=== PATIENT | female | born 1955 | race Caucasian/White ===

== ENCOUNTER → 2017-09-06 | Outpatient (CLI) | payer OTHER ==
[~2017-09-06] MED LIST: ACET-24 PO; ALBUAER2 INH; ASPEC325 PO; CLB200 PO; CYCL10TA6 PO; DIAZ-165 PO; ONDA8TAB6 PO; OXGN; RXC5 PO; SENN-61 PO; SERT-234 PO; TEMA30CA4 PO; TRAM-10 PO; UMEC1AER PO; nebulizer
--- NOTE | 2017-09-06 10:39 | DIAGNOSTIC IMAGING REPORT ---
LEG LENGTH STUDY (WHOLE LEG) HISTORY: 61 years-old Female LEG LENGTH STUDY... Acute left leg pain COMPARISON: PET CT 01/23/2012 TECHNIQUE: 5 radiographs from a leg length study were obtained and submitted for review. FINDINGS: There is avascular arthrosis of the left femoral head with partial articular collapse. Mild degenerative changes about the bilateral femoral acetabular joints. No acute fracture or subluxation is identified. Degenerative changes are also noted within the lower lumbar spine. There are phleboliths of the pelvis. The left lower extremity measured from the femoral head to the tibial plafond measures 84.0 cm. The right lower extremity measured from the femoral head to the tibial plafond measures 84.1 cm. IMPRESSION: 1. Avascular necrosis of the left femoral head with partial articular collapse. 2. Minimal leg length discrepancy as above. The above report was generated using voice recognition software. It may contain grammatical, syntax or spelling errors. Electronically signed by: Braden Rivers M.D. 09/06/2017 10:37 AM Dictated Date/Time: 09/06/2017 10:32 AM
== END | disposition home or self-care (01) ==
LOC: C.RAD 09:35
PROVIDERS: ATTEND Orthopaedic Surgery
DX: M87.052 Idiopathic aseptic necrosis of left femur (principal)

== ENCOUNTER 2017-09-11 04:48 | Inpatient (IN) | payer OTHER ==
[2017-08-18 10:30] VITALS: BMI 26.0
--- NOTE | 2017-08-18 11:12 | PAT Medication Instructions ---
Service Date Aug 18, 2017. Current Home Medication List Albuterol (Ventolin), 2 PUFFS INH QID PRN for SOB/Wheezing Cyclobenzaprine Hcl (Flexeril), 1 TAB PO HS Diazepam (Valium), 5 MG PO QPM Home O2 Therapy (Oxygen), 2 LITERS NA PRN PRN for Shortness of Breath Sertraline (Zoloft), 200 MG PO QAM Temazepam (Restoril), 30 MG PO HS Tramadol (Ultram), 50 MG PO Q6 PRN for Pain Umeclidinium-Vilanterol (Anoro Ellipta 62.5-25 Mcg/INH), 1 PUFF PO QAM Medication Instructions For Your Scheduled Surgery -Continue as directed: Home O2 Therapy (Oxygen), 2 LITERS NA PRN PRN for Shortness of Breath - Take the following medications the morning of surgery with a sip of water: Albuterol (Ventolin), 2 PUFFS INH QID PRN for SOB/Wheezing (if needed, and bring it with you to the hospital) Sertraline (Zoloft), 200 MG PO QAM Tramadol (Ultram), 50 MG PO Q6 PRN for Pain (if needed, can be taken up to four hours before surgery) Umeclidinium-Vilanterol (Anoro Ellipta 62.5-25 Mcg/INH), 1 PUFF PO QAM - Take the following medications as scheduled the night before surgery: Albuterol (Ventolin), 2 PUFFS INH QID PRN for SOB/Wheezing (if needed) Cyclobenzaprine Hcl (Flexeril), 1 TAB PO HS Diazepam (Valium), 5 MG PO QPM Temazepam (Restoril), 30 MG PO HS If you have any questions please call us at [phone] or [phone] or [phone]
[2017-08-18 12:15] LABS: PTT PATIENT 26.4 SECONDS (21.0-31.0)
[2017-08-18 12:44] LABS: HEMOGLOBIN A1C 5.5 % (4.5-5.6)
--- NOTE | 2017-08-24 11:47 | HISTORY & PHYSICAL EXAMINATION ---
DATE OF ADMISSION: 09/11/2017 CHIEF COMPLAINT: Left hip pain. HISTORY OF PRESENT ILLNESS: Ms. Ruiz is a 61-year-old female with a 3-month history of a sudden onset of hip pain. The patient had an MRI, which revealed significant avascular necrosis of the left hip. The patient is essentially wheelchair bound. She does use a cane when she is ambulating. She has done physical therapy and takes tramadol with minimal relief. She has failed conservative treatment and is scheduled for a left hip replacement. PAST MEDICAL HISTORY: Emphysema and anxiety. She denies heart disease, diabetes or DVT. PAST SURGICAL HISTORY: Hysterectomy. SOCIAL HISTORY: The patient denies alcohol or tobacco use. She lives in a [place] home. She is and retired. FAMILY HISTORY: Negative for DVT. MEDICATIONS: Ventolin HFA 90 mcg 2 puffs q. 4-6 hours p.r.n., temazepam 30 mg at bedtime, sertraline 100 mg daily, diazepam 5 mg b.i.d., tramadol 50 mg q. 6 hours p.r.n., cyclobenzaprine 5 mg t.i.d. ALLERGIES: None. REVIEW OF SYSTEMS: See HPI. Ten other systems reviewed, all negative. PHYSICAL EXAMINATION: VITAL SIGNS: Height 5 feet 3 inches, weight 150 pounds, BMI 27. GENERAL: This is a well-developed, well-nourished female who is alert and oriented x3. Mood and affect are appropriate. HEENT: Normocephalic, atraumatic. Mucous membranes are moist and intact. NECK: Supple without lymphadenopathy. HEART: Regular rate and rhythm without murmurs, rubs or gallops. LUNGS: Clear to auscultation without wheezes or rhonchi. ABDOMEN: Soft and nontender. Bowel sounds are equal and active. EXTREMITIES: No ecchymosis, redness or warmth. Thigh and calf are soft and nontender. Log roll of the hip reproduces pain in the groin. She is neurovascularly intact with +5/5 strength. She has full plantar and dorsiflexion. X-RAY EXAMINATION: AP and lateral views show mild joint space narrowing and osteophyte formation. AVN is confirmed on MRI with severe cystic changes. IMPRESSION: Mild degenerative joint disease, left hip with avascular necrosis. PLAN: The patient will be admitted for a left total hip arthroplasty, anterior approach. We will plan on aspirin for DVT prophylaxis. The patient will have [facility] for home physical therapy upon discharge. INGRID
[2017-09-11] VITALS (13 sets, daily range): BP systolic 94–128; BP diastolic 58–78; PULSE 80–93; TEMP 36.6–37.1; O2SAT 92–99; Ht 160 cm; Wt 67.6 kg
[~2017-09-11] VITALS: Ht 160 cm; Wt 67.6 kg
[~2017-09-11 04:48] MED LIST changes: -ACET-24 PO; -ASPEC325 PO; -CLB200 PO; -ONDA8TAB6 PO; -RXC5 PO; -SENN-61 PO; -nebulizer
[2017-09-11] MEDS ORDERED: nebulizer (05:44)
[2017-09-11] MEDS ORDERED: ROPIVACAINE 5MG/ML 30 ML 150 MG, BUPIVACAINE 0.5% MPF INJ 30 ML, EpINEphrine HCL INJ 0.... INFIL SCH ×8 (06:00)
[2017-09-11] MEDS ORDERED: CEFAZOLIN 2000MG IV PUSH 15 ML IV SCH (06:00)
[2017-09-11] MEDS ORDERED: LACTATED RINGER'S 1000ML 500 ML IV SCH (06:00)
[2017-09-11] MEDS ORDERED: DEXAMETHASONE 4 MG TAB PO SCH (06:00)
[2017-09-11] MEDS ORDERED: CEFAZOLIN 1000MG IV PUSH 7.5 ML IV SCH (06:00)
[2017-09-11] MEDS ORDERED: CeleBREX 200 MG CAP PO SCH (06:00)
[2017-09-11] MEDS ORDERED: GABAPENTIN 600 MG PO SCH (06:00)
[2017-09-11] MEDS ORDERED: FAMOTIDINE 20 MG TAB PO SCH (06:00)
[2017-09-11] MEDS ORDERED: LACTATED RINGER'S 1000ML 1,000 ML IV SCH (06:00)
[2017-09-11] MEDS ORDERED: ACETAMINOPHEN 500 MG TAB PO SCH (06:00)
[2017-09-11] MEDS ORDERED: METOCLOPRAMIDE HCL 10 MG TAB PO SCH (06:00)
[2017-09-11] MEDS: TRANEXAMIC ACID INJ 1,000 MG x 2 Bags IV SCH ×4 (06:30→06:54)
[2017-09-11] MEDS ORDERED: ORTHO JOINT ANESTHETIC ONE (06:34)
[2017-09-11] MEDS ORDERED: BACITRACIN 50000 UNIT VIAL ONE (06:34)
[2017-09-11] MEDS ORDERED: POVIDONE-IODINE OP SOLN 30 ML BTL ONE (06:34)
[2017-09-11] MEDS ORDERED: BUPIVACAINE 0.5 % 5 MG/1 ML PF 10ML VIAL ONE (06:37)
[2017-09-11] MEDS ORDERED: MIDAZOLAM HCL 1 MG/ML 2ML VIAL ONE (06:41)
[2017-09-11] MEDS ORDERED: ATROPINE SULFATE 0.1 MG/ML 5ML SYR IV PRN (06:45)
[2017-09-11] MEDS ORDERED: FENTANYL CITRATE INJ 50 MCG/1 ML 2 ML VIAL IV PRN (06:45)
[2017-09-11] MEDS ORDERED: EpHEDrine SULFATE INJ 50 MG/ML AMP IV PRN (06:45)
[2017-09-11] MEDS ORDERED: ALBUT/IPRATROP 3MG/0.5MG NEB 3 ML VIAL INH ONE (06:45)
--- NOTE | 2017-09-11 07:02 | History & Physical Bridge Note ---
H&P Re-Evaluation Bridge Note: I have examined the patient, reviewed the History & Physical and in the interval since the performance of the History & Physical I have noted the following changes of clinical significance: No changes noted
[2017-09-11] MEDS ORDERED: PROPOFOL IV EMULSION 10 MG/ML 20 ML VIAL IV ONE ×2 (07:38→09:01)
[2017-09-11] MEDS ORDERED: PHENYLEPHRINE 100MCG/ML 5ML SYR ONE ×2 (07:38→08:42)
[2017-09-11] MEDS ORDERED: LIDOCAINE HCL 2% 2 ML VIAL (20MG/ML) ONE (07:38)
[2017-09-11] MEDS ORDERED: PHENYLEPHRINE HCL INJ 10 MG/ML VIAL ONE (08:42)
--- NOTE | 2017-09-11 09:39 | [facility] Post Operative Brief Note ---
Immediate Operative Summary Operative Date Sep 11, 2017. Pre-Operative Diagnosis Mild Degenerative Joint Disease Left Hip with Avascular Necrosis Post-Operative Diagnosis Mild Degenerative Joint Disease Left Hip with Avascular Necrosis Procedure(s) Performed Left Total Anterior Hip Arthroplasty--Uncemented Surgeon Dr. Varma Entry Writer Surgeon(s) [place] [place] Estimated Blood Loss 125 ml Findings Consistent with Post-Op Diagnosis Fluids (cc crystalloids) 1700 Specimens A. Left Femoral Head Drains None Anesthesia Type MAC Spinal Regional Complication(s) none Disposition Disposition: Recovery Room / PACU
[2017-09-11] MEDS ORDERED: CEFAZOLIN IV 1,000 MG in DEXTROSE 5% 50ML 50 ML IV SCH (10:00)
[2017-09-11] MEDS ORDERED: MoRPHine SULFATE 4 MG/ML 1 ML CARP\\VIAL IV PRN (10:00)
[2017-09-11] MEDS ORDERED: ONDANSETRON INJ 2 MG/ML 2 ML VIAL IV PRN (10:00)
--- NOTE | 2017-09-11 10:07 | [facility] Operative Report ---
Operative Report Operative Date Sep 11, 2017. Pre-Operative Diagnosis Degenerative Joint Disease Left Hip with Avascular Necrosis Post-Operative Diagnosis Degenerative Joint Disease Left Hip with Avascular Necrosis Procedure(s) Performed Left Total Anterior Hip Arthroplasty--Uncemented Surgeon Dr. Varma Caretaker Resort Surgeon(s) [place] Estimated Blood Loss 125 ml Findings see dictated op note Fluids 1700 Specimens A. Left Femoral Head Drains None Anesthesia Type MAC Spinal Regional Complication(s) none Disposition Recovery Room / PACU Indications The patient is a 62-year-old female who presents with debilitating pain secondary to severe left hip AVN. She is mainly isolated to a wheelchair at the time and is unable to bear weight secondary to pain. Radiographically she presents with severe AVN, cortical irregularity of the femoral head and has failed conservative treatment measures including pain control, bisphosphonates, activity modification and protected weightbearing with the use of a cane and wheelchair. The pain is localized to the groin and is increased with activity and weightbearing. It has severely affected and limited her daily activities. She demonstrates painful passive range of motion and limited range of motion, and walks with a severe limp and is fearful of falling. I have indicated her for left anterior total hip arthroplasty. The risks and benefits and complications of total hip replacement include but not limited to blood clots, infection, dislocation, leg length discrepancy, injury to nerve, bone, muscle- tendon, vessels, surrounding soft tissue, failure of the prosthesis, need for additional surgery and . The patient wished to proceed with replacement of the left hip and informed consent was obtained at this time. Description of Procedure COMPONENTS USED: [employer] hip system: Acetabulum size 52, femur size 10 high offset, femoral head is 36, liner 36 x 52, acetabular screw 25 and 20. DESCRIPTION OF PROCEDURE: Following satisfactory spinal, the patient was supine. The right leg was placed in the well leg bolden and the left leg in the traction device. The left leg was prepared with ChloraPrep and draped sterilely. Following a surgical time-out, an anterior approach in the interval between the sartorius and tensor muscles was completed. Circumflex femoral vessels were identified and ligated and anterior capsulotomy was performed revealing the arthritic femoral neck and head. A femoral neck cut was made with reciprocating saw and the bone fragments removed. The acetabular self- retraining retractor was placed. Acetabular reaming was completed under fluoroscopic guidance, a 52 shell was impacted into an anatomic position and secured with a dome screw. Local anesthetic was placed and following irrigation , the polyethylene liner was placed. The femur was placed into position of external rotation, extension and adduction. Femoral canal was prepared up to the size 10 high offset. Trial reduction with a +0 neck length head showed good soft tissue tension, leg lengths restored, and good fit and fill of the proximal canal using fluoroscopic landmarks. The hip was dislocated. The trial component was removed. The final implant was placed. The hip was irrigated and reduced. A Betadine soak was performed. After 3 minutes, the Betadine was irrigated. More local anesthetic was injected in the surround soft tissues. The capsule was then closed with 1-0 Vicryl interrupted. The fascia was closed with a running suture of #1 Vicryl, the subcutaneous tissues with 1 and 2-0 Vicryl and the skin with a running subcuticular stitch of 3-0 V-Loc. Dermabond and a dry dressing were applied. The patient tolerated the procedure well and was transported to PACU in stable condition. Due to the complex nature of the procedure, the entire surgery was performed with the operational assistance of Waleska Llamas PA-C. The assistant golf course superintendent, under direct supervision, was involved in the actual performance of all aspects of the surgical procedure including hemostasis, tissue retraction and incision, instrument management, patient positioning, and wound closure. I attest to the content of the Intraoperative Record and any orders documented therein. Any exceptions are noted below.
--- NOTE | 2017-09-11 10:49 | DIAGNOSTIC IMAGING REPORT ---
SINGLE VIEW PELVIS; SINGLE VIEW LEFT HIP CLINICAL HISTORY: Postoperative examination. FINDINGS: An AP portable view of the hips and pelvis with a crosstable lateral portable view of the left hip are obtained. A bipolar left hip arthroplasty is in near-anatomic alignment. At least 2 cortical lag screws transfix the acetabular cup. No acute fracture is identified. There are expected postoperative changes overlying the left hip including subcutaneous gas and soft tissue swelling. Degenerative sclerosis is noted at the pubic symphysis. IMPRESSION: Expected postoperative findings status post left hip arthroplasty. No acute fracture is seen. Electronically signed by: Logan Munson M.D. 09/11/2017 10:47 AM Dictated Date/Time: 09/11/2017 10:46 AM
--- NOTE | 2017-09-11 12:09 | DIAGNOSTIC IMAGING REPORT ---
L HIP UNILATERAL 1 VIEW CLINICAL HISTORY: LEFT ANTERIOR HIP COMPARISON: None. Discussion: Total left hip prosthetic in good position on this single AP projection. IMPRESSION: Total left hip prosthetic in good position The above report was generated using voice recognition software. It may contain grammatical, syntax or spelling errors. Electronically signed by: Antoine Dolan M.D. 09/11/2017 12:07 PM Dictated Date/Time: 09/11/2017 12:07 PM
--- NOTE | 2017-09-11 12:24 | Anesthesiology Progress Note ---
Anesthesia Post Op Note Date & Time Sep 11, 2017 at 12:24 Vital Signs Pain Intensity: 0.0 Vital Signs Past 12 Hours Date Time Temp Pulse Resp B/P (MAP) Pulse Ox O2 Delivery O2 Flow Rate FiO2 09/11/17 12:13 94 Nasal Cannula 3.0 09/11/17 11:55 Nasal Cannula 09/11/17 11:55 Nasal Cannula 3.0 09/11/17 11:55 37.1 82 20 94/58 (70) 95 Nasal Cannula 3.0 09/11/17 11:40 37.1 84 19 109/65 95 Nasal Cannula 3 09/11/17 11:30 88 17 121/83 94 Nasal Cannula 3 09/11/17 11:20 83 24 92/61 (63) 94 Nasal Cannula 3 09/11/17 11:10 80 20 93/57 (70) 93 Nasal Cannula 3 09/11/17 11:00 79 20 93/57 (62) 95 Nasal Cannula 3 09/11/17 10:50 80 18 93/58 (62) 92 Nasal Cannula 3 09/11/17 10:40 36.1 80 19 99/59 (63) 94 Nasal Cannula 3 09/11/17 10:30 79 18 94/58 (71) 92 Nasal Cannula 2 09/11/17 10:20 89 24 99/54 (77) 97 Oxymask 10 09/11/17 10:10 77 20 107/67 98 Oxymask 10 09/11/17 10:03 37.0 76 18 101/57 96 Oxymask 10 09/11/17 06:55 86 20 96 Nasal Cannula 1.0 09/11/17 05:40 36.7 92 20 128/78 92 Nasal Cannula 1 Notes Mental Status: alert / awake / arousable, participated in evaluation Pt Amnestic to Procedure: Yes Nausea / Vomiting: adequately controlled Pain: adequately controlled Airway Patency, RR, SpO2: stable & adequate BP & HR: stable & adequate Hydration State: stable & adequate Neuraxial Anesthesia: was administered, sensory block is resolving Anesthetic Complications: no major complications apparent
--- NOTE | 2017-09-11 13:42 | Orthopedic Progress Note ---
Orthopedic Progress Note Date of Service Sep 11, 2017. Subjective Additional Notes: Postoperative progress note Patient seen lying in bed comfortably, no acute issues, pain well controlled. Denies shortness of breath chest pain fevers chills nausea vomiting. Objective No apparent distress, alert and oriented 3 Left lower extremity: Neurovascular sensory intact, positive EHL/FHL/GS/TA, sensory intact to light touch grossly, +2 dorsalis pedis pulse, compartments soft nontender, dressing clean dry and intact. Date Time Temp Pulse Resp B/P (MAP) Pulse Ox O2 Delivery O2 Flow Rate FiO2 09/11/17 12:56 89 18 111/63 (79) 97 Nasal Cannula 2.0 09/11/17 12:25 36.6 86 16 101/67 (78) 97 Nasal Cannula 3.0 09/11/17 12:13 94 Nasal Cannula 3.0 09/11/17 11:55 Nasal Cannula 09/11/17 11:55 Nasal Cannula 3.0 09/11/17 11:55 37.1 82 20 94/58 (70) 95 Nasal Cannula 3.0 09/11/17 11:40 37.1 84 19 109/65 95 Nasal Cannula 3 09/11/17 11:30 88 17 121/83 94 Nasal Cannula 3 09/11/17 11:20 83 24 92/61 (63) 94 Nasal Cannula 3 09/11/17 11:10 80 20 93/57 (70) 93 Nasal Cannula 3 09/11/17 11:00 79 20 93/57 (62) 95 Nasal Cannula 3 09/11/17 10:50 80 18 93/58 (62) 92 Nasal Cannula 3 09/11/17 10:40 36.1 80 19 99/59 (63) 94 Nasal Cannula 3 09/11/17 10:30 79 18 94/58 (71) 92 Nasal Cannula 2 09/11/17 10:20 89 24 99/54 (77) 97 Oxymask 10 09/11/17 10:10 77 20 107/67 98 Oxymask 10 09/11/17 10:03 37.0 76 18 101/57 96 Oxymask 10 09/11/17 06:55 86 20 96 Nasal Cannula 1.0 09/11/17 05:40 36.7 92 20 128/78 92 Nasal Cannula 1 Assessment & Plan Assessment: Status post left anterior total hip arthroplasty Plan: -Ancef x 24 -DVT PPX - ASA 325 BID -WBAT LLE -PT/OT -PO XR: Well aligned, well fixed total hip prothesis, without fx or dislocation. -AM labs -DC planning
--- NOTE | 2017-09-11 14:22 | DIAGNOSTIC IMAGING REPORT ---
SINGLE VIEW CHEST CLINICAL HISTORY: Avascular necrosis of the hip. FINDINGS: An AP, portable, upright chest radiograph is compared to study dated 07/28/2015 and correlated with chest CT dated 08/14/2013. The examination is degraded by portable technique and patient rotation. The heart is normal for projection. There are numerous calcified mediastinal and hilar lymph nodes. Hilar adenopathy is not excluded. Numerous calcified granulomas are observed. Advanced emphysema is observed. There is diffuse interstitial thickening and nodularity with areas of massive fibrosis identified in the mid to upper lungs. This has progressed from the 07/28/2015 examination. There is no convincing evidence of superimposed airspace consolidation. No large pleural effusion is identified. No pneumothorax is seen. The skeletal structures are osteopenic. The bony thorax is grossly intact. IMPRESSION: 1. Emphysema. 2. Extensive chronic parenchymal abnormalities as detailed above. This has progressed from 2015, and the appearance suggests progressive massive fibrosis. Clinical correlation will be essential. 3. There is no convincing evidence of superimposed airspace consolidation. Electronically signed by: Logan Munson M.D. 09/11/2017 2:20 PM Dictated Date/Time: 09/11/2017 2:17 PM
[2017-09-11] MEDS: ACETAMINOPHEN 500 MG TAB PO SCH ×2 (14:49→22:24)
[2017-09-11] MEDS: CEFAZOLIN IV 1,000 MG in SYRINGE 0 ML IV SCH ×2 (14:50→22:25)
[2017-09-11] MEDS: KETOROLAC TROMETHAMINE 30 MG/ML VIAL IV. SCH ×2 (15:37→22:24)
--- NOTE | 2017-09-11 15:59 | Medical Consult ---
Consultation Date of Consultation: Sep 11, 2017. Attending Physician: Joe Varma D.O. History of Present Illness 61 years old female with pmhx of emphysema and COPD. remote smoker quit 10 years ago. she had progressive arthritis and failed conservative management. 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 she presented to the hospital for an elective left arthroplasty. she also complained of right sided pleuritic chest pain lasted few seconds, happened multiple times today. on further questioning she reported thick intermittent bloody mucous for the past two weeks. with cough. denies any fever or chills the rest of ROS is negative Social History Smoking Status: Former Smoker Marital Status: Occupation Status: unemployed Allergies Coded Allergies: No Known Allergies (Verified , 09/11/17) Current Inpatient Medications Current Inpatient Medications Medications (Trade) Dose Ordered Sig/Michelle Route Start Time Stop Time Status Last Admin Dose Admin Lactated Ringer's 1,000 ml @ 15 mls/hr Q24H IV 09/11/17 06:00 09/12/17 05:59 Cefazolin Sodium 15 ml @ 3.75 mls/ min PREOP IV 09/11/17 06:00 09/11/17 18:00 09/11/17 07:05 3.75 MLS/MIN Acetaminophen (Tylenol Tab) 1,000 mg PREOP PO 09/11/17 06:00 09/11/17 18:00 09/11/17 05:49 1,000 MG Celecoxib (CeleBREX CAP) 200 mg PREOP PO 09/11/17 06:00 09/11/17 18:00 09/11/17 05:48 200 MG Dexamethasone (Decadron Tab) 8 mg PREOP PO 09/11/17 06:00 09/11/17 18:00 09/11/17 05:48 8 MG Famotidine (Pepcid Tab) 20 mg PREOP PO 09/11/17 06:00 09/11/17 18:00 09/11/17 05:49 20 MG Gabapentin (Neurontin Cap) 600 mg PREOP PO 09/11/17 06:00 09/11/17 18:00 09/11/17 05:49 600 MG Metoclopramide HCl (Reglan Tab) 10 mg PREOP PO 09/11/17 06:00 09/11/17 18:00 09/11/17 05:49 10 MG Albuterol (Ventolin Hfa Inhaler) 2 puffs QID PRN INH 09/11/17 10:00 10/11/17 09:59 Sertraline HCl (Zoloft Tab) 200 mg QAM PO 09/12/17 09:00 10/12/17 08:59 Temazepam (Restoril Cap) 30 mg HS PO 09/11/17 21:00 10/11/17 20:59 Sodium Chloride 1,000 ml @ 100 mls/hr Q10H IV 09/11/17 12:45 09/12/17 12:44 Ketorolac Tromethamine (Toradol Inj) 30 mg Q6H IV. 09/11/17 16:00 09/12/17 15:59 Celecoxib (CeleBREX CAP) 200 mg BID PO 09/12/17 21:00 10/12/17 20:59 Oxycodone HCl (Roxicodone Immediate Rel Tab) 1 TABLET FOR PAIN RATING... Q4H PRN PO 09/11/17 10:00 09/25/17 09:59 Morphine Sulfate (MoRPHine SULFATE INJ) 4 mg Q4 PRN IV 09/11/17 10:00 09/25/17 09:59 Acetaminophen (Tylenol Tab) 1,000 mg Q8H PO 09/11/17 14:00 10/11/17 13:59 09/11/17 14:49 1,000 MG Senna (Senokot Tab) 17.2 mg HS PO 09/11/17 21:00 10/11/17 20:59 Docusate Sodium (coLACE CAP) 100 mg BID PO 09/11/17 21:00 10/11/17 20:59 Diphenhydramine HCl (Benadryl Cap) 25 mg Q8H PRN PO 09/11/17 10:00 10/11/17 09:59 Multivitamins (Multivitamin Tab) 1 tab QAM PO 09/12/17 09:00 10/12/17 08:59 Ondansetron HCl (Zofran Inj) 4 mg Q6H PRN IV 09/11/17 10:00 10/11/17 09:59 Aspirin (Ecotrin Tab) 325 mg BID PO 09/11/17 21:00 10/11/17 20:59 Cefazolin Sodium 1000 mg/Syringe 7.5 ml @ 2.5 mls/min Q8H IV 09/11/17 15:00 09/11/17 23:02 09/11/17 14:50 2.5 MLS/MIN Levofloxacin 500 mg/Prmx 100 ml @ 100 mls/hr Q24H IV 09/11/17 15:45 09/18/17 15:44 UNV Review of Systems Review of system Constitutional: No fever / no chills / no sweats / no weakness / no fatigue Eyes: no blurring of vision / no eye pain / no discharge / no redness ENT: no hearing loss / no epistaxis /no swallowing problems Respiratory: + hemoptysis/ cough / no wheezing / no SOB / no hemoptysis Cardiovascular: pleuritic Chest pain / no lower extremity edema / no palpitation Abdomen: no pain / no nausea / no vomiting / no constipation Musculoskeletal: no joint pain / no muscle pain / no joint swelling Genitourinary: no dysuria / no incontinence / no urinary retention Neurologic: no focal weakness / no numbness/tingling / no ataxia Psychiatric: no depression symptoms / no anxiety / no insomnia Endocrine: no excessive thirst / no excessive urination Hematologic: no abnormal bleeding / no bruising / no LN swelling Skin: No rash / no pallor Physical Exam Date Time Temp Pulse Resp B/P (MAP) Pulse Ox O2 Delivery O2 Flow Rate FiO2 09/11/17 15:01 36.8 93 16 119/61 (80) 97 Nasal Cannula 2.0 09/11/17 13:55 36.6 88 16 110/66 (81) 96 Nasal Cannula 3.0 09/11/17 13:55 92 18 98/68 (78) 96 2.0 09/11/17 12:56 89 18 111/63 (79) 97 Nasal Cannula 2.0 09/11/17 12:25 36.6 86 16 101/67 (78) 97 Nasal Cannula 3.0 09/11/17 12:13 94 Nasal Cannula 3.0 09/11/17 11:55 Nasal Cannula 09/11/17 11:55 Nasal Cannula 3.0 09/11/17 11:55 37.1 82 20 94/58 (70) 95 Nasal Cannula 3.0 09/11/17 11:40 37.1 84 19 109/65 95 Nasal Cannula 3 09/11/17 11:30 88 17 121/83 94 Nasal Cannula 3 09/11/17 11:20 83 24 92/61 (63) 94 Nasal Cannula 3 09/11/17 11:10 80 20 93/57 (70) 93 Nasal Cannula 3 09/11/17 11:00 79 20 93/57 (62) 95 Nasal Cannula 3 09/11/17 10:50 80 18 93/58 (62) 92 Nasal Cannula 3 09/11/17 10:40 36.1 80 19 99/59 (63) 94 Nasal Cannula 3 09/11/17 10:30 79 18 94/58 (71) 92 Nasal Cannula 2 09/11/17 10:20 89 24 99/54 (77) 97 Oxymask 10 09/11/17 10:10 77 20 107/67 98 Oxymask 10 09/11/17 10:03 37.0 76 18 101/57 96 Oxymask 10 09/11/17 06:55 86 20 96 Nasal Cannula 1.0 09/11/17 05:40 36.7 92 20 128/78 92 Nasal Cannula 1 Physical examination General patient appears to be comfortable, not in acute distress HEENT: Atraumatic , normocephalic /no jaundice /no pallor /anicteric /no dry mucous membrane /normal external ear inspection Neck: Supple /no swelling /central trach Heart: S1/S2 normal/regular rate and rhythm/no gallop /no rub /no murmur Lungs: Clear to auscultation bilaterally/normal chest with expansion/no rhonchi/ no rales/no wheezing/no use of accessory muscles of respiration Abdomen: Soft/nontender/no guarding/no rebound/no organomegaly/no pulsatile mass Musculoskeletal: No swelling/no edema/no tenderness/normal range of motion Neuro exam: Awake alert oriented 3/cranial nerves II through XII appear to be intact/sensation intact/moves all extremities/no abnormal movements Psychiatric evaluation: No depressed mood/normal affect Skin: No rash on exposed skin area/no erythema Extremity: Normal pulse/no pitting edema/no clubbing or cyanosis Endocrine/lymphatic: No obvious lymphadenopathy /no lymphedema Laboratory Results Last 24 Hours Test 09/11/17 15:29 09/11/17 15:35 Assessment & Plan 61 years old female with pmhx of emphysema and COPD. remote smoker quit 10 years ago. she had progressive arthritis and failed conservative management. 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 she presented to the hospital for an elective left arthroplasty. complained of right sided pleuritic chest pain lasted few seconds and intermittent thick hemoptysis X 2 weeks Assessment: severe osteoarthritis that failed outpatient conservative measures. Patient presented to the hospital for an elective orthopedic procedure Plan Status post orthopedic procedure, went uneventful full Patient tolerated procedure well with minimal blood loss Appears to be stable chest pain is clearly pleuritic, EKG reviewed, showed non specific st-T wave changes, will trend enz regarding hemoptysis, ordered creatinine level now, if good, will do CTA R/O PE/ Cancer/pneumonia treat with levofloxacin empirically even if no pneumonia on CTA (I will treat as bronchitis, I am being aggressive to protect the new prosthesis ) Continue outpatient medications Follow-up labs Ensure adequate oral/parenteral intake Pain management Physical therapy initiation as per primary orthopedic team DVT prophylaxis as per the choice of primary orthopedic team
[2017-09-11 16:35] LABS: BLOOD UREA NITROGEN 13 mg/dl (7-18); CALCIUM 8.7 mg/dl (8.5-10.1); CARBON DIOXIDE 22 mmol/L (21-32); CREATININE 1.17 mg/dl (0.60-1.20); GLUCOSE 168 mg/dl (70-99); POTASSIUM 3.7 mmol/L (3.5-5.1); SODIUM 138 mmol/L (136-145)
[2017-09-11] MEDS ORDERED: NURSING VERBAL MED ORDER ONE ×2 (16:45→22:15)
[2017-09-11] MEDS: LEVOFLOXACIN / D5W 500 MG in PREMIXED IN D5W 100 ML IV SCH (16:54)
[2017-09-11] MEDS: SODIUM CHLORIDE 0.9% 1000ML 1,000 ML IV SCH (16:56)
[2017-09-11] MEDS ORDERED: DIAZEPAM 5MG TAB PO PRN (17:00)
[2017-09-11] MEDS: IPRATROPIUM BROMIDE NEB SOLN 0.02% 2.5 ML VIAL INH SCH (20:10)
[2017-09-11] MEDS: LEVALBUTEROL 0.63MG/3 ML NEB INH SCH (20:10)
[2017-09-11] MEDS: ASPIRIN 325 MG ECTAB PO SCH (20:58)
[2017-09-11] MEDS: DOCUSATE SODIUM 100 MG CAP PO SCH (20:58)
[2017-09-11] MEDS: SENNA 8.6 MG TAB PO SCH (20:58)
[2017-09-11] MEDS ORDERED: LEVALBUTEROL/IPRATROPIUM NEB INH SCH (21:00)
[2017-09-11] MEDS: TEMAZEPAM 15 MG CAP PO SCH (21:00)
[2017-09-11] MEDS ORDERED: OPTIRAY 320 IV PRN (22:45)
[2017-09-12] VITALS (9 sets, daily range): BP systolic 94–120; BP diastolic 61–81; PULSE 79–98; TEMP 36.5–36.9; O2SAT 94–99
[2017-09-12] MEDS: IPRATROPIUM BROMIDE NEB SOLN 0.02% 2.5 ML VIAL INH SCH ×4 (03:00→19:04)
[2017-09-12] MEDS: LEVALBUTEROL 0.63MG/3 ML NEB INH SCH ×4 (03:00→19:04)
[2017-09-12] MEDS: SODIUM CHLORIDE 0.9% 1000ML 1,000 ML IV SCH (03:53)
[2017-09-12] MEDS: KETOROLAC TROMETHAMINE 30 MG/ML VIAL IV. SCH ×2 (04:23→10:32)
[2017-09-12] MEDS: ACETAMINOPHEN 500 MG TAB PO SCH ×3 (05:40→20:32)
[2017-09-12 06:20] LABS: BASO % 0.2 %; BASO ABS # 0.01 K/uL (0-0.2); EOS % 1.2 %; EOS ABS # 0.08 K/uL (0-0.5); HEMATOCRIT 27.4 % (37-47); HEMOGLOBIN 9.1 g/dL (12.0-16.0); IG# 0.02 K/uL (0.00-0.02); LYMPH % 10.6 %; MEAN CELL VOLUME 83.8 fL (80-100); MEAN CORPUSCULAR HEMOGLOBIN 27.8 pg (25-34); MEAN CORPUSCULAR HGB CONC 33.2 g/dl (32-36); MEAN PLATELET VOLUME 8.5 fL (7.4-10.4); MONO % 7.3 %; MONO ABS # 0.48 K/uL (0.11-0.59); NEUT % 80.4 %; NEUT ABS # 5.29 K/uL (1.4-6.5); PLATELET COUNT 159 K/uL (130-400); RED CELL DISTRIBUTION WIDTH CV 15.3 % (11.5-14.5); RED CELL DISTRIBUTION WIDTH SD 47.1 fL (36.4-46.3); WHITE BLOOD COUNT 6.58 K/uL (4.8-10.8)
[2017-09-12 06:28] LABS: INR 1.1 (0.9-1.1)
[2017-09-12 07:07] LABS: ALBUMIN 2.2 gm/dl (3.4-5.0); CALCIUM 8.3 mg/dl (8.5-10.1); CREATININE 0.79 mg/dl (0.60-1.20); POTASSIUM 3.9 mmol/L (3.5-5.1); TOTAL PROTEIN 5.7 gm/dl (6.4-8.2)
--- NOTE | 2017-09-12 07:59 | Anesthesiology Progress Note ---
Anesthesia Post Op Note Date & Time Sep 12, 2017 at 07:58 Vital Signs Pain Intensity: 2.0 Vital Signs Past 12 Hours Date Time Temp Pulse Resp B/P (MAP) Pulse Ox O2 Delivery O2 Flow Rate FiO2 09/12/17 07:32 81 20 99 Nasal Cannula 2.0 09/12/17 07:08 36.5 83 18 118/81 (93) 96 Nasal Cannula 09/12/17 03:47 36.8 79 17 94/61 (72) 98 Nasal Cannula 2.0 09/11/17 23:32 Nasal Cannula 2.5 09/11/17 23:31 36.7 83 17 94/59 (71) 96 Nasal Cannula 2.0 09/11/17 21:06 98/62 (74) 09/11/17 20:49 36.6 80 16 96/60 (72) 99 2.0 09/11/17 20:14 87 20 98 Nasal Cannula 2.0 Notes Mental Status: alert / awake / arousable Pt Amnestic to Procedure: Yes Nausea / Vomiting: adequately controlled Pain: adequately controlled Airway Patency, RR, SpO2: stable & adequate BP & HR: stable & adequate Hydration State: stable & adequate Neuraxial Anesthesia: was administered, sensory block resolved Anesthetic Complications: pt was receiving her zopinex and atrovent treatments with respiratory therapy. These were scheduled treatments (no acute symptoms)
[2017-09-12] MEDS ORDERED: ASPEC325 PO (08:03)
[2017-09-12] MEDS ORDERED: SENN-61 PO (08:03)
[2017-09-12] MEDS ORDERED: CLB200 PO (08:03)
[2017-09-12] MEDS ORDERED: ONDA-170 PO (08:03)
[2017-09-12] MEDS ORDERED: ACET-24 PO (08:03)
[2017-09-12] MEDS ORDERED: RXC5 PO (08:03)
--- NOTE | 2017-09-12 08:04 | Discharge Instructions ---
Discharge Instructions Date of Service Sep 12, 2017. Admission Reason for Admission: Left Hip Avascular Necrosis Discharge Discharge Diagnosis / Problem: s/p Left PREETI Discharge Goals Goal(s): Decrease discomfort, Improve function, Increase independence Activity Recommendations Activity Limitations: per Instructions/Follow-up section . Instructions / Follow-Up Instructions / Follow-Up ACTIVITY RECOMMENDATIONS: SELF CARE INSTRUCTIONS AFTER TOTAL HIP REPLACEMENT : Direct Anterior Approach Until the incision and soft tissues around your hip have healed, there is a possibility that the hip prosthesis could dislocate. A. Hip flexion ( Up & Down out of chair or steps ) may be difficult. This is normal. B. Numbness in front of the thigh is also normal for a few weeks. C. Use hand rails when walking on stairs. D. Wear low heeled shoes with non-slip soles. E. Be sure that your floors are free of things that could trip you - throw rugs , electrical cords, small objects. Avoid wet and waxed floors, especially with crutches and canes. F. Try to walk several times a day with rest periods between. G. Continue with all the exercises taught to you in the hospital. Again, make walking a part of your daily routine. SPECIAL CARE INSTRUCTIONS: VERY IMPORTANT TO READ AND REVIEW A. You may still be at risk for phlebitis and blood clots. 1. Wear surgical stockings (IOANA hose) for 2 weeks after surgery to improve circulation and reduce swelling. 2. Take Aspirin 325 mg twice daily for 6 weeks or as directed by your doctor. This is your blood thinner. 3. High risk patients may be prescribed a stronger blood thinner if necessary. 4. If you are on Coumadin normally, your family doctor/vp mobile products should monitor your blood work. Expect a phone call the day of or the day after bloodwork is drawn to adjust your dosage. B. You must take antibiotics before having dental work, bladder, bowel and other surgery. Your doctor will provide you with a permanent card to carry describing precautions. C. Call [facility] if you have a fever, redness or swelling around the incision, cloudy drainage from incision, or sudden increase in pain in your hip, not relieved by your regular pain medication. D. Please call the office at if you have any concerns or questions about your operation or recovery. * YOU MAY SHOWER, NO TUB BATHS UNTIL CLEARED BY YOUR DOCTOR. - Keep an extra close eye on the top portion of your incision. Be sure to keep clean & dry. * WEAR IOANA HOSE 20 HOURS PER DAY FOR 2 WEEKS. * YOU MAY PROGRESS FROM A WALKER, TO A CANE, TO INDEPENDENT AT YOUR OWN PACE. * MOST PATIENTS WILL HAVE HOME NURSING FOR THERAPY. IF YOU DECIDE TO DO OUTPATIENT PHYSICAL THERAPY, PLEASE SCHEDULE THIS 3 TIMES PER WEEK. * DERMABOND Prineo- This is a mesh tape dressing that is covered with glue. It should remain in place until the incision is properly healed, usually 10-14 days. This dressing is designed to naturally slough off. You may trim the excess mesh tape as it peels off. Incision may be briefly wet in a shower. Dry immediately by blotting with a clean, dry towel. Do not bath or swim until instructed by your doctor. Do not scratch, rub, or pick at the dressing. Do not apply any topical ointments or lotions until dressing is completely removed and/or instructed by your doctor. There may be a small piece of suture material at one end of your incision. Do not pull or trim this. If it is bothersome or catching on clothing, you may cover it with a band-aid. FOLLOW UP VISIT: If appointment is not already scheduled: Please call [facility] to make a follow-up appointment for 2 weeks after your surgery at . Please make an appointment with your Coin Teller Dr. Almaguer [phone] within 5 days of being discharged. Current Hospital Diet Patient's current hospital diet: AHA Diet (Heart Healthy) Discharge Diet Recommended Diet: Regular Diet Procedures Procedures Performed: Left Total Anterior Hip Arthroplasty--Uncemented Pending Studies Studies pending at discharge: no Laboratory Results Hemoglobin A1c Test 08/18/17 11:21 Range/Units Estimated Average Glucose 111 mg/dl Hemoglobin A1c 5.5 4.5-5.6 % Medical Emergencies . Who to Call and When: Medical Emergencies: If at any time you feel your situation is an emergency, please call 911 immediately. . Non-Emergent Contact Non-Emergency issues call your: Surgeon Call Non-Emergent contact if: you have a fever, temperature is above 101.5, your pain is not controlled, your pain is worsening, your pain is unusual for you, your pain is concerning you, wound has increased drainage, wound has increased redness, wound has increased pain, you have any medication questions . "Provider Documentation" section prepared by Ananya Llamas. . Adventure Guide Recommendations Adventure Guide Recommendations: From Dr. Gutierrez - [facility] Hospitalist - 1. anemia - this means that your red cells are mildly low. There are various causes of anemia. It appears you have folate deficiency and iron deficiency. Please take the following - * folic acid 1mg daily for 2 months; prescription sent to your pharmacy for you * ferrous sulfate 325mg twice a day for 2-3 months; this can be purchased OVER THE COUNTER * iron can cause your stools to look dark - this is normal * it can also cause constipation * please have your iron levels, folate (folic acid) level, and your "CBC" rechecked by your family doctor in the future to ensure these levels are normalizing 2. oxygen - please use the oxygen 2 liters with activity, especially when you leave your home. Do not let anyone smoke in your home or around your oxygen. 3. nosebleed on left nostril - use saline nasal spray frequently to keep the nose moist. If the nose does bleed you can use OVER THE COUNTER afrin nasal spray on a periodic basis. You can place 1 squirt up the left nostril to try and get the nosebleed to stop. Do not use afrin for longer than 3 days. 4. abnormal CAT scan of the lungs, sarcoid & COPD - see Dr. Cote within 1 week to discuss your test results, cultures from the bronchoscopy, etc 5. As orthopedics has already stated NO DRIVING or use of alcohol while taking pain medication as the pain pills can make you tired. Follow all instructions from the orthopedic team regarding what you can and can't do. Keep your appointment with orthopedics as scheduled. Vaibhav Gutierrez MD PA Drug Monitoring Program Search Results: patient reviewed within database, no issues identified
[2017-09-12] MEDS: ASPIRIN 325 MG ECTAB PO SCH ×2 (08:51→20:32)
[2017-09-12] MEDS: MULTIVITAMIN TAB PO SCH (08:51)
[2017-09-12] MEDS: SERTRALINE HCL 100 MG TAB PO SCH (08:51)
[2017-09-12] MEDS: OXYCODONE HCL IR 5 MG TAB (IMMEDIATE RELEASE) PO PRN ×2 (08:52→19:21)
--- NOTE | 2017-09-12 09:14 | Orthopedic Progress Note ---
Orthopedic Progress Note Date of Service Sep 12, 2017. Subjective Post OP Day: 1 Additional Notes: Patient seen laying in bed, undergoing neb treatment. Reported a productive cough, which is currently being evaluated by the medical team. Denies SOB, CP, N/V or feeling lightheaded. Pain is well controlled. No acute issues overnight Objective No apparent distress, alert and oriented 3 Left lower extremity: Neurovascular sensory intact, positive EHL/FHL/GS/TA, sensory intact to light touch grossly, +2 dorsalis pedis pulse, compartments soft nontender, dressing clean dry and intact. Date Time Temp Pulse Resp B/P (MAP) Pulse Ox O2 Delivery O2 Flow Rate FiO2 09/12/17 07:32 81 20 99 Nasal Cannula 2.0 09/12/17 07:08 36.5 83 18 118/81 (93) 96 Nasal Cannula 09/12/17 03:47 36.8 79 17 94/61 (72) 98 Nasal Cannula 2.0 09/11/17 23:32 Nasal Cannula 2.5 09/11/17 23:31 36.7 83 17 94/59 (71) 96 Nasal Cannula 2.0 09/11/17 21:06 98/62 (74) 09/11/17 20:49 36.6 80 16 96/60 (72) 99 2.0 09/11/17 20:14 87 20 98 Nasal Cannula 2.0 09/11/17 15:30 Nasal Cannula 3.0 09/11/17 15:01 36.8 93 16 119/61 (80) 97 Nasal Cannula 2.0 09/11/17 13:55 36.6 88 16 110/66 (81) 96 Nasal Cannula 3.0 09/11/17 13:55 92 18 98/68 (78) 96 2.0 09/11/17 12:56 89 18 111/63 (79) 97 Nasal Cannula 2.0 09/11/17 12:25 36.6 86 16 101/67 (78) 97 Nasal Cannula 3.0 09/11/17 12:13 94 Nasal Cannula 3.0 09/11/17 11:55 Nasal Cannula 09/11/17 11:55 Nasal Cannula 3.0 09/11/17 11:55 37.1 82 20 94/58 (70) 95 Nasal Cannula 3.0 09/11/17 11:40 37.1 84 19 109/65 95 Nasal Cannula 3 3/12/18 11:30 88 17 121/83 94 Nasal Cannula 3 09/11/17 11:20 83 24 92/61 (63) 94 Nasal Cannula 3 09/11/17 11:10 80 20 93/57 (70) 93 Nasal Cannula 3 09/11/17 11:00 79 20 93/57 (62) 95 Nasal Cannula 3 09/11/17 10:50 80 18 93/58 (62) 92 Nasal Cannula 3 09/11/17 10:40 36.1 80 19 99/59 (63) 94 Nasal Cannula 3 09/11/17 10:30 79 18 94/58 (71) 92 Nasal Cannula 2 09/11/17 10:20 89 24 99/54 (77) 97 Oxymask 10 09/11/17 10:10 77 20 107/67 98 Oxymask 10 09/11/17 10:03 37.0 76 18 101/57 96 Oxymask 10 Laboratory Results 24 Hours: Test 09/12/17 05:59 White Blood Count 6.58 K/uL Red Blood Count 3.27 M/uL Hemoglobin 9.1 g/dL Hematocrit 27.4 % Mean Corpuscular Volume 83.8 fL Mean Corpuscular Hemoglobin 27.8 pg Mean Corpuscular Hemoglobin Concent 33.2 g/dl Platelet Count 159 K/uL Mean Platelet Volume 8.5 fL Neutrophils (%) (Auto) 80.4 % Lymphocytes (%) (Auto) 10.6 % Monocytes (%) (Auto) 7.3 % Eosinophils (%) (Auto) 1.2 % Basophils (%) (Auto) 0.2 % Neutrophils # (Auto) 5.29 K/uL Lymphocytes # (Auto) 0.70 K/uL Monocytes # (Auto) 0.48 K/uL Eosinophils # (Auto) 0.08 K/uL Basophils # (Auto) 0.01 K/uL Prothromb Time International Ratio 1.1 Prothrombin Time 11.4 SECONDS Assessment & Plan Assessment: Status post left anterior total hip arthroplasty, POD#1 Plan: -Ancef x 24 -DVT PPX - ASA 325 BID -WBAT LLE -PT/OT -PO XR: Well aligned, well fixed total hip prothesis, without fx or dislocation. -AM labs - hgb: 9.1 -Productive cough - hx of emphysema, follows up with dope pourer, last seen prior to surgery for pre operative clearances. Will follow up medical recs, work up. current o2 sats ranging from 96-99. -DC planning - home with HC once cleared by the medical team.
[2017-09-12] MEDS: DOCUSATE SODIUM 100 MG CAP PO SCH ×2 (11:43→20:30)
[2017-09-12] MEDS: LEVOFLOXACIN / D5W 500 MG in PREMIXED IN D5W 100 ML IV SCH (16:23)
--- NOTE | 2017-09-12 16:52 | DIAGNOSTIC IMAGING REPORT ---
CT ANGIOGRAM OF THE CHEST CLINICAL HISTORY: Hemoptysis. Chronic lung disease. COMPARISON STUDY: Chest CT dated 08/14/2013. TECHNIQUE: Following the IV administration of 102 cc of Optiray 320, CT angiogram of the chest was performed from the upper abdomen to the thoracic inlet utilizing the pulmonary embolus protocol. Images are reviewed in the axial, sagittal, and coronal planes. 3-D MIPS images are created and assessed. IV contrast was administered without complication. A dose lowering technique was utilized adhering to the principles of ALARA. CT DOSE: 263.83 mGy.cm FINDINGS: Thyroid: Imaged portions of the thyroid gland are normal in size and attenuation. Thoracic aorta: The thoracic aorta is normal in caliber and demonstrates standard 3-vessel arch anatomy. No dissection is seen. Pulmonary vasculature: The pulmonary trunk is normal in caliber. There are no filling defects identified in main, lobar, or segmental pulmonary branches to suggest pulmonary embolus. Heart: The heart is normal in size and configuration, and there is trace pericardial effusion. There are coronary artery calcifications. Lungs and pleural spaces: Advanced emphysema is again noted. Small pleural effusions are identified. There are foci of increasing fibrotic change in the mid to upper lungs bilaterally. This has significantly progressed from 08/14/2013. There is relative sparing of the lung bases, where there are changes of miliary micronodularity. Numerous calcified granulomas are observed. Postsurgical changes suggested in the right lung. The trachea is clear. Mediastinum: There are numerous calcified mediastinal lymph nodes. Sobeida: Numerous calcified hilar nodes are identified. Axillae: There is no axillary lymphadenopathy. Upper abdomen: There is a small hiatal hernia. Partially visualized upper abdominal viscera is otherwise within normal limits. Skeletal structures: The Skeletal structures are osteopenic. Advanced arthritic change is seen in the shoulders, right greater than left. Degenerative change and mild hyperkyphosis are seen in the thoracic spine. No lytic or blastic bony lesions are seen. IMPRESSION: 1. There is no evidence of pulmonary embolus in the main, lobar, or segmental pulmonary arteries. 2. Advanced emphysema. 3. Small pleural effusions. 4. Extensive fibrotic change is seen in the mid to upper lungs bilaterally, significantly progressed from 08/14/2013. Additionally, there is miliary nodularity in the lower lobes, calcified pulmonary granulomas, as well as calcified mediastinal and hilar nodes. The appearance suggests progressive massive fibrosis in the setting of a possible pneumoconiosis or less likely changes of chronic cervical lordosis. There is no clear evidence of superimposed pneumonia. Underlying neoplasm would be impossible to exclude but is considered less likely. Correlate with any previous biopsy results. 5. Additional findings as above. Electronically signed by: Logan Munson M.D. 09/12/2017 7:41 AM Dictated Date/Time: 09/12/2017 7:05 AM
--- NOTE | 2017-09-12 17:09 | Hospitalist Progress Note ---
Hospitalist Progress Note Date of Service Sep 12, 2017. (Agnieszka Mahajan PA-C) Subjective Pt evaluation today including: conversation w/ patient, physical exam, chart review, lab review, review of studies, review of inpatient medication list Patient seen and evaluated. No acute events overnight. Awaiting CT to be read. Apparently it was not transcribed into [employer]. Patient has progressive infiltrative changes that have been present for a few years which may be fibrotic in nature. She reports her hemoptysis actually resolved today and she is getting less sputum production. States she has had hemoptysis x 1 week and appeared like bloody air bubbles. She feels that her breathing is a lot better but feels a little SOB. Oxygenating well on RA. Good aeration without wheezing on examination. Hip pain is well controlled. Ambulating well. Plans to return home tomorrow with home services. Constitutional: No fever, No chills Respiratory: + cough, + sputum, + shortness of breath, + hemoptysis ( resolving) Cardiovascular: No chest pain Abdomen: No pain, No nausea, No vomiting, No diarrhea, No constipation Musculoskeletal: No joint pain, No swelling, No calf pain Female : No dysuria Heme: No abnormal bleeding/bruising Skin: No rash (Agnieszka Mahajan PA-C) Medications Current Inpatient Medications Medications (Trade) Dose Ordered Sig/Michelle Route Start Time Stop Time Status Last Admin Dose Admin Albuterol (Ventolin Hfa Inhaler) 2 puffs QID PRN INH 09/11/17 10:00 10/11/17 09:59 Sertraline HCl (Zoloft Tab) 200 mg QAM PO 09/12/17 09:00 10/12/17 08:59 09/12/17 08:51 200 MG Temazepam (Restoril Cap) 30 mg HS PO 09/11/17 21:00 10/11/17 20:59 09/11/17 21:00 30 MG Celecoxib (CeleBREX CAP) 200 mg BID PO 09/12/17 21:00 10/12/17 20:59 Oxycodone HCl (Roxicodone Immediate Rel Tab) 1 TABLET FOR PAIN RATING... Q4H PRN PO 09/11/17 10:00 09/25/17 09:59 09/12/17 08:52 5 MG Morphine Sulfate (MoRPHine SULFATE INJ) 4 mg Q4 PRN IV 09/11/17 10:00 09/25/17 09:59 Acetaminophen (Tylenol Tab) 1,000 mg Q8H PO 09/11/17 14:00 10/11/17 13:59 09/12/17 13:52 1,000 MG Senna (Senokot Tab) 17.2 mg HS PO 09/11/17 21:00 10/11/17 20:59 09/11/17 20:58 17.2 MG Docusate Sodium (coLACE CAP) 100 mg BID PO 09/11/17 21:00 10/11/17 20:59 09/12/17 11:43 100 MG Diphenhydramine HCl (Benadryl Cap) 25 mg Q8H PRN PO 09/11/17 10:00 10/11/17 09:59 Multivitamins (Multivitamin Tab) 1 tab QAM PO 09/12/17 09:00 10/12/17 08:59 09/12/17 08:51 1 TAB Ondansetron HCl (Zofran Inj) 4 mg Q6H PRN IV 09/11/17 10:00 10/11/17 09:59 Aspirin (Ecotrin Tab) 325 mg BID PO 09/11/17 21:00 10/11/17 20:59 09/12/17 08:51 325 MG Levofloxacin 500 mg/Prmx 100 ml @ 100 mls/hr Q24H IV 09/11/17 16:00 09/18/17 15:59 09/12/17 16:23 100 MLS/HR Diazepam (Valium Tab) 5 mg Q12H PRN PO 09/11/17 17:00 10/11/17 16:59 09/11/17 16:52 5 MG Ipratropium Newman (Atrovent 0.02% 0.5MG/2.5ML Neb) 0.5 mg Q6R INH 09/11/17 21:00 10/11/17 20:59 09/12/17 14:32 0.5 MG Levalbuterol (Xopenex 0.63 Mg/ 3 Ml Neb) 0.63 mg Q6R INH 09/11/17 21:00 10/11/17 20:59 09/12/17 14:32 0.63 MG Ioversol (Optiray 320) 100 ml UD PRN IV 09/11/17 22:45 09/15/17 22:44 (Agnieszka Mahajan PA-C) Objective Vital Signs Date Time Temp Pulse Resp B/P (MAP) Pulse Ox O2 Delivery O2 Flow Rate FiO2 09/12/17 14:32 93 20 95 Room Air 09/12/17 11:58 36.9 90 18 100/67 (78) 95 09/12/17 07:45 Room Air 09/12/17 07:32 81 20 99 Nasal Cannula 2.0 09/12/17 07:08 36.5 83 18 118/81 (93) 96 Nasal Cannula 09/12/17 03:47 36.8 79 17 94/61 (72) 98 Nasal Cannula 2.0 09/11/17 23:32 Nasal Cannula 2.5 09/11/17 23:31 36.7 83 17 94/59 (71) 96 Nasal Cannula 2.0 09/11/17 21:06 98/62 (74) 09/11/17 20:49 36.6 80 16 96/60 (72) 99 2.0 09/11/17 20:14 87 20 98 Nasal Cannula 2.0 (Agnieszka Mahajan PA-C) Physical Exam General Appearance: WD/WN, no apparent distress Eyes: sclerae normal ENT: hearing grossly normal Neck: supple, no JVD, trachea midline Respiratory/Chest: lungs clear, normal breath sounds, no respiratory distress, no accessory muscle use Cardiovascular: regular rate, rhythm, no gallop, no murmur Abdomen: normal bowel sounds, non tender, soft Extremities: + pertinent finding (dressing to L hip C/D/I with minimal ecchymosis) Neurologic/Psychiatric: alert, oriented x 3 Skin: normal color, warm/dry (Agnieszka Mahajan PA-C) Laboratory Results Last 24 Hours Test 09/12/17 05:59 White Blood Count 6.58 K/uL Red Blood Count 3.27 M/uL Hemoglobin 9.1 g/dL Hematocrit 27.4 % Mean Corpuscular Volume 83.8 fL Mean Corpuscular Hemoglobin 27.8 pg Mean Corpuscular Hemoglobin Concent 33.2 g/dl Platelet Count 159 K/uL Mean Platelet Volume 8.5 fL Neutrophils (%) (Auto) 80.4 % Lymphocytes (%) (Auto) 10.6 % Monocytes (%) (Auto) 7.3 % Eosinophils (%) (Auto) 1.2 % Basophils (%) (Auto) 0.2 % Neutrophils # (Auto) 5.29 K/uL Lymphocytes # (Auto) 0.70 K/uL Monocytes # (Auto) 0.48 K/uL Eosinophils # (Auto) 0.08 K/uL Basophils # (Auto) 0.01 K/uL RDW Standard Deviation 47.1 fL RDW Coefficient of Variation 15.3 % Immature Granulocyte % (Auto) 0.3 % Immature Granulocyte # (Auto) 0.02 K/uL Prothrombin Time 11.4 SECONDS Prothromb Time International Ratio 1.1 Sodium Level 141 mmol/L Potassium Level 3.9 mmol/L Chloride Level 108 mmol/L Carbon Dioxide Level 26 mmol/L Anion Gap 7.0 mmol/L Blood Urea Nitrogen 13 mg/dl Creatinine 0.79 mg/dl Est Creatinine Clear Calc Drug Dose 67.3 ml/min Estimated GFR () 92.3 Estimated GFR (Non- 79.7 BUN/Creatinine Ratio 16.5 Random Glucose 106 mg/dl Calcium Level 8.3 mg/dl Magnesium Level 2.1 mg/dl Total Bilirubin 0.4 mg/dl Aspartate Amino Transf (AST/SGOT) 15 U/L Alanine Aminotransferase (ALT/SGPT) 10 U/L Alkaline Phosphatase 74 U/L Total Protein 5.7 gm/dl Albumin 2.2 gm/dl Globulin 3.5 gm/dl Albumin/Globulin Ratio 0.6 (Agnieszka Mahajan, PA-C) Assessment and Plan 61 years old female with pmhx of emphysema and COPD. remote smoker quit 10 years ago. she had progressive arthritis and failed conservative management. 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 she presented to the hospital for an elective left arthroplasty. complained of right sided pleuritic chest pain lasted few seconds and intermittent thick hemoptysis X 2 weeks S/P L PREETI: - Pain management, IVF, PT/OT, DVT Prophylaxis per primary - DVT Prophylaxis - 325 mg BID COPD/Emphysema without Exacerbation and Pulmonary Sarcoidosis/Interstitial Lung Disease: - CTA without PE but showing advanced emphysema and progressive fibrotic changes - cannot R/O malignancy and does have smoking history - Reviewed Dr. Cote's outpatient records - previous bx revealed granulomatous pneumonitis and recent PFTs showed significant air trapping - Continue Ventolin and Xopenex nebs - Will continue Levofloxacin 500 mg daily - can cover to 5 days for possible bronchitis - does not appear to be in an exacerbation at this time Pleuritic CP/Hemoptysis: - This is likely in the setting of her interstitial disease - currently resolved - will need to continue to be monitored by pulm as outpatient Disposition: - Recommend continued monitoring as outpatient with pulm - pending no change in medical status she would be cleared from the medical service for D/C. Will re- evaluate her tomorrow AM. Discharge planning: home with home health (Agnieszka Mahajan, PAYaimaC) Attending Attestation: Pt seen/examined, chart reviewed, care plan d/w PA Agnieszka Mahajan. I agree w/ the patel components of her documentation. Pt with scant hemoptysis. No dyspnea at rest. Denies B symptoms at home (no weight loss, sweats, fevers/chills). VSS no fever gen - nad neck - no JVD heart - RRR lungs - exp wheeze, b/l rales in the bases abd - soft, NT, ND, BS+ ext - no edema skin - left thigh incision with dressing intact Hb 9.1 previous Hb of 14 in 2016 A/P: s/p left total hip replacement, POD #1 hemoptysis - etiology uncertain - infectious vs inflammatory vs endobronchial lesion vs other progressive interstitial lung disease on CT chest COPD anemia check sed rate in am due to pulmonary issues check iron studies, b12, folate finish course of levaquin for possible superimposed infectious process of lungs cont pulmonary toilet at minimum we should discuss her CT findings with pulmonary library sales consultant Zina GUTIERREZ MD (Vaibhav Gutierrez MD)
[2017-09-12] MEDS: SENNA 8.6 MG TAB PO SCH (20:30)
[2017-09-12] MEDS: TEMAZEPAM 15 MG CAP PO SCH (20:31)
[2017-09-12] MEDS: CeleBREX 200 MG CAP PO SCH (20:32)
[2017-09-12] MEDS: ALBUTEROL HFA 8 GM INHALER INH PRN (22:10)
[2017-09-13] VITALS (10 sets, daily range): BP systolic 97–110; BP diastolic 60–68; PULSE 85–98; TEMP 36.4–36.9; O2SAT 87–99
[2017-09-13] MEDS: IPRATROPIUM BROMIDE NEB SOLN 0.02% 2.5 ML VIAL INH SCH ×4 (02:02→19:55)
[2017-09-13] MEDS: LEVALBUTEROL 0.63MG/3 ML NEB INH SCH ×4 (02:02→19:55)
[2017-09-13] MEDS: ALBUTEROL HFA 8 GM INHALER INH PRN ×2 (02:53→23:38)
[2017-09-13] MEDS: ACETAMINOPHEN 500 MG TAB PO SCH ×3 (06:17→20:30)
[2017-09-13] MEDS: OXYCODONE HCL IR 5 MG TAB (IMMEDIATE RELEASE) PO PRN ×3 (06:18→20:30)
[2017-09-13 07:47] LABS: HEMATOCRIT 27.5 % (37-47); HEMOGLOBIN 9.2 g/dL (12.0-16.0); MEAN CELL VOLUME 83.8 fL (80-100); MEAN CORPUSCULAR HGB CONC 33.5 g/dl (32-36); MEAN PLATELET VOLUME 8.7 fL (7.4-10.4); PLATELET COUNT 178 K/uL (130-400); RED CELL DISTRIBUTION WIDTH CV 15.7 % (11.5-14.5); RED CELL DISTRIBUTION WIDTH SD 48.2 fL (36.4-46.3); WHITE BLOOD COUNT 6.35 K/uL (4.8-10.8)
[2017-09-13 08:06] LABS: CALCIUM 8.1 mg/dl (8.5-10.1); CREATININE 0.7 mg/dl (0.60-1.20); POTASSIUM 3.7 mmol/L (3.5-5.1)
[2017-09-13] MEDS: ASPIRIN 325 MG ECTAB PO SCH ×2 (08:47→20:29)
[2017-09-13] MEDS: CeleBREX 200 MG CAP PO SCH ×2 (08:47→20:29)
[2017-09-13] MEDS: DOCUSATE SODIUM 100 MG CAP PO SCH ×3 (08:47→20:06)
[2017-09-13] MEDS: SERTRALINE HCL 100 MG TAB PO SCH (08:47)
[2017-09-13] MEDS: MULTIVITAMIN TAB PO SCH (08:47)
--- NOTE | 2017-09-13 09:06 | Orthopedic Progress Note ---
Orthopedic Progress Note Date of Service Sep 13, 2017. Subjective Post OP Day: 2 Reports: feeling well, complaints, pain controlled w PO medications, Denies: chest pain, SOB, nausea / vomiting, calf pain Additional Notes: Patient doing well, no acute issues overnight. Objective No apparent distress, alert and oriented 3 Left lower extremity: Neurovascular sensory intact, positive EHL/FHL/GS/TA, sensory intact to light touch grossly, +2 dorsalis pedis pulse, compartments soft nontender, dressing clean dry and intact. Date Time Temp Pulse Resp B/P (MAP) Pulse Ox O2 Delivery O2 Flow Rate FiO2 09/13/17 08:32 95 Nasal Cannula 2.0 09/13/17 07:56 36.9 90 18 110/60 (77) 95 Nasal Cannula 2.0 09/13/17 07:30 90 18 97 Room Air 09/12/17 23:18 Nasal Cannula 2.0 09/12/17 23:13 36.8 90 16 102/62 (75) 97 Nasal Cannula 2.0 09/12/17 19:06 96 20 95 Room Air 09/12/17 17:14 36.9 98 16 120/78 (92) 94 Room Air 09/12/17 15:45 94 Room Air 09/12/17 14:32 93 20 95 Room Air 09/12/17 11:58 36.9 90 18 100/67 (78) 95 Laboratory Results 24 Hours: Test 09/13/17 07:30 Hematocrit 27.5 % Hemoglobin 9.2 g/dL Assessment & Plan Assessment: Status post left anterior total hip arthroplasty, POD#2 Acute Bronchitis Plan: -Ancef x 24 -DVT PPX - ASA 325 BID -WBAT LLE -PT/OT -PO XR: Well aligned, well fixed total hip prothesis, without fx or dislocation. -AM labs - hgb: 9.2 -Productive cough - hx of emphysema, follows up with neuro intensivist physician, last seen prior to surgery for pre operative clearances. Med recs appreciated, started on levaquin for bronchitis, 5 day course. Recs pulmonology consult to review CTA findings. -DC planning home with home health, today if cleared by medical teams
[2017-09-13] MEDS ORDERED: LVQ500 PO (09:35)
[2017-09-13] MEDS ORDERED: LEVOFLOXACIN 500 MG TAB PO SCH (11:00)
[2017-09-13] MEDS: FERROUS SULFATE 325 MG TAB PO SCH ×2 (11:21→20:29)
--- NOTE | 2017-09-13 12:09 | Pulmonary Consultation ---
History General Date of Service: Sep 13, 2017. Stated Complaint: Left Hip Avascular Necrosis HPI The patient is a 62 year old female who presents to [facility] with complaints of Left Hip Avascular Necrosis. The patient's primary care provider is Jennifer. Dickinson E. PA-C. 62-year-old female with a known history of sarcoidosis who was admitted for an elective left total hip arthroplasty. The procedure went well but on workup the patient had been describing episodes of hemoptysis for the last 2 weeks. She noted this was mostly in the evening she had had episodes where she went through 2-3 napkins clearing out her coughing/hemoptysis. She denied any shortness of breath, fever, chills, pleurisy, unintentional weight loss, classic cardiac chest pain, night sweats or B type symptoms. Patient has been followed by the pulmonary office for multiple years after being diagnosed with sarcoidosis via surgical lung biopsy in the notably has been clinically stable. Current workup EKG 09/11/2017: Normal sinus rhythm, right axis deviation, T-wave changes in the anterior inferior leads ESR: 46 ALB: 2.2 CTA of the chest 09/11/2017 compared to 08/14/2013 o No pulmonary emboli o Signs advanced emphysema Small pleural effusions bilaterally o Extensive fibrotic changes in the mid and upper lung zones bilaterally which is showing significant progression from 06/13/2014 o Bilateral miliary nodularity in the lower lobes o Calcified pulmonary granulomas o Calcified mediastinal hilar adenopathy o Question pneumoconiosis, chronic cervical lordosis Previous pulmonary function studies performed 08/16/2017 as well as 12/21/2011 Overall stable spirometry but there was a drop in her DLCO of approximately 33% over that window. By ATS standards a 10% drop are less than per year is within normal standard peer Past medical history 1. Anxiety 2. Asthma 3. Candidiasis 4. COPD 5. Chronic sinusitis 6. Depression 7. Discussion tube dysfunction 8. Fecal incontinence 9. Insomnia 10. Sarcoidosis/stage IV 11. History of tubular adenoma of the colon 12. Tobacco: Long history of smoking 1-2 PPD for 30 years quit 2009 Past surgical history 1 elbow surgery 2. Hysterectomy 3. Lumbar vertebral fusion 4. Open lung biopsy 5. Right surgical shoulder repair Family history Coronary artery disease/myocardial infarction Anxiety Alcohol abuse Colon cancer Breast cancer Prostate cancer Ovarian cancer COPD Social history Alcohol: Denies history of use or abuse Exercise: Limited secondary to pulmonary diagnosis Tobacco: Former smoker Marital status: Currently Thickened and smoke exposure: None Outpatient medications 1. Anoro-Ellipta 62.5-25 one puff daily 2. Albuterol nebulizer 3. Ventolin HFA #4 sertraline 100 mg daily 5. Temazepam 30 mg nightly 6. Cyclobenzaprine 5 mg 3 times daily as needed 7. Diclofenac 50 mg twice daily 8. Tramadol 50 mg every 6 hours as needed 9. Oxybutynin 5 mg daily 10. Oxygen supplementation 2 L 11. Valium 10 mg Allergies no known allergy Historian: patient, EMS Review of Systems Constitutional: reports: no symptoms Eyes: reports: no symptoms ENT: reports: no symptoms Cardiovascular: reports: no symptoms Respiratory: reports: as stated in HPI Gastrointestinal: reports: no symptoms Genitourinary - Female: reports: no symptoms Musculoskeletal: reports: no symptoms Neurologic: reports: no symptoms Psychiatric: reports: no symptoms Endocrine: no symptoms Hematologic / Lymphatic: no symptoms Allergic / Immunologic: no symptoms Past Medical History Past Medical History: Please refer to HPI Past Surgical History: Please refer to HPI Family History Please refer to HPI Social History Hx Tobacco Use In Past Year?: No (QUIUT 10 YRS AGO) Smoking Status: Former Smoker Marital status: Occupational Status: unemployed Immunizations History of Tetanus Vaccine?: Unknown History of Pneumococcal: No History of Hepatitis B Vaccine: No History of MDRO History of MDRO: No Allergies Coded Allergies: No Known Allergies (Verified , 09/11/17) Current Medications Reported Home Medications Medications Dose Route/Sig Max Daily Dose Days Date Category Levofloxacin 500 Mg Tab 500 Mg PO DAILY@11 5 09/13/17 Rx Zofran (Ondansetron HCl) 8 Mg Tab 8 Mg PO Q8 PRN 09/12/17 Rx Senokot (Senna) 8.6 Mg Tab 17.2 Mg PO HS 14 09/12/17 Rx Oxycodone HCl 5 Mg Tab 5-10 Mg PO Q4H PRN 09/12/17 Rx Celebrex (Celecoxib) 200 Mg Cap 200 Mg PO BID 09/12/17 Rx Aspirin 325 Mg Ectab 325 Mg PO BID 30 09/12/17 Rx Sb Non-Aspirin Extra Stre (Acetaminophen) 500 Mg Tab 1,000 Mg PO Q8H 30 09/12/17 Rx [nebulizer] UD 09/11/17 Reported Ultram (Tramadol HCl) 50 Mg Tab 50 Mg PO Q6 PRN 08/18/17 Reported Flexeril (Cyclobenzaprine Hcl) 10 Mg Tab 1 Tab PO HS 30 08/18/17 Reported Valium (Diazepam) 5 Mg Tab 5 Mg PO QPM 08/18/17 Reported Zoloft (Sertraline HCl) 100 Mg Tab 200 Mg PO QAM 08/25/15 Reported Ventolin (Albuterol) Inh 2 Puffs INH QID PRN 08/25/15 Reported Oxygen Gas 2 Liters NA PRN PRN 08/25/15 Reported Restoril (Temazepam) 30 Mg Cap 30 Mg PO HS 08/25/15 Reported Physical Physical Exam Vital Signs: Date Time Temp Pulse Resp B/P (MAP) Pulse Ox O2 Delivery O2 Flow Rate FiO2 09/13/17 08:32 95 Nasal Cannula 2.0 09/13/17 07:56 36.9 90 18 110/60 (77) 95 Nasal Cannula 2.0 09/13/17 07:36 Room Air 09/13/17 07:30 90 18 97 Room Air 09/12/17 23:18 Nasal Cannula 2.0 09/12/17 23:13 36.8 90 16 102/62 (75) 97 Nasal Cannula 2.0 09/12/17 19:06 96 20 95 Room Air 09/12/17 17:14 36.9 98 16 120/78 (92) 94 Room Air 09/12/17 15:45 94 Room Air 09/12/17 14:32 93 20 95 Room Air General Appearance: WELL-APPEARING, NO APPARENT DISTRESS Head: NORMOCEPHALIC, ATRAUMATIC Eyes: PERRLA, NO DISCHARGE, EOMI, SCLERAE NORMAL ENT: NORMAL EAR EXAM, NORMAL NASAL EXAM, NORMAL MOUTH EXAM, NORMAL THROAT EXAM , NORMAL DENTAL EXAM Neck: NORMAL RANGE OF MOTION, NO TENDERNESS, TRACHEA MIDLINE, NO STRIDOR Respiratory: other (Minimal rhonchi bilaterally) Cardiovasular: REGULAR RATE/RHYTHM, NORMAL S1S2, NO M/G/R, NO MURMUR, NO GALLOP Abdomen: NON TENDER, NORMAL BOWEL SOUNDS, NO REBOUND, NO MASSES, NO GUARDING, NO ORGANOMEGALY Genitourinary - Female: EXTERNAL GENITALIA NORMAL Back: NORMAL INSPECTION, NO MIDLINE TENDERNESS, NO CVA TENDERNESS, NO PARAVERTEBRAL TTP Upper Extremities: NO EDEMA, NO DEFORMITY, NORMAL ROM Lower Extremities: other (Well-healing surgical site in the left lower extremity) Pulses: carotid (R) (2+), carotid (L) (2+), posterior tibial (R), posterior tibial (L) (2+) Neuro: ALERT, ORIENTED x 3, NORMAL MOTOR EXAM, NORMAL SENSATION, NORMAL CEREBELLAR EXAM, NORMAL SPEECH Reflexes: biceps (R) (2+), bicpes (L) (2+), achilles (R) (2+), achilles (L) (2+ ) Babinski Testing: right (downgoing), left (downgoing) Psychiatric: NORMAL AFFECT Diagnostics Labs Results Past 24 Hours Test 09/13/17 07:30 Range/Units White Blood Count 6.35 4.8-10.8 K/uL Red Blood Count 3.28 4.2-5.4 M/uL Hemoglobin 9.2 12.0-16.0 g/dL Hematocrit 27.5 37-47 % Mean Corpuscular Volume 83.8 80-100 fL Mean Corpuscular Hemoglobin 28.0 25-34 pg Mean Corpuscular Hemoglobin Concent 33.5 32-36 g/dl RDW Standard Deviation 48.2 36.4-46.3 fL RDW Coefficient of Variation 15.7 11.5-14.5 % Platelet Count 178 130-400 K/uL Mean Platelet Volume 8.7 7.4-10.4 fL Erythrocyte Sedimentation Rate 46 0-21 mm/hr Sodium Level 138 136-145 mmol/L Potassium Level 3.7 3.5-5.1 mmol/L Chloride Level 106 98-107 mmol/L Carbon Dioxide Level 28 21-32 mmol/L Anion Gap 4.0 3-11 mmol/L Blood Urea Nitrogen 9 7-18 mg/dl Creatinine 0.70 0.60-1.20 mg/dl Est Creatinine Clear Calc Drug Dose 75.9 ml/min Estimated GFR () 106.9 Estimated GFR (Non- 92.2 BUN/Creatinine Ratio 13.5 10-20 Random Glucose 103 70-99 mg/dl Calcium Level 8.1 8.5-10.1 mg/dl Iron Level 14 35-150 mcg/dl Total Iron Binding Capacity 197 250-450 mcg/dl Transferrin 152 200-360 mg/dl Transferrin % Saturation 6 15-50 % Ferritin 121.2 8.0-388.0 ng/ml Vitamin B12 Level 548 211-911 pg/mL Folate 3.57 >5.38 ng/mL Diagnostic Radiology Please refer to HPI EKG Please refer to HPI Impression Assessment and Plan 62-year-old female with history of sarcoidosis admitted for elective hip arthroplasty but a 2 week history of hemoptysis and dyspnea on exertion: 1. Hemoptysis/dyspnea on exertion: Overall the patient has been clinically stable but her pulmonary function studies are worrisome has had a 33% drop in her DLCO over the last 5 years. I am also aware that the patient has had 2 clinical changes with the last 2 weeks with hemoptysis and associated dyspnea. With this in mind I have asked the patient to undergo flexible bronchoscopy with BAL for evaluation of possible infection. #2 sarcoidosis: At this time I had like to obtain an EVON level as well as a 24- hour urine calcium level. During the bronchoscopy I will send off for a CD4/ CD8 ratio level for further evaluation. I also spoke to patient about requiring a more in-depth evaluation with EBUS for her mediastinum and possible transbronchial biopsies in the future. I do not want to move forward with these procedures at this time as the patient just underwent general anesthesia.
--- NOTE | 2017-09-13 16:07 | Hospitalist Progress Note ---
Hospitalist Progress Note Date of Service Sep 13, 2017. (Agnieszka Mahajan PA-C) Subjective Pt evaluation today including: conversation w/ patient, conversation w/ family , physical exam, chart review, lab review, review of studies, review of inpatient medication list Patient seen and evaluated. Reporting feeling about the same breathing majano. Was on supplemental O2 during my visit. Updated at bedside. Plan for bronchoscopy tomorrow to further assess CT findings. Pending the washings may need steroid regimen on D/C Reporting hemoptysis is still resolved. Patient states she has only had this x 1 week but stating she has had hemoptysis x 1 month. Constitutional: No fever, No chills Respiratory: + cough, + dyspnea on exertion, No dyspnea at rest, No hemoptysis Cardiovascular: No chest pain Abdomen: No pain, No nausea, No vomiting, No diarrhea, No constipation, No GI bleeding Musculoskeletal: No swelling, No calf pain Female : No dysuria Heme: No abnormal bleeding/bruising Skin: No rash (Agnieszka Mahajan, SANDRAC) Medications Current Inpatient Medications Medications (Trade) Dose Ordered Sig/Michelle Route Start Time Stop Time Status Last Admin Dose Admin Albuterol (Ventolin Hfa Inhaler) 2 puffs QID PRN INH 09/11/17 10:00 10/11/17 09:59 09/13/17 02:53 2 PUFFS Sertraline HCl (Zoloft Tab) 200 mg QAM PO 09/12/17 09:00 10/12/17 08:59 09/13/17 08:47 200 MG Temazepam (Restoril Cap) 30 mg HS PO 09/11/17 21:00 10/11/17 20:59 09/12/17 20:31 30 MG Celecoxib (CeleBREX CAP) 200 mg BID PO 09/12/17 21:00 10/12/17 20:59 09/13/17 08:47 200 MG Oxycodone HCl (Roxicodone Immediate Rel Tab) 1 TABLET FOR PAIN RATING... Q4H PRN PO 09/11/17 10:00 09/25/17 09:59 09/13/17 13:40 10 MG Morphine Sulfate (MoRPHine SULFATE INJ) 4 mg Q4 PRN IV 09/11/17 10:00 09/25/17 09:59 Acetaminophen (Tylenol Tab) 1,000 mg Q8H PO 09/11/17 14:00 10/11/17 13:59 09/13/17 13:37 1,000 MG Senna (Senokot Tab) 17.2 mg HS PO 09/11/17 21:00 10/11/17 20:59 09/11/17 20:58 17.2 MG Docusate Sodium (coLACE CAP) 100 mg BID PO 09/11/17 21:00 10/11/17 20:59 09/12/17 11:43 100 MG Diphenhydramine HCl (Benadryl Cap) 25 mg Q8H PRN PO 09/11/17 10:00 10/11/17 09:59 Multivitamins (Multivitamin Tab) 1 tab QAM PO 09/12/17 09:00 10/12/17 08:59 09/13/17 08:47 1 TAB Ondansetron HCl (Zofran Inj) 4 mg Q6H PRN IV 09/11/17 10:00 10/11/17 09:59 Aspirin (Ecotrin Tab) 325 mg BID PO 09/11/17 21:00 10/11/17 20:59 09/13/17 08:47 325 MG Diazepam (Valium Tab) 5 mg Q12H PRN PO 09/11/17 17:00 10/11/17 16:59 09/11/17 16:52 5 MG Ipratropium Leola (Atrovent 0.02% 0.5MG/2.5ML Neb) 0.5 mg Q6R INH 09/11/17 21:00 10/11/17 20:59 09/13/17 14:45 0.5 MG Levalbuterol (Xopenex 0.63 Mg/ 3 Ml Neb) 0.63 mg Q6R INH 09/11/17 21:00 10/11/17 20:59 09/13/17 14:45 0.63 MG Ioversol (Optiray 320) 100 ml UD PRN IV 09/11/17 22:45 09/15/17 22:44 Levofloxacin (Levaquin Tab) 500 mg DAILY@11 PO 09/13/17 11:00 09/18/17 10:59 Future Hold Ferrous Sulfate (Feosol Tab) 325 mg BID PO 09/13/17 09:45 10/13/17 09:44 09/13/17 11:21 325 MG Folic Acid (Folvite Tab) 1 mg QAM PO 09/13/17 09:45 10/13/17 09:44 09/13/17 11:47 1 MG (Agnieszka Mahajan PA-C) Objective Vital Signs Date Time Temp Pulse Resp B/P (MAP) Pulse Ox O2 Delivery O2 Flow Rate FiO2 09/13/17 15:32 36.9 91 16 100/64 (76) 90 Room Air 09/13/17 14:45 87 16 97 Nasal Cannula 2.0 09/13/17 12:08 36.4 90 18 110/68 (82) 99 Nasal Cannula 3.0 09/13/17 08:32 95 Nasal Cannula 2.0 09/13/17 07:56 36.9 90 18 110/60 (77) 95 Nasal Cannula 2.0 09/13/17 07:36 Room Air 09/13/17 07:30 90 18 97 Room Air 09/12/17 23:18 Nasal Cannula 2.0 09/12/17 23:13 36.8 90 16 102/62 (75) 97 Nasal Cannula 2.0 09/12/17 19:06 96 20 95 Room Air 09/12/17 17:14 36.9 98 16 120/78 (92) 94 Room Air (Agnieszka Mahajan PA-C) Physical Exam General Appearance: no apparent distress ENT: hearing grossly normal Neck: supple, no JVD, trachea midline Respiratory/Chest: no respiratory distress, no accessory muscle use, + rales ( bases b/l) Cardiovascular: regular rate, rhythm Abdomen: normal bowel sounds, non tender, soft Extremities: no pedal edema Neurologic/Psychiatric: alert Skin: normal color (Agnieszka Mahajan PA-C) Laboratory Results Last 24 Hours Test 09/13/17 07:30 White Blood Count 6.35 K/uL Red Blood Count 3.28 M/uL Hemoglobin 9.2 g/dL Hematocrit 27.5 % Mean Corpuscular Volume 83.8 fL Mean Corpuscular Hemoglobin 28.0 pg Mean Corpuscular Hemoglobin Concent 33.5 g/dl RDW Standard Deviation 48.2 fL RDW Coefficient of Variation 15.7 % Platelet Count 178 K/uL Mean Platelet Volume 8.7 fL Erythrocyte Sedimentation Rate 46 mm/hr Sodium Level 138 mmol/L Potassium Level 3.7 mmol/L Chloride Level 106 mmol/L Carbon Dioxide Level 28 mmol/L Anion Gap 4.0 mmol/L Blood Urea Nitrogen 9 mg/dl Creatinine 0.70 mg/dl Est Creatinine Clear Calc Drug Dose 75.9 ml/min Estimated GFR () 106.9 Estimated GFR (Non- 92.2 BUN/Creatinine Ratio 13.5 Random Glucose 103 mg/dl Calcium Level 8.1 mg/dl Iron Level 14 mcg/dl Total Iron Binding Capacity 197 mcg/dl Transferrin 152 mg/dl Transferrin % Saturation 6 % Ferritin 121.2 ng/ml Vitamin B12 Level 548 pg/mL Folate 3.57 ng/mL (Agnieszka Mahajan PA-C) Assessment and Plan 61 years old female with pmhx of emphysema and COPD. remote smoker quit 10 years ago. she had progressive arthritis and failed conservative management. 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 she presented to the hospital for an elective left arthroplasty. complained of right sided pleuritic chest pain lasted few seconds and intermittent thick hemoptysis X 2 weeks S/P L PREETI: - Pain management, IVF, PT/OT, DVT Prophylaxis per primary - DVT Prophylaxis - 325 mg BID COPD/Emphysema without Exacerbation and Pulmonary Sarcoidosis/Interstitial Lung Disease: - Planning for bronchoscopy on 09/[address] Almaguer - Continue Ventolin and Xopenex nebs - Will continue Levofloxacin 500 mg daily - can cover to 5 days for possible bronchitis -- May consider course of steroids pending bronch Pleuritic CP/Hemoptysis: - Will await bronchoscopy for further evaluation Disposition: - Bronchoscopy in AM - will assess patient after bronchoscopy to decide on discharge tomorrow Continued [facility] stay due to: other (bronchoscopy) Discharge planning: home with home health (Agnieszka Mahajan PA-C) Attending Attestation: Pt seen/examined, chart reviewed, care plan d/w GRUPO Mahajan. I agree w/ the patel components of her documentation. Pt w/o pulmonary complaints today. Hemoptysis is resolved. Minimal cough. Mild left hip pain. VSS no fever gen - nad neck - no JVD heart - RRR lungs - exp wheeze b/l abd - soft, NT, ND, BS+ ext - left thigh edema - mild skin - left thigh incision with dressing intact Hb 9.2 folic acid 3 Fe sat 6% ESR 46 A/P: s/p left total hip replacement, POD #2 - doing well from surgical standpoint hemoptysis - etiology uncertain - infectious vs inflammatory vs endobronchial lesion vs other progressive interstitial lung disease on CT chest COPD anemia - likely due to folate def and iron def sarcoid with prior h/o prednisone use for same pulmonary to perform bronch tomorrow to r/o superimposed atypical infectious process vs sarcoid vs other replace Fe and folate hold levaquin at Dr. Almaguer's request doing well from left hip standpoint Zina GUTIERREZ MD (Vaibhav Gutierrez MD)
[2017-09-13] MEDS ORDERED: SODIUM CHLORIDE 0.45% 1000ML 1,000 ML IV SCH (19:30)
[2017-09-13] MEDS: SENNA 8.6 MG TAB PO SCH (20:06)
[2017-09-13] MEDS: TEMAZEPAM 15 MG CAP PO SCH (20:29)
[2017-09-14] VITALS (15 sets, daily range): BP systolic 89–125; BP diastolic 49–69; PULSE 83–107; TEMP 36.7–37.5; O2SAT 89–97
[2017-09-14] MEDS: IPRATROPIUM BROMIDE NEB SOLN 0.02% 2.5 ML VIAL INH SCH ×4 (03:10→19:59)
[2017-09-14] MEDS: LEVALBUTEROL 0.63MG/3 ML NEB INH SCH ×4 (03:10→19:59)
[2017-09-14] MEDS: ACETAMINOPHEN 500 MG TAB PO SCH ×3 (05:12→21:28)
[2017-09-14 05:52] LABS: HEMOGLOBIN 8.7 g/dL (12.0-16.0); MEAN CELL VOLUME 85.4 fL (80-100); MEAN CORPUSCULAR HEMOGLOBIN 27.5 pg (25-34); MEAN CORPUSCULAR HGB CONC 32.2 g/dl (32-36); MEAN PLATELET VOLUME 8.5 fL (7.4-10.4); PLATELET COUNT 189 K/uL (130-400); RED CELL DISTRIBUTION WIDTH CV 15.4 % (11.5-14.5); RED CELL DISTRIBUTION WIDTH SD 48.9 fL (36.4-46.3); WHITE BLOOD COUNT 4.75 K/uL (4.8-10.8)
[2017-09-14 06:29] LABS: CALCIUM 8.2 mg/dl (8.5-10.1); CREATININE 0.65 mg/dl (0.60-1.20); POTASSIUM 3.8 mmol/L (3.5-5.1)
--- NOTE | 2017-09-14 08:40 | Orthopedic Progress Note ---
Orthopedic Progress Note Date of Service Sep 14, 2017. Subjective Post OP Day: 3 Denies: chest pain, nausea / vomiting, light headedness, calf pain Additional Notes: PATIENT STATES HER PAIN IS MUCH IMPROVED COMPARED TO PREOP. SHE IS STILL HAVING SOME STIFFNESS AND DIFFICULTY MANEUVERING, WHICH IS EXPECTED. STILL ON 2L O2, SCHEDULED FOR DIAGNOSTIC BRONCH THIS AFTEROON. Objective calves soft nontender, N/V intact, hip located, capillary refill less than 2 sec., dressing C/D/I, A&O x3, toes mobile NAD, AOx3 LLE: NVSI +EHL/FHL/TA/GS SILT grossly, CR< 2 seconds, dressing CDI, compartment soft NT Date Time Temp Pulse Resp B/P (MAP) Pulse Ox O2 Delivery O2 Flow Rate FiO2 09/14/17 07:28 90 16 91 Nasal Cannula 2.0 09/14/17 07:25 83 100/63 (75) 93 Nasal Cannula 2.0 09/14/17 07:25 Nasal Cannula 2.0 09/14/17 06:54 36.7 84 18 89/55 (66) 92 Nasal Cannula 2.0 09/14/17 03:10 83 16 94 Nasal Cannula 2.0 09/13/17 23:42 36.8 98 18 97/62 (74) 94 Nasal Cannula 2.0 09/13/17 23:27 Nasal Cannula 2.0 09/13/17 19:56 85 16 87 Room Air 09/13/17 15:32 36.9 91 16 100/64 (76) 90 Room Air 09/13/17 15:15 90 Room Air 09/13/17 14:45 87 16 97 Nasal Cannula 2.0 09/13/17 12:08 36.4 90 18 110/68 (82) 99 Nasal Cannula 3.0 Laboratory Results 24 Hours: Test 09/14/17 05:35 Hematocrit 27.0 % Hemoglobin 8.7 g/dL Prothromb Time International Ratio 1.0 Prothrombin Time 10.6 SECONDS Assessment & Plan Assessment: Status post left anterior total hip arthroplasty, POD#3 Acute Bronchitis Plan: -Ancef x 24, LEVAQUIN ADDED FOR PULM ISSUES, SEE BELOW. -DVT PPX - ASA 325 BID -WBAT LLE -PT/OT -PO XR: Well aligned, well fixed total hip prothesis, without fx or dislocation. -AM labs - Hgb: 8.7 -Productive cough - hx of emphysema, follows up with registered clinical dietitian, last seen prior to surgery for pre operative clearances. Med recs appreciated, started on levaquin for bronchitis, 5 day course. Pulmonary recs appreciated -SCHEDULED FOR BRONCH TODAY. POSSIBLE DC HOME LATER PENDING FINDINGS. -DC planning home with home health, today if cleared by medical teams. ORTHOPEDICALLY STABLE. MAY CONSIDER TRANSFER TO MEDICAL SERVICE IF SHE NEEDS A CONTINUED HOSPITAL STAY.
[2017-09-14] MEDS: DOCUSATE SODIUM 100 MG CAP PO SCH ×2 (08:48→21:27)
[2017-09-14] MEDS: CeleBREX 200 MG CAP PO SCH ×2 (08:48→21:27)
[2017-09-14] MEDS: SERTRALINE HCL 100 MG TAB PO SCH (08:49)
[2017-09-14] MEDS: FERROUS SULFATE 325 MG TAB PO SCH ×2 (08:49→21:28)
[2017-09-14] MEDS: ASPIRIN 325 MG ECTAB PO SCH ×2 (08:49→21:26)
[2017-09-14] MEDS: MULTIVITAMIN TAB PO SCH (08:49)
[2017-09-14] MEDS: ALBUTEROL HFA 8 GM INHALER INH PRN ×2 (09:58→19:20)
--- NOTE | 2017-09-14 11:21 | Hospitalist Progress Note ---
Hospitalist Progress Note Date of Service Sep 14, 2017. (Agnieszka Mahajan PA-C) Subjective Pt evaluation today including: conversation w/ patient, conversation w/ family , physical exam, chart review, lab review, review of inpatient medication list Patient seen and evaluated. No acute events overnight. Patient reporting feeling that her chest is tight and more SOB today. She is on supplemental O2 at 2L. Reporting nasal dryness and some blood with blowing her nose but no hemoptysis. Helped her from chair to bed. Maneuvering quite well on her hip. However with this limited activity she is tachypneic and needed a moment to catch her breath. More wheezing today compared to yesterday. Constitutional: No fever, No chills Respiratory: + cough, + wheezing, + shortness of breath, No sputum, No hemoptysis Cardiovascular: No chest pain Abdomen: No pain, No nausea, No vomiting Heme: No abnormal bleeding/bruising (Agnieszka Mahajan, SANDRAC) Medications Current Inpatient Medications Medications (Trade) Dose Ordered Sig/Michelle Route Start Time Stop Time Status Last Admin Dose Admin Albuterol (Ventolin Hfa Inhaler) 2 puffs QID PRN INH 09/11/17 10:00 10/11/17 09:59 09/14/17 09:58 2 PUFFS Sertraline HCl (Zoloft Tab) 200 mg QAM PO 09/12/17 09:00 10/12/17 08:59 09/13/17 08:47 200 MG Temazepam (Restoril Cap) 30 mg HS PO 09/11/17 21:00 10/11/17 20:59 09/13/17 20:29 30 MG Celecoxib (CeleBREX CAP) 200 mg BID PO 09/12/17 21:00 10/12/17 20:59 09/13/17 20:29 200 MG Oxycodone HCl (Roxicodone Immediate Rel Tab) 1 TABLET FOR PAIN RATING... Q4H PRN PO 09/11/17 10:00 09/25/17 09:59 09/13/17 20:30 10 MG Morphine Sulfate (MoRPHine SULFATE INJ) 4 mg Q4 PRN IV 09/11/17 10:00 09/25/17 09:59 09/13/17 21:56 4 MG Acetaminophen (Tylenol Tab) 1,000 mg Q8H PO 09/11/17 14:00 10/11/17 13:59 09/13/17 20:30 1,000 MG Senna (Senokot Tab) 17.2 mg HS PO 09/11/17 21:00 10/11/17 20:59 09/11/17 20:58 17.2 MG Docusate Sodium (coLACE CAP) 100 mg BID PO 09/11/17 21:00 10/11/17 20:59 09/12/17 11:43 100 MG Diphenhydramine HCl (Benadryl Cap) 25 mg Q8H PRN PO 09/11/17 10:00 10/11/17 09:59 Multivitamins (Multivitamin Tab) 1 tab QAM PO 09/12/17 09:00 10/12/17 08:59 09/13/17 08:47 1 TAB Ondansetron HCl (Zofran Inj) 4 mg Q6H PRN IV 09/11/17 10:00 10/11/17 09:59 Aspirin (Ecotrin Tab) 325 mg BID PO 09/11/17 21:00 10/11/17 20:59 09/13/17 20:29 325 MG Diazepam (Valium Tab) 5 mg Q12H PRN PO 09/11/17 17:00 10/11/17 16:59 09/11/17 16:52 5 MG Ipratropium [place] (Atrovent 0.02% 0.5MG/2.5ML Neb) 0.5 mg Q6R INH 09/11/17 21:00 10/11/17 20:59 09/14/17 07:28 0.5 MG Levalbuterol (Xopenex 0.63 Mg/ 3 Ml Neb) 0.63 mg Q6R INH 09/11/17 21:00 10/11/17 20:59 09/14/17 07:28 0.63 MG Ioversol (Optiray 320) 100 ml UD PRN IV 09/11/17 22:45 09/15/17 22:44 Levofloxacin (Levaquin Tab) 500 mg DAILY@11 PO 09/13/17 11:00 09/18/17 10:59 Future Hold Ferrous Sulfate (Feosol Tab) 325 mg BID PO 09/13/17 09:45 10/13/17 09:44 09/13/17 20:29 325 MG Folic Acid (Folvite Tab) 1 mg QAM PO 09/13/17 09:45 10/13/17 09:44 09/13/17 11:47 1 MG (Agnieszka Mahajan PA-C) Objective Vital Signs Date Time Temp Pulse Resp B/P (MAP) Pulse Ox O2 Delivery O2 Flow Rate FiO2 09/14/17 07:28 90 16 91 Nasal Cannula 2.0 09/14/17 07:25 83 100/63 (75) 93 Nasal Cannula 2.0 09/14/17 07:25 Nasal Cannula 2.0 09/14/17 06:54 36.7 84 18 89/55 (66) 92 Nasal Cannula 2.0 09/14/17 03:10 83 16 94 Nasal Cannula 2.0 09/13/17 23:42 36.8 98 18 97/62 (74) 94 Nasal Cannula 2.0 09/13/17 23:27 Nasal Cannula 2.0 09/13/17 19:56 85 16 87 Room Air 09/13/17 15:32 36.9 91 16 100/64 (76) 90 Room Air 09/13/17 15:15 90 Room Air 09/13/17 14:45 87 16 97 Nasal Cannula 2.0 09/13/17 12:08 36.4 90 18 110/68 (82) 99 Nasal Cannula 3.0 (Agnieszka Mahajan PA-C) Physical Exam General Appearance: + mild distress (with minimal activity - respiratory) ENT: hearing grossly normal Neck: supple, no JVD, trachea midline Respiratory/Chest: no accessory muscle use, + respiratory distress (with minimal activity - none at rest), + decreased breath sounds (diffusely), + wheezing (occ. inspiratory wheeze; scattered exp. wheeze) Cardiovascular: regular rate, rhythm, no gallop, no murmur Abdomen: normal bowel sounds, non tender, soft Extremities: no pedal edema Neurologic/Psychiatric: alert Skin: normal color, warm/dry (Agnieszka Mahajan, GRUPO-C) Laboratory Results Last 24 Hours Test 09/14/17 05:35 White Blood Count 4.75 K/uL Red Blood Count 3.16 M/uL Hemoglobin 8.7 g/dL Hematocrit 27.0 % Mean Corpuscular Volume 85.4 fL Mean Corpuscular Hemoglobin 27.5 pg Mean Corpuscular Hemoglobin Concent 32.2 g/dl RDW Standard Deviation 48.9 fL RDW Coefficient of Variation 15.4 % Platelet Count 189 K/uL Mean Platelet Volume 8.5 fL Prothrombin Time 10.6 SECONDS Prothromb Time International Ratio 1.0 Sodium Level 138 mmol/L Potassium Level 3.8 mmol/L Chloride Level 105 mmol/L Carbon Dioxide Level 28 mmol/L Anion Gap 5.0 mmol/L Blood Urea Nitrogen 11 mg/dl Creatinine 0.65 mg/dl Est Creatinine Clear Calc Drug Dose 81.8 ml/min Estimated GFR () 109.5 Estimated GFR (Non- 94.5 BUN/Creatinine Ratio 17.5 Random Glucose 98 mg/dl Calcium Level 8.2 mg/dl (Agnieszka Mahajan, PA-C) Assessment and Plan 61 years old female with pmhx of emphysema and COPD. remote smoker quit 10 years ago. she had progressive arthritis and failed conservative management. 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 she presented to the hospital for an elective left arthroplasty. complained of right sided pleuritic chest pain lasted few seconds and intermittent thick hemoptysis X 2 weeks S/P L PREETI: STABLE - Pain management, IVF, PT/OT, DVT Prophylaxis per primary - DVT Prophylaxis - 325 mg BID COPD/Emphysema without Exacerbation and Pulmonary Sarcoidosis/Interstitial Lung Disease: - Planning for bronchoscopy today by Dr. Almaguer - await findings of bronch - possible need for steroids - Continue Ventolin and Xopenex nebs Pleuritic CP/Hemoptysis: - Will await bronchoscopy for further evaluation Disposition: - Await bronchoscopy for further recommendations Continued [facility] stay due to: other (scheduled bronchoscopy) Discharge planning: home with home health (Agnieszka Mahajan, PA-C) Attending Attestation: Pt seen/examined, chart reviewed, care plan d/w GRUPO Mahajan. I agree w/ the patel components of her documentation. Pt w/ no new complaints. Feels well. Hemoptysis resolved. Still requiring NC O2. VSS no fever gen - nad neck - no JVD heart - RRR lungs - exp wheeze b/l = no change abd - soft, NT, ND, BS+ ext - trace edema b/l skin - left thigh incision with dressing intact A/P: s/p left total hip replacement, POD #3 - doing well from surgical standpoint hemoptysis - no endobronchial lesions on bronchoscopy today; Dr. Almaguer noted bright red blood in left nare - posterior nose bleeding leading to hemoptysis?? progressive interstitial lung disease on CT chest COPD anemia - likely due to folate def and iron def; cannot rule out anemia of chronic disease sarcoid with prior h/o prednisone use for same hopefully home tomorrow if still requiring o2 in am will need formal 2-step spoke with pulmonary - no abx or steroids at this time Zina GUTIERREZ MD (Vaibhav Gutierrez MD)
[2017-09-14] MEDS ORDERED: MoRPHine SULFATE 2 MG/ML CARP ONE (12:45)
[2017-09-14] MEDS ORDERED: NURSING VERBAL MED ORDER ONE ×2 (12:45→15:15)
[2017-09-14] MEDS ORDERED: OXYMETAZOLINE HCL 0.05% NA SPR 15 ML BTL ONE (14:04)
[2017-09-14] MEDS ORDERED: LIDOCAINE 4% INH SOLN 4 ML BTL TOP ONE (14:04)
--- NOTE | 2017-09-14 14:13 | Pre Sedation Assessment ---
Pre Sedation Assessment General Date of Sedation: Sep 14, 2017. Vital Signs Past 12 Hours Date Time Temp Pulse Resp B/P (MAP) Pulse Ox O2 Delivery O2 Flow Rate FiO2 09/14/17 14:05 97 20 101/67 100 Oxymask 8 09/14/17 14:00 96 20 114/65 98 Nasal Cannula 4 09/14/17 12:36 98/66 (77) 09/14/17 09:36 100 97 09/14/17 07:28 90 16 91 Nasal Cannula 2.0 09/14/17 07:25 83 100/63 (75) 93 Nasal Cannula 2.0 09/14/17 07:25 Nasal Cannula 2.0 09/14/17 06:54 36.7 84 18 89/55 (66) 92 Nasal Cannula 2.0 09/14/17 03:10 83 16 94 Nasal Cannula 2.0 Review Cardiovascular: regular rate, rhythm, no edema, no gallop, no JVD, no murmur, normal peripheral pulses Lungs: chest non-tender, lungs clear, normal breath sounds, no respiratory distress, no accessory muscle use Pre-Sedation Airway Assessment Smoking Status: Former Smoker Hx of difficult intubation: No Short Thick Neck: No Thyro-mental Distance: < or =3 Finger Breadths Oral Cavity: Dentures Mallampati Classification: Class II ASA Classification: Class II NPO Status Date of Last Intake of Fluids: Sep 13, 2017 Time of Last Intake of Fluids: 1899 Date of Last Intake of Solids: Sep 14, 2017 Time of Last Intake of Solids: 1899 Procedure Planning Contraindications for Sedation: None Current Medications Reviewed: Yes Notes The planned sedation has been discussed with the patient. Informed Consent was obtained. I have identified the patient, determined the appropriateness of sedation and have assessed the patient immediately prior to the procedure. All medicine(s) and interventions are by my order.
[2017-09-14] MEDS ORDERED: LIDOCAINE VISCOUS 2% 100ML TOP ONE (14:21)
[2017-09-14] MEDS ORDERED: FENTANYL CITRATE INJ 50 MCG/1 ML 2 ML VIAL IV ONE (14:29)
[2017-09-14] MEDS ORDERED: MIDAZOLAM HCL 5 MG/ML 1 ML VIAL IV ONE (14:29)
[2017-09-14] MEDS ORDERED: LIDOCAINE HCL 2% LOCAL 50ML VIAL INSTIL ONE (14:30)
--- NOTE | 2017-09-14 14:40 | Bronchoscopy Procedure Note ---
Bronchoscopy Procedure Note Procedure: Bronchoscopy, conscious sedation, BAL Consent: Obtained through the patient placed into the chart Pre-procedural diagnosis: hemoptysis Post-procedural diagnosis: Left naris bleeding Start time: 1418 End time: 1434 Total time: 16minutes Analgesia: 2% liquid lidocaine: Via nebulizer 4% gel lidocaine: Via right naris 2% liquid lidocaine: Via bronchoscopy Sedation: Versed IV: 5mg Fentanyl IV: 125g Procedure: The Way[employer]cted video bronchoscope was used for this procedure and passed down through the oral pharynx then retrophlexed: No bleeding posterior naris Left Naris: Bloody plug along the medial wall of the anterior naris Bronchoscope the passed through the right naris: Right naris/posterior naris/posterior oropharynx: Anatomically within normal limits Glottis: Anatomically within normal limits Vocal cords: Proper abduction and abduction, anatomically within normal limits Subglottis/trachea/Michelle: Anatomically within normal limits Right bronchial tree: Right mainstem bronchus: Anatomically within normal limits Right upper lobe: Anatomically within normal limits Bronchus intermedius: Anatomically within normal limits Right middle lobe: Anatomically within normal limits Right lower lobe: distortion of the bronchial rings Findings: No significant findings noted Left bronchial tree: Left mainstem bronchus: distortion of the bronchial rings Left upper lobe: Anatomically within normal limits Lingula: Anatomically within normal limits Left lower lobe: distortion of the bronchial rings Findings: No significant findings noted Bronchial alveolar lavage: LLL EBL: none Complications: None Follow-up: ASU
[2017-09-14] MEDS ORDERED: ALBUT/IPRATROP 3MG/0.5MG NEB 3 ML VIAL INH ONE (15:30)
[2017-09-14] MEDS: OXYCODONE HCL IR 5 MG TAB (IMMEDIATE RELEASE) PO PRN ×2 (16:54→21:32)
--- NOTE | 2017-09-14 17:28 | Pulmonology Progress Note ---
Pulmonary Progress Note Date of Service Sep 14, 2017. Attending Dr. Almaguer Subjective Patient is doing well status post bronchoscopy Objective Patient status post arthroplasty with hemoptysis. She is currently status post bronchoscopy doing well. Vital signs: Stable on 2 L nasal cannula Respiratory: Mild rhonchi appreciated in the left upper lobe Cardiac: S1-S2 regular rate and rhythm distant heart sounds Abdomen: Positive bowel sounds soft nontender Assessment & Plan 62-year-old female status post arthroplasty with discovered hemoptysis over 1 month window: 1. Hemoptysis: Bronchoscopy performed there was no signs of active bleeding within the bronchial trees bilaterally, the trachea or the upper airway such as the naris. There was some old bloody clots appreciated in the proximal portion of the left naris but once again no signs of active bleeding. The patient did note she has had a bloody nose for multiple weeks. This could be the source of the patient's recent hemoptysis but due to her underlying sarcoidosis and notable scarring of her lung via CT of the thorax I suggest the patient is followed closely in the outpatient pulmonary clinic. Signoff: At this time pulmonary will sign off from the case thank you very much. Data Medications: Current Inpatient Medications Medications (Trade) Dose Ordered Sig/Michelle Route Start Time Stop Time Status Last Admin Dose Admin Albuterol (Ventolin Hfa Inhaler) 2 puffs QID PRN INH 09/11/17 10:00 10/11/17 09:59 09/14/17 09:58 2 PUFFS Sertraline HCl (Zoloft Tab) 200 mg QAM PO 09/12/17 09:00 10/12/17 08:59 09/13/17 08:47 200 MG Temazepam (Restoril Cap) 30 mg HS PO 09/11/17 21:00 10/11/17 20:59 09/13/17 20:29 30 MG Celecoxib (CeleBREX CAP) 200 mg BID PO 09/12/17 21:00 10/12/17 20:59 09/13/17 20:29 200 MG Oxycodone HCl (Roxicodone Immediate Rel Tab) 1 TABLET FOR PAIN RATING... Q4H PRN PO 09/11/17 10:00 09/25/17 09:59 09/14/17 16:54 10 MG Morphine Sulfate (MoRPHine SULFATE INJ) 4 mg Q4 PRN IV 09/11/17 10:00 09/25/17 09:59 09/13/17 21:56 4 MG Acetaminophen (Tylenol Tab) 1,000 mg Q8H PO 09/11/17 14:00 10/11/17 13:59 09/13/17 20:30 1,000 MG Senna (Senokot Tab) 17.2 mg HS PO 09/11/17 21:00 10/11/17 20:59 09/11/17 20:58 17.2 MG Docusate Sodium (coLACE CAP) 100 mg BID PO 09/11/17 21:00 10/11/17 20:59 09/12/17 11:43 100 MG Diphenhydramine HCl (Benadryl Cap) 25 mg Q8H PRN PO 09/11/17 10:00 10/11/17 09:59 Multivitamins (Multivitamin Tab) 1 tab QAM PO 09/12/17 09:00 10/12/17 08:59 09/13/17 08:47 1 TAB Ondansetron HCl (Zofran Inj) 4 mg Q6H PRN IV 09/11/17 10:00 10/11/17 09:59 Aspirin (Ecotrin Tab) 325 mg BID PO 09/11/17 21:00 10/11/17 20:59 09/13/17 20:29 325 MG Diazepam (Valium Tab) 5 mg Q12H PRN PO 09/11/17 17:00 10/11/17 16:59 09/11/17 16:52 5 MG Ipratropium [place] (Atrovent 0.02% 0.5MG/2.5ML Neb) 0.5 mg Q6R INH 09/11/17 21:00 10/11/17 20:59 09/14/17 07:28 0.5 MG Levalbuterol (Xopenex 0.63 Mg/ 3 Ml Neb) 0.63 mg Q6R INH 09/11/17 21:00 10/11/17 20:59 09/14/17 07:28 0.63 MG Ioversol (Optiray 320) 100 ml UD PRN IV 09/11/17 22:45 09/15/17 22:44 Levofloxacin (Levaquin Tab) 500 mg DAILY@11 PO 09/13/17 11:00 09/18/17 10:59 Future Hold Ferrous Sulfate (Feosol Tab) 325 mg BID PO 09/13/17 09:45 10/13/17 09:44 09/13/17 20:29 325 MG Folic Acid (Folvite Tab) 1 mg QAM PO 09/13/17 09:45 10/13/17 09:44 09/13/17 11:47 1 MG I & O: 24-Hour Column 09/15/17 07:59 Output Total 600 ml Balance -600 ml Vital Signs: Date Time Temp Pulse Resp B/P (MAP) Pulse Ox O2 Delivery O2 Flow Rate FiO2 09/14/17 17:07 37.1 104 18 105/69 (81) 93 Nasal Cannula 2.0 09/14/17 16:30 36.9 97 16 92/61 (71) 96 Nasal Cannula 3.0 09/14/17 16:05 36.8 97 16 97/63 (74) 94 Nasal Cannula 4.0 09/14/17 15:29 107 16 92 Nasal Cannula 4.0 09/14/17 15:04 36.7 104 18 125/62 (83) 95 Nasal Cannula 09/14/17 14:50 98 20 100/69 96 Nasal Cannula 5 09/14/17 14:45 101 20 119/54 95 Nasal Cannula 5 09/14/17 14:40 101 20 111/73 92 Nasal Cannula 5 09/14/17 14:35 99 20 112/71 94 Oxymask 8 09/14/17 14:30 94 20 92/69 95 Oxymask 8 09/14/17 14:25 96 20 109/70 97 Oxymask 8 09/14/17 14:20 97 20 95/62 100 Oxymask 8 09/14/17 14:15 96 20 110/73 100 Oxymask 8 09/14/17 14:10 95 20 102/70 100 Oxymask 8 09/14/17 14:05 97 20 101/67 100 Oxymask 8 09/14/17 14:00 96 20 114/65 98 Nasal Cannula 4 09/14/17 12:36 98/66 (77) 09/14/17 09:36 100 97 09/14/17 07:28 90 16 91 Nasal Cannula 2.0 09/14/17 07:25 83 100/63 (75) 93 Nasal Cannula 2.0 09/14/17 07:25 Nasal Cannula 2.0 09/14/17 06:54 36.7 84 18 89/55 (66) 92 Nasal Cannula 2.0 09/14/17 03:10 83 16 94 Nasal Cannula 2.0 09/13/17 23:42 36.8 98 18 97/62 (74) 94 Nasal Cannula 2.0 09/13/17 23:27 Nasal Cannula 2.0 09/13/17 19:56 85 16 87 Room Air Laboratory Results: Last 24 Hours Test 09/14/17 05:35 09/14/17 13:40 White Blood Count 4.75 K/uL Red Blood Count 3.16 M/uL Hemoglobin 8.7 g/dL Hematocrit 27.0 % Mean Corpuscular Volume 85.4 fL Mean Corpuscular Hemoglobin 27.5 pg Mean Corpuscular Hemoglobin Concent 32.2 g/dl RDW Standard Deviation 48.9 fL RDW Coefficient of Variation 15.4 % Platelet Count 189 K/uL Mean Platelet Volume 8.5 fL Prothrombin Time 10.6 SECONDS Prothromb Time International Ratio 1.0 Sodium Level 138 mmol/L Potassium Level 3.8 mmol/L Chloride Level 105 mmol/L Carbon Dioxide Level 28 mmol/L Anion Gap 5.0 mmol/L Blood Urea Nitrogen 11 mg/dl Creatinine 0.65 mg/dl Est Creatinine Clear Calc Drug Dose 81.8 ml/min Estimated GFR () 109.5 Estimated GFR (Non- 94.5 BUN/Creatinine Ratio 17.5 Random Glucose 98 mg/dl Calcium Level 8.2 mg/dl Urine Calcium mg% < 5.0 mg/dl
[2017-09-14 18:18] LABS: BASO % 0.5 %; BASO ABS # 0.03 K/uL (0-0.2); EOS % 4.7 %; EOS ABS # 0.28 K/uL (0-0.5); HEMATOCRIT 30.5 % (37-47); HEMOGLOBIN 9.9 g/dL (12.0-16.0); IG# 0.01 K/uL (0.00-0.02); LYMPH % 12.9 %; LYMPH ABS # 0.77 K/uL (1.2-3.4); MEAN CELL VOLUME 84.3 fL (80-100); MEAN CORPUSCULAR HEMOGLOBIN 27.3 pg (25-34); MEAN CORPUSCULAR HGB CONC 32.5 g/dl (32-36); MEAN PLATELET VOLUME 9.2 fL (7.4-10.4); MONO % 6.1 %; MONO ABS # 0.36 K/uL (0.11-0.59); NEUT % 75.6 %; PLATELET COUNT 249 K/uL (130-400); RED CELL DISTRIBUTION WIDTH CV 15.4 % (11.5-14.5); RED CELL DISTRIBUTION WIDTH SD 47.7 fL (36.4-46.3); WHITE BLOOD COUNT 5.95 K/uL (4.8-10.8)
[2017-09-14 18:36] LABS: CALCIUM 8.7 mg/dl (8.5-10.1); CREATININE 0.67 mg/dl (0.60-1.20); POTASSIUM 3.6 mmol/L (3.5-5.1)
[2017-09-14] MEDS: SENNA 8.6 MG TAB PO SCH (21:27)
[2017-09-14] MEDS: TEMAZEPAM 15 MG CAP PO SCH (21:32)
[2017-09-15 02:05] VITALS: PULSE 80; O2SAT 95
[2017-09-15] MEDS: LEVALBUTEROL 0.63MG/3 ML NEB INH SCH ×2 (02:05→07:54)
[2017-09-15] MEDS: IPRATROPIUM BROMIDE NEB SOLN 0.02% 2.5 ML VIAL INH SCH ×2 (02:05→07:54)
[2017-09-15 04:08] VITALS: BP 94/62; PULSE 87; TEMP 36.9; O2SAT 92
[2017-09-15] MEDS: ACETAMINOPHEN 500 MG TAB PO SCH (05:30)
[2017-09-15 07:45] VITALS: BP_SYST 102; BP_SYST 92; BP_DIAS 52; BP_DIAS 66; PULSE 84; TEMP 36.7; O2SAT 94
[2017-09-15 07:56] VITALS: PULSE 80; O2SAT 95
[2017-09-15] MEDS: DOCUSATE SODIUM 100 MG CAP PO SCH (08:26)
[2017-09-15] MEDS: CeleBREX 200 MG CAP PO SCH (08:26)
[2017-09-15] MEDS: ASPIRIN 325 MG ECTAB PO SCH (08:26)
[2017-09-15] MEDS: FERROUS SULFATE 325 MG TAB PO SCH (08:27)
[2017-09-15] MEDS: MULTIVITAMIN TAB PO SCH (08:27)
[2017-09-15] MEDS: SERTRALINE HCL 100 MG TAB PO SCH (08:27)
[2017-09-15 08:53] VITALS: O2SAT 94
--- NOTE | 2017-09-15 09:00 | Orthopedic Progress Note ---
Orthopedic Progress Note Date of Service Sep 15, 2017. Subjective Post OP Day: 4 Reports: feeling well Additional Notes: Has some mild thigh pain off and on with ambulation but otherwise, she feels well. No new complaints. Objective calves soft nontender, N/V intact, hip located, incision C/D/I, A&O x3, toes mobile Date Time Temp Pulse Resp B/P (MAP) Pulse Ox O2 Delivery O2 Flow Rate FiO2 09/15/17 07:56 80 16 95 Nasal Cannula 2.0 09/15/17 07:45 36.7 84 18 102/66 (78) 94 Nasal Cannula 2.0 92/52 (65) 09/15/17 07:21 Nasal Cannula 2.0 09/15/17 04:08 36.9 87 18 94/62 (73) 92 Nasal Cannula 2.0 09/15/17 02:05 80 16 95 Nasal Cannula 2.0 09/15/17 00:45 Room Air 09/14/17 22:52 36.9 96 18 115/49 (71) 90 Nasal Cannula 2.0 09/14/17 19:49 96 16 95 Nasal Cannula 2.0 09/14/17 19:13 95 Nasal Cannula 2.0 09/14/17 19:11 37.5 95 18 99/64 (76) 89 Room Air 09/14/17 17:07 37.1 104 18 105/69 (81) 93 Nasal Cannula 2.0 09/14/17 16:30 36.9 97 16 92/61 (71) 96 Nasal Cannula 3.0 09/14/17 16:05 36.8 97 16 97/63 (74) 94 Nasal Cannula 4.0 09/14/17 15:29 107 16 92 Nasal Cannula 4.0 09/14/17 15:20 Nasal Cannula 4.0 09/14/17 15:04 36.7 104 18 125/62 (83) 95 Nasal Cannula 09/14/17 14:50 98 20 100/69 96 Nasal Cannula 5 09/14/17 14:45 101 20 119/54 95 Nasal Cannula 5 09/14/17 14:40 101 20 111/73 92 Nasal Cannula 5 09/14/17 14:35 99 20 112/71 94 Oxymask 8 09/14/17 14:30 94 20 92/69 95 Oxymask 8 09/14/17 14:25 96 20 109/70 97 Oxymask 8 09/14/17 14:20 97 20 95/62 100 Oxymask 8 09/14/17 14:15 96 20 110/73 100 Oxymask 8 09/14/17 14:10 95 20 102/70 100 Oxymask 8 09/14/17 14:05 97 20 101/67 100 Oxymask 8 09/14/17 14:00 96 20 114/65 98 Nasal Cannula 4 09/14/17 12:36 98/66 (77) 09/14/17 09:36 100 97 Laboratory Results 24 Hours: Test 09/14/17 18:06 White Blood Count 5.95 K/uL Red Blood Count 3.62 M/uL Hemoglobin 9.9 g/dL Hematocrit 30.5 % Mean Corpuscular Volume 84.3 fL Mean Corpuscular Hemoglobin 27.3 pg Mean Corpuscular Hemoglobin Concent 32.5 g/dl Platelet Count 249 K/uL Mean Platelet Volume 9.2 fL Neutrophils (%) (Auto) 75.6 % Lymphocytes (%) (Auto) 12.9 % Monocytes (%) (Auto) 6.1 % Eosinophils (%) (Auto) 4.7 % Basophils (%) (Auto) 0.5 % Neutrophils # (Auto) 4.50 K/uL Lymphocytes # (Auto) 0.77 K/uL Monocytes # (Auto) 0.36 K/uL Eosinophils # (Auto) 0.28 K/uL Basophils # (Auto) 0.03 K/uL Assessment & Plan Assessment: Status post left anterior total hip arthroplasty, POD#4 Acute Bronchitis Plan: -DVT PPX - ASA 325 BID -WBAT LLE -PT/OT -PO XR: Well aligned, well fixed total hip prothesis, without fx or dislocation. -AM labs - Hgb: 9.9 today -Pulmonary has signed off. Pt to follow up in 1 week. -DC planning home with home health; plan for dc today Inhouse Planning Pain Management: Celebrex, Morphine, PO Tylenol, Oxy IR DVT Prophylaxis: TEDs, SCDs, ASA Discharge Planning Discharge Planning: home with home health Pain Management: Celebrex, PO Tylenol, Oxy IR DVT Prophylaxis: TEDs, ASA Therapy: Physical Therapy
[2017-09-15] MEDS: ALBUTEROL HFA 8 GM INHALER INH PRN (09:34)
[2017-09-15 12:02] VITALS: BP 112/82; PULSE 90; TEMP 36.6; O2SAT 94
[2017-09-15] MEDS ORDERED: FRRS300 PO (12:20)
[2017-09-15] MEDS ORDERED: FLV1 PO (12:20)
--- NOTE | 2017-09-15 20:29 | Progress Note ---
Subjective Date of Service: Sep 15, 2017. Subjective Pt evaluation today including: conversation w/ patient, conversation w/ family ( at bedside), physical exam, chart review, lab review, review of studies (2-step O2 test), conversation w/ leadership development consultant (ortho), review of inpatient medication list Pain: left hip but very mild PO Intake: normal Voiding: no voiding problems anxious to go home two step O2 test completed - needs 2 L NC w/ activity, none with rest she already has portable O2 at home denies any further hemoptysis has had minimal bloody drainage from left nostril no other complaints Review of Systems Constitutional: No fever Respiratory: No cough, No sputum Cardiac: No chest pain, No orthopnea Abdomen: No pain Objective Vital Signs Date Time Temp Pulse Resp B/P (MAP) Pulse Ox O2 Delivery O2 Flow Rate FiO2 09/15/17 12:02 36.6 90 14 112/82 (92) 94 Nasal Cannula 2.0 09/15/17 12:00 36.7 80 16 94 Room Air Nasal Cannula 09/15/17 08:53 94 Nasal Cannula 2.0 09/15/17 07:56 80 16 95 Nasal Cannula 2.0 09/15/17 07:45 36.7 84 18 102/66 (78) 94 Nasal Cannula 2.0 92/52 (65) 09/15/17 07:21 Nasal Cannula 2.0 09/15/17 04:08 36.9 87 18 94/62 (73) 92 Nasal Cannula 2.0 09/15/17 02:05 80 16 95 Nasal Cannula 2.0 09/15/17 00:45 Room Air 09/14/17 22:52 36.9 96 18 115/49 (71) 90 Nasal Cannula 2.0 Physical Exam General Appearance: no apparent distress ENT: pharynx normal, + pertinent finding (nose - severe deviated septum with shift to the right; left nare - inferior turbinate with blood but no active oozing ) Neck: no JVD Respiratory/Chest: no respiratory distress, no accessory muscle use, + wheezing Cardiovascular: regular rate, rhythm, no gallop, no murmur Abdomen: normal bowel sounds, non tender, soft, no organomegaly Extremities: no pedal edema Neurologic/Psychiatric: alert, oriented x 3 Skin: + pallor Assessment and Plan 62yo female with: 1. s/p left total hip replacement, POD #4 - doing well from surgical standpoint. To have f/u with ortho as scheduled. 2. hemoptysis - resolved - no endobronchial lesions on bronchoscopy by Dr. Almaguer. Possibly the left nostril was the source (posterior nose bleeding leading to hemoptysis??). Cultures from bronch thus far negative. 3. progressive interstitial lung disease on CT chest / COPD - to have f/u with Dr. Cote next week. Finish levaquin course. 4. anemia - likely due to folate def and iron def; cannot rule out anemia of chronic disease; d/c home with folic acid x 2 months and Fe supplementation x 2- 3 months. 5. sarcoid with prior h/o prednisone use for same - EVON level wnl; 24-hour calcium collection wnl. F/u with Dr. Cote next week. 6. hypoxia - 2nd to #3 - needs ambulatory O2, 2 L w/ activity. can d/c home today from medical standpoint has all O2 supplies already at her house Discharge planning: home with home health
== END 2017-09-15 13:32 | disposition home health service (06) | DRG 470 ==
LOC: C.ACU 04:48 → C.3E 09:54 → ENRESERV 10:29
PROVIDERS: ADMIT Orthopaedic Surgery; ATTEND Orthopaedic Surgery
PROC: 0SRB0JA Replacement of Left Hip Joint with Synthetic Substitute, Uncemented, Open Approach (ICD-10-PCS; principal; 2017-09-11 07:00)
PROC: 0B9J8ZX Drainage of Left Lower Lung Lobe, Via Natural or Artificial Opening Endoscopic, Diagnostic (ICD-10-PCS; 2017-09-14)
DX: M16.12 Unilateral primary osteoarthritis, left hip (principal); M87.052 Idiopathic aseptic necrosis of left femur; R04.2 Hemoptysis; D86.0 Sarcoidosis of lung; J20.9 Acute bronchitis, unspecified; J43.9 Emphysema, unspecified; R07.81 Pleurodynia; D50.9 Iron deficiency anemia, unspecified; R09.02 Hypoxemia; F41.9 Anxiety disorder, unspecified; Z79.899 Other long term (current) drug therapy; Z87.891 Personal history of nicotine dependence

== ENCOUNTER 2018-10-14 10:24 | Inpatient (IN) ==
[2018-10-14] MEDS ORDERED: methylPREDNISolone 125 MG/2 ML VIAL IV STA (10:54)
[2018-10-14] MEDS ORDERED: ALBUT/IPRATROP 3MG/0.5MG NEB 3 ML VIAL NEB ONE (10:54)
--- NOTE | 2018-10-14 11:20 | XRay Report ---
XR chest 1V portable CLINICAL HISTORY: SHOB dyspnea COMPARISON STUDY: 09/11/2017 FINDINGS: Emphysematous change. Bilateral hilar fullness considered chronic. No acute infiltrate. Diaphragms are smooth. IMPRESSION: Emphysematous change. Chronic change. No acute process. The above report was generated using voice recognition software. It may contain grammatical, syntax or spelling errors. Electronically signed by: Antoine Dolan M.D. 10/14/2018 11:19 AM
[2018-10-14 11:28] LABS: Basophils # (auto) 0.03 K/uL (0-0.2); Basophils % (auto) 0.3 %; Eosinophils # (auto) 0.07 K/uL (0-0.5); Eosinophils % (auto) 0.8 %; Hematocrit (blood only) 44.4 % (37-47); Immature Granulocytes # (auto) 0.03 K/uL (0.00-0.02); Immature Granulocytes % (auto) 0.3 %; Lymphocytes # (auto) 0.63 K/uL (1.2-3.4); Lymphocytes % (auto) 7.3 %; Mean Corpuscular Hgb Conc 33.8 g/dL (32-36); Mean Corpuscular Volume 92.9 fL (80-100); Mean Platelet Volume 9.9 fL (7.4-10.4); Monocytes # (auto) 0.46 K/uL (0.11-0.59); Monocytes % (auto) 5.3 %; Neutrophils # (auto) 7.38 K/uL (1.4-6.5); Platelet Count 148 K/uL (130-400); RDW Coefficient of Variation 13.9 % (11.5-14.5); RDW Standard Deviation 47.4 fL (36.4-46.3); Red Blood Count 4.78 M/uL (4.2-5.4)
[2018-10-14 11:32] LABS: Base Excess VBG 2.1 mEq/L; Oxygen Saturation VBG 78.2 %; pH VBG 7.45 (7.36-7.41)
[2018-10-14 11:45] LABS: BUN Creatinine Ratio 29.4 (10-20); Blood Urea Nitrogen 23 mg/dl (7-18); Calcium 9.5 mg/dl (8.5-10.1); Carbon Dioxide 26 mmol/L (21-32); Chloride 106 mmol/L (98-107); Est GFR (African American) 94.6; Est GFR (Non-African American) 81.6; Glucose 104 mg/dl (70-99); Magnesium 2.2 mg/dl (1.8-2.4); Potassium 3.9 mmol/L (3.5-5.1); Sodium 139 mmol/L (136-145)
[2018-10-14 11:50] LABS: Troponin I < 0.015 ng/ml (0-0.045)
[2018-10-14] MEDS ORDERED: DOXYCYCLINE HYCLATE 100 MG in DEXTROSE 5% 100 ML IV STA (12:01)
[2018-10-14 13:21] LABS: Influenza A virus by PCR Neg for Influ A (Neg); Influenza B virus by PCR Neg for Influ B (Neg)
[2018-10-14] MEDS ORDERED: ACETAMINOPHEN 325 MG TAB PO PRN (13:43)
[2018-10-14] MEDS ORDERED: CYCLOBENZAPRINE HCL 10 MG TAB PO PRN (13:43)
[2018-10-14] MEDS ORDERED: ONDANSETRON INJ 2 MG/ML 2 ML VIAL IV PRN (13:43)
[2018-10-14] MEDS ORDERED: POLYETHYLENE (MIRALAX) 17 GM PACK PO PRN (13:43)
--- NOTE | 2018-10-14 13:43 | History & Physical Report ---
Date of Service October 14, 2018 Assessment & Plan (1) COPD exacerbation: This is a 63-year-old female with a PMH of COPD, anxiety, depression and tobacco use disorder who presents with COPD exacerbation after failed outpatient treatment. -Recently completed medrol dosepack and Z pack without improvement of symptoms -Respiratory status improved after hour-long neb treatment in ED, oxygen saturation 94% on room air -Diffuse wheezing on lung exam, CXR with emphysematous changes -No leukocytosis or evidence of PNA on CXR. Flu PCR pending -Will continue IV Solu-Medrol at 40 mg every 8 hours, IV Levaquin, scheduled Duonebs -Continue Anoro Ellipta and Ventolin inhaler as needed (2) Tobacco use disorder: Had quit for 13 years, but resumed smoking 2 months ago -Interested in cessation -Nicotine patch as needed (3) Depression: Stable, continue sertraline (4) Anxiety: Continue sertraline, BuSpar, Ativan as needed DVT Ppx: SQ Lovenox Code status: FULL PCP: Josué in [place] Dispo: Obs med tele. Plan to return home once medically stable. Patient seen in collaboration with Dr. Colón. Please see addendum. History of Present Illness Chief Complaint: Shortness of breath Primary Care Provider: Johnnie Moses MD This is a 63-year-old female with a PMH of COPD, anxiety, depression and tobacco use disorder who presents with COPD exacerbation after failed outpatient treatment. Patient began to experience symptoms of cough, phlegm production, shortness of breath and pleuritic chest pain at the beginning of October and was prescribed with a Medrol Dosepak and course of azithromycin by outpatient provider. Symptoms did not improve and have worsened over the past week. Endorses chills, continued shortness of breath, wheezing and cough with white sputum production. Also of note, patient began to smoke 2 months ago after having quit for 13 years. Has been using albuterol nebulizer twice a day at home as well as Ventolin inhaler as needed and an oral Ellipta daily. Follows with Dr. Cote in pulm clinic. Found to be hemodynamically stable upon arrival. Oxygen saturation stable on ro om air at 94%. Patient visibly working to breathe, but efforts improved after hour-long breathing treatment in ED. Was also given 125 mg IV Solu-Medrol. Will be admitted for further treatment of COPD exacerbation with IV Solu-Medrol, antibiotics and scheduled DuoNeb treatments. Allergies Allergy/AdvReac Type Severity Reaction Status Date / Time No Known Allergies Allergy Unknown Verified 10/14/18 11:48 Home Medications Home Medications Medication Instructions Recorded Confirmed Type albuterol sulfate 2.5 mg INHALATION QID PRN 10/14/18 10/14/18 History albuterol sulfate [Ventolin HFA] 2 puff INHALATION QID PRN 10/14/18 10/14/18 History buspirone 5 mg PO BID 10/14/18 10/14/18 History cyclobenzaprine 10 mg PO TID PRN 10/14/18 10/14/18 History lggnhictk-SB-drjkfxdxqvvcj 2 tab PO UD 10/14/18 10/14/18 History [Theraflu ExpressMax Cold Night] ibuprofen 200 mg PO Q6H PRN 10/14/18 10/14/18 History lorazepam 1 mg PO DAILY PRN 10/14/18 10/14/18 History sertraline 200 mg PO QAM 10/14/18 10/14/18 History trazodone 50 mg PO HS 10/14/18 10/14/18 History umeclidinium-vilanterol [Anoro 1 puff INHALATION QAM 10/14/18 10/14/18 History Ellipta] Past Med/Surg History Medical History Tobacco use disorder (Chronic) Depression (Chronic) Anxiety (Chronic) COPD (chronic obstructive pulmonary disease) (Chronic) COPD exacerbation (Acute) Surgical History History of shoulder replacement (Chronic) History of hip replacement (Resolved) Family History Other Diabetes Kidney disease Social History Preferred Language: Syriac Communication Ability: Effective Morning Nanny Required: No Beliefs That Will Affect Care: None Current Living Situation: Alone Other Information That Helps Us Care for You: No Feels Safe at Home: Yes Smoking Status: Current every day smoker Hx Alcohol Use: No Hx Substance Use: No Review of Systems All systems reviewed & are unremarkable except as noted in HPI & below Physical Exam Vital Signs (Past 24 Hours): Last Vital Signs Temp 36.6 C 10/14/18 10:33 Pulse 101 H 10/14/18 12:10 Resp 20 10/14/18 12:10 BP 114/70 10/14/18 12:10 Pulse Ox 93 10/14/18 12:10 Physical Exam: General Appearance: WD/WN, no apparent distress, anxious Head: normocephalic, atraumatic Eyes: normal inspection, PERRL, EOMI ENT: hearing grossly normal, pharynx normal (moist mucous membranes) Neck: supple, no JVD, no adenopathy Respiratory/Chest: Diffuse wheezing in bilateral lung khan, no rales or rhonci. No respiratory distress or accessory muscle use Cardiovascular: regular rate, rhythm, no murmur, normal peripheral pulses Abdomen/GI: normal bowel sounds, soft, non-tender to palpation Extremities/Musculoskelatal: normal inspection, no calf tenderness, normal capillary refill, no pedal edema Neurologic/Psych: alert, normal mood/affect, oriented x 3 Skin: normal color, warm/dry Results & Data Laboratory Results Short CBC 10/14/18 Range/Units 11:04 WBC 8.60 (4.8-10.8) K/uL Hgb 15.0 (12.0-16.0) g/dL Hct 44.4 (37-47) % Plt Count 148 (130-400) K/uL BMP 10/14/18 11:04 Sodium 139 Potassium 3.9 Chloride 106 Carbon Dioxide 26 BUN 23 H Creatinine 0.77 Glucose 104 H Calcium 9.5 Cardiac Enzymes 10/14/18 Range/Units 11:04 Troponin I < 0.015 (0-0.045) ng/ml Diagnostic Findings CXR: IMPRESSION: Emphysematous change. Chronic change. No acute process. ECG Rhythm: sinus rhythm Findings: + PVC Change: no significant change Supervising Physician Co-Signing Physician Notes I have seen and examined the patient and have discussed the case with the provider above. I agree with the assessment and plan as stated. 63 yo F who recently picked up her old smoking habit because of stress presented to the ER without hypoxia but with persistent wheezing and dyspnea despite outpatient rescue pack. Significant wheezing on exam. Cont with steroids, abx, nebs as above. DO Eldon
[2018-10-14] MEDS: ALBUT/IPRATROP 3MG/0.5MG NEB 3 ML VIAL INH SCH ×2 (14:36→19:39)
[2018-10-14 15:28] LABS: Prothrombin Time 10.3 Seconds (9.0-12.0)
[2018-10-14] MEDS: SERTRALINE HCL 100 MG TABLET PO SCH (15:39)
[2018-10-14] MEDS: LEVOFLOXACIN/D5W 750 MG/150 ML BAG IV SCH (15:40)
[2018-10-14] MEDS: NICOTINE 14 MG/24 HR PATCH TD SCH (18:37)
[2018-10-14] MEDS: methylPREDNISolone 40 MG in SYRINGE 0 ML IV SCH (20:11)
[2018-10-14] MEDS: ALBUTEROL HFA 8 GM INHALER INH PRN (20:37)
[2018-10-14] MEDS: LORazepam 1 MG TAB PO PRN (20:49)
[2018-10-14] MEDS: ENOXAPARIN INJ 40 MG/0.4 ML SYR SQ SCH (21:28)
[2018-10-14] MEDS: TRAZODONE HCL 50 MG TAB PO SCH (23:14)
[2018-10-15] MEDS: ALBUT/IPRATROP 3MG/0.5MG NEB 3 ML VIAL INH SCH ×4 (01:26→19:28)
[2018-10-15] MEDS: methylPREDNISolone 40 MG in SYRINGE 0 ML IV SCH ×3 (04:31→20:00)
[2018-10-15 06:12] LABS: Hematocrit (blood only) 41.4 % (37-47); Hemoglobin 14.4 g/dL (12.0-16.0); Mean Corpuscular Hgb Conc 34.8 g/dL (32-36); Mean Corpuscular Volume 90.4 fL (80-100); Mean Platelet Volume 10.3 fL (7.4-10.4); Platelet Count 153 K/uL (130-400); RDW Coefficient of Variation 13.9 % (11.5-14.5); RDW Standard Deviation 46.3 fL (36.4-46.3); Red Blood Count 4.58 M/uL (4.2-5.4); White Blood Count 6.79 K/uL (4.8-10.8)
--- NOTE | 2018-10-15 06:22 | Emergency Department Note ---
Entered by Jaycee Saunders acting as a scribe for ED Provider Note Name: Karine Ruiz Age: 63 F Arrives Via: Ambulatory Informant: Patient CC: Shortness of breath HPI: 63 year old female arrives for evaluation of worsening shortness of breath that began 6 days prior to arrival. The patient states that she has had chest tightness, coughing, and shaking during this time. She states that she vomited once yesterday because of her coughing. The patient states that this is similar to prior episodes. The patient denies leg swelling, calf pain, and abdominal pain. She denies recent falls and recent travel. The patient denies being on steroids currently. The patient states that she has been using her nebulizer at home, but states that it has not relieved her symptoms. She states that she has a history of COPD, and states that she has been hospitalized previously for exacerbations. ROS: See above HPI for pertinent positives & negatives. A total of 10 systems reviewed and were otherwise negative. Past Medical History: COPD Past Surgical History: Hip replacement Family History: No significant past family history Social History: . Smoker. Home Medications: See below. Allergies No known allergies Physical: Vitals: BP: 121/85; Pulse: 93; Resp: 26; Temp: 97.9 F; O2 Sat 94 via room air. Exam: GENERAL: Patient is well appearing and in no severe distress. EYES: No scleral icterus, unremarkable pupils. ENT: Mucous membranes moist, no nasal congestion. NECK: No masses appreciated, no meningismus, trachea is midline. RESPIRATORY: Tachypneic and dyspneic. Equal bilaterally. No rhonchi. Diffusely tight with diffuse wheezing. CARDIOVASCULAR: Regular rate and rhythm. No murmurs, rubs, gallops appreciated. GASTROINTESTINAL: Abdomen soft, non-tender, no peritonitis. Bowel sounds positive. No masses appreciated. BACK: No midline tenderness, no CVA tenderness EXTREMITIES: Normal motion all extremities, no cyanosis, no edema. NEUROLOGIC: Alert and oriented, no acute motor or sensory deficits, no focal weakness, cranial nerves grossly intact. SKIN: No rash, no jaundice, no diaphoresis. ED Course: Prior Medical Record, Triage/Nursing Notes, Medications, Allergies reviewed by Me Vital Signs: reviewed and remarkable for hypoxia Labs: Reviewed and remarkable for normal Trop along with cbc, bmp, vbg, lactate Interventions: Solumedrol 125mg IV, Doxy 100mg PO, Duoneb continuous 12 ml neb Imaging: X ray results are stated below per my interpretation: Chest: 1 view: No infiltrate, no effusion, normal cardiac border. Severe emphesema noted Consults: 1201: I discussed the case with Mary Ann Foote PA-C who will accept the patient under Dr. Young Hospitalist service. Reassessments/Times: 1143: The patient's lungs are not as tight. She still has diffuse wheezing in all lung khan and is still dyspneic. Blood pressure: Normal. No Referral necessary Disposition: Hospitalization Differentials: Etiologies such as infections, reactive airway disease, pneumonia, pneumothorax, COPD, CHF, cardiac ischemia, pulmonary embolism, musculoskeletal, gastrointestinal, amongst other pathologies. Medical Decision Makin yr old female with acutely worsening shob despite just finishing round stero ids and abx. Using nebs without improvement. Given hour neb and still significant wheezing and shob. No evidence of infection nor evidence PE. Given smoking history and lung issues will add on some doxy for coverage. She will need to come in and hospitalist agrees. Impression: COPD Exacerbation Failure of outpatient treatment Toni Burnett MD The scribe's documentation has been prepared under my direction and personally reviewed by me in its entirety. I confirm that the note above accurately reflects all work, treatment, procedures, and medical decision making performed by me. Impression & Plan COPD exacerbation, Failure of outpatient treatment Past Med/Surg History Medical History Tobacco use disorder (Chronic) Depression (Chronic) Anxiety (Chronic) COPD (chronic obstructive pulmonary disease) (Chronic) COPD exacerbation (Acute) Surgical History History of shoulder replacement (Chronic) History of hip replacement (Resolved) Family History Other Diabetes Kidney disease Social History Preferred Language: Canadian Communication Ability: Effective Legal Practice Manager Required: No Beliefs That Will Affect Care: None Current Living Situation: Alone Other Information That Helps Us Care for You: No Feels Safe at Home: Yes Smoking Status: Current every day smoker Hx Alcohol Use: No Hx Substance Use: No Results & Data Vital Signs Vital Signs - 24 hr 10/14/18 10:33 10/14/18 11:02 10/14/18 11:12 Temperature 36.6 C Temperature Source Oral Sepsis Recent Fever Within 48 Hours No Sepsis Action Taken by Nursing No Action Required Pulse Rate 93 H Pulse Rate [Left Finger] 90 Pulse Rhythm [Left Finger] Pulse Strength [Left Finger] Respiratory Rate 26 H 18 Respiratory Effort / Characteristics Spontaneous Non-Labored Spontaneous Respiratory Depth Normal Respiratory Pattern Blood Pressure 121/85 Blood Pressure [Right Arm] Blood Pressure Mean 97 Blood Pressure Mean [Right Arm] Blood Pressure Position Sitting Blood Pressure Position [Right Arm] Pulse Oximetry 94 97 98 Oxygen Delivery Method Room Air Nasal Cannula Nebulizer Oxygen Flow Rate 2 10/14/18 11:14 10/14/18 12:10 10/14/18 12:30 Temperature Temperature Source Sepsis Recent Fever Within 48 Hours Sepsis Action Taken by Nursing Pulse Rate Pulse Rate [Left Finger] 91 H 101 H Pulse Rhythm [Left Finger] Pulse Strength [Left Finger] Respiratory Rate 20 20 Respiratory Effort / Characteristics Non-Labored Spontaneous SOB on Exertion Respiratory Depth Normal Normal Respiratory Pattern Regular Blood Pressure Blood Pressure [Right Arm] 112/73 114/70 Blood Pressure Mean Blood Pressure Mean [Right Arm] 86 84 Blood Pressure Position Blood Pressure Position [Right Arm] Pulse Oximetry 98 93 Oxygen Delivery Method Nebulizer Room Air Room Air Oxygen Flow Rate 10/14/18 13:20 10/14/18 13:43 10/14/18 14:22 Temperature 36.7 C Temperature Source Oral Sepsis Recent Fever Within 48 Hours Sepsis Action Taken by Nursing Pulse Rate 100 H 106 H Pulse Rate [Left Finger] 110 H Pulse Rhythm [Left Finger] Regular Pulse Strength [Left Finger] Normal Respiratory Rate 20 22 Respiratory Effort / Characteristics Non-Labored Spontaneous SOB on Exertion Respiratory Depth Normal Respiratory Pattern Regular Blood Pressure 104/69 Blood Pressure [Right Arm] 120/53 L Blood Pressure Mean Blood Pressure Mean [Right Arm] 75 Blood Pressure Position Blood Pressure Position [Right Arm] Lying Pulse Oximetry 94 91 Oxygen Delivery Method Room Air Room Air Oxygen Flow Rate 10/14/18 14:37 10/14/18 15:53 10/14/18 19:11 Temperature 37.1 C Temperature Source Oral Sepsis Recent Fever Within 48 Hours Sepsis Action Taken by Nursing Pulse Rate 102 H Pulse Rate [Left Finger] 101 H 96 H Pulse Rhythm [Left Finger] Regular Pulse Strength [Left Finger] Normal Respiratory Rate 18 20 Respiratory Effort / Characteristics Non-Labored Spontaneous Non-Labored Respiratory Depth Normal Respiratory Pattern Regular Blood Pressure Blood Pressure [Right Arm] 117/76 Blood Pressure Mean Blood Pressure Mean [Right Arm] 89 Blood Pressure Position Blood Pressure Position [Right Arm] Sitting Pulse Oximetry 93 92 Oxygen Delivery Method Room Air Nasal Cannula Oxygen Flow Rate 2 10/14/18 19:40 10/14/18 21:30 10/14/18 22:20 Temperature Temperature Source Sepsis Recent Fever Within 48 Hours Sepsis Action Taken by Nursing Pulse Rate 104 H Pulse Rate [Left Finger] 95 H Pulse Rhythm [Left Finger] Pulse Strength [Left Finger] Respiratory Rate 19 Respiratory Effort / Characteristics Non-Labored Spontaneous Spontaneous Short of Breath SOB on Exertion Respiratory Depth Normal Respiratory Pattern Blood Pressure Blood Pressure [Right Arm] Blood Pressure Mean Blood Pressure Mean [Right Arm] Blood Pressure Position Blood Pressure Position [Right Arm] Pulse Oximetry 96 Oxygen Delivery Method Nasal Cannula Room Air Oxygen Flow Rate 2 10/14/18 23:13 10/15/18 01:27 10/15/18 04:06 Temperature 36.8 C 36.7 C Temperature Source Oral Oral Sepsis Recent Fever Within 48 Hours Sepsis Action Taken by Nursing Pulse Rate Pulse Rate [Left Finger] 100 H 102 H 90 Pulse Rhythm [Left Finger] Pulse Strength [Left Finger] Respiratory Rate 20 20 20 Respiratory Effort / Characteristics Non-Labored Spontaneous Non-Labored Spontaneous Respiratory Depth Normal Respiratory Pattern Regular Blood Pressure Blood Pressure [Right Arm] 109/66 103/66 Blood Pressure Mean Blood Pressure Mean [Right Arm] 80 78 Blood Pressure Position Blood Pressure Position [Right Arm] Sitting Pulse Oximetry 93 91 90 Oxygen Delivery Method Room Air Room Air Room Air Oxygen Flow Rate Home Medications Current Medication List: was personally reviewed by me Laboratory Data Attestation: I reviewed the patient's lab results. Result diagrams: 10/15/18 05:40 10/14/18 11:04 Lab Results 10/14/18 10/14/18 10/14/18 Range/Units 11:04 11:04 11:13 WBC 8.60 (4.8-10.8) K/uL RBC 4.78 (4.2-5.4) M/uL Hgb 15.0 (12.0-16.0) g/dL Hct 44.4 (37-47) % MCV 92.9 (80-100) fL MCH 31.4 (25-34) pg MCHC 33.8 (32-36) g/dL RDW Std Deviation 47.4 H (36.4-46.3) fL RDW Coeff of Perry 13.9 (11.5-14.5) % Plt Count 148 (130-400) K/uL MPV 9.9 (7.4-10.4) fL Immature Gran % (Auto) 0.3 % Neut % (Auto) 86.0 % Lymph % (Auto) 7.3 % Polk % (Auto) 5.3 % Eos % (Auto) 0.8 % Baso % (Auto) 0.3 % Immature Gran # (Auto) 0.03 H (0.00-0.02) K/uL Neut # (Auto) 7.38 H (1.4-6.5) K/uL Lymph # (Auto) 0.63 L (1.2-3.4) K/uL Polk # (Auto) 0.46 (0.11-0.59) K/uL Eos # (Auto) 0.07 (0-0.5) K/uL Baso # (Auto) 0.03 (0-0.2) K/uL PT (9.0-12.0) Seconds INR (0.9-1.1) VBG pH (7.36-7.41) VBG pCO2 (38-50) mmHg VBG pO2 mmHg VBG HCO3 mmol/L VBG O2 Saturation % VBG Base Excess mEq/L Barometric Pressure mm/Hg Sodium 139 (136-145) mmol/L Potassium 3.9 (3.5-5.1) mmol/L Chloride 106 (98-107) mmol/L Carbon Dioxide 26 (21-32) mmol/L Anion Gap 7.0 (3-11) BUN 23 H (7-18) mg/dl Creatinine 0.77 (0.6-1.2) mg/dl Est Cr Clr Drug Dosing 66.0 ml/min Est GFR ( Amer) 94.6 Est GFR (Non-Af Amer) 81.6 BUN/Creatinine Ratio 29.4 H (10-20) Glucose 104 H (70-99) mg/dl Lactate 1.5 (0.4-2.0) mmol/L Calcium 9.5 (8.5-10.1) mg/dl Magnesium 2.2 (1.8-2.4) mg/dl Troponin I < 0.015 (0-0.045) ng/ml Influenza Type A (PCR) (Neg) Influenza Type B (PCR) (Neg) 10/14/18 10/14/18 10/14/18 Range/Units 11:13 12:40 15:08 WBC (4.8-10.8) K/uL RBC (4.2-5.4) M/uL Hgb (12.0-16.0) g/dL Hct (37-47) % MCV (80-100) fL MCH (25-34) pg MCHC (32-36) g/dL RDW Std Deviation (36.4-46.3) fL RDW Coeff of Perry (11.5-14.5) % Plt Count (130-400) K/uL MPV (7.4-10.4) fL Immature Gran % (Auto) % Neut % (Auto) % Lymph % (Auto) % Polk % (Auto) % Eos % (Auto) % Baso % (Auto) % Immature Gran # (Auto) (0.00-0.02) K/uL Neut # (Auto) (1.4-6.5) K/uL Lymph # (Auto) (1.2-3.4) K/uL Polk # (Auto) (0.11-0.59) K/uL Eos # (Auto) (0-0.5) K/uL Baso # (Auto) (0-0.2) K/uL PT 10.3 (9.0-12.0) Seconds INR 1.0 (0.9-1.1) VBG pH 7.45 H (7.36-7.41) VBG pCO2 38 (38-50) mmHg VBG pO2 41 mmHg VBG HCO3 26 mmol/L VBG O2 Saturation 78.2 % VBG Base Excess 2.1 mEq/L Barometric Pressure 725.9 mm/Hg Sodium (136-145) mmol/L Potassium (3.5-5.1) mmol/L Chloride (98-107) mmol/L Carbon Dioxide (21-32) mmol/L Anion Gap (3-11) BUN (7-18) mg/dl Creatinine (0.6-1.2) mg/dl Est Cr Clr Drug Dosing ml/min Est GFR ( Amer) Est GFR (Non-Af Amer) BUN/Creatinine Ratio (10-20) Glucose (70-99) mg/dl Lactate (0.4-2.0) mmol/L Calcium (8.5-10.1) mg/dl Magnesium (1.8-2.4) mg/dl Troponin I (0-0.045) ng/ml Influenza Type A (PCR) Neg for Influ A (Neg) Influenza Type B (PCR) Neg for Influ B (Neg) 10/15/18 Range/Units 05:40 WBC 6.79 (4.8-10.8) K/uL RBC 4.58 (4.2-5.4) M/uL Hgb 14.4 (12.0-16.0) g/dL Hct 41.4 (37-47) % MCV 90.4 (80-100) fL MCH 31.4 (25-34) pg MCHC 34.8 (32-36) g/dL RDW Std Deviation 46.3 (36.4-46.3) fL RDW Coeff of Perry 13.9 (11.5-14.5) % Plt Count 153 (130-400) K/uL MPV 10.3 (7.4-10.4) fL Immature Gran % (Auto) % Neut % (Auto) % Lymph % (Auto) % Polk % (Auto) % Eos % (Auto) % Baso % (Auto) % Immature Gran # (Auto) (0.00-0.02) K/uL Neut # (Auto) (1.4-6.5) K/uL Lymph # (Auto) (1.2-3.4) K/uL Polk # (Auto) (0.11-0.59) K/uL Eos # (Auto) (0-0.5) K/uL Baso # (Auto) (0-0.2) K/uL PT (9.0-12.0) Seconds INR (0.9-1.1) VBG pH (7.36-7.41) VBG pCO2 (38-50) mmHg VBG pO2 mmHg VBG HCO3 mmol/L VBG O2 Saturation % VBG Base Excess mEq/L Barometric Pressure mm/Hg Sodium (136-145) mmol/L Potassium (3.5-5.1) mmol/L Chloride (98-107) mmol/L Carbon Dioxide (21-32) mmol/L Anion Gap (3-11) BUN (7-18) mg/dl Creatinine (0.6-1.2) mg/dl Est Cr Clr Drug Dosing ml/min Est GFR ( Amer) Est GFR (Non-Af Amer) BUN/Creatinine Ratio (10-20) Glucose (70-99) mg/dl Lactate (0.4-2.0) mmol/L Calcium (8.5-10.1) mg/dl Magnesium (1.8-2.4) mg/dl Troponin I (0-0.045) ng/ml Influenza Type A (PCR) (Neg) Influenza Type B (PCR) (Neg) Administered Medications Albuterol (Ventolin Hfa) 2 puffs INH QID PRN PRN Reason: Shortness Of Breath Or Wheezin Stop: 11/13/18 13:42 Last Admin: 10/14/18 20:37 Dose: 2 puffs Documented by: [id number] Albuterol (Duoneb) 3 ml INH Q6R [facility] Stop: 11/13/18 13:59 Last Admin: 10/15/18 01:26 Dose: 3 ml Documented by: [id number] Admin: 10/14/18 19:39 Dose: 3 ml Documented by: [id number] Admin: 10/14/18 14:36 Dose: 3 ml Documented by: [id number] Buspirone HCl (Buspar) 5 mg PO BID [facility] Stop: 11/13/18 20:59 Last Admin: 10/14/18 21:27 Dose: 5 mg Documented by: [id number] Enoxaparin Sodium (Lovenox) 40 mg SQ Q24H [facility] Stop: 11/13/18 21:59 Last Admin: 10/14/18 21:28 Dose: 40 mg Documented by: [id number] Levofloxacin/Dextrose (Levaquin/D5w) 750 mg in 150 mls @ 100 mls/hr IV Q24H [facility]; Protocol Stop: 10/21/18 15:59 Last Infusion: 10/14/18 17:11 Dose: 0 mls/hr Documented by: [id number] Admin: 10/14/18 15:40 Dose: 100 mls/hr Documented by: [id number] Methylprednisolone 40 mg/ (Syringe) 0.64 mls @ 1.5 mls/min IV Q8H [facility] Stop: 11/13/18 19:59 Last Admin: 10/15/18 04:31 Dose: 1.5 mls/min Documented by: [id number] Admin: 10/14/18 20:11 Dose: 1.5 mls/min Documented by: [id number] Lorazepam (Ativan) 1 mg PO DAILY PRN PRN Reason: Anxiety Stop: 11/13/18 13:42 Last Admin: 10/14/18 20:49 Dose: 1 mg Documented by: [id number] Miscellaneous (Order Awaiting Action) 1 ea N/A QS [facility] Stop: 11/13/18 15:59 Last Admin: 10/14/18 23:28 Dose: Not Given Documented by: [id number] Admin: 10/14/18 15:40 Dose: Not Given Documented by: [id number] Nicotine (Nicoderm Cq) 14 mg TD [facility] Stop: 11/13/18 16:59 Last Admin: 10/14/18 18:37 Dose: Not Given Documented by: [id number] Sertraline HCl (Zoloft) 200 mg PO QAM [facility] Stop: 11/13/18 14:29 Last Admin: 10/14/18 15:39 Dose: 200 mg Documented by: [id number] Trazodone HCl (Desyrel) 50 mg PO HS [facility] Stop: 11/13/18 22:29 Last Admin: 10/14/18 23:14 Dose: 50 mg Documented by: [id number] Discontinued Medications Albuterol (Duoneb) 12 ml NEB ONE ONE Stop: 10/14/18 10:55 Last Admin: 10/14/18 11:02 Dose: 12 ml Documented by: [id number] Doxycycline Hyclate 100 mg/ (Dextrose) 110 mls @ 50 mls/hr IV NOW STA Stop: 10/14/18 14:12 Last Infusion: 10/14/18 17:08 Dose: 0 mls/hr Documented by: [id number] Admin: 10/14/18 14:38 Dose: 50 mls/hr Documented by: [id number] Methylprednisolone (Solumedrol) 125 mg IV NOW STA Stop: 10/14/18 10:55 Last Admin: 10/14/18 11:18 Dose: 125 mg Documented by: [id number] Imaging Data Radiologist's Impression: Radiology results as stated below per my review and the radiologist's interpretation: XR chest 1V portable CLINICAL HISTORY: SHOB dyspnea COMPARISON STUDY: 09/11/2017 FINDINGS: Emphysematous change. Bilateral hilar fullness considered chronic. No acute infiltrate. Diaphragms are smooth. IMPRESSION: Emphysematous change. Chronic change. No acute process. The above report was generated using voice recognition software. It may contain grammatical, syntax or spelling errors. Electronically signed by: Antoine Dolan M.D. 10/14/2018 11:19 AM Blood Pressure Blood Pressure Findings: Normal blood pressure Discharge Plan Visit Data *Final* Discharge Date/Time: 10/14/18 13:20 Chief Complaint: Shortness of Breath/Dyspnea Stated Complaint: CAN'T BREATHE. COPD, CHEST PAIN ED Provider: Toni Burnett Discharge Problem: COPD exacerbation, Failure of outpatient treatment Patient Disposition: Admitted As Inpatient Discharge Instructions Interventions: ED Discharge Assessment Last Done: 10/14/18 13:20 The scribe's documentation has been prepared under my direction and personally reviewed by me in its entirety. I confirm that the note above accurately refle cts all work, treatment, procedures, and medical decision making performed by me.
[2018-10-15 06:34] LABS: BUN Creatinine Ratio 24.8 (10-20); Calcium 9.1 mg/dl (8.5-10.1); Est GFR (Non-African American) 76.8; Potassium 4.2 mmol/L (3.5-5.1)
[2018-10-15] MEDS: SERTRALINE HCL 100 MG TABLET PO SCH (07:54)
[2018-10-15] MEDS: NICOTINE 14 MG/24 HR PATCH TD SCH (07:54)
[2018-10-15] MEDS: ALBUTEROL HFA 8 GM INHALER INH PRN ×3 (07:56→20:00)
--- NOTE | 2018-10-15 14:35 | Hospitalist Progress Note ---
Date of Service October 15, 2018 Assessment & Plan (1) COPD exacerbation: This is a 63-year-old female with a PMH of COPD, anxiety, depression and tobacco use disorder who presents with COPD exacerbation after failed outpatient treatment. -Recently completed medrol dosepack and Z pack without improvement of symptoms -Respiratory status improved after hour-long neb treatment in ED, oxygen saturation 94% on room air -Diffuse wheezing on lung exam, CXR with emphysematous changes -No leukocytosis or evidence of PNA on CXR. -Flu PCR -negative -Will continue IV Solu-Medrol at 40 mg every 8 hours, IV Levaquin, scheduled Duonebs -Continue Anoro Ellipta and Ventolin inhaler as needed -Clinically minimally improved -We will continue current medications (2) Tobacco use disorder: Had quit for 13 years, but resumed smoking 2 months ago -Interested in cessation -Nicotine patch as needed -Advised to quit smoking (3) Depression: Stable, continue sertraline (4) Anxiety: Continue sertraline, BuSpar, Ativan as needed DVT Ppx: SQ Lovenox Code status: FULL PCP: Josué peck [place] Dispo: Obs med tele. Plan to return home once medically stable. Likely be discharged in a day or 2 Subjective 10/15 Patient was seen and examined the medical telemetry unit This is a 63-year-old female with a PMH of COPD, anxiety, depression and tobacco use disorder who presents with COPD exacerbation after failed outpatient treatment. She does not feel any better Continues to have shortness of breath and cough with wheezing Denies any chest pain in the palpitation, no abdominal pain, nausea no vomiting Physical Exam Vital Signs (Past 24 Hours): Last Vital Signs Temp 36.9 C 10/15/18 11:41 Pulse 99 H 10/15/18 13:15 Resp 20 10/15/18 13:15 BP 123/77 10/15/18 11:41 Pulse Ox 95 10/15/18 13:15 Physical Exam: Moderate shortness of breath at rest with wheezing Constitutional: + acute distress and + ill appearing Eyes: PERRL, conjunctivae normal, anicteric sclerae ENMT: external ear and nose normal, oropharynx normal Respiratory: + respiratory distress, + labored breathing and + uses accessory muscles Auscultation: + diminished lung sounds and + wheezes (Minimal wheezing on the) Cardiovascular: Rate/Rhythm: regular rate and regular rhythm Heart Sounds: normal S1 and normal S2 Gastrointestinal (Abdomen): Inspection/Auscultation: abdomen normal to inspection and normal bowel sounds Percussion/Palpation: abdomen soft; abdomen nontender Neurologic: Alert, awake and oriented x3 Results & Data Laboratory Results Short CBC 10/15/18 Range/Units 05:40 WBC 6.79 (4.8-10.8) K/uL Hgb 14.4 (12.0-16.0) g/dL Hct 41.4 (37-47) % Plt Count 153 (130-400) K/uL BMP 10/15/18 05:40 Sodium 138 Potassium 4.2 Chloride 106 Carbon Dioxide 28 BUN 20 H Creatinine 0.81 Glucose 124 H Calcium 9.1 Medications Administered Current Inpatient Medications Acetaminophen (Tylenol) 650 mg PO Q4H PRN PRN Reason: pain/fever Stop: 11/13/18 13:42 Albuterol (Ventolin Hfa) 2 puffs INH QID PRN PRN Reason: Shortness Of Breath Or Wheezin Stop: 11/13/18 13:42 Last Admin: 10/15/18 07:56 Dose: 2 puffs Documented by: Albuterol (Duoneb) 3 ml INH Q6R [facility] Stop: 11/13/18 13:59 Last Admin: 10/15/18 13:15 Dose: 3 ml Documented by: Buspirone HCl (Buspar) 5 mg PO BID [facility] Stop: 11/13/18 20:59 Last Admin: 10/15/18 07:54 Dose: 5 mg Documented by: Cyclobenzaprine HCl (Flexeril) 10 mg PO TID PRN PRN Reason: Muscle Spasm Stop: 11/13/18 13:42 Enoxaparin Sodium (Lovenox) 40 mg SQ Q24H [facility] Stop: 11/13/18 21:59 Last Admin: 10/14/18 21:28 Dose: 40 mg Documented by: Levofloxacin/Dextrose (Levaquin/D5w) 750 mg in 150 mls @ 100 mls/hr IV Q24H [facility]; Protocol Stop: 10/21/18 15:59 Last Infusion: 10/14/18 17:11 Dose: Infused Documented by: Methylprednisolone 40 mg/ (Syringe) 0.64 mls @ 1.5 mls/min IV Q8H [facility] Stop: 11/13/18 19:59 Last Admin: 10/15/18 12:08 Dose: 1.5 mls/min Documented by: Lorazepam (Ativan) 1 mg PO DAILY PRN PRN Reason: Anxiety Stop: 11/13/18 13:42 Last Admin: 10/14/18 20:49 Dose: 1 mg Documented by: Miscellaneous (Order Awaiting Action) 1 ea N/A QS [facility] Stop: 11/13/18 15:59 Last Admin: 10/15/18 07:43 Dose: Not Given Documented by: Miscellaneous (Remove Nicoderm Patch) 1 ea N/A HS PRN PRN Reason: Insomnia Stop: 11/13/18 20:59 Nicotine (Nicoderm Cq) 14 mg TD QAM [facility] Stop: 11/13/18 16:59 Last Admin: 10/15/18 07:54 Dose: Not Given Documented by: Ondansetron HCl (Zofran) 4 mg IV Q6H PRN PRN Reason: Nausea Stop: 11/13/18 13:42 Polyethylene Glycol (Miralax Powder Packet) 17 gm PO DAILY PRN PRN Reason: Constipation Stop: 11/13/18 13:42 Sertraline HCl (Zoloft) 200 mg PO QAM [facility] Stop: 11/13/18 14:29 Last Admin: 10/15/18 07:54 Dose: 200 mg Documented by: Trazodone HCl (Desyrel) 50 mg PO HS [facility] Stop: 11/13/18 22:29 Last Admin: 10/14/18 23:14 Dose: 50 mg Documented by:
[2018-10-15] MEDS: LEVOFLOXACIN/D5W 750 MG/150 ML BAG IV SCH (16:12)
[2018-10-15] MEDS: TRAZODONE HCL 50 MG TAB PO SCH (20:00)
[2018-10-15] MEDS: ENOXAPARIN INJ 40 MG/0.4 ML SYR SQ SCH (20:01)
[2018-10-15] MEDS: BUDESONIDE/FORMOTEROL FUMARATE 160/4.5 60 PUFFS/INHALER INH SCH (21:16)
[2018-10-15] MEDS ORDERED: TRAZODONE HCL 50 MG TAB PO SCH (22:00)
[2018-10-16] MEDS: ALBUT/IPRATROP 3MG/0.5MG NEB 3 ML VIAL INH SCH ×6 (01:55→23:23)
[2018-10-16] MEDS: methylPREDNISolone 40 MG in SYRINGE 0 ML IV SCH ×3 (03:21→20:18)
[2018-10-16] MEDS: ALBUTEROL HFA 8 GM INHALER INH PRN (07:49)
[2018-10-16] MEDS: NICOTINE 14 MG/24 HR PATCH TD SCH (07:50)
[2018-10-16] MEDS: BUDESONIDE/FORMOTEROL FUMARATE 160/4.5 60 PUFFS/INHALER INH SCH ×2 (07:51→20:19)
[2018-10-16] MEDS: SERTRALINE HCL 100 MG TABLET PO SCH (07:51)
[2018-10-16 08:18] LABS: Hematocrit (blood only) 42.8 % (37-47); Hemoglobin 14.5 g/dL (12.0-16.0); Mean Corpuscular Hgb Conc 33.9 g/dL (32-36); Mean Corpuscular Volume 93.4 fL (80-100); Platelet Count 151 K/uL (130-400); RDW Coefficient of Variation 14.1 % (11.5-14.5); RDW Standard Deviation 47.8 fL (36.4-46.3); Red Blood Count 4.58 M/uL (4.2-5.4); White Blood Count 9.99 K/uL (4.8-10.8)
[2018-10-16] MEDS: ACETYLCYSTEINE 10% INHAL SOLN **DISPENSED FROM RESP. INH SCH ×5 (13:58→23:23)
--- NOTE | 2018-10-16 14:46 | Hospitalist Progress Note ---
Date of Service October 16, 2018 Assessment & Plan (1) COPD exacerbation: This is a 63-year-old female with a PMH of COPD, anxiety, depression and tobacco use disorder who presents with COPD exacerbation after failed outpatient treatment. -Recently completed medrol dosepack and Z pack without improvement of symptoms -Respiratory status improved after hour-long neb treatment in ED, oxygen saturation 94% on room air -Diffuse wheezing on lung exam, CXR with emphysematous changes -No leukocytosis or evidence of PNA on CXR. -Flu PCR -negative -Will continue IV Solu-Medrol at 40 mg every 8 hours, IV Levaquin, scheduled Duonebs -Continue Anoro Ellipta and Ventolin inhaler as needed -Clinically minimally improve -No improvement of her condition after adding Symbicort -Mucomyst was added this morning -Appreciate pulmonary input and recommendation -We will add a small dose of Hycodan for cough (2) Tobacco use disorder: Had quit for 13 years, but resumed smoking 2 months ago -Interested in cessation -Nicotine patch as needed -Advised to quit smoking (3) Depression: Stable, continue sertraline (4) Anxiety: Continue sertraline, BuSpar, Ativan as needed DVT Ppx: SQ Lovenox Code status: FULL PCP: Josué in [place] Dispo: Obs med tele. Plan to return home once medically stable. Likely be discharged in a day or 2 Subjective 10/15 Patient was seen and examined the medical telemetry unit This is a 63-year-old female with a PMH of COPD, anxiety, depression and tobacco use disorder who presents with COPD exacerbation after failed outpatient treatment. She does not feel any better Continues to have shortness of breath and cough with wheezing Denies any chest pain in the palpitation, no abdominal pain, nausea no vomiting 10/16 He has been complaining of more shortness of breath and more cough Prior to admission she has had about 2-3 weeks of worsening COPD And she also started to smoke Pulmonary service Consulted for further action Physical Exam Vital Signs (Past 24 Hours): Last Vital Signs Temp 36.6 C 10/16/18 08:00 Pulse 89 10/16/18 08:00 Resp 22 10/16/18 08:00 BP 115/76 10/16/18 08:00 Pulse Ox 96 10/16/18 08:00 Physical Exam: Moderate to severe shortness of breath at rest with wheezing Constitutional: + acute distress and + ill appearing Eyes: PERRL, conjunctivae normal, anicteric sclerae ENMT: external ear and nose normal, oropharynx normal Respiratory: + respiratory distress, + labored breathing and + uses accessory muscles Auscultation: + diminished lung sounds and + wheezes (Minimal wheezing on the) Cardiovascular: Rate/Rhythm: regular rate and regular rhythm Heart Sounds: normal S1 and normal S2 Gastrointestinal (Abdomen): Inspection/Auscultation: abdomen normal to inspection and normal bowel sounds Percussion/Palpation: abdomen soft; abdomen nontender Musculoskeletal: No acute arthritis in any joints Neurologic: Alert, awake and oriented x3. Generally weak Results & Data Laboratory Results Short CBC 10/16/18 Range/Units 07:31 WBC 9.99 (4.8-10.8) K/uL Hgb 14.5 (12.0-16.0) g/dL Hct 42.8 (37-47) % Plt Count 151 (130-400) K/uL Medications Administered Current Inpatient Medications Acetaminophen (Tylenol) 650 mg PO Q4H PRN PRN Reason: pain/fever Stop: 11/13/18 13:42 Acetylcysteine (Mucomyst 10%) 3 ml INH Q4R [facility] Stop: 11/15/18 15:59 Albuterol (Ventolin Hfa) 2 puffs INH QID PRN PRN Reason: Shortness Of Breath Or Wheezin Stop: 11/13/18 13:42 Last Admin: 10/16/18 07:49 Dose: 2 puffs Documented by: Albuterol (Duoneb) 3 ml INH Q4R [facility] Stop: 11/15/18 13:29 Last Admin: 10/16/18 13:59 Dose: Not Given Documented by: Budesonide/Formoterol Fumarate (Symbicort 160mcg/4.5mcg) 2 puffs INH BID [facility] Stop: 11/14/18 20:59 Last Admin: 10/16/18 07:51 Dose: 2 puffs Documented by: Buspirone HCl (Buspar) 5 mg PO BID [facility] Stop: 11/13/18 20:59 Last Admin: 10/16/18 07:50 Dose: 5 mg Documented by: Cyclobenzaprine HCl (Flexeril) 10 mg PO TID PRN PRN Reason: Muscle Spasm Stop: 11/13/18 13:42 Last Admin: 10/15/18 21:16 Dose: 10 mg Documented by: Enoxaparin Sodium (Lovenox) 40 mg SQ Q24H [facility] Stop: 11/13/18 21:59 Last Admin: 10/15/18 20:01 Dose: 40 mg Documented by: Hydrocodone Bit/Homatropine Methylb (Hycodan) 5 ml PO Q6H PRN PRN Reason: Cough Stop: 10/30/18 13:23 Levofloxacin/Dextrose (Levaquin/D5w) 750 mg in 150 mls @ 100 mls/hr IV Q24H [facility]; Protocol Stop: 10/21/18 15:59 Last Infusion: 10/15/18 17:49 Dose: Infused Documented by: Methylprednisolone 40 mg/ (Syringe) 0.64 mls @ 1.5 mls/min IV Q8H [facility] Stop: 11/13/18 19:59 Last Admin: 10/16/18 12:16 Dose: 1.5 mls/min Documented by: Lorazepam (Ativan) 1 mg PO DAILY PRN PRN Reason: Anxiety Stop: 11/13/18 13:42 Last Admin: 10/14/18 20:49 Dose: 1 mg Documented by: Miscellaneous (Order Awaiting Action) 1 ea N/A QS [facility] Stop: 11/13/18 15:59 Last Admin: 10/16/18 07:32 Dose: Not Given Documented by: Miscellaneous (Remove Nicoderm Patch) 1 ea N/A HS PRN PRN Reason: Insomnia Stop: 11/13/18 20:59 Nicotine (Nicoderm Cq) 14 mg TD [facility] Stop: 11/13/18 16:59 Last Admin: 10/16/18 07:50 Dose: Not Given Documented by: Ondansetron HCl (Zofran) 4 mg IV Q6H PRN PRN Reason: Nausea Stop: 11/13/18 13:42 Polyethylene Glycol (Miralax Powder Packet) 17 gm PO DAILY PRN PRN Reason: Constipation Stop: 11/13/18 13:42 Sertraline HCl (Zoloft) 200 mg PO QAM [facility] Stop: 11/13/18 14:29 Last Admin: 10/16/18 07:51 Dose: 200 mg Documented by: Trazodone HCl (Desyrel) 50 mg PO [facility] Stop: 11/13/18 22:29 Last Admin: 10/15/18 20:00 Dose: 50 mg Documented by:
[2018-10-16] MEDS: HYDROCODONE/HOMATROPINE SYRUP 5MG/1.5MG 5ML UDP PO PRN (16:04)
[2018-10-16] MEDS: LEVOFLOXACIN/D5W 750 MG/150 ML BAG IV SCH (16:59)
[2018-10-16] MEDS: ENOXAPARIN INJ 40 MG/0.4 ML SYR SQ SCH (20:19)
[2018-10-16] MEDS: TRAZODONE HCL 50 MG TAB PO SCH (20:34)
--- NOTE | 2018-10-16 23:05 | Consultation Report ---
DATE OF CONSULTATION: 10/16/2018 PULMONARY CONSULTATION TIME: 1:00 p.m. REPORT OF CONSULTATION: The patient was seen in room 250, bed 1. She is a 63-year-old female who has a history of both severe COPD and sarcoidosis. She has had both problems for many years. The sarcoid reportedly was diagnosed by some sort of open lung biopsy. She has had chronic shortness of breath. PFTs done 08/16/2017 showed severe airflow obstruction. The FEV1/FVC ratio was severely decreased to 46% and the actual FEV1 was 48% predicted. Diffusion was severely reduced to 40%. The patient had been in her usual health until recently. Circumstantially, she had stopped smoking 13 years ago and she started smoking 2 months ago. The chart indicates that about 6 days before admission, she developed shortness of breath, but it was actually much longer than that. She had called the pulmonary office on 10/01/2018 complaining of shortness of breath for about 3 days. It was advised that she be seen in the office, but she indicated she could not get to the office due to transportation problems. Subsequently, she was ordered prednisone starting at 40 mg daily for 3 days, then 30 mg daily for 3 days, etc. She was also ordered azithromycin. She did not improve from this. She subsequently presented to the Emergency Room on October 14 with persistent symptoms. She has been in the hospital for about 2 days. She is not feeling any significant improvement thus far. She is having severe coughing spells. She states before admission, she had at least 2 episodes of vomiting associated with coughing. Her mucus has been yellow. There has been no hemoptysis, but she did have a small amount of left epistaxis. She has not had any chills or fevers, but she did have some sweats. Neb treatments usually help her, but they have not been giving her substantial relief. PAST SURGICAL HISTORY: 1. 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 2. Right shoulder replacement. 3. Elbow surgery. 4. Open lung biopsy. 5. Hysterectomy. 6. Lumbar spine surgery. 7. Bronchoscopy, multiple occasions, the most recent being August 2017. PAST MEDICAL HISTORY: 1. Anxiety. 2. Depression. 3. Compression fracture of T7. 4. Sinusitis. SOCIAL HISTORY: Tobacco 1-2 packs per day for 30 years. She then quit for 13 years. She then restarted about 2 months ago at 1 pack per day. ALLERGIES: No known allergies. FAMILY HISTORY: Reportedly positive for kidney disease, PA, diabetes and breast cancer. MEDICATIONS AT HOME: 1. Nebs with albuterol p.r.n. 2. Ventolin HFA p.r.n. 3. Buspirone 5 mg b.i.d. 4. Cyclobenzaprine 10 mg t.i.d. p.r.n. 5. Ibuprofen p.r.n. 6. Lorazepam 1 mg daily p.r.n. 7. Sertraline 200 mg daily. 8. Anoro Ellipta 1 puff daily. REVIEW OF SYSTEMS: The patient denies nausea. She states the vomiting she has had occurred with coughing. Denies bowel complaints. Small amount of epistaxis from the left nostril. Energy level low. Denies urinary complaints. Remainder of the review of systems is negative except as noted in the history of present illness. Ten systems reviewed. PHYSICAL EXAMINATION: GENERAL: The patient is a 63-year-old female who was cooperative, alert, and oriented. She was mildly anxious. VITAL SIGNS: Temperature is 36.6. There has been no fevers. HEENT: Pupils were reactive. Nares were clear. No blood noted. Mouth exam unremarkable. NECK: Palpation of the neck reveals no lymph nodes. CARDIAC: Rate 89 per minute. Rhythm regular. Blood pressure 115/76. LUNGS: Lung khan revealed that the patient is tight. Diffuse wheezes were heard bilaterally, mainly on expiration. Respiratory rate 22. Mild accessory muscle use. Saturation 96% on 2 liter nasal cannula. ABDOMEN: Soft. Scar was noted in the lower abdominal region midline from prior surgery. Bowel sounds were normal. There was mild tenderness to palpation in the epigastrium. There was no pain elsewhere. She denies having heartburn, but this is an area where sometimes there is tenderness with reflux. EXTREMITIES: Showed no cyanosis, clubbing, or edema. IMAGING DATA: Chest x-ray on admission showed emphysematous changes with bilateral hilar fullness and some parenchymal changes bilaterally. This would be consistent with both emphysema and the sarcoidosis she is known to have. Her prior most recent x-ray was a CAT scan done 09/12/2017. LABORATORY DATA: White count is 9.99. Hemoglobin 14.5. Platelets 151,000. Venous blood gas done yesterday showed pH 7.45, pCO2 of 38, pO2 of 41. Electrolytes show sodium 138, potassium 4.2, chloride 106, bicarbonate 28. BUN 20, creatinine 0.81. Troponin was negative. Calcium was 9.1. Lactate 1.5. Flu test was negative. Blood cultures have shown no growth thus far. EKG showed sinus rhythm. PVCs were noted. No acute changes suggested. IMPRESSION: 1. Chronic obstructive pulmonary disease with exacerbation. 2. Emphysema. 3. Sarcoidosis. COMMENTS AND RECOMMENDATIONS: The patient is still very tight. I would suggest increasing her neb treatments to q. 4 hours. I believe she would benefit from a cough medicine with codeine such as promethazine with codeine. I believe the coughing has stimulated some bronchospasm and if we just suppress the cough slightly, not so that she cannot expectorate, but such that she is a little more comfortable, I believe we will improve her. If she is not better by tomorrow, would increase her IV steroids above the current dose of 40 mg IV q. 8 hours. She is on levofloxacin, which I agree with. Acetylcysteine has been added in an attempt to help with secretion clearance. Obviously, the patient needs to once again quit smoking. I am not certain if she is committed to that or not, but hopefully so. It may be more than a coincidence that her symptoms have recurred relatively soon after starting smoking again. Thank you for asking me to assist in her care.
[2018-10-17] MEDS: methylPREDNISolone 40 MG in SYRINGE 0 ML IV SCH ×3 (03:07→20:23)
[2018-10-17] MEDS: ACETYLCYSTEINE 10% INHAL SOLN **DISPENSED FROM RESP. INH SCH ×6 (03:19→23:03)
[2018-10-17] MEDS: ALBUT/IPRATROP 3MG/0.5MG NEB 3 ML VIAL INH SCH ×6 (03:19→23:03)
[2018-10-17] MEDS: NICOTINE 14 MG/24 HR PATCH TD SCH (08:02)
[2018-10-17] MEDS: SERTRALINE HCL 100 MG TABLET PO SCH (08:03)
[2018-10-17] MEDS: BUDESONIDE/FORMOTEROL FUMARATE 160/4.5 60 PUFFS/INHALER INH SCH ×2 (08:03→20:23)
[2018-10-17] MEDS: LORazepam 1 MG TAB PO PRN (08:06)
--- NOTE | 2018-10-17 12:44 | Progress Note ---
DATE: 10/17/2018 PULMONARY PROGRESS NOTE TIME: 12:00 noon. SUBJECTIVE: The patient is feeling better. She is less short of breath. She was finding it easier to get to the bathroom and back with a shorter recovery than what she was yesterday. She is still coughing up clear mucus. Previously, it had been yellow. OBJECTIVE: GENERAL: The patient is comfortable at rest. VITAL SIGNS: Temperature 36.7. She has been afebrile. Heart rate 100 per minute. Rhythm regular. Blood pressure 120/70. LUNGS: Lung khan revealed wheeze bilaterally, but she is not nearly as tight as yesterday. There is still prolongation to the expiratory phase of respiration. Respiratory rate 18 breaths per minute. No accessory muscle use. Saturation 94% on 2 liters. LABORATORY DATA: It appears no labs were done today. Blood cultures are negative. IMPRESSION: 1. Chronic obstructive pulmonary disease with exacerbation. 2. Emphysema. 3. Sarcoidosis. COMMENTS AND RECOMMENDATIONS: The patient is doing much better. For now, I would continue the methylprednisolone 40 mg IV q. 8 with hopes that tomorrow it can be cut back some. Would continue the levofloxacin. Would continue with the DuoNeb treatment q. 4 hours. Further suggestions will be made as her course unfolds.
[2018-10-17] MEDS: HYDROCODONE/HOMATROPINE SYRUP 5MG/1.5MG 5ML UDP PO PRN (13:47)
[2018-10-17] MEDS: levoFLOXacin 750 MG TAB PO SCH (16:33)
--- NOTE | 2018-10-17 17:41 | Hospitalist Progress Note ---
Date of Service October 17, 2018 Assessment & Plan (1) COPD exacerbation: This is a 63-year-old female with a PMH of COPD, anxiety, depression and tobacco use disorder who presents with COPD exacerbation after failed outpatient treatment. -Recently completed medrol dosepack and Z pack without improvement of symptoms -Respiratory status improved after hour-long neb treatment in ED, oxygen saturation 94% on room air -Diffuse wheezing on lung exam, CXR with emphysematous changes -No leukocytosis or evidence of PNA on CXR. -Flu PCR -negative -Will continue IV Solu-Medrol at 40 mg every 8 hours, IV Levaquin, scheduled Duonebs -Continue Anoro Ellipta and Ventolin inhaler as needed -Appreciate pulmonary input and recommendation -Hycodan added for cough and Mucomyst as well -Condition has been improving but slowly - (2) Tobacco use disorder: Had quit for 13 years, but resumed smoking 2 months ago -Interested in cessation -Nicotine patch as needed -Advised to quit smoking -We will try to quit smoking (3) Depression: Stable, continue sertraline (4) Anxiety: Continue sertraline, BuSpar, Ativan as needed DVT Ppx: SQ Lovenox Code status: FULL PCP: Josué in [place] Dispo: Obs med tele. Plan to return home once medically stable. Likely be discharged in a day or 2 Subjective 10/17 The patient was seen and examined in medical floor She has not been feeling any better Clinically looks better Trying to ambulate inside the room 10/15 Patient was seen and examined the medical telemetry unit This is a 63-year-old female with a PMH of COPD, anxiety, depression and tobacco use disorder who presents with COPD exacerbation after failed outpatient treatment. She does not feel any better Continues to have shortness of breath and cough with wheezing Denies any chest pain in the palpitation, no abdominal pain, nausea no vomiting 10/16 He has been complaining of more shortness of breath and more cough Prior to admission she has had about 2-3 weeks of worsening COPD And she also started to smoke Pulmonary service Consulted for further action Review of Systems Review of Systems: Other (All systems reviewed and are unremarkable except as noted below) Respiratory: + cough, + dyspnea, + dyspnea on exertion, + sputum production and + wheezing Physical Exam Physical Exam: Moderate shortness of breath at rest Constitutional: + acute distress and + ill appearing Eyes: PERRL, conjunctivae normal, anicteric sclerae ENMT: external ear and nose normal, oropharynx normal Respiratory: + respiratory distress, + labored breathing and + uses accessory muscles Auscultation: + diminished lung sounds and + wheezes (Minimal wheezing on the) Cardiovascular: Rate/Rhythm: regular rate and regular rhythm Heart Sounds: normal S1 and normal S2 Gastrointestinal (Abdomen): Inspection/Auscultation: abdomen normal to inspection and normal bowel sounds Percussion/Palpation: abdomen soft; abdomen nontender Neurologic: PERRL, EOMI, accommodation nl, no face palsy, no dysarthria Results & Data Vital Signs (Past 12 Hours) Vital Signs Temp Pulse Resp BP Pulse Ox 10/17/18 15:13 88 18 96 10/17/18 14:59 37.0 C 91 H 18 117/71 93 10/17/18 11:17 36.7 C 100 H 18 120/70 94 10/17/18 10:48 91 H 18 95 10/17/18 07:18 36.7 C 90 18 95/64 L 90 10/17/18 07:03 88 16 92 Medications Administered Current Inpatient Medications Acetaminophen (Tylenol) 650 mg PO Q4H PRN PRN Reason: pain/fever Stop: 11/13/18 13:42 Acetylcysteine (Mucomyst 10%) 3 ml INH Q4R [facility] Stop: 11/15/18 15:59 Last Admin: 10/17/18 15:10 Dose: 3 ml Documented by: Albuterol (Ventolin Hfa) 2 puffs INH QID PRN PRN Reason: Shortness Of Breath Or Wheezin Stop: 11/13/18 13:42 Last Admin: 10/16/18 07:49 Dose: 2 puffs Documented by: Albuterol (Duoneb) 3 ml INH Q4R [facility] Stop: 11/15/18 13:29 Last Admin: 10/17/18 15:10 Dose: 3 ml Documented by: Budesonide/Formoterol Fumarate (Symbicort 160mcg/4.5mcg) 2 puffs INH BID [facility] Stop: 11/14/18 20:59 Last Admin: 10/17/18 08:03 Dose: 2 puffs Documented by: Buspirone HCl (Buspar) 5 mg PO BID [facility] Stop: 11/13/18 20:59 Last Admin: 10/17/18 08:04 Dose: 5 mg Documented by: Cyclobenzaprine HCl (Flexeril) 10 mg PO TID PRN PRN Reason: Muscle Spasm Stop: 11/13/18 13:42 Last Admin: 10/15/18 21:16 Dose: 10 mg Documented by: Enoxaparin Sodium (Lovenox) 40 mg SQ Q24H [facility] Stop: 11/13/18 21:59 Last Admin: 10/16/18 20:19 Dose: 40 mg Documented by: Hydrocodone Bit/Homatropine Methylb (Hycodan) 5 ml PO Q6H PRN PRN Reason: Cough Stop: 10/30/18 13:23 Last Admin: 10/17/18 13:47 Dose: 5 ml Documented by: Methylprednisolone 40 mg/ (Syringe) 0.64 mls @ 1.5 mls/min IV Q8H [facility] Stop: 11/13/18 19:59 Last Admin: 10/17/18 12:32 Dose: 1.5 mls/min Documented by: Levofloxacin (Levaquin) 750 mg PO Q24H [facility] Stop: 10/21/18 15:59 Last Admin: 10/17/18 16:33 Dose: 750 mg Documented by: Lorazepam (Ativan) 1 mg PO DAILY PRN PRN Reason: Anxiety Stop: 11/13/18 13:42 Last Admin: 10/17/18 08:06 Dose: 1 mg Documented by: Miscellaneous (Order Awaiting Action) 1 ea N/A QS [facility] Stop: 11/13/18 15:59 Last Admin: 10/17/18 15:52 Dose: Not Given Documented by: Miscellaneous (Remove Nicoderm Patch) 1 ea N/A HS PRN PRN Reason: Insomnia Stop: 11/13/18 20:59 Nicotine (Nicoderm Cq) 14 mg TD QAM [facility] Stop: 11/13/18 16:59 Last Admin: 10/17/18 08:02 Dose: Not Given Documented by: Ondansetron HCl (Zofran) 4 mg IV Q6H PRN PRN Reason: Nausea Stop: 11/13/18 13:42 Polyethylene Glycol (Miralax Powder Packet) 17 gm PO DAILY PRN PRN Reason: Constipation Stop: 11/13/18 13:42 Sertraline HCl (Zoloft) 200 mg PO QAM [facility] Stop: 11/13/18 14:29 Last Admin: 10/17/18 08:03 Dose: 200 mg Documented by: Trazodone HCl (Desyrel) 50 mg PO HS [facility] Stop: 11/13/18 22:29 Last Admin: 10/16/18 20:34 Dose: 50 mg Documented by:
[2018-10-17] MEDS: TRAZODONE HCL 50 MG TAB PO SCH (20:24)
[2018-10-17] MEDS: ENOXAPARIN INJ 40 MG/0.4 ML SYR SQ SCH (20:24)
[2018-10-18] MEDS: ALBUT/IPRATROP 3MG/0.5MG NEB 3 ML VIAL INH SCH ×6 (03:38→23:09)
[2018-10-18] MEDS: ACETYLCYSTEINE 10% INHAL SOLN **DISPENSED FROM RESP. INH SCH ×4 (03:40→20:22)
[2018-10-18] MEDS: methylPREDNISolone 40 MG in SYRINGE 0 ML IV SCH ×2 (04:51→12:21)
[2018-10-18] MEDS: NICOTINE 14 MG/24 HR PATCH TD SCH (09:32)
[2018-10-18] MEDS: SERTRALINE HCL 100 MG TABLET PO SCH (09:33)
[2018-10-18] MEDS: BUDESONIDE/FORMOTEROL FUMARATE 160/4.5 60 PUFFS/INHALER INH SCH ×2 (09:33→20:04)
[2018-10-18] MEDS: methylPREDNISolone 20 MG in SYRINGE 0 ML IV SCH ×2 (13:01→20:03)
--- NOTE | 2018-10-18 13:18 | Progress Note ---
DATE: 10/18/2018 PULMONARY PROGRESS NOTE TIME: 11:50 a.m. SUBJECTIVE: The patient continues to feel a little better. She is still short of breath just going to the bathroom and back, however. Her cough is decreased. She brings up just a little phlegm. She has had no chest pains, chills, fevers or sweats. OBJECTIVE: GENERAL: The patient is comfortable at rest. VITAL SIGNS: Temperature 36.8. She has had no fevers. HEART: Heart rate 91 per minute. Rhythm regular. Blood pressure 118/71. LUNGS: Lung khan reveals wheeze bilaterally on expiration. Breath sounds were decreased. There was no accessory muscle use. Respiratory rate 18. Saturation 94% on 2 liters. EXTREMITIES: Showed no cyanosis, clubbing or edema. LABORATORY DATA: There are no labs from today. IMPRESSION: 1. Chronic obstructive pulmonary disease with exacerbation. 2. Emphysema. 3. Sarcoidosis. COMMENTS AND RECOMMENDATIONS: Would decrease the methylprednisolone to 20 mg IV q. 8 hours. The patient is somewhat bothered by the taste of the acetylcysteine. Would cut that back to just twice per day, would perhaps order physical therapy to ambulate the patient. She likely is not quite ready for discharge yet.
[2018-10-18] MEDS: levoFLOXacin 750 MG TAB PO SCH (16:29)
--- NOTE | 2018-10-18 17:17 | Hospitalist Progress Note ---
Date of Service October 18, 2018 Assessment & Plan (1) COPD exacerbation: This is a 63-year-old female with a PMH of COPD, anxiety, depression and tobacco use disorder who presents with COPD exacerbation after failed outpatient treatment. -Recently completed medrol dosepack and Z pack without improvement of symptoms -Respiratory status improved after hour-long neb treatment in ED, oxygen saturation 94% on room air -Diffuse wheezing on lung exam, CXR with emphysematous changes -No leukocytosis or evidence of PNA on CXR. -Flu PCR -negative -Will continue IV Solu-Medrol at 40 mg every 8 hours, IV Levaquin, scheduled Duonebs -Continue Anoro Ellipta and Ventolin inhaler as needed -Appreciate pulmonary input and recommendation -Hycodan added for cough and Mucomyst as well -Condition has been improving but slowly -Not any better today -Discussed with pulmonary-we will continue current medications (2) Tobacco use disorder: Had quit for 13 years, but resumed smoking 2 months ago -Interested in cessation -Nicotine patch as needed -Advised to quit smoking -We will try to quit smoking (3) Depression: Stable, continue sertraline No acute anxiety under delirium (4) Anxiety: Continue sertraline, BuSpar, Ativan as needed DVT Ppx: SQ Lovenox Code status: FULL PCP: Josué in [place] Dispo: Obs med tele. Plan to return home once medically stable. Likely be discharged in a day or 2 Subjective 10/17 The patient was seen and examined by me in medical floor She has been improving but with bradycardia gradually She gets short of breath on minimal exertion She complains of wheezing cough has improved 10/15 Patient was seen and examined the medical telemetry unit This is a 63-year-old female with a PMH of COPD, anxiety, depression and tobacco use disorder who presents with COPD exacerbation after failed outpatient treatment. She does not feel any better Continues to have shortness of breath and cough with wheezing Denies any chest pain in the palpitation, no abdominal pain, nausea no vomiting 10/16 He has been complaining of more shortness of breath and more cough Prior to admission she has had about 2-3 weeks of worsening COPD And she also started to smoke Pulmonary service Consulted for further action Review of Systems Review of Systems: All systems reviewed and are unremarkable except as noted below Respiratory: + cough, + chest congestion, + dyspnea, + dyspnea on exertion and + wheezing Physical Exam Physical Exam: Minimal distress at rest Constitutional: + acute distress and + ill appearing Eyes: PERRL, conjunctivae normal, anicteric sclerae ENMT: external ear and nose normal, oropharynx normal Respiratory: + respiratory distress, + labored breathing and + uses accessory muscles Auscultation: + diminished lung sounds and + wheezes (Minimal wheezing on the) Cardiovascular: Rate/Rhythm: regular rate and regular rhythm Heart Sounds: normal S1 and normal S2 Gastrointestinal (Abdomen): Inspection/Auscultation: abdomen normal to inspection and normal bowel sounds Percussion/Palpation: abdomen soft; abdomen nontender Neurologic: PERRL, EOMI, accommodation nl, no face palsy, no dysarthria Results & Data Vital Signs (Past 12 Hours) Vital Signs Temp Pulse Pulse Resp BP Pulse Ox 10/18/18 15:58 37.1 C 91 H 20 118/72 93 10/18/18 11:14 36.8 C 91 H 18 118/71 94 10/18/18 11:12 87 18 96 10/18/18 07:24 36.7 C 81 18 116/77 97 10/18/18 07:08 90 18 97 Medications Administered Current Inpatient Medications Acetaminophen (Tylenol) 650 mg PO Q4H PRN PRN Reason: pain/fever Stop: 11/13/18 13:42 Acetylcysteine (Mucomyst 10%) 3 ml INH BIDR [facility] Stop: 11/17/18 19:59 Albuterol (Ventolin Hfa) 2 puffs INH QID PRN PRN Reason: Shortness Of Breath Or Wheezin Stop: 11/13/18 13:42 Last Admin: 10/16/18 07:49 Dose: 2 puffs Documented by: Albuterol (Duoneb) 3 ml INH Q4R [facility] Stop: 11/15/18 13:29 Last Admin: 10/18/18 15:13 Dose: 3 ml Documented by: Budesonide/Formoterol Fumarate (Symbicort 160mcg/4.5mcg) 2 puffs INH BID [facility] Stop: 11/14/18 20:59 Last Admin: 10/18/18 09:33 Dose: 2 puffs Documented by: Buspirone HCl (Buspar) 5 mg PO BID [facility] Stop: 11/13/18 20:59 Last Admin: 10/18/18 09:33 Dose: 5 mg Documented by: Cyclobenzaprine HCl (Flexeril) 10 mg PO TID PRN PRN Reason: Muscle Spasm Stop: 11/13/18 13:42 Last Admin: 10/15/18 21:16 Dose: 10 mg Documented by: Enoxaparin Sodium (Lovenox) 40 mg SQ Q24H [facility] Stop: 11/13/18 21:59 Last Admin: 10/17/18 20:24 Dose: 40 mg Documented by: Hydrocodone Bit/Homatropine Methylb (Hycodan) 5 ml PO Q6H PRN PRN Reason: Cough Stop: 10/30/18 13:23 Last Admin: 10/17/18 13:47 Dose: 5 ml Documented by: Methylprednisolone 20 mg/ (Syringe) 0.32 mls @ 1.5 mls/min IV Q8H [facility] Stop: 11/13/18 19:59 Last Admin: 10/18/18 13:01 Dose: 1.5 mls/min Documented by: Levofloxacin (Levaquin) 750 mg PO Q24H [facility] Stop: 10/21/18 15:59 Last Admin: 10/18/18 16:29 Dose: 750 mg Documented by: Lorazepam (Ativan) 1 mg PO DAILY PRN PRN Reason: Anxiety Stop: 11/13/18 13:42 Last Admin: 10/17/18 08:06 Dose: 1 mg Documented by: Miscellaneous (Order Awaiting Action) 1 ea N/A QS [facility] Stop: 11/13/18 15:59 Last Admin: 10/18/18 15:55 Dose: Not Given Documented by: Miscellaneous (Remove Nicoderm Patch) 1 ea N/A HS PRN PRN Reason: Insomnia Stop: 11/13/18 20:59 Nicotine (Nicoderm Cq) 14 mg TD QAM [facility] Stop: 11/13/18 16:59 Last Admin: 10/18/18 09:32 Dose: Not Given Documented by: Ondansetron HCl (Zofran) 4 mg IV Q6H PRN PRN Reason: Nausea Stop: 11/13/18 13:42 Polyethylene Glycol (Miralax Powder Packet) 17 gm PO DAILY PRN PRN Reason: Constipation Stop: 11/13/18 13:42 Sertraline HCl (Zoloft) 200 mg PO QAM [facility] Stop: 11/13/18 14:29 Last Admin: 10/18/18 09:33 Dose: 200 mg Documented by: Trazodone HCl (Desyrel) 50 mg PO [facility] Stop: 11/13/18 22:29 Last Admin: 10/17/18 20:24 Dose: 50 mg Documented by:
[2018-10-18] MEDS: ENOXAPARIN INJ 40 MG/0.4 ML SYR SQ SCH (20:03)
[2018-10-18] MEDS: TRAZODONE HCL 50 MG TAB PO SCH (20:05)
[2018-10-19] MEDS ORDERED: LORazepam 0.5 MG TAB PO STA ×2 (00:31→23:15)
[2018-10-19] MEDS: ALBUT/IPRATROP 3MG/0.5MG NEB 3 ML VIAL INH SCH ×6 (03:17→23:07)
[2018-10-19] MEDS: methylPREDNISolone 20 MG in SYRINGE 0 ML IV SCH ×3 (04:24→20:55)
[2018-10-19] MEDS: ACETYLCYSTEINE 10% INHAL SOLN **DISPENSED FROM RESP. INH SCH ×2 (07:23→19:39)
[2018-10-19 07:54] LABS: Hematocrit (blood only) 44.6 % (37-47); Hemoglobin 15.3 g/dL (12.0-16.0); Mean Corpuscular Hgb Conc 34.3 g/dL (32-36); Mean Corpuscular Volume 91.4 fL (80-100); Mean Platelet Volume 10.1 fL (7.4-10.4); Platelet Count 174 K/uL (130-400); RDW Coefficient of Variation 13.9 % (11.5-14.5); RDW Standard Deviation 46.5 fL (36.4-46.3); Red Blood Count 4.88 M/uL (4.2-5.4); White Blood Count 8.86 K/uL (4.8-10.8)
[2018-10-19] MEDS: NICOTINE 14 MG/24 HR PATCH TD SCH (07:56)
[2018-10-19] MEDS: BUDESONIDE/FORMOTEROL FUMARATE 160/4.5 60 PUFFS/INHALER INH SCH ×2 (07:58→20:56)
[2018-10-19] MEDS: LORazepam 1 MG TAB PO PRN (07:58)
[2018-10-19] MEDS: SERTRALINE HCL 100 MG TABLET PO SCH (07:59)
--- NOTE | 2018-10-19 15:16 | Hospitalist Progress Note ---
Date of Service October 19, 2018 Assessment & Plan (1) COPD exacerbation: This is a 63-year-old female with a PMH of COPD, anxiety, depression and tobacco use disorder who presents with COPD exacerbation after failed outpatient treatment. -Recently completed medrol dosepack and Z pack without improvement of symptoms -Respiratory status improved after hour-long neb treatment in ED, oxygen saturation 94% on room air -Diffuse wheezing on lung exam, CXR with emphysematous changes -No leukocytosis or evidence of PNA on CXR. -Flu PCR -negative -Will continue IV Solu-Medrol at 40 mg every 8 hours, IV Levaquin, scheduled Duonebs -Continue Anoro Ellipta and Ventolin inhaler as needed -Appreciate pulmonary input and recommendation -Hycodan added for cough and Mucomyst as well -Condition has been improving but slowly -Will DC Mucomyst-cough is much improved -Advised more ambulation and physical therapy has been requested -Improving slowly and likely to be discharged in a day or (2) Tobacco use disorder: Had quit for 13 years, but resumed smoking 2 months ago -Interested in cessation -Nicotine patch as needed -Advised to quit smoking -We will try to quit smoking (3) Depression: Stable, continue sertraline No acute anxiety under delirium (4) Anxiety: Continue sertraline, BuSpar, Ativan as needed DVT Ppx: SQ Lovenox Code status: FULL PCP: Josué in [place] Dispo: Obs med tele. Plan to return home once medically stable. Subjective 10/19 Patient was seen and examined the medical floor She remains stable in bed but gets short of breath with minimal exertion Denies any other symptoms PT evaluation ordered 10/15 Patient was seen and examined the medical telemetry unit This is a 63-year-old female with a PMH of COPD, anxiety, depression and tobacco use disorder who presents with COPD exacerbation after failed outpatient treatment. She does not feel any better Continues to have shortness of breath and cough with wheezing Denies any chest pain in the palpitation, no abdominal pain, nausea no vomiting 10/16 He has been complaining of more shortness of breath and more cough Prior to admission she has had about 2-3 weeks of worsening COPD And she also started to smoke Pulmonary service Consulted for further action Review of Systems Respiratory: + cough, + chest congestion, + dyspnea, + dyspnea on exertion and + wheezing Physical Exam Physical Exam: Minimal distress at rest Constitutional: + acute distress and + ill appearing Eyes: PERRL, conjunctivae normal, anicteric sclerae ENMT: external ear and nose normal, oropharynx normal Neck: trachea midline, no thyromegaly Respiratory: + respiratory distress, + labored breathing and + uses accessory muscles Auscultation: + diminished lung sounds and + wheezes (Minimal wheezing on the) Cardiovascular: Rate/Rhythm: regular rate and regular rhythm Heart Sounds: normal S1 and normal S2 Gastrointestinal (Abdomen): Inspection/Auscultation: abdomen normal to inspection and normal bowel sounds Percussion/Palpation: abdomen soft; abdomen nontender Neurologic: PERRL, EOMI, accommodation nl, no face palsy, no dysarthria Psychiatric: A+Ox3, euthymic affect Results & Data Vital Signs (Past 12 Hours) Vital Signs Temp Pulse Pulse Resp BP Pulse Ox 10/19/18 11:31 100 H 16 98 10/19/18 11:28 36.9 C 90 18 110/76 93 10/19/18 08:41 78 10/19/18 07:23 80 16 98 10/19/18 07:09 36.9 C 81 20 107/71 92 10/19/18 04:08 99 H 10/19/18 03:44 36.9 C 77 16 104/70 93 Laboratory Results Short CBC 10/19/18 Range/Units 06:55 WBC 8.86 (4.8-10.8) K/uL Hgb 15.3 (12.0-16.0) g/dL Hct 44.6 (37-47) % Plt Count 174 (130-400) K/uL Medications Administered Current Inpatient Medications Acetaminophen (Tylenol) 650 mg PO Q4H PRN PRN Reason: pain/fever Stop: 11/13/18 13:42 Acetylcysteine (Mucomyst 10%) 3 ml INH BIDR [facility] Stop: 11/17/18 19:59 Last Admin: 10/19/18 07:23 Dose: Not Given Documented by: Albuterol (Ventolin Hfa) 2 puffs INH QID PRN PRN Reason: Shortness Of Breath Or Wheezin Stop: 11/13/18 13:42 Last Admin: 10/16/18 07:49 Dose: 2 puffs Documented by: Albuterol (Duoneb) 3 ml INH Q4R [facility] Stop: 11/15/18 13:29 Last Admin: 10/19/18 11:31 Dose: 3 ml Documented by: Budesonide/Formoterol Fumarate (Symbicort 160mcg/4.5mcg) 2 puffs INH BID [facility] Stop: 11/14/18 20:59 Last Admin: 10/19/18 07:58 Dose: 2 puffs Documented by: Buspirone HCl (Buspar) 5 mg PO BID [facility] Stop: 11/13/18 20:59 Last Admin: 10/19/18 07:59 Dose: 5 mg Documented by: Cyclobenzaprine HCl (Flexeril) 10 mg PO TID PRN PRN Reason: Muscle Spasm Stop: 11/13/18 13:42 Last Admin: 10/15/18 21:16 Dose: 10 mg Documented by: Enoxaparin Sodium (Lovenox) 40 mg SQ Q24H [facility] Stop: 11/13/18 21:59 Last Admin: 10/18/18 20:03 Dose: 40 mg Documented by: Hydrocodone Bit/Homatropine Methylb (Hycodan) 5 ml PO Q6H PRN PRN Reason: Cough Stop: 10/30/18 13:23 Last Admin: 10/17/18 13:47 Dose: 5 ml Documented by: Methylprednisolone 20 mg/ (Syringe) 0.32 mls @ 1.5 mls/min IV Q8H [facility] Stop: 11/13/18 19:59 Last Admin: 10/19/18 13:22 Dose: 1.5 mls/min Documented by: Levofloxacin (Levaquin) 750 mg PO Q24H [facility] Stop: 10/21/18 15:59 Last Admin: 10/18/18 16:29 Dose: 750 mg Documented by: Lorazepam (Ativan) 1 mg PO DAILY PRN PRN Reason: Anxiety Stop: 11/13/18 13:42 Last Admin: 10/19/18 07:58 Dose: 1 mg Documented by: Miscellaneous (Order Awaiting Action) 1 ea N/A QS [facility] Stop: 11/13/18 15:59 Last Admin: 10/19/18 07:56 Dose: Not Given Documented by: Miscellaneous (Remove Nicoderm Patch) 1 ea N/A HS PRN PRN Reason: Insomnia Stop: 11/13/18 20:59 [facility] Stop: 11/13/18 16:59 Last Admin: 10/19/18 07:56 Dose: Not Given Documented by: Ondansetron HCl (Zofran) 4 mg IV Q6H PRN PRN Reason: Nausea Stop: 11/13/18 13:42 Polyethylene Glycol (Miralax Powder Packet) 17 gm PO DAILY PRN PRN Reason: Constipation Stop: 11/13/18 13:42 Sertraline [facility] ([facility]oloft) [facility] Stop: 11/13/18 14:29 Last Admin: 10/19/18 07:59 Dose: 200 mg Documented by: Trazodone HCl (Desyrel) 50 mg PO [facility] Stop: 11/13/18 22:29 Last Admin: 10/18/18 20:05 Dose: 50 mg Documented by:
[2018-10-19] MEDS: levoFLOXacin 750 MG TAB PO SCH (16:07)
[2018-10-19] MEDS: TRAZODONE HCL 50 MG TAB PO SCH (20:56)
[2018-10-19] MEDS: ENOXAPARIN INJ 40 MG/0.4 ML SYR SQ SCH (20:56)
[2018-10-20] MEDS: ALBUT/IPRATROP 3MG/0.5MG NEB 3 ML VIAL INH SCH ×6 (03:07→23:10)
[2018-10-20] MEDS: methylPREDNISolone 20 MG in SYRINGE 0 ML IV SCH ×3 (04:09→20:03)
[2018-10-20] MEDS: ACETYLCYSTEINE 10% INHAL SOLN **DISPENSED FROM RESP. INH SCH (07:03)
[2018-10-20] MEDS: BUDESONIDE/FORMOTEROL FUMARATE 160/4.5 60 PUFFS/INHALER INH SCH ×2 (08:05→20:03)
[2018-10-20] MEDS: NICOTINE 14 MG/24 HR PATCH TD SCH (08:07)
[2018-10-20] MEDS: SERTRALINE HCL 100 MG TABLET PO SCH (08:07)
[2018-10-20] MEDS: LORazepam 1 MG TAB PO PRN (08:10)
--- NOTE | 2018-10-20 12:48 | Progress Note ---
DATE: 10/20/2018 PULMONARY PROGRESS NOTE TIME: 11:40 a.m. SUBJECTIVE: The patient is still short of breath. She is pretty comfortable at rest, but winded with exertion. She still feels tighter than normal. She is not anxious to go home today because she feels she is not ready. She is bringing up small quantities of sputum. OBJECTIVE: GENERAL: The patient is comfortable at rest. VITAL SIGNS: Temperature 36.6. No fevers noted. HEART: Heart rate 92 per minute. Rhythm regular. Blood pressure 138/75. LUNGS: Lung khan revealed decreased breath sounds with mild wheeze on expiration. The wheezes are better heard when she does forced expiration. Respiratory rate 18. Saturation at present on 2 liters is 96%. EXTREMITIES: Showed no cyanosis, clubbing, or edema. No laboratories are done today. IMPRESSION: 1. Chronic obstructive pulmonary disease with exacerbation. 2. Emphysema. 3. Sarcoidosis. COMMENTS AND RECOMMENDATIONS: The patient is slowly improving. She is still on methylprednisolone. I believe we can change to prednisone 40 mg daily. Would continue with her other medicines. It will be day to day to determine if she is ready for discharge. Let it be noted that yesterday, I came to see the patient and we could not locate her. Her nurse and I both searched [facility] as well as [place] and we did not find her. She relates that she was apparently in the lounge over on [address]. INGRID
[2018-10-20] MEDS: levoFLOXacin 750 MG TAB PO SCH (15:35)
[2018-10-20] MEDS: TRAZODONE HCL 50 MG TAB PO SCH (20:03)
[2018-10-20] MEDS: ENOXAPARIN INJ 40 MG/0.4 ML SYR SQ SCH (20:04)
--- NOTE | 2018-10-20 23:40 | Hospitalist Progress Note ---
Date of Service delayed entry date of service noted below October 20, 2018 Assessment & Plan (1) COPD exacerbation: This is a 63-year-old female with a PMH of COPD, anxiety, depression and tobacco use disorder who presents with COPD exacerbation after failed outpatient treatment. Improving gradually Taper Solu-Medrol, continue IV Levaquin, scheduled Duonebs -Continue Anoro Ellipta and Ventolin inhaler as needed Appreciate pulmonary service recommendations Continue to monitor (2) Tobacco use disorder: Had quit for 13 years, but resumed smoking 2 months ago -Interested in cessation -Nicotine patch Counseled on cessation (3) Depression: Stable, continue sertraline No acute anxiety under delirium (4) Anxiety: Continue sertraline, BuSpar, Ativan as needed DVT Ppx: SQ Lovenox Code status: FULL PCP: Josué in [place] Dispo: Obs med tele. Plan to return home once medically stable. Subjective Follow-up COPD exacerbation Seen resting in bed, comfortable, nondistressed Still on 2 L oxygen by nasal cannula States she continues to feel improved but still not at baseline Still has some mild dyspnea with exertion and occasional coughing, nonproductive No chest pain Denies other symptoms Review of Systems Review of Systems: All systems reviewed & are unremarkable except as noted in HPI & below Physical Exam Physical Exam: General- oriented x 3, not in distress, speaks in sentences with no effort or accessory muscle use Head- atraumatic Eyes- PERRL, EOMI, anicteric ENT- oropharynx clear Neck- supple, no JVD, no adenopathy, no thyromegaly; carotids +2/2, no bruits appreciated Lungs-faint wheeze bilaterally, no crackles Heart- normal rate, regular rhythm; no murmurs Abdomen- normal bowel sounds, nondistended, soft, nontender, no masses or hepatosplenomegaly Extremities- no pretibial edema, no calf tenderness; peripheral pulses intact Neuro- alert, oriented x 3; CN 2-12 grossly intact; motor 5/5 bilaterally;sensation 100% on all extremities; no other gross focal neurologic deficits Skin- warm & dry Results & Data Vital Signs (Past 12 Hours) Vital Signs Temp Pulse Pulse Pulse Resp BP BP 10/20/18 23:20 36.7 C 89 16 85/51 L 10/20/18 19:31 86 18 10/20/18 19:23 36.6 C 90 18 111/74 10/20/18 15:25 97 H 18 10/20/18 15:04 36.6 C 95 H 20 101/66 10/20/18 14:49 90 10/20/18 11:56 36.7 C 95 H 18 108/71 Pulse Ox 10/20/18 23:20 95 10/20/18 19:31 96 10/20/18 19:23 94 10/20/18 15:25 92 10/20/18 15:04 95 10/20/18 14:49 10/20/18 11:56 94
[2018-10-21] MEDS: ALBUT/IPRATROP 3MG/0.5MG NEB 3 ML VIAL INH SCH ×6 (03:09→23:17)
[2018-10-21] MEDS: methylPREDNISolone 20 MG in SYRINGE 0 ML IV SCH ×2 (03:51→11:58)
[2018-10-21] MEDS: NICOTINE 14 MG/24 HR PATCH TD SCH (08:17)
[2018-10-21] MEDS: LORazepam 1 MG TAB PO PRN (08:18)
[2018-10-21] MEDS: BUDESONIDE/FORMOTEROL FUMARATE 160/4.5 60 PUFFS/INHALER INH SCH ×2 (08:18→20:08)
[2018-10-21] MEDS: SERTRALINE HCL 100 MG TABLET PO SCH (08:19)
--- NOTE | 2018-10-21 17:51 | Hospitalist Progress Note ---
Date of Service October 21, 2018 Assessment & Plan (1) COPD exacerbation: This is a 63-year-old female with a PMH of COPD, anxiety, depression and tobacco use disorder who presents with COPD exacerbation after failed outpatient treatment. Continues to improve, wean off oxygen Transition from Solu-Medrol to prednisone, continue Levaquin, scheduled Duonebs -Continue Anoro Ellipta and Ventolin inhaler as needed Appreciate pulmonary service recommendations Continue to monitor (2) Tobacco use disorder: Had quit for 13 years, but resumed smoking 2 months ago -Interested in cessation -Nicotine patch Counseled on cessation (3) Depression: Stable, continue sertraline No acute anxiety under delirium (4) Anxiety: Continue sertraline, BuSpar, Ativan as needed DVT Ppx: SQ Lovenox Code status: FULL PCP: Josué in [place] Dispo: Obs med tele. Plan to return home once medically stable. Subjective Follow-up COPD exacerbation Since you have been made, comfortable, not in distress Off oxygen supplementation today Less dyspnea with ambulation Less cough No other symptoms Review of Systems Review of Systems: All systems reviewed & are unremarkable except as noted in HPI & below Physical Exam Physical Exam: General- oriented x 3, not in distress, speaks in sentences with no effort or accessory muscle use Eyes- anicteric Neck- no JVD Lungs- clear breath sounds bilaterally, no rhonchi, no wheezing Heart- normal rate, regular rhythm; no murmurs Abdomen- normal bowel sounds, nondistended, soft, nontender Extremities- no pretibial edema, no calf tenderness Neuro- alert, oriented x 3; no gross focal neurologic deficits Skin- warm & dry Results & Data Vital Signs (Past 12 Hours) Vital Signs Temp Pulse Pulse Pulse Resp BP BP 10/21/18 15:23 92 H 18 10/21/18 15:15 89 10/21/18 14:55 36.6 C 90 18 107/71 10/21/18 12:13 36.3 C L 91 H 18 117/72 10/21/18 10:51 91 H 18 10/21/18 07:14 89 10/21/18 07:00 36.9 C 78 18 101/69 10/21/18 06:56 79 16 Pulse Ox 10/21/18 15:23 92 10/21/18 15:15 10/21/18 14:55 92 10/21/18 12:13 92 10/21/18 10:51 95 10/21/18 07:14 10/21/18 07:00 94 10/21/18 06:56 94
[2018-10-21] MEDS ORDERED: predniSONE 20 MG TAB PO ONE (20:00)
[2018-10-21] MEDS: ENOXAPARIN INJ 40 MG/0.4 ML SYR SQ SCH (20:09)
[2018-10-21] MEDS: TRAZODONE HCL 50 MG TAB PO SCH (20:09)
[2018-10-22] MEDS: ALBUT/IPRATROP 3MG/0.5MG NEB 3 ML VIAL INH SCH ×6 (04:01→23:22)
[2018-10-22 06:54] LABS: Hematocrit (blood only) 40.4 % (37-47); Hemoglobin 13.9 g/dL (12.0-16.0); Mean Corpuscular Hgb Conc 34.4 g/dL (32-36); Mean Corpuscular Volume 91.2 fL (80-100); Mean Platelet Volume 9.4 fL (7.4-10.4); Platelet Count 163 K/uL (130-400); RDW Standard Deviation 46.6 fL (36.4-46.3); Red Blood Count 4.43 M/uL (4.2-5.4); White Blood Count 10.23 K/uL (4.8-10.8)
[2018-10-22] MEDS: LORazepam 1 MG TAB PO PRN (08:06)
[2018-10-22] MEDS: predniSONE 20 MG TAB PO SCH (08:06)
[2018-10-22] MEDS: SERTRALINE HCL 100 MG TABLET PO SCH (08:06)
[2018-10-22] MEDS: BUDESONIDE/FORMOTEROL FUMARATE 160/4.5 60 PUFFS/INHALER INH SCH ×2 (08:06→20:31)
[2018-10-22] MEDS: NICOTINE 14 MG/24 HR PATCH TD SCH (08:07)
[2018-10-22] MEDS: ENOXAPARIN INJ 40 MG/0.4 ML SYR SQ SCH (20:31)
[2018-10-22] MEDS: TRAZODONE HCL 50 MG TAB PO SCH (20:32)
[2018-10-23] MEDS: ALBUT/IPRATROP 3MG/0.5MG NEB 3 ML VIAL INH SCH ×6 (04:07→23:33)
--- NOTE | 2018-10-23 07:39 | Hospitalist Progress Note ---
Date of Service delayed entry date of service 10/22October 23, 2018 Assessment & Plan (1) COPD exacerbation: This is a 63-year-old female with a PMH of COPD, anxiety, depression and tobacco use disorder who presents with COPD exacerbation after failed outpatient treatment. patient continues to improve continue to taper steroids, continue Levaquin, scheduled Duonebs -Continue Anoro Ellipta and Ventolin inhaler as needed Appreciate pulmonary service recommendations Continue to monitor (2) Tobacco use disorder: Had quit for 13 years, but resumed smoking 2 months ago -Interested in cessation -Nicotine patch Counseled on cessation (3) Depression: Stable, continue sertraline No acute anxiety under delirium (4) Anxiety: Continue sertraline, BuSpar, Ativan as needed DVT Ppx: SQ Lovenox Code status: FULL PCP: Josué in [place] Dispo: Obs [place] tele. Plan to return home once medically stable. Subjective ff up fo COPD exacerbation seen sitting up in bed comfortable still has cough, mild dyspnea on exertion no chest pain improving no other symptoms Review of Systems Review of Systems: All systems reviewed & are unremarkable except as noted in HPI & below Physical Exam Physical Exam: General- oriented x 3, not in distress, speaks in sentences with no effort or accessory muscle use Eyes- anicteric Neck- no JVD Lungs- diminished but clear , no wheezing Heart- normal rate, regular rhythm; no murmurs Abdomen- normal bowel sounds, nondistended, soft, nontender Extremities- no pretibial edema Neuro- alert, oriented x 3; no gross focal neurologic deficits Skin- warm & dry Results & Data Vital Signs (Past 12 Hours) Vital Signs Temp Pulse Pulse Resp BP BP Pulse Ox 10/23/18 07:17 81 16 97 10/23/18 07:00 36.4 C L 80 18 95/61 L 95 10/23/18 04:12 36.5 C 74 18 91/54 L 95 10/23/18 00:04 36.8 C 84 16 96/58 L 95 10/23/18 00:00 83 10/22/18 19:43 36.9 C 91 H 18 113/73 92
[2018-10-23] MEDS: NICOTINE 14 MG/24 HR PATCH TD SCH (07:57)
[2018-10-23] MEDS: BUDESONIDE/FORMOTEROL FUMARATE 160/4.5 60 PUFFS/INHALER INH SCH ×2 (07:58→20:05)
[2018-10-23] MEDS: SERTRALINE HCL 100 MG TABLET PO SCH (07:58)
[2018-10-23] MEDS: predniSONE 20 MG TAB PO SCH (07:58)
[2018-10-23] MEDS: LORazepam 1 MG TAB PO PRN (12:26)
[2018-10-23] MEDS: TRAZODONE HCL 50 MG TAB PO SCH (20:05)
[2018-10-23] MEDS: ENOXAPARIN INJ 40 MG/0.4 ML SYR SQ SCH (20:06)
[2018-10-24] MEDS: ALBUT/IPRATROP 3MG/0.5MG NEB 3 ML VIAL INH SCH ×3 (03:48→11:13)
--- NOTE | 2018-10-24 06:03 | Hospitalist Progress Note ---
Date of Service delayed entry date of service 10/23/18 October 24, 2018 Assessment & Plan (1) COPD exacerbation: This is a 63-year-old female with a PMH of COPD, anxiety, depression and tobacco use disorder who presents with COPD exacerbation after failed outpatient treatment. -- patient improved, off oxygen Transitioned from Solu-Medrol to prednisone, continue Levaquin, scheduled Duonebs -Continue Anoro Ellipta and Ventolin inhaler as needed Appreciate pulmonary service recommendations Continue to monitor (2) Tobacco use disorder: Had quit for 13 years, but resumed smoking 2 months ago -Interested in cessation -Nicotine patch Counseled on cessation (3) Depression: Stable, continue sertraline No acute anxiety under delirium (4) Anxiety: Continue sertraline, BuSpar, Ativan as needed DVT Ppx: SQ Lovenox Code status: FULL PCP: Josué in [place] Dispo: Obs med tele. Plan to return home once medically stable. Subjective ff up for COPD exacerbation resting in bed, comfortable states cough continues to improve dyspnea resolving no chest pain no other symptoms Review of Systems Review of Systems: All systems reviewed & are unremarkable except as noted in HPI & below Physical Exam Physical Exam: General- oriented x 3, not in distress, speaks in sentences with no effort or accessory muscle use Eyes- anicteric Neck- no JVD Lungs- clear BS BL Heart- normal rate, regular rhythm; no murmurs Abdomen- normal bowel sounds, nondistended, soft, nontender Extremities- no pretibial edema, no calf tenderness Neuro- alert, oriented x 3; no gross focal neurologic deficits Skin- warm & dry Results & Data Vital Signs (Past 12 Hours) Vital Signs Temp Pulse Pulse Resp BP BP Pulse Ox 10/24/18 04:15 36.7 C 72 20 96/55 L 92 10/24/18 00:00 81 10/23/18 23:17 36.8 C 88 20 91/53 L 94 10/23/18 19:31 82 16 95 10/23/18 19:30 36.9 C 20 119/79 94
[2018-10-24] MEDS: SERTRALINE HCL 100 MG TABLET PO SCH (07:47)
[2018-10-24] MEDS: NICOTINE 14 MG/24 HR PATCH TD SCH (07:47)
[2018-10-24] MEDS: predniSONE 20 MG TAB PO SCH (07:47)
[2018-10-24] MEDS: BUDESONIDE/FORMOTEROL FUMARATE 160/4.5 60 PUFFS/INHALER INH SCH (07:47)
--- NOTE | 2018-10-24 11:37 | Hospitalist Progress Note ---
Date of Service October 24, 2018 Assessment & Plan (1) COPD exacerbation: This is a 63-year-old female with a PMH of COPD, anxiety, depression and tobacco use disorder who presents with COPD exacerbation after failed outpatient treatment. -- patient improved, off oxygen Transitioned from Solu-Medrol to prednisone, continue Levaquin, scheduled Duonebs -Continue Anoro Ellipta and Ventolin inhaler as needed Appreciate pulmonary service recommendations -- d/c plan: Prednisone slow taper add Fluticasone inh BID continue Enoro and Ventolin PRN -- ff up with PCP in 3-5 days (2) Tobacco use disorder: Had quit for 13 years, but resumed smoking 2 months ago -Interested in cessation -Nicotine patch Counseled on cessation (3) Depression: Stable, continue sertraline No acute anxiety under delirium (4) Anxiety: Continue sertraline, BuSpar, Ativan as needed DVT Ppx: SQ Lovenox Code status: FULL PCP: Josué in [place] Dispo: d/c home ff up with PCP in 3-5 days ff up with Pulm in 2 weeks Subjective ff up for COPD exacerbation seen sitting up in bed feels much better ambulated with no dyspnea no cough no other symptoms Review of Systems Review of Systems: All systems reviewed & are unremarkable except as noted in HPI & below Physical Exam Physical Exam: General- oriented x 3, not in distress, speaks in sentences with no effort or accessory muscle use Eyes- anicteric Neck- no JVD Lungs- clear breath sounds, no wheezing, no rhonchi bilaterally Heart- normal rate, regular rhythm; no murmurs Abdomen- normal bowel sounds, nondistended, soft, nontender Extremities- no pretibial edema, no calf tenderness Neuro- alert, oriented x 3; no gross focal neurologic deficits Skin- warm & dry Results & Data Vital Signs (Past 12 Hours) Vital Signs Temp Pulse Pulse Pulse Resp BP Pulse Ox 10/24/18 11:14 84 16 96 10/24/18 08:00 69 10/24/18 07:21 36.7 C 71 18 104/65 97 10/24/18 07:14 86 16 93 10/24/18 04:15 36.7 C 72 20 96/55 L 92 10/24/18 00:00 81
--- NOTE | 2018-10-24 11:59 | Discharge Summary ---
Date of Service October 24, 2018 Admission HPI Per Admitting Provider This is a 63-year-old female with a PMH of COPD, anxiety, depression and tobacco use disorder who presents with COPD exacerbation after failed outpatient treatment. Patient began to experience symptoms of cough, phlegm production, shortness of breath and pleuritic chest pain at the beginning of October and was prescribed with a Medrol Dosepak and course of azithromycin by outpatient provider. Symptoms did not improve and have worsened over the past week. Endorses chills, continued shortness of breath, wheezing and cough with white sputum production. Also of note, patient began to smoke 2 months ago after having quit for 13 years. Has been using albuterol nebulizer twice a day at home as well as Ventolin inhaler as needed and an oral Ellipta daily. Follows with Dr. Cote in pulm clinic. Found to be hemodynamically stable upon arrival. Oxygen saturation stable on room air at 94%. Patient visibly working to breathe, but efforts improved after hour-long breathing treatment in ED. Was also given 125 mg IV Solu-Medrol. Will be admitted for further treatment of COPD exacerbation with IV Solu-Medrol, antibiotics and scheduled DuoNeb treatments. Admission Exam Per Admitting Provider Vital Signs (Past 24 Hours): Last Vital Signs Temp 36.6 C 10/14/18 10:33 Pulse 101 H 10/14/18 12:10 Resp 20 10/14/18 12:10 BP 114/70 10/14/18 12:10 Pulse Ox 93 10/14/18 12:10 Physical Exam: General Appearance: WD/WN, no apparent distress, anxious Head: normocephalic, atraumatic Eyes: normal inspection, PERRL, EOMI ENT: hearing grossly normal, pharynx normal (moist mucous membranes) Neck: supple, no JVD, no adenopathy Respiratory/Chest: Diffuse wheezing in bilateral lung khan, no rales or rhonci. No respiratory distress or accessory muscle use Cardiovascular: regular rate, rhythm, no murmur, normal peripheral pulses Abdomen/GI: normal bowel sounds, soft, non-tender to palpation Extremities/Musculoskelatal: normal inspection, no calf tenderness, normal capillary refill, no pedal edema Neurologic/Psych: alert, normal mood/affect, oriented x 3 Skin: normal color, warm/dry Principal Diagnosis COPD EXACERBATION Discharge Exam Vital Signs (Past 24 Hours): Last Vital Signs Temp 36.6 C 10/14/18 10:33 Pulse 101 H 10/14/18 12:10 Resp 20 10/14/18 12:10 BP 114/70 10/14/18 12:10 Pulse Ox 93 10/14/18 12:10 Physical Exam: General Appearance: WD/WN, no apparent distress, anxious Head: normocephalic, atraumatic Eyes: normal inspection, PERRL, EOMI ENT: hearing grossly normal, pharynx normal (moist mucous membranes) Neck: supple, no JVD, no adenopathy Respiratory/Chest: Diffuse wheezing in bilateral lung khan, no rales or rhonci. No respiratory distress or accessory muscle use Cardiovascular: regular rate, rhythm, no murmur, normal peripheral pulses Abdomen/GI: normal bowel sounds, soft, non-tender to palpation Extremities/Musculoskelatal: normal inspection, no calf tenderness, normal capillary refill, no pedal edema Neurologic/Psych: alert, normal mood/affect, oriented x 3 Skin: normal color, warm/dry Discharge Data Allergies Allergy/AdvReac Type Severity Reaction Status Date / Time No Known Allergies Allergy Unknown Verified 10/14/18 11:48 Consultations 10/14/18 12:01 ED Decision to Admit Stat 10/16/18 10:32 Consult Pulmonology Routine CXR FINDINGS: Emphysematous change. Bilateral hilar fullness considered chronic. No acute infiltrate. Diaphragms are smooth. IMPRESSION: Emphysematous change. Chronic change. No acute process. Hospital Course (1) COPD exacerbation: This is a 63-year-old female with a PMH of COPD, anxiety, depression and tobacco use disorder who presents with COPD exacerbation after failed outpatient treatment. -- patient improved, off oxygen Transitioned from Solu-Medrol to prednisone, finished 7 day course of Levaquin, scheduled Duonebs -- [employer] Dr. Fowler consulted patient improved gradually weaned off oxgen -- d/c plan: Prednisone slow taper add Fluticasone inh BID continue Enoro and Ventolin PRN -- ff up with PCP in 3-5 days ff up with [facility] Dr. Iam Fowler (2) Tobacco use disorder: Had quit for 13 years, but resumed smoking 2 months ago -Interested in cessation -Nicotine patch Counseled on cessation (3) Depression: Stable, continue sertraline No acute anxiety under delirium (4) Anxiety: Continue sertraline, BuSpar, Ativan as needed DVT Ppx: SQ Lovenox Code status: FULL PCP: Josué in [place] Dispo: d/c home ff up with PCP in 3-5 days ff up with Pulm in 2 weeks case discussed with patient in detail she is agreeable, comfortable with plan of care Total Time Total Time Spent Total Time Spent (In Minutes): 40 minutes Discharge Plan Discharge Items Discharge Diagnosis: COPD Exacerbation Discharge Goals: Diagnostic testing and Therapeutic intervention Activity: As commented below Activity Comment: No heavy exertion until re-evaluated by Primary Care Physician Lifting: Wait until after follow-up appointment Exercise/Sports: Wait until after follow-up appointment Driving/Machine Use Comment: No driving until re-evaluated by Primary Care Physician Non-emergency contact: Primary Care Provider Call non-emergency contact if: you have any medication questions, your symptoms worsen and you have a fever Diet: Regular Prescriptions: New nicotine [Nicoderm CQ] 14 mg/24 hr Patch 24 Hour 14 mg transdermal QAM 14 Days Qty: 14 RF: 1 prednisone 10 mg tablet 10 mg PO UD Qty: 32 RF: 0 Flovent HFA 110 mcg/actuation HFA aerosol inhaler 1 inha INH BID Qty: 12 RF: 1 Continued cyclobenzaprine 10 mg tablet 10 mg PO TID PRN (Reason: Muscle Spasm) RF: 0 buspirone 5 mg tablet 5 mg PO BID RF: 0 albuterol sulfate 2.5 mg /3 mL (0.083 %) Solution For Nebulization 2.5 mg INHALATION QID PRN (Reason: Shortness Of Breath Or Wheezing) RF: 0 sertraline 100 mg tablet 200 mg PO QAM RF: 0 ibuprofen 200 mg Tablet 200 mg PO Q6H PRN (Reason: Pain) RF: 0 lorazepam 1 mg tablet 1 mg PO DAILY PRN (Reason: Anxiety) RF: 0 albuterol sulfate [Ventolin HFA] 90 mcg/actuation HFA aerosol inhaler 2 puff inhalation QID PRN (Reason: Shortness Of Breath Or Wheezing) RF: 0 Anoro Ellipta 62.5-25 mcg/actuation blister with device 1 puff inhalation QAM RF: 0 trazodone 50 mg tablet 50 mg PO HS RF: 0 Discontinued Theraflu ExpressMax Cold Night 12.5-5-325 mg Tablet 2 tab PO UD RF: 0 Admission Data Admit Date/Time: 10/16/18 13:54 Attending Provider: Se Quintero Admit Provider: Manisha Colón Primary Care Provider: Johnnie Moses Other Providers: Se Quintero ; Alan Cote ; Manisha Colón ; Macrina Fong Service: Telemetry Medical
== END 2018-10-24 12:23 | disposition home or self-care (01) | DRG 192 ==
LOC: 2W 10:24 → ED 10:24 → SUATTDRO 12:32 → 2W 13:20 → SUATTDRO 10-16 13:54

== ENCOUNTER 2019-05-23 08:48 | Inpatient (IN) ==
--- NOTE | 2019-05-06 08:30 | PAT Medication Instructions ---
Medication Instructions Date of Service May 06, 2019 Home Medications Medication Instructions Recorded buspirone 10 mg tablet 10 mg PO BID #60 tab 02/12/19 cyclobenzaprine 10 mg tablet 10 mg PO TID PRN #60 tab 02/12/19 lorazepam 1 mg tablet 1 mg PO DAILY PRN #30 tab 02/12/19 trazodone 50 mg tablet 50 mg PO HS #90 tab 02/12/19 albuterol sulfate 2.5 mg/3 mL 2.5 mg INHALATION QID PRN #90 ml 02/18/19 (0.083 %) solution for nebulization albuterol sulfate HFA 90 2 puff INHALATION QID PRN #18 gm 02/18/19 mcg/actuation aerosol inhaler sertraline 100 mg tablet 200 mg PO QAM #60 tab 02/18/19 umeclidinium 62.5 mcg-vilanterol 1 puffs INHALATION QAM #60 ea 03/19/19 25 mcg/actuation powdr for inhalation meloxicam 7.5 mg tablet 7.5 mg PO DAILY PRN #30 tab 04/30/19 buspirone 10 mg tablet 10 mg PO BID cyclobenzaprine 10 mg tablet 10 mg PO TID PRN lorazepam 1 mg tablet 1 mg PO DAILY PRN trazodone 50 mg tablet 50 mg PO HS albuterol sulfate 2.5 mg/3 mL (0.083 %) solution for nebulization 2.5 mg INHALATION QID PRN albuterol sulfate HFA 90 mcg/actuation aerosol inhaler 2 puff INHALATION QID PRN sertraline 100 mg tablet 200 mg PO QAM umeclidinium 62.5 mcg-vilanterol 25 mcg/actuation powdr for inhalation 1 puffs INHALATION QAM meloxicam 7.5 mg tablet 7.5 mg PO DAILY PRN ASK your surgeon for instructions meloxicam 7.5 mg tablet 7.5 mg PO DAILY PRN DO NOT take the morning of surgery cyclobenzaprine 10 mg tablet 10 mg PO TID PRN Take morning of surgery With a small sip of water, OTHERWISE NOTHING TO EAT OR DRINK AFTER MIDNIGHT: buspirone 10 mg tablet 10 mg PO BID lorazepam 1 mg tablet 1 mg PO DAILY PRN (if needed) albuterol sulfate 2.5 mg/3 mL (0.083 %) solution for nebulization 2.5 mg INHALATION QID PRN (if needed) albuterol sulfate HFA 90 mcg/actuation aerosol inhaler 2 puff INHALATION QID PRN (if needed) sertraline 100 mg tablet 200 mg PO QAM umeclidinium 62.5 mcg-vilanterol 25 mcg/actuation powdr for inhalation 1 puffs INHALATION QAM Take evening before surgery buspirone 10 mg tablet 10 mg PO BID cyclobenzaprine 10 mg tablet 10 mg PO TID PRN (if needed) lorazepam 1 mg tablet 1 mg PO DAILY PRN (if needed) trazodone 50 mg tablet 50 mg PO HS albuterol sulfate 2.5 mg/3 mL (0.083 %) solution for nebulization 2.5 mg INHALATION QID PRN (if needed) albuterol sulfate HFA 90 mcg/actuation aerosol inhaler 2 puff INHALATION QID PRN (if needed) Other Notes If you have any questions please call us at [phone] or [phone] or [phone] or [phone]
--- NOTE | 2019-05-06 14:36 | Anesthesiology Consultation ---
Date of Service May 06, 2019 Assessment & Plan (1) Encounter for pre-operative examination: - Awaiting review preop testing (labs, CXR). - Awaiting surgeon-ordered PCP preop evaluation scheduled 05/09 (VALDEZ). Chart Review Chart Review: Patient seen in Pre Admission Testing Teaching & Discussion Pre-Anesthesia Teaching/Discussion Notes: Instructed NPO after midnight before surgery,except medications with 15 cc of water. Medication instructions provided according to the PAT guidelines. History Surgery Operation Date: 05/23/19 11:55 Proposed Procedures p Right Total Shoulder Arthroplasty - Aden Correia MD Height/Weight Height: 5 ft 3 in Weight: 65.7 kg Allergies Allergy/AdvReac Type Severity Reaction Status Date / Time No Known Allergies Allergy Unknown Verified 05/02/19 10:40 Medications Home Medications Medication Instructions Recorded Confirmed Last Taken buspirone 10 mg tablet 10 mg PO BID #60 tab 02/12/19 05/02/19 Unknown cyclobenzaprine 10 mg tablet 10 mg PO TID PRN #60 tab 02/12/19 05/02/19 Unknown lorazepam 1 mg tablet 1 mg PO DAILY PRN #30 tab 02/12/19 05/02/19 Unknown trazodone 50 mg tablet 50 mg PO HS #90 tab 02/12/19 05/02/19 Unknown albuterol sulfate 2.5 mg/3 mL 2.5 mg INHALATION QID PRN #90 ml 02/18/19 05/02/19 Unknown (0.083 %) solution for nebulization albuterol sulfate HFA 90 2 puff INHALATION QID PRN #18 gm 02/18/19 05/02/19 Unknown mcg/actuation aerosol inhaler sertraline 100 mg tablet 200 mg PO QAM #60 tab 02/18/19 05/02/19 Unknown umeclidinium 62.5 mcg-vilanterol 1 puffs INHALATION QAM #60 ea 03/19/19 05/02/19 Unknown 25 mcg/actuation powdr for inhalation meloxicam 7.5 mg tablet 7.5 mg PO DAILY PRN #30 tab 04/30/19 05/02/19 Unknown Past Medical History Medical History COPD (chronic obstructive pulmonary disease) + rare O2 PRN (no use x 1 year) Sarcoidosis stable Anxiety Depression Exercise / Class Metabolic Activity III < 4 Walking/Shop/Light housework Past Family History Family History Other Diabetes Kidney disease Past Surgical History Surgical History H/O hysterectomy for benign disease (10/02/12) History of hip replacement Left PREETI: 09/11/17: SAB x 1 at L3-L4 at [facility] Hx of colonoscopy Hx of elbow surgery RIGHT Past Anesthesia History No Hx of Anesthesia Complications and No Family Hx of Anesthesia Complications History of PONV No Hx of PONV and No Hx of Motion Sickness Social History Smoking Status: Current every day smoker tobacco type: cigarettes Smoking cigarettes per day: 1 PPD; intermittent x 10+ years Do You Dip or Chew Tobacco: No Hx Alcohol Use: No Hx Substance Use: No substance use type: does not use Review of Systems Patient denies chest pain, shortness of breath, reflux, cough, wheezing, palpitations. Physical Exam Vital Signs VITALS BP 104/76 P 77 TEMP 98.1 SP02 93%RA RESP 20 PHYSICAL Full neck and c-spine range of motion. Full TMJ range of motion. TMD 3 finger breaths Mallampati Score 3 Dentition: full dentures upper/lower Lungs: clear throughout to auscultation Cardiac: regular rate and rhythm, no murmurs noted Spine: normal Carotid arteries: negative bruit Extremities: no edema Testing Electrocardiogram Date: 10/14/18 SR with occasional PVC's at 89bpm. Otherwise "normal" ECG. *Poor data quality*
[2019-05-06 15:42] LABS: Appearance Urine Clear (Clear); Bilirubin Urine Negative (Negative); Blood Urine Negative (Negative); Color Urine Yellow; Glucose Urine UA Negative (Negative); Ketones Urine Negative (Negative); Leukocyte Esterase Urine Negative (Negative); Nitrite Urine Negative (Negative); Protein Urine Negative (Negative); Specific Gravity Urine 1.027 (1.000-1.030); Urobilinogen Urine Negative (Negative)
[2019-05-06 15:53] LABS: Partial Thromboplastin Ratio 0.9; Partial Thromboplastin Time 25.6 Seconds (21.0-31.0); Prothrombin Time 10.3 Seconds (9.0-12.0)
--- NOTE | 2019-05-06 16:01 | XRay Report ---
XR chest Pre-admission PA/Lat CLINICAL HISTORY: pat preoperative COMPARISON STUDY: 10/14/2017 FINDINGS: Chronic bilateral perihilar fibrocalcific change. Stable baseline emphysematous change. No acute infiltrate. IMPRESSION: Chronic and emphysematous change. No acute process. The above report was generated using voice recognition software. It may contain grammatical, syntax or spelling errors. Electronically signed by: Antoine Dolan M.D. 05/06/2019 4:00 PM
[2019-05-06 16:20] LABS: Albumin Level 3.9 gm/dl (3.4-5.0); BUN Creatinine Ratio 21.9 (10-20); Calcium 9.4 mg/dl (8.5-10.1); Creatinine Clr Calc Pharmacy 48.4 ml/min; Est GFR (African American) 63.5; Est GFR (Non-African American) 54.8; Potassium 4.3 mmol/L (3.5-5.1)
[2019-05-06 16:45] LABS: Hemoglobin 14.6 g/dL (12.0-16.0); Mean Corpuscular Hemoglobin 31.7 pg (25-34); Mean Corpuscular Volume 93.5 fL (80-100); Platelet Count 187 K/uL (130-400); White Blood Count 6.08 K/uL (4.8-10.8)
[2019-05-06 17:15] LABS: Basophils # (auto) 0.07 K/uL (0-0.2); Basophils % (auto) 1.2 %; Eosinophils # (auto) 0.23 K/uL (0-0.5); Eosinophils % (auto) 3.8 %; Immature Granulocytes # (auto) 0.02 K/uL (0.00-0.02); Immature Granulocytes % (auto) 0.3 %; Lymphocytes # (auto) 1.64 K/uL (1.2-3.4); Monocytes # (auto) 0.49 K/uL (0.11-0.59); Monocytes % (auto) 8.1 %; Neutrophils # (auto) 3.63 K/uL (1.4-6.5); Neutrophils % (auto) 59.6 %
[2019-05-07 05:33] LABS: Estimated Average Glucose 111 mg/dl; Hemoglobin A1C 5.5 % (4.5-5.6)
--- NOTE | 2019-05-22 19:45 | History & Physical Report ---
Date of Service May 22, 2019 Assessment & Plan (1) Primary osteoarthritis, right shoulder: Treatment options were discussed. She has failed conservative measures as above. Risks, benefits and alternatives to surgery including but not limited to infection, DVT, pain, stiffness, need for revision surgery, damage to blood vessels, damage to nerves, PE, , were discussed with the patient and they wish to proceed. Plan will be for right total shoulder arthroplasty on 05/23/19 at [facility]. All questions were answered. Due to patients smoking history will like discharge with 1 week of Duricef 500mg BID for antibiotic prophylaxis. Will plan on PT upon discharge from the hospital. She will follow up post operatively. History of Present Illness Primary Care Provider: CLAY Davila Patient is a 63 year old female with PMHx significant for depression, COPD, sarcoidosis, current every day smoker who presents with ongoing and significant right shoulder pain. Her pain is affecting her ability to carry out daily activities. She previously has underwent cortisone injections and NSAIDs with minimal relief of her pain. Should would like to proceed with surgical management. Patient denies headaches, sweats, fevers, chills, double vision, blurred vision, cough, sore throat, dysphagia, chest pain, sob, wheezing, n/v/d/c, numbness, tingling, fatigue, urinary symptoms, mood disorders. ROS positive for right shoulder pain and stiffness. Allergies Allergy/AdvReac Type Severity Reaction Status Date / Time No Known Allergies Allergy Unknown Verified 05/10/19 11:23 Home Medications Home Medications Medication Instructions Recorded Confirmed Type buspirone 10 mg tablet 10 mg PO BID #60 tab 02/12/19 05/10/19 Rx cyclobenzaprine 10 mg tablet 10 mg PO TID PRN #60 tab 02/12/19 05/10/19 Rx lorazepam 1 mg tablet 1 mg PO DAILY PRN #30 tab 02/12/19 05/10/19 Rx trazodone 50 mg tablet 50 mg PO HS #90 tab 02/12/19 05/10/19 Rx albuterol sulfate 2.5 mg/3 mL 2.5 mg INHALATION QID PRN #90 ml 02/18/19 05/10/19 Rx (0.083 %) solution for nebulization sertraline 100 mg tablet 200 mg PO QAM #60 tab 02/18/19 05/10/19 Rx umeclidinium 62.5 mcg-vilanterol 1 puffs INHALATION QAM #60 ea 03/19/19 05/10/19 Rx 25 mcg/actuation powdr for inhalation meloxicam 7.5 mg tablet 7.5 mg PO DAILY PRN #30 tab 04/30/19 05/10/19 Rx albuterol sulfate 90 mcg/actuation 2 puff INHALATION QID PRN #18 gm 05/10/19 Rx aerosol inhaler Past Med/Surg History Medical History Anxiety COPD (chronic obstructive pulmonary disease) + rare O2 PRN (no use x 1 year) Depression Sarcoidosis stable Surgical History H/O hysterectomy for benign disease (10/02/12) History of hip replacement Left PREETI: 09/11/17: SAB x 1 at L3-L4 at [facility] Hx of colonoscopy Hx of elbow surgery RIGHT Family History Other Diabetes Kidney disease Social History Preferred Language: Setswana Communication Ability: Effective Last Putter Away Required: No Beliefs That Will Affect Care: None Current Living Situation: Spouse Feels Safe at Home: Yes Smoking Status: Current every day smoker Tobacco Type: cigarettes ; Cigarettes Per Day: 1 PPD; intermittent x 10+ years ; Second Hand Exposure: No ; Hx Alcohol Use: No Hx Substance Use: No Review of Systems All systems reviewed & are unremarkable except as noted in HPI & below Physical Exam Constitutional: well developed and well nourished; no acute distress Eyes: PERRL, conjunctivae normal, anicteric sclerae ENMT: external ear and nose normal, oropharynx normal Neck: trachea midline, no thyromegaly Respiratory: normal respiratory effort, lungs clear to auscultation Cardiovascular: RRR, no murmur, no edema Musculoskeletal: Right shoulder-FF 0-90 degrees, abduction 0-80 degrees, ER 0- 30 degrees. Positive impingement signs. Rotator cuff strength well preserved on exam, however painful with testing. Skin: no rashes, warm and dry Neurologic: patellar DTR's 2+ bilat, sensation intact Psychiatric: A+Ox3, euthymic affect Results & Data Laboratory Results Lab Results 05/06/19 05/06/19 05/06/19 Range/Units 15:21 15:21 15:21 WBC 6.08 (4.8-10.8) K/uL RBC 4.60 (4.2-5.4) M/uL Hgb 14.6 (12.0-16.0) g/dL Hct 43.0 (37-47) % MCV 93.5 (80-100) fL MCH 31.7 (25-34) pg MCHC 34.0 (32-36) g/dL Plt Count 187 (130-400) K/uL Immature Gran % (Auto) 0.3 % Neut % (Auto) 59.6 % Lymph % (Auto) 27.0 % [place] % (Auto) 8.1 % Eos % (Auto) 3.8 % Baso % (Auto) 1.2 % Immature Gran # (Auto) 0.02 (0.00-0.02) K/uL Neut # (Auto) 3.63 (1.4-6.5) K/uL Lymph # (Auto) 1.64 (1.2-3.4) K/uL [place] # (Auto) 0.49 (0.11-0.59) K/uL Eos # (Auto) 0.23 (0-0.5) K/uL Baso # (Auto) 0.07 (0-0.2) K/uL PT 10.3 (9.0-12.0) Seconds INR 1.0 (0.9-1.1) APTT 25.6 (21.0-31.0) Seconds PTT Ratio 0.9 Sodium 136 (136-145) mmol/L Potassium 4.3 (3.5-5.1) mmol/L Chloride 103 (98-107) mmol/L Carbon Dioxide 29 (21-32) mmol/L Anion Gap 4.0 (3-11) BUN 23 H (7-18) mg/dl Creatinine 1.07 (0.6-1.2) mg/dl Est Cr Clr Drug Dosing 48.4 ml/min Est GFR ( Amer) 63.5 Est GFR (Non-Af Amer) 54.8 BUN/Creatinine Ratio 21.9 H (10-20) Glucose 105 H (70-99) mg/dl Estimat Average Glucose mg/dl Hemoglobin A1c (4.5-5.6) % Calcium 9.4 (8.5-10.1) mg/dl Albumin 3.9 (3.4-5.0) gm/dl Urine Color Urine Appearance (Clear) Urine pH (4.5-7.5) Ur Specific [place] (1.000-1.030) Urine Protein (Negative) Urine Glucose (UA) (Negative) Urine Ketones (Negative) Urine Blood (Negative) Urine Nitrite (Negative) Urine Bilirubin (Negative) Urine Urobilinogen (Negative) Ur Leukocyte Esterase (Negative) Blood Type Antibody Screen 05/06/19 05/06/19 05/06/19 Range/Units 15:21 15:21 Unknown WBC (4.8-10.8) K/uL RBC (4.2-5.4) M/uL Hgb (12.0-16.0) g/dL Hct (37-47) % MCV (80-100) fL MCH (25-34) pg MCHC (32-36) g/dL Plt Count (130-400) K/uL Immature Gran % (Auto) % Neut % (Auto) % Lymph % (Auto) % [place] % (Auto) % Eos % (Auto) % Baso % (Auto) % Immature Gran # (Auto) (0.00-0.02) K/uL Neut # (Auto) (1.4-6.5) K/uL Lymph # (Auto) (1.2-3.4) K/uL [place] # (Auto) (0.11-0.59) K/uL Eos # (Auto) (0-0.5) K/uL Baso # (Auto) (0-0.2) K/uL PT (9.0-12.0) Seconds INR (0.9-1.1) APTT (21.0-31.0) Seconds PTT Ratio Sodium (136-145) mmol/L Potassium (3.5-5.1) mmol/L Chloride (98-107) mmol/L Carbon Dioxide (21-32) mmol/L Anion Gap (3-11) BUN (7-18) mg/dl Creatinine (0.6-1.2) mg/dl Est Cr Clr Drug Dosing ml/min Est GFR ( Amer) Est GFR (Non-Af Amer) BUN/Creatinine Ratio (10-20) Glucose (70-99) mg/dl Estimat Average Glucose 111 mg/dl Hemoglobin A1c 5.5 (4.5-5.6) % Calcium (8.5-10.1) mg/dl Albumin (3.4-5.0) gm/dl Urine Color Yellow Urine Appearance Clear (Clear) Urine pH 5.0 (4.5-7.5) Ur Specific [place] 1.027 (1.000-1.030) Urine Protein Negative (Negative) Urine Glucose (UA) Negative (Negative) Urine Ketones Negative (Negative) Urine Blood Negative (Negative) Urine Nitrite Negative (Negative) Urine Bilirubin Negative (Negative) Urine Urobilinogen Negative (Negative) Ur Leukocyte Esterase Negative (Negative) Blood Type A Negative Antibody Screen NEGATIVE Diagnostic Findings Right shoulder: [id number] glenohumeral joint with significant osteophyte formation off of the humeral head with subchondral sclerotic change and cystic change.
[~2019-05-23 08:48] MED LIST changes: +ACETAMINOPHEN 500 MG TAB PO SCH; -ALBUAER2 INH; +BUPIVACAINE 0.5 % 5 MG/1 ML PF 10ML VIAL ONE; +CEFAZOLIN 1000MG 1,000 MG/7.5 ML SYR IV SCH; -CYCL10TA6 PO; +CeleBREX 200 MG CAP PO SCH; +DEXAMETHASONE SOD INJ 4 MG/ML VIAL ONE; -DIAZ-165 PO; +EPINEPHrine INJ 1 MG/ML AMP ONE; +FAMOTIDINE 20 MG TAB PO SCH; +GABAPENTIN 600 MG DOSE PO SCH; +GLYCOPYRROLATE 0.2 MG/ML VIAL ONE; +LARYING-O-JET KIT (LTA) ONE; +LIDOCAINE HCL 2% 2 ML VIAL/AMP(20MG/ML) INFIL ONE; +LR 15ML/HR IV SCH; +MIDAZOLAM HCL 1 MG/ML 2ML VIAL ONE; +NEOSTIGMINE METHYLSULFATE 5 MG/5 ML SYR ONE; +ONDANSETRON INJ 2 MG/ML 2 ML VIAL ONE; -OXGN; +PHENYLEPHRINE 100MCG/ML 5ML SYR ONE; +PROPOFOL IV EMULSION 10 MG/ML 20 ML VIAL IV ONE; +ROCURONIUM BROMIDE 10 MG/ML 5 ML VIAL ONE; +ROPIVACAINE 0.5% 5 MG/ML 30 ML VIAL ONE; -SERT-234 PO; -TEMA30CA4 PO; -TRAM-10 PO; -UMEC1AER PO; +dexAMETHasone 4 MG TAB PO SCH; +ePHEDrine sulfate 50 MG/ML SYR ONE
[2019-05-23] MEDS ORDERED: fentaNYL citrate 100 MCG/2 ML VIAL ONE (08:49)
[2019-05-23] MEDS ORDERED: ATROPINE SULFATE 0.1 MG/ML 10ML SYR IV PRN (09:39)
[2019-05-23] MEDS ORDERED: fentaNYL citrate 100 MCG/2 ML VIAL IV PRN (09:39)
[2019-05-23] MEDS ORDERED: ePHEDrine sulfate 50 MG/ML AMP IV PRN (09:39)
[2019-05-23] MEDS ORDERED: HYDROmorphone INJ 1 MG/ML SYRINGE IV PRN (09:39)
[2019-05-23] MEDS ORDERED: ONDANSETRON INJ 2 MG/ML 2 ML VIAL IV PRN ×2 (09:39→16:16)
--- NOTE | 2019-05-23 09:41 | History & Physical Bridge Note ---
Date of Service May 23, 2019 History & Physical Bridge Note I have examined the patient, reviewed the History & Physical and in the interval since the performance of the History & Physical I have noted the following changes of clinical significance: no changes noted
[2019-05-23] MEDS ORDERED: TRANEXAMIC ACID 1,000 MG **IV Pre-op IV SCH (10:00)
[2019-05-23] MEDS ORDERED: TRANEXAMIC ACID 1,000 MG **IV Intra-op IV SCH (10:30)
[2019-05-23] MEDS ORDERED: BACITRACIN INJ 50,000 UNIT VIAL ONE (10:42)
[2019-05-23] MEDS ORDERED: ORTHO JOINT ANESTHETIC ONE (10:42)
[2019-05-23] MEDS ORDERED: SODIUM CHLORIDE 0.9% INJ 10 ML VIAL ONE (11:00)
[2019-05-23] MEDS ORDERED: VANCOMYCIN HCL 1000MG/20ML VIAL ONE (11:23)
[2019-05-23] MEDS ORDERED: THROMBIN FOR SOLN 20000 UNIT KIT ONE (11:23)
[2019-05-23] MEDS ORDERED: DEXAMETHASONE SOD INJ 4 MG/ML VIAL ONE (12:14)
[2019-05-23] MEDS: ROPIVACAINE 0.5% HCL/PF 150 MG, BUPIVACAINE 0.5% MPF 30 ML, EPINEPHrine 30MG/30ML (OR U... INSTIL SCH ×2 (12:34→13:49)
[2019-05-23] MEDS ORDERED: PHENYLEPHRINE 100MCG/ML 5ML SYR ONE (12:50)
--- NOTE | 2019-05-23 13:46 | Operative Report ---
Post Operative Report Pre & Post Diagnosis Operation Date: 05/23/19 11:20 Pre-Op Diagnosis: Other Specified Arthritis, Right Shoulder Post-Op Diagnosis: Other Specified Arthritis, Right Shoulder plus tear long head biceps tendon I identified the patient and participated in the time-out.: Yes Procedure Operation Date: 05/23/19 11:20 Actual Procedures p Right Total Shoulder Arthroplasty(Right), biceps tenodesis- Aden Correia MD Surgeon Aden Correia MD Supervisor Delivery Department [place] PA-C Estimated Blood Loss 50 Findings Consistent with Post-Op Diagnosis Specimens Bone and tissue Drains None Anesthesia Type General Regional Complications none Disposition Accompanied Patient To Recovery: No Disposition: Recovery Room Indications Patient is a 63-year-old female long-standing arthritic change of the right shoulder. She is failed conservative measures including injection, anti- inflammatories and rehab. She is [id number] in the glenohumeral joint and wishes to proceed with a right total shoulder arthroplasty Description of Procedure Risks, benefits and alternatives to surgery including, but not limited to, infection DVT, pain, stiffness, need for revision surgery, failure to relieve all symptoms, damage to blood vessels, damage to nerves, risk of anesthesia were discussed with the patient and they wished to proceed. The patient was identified. Laterality was confirmed and marked. The patient received a preoperative antibiotic as well as an interscalene block. They were transferred to the operating room and placed in the supine position and induced into general endotracheal anesthesia per the anesthesia staff. The patient was then safely transferred to a slight beachchair position. The patient was secured in the [employer] positioner. All pressure points were well padded. The shoulder was prepped and draped in the usual sterile manner with ChloraPrep. I made a longitudinal incision just lateral to the coracoid, sharply incising through the skin and utilizing Bovie electrocautery to achieve hemostasis. I identified the cephalic vein and mobilized it laterally with the deltoid. I mobilize the pectoralis and mobilize this medially releasing a small portion of the upper border of the pec tendon to improve visualization. I then identified and mobilized the conjoined tendon. I identified the long head of the biceps tendon. The long head of the biceps tendon had significant tendinosis and tearing proximally. I performed an in situ biceps tenodesis with interrupted #2 FiberWire suture. I then released the subscapularis. I tagged this with interrupted 0 Ethibond suture for later repair. I pinned into place my humeral head version cutting guide and made my humeral head resection. Inferior osteophytes were removed with a rongeur. I then sequentially reamed and sequentially broached. I then placed the trial humeral stem into the shoulder. I placed retractors around the glenoid and then excised the residual biceps tendon stump and glenoid labrum. I elevated the soft tissues and the inferior aspect of the glenoid to improve exposure and released tissues circumferentially. I then positioned and drilled for the central post. I then drilled for the 3 peripheral pegs. I placed a trial glenoid into position and confirmed the size of the implant. I then placed epinephrine-soaked sponges into the peg holes. The central caged post was bone grafted with bone taken from the humeral head. The peripheral peg holes were cemented with Palacos G cement. The definitive polyethylene was then impacted into place. I then removed the trial humeral stem . I then drilled holes in my subscapularis repair. I placed a total of 3 #2 FiberWire sutures through the drill holes and placed them in a looped fashion around the stem. I then placed the definitive humeral stem. I trialed off of the definitive stem. The definitive components used were [employer] Equinox: Preserved short humeral press-fit stem: 10 Glenoid: Medium alpha Replicator plate: 4.5 Humeral head: 44 x 17 mm I thoroughly irrigated the wound. Deep tissues were anesthetized with an o rthomix solution. I then locked replicator plate into position with a torque limiting screw. I then impacted the definitive humeral head into position. I then reduced the shoulder. There was good range of motion and good stability after the reduction. I used the #2 FiberWire suture for a medial row repair of the subscapularis. I then performed a lateral row repair with a running #5 FiberWire suture. The rotator interval was closed with interrupted #2 FiberWire suture. The wound was again thoroughly irrigated and a Betadine soak was performed. The deltopectoral interval was closed with interrupted #1 Ethibond suture. The subcutaneous tissue was closed with interrupted 2-0 Vicryl suture. The skin was closed with tariq. A sterile dressing was applied. A sling was placed. All needle and sponge counts were correct at the end of the procedure. The patient was transferred to the PACU in stable condition without apparent complication. The PA-C was necessary for assistance with procedure for assistance in positioning, prepping, draping, retraction and closure. I attest to the content of the Intraoperative Record and any orders documented therein. Any exceptions are noted below.
[2019-05-23] MEDS ORDERED: ALBUT/IPRATROP 3MG/0.5MG NEB 3 ML VIAL NEB STA (14:36)
--- NOTE | 2019-05-23 14:40 | XRay Report ---
XR shoulder RT min 2V routine CLINICAL HISTORY: 63 years-old Female presenting with Post shoulder surgery. TECHNIQUE: Frontal and transscapular Y views of the right shoulder were obtained. COMPARISON: Correlation made to chest x-ray from 05/06/2019. FINDINGS: There has been interval right shoulder arthroplasty. Overlying skin tariq. Expected soft tissue emp hysema. No malalignment. No periprosthetic fracture. Acromioclavicular joint congruent. Heterogeneity of the right lung is similar in appearance as on prior chest x-ray. IMPRESSION: 1. Expected postsurgical appearance status post right shoulder arthroplasty. 2. Right chronic lung disease. Electronically signed by: Aden Ortiz M.D. 05/23/2019 2:38 PM
--- NOTE | 2019-05-23 14:55 | Anesthesiology Progress Note ---
Date of Service May 23, 2019 Anesthesia Post Procedure Vital Signs Vital Signs: Temp Pulse Pulse Resp BP Pulse Ox 05/23/19 14:50 83 22 101/68 98 05/23/19 14:46 59 L 16 96 05/23/19 14:40 84 18 91/67 L 98 05/23/19 14:30 86 22 100/71 96 05/23/19 14:20 90 20 113/73 97 05/23/19 14:13 36.8 C 90 22 115/68 97 05/23/19 09:22 36.6 C 80 20 114/75 98 Transfer of Care Handoff Completed per policy Notes Mental Status: alert / awake / arousable and participated in evaluation Patient Amnestic to Procedure: Yes Nausea / Vomiting: adequately controlled Pain: adequately controlled Airway Patency, RR, SpO2: stable & adequate BP & HR: stable & adequate Hydration State: stable & adequate Anesthetic Complications: no major complications apparent and Pt Satisfied with anesthetic care
[2019-05-23] MEDS ORDERED: METOCLOPRAMIDE HCL INJ 5 MG/ML 2 ML VIAL IV PRN (16:16)
[2019-05-23] MEDS ORDERED: BISACODYL 10 MG SUPP PR PRN (16:16)
[2019-05-23] MEDS ORDERED: ALBUTEROL 0.083% NEBU SOLN 3 ML VIAL INH PRN (16:16)
[2019-05-23] MEDS ORDERED: NALOXONE HCL 0.4 MG/1 ML VIAL/CARP IV PRN (16:16)
[2019-05-23] MEDS ORDERED: MAGNESIUM HYDROXIDE SUSP 30 ML UDC PO PRN (16:16)
[2019-05-23] MEDS ORDERED: LORazepam 1 MG TAB PO PRN (16:21)
[2019-05-23] MEDS ORDERED: CYCLOBENZAPRINE HCL 10 MG TAB PO PRN (16:30)
[2019-05-23] MEDS: CEFAZOLIN 1000MG 1,000 MG/7.5 ML SYR IV SCH (20:30)
[2019-05-23] MEDS: SENNA 8.6 MG TAB PO SCH (20:31)
[2019-05-23] MEDS: DOCUSATE SODIUM 100 MG CAP PO SCH (20:31)
[2019-05-23] MEDS: SODIUM CHLORIDE 0.9% 1000ML 1,000 ML IV SCH (20:31)
[2019-05-23] MEDS: TRAZODONE HCL 50 MG TAB PO SCH (20:32)
[2019-05-23] MEDS: ALBUTEROL HFA 8 GM INHALER INH PRN (22:01)
[2019-05-23] MEDS: ACETAMINOPHEN 500 MG TAB PO SCH (22:01)
[2019-05-23] MEDS: [UNRECOGNIZED DRUG - OTHER] SCH (23:58)
[2019-05-24] MEDS: OXYCODONE HCL IR 5 MG TAB (IMMEDIATE RELEASE) PO PRN ×3 (02:08→11:58)
[2019-05-24] MEDS: SODIUM CHLORIDE 0.9% 1000ML 1,000 ML IV SCH (05:03)
[2019-05-24] MEDS: CEFAZOLIN 1000MG 1,000 MG/7.5 ML SYR IV SCH (05:03)
[2019-05-24] MEDS: ACETAMINOPHEN 500 MG TAB PO SCH ×3 (05:04→22:20)
[2019-05-24 05:58] LABS: Basophils # (auto) 0.01 K/uL (0-0.2); Basophils % (auto) 0.1 %; Hematocrit (blood only) 32.4 % (37-47); Hemoglobin 11.1 g/dL (12.0-16.0); Immature Granulocytes # (auto) 0.01 K/uL (0.00-0.02); Immature Granulocytes % (auto) 0.1 %; Lymphocytes # (auto) 0.92 K/uL (1.2-3.4); Lymphocytes % (auto) 9.7 %; Mean Corpuscular Hemoglobin 31.8 pg (25-34); Mean Corpuscular Hgb Conc 34.3 g/dL (32-36); Mean Corpuscular Volume 92.8 fL (80-100); Mean Platelet Volume 9.5 fL (7.4-10.4); Monocytes # (auto) 0.75 K/uL (0.11-0.59); Monocytes % (auto) 7.9 %; Neutrophils # (auto) 7.79 K/uL (1.4-6.5); Neutrophils % (auto) 82.2 %; Platelet Count 125 K/uL (130-400); RDW Coefficient of Variation 13.7 % (11.5-14.5); RDW Standard Deviation 46.3 fL (36.4-46.3); Red Blood Count 3.49 M/uL (4.2-5.4); White Blood Count 9.48 K/uL (4.8-10.8)
[2019-05-24 06:20] LABS: Calcium 8.5 mg/dl (8.5-10.1); Creatinine Clr Calc Pharmacy 57.1 ml/min; Est GFR (African American) 77.3; Est GFR (Non-African American) 66.7; Potassium 4.3 mmol/L (3.5-5.1)
[2019-05-24] MEDS: [UNRECOGNIZED DRUG - OTHER] SCH (07:57)
[2019-05-24] MEDS: MULTIVITAMIN TAB PO SCH (07:57)
[2019-05-24] MEDS: DOCUSATE SODIUM 100 MG CAP PO SCH ×2 (07:57→20:30)
[2019-05-24] MEDS: SERTRALINE HCL 100 MG TABLET PO SCH (07:57)
--- NOTE | 2019-05-24 08:05 | Anesthesiology Progress Note ---
Date of Service May 24, 2019 Anesthesia Post Procedure Vital Signs Vital Signs: Temp Pulse Pulse Resp BP Pulse Ox 05/24/19 07:52 36.6 C 79 20 110/62 98 05/24/19 02:47 36.6 C 80 16 92/58 L 96 05/23/19 23:22 36.7 C 81 16 92/54 L 96 05/23/19 18:48 37 C 91 H 18 95/58 L 94 05/23/19 17:39 37.6 C H 93 H 18 100/66 95 05/23/19 16:40 37 C 93 H 18 105/68 96 05/23/19 16:14 36.9 C 88 18 91/57 L 96 05/23/19 15:51 36.7 C 88 18 94/60 L 96 05/23/19 15:30 36.3 C L 86 20 92/59 L 94 05/23/19 15:20 86 20 95/62 L 95 05/23/19 15:10 86 20 99/61 L 95 05/23/19 15:00 36.2 C L 87 20 103/64 96 05/23/19 14:50 83 22 101/68 98 05/23/19 14:46 59 L 16 96 05/23/19 14:40 84 18 91/67 L 98 05/23/19 14:30 86 22 100/71 96 05/23/19 14:20 90 20 113/73 97 05/23/19 14:13 36.8 C 90 22 115/68 97 05/23/19 09:22 36.6 C 80 20 114/75 98 Pain Intensity Left Shoulder: Pain Intensity: 6 Notes Mental Status: alert / awake / arousable Patient Amnestic to Procedure: Yes Nausea / Vomiting: adequately controlled Pain: adequately controlled Airway Patency, RR, SpO2: stable & adequate BP & HR: stable & adequate Hydration State: stable & adequate Anesthetic Complications: no major complications apparent
--- NOTE | 2019-05-24 09:02 | Orthopedic Progress Note ---
Date of Service May 24, 2019 Assessment & Plan (1) Primary osteoarthritis, right shoulder: Postop day 1 status post right total shoulder arthroplasty PT/OT protocols. DVT prophylaxis-aspirin once daily, SCDs DC planning-to discuss with case management. Present on Admission?: Yes Subjective Patient currently sitting up in bed awake and alert. Having some pain in the right shoulder but states she just took some of her pain medications. No other complaints. Denies any shortness of breath, chest pain, nausea or vomiting. Physical Exam Physical Exam: Dressings are clean, dry, and intact. She states that she still has some decreased sensation in all of her fingers of her hand. She has good range of motion of her hand and fingers. Capillary refill is less than 2 seconds. Good wrist range of motion as well. Abduction sling in place Results & Data Vital Signs (Past 12 Hours) Vital Signs Temp Pulse Pulse Resp BP Pulse Ox 05/24/19 07:52 36.6 C 79 20 110/62 98 05/24/19 02:47 36.6 C 80 16 92/58 L 96 05/23/19 23:22 36.7 C 81 16 92/54 L 96 Laboratory Results Laboratory Results WBC 9.48 K/uL (4.8-10.8) 05/24/19 05:24 RBC 3.49 M/uL (4.2-5.4) L 05/24/19 05:24 Hgb 11.1 g/dL (12.0-16.0) L 05/24/19 05:24 Hct 32.4 % (37-47) L 05/24/19 05:24 MCV 92.8 fL (80-100) 05/24/19 05:24 MCH 31.8 pg (25-34) 05/24/19 05:24 MCHC 34.3 g/dL (32-36) 05/24/19 05:24 RDW Std Deviation 46.3 fL (36.4-46.3) 05/24/19 05:24 RDW Coeff of [place] 13.7 % (11.5-14.5) 05/24/19 05:24 Plt Count 125 K/uL (130-400) L 05/24/19 05:24 MPV 9.5 fL (7.4-10.4) 05/24/19 05:24 Immature Gran % (Auto) 0.1 % 05/24/19 05:24 Neut % (Auto) 82.2 % 05/24/19 05:24 Lymph % (Auto) 9.7 % 05/24/19 05:24 [place] % (Auto) 7.9 % 05/24/19 05:24 Eos % (Auto) 0.0 % 05/24/19 05:24 Baso % (Auto) 0.1 % 05/24/19 05:24 Immature Gran # (Auto) 0.01 K/uL (0.00-0.02) 05/24/19 05:24 Neut # (Auto) 7.79 K/uL (1.4-6.5) H 05/24/19 05:24 Lymph # (Auto) 0.92 K/uL (1.2-3.4) L 05/24/19 05:24 [place] # (Auto) 0.75 K/uL (0.11-0.59) H 05/24/19 05:24 Eos # (Auto) 0.00 K/uL (0-0.5) 05/24/19 05:24 Baso # (Auto) 0.01 K/uL (0-0.2) 05/24/19 05:24 PT 10.3 Seconds (9.0-12.0) 05/06/19 15:21 INR 1.0 (0.9-1.1) 05/06/19 15:21 APTT 25.6 Seconds (21.0-31.0) 05/06/19 15:21 PTT Ratio 0.9 05/06/19 15:21 Sodium 141 mmol/L (136-145) 05/24/19 05:24 Potassium 4.3 mmol/L (3.5-5.1) 05/24/19 05:24 Chloride 109 mmol/L (98-107) H 05/24/19 05:24 Carbon Dioxide 25 mmol/L (21-32) 05/24/19 05:24 Anion Gap 7.0 (3-11) 05/24/19 05:24 BUN 15 mg/dl (7-18) 05/24/19 05:24 Creatinine 0.91 mg/dl (0.6-1.2) 05/24/19 05:24 Est Cr Clr Drug Dosing 57.1 ml/min 05/24/19 05:24 Est GFR ( Amer) 77.3 05/24/19 05:24 Est GFR (Non-Af Amer) 66.7 05/24/19 05:24 BUN/Creatinine Ratio 16.0 (10-20) 05/24/19 05:24 Glucose 133 mg/dl (70-99) H 05/24/19 05:24 Estimat Average Glucose 111 mg/dl 05/06/19 15:21 Hemoglobin A1c 5.5 % (4.5-5.6) 05/06/19 15:21 Calcium 8.5 mg/dl (8.5-10.1) 05/24/19 05:24 Albumin 3.9 gm/dl (3.4-5.0) 05/06/19 15:21 Urine Color Yellow 05/06/19 Unknown Urine Appearance Clear (Clear) 05/06/19 Unknown Urine pH 5.0 (4.5-7.5) 05/06/19 Unknown Ur Specific [place] 1.027 (1.000-1.030) 05/06/19 Unknown Urine Protein Negative (Negative) 05/06/19 Unknown Urine Glucose (UA) Negative (Negative) 05/06/19 Unknown Urine Ketones Negative (Negative) 05/06/19 Unknown Urine Blood Negative (Negative) 05/06/19 Unknown Urine Nitrite Negative (Negative) 05/06/19 Unknown Urine Bilirubin Negative (Negative) 05/06/19 Unknown Urine Urobilinogen Negative (Negative) 05/06/19 Unknown Ur Leukocyte Esterase Negative (Negative) 05/06/19 Unknown Blood Type A Negative 05/06/19 15:21 Antibody Screen NEGATIVE 05/06/19 15:21
[2019-05-24] MEDS: UMECLIDINIUM INH SCH (09:26)
[2019-05-24] MEDS: [UNRECOGNIZED DRUG - OTHER] INH SCH (09:26)
[2019-05-24] MEDS: VILANTEROL INH SCH (09:26)
[2019-05-24] MEDS: HYDROmorphone INJ 0.5 MG/0.5 ML SYR IV PRN ×3 (10:42→20:25)
[2019-05-24] MEDS: ASPIRIN 81 MG ECTAB PO SCH (11:08)
[2019-05-24] MEDS: ALBUTEROL HFA 8 GM INHALER INH PRN (15:36)
[2019-05-24] MEDS: TRAZODONE HCL 50 MG TAB PO SCH (20:30)
[2019-05-24] MEDS: SENNA 8.6 MG TAB PO SCH (20:30)
[2019-05-25] MEDS: OXYCODONE HCL IR 5 MG TAB (IMMEDIATE RELEASE) PO PRN ×2 (00:25→07:44)
[2019-05-25] MEDS: HYDROmorphone INJ 0.5 MG/0.5 ML SYR IV PRN (02:42)
[2019-05-25] MEDS: ACETAMINOPHEN 500 MG TAB PO SCH (05:40)
[2019-05-25] MEDS: VILANTEROL INH SCH (07:38)
[2019-05-25] MEDS: UMECLIDINIUM INH SCH (07:38)
[2019-05-25] MEDS: [UNRECOGNIZED DRUG - OTHER] INH SCH (07:38)
[2019-05-25] MEDS: DOCUSATE SODIUM 100 MG CAP PO SCH (07:40)
[2019-05-25] MEDS: MULTIVITAMIN TAB PO SCH (07:41)
[2019-05-25] MEDS: SERTRALINE HCL 100 MG TABLET PO SCH (07:41)
[2019-05-25] MEDS: ASPIRIN 81 MG ECTAB PO SCH (07:41)
--- NOTE | 2019-05-25 09:36 | Orthopedic Progress Note ---
Date of Service May 25, 2019 Assessment & Plan (1) Primary osteoarthritis, right shoulder: Postop day 2 status post right total shoulder arthroplasty PT/OT protocols. DVT prophylaxis-aspirin once daily, SCDs MIKE planning-she would like to go home today with OPPT. Subjective Patient currently sitting up in chair resting. Having some pain in the right shoulder but states she just took some of her pain medications and the pain is mild. No other complaints. Denies any shortness of breath, chest pain, nausea or vomiting. Physical Exam Physical Exam: Digits mobile, NVI. Calves soft, non tender. Dressing in place to right shoulder. using sling Results & Data Vital Signs (Past 12 Hours) Vital Signs Temp Pulse Resp BP Pulse Ox Pulse Ox 05/25/19 07:48 94 05/25/19 07:01 36.8 C 78 16 96/61 L 97 05/24/19 23:45 97 05/24/19 23:30 36.7 C 78 16 97/60 L 97
--- NOTE | 2019-05-25 19:40 | Discharge Summary ---
Date of Service May 25, 2019 Admission HPI Per Admitting Provider Patient is a 63 year old female with PMHx significant for depression, COPD, sarcoidosis, current every day smoker who presents with ongoing and significant right shoulder pain. Her pain is affecting her ability to carry out daily activities. She previously has underwent cortisone injections and NSAIDs with minimal relief of her pain. Should would like to proceed with surgical management. Patient denies headaches, sweats, fevers, chills, double vision, blurred vision, cough, sore throat, dysphagia, chest pain, sob, wheezing, n/v/d/c, numbness, tingling, fatigue, urinary symptoms, mood disorders. ROS positive for right shoulder pain and stiffness. Admission Exam Per Admitting Provider Constitutional: well developed and well nourished; no acute distress Eyes: PERRL, conjunctivae normal, anicteric sclerae ENMT: external ear and nose normal, oropharynx normal Neck: trachea midline, no thyromegaly Respiratory: normal respiratory effort, lungs clear to auscultation Cardiovascular: RRR, no murmur, no edema Musculoskeletal: Right shoulder-FF 0-90 degrees, abduction 0-80 degrees, ER 0-30 degrees. Positive impingement signs. Rotator cuff strength well preserved on exam, however painful with testing. Skin: no rashes, warm and dry Neurologic: patellar DTR's 2+ bilat, sensation intact Psychiatric: A+Ox3, euthymic affect Principal Diagnosis Right shoulder osteoarthritis, COPD Discharge Exam Constitutional well developed and well nourished; no acute distress Eyes PERRL, conjunctivae normal, anicteric sclerae ENMT external ear and nose normal, oropharynx normal Neck trachea midline, no thyromegaly Respiratory normal respiratory effort, lungs clear to auscultation Cardiovascular RRR, no murmur, no edema Skin no rashes, warm and dry Neurologic patellar DTR's 2+ bilat, sensation intact Psychiatric A+Ox3, euthymic affect Discharge Data Allergies Allergy/AdvReac Type Severity Reaction Status Date / Time No Known Allergies Allergy Unknown Verified 05/23/19 09:29 Consultations 05/23/19 16:16 Consult Case Management - Discharge Planning Routine Procedures Performed Operation Date: 05/23/19 11:20 Actual Procedures p Right Total Shoulder Arthroplasty(Right) - Aden Correia MD Ordered Studies 05/23/19 05:00 US - OR guided needle placemen Routine 05/23/19 09:39 US - OR guided needle placemen Routine Hospital Course (1) Primary osteoarthritis, right shoulder: Patient presented for same day admission following right total shoulder arthroplasty on 05/23/19. She tolerated procedure well. The Patient had an uneventful hospital course. Post-operatively, her activity was progressed and well tolerated. They were placed on continuous pulse ox post operatively due to history of COPD/sarcoidosis and an everyday smoker. Labs remained stable- lowest hemoglobin recorded: 11.1. Pain controlled on oral medications. Please refer to daily progress notes and PT notes for complete details. After exam on 05/25/19, patient was felt to be stable for discharge home with home health PT. She was discharged with 1 week of Cefradroxil due to impaired healing potential and increased risk of infection due to smoking history. Patient will f/u in the office in about 2 weeks for further evaluation including x-rays and incision check, sooner if having any issues or concerns. Lab Results 05/06/19 05/06/19 05/06/19 Range/Units 15:21 15:21 15:21 WBC 6.08 (4.8-10.8) K/uL RBC 4.60 (4.2-5.4) M/uL Hgb 14.6 (12.0-16.0) g/dL Hct 43.0 (37-47) % MCV 93.5 (80-100) fL MCH 31.7 (25-34) pg MCHC 34.0 (32-36) g/dL RDW Std Deviation (36.4-46.3) fL RDW Coeff of Perry (11.5-14.5) % Plt Count 187 (130-400) K/uL MPV (7.4-10.4) fL Immature Gran % (Auto) 0.3 % Neut % (Auto) 59.6 % Lymph % (Auto) 27.0 % Emery % (Auto) 8.1 % Eos % (Auto) 3.8 % Baso % (Auto) 1.2 % Immature Gran # (Auto) 0.02 (0.00-0.02) K/uL Neut # (Auto) 3.63 (1.4-6.5) K/uL Lymph # (Auto) 1.64 (1.2-3.4) K/uL Emery # (Auto) 0.49 (0.11-0.59) K/uL Eos # (Auto) 0.23 (0-0.5) K/uL Baso # (Auto) 0.07 (0-0.2) K/uL PT 10.3 (9.0-12.0) Seconds INR 1.0 (0.9-1.1) APTT 25.6 (21.0-31.0) Seconds PTT Ratio 0.9 Sodium 136 (136-145) mmol/L Potassium 4.3 (3.5-5.1) mmol/L Chloride 103 (98-107) mmol/L Carbon Dioxide 29 (21-32) mmol/L Anion Gap 4.0 (3-11) BUN 23 H (7-18) mg/dl Creatinine 1.07 (0.6-1.2) mg/dl Est Cr Clr Drug Dosing 48.4 ml/min Est GFR ( Amer) 63.5 Est GFR (Non-Af Amer) 54.8 BUN/Creatinine Ratio 21.9 H (10-20) Glucose 105 H (70-99) mg/dl Estimat Average Glucose mg/dl Hemoglobin A1c (4.5-5.6) % Calcium 9.4 (8.5-10.1) mg/dl Albumin 3.9 (3.4-5.0) gm/dl Urine Color Urine Appearance (Clear) Urine pH (4.5-7.5) Ur Specific [place] (1.000-1.030) Urine Protein (Negative) Urine Glucose (UA) (Negative) Urine Ketones (Negative) Urine Blood (Negative) Urine Nitrite (Negative) Urine Bilirubin (Negative) Urine Urobilinogen (Negative) Ur Leukocyte Esterase (Negative) Hepatitis C Ab Screen (Neg) Blood Type Antibody Screen 05/06/19 05/06/19 05/06/19 Range/Units 15:21 15:21 Unknown WBC (4.8-10.8) K/uL RBC (4.2-5.4) M/uL Hgb (12.0-16.0) g/dL Hct (37-47) % MCV (80-100) fL MCH (25-34) pg MCHC (32-36) g/dL RDW Std Deviation (36.4-46.3) fL RDW Coeff of Perry (11.5-14.5) % Plt Count (130-400) K/uL MPV (7.4-10.4) fL Immature Gran % (Auto) % Neut % (Auto) % Lymph % (Auto) % Emery % (Auto) % Eos % (Auto) % Baso % (Auto) % Immature Gran # (Auto) (0.00-0.02) K/uL Neut # (Auto) (1.4-6.5) K/uL Lymph # (Auto) (1.2-3.4) K/uL Emery # (Auto) (0.11-0.59) K/uL Eos # (Auto) (0-0.5) K/uL Baso # (Auto) (0-0.2) K/uL PT (9.0-12.0) Seconds INR (0.9-1.1) APTT (21.0-31.0) Seconds PTT Ratio Sodium (136-145) mmol/L Potassium (3.5-5.1) mmol/L Chloride (98-107) mmol/L Carbon Dioxide (21-32) mmol/L Anion Gap (3-11) BUN (7-18) mg/dl Creatinine (0.6-1.2) mg/dl Est Cr Clr Drug Dosing ml/min Est GFR ( Amer) Est GFR (Non-Af Amer) BUN/Creatinine Ratio (10-20) Glucose (70-99) mg/dl Estimat Average Glucose 111 mg/dl Hemoglobin A1c 5.5 (4.5-5.6) % Calcium (8.5-10.1) mg/dl Albumin (3.4-5.0) gm/dl Urine Color Yellow Urine Appearance Clear (Clear) Urine pH 5.0 (4.5-7.5) Ur Specific [place] 1.027 (1.000-1.030) Urine Protein Negative (Negative) Urine Glucose (UA) Negative (Negative) Urine Ketones Negative (Negative) Urine Blood Negative (Negative) Urine Nitrite Negative (Negative) Urine Bilirubin Negative (Negative) Urine Urobilinogen Negative (Negative) Ur Leukocyte Esterase Negative (Negative) Hepatitis C Ab Screen (Neg) Blood Type A Negative Antibody Screen NEGATIVE 05/24/19 05/24/19 05/24/19 Range/Units 05:24 05:24 05:24 WBC 9.48 (4.8-10.8) K/uL RBC 3.49 L (4.2-5.4) M/uL Hgb 11.1 L (12.0-16.0) g/dL Hct 32.4 L (37-47) % MCV 92.8 (80-100) fL MCH 31.8 (25-34) pg MCHC 34.3 (32-36) g/dL RDW Std Deviation 46.3 (36.4-46.3) fL RDW Coeff of Perry 13.7 (11.5-14.5) % Plt Count 125 L (130-400) K/uL MPV 9.5 (7.4-10.4) fL Immature Gran % (Auto) 0.1 % Neut % (Auto) 82.2 % Lymph % (Auto) 9.7 % Emery % (Auto) 7.9 % Eos % (Auto) 0.0 % Baso % (Auto) 0.1 % Immature Gran # (Auto) 0.01 (0.00-0.02) K/uL Neut # (Auto) 7.79 H (1.4-6.5) K/uL Lymph # (Auto) 0.92 L (1.2-3.4) K/uL Emery # (Auto) 0.75 H (0.11-0.59) K/uL Eos # (Auto) 0.00 (0-0.5) K/uL Baso # (Auto) 0.01 (0-0.2) K/uL PT (9.0-12.0) Seconds INR (0.9-1.1) APTT (21.0-31.0) Seconds PTT Ratio Sodium 141 (136-145) mmol/L Potassium 4.3 (3.5-5.1) mmol/L Chloride 109 H (98-107) mmol/L Carbon Dioxide 25 (21-32) mmol/L Anion Gap 7.0 (3-11) BUN 15 (7-18) mg/dl Creatinine 0.91 (0.6-1.2) mg/dl Est Cr Clr Drug Dosing 57.1 ml/min Est GFR ( Amer) 77.3 Est GFR (Non-Af Amer) 66.7 BUN/Creatinine Ratio 16.0 (10-20) Glucose 133 H (70-99) mg/dl Estimat Average Glucose mg/dl Hemoglobin A1c (4.5-5.6) % Calcium 8.5 (8.5-10.1) mg/dl Albumin (3.4-5.0) gm/dl Urine Color Urine Appearance (Clear) Urine pH (4.5-7.5) Ur Specific [place] (1.000-1.030) Urine Protein (Negative) Urine Glucose (UA) (Negative) Urine Ketones (Negative) Urine Blood (Negative) Urine Nitrite (Negative) Urine Bilirubin (Negative) Urine Urobilinogen (Negative) Ur Leukocyte Esterase (Negative) Hepatitis C Ab Screen Neg (Neg) Blood Type Antibody Screen Total Time Total Time Spent Total Time Spent (In Minutes): 20 Discharge Plan Discharge Items Patient Disposition: Home - Home Health Services Reason For Visit: Other Specified Arthritis, Right Shoulder Discharge Diagnosis: Osteoarthritis Right Shoulder Activity: Per Instructions section Weightbearing: Right non-weightbearing Non-emergency contact: Surgeon Call non-emergency contact if: your pain is not controlled, your temperature is above 101.5, your wound has increased redness and your wound has increased drainage Follow-up/Referrals: Nichole Antunez CRNP [Primary Care Provider] - Diet: Regular Addtl Attending Provider Instructions: ACTIVITY RECOMMENDATIONS: SELF CARE INSTRUCTIONS AFTER TOTAL SHOULDER ARTHROPLASTY A. You may do daily exercises as taught in physical therapy while in hospital. No lifting with the operative arm. Please schedule your outpatient physical therapy appointment to begin within 2-3 days after leaving the hospital. Specific restrictions will be written on your physical therapy prescription that is provided to you. B. You are to wear your sling/immobilizer at all times EXCEPT when performing your daily exercises, participating in physical therapy and for hygiene purposes. C. You may perform dry, daily dressing changes. Please keep your incision covered. You may shower 48 hours after surgery. Do not apply soap or any ointment/lotions directly over incision. Do not soak incision in bath tub/swimming pool. D. You may use ice as needed to operative shoulder. SPECIAL CARE INSTRUCTIONS: MEDICATION INSTRUCTIONS: *It is recommended you take Aspirin 325mg daily for four weeks post-op. VERY IMPORTANT TO READ AND REVIEW A. There are a few signs you need to watch for after you are home. Call [facility] at [phone] if you experience any of the followin. Increased severe shoulder pain. Some pain is expected especially when you exercise. 2. Increased swelling in you shoulder or arm; pain or swelling in either upper extremity. 3. Any fluid drainage from the incision. 4. Shortness of breath or chest pain. B. Please call [facility] at [phone] if you have any questions or concerns about your operation or recovery. C. Call your physician if: 1. Temperature is greater than 101 degrees (F). 2. Pain is not relieved by prescribed pain medications. 3. Increase drainage or redness from incision. 4. Unanswered questions or concerns. FOLLOW UP VISIT: Please call [facility] at [phone] to schedule a follow up appointment with Dr. Correia or his PA in 12-14 days from your surgery date. Pending Studies at Discharge: No Stand-Alone Forms: My [employer], Opioid Pain Management, Smoking Cessation Medications and DC Order Prescriptions: New oxycodone 5 mg tablet 5 mg PO Q4H MDD 6 PRN (Reason: pain) Qty: 30 RF: 0 sennosides [Senokot] 8.6 mg Tablet 17.2 mg PO HS PRN (Reason: constipation) Qty: 30 RF: 0 acetaminophen [Tylenol Extra Strength] 500 mg Tablet 1,000 mg PO Q8 14 Days Qty: 84 RF: 0 aspirin [Aspirin Low Dose] 81 mg tablet,delayed release (DR/EC) 81 mg PO DAILY Qty: 30 RF: 0 cefadroxil 500 mg capsule 500 mg PO BID Qty: 14 RF: 0 Continued trazodone 50 mg tablet 50 mg PO HS Qty: 90 RF: 1 albuterol sulfate 2.5 mg /3 mL (0.083 %) solution for nebulization 2.5 mg INHALATION QID PRN (Reason: Shortness Of Breath Or Wheezing) Qty: 90 RF: 5 sertraline 100 mg tablet 200 mg PO QAM Qty: 60 RF: 5 Anoro Ellipta 62.5-25 mcg/actuation blister with device 1 puffs inhalation QAM Qty: 60 RF: 5 albuterol sulfate [Ventolin HFA] 90 mcg/actuation HFA aerosol inhaler 2 puff inhalation QID PRN (Reason: Shortness Of Breath Or Wheezing) Qty: 18 RF: 5 buspirone 10 mg tablet 10 mg PO BID Qty: 60 RF: 5 cyclobenzaprine 10 mg tablet 10 mg PO TID PRN (Reason: Muscle Spasm) Qty: 60 RF: 5 lorazepam 1 mg tablet 1 mg PO DAILY PRN (Reason: Anxiety) Qty: 30 RF: 3 Discontinued meloxicam 7.5 mg tablet 7.5 mg PO DAILY PRN (Reason: shoulder pain) Qty: 30 RF: 2 Discharge Orders: Discharge Order (Routine); Ordered 05/25/19 Ordered By: Theresa Rolle/Other Patient Handouts: Surgery Prevent DVT After Admission Data Admit Date/Time: 05/23/19 14:22 Attending Provider: Aden Correia Admit Provider: Aden Correia Primary Care Provider: Nichole Antunez Other Providers: [place] Other Interventions: Discharge Summary Assessment (RN) Last Done: 05/25/19 09:46 DC Date/Time DO NOT enter until pt leaves facility: 05/25/19 10:48
== END 2019-05-25 10:48 | disposition home health service (06) | DRG 483 ==
LOC: ASU 08:48 → 3E 14:22

== ENCOUNTER 2019-05-28 16:47 | Inpatient (IN) ==
[2019-05-28] MEDS ORDERED: methylPREDNISolone 125 MG/2 ML VIAL IV STA (17:10)
[2019-05-28] MEDS ORDERED: ALBUT/IPRATROP 3MG/0.5MG NEB 3 ML VIAL INH STA (17:10)
[2019-05-28] MEDS ORDERED: SODIUM CHLORIDE 0.9% 1000ML 1,000 ML IV SCH (17:15)
--- NOTE | 2019-05-28 17:39 | XRay Report ---
SINGLE VIEW CHEST CLINICAL HISTORY: Dyspnea. FINDINGS: An AP, portable, upright chest radiograph is compared to study dated 05/06/2019 and correlat ed with chest CT dated 09/12/2017. The examination is degraded by portable technique and patient rotat ion. The heart is mildly enlarged noting atherosclerotic calcification of the thoracic aorta. The pul monary vasculature is noncongested. There are calcified mediastinal and hilar lymph nodes. Advanced e mphysematous change is again noted. There are masslike upper lobe opacities with numerous calcified a nd noncalcified pulmonary nodules. No airspace consolidation, large pleural effusion, or pneumothorax is seen. The skeletal structures are osteopenic. There are healed right-sided rib fractures. A right shoulder arthroplasty is new from previous. Skin clips project over the right shoulder. IMPRESSION: 1. No acute cardiopulmonary abnormality. 2. Advanced emphysema and chronic parenchymal changes as above. 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 Electronically signed by: Logan Munson M.D. 05/28/2019 5:37 PM
[2019-05-28 18:01] LABS: Base Excess VBG 3.5 mEq/L; Oxygen Saturation VBG 84.8 %; pH VBG 7.47 (7.36-7.41)
[2019-05-28 18:07] LABS: Basophils # (auto) 0.05 K/uL (0-0.2); Basophils % (auto) 0.8 %; Eosinophils # (auto) 0.29 K/uL (0-0.5); Eosinophils % (auto) 4.6 %; Hematocrit (blood only) 35.3 % (37-47); Immature Granulocytes # (auto) 0.01 K/uL (0.00-0.02); Immature Granulocytes % (auto) 0.2 %; Lymphocytes # (auto) 1.02 K/uL (1.2-3.4); Lymphocytes % (auto) 16.2 %; Mean Corpuscular Hemoglobin 31.9 pg (25-34); Mean Corpuscular Volume 93.9 fL (80-100); Mean Platelet Volume 9.5 fL (7.4-10.4); Monocytes # (auto) 0.58 K/uL (0.11-0.59); Monocytes % (auto) 9.2 %; Neutrophils # (auto) 4.36 K/uL (1.4-6.5); Platelet Count 183 K/uL (130-400); RDW Coefficient of Variation 13.4 % (11.5-14.5); RDW Standard Deviation 46.2 fL (36.4-46.3); Red Blood Count 3.76 M/uL (4.2-5.4); White Blood Count 6.31 K/uL (4.8-10.8)
[2019-05-28 18:13] LABS: Albumin Level 3.2 gm/dl (3.4-5.0); BUN Creatinine Ratio 12.6 (10-20); Calcium 9.2 mg/dl (8.5-10.1); Creatinine Clr Calc Pharmacy 64.9 ml/min; Est GFR (Non-African American) 76.8; Potassium 3.8 mmol/L (3.5-5.1)
[2019-05-28 18:15] LABS: Partial Thromboplastin Ratio 1.1; Partial Thromboplastin Time 28.6 Seconds (21.0-31.0); Prothrombin Time 10.2 Seconds (9.0-12.0)
[2019-05-28 18:20] LABS: Albumin Globulin Ratio 0.9 (0.9-2); Bilirubin,Total 0.6 mg/dl (0.2-1); Globulin 3.7 gm/dl (2.5-4.0); Total Protein 6.9 gm/dl (6.4-8.2); Troponin I 0.087 ng/ml (0-0.045)
[2019-05-28] MEDS ORDERED: MoRPHine SULFATE 4 MG/ML 1 ML CARP\\VIAL IV STA (18:35)
[2019-05-28] MEDS ORDERED: OPTIRAY 320 125ml IV PRN (18:46)
--- NOTE | 2019-05-28 19:06 | CT Scan Report ---
CT ANGIOGRAPHY OF THE CHEST, PULMONARY EMBOLUS PROTOCOL CLINICAL HISTORY: Dyspnea, hypoxia, h/o COPD and recent shoulder arthroplasty. COMPARISON STUDY: Chest CT September 12, 2017 and January 25, 2018. Chest radiograph performed earlier toda y. TECHNIQUE: Following IV administration of 85 mL of Optiray-320, helical axial images of the chest wer e obtained utilizing the pulmonary embolus protocol. Maximal intensity projections and sagittal and coronal reformats were viewed on an independent 3D workstation. IV contrast was administered without complication. Automated exposure control was utilized for the study. A dose lowering technique was utilized adhering to the principles of ALARA. CT DOSE: 581.42 mGy.cm FINDINGS: Note is made of a small segmental pulmonary embolus within the apical segment of the right upper lobe shown on axial image 167 of 263. The size of the heart is normal. There is no pericardial effusion. Emphysema is noted. Architectural distortion with parenchymal calcifications is noted as w ell as perihilar/upper lobe opacities which have decreased since CT of January 25, 2018. Scattered groun dglass opacities are noted. There is no pulmonary infarct. No pneumothorax is noted. There is a trace left pleural effusion. There are calcified thoracic lymph nodes. No enlarged thoracic lymph nodes ar e present. A recent right shoulder arthroplasty is partially imaged. IMPRESSION: 1. Small segmental pulmonary embolus within the apical segment of the right upper lobe. 2. Architectural distortion with perihilar/upper lobe conglomerate opacities which have decreased sin ce CT of January 25, 2018. These favor a granulomatous process such as sarcoidosis or pneumoconiosis. 3. Emphysema. Electronically signed by: Carlos Cunha M.D. 05/28/2019 7:05 PM
[2019-05-28] MEDS ORDERED: HEPARIN SOD 5,000 UNIT/0.5 ML VIAL ONE (20:17)
[2019-05-28] MEDS: HEPARIN SODIUM/DEXTROSE 25,000 UNITS/500 ML BAG IV SCH (20:25)
--- NOTE | 2019-05-28 21:31 | History & Physical Report ---
Date of Service May 28, 2019 Assessment & Plan (1) Pulmonary embolism: 83-year-old female with history of COPD, sarcoidosis, current every day smoker, depression, anxiety, chronic low back pain secondary to lumbar herniation and degenerative disc disease, recent right shoulder surgery on 05/23/2019 presents with shortness of breath on exertion and worsening cough x3 days. Pulmonary embolism Likely provoked by recent surgery right shoulder arthroplasty on 05/23/2019 despite being on aspirin 81 and lower extremity compression stockings Patient mildly hypoxic, requiring 2 L nasal cannula CTA chest: Small segmental PE apical segment of right upper lobe, emphysema, Architectural distortion with perihilar/upper lobe conglomerate opacities which have decreased since CT of January 25, 2018. 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 sarcoidosis Started on heparin drip with half bolus Lower extremity venous Doppler ordered to rule out DVT Supplemental O2 as needed Patient admitted to telemetry for monitoring Elevated troponin and new EKG changes Concern for possible right heart strain versus demand ischemia versus WI Patient does not have any chest pain Troponin elevated to 0.087, previously negative EK normal sinus rhythm concern for V2 to V6 inverted T waves and ST depression, V1 poor R wave progression otherwise no changes QTC 536 Echo ordered Trend troponin EKG as needed for chest pain Admitted to telemetry for monitoring Cardiology consulted History of sarcoidosis and emphysema Started on duo nebs every 4 hours scheduled Continue home albuterol inhaler as needed and Ellipta Patient is not on any steroids -only received in the past for flares Imaging as above Supplemental O2 as needed History of recent right shoulder arthroscopy Continue cefadroxil (prescribed for 14 days patient started on 05/26/19) - continue until June 08 Hold aspirin as on heparin drip now Continue pain regimen Tylenol thousand milligrams every 8 hours as needed, oxycodone 5 mg every 4 hours as needed Bowel regimen: Senokot as needed History of chronic back pain secondary to lumbar herniation and degenerative disc disease Continue home cyclobenzaprine as needed History of depression and anxiety Continue home buspirone, Ativan as needed, sertraline, and trazodone FEN/GI: N.p.o. after midnight for possible cardiac procedure, LR 100 cc/h x 2 L DVT prophylaxis: Heparin drip Code: Full Disposition: PCU telemetry (2) COPD exacerbation: (3) H/O arthroplasty: (4) Anxiety: (5) Depression: (6) Tobacco use disorder: (7) Sarcoidosis: (8) Postinflammatory pulmonary fibrosis: History of Present Illness Chief Complaint: Shortness of breath Primary Care Provider: CLAY Davila 83-year-old female with history of COPD, sarcoidosis, current every day smoker, depression, anxiety, chronic low back pain secondary to lumbar herniation and degenerative disc disease, recent right shoulder surgery on 05/23/2019 presents with shortness of breath on exertion and worsening cough x3 days. Patient reports having chronic productive cough at baseline however she has been hacking more and having thicker mucus production. She also gets very short of breath just going from bed to bathroom. She is also having some right shoulder pain. She denies any chest pain, dizziness, headache, fever, chills, abdominal pain, nausea, vomiting, constipation, diarrhea, hematochezia, melena, hematuria, dysuria. Social history: Patient smoked anywhere from 4 to 2 packs/day from age [age], quit for about 13 years and restarted last year, denies alcohol use, or recreational drug use Surgical history: Left hip replacement, right shoulder surgery-total arthroplasty, hysterectomy, right elbow surgery ED course: Found to be tachypneic, mildly tachycardic to 101 and hypoxic - required 2 L nasal cannula. Allergies Allergy/AdvReac Type Severity Reaction Status Date / Time No Known Allergies Allergy Verified 05/28/19 17:57 Home Medications Home Medications Medication Instructions Recorded Confirmed Type buspirone 10 mg tablet 10 mg PO BID #60 tab 02/12/19 05/28/19 Rx cyclobenzaprine 10 mg tablet 10 mg PO TID PRN #60 tab 02/12/19 05/28/19 Rx lorazepam 1 mg tablet 1 mg PO DAILY PRN #30 tab 02/12/19 05/28/19 Rx trazodone 50 mg tablet 50 mg PO HS #90 tab 02/12/19 05/28/19 Rx albuterol sulfate 2.5 mg/3 mL 2.5 mg INHALATION QID PRN #90 ml 02/18/19 05/28/19 Rx (0.083 %) solution for nebulization sertraline 100 mg tablet 200 mg PO QAM #60 tab 02/18/19 05/28/19 Rx umeclidinium 62.5 mcg-vilanterol 1 puffs INHALATION QAM #60 ea 03/19/19 05/28/19 Rx 25 mcg/actuation powdr for inhalation albuterol sulfate 90 mcg/actuation 2 puff INHALATION QID PRN #18 gm 05/10/19 05/28/19 Rx aerosol inhaler cefadroxil 500 mg PO BID #14 cap 05/24/19 05/28/19 Rx acetaminophen [Tylenol Extra 1,000 mg PO Q8H PRN 05/28/19 05/28/19 History Strength] aspirin [Aspirin Low Dose] 81 mg PO QAM 05/28/19 05/28/19 History meloxicam 7.5 mg PO DAILY PRN 05/28/19 05/28/19 History oxycodone 5 mg PO Q4H PRN MDD 6 TABLETS 05/28/19 05/28/19 History sennosides [Senokot] 17.2 mg PO HS PRN 05/28/19 05/28/19 History Past Med/Surg History Medical History Anxiety COPD (chronic obstructive pulmonary disease) + rare O2 PRN (no use x 1 year) Depression Sarcoidosis stable Surgical History H/O hysterectomy for benign disease (10/02/12) History of hip replacement Left PREETI: 09/11/17: SAB x 1 at L3-L4 at [facility] Hx of colonoscopy Hx of elbow surgery RIGHT Family History Other Diabetes Kidney disease Social History Preferred Language: Japanese Communication Ability: Effective 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 Required: No Beliefs That Will Affect Care: None marital status: Current Living Situation: Spouse Other Information That Helps Us Care for You: No Feels Safe at Home: Yes Safety Concerns: Feels Safe At This Time Smoking Status: Current every day smoker Tobacco Type: cigarettes ; Cigarettes Per Day: 1ppd ; Do You Dip or Chew Tobacco: No ; Second Hand Exposure: No ; Tobacco Cessation Education Requested by Patient: No Hx Alcohol Use: Yes Hx Substance Use: No Review of Systems Review of Systems: As per HPI Physical Exam Physical Exam: General: In NAD, pleasant HEENT: dry oral mucosa Neuro: A&O x 4 Pulm: Mild diffuse expiratory wheezing, diminished but equal breath sounds bilaterally CV: RRR, no m/r/g Abdomen:+BS, no TTP in all quadrants, non-distended LE: no LE edema, no calf TTP MSK: R arm in sling s/p R shoulder arthroplasty Results & Data Vital Signs (Past 12 Hours) Vital Signs Temp Pulse Pulse Resp BP BP Pulse Ox 05/28/19 21:00 90 22 126/93 92 05/28/19 19:00 88 28 H 126/93 98 05/28/19 17:55 84 18 96 05/28/19 17:34 99 05/28/19 16:53 87 L 05/28/19 16:49 36.9 C 101 H 24 146/87 H 87 L Laboratory Results Abnormal lab results 05/28/19 05/28/19 05/28/19 Range/Units 17:40 17:40 17:40 RBC 3.76 L (4.2-5.4) M/uL Hct 35.3 L (37-47) % Lymph # (Auto) 1.02 L (1.2-3.4) K/uL VBG pH 7.47 H (7.36-7.41) Glucose 113 H (70-99) mg/dl Troponin I 0.087 H* (0-0.045) ng/ml Albumin 3.2 L (3.4-5.0) gm/dl Diagnostic Findings CT ANGIOGRAPHY OF THE CHEST, PULMONARY EMBOLUS PROTOCOL CLINICAL HISTORY: Dyspnea, hypoxia, h/o COPD and recent shoulder arthroplasty. COMPARISON STUDY: Chest CT September 12, 2017 and January 25, 2018. Chest radiograph performed earlier today. TECHNIQUE: Following IV administration of 85 mL of Optiray-320, helical axial images of the chest were obtained utilizing the pulmonary embolus protocol. Maximal intensity projections and sagittal and coronal reformats were viewed on an independent 3D workstation. IV contrast was administered without complication. Automated exposure control was utilized for the study. A dose lowering technique was utilized adhering to the principles of ALARA. CT DOSE: 581.42 mGy.cm FINDINGS: Note is made of a small segmental pulmonary embolus within the apical segment of the right upper lobe shown on axial image 167 of 263. The size of the heart is normal. There is no pericardial effusion. Emphysema is noted. Architectural distortion with parenchymal calcifications is noted as well as perihilar/upper lobe opacities which have decreased since CT of January 25, 2018. Scattered groundglass opacities are noted. There is no pulmonary infarct. No pneumothorax is noted. There is a trace left pleural effusion. There are calcified thoracic lymph nodes. No enlarged thoracic lymph nodes are present. A recent right shoulder arthroplasty is partially imaged. IMPRESSION: 1. Small segmental pulmonary embolus within the apical segment of the right upper lobe. 2. Architectural distortion with perihilar/upper lobe conglomerate opacities which have decreased since CT of January 25, 2018. These favor a granulomatous process such as sarcoidosis or pneumoconiosis. 3. Emphysema. SINGLE VIEW CHEST CLINICAL HISTORY: Dyspnea. FINDINGS: An AP, portable, upright chest radiograph is compared to study dated 05/06/2019 and correlated with chest CT dated 09/12/2017. The examination is degraded by portable technique and patient rotation. The heart is mildly enlar ged noting atherosclerotic calcification of the thoracic aorta. The pulmonary vasculature is noncongested. There are calcified mediastinal and hilar lymph nodes. Advanced emphysematous change is again noted. There are masslike upper lobe opacities with numerous calcified and noncalcified pulmonary nodules. No airspace consolidation, large pleural effusion, or pneumothorax is seen. The skeletal structures are osteopenic. There are healed right-sided rib fractures. A right shoulder arthroplasty is new from previous. Skin clips project over the right shoulder. IMPRESSION: 1. No acute cardiopulmonary abnormality. 2. Advanced emphysema and chronic parenchymal changes as above. 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 Medications Administered Current Inpatient Medications Heparin Sodium/Dextrose (Heparin Sodium/Dextrose) 25,000 units in 500 mls @ 0.02 mls/hr IV .Q24H [facility]; Protocol Stop: 06/27/19 19:29 Last Admin: 05/28/19 20:25 Dose: 1,050 units/hr, 21 mls/hr Documented by: Ioversol (Optiray 320 125ml) 85 ml IV ONCE PRN PRN Reason: Interaction Checking Stop: 06/01/19 18:45 Last Admin: 05/28/19 18:46 Dose: 85 ml Documented by: Code Status & VTE Plan Code Status Full code VTE Prophylaxis Plan VTE Prophylaxis will be ordered: Yes Supervising Physician Co-Signing Physician Notes Attending addendum: I have physically seen this patient, have supervised the medical residents activities, and agree with the H&P unless as otherwise noted. Assessment and Plan: Small segmental PE and apical segment right upper lobe- Heparin drip with standard bolus written for an ED, however, will reduce bolus to half dose. Order lower extremity venous Dopplers to assess for DVT. Elevated troponin, however, no suggestion of EKG changes related to V1 and right sided EKG. Elevated troponin- New T wave inversions in leads V2 through V6. The patient will be admitted to telemetry for serial cardiac enzymes, serial EKG's, cardiac rhythm monitoring and a 2-D echocardiogram with Dopplers. Will be on heparin for PE as noted above. Continue aspirin 81 mg daily. Consult cardiology. Emphysema/sarcoidosis- Duonebs every 4 hours while awake and every 2 hours when necessary. Continue Ellipta Remainder of orders and notations as noted. Resident Activity Tracking Resident Involvement: Resident Care Provided Care Provided: Adult Hospital Medicine (1) Pulmonary embolism Acute cor pulmonale presence: unspecified Chronicity: unspecified Pulmonary embolism type: unspecified Qualified Code(s): I26.99 - Other pulmonary embolism without acute cor pulmonale
--- NOTE | 2019-05-28 22:33 | Ultrasound Report ---
BILATERAL LOWER EXTREMITY VENOUS DOPPLER CLINICAL HISTORY: rule out DVT COMPARISON STUDY: No previous studies for comparison. TECHNIQUE: Sonography of the deep venous system of the bilateral lower extremities was performed. Co mpression and augmentation were evaluated. FINDINGS: The bilateral common femoral, superficial femoral and popliteal veins were compressible. A ugmentation was normal. Flow was shown within the deep calf vessels. IMPRESSION: No evidence of deep venous thrombus within the bilateral lower extremities. Electronically signed by: Carlos Cunha M.D. 05/28/2019 10:32 PM
--- NOTE | 2019-05-28 22:43 | Emergency Department Note ---
Entered by Larua Guerrero acting as a scribe for Luis Galvin MD History of Present Illness General Chief complaint: Shortness of Breath/Dyspnea Stated complaint: SOB Time Seen by Provider: 05/28/19 17:01 Source: patient History of Present Illness Onset (ago): day(s) 2 Location: chest Radiation: non-radiation Pain Consistency: + constant Maximum Pain Intensity: 5 Quality: + other (tightness) Exacerbated By: + movement and + other (coughing) Associated symptoms: + denies other symptoms (leg swelling, surgical incision drainage), + cough (productive ), + shortness of breath and + other (wheezing) The patient is a 63 year old white elderly female with a PMHx pertinent for recent shoulder surgery on 05/23/19, COPD, inhaler use, daily baby ASP, postinflammatory pulmonary fibrosis, chronic respiratory failure, anxiety, and other relevant medical problems indicated on Listiki who presents to the Emergency Room with complaints of shortness of breath and dyspnea. The patient began experiencing SOB and OLGUIN 2 days ago associated with chest tightness, wheezing, and cough with thick sputum which she states is different than her COPD symptoms. She states that her chest tightness is exacerbated with coughing. Of note, she follows up with a medical secretary teacher regularly. She denies leg swelling and surgical incision drainage/leaking from shoulder. The patient offers no additional concerns at this time. Home Medications Home Medications Medication Instructions Recorded Confirmed Type buspirone 10 mg tablet 10 mg PO BID #60 tab 02/12/19 05/28/19 Rx cyclobenzaprine 10 mg tablet 10 mg PO TID PRN #60 tab 02/12/19 05/28/19 Rx lorazepam 1 mg tablet 1 mg PO DAILY PRN #30 tab 02/12/19 05/28/19 Rx trazodone 50 mg tablet 50 mg PO HS #90 tab 02/12/19 05/28/19 Rx albuterol sulfate 2.5 mg/3 mL 2.5 mg INHALATION QID PRN #90 ml 02/18/19 05/28/19 Rx (0.083 %) solution for nebulization sertraline 100 mg tablet 200 mg PO QAM #60 tab 02/18/19 05/28/19 Rx umeclidinium 62.5 mcg-vilanterol 1 puffs INHALATION QAM #60 ea 03/19/19 05/28/19 Rx 25 mcg/actuation powdr for inhalation albuterol sulfate 90 mcg/actuation 2 puff INHALATION QID PRN #18 gm 05/10/19 05/28/19 Rx aerosol inhaler cefadroxil 500 mg PO BID #14 cap 05/24/19 05/28/19 Rx acetaminophen [Tylenol Extra 1,000 mg PO Q8H PRN 05/28/19 05/28/19 History Strength] aspirin [Aspirin Low Dose] 81 mg PO QAM 05/28/19 05/28/19 History meloxicam 7.5 mg PO DAILY PRN 05/28/19 05/28/19 History oxycodone 5 mg PO Q4H PRN MDD 6 TABLETS 05/28/19 05/28/19 History sennosides [Senokot] 17.2 mg PO HS PRN 05/28/19 05/28/19 History Allergies Allergy/AdvReac Type Severity Reaction Status Date / Time No Known Allergies Allergy Verified 05/28/19 17:57 Past Med/Surg History Medical History Anxiety COPD (chronic obstructive pulmonary disease) + rare O2 PRN (no use x 1 year) Depression Sarcoidosis stable Surgical History H/O hysterectomy for benign disease (10/02/12) History of hip replacement Left PREETI: 09/11/17: SAB x 1 at L3-L4 at [facility] Hx of colonoscopy Hx of elbow surgery RIGHT Family History Other Diabetes Kidney disease Social History Preferred Language: Telugu Communication Ability: Effective Bag Maker Required: No Beliefs That Will Affect Care: None marital status: Current Living Situation: Alone Feels Safe at Home: Yes Smoking Status: Current every day smoker Tobacco Type: cigarettes ; Cigarettes Per Day: 1 PPD; intermittent x 10+ years ; Second Hand Exposure: No ; Hx Alcohol Use: No Hx Substance Use: No Review of Systems See HPI for pertinent positives & negatives. and A total of 10 systems reviewed and were otherwise negative Physical Exam Vital Signs Vital Signs - 24 hr 05/28/19 16:49 05/28/19 16:53 05/28/19 17:34 Temperature 36.9 C Temperature Source Oral Pulse Rate 101 H Pulse Rate [Left Finger] Pulse Rhythm [Left Finger] Pulse Strength [Left Finger] Respiratory Rate 24 Respiratory Effort / Characteristics Non-Labored Spontaneous Non-Labored Spontaneous Respiratory Depth Normal Normal Respiratory Pattern Regular Regular Blood Pressure 146/87 H Blood Pressure [Left Arm] Blood Pressure Mean 106 Blood Pressure Mean [Left Arm] Blood Pressure Position Sitting Blood Pressure Position [Left Arm] Pulse Oximetry 87 L 87 L 99 Oxygen Delivery Method Room Air Nasal Cannula Nasal Cannula Oxygen Flow Rate 2 Sepsis Recent Fever Within 48 Hours No Sepsis New/Unexplained Change in Mental Status No Sepsis Action Taken by Nursing No Action Required Oxygen Flow Rate - Titration 2 Pulse Oximetry Post Tiitration 92 05/28/19 17:55 05/28/19 19:00 05/28/19 21:00 Temperature Temperature Source Pulse Rate Pulse Rate [Left Finger] 84 88 90 Pulse Rhythm [Left Finger] Regular Pulse Strength [Left Finger] Normal Respiratory Rate 18 28 H 22 Respiratory Effort / Characteristics Non-Labored Spontaneous Non-Labored Spontaneous Respiratory Depth Normal Respiratory Pattern Regular Blood Pressure Blood Pressure [Left Arm] 126/93 126/93 Blood Pressure Mean Blood Pressure Mean [Left Arm] 104 104 Blood Pressure Position Blood Pressure Position [Left Arm] Sitting Pulse Oximetry 96 98 92 Oxygen Delivery Method Nasal Cannula Nasal Cannula Nasal Cannula Oxygen Flow Rate 2 2 3 Sepsis Recent Fever Within 48 Hours Sepsis New/Unexplained Change in Mental Status Sepsis Action Taken by Nursing Oxygen Flow Rate - Titration Pulse Oximetry Post Tiitration GENERAL: Nasal canula in place, wearing glasses, well nourished, non-toxic. EYE EXAM: Normal conjunctiva. PERRL, no anisocoria and EOM's grossly intact w/o pain. OROPHARYNX: Moist mucus membranes. Grossly normal dentition. NECK: Supple, no nuchal rigidity, no adenopathy, non-tender. no signs of meningismus. LUNGS: Decreased breath sounds in right base with wheezing throughout. Normal chest wall mechanics. HEART: NSR, no MRG. ABDOMEN: Abdomen soft, non-tender, normo-active bowel sounds, no masses, no rebound or guarding. BACK: No CVA TTP. SKIN: No rashes and no bruising. UPPER EXTREMITIES: Upper extremities are grossly normal. RUE in sling. Bandage over right shoulder, clean, dry, and intact. NVI distally. LOWER EXTREMITIES: No pitting edema. No calf pain. NEURO EXAM: A&O x3, cranial nerves II-XII grossly intact, normal speech, moves all 4 extremities on command w/o issue with exception of right upper extremity secondary to recent procedure. Course Course 170: Past medical records reviewed. The patient was evaluated in room B12A. A complete history and physical exam was performed. The patient was placed on a cloth colors examiner. 1943: I spoke to Dr. Cary, [facility] Hospitalist who accepts the patient for admission. Dr. Cary wants a right sided EKG done on the patient. at this time. 2034: The patient verbally expressed understanding and agreement of the tr eatment plan. The patient will be evaluated by the hospitalist for further treatment. Administered Medications Heparin Sodium/Dextrose (Heparin Sodium/Dextrose) 25,000 units in 500 mls @ 21 mls/hr IV .[id number] [facility]; Protocol Stop: 06/27/19 19:29 Last Admin: 05/28/19 20:25 Dose: 1,050 units/hr, 21 mls/hr Documented by: [id number] Cosigned by: [id number] Ioversol (Optiray 320 125ml) 85 ml IV ONCE PRN PRN Reason: Interaction Checking Stop: 06/01/19 18:45 Last Admin: 05/28/19 18:46 Dose: 85 ml Documented by: [id number] Discontinued Medications Albuterol (Duoneb) 12 ml INH ONE STA Stop: 05/28/19 17:11 Last Admin: 05/28/19 17:49 Dose: 12 ml Documented by: [id number] Heparin Sodium (Porcine) (Heparin Sodium (Porcine)) Confirm Administered Dose 5,000 units .ROUTE .STK-MED ONE Stop: 05/28/19 20:18 Last Admin: 05/28/19 20:25 Dose: 2,500 units Documented by: [id number] Cosigned by: [id number] Heparin Sodium/Dextrose () 1 ea IV NOW STA; Protocol Stop: 05/28/19 19:27 Last Admin: 05/28/19 20:34 Dose: Not Given Documented by: [id number] Sodium Chloride (Nss 1000ml) 1,000 mls @ 999 mls/hr IV .Q1H1M HEATHER Stop: 05/28/19 18:15 Last Infusion: 05/28/19 19:30 Dose: 0 mls/hr Documented by: [id number] Admin: 05/28/19 18:25 Dose: 999 mls/hr Documented by: [id number] Methylprednisolone (Solumedrol) 125 mg IV NOW STA Stop: 05/28/19 17:11 Last Admin: 05/28/19 18:26 Dose: 125 mg Documented by: [id number] Morphine Sulfate (Morphine Sulfate) 4 mg IV NOW STA Stop: 05/28/19 18:36 Last Admin: 05/28/19 19:06 Dose: 4 mg Documented by: [id number] Critical Care Time Critical Care Time: Yes Total Critical Care Time: 57 I have personally spent 57 minutes of critical care time in the direct management of this patient. This includes bedside care, interpretation of diagnostic studies, and testing, discussion with consultants, patient, and family members, and other required patient management activities. This 57 minutes is in excess of all separately billable procedures. Medical Decision Making Differential Diagnosis Differential diagnosis includes but is not limited to etiologies such as infections, reactive airway disease, pneumonia, pneumothorax, COPD, CHF, cardiac ischemia, pulmonary embolism, musculoskeletal, gastrointestinal, as well as others were entertained. Medical Records Attestation: I reviewed the patient's medical records. Home Medications Current Medication List: was personally reviewed by me Laboratory Data Attestation: I reviewed the patient's lab results. Result diagrams: 05/28/19 17:40 05/28/19 17:40 Lab Results 05/28/19 05/28/19 05/28/19 Range/Units 17:40 17:40 17:40 WBC 6.31 (4.8-10.8) K/uL RBC 3.76 L (4.2-5.4) M/uL Hgb 12.0 (12.0-16.0) g/dL Hct 35.3 L (37-47) % MCV 93.9 (80-100) fL MCH 31.9 (25-34) pg MCHC 34.0 (32-36) g/dL RDW Std Deviation 46.2 (36.4-46.3) fL RDW Coeff of Perry 13.4 (11.5-14.5) % Plt Count 183 (130-400) K/uL MPV 9.5 (7.4-10.4) fL Immature Gran % (Auto) 0.2 % Neut % (Auto) 69.0 % Lymph % (Auto) 16.2 % [place] % (Auto) 9.2 % Eos % (Auto) 4.6 % Baso % (Auto) 0.8 % Immature Gran # (Auto) 0.01 (0.00-0.02) K/uL Neut # (Auto) 4.36 (1.4-6.5) K/uL Lymph # (Auto) 1.02 L (1.2-3.4) K/uL [place] # (Auto) 0.58 (0.11-0.59) K/uL Eos # (Auto) 0.29 (0-0.5) K/uL Baso # (Auto) 0.05 (0-0.2) K/uL PT 10.2 (9.0-12.0) Seconds INR 1.0 (0.9-1.1) APTT 28.6 (21.0-31.0) Seconds PTT Ratio 1.1 VBG pH (7.36-7.41) VBG pCO2 (38-50) mmHg VBG pO2 mmHg VBG HCO3 mmol/L VBG O2 Saturation % VBG Base Excess mEq/L Barometric Pressure mm/Hg Sodium 137 (136-145) mmol/L Potassium 3.8 (3.5-5.1) mmol/L Chloride 105 (98-107) mmol/L Carbon Dioxide 27 (21-32) mmol/L Anion Gap 5.0 (3-11) BUN 10 (7-18) mg/dl Creatinine 0.81 (0.6-1.2) mg/dl Est Cr Clr Drug Dosing 64.9 ml/min Est GFR ( Amer) 89.0 Est GFR (Non-Af Amer) 76.8 BUN/Creatinine Ratio 12.6 (10-20) Glucose 113 H (70-99) mg/dl Lactate (0.4-2.0) mmol/L Calcium 9.2 (8.5-10.1) mg/dl Magnesium 2.0 (1.8-2.4) mg/dl Total Bilirubin 0.6 (0.2-1) mg/dl AST 15 (15-37) U/L ALT 13 (12-78) U/L Alkaline Phosphatase 92 (45-117) U/L Troponin I 0.087 H* (0-0.045) ng/ml Total Protein 6.9 (6.4-8.2) gm/dl Albumin 3.2 L (3.4-5.0) gm/dl Globulin 3.7 (2.5-4.0) gm/dl Albumin/Globulin Ratio 0.9 (0.9-2) 05/28/19 05/28/19 Range/Units 17:40 17:40 WBC (4.8-10.8) K/uL RBC (4.2-5.4) M/uL Hgb (12.0-16.0) g/dL Hct (37-47) % MCV (80-100) fL MCH (25-34) pg MCHC (32-36) g/dL RDW Std Deviation (36.4-46.3) fL RDW Coeff of Perry (11.5-14.5) % Plt Count (130-400) K/uL MPV (7.4-10.4) fL Immature Gran % (Auto) % Neut % (Auto) % Lymph % (Auto) % [place] % (Auto) % Eos % (Auto) % Baso % (Auto) % Immature Gran # (Auto) (0.00-0.02) K/uL Neut # (Auto) (1.4-6.5) K/uL Lymph # (Auto) (1.2-3.4) K/uL [place] # (Auto) (0.11-0.59) K/uL Eos # (Auto) (0-0.5) K/uL Baso # (Auto) (0-0.2) K/uL PT (9.0-12.0) Seconds INR (0.9-1.1) APTT (21.0-31.0) Seconds PTT Ratio VBG pH 7.47 H (7.36-7.41) VBG pCO2 38 (38-50) mmHg VBG pO2 48 mmHg VBG HCO3 27 mmol/L VBG O2 Saturation 84.8 % VBG Base Excess 3.5 mEq/L Barometric Pressure 731.6 mm/Hg Sodium (136-145) mmol/L Potassium (3.5-5.1) mmol/L Chloride (98-107) mmol/L Carbon Dioxide (21-32) mmol/L Anion Gap (3-11) BUN (7-18) mg/dl Creatinine (0.6-1.2) mg/dl Est Cr Clr Drug Dosing ml/min Est GFR ( Amer) Est GFR (Non-Af Amer) BUN/Creatinine Ratio (10-20) Glucose (70-99) mg/dl Lactate 1.0 (0.4-2.0) mmol/L Calcium (8.5-10.1) mg/dl Magnesium (1.8-2.4) mg/dl Total Bilirubin (0.2-1) mg/dl AST (15-37) U/L ALT (12-78) U/L Alkaline Phosphatase (45-117) U/L Troponin I (0-0.045) ng/ml Total Protein (6.4-8.2) gm/dl Albumin (3.4-5.0) gm/dl Globulin (2.5-4.0) gm/dl Albumin/Globulin Ratio (0.9-2) Imaging Data Radiologist's Impression: Radiology results as stated below per my review and the radiologist's interpretation: CT ANGIOGRAPHY OF THE CHEST, PULMONARY EMBOLUS PROTOCOL CLINICAL HISTORY: Dyspnea, hypoxia, h/o COPD and recent shoulder arthroplasty. COMPARISON STUDY: Chest CT September 12, 2017 and January 25, 2018. Chest radiograph performed earlier today. TECHNIQUE: Following IV administration of 85 mL of Optiray-320, helical axial images of the chest were obtained utilizing the pulmonary embolus protocol. Maximal intensity projections and sagittal and coronal reformats were viewed on an independent 3D workstation. IV contrast was administered without complic ation. Automated exposure control was utilized for the study. A dose lowering technique was utilized adhering to the principles of ALARA. CT DOSE: 581.42 mGy.cm FINDINGS: Note is made of a small segmental pulmonary embolus within the apical segment of the right upper lobe shown on axial image 167 of 263. The size of the heart is normal. There is no pericardial effusion. Emphysema is noted. Architectural distortion with parenchymal calcifications is noted as well as perihilar/upper lobe opacities which have decreased since CT of January 25, 2018. Scattered groundglass opacities are noted. There is no pulmonary infarct. No pneumothorax is noted. There is a trace left pleural effusion. There are calcified thoracic lymph nodes. No enlarged thoracic lymph nodes are present. A recent right shoulder arthroplasty is partially imaged. IMPRESSION: 1. Small segmental pulmonary embolus within the apical segment of the right upper lobe. 2. Architectural distortion with perihilar/upper lobe conglomerate opacities which have decreased since CT of January 25, 2018. 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 3. Emphysema. Electronically signed by: Carlos Cunha M.D. 05/28/2019 7:05 PM SINGLE VIEW CHEST CLINICAL HISTORY: Dyspnea. FINDINGS: An AP, portable, upright chest radiograph is compared to study dated 05/06/2019 and correlated with chest CT dated 09/12/2017. The examination is degraded by portable technique and patient rotation. The heart is mildly enlarged noting atherosclerotic calcification of the thoracic aorta. The pulmonary vasculature is noncongested. There are calcified mediastinal and hilar lymph nodes. Advanced emphysematous change is again noted. There are masslike upper lobe opacities with numerous calcified and noncalcified pulmonary nodules. No airspace consolidation, large pleural effusion, or pneumothorax is seen. The skeletal structures are osteopenic. There are healed right-sided rib fractures. A right shoulder arthroplasty is new from previous. Skin clips project over the right shoulder. IMPRESSION: 1. No acute cardiopulmonary abnormality. 2. Advanced emphysema and chronic parenchymal changes as above. 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 Electronically signed by: Logan Munson M.D. 05/28/2019 5:37 PM ECG Data Attestation: I personally reviewed and interpreted this ECG as follows: Indication: + SOB/dyspnea Rate (beats per minute): 86 Rhythm: + normal sinus ECG Intervals/blocks: + Prolonged QT ECG Wayne: + Normal ECG ST segments: + T-wave inversions (anteriorally and laterally ) ECG Findings: + Other (no ST segment changes ) Comparison ECG Date: from (10/14/18) Change: the following changes noted (TWI new) Additional Comments: RIGHT SIDED EKG done at 2009: Sinus rhythm 91 bpm Prolonged QT Normal axis TWI in leads V1 through V3 Some motion artifact but no obvious ST changes Blood Pressure Blood Pressure Findings: Elevated blood pressure Blood Pressure Disposition: further management by hospitalist PEDRO Narrative The patient is a 63 year old white elderly female with a PMHx pertinent for recent shoulder surgery on 05/23/19, COPD, inhaler use, daily baby ASP, postinflammatory pulmonary fibrosis, chronic respiratory failure, anxiety, and other relevant medical problems indicated on Listiki who presents to the Emergency Room with complaints of shortness of breath and dyspnea. Patient was seen and evaluated the bedside. The patient was complaining of some increasing shortness of breath. Known history of COPD and does use oxygen as n eeded. Patient did have a recent right total shoulder completed. The patient did have a chest x-ray. This does show some chronic change. Blood work was obtained. Patient did have a positive troponin. Patient does have some EKG changes with T wave inversions anteriorly and laterally. Patient denies any chest pain whatsoever. CT angios does show a small segmental PE in the right apex. There is no comments of any right-sided heart strain based on this. Given the location I doubt this would cause extreme right-sided cardiac changes. I discussed with the patient that she needs to make sure that she makes anybody aware if she does develop chest pains. Did perform a bedside [id number] ultrasound. Patient's EF appears to be adequate with may be a low normal EF. No obvious pericardial effusion. Patient was started on heparin. Right-sided EKG does not show any ST changes other than the T wave inversions that were previously apparent on her left-sided EKG. I did speak with the on-call hospitalist who agreed to further evaluate treat the patient. Patient was subsequently admitted to the medicine service. I counseled patient on smoking cessation for 5 minutes. Treatment options discussed and resources provided. Patient was not receptive. Impression & Plan Pulmonary embolism, COPD exacerbation, SOB (shortness of breath), Encounter for smoking cessation counseling Discharge Plan Visit Data *Final* Discharge Date/Time: 05/28/19 21:52 Chief Complaint: Shortness of Breath/Dyspnea Stated Complaint: SOB ED Provider: Luis Galvin Discharge Problem: Pulmonary embolism, COPD exacerbation, SOB (shortness of breath), Encounter for smoking cessation counseling Patient Disposition: Admitted As Inpatient Discharge Instructions Interventions: ED Discharge Assessment Last Done: 05/28/19 21:52 Discharge Problem: Pulmonary embolism Qualifiers: Pulmonary embolism type: unspecified Chronicity: unspecified Acute cor pulmonale presence: unspecified Qualified Code(s): I26.99 - Other pulmonary embolism without acute cor pulmonale The scribe's documentation has been prepared under my direction and personally reviewed by me in its entirety. I confirm that the note above accurately reflects all work, treatment, procedures, and medical decision making performed by me.
[2019-05-28] MEDS ORDERED: ALBUTEROL HFA 8 GM INHALER INH PRN (23:03)
[2019-05-28] MEDS ORDERED: SENNA 8.6 MG TAB PO PRN (23:03)
[2019-05-28] MEDS ORDERED: POLYETHYLENE (MIRALAX) 17 GM PACK PO PRN (23:03)
[2019-05-28] MEDS ORDERED: ACETAMINOPHEN 500 MG TAB PO PRN (23:03)
[2019-05-28] MEDS ORDERED: CYCLOBENZAPRINE HCL 10 MG TAB PO PRN (23:21)
[2019-05-28] MEDS ORDERED: LORazepam 1 MG TAB PO PRN (23:22)
[2019-05-28] MEDS: ALBUT/IPRATROP 3MG/0.5MG NEB 3 ML VIAL NEB SCH (23:36)
[2019-05-28] MEDS: OXYCODONE HCL IR 5 MG TAB (IMMEDIATE RELEASE) PO PRN (23:46)
[2019-05-28] MEDS: ANORO ELLIPTA~ORDER AWAITING ACTION SCH (23:48)
[2019-05-29] MEDS: LACTATED RINGER'S 1,000 ML IV SCH ×2 (00:16→11:18)
[2019-05-29] MEDS: TRAZODONE HCL 50 MG TAB PO SCH ×2 (00:17→21:08)
[2019-05-29 02:56] LABS: Partial Thromboplastin Ratio 1.7
[2019-05-29 02:57] LABS: Partial Thromboplastin Time 46.1 Seconds (21.0-31.0)
[2019-05-29] MEDS: ALBUT/IPRATROP 3MG/0.5MG NEB 3 ML VIAL NEB SCH ×5 (03:12→23:28)
[2019-05-29 07:04] LABS: Hematocrit (blood only) 33.2 % (37-47); Hemoglobin 11.4 g/dL (12.0-16.0); Immature Granulocytes # (auto) 0.01 K/uL (0.00-0.02); Immature Granulocytes % (auto) 0.3 %; Lymphocytes # (auto) 0.53 K/uL (1.2-3.4); Mean Corpuscular Hemoglobin 31.6 pg (25-34); Mean Corpuscular Hgb Conc 34.3 g/dL (32-36); Mean Platelet Volume 9.7 fL (7.4-10.4); Monocytes # (auto) 0.15 K/uL (0.11-0.59); Monocytes % (auto) 4.8 %; Neutrophils # (auto) 2.43 K/uL (1.4-6.5); Neutrophils % (auto) 77.9 %; Platelet Count 189 K/uL (130-400); RDW Coefficient of Variation 13.6 % (11.5-14.5); RDW Standard Deviation 45.7 fL (36.4-46.3); Red Blood Count 3.61 M/uL (4.2-5.4); White Blood Count 3.12 K/uL (4.8-10.8)
[2019-05-29 07:38] LABS: BUN Creatinine Ratio 14.4 (10-20); Calcium 9.3 mg/dl (8.5-10.1); Creatinine Clr Calc Pharmacy 72.7 ml/min; Est GFR (African American) 102.6; Est GFR (Non-African American) 88.5; Potassium 4.2 mmol/L (3.5-5.1)
[2019-05-29 07:44] LABS: Troponin I 0.025 ng/ml (0-0.045)
[2019-05-29 07:57] LABS: Estimated Average Glucose 111 mg/dl; Hemoglobin A1C 5.5 % (4.5-5.6)
[2019-05-29] MEDS: OXYCODONE HCL IR 5 MG TAB (IMMEDIATE RELEASE) PO PRN ×3 (08:03→19:58)
[2019-05-29] MEDS: SERTRALINE HCL 100 MG TABLET PO SCH (08:04)
[2019-05-29] MEDS: ANORO ELLIPTA~ORDER AWAITING ACTION SCH ×3 (08:05→23:31)
[2019-05-29] MEDS ORDERED: ALBUT/IPRATROP 3MG/0.5MG NEB 3 ML VIAL NEB PRN (08:17)
[2019-05-29] MEDS ORDERED: ALBUT/IPRATROP 3MG/0.5MG NEB 3 ML VIAL NEB STA (12:37)
[2019-05-29] MEDS ORDERED: predniSONE 20 MG TAB PO ONE (13:15)
[2019-05-29] MEDS: UMECLIDINIUM BRM/VILANTEROL INH SCH (14:15)
--- NOTE | 2019-05-29 16:42 | Orthopedic Consultation ---
Date of Consultation May 29, 2019 Assessment & Plan (1) H/O arthroplasty: Continue abduction sling. EZ WRAP ice pack to right shoulder as needed. Change dressing daily. Restart PT and OT protocols for right total shoulder arthroplasty. If patient continues to remain stable, plan for discharge to home tomorrow and resume previous total shoulder arthroplasty instructions and medications. History of Present Illness Reason for Consultation: Status post right total shoulder arthroplasty 05/23/2019 Attending Physician: Vaibhav Aaron MD History of Present Illness Patient is a 63-year-old white female known to our practice who is status post right total shoulder arthroplasty by Dr. Correia on 05/23/2019 Sens. Patient had a uneventful postoperative outcome during her stay. She was discharged home and was started on physical therapy protocol. Patient states that yesterday, her physical therapist noticed that she was short of breath much more so than he had seen her. This concerned him and they called Dr. Correia's office who had them send her to the ER. She was seen by the staff and was found to have a small pulmonary embolus and elevated troponins and was admitted. Currently she is sitting up in bed awake and alert and has no complaints. Shoulder pain is controlled. She states that she is currently being sent up to the [facility] floor. Allergies Allergy/AdvReac Type Severity Reaction Status Date / Time No Known Allergies Allergy Verified 05/28/19 17:57 Home Medications Home Medications Medication Instructions Recorded Confirmed Type buspirone 10 mg tablet 10 mg PO BID #60 tab 02/12/19 05/28/19 Rx cyclobenzaprine 10 mg tablet 10 mg PO TID PRN #60 tab 02/12/19 05/28/19 Rx lorazepam 1 mg tablet 1 mg PO DAILY PRN #30 tab 02/12/19 05/28/19 Rx trazodone 50 mg tablet 50 mg PO HS #90 tab 02/12/19 05/28/19 Rx albuterol sulfate 2.5 mg/3 mL 2.5 mg INHALATION QID PRN #90 ml 02/18/19 05/28/19 Rx (0.083 %) solution for nebulization sertraline 100 mg tablet 200 mg PO QAM #60 tab 02/18/19 05/28/19 Rx umeclidinium 62.5 mcg-vilanterol 1 puffs INHALATION QAM #60 ea 03/19/19 05/28/19 Rx 25 mcg/actuation powdr for inhalation albuterol sulfate 90 mcg/actuation 2 puff INHALATION QID PRN #18 gm 05/10/19 05/28/19 Rx aerosol inhaler cefadroxil 500 mg PO BID #14 cap 05/24/19 05/28/19 Rx acetaminophen [Tylenol Extra 1,000 mg PO Q8H PRN 05/28/19 05/28/19 History Strength] aspirin [Aspirin Low Dose] 81 mg PO QAM 05/28/19 05/28/19 History meloxicam 7.5 mg PO DAILY PRN 05/28/19 05/28/19 History oxycodone 5 mg PO Q4H PRN MDD 6 TABLETS 05/28/19 05/28/19 History sennosides [Senokot] 17.2 mg PO HS PRN 05/28/19 05/28/19 History Patient History Medical History Anxiety COPD (chronic obstructive pulmonary disease) + rare O2 PRN (no use x 1 year) Depression Sarcoidosis stable Surgical History H/O hysterectomy for benign disease (10/02/12) History of hip replacement Left PREETI: 09/11/17: SAB x 1 at L3-L4 at [facility] Hx of colonoscopy Hx of elbow surgery RIGHT Family History Other Diabetes Kidney disease Social History Preferred Language: Danish Communication Ability: Effective Bridge Maintainer Required: No Beliefs That Will Affect Care: None marital status: Current Living Situation: Spouse Other Information That Helps Us Care for You: No Feels Safe at Home: Yes Safety Concerns: Feels Safe At This Time Smoking Status: Current every day smoker Tobacco Type: cigarettes ; Cigarettes Per Day: 1ppd ; Do You Dip or Chew Tobacco: No ; Second Hand Exposure: No ; Tobacco Cessation Education Requested by Patient: No Hx Alcohol Use: Yes Hx Substance Use: No Physical Exam Physical Exam: Patient currently is wearing her abduction sling. Dressing is removed from the right shoulder and her incision appears benign. No overt erythema or drainage noted. Neurovascular is intact. And she has good range of motion of her right wrist and fingers. Capillary refill is less than 2 seconds. Results & Data Vital Signs (Past 12 Hours) Vital Signs Temp Pulse Pulse Resp BP Pulse Ox 05/29/19 15:40 81 18 92 05/29/19 14:59 36.7 C 93 H 16 123/77 92 05/29/19 11:16 36.5 C 84 18 121/69 96 05/29/19 07:44 36.8 C 86 18 118/69 95 05/29/19 07:[address] ANGIOGRAPHY OF THE CHEST, PULMONARY EMBOLUS PROTOCOL CLINICAL HISTORY: Dyspnea, hypoxia, h/o COPD and recent shoulder arthroplasty. COMPARISON STUDY: Chest CT September 12, 2017 and January 25, 2018. Chest radiograph performed earlier today. TECHNIQUE: Following IV administration of 85 mL of Optiray-320, helical axial images of the chest were obtained utilizing the pulmonary embolus protocol. Maximal intensity projections and sagittal and coronal reformats were viewed on an independent 3D workstation. IV contrast was administered without complication. Automated exposure control was utilized for the study. A dose lowering technique was utilized adhering to the principles of ALARA. CT DOSE: 581.42 mGy.cm FINDINGS: Note is made of a small segmental pulmonary embolus within the apical segment of the right upper lobe shown on axial image 167 of 263. The size of the heart is normal. There is no pericardial effusion. Emphysema is noted. Architectural distortion with parenchymal calcifications is noted as well as perihilar/upper lobe opacities which have decreased since CT of January 25, 2018. Scattered groundglass opacities are noted. There is no pulmonary infarct. No pneumothorax is noted. There is a trace left pleural effusion. There are calcified thoracic lymph nodes. No enlarged thoracic lymph nodes are present. A recent right shoulder arthroplasty is partially imaged. IMPRESSION: 1. Small segmental pulmonary embolus within the apical segment of the right upper lobe. 2. Architectural distortion with perihilar/upper lobe conglomerate opacities which have decreased since CT of January 25, 2018. These favor a granulomatous process such as sarcoidosis or pneumoconiosis. 3. Emphysema.
[2019-05-29] MEDS: cephALEXin 500 MG CAP PO SCH (21:08)
[2019-05-29] MEDS: APIXABAN 5 MG TABLET PO SCH (21:08)
[2019-05-29] MEDS: HEPARIN SODIUM/DEXTROSE 25,000 UNITS/500 ML BAG IV SCH (21:25)
--- NOTE | 2019-05-29 21:57 | Billing Data ---
Coding Level of Care Code 49224 Initial Inpt Care Lvl 3
[2019-05-30] MEDS ORDERED: APIXABAN 5 MG TABLET PO SCH
[2019-05-30] MEDS: ALBUT/IPRATROP 3MG/0.5MG NEB 3 ML VIAL NEB SCH ×3 (03:34→11:16)
[2019-05-30] MEDS: OXYCODONE HCL IR 5 MG TAB (IMMEDIATE RELEASE) PO PRN ×2 (05:43→10:19)
--- NOTE | 2019-05-30 06:20 | Hospitalist Progress Note ---
Date of Service May 29, 2019 Assessment & Plan (1) Pulmonary embolism: Placed on heparin drip on admission. Will switch to Eliquis PE dosing tonight. Benefits and side effects discussed with patient. Given size and provoked would recommend 3 month course. (2) COPD exacerbation: Solu-medrol 125mg given in ER. Will continue with 60mg today and tomorrow. Patient reports usually getting/needing 14 day tapering course. Duonebs Q4H + PRN. (3) H/O arthroplasty: Appreciate orthopedic review. Will switch post surgical antibiotic prophylaxis to Keflex to complete full 7 day course as her could not find her cefadroxil prescription at home and not on formulary here. (4) Anxiety: (5) Depression: Continue home meds, sertraline and trazodone. (6) Tobacco use disorder: Declined nicotine patch/replacement. Encouraged to stop smoking. (7) Sarcoidosis: Steroid tapering course as above. Patient reports no skin or other manifestations other than her lungs. Diagnosis since 2004. Follows with Dr Cote. (8) Discharge planning issues: Patient at baseline 2L O2 when reviewed in PM. Baseline physical ability (with exception of disability from recent shoulder arthroplasty) therefore no PT ordered. Likely can be discharged tomorrow if respiratory status improves. Subjective Patient seen in morning with significant labored breathing and wheezing. She improved with duonebs and steroids given when added and reexamined in the afternoon. Reports a long history of COPD and sarcoidosis although she does not know much about her sarcoidosis. Long time smoker although managed to give up for 15 years she recently went back to smoking 0.5 packs approximately a year ago due to stressful events in her life. Follows with Dr Cote (pulmonology). is brining in Anoro Ellipta later today but had not had it yet when seen. No previous PEs. Recent right shoulder arthroscopy. Review of Systems Review of Systems: All systems reviewed & are unremarkable except as noted in HPI & below Physical Exam Constitutional: well developed, + acute distress (respiratory) and + malnourished Eyes: + anicteric sclerae; pupils not irregular ENMT: external ear and nose normal, oropharynx normal Neck: trachea midline Respiratory: + respiratory distress (mild), + labored breathing, + retractions and + uses accessory muscles Auscultation: + wheezes (b/l expiratory throughout, improved but still present in PM, good air entry); no crackles, no rales and no rhonchi Cardiovascular: Rate/Rhythm: regular rhythm and + tachycardic Heart Sounds: no murmur Vessels: no JVD Extremities: normal capillary refill; no calf tenderness and no pedal edema Gastrointestinal (Abdomen): normal bowel sounds, soft, nontender, no hepatosplenomegaly Musculoskeletal: no cyanosis or clubbing, extremities motor strength 5/5 (right arm in sling not examined) Skin: no rashes, warm and dry Neurologic: moves all extremities (exception R arm in sling not fully examined but moving fingers normally) and awake Motor/Sensory: no sensory deficit Psychiatric: A+Ox3, euthymic affect Results & Data Vital Signs (Past 12 Hours) Vital Signs Temp Pulse Pulse Resp BP Pulse Ox 05/29/19 23:28 86 16 96 05/29/19 23:01 99.0 F 86 14 106/68 93 05/29/19 20:16 75 16 96 PG Care Time/CCT Total # of Minutes Spent Total Time Spent with Patient: Total time spent is greater than 50% in coordination of care (as documented) at patient's floor/unit and/or counseling patient: (1) Pulmonary embolism Acute cor pulmonale presence: unspecified Chronicity: unspecified Pulmonary embolism type: unspecified Qualified Code(s): I26.99 - Other pulmonary embolism without acute cor pulmonale
[2019-05-30 06:29] LABS: Basophils # (auto) 0.02 K/uL (0-0.2); Basophils % (auto) 0.4 %; Eosinophils # (auto) 0.02 K/uL (0-0.5); Eosinophils % (auto) 0.4 %; Hematocrit (blood only) 33.3 % (37-47); Hemoglobin 11.1 g/dL (12.0-16.0); Immature Granulocytes # (auto) 0.01 K/uL (0.00-0.02); Immature Granulocytes % (auto) 0.2 %; Lymphocytes % (auto) 20.1 %; Mean Corpuscular Hemoglobin 31.2 pg (25-34); Mean Corpuscular Hgb Conc 33.3 g/dL (32-36); Mean Corpuscular Volume 93.5 fL (80-100); Mean Platelet Volume 9.4 fL (7.4-10.4); Monocytes # (auto) 0.48 K/uL (0.11-0.59); Monocytes % (auto) 8.8 %; Neutrophils # (auto) 3.85 K/uL (1.4-6.5); Neutrophils % (auto) 70.1 %; Platelet Count 187 K/uL (130-400); RDW Standard Deviation 47.8 fL (36.4-46.3); Red Blood Count 3.56 M/uL (4.2-5.4); White Blood Count 5.48 K/uL (4.8-10.8)
[2019-05-30 07:01] LABS: Calcium 9.3 mg/dl (8.5-10.1); Creatinine Clr Calc Pharmacy 70.7 ml/min; Est GFR (African American) 99.2; Est GFR (Non-African American) 85.6; Potassium 3.8 mmol/L (3.5-5.1)
[2019-05-30 07:18] VITALS: BP 116/75; TEMP 98.8
[2019-05-30] MEDS ORDERED: predniSONE 20 MG TAB PO SCH (09:00)
[2019-05-30] MEDS: APIXABAN 5 MG TABLET PO SCH (09:02)
[2019-05-30] MEDS: SERTRALINE HCL 100 MG TABLET PO SCH (09:02)
[2019-05-30] MEDS: UMECLIDINIUM BRM/VILANTEROL INH SCH (09:02)
[2019-05-30] MEDS: cephALEXin 500 MG CAP PO SCH (09:02)
[2019-05-30] MEDS: ANORO ELLIPTA~ORDER AWAITING ACTION SCH (09:03)
--- NOTE | 2019-05-30 09:33 | Orthopedic Progress Note ---
Date of Service May 30, 2019 Assessment & Plan (1) Pulmonary embolism: 63 yo female stable 1 week s/p right TSA, new PE 1. Med management 2. DVT prophylaxis- started on Eliquis, SCDs 3. PT/OT 4. D/C planning- home w/ HH Subjective Pt resting in bed,denies complaints Physical Exam Physical Exam: Shoulder incision benign, pt denies SOB Results & Data Vital Signs (Past 12 Hours) Vital Signs Temp Pulse Pulse Resp BP Pulse Ox 05/30/19 07:22 78 16 96 05/30/19 07:00 37.1 C 73 16 116/75 94 05/29/19 23:28 86 16 96 05/29/19 23:01 37.2 C 86 14 106/68 93 Laboratory Results 05/30/19 05/30/19 Range/Units 06:02 06:02 WBC 5.48 (4.8-10.8) K/uL RBC 3.56 L (4.2-5.4) M/uL Hgb 11.1 L (12.0-16.0) g/dL Hct 33.3 L (37-47) % MCV 93.5 (80-100) fL MCH 31.2 (25-34) pg MCHC 33.3 (32-36) g/dL RDW Std Deviation 47.8 H (36.4-46.3) fL RDW Coeff of Perry 14.0 (11.5-14.5) % Plt Count 187 (130-400) K/uL MPV 9.4 (7.4-10.4) fL Immature Gran % (Auto) 0.2 % Neut % (Auto) 70.1 % Lymph % (Auto) 20.1 % Sumner % (Auto) 8.8 % Eos % (Auto) 0.4 % Baso % (Auto) 0.4 % Immature Gran # (Auto) 0.01 (0.00-0.02) K/uL Neut # (Auto) 3.85 (1.4-6.5) K/uL Lymph # (Auto) 1.10 L (1.2-3.4) K/uL Sumner # (Auto) 0.48 (0.11-0.59) K/uL Eos # (Auto) 0.02 (0-0.5) K/uL Baso # (Auto) 0.02 (0-0.2) K/uL Sodium 141 (136-145) mmol/L Potassium 3.8 (3.5-5.1) mmol/L Chloride 108 H (98-107) mmol/L Carbon Dioxide 27 (21-32) mmol/L Anion Gap 6.0 (3-11) BUN 19 H D (7-18) mg/dl Creatinine 0.74 (0.6-1.2) mg/dl Est Cr Clr Drug Dosing 70.7 ml/min Est GFR ( Amer) 99.2 Est GFR (Non-Af Amer) 85.6 BUN/Creatinine Ratio 25.0 H (10-20) Glucose 114 H (70-99) mg/dl Calcium 9.3 (8.5-10.1) mg/dl (1) Pulmonary embolism Acute cor pulmonale presence: unspecified Chronicity: unspecified Pulmonary embolism type: unspecified Qualified Code(s): I26.99 - Other pulmonary embolism without acute cor pulmonale
[2019-05-30 11:19] VITALS: PULSE 84; O2SAT 94
--- NOTE | 2019-05-30 12:44 | Discharge Summary ---
Date of Service May 30, 2019 Admission HPI Per Admitting Provider 83-year-old female with history of COPD, sarcoidosis, current every day smoker, depression, anxiety, chronic low back pain secondary to lumbar herniation and degenerative disc disease, recent right shoulder surgery on 05/23/2019 presents with shortness of breath on exertion and worsening cough x3 days. Patient reports having chronic productive cough at baseline however she has been hacking more and having thicker mucus production. She also gets very short of breath just going from bed to bathroom. She is also having some right shoulder pain. She denies any chest pain, dizziness, headache, fever, chills, abdominal pain, nausea, vomiting, constipation, diarrhea, hematochezia, melena, hematuria, dysuria. Social history: Patient smoked anywhere from 4 to 2 packs/day from age [age], quit for about 13 years and restarted last year, denies alcohol use, or recreational drug use Surgical history: Left hip replacement, right shoulder surgery-total arthroplasty, hysterectomy, right elbow surgery ED course: Found to be tachypneic, mildly tachycardic to 101 and hypoxic - required 2 L nasal cannula. Principal Diagnosis Pulmonary embolism, COPD exacerbation Discharge Exam Constitutional WD/WN, vitals as above Eyes + anicteric sclerae Neck trachea midline, no thyromegaly Respiratory normal respiratory effort Auscultation: + diminished lung sounds (Diminished throughout) and + wheezes (A few scattered faint expiratory wheezes bilaterally); no crackles and no rhonchi Cardiovascular RRR, no murmur, no edema Chest (Breasts) Chest: normal inspection of chest Gastrointestinal (Abdomen) normal bowel sounds, soft, nontender, no hepatosplenomegaly Musculoskeletal Extremities: + extremities abnormal to inspection (Right upper extremity and shoulder sling, dressing intact of right shoulder clean dry), no cyanosis and no clubbing Skin no rashes, warm and dry Neurologic moves all extremities and awake; no focal motor deficits Psychiatric A+Ox3, euthymic affect Lymphatic no lymphedema Discharge Data Allergies Allergy/AdvReac Type Severity Reaction Status Date / Time No Known Allergies Allergy Verified 05/28/19 17:57 Consultations 05/28/19 19:27 ED Decision to Admit Stat 05/28/19 23:03 Consult Orthopedic Surgery Routine Ordered Studies 05/28/19 17:10 CT angio chest PE protocol Stat 05/28/19 19:51 US point of care ultrasound Urgent 05/28/19 21:19 US venous doppler LE BI Stat Chest x-ray Echocardiogram Hospital Course (1) Pulmonary embolism: Provoked likely by recent shoulder surgery Is fairly small and subsegmental in the right upper lobe -She was placed on heparin drip upon admission and then switched to Eliquis PE dosing 10 mg p.o. twice daily x7 days and then down to 5 mill grams p.o. twice daily -Benefits and side effects discussed with patient. - Given size and provoked would recommend 3 month course. -Continue follow-up with PCP after discharge (2) COPD exacerbation: Developed acute COPD exacerbation while hospitalized with wheezing and increased work of breathing, persistent hypoxia Is on chronic O2 at home as needed but was requiring it continuously here -Was given Solu-medrol 125mg given in ER and then given prednisone 60mg daily x2 more days while here as well as nebulizer treatments Patient reports usually getting/needing 14 day tapering course. She was much improved and was stable for discharge -She will go out on a prednisone taper that goes down by 10 mg every 2 days over the next 10 days -Follow-up with PCP (3) Acute and chronic respiratory failure with hypoxia: Now requiring oxygen with exertion, however did have oxygen at home already which she would wear as needed. Two-step walking oxygen test here shows that she needs 2 L with exertion but no oxygen at rest (4) H/O arthroplasty: Appreciate orthopedic review. Will switch post surgical antibiotic prophylaxis to Keflex to complete full 7 day course as her could not find her cefadroxil prescription at home and not on formulary here. (5) Anxiety: Stable -Continue home lorazepam as needed, buspirone 10 mill grams p.o. twice daily (6) Depression: Continue home meds, sertraline and trazodone. (7) Tobacco use disorder: Declined nicotine patch/replacement. Encouraged to stop smoking. (8) Sarcoidosis: Steroid tapering course as above. Patient reports no skin or other manifestations other than her lungs. Diagnosis since 2004. Follows with Dr Cote. (9) Discharge planning issues: Stable for discharge to home Total Time Total Time Spent Total Time Spent (In Minutes): 35 minutes Total Time Includes: Examination of the Patient, Discharge Planning and Medication Reconciliation Discharge Plan Discharge Items Patient Disposition: Home - Home Health Services Reason For Visit: PE, ELEVATED TROP Discharge Diagnosis: Pulmonary embolism, COPD Exacerbation Condition on Discharge: Fair Activity: Resume your previous activity Non-emergency contact: Primary Care Provider and Surgeon Call non-emergency contact if: you have any medication questions, your symptoms worsen, your pain is not controlled, your pain is worsening, your pain is unusual for you, your pain is concerning for you and your temperature is above 101 Follow-up/Referrals: Nichole Antunez, CLAY [Primary Care Provider] - 06/06/19 2:00 pm (Please, follow up at CLAY Antunez's office with her associate, Saniya Shay PA-C, on June 06 at 2:00 pm. *If you need to change this appointment, call the office at [phone].) Diet: Regular Addtl Attending Provider Instructions: You were admitted with a blood clot in your lung called a Pulmonary embolism. This will need to be treated with a blood thinner called Eliquis twice a day for at least 3 months. If you develop bleeding in your stool, vomit, urine, or sustain trauma resulting in bleeding, please come to the hospital right away. If you fall and hit your head, or have a bad headache, you will need to get checked out in the hospital to make sure there is no bleeding in your brain. Do not take any other blood thinners while you are on Eliquis such as aspirin or NSAIDs (meloxicam, motrin, ibuprofen Advil, Aleve, etc.). You were also treated for a COPD exacerbation with prednisone and nebulizers. You were tested and continue to require Oxygen 2L by nasal cannula with any exertion/walking, but can remove it at rest. Please finish out the prednisone taper as prescribed. Follow up with your Orthopedic Surgeon and finish out the cephalexin for the shoulder as prescribed. Please follow up with your PCP within 1-2 weeks after discharge. Pending Studies at Discharge: No Stand-Alone Forms: My [employer], Smoking Cessation Medications and DC Order Prescriptions: New cephalexin 500 mg Capsule 500 mg PO BID Qty: 6 RF: 0 Eliquis 5 mg Tablet 10 mg PO BID 30 Days Qty: 72 RF: 0 prednisone 10 mg tablet 60 mg PO DAILY Qty: 36 RF: 0 Continued trazodone 50 mg tablet 50 mg PO HS Qty: 90 RF: 1 albuterol sulfate 2.5 mg /3 mL (0.083 %) solution for nebulization 2.5 mg INHALATION QID PRN (Reason: Shortness Of Breath Or Wheezing) Qty: 90 RF: 5 sertraline 100 mg tablet 200 mg PO QAM Qty: 60 RF: 5 Anoro Ellipta 62.5-25 mcg/actuation blister with device 1 puffs inhalation QAM Qty: 60 RF: 5 albuterol sulfate [Ventolin HFA] 90 mcg/actuation HFA aerosol inhaler 2 puff inhalation QID PRN (Reason: Shortness Of Breath Or Wheezing) Qty: 18 RF: 5 buspirone 10 mg tablet 10 mg PO BID Qty: 60 RF: 5 cyclobenzaprine 10 mg tablet 10 mg PO TID PRN (Reason: Muscle Spasm) Qty: 60 RF: 5 lorazepam 1 mg tablet 1 mg PO DAILY PRN (Reason: Anxiety) Qty: 30 RF: 3 sennosides [Senokot] 8.6 mg tablet 17.2 mg PO HS PRN (Reason: Constipation) RF: 0 acetaminophen [Tylenol Extra Strength] 500 mg tablet 1,000 mg PO Q8H PRN (Reason: Pain) RF: 0 oxycodone 5 mg tablet 5 mg PO Q4H MDD 6 TABLETS PRN (Reason: Pain) RF: 0 Discontinued cefadroxil 500 mg capsule 500 mg PO BID Qty: 14 RF: 0 meloxicam 7.5 mg tablet 7.5 mg PO DAILY PRN (Reason: Shoulder Pain) RF: 0 aspirin [Aspirin Low Dose] 81 mg tablet,delayed release (DR/EC) 81 mg PO QAM RF: 0 Discharge Orders: Discharge Order (Routine); Ordered 05/30/19 Ordered By: Trudy Rolle/Other Patient Handouts: Embolism Pulmonary, Apixaban Oral tablet Admission Data Admit Date/Time: 05/29/19 11:17 Attending Provider: Trudy Booth Admit Provider: Basilio Cary Primary Care Provider: Nichole Antunez Other Providers: [facility] ; Basilio Cary ; Aden Correia Other Interventions: Discharge Summary Assessment (RN) Last Done: 05/30/19 13:00 DC Date/Time DO NOT enter until pt leaves facility: 05/30/19 14:02
[2019-05-30] MEDS ORDERED: cephALEXin 500MG HOME PACK PO ONE (13:02)
[2019-05-30] MEDS ORDERED: APIXABAN 5 MG TABLET PO ONE (13:04)
[2019-05-30] MEDS ORDERED: cephALEXin 500 MG CAP PO SCH ×2 (21:00)
== END 2019-05-30 14:02 | disposition home health service (06) | DRG 176 ==
LOC: 2S 16:47 → ED 16:47 → SUATTDRO 21:09 → 2S 21:52 → SUATTDRO 05-29 11:17 → 3N 05-29 17:14

== ENCOUNTER 2020-08-04 18:22 | Inpatient (IN) ==
[2020-08-04] MEDS ORDERED: MoRPHine SULFATE 4 MG/ML 1 ML CARP\\VIAL IV STA (18:35)
[2020-08-04] MEDS ORDERED: ONDANSETRON INJ 2 MG/ML 2 ML VIAL IV STA (18:35)
--- NOTE | 2020-08-04 18:56 | XRay Report ---
SINGLE VIEW CHEST CLINICAL HISTORY: Atypical chest pain. FINDINGS: An AP, portable, upright chest radiograph is compared to study dated 05/28/2019 and correla viet with chest CT dated 04/14/2020. The examination is degraded by portable technique and patient rot ation. The heart is mildly enlarged noting atherosclerotic calcification of the thoracic aorta. The p ulmonary vasculature is noncongested. There are calcified mediastinal and hilar lymph nodes. Advanced emphysematous change is again noted. There are masslike upper lobe opacities with numerous calcified and noncalcified pulmonary nodules. No superimposed airspace consolidation, large pleural effusion, or pneumothorax is seen. The skeletal structures are osteopenic. There are healed right-sided rib fra ctures. A right shoulder arthroplasty is in place. IMPRESSION: 1. No acute cardiopulmonary abnormality. 2. Advanced emphysema and chronic parenchymal changes as above. 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 Electronically signed by: Logan Munson M.D. 08/04/2020 6:55 PM
[2020-08-04 19:02] LABS: Basophils # (auto) 0.03 K/uL (0-0.2); Basophils % (auto) 0.4 %; Eosinophils # (auto) 0.01 K/uL (0-0.5); Eosinophils % (auto) 0.1 %; Hematocrit (blood only) 46.1 % (37-47); Hemoglobin 15.7 g/dL (12.0-16.0); Immature Granulocytes # (auto) 0.05 K/uL (0.00-0.02); Immature Granulocytes % (auto) 0.7 %; Lymphocytes % (auto) 17.5 %; Mean Corpuscular Hemoglobin 31.5 pg (25-34); Mean Corpuscular Hgb Conc 34.1 g/dL (32-36); Mean Corpuscular Volume 92.6 fL (80-100); Mean Platelet Volume 9.7 fL (7.4-10.4); Monocytes # (auto) 0.41 K/uL (0.11-0.59); Monocytes % (auto) 5.5 %; Neutrophils # (auto) 5.63 K/uL (1.4-6.5); Neutrophils % (auto) 75.8 %; Platelet Count 186 K/uL (130-400); RDW Coefficient of Variation 14.9 % (11.5-14.5); RDW Standard Deviation 50.9 fL (36.4-46.3); Red Blood Count 4.98 M/uL (4.2-5.4); White Blood Count 7.43 K/uL (4.8-10.8)
[2020-08-04 19:08] LABS: D Dimer 330 ug/L FEU (0-500)
[2020-08-04 19:18] LABS: Alanine Aminotransferase 24 U/L (12-78); Albumin Level 3.8 gm/dl (3.4-5.0); Aspartate Aminotransferase 12 U/L (15-37); BUN Creatinine Ratio 21.5 (10-20); Blood Urea Nitrogen 25 mg/dl (7-18); Calcium 9.4 mg/dl (8.5-10.1); Carbon Dioxide 27 mmol/L (21-32); Chloride 106 mmol/L (98-107); Creatinine Clr Calc Pharmacy 47.6 ml/min; Est GFR (African American) 57.8; Est GFR (Non-African American) 49.9; Glucose 109 mg/dl (70-99); Lipase 117 U/L (73-393); Potassium 4.3 mmol/L (3.5-5.1); Sodium 140 mmol/L (136-145)
[2020-08-04 19:23] LABS: Albumin Globulin Ratio 1.1 (0.9-2); Alkaline Phosphatase 100 U/L (45-117); Bilirubin,Total 0.7 mg/dl (0.2-1); Globulin 3.4 gm/dl (2.5-4.0); Total Protein 7.2 gm/dl (6.4-8.2); Troponin I < 0.015 ng/ml (0-0.045)
[2020-08-04] MEDS ORDERED: methylPREDNISolone 125 MG/2 ML VIAL IV STA (19:40)
[2020-08-04] MEDS ORDERED: ALBUT/IPRATROP 3MG/0.5MG NEB 3 ML VIAL NEB STA (19:40)
--- NOTE | 2020-08-04 19:45 | Emergency Department Note ---
Impression & Plan Chest pain ED Provider Note INFORMANT: Patient ED PROVIDER(S): Milton Torres MD CHIEF COMPLAINT: Chest pain PLAN: Disposition: Admitted Condition: Good Outpatient prescription management: none Referral: None MEDICAL DECISION MAKING: Patient presented with chest pain. She was given aspirin by EMS. ECG revealed a sinus rhythm without ischemia. Her blood work and x-ray was obtained. She had a unremarkable CBC, chemistry panel, LFTs, D-dimer and troponin. Chest x- ray revealed significant chronic changes of COPD. Given her wheezing she was given Solu-Medrol and a DuoNeb. I discussed further management in the hospital in light of her chest pain for a formal rule out. The patient was in agreement. [facility] Dr[facility] Basilio Cary. Patient was evaluated in the ER and admitted for further management. Triage Nursing notes reviewed and agree them. vital Signs: reviewed and remarkable for no significant abnormalities Differential diagnosis: Cardiac ischemia, aortic dissection, pulmonary embolism, pneumothorax, pneumonia, pericarditis, myocarditis, esophageal rupture, GERD, cholecystitis, pancreatitis, musculoskeletal, as well as other pathologies. Diagnostics interpreted by me: ECG: Rate: 89 Rhythm:Normal sinus Harmon:Normal QRS:Normal ST segements:No elevation or depression Other:No PACs or PVCs Cardiac Monitoring: Cardiac monitoring ordered by me: The patient was placed on continuous cardiac monitoring and observed. It revealed a normal sinus rhythm at 90 beats per minute without ectopy or evidence of dysrhythmia. Imaging studies: Chest x-ray performed revealed severe emphysematous COPD changes. No acute process noted. I refer you to the EMR for further details. HPI: The patient is a 64 year old female who presents to the Emergency Room with complaints of substernal chest pain. This started earlier today and is feels like a heavy pressure. The patient also notes the following associated symptoms, shortness of breath. The patient has been given 4 aspirin by EMS for relieving factors. Current pain is rated as 8/10. Patient has no known cardiac history. She does have a history of severe COPD. She uses oxygen as needed. The patient states she did use her nebulizer today and did not help. Pt denies LOC, headache, fevers, chills, diaphoresis, visual changes, neck pain nausea, vomiting, abdominal pain, back pain, melena, hematochezia, urinary symptoms, numbness, weakness, lymphadenopathy, rash, or other complaints. ROS: See above HPI for pertinent positives & negatives. A total of 10 systems reviewed and were otherwise negative. PAST MEDICAL HISTORY:See Below , COPD PAST SURGICAL HISTORY:See Below, hysterectomy FAMILY HISTORY:See Below SOCIAL HISTORY:See Below, still smoking HOME MEDICATIONS:See Below ALLERGIES:See Below VITALS:See Below PHYSICAL EXAMINATION: GENERAL: Awake, alert, uncomfortable-appearing, in no distress HENT: Normocephalic, atraumatic. Oropharynx unremarkable. EYES: Normal conjunctiva. Sclera non-icteric. NECK: Inspection normal. Non-tender. Supple. No nuchal rigidity. FROM. No masses. RESPIRATORY: Scattered wheezes. No rales. Normal respiratory effort. CARDIAC: Normal rate. Normal rhythm. No murmurs. No rubs. Extremities warm and well perfused. Pulses equal. No JVD. GI: Soft, non-distended. No tenderness to palpation. No rebound or guarding. No masses. RECTAL: Deferred. MUSCULOSKELETAL: Atraumatic. Chest examination reveals no tenderness. The back is symmetrical on inspection without obvious abnormality. There is no CVA tenderness to palpation. No joint edema. LOWER EXTREMITIES: Calves are equal size bilaterally and non-tender. No edema. No discoloration. NEURO: Normal sensorium. No sensory or motor deficits noted. SKIN: No rash or jaundice noted. Milton Torres MD Past Med/Surg History Medical History (Updated 08/04/20 @ 19:44 by Milton Torres MD) Acute and chronic respiratory failure with hypoxia Anxiety COPD (chronic obstructive pulmonary disease) + rare O2 PRN (no use x 1 year) COPD exacerbation Depression Pulmonary embolism Sarcoidosis stable Surgical History H/O arthroplasty H/O hysterectomy for benign disease (10/02/12) History of hip replacement Left PREETI: 09/11/17: SAB x 1 at L3[facility]L4 at [facility] History of right shoulder replacement Hx of colonoscopy Hx of elbow surgery RIGHT Family History (Updated 10/23/19 @ 09:07 by Beena Mendoza MA) Father Myocardial infarction Brother Anxiety COPD (chronic obstructive pulmonary disease) Daughter Anxiety Sister Breast cancer Other Diabetes Kidney disease Denies family history of Ovarian cancer Prostate cancer Colorectal cancer Social History Smoking Status: Current every day smoker Tobacco Type: Cigarettes Cigarettes Per Day: 1ppd; Second Hand Exposure: No; Hx Alcohol Use: Yes Hx Substance Use: No Preferred Language: Zambian Communication Ability: Effective Senior Telecommunications Specialist Required: No Beliefs That Will Affect Care: None marital status: Current Living Situation: Spouse Feels Safe at Home: Yes Assistive Devices: None Allergies Allergies Allergy/AdvReac Type Severity Reaction Status Date / Time No Known Allergies Allergy Verified 08/04/20 19:25 Home Meds Home Medications Medication Instructions Recorded Confirmed acetaminophen [Tylenol Extra 1,000 mg PO Q8H PRN 05/28/19 08/04/20 Strength] Previous Rx's Medication Instructions Recorded albuterol sulfate 90 mcg/actuation 2 puff INHALATION QID PRN #18 gm 02/17/20 aerosol inhaler albuterol sulfate 2.5 mg INHALATION QID PRN #90 ml 02/19/20 sertraline 100 mg tablet 200 mg PO QAM #60 tab 02/19/20 umeclidinium 62.5 mcg-vilanterol 1 inh INHALATION QAM #60 ea 02/21/20 25 mcg/actuation powdr for inhalation buspirone 10 mg tablet 10 mg PO BID #60 tab 03/20/20 lorazepam 1 mg tablet 1 mg PO DAILY PRN #30 tab 06/15/20 meloxicam 7.5 mg tablet 15 mg PO DAILY #30 tab 06/15/20 prednisone 10 mg tablet See Rx Instructions PO DAILY #36 07/13/20 tab cyclobenzaprine 10 mg tablet 10 mg PO TID PRN #60 tab 07/14/20 trazodone 50 mg tablet 50 mg PO HS #30 tab 07/14/20 Results & Data (ED) Vital Signs Vital Signs - 24 hr 08/04/20 18:30 08/04/20 18:32 08/04/20 18:37 Temperature Temperature Source Pulse Rate 90 91 H Pulse Rate from SpO2 Sensor 89 92 H Pulse Rhythm Pulse Strength Respiratory Rate 20 22 Respiratory Effort / Characteristics Respiratory Depth Blood Pressure 113/78 Blood Pressure Mean 89 Blood Pressure Position Pulse Oximetry 97 97 97 Oxygen Delivery Method Nasal Cannula Oxygen Flow Rate 4 Sepsis Recent Fever Within 48 Hours Sepsis New/Unexplained Change in Mental Status Sepsis Action Taken by Nursing 08/04/20 18:40 08/04/20 18:44 08/04/20 18:50 Temperature 36.9 C Temperature Source Oral Pulse Rate 90 95 H 88 Pulse Rate from SpO2 Sensor 90 89 Pulse Rhythm Regular Pulse Strength Normal Respiratory Rate 18 16 Respiratory Effort / Characteristics SOB on Exertion Respiratory Depth Normal Blood Pressure 113/78 Blood Pressure Mean 89 Blood Pressure Position Lying Pulse Oximetry 97 97 97 Oxygen Delivery Method Nasal Cannula Oxygen Flow Rate 4 Sepsis Recent Fever Within 48 Hours No Sepsis New/Unexplained Change in Mental Status N/A Sepsis Action Taken by Nursing No Action Required 08/04/20 19:00 08/04/20 19:10 08/04/20 19:20 Temperature Temperature Source Pulse Rate 87 90 90 Pulse Rate from SpO2 Sensor 87 90 90 Pulse Rhythm Pulse Strength Respiratory Rate 22 Respiratory Effort / Characteristics Respiratory Depth Blood Pressure Blood Pressure Mean Blood Pressure Position Pulse Oximetry 97 97 97 Oxygen Delivery Method Oxygen Flow Rate Sepsis Recent Fever Within 48 Hours Sepsis New/Unexplained Change in Mental Status Sepsis Action Taken by Nursing 08/04/20 19:30 08/04/20 19:40 08/04/20 19:44 Temperature Temperature Source Pulse Rate 89 88 87 Pulse Rate from SpO2 Sensor 90 89 87 Pulse Rhythm Pulse Strength Respiratory Rate 21 Respiratory Effort / Characteristics Respiratory Depth Blood Pressure 110/69 Blood Pressure Mean 82 Blood Pressure Position Pulse Oximetry 97 97 97 Oxygen Delivery Method Oxygen Flow Rate Sepsis Recent Fever Within 48 Hours Sepsis New/Unexplained Change in Mental Status Sepsis Action Taken by Nursing 08/04/20 19:50 08/04/20 20:00 08/04/20 20:05 Temperature Temperature Source Pulse Rate 88 88 Pulse Rate from SpO2 Sensor 88 88 Pulse Rhythm Pulse Strength Respiratory Rate 20 15 18 Respiratory Effort / Characteristics Non-Labored Spontaneous Respiratory Depth Blood Pressure 110/71 Blood Pressure Mean 84 Blood Pressure Position Pulse Oximetry 97 97 95 Oxygen Delivery Method Nasal Cannula Oxygen Flow Rate 3 Sepsis Recent Fever Within 48 Hours Sepsis New/Unexplained Change in Mental Status Sepsis Action Taken by Nursing 08/04/20 20:10 08/04/20 20:20 08/04/20 20:30 Temperature Temperature Source Pulse Rate 87 90 91 H Pulse Rate from SpO2 Sensor 87 90 91 H Pulse Rhythm Pulse Strength Respiratory Rate 21 23 19 Respiratory Effort / Characteristics Respiratory Depth Blood Pressure Blood Pressure Mean Blood Pressure Position Pulse Oximetry 97 95 97 Oxygen Delivery Method Oxygen Flow Rate Sepsis Recent Fever Within 48 Hours Sepsis New/Unexplained Change in Mental Status Sepsis Action Taken by Nursing 08/04/20 20:31 08/04/20 20:40 08/04/20 20:50 Temperature Temperature Source Pulse Rate 92 H 90 89 Pulse Rate from SpO2 Sensor 92 H 90 89 Pulse Rhythm Pulse Strength Respiratory Rate 19 20 Respiratory Effort / Characteristics Respiratory Depth Blood Pressure Blood Pressure Mean 81 Blood Pressure Position Pulse Oximetry 97 97 97 Oxygen Delivery Method Oxygen Flow Rate Sepsis Recent Fever Within 48 Hours Sepsis New/Unexplained Change in Mental Status Sepsis Action Taken by Nursing 08/04/20 21:00 08/04/20 21:10 08/04/20 21:20 Temperature Temperature Source Pulse Rate 88 90 88 Pulse Rate from SpO2 Sensor 88 90 89 Pulse Rhythm Pulse Strength Respiratory Rate 18 21 19 Respiratory Effort / Characteristics Respiratory Depth Blood Pressure 106/71 Blood Pressure Mean 82 Blood Pressure Position Pulse Oximetry 97 97 97 Oxygen Delivery Method Oxygen Flow Rate Sepsis Recent Fever Within 48 Hours Sepsis New/Unexplained Change in Mental Status Sepsis Action Taken by Nursing 08/04/20 21:30 08/04/20 21:40 Temperature Temperature Source Pulse Rate 87 90 Pulse Rate from SpO2 Sensor 87 90 Pulse Rhythm Pulse Strength Respiratory Rate 14 Respiratory Effort / Characteristics Respiratory Depth Blood Pressure 102/77 Blood Pressure Mean 85 Blood Pressure Position Pulse Oximetry 96 94 Oxygen Delivery Method Oxygen Flow Rate Sepsis Recent Fever Within 48 Hours Sepsis New/Unexplained Change in Mental Status Sepsis Action Taken by Nursing Laboratory Data Result diagrams: 08/04/20 18:48 08/04/20 18:48 Lab Results 08/04/20 08/04/20 08/04/20 Range/Units 18:48 18:48 18:48 WBC 7.43 (4.8-10.8) K/uL RBC 4.98 (4.2-5.4) M/uL Hgb 15.7 (12.0-16.0) g/dL Hct 46.1 (37-47) % MCV 92.6 (80-100) fL MCH 31.5 (25-34) pg MCHC 34.1 (32-36) g/dL RDW Std Deviation 50.9 H (36.4-46.3) fL RDW Coeff of Perry 14.9 H (11.5-14.5) % Plt Count 186 (130-400) K/uL MPV 9.7 (7.4-10.4) fL Immature Gran % (Auto) 0.7 % Neut % (Auto) 75.8 % Lymph % (Auto) 17.5 % Chambers % (Auto) 5.5 % Eos % (Auto) 0.1 % Baso % (Auto) 0.4 % Neut # (Auto) 5.63 (1.4-6.5) K/uL Lymph # (Auto) 1.30 (1.2-3.4) K/uL Chambers # (Auto) 0.41 (0.11-0.59) K/uL Eos # (Auto) 0.01 (0-0.5) K/uL Baso # (Auto) 0.03 (0-0.2) K/uL Immature Gran # (Auto) 0.05 H (0.00-0.02) K/uL D-Dimer 330 (0-500) ug/L FEU Sodium 140 (136-145) mmol/L Potassium 4.3 (3.5-5.1) mmol/L Chloride 106 (98-107) mmol/L Carbon Dioxide 27 (21-32) mmol/L Anion Gap 7.0 (3-11) BUN 25 H (7-18) mg/dl Creatinine 1.15 (0.6-1.2) mg/dl Est Cr Clr Drug Dosing 47.6 ml/min Est GFR ( Amer) 57.8 Est GFR (Non-Af Amer) 49.9 BUN/Creatinine Ratio 21.5 H (10-20) Glucose 109 H (70-99) mg/dl Calcium 9.4 (8.5-10.1) mg/dl Total Bilirubin 0.7 (0.2-1) mg/dl AST 12 L (15-37) U/L ALT 24 (12-78) U/L Alkaline Phosphatase 100 (45-117) U/L Troponin I < 0.015 (0-0.045) ng/ml Total Protein 7.2 (6.4-8.2) gm/dl Albumin 3.8 (3.4-5.0) gm/dl Globulin 3.4 (2.5-4.0) gm/dl Albumin/Globulin Ratio 1.1 (0.9-2) Lipase 117 (73-393) U/L COVID-19 Eval Order SARS-CoV-2, RNA, NAAT (NEGATIVE) 08/04/20 08/04/20 Range/Units 20:00 20:00 WBC (4.8-10.8) K/uL RBC (4.2-5.4) M/uL Hgb (12.0-16.0) g/dL Hct (37-47) % MCV (80-100) fL MCH (25-34) pg MCHC (32-36) g/dL RDW Std Deviation (36.4-46.3) fL RDW Coeff of Perry (11.5-14.5) % Plt Count (130-400) K/uL MPV (7.4-10.4) fL Immature Gran % (Auto) % Neut % (Auto) % Lymph % (Auto) % Chambers % (Auto) % Eos % (Auto) % Baso % (Auto) % Neut # (Auto) (1.4-6.5) K/uL Lymph # (Auto) (1.2-3.4) K/uL Chambers # (Auto) (0.11-0.59) K/uL Eos # (Auto) (0-0.5) K/uL Baso # (Auto) (0-0.2) K/uL Immature Gran # (Auto) (0.00-0.02) K/uL D-Dimer (0-500) ug/L FEU Sodium (136-145) mmol/L Potassium (3.5-5.1) mmol/L Chloride (98-107) mmol/L Carbon Dioxide (21-32) mmol/L Anion Gap (3-11) BUN (7-18) mg/dl Creatinine (0.6-1.2) mg/dl Est Cr Clr Drug Dosing ml/min Est GFR ( Amer) Est GFR (Non-Af Amer) BUN/Creatinine Ratio (10-20) Glucose (70-99) mg/dl Calcium (8.5-10.1) mg/dl Total Bilirubin (0.2-1) mg/dl AST (15-37) U/L ALT (12-78) U/L Alkaline Phosphatase (45-117) U/L Troponin I (0-0.045) ng/ml Total Protein (6.4-8.2) gm/dl Albumin (3.4-5.0) gm/dl Globulin (2.5-4.0) gm/dl Albumin/Globulin Ratio (0.9-2) Lipase (73-393) U/L COVID-19 Eval Order Covid19 [facility]Now [facility] SARS-CoV-2, RNA, NAAT NEGATIVE (NEGATIVE) Administered Medications Discontinued Medications Albuterol (Albut/Ipratrop 3mg/0.5mg Neb 3 Ml Vial) 3 ml NEB NOW STA Stop: 08/04/20 19:41 Last Admin: 08/04/20 20:04 Dose: 3 ml Documented by: [id number] Methylprednisolone (Methylprednisolone 125 Mg/2 Ml Vial) 125 mg IV NOW STA Stop: 08/04/20 19:41 Last Admin: 08/04/20 19:44 Dose: 125 mg Documented by: [id number] Morphine Sulfate (Morphine Sulfate 4 Mg/Ml 1 Ml Carp\Vial) 4 mg IV NOW STA Stop: 08/04/20 18:36 Last Admin: 08/04/20 18:44 Dose: 4 mg Documented by: [id number] Ondansetron HCl (Ondansetron Inj 2 Mg/Ml 2 Ml Vial) 4 mg IV NOW STA Stop: 08/04/20 18:36 Last Admin: 08/04/20 18:44 Dose: 4 mg Documented by: [id number] Discharge Plan Visit Data Chief Complaint: Chest Pain Stated Complaint: CHEST PAIN, COUGH ED Provider: Milton Torres Discharge Problem: Chest pain Forms Stand Alone Forms: [facility] Prescriptions Prescriptions: No Action albuterol sulfate [Ventolin HFA] 90 mcg/actuation HFA aerosol inhaler 2 puff inhalation QID PRN (Reason: Shortness Of Breath Or Wheezing) Qty: 18 RF: 11 albuterol sulfate 2.5 mg /3 mL (0.083 %) solution for nebulization 2.5 mg INHALATION QID PRN (Reason: Shortness Of Breath Or Wheezing) Qty: 90 RF: 5 sertraline 100 mg tablet 200 mg PO QAM Qty: 60 RF: 5 Anoro Ellipta 62.5-25 mcg/actuation blister with device 1 inh inhalation QAM Qty: 60 RF: 5 buspirone 10 mg tablet 10 mg PO BID Qty: 60 RF: 11 lorazepam 1 mg tablet 1 mg PO DAILY PRN (Reason: Anxiety) Qty: 30 RF: 3 meloxicam 7.5 mg tablet 15 mg PO DAILY Qty: 30 RF: 5 prednisone 10 mg tablet See Rx Instructions PO DAILY Qty: 36 RF: 0 cyclobenzaprine 10 mg tablet 10 mg PO TID PRN (Reason: Muscle Spasm) Qty: 60 RF: 0 trazodone 50 mg tablet 50 mg PO HS Qty: 30 RF: 0 acetaminophen [Tylenol Extra Strength] 500 mg tablet 1,000 mg PO Q8H PRN (Reason: Pain) RF: 0
--- NOTE | 2020-08-04 21:12 | History & Physical Report ---
Date of Service August 04, 2020 Assessment & Plan (1) Chest pain: Main differential is COPD exacerbation versus cardiac. The patient will be admitted to telemetry for serial cardiac enzymes, serial EKG's, cardiac rhythm monitoring and a 2-D echocardiogram with Dopplers. Present on Admission?: Yes (2) COPD (chronic obstructive pulmonary disease): COPD exacerbation/sarcoidosis/postinflammatory pulmonary fibrosis/chronic respiratory failure/tobacco use disorder- Patient was advised to stop smoking Duonebs every 4 hours while awake and every 2 hours when necessary. Ceftriaxone 1 g IV daily Azithromycin 500 mg IV every 24 hours Pulmicort Respules 0.5 mg inhaled twice daily Hold prednisone Methylprednisolone 40 mg IV every 8 hours Continue Umeclidinium Vilanterol Present on Admission?: Yes (3) Tobacco use disorder: (4) Sarcoidosis: (5) Postinflammatory pulmonary fibrosis: (6) Chronic respiratory failure: (7) Anxiety and depression: Continue buspirone, lorazepam, sertraline and trazodone Present on Admission?: Yes History of Present Illness Chief Complaint: The patient presents to the emergency department with the development of chest pain, and received aspirin in route by EMS. Primary Care Provider: CLAY Davila The patient is a 64-year-old female with a past medical history including osteoporosis, left shoulder osteoarthritis, right shoulder replacement, COPD, anxiety depression, tobacco use disorder, sarcoidosis, postinflammatory pulmonary fibrosis, fecal incontinence, chronic respiratory failure, and COPD. She developed acute onset of substernal chest discomfort and wheezing earlier in the day today. She denies any fever or chills or productive cough. Allergies Allergy/AdvReac Type Severity Reaction Status Date / Time No Known Allergies Allergy Verified 08/04/20 19:25 Home Medications Medication Instructions Recorded Confirmed Type acetaminophen [Tylenol Extra 1,000 mg PO Q8H PRN 05/28/19 08/04/20 History Strength] albuterol sulfate 90 mcg/actuation 2 puff INHALATION QID PRN #18 gm 02/17/20 08/04/20 Rx aerosol inhaler albuterol sulfate 2.5 mg INHALATION QID PRN #90 ml 02/19/20 08/04/20 Rx sertraline 100 mg tablet 200 mg PO QAM #60 tab 02/19/20 08/04/20 Rx umeclidinium 62.5 mcg-vilanterol 1 inh INHALATION QAM #60 ea 02/21/20 08/04/20 Rx 25 mcg/actuation powdr for inhalation buspirone 10 mg tablet 10 mg PO BID #60 tab 03/20/20 08/04/20 Rx lorazepam 1 mg tablet 1 mg PO DAILY PRN #30 tab 06/15/20 08/04/20 Rx meloxicam 7.5 mg tablet 15 mg PO DAILY #30 tab 06/15/20 08/04/20 Rx prednisone 10 mg tablet See Rx Instructions PO DAILY #36 07/13/20 08/04/20 Rx tab cyclobenzaprine 10 mg tablet 10 mg PO TID PRN #60 tab 07/14/20 08/04/20 Rx trazodone 50 mg tablet 50 mg PO HS #30 tab 07/14/20 08/04/20 Rx Past Med/Surg History Medical History (Updated 08/05/20 @ 04:51 by Basilio Cary MD) Acute and chronic respiratory failure with hypoxia Anxiety Anxiety and depression COPD (chronic obstructive pulmonary disease) + rare O2 PRN (no use x 1 year) COPD exacerbation Depression Pulmonary embolism Sarcoidosis stable Surgical History H/O arthroplasty H/O hysterectomy for benign disease (10/02/12) History of hip replacement Left PREETI: 09/11/17: SAB x 1 at L3[facility]L4 at [facility] History of right shoulder replacement Hx of colonoscopy Hx of elbow surgery RIGHT Family History (Updated 10/23/19 @ 09:07 by Beena Mendoza MA) Father Myocardial infarction Brother Anxiety COPD (chronic obstructive pulmonary disease) Daughter Anxiety Sister Breast cancer Other Diabetes Kidney disease Denies family history of Ovarian cancer Prostate cancer Colorectal cancer Social History Smoking Status: Current every day smoker Tobacco Type: Cigarettes Cigarettes Per Day: 20; Second Hand Exposure: No; Hx Alcohol Use: No Hx Substance Use: No Preferred Language: Kiswahili Communication Ability: Effective Mechanical Design Technician Required: No Beliefs That Will Affect Care: None marital status: Current Living Situation: Spouse Other Information That Helps Us Care for You: No Feels Safe at Home: Yes Safety Concerns: Feels Safe At This Time Assistive Devices: Denture - Upper, Denture - Lower and Glasses Assistive Devices Comment: 2L O2 PRN Review of Systems Review of Systems: The patient denies palpitations, cough, lower extremity swelling, sore throat, fevers, chills, sweats, nausea, vomiting, diarrhea , constipation, abdominal pain, pelvic pain, blood in urine or stool, dysuria, urinary frequency or urgency, lightheadedness, dizziness, headache, memory loss, loss of consciousness, rash, abnormal bruising or bleeding, imbalance, focal or generalized weakness, numbness or tingling in arms or legs, generalized arthralgias or myalgias, back or neck pain, or night sweats. The review of systems is otherwise negative other than for that already noted above, and at least 10 systems have been reviewed. Physical Exam Physical Exam: The patient is awake, alert and oriented 3, well developed and well nourished, normocephalic and atraumatic, lying in bed and in no acute distress. HEENT--PERRL, EOMI, mucous membranes and oropharynx normal. Neck--supple. No JVD. No bruits. Thyroid normal, trachea midline, no adenopathy. Heart--normal S1 and S2. No murmurs, rubs or gallops. Lungs--few wheezes bilaterally. No respiratory distress, no accessory muscle use. Abdomen--normal bowel sounds and soft. Nontender. Nondistended, no hernias or masses, no organomegaly. Extremities--no cyanosis or clubbing. No edema. Dermatologic--normal skin turgor, normal color, no abnormal lymph nodes, no r agustina. Neurologic--cranial nerves II through XII grossly intact. Rheumatologic--normal range of motion. Psychiatric--normal affect. Results & Data Results & Data ([facility]) Vital Signs (Past 12 Hours) Vital Signs Temp Pulse Resp BP Pulse Ox 08/04/20 20:05 18 95 08/04/20 20:00 88 15 110/71 97 08/04/20 19:50 88 20 08/04/20 19:44 87 110/69 97 08/04/20 19:40 88 97 08/04/20 19:30 89 21 97 08/04/20 19:20 90 08/04/20 19:10 90 22 08/04/20 19:00 87 97 08/04/20 18:50 88 16 97 08/04/20 18:44 98.4 F 95 H 18 113/78 97 08/04/20 18:40 90 97 08/04/20 18:37 97 08/04/20 18:32 91 H 22 97 08/04/20 18:30 90 20 113/78 97 Laboratory Results Laboratory Results WBC 7.43 K/uL (4.8-10.8) 08/04/20 18:48 RBC 4.98 M/uL (4.2-5.4) 08/04/20 18:48 Hgb 15.7 g/dL (12.0-16.0) 08/04/20 18:48 Hct 46.1 % (37-47) 08/04/20 18:48 MCV 92.6 fL (80-100) 08/04/20 18:48 MCH 31.5 pg (25-34) 08/04/20 18:48 MCHC 34.1 g/dL (32-36) 08/04/20 18:48 RDW Std Deviation 50.9 fL (36.4-46.3) H 08/04/20 18:48 RDW Coeff of [place] 14.9 % (11.5-14.5) H 08/04/20 18:48 Plt Count 186 K/uL (130-400) 08/04/20 18:48 MPV 9.7 fL (7.4-10.4) 08/04/20 18:48 Immature Gran % (Auto) 0.7 % 08/04/20 18:48 Neut % (Auto) 75.8 % 08/04/20 18:48 Lymph % (Auto) 17.5 % 08/04/20 18:48 [place] % (Auto) 5.5 % 08/04/20 18:48 Eos % (Auto) 0.1 % 08/04/20 18:48 Baso % (Auto) 0.4 % 08/04/20 18:48 Neut # (Auto) 5.63 K/uL (1.4-6.5) 08/04/20 18:48 Lymph # (Auto) 1.30 K/uL (1.2-3.4) 08/04/20 18:48 [place] # (Auto) 0.41 K/uL (0.11-0.59) 08/04/20 18:48 Eos # (Auto) 0.01 K/uL (0-0.5) 08/04/20 18:48 Baso # (Auto) 0.03 K/uL (0-0.2) 08/04/20 18:48 Immature Gran # (Auto) 0.05 K/uL (0.00-0.02) H 08/04/20 18:48 D-Dimer 330 ug/L FEU (0-500) 08/04/20 18:48 Sodium 140 mmol/L (136-145) 08/04/20 18:48 Potassium 4.3 mmol/L (3.5-5.1) 08/04/20 18:48 Chloride 106 mmol/L (98-107) 08/04/20 18:48 Carbon Dioxide 27 mmol/L (21-32) 08/04/20 18:48 Anion Gap 7.0 (3-11) 08/04/20 18:48 BUN 25 mg/dl (7-18) H 08/04/20 18:48 Creatinine 1.15 mg/dl (0.6-1.2) 08/04/20 18:48 Est Cr Clr Drug Dosing 47.6 ml/min 08/04/20 18:48 Est GFR ( Amer) 57.8 08/04/20 18:48 Est GFR (Non-Af Amer) 49.9 08/04/20 18:48 BUN/Creatinine Ratio 21.5 (10-20) H 08/04/20 18:48 Glucose 109 mg/dl (70-99) H 08/04/20 18:48 Calcium 9.4 mg/dl (8.5-10.1) 08/04/20 18:48 Total Bilirubin 0.7 mg/dl (0.2-1) 08/04/20 18:48 AST 12 U/L (15-37) L 08/04/20 18:48 ALT 24 U/L (12-78) 08/04/20 18:48 Alkaline Phosphatase 100 U/L (45-117) 08/04/20 18:48 Troponin I < 0.015 ng/ml (0-0.045) 08/04/20 18:48 Total Protein 7.2 gm/dl (6.4-8.2) 08/04/20 18:48 Albumin 3.8 gm/dl (3.4-5.0) 08/04/20 18:48 Globulin 3.4 gm/dl (2.5-4.0) 08/04/20 18:48 Albumin/Globulin Ratio 1.1 (0.9-2) 08/04/20 18:48 Lipase 117 U/L (73-393) 08/04/20 18:48 COVID-19 Eval Order Covid19 IDNow [facility] 08/04/20 20:00 Hepatitis C Ab Screen Neg (Neg) 08/04/20 18:48 SARS-CoV-2, RNA, NAAT NEGATIVE (NEGATIVE) 08/04/20 20:00 Diagnostic Findings [facility], [id number] XRay Report Patient: SHMUEL GAMA EAdmit Date: 08/04/20MR#: [id number]: [address] ID:[id number]: [address]: [facility] Zip: [place], [place] [address]Nzh: 64Location: EDSex: FRoom/Bed:Att Phy:Diagnosis: SOBPri Phy: Nichole Antunez CRNPService Date: 08/04/20Fa Phy:Interpreting Phy: Logan Munson MDAdmit Phy: Ordering Phy: Milton Torres MD cc: ~ SINGLE VIEW CHEST CLINICAL HISTORY: Atypical chest pain. FINDINGS: An AP, portable, upright chest radiograph is compared to study dated 05/28/2019 and correlated with chest CT dated 04/14/2020. The examination is degraded by portable technique and patient rotation. The heart is mildly enlarged noting atherosclerotic calcification of the thoracic aorta. The pulmonary vasculature is noncongested. There are calcified mediastinal and hilar lymph nodes. Advanced emphysematous change is again noted. There are masslike upper lobe opacities with numerous calcified and noncalcified pulmonary nodules. No superimposed airspace consolidation, large pleural effusion, or pneumothorax is seen. The skeletal structures are osteopenic. There are healed right-sided rib fractures. A right shoulder arthroplasty is in place. IMPRESSION: 1. No acute cardiopulmonary abnormality. 2. Advanced emphysema and chronic parenchymal changes as above. 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 Electronically signed by: Logan Munson M.D. 08/04/2020 6:55 PM Dictated: 08/04/201852Transcribed: 08/04/201852 Code Status & VTE Plan Code Status Full code VTE Prophylaxis Plan VTE Prophylaxis will be ordered: Yes PG Care Time/CCT Total # of Minutes Spent Total Time Spent with Patient: Total time spent is greater than 50% in coordination of care (as documented) at patient's floor/unit and/or counseling patient: Coding Level of Care Code 39411 Initial Inpt Care Lvl 3 Diagnoses Chest pain R07.9 COPD (chronic obstructive pulmonary disease) J44.9 Tobacco use disorder F17.200 Sarcoidosis D86.9 Postinflammatory pulmonary fibrosis J84.10 Chronic respiratory failure J96.10 Anxiety and depression F41.9; F32.9
[2020-08-04] MEDS ORDERED: ONDANSETRON INJ 2 MG/ML 2 ML VIAL IV PRN (22:49)
[2020-08-04] MEDS ORDERED: ACETAMINOPHEN 325 MG TAB PO PRN (22:49)
[2020-08-04] MEDS ORDERED: cefTRIAXone SODIUM 1,000 MG in DEXTROSE 5% 50 ML IV SCH (23:00)
[2020-08-04] MEDS: LORazepam 1 MG TAB PO PRN (23:29)
[2020-08-04] MEDS: traZODone HCL 50 MG TAB PO SCH (23:29)
[2020-08-04] MEDS: AZITHROMYCIN 500 MG in DEXTROSE 5% 250 ML IV SCH (23:30)
[2020-08-04] MEDS: busPIRone 5 MG TAB PO SCH (23:30)
[2020-08-05] MEDS: methylPREDNISolone 40 MG in SYRINGE 0 ML IV SCH ×3 (05:00→20:28)
--- NOTE | 2020-08-05 07:08 | Hospitalist Progress Note ---
Date of Service August 05, 2020 Assessment & Plan (1) Chest pain: Karine Ruiz is a 64 yo female with h/o COPD (on 2L NC on exertion, Prednisone 10mg PO daily at home), Sarcoidosis (confirmed with biopsy), post- inflammatory pulmonary fibrosis, and current tobacco abuse (30 pack year hx) who was admitted to [facility] on 08/04/2020 for COPD exacerbation. COPD Exacerbation - worsening symptoms x5-6 days w/o clear trigger, stable chronic CXR findings w/o PNA - started on Duonebs scheduled and PRN - continue - started on Azithro/Doxy - will d/c Doxy today as does not appear to be PNA - continue Solu-Medrol 40mg IV Q8H - plan to wean as tolerated - continue home inhalers: Umeclidinium-Vilanterol and Pulmicort Pleuritic Chest Pain - associated with COPD exac. sxs, EKG/Troponin negative per ACS r/o, suspect 08/04 COPD - OMT for somatic rib/thoracic dysfunction performed by Dr. Cerda - trend clinically for improvement Anxiety and Depression - continue buspirone, lorazepam, sertraline and trazodone FEN/GI: Regular DVT Prophylaxis: Heparin 5000u SQ Q12H Code Status: Full code Disposition: med/surg with tele (2) COPD (chronic obstructive pulmonary disease): (3) Tobacco use disorder: (4) Sarcoidosis: (5) Postinflammatory pulmonary fibrosis: (6) Chronic respiratory failure: (7) Anxiety and depression: Admission and Anticipated Discharge Date Admission Date: August 04, 2020 Supervising Physician Co-Signing Physician Notes I personally examined the patient and verified all patel points of history and exam, discussed case, and agree with decision making with Dr Gasca. feeling a little better than before - still easily sob, cough. chest pain is worse w deep breath or movement, and radiates to back. vitals noted nad heent nc at mmm breathing unlabored no accessory muscles good effort diminished breath sounds throughout faint scattered wheeze and rhonchi L>R Tspine parapinals high tone/decreased ROM and ribs stuck in inhalation - direct myofascial//balanced ligamentous tension - improved tissue texture some, pt tolerated well. COPD exacerbation - continue steroids, nebs, O2, zithromax. no need for rocephin since no consolidation. chest pain - appears clinically to have all been COPD related/pleuritic/rib re lated. troponins still trending, but even if mildly positive, would be reflective of demand of COPD exacerbation not of MA somatic dysfunction rib/thoracic - OMT as above DVT proph - heparin SQ Subjective No acute events overnight. Reports 5-6 days of worsening shortness of breath, cough, increased sputum production and pleuritic chest pain requiring Albuterol nebs several times per day. Reports improvement in all symptoms since being started on steroids, duo nebs and abx in the hospital. Denies fever/chills, palpitations, wheezing, N/V, abdominal pain. Review of Systems Review of Systems: Pertinent positives and negatives mentioned in HPI Physical Exam Physical Exam: General: A&Ox3. NAD. Cooperative. HEENT: Atraumatic, normocephalic. Pulm: Mildly decreased air entry bilaterally. -wheezes, -rales, -rhonchi. Symmetrical chest rise. No increase work of breathing. No respiratory distress. Cardiac: RRR, -mrg. Radial pulses intact and symmetrical. Abdominal: soft, non-tender, non-distended, BS x 4 Results & Data Results & Data ([facility]) Vital Signs (Past 12 Hours) Vital Signs Temp Pulse Pulse Pulse Resp BP BP 08/05/20 03:17 36.8 C 81 18 08/04/20 22:00 36.7 C 90 24 166/76 H 08/04/20 21:40 90 08/04/20 21:30 87 14 102/77 08/04/20 21:20 88 19 08/04/20 21:10 90 21 08/04/20 21:00 88 18 106/71 08/04/20 20:50 89 08/04/20 20:40 90 20 08/04/20 20:31 92 H 19 08/04/20 20:30 91 H 19 08/04/20 20:20 90 23 08/04/20 20:10 87 21 08/04/20 20:05 18 08/04/20 20:00 88 15 110/71 08/04/20 19:50 88 20 08/04/20 19:44 87 110/69 08/04/20 19:40 88 08/04/20 19:30 89 21 08/04/20 19:20 90 08/04/20 19:10 90 22 BP Pulse Ox 08/05/20 03:17 95/61 L 98 08/04/20 22:00 93 08/04/20 21:40 94 08/04/20 21:30 96 08/04/20 21:20 97 08/04/20 21:10 97 08/04/20 21:00 97 08/04/20 20:50 97 08/04/20 20:40 97 08/04/20 20:31 97 08/04/20 20:30 97 08/04/20 20:20 95 08/04/20 20:10 97 08/04/20 20:05 95 08/04/20 20:00 97 08/04/20 19:50 97 08/04/20 19:44 97 08/04/20 19:40 97 08/04/20 19:30 97 08/04/20 19:20 97 08/04/20 19:10 97 Resident Activity Tracking Resident Involvement: Resident Care Provided Care Provided: Adult Hospital Medicine
[2020-08-05] MEDS: ALBUT/IPRATROP 3MG/0.5MG NEB 3 ML VIAL NEB SCH ×4 (07:29→19:13)
[2020-08-05] MEDS: BUDESONIDE 0.5 MG/2 ML VIAL (PULMICORT) NEB SCH ×2 (07:29→19:13)
[2020-08-05] MEDS: HEPARIN SOD 5,000 UNIT/0.5 ML VIAL SQ SCH ×2 (08:26→20:29)
[2020-08-05] MEDS: SERTRALINE HCL 100 MG TABLET PO SCH (08:26)
[2020-08-05] MEDS: UMECLIDINIUM/VILANTEROL 62.5/25MCG 7 PUFFS/INHALER INH SCH (08:27)
[2020-08-05] MEDS ORDERED: FLUTICASONE FUROATE 100MCG 14 PUFFS/INHALER INH SCH (11:00)
[2020-08-05] MEDS: busPIRone 5 MG TAB PO SCH ×2 (11:43→20:27)
[2020-08-05] MEDS: CYCLOBENZAPRINE HCL 10 MG TAB PO PRN (15:18)
--- NOTE | 2020-08-05 15:55 | Electrocardiogram Report ---
Test Reason : Blood Pressure : / mmHG Vent. Rate : 089 BPM Atrial Rate : 089 BPM P-R Int : 126 ms QRS Dur : 082 ms QT Int : 372 ms P-R-T Axes : 070 088 071 degrees QTc Int : 452 ms Poor data quality, interpretation may be adversely affected Normal sinus rhythm Normal ECG When compared with ECG of 30-MAY-2019 09:16, Nonspecific T wave abnormality no longer evident in Inferior leads T wave inversion no longer evident in Anterior leads Confirmed by Alan Stoddard ([id number]) on 08/05/2020 3:55:14 PM Referred By: REFERRED SELF Confirmed By:Alan Stoddard
[2020-08-05] MEDS: DICLOFENAC SOD 1% GEL 100 GM TUBE EXT SCH ×2 (16:26→20:30)
--- NOTE | 2020-08-05 16:35 | Billing Data ---
Date of Service August 05, 2020 Coding Level of Care Code 28567 Subseq Hosp Care Lvl 3
--- NOTE | 2020-08-05 16:35 | Hospitalist Progress Note ---
Date of Service August 05, 2020 Assessment & Plan Admission and Anticipated Discharge Date Admission Date: August 04, 2020 Results & Data Results & Data ([facility]) Vital Signs (Past 12 Hours) Vital Signs Temp Pulse Pulse Resp BP Pulse Ox 08/05/20 15:25 81 18 98 08/05/20 15:07 98.2 F 102 H 20 109/62 92 08/05/20 14:21 91 H 08/05/20 11:42 98.4 F 89 18 103/67 98 08/05/20 11:16 89 16 96 08/05/20 07:45 97.9 F 16 104/70 97 08/05/20 07:33 99 H 16 98 08/05/20 07:23 78 PG Care Time/CCT Total # of Minutes Spent Total Time Spent with Patient: Total time spent is greater than 50% in coordination of care (as documented) at patient's floor/unit and/or counseling patient: Coding Level of Care Code None CPT Codes Musculoskeletal - Musculoskeletal: [address] 1-2 Body regions ([id number])
[2020-08-05] MEDS: MoRPHine SULFATE 4 MG/ML 1 ML CARP\\VIAL IV PRN (17:16)
[2020-08-05] MEDS: traZODone HCL 50 MG TAB PO SCH (20:29)
[2020-08-05] MEDS: LORazepam 1 MG TAB PO PRN (20:31)
[2020-08-05] MEDS: AZITHROMYCIN 500 MG in DEXTROSE 5% 250 ML IV SCH (23:49)
[2020-08-06] MEDS: methylPREDNISolone 40 MG in SYRINGE 0 ML IV SCH ×2 (03:25→12:46)
[2020-08-06 07:09] LABS: Hemoglobin 14.5 g/dL (12.0-16.0); Immature Granulocytes # (auto) 0.04 K/uL (0.00-0.02); Immature Granulocytes % (auto) 0.4 %; Lymphocytes # (auto) 0.72 K/uL (1.2-3.4); Lymphocytes % (auto) 6.6 %; Mean Corpuscular Hemoglobin 31.3 pg (25-34); Monocytes # (auto) 0.21 K/uL (0.11-0.59); Monocytes % (auto) 1.9 %; Neutrophils # (auto) 9.91 K/uL (1.4-6.5); Neutrophils % (auto) 91.1 %; Platelet Count 160 K/uL (130-400); RDW Coefficient of Variation 14.8 % (11.5-14.5); RDW Standard Deviation 51.5 fL (36.4-46.3); Red Blood Count 4.63 M/uL (4.2-5.4); White Blood Count 10.88 K/uL (4.8-10.8)
[2020-08-06] MEDS: BUDESONIDE 0.5 MG/2 ML VIAL (PULMICORT) NEB SCH (07:18)
[2020-08-06] MEDS: ALBUT/IPRATROP 3MG/0.5MG NEB 3 ML VIAL NEB SCH ×2 (07:18→11:22)
[2020-08-06 07:37] LABS: BUN Creatinine Ratio 24.9 (10-20); Calcium 9.3 mg/dl (8.5-10.1); Creatinine Clr Calc Pharmacy 50.3 ml/min; Est GFR (African American) 61.7; Est GFR (Non-African American) 53.2; Potassium 4.4 mmol/L (3.5-5.1)
[2020-08-06] MEDS: UMECLIDINIUM/VILANTEROL 62.5/25MCG 7 PUFFS/INHALER INH SCH (08:02)
[2020-08-06] MEDS: busPIRone 5 MG TAB PO SCH (08:03)
[2020-08-06] MEDS: SERTRALINE HCL 100 MG TABLET PO SCH (08:03)
[2020-08-06] MEDS: DICLOFENAC SOD 1% GEL 100 GM TUBE EXT SCH ×2 (08:04→12:47)
[2020-08-06] MEDS: HEPARIN SOD 5,000 UNIT/0.5 ML VIAL SQ SCH (08:04)
[2020-08-06] MEDS: CYCLOBENZAPRINE HCL 10 MG TAB PO PRN (08:08)
--- NOTE | 2020-08-06 10:42 | Discharge Summary ---
Date of Service August 06, 2020 Admission HPI Per Admitting Provider The patient is a 64-year-old female with a past medical history including osteoporosis, left shoulder osteoarthritis, right shoulder replacement, COPD, anxiety depression, tobacco use disorder, sarcoidosis, postinflammatory pulmonary fibrosis, fecal incontinence, chronic respiratory failure, and COPD. She developed acute onset of substernal chest discomfort and wheezing earlier in the day today. She denies any fever or chills or productive cough. Admission Exam Per Admitting Provider The patient is awake, alert and oriented 3, well developed and well nourished, normocephalic and atraumatic, lying in bed and in no acute distress. HEENT--PERRL, EOMI, mucous membranes and oropharynx normal. Neck--supple. No JVD. No bruits. Thyroid normal, trachea midline, no adenopathy. Heart--normal S1 and S2. No murmurs, rubs or gallops. Lungs--few wheezes bilaterally. No respiratory distress, no accessory muscle use. Abdomen--normal bowel sounds and soft. Nontender. Nondistended, no hernias or masses, no organomegaly. Extremities--no cyanosis or clubbing. No edema. Dermatologic--normal skin turgor, normal color, no abnormal lymph nodes, no rash. Neurologic--cranial nerves II through XII grossly intact. Rheumatologic--normal range of motion. Psychiatric--normal affect. Principal Diagnosis COPD Exacerbation Discharge Exam General: A&Ox3. NAD. Cooperative. HEENT: Atraumatic, normocephalic. Pulm: Adequate air entry bilaterally. +faint end-expiratory wheezes, -rales, - rhonchi. Symmetrical chest rise. No increase work of breathing. No respiratory distress. Cardiac: RRR, -mrg. Radial pulses intact and symmetrical. Abdominal: soft, non-tender, non-distended, BS x 4 Discharge Data Allergies Allergy/AdvReac Type Severity Reaction Status Date / Time No Known Allergies Allergy Verified 08/04/20 19:25 Consultations 08/04/20 19:57 ED Decision to Admit Stat 08/04/20 22:49 Consult Case Management - Discharge Planning Routine Hospital Course (1) Chest pain: Karine Ruiz is a 64 yo female with h/o COPD (on 2L NC on exertion, Prednisone 10mg PO daily at home), Sarcoidosis (confirmed with biopsy), post- inflammatory pulmonary fibrosis, and current tobacco abuse (30 pack year hx) who was admitted to [facility] on 08/04/2020 for COPD exacerbation. COPD Exacerbation - worsening symptoms x5-6 days w/o clear trigger, stable chronic CXR findings w/o PNA - improved on Duonebs while hospitalized - continue Umeclidinium-Vilanterol and Pulmicort on discharge - started on Azithro/Doxy --> Azithro IV - continue Azithromycin 250 mg PO x3 days after discharge - improved on Solu-Medrol 40mg IV Q8H - Prednisone taper after discharge x6 days (60mg x2 days, 40mg x2 days, 20mg x2 days) - continue PRN Albuterol Pleuritic Rib Pain - associated with COPD exacerbation sxs, EKG/Troponin negative per ACS r/o, suspect intercostal muscle spasm/strain / COPD - OMT for somatic rib/thoracic dysfunction performed by Dr. Cerda - scheduled for f/u with Dr. Dickinson for further OMT - scheduled daily Tylenol and Voltaren TID-QID x1-2 weeks after discharge Anxiety and Depression - continue buspirone, lorazepam, sertraline and trazodone (2) COPD (chronic obstructive pulmonary disease): (3) Tobacco use disorder: (4) Sarcoidosis: (5) Postinflammatory pulmonary fibrosis: (6) Chronic respiratory failure: (7) Anxiety and depression: Total Time Total Time Spent Total Time Spent (In Minutes): <30 minutes Total Time Includes: Examination of the Patient, Discharge Planning and Medication Reconciliation Discharge Plan Discharge Items Patient Disposition: Home - Self-Care Reason For Visit: COPD EXACERBATION Discharge Diagnosis: COPD Exacerbation Activity: Per Instructions section Non-emergency contact: Primary Care Provider and Car Sales Representative Call non-emergency contact if: you have any medication questions, your symptoms worsen, your pain is not controlled and you have a fever Follow-up/Referrals: Nichole Antunez CRNP [Primary Care Provider] - 08/11/20 9:30 am (You have an appt with Nichole on 08/11 @ [id number]. Please arrive 15 minutes prior to your appt. It is important that you keep this appt, if for any reason you can't make this appt please call [phone] to reschedule. ) aMynor Dickinson, DO [Physician] - 08/10/20 10:00 am (We scheduled an appt with Dr. Jeffrey Dickinson for OMT (Osteopathic Manipulative Treatment), on Thursday 08/10 at 10am. Please arrive 15 minutes prior to your appt time. It is important that you keep this appt, if for any reason this appt time does not fit your schedule, please call [phone] to reshedule. This appt is at the [address] office. [address] [place] [address] [place] [address]) Diet: Regular Addtl Attending Provider Instructions: You were admitted to [facility] on 08/04/2020 for a COPD exace rbation. You were started on IV steroids, nebulizers and an antibiotic called Azithromycin which all help to improve the wheezing and shortness of breath associated with a COPD exacerbation. You were also continued an supplemental oxygen at 2-3 L/min. You did well on these medications and treatments and you were able to keep your oxygen saturation normal without supplemental oxygen. You also came in with chest pain, which was determined to be due to a muscle spasm in your ribs. This can often happen along with a COPD exacerbation. You can take Tylenol as needed for this rib pain, and you can apply Voltaren gel to your ribs 3-4 times per day as well (this will be sent to your pharmacy). I expect your rib pain to improve within the next week, but you should follow-up closely with your PCP to monitor for improvement in this pain. Additionally, you should establish with Dr. Jeffrey Dickinson at [facility], who specializes in OMT and can help you with you rib pain. You will be discharged on 08/06/2020 in good, stable condition. You should continue to take Azithromycin (antibiotic) once per day, starting today, for the next 3 days. You should also start to use a new nebulizer called Pulmicort twice per day. You should also continue to take an oral steroid called Prednisone, starting tomorrow: 3 pills for 2 days, 2 pills for 2 days, 1 pill for 2 days. Thereafter, you should continue taking your regular dose of Prednisone 10 mg daily. You should continue to take all of your other medications and inhalers as scheduled. I hope you feel better, and it was a pleasure to help provide your care while you were hospitalized. Pending Studies at Discharge: No Stand-Alone Forms: [facility], Smoking Cessation Medications and DC Order Prescriptions: New budesonide [Pulmicort] 1 mg/2 mL suspension for nebulization 0.5 mg inhalation BID Qty: 60 RF: 4 diclofenac sodium [Voltaren] 1 % gel 4 g topical QID Qty: 150 RF: 3 prednisone 20 mg tablet 20 mg PO DAILY Qty: 14 RF: 0 azithromycin 250 mg tablet 250 mg PO DAILY 3 Days Qty: 3 RF: 0 Continued albuterol sulfate [Ventolin HFA] 90 mcg/actuation HFA aerosol inhaler 2 puff inhalation QID PRN (Reason: Shortness Of Breath Or Wheezing) Qty: 18 RF: 11 albuterol sulfate 2.5 mg /3 mL (0.083 %) solution for nebulization 2.5 mg INHALATION QID PRN (Reason: Shortness Of Breath Or Wheezing) Qty: 90 RF: 5 sertraline 100 mg tablet 200 mg PO QAM Qty: 60 RF: 5 Anoro Ellipta 62.5-25 mcg/actuation blister with device 1 inh inhalation QAM Qty: 60 RF: 5 buspirone 10 mg tablet 10 mg PO BID Qty: 60 RF: 11 lorazepam 1 mg tablet 1 mg PO DAILY PRN (Reason: Anxiety) Qty: 30 RF: 3 meloxicam 7.5 mg tablet 15 mg PO DAILY Qty: 30 RF: 5 prednisone 10 mg tablet See Rx Instructions PO DAILY Qty: 36 RF: 0 cyclobenzaprine 10 mg tablet 10 mg PO TID PRN (Reason: Muscle Spasm) Qty: 60 RF: 0 acetaminophen [Tylenol Extra Strength] 500 mg tablet 1,000 mg PO Q8H PRN (Reason: Pain) RF: 0 No Action trazodone 50 mg tablet 50 mg PO HS Qty: 30 RF: 2 Discharge Orders: Discharge Order (Routine); Ordered 08/06/20 Ordered By: Toni Gasca Admission Data Admit Date/Time: 08/04/20 21:12 Attending Provider: Lucas Cerda Admit Provider: Basilio Cary Primary Care Provider: Nichole Antunez Other Providers: Basilio Cary Other Interventions: Discharge Summary Assessment (RN) Last Done: 08/06/20 13:50 Supervising Physician Co-Signing Physician Notes I personally examined the patient and verified all patel points of history and ex am, discussed case, and agree with decision making with Dr Gasca. Breathing feels better. Ongoing chest pain. Notes actually this been going on for months, it is just that its been recent that it radiated to the back. Mostly it is lower sternal and upper abdominal, now radiating through to the back. Worse with different positions. Vitals noted, in general she is awake and alert very anxious but otherwise no distress. HEENT normocephalic atraumatic mucous membranes moist. Breathing unlabored no accessory muscle use good effort lungs show no rales rhonchi or wheezes, reasonable air entryslightly improved compared to yesterday. Ongoing rib somatic dysfunction. COPD exacerbation -stable for discharge homefinish out course of steroids, finished Zithromax. Fortunately she has progressed to where she actually does not need home oxygen other than her prior requirement with exertion. chest pain -acutely related to her COPD exacerbation and air trapping, nothing appears cardiac. However chronically it also appears to be rib dysfunction that likely heavily relates to her COPD. We discussed this extensivelyI suspect she would benefit from routine treatment with Voltaren gel, as well as a referral to Dr. Dickinson for OMT. somatic dysfunction rib/thoracic -referral for outpatient OMT DVT proph - heparin SQ Resident Activity Tracking Resident Involvement: Resident Care Provided Care Provided: Adult [facility]
[2020-08-06] MEDS: MoRPHine SULFATE 4 MG/ML 1 ML CARP\\VIAL IV PRN (13:35)
--- NOTE | 2020-08-06 17:46 | Billing Data ---
Date of Service August 06, 2020 Coding Level of Care Code D/C Day Management <30 mins
== END 2020-08-06 14:35 | disposition home or self-care (01) | DRG 191 ==
LOC: ED 18:22 → SUATTDRO 21:12 → 2N 21:12

== ENCOUNTER 2020-10-09 09:15 | Inpatient (IN) ==
[2020-10-09] MEDS ORDERED: ALBUT/IPRATROP 3MG/0.5MG NEB 3 ML VIAL NEB STA ×3 (09:48→11:52)
[2020-10-09 09:59] LABS: Basophils # (auto) 0.08 K/uL (0-0.2); Eosinophils # (auto) 0.42 K/uL (0-0.5); Hemoglobin 17.2 g/dL (12.0-16.0); Immature Granulocytes # (auto) 0.04 K/uL (0.00-0.02); Immature Granulocytes % (auto) 0.5 %; Lymphocytes # (auto) 1.76 K/uL (1.2-3.4); Mean Corpuscular Hemoglobin 32.1 pg (25-34); Mean Corpuscular Hgb Conc 34.4 g/dL (32-36); Mean Corpuscular Volume 93.5 fL (80-100); Mean Platelet Volume 10.5 fL (7.4-10.4); Monocytes # (auto) 0.71 K/uL (0.11-0.59); Monocytes % (auto) 8.5 %; Neutrophils # (auto) 5.37 K/uL (1.4-6.5); Platelet Count 226 K/uL (130-400); RDW Coefficient of Variation 14.3 % (11.5-14.5); RDW Standard Deviation 48.4 fL (36.4-46.3); Red Blood Count 5.35 M/uL (4.2-5.4); White Blood Count 8.38 K/uL (4.8-10.8)
--- NOTE | 2020-10-09 10:11 | XRay Report ---
XR chest 1V portable HISTORY: Shortness of breath. COMPARISON: Chest 08/21/2020. FINDINGS: No pneumothorax. No pleural effusions. The heart is normal in size. Emphysema and scattered scarring/fibrotic change persists. No new focal lung consolidations to suggest pneumonia. No evidenc e for pulmonary edema. Bilateral hilar calcifications remain unchanged. Old, healed right-sided rib f ractures. There are postoperative changes within the right shoulder. IMPRESSION: No significant change compared to the prior study. No acute process. ACT 112: Negative or not required by law. Electronically signed by: Zack Dixon M.D. 10/09/2020 10:10 AM
[2020-10-09 10:12] LABS: BUN Creatinine Ratio 11.3 (10-20); Blood Urea Nitrogen 11 mg/dl (7-18); Calcium 9.5 mg/dl (8.5-10.1); Carbon Dioxide 34 mmol/L (21-32); Chloride 101 mmol/L (98-107); Creatinine Clr Calc Pharmacy 55.1 ml/min; Est GFR (African American) 69.7; Est GFR (Non-African American) 60.1; Glucose 113 mg/dl (70-99); Potassium 4.1 mmol/L (3.5-5.1); Sodium 138 mmol/L (136-145)
[2020-10-09 10:13] LABS: Partial Thromboplastin Time 25.9 Seconds (21.0-31.0); Prothrombin Time 10.2 Seconds (9.0-12.0)
[2020-10-09 10:17] LABS: NT Pro B Type Natriuretic Pept 297 pg/ml (0-900); Troponin I < 0.015 ng/ml (0-0.045)
[2020-10-09 10:22] LABS: Base Excess VBG 5.7 mEq/L; Oxygen Saturation VBG 66.8 %; pH VBG 7.37 (7.36-7.41)
[2020-10-09 10:50] LABS: Influenza A virus by PCR Negative (Neg); Influenza B virus by PCR Negative (Neg); RSV by PCR Negative (Neg); SARS CoV2 RNA(COVID-19) InHosp NEGATIVE (Negative)
[2020-10-09] MEDS ORDERED: AZITHROMYCIN 250 MG TAB PO ONE (12:08)
--- NOTE | 2020-10-09 12:28 | History & Physical Report ---
Date of Service October 09, 2020 Assessment & Plan (1) COPD (chronic obstructive pulmonary disease): Acute on chronic COPD exacerbation without respiratory failure. GOLD 2A - ABG - 7.45, 45, 66, 31. on 2lNC- Ventilation improved- Mild metabolic alkalosis- likely contractile as also evident by her hemoconcentrated HGB/HCT levels. - Patient with increased use of inhalers, increase cough and sputum, increased oxygen use - Will increase oral prednisone to 40mg po daily - Schedule albuterol inhalers q6 - DuoNeb q3 prn - Continue umeclidinium/Vilanterol daily - Continue Flovent - Azithromycin 500mg x1 and then 250mg x 5 days - Oxygen 2-4 L NC SPO2 goal 88-92%; Patient on her regular 2LNC with SPO2 92-94% on my evaluation. - HFNC for breathlessness may be an option, patient has never had CPAP/BiPAP and does not think she would tolerate it. - PFT's from 09/30/20- FEV1/FVC 53%, DLCO 41%, FEV1 37. Noted reduction in FEV1 and FVC Patient was on Augmentin that finished yesterday. Patient does not remember taking this or why she was on it. - Patient recently seen pulmonary on , and no reference in the not for medication addition or change. 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 (5) Low back pain: As above (6) Pulmonary embolism: Chronic- Patient unable to recall if she took her Xeralto yesterday. Dose given now SCD's and Xeralto for VTE prophy (7) Osteoporosis: Patient was to start alendronate as outpatient, has not done so secondary to making her nauseated (8) Cor pulmonale: ECHO -09/30/20- Normal LV function, Mild LVH, Moderate RV systolic dysfunction, Moderate RA dilation, Trace MR - EF 60-65% diastolic dysfunction type I History of Present Illness Chief Complaint: shortness of breath Primary Care Provider: Nichole Antunez, CLAY 65 YOF with past medical history of COPD, Active smoker (15/day), Pulmonary embolism (08/23), Sarcoidosis with VATS (granulomatous pneumonitis), chest wall pain, osteopetrosis, chronic sinusitis, DJD. Patient comes to the hospital for increase dyspnea for the past 2-3 days with no relief on her home therapy of nebulizers and inhalers and home oxygen. Patient reports not being able to sleep last night secondary to her dyspnea and she sat in the chair all night. Called EMS this morning to bring her to the hospital. Reportedly wheezing and hypoxic and was given steroids in route. Hospitalist service was consulted for admission following a VBG, CXR, ECG, and 2 back to back Duonebs in the [facility]. Patient is on albuterol inhalers, umeclidinium/vilanterol, Flovent inhaler for her COPD; and 10mg prednisone daily for her sarcoid and PRN nebulizers at home. She normally uses her nebulizers 1-2 x per week and has used them 2-3 times per day for past 2 days. She has also increased breathlessness walking around her house and unable to go up her stairs currently. Patient also can not recall that she took her Xeralto yesterday and reports decrease oral intake of food and water from being tired. She appears fatigued. I will get an ABG to evaluate her hypoxia; her VBG is consistent with chronic compensation. She is improved since she came in, will give her a DUO neb, admit her to med/tele and follow her breathlessness and hypoxia for a COPD exacerbation. Allergies Allergy/AdvReac Type Severity Reaction Status Date / Time No Known Allergies Allergy Verified 10/09/20 10:44 Home Medications Medication Instructions Recorded Confirmed Type albuterol sulfate 90 mcg/actuation 2 puff INHALATION QID PRN #18 gm 02/17/20 10/13/20 Rx aerosol inhaler albuterol sulfate 2.5 mg INHALATION QID PRN #90 ml 02/19/20 10/13/20 Rx sertraline 100 mg tablet 200 mg PO QAM #60 tab 02/19/20 10/13/20 Rx buspirone 10 mg tablet 10 mg PO BID #60 tab 03/20/20 10/13/20 Rx meloxicam 7.5 mg tablet 15 mg PO DAILY #30 tab 06/15/20 10/13/20 Rx diclofenac sodium [Voltaren] 4 g TOPICAL QID #150 g 08/06/20 10/13/20 Rx trazodone 50 mg tablet 50 mg PO HS #30 tab 08/06/20 10/13/20 Rx pantoprazole 40 mg tablet,delayed 40 mg PO DAILY #30 tab 08/17/20 10/13/20 Rx release cyclobenzaprine 10 mg tablet 10 mg PO TID PRN #60 tab 08/19/20 10/13/20 Rx rivaroxaban 20 mg tablet 20 mg PO DAILY #90 tab 09/07/20 10/13/20 Rx umeclidinium 62.5 mcg-vilanterol 1 inh INHALATION QAM #60 ea 09/09/20 10/13/20 Rx 25 mcg/actuation powdr for inhalation fluticasone propionate 110 2 puff INHALATION BID #12 g 09/30/20 10/13/20 Rx mcg/actuation HFA aerosol inhaler tramadol 100 mg tablet 100 mg PO TID PRN #30 tab 10/02/20 10/13/20 Rx nicotine (polacrilex) 0 mg BUCCAL Q4H PRN 10/09/20 10/13/20 History lorazepam 1 mg tablet 1 mg PO DAILY PRN #30 tab 10/12/20 10/13/20 Rx prednisone 40 mg PO UD #19 tab 10/12/20 10/13/20 Rx Past Med/Surg History Medical History Acute and chronic respiratory failure with hypoxia Anxiety Anxiety and depression COPD (chronic obstructive pulmonary disease) + rare O2 PRN (no use x 1 year) COPD exacerbation Depression Pulmonary embolism Sarcoidosis stable Surgical History H/O arthroplasty H/O hysterectomy for benign disease (10/02/12) History of hip replacement Left PREETI: 09/11/17: SAB x 1 at L3-L4 at [facility] History of right shoulder replacement Hx of colonoscopy Hx of elbow surgery RIGHT Family History Father Myocardial infarction Brother Anxiety COPD (chronic obstructive pulmonary disease) Daughter Anxiety Sister Breast cancer Other Diabetes Kidney disease Denies family history of Ovarian cancer Prostate cancer Colorectal cancer Social History Smoking Status: Current every day smoker Tobacco Type: Cigarettes Cigarettes Per Day: 20; Second Hand Exposure: No; Hx Alcohol Use: No Hx Substance Use: No Preferred Language: Amharic Communication Ability: Effective Visual Impairment: No Limitations Rehabilitation Aide/Scheduler Required: No Beliefs That Will Affect Care: None marital status: Current Living Situation: Spouse Feels Safe at Home: Yes Assistive Devices: Oxygen - Continuous Review of Systems Review of Systems: REVIEW OF SYSTEMS: Constitutional: No fever, sweats or chills Eyes: No diplopia, no worsening or blurred vision ENT: normal hearing, no trouble swallowing Respiratory: (+) cough, increased sputum, dyspnea at rest or on exertion, increase home oxygen Cardiovascular: No cardiac chest pain, tightness or palpitations Abdomen: No pain, nausea, vomiting, diarrhea or constipation Musculoskeletal: (+) pain to lower rib cage, shoulders and back, (-) calf pain, swelling Neurologic: No weakness, numbness/tingling, or balance problems Psychiatric: (+) anxiety, difficulty sleeping, (-) depression Skin: No rash or itch Physical Exam Physical Exam: PHYSICAL EXAM: General: awake, alert, ftigued appearing Head: Normocephalic, atraumatic ENT: PERRL, EOMI, no pharyngeal exudate, mucous membranes moist Neuro: AAO x 3, speech clear and appropriate, strength intact bilaterally 5/5, sensation intact and equal all extremities and dermatomes, no pronator drift Chest: equal rise and fall of the chest, prolonged expiratory phase with inspiratory and expiratory wheezing, no heaves or thrills, on 2LNC, orthopnea, t achypnic Cardiac: Regular rate and rhythm, mild tachycardia, telemetry reviewed, skin warm dry, cap refill <3 seconds, peripheral pulses +2 no JVD, no murmur, trace lower extremity edema, no perhiperal or central cyanosis GI: NABS x 4 quadrants, soft, nontender to palpation, no rebound, guarding or tenderness : Spontaneously voiding, no pain, no CVA tenderness, Extremities: Normal inspection, no peripheral edema or erythema, calfs nontender to palpation Psych: Normal mood and affect Skin: no rash or erythema Results & Data Results & Data ([facility]) Vital Signs (Past 12 Hours) Vital Signs Temp Pulse Pulse Resp BP Pulse Ox 10/09/20 11:00 103 H 19 105/75 92 10/09/20 10:41 101 H 20 92 10/09/20 10:40 100 H 17 113/74 92 10/09/20 10:16 96 H 20 92 10/09/20 10:00 96 H 23 92 10/09/20 09:53 93 10/09/20 09:30 96 H 20 91 10/09/20 09:29 90 10/09/20 09:26 98 H 27 H 91 10/09/20 09:22 36.8 C 98 H 17 96/74 L 92 Laboratory Results Abnormal lab results 10/09/20 10/09/20 10/09/20 Range/Units 08:20 08:20 09:58 Hgb 17.2 H (12.0-16.0) g/dL Hct 50.0 H (37-47) % RDW Std Deviation 48.4 H (36.4-46.3) fL MPV 10.5 H (7.4-10.4) fL Mathews # (Auto) 0.71 H (0.11-0.59) K/uL Immature Gran # (Auto) 0.04 H (0.00-0.02) K/uL VBG pCO2 59 H (38-50) mmHg Carbon Dioxide 34 H (21-32) mmol/L Glucose 113 H (70-99) mg/dl Diagnostic Findings XR chest 1V portable HISTORY: Shortness of breath. COMPARISON: Chest 08/21/2020. FINDINGS: No pneumothorax. No pleural effusions. The heart is normal in size. Emphysema and scattered scarring/fibrotic change persists. No new focal lung consolidations to suggest pneumonia. No evidence for pulmonary edema. Bilateral hilar calcifications remain unchanged. Old, healed right-sided rib fractures. There are postoperative changes within the right shoulder. IMPRESSION: No significant change compared to the prior study. No acute process. Medications Administered Home Medications albuterol sulfate 90 mcg/actuation aerosol inhaler 2 puff INHALATION QID PRN #18 gm 02/17/20 [Rx Confirmed 10/09/20] albuterol sulfate 2.5 mg INHALATION QID PRN #90 ml 02/19/20 [Rx Confirmed 10/09/20] sertraline 100 mg tablet 200 mg PO QAM #60 tab 02/19/20 [Rx Confirmed 10/09/20] buspirone 10 mg tablet 10 mg PO BID #60 tab 03/20/20 [Rx Confirmed 10/09/20] lorazepam 1 mg tablet 1 mg PO DAILY PRN #30 tab 06/15/20 [Rx Confirmed 10/09/20] meloxicam 7.5 mg tablet 15 mg PO DAILY #30 tab 06/15/20 [Rx Confirmed 10/09/20] diclofenac sodium [Voltaren] 4 g TOPICAL QID #150 g 08/06/20 [Rx Confirmed 10/09] trazodone 50 mg tablet 50 mg PO HS #30 tab 08/06/20 [Rx Confirmed 10/09/20] pantoprazole 40 mg tablet,delayed release 40 mg PO DAILY #30 tab 08/17/20 [Rx Confirmed 10/09/20] cyclobenzaprine 10 mg tablet 10 mg PO TID PRN #60 tab 08/19/20 [Rx Confirmed 10/09/20] rivaroxaban 20 mg tablet 20 mg PO DAILY #90 tab 09/07/20 [Rx Confirmed 10/09/20] umeclidinium 62.5 mcg-vilanterol 25 mcg/actuation powdr for inhalation 1 inh INHALATION QAM #60 ea 09/09/20 [Rx Confirmed 10/09/20] fluticasone propionate 110 mcg/actuation HFA aerosol inhaler 2 puff INHALATION BID #12 g 09/30/20 [Rx Confirmed 10/09/20] tramadol 100 mg tablet 100 mg PO TID PRN #30 tab 10/02/20 [Rx Confirmed 10/09/20] amoxicillin 875 mg-potassium clavulanate 125 mg tablet 1 tab PO Q12H #20 tab 10/05/20 [Rx Confirmed 10/09/20] prednisone 10 mg tablet See Rx Instructions PO DAILY #36 tab 10/05/20 [Rx Confirmed 10/09/20] nicotine (polacrilex) 0 mg BUCCAL Q4H PRN 10/09/20 [History Confirmed 10/09/20] Active Medications Prednisone (Prednisone 20 Mg Tab) 40 mg PO DAILY HEATHER Stop: 11/08/20 12:14 Last Admin: 10/09/20 12:30 Dose: 40 mg Documented by: Rivaroxaban (Rivaroxaban 20 Mg Tab) 20 mg PO DAILY HEATHER Stop: 11/08/20 12:06 Prednisone (Prednisone 20 Mg Tab) 40 mg PO DAILY HEATHER Stop: 11/08/20 12:14 Last Admin: 10/09/20 12:30 Dose: 40 mg Documented by: [id number] Discontinued Medications Albuterol (Albut/Ipratrop 3mg/0.5mg Neb 3 Ml Vial) 3 ml NEB NOW STA Stop: 10/09/20 09:49 Last Admin: 10/09/20 10:15 Dose: 3 ml Documented by: [id number] Albuterol (Albut/Ipratrop 3mg/0.5mg Neb 3 Ml Vial) 3 ml NEB NOW STA Stop: 10/09/20 09:51 Last Admin: 10/09/20 10:15 Dose: 3 ml Documented by: [id number] Albuterol (Albut/Ipratrop 3mg/0.5mg Neb 3 Ml Vial) 3 ml NEB NOW STA Stop: 10/09/20 11:53 Last Admin: 10/09/20 12:15 Dose: 3 ml Documented by: [id number] Azithromycin (Azithromycin 250 Mg Tab) 500 mg PO NOW ONE Stop: 10/09/20 12:09 Last Admin: 10/09/20 12:30 Dose: 500 mg Documented by: [id number] ECG Additional Comments: Normal sinus rhythm Possible Left atrial enlargement Left posterior fascicular block Nonspecific T wave abnormality Abnormal ECG Supervising Physician Co-Signing Physician Notes Attending Attestation - Pt seen/examined, chart reviewed, care plan d/w CLAY Pérez. I agree w/ the patel components of his documentation except - patient with acute/chronic hypoxic resp failure. 65yo female with chronic hypoxic resp failure on home o2, COPD, sarcoid, chronic cor pulmonale - presenting with COPD (and/or sarcoid) exacerbation. CT chest with findings c/w sarcoid and unchanged overall since 08/2020. She is on chronic prednisone 10mg/day at home. PMH, PSH, allergies, meds, sochx, famhx - reviewed VSS, afebrile gen - NAD neck - mild JVD heart - RRR, s1, s2, 1/6 GUEVARA LSB lungs - fine rales bases, occasional wheeze abd - soft NT ext - no edema A/P: 1. acute/chronic hypoxic resp failure 2. COPD with exacerbation 3. sarcoidosis - active (suspected) 4. chronic cor pulmonale (chronic right sided CHF) 5. h/o PE agree with increase in prednisone supportive care, inhalers, nebs, etc NC O2 xarelto for prior PE consider pulmonary consultation while here zithromax x 5 days Vaibhav Gutierrez MD PG Care Time/CCT Total # of Minutes Spent Total Time Spent with Patient: Total time spent is greater than 50% in coor dination of care (as documented) at patient's floor/unit and/or counseling patient: Coding Level of Care Code 57026 Initial Inpt Care Lvl 3 Diagnoses COPD (chronic obstructive pulmonary disease) J43.9 COPD type: emphysema Emphysema type: unspecified Sarcoidosis D86.9 Tobacco use disorder F17.200 Osteoarthritis of left shoulder M19.012 Osteoarthritis type: unspecified Low back pain M54.5; G89.29 Back pain laterality: bilateral Chronicity: chronic Sciatica presence: without sciatica Pulmonary embolism I27.82; I26.09 Acute cor pulmonale presence: with acute cor pulmonale Chronicity: chronic Pulmonary embolism type: other Osteoporosis M81.0 Osteoporosis type: unspecified Presence of current pathological fracture: without current pathological fracture Cor pulmonale I27.81 (1) Low back pain Back pain laterality: bilateral Chronicity: chronic Sciatica presence: without sciatica Qualified Code(s): M54.5 - Low back pain; G89.29 - Other chronic pain (2) Osteoporosis Osteoporosis type: unspecified Presence of current pathological fracture: without current pathological fracture Qualified Code(s): M81.0 - Age-related osteoporosis without current pathological fracture (3) COPD (chronic obstructive pulmonary disease) COPD type: emphysema Emphysema type: unspecified Qualified Code(s): J43.9 - Emphysema, unspecified (4) Pulmonary embolism Acute cor pulmonale presence: with acute cor pulmonale Chronicity: chronic Pulmonary embolism type: other Qualified Code(s): I27.82 - Chronic pulmonary embolism; I26.09 - Other pulmonary embolism with acute cor pulmonale (5) Osteoarthritis of left shoulder Osteoarthritis type: unspecified Qualified Code(s): M19.012 - Primary osteoarthritis, left shoulder
[2020-10-09] MEDS: predniSONE 20 MG TAB PO SCH (12:30)
[2020-10-09 12:53] LABS: Base Excess ABG 6.2 mEq/L (-9-1.8); HCO3 ABG 31 mmol/L (19-24); PCO2 ABG 45 mmHg (35-46); PO2 ABG 66 mmHg (80-95); pH ABG 7.45 (7.35-7.45)
[2020-10-09 12:54] LABS: Allen Test Pos (Pos)
[2020-10-09] MEDS: RIVAROXABAN 20 MG TAB PO SCH (13:11)
--- NOTE | 2020-10-09 15:01 | CT Scan Report ---
CT OF THE CHEST WITHOUT IV CONTRAST CLINICAL HISTORY: sarcoid, COPD exacerbation COMPARISON STUDY: Chest CT August 10, 2020. Chest radiograph performed earlier today. CT DOSE: 389.71 mGycm TECHNIQUE: Axial images of the chest were obtained without IV contrast. Images were reviewed in the axial, sagittal, and coronal planes. IV contrast was not administered for this examination. Automat ed exposure control was utilized for the study. A dose lowering technique was utilized adhering to t he principles of ALARA. FINDINGS: Size of the heart is normal. There is no pericardial effusion. Note is again made of multi ple calcified mediastinal and bilateral hilar lymph nodes. Conglomerate left perihilar opacity is unc hanged. This is chronic. There is distortion within the lungs which is unchanged. Tiny centrilobular nodules within the lungs are unchanged. Multiple calcifications within the lungs are again noted. The re is no consolidation to suggest superimposed pneumonia. The appearance of the chest is unchanged si nce CT of August 21, 2020. Emphysema is present. No pneumothorax or pleural effusion. There is been interval development of sclerosis along the superior endplate of T8. This is indeterminate but favor s a healing fracture. There is no vertebral body height loss. A small hiatal hernia is present. Upper abdomen is unremarkable on this unenhanced exam. IMPRESSION: 1. No change in appearance of the chest since CT of August 10, 2020. Findings consistent with a gran ulomatous process and favor sarcoidosis. 2. Emphysema. 3. No superimposed consolidation. ACT 112: Negative or not required by law. Electronically signed by: Carlos Cunha M.D. 10/09/2020 2:59 PM
[2020-10-09] MEDS ORDERED: ACETAMINOPHEN 325 MG TAB PO PRN (16:04)
[2020-10-09] MEDS ORDERED: LACTATED RINGER'S 1,000 ML IV ONE (16:04)
[2020-10-09] MEDS ORDERED: ALBUTEROL 0.083% NEBU SOLN 3 ML VIAL INH PRN (16:04)
[2020-10-09] MEDS ORDERED: ONDANSETRON INJ 2 MG/ML 2 ML VIAL IV PRN (16:04)
[2020-10-09] MEDS: traMADol HCL 50 MG TABLET PO PRN (16:46)
--- NOTE | 2020-10-09 16:54 | Emergency Department Note ---
History of Present Illness General Chief Complaint: Shortness of Breath/Dyspnea Time Seen by Provider: 10/09/20 09:33 History of Present Illness Provider Complaint: shortness of breath Onset (ago): week(s) (1) Severity: moderate Consistency/Duration: + intermittent and + progressively worsening Maximum Pain Intensity: 9 Current Pain Intensity: 7 Relieved By: + oxygen Exacerbated By: + coughing and + deep breaths Context: no recent illness, no choking/aspiration, no medication noncompliance, no allergen exposure, no recent travel, no smoke/fume exposure, no anxiety, no trauma/injury, no elevated blood glucose and no CO exposure Known history of: COPD Associated symptoms: + chest pain and + pain with inspiration; no cough, no wheezing, no sputum production, no orthopnea, no polyuria, no polydipsia, no paresthesias, no palpitations, no diaphoresis, no nausea/vomiting, no syncope, no abdominal pain, no sense of impending doom, no chest congestion and no lightheadedness Treatment prior to arrival: oxygen, bronchodilator (DuoNeb) and other (Solu- Medrol 125 mg) HPI Narrative: Patient on Xarelto and reports not missing any oxygen recently Related Data Home oxygen amount: 2 liters Home Medications Medication Instructions Recorded Confirmed Type albuterol sulfate 90 mcg/actuation 2 puff INHALATION QID PRN #18 gm 02/17/20 10/09/20 Rx aerosol inhaler albuterol sulfate 2.5 mg INHALATION QID PRN #90 ml 02/19/20 10/09/20 Rx sertraline 100 mg tablet 200 mg PO QAM #60 tab 02/19/20 10/09/20 Rx buspirone 10 mg tablet 10 mg PO BID #60 tab 03/20/20 10/09/20 Rx lorazepam 1 mg tablet 1 mg PO DAILY PRN #30 tab 06/15/20 10/09/20 Rx meloxicam 7.5 mg tablet 15 mg PO DAILY #30 tab 06/15/20 10/09/20 Rx diclofenac sodium [Voltaren] 4 g TOPICAL QID #150 g 08/06/20 10/09/20 Rx trazodone 50 mg tablet 50 mg PO HS #30 tab 08/06/20 10/09/20 Rx pantoprazole 40 mg tablet,delayed 40 mg PO DAILY #30 tab 08/17/20 10/09/20 Rx release cyclobenzaprine 10 mg tablet 10 mg PO TID PRN #60 tab 08/19/20 10/09/20 Rx rivaroxaban 20 mg tablet 20 mg PO DAILY #90 tab 09/07/20 10/09/20 Rx umeclidinium 62.5 mcg-vilanterol 1 inh INHALATION QAM #60 ea 09/09/20 10/09/20 Rx 25 mcg/actuation powdr for inhalation fluticasone propionate 110 2 puff INHALATION BID #12 g 09/30/20 10/09/20 Rx mcg/actuation HFA aerosol inhaler tramadol 100 mg tablet 100 mg PO TID PRN #30 tab 10/02/20 10/09/20 Rx amoxicillin 875 mg-potassium 1 tab PO Q12H #20 tab 10/05/20 10/09/20 Rx clavulanate 125 mg tablet prednisone 10 mg tablet See Rx Instructions PO DAILY #36 10/05/20 10/09/20 Rx tab nicotine (polacrilex) 0 mg BUCCAL Q4H PRN 10/09/20 10/09/20 History Allergies Allergy/AdvReac Type Severity Reaction Status Date / Time No Known Allergies Allergy Verified 10/09/20 10:44 Past Med/Surg History Medical History Acute and chronic respiratory failure with hypoxia Anxiety Anxiety and depression COPD (chronic obstructive pulmonary disease) + rare O2 PRN (no use x 1 year) COPD exacerbation Depression Pulmonary embolism Sarcoidosis stable Surgical History H/O arthroplasty H/O hysterectomy for benign disease (10/02/12) History of hip replacement Left PREETI: 09/11/17: SAB x 1 at L3-L4 at [facility] History of right shoulder replacement Hx of colonoscopy Hx of elbow surgery RIGHT Family History Father Myocardial infarction Brother Anxiety COPD (chronic obstructive pulmonary disease) Daughter Anxiety Sister Breast cancer Other Diabetes Kidney disease Denies family history of Ovarian cancer Prostate cancer Colorectal cancer Social History Smoking Status: Heavy tobacco smoker Tobacco Type: Cigarettes Cigarettes Per Day: 20; Second Hand Exposure: No; Hx Alcohol Use: No Hx Substance Use: No Preferred Language: B[place] Communication Ability: Effective Visual Impairment: No Limitations Returned Goods Repairer Required: No Beliefs That Will Affect Care: None marital status: Current Living Situation: Spouse Feels Safe at Home: Yes Assistive Devices: Oxygen - Continuous Review of Systems A total of 10 systems reviewed and were otherwise negative Physical Exam Vital Signs: Vital Signs - 24 hr 10/09/20 09:22 10/09/20 09:26 10/09/20 09:29 Temperature 36.8 C Temperature Source Oral Pulse Rate 98 H 98 H Pulse Rate [Apical ] Pulse Rate from Sp O2 Sensor 99 H 99 H Respiratory Rate 17 27 H Respiratory Effort / Characteristics Labored Respiratory Depth Normal Respiratory Patter n Rapid/Shallow Blood Pressure 96/74 L Blood Pressure Belen n 81 Pulse Oximetry 92 91 90 Oxygen Delivery Me thod Nasal Cannula Nasal Cannula Nasal Cannula Oxygen Flow Rate 2 2 2 Sepsis Recent Feve r Within 48 Hours No Sepsis New/Unexpla ined Change in Men mukund Status No Sepsis Action Take n by Nursing No Action Required Oxygen Flow Rate - Titration 3 Pulse Oximetry Pos t Tiitration 92 10/09/20 09:30 10/09/20 09:53 10/09/20 10:00 Temperature Temperature Source Pulse Rate 96 H 96 H Pulse Rate [Apical ] Pulse Rate from Sp O2 Sensor 96 H 96 H Respiratory Rate 20 23 Respiratory Effort / Characteristics Respiratory Depth Respiratory Patter n Blood Pressure Blood Pressure Belen n Pulse Oximetry 91 93 92 Oxygen Delivery Me thod Nasal Cannula Oxygen Flow Rate 3 3 Sepsis Recent Feve r Within 48 Hours Sepsis New/Unexpla ined Change in Men mukund Status Sepsis Action Take n by Nursing Oxygen Flow Rate - Titration Pulse Oximetry Pos t Tiitration 10/09/20 10:16 10/09/20 10:40 10/09/20 10:41 Temperature Temperature Source Pulse Rate 100 H 101 H Pulse Rate [Apical ] 96 H Pulse Rate from Sp O2 Sensor 98 H 101 H Respiratory Rate 20 17 20 Respiratory Effort / Characteristics Spontaneous Respiratory Depth Respiratory Patter n Blood Pressure 113/74 Blood Pressure Belen n 87 Pulse Oximetry 92 92 92 Oxygen Delivery Me thod Nasal Cannula Nasal Cannula Oxygen Flow Rate 3 3 Sepsis Recent Feve r Within 48 Hours Sepsis New/Unexpla ined Change in Men mukund Status Sepsis Action Take n by Nursing Oxygen Flow Rate - Titration Pulse Oximetry Pos t Tiitration 10/09/20 11:00 10/09/20 11:30 10/09/20 12:00 Temperature Temperature Source Pulse Rate 103 H 106 H 104 H Pulse Rate [Apical ] Pulse Rate from Sp O2 Sensor 103 H 108 H 106 H Respiratory Rate 19 23 20 Respiratory Effort / Characteristics Respiratory Depth Respiratory Patter n Blood Pressure 105/75 131/80 118/73 Blood Pressure Belen n 85 97 88 Pulse Oximetry 92 92 91 Oxygen Delivery Me thod Nasal Cannula Nasal Cannula Nasal Cannula Oxygen Flow Rate 3 3 3 Sepsis Recent Feve r Within 48 Hours Sepsis New/Unexpla ined Change in Men mukund Status Sepsis Action Take n by Nursing Oxygen Flow Rate - Titration Pulse Oximetry Pos t Tiitration 10/09/20 12:15 10/09/20 12:30 Temperature Temperature Source Pulse Rate 105 H Pulse Rate [Apical ] 104 H Pulse Rate from Sp O2 Sensor 105 H Respiratory Rate 20 19 Respiratory Effort / Characteristics Spontaneous Respiratory Depth Respiratory Patter n Blood Pressure 110/76 Blood Pressure Belen n 87 Pulse Oximetry 93 91 Oxygen Delivery Me thod Nasal Cannula Nasal Cannula Oxygen Flow Rate 2 3 Sepsis Recent Feve r Within 48 Hours Sepsis New/Unexpla ined Change in Men mukund Status Sepsis Action Take n by Nursing Oxygen Flow Rate - Titration Pulse Oximetry Pos t Tiitration Physical Exam: Physical Exam GENERAL: She is oriented to person, place, and time. She appears well-developed and well-nourished. She does not appear distressed. HENT: Exam performed. -Head: Normocephalic and atraumatic. -Right Ear: External ear normal. No mastoid tenderness. -Left Ear: External ear normal. No mastoid tenderness. -Mouth/Throat: The oropharynx is clear and moist. No trismus in the jaw. No dental abscesses or uvula swelling. No oropharyngeal exudate or tonsillar abscesses. EYES: Conjunctivae and EOM are normal. Pupils are equal, round, and reactive to light. Right eye exhibits no discharge. Left eye exhibits no discharge. No scleral icterus. NECK: Normal range of motion. Neck supple. No JVD present. No spinous process tenderness present. No carotid bruit present. No rigidity. No tracheal deviation and normal range of motion present. No Brudzinski's sign and no Kernig's sign noted. CV: Normal rate, regular rhythm, normal heart sounds and intact distal pulses. There is no peripheral edema. Palpable radial pulses bue. PULM/CHEST: Diffuse wheezes bilaterally wheezes. She has no rales. -Chest Wall: She exhibits no tenderness. ABD: The abdomen is soft. Bowel sounds are normal. She has no distension. No mass is present. There is no tenderness. There is no rebound, no guarding, no Croft's sign and no tenderness at McBurney's point. Rovsig negative MUSC/SKEL: Normal range of motion. There is no peripheral edema, tenderness or deformity. LYMPH: No cervical adenopathy. NEURO: She is alert and oriented to person, place, and time. She has normal strength. No cranial nerve deficit or sensory deficit. Coordination and gait normal. GCS eye subscore is 4. GCS verbal subscore is 5. GCS motor subscore is 6. Cerebellar tests wnl. SKIN: Skin is warm and dry. She is not diaphoretic. PSYCH: She has a normal mood and affect. Behavior is normal. Judgment and thought content normal. Course Course 932: The patient was evaluated in room C10. A complete history and physical exam was performed Cardiac monitoring: An order was placed for continuous cardiac monitoring. The monitor shows a rate of 100 with sinus rhythm Patient was seen in full airborne precautions. Patient was seen in N95's, gloves, gowns, face shield by myself and staff. 1230: Vital signs stable on supplemental oxygen. Patient still having wheezing status post 2 DuoNeb's. Labs and imaging within normal limits. Patient states she does not feel comfortable going home if she is still having difficulty breathing. We will discussed the case with the [facility] hospitalist team Dr. Gutierrez who will evaluate the patient. Administered Medications Prednisone (Prednisone 20 Mg Tab) 40 mg PO DAILY [facility] Stop: 11/08/20 12:14 Last Admin: 10/09/20 12:30 Dose: 40 mg Documented by: [id number] Rivaroxaban (Rivaroxaban 20 Mg Tab) 20 mg PO DAILY [facility] Stop: 11/08/20 12:06 Last Admin: 10/09/20 13:11 Dose: 20 mg Documented by: [id number] Discontinued Medications Albuterol (Albut/Ipratrop 3mg/0.5mg Neb 3 Ml Vial) 3 ml NEB NOW STA Stop: 10/09/20 09:49 Last Admin: 10/09/20 10:15 Dose: 3 ml Documented by: [id number] Albuterol (Albut/Ipratrop 3mg/0.5mg Neb 3 Ml Vial) 3 ml NEB NOW STA Stop: 10/09/20 09:51 Last Admin: 10/09/20 10:15 Dose: 3 ml Documented by: [id number] Albuterol (Albut/Ipratrop 3mg/0.5mg Neb 3 Ml Vial) 3 ml NEB NOW STA Stop: 10/09/20 11:53 Last Admin: 10/09/20 12:15 Dose: 3 ml Documented by: [id number] Azithromycin (Azithromycin 250 Mg Tab) 500 mg PO NOW ONE Stop: 10/09/20 12:09 Last Admin: 10/09/20 12:30 Dose: 500 mg Documented by: [id number] Medical Decision Making Laboratory Data Result diagrams: 10/09/20 08:20 10/09/20 08:20 Lab Results 10/09/20 10/09/20 10/09/20 Range/Units 08:20 08:20 08:20 WBC 8.38 (4.8-10.8) K/uL RBC 5.35 (4.2-5.4) M/uL Hgb 17.2 H (12.0-16.0) g/dL Hct 50.0 H (37-47) % MCV 93.5 (80-100) fL MCH 32.1 (25-34) pg MCHC 34.4 (32-36) g/dL RDW Std Deviation 48.4 H (36.4-46.3) fL RDW Coeff of Perry 14.3 (11.5-14.5) % Plt Count 226 (130-400) K/uL MPV 10.5 H (7.4-10.4) fL Immature Gran % (Auto) 0.5 % Neut % (Auto) 64.0 % Lymph % (Auto) 21.0 % [place] % (Auto) 8.5 % Eos % (Auto) 5.0 % Baso % (Auto) 1.0 % Neut # (Auto) 5.37 (1.4-6.5) K/uL Lymph # (Auto) 1.76 (1.2-3.4) K/uL [place] # (Auto) 0.71 H (0.11-0.59) K/uL Eos # (Auto) 0.42 (0-0.5) K/uL Baso # (Auto) 0.08 (0-0.2) K/uL Immature Gran # (Auto) 0.04 H (0.00-0.02) K/uL PT 10.2 (9.0-12.0) Seconds INR 1.0 (0.9-1.1) APTT 25.9 (21.0-31.0) Seconds PTT Ratio 1.0 VBG pH (7.36-7.41) VBG pCO2 (38-50) mmHg VBG pO2 mmHg VBG HCO3 mmol/L VBG O2 Saturation % VBG Base Excess mEq/L Barometric Pressure mm/Hg Sodium 138 (136-145) mmol/L Potassium 4.1 (3.5-5.1) mmol/L Chloride 101 (98-107) mmol/L Carbon Dioxide 34 H (21-32) mmol/L Anion Gap 3.0 (3-11) BUN 11 (7-18) mg/dl Creatinine 0.98 (0.6-1.2) mg/dl Est Cr Clr Drug Dosing 55.1 ml/min Est GFR ( Amer) 69.7 Est GFR (Non-Af Amer) 60.1 BUN/Creatinine Ratio 11.3 (10-20) Glucose 113 H (70-99) mg/dl Calcium 9.5 (8.5-10.1) mg/dl Troponin I < 0.015 (0-0.045) ng/ml NT-Pro-B Natriuret Pep 297 (0-900) pg/ml COVID-19 Eval Order SARS-CoV-2 (PCR) (Negative) Influenza Type A (PCR) (Neg) Influenza Type B (PCR) (Neg) RSV (RT-PCR) (Neg) 10/09/20 10/09/20 10/09/20 Range/Units 09:57 09:57 09:58 WBC (4.8-10.8) K/uL RBC (4.2-5.4) M/uL Hgb (12.0-16.0) g/dL Hct (37-47) % MCV (80-100) fL MCH (25-34) pg MCHC (32-36) g/dL RDW Std Deviation (36.4-46.3) fL RDW Coeff of Perry (11.5-14.5) % Plt Count (130-400) K/uL MPV (7.4-10.4) fL Immature Gran % (Auto) % Neut % (Auto) % Lymph % (Auto) % [place] % (Auto) % Eos % (Auto) % Baso % (Auto) % Neut # (Auto) (1.4-6.5) K/uL Lymph # (Auto) (1.2-3.4) K/uL [place] # (Auto) (0.11-0.59) K/uL Eos # (Auto) (0-0.5) K/uL Baso # (Auto) (0-0.2) K/uL Immature Gran # (Auto) (0.00-0.02) K/uL PT (9.0-12.0) Seconds INR (0.9-1.1) APTT (21.0-31.0) Seconds PTT Ratio VBG pH 7.37 (7.36-7.41) VBG pCO2 59 H (38-50) mmHg VBG pO2 33 mmHg VBG HCO3 33 mmol/L VBG O2 Saturation 66.8 % VBG Base Excess 5.7 mEq/L Barometric Pressure 733.6 mm/Hg Sodium (136-145) mmol/L Potassium (3.5-5.1) mmol/L Chloride (98-107) mmol/L Carbon Dioxide (21-32) mmol/L Anion Gap (3-11) BUN (7-18) mg/dl Creatinine (0.6-1.2) mg/dl Est Cr Clr Drug Dosing ml/min Est GFR ( Amer) Est GFR (Non-Af Amer) BUN/Creatinine Ratio (10-20) Glucose (70-99) mg/dl Calcium (8.5-10.1) mg/dl Troponin I (0-0.045) ng/ml NT-Pro-B Natriuret Pep (0-900) pg/ml COVID-19 Eval Order CovFluRsv at [facility] SARS-CoV-2 (PCR) NEGATIVE (Negative) Influenza Type A (PCR) Negative (Neg) Influenza Type B (PCR) Negative (Neg) RSV (RT-PCR) Negative (Neg) Imaging Data Radiologist's Impression: Chest X-Ray 10/09/20 09:49 XR chest 1V portable HISTORY: Shortness of breath. COMPARISON: Chest 08/21/2020. FINDINGS: No pneumothorax. No pleural effusions. The heart is normal in size. Emphysema and scattered scarring/fibrotic change persists. No new focal lung consolidations to suggest pneumonia. No evidence for pulmonary edema. Bilateral hilar calcifications remain unchanged. Old, healed right-sided rib fractures. There are postoperative changes within the right shoulder. IMPRESSION: No significant change compared to the prior study. No acute process. ACT 112: Negative or not required by law. Electronically signed by: Zack Dixon M.D. 10/09/2020 10:10 AM ECG Data Interpretation: Sinus rhythm with rate 99. ID QRS and QTc intervals within normal limits. No ST elevation or ST depression. MDM Narrative 0933: The patient was evaluated in room C10. A complete history and physical exam was performed Cardiac monitoring: An order was placed for continuous cardiac monitoring. The monitor shows a rate of 100 with sinus rhythm Patient was seen in full airborne precautions. Patient was seen in N95's, gloves, gowns, face shield by myself and staff. 1230: Vital signs stable on supplemental oxygen. Patient still having wheezing status post 2 DuoNeb's. Labs and imaging within normal limits. Patient states she does not feel comfortable going home if she is still having difficulty breathing. We will discussed the case with the [facility] hospitalist team Dr. Gutierrez who will evaluate the patient. Impression & Plan COPD (chronic obstructive pulmonary disease) Discharge Plan Visit Data Chief Complaint: Shortness of Breath/Dyspnea ED Provider: Chino Gandara Discharge Problem: COPD (chronic obstructive pulmonary disease) Patient Disposition: Admitted As Inpatient Discharge Instructions Interventions: ED Discharge Assessment Last Done: 10/09/20 15:44 Discharge Problem: COPD (chronic obstructive pulmonary disease) Qualifiers: COPD type: unspecified COPD Qualified Code(s): J44.9 - Chronic obstructive pulmonary disease, unspecified
[2020-10-09] MEDS: NICOTINE 14 MG/24 HR PATCH TD SCH (16:56)
[2020-10-09] MEDS: AZITHROMYCIN 250 MG TAB PO SCH (16:57)
[2020-10-09] MEDS: DICLOFENAC SOD 1% GEL 100 GM TUBE EXT SCH ×2 (16:58→21:05)
[2020-10-09] MEDS: ALBUTEROL HFA 8 GM INHALER INH SCH ×3 (17:14→19:36)
[2020-10-09] MEDS: UMECLIDINIUM/VILANTEROL 62.5/25MCG 7 PUFFS/INHALER INH SCH (17:35)
[2020-10-09] MEDS: busPIRone 5 MG TAB PO SCH (21:04)
[2020-10-09] MEDS: FLUTICASONE FUROATE 200MCG 14 PUFFS/INHALER INH SCH (21:04)
[2020-10-09] MEDS: LORazepam 1 MG TAB PO PRN (21:15)
[2020-10-10 07:09] LABS: Basophils # (auto) 0.01 K/uL (0-0.2); Basophils % (auto) 0.1 %; Hematocrit (blood only) 43.9 % (37-47); Hemoglobin 15.4 g/dL (12.0-16.0); Immature Granulocytes # (auto) 0.03 K/uL (0.00-0.02); Immature Granulocytes % (auto) 0.3 %; Lymphocytes % (auto) 11.2 %; Mean Corpuscular Hemoglobin 32.4 pg (25-34); Mean Corpuscular Hgb Conc 35.1 g/dL (32-36); Mean Corpuscular Volume 92.2 fL (80-100); Mean Platelet Volume 9.9 fL (7.4-10.4); Monocytes # (auto) 0.92 K/uL (0.11-0.59); Neutrophils % (auto) 80.4 %; Platelet Count 194 K/uL (130-400); RDW Coefficient of Variation 13.9 % (11.5-14.5); RDW Standard Deviation 46.8 fL (36.4-46.3); Red Blood Count 4.76 M/uL (4.2-5.4); White Blood Count 11.56 K/uL (4.8-10.8)
--- NOTE | 2020-10-10 07:22 | Electrocardiogram Report ---
Test Reason : Blood Pressure : / mmHG Vent. Rate : 099 BPM Atrial Rate : 099 BPM P-R Int : 124 ms QRS Dur : 086 ms QT Int : 328 ms P-R-T Axes : 073 169 078 degrees QTc Int : 420 ms Normal sinus rhythm Possible Left atrial enlargement Left posterior fascicular block Nonspecific T wave abnormality Abnormal ECG When compared with ECG of 21-AUG-2020 11:41, Inverted T waves have replaced nonspecific T wave abnormality in Anterior leads Confirmed by Roberto Cooper ([id number]) on 10/10/2020 7:22:26 AM Referred By: REFERRED SELF Confirmed By:Roberto Cooper
[2020-10-10] MEDS: AZITHROMYCIN 250 MG TAB PO SCH (07:25)
[2020-10-10] MEDS: SERTRALINE HCL 100 MG TABLET PO SCH (07:25)
[2020-10-10] MEDS: PANTOprazole 40 MG TAB PO SCH (07:26)
[2020-10-10] MEDS: DICLOFENAC SOD 1% GEL 100 GM TUBE EXT SCH ×4 (07:26→20:44)
[2020-10-10] MEDS: NICOTINE 14 MG/24 HR PATCH TD SCH (07:26)
[2020-10-10] MEDS: busPIRone 5 MG TAB PO SCH ×2 (07:26→20:42)
[2020-10-10] MEDS: MELOXICAM 7.5 MG TAB PO SCH (07:26)
[2020-10-10 07:40] LABS: BUN Creatinine Ratio 18.9 (10-20); Calcium 9.5 mg/dl (8.5-10.1); Creatinine Clr Calc Pharmacy 65.9 ml/min; Est GFR (African American) 86.4; Est GFR (Non-African American) 74.6; Magnesium 2.7 mg/dl (1.8-2.4); Potassium 4.8 mmol/L (3.5-5.1)
[2020-10-10] MEDS: ALBUTEROL HFA 8 GM INHALER INH SCH ×4 (07:40→20:14)
[2020-10-10] MEDS: predniSONE 20 MG TAB PO SCH (08:03)
[2020-10-10] MEDS: RIVAROXABAN 20 MG TAB PO SCH (08:04)
[2020-10-10] MEDS: traMADol HCL 50 MG TABLET PO PRN (08:06)
[2020-10-10] MEDS: LORazepam 1 MG TAB PO PRN (20:42)
[2020-10-10] MEDS: FLUTICASONE FUROATE 200MCG 14 PUFFS/INHALER INH SCH (20:44)
[2020-10-10] MEDS: UMECLIDINIUM/VILANTEROL 62.5/25MCG 7 PUFFS/INHALER INH SCH (20:44)
--- NOTE | 2020-10-10 22:33 | Hospitalist Progress Note ---
Date of Service October 10, 2020 Assessment & Plan (1) COPD (chronic obstructive pulmonary disease): Acute on chronic COPD exacerbation without respiratory failure. GOLD 2A - ABG - 7.45, 45, 66, 31. on 2lNC- Ventilation improved- Mild metabolic alkalosis- likely contractile as also evident by her hemoconcentrated HGB/HCT levels. - Patient with increased use of inhalers, increase cough and sputum, increased oxygen use - Will increase oral prednisone to 40mg po daily - Schedule albuterol inhalers q6 - DuoNeb q3 prn - Continue umeclidinium/Vilanterol daily - Continue Flovent - Azithromycin 500mg x1 and then 250mg x 5 days - Oxygen 2-4 L NC SPO2 goal 88-92%; Patient on her regular 2LNC with SPO2 92-94% on my evaluation. - HFNC for breathlessness may be an option, patient has never had CPAP/BiPAP and does not think she would tolerate it. - PFT's from 09/30/20- FEV1/FVC 53%, DLCO 41%, FEV1 37. Noted reduction in FEV1 and FVC Patient was on Augmentin that finished yesterday. Patient does not remember taking this or why she was on it. - Patient recently seen pulmonary on , and no reference in the not for medication addition or change. On 10/10: I discussed with patient the importance of no longer smoking. She says she is interested in using chantix. She is working on getting it approved from her insurance. She is hoping to quit. Patient continues to require oxygen while she is here. She states she is not quite back to baseline. Will monitor for another day. 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 (5) Low back pain: As above (6) Pulmonary embolism: Chronic- Patient unable to recall if she took her Xeralto yesterday. Dose given now SCD's and Xeralto for VTE prophy (7) Osteoporosis: Patient was to start alendronate as outpatient, has not done so secondary to making her nauseated (8) Cor pulmonale: ECHO -09/30/20- Normal LV function, Mild LVH, Moderate RV systolic dysfunction, Moderate RA dilation, Trace MR - EF 60-65% diastolic dysfunction type I Admission and Anticipated Discharge Date Admission Date: October 09, 2020 Subjective 65 YO female reports not feeling at baseline. She continues to feel short of breath. Review of Systems Review of Systems: All systems reviewed & are unremarkable except as noted in HPI & below Physical Exam Physical Exam: General: awake, alert, does not appear to be in distress Head: Normocephalic, atraumatic ENT: PERRL, EOMI, no pharyngeal exudate, mucous membranes moist Neuro: AAO x 3, speech clear and appropriate, strength intact bilaterally 5/5 Chest: equal rise and fall of the chest, prolonged expiratory phase with inspiratory and expiratory wheezing, no heaves or thrills, on 2LNC, orthopnea, tachypnic Cardiac: Regular rate and rhythm, mild tachycardia, telemetry reviewed, skin warm dry, cap refill <3 seconds, peripheral pulses +2 no JVD, no murmur, trace lower extremity edema, no perhiperal or central cyanosis GI: NABS x 4 quadrants, soft, nontender to palpation, no rebound, guarding or tenderness : Spontaneously voiding, no pain, no CVA tenderness, Extremities: Normal inspection, no peripheral edema or erythema, calfs nontender to palpation Psych: Normal mood and affect Skin: no rash or erythema Results & Data Results & Data ([facility]) Vital Signs (Past 12 Hours) Vital Signs Temp Pulse Resp BP Pulse Ox 10/10/20 20:15 89 16 95 10/10/20 18:56 37.1 C 98 H 20 116/81 94 10/10/20 15:21 99 H 20 93 10/10/20 15:02 36.8 C 93 H 20 110/75 93 10/10/20 11:55 37.1 C 94 H 22 100/67 92 10/10/20 10:36 96 H 18 94 PG Care Time/CCT Total # of Minutes Spent Total Time Spent with Patient: Total time spent is greater than 50% in coordination of care (as documented) at patient's floor/unit and/or counseling patient: Coding Level of Care Code 97136 Subseq Hosp Care Lvl 3 Diagnoses COPD (chronic obstructive pulmonary disease) J43.9 COPD type: emphysema Emphysema type: unspecified Sarcoidosis D86.9 Tobacco use disorder F17.200 Osteoarthritis of left shoulder M19.012 Osteoarthritis type: unspecified Low back pain M54.5; G89.29 Back pain laterality: bilateral Chronicity: chronic Sciatica presence: without sciatica Pulmonary embolism I27.82; I26.09 Acute cor pulmonale presence: with acute cor pulmonale Chronicity: chronic Pulmonary embolism type: other Osteoporosis M81.0 Osteoporosis type: unspecified Presence of current pathological fracture: without current pathological fracture Cor pulmonale I27.81 (1) Low back pain Back pain laterality: bilateral Chronicity: chronic Sciatica presence: without sciatica Qualified Code(s): M54.5 - Low back pain; G89.29 - Other chronic pain (2) Osteoporosis Osteoporosis type: unspecified Presence of current pathological fracture: without current pathological fracture Qualified Code(s): M81.0 - Age-related osteoporosis without current pathological fracture (3) COPD (chronic obstructive pulmonary disease) COPD type: emphysema Emphysema type: unspecified Qualified Code(s): J43.9 - Emphysema, unspecified (4) Pulmonary embolism Acute cor pulmonale presence: with acute cor pulmonale Chronicity: chronic Pulmonary embolism type: other Qualified Code(s): I27.82 - Chronic pulmonary embolism; I26.09 - Other pulmonary embolism with acute cor pulmonale (5) Osteoarthritis of left shoulder Osteoarthritis type: unspecified Qualified Code(s): M19.012 - Primary osteoarthritis, left shoulder
[2020-10-11] MEDS: ALBUTEROL HFA 8 GM INHALER INH SCH ×4 (07:08→19:56)
[2020-10-11 07:49] LABS: Basophils # (auto) 0.02 K/uL (0-0.2); Basophils % (auto) 0.3 %; Eosinophils # (auto) 0.16 K/uL (0-0.5); Eosinophils % (auto) 2.1 %; Hematocrit (blood only) 43.4 % (37-47); Hemoglobin 14.8 g/dL (12.0-16.0); Immature Granulocytes # (auto) 0.01 K/uL (0.00-0.02); Immature Granulocytes % (auto) 0.1 %; Lymphocytes # (auto) 1.75 K/uL (1.2-3.4); Lymphocytes % (auto) 23.4 %; Mean Corpuscular Hemoglobin 31.8 pg (25-34); Mean Corpuscular Hgb Conc 34.1 g/dL (32-36); Mean Corpuscular Volume 93.1 fL (80-100); Mean Platelet Volume 9.9 fL (7.4-10.4); Monocytes % (auto) 6.7 %; Neutrophils # (auto) 5.05 K/uL (1.4-6.5); Neutrophils % (auto) 67.4 %; Platelet Count 179 K/uL (130-400); RDW Coefficient of Variation 14.2 % (11.5-14.5); RDW Standard Deviation 47.9 fL (36.4-46.3); Red Blood Count 4.66 M/uL (4.2-5.4); White Blood Count 7.49 K/uL (4.8-10.8)
[2020-10-11 08:22] LABS: BUN Creatinine Ratio 24.9 (10-20); Calcium 9.3 mg/dl (8.5-10.1); Creatinine Clr Calc Pharmacy 58.8 ml/min; Est GFR (African American) 77.2; Est GFR (Non-African American) 66.6; Magnesium 2.4 mg/dl (1.8-2.4); Potassium 4.2 mmol/L (3.5-5.1)
[2020-10-11] MEDS: busPIRone 5 MG TAB PO SCH ×2 (08:22→20:40)
[2020-10-11] MEDS: NICOTINE 14 MG/24 HR PATCH TD SCH (08:22)
[2020-10-11] MEDS: PANTOprazole 40 MG TAB PO SCH (08:22)
[2020-10-11] MEDS: MELOXICAM 7.5 MG TAB PO SCH (08:23)
[2020-10-11] MEDS: SERTRALINE HCL 100 MG TABLET PO SCH (08:23)
[2020-10-11] MEDS: RIVAROXABAN 20 MG TAB PO SCH (08:23)
[2020-10-11] MEDS: predniSONE 20 MG TAB PO SCH (08:23)
[2020-10-11] MEDS: AZITHROMYCIN 250 MG TAB PO SCH (08:24)
[2020-10-11] MEDS: DICLOFENAC SOD 1% GEL 100 GM TUBE EXT SCH ×4 (08:24→20:41)
--- NOTE | 2020-10-11 09:21 | Hospitalist Progress Note ---
Date of Service October 11, 2020 Assessment & Plan (1) COPD (chronic obstructive pulmonary disease): Acute on chronic COPD exacerbation without respiratory failure. GOLD 2A - ABG - 7.45, 45, 66, 31. on 2lNC- Ventilation improved- Mild metabolic alkalosis- likely contractile as also evident by her hemoconcentrated HGB/HCT levels. - Patient with increased use of inhalers, increase cough and sputum, increased oxygen use -Patient will remain on oral prednisone to 40mg po daily - Schedule albuterol inhalers PRN - Continue umeclidinium/Vilanterol daily - Continue Flovent - Azithromycin 500mg x1 and then 250mg x 5 days - Oxygen 2-4 L NC SPO2 goal 88-92%; -Patient on 2 liters nasal cannula. She states she does not use oxygen continuously at home. - will order 2 nebs of albuterol today. Patient had finished a dose of Augmentin PRIOR TO ADMISSION. Patient does not remember taking this or why she was on it. - Patient recently seen pulmonary on , and no reference in the not for medication addition or change. I discussed with patient the importance of no longer smoking. She says she is interested in using chantix. She is working on getting it approved from her insurance. She is hoping to quit. Patient continues to require oxygen while she is here. Will continue above treatment, expect she will slowly improve. (2) Sarcoidosis: Appears to have been stable with her kaiawhina kura kaupapa maori and her PCP care - This may also be a flare- as above increased prednisone to 40 daily- can increase to 60 daily if no relief, then taper - Continue supportive care - PFT's as above (3) Tobacco use disorder: Continues to smoke- was interested in quitting - Wanted to try the gummies, but not covered with her insurance- Smoking cessation education consult placed (4) Osteoarthritis of left shoulder: Continue diclofenac and Meloxicam, and her Tramadol - Hold her trazodone and her cyclobenzaprine to avoid hypoventilation and somnolence until her respiratory status is stabilized. (5) Low back pain: As above (6) Pulmonary embolism: Chronic- Patient unable to recall if she took her Xeralto yesterday. Dose given now SCD's and Xeralto for VTE prophy (7) Osteoporosis: Patient was to start alendronate as outpatient, has not done so secondary to making her nauseated (8) Cor pulmonale: ECHO -09/30/20- Normal LV function, Mild LVH, Moderate RV systolic dysfunction, Moderate RA dilation, Trace MR - EF 60-65% diastolic dysfunction type I Admission and Anticipated Discharge Date Admission Date: October 09, 2020 Subjective Patient reports feeling short of breath at rest. She states she is not at her baseline as of yet. She does not use oxygen on a continuous bases at home. She has contiued to have productive cough while using the flutter valve. Review of Systems Review of Systems: All systems reviewed & are unremarkable except as noted in HPI & below Physical Exam Physical Exam: General: awake, alert, does not appear to be in distress Head: Normocephalic, atraumatic ENT: PERRL, EOMI, no pharyngeal exudate, mucous membranes moist Neuro: AAO x 3, speech clear and appropriate, strength intact bilaterally 5/5 Chest: equal rise and fall of the chest, prolonged expiratory phase with inspiratory and expiratory wheezing, no heaves or thrills, on 2LNC, orthopnea, tachypnic Cardiac: Regular rate and rhythm, mild tachycardia, telemetry reviewed, skin warm dry, cap refill <3 seconds, peripheral pulses +2 no JVD, no murmur, trace lower extremity edema, no perhiperal or central cyanosis GI: NABS x 4 quadrants, soft, nontender to palpation, no rebound, guarding or tenderness : Spontaneously voiding, no pain, no CVA tenderness, Extremities: Normal inspection, no peripheral edema or erythema, calfs nontender to palpation Psych: Normal mood and affect Skin: no rash or erythema Results & Data Results & Data ([facility]) Vital Signs (Past 12 Hours) Vital Signs Temp Pulse Pulse Resp BP Pulse Ox 10/11/20 07:08 79 18 96 10/11/20 07:00 84 10/11/20 06:47 37.0 C 77 20 110/74 96 10/11/20 03:42 36.6 C 78 20 95/59 L 93 10/10/20 23:28 36.6 C 99 H 20 109/73 96 10/10/20 23:25 84 PG Care Time/CCT Total # of Minutes Spent Total Time Spent with Patient: Total time spent is greater than 50% in coordination of care (as documented) at patient's floor/unit and/or counseling patient: Coding Level of Care Code 90556 Subseq Hosp Care Lvl 2 Diagnoses COPD (chronic obstructive pulmonary disease) J43.9 COPD type: emphysema Emphysema type: unspecified Sarcoidosis D86.9 Tobacco use disorder F17.200 Osteoarthritis of left shoulder M19.012 Osteoarthritis type: unspecified Low back pain M54.5; G89.29 Chronicity: chronic Back pain laterality: bilateral Sciatica presence: without sciatica Pulmonary embolism I27.82; I26.09 Pulmonary embolism type: other Chronicity: chronic Acute cor pulmonale presence: with acute cor pulmonale Osteoporosis M81.0 Osteoporosis type: unspecified Presence of current pathological fracture: without current pathological fracture Cor pulmonale I27.81 Time Spent (min) 25 (1) COPD (chronic obstructive pulmonary disease) COPD type: emphysema Emphysema type: unspecified Qualified Code(s): J43.9 - Emphysema, unspecified (2) Osteoarthritis of left shoulder Osteoarthritis type: unspecified Qualified Code(s): M19.012 - Primary osteoarthritis, left shoulder (3) Low back pain Chronicity: chronic Back pain laterality: bilateral Sciatica presence: without sciatica Qualified Code(s): M54.5 - Low back pain; G89.29 - Other chronic pain (4) Pulmonary embolism Pulmonary embolism type: other Chronicity: chronic Acute cor pulmonale presence: with acute cor pulmonale Qualified Code(s): I27.82 - Chronic pulmonary embolism; I26.09 - Other pulmonary embolism with acute cor pulmonale (5) Osteoporosis Osteoporosis type: unspecified Presence of current pathological fracture: without current pathological fracture Qualified Code(s): M81.0 - Age-related osteoporosis without current pathological fracture
[2020-10-11] MEDS: FLUTICASONE FUROATE 200MCG 14 PUFFS/INHALER INH SCH (20:41)
[2020-10-11] MEDS: UMECLIDINIUM/VILANTEROL 62.5/25MCG 7 PUFFS/INHALER INH SCH (20:41)
[2020-10-11] MEDS: LORazepam 1 MG TAB PO PRN (20:44)
--- NOTE | 2020-10-11 22:48 | Hospitalist Progress Note ---
Date of Service October 11, 2020 Assessment & Plan (1) COPD (chronic obstructive pulmonary disease): Acute on chronic COPD exacerbation without respiratory failure. GOLD 2A - ABG - 7.45, 45, 66, 31. on 2lNC- Ventilation improved- Mild metabolic alkalosis- likely contractile as also evident by her hemoconcentrated HGB/HCT levels. - Patient with increased use of inhalers, increase cough and sputum, increased oxygen use -Patient will remain on oral prednisone to 40mg po daily - Schedule albuterol inhalers PRN - Continue umeclidinium/Vilanterol daily - Continue Flovent - Azithromycin 500mg x1 and then 250mg x 5 days - Oxygen 2-4 L NC SPO2 goal 88-92%; -Patient on 2 liters nasal cannula. She states she does not use oxygen continuously at home. - will order 2 nebs of albuterol today. Patient had finished a dose of Augmentin PRIOR TO ADMISSION. Patient does not remember taking this or why she was on it. - Patient recently seen pulmonary on , and no reference in the not for medication addition or change. I discussed with patient the importance of no longer smoking. She says she is interested in using chantix. She is working on getting it approved from her insurance. She is hoping to quit. Patient continues to require oxygen while she is here. Will continue above treatment, expect she will slowly improve. (2) Sarcoidosis: Appears to have been stable with her neon tube bender and her PCP care - This may also be a flare- as above increased prednisone to 40 daily- can increase to 60 daily if no relief, then taper - Continue supportive care - PFT's as above (3) Tobacco use disorder: Continues to smoke- was interested in quitting - Wanted to try the gummies, but not covered with her insurance- Smoking cessation education consult placed (4) Osteoarthritis of left shoulder: Continue diclofenac and Meloxicam, and her Tramadol - Hold her trazodone and her cyclobenzaprine to avoid hypoventilation and somnolence until her respiratory status is stabilized. (5) Low back pain: As above (6) Pulmonary embolism: Chronic- Patient unable to recall if she took her Xeralto yesterday. Dose given now SCD's and Xeralto for VTE prophy (7) Osteoporosis: Patient was to start alendronate as outpatient, has not done so secondary to making her nauseated (8) Cor pulmonale: ECHO -09/30/20- Normal LV function, Mild LVH, Moderate RV systolic dysfunction, Moderate RA dilation, Trace MR - EF 60-65% diastolic dysfunction type I Admission and Anticipated Discharge Date Admission Date: October 09, 2020 Results & Data Results & Data ([facility]) Vital Signs (Past 12 Hours) Vital Signs Temp Pulse Pulse Resp BP Pulse Ox 10/11/20 19:56 91 H 16 95 10/11/20 18:54 36.7 C 96 H 20 103/67 93 10/11/20 15:14 97 H 16 94 10/11/20 15:00 36.8 C 93 H 89 16 93/58 L 96 10/11/20 11:15 87 18 97 10/11/20 10:58 36.7 C 90 18 98/63 L 96 PG Care Time/CCT Total # of Minutes Spent Total Time Spent with Patient: Total time spent is greater than 50% in coordination of care (as documented) at patient's floor/unit and/or counseling patient: Coding Diagnoses COPD (chronic obstructive pulmonary disease) J43.9 COPD type: emphysema Emphysema type: unspecified Sarcoidosis D86.9 Tobacco use disorder F17.200 Osteoarthritis of left shoulder M19.012 Osteoarthritis type: unspecified Low back pain M54.5; G89.29 Chronicity: chronic Back pain laterality: bilateral Sciatica presence: without sciatica Pulmonary embolism I27.82; I26.09 Pulmonary embolism type: other Chronicity: chronic Acute cor pulmonale presence: with acute cor pulmonale Osteoporosis M81.0 Osteoporosis type: unspecified Presence of current pathological fracture: without current pathological fracture Cor pulmonale I27.81 (1) COPD (chronic obstructive pulmonary disease) COPD type: emphysema Emphysema type: unspecified Qualified Code(s): J43.9 - Emphysema, unspecified (2) Osteoarthritis of left shoulder Osteoarthritis type: unspecified Qualified Code(s): M19.012 - Primary osteoarthritis, left shoulder (3) Low back pain Chronicity: chronic Back pain laterality: bilateral Sciatica presence: without sciatica Qualified Code(s): M54.5 - Low back pain; G89.29 - Other chronic pain (4) Pulmonary embolism Pulmonary embolism type: other Chronicity: chronic Acute cor pulmonale presence: with acute cor pulmonale Qualified Code(s): I27.82 - Chronic pulmonary embolism; I26.09 - Other pulmonary embolism with acute cor pulmonale (5) Osteoporosis Osteoporosis type: unspecified Presence of current pathological fracture: without current pathological fracture Qualified Code(s): M81.0 - Age-related osteoporosis without current pathological fracture
[2020-10-12] MEDS: ALBUTEROL HFA 8 GM INHALER INH SCH ×2 (07:15→11:15)
[2020-10-12 07:45] LABS: Basophils # (auto) 0.03 K/uL (0-0.2); Basophils % (auto) 0.4 %; Eosinophils # (auto) 0.17 K/uL (0-0.5); Eosinophils % (auto) 2.2 %; Hemoglobin 15.3 g/dL (12.0-16.0); Immature Granulocytes # (auto) 0.01 K/uL (0.00-0.02); Immature Granulocytes % (auto) 0.1 %; Lymphocytes # (auto) 2.16 K/uL (1.2-3.4); Lymphocytes % (auto) 27.9 %; Mean Corpuscular Hemoglobin 32.3 pg (25-34); Mean Corpuscular Hgb Conc 34.8 g/dL (32-36); Mean Corpuscular Volume 92.8 fL (80-100); Mean Platelet Volume 9.6 fL (7.4-10.4); Monocytes # (auto) 0.57 K/uL (0.11-0.59); Monocytes % (auto) 7.4 %; Neutrophils # (auto) 4.79 K/uL (1.4-6.5); Platelet Count 208 K/uL (130-400); RDW Standard Deviation 47.8 fL (36.4-46.3); Red Blood Count 4.74 M/uL (4.2-5.4); White Blood Count 7.73 K/uL (4.8-10.8)
[2020-10-12] MEDS: busPIRone 5 MG TAB PO SCH (07:56)
[2020-10-12] MEDS: RIVAROXABAN 20 MG TAB PO SCH (07:57)
[2020-10-12] MEDS: MELOXICAM 7.5 MG TAB PO SCH (07:57)
[2020-10-12] MEDS: NICOTINE 14 MG/24 HR PATCH TD SCH (07:57)
[2020-10-12] MEDS: AZITHROMYCIN 250 MG TAB PO SCH (07:57)
[2020-10-12] MEDS: PANTOprazole 40 MG TAB PO SCH (07:57)
[2020-10-12] MEDS: predniSONE 20 MG TAB PO SCH (07:57)
[2020-10-12] MEDS: SERTRALINE HCL 100 MG TABLET PO SCH (07:57)
[2020-10-12] MEDS: DICLOFENAC SOD 1% GEL 100 GM TUBE EXT SCH ×2 (07:58→11:57)
[2020-10-12 08:26] LABS: BUN Creatinine Ratio 25.9 (10-20); Calcium 9.2 mg/dl (8.5-10.1); Creatinine Clr Calc Pharmacy 57.2 ml/min; Est GFR (African American) 75.2; Est GFR (Non-African American) 64.9; Magnesium 2.4 mg/dl (1.8-2.4); Potassium 3.9 mmol/L (3.5-5.1)
--- NOTE | 2020-10-12 12:40 | Hospitalist Progress Note ---
Date of Service October 12, 2020 Assessment & Plan (1) COPD (chronic obstructive pulmonary disease): Acute on chronic COPD exacerbation without respiratory failure. GOLD 2A - ABG - 7.45, 45, 66, 31. on 2lNC- Ventilation improved- Mild metabolic alkalosis- likely contractile as also evident by her hemoconcentrated HGB/HCT levels. - Patient with increased use of inhalers, increase cough and sputum, increased oxygen use -Patient will remain on oral prednisone to 40mg po daily - Schedule albuterol inhalers PRN - Continue umeclidinium/Vilanterol daily - Continue Flovent - Azithromycin 500mg x1 and then 250mg x 5 days - Oxygen 2-4 L NC SPO2 goal 88-92%; -Patient on 2 liters nasal cannula. She states she does not use oxygen continuously at home. - will order 2 nebs of albuterol today. Patient had finished a dose of Augmentin PRIOR TO ADMISSION. Patient does not remember taking this or why she was on it. - Patient recently seen pulmonary on , and no reference in the not for medication addition or change. I discussed with patient the importance of no longer smoking. She says she is interested in using chantix. She is working on getting it approved from her insurance. She is hoping to quit. Patient continues to require oxygen while she is here. Will continue above treatment, expect she will slowly improve. 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 (5) Low back pain: As above (6) Pulmonary embolism: Chronic- Patient unable to recall if she took her Xeralto yesterday. Dose given now SCD's and Xeralto for VTE prophy (7) Osteoporosis: Patient was to start alendronate as outpatient, has not done so secondary to making her nauseated (8) Cor pulmonale: ECHO -09/30/20- Normal LV function, Mild LVH, Moderate RV systolic dysfunction, Moderate RA dilation, Trace MR - EF 60-65% diastolic dysfunction type I Admission and Anticipated Discharge Date Admission Date: October 09, 2020 Results & Data Results & Data ([facility]) Vital Signs (Past 12 Hours) Vital Signs Temp Pulse Pulse Resp BP BP Pulse Ox 10/12/20 11:48 37.0 C 89 20 109/73 93 10/12/20 11:15 94 H 18 97 10/12/20 07:22 75 10/12/20 07:18 85 18 96 10/12/20 07:00 36.8 C 78 20 125/82 96 10/12/20 04:15 36.9 C 78 20 106/65 95 Laboratory Results Laboratory Results - last 24 hr 10/12/20 10/12/20 07:23 07:23 WBC 7.73 RBC 4.74 Hgb 15.3 Hct 44.0 MCV 92.8 MCH 32.3 MCHC 34.8 RDW Std Deviation 47.8 H RDW Coeff of [place] 14.0 Plt Count 208 MPV 9.6 Immature Gran % (Auto) 0.1 Neut % (Auto) 62.0 Lymph % (Auto) 27.9 [place] % (Auto) 7.4 Eos % (Auto) 2.2 Baso % (Auto) 0.4 Neut # (Auto) 4.79 Lymph # (Auto) 2.16 [place] # (Auto) 0.57 Eos # (Auto) 0.17 Baso # (Auto) 0.03 Immature Gran # (Auto) 0.01 Sodium 138 Potassium 3.9 Chloride 103 Carbon Dioxide 31 Anion Gap 4.0 BUN 24 H Creatinine 0.92 Est Cr Clr Drug Dosing 57.2 Est GFR ( Amer) 75.2 Est GFR (Non-Af Amer) 64.9 BUN/Creatinine Ratio 25.9 H Glucose 86 Calcium 9.2 Magnesium 2.4 Medications Administered Current Inpatient Medications Acetaminophen (Acetaminophen 325 Mg Tab) 650 mg PO Q4H PRN PRN Reason: Pain or Fever Stop: 11/08/20 16:03 Last Admin: 10/09/20 19:41 Dose: 650 mg Documented by: Albuterol (Albuterol 0.083% Nebu Soln 3 Ml Vial) 2.5 mg INH Q3H PRN PRN Reason: Shortness Of Breath Or Wheezing Stop: 11/08/20 16:03 Albuterol (Albuterol Hfa 8 Gm Inhaler) [address] [facility] Stop: 11/09/20 06:59 Last Admin: 10/12/20 11:15 Dose: 2 puffs Documented by: Buspirone HCl (Buspirone 5 Mg Tab) [address] [facility] Stop: 11/08/20 20:59 Last Admin: 10/12/20 07:56 Dose: 10 mg Documented by: Diclofenac Sodium (Diclofenac Sod 1% Gel 100 Gm Tube) [address] [facility] Stop: 11/08/20 16:59 Last Admin: 10/12/20 11:57 Dose: Not Given Documented by: Fluticasone Furoate (Fluticasone Furoate 200mcg 14 Puffs/Inhaler) [address] [facility] Stop: 11/08/20 20:59 Last Admin: 10/11/20 20:41 Dose: 1 puffs Documented by: Lorazepam (Lorazepam 1 Mg Tab) 1 mg PO DAILY PRN PRN Reason: Anxiety Stop: 11/08/20 16:12 Last Admin: 10/11/20 20:44 Dose: 1 mg Documented by: Meloxicam (Meloxicam 7.5 Mg Tab) [address] [facility] Stop: 11/09/20 08:59 Last Admin: 10/12/20 07:57 Dose: 15 mg Documented by: Miscellaneous (Remove Nicoderm Patch) 1 ea N/A DAILY@0859 [facility] Stop: 11/08/20 16:02 Last Admin: 10/12/20 07:56 Dose: 1 ea Documented by: Nicotine (Nicotine 14 Mg/24 Hr Patch) [address] [facility] Stop: 11/08/20 16:03 Last Admin: 10/12/20 07:57 Dose: 14 mg Documented by: Ondansetron HCl (Ondansetron Inj 2 Mg/Ml 2 Ml Vial) 4 mg IV Q6H PRN PRN Reason: Nausea Stop: 11/08/20 16:03 Pantoprazole Sodium (Pantoprazole 40 Mg Tab) [address] [facility] Stop: 11/09/20 08:59 Last Admin: 10/12/20 07:57 Dose: 40 mg Documented by: Prednisone (Prednisone 20 Mg Tab) [address] [facility] Stop: 11/08/20 12:14 Last Admin: 10/12/20 07:57 Dose: 40 mg Documented by: Rivaroxaban (Rivaroxaban 20 Mg Tab) 20 mg PO DAILY [facility] Stop: 11/08/20 12:06 Last Admin: 10/12/20 07:57 Dose: 20 mg Documented by: Sertraline HCl (Sertraline Hcl 100 Mg Tablet) 200 mg PO QAM [facility] Stop: 11/09/20 08:59 Last Admin: 10/12/20 07:57 Dose: 200 mg Documented by: Tramadol HCl (Tramadol Hcl 50 Mg Tablet) 100 mg PO TID PRN PRN Reason: Pain Stop: 11/08/20 16:07 Last Admin: 10/10/20 08:06 Dose: 100 mg Documented by: Umeclidinium/Vilanterol (Umeclidinium/Vilanterol 62.5/25mcg 7 Puffs/Inhaler) 1 puffs INH PM [facility] Stop: 11/08/20 16:03 Last Admin: 10/11/20 20:41 Dose: 1 puffs Documented by: PG Care Time/CCT Total # of Minutes Spent Total Time Spent with Patient: Total time spent is greater than 50% in coordination of care (as documented) at patient's floor/unit and/or counseling patient: Coding Diagnoses COPD (chronic obstructive pulmonary disease) J43.9 COPD type: emphysema Emphysema type: unspecified Sarcoidosis D86.9 Tobacco use disorder F17.200 Osteoarthritis of left shoulder M19.012 Osteoarthritis type: unspecified Low back pain M54.5; G89.29 Chronicity: chronic Back pain laterality: bilateral Sciatica presence: without sciatica Pulmonary embolism I27.82; I26.09 Pulmonary embolism type: other Chronicity: chronic Acute cor pulmonale presence: with acute cor pulmonale Osteoporosis M81.0 Osteoporosis type: unspecified Presence of current pathological fracture: without current pathological fracture Cor pulmonale I27.81 (1) COPD (chronic obstructive pulmonary disease) COPD type: emphysema Emphysema type: unspecified Qualified Code(s): J43.9 - Emphysema, unspecified (2) Osteoarthritis of left shoulder Osteoarthritis type: unspecified Qualified Code(s): M19.012 - Primary osteoarthritis, left shoulder (3) Low back pain Chronicity: chronic Back pain laterality: bilateral Sciatica presence: without sciatica Qualified Code(s): M54.5 - Low back pain; G89.29 - Other chronic pain (4) Pulmonary embolism Pulmonary embolism type: other Chronicity: chronic Acute cor pulmonale presence: with acute cor pulmonale Qualified Code(s): I27.82 - Chronic pulmonary embolism; I26.09 - Other pulmonary embolism with acute cor pulmonale (5) Osteoporosis Osteoporosis type: unspecified Presence of current pathological fracture: without current pathological fracture Qualified Code(s): M81.0 - Age-related osteoporosis without current pathological fracture
--- NOTE | 2020-10-12 12:54 | Discharge Summary ---
Date of Service October 12, 2020 Admission HPI Per Admitting Provider 65 YOF with past medical history of COPD, Active smoker (15/day), Pulmonary embolism (08/23), Sarcoidosis with VATS (granulomatous pneumonitis), chest wall pain, osteopetrosis, chronic sinusitis, DJD. Patient comes to the hospital for increase dyspnea for the past 2-3 days with no relief on her home therapy of nebulizers and inhalers and home oxygen. Patient reports not being able to sleep last night secondary to her dyspnea and she sat in the chair all night. Called EMS this morning to bring her to the hospital. Reportedly wheezing and hypoxic and was given steroids in route. Hospitalist service was consulted for admission following a VBG, CXR, ECG, and 2 back to back [place] alejandrabs in the [facility]. Patient is on albuterol inhalers, umeclidinium/vilanterol, Flovent inhaler for her COPD; and 10mg prednisone daily for her sarcoid and PRN nebulizers at home. She normally uses her nebulizers 1-2 x per week and has used them 2-3 times per day for past 2 days. She has also increased breathlessness walking around her house and unable to go up her stairs currently. Patient also can not recall that she took her Xeralto yesterday and reports decrease oral intake of food and water from being tired. She appears fatigued. I will get an ABG to evaluate her hypoxia; her VBG is consistent with chronic compensation. She is improved since she came in, will give her a DUO neb, admit her to med/tele and follow her breathlessness and hypoxia for a COPD exacerbation. Principal Diagnosis COPD exacerbation Discharge Exam Constitutional WD/WN, vitals as above Neck trachea midline, no thyromegaly Respiratory normal respiratory effort and + cough; no respiratory distress and no labored breathing Auscultation: + wheezes (faint, end exhalation) Cardiovascular RRR, no murmur, no edema Gastrointestinal (Abdomen) normal bowel sounds, soft, nontender, no hepatosplenomegaly Musculoskeletal no cyanosis or clubbing, extremities motor strength 5/5 Skin no rashes, warm and dry Neurologic patellar DTR's 2+ bilat, sensation intact and PERRL, EOMI, accommodation nl, no face palsy, no dysarthria Psychiatric A+Ox3, euthymic affect Lymphatic no cervical or axillary lymphadenopathy Discharge Data Allergies Allergy/AdvReac Type Severity Reaction Status Date / Time No Known Allergies Allergy Verified 10/09/20 10:44 Consultations 10/09/20 12:29 ED Decision to Admit Stat Ordered Studies 10/09/20 14:05 CT chest diagnostic wo con Routine Hospital Course (1) COPD (chronic obstructive pulmonary disease): Acute on chronic COPD exacerbation without respiratory failure. 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 PCP and rail car mechanic she has a nebulizer at home and I confirmed that she has enough albuterol continue maintenance inhalers (2) Sarcoidosis: Appears to have been stable with her rail car mechanic and her PCP care - This may also be a flare- as above increased prednisone to 40 daily - Continue supportive care - PFT's as above (3) Tobacco use disorder: Continues to smoke (prior to admission) - was interested in quitting will follow up with PCP about quitting techniques, looking into Chantix (4) Osteoarthritis of left shoulder: Continue diclofenac and Meloxicam, and her Tramadol (5) Low back pain: As above (6) Pulmonary embolism: Chronic- SCD's and Xeralto for VTE prophy (7) Osteoporosis: Patient was to start alendronate as outpatient, has not done so secondary to making her nauseated (8) Cor pulmonale: ECHO -09/30/20- Normal LV function, Mild LVH, Moderate RV systolic dysfunction, Moderate RA dilation, Trace MR - EF 60-65% diastolic dysfunction type I Total Time Total Time Spent Total Time Spent (In Minutes): 32 Discharge Plan Discharge Items Patient Disposition: Home - Self-Care Reason For Visit: DYSPNEA Discharge Diagnosis: COPD exacerbation Condition on Discharge: Good Goals: Prednisone taper follow up with pulmonology Activity: Resume your previous activity Driving/Machine Use: No limitations Weightbearing: Full weightbearing Non-emergency contact: Primary Care Provider and Media Analytics Manager Call non-emergency contact if: you have any medication questions Follow-up/Referrals: Wes Albright PA-C [Physician Retinal Angiographer] - 10/15/20 10:15 am (You have an appt with Flo Jose Ramon on October 15 at 1015am. Please arrive 15 minutes prior to your appt. It is important that you keep this appt. If for any reason this appt does not fit your schedule, please call [phone] to reschedule. ) Nichole Antunez CRNP [Primary Care Provider] - 10/15/20 12:15 pm (You have an appt with Nichole Antunez on October 15 at 1230. Please arrive 15 minutes prior to your appt time. It is important that your keep this appt. If for any reason this appt time does not fit your schedule, please call [phone] to reschedule. ) Diet: Regular Addtl Attending Provider Instructions: Medications: PREDNISONE: take 40mg daily x 5 days, then 30mg daily x 3 days, 20mg daily x 3 days, 10mg daily x 3 days COPD exacerbation: responded well to steroids and nebulizers minimal wheezing today, oxygen stable on 2L NC, recommend you wear oxygen for the next few days all the time as you recover complete Prednisone taper as above use your nebulizer 4 times a day follow up with Flo LOMBARDO Pending Studies at Discharge: No Stand-Alone Forms: My [employer], Smoking Cessation Medications and DC Order Prescriptions: New prednisone 20 mg Tablet 40 mg PO UD Qty: 19 RF: 0 Continued albuterol sulfate [Ventolin HFA] 90 mcg/actuation HFA aerosol inhaler 2 puff inhalation QID PRN (Reason: Shortness Of Breath Or Wheezing) Qty: 18 RF: 11 albuterol sulfate 2.5 mg /3 mL (0.083 %) solution for nebulization 2.5 mg INHALATION QID PRN (Reason: Shortness Of Breath Or Wheezing) Qty: 90 RF: 5 sertraline 100 mg tablet 200 mg PO QAM Qty: 60 RF: 5 buspirone 10 mg tablet 10 mg PO BID Qty: 60 RF: 11 meloxicam 7.5 mg tablet 15 mg PO DAILY Qty: 30 RF: 5 trazodone 50 mg tablet 50 mg PO HS Qty: 30 RF: 2 cyclobenzaprine 10 mg tablet 10 mg PO TID PRN (Reason: Muscle Spasm) Qty: 60 RF: 0 Xarelto 20 mg tablet 20 mg PO DAILY Qty: 90 RF: 1 Anoro Ellipta 62.5-25 mcg/actuation blister with device 1 inh inhalation QAM Qty: 60 RF: 5 tramadol 100 mg tablet 100 mg PO TID PRN (Reason: pain) Qty: 30 RF: 0 pantoprazole 40 mg tablet,delayed release (DR/EC) 40 mg PO DAILY Qty: 30 RF: 2 Flovent HFA 110 mcg/actuation HFA aerosol inhaler 2 puff inhalation BID Qty: 12 RF: 2 diclofenac sodium [Voltaren] 1 % gel 4 g topical QID Qty: 150 RF: 3 nicotine (polacrilex) 2 mg Gum 0 mg BUCCAL Q4H PRN (Reason: Nicotine Cravings) RF: 0 Discontinued amoxicillin-pot clavulanate [Augmentin] 875-125 mg tablet 1 tab PO Q12H Qty: 20 RF: 0 prednisone 10 mg tablet See Rx Instructions PO DAILY Qty: 36 RF: 0 No Action lorazepam 1 mg tablet 1 mg PO DAILY PRN (Reason: Anxiety) Qty: 30 RF: 3 Discharge Orders: Discharge Order (Routine); Ordered 10/12/20 Ordered By: Prince Blue Admission Data Admit Date/Time: 10/09/20 12:32 Attending Provider: Prince Blue Admit Provider: Jorge Pérez Primary Care Provider: Nichole Antunez Other Providers: Vaibhav Gutierrez Other Interventions: Discharge Summary Assessment (RN) Last Done: 10/12/20 13:29 Coding Level of Care Code D/C Day Management >30 mins Diagnoses COPD (chronic obstructive pulmonary disease) J43.9 COPD type: emphysema Emphysema type: unspecified Sarcoidosis D86.9 Tobacco use disorder F17.200 Osteoarthritis of left shoulder M19.012 Osteoarthritis type: unspecified Low back pain M54.5; G89.29 Back pain laterality: bilateral Chronicity: chronic Sciatica presence: without sciatica Pulmonary embolism I27.82; I26.09 Acute cor pulmonale presence: with acute cor pulmonale Chronicity: chronic Pulmonary embolism type: other Osteoporosis M81.0 Osteoporosis type: unspecified Presence of current pathological fracture: without current pathological fracture Cor pulmonale I27.81
== END 2020-10-12 14:30 | disposition home or self-care (01) | DRG 191 ==
LOC: ED 09:15 → SUATTDRO 12:32 → 2W 12:32

== ENCOUNTER 2021-01-12 07:27 | Inpatient (IN) ==
[2021-01-12] MEDS ORDERED: methylPREDNISolone 125 MG/2 ML VIAL ONE ×2 (07:33→14:45)
[2021-01-12] MEDS ORDERED: ALBUTEROL 0.083% NEBU SOLN 3 ML VIAL ONE (07:34)
[2021-01-12] MEDS ORDERED: ALBUT/IPRATROP 3MG/0.5MG NEB 3 ML VIAL ONE (07:34)
[2021-01-12] MEDS ORDERED: ALBUT/IPRATROP 3MG/0.5MG NEB 3 ML VIAL NEB ONE ×2 (07:44→09:33)
[2021-01-12] MEDS ORDERED: CEFEPIME 2,000 MG/20 ML VIAL IV STA (07:50)
[2021-01-12] MEDS ORDERED: ACETAMINOPHEN 1000 MG/100 ML IV IV STA (07:50)
[2021-01-12] MEDS ORDERED: MAGNESIUM SULFATE / D5W 1 GM/100 ML BAG IV STA (07:54)
[2021-01-12 08:04] LABS: Basophils # (auto) 0.02 K/uL (0-0.2); Basophils % (auto) 0.3 %; Eosinophils % (auto) 1.3 %; Hematocrit (blood only) 44.3 % (37-47); Hemoglobin 15.5 g/dL (12.0-16.0); Immature Granulocytes # (auto) 0.01 K/uL (0.00-0.02); Immature Granulocytes % (auto) 0.1 %; Lymphocytes # (auto) 1.37 K/uL (1.2-3.4); Lymphocytes % (auto) 17.6 %; Mean Corpuscular Hemoglobin 32.2 pg (25-34); Mean Corpuscular Volume 92.1 fL (80-100); Mean Platelet Volume 10.5 fL (7.4-10.4); Monocytes # (auto) 0.66 K/uL (0.11-0.59); Monocytes % (auto) 8.5 %; Neutrophils # (auto) 5.61 K/uL (1.4-6.5); Neutrophils % (auto) 72.2 %; Platelet Count 150 K/uL (130-400); RDW Standard Deviation 47.5 fL (36.4-46.3); Red Blood Count 4.81 M/uL (4.2-5.4); White Blood Count 7.77 K/uL (4.8-10.8)
[2021-01-12 08:05] LABS: Base Excess VBG 0.3 mEq/L; Oxygen Saturation VBG 75.5 %; pH VBG 7.37 (7.36-7.41)
--- NOTE | 2021-01-12 08:12 | XRay Report ---
XR chest 1V portable HISTORY: 65 years-old Female Dyspnea acute shortness of breath COMPARISON: Chest and rib radiographs 10/29/2020, chest CT 10/09/2020 TECHNIQUE: Portable AP view of the chest FINDINGS: Cardiac silhouette is normal. Bilateral hilar prominence with adjacent fibrosis redemonstrated. Chron ic reticular opacities of the lungs with areas of architectural distortion. Emphysema. No pneumothora x, pleural effusion, airspace consolidation or overt pulmonary edema. Progressive opacities of the le ft upper lung. Changes of the spine and left shoulder. Right shoulder total joint arthroplasty. IMPRESSION: 1. Chronic hilar enlargement with fibrotic changes compatible with patient's history of sarcoidosis. 2. There are new left upper lung opacities which may reflect progressive fibrosis versus developing p neumonia. Follow-up recommended. 3. Emphysema. ACT 112: Negative or not required by law. The above report was generated using voice recognition software. It may contain grammatical, syntax o r spelling errors. Electronically signed by: Vargas Rivers M.D. 01/12/2021 8:11 AM
[2021-01-12] MEDS ORDERED: VANCOMYCIN HCL 1,500 MG in SODIUM CHLORIDE 0.9% 500 ML IV ONE (08:27)
[2021-01-12] MEDS ORDERED: VANCOMYCIN CONSULT ACTIVE PRN (08:27)
[2021-01-12 08:30] LABS: Alanine Aminotransferase 23 U/L (12-78); Albumin Level 3.4 gm/dl (3.4-5.0); Aspartate Aminotransferase 21 U/L (15-37); BUN Creatinine Ratio 16.3 (10-20); Blood Urea Nitrogen 14 mg/dl (7-18); Calcium 8.8 mg/dl (8.5-10.1); Carbon Dioxide 27 mmol/L (21-32); Chloride 105 mmol/L (98-107); Creatinine Clr Calc Pharmacy 63.6 ml/min; Est GFR (African American) 82.8 ml/min; Est GFR (Non-African American) 71.4 ml/min; Glucose 125 mg/dl (70-99); Magnesium 2.2 mg/dl (1.8-2.4); Potassium 3.5 mmol/L (3.5-5.1); Sodium 137 mmol/L (136-145)
[2021-01-12 08:35] LABS: Albumin Globulin Ratio 0.8 (0.9-2); Alkaline Phosphatase 94 U/L (45-117); Bilirubin,Total 0.8 mg/dl (0.2-1); Globulin 4.2 gm/dl (2.5-4.0); NT Pro B Type Natriuretic Pept 137 pg/ml (0-900); Total Protein 7.6 gm/dl (6.4-8.2); Troponin I < 0.015 ng/ml (0-0.045)
[2021-01-12] MEDS ORDERED: LACTATED RINGER'S 1,000 ML IV ONE (09:29)
--- NOTE | 2021-01-12 09:36 | History & Physical Report ---
Date of Service January 12, 2021 Assessment & Plan (1) Pneumonia: 65 YOF with past medical history of COPD, Active smoker (15/day), Pulmonary embolism (08/23), Sarcoidosis with VATS (granulomatous pneumonitis), chest wall pain, osteopetrosis, chronic sinusitis, DJD. #Acute hypoxemic respiratory failure and sepsis secondary to pneumonia Patient with a past medical history of COPD with frequent exacerbations clinical history of worsening shortness of breath, fevers, chills, aches and pains, marcial hirsch presents for evaluation of worsening shortness of breath. Patient uses as needed O2 at home, requiring 4 L on presentation to the ED to maintain saturations of 90%, patient has a fever on presentation, elevated respiratory rate, tachycardic, and initially hypotensive. She received 1 L of LR as a bolus and pressures improved. Patient reports her was sick recently, question etiology of infection either bacterial versus viral, given myalgias will obtain labs for influenza. In the interim given her septic presentation will treat with broad-spectrum antibiotics and supportive care as indicated. -Blood cultures obtained and pending -Broad-spectrum coverage with cefepime and vancomycin -Added a azithromycin for atypical coverage given history of COPD -Solu-Medrol 60 mg now and then every morning -Guaifenesin/dextromethorphan every 6 hours for coughing -DuoNebs every 6 hours scheduled -Continue home inhalers -Monitor blood pressures, may repeat fluid bolus if needed #COPD Contributing to current presentation continue home meds. -Added Spiriva every morning -Continue Anoro #Sarcoidosis No history of, follows with pulmonology, likely contributing to current presentation -Management as above -If respiratory status does not improve rapidly to consider pulmonology consult #Pulmonary embolism History of (08/23) on Xarelto 20 mg nightly -Continue Xarelto #Anxiety and depression -Continue lorazepam 1 mg daily as needed -Continue trazodone 50 mg at bedtime -Continue buspirone 10 mg bid #Tobacco use Encourage patient stop smoking -Provide a nicotine patch #Chronic low back and rib pain -Continue cyclobenzaprine 10 mg 3 times daily as needed FENa: Heart healthy diet Code Status: Full code DVT PPX: On Xarelto PT/OT: Not indicated at present Case Management: Consulted Dispo: Telemetry Kyle Kelley MD PGY 3, FCM This chart was completed utilizing [employer] voice recognition software. Grammatical errors, random word insertions, pronoun errors, and in complete sentences are an occasional consequence of the system. Any questions or concerns about the content, text, or information contained within the body of this dictation should be addressed directly to the physician for clarification. (2) Acute hypoxemic respiratory failure: (3) SOB (shortness of breath): (4) COPD exacerbation: (5) Pulmonary embolism: (6) Anxiety and depression: (7) Osteoporosis: (8) Tobacco use disorder: (9) Postinflammatory pulmonary fibrosis: (10) Sepsis: History of Present Illness 65 YOF with past medical history of COPD, Active smoker (15/day), Pulmonary embolism (08/23), Sarcoidosis with VATS (granulomatous pneumonitis), chest wall pain, osteopetrosis, chronic sinusitis, DJD. Was in her usual state of health prior to 3 days ago when she experienced symptoms of worsening shortness of breath. Patient has baseline COPD on home oxygen prn she was recently on 10/12 for COPD exacerbation as well. She states she has a history of frequent COPD exacerbations, requiring frequent hospitalizations. She reports her has been sick recently, his illness did not require antibiotics, he took Mucinex and treated himself with supportive care. She believes she has the same illness endorsing shortness of breath, coughing, aches and pains, fever, headache, rhinorrhea, chills, denying nausea and vomiting. She attempted to treat herself at home with supportive therapy however this morning her symptoms became unbearable stating her presentation to the emergency department. On presentation she was borderline hypotensive 104/64, tachycardic 106, tachypneic at 30, temperature elevated to 37.7, requiring 4 L per nasal cannula to maintain saturations at 95%. Routine labs were obtained demonstrating a white count of 7.7 otherwise unremarkable Chem-7 unremarkable, lactate 1.1 liver function studies within normal limits. X-ray demonstrating chronic hilar enlar gement. There are chronic sarcoidosis, and new left upper lung opacities which may reflect progressive fibrosis versus developing pneumonia. She was started on cefepime and vancomycin, and given a liter of LR. Hospitalist service was consulted for admission On examination of the patient she was sitting up in bed receiving her nebulizer treatment. Patient related history as described above. She specifically denied any chest pressure, chest pain, calf pain. She states she has had some improvement status post nebulizer. Primary Care Provider: CLAY Davila Allergies Allergy/AdvReac Type Severity Reaction Status Date / Time No Known Allergies Allergy Verified 01/12/21 09:27 Home Medications Medication Instructions Recorded Confirmed Type albuterol sulfate 90 mcg/actuation 2 puff INHALATION QID PRN #18 gm 02/17/20 01/12/21 Rx aerosol inhaler albuterol sulfate 2.5 mg INHALATION QID PRN #90 ml 02/19/20 01/12/21 Rx buspirone 10 mg tablet 10 mg PO BID #60 tab 03/20/20 01/12/21 Rx cyclobenzaprine 10 mg tablet 10 mg PO TID PRN #60 tab 08/19/20 01/12/21 Rx umeclidinium 62.5 mcg-vilanterol 1 inh INHALATION QAM #60 ea 09/09/20 01/12/21 Rx 25 mcg/actuation powdr for inhalation fluticasone propionate 110 2 puff INHALATION BID #12 g 09/30/20 01/12/21 Rx mcg/actuation HFA aerosol inhaler trazodone 50 mg tablet 50 mg PO HS #90 tab 10/29/20 01/12/21 Rx Oxygen Home #1 ea 01/07/21 01/07/21 Rx nebulizer accessories #1 ea 01/07/21 01/07/21 Rx Xarelto 20 mg PO HS 01/12/21 01/12/21 History diclofenac sodium [Voltaren 4 g TOPICAL DAILY PRN 01/12/21 01/12/21 History Arthritis Pain] lorazepam [Ativan] 1 mg PO DAILY PRN 01/12/21 01/12/21 History pantoprazole 40 mg PO DAILYBB 01/12/21 01/12/21 History Past Med/Surg History Medical History Acute and chronic respiratory failure with hypoxia Anxiety Anxiety and depression COPD (chronic obstructive pulmonary disease) + rare O2 PRN (no use x 1 year) COPD exacerbation Depression Pulmonary embolism Sarcoidosis stable Surgical History H/O arthroplasty H/O hysterectomy for benign disease (10/02/12) History of hip replacement Left PREETI: 09/11/17: SAB x 1 at L3-L4 at [facility] History of right shoulder replacement Hx of colonoscopy Hx of elbow surgery RIGHT Family History Father Myocardial infarction Brother Anxiety COPD (chronic obstructive pulmonary disease) Daughter Anxiety Sister Breast cancer Other Diabetes Kidney disease Denies family history of Ovarian cancer Prostate cancer Colorectal cancer Social History Smoking Status: Current every day smoker Tobacco Type: Cigarettes Cigarettes Per Day: 15; Second Hand Exposure: No; Do You Dip or Chew Tobacco: No; Tobacco Cessation Education Requested by Patient: No Hx Alcohol Use: No Hx Substance Use: No Preferred Language: Kinyarwanda Communication Ability: Effective Visual Impairment: No Limitations 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: No Beliefs That Will Affect Care: None marital status: Current Living Situation: Spouse Other Information That Helps Us Care for You: No Feels Safe at Home: Yes Safety Concerns: Feels Safe At This Time Assistive Devices: Denture - Upper, Denture - Lower and Oxygen - Continuous Physical Exam Physical Exam: General: Sitting on her bed receiving a nebulizer treatment HEENT: Normocephalic atraumatic Neck: Normal visual inspection Cardiac: Tachycardic with regular rhythm I did not appreciate any significant murmurs rubs or gallops, normal S1, normal S2, negative pedal edema, negative calf tenderness Respiratory: Diffuse wheezing throughout all lung khan, did not appreciate any crackles, rales, intermittent rhonchi. Increased work of breathing, respiratory distress present Neuro: Alert and oriented x4 Psych: Calm and cooperative with the interview Results & Data Results & Data ([facility]) Vital Signs (Past 12 Hours) Vital Signs Temp Pulse Pulse Resp BP Pulse Ox 01/12/21 09:17 106 H 30 H 95 01/12/21 09:15 117 H 30 H 95 01/12/21 09:00 108 H 28 H 104/64 97 01/12/21 08:30 112 H 31 H 116/64 97 01/12/21 08:06 96 01/12/21 07:50 112 H 34 H 95 01/12/21 07:36 37.7 C H 114 H 36 H 132/72 98 Laboratory Results 01/12/21 01/12/21 01/12/21 Range/Units 08:15 08:15 07:55 WBC (4.8-10.8) K/uL RBC (4.2-5.4) M/uL Hgb (12.0-16.0) g/dL Hct (37-47) % MCV (80-100) fL MCH (25-34) pg MCHC (32-36) g/dL RDW Std Deviation (36.4-46.3) fL RDW Coeff of Perry (11.5-14.5) % Plt Count (130-400) K/uL MPV (7.4-10.4) fL Immature Gran % (Auto) % Neut % (Auto) % Lymph % (Auto) % [place] % (Auto) % Eos % (Auto) % Baso % (Auto) % Neut # (Auto) (1.4-6.5) K/uL Lymph # (Auto) (1.2-3.4) K/uL [place] # (Auto) (0.11-0.59) K/uL Eos # (Auto) (0-0.5) K/uL Baso # (Auto) (0-0.2) K/uL Immature Gran # (Auto) (0.00-0.02) K/uL VBG pH (7.36-7.41) VBG pCO2 (38-50) mmHg VBG pO2 mmHg VBG HCO3 mmol/L VBG O2 Saturation % VBG Base Excess mEq/L Barometric Pressure mm/Hg Sodium (136-145) mmol/L Potassium (3.5-5.1) mmol/L Chloride (98-107) mmol/L Carbon Dioxide (21-32) mmol/L Anion Gap (3-11) BUN (7-18) mg/dl Creatinine (0.6-1.2) mg/dl Est Cr Clr Drug Dosing ml/min Est GFR ( Amer) ml/min Est GFR (Non-Af Amer) ml/min BUN/Creatinine Ratio (10-20) Glucose (70-99) mg/dl Lactate 1.1 (0.4-2.0) mmol/L Calcium (8.5-10.1) mg/dl Magnesium (1.8-2.4) mg/dl Total Bilirubin (0.2-1) mg/dl AST (15-37) U/L ALT (12-78) U/L Alkaline Phosphatase (45-117) U/L Troponin I (0-0.045) ng/ml NT-Pro-B Natriuret Pep (0-900) pg/ml Total Protein (6.4-8.2) gm/dl Albumin (3.4-5.0) gm/dl Globulin (2.5-4.0) gm/dl Albumin/Globulin Ratio (0.9-2) COVID-19 Eval Order Covid19 at [facility] SARS-CoV-2 (PCR) NEGATIVE (Negative) 01/12/21 01/12/21 01/12/21 Range/Units 07:55 07:52 07:52 WBC 7.77 (4.8-10.8) K/uL RBC 4.81 (4.2-5.4) M/uL Hgb 15.5 (12.0-16.0) g/dL Hct 44.3 (37-47) % MCV 92.1 (80-100) fL MCH 32.2 (25-34) pg MCHC 35.0 (32-36) g/dL RDW Std Deviation 47.5 H (36.4-46.3) fL RDW Coeff of Perry 14.0 (11.5-14.5) % Plt Count 150 (130-400) K/uL MPV 10.5 H (7.4-10.4) fL Immature Gran % (Auto) 0.1 % Neut % (Auto) 72.2 % Lymph % (Auto) 17.6 % [place] % (Auto) 8.5 % Eos % (Auto) 1.3 % Baso % (Auto) 0.3 % Neut # (Auto) 5.61 (1.4-6.5) K/uL Lymph # (Auto) 1.37 (1.2-3.4) K/uL [place] # (Auto) 0.66 H (0.11-0.59) K/uL Eos # (Auto) 0.10 (0-0.5) K/uL Baso # (Auto) 0.02 (0-0.2) K/uL Immature Gran # (Auto) 0.01 (0.00-0.02) K/uL VBG pH 7.37 (7.36-7.41) VBG pCO2 47 (38-50) mmHg VBG pO2 37 mmHg VBG HCO3 26 mmol/L VBG O2 Saturation 75.5 % VBG Base Excess 0.3 mEq/L Barometric Pressure 736.8 mm/Hg Sodium 137 (136-145) mmol/L Potassium 3.5 (3.5-5.1) mmol/L Chloride 105 (98-107) mmol/L Carbon Dioxide 27 (21-32) mmol/L Anion Gap 5.0 (3-11) BUN 14 (7-18) mg/dl Creatinine 0.85 (0.6-1.2) mg/dl Est Cr Clr Drug Dosing 63.6 ml/min Est GFR ( Amer) 82.8 ml/min Est GFR (Non-Af Amer) 71.4 ml/min BUN/Creatinine Ratio 16.3 (10-20) Glucose 125 H (70-99) mg/dl Lactate (0.4-2.0) mmol/L Calcium 8.8 (8.5-10.1) mg/dl Magnesium 2.2 (1.8-2.4) mg/dl Total Bilirubin 0.8 (0.2-1) mg/dl AST 21 (15-37) U/L ALT 23 (12-78) U/L Alkaline Phosphatase 94 (45-117) U/L Troponin I < 0.015 (0-0.045) ng/ml NT-Pro-B Natriuret Pep 137 (0-900) pg/ml Total Protein 7.6 (6.4-8.2) gm/dl Albumin 3.4 (3.4-5.0) gm/dl Globulin 4.2 H (2.5-4.0) gm/dl Albumin/Globulin Ratio 0.8 L (0.9-2) COVID-19 Eval Order SARS-CoV-2 (PCR) (Negative) Medications Administered Current Inpatient Medications Acetaminophen (Acetaminophen 500 Mg Tab) 1,000 mg PO Q8 PRN PRN Reason: Pain or Fever Stop: 02/11/21 10:33 Albuterol (Albut/Ipratrop 3mg/0.5mg Neb 3 Ml Vial) 3 ml NEB Q4R HEATHER Stop: 02/11/21 10:59 Azithromycin (Azithromycin 250 Mg Tab) 250 mg PO QAM HEATHER Stop: 01/20/21 08:59 Enoxaparin Sodium (Enoxaparin Inj 40 Mg/0.4 Ml Syr) 40 mg SQ Q24H HEATHER Stop: 02/11/21 10:44 Guaifenesin/Dextromethorphan (Guaifenesin/Dextrom Syrup 200mg/20mg 10ml Udc) 10 ml PO Q6H PRN PRN Reason: cough Stop: 02/11/21 10:44 Vancomycin HCl 1,500 mg/ (Sodium Chloride) 530 mls @ 200 mls/hr IV NOW ONE Stop: 01/12/21 11:05 Last Admin: 01/12/21 09:05 Dose: 200 mls/hr Documented by: Azithromycin 500 mg/ Dextrose 255 mls @ 125 mls/hr IV ONE ONE Stop: 01/12/21 12:42 Methylprednisolone (Methylprednisolone 125 Mg/2 Ml Vial) 60 mg IV QAM [facility] Stop: 02/11/21 10:44 Miscellaneous Information (Vancomycin Consult Active) 1 ea N/A UD PRN PRN Reason: Consult Stop: 02/11/21 08:26 Ondansetron HCl (Ondansetron Inj 2 Mg/Ml 2 Ml Vial) 4 mg IV Q6H PRN PRN Reason: Nausea Stop: 02/11/21 10:33 Polyethylene Glycol (Polyethylene (Miralax) 17 Gm Pack) 17 gm PO BID HEATHER Stop: 02/11/21 10:44 Tiotropium [place] (Tiotropium [place] 5 Puff/90 Mcg Inh) 1 puffs INH QAM HEATHER Stop: 02/11/21 10:44 Code Status & VTE Plan Code Status Full code VTE Prophylaxis Plan VTE Prophylaxis will be ordered: Yes Supervising Physician Co-Signing Physician Notes Attending attestation Pt seen and examined in concert with Dr. Kelley. In agreement with the documente d findings as noted in the resident documentation with any exceptions or additions as noted here. Improving shortness of breath still significantly worse than baseline but tolerating therapy well. Previous h/o smoking cessation x 13 years with relatively recent restart, motivated to quit. Barriers: multiple social contacts smoking. Previously did well on chantix and would like to restart if insurance can cover. On examination, S1/S2 nl RRR no MCG. Visibly increased work of breathing with diffuse wheezing without localizable rales. Abd NT/ND BS+ve Acute on chronic hypoxic respiratory failure - baseline O2 need 2LNC with ambulation. Continue O2 and wean as tolerated. Addressing underlying disease as above Sepsis secondary to PNA with COPD exacerbation, h/o sarcoidosis - f/u BCx - continue steroid therapy, IV abx and nebs scheduled. Strongly encourage flutter valve/IS and supportive care. Low threshold for pulm C/S 2/2 h/o sarcoidosis Pulmonary embolism - continue xarelto Smoking cessation - counseling provided and continue nicotine patch, will work insurance and see if can do chantix on/following discharge. Else see resident documentation as noted. Resident Activity Tracking Resident Involvement: Resident Care Provided Care Provided: Adult Hospital Medicine (1) Osteoporosis Osteoporosis type: unspecified Presence of current pathological fracture: without current pathological fracture Qualified Code(s): M81.0 - Age-related osteoporosis without current pathological fracture (2) Pulmonary embolism Acute cor pulmonale presence: with acute cor pulmonale Chronicity: chronic Pulmonary embolism type: other Qualified Code(s): I27.82 - Chronic pulmonary embolism; I26.09 - Other pulmonary embolism with acute cor pulmonale
--- NOTE | 2021-01-12 10:26 | Emergency Department Note ---
Impression & Plan Pneumonia, Acute respiratory distress ED Provider Note INFORMANT: Patient ED PROVIDER(S): Milton Torres MD CHIEF COMPLAINT: Shortness of breath PLAN: Disposition: Admitted Condition: Guarded Outpatient prescription management: none Referral: None MEDICAL DECISION MAKING: Patient presented acutely short of breath. She has a history of COPD and sarcoid. She is still smoking. She was significantly wheezy and had increased work of breathing. She was in distress. She received an hour-long breathing treatment. The patient noted she would not tolerate BiPAP. This was considered multiple times. She seemed to improve somewhat with the hour-long treatment although about 40 minutes into it she did take this off. We had to finish the treatment with the standard nebulizer piping. The patient had findings on chest x-ray concerning for pneumonia. She was covered with broad-spectrum antibiotics. She was still wheezing and short of breath. A second hour-long treatment using the nebulizer piping was ordered. I did attempt to have respiratory apply high flow oxygen however the patient refused. Triage Nursing notes reviewed and agree them. Vital Signs: reviewed and remarkable for tachypnea Differential diagnosis: Reactive airway disease, pneumonia, pneumothorax, COPD, CHF, infections, cardiac ischemia, pulmonary embolism, musculoskeletal, gastrointestinal, as well as other pathologies. Diagnostics interpreted by me: ECG: Twelve-lead ECG reveals sinus tachycardia at 113 bpm. Right axis deviation. Nonspecific ST abnormality present. No ST elevation. No PVCs. Cardiac Monitoring: Cardiac monitoring ordered by me: The patient was placed on continuous cardiac monitoring and observed. It revealed a normal sinus rhythm at 98 beats per minute without ectopy or evidence of dysrhythmia. Imaging studies: Chest x-ray concerning for left-sided infiltrate. I refer you to the EMR for further details. HPI: The patient is a 65 year old female who presents to the Emergency Room with complaints of shortness of breath. This started 2 days ago and is worsening. The patient has a history of pulmonary fibrosis and COPD. She is a smoker. She was using her nebulizers at home without much relief. EMS was summoned. She was very tight and had significant wheezing. She was given a DuoNeb as well as Solu-Medrol. She felt minimally better with this. Patient denies any pain. Pt denies LOC, headache, fevers, chills, diaphoresis, visual changes, neck pain, chest pain, nausea, vomiting, abdominal pain, back pain, melena, hematochezia, urinary symptoms, numbness, weakness, lymphadenopathy, rash, or other complaints. ROS: See above HPI for pertinent positives & negatives. A total of 10 systems reviewed and were otherwise negative. PAST MEDICAL HISTORY:See Below , COPD, pulmonary fibrosis, sarcoidosis PAST SURGICAL HISTORY:See Below, FAMILY HISTORY:See Below SOCIAL HISTORY:See Below, . Smoker. HOME MEDICATIONS:See Below ALLERGIES:See Below VITALS:See Below PHYSICAL EXAMINATION: GENERAL: Awake, alert, very dyspneic appearing, in no distress HENT: Normocephalic, atraumatic. Oropharynx unremarkable. EYES: Normal conjunctiva. Sclera non-icteric. NECK: Inspection normal. Non-tender. Supple. No nuchal rigidity. FROM. No masses. RESPIRATORY: Significant wheezes. No rales. Significantly increased respiratory effort. CARDIAC: Normal rate. Normal rhythm. No murmurs. No rubs. Extremities warm and well perfused. Pulses equal. No JVD. GI: Soft, non-distended. No tenderness to palpation. No rebound or guarding. No masses. RECTAL: Deferred. MUSCULOSKELETAL: Atraumatic. Chest examination reveals no tenderness. The back is symmetrical on inspection without obvious abnormality. There is no CVA tenderness to palpation. No joint edema. LOWER EXTREMITIES: Calves are equal size bilaterally and non-tender. No edema. No discoloration. NEURO: Normal sensorium. No sensory or motor deficits noted. SKIN: No rash or jaundice noted. CRITICAL CARE: I have personally spent greater than 40 minutes of critical care time in the direct management of this patient. This includes bedside care, interpretation of diagnostic studies, and testing, discussion with consultants, patient, and other required patient management activities. These minutes are in excess of all separately billable procedures. Milton Torres MD Past Med/Surg History Medical History Acute and chronic respiratory failure with hypoxia Anxiety Anxiety and depression COPD (chronic obstructive pulmonary disease) + rare O2 PRN (no use x 1 year) COPD exacerbation Depression Pulmonary embolism Sarcoidosis stable Surgical History H/O arthroplasty H/O hysterectomy for benign disease (10/02/12) History of hip replacement Left PREETI: 09/11/17: SAB x 1 at L3-L4 at [facility] History of right shoulder replacement Hx of colonoscopy Hx of elbow surgery RIGHT Family History Father Myocardial infarction Brother Anxiety COPD (chronic obstructive pulmonary disease) Daughter Anxiety Sister Breast cancer Other Diabetes Kidney disease Denies family history of Ovarian cancer Prostate cancer Colorectal cancer Social History Smoking Status: Former smoker Tobacco Type: Cigarettes Cigarettes Per Day: 20; Second Hand Exposure: No; Hx Alcohol Use: No Hx Substance Use: No Preferred Language: Hebrew Communication Ability: Effective Visual Impairment: No Limitations Seismograph Recorder Required: No Beliefs That Will Affect Care: None marital status: Current Living Situation: Spouse Feels Safe at Home: Yes Assistive Devices: Oxygen - Continuous Allergies Allergies Allergy/AdvReac Type Severity Reaction Status Date / Time No Known Allergies Allergy Verified 01/12/21 09:27 Home Meds Home Medications Medication Instructions Recorded Confirmed Xarelto 20 mg PO HS 01/12/21 01/12/21 diclofenac sodium [Voltaren 4 g TOPICAL DAILY PRN 01/12/21 01/12/21 Arthritis Pain] lorazepam [Ativan] 1 mg PO DAILY PRN 01/12/21 01/12/21 pantoprazole 40 mg PO DAILYBB 01/12/21 01/12/21 Previous Rx's Medication Instructions Recorded albuterol sulfate 90 mcg/actuation 2 puff INHALATION QID PRN #18 gm 02/17/20 aerosol inhaler albuterol sulfate 2.5 mg INHALATION QID PRN #90 ml 02/19/20 buspirone 10 mg tablet 10 mg PO BID #60 tab 03/20/20 cyclobenzaprine 10 mg tablet 10 mg PO TID PRN #60 tab 08/19/20 umeclidinium 62.5 mcg-vilanterol 1 inh INHALATION QAM #60 ea 09/09/20 25 mcg/actuation powdr for inhalation fluticasone propionate 110 2 puff INHALATION BID #12 g 09/30/20 mcg/actuation HFA aerosol inhaler trazodone 50 mg tablet 50 mg PO HS #90 tab 10/29/20 Oxygen Home #1 ea 01/07/21 nebulizer accessories #1 ea 01/07/21 Results & Data (ED) Vital Signs Vital Signs - 24 hr 01/12/21 07:36 01/12/21 07:50 01/12/21 08:06 Temperature 37.7 C H Temperature Source Oral Pulse Rate 114 H Pulse Rate [Right Finger] 112 H Pulse Rate from SpO2 Sensor Pulse Rhythm Regular Pulse Strength Normal Respiratory Rate 36 H 34 H Respiratory Effort / Characteristics Grunting Labored Short of Breath Spontaneous Labored Short of Breath Respiratory Depth Retractive Respiratory Pattern See-Saw Blood Pressure 132/72 Blood Pressure Mean 92 Blood Pressure Position Sitting Pulse Oximetry 98 95 96 Oxygen Delivery Method Nasal Cannula Nasal Cannula Nasal Cannula Oxygen Flow Rate 4 4 4 Fraction of Inspired Oxygen Sepsis Recent Fever Within 48 Hours Yes Sepsis New/Unexplained Change in Mental Status N/A Sepsis Action Taken by Nursing No Action Required 01/12/21 08:30 01/12/21 09:00 01/12/21 09:15 Temperature Temperature Source Pulse Rate 112 H 108 H Pulse Rate [Right Finger] 117 H Pulse Rate from SpO2 Sensor 114 H 108 H Pulse Rhythm Pulse Strength Respiratory Rate 31 H 28 H 30 H Respiratory Effort / Characteristics Spontaneous Labored Respiratory Depth Respiratory Pattern Blood Pressure 116/64 104/64 Blood Pressure Mean 81 77 Blood Pressure Position Pulse Oximetry 97 97 95 Oxygen Delivery Method Nasal Cannula Nasal Cannula High Flow Nasal Cannula Oxygen Flow Rate 4 4 25 Fraction of Inspired Oxygen 40 Sepsis Recent Fever Within 48 Hours Sepsis New/Unexplained Change in Mental Status Sepsis Action Taken by Nursing 01/12/21 09:17 01/12/21 09:39 01/12/21 10:30 Temperature Temperature Source Pulse Rate Pulse Rate [Right Finger] 106 H 105 H Pulse Rate from SpO2 Sensor 116 H Pulse Rhythm Pulse Strength Respiratory Rate 30 H 28 H Respiratory Effort / Characteristics Spontaneous Short of Breath Respiratory Depth Respiratory Pattern Blood Pressure 146/106 H Blood Pressure Mean 119 Blood Pressure Position Pulse Oximetry 95 96 98 Oxygen Delivery Method Nasal Cannula Nasal Cannula Nasal Cannula Oxygen Flow Rate 4 4 4 Fraction of Inspired Oxygen Sepsis Recent Fever Within 48 Hours Sepsis New/Unexplained Change in Mental Status Sepsis Action Taken by Nursing Laboratory Data Result diagrams: 01/12/21 07:52 01/12/21 07:52 Lab Results 01/12/21 01/12/21 01/12/21 Range/Units 07:52 07:52 07:55 WBC 7.77 (4.8-10.8) K/uL RBC 4.81 (4.2-5.4) M/uL Hgb 15.5 (12.0-16.0) g/dL Hct 44.3 (37-47) % MCV 92.1 (80-100) fL MCH 32.2 (25-34) pg MCHC 35.0 (32-36) g/dL RDW Std Deviation 47.5 H (36.4-46.3) fL RDW Coeff of [place] 14.0 (11.5-14.5) % Plt Count 150 (130-400) K/uL MPV 10.5 H (7.4-10.4) fL Immature Gran % (Auto) 0.1 % Neut % (Auto) 72.2 % Lymph % (Auto) 17.6 % [place] % (Auto) 8.5 % Eos % (Auto) 1.3 % Baso % (Auto) 0.3 % Neut # (Auto) 5.61 (1.4-6.5) K/uL Lymph # (Auto) 1.37 (1.2-3.4) K/uL [place] # (Auto) 0.66 H (0.11-0.59) K/uL Eos # (Auto) 0.10 (0-0.5) K/uL Baso # (Auto) 0.02 (0-0.2) K/uL Immature Gran # (Auto) 0.01 (0.00-0.02) K/uL VBG pH 7.37 (7.36-7.41) VBG pCO2 47 (38-50) mmHg VBG pO2 37 mmHg VBG HCO3 26 mmol/L VBG O2 Saturation 75.5 % VBG Base Excess 0.3 mEq/L Barometric Pressure 736.8 mm/Hg Sodium 137 (136-145) mmol/L Potassium 3.5 (3.5-5.1) mmol/L Chloride 105 (98-107) mmol/L Carbon Dioxide 27 (21-32) mmol/L Anion Gap 5.0 (3-11) BUN 14 (7-18) mg/dl Creatinine 0.85 (0.6-1.2) mg/dl Est Cr Clr Drug Dosing 63.6 ml/min Est GFR ( Amer) 82.8 ml/min Est GFR (Non-Af Amer) 71.4 ml/min BUN/Creatinine Ratio 16.3 (10-20) Glucose 125 H (70-99) mg/dl Lactate (0.4-2.0) mmol/L Calcium 8.8 (8.5-10.1) mg/dl Magnesium 2.2 (1.8-2.4) mg/dl Total Bilirubin 0.8 (0.2-1) mg/dl AST 21 (15-37) U/L ALT 23 (12-78) U/L Alkaline Phosphatase 94 (45-117) U/L Troponin I < 0.015 (0-0.045) ng/ml NT-Pro-B Natriuret Pep 137 (0-900) pg/ml Total Protein 7.6 (6.4-8.2) gm/dl Albumin 3.4 (3.4-5.0) gm/dl Globulin 4.2 H (2.5-4.0) gm/dl Albumin/Globulin Ratio 0.8 L (0.9-2) COVID-19 Eval Order SARS-CoV-2 (PCR) (Negative) 01/12/21 01/12/21 01/12/21 Range/Units 07:55 08:15 08:15 WBC (4.8-10.8) K/uL RBC (4.2-5.4) M/uL Hgb (12.0-16.0) g/dL Hct (37-47) % MCV (80-100) fL MCH (25-34) pg MCHC (32-36) g/dL RDW Std Deviation (36.4-46.3) fL RDW Coeff of [place] (11.5-14.5) % Plt Count (130-400) K/uL MPV (7.4-10.4) fL Immature Gran % (Auto) % Neut % (Auto) % Lymph % (Auto) % [place] % (Auto) % Eos % (Auto) % Baso % (Auto) % Neut # (Auto) (1.4-6.5) K/uL Lymph # (Auto) (1.2-3.4) K/uL [place] # (Auto) (0.11-0.59) K/uL Eos # (Auto) (0-0.5) K/uL Baso # (Auto) (0-0.2) K/uL Immature Gran # (Auto) (0.00-0.02) K/uL VBG pH (7.36-7.41) VBG pCO2 (38-50) mmHg VBG pO2 mmHg VBG HCO3 mmol/L VBG O2 Saturation % VBG Base Excess mEq/L Barometric Pressure mm/Hg Sodium (136-145) mmol/L Potassium (3.5-5.1) mmol/L Chloride (98-107) mmol/L Carbon Dioxide (21-32) mmol/L Anion Gap (3-11) BUN (7-18) mg/dl Creatinine (0.6-1.2) mg/dl Est Cr Clr Drug Dosing ml/min Est GFR ( Amer) ml/min Est GFR (Non-Af Amer) ml/min BUN/Creatinine Ratio (10-20) Glucose (70-99) mg/dl Lactate 1.1 (0.4-2.0) mmol/L Calcium (8.5-10.1) mg/dl Magnesium (1.8-2.4) mg/dl Total Bilirubin (0.2-1) mg/dl AST (15-37) U/L ALT (12-78) U/L Alkaline Phosphatase (45-117) U/L Troponin I (0-0.045) ng/ml NT-Pro-B Natriuret Pep (0-900) pg/ml Total Protein (6.4-8.2) gm/dl Albumin (3.4-5.0) gm/dl Globulin (2.5-4.0) gm/dl Albumin/Globulin Ratio (0.9-2) COVID-19 Eval Order Covid19 at [facility] SARS-CoV-2 (PCR) NEGATIVE (Negative) Administered Medications Albuterol (Albut/Ipratrop 3mg/0.5mg Neb 3 Ml Vial) 3 ml NEB Q4R HAETHER Stop: 02/11/21 14:59 Last Admin: 01/12/21 15:34 Dose: 3 ml Documented by: [id number] Discontinued Medications Acetaminophen (Acetaminophen 1000 Mg/100 Ml Iv) 1,000 mg IV NOW STA Stop: 01/12/21 07:51 Last Admin: 01/12/21 08:00 Dose: 1,000 mg Documented by: [id number] Albuterol (Albut/Ipratrop 3mg/0.5mg Neb 3 Ml Vial) 12 ml NEB ONE ONE Stop: 01/12/21 07:45 Last Admin: 01/12/21 07:49 Dose: 12 ml Documented by: [id number] Albuterol (Albut/Ipratrop 3mg/0.5mg Neb 3 Ml Vial) 12 ml NEB ONE ONE Stop: 01/12/21 09:34 Last Admin: 01/12/21 09:39 Dose: 12 ml Documented by: [id number] Enoxaparin Sodium (Enoxaparin Inj 40 Mg/0.4 Ml Syr) 40 mg SQ Q24H HEATHER Stop: 02/11/21 10:44 Last Admin: 01/12/21 14:49 Dose: Not Given Documented by: [id number] Cefepime HCl (Maxipime) 2,000 mg in 20 mls @ 5 mls/min IV NOW STA; Protocol Stop: 01/12/21 07:53 Last Admin: 01/12/21 08:13 Dose: 5 mls/min Documented by: [id number] Magnesium Sulfate/Dextrose (Magnesium Sulfate / D5w) 1 gm in 100 mls @ 100 mls/hr IV NOW STA Stop: 01/12/21 08:53 Last Infusion: 01/12/21 08:30 Dose: 0 mls/hr Documented by: [id number] Admin: 01/12/21 08:00 Dose: 100 mls/hr Documented by: [id number] Vancomycin HCl 1,500 mg/ (Sodium Chloride) 530 mls @ 200 mls/hr IV NOW ONE Stop: 01/12/21 11:05 Last Infusion: 01/12/21 11:14 Dose: 0 mls/hr Documented by: [id number] Admin: 01/12/21 09:05 Dose: 200 mls/hr Documented by: [id number] Lactated Ringer's (Lr) 1,000 mls @ 999 mls/hr IV .Q1H1M ONE Stop: 01/12/21 10:29 Last Infusion: 01/12/21 11:05 Dose: 0 mls/hr Documented by: [id number] Admin: 01/12/21 10:00 Dose: 999 mls/hr Documented by: [id number] Methylprednisolone (Methylprednisolone 125 Mg/2 Ml Vial) 60 mg IV ONE STA Stop: 01/12/21 12:36 Last Admin: 01/12/21 14:48 Dose: 60 mg Documented by: [id number] Nicotine (Nicotine 14 Mg/24 Hr Patch) 14 mg TD ONE STA Stop: 01/12/21 12:37 Last Admin: 01/12/21 14:48 Dose: 14 mg Documented by: [id number] Polyethylene Glycol (Polyethylene (Miralax) 17 Gm Pack) 17 gm PO ONE STA Stop: 01/12/21 12:40 Last Admin: 01/12/21 14:48 Dose: 17 gm Documented by: [id number] Imaging Data Radiologist's Impression: Chest X-Ray 01/12/21 07:49 XR chest 1V portable HISTORY: 65 years-old Female Dyspnea acute shortness of breath COMPARISON: Chest and rib radiographs 10/29/2020, chest CT 10/09/2020 TECHNIQUE: Portable AP view of the chest FINDINGS: Cardiac silhouette is normal. Bilateral hilar prominence with adjacent fibrosis redemonstrated. Chronic reticular opacities of the lungs with areas of architectural distortion. Emphysema. No pneumothorax, pleural effusion, airspace consolidation or overt pulmonary edema. Progressive opacities of the left upper lung. Changes of the spine and left shoulder. Right shoulder total joint arthroplasty. IMPRESSION: 1. Chronic hilar enlargement with fibrotic changes compatible with patient's history of sarcoidosis. 2. There are new left upper lung opacities which may reflect progressive fibrosis versus developing pneumonia. Follow-up recommended. 3. Emphysema. ACT 112: Negative or not required by law. The above report was generated using voice recognition software. It may contain grammatical, syntax or spelling errors. Electronically signed by: Vargas Rivers M.D. 01/12/2021 8:11 AM Discharge Plan Visit Data Chief Complaint: Shortness of Breath/Dyspnea Stated Complaint: SOB ED Provider: Milton Torres Discharge Problem: Pneumonia, Acute respiratory distress Patient Disposition: Admitted As Inpatient Discharge Instructions Interventions: ED Discharge Assessment Last Done: 01/12/21 15:50
[2021-01-12] MEDS ORDERED: ONDANSETRON INJ 2 MG/ML 2 ML VIAL IV PRN (10:34)
[2021-01-12] MEDS ORDERED: ACETAMINOPHEN 500 MG TAB PO PRN (10:34)
[2021-01-12] MEDS ORDERED: guaiFENesin/DEXTROM SYRUP 200MG/20MG 10ML UDC PO PRN (10:40)
[2021-01-12] MEDS ORDERED: ENOXAPARIN INJ 40 MG/0.4 ML SYR SQ SCH (10:45)
[2021-01-12] MEDS ORDERED: CEFEPIME CONSULT ACTIVE PRN (10:59)
[2021-01-12] MEDS ORDERED: CEFEPIME 500 MG in SYRINGE 0 ML IV SCH (11:00)
[2021-01-12] MEDS ORDERED: methylPREDNISolone 125 MG/2 ML VIAL IV STA (12:35)
[2021-01-12] MEDS ORDERED: NICOTINE 14 MG/24 HR PATCH TD STA (12:36)
[2021-01-12] MEDS ORDERED: AZITHROMYCIN 500 MG in DEXTROSE 5% 250 ML IV STA (12:36)
[2021-01-12] MEDS ORDERED: ceFAZolin 2000MG 2,000 MG/15 ML SYR IV STA (12:38)
[2021-01-12] MEDS ORDERED: POLYETHYLENE (MIRALAX) 17 GM PACK PO STA (12:39)
[2021-01-12] MEDS ORDERED: UMECLIDINIUM BROMIDE 62.5MCG/BLISTER 7 PUFFS/INHALER INH STA (12:41)
[2021-01-12 12:57] LABS: Influenza A virus by PCR Negative (Negative); Influenza B virus by PCR Negative (Negative)
[2021-01-12] MEDS ORDERED: NICOTINE 14 MG/24 HR PATCH TD ONE (14:45)
[2021-01-12] MEDS ORDERED: POLYETHYLENE (MIRALAX) 17 GM PACK ONE (14:45)
[2021-01-12] MEDS ORDERED: DICLOFENAC SOD 1% GEL 100 GM TUBE EXT PRN (15:22)
[2021-01-12] MEDS: ALBUT/IPRATROP 3MG/0.5MG NEB 3 ML VIAL NEB SCH ×2 (15:34→18:12)
[2021-01-12] MEDS ORDERED: CYCLOBENZAPRINE HCL 10 MG TAB PO PRN (15:41)
[2021-01-12] MEDS: UMECLIDINIUM/VILANTEROL 62.5/25MCG 7 PUFFS/INHALER INH SCH (16:33)
[2021-01-12] MEDS: FLUTICASONE FUROATE 200MCG 14 PUFFS/INHALER INH SCH (16:34)
[2021-01-12 17:57] LABS: Appearance Urine Clear (Clear); Bacteria Urine Automated Negative (Negative); Bilirubin Urine Negative (Negative); Blood Urine Trace (Negative); Color Urine Yellow; Glucose Urine UA 3+ (Negative); Ketones Urine Trace (Negative); Leukocyte Esterase Urine Negative (Negative); Nitrite Urine Negative (Negative); Protein Urine 2+ (Negative); RBC Urine Automated 0-4 /hpf (0-4); Specific Gravity Urine 1.025 (1.000-1.030); Urobilinogen Urine Negative (Negative); pH Urine 5.5 (4.5-7.5)
[2021-01-12] MEDS: CEFEPIME 2,000 MG in SYRINGE 0 ML IV SCH (18:01)
--- NOTE | 2021-01-12 18:28 | Electrocardiogram Report ---
Test Reason : Blood Pressure : / mmHG Vent. Rate : 113 BPM Atrial Rate : 113 BPM P-R Int : 132 ms QRS Dur : 070 ms QT Int : 304 ms P-R-T Axes : 075 112 075 degrees QTc Int : 416 ms Poor data quality, interpretation may be adversely affected Sinus tachycardia Right axis deviation Nonspecific ST and T wave abnormality Abnormal ECG When compared with ECG of 12-JAN-2021 07:35, (unconfirmed) Premature ventricular complexes are no longer Present Confirmed by Colin Ceron ([id number] on 01/12/2021 6:28:19 PM Referred By: Confirmed By:Mario Ceron
[2021-01-12] MEDS: busPIRone 5 MG TAB PO SCH (21:19)
[2021-01-12] MEDS: RIVAROXABAN 20 MG TAB PO SCH (21:20)
[2021-01-12] MEDS: POLYETHYLENE (MIRALAX) 17 GM PACK PO SCH (21:20)
[2021-01-12] MEDS: traZODone HCL 50 MG TAB PO SCH (21:20)
[2021-01-12] MEDS: LORazepam 1 MG TAB PO PRN (21:25)
[2021-01-12] MEDS: guaiFENesin 600 MG TABCR PO SCH (22:47)
[2021-01-12] MEDS ORDERED: VANCOMYCIN HCL 1,000 MG in SODIUM CHLORIDE 0.9% 250 ML IV SCH (23:00)
[2021-01-13] MEDS: ALBUT/IPRATROP 3MG/0.5MG NEB 3 ML VIAL NEB SCH ×7 (00:46→19:56)
[2021-01-13] MEDS: CEFEPIME 2,000 MG in SYRINGE 0 ML IV SCH ×3 (01:27→17:16)
[2021-01-13] MEDS: ALBUTEROL HFA 8 GM INHALER INH PRN ×2 (04:52→17:49)
[2021-01-13] MEDS: PANTOprazole 40 MG TAB PO SCH (05:45)
[2021-01-13] MEDS ORDERED: methylPREDNISolone 40 MG in SYRINGE 0 ML IV SCH ×2 (06:00)
[2021-01-13 07:41] LABS: Hematocrit (blood only) 40.5 % (37-47); Hemoglobin 13.7 g/dL (12.0-16.0); Immature Granulocytes # (auto) 0.01 K/uL (0.00-0.02); Immature Granulocytes % (auto) 0.1 %; Lymphocytes # (auto) 0.54 K/uL (1.2-3.4); Lymphocytes % (auto) 6.5 %; Mean Corpuscular Hemoglobin 32.1 pg (25-34); Mean Corpuscular Hgb Conc 33.8 g/dL (32-36); Mean Corpuscular Volume 94.8 fL (80-100); Mean Platelet Volume 10.4 fL (7.4-10.4); Monocytes # (auto) 0.46 K/uL (0.11-0.59); Monocytes % (auto) 5.6 %; Neutrophils # (auto) 7.26 K/uL (1.4-6.5); Neutrophils % (auto) 87.8 %; Platelet Count 148 K/uL (130-400); RDW Coefficient of Variation 14.1 % (11.5-14.5); RDW Standard Deviation 49.1 fL (36.4-46.3); Red Blood Count 4.27 M/uL (4.2-5.4); White Blood Count 8.27 K/uL (4.8-10.8)
[2021-01-13 08:07] LABS: Calcium 9.2 mg/dl (8.5-10.1); Creatinine Clr Calc Pharmacy 77.8 ml/min; Est GFR (African American) 105.1 ml/min; Est GFR (Non-African American) 90.7 ml/min; Potassium 4.3 mmol/L (3.5-5.1)
--- NOTE | 2021-01-13 08:19 | Hospitalist Progress Note ---
Date of Service January 13, 2021 Assessment & Plan (1) Pneumonia: 65 YOF with past medical history of COPD, Active smoker (15/day), Pulmonary embolism (08/23), Sarcoidosis with VATS (granulomatous pneumonitis), chest wall pain, osteopetrosis, chronic sinusitis, DJD. #Acute hypoxemic respiratory failure and sepsis secondary to pneumonia Patient with a past medical history of COPD with frequent exacerbations clinical history of worsening shortness of breath, fevers, chills, aches and pains, c torrey presents for evaluation of worsening shortness of breath. Patient uses as needed O2 at home, requiring 4 L on presentation to the ED to maintain saturations of 90%, patient has a fever on presentation, elevated respiratory rate, tachycardic, and initially hypotensive. She received 1 L of LR as a bolus and pressures improved. Patient reports her was sick recently, question etiology of infection either bacterial versus viral, given myalgias will obtain labs for influenza. In the interim given her septic presentation will treat with broad-spectrum antibiotics and supportive care as indicated. -Blood cultures obtained and pending -NGTD -Broad-spectrum coverage with cefepime and vancomycin and Azithro -plan to d/c zosyn/vanc after 48 hours if cultures continue to show no growth -continue azithro -Solu-Medrol 60 mg now and then every morning -added bid pulmicort -Guaifenesin/dextromethorphan every 6 hours for coughing -DuoNebs every qid -Continue home inhalers #COPD Contributing to current presentation continue home meds. -Added Spiriva every morning -Continue Anoro -added bid pulmicort nebulized #Sarcoidosis No history of, follows with pulmonology, likely contributing to current presentation -Management as above -If respiratory status does not improve rapidly to consider pulmonology consult #Pulmonary embolism History of (08/23) on Xarelto 20 mg nightly -Continue Xarelto #Anxiety and depression -Continue lorazepam 1 mg daily as needed -Continue trazodone 50 mg at bedtime -Continue buspirone 10 mg bid #Tobacco use Encourage patient stop smoking -Provide a nicotine patch -Requesting case management's assistance in obtaining Chantix for this patient #Chronic low back and rib pain -Continue cyclobenzaprine 10 mg 3 times daily as needed FENa: Heart healthy diet Code Status: Full code DVT PPX: On Xarelto PT/OT: Not indicated at present Case Management: Consulted Dispo: Telemetry Kyle Kelley MD PGY 3, FCM This chart was completed utilizing [employer] voice recognition software. Grammatical errors, random word insertions, pronoun errors, and in complete sentences are an occasional consequence of the system. Any questions or concerns about the content, text, or information contained within the body of this dictation should be addressed directly to the physician for clarification. (2) Acute hypoxemic respiratory failure: (3) SOB (shortness of breath): (4) COPD exacerbation: (5) Pulmonary embolism: (6) Anxiety and depression: (7) Osteoporosis: (8) Tobacco use disorder: (9) Postinflammatory pulmonary fibrosis: (10) Sepsis: Admission and Anticipated Discharge Date Admission Date: January 12, 2021 Supervising Physician Co-Signing Physician Notes Attending attestation Pt seen and examined in concert with Dr. Kelley. In agreement with the documented findings as noted in the resident documentation with any exceptions or additions as noted here. Continued improvement in SOB not yet returned to baseline. Nonproductive cough worse while reclined. New onset epistaxis noted bilateral nares with mild discomfort w/ NC. Still motivated for smoking cessation. On examination, S1/S2 nl RRR no MCG. Improved work of breathing with diffuse wheezing without localizable rales. Abd NT/ND BS+ve Acute on chronic hypoxic respiratory failure - baseline O2 need 2LNC with ambulation. Continue O2 and wean as tolerated. Addressing underlying disease Sepsis secondary to PNA with COPD exacerbation, h/o sarcoidosis - f/u BCx - continue steroid therapy. Consider increased dose to BID with persistently elevated WOB. IV abx and nebs scheduled. Strongly encourage flutter valve/IS and supportive care. Low threshold for pulm C/S 2/2 h/o sarcoidosis. Epistaxis - likely dry and friction from NC - would be more comfortable in mask if possible. Humidify O2 either way. Monitor closely. Hgb 13.7. Pulmonary embolism - continue xarelto Smoking cessation - counseling provided and continue nicotine patch, will work insurance and see if can do chantix on/following discharge. Else see resident documentation as noted. Subjective Patient sitting upright in bed this morning with her daughter at the bedside in no acute distress. Patient reports difficulty breathing overnight, she received additional steroids and her breathing improved. Patient notes that her heart rate has been a little fast after receiving her nebulized medications. Patient reports tolerating her diet, voiding, stooling. Acute concerns relate to her breathing ability, patient reports she is a mouth breather. All questions were answered. Review of Systems Constitutional: + fatigue Ear, Nose, Mouth, Throat: + nasal congestion Respiratory: + cough, + chest congestion and + dyspnea Cardiovascular: no chest pain Gastrointestinal: no abdominal pain Genitourinary: no urinary incontinence Musculoskeletal: no back pain and no neck pain Neurologic: no confusion Psychiatric: no behavioral changes Physical Exam Physical Exam: General: Sitting on her bed receiving a nebulizer treatment HEENT: Normocephalic atraumatic Neck: Normal visual inspection Cardiac: Tachycardic with regular rhythm I did not appreciate any significant murmurs rubs or gallops, normal S1, normal S2, negative pedal edema, negative calf tenderness Respiratory: Diffuse wheezing throughout all lung khan, did not appreciate any crackles, rales, intermittent rhonchi. Increased work of breathing, respiratory distress present Neuro: Alert and oriented x4 Psych: Calm and cooperative with the interview Results & Data Results & Data ([facility]) Vital Signs (Past 12 Hours) Vital Signs Temp Pulse Pulse Resp BP Pulse Ox 01/13/21 07:58 36.3 C L 100 H 22 107/64 96 01/13/21 07:08 97 H 28 H 96 01/13/21 04:28 36.3 C L 101 H 22 106/69 97 01/13/21 01:32 94 H 22 98 01/13/21 00:18 98 H 01/12/21 23:57 36.6 C 98 H 20 108/69 97 Laboratory Results 01/13/21 01/13/21 01/12/21 Range/Units 07:06 07:06 16:20 WBC 8.27 (4.8-10.8) K/uL RBC 4.27 (4.2-5.4) M/uL Hgb 13.7 (12.0-16.0) g/dL Hct 40.5 (37-47) % MCV 94.8 (80-100) fL MCH 32.1 (25-34) pg MCHC 33.8 (32-36) g/dL RDW Std Deviation 49.1 H (36.4-46.3) fL RDW Coeff of Perry 14.1 (11.5-14.5) % Plt Count 148 (130-400) K/uL MPV 10.4 (7.4-10.4) fL Immature Gran % (Auto) 0.1 % Neut % (Auto) 87.8 % Lymph % (Auto) 6.5 % Carbon % (Auto) 5.6 % Eos % (Auto) 0.0 % Baso % (Auto) 0.0 % Neut # (Auto) 7.26 H (1.4-6.5) K/uL Lymph # (Auto) 0.54 L (1.2-3.4) K/uL Carbon # (Auto) 0.46 (0.11-0.59) K/uL Eos # (Auto) 0.00 (0-0.5) K/uL Baso # (Auto) 0.00 (0-0.2) K/uL Immature Gran # (Auto) 0.01 (0.00-0.02) K/uL Sodium 140 (136-145) mmol/L Potassium 4.3 D (3.5-5.1) mmol/L Chloride 109 H (98-107) mmol/L Carbon Dioxide 28 (21-32) mmol/L Anion Gap 3.0 (3-11) BUN 17 (7-18) mg/dl Creatinine 0.69 (0.6-1.2) mg/dl Est Cr Clr Drug Dosing 77.8 ml/min Est GFR ( Amer) 105.1 ml/min Est GFR (Non-Af Amer) 90.7 ml/min BUN/Creatinine Ratio 25.0 H (10-20) Glucose 132 H (70-99) mg/dl Lactate (0.4-2.0) mmol/L Calcium 9.2 (8.5-10.1) mg/dl Magnesium (1.8-2.4) mg/dl Total Bilirubin (0.2-1) mg/dl AST (15-37) U/L ALT (12-78) U/L Alkaline Phosphatase (45-117) U/L Troponin I (0-0.045) ng/ml NT-Pro-B Natriuret Pep (0-900) pg/ml Total Protein (6.4-8.2) gm/dl Albumin (3.4-5.0) gm/dl Globulin (2.5-4.0) gm/dl Albumin/Globulin Ratio (0.9-2) Urine Color Yellow Urine Appearance Clear (Clear) Urine pH 5.5 (4.5-7.5) Ur Specific [place] 1.025 (1.000-1.030) Urine Protein 2+ H (Negative) Urine Glucose (UA) 3+ H (Negative) Urine Ketones Trace H (Negative) Urine Blood Trace H (Negative) Urine Nitrite Negative (Negative) Urine Bilirubin Negative (Negative) Urine Urobilinogen Negative (Negative) Ur Leukocyte Esterase Negative (Negative) Urine WBC (Auto) 1-5 (0-5) /hpf Urine RBC (Auto) 0-4 (0-4) /hpf U Hyaline Cast (Auto) 5-10 H (0-5) /lpf U Epithel Cells (Auto) 10-20 H (0-5) /lpf Urine Bacteria (Auto) Negative (Negative) Nasal Screen MRSA (PCR) (Negative) COVID-19 Eval Order SARS-CoV-2 (PCR) (Negative) Influ A Molecular Assay (Negative) Influ B Molecular Assay (Negative) 01/12/21 01/12/21 01/12/21 Range/Units 16:20 12:20 08:15 WBC (4.8-10.8) K/uL RBC (4.2-5.4) M/uL Hgb (12.0-16.0) g/dL Hct (37-47) % MCV (80-100) fL MCH (25-34) pg MCHC (32-36) g/dL RDW Std Deviation (36.4-46.3) fL RDW Coeff of Perry (11.5-14.5) % Plt Count (130-400) K/uL MPV (7.4-10.4) fL Immature Gran % (Auto) % Neut % (Auto) % Lymph % (Auto) % Carbon % (Auto) % Eos % (Auto) % Baso % (Auto) % Neut # (Auto) (1.4-6.5) K/uL Lymph # (Auto) (1.2-3.4) K/uL Carbon # (Auto) (0.11-0.59) K/uL Eos # (Auto) (0-0.5) K/uL Baso # (Auto) (0-0.2) K/uL Immature Gran # (Auto) (0.00-0.02) K/uL Sodium (136-145) mmol/L Potassium (3.5-5.1) mmol/L Chloride (98-107) mmol/L Carbon Dioxide (21-32) mmol/L Anion Gap (3-11) BUN (7-18) mg/dl Creatinine (0.6-1.2) mg/dl Est Cr Clr Drug Dosing ml/min Est GFR ( Amer) ml/min Est GFR (Non-Af Amer) ml/min BUN/Creatinine Ratio (10-20) Glucose (70-99) mg/dl Lactate (0.4-2.0) mmol/L Calcium (8.5-10.1) mg/dl Magnesium (1.8-2.4) mg/dl Total Bilirubin (0.2-1) mg/dl AST (15-37) U/L ALT (12-78) U/L Alkaline Phosphatase (45-117) U/L Troponin I (0-0.045) ng/ml NT-Pro-B Natriuret Pep (0-900) pg/ml Total Protein (6.4-8.2) gm/dl Albumin (3.4-5.0) gm/dl Globulin (2.5-4.0) gm/dl Albumin/Globulin Ratio (0.9-2) Urine Color Urine Appearance (Clear) Urine pH (4.5-7.5) Ur Specific [place] (1.000-1.030) Urine Protein (Negative) Urine Glucose (UA) (Negative) Urine Ketones (Negative) Urine Blood (Negative) Urine Nitrite (Negative) Urine Bilirubin (Negative) Urine Urobilinogen (Negative) Ur Leukocyte Esterase (Negative) Urine WBC (Auto) (0-5) /hpf Urine RBC (Auto) (0-4) /hpf U Hyaline Cast (Auto) (0-5) /lpf U Epithel Cells (Auto) (0-5) /lpf Urine Bacteria (Auto) (Negative) Nasal Screen MRSA (PCR) Negative (Negative) COVID-19 Eval Order SARS-CoV-2 (PCR) NEGATIVE (Negative) Influ A Molecular Assay Negative (Negative) Influ B Molecular Assay Negative (Negative) 01/12/21 01/12/21 01/12/21 Range/Units 08:15 07:55 07:52 WBC (4.8-10.8) K/uL RBC (4.2-5.4) M/uL Hgb (12.0-16.0) g/dL Hct (37-47) % MCV (80-100) fL MCH (25-34) pg MCHC (32-36) g/dL RDW Std Deviation (36.4-46.3) fL RDW Coeff of Perry (11.5-14.5) % Plt Count (130-400) K/uL MPV (7.4-10.4) fL Immature Gran % (Auto) % Neut % (Auto) % Lymph % (Auto) % Carbon % (Auto) % Eos % (Auto) % Baso % (Auto) % Neut # (Auto) (1.4-6.5) K/uL Lymph # (Auto) (1.2-3.4) K/uL Carbon # (Auto) (0.11-0.59) K/uL Eos # (Auto) (0-0.5) K/uL Baso # (Auto) (0-0.2) K/uL Immature Gran # (Auto) (0.00-0.02) K/uL Sodium 137 (136-145) mmol/L Potassium 3.5 (3.5-5.1) mmol/L Chloride 105 (98-107) mmol/L Carbon Dioxide 27 (21-32) mmol/L Anion Gap 5.0 (3-11) BUN 14 (7-18) mg/dl Creatinine 0.85 (0.6-1.2) mg/dl Est Cr Clr Drug Dosing 63.6 ml/min Est GFR ( Amer) 82.8 ml/min Est GFR (Non-Af Amer) 71.4 ml/min BUN/Creatinine Ratio 16.3 (10-20) Glucose 125 H (70-99) mg/dl Lactate 1.1 (0.4-2.0) mmol/L Calcium 8.8 (8.5-10.1) mg/dl Magnesium 2.2 (1.8-2.4) mg/dl Total Bilirubin 0.8 (0.2-1) mg/dl AST 21 (15-37) U/L ALT 23 (12-78) U/L Alkaline Phosphatase 94 (45-117) U/L Troponin I < 0.015 (0-0.045) ng/ml NT-Pro-B Natriuret Pep 137 (0-900) pg/ml Total Protein 7.6 (6.4-8.2) gm/dl Albumin 3.4 (3.4-5.0) gm/dl Globulin 4.2 H (2.5-4.0) gm/dl Albumin/Globulin Ratio 0.8 L (0.9-2) Urine Color Urine Appearance (Clear) Urine pH (4.5-7.5) Ur Specific [place] (1.000-1.030) Urine Protein (Negative) Urine Glucose (UA) (Negative) Urine Ketones (Negative) Urine Blood (Negative) Urine Nitrite (Negative) Urine Bilirubin (Negative) Urine Urobilinogen (Negative) Ur Leukocyte Esterase (Negative) Urine WBC (Auto) (0-5) /hpf Urine RBC (Auto) (0-4) /hpf U Hyaline Cast (Auto) (0-5) /lpf U Epithel Cells (Auto) (0-5) /lpf Urine Bacteria (Auto) (Negative) Nasal Screen MRSA (PCR) (Negative) COVID-19 Eval Order Covid19 at [facility] SARS-CoV-2 (PCR) (Negative) Influ A Molecular Assay (Negative) Influ B Molecular Assay (Negative) Medications Administered Current Inpatient Medications Acetaminophen (Acetaminophen 500 Mg Tab) 1,000 mg PO Q8 PRN PRN Reason: Pain or Fever Stop: 02/11/21 10:33 Last Admin: 01/13/21 05:47 Dose: 1,000 mg Documented by: Albuterol (Albut/Ipratrop 3mg/0.5mg Neb 3 Ml Vial) 3 ml NEB Q4R HEATHER Stop: 02/11/21 14:59 Last Admin: 01/13/21 07:06 Dose: 3 ml Documented by: Albuterol (Albuterol Hfa 8 Gm Inhaler) 2 puffs INH QID PRN PRN Reason: Shortness Of Breath Or Wheezing Stop: 02/11/21 15:21 Last Admin: 01/13/21 04:52 Dose: 2 puffs Documented by: Azithromycin (Azithromycin 250 Mg Tab) 250 mg PO QAM [facility]ATH[facility] Stop: 01/20/21 08:59 Budesonide (Budesonide 0.5 Mg/2 Ml Vial (Pulmicort)) 0.5 mg NEB BIDR [facility] Stop: 02/12/21 18:59 Buspirone HCl (Buspirone 5 Mg Tab) 10 mg PO BID [facility] Stop: 02/11/21 20:59 Last Admin: 01/12/21 21:19 Dose: 10 mg Documented by: Cyclobenzaprine HCl (Cyclobenzaprine Hcl 10 Mg Tab) 10 mg PO TID PRN PRN Reason: Muscle Spasm Stop: 02/11/21 15:40 Diclofenac Sodium (Diclofenac Sod 1% Gel 100 Gm Tube) 4 gm EXT DAILY PRN PRN Reason: Pain Stop: 02/11/21 15:21 Fluticasone Furoate (Fluticasone Furoate 200mcg 14 Puffs/Inhaler) 1 puffs INH DAILY [facility] Stop: 02/11/21 15:59 Last Admin: 01/12/21 16:34 Dose: 1 puffs Documented by: Guaifenesin (Guaifenesin 600 Mg Tabcr) 600 mg PO Q12 [facility] Stop: 02/11/21 20:59 Last Admin: 01/12/21 22:47 Dose: 600 mg Documented by: Guaifenesin/Dextromethorphan (Guaifenesin/Dextrom Syrup 200mg/20mg 10ml Udc) 10 ml PO Q6H PRN PRN Reason: cough Stop: 02/11/21 10:44 Cefepime HCl 2,000 mg/ Syringe 20 mls @ 5 mls/min IV Q8H [facility]; Protocol Stop: 01/19/21 17:59 Last Admin: 01/13/21 01:27 Dose: 5 mls/min Documented by: Methylprednisolone 60 mg/ (Syringe) 0.96 mls @ 1.5 mls/min IV Q8H [facility] Stop: 02/12/21 08:12 Lorazepam (Lorazepam 1 Mg Tab) 1 mg PO DAILY PRN PRN Reason: Anxiety Stop: 02/11/21 15:40 Last Admin: 01/12/21 21:25 Dose: 1 mg Documented by: Miscellaneous (Remove Nicoderm Patch) 1 ea N/A DAILY@858 [facility] Stop: 02/12/21 08:58 Miscellaneous Information (Cefepime Consult Active) 1 ea N/A UD PRN PRN Reason: Consult Stop: 02/11/21 10:58 Nicotine (Nicotine 14 Mg/24 Hr Patch) [facility] [place]: 02/12/21 08:59 Ondansetron HCl (Ondansetron Inj 2 Mg/Ml 2 Ml Vial) 4 mg IV Q6H PRN PRN Reason: Nausea Stop: 02/11/21 10:33 Pantoprazole Sodium (Pantoprazole 40 Mg Tab) 40 mg PO DAILYBB [facility] Stop: 02/12/21 06:29 Last Admin: 01/13/21 05:45 Dose: 40 mg Documented by: Polyethylene Glycol (Polyethylene (Miralax) 17 Gm Pack) 17 gm PO BID [facility] Stop: 02/11/21 20:59 Last Admin: 01/12/21 21:20 Dose: Not Given Documented by: Rivaroxaban (Rivaroxaban 20 Mg Tab) 20 mg PO [facility] Stop: 02/11/21 20:59 Last Admin: 01/12/21 21:20 Dose: 20 mg Documented by: Trazodone HCl (Trazodone Hcl 50 Mg Tab) 50 mg PO HS [facility] Stop: 02/11/21 20:59 Last Admin: 01/12/21 21:20 Dose: 50 mg Documented by: Umeclidinium [place] (Umeclidinium [place] 62.5mcg/Blister 7 Puffs/Inhaler) 1 puffs INH QAM [facility] Stop: 02/12/21 08:59 Umeclidinium/Vilanterol (Umeclidinium/Vilanterol 62.5/25mcg 7 Puffs/Inhaler) 1 [facility]uffs [facility] [place] Stop: 02/11/21 15:21 Last Admin: 01/12/21 16:33 Dose: 1 puffs Documented by: Resident Activity Tracking Resident Involvement: Resident Care Provided Care Provided: Adult Hospital Medicine (1) Osteoporosis Osteoporosis type: unspecified Presence of current pathological fracture: without current pathological fracture Qualified Code(s): M81.0 - Age-related osteoporosis without current pathological fracture (2) Pulmonary embolism Acute cor pulmonale presence: with acute cor pulmonale Chronicity: chronic Pulmonary embolism type: other Qualified Code(s): I27.82 - Chronic pulmonary embolism; I26.09 - Other pulmonary embolism with acute cor pulmonale
[2021-01-13] MEDS: UMECLIDINIUM/VILANTEROL 62.5/25MCG 7 PUFFS/INHALER INH SCH (08:33)
[2021-01-13] MEDS: UMECLIDINIUM BROMIDE 62.5MCG/BLISTER 7 PUFFS/INHALER INH SCH (08:33)
[2021-01-13] MEDS: guaiFENesin 600 MG TABCR PO SCH ×2 (08:34→21:47)
[2021-01-13] MEDS: FLUTICASONE FUROATE 200MCG 14 PUFFS/INHALER INH SCH (08:34)
[2021-01-13] MEDS: busPIRone 5 MG TAB PO SCH ×2 (08:35→21:49)
[2021-01-13] MEDS: NICOTINE 14 MG/24 HR PATCH TD SCH (08:36)
[2021-01-13] MEDS ORDERED: methylPREDNISolone 60 MG in SYRINGE 0 ML IV SCH (09:00)
[2021-01-13] MEDS: POLYETHYLENE (MIRALAX) 17 GM PACK PO SCH ×2 (09:15→21:51)
[2021-01-13] MEDS: AZITHROMYCIN 250 MG TAB PO SCH (11:19)
[2021-01-13] MEDS ORDERED: LACTATED RINGER'S 500 ML IV ONE (14:33)
[2021-01-13] MEDS: methylPREDNISolone 60 MG in SYRINGE 0 ML IV SCH ×2 (14:33→21:05)
--- NOTE | 2021-01-13 19:21 | XRay Report ---
XR chest 1V portable HISTORY: 65 years-old Female sob acute shortness of breath COMPARISON: Chest radiograph 01/12/2021, chest CT 10/09/2020. TECHNIQUE: Portable AP view of the chest FINDINGS: Cardiac silhouette is normal. Bilateral hilar prominence with adjacent fibrosis redemonstrated. Chron ic reticular opacities of the lungs with areas of architectural distortion. Emphysema. No pneumothora x, pleural effusion, or overt pulmonary edema. There are persistent opacities noted within the left u pper lung. Changes of the spine and left shoulder. Right shoulder total joint arthroplasty. IMPRESSION: 1. Chronic hilar enlargement with fibrotic changes compatible with the patient's history of sarcoidos is. 2. Persistent left upper lung opacities which are new from 10/09/2020 suggestive of fibrosis versus pne umonia. 3. Emphysema. ACT 112: Negative or not required by law. The above report was generated using voice recognition software. It may contain grammatical, syntax o r spelling errors. Electronically signed by: Vargas Rivers M.D. 01/13/2021 7:19 PM
[2021-01-13] MEDS: BUDESONIDE 0.5 MG/2 ML VIAL (PULMICORT) NEB SCH (21:09)
[2021-01-13] MEDS ORDERED: OPTIRAY 320 125ml IV ONE (21:40)
[2021-01-13] MEDS: LORazepam 1 MG TAB PO PRN (21:47)
[2021-01-13] MEDS: RIVAROXABAN 20 MG TAB PO SCH (21:48)
[2021-01-13] MEDS: traZODone HCL 50 MG TAB PO SCH (21:48)
--- NOTE | 2021-01-13 21:58 | CT Scan Report ---
CT ANGIOGRAM OF THE CHEST CLINICAL HISTORY: Dyspnea. COMPARISON STUDY: Chest x-ray dated 01/13/2021. Chest CT dated 10/09/2020. TECHNIQUE: Following the IV administration of 120 cc of Optiray 320, CT angiogram of the chest was pe rformed from the upper abdomen to the thoracic inlet utilizing the pulmonary embolus protocol. Images are reviewed in the axial, sagittal, and coronal planes. 3-D MIPS images are created and assessed. I V contrast was administered without complication. A dose lowering technique was utilized adhering to the principles of ALARA. The Examination is significantly compromised by motion artifact. There is a lso streak artifact from the arms which could not be elevated above the chest. CT DOSE: 682.81 mGy.cm FINDINGS: Thyroid: Imaged portions of the thyroid gland are normal in size and attenuation. Thoracic aorta: The thoracic aorta is normal in caliber and demonstrates standard 3-vessel arch anato my. No dissection is seen. Pulmonary vasculature: The pulmonary trunk is normal in caliber. There are no filling defects identif ied in main, lobar, or segmental pulmonary branches to suggest pulmonary embolus. Heart: The heart is normal in size and without pericardial effusion. There are scattered coronary art nereida calcifications. Lungs and pleural spaces: Evaluation of the lung parenchyma is compromised by motion artifact. Advanc ed emphysematous change is noted. There are bilateral fat-containing Bochdalek hernias. No airspace c onsolidation is seen typical for pneumonia and there is no pleural effusion. Foci of fibrosis and sca rring are again seen throughout both lungs. There are numerous calcified granulomas. There are scatte red centrilobular nodules as well as foci of mild bronchiectasis. These findings are similar to prior studies. The trachea and central airways are clear. Mediastinum: There are numerous calcified mediastinal nodes. No adenopathy is identified. Sobeida: There are calcified bilateral hilar nodes. No hilar adenopathy is identified. Axillae: There is no axillary lymphadenopathy. Upper abdomen: A small hiatal hernia is noted. Partially visualized upper abdominal viscera is otherw ise grossly unremarkable. Skeletal structures: The skeletal structures are osteopenic. Degenerative change and hyperkyphosis is noted in the thoracic spine. There are numerous mild thoracic compression deformities. No lytic or b lastic bony lesions are seen. A right shoulder arthroplasty is in place. IMPRESSION: 1. Significantly streak and motion compromised examination. 2. There is no evidence of pulmonary embolus in the main, lobar, or segmental pulmonary arteries. 3. Advanced emphysema and fibrotic change is again seen throughout both lungs. This is similar to kishore or studies. 4. There is no airspace consolidation typical for pneumonia or pleural effusion. 5. Additional findings as above. ACT 112: Negative or not required by law. Electronically signed by: Logan Munson M.D. 01/13/2021 9:57 PM
[2021-01-14] MEDS: CEFEPIME 2,000 MG in SYRINGE 0 ML IV SCH (01:17)
[2021-01-14] MEDS: ALBUTEROL HFA 8 GM INHALER INH PRN (01:21)
[2021-01-14] MEDS: PANTOprazole 40 MG TAB PO SCH (05:57)
[2021-01-14] MEDS: methylPREDNISolone 60 MG in SYRINGE 0 ML IV SCH (05:57)
[2021-01-14] MEDS: ALBUT/IPRATROP 3MG/0.5MG NEB 3 ML VIAL NEB SCH ×4 (06:24→20:00)
[2021-01-14] MEDS: BUDESONIDE 0.5 MG/2 ML VIAL (PULMICORT) NEB SCH ×2 (06:24→20:00)
--- NOTE | 2021-01-14 07:43 | Hospitalist Progress Note ---
Date of Service January 14, 2021 Assessment & Plan (1) Pneumonia: Plan: 65 YOF with past medical history of COPD, Active smoker (15/day), Pulmonary embolism (08/23), Sarcoidosis with VATS (granulomatous pneumonitis), chest wall pain, osteopetrosis, chronic sinusitis, DJD. #Acute hypoxemic respiratory failure and sepsis secondary to pneumonia Patient with a past medical history of COPD with frequent exacerbations clinical history of worsening shortness of breath, fevers, chills, aches and pains, coughing presents for evaluation of worsening shortness of breath. Patient uses as needed O2 at home, requiring 4 L on presentation to the ED to maintain saturations of 90%, patient has a fever on presentation, elevated respiratory rate, tachycardic, and initially hypotensive. She received 1 L of LR as a bolus and pressures improved. Patient reports her was sick recently, question etiology of infection either bacterial versus viral, given myalgias will obtain labs for influenza. In the interim given her septic presentation will treat with broad-spectrum antibiotics and supportive care as indicated. -Blood cultures obtained and pending -NGTD -Broad-spectrum coverage with cefepime and vancomycin and Azithro -plan to d/c zosyn/vanc after 48 hours if cultures continue to show no growth -continue azithro -Guaifenesin/dextromethorphan every 6 hours for coughing -Continue home inhalers -Pulmonology consulted -Solu-Medrol 125 mg every 8 hours, and perforomist. -Optimize inhaler regimen #COPD Contributing to current presentation continue home meds. -See above #Sarcoidosis No history of, follows with pulmonology, likely contributing to current presentation -Pulmonology feels her history of sarcoidosis is not actively contributing to her current presentation #Pulmonary embolism History of (08/23) on Xarelto 20 mg nightly -Continue Xarelto #Anxiety and depression -Continue lorazepam 1 mg daily as needed -Continue trazodone 50 mg at bedtime -Continue buspirone 10 mg bid #Tobacco use Encourage patient stop smoking -Provide a nicotine patch -Requesting case management's assistance in obtaining Chantix for this patient #Chronic low back and rib pain -Continue cyclobenzaprine 10 mg 3 times daily as needed FENa: Heart healthy diet Code Status: Full code DVT PPX: On Xarelto PT/OT: Not indicated at present Case Management: Consulted Dispo: Telemetry Kyle Kelley MD PGY 3, FCM This chart was completed utilizing [employer] voice recognition software. Grammatical errors, random word insertions, pronoun errors, and in complete sentences are an occasional consequence of the system. Any questions or concerns about the content, text, or information contained within the body of this dictation should be addressed directly to the physician for clarification. (2) Acute hypoxemic respiratory failure: (3) SOB (shortness of breath): (4) COPD exacerbation: (5) Pulmonary embolism: (6) Anxiety and depression: (7) Osteoporosis: (8) Tobacco use disorder: (9) Postinflammatory pulmonary fibrosis: (10) Sepsis: Admission and Anticipated Discharge Date Admission Date: January 12, 2021 Supervising Physician Co-Signing Physician Notes Attending attestation Pt seen and examined in concert with Dr. Kelley. In agreement with the documented findings as noted in the resident documentation with any exceptions or additions as noted here. Decreased sensation of fatigue with breathing, increased subjective wheezing. On examination, S1/S2 nl RRR no MCG. Improved work of breathing with diffuse wheezing overall improved. Abd NT/ND BS+ve Acute on chronic hypoxic respiratory failure - baseline O2 need 2LNC with ambulation. Continue O2 and wean as tolerated. Addressing underlying disease. Extensive conversation re: noninvasive ventilation and intubation and the need for advance care directive, encourage patient to consider same and follow up tomorrow. Sepsis secondary to PNA with COPD exacerbation, h/o sarcoidosis - f/u BCx - escalated steroid therapy with improvement. Continue inhaler regimen, abx. Strongly encourage flutter valve/IS and supportive care. Epistaxis - resolved Pulmonary embolism - continue xarelto Smoking cessation - nicotine patch. counseling provided 01.13.21, work insurance and see if can do chantix on/following discharge. Else see resident documentation as noted. Subjective Patient sitting up in bed today reporting improvement in her breathing stating that she like to use the oxygen mask intermittently. She stated that her mucus has become more mobile. She reports tolerating her diet, voiding, stooling. Acute concerns relate to her chronic respiratory problems all questions answered Review of Systems Constitutional: + fatigue Ear, Nose, Mouth, Throat: + nasal congestion Respiratory: + cough, + chest congestion and + dyspnea Cardiovascular: no chest pain Gastrointestinal: no abdominal pain Genitourinary: no urinary incontinence Musculoskeletal: no back pain and no neck pain Neurologic: no confusion Psychiatric: no behavioral changes Physical Exam Physical Exam: General: Sitting on her bed receiving a nebulizer treatment HEENT: Normocephalic atraumatic Neck: Normal visual inspection Cardiac: Tachycardic with regular rhythm I did not appreciate any significant murmurs rubs or gallops, normal S1, normal S2, negative pedal edema, negative calf tenderness Respiratory: Significant improvement in wheezing, however rhonchi present, no rales. Improved work of breathing Neuro: Alert and oriented x4 Psych: Calm and cooperative with the interview Results & Data Results & Data ([facility]) Vital Signs (Past 12 Hours) Vital Signs Temp Pulse Pulse Resp BP Pulse Ox 01/14/21 07:22 99 H 01/14/21 06:33 94 H 20 97 01/14/21 03:34 36.7 C 103 H 22 130/65 94 01/13/21 23:45 36.4 C L 99 H 18 102/64 97 01/13/21 23:04 101 H 01/13/21 20:00 105 H 22 95 Laboratory Results 01/14/21 01/14/21 Range/Units 07:55 07:55 WBC 11.27 H (4.8-10.8) K/uL RBC 4.45 (4.2-5.4) M/uL Hgb 14.0 (12.0-16.0) g/dL Hct 41.7 (37-47) % MCV 93.7 (80-100) fL MCH 31.5 (25-34) pg MCHC 33.6 (32-36) g/dL RDW Std Deviation 49.2 H (36.4-46.3) fL RDW Coeff of [place] 14.4 (11.5-14.5) % Plt Count 168 (130-400) K/uL MPV 9.9 (7.4-10.4) fL Immature Gran % (Auto) 0.2 % Neut % (Auto) 91.4 % Lymph % (Auto) 5.6 % [place] % (Auto) 2.8 % Eos % (Auto) 0.0 % Baso % (Auto) 0.0 % Neut # (Auto) 10.30 H (1.4-6.5) K/uL Lymph # (Auto) 0.63 L (1.2-3.4) K/uL [place] # (Auto) 0.32 (0.11-0.59) K/uL Eos # (Auto) 0.00 (0-0.5) K/uL Baso # (Auto) 0.00 (0-0.2) K/uL Immature Gran # (Auto) 0.02 (0.00-0.02) K/uL Sodium 142 (136-145) mmol/L Potassium 4.3 (3.5-5.1) mmol/L Chloride 109 H (98-107) mmol/L Carbon Dioxide 29 (21-32) mmol/L Anion Gap 4.0 (3-11) BUN 28 H D (7-18) mg/dl Creatinine 0.77 (0.6-1.2) mg/dl Est Cr Clr Drug Dosing 69.7 ml/min Est GFR ( Amer) 93.3 ml/min Est GFR (Non-Af Amer) 80.5 ml/min BUN/Creatinine Ratio 36.8 H (10-20) Glucose 132 H (70-99) mg/dl Calcium 9.5 (8.5-10.1) mg/dl Medications Administered Current Inpatient Medications Acetaminophen (Acetaminophen 500 Mg Tab) 1,000 mg PO Q8 PRN PRN Reason: Pain or Fever Stop: 02/11/21 10:33 Last Admin: 01/13/21 05:47 Dose: 1,000 mg Documented by: Albuterol (Albuterol Hfa 8 Gm Inhaler) 2 puffs INH QID PRN PRN Reason: Shortness Of Breath Or Wheezing Stop: 02/11/21 15:21 Last Admin: 01/14/21 01:21 Dose: 2 puffs Documented by: Albuterol (Albut/Ipratrop 3mg/0.5mg Neb 3 Ml Vial) 3 ml NEB QIDR HEATHER Stop: 02/12/21 08:59 Last Admin: 01/14/21 14:55 Dose: 3 ml Documented by: Azithromycin (Azithromycin 250 Mg Tab) 250 mg PO QAM [facility] Stop: 01/20/21 08:59 Last Admin: 01/14/21 08:10 Dose: 250 mg Documented by: Budesonide (Budesonide 0.5 Mg/2 Ml Vial (Pulmicort)) 0.5 mg NEB BIDR [facility] Stop: 02/12/21 18:59 Last Admin: 01/14/21 06:24 Dose: 0.5 mg Documented by: Buspirone HCl (Buspirone 5 Mg Tab) 10 mg PO BID [facility] Stop: 02/11/21 20:59 Last Admin: 01/14/21 08:09 Dose: 10 mg Documented by: Cyclobenzaprine HCl (Cyclobenzaprine Hcl 10 Mg Tab) 10 mg PO TID PRN PRN Reason: Muscle Spasm Stop: 02/11/21 15:40 Diclofenac Sodium (Diclofenac Sod 1% Gel 100 Gm Tube) 4 gm EXT DAILY PRN PRN Reason: Pain Stop: 02/11/21 15:21 Formoterol Fumarate (Formoterol 20 Mcg/2 Ml Vial) 20 mcg NEB BIDR [facility] Stop: 02/13/21 08:59 Guaifenesin (Guaifenesin 600 Mg Tabcr) 1,200 mg PO Q12 [facility] Stop: 02/13/21 08:59 Last Admin: 01/14/21 09:50 Dose: 1,200 mg Documented by: Guaifenesin/Dextromethorphan (Guaifenesin/Dextrom Syrup 200mg/20mg 10ml Udc) 10 ml PO Q6H PRN PRN Reason: cough Stop: 02/11/21 10:44 Methylprednisolone 125 mg/ (Syringe) 2 mls @ 1.5 mls/min IV Q8H [facility] Stop: 02/13/21 11:59 Last Admin: 01/14/21 12:40 Dose: 1.5 mls/min Documented by: Lorazepam (Lorazepam 1 Mg Tab) 1 mg PO DAILY PRN PRN Reason: Anxiety Stop: 02/11/21 15:40 Last Admin: 01/13/21 21:47 Dose: 1 mg Documented by: Miscellaneous (Remove Nicoderm Patch) 1 ea N/A DAILY@59 [facility] Stop: 02/12/21 08:58 Last Admin: 01/14/21 08:12 Dose: 1 ea Documented by: Nicotine (Nicotine 14 Mg/24 Hr Patch) 14 mg TD QAM [facility] Stop: 02/12/21 08:59 Last Admin: 01/14/21 08:10 Dose: 14 mg Documented by: Ondansetron HCl (Ondansetron Inj 2 Mg/Ml 2 Ml Vial) 4 mg IV Q6H PRN PRN Reason: Nausea Stop: 02/11/21 10:33 Pantoprazole Sodium (Pantoprazole 40 Mg Tab) 40 mg PO DAILYBB [facility] Stop: 02/12/21 06:29 Last Admin: 01/14/21 05:57 Dose: 40 mg Documented by: Polyethylene Glycol (Polyethylene (Miralax) 17 Gm Pack) 17 gm PO BID [facility] Stop: 02/11/21 20:59 Last Admin: 01/14/21 08:18 Dose: 17 gm Documented by: Rivaroxaban (Rivaroxaban 20 Mg Tab) 20 mg PO HS [facility] Stop: 02/11/21 20:59 Last Admin: 01/13/21 21:48 Dose: 20 mg Documented by: Trazodone HCl (Trazodone Hcl 50 Mg Tab) 50 mg PO HS [facility] Stop: 02/11/21 20:59 Last Admin: 01/13/21 21:48 Dose: 50 mg Documented by: Umeclidinium [place] (Umeclidinium [place] 62.5mcg/Blister 7 Puffs/Inhaler) 1 puffs INH QAM [facility] Stop: 02/12/21 08:59 Last Admin: 01/14/21 08:11 Dose: 1 puffs Documented by: (1) Osteoporosis Osteoporosis type: unspecified Presence of current pathological fracture: without current pathological fracture Qualified Code(s): M81.0 - Age-related osteoporosis without current pathological fracture (2) Pulmonary embolism Acute cor pulmonale presence: with acute cor pulmonale Chronicity: chronic Pulmonary embolism type: other Qualified Code(s): I27.82 - Chronic pulmonary embolism; I26.09 - Other pulmonary embolism with acute cor pulmonale
[2021-01-14] MEDS: busPIRone 5 MG TAB PO SCH ×2 (08:09→20:52)
[2021-01-14] MEDS: guaiFENesin 600 MG TABCR PO SCH ×3 (08:10→20:53)
[2021-01-14] MEDS: AZITHROMYCIN 250 MG TAB PO SCH (08:10)
[2021-01-14] MEDS: FLUTICASONE FUROATE 200MCG 14 PUFFS/INHALER INH SCH (08:10)
[2021-01-14] MEDS: NICOTINE 14 MG/24 HR PATCH TD SCH (08:10)
[2021-01-14] MEDS: UMECLIDINIUM/VILANTEROL 62.5/25MCG 7 PUFFS/INHALER INH SCH (08:11)
[2021-01-14] MEDS: UMECLIDINIUM BROMIDE 62.5MCG/BLISTER 7 PUFFS/INHALER INH SCH (08:11)
[2021-01-14 08:14] LABS: Hematocrit (blood only) 41.7 % (37-47); Immature Granulocytes # (auto) 0.02 K/uL (0.00-0.02); Immature Granulocytes % (auto) 0.2 %; Lymphocytes # (auto) 0.63 K/uL (1.2-3.4); Lymphocytes % (auto) 5.6 %; Mean Corpuscular Hemoglobin 31.5 pg (25-34); Mean Corpuscular Hgb Conc 33.6 g/dL (32-36); Mean Corpuscular Volume 93.7 fL (80-100); Mean Platelet Volume 9.9 fL (7.4-10.4); Monocytes # (auto) 0.32 K/uL (0.11-0.59); Monocytes % (auto) 2.8 %; Neutrophils % (auto) 91.4 %; Platelet Count 168 K/uL (130-400); RDW Coefficient of Variation 14.4 % (11.5-14.5); RDW Standard Deviation 49.2 fL (36.4-46.3); Red Blood Count 4.45 M/uL (4.2-5.4); White Blood Count 11.27 K/uL (4.8-10.8)
[2021-01-14] MEDS: POLYETHYLENE (MIRALAX) 17 GM PACK PO SCH ×2 (08:18→20:54)
--- NOTE | 2021-01-14 08:40 | Pulmonary Consultation ---
Date of Consultation January 14, 2021 Assessment & Plan (1) Acute hypoxemic respiratory failure: Impression: 65-year-old female with advanced obstructive lung disease and ongoing tobacco abuse admitted with COPD exacerbation. She appears to have increased work of breathing this morning with respiratory distress. Recommendations: 1. Advanced COPD: We will increase Solu-Medrol 125 mg every 8. Add Perforomist. Review of her inhaler regimen indicates that she is on double therapy with inhaled corticosteroids as well as long-acting anticholinergics. I optimized her inhaler regimen. At this point time we will proceed with Perforomist, budesonide nebs as well as as needed duo nebs and continue azithromycin 250 mg daily. Should her respiratory condition worsen, she may require transfer to the intensive care unit for judicious application of noninvasive positive pressure ventilation. Given her hypercarbic respiratory failure, I would be reluctant to use sedatives or narcotics without her being and observed environment. Could consider heliox although it is unclear if it is available here and will discuss with respiratory therapy 2. Hypoxemic hypercarbic respiratory failure: Discussed with patient at bedside the utility and potential need for noninvasive positive pressure ventilation. She states she cannot tolerate the mask. She would rather be intubated. Hopefully we can stabilize her without having to pursue advanced diagnostics. 3. Smoking cessation: Once the patient's respiratory status is improved we will need to readdress tobacco abuse. If she continues to smoke, she will likely continue to experience declining respiratory status and ultimately her . 4. Prior history of sarcoid: This does not appear to be clinically active and is not likely compromising her current respiratory issues. They appear to be more related to her underlying COPD and emphysema. Patient's overall prognosis is guarded. She certainly is at risk for declining respiratory status and potential need for aggressive intervention. She will need to be followed closely at this point in time. (2) Acute respiratory distress: (3) COPD exacerbation: History of Present Illness Attending Physician: Maikel Gibbs MD History of Present Illness Asked by hospitalist to evaluate this patient with a COPD exacerbation. History is obtained from review of the electronic medical record and discussion with patient at bedside. Patient is a 65-year-old female who is followed by [facility] in the outpatient pulmonary clinic. She has a history of COPD and a remote history of sarcoid. She unfortunately continues her tobacco habit and is smoking 1 pack/day. She was admitted to the facility 01/12 with complaints of shortness of breath for 3 days prior to admission. She was diagnosed with COPD exacerbation as well as potential pneumonia and placed on Solu-Medrol and bronchodilators. When I arrived to see her this morning she is sitting up tripoding with increased work of breathing and prolonged expiratory phase with significant wheezing. She is coughing. She is expectorating phlegm. She has declined CPAP or BiPAP in the past but is open to the prospect of intubation mechanical ventilation although she would obviously like to avoid that. She is coughing up clear to whitish phlegm. She does not report chest pain or palpitations. She apparently had ill contacts at home as her apparently was recently diagnosed with an upper respiratory infection. Patient is intermittently on prednisone quite frequently due to her advanced COPD. Allergies Allergy/AdvReac Type Severity Reaction Status Date / Time No Known Allergies Allergy Verified 01/12/21 09:27 Home Medications Medication Instructions Recorded Confirmed Type albuterol sulfate 90 mcg/actuation 2 puff INHALATION QID PRN #18 gm 02/17/20 01/12/21 Rx aerosol inhaler (Ventolin HFA) albuterol sulfate 2.5 mg INHALATION QID PRN #90 ml 02/19/20 01/12/21 Rx buspirone 10 mg tablet 10 mg PO BID #60 tab 03/20/20 01/12/21 Rx cyclobenzaprine 10 mg tablet 10 mg PO TID PRN #60 tab 08/19/20 01/12/21 Rx umeclidinium 62.5 mcg-vilanterol 1 inh INHALATION QAM #60 ea 09/09/20 01/12/21 Rx 25 mcg/actuation powdr for inhalation (Anoro Ellipta) fluticasone propionate 110 2 puff INHALATION BID #12 g 09/30/20 01/12/21 Rx mcg/actuation HFA aerosol inhaler (Flovent HFA) trazodone 50 mg tablet 50 mg PO HS #90 tab 10/29/20 01/12/21 Rx Oxygen Home #1 ea 01/07/21 01/07/21 Rx nebulizer accessories #1 ea 01/07/21 01/07/21 Rx diclofenac sodium 1 % topical gel 4 g TOPICAL DAILY PRN 01/12/21 01/12/21 History (Voltaren Arthritis Pain) lorazepam 1 mg tablet (Ativan) 1 mg PO DAILY PRN 01/12/21 01/12/21 History meloxicam 7.5 mg tablet 7.5 mg DAILY 01/12/21 01/12/21 History pantoprazole 40 mg tablet,delayed 40 mg PO DAILYBB 01/12/21 01/12/21 History release rivaroxaban 20 mg tablet (Xarelto) 20 mg PO HS 01/12/21 01/12/21 History Patient History Medical History Acute and chronic respiratory failure with hypoxia Anxiety Anxiety and depression COPD (chronic obstructive pulmonary disease) + rare O2 PRN (no use x 1 year) COPD exacerbation Depression Pulmonary embolism Sarcoidosis stable Surgical History H/O arthroplasty H/O hysterectomy for benign disease (10/02/12) History of hip replacement Left PREETI: 09/11/17: SAB x 1 at L3-L4 at [facility] History of right shoulder replacement Hx of colonoscopy Hx of elbow surgery RIGHT Family History Father Myocardial infarction Brother Anxiety COPD (chronic obstructive pulmonary disease) Daughter Anxiety Sister Breast cancer Other Diabetes Kidney disease Denies family history of Ovarian cancer Prostate cancer Colorectal cancer Social History Smoking Status: Current every day smoker Tobacco Type: Cigarettes Cigarettes Per Day: 15; Second Hand Exposure: No; Do You Dip or Chew Tobacco: No; Tobacco Cessation Education Requested by Patient: No Hx Alcohol Use: No Hx Substance Use: No Preferred Language: Greek Communication Ability: Effective Visual Impairment: No Limitations Solutions Sales Executive Required: No Beliefs That Will Affect Care: None marital status: Current Living Situation: Spouse How many Children do You have: 2 Other Information That Helps Us Care for You: No Feels Safe at Home: Yes Safety Concerns: Feels Safe At This Time Assistive Devices: Oxygen - Continuous Review of Systems Review of Systems: Please refer to admission H&P. I have no changes Physical Exam Constitutional: + acute distress and + obese Neck: trachea midline, no thyromegaly Respiratory: + respiratory distress, + labored breathing and + uses accessory muscles; + not able to speak in complete sentence Auscultation: + wheezes Cardiovascular: RRR, no murmur, no edema Gastrointestinal (Abdomen): normal bowel sounds, soft, nontender, no hepatosplenomegaly Musculoskeletal: Extremities: extremities normal to inspection Skin: no rashes, warm and dry Neurologic: Nonfocal exam Lymphatic: no cervical lymphadenopathy Results & Data Results & Data ([facility]) Vital Signs (Past 12 Hours) Vital Signs Temp Pulse Pulse Resp BP Pulse Ox 01/14/21 07:46 36.5 C 99 H 22 120/76 96 01/14/21 07:22 99 H 01/14/21 06:33 94 H 20 97 01/14/21 03:34 36.7 C 103 H 22 130/65 94 01/13/21 23:45 36.4 C L 99 H 18 102/64 97 01/13/21 23:04 101 H Laboratory Results 01/14/21 07:55 Venous blood gas 01/12/2021 showed pH is 7.37 with a CO2 of 47 Diagnostic Findings Imaging studies were independently reviewed. CT angiogram 01/13/2021 independently reviewed. Advanced emphysematous changes. No airspace consolidation concerning for pneumonia identified. No acute changes. No pleural effusion. Multiple compression fractures are noted in the spine PFTs 09/30/2020: FVC of 70% predicted with an FEV1 of 37% predicted and a ratio 53. Total lung capacity 110% predicted with an RV of 159% predicted and diffusion capacity of 41% predicted. PG Care Time/CCT Total # of Minutes Spent Total Time Spent with Patient: Total time spent is greater than 50% in coordination of care (as documented) at patient's floor/unit and/or counseling patient: Coding Level of Care Code 28009 Initial Inpt Care Lvl 3 Diagnoses Acute hypoxemic respiratory failure J96.01 Acute respiratory distress R06.03 COPD exacerbation J44.1
[2021-01-14 08:43] LABS: BUN Creatinine Ratio 36.8 (10-20); Calcium 9.5 mg/dl (8.5-10.1); Creatinine Clr Calc Pharmacy 69.7 ml/min; Est GFR (African American) 93.3 ml/min; Est GFR (Non-African American) 80.5 ml/min; Potassium 4.3 mmol/L (3.5-5.1)
[2021-01-14] MEDS ORDERED: FORMOTEROL 20 MCG/2 ML VIAL NEB SCH (09:00)
[2021-01-14] MEDS ORDERED: VANCOMYCIN TROUGH ONE (10:30)
[2021-01-14] MEDS: methylPREDNISolone 125 MG in SYRINGE 0 ML IV SCH ×2 (12:40→20:51)
[2021-01-14] MEDS: FORMOTEROL 20 MCG/2 ML VIAL NEB SCH (20:00)
[2021-01-14] MEDS: RIVAROXABAN 20 MG TAB PO SCH (20:54)
[2021-01-14] MEDS: traZODone HCL 50 MG TAB PO SCH (20:54)
[2021-01-14] MEDS: LORazepam 1 MG TAB PO PRN (21:01)
[2021-01-15] MEDS: methylPREDNISolone 125 MG in SYRINGE 0 ML IV SCH ×3 (04:59→20:46)
[2021-01-15] MEDS: PANTOprazole 40 MG TAB PO SCH (05:00)
[2021-01-15] MEDS: BUDESONIDE 0.5 MG/2 ML VIAL (PULMICORT) NEB SCH ×2 (07:12→19:10)
[2021-01-15] MEDS: FORMOTEROL 20 MCG/2 ML VIAL NEB SCH ×2 (07:12→19:11)
[2021-01-15] MEDS: ALBUT/IPRATROP 3MG/0.5MG NEB 3 ML VIAL NEB SCH ×4 (07:13→19:11)
--- NOTE | 2021-01-15 07:16 | Hospitalist Progress Note ---
Date of Service January 15, 2021 Assessment & Plan (1) Pneumonia: Plan: 65 Yo F with past medical history of COPD, Active smoker (15/day), Pulmonary embolism (08/23), Sarcoidosis with VATS (granulomatous pneumonitis), chest wall pain, osteopetrosis, chronic sinusitis, DJD. 1) Acute hypoxemic respiratory failure and sepsis secondary to pneumonia Patient with a past medical history of COPD with frequent exacerbations clinical history of worsening shortness of breath, fevers, chills, aches and pains, coughing presents for evaluation of worsening shortness of breath. Patient uses 2L O2 at home, requiring 4 L on presentation to the ED to maintain saturations of 90%, patient has a fever on presentation, elevated respiratory rate, tachycardic, and initially hypotensive. She received 1 L of LR as a bolus and pressures improved. Patient reports her was sick recently, question etiology of infection either bacterial versus viral, given myalgias will obtain labs for influenza. Initially treated her septic presentation with broad- spectrum antibiotics and supportive care as indicated. -Blood cultures obtained and pending -Broad-spectrum coverage with cefepime and vancomycin and Azithro initially, cefepime and vancomycin discontinued -Guaifenesin/dextromethorphan every 6 hours for coughing -Continue home inhalers -Pulmonology consulted: Solu-Medrol 125 mg every 8 hours, and perforomist. Optimize inhaler regimen 2) COPD Contributing to current presentation continue home meds. -See above 3) Sarcoidosis No history of, follows with pulmonology, likely contributing to current presentation -Pulmonology feels her history of sarcoidosis is not actively contributing to her current presentation 4) Pulmonary embolism History of (08/23) on Xarelto 20 mg nightly -Continue Xarelto 5) Anxiety and depression -Continue lorazepam 1 mg daily as needed -Continue trazodone 50 mg at bedtime -Continue buspirone 10 mg bid 6) Tobacco use Pulm discussed smoking cessation with patient, patient has expressed motivation to quit. -Provide a nicotine patch -Requesting case management's assistance in obtaining Chantix for this patient 7) Chronic low back and rib pain -Continue cyclobenzaprine 10 mg 3 times daily as needed FENa: Heart healthy diet Code Status: Full code DVT PPX: On Xarelto PT/OT: Not indicated at present Case Management: Consulted Dispo: Telemetry (2) Acute hypoxemic respiratory failure: (3) SOB (shortness of breath): (4) COPD exacerbation: (5) Pulmonary embolism: (6) Anxiety and depression: (7) Osteoporosis: (8) Tobacco use disorder: (9) Postinflammatory pulmonary fibrosis: (10) Sepsis: Admission and Anticipated Discharge Date Admission Date: January 12, 2021 Supervising Physician Co-Signing Physician Notes I also saw the patient with the resident physician and confirmed patel portions of the history and physical examination. Agree with the impression and plan as noted in the resident documentation. Upon exam, the patient was seated in the bedside chair. She notes that she is feeling somewhat better when compared to yesterday, but estimates 25% of her baseline. Exam 121/79, 100, 18, 36.5, 95% on 3 L via nasal cannula Pleasant. Alert and oriented. Can speak in full sentences without pause Lungs with diffuse wheezing, but improved air exchange when compared to yesterday Heart mildly tachycardic, 90, regular Abdomen soft and nontender Extremities without edema Data WBC equal 8.34, hemoglobin 14.6 Sodium 141, potassium 4.2, BUN 30, creatinine 0.83 Impression and plan Acute on chronic hypoxic respiratory failure Chronic obstructive COPD Some improvement but still with significant wheezing Continue Solu-Medrol 120 mg every 8 hours, along with her inhaler regimen Azithromycin to 50 mg daily History of pulmonary embolism Continue Xarelto Smoking cessation Nicotine patch Counseling She apparently is used Chantix before but is no longer insurance Subjective 65yo Female admitted to hospital for worsening SOB and PNA, PMH COPD tobacco abuse PE sarcoidosis. At home she states she is usually on 2L oxygen, PCP is Nichole Antunez. Patient was seen at bedtime comfortable, slept ate well, voided normally. States she gets out of breath walking 2 steps from bed to portable toilet. She states her breathing is greatly improved compared to yesterday but she is not yet at 100%. Per nurse patient requested use of rescue inhaler this morning. Review of Systems Constitutional: no fever and no chills Ear, Nose, Mouth, Throat: no dizziness Respiratory: + cough, + dyspnea on exertion and + wheezing; no dyspnea Cardiovascular: no chest pain and no palpitations Gastrointestinal: no nausea, no vomiting, no constipation and no diarrhea/loose stools Integumentary: no rash Neurologic: no tingling, no numbness and no headache(s) Physical Exam Constitutional: + obese; no acute distress Neck: trachea midline, no thyromegaly Respiratory: + uses accessory muscles and able to speak in complete sentences; no respiratory distress and no labored breathing Auscultation: + wheezes; no rales and no rhonchi Cardiovascular: RRR, no murmur, no edema Heart Sounds: normal S1 and normal S2; no gallop, no murmur and no cardiac rub Gastrointestinal (Abdomen): normal bowel sounds, soft, nontender, no hepatosplenomegaly Inspection/Auscultation: abdomen not distended Musculoskeletal: Extremities: extremities normal to inspection Skin: no rashes, warm and dry Neurologic: Nonfocal exam Lymphatic: no cervical lymphadenopathy Results & Data Results & Data ([facility]) Vital Signs (Past 12 Hours) Vital Signs Temp Pulse Pulse Resp BP BP Pulse Ox 01/15/21 07:13 94 H 20 96 01/15/21 04:28 36.6 C 84 23 103/67 97 01/15/21 00:19 96 H 01/14/21 23:39 36.5 C 99 H 23 115/71 97 01/14/21 20:31 36.9 C 98 H 24 123/78 99 01/14/21 20:01 81 20 95 Laboratory Results 01/15/21 01/15/21 Range/Units 07:14 07:14 WBC 8.34 (4.8-10.8) K/uL RBC 4.60 (4.2-5.4) M/uL Hgb 14.6 (12.0-16.0) g/dL Hct 43.9 (37-47) % MCV 95.4 (80-100) fL MCH 31.7 (25-34) pg MCHC 33.3 (32-36) g/dL RDW Std Deviation 49.7 H (36.4-46.3) fL RDW Coeff of [place] 14.1 (11.5-14.5) % Plt Count 197 (130-400) K/uL MPV 10.4 (7.4-10.4) fL Immature Gran % (Auto) 0.1 % Neut % (Auto) 90.9 % Lymph % (Auto) 6.6 % [place] % (Auto) 2.4 % Eos % (Auto) 0.0 % Baso % (Auto) 0.0 % Neut # (Auto) 7.58 H (1.4-6.5) K/uL Lymph # (Auto) 0.55 L (1.2-3.4) K/uL [place] # (Auto) 0.20 (0.11-0.59) K/uL Eos # (Auto) 0.00 (0-0.5) K/uL Baso # (Auto) 0.00 (0-0.2) K/uL Immature Gran # (Auto) 0.01 (0.00-0.02) K/uL Sodium 141 (136-145) mmol/L Potassium 4.2 (3.5-5.1) mmol/L Chloride 106 (98-107) mmol/L Carbon Dioxide 31 (21-32) mmol/L Anion Gap 4.0 (3-11) BUN 30 H (7-18) mg/dl Creatinine 0.83 (0.6-1.2) mg/dl Est Cr Clr Drug Dosing 64.9 ml/min Est GFR ( Amer) 85.2 ml/min Est GFR (Non-Af Amer) 73.5 ml/min BUN/Creatinine Ratio 35.8 H (10-20) Glucose 122 H (70-99) mg/dl Calcium 9.3 (8.5-10.1) mg/dl Medications Administered Current Inpatient Medications Acetaminophen (Acetaminophen 500 Mg Tab) 1,000 mg PO Q8 PRN PRN Reason: Pain or Fever Stop: 02/11/21 10:33 Last Admin: 01/13/21 05:47 Dose: 1,000 mg Documented by: Albuterol (Albuterol Hfa 8 Gm Inhaler) 2 puffs INH QID PRN PRN Reason: Shortness Of Breath Or Wheezing Stop: 02/11/21 15:21 Last Admin: 01/15/21 09:25 Dose: 2 puffs Documented by: Albuterol (Albut/Ipratrop 3mg/0.5mg Neb 3 Ml Vial) 3 ml NEB QIDR HEATHER Stop: 02/12/21 08:59 Last Admin: 01/15/21 14:37 Dose: 3 ml Documented by: Azithromycin (Azithromycin 250 Mg Tab) 250 mg PO QAM [facility] Stop: 01/20/21 08:59 Last Admin: 01/15/21 08:03 Dose: 250 mg Documented by: Budesonide (Budesonide 0.5 Mg/2 Ml Vial (Pulmicort)) 0.5 mg NEB BIDR [facility] Stop: 02/12/21 18:59 Last Admin: 01/15/21 07:12 Dose: 0.5 mg Documented by: Buspirone HCl (Buspirone 5 Mg Tab) 10 mg PO BID [facility] Stop: 02/11/21 20:59 Last Admin: 01/15/21 08:03 Dose: 10 mg Documented by: Cyclobenzaprine HCl (Cyclobenzaprine Hcl 10 Mg Tab) 10 mg PO TID PRN PRN Reason: Muscle Spasm Stop: 02/11/21 15:40 Diclofenac Sodium (Diclofenac Sod 1% Gel 100 Gm Tube) 4 gm EXT DAILY PRN PRN Reason: Pain Stop: 02/11/21 15:21 Formoterol Fumarate (Formoterol 20 Mcg/2 Ml Vial) 20 mcg NEB BIDR [facility] Stop: 02/13/21 08:59 Last Admin: 01/15/21 07:12 Dose: 20 mcg Documented by: Guaifenesin (Guaifenesin 600 Mg Tabcr) 1,200 mg PO Q12 [facility] Stop: 02/13/21 08:59 Last Admin: 01/15/21 08:03 Dose: 1,200 mg Documented by: Guaifenesin/Dextromethorphan (Guaifenesin/Dextrom Syrup 200mg/20mg 10ml Udc) 10 ml PO Q6H PRN PRN Reason: cough Stop: 02/11/21 10:44 Methylprednisolone 125 mg/ (Syringe) 2 mls @ 1.5 mls/min IV Q8H [facility] Stop: 02/13/21 11:59 Last Admin: 01/15/21 11:33 Dose: 1.5 mls/min Documented by: Lorazepam (Lorazepam 1 Mg Tab) 1 mg PO DAILY PRN PRN Reason: Anxiety Stop: 02/11/21 15:40 Last Admin: 01/14/21 21:01 Dose: 1 mg Documented by: Miscellaneous (Remove Nicoderm Patch) 1 ea N/A DAILY@0859 [facility] Stop: 02/12/21 08:58 Last Admin: 01/15/21 08:01 Dose: 1 ea Documented by: Nicotine (Nicotine 14 Mg/24 Hr Patch) 14 mg TD QAM [facility] Stop: 02/12/21 08:59 Last Admin: 01/15/21 08:02 Dose: 14 mg Documented by: Ondansetron HCl (Ondansetron Inj 2 Mg/Ml 2 Ml Vial) 4 mg IV Q6H PRN PRN Reason: Nausea Stop: 02/11/21 10:33 Pantoprazole Sodium (Pantoprazole 40 Mg Tab) 40 mg PO DAILYBB [facility] Stop: 02/12/21 06:29 Last Admin: 01/15/21 05:00 Dose: 40 mg Documented by: Polyethylene Glycol (Polyethylene (Miralax) 17 Gm Pack) 17 gm PO BID [facility] Stop: 02/11/21 20:59 Last Admin: 01/15/21 08:02 Dose: Not Given Documented by: Rivaroxaban (Rivaroxaban 20 Mg Tab) 20 mg PO HS [facility] Stop: 02/11/21 20:59 Last Admin: 01/14/21 20:54 Dose: 20 mg Documented by: Trazodone HCl (Trazodone Hcl 50 Mg Tab) 50 mg PO [facility] Stop: 02/11/21 20:59 Last Admin: 01/14/21 20:54 Dose: 50 mg Documented by: Umeclidinium [place] (Umeclidinium [place] 62.5mcg/Blister 7 Puffs/Inhaler) 1 puffs INH QAM [facility] Stop: 02/12/21 08:59 Last Admin: 01/15/21 08:03 Dose: 1 puffs Documented by: Resident Activity Tracking Resident Involvement: Resident Care Provided Care Provided: Adult Hospital Medicine (1) Osteoporosis Osteoporosis type: unspecified Presence of current pathological fracture: without current pathological fracture Qualified Code(s): M81.0 - Age-related osteoporosis without current pathological fracture (2) Pulmonary embolism Acute cor pulmonale presence: with acute cor pulmonale Chronicity: chronic Pulmonary embolism type: other Qualified Code(s): I27.82 - Chronic pulmonary embolism; I26.09 - Other pulmonary embolism with acute cor pulmonale
[2021-01-15 07:40] LABS: Hematocrit (blood only) 43.9 % (37-47); Hemoglobin 14.6 g/dL (12.0-16.0); Immature Granulocytes # (auto) 0.01 K/uL (0.00-0.02); Immature Granulocytes % (auto) 0.1 %; Lymphocytes # (auto) 0.55 K/uL (1.2-3.4); Lymphocytes % (auto) 6.6 %; Mean Corpuscular Hemoglobin 31.7 pg (25-34); Mean Corpuscular Hgb Conc 33.3 g/dL (32-36); Mean Corpuscular Volume 95.4 fL (80-100); Mean Platelet Volume 10.4 fL (7.4-10.4); Monocytes % (auto) 2.4 %; Neutrophils # (auto) 7.58 K/uL (1.4-6.5); Neutrophils % (auto) 90.9 %; Platelet Count 197 K/uL (130-400); RDW Coefficient of Variation 14.1 % (11.5-14.5); RDW Standard Deviation 49.7 fL (36.4-46.3); White Blood Count 8.34 K/uL (4.8-10.8)
[2021-01-15] MEDS: POLYETHYLENE (MIRALAX) 17 GM PACK PO SCH ×2 (08:02→20:49)
[2021-01-15] MEDS: NICOTINE 14 MG/24 HR PATCH TD SCH (08:02)
[2021-01-15] MEDS: UMECLIDINIUM BROMIDE 62.5MCG/BLISTER 7 PUFFS/INHALER INH SCH (08:03)
[2021-01-15] MEDS: busPIRone 5 MG TAB PO SCH ×2 (08:03→20:47)
[2021-01-15] MEDS: guaiFENesin 600 MG TABCR PO SCH ×2 (08:03→20:48)
[2021-01-15] MEDS: AZITHROMYCIN 250 MG TAB PO SCH (08:03)
[2021-01-15 08:13] LABS: BUN Creatinine Ratio 35.8 (10-20); Calcium 9.3 mg/dl (8.5-10.1); Creatinine Clr Calc Pharmacy 64.9 ml/min; Est GFR (African American) 85.2 ml/min; Est GFR (Non-African American) 73.5 ml/min; Potassium 4.2 mmol/L (3.5-5.1)
--- NOTE | 2021-01-15 08:45 | Pulmonology Progress Note ---
Date of Service January 15, 2021 Assessment & Plan (1) Acute hypoxemic respiratory failure: Plan: Impression: 65-year-old female with advanced obstructive lung disease and ongoing tobacco abuse admitted with COPD exacerbation. She is improved this morning with adjustment in her medical regiment Recommendations: 1. Advanced COPD: Continue Solu-Medrol 125 mg every 8. Continue Perforomist, budesonide, and Incruse. Continue azithromycin 250 mg daily. Given her h ypercarbic respiratory failure, I would be reluctant to use sedatives or narcotics without her being and observed environment. Would not change her regimen until she demonstrates a little bit more clinical stability. 2. Hypoxemic hypercarbic respiratory failure: Discussed with patient at bedside the utility and potential need for noninvasive positive pressure ventilation. She states she cannot tolerate the mask. She would rather be intubated. We appear to have stave off intubation currently but will need to continue to follow closely. Continue supplemental oxygen titrated to keep saturations at or above 88% 3. Smoking cessation: Smoking cessation again addressed with the patient. She states she is now motivated to consider smoking cessation and plans on quitting leaving the hospital. Will need to assess for nicotine replacement as well as adjuvants. Consider referral to smoking cessation course at discharge. 4. Prior history of sarcoid: This does not appear to be clinically active and is not likely compromising her current respiratory issues. They appear to be more related to her underlying COPD and emphysema. We will continue to follow with you. Feel free to contact us with questions or concerns (2) Acute respiratory distress: (3) COPD exacerbation: Admission and Anticipated Discharge Date Admission Date: January 12, 2021 Subjective Patient seen and examined. She states she is feeling better this morning. She continues to experience shortness of breath with any significant physical activity but is okay at rest. She was able to sleep last night. She is not coughing or expectorating phlegm. Review of Systems Review of Systems: Unchanged from prior Physical Exam Constitutional: + obese; no acute distress Neck: trachea midline, no thyromegaly Respiratory: + uses accessory muscles and able to speak in complete sentences; no respiratory distress and no labored breathing Auscultation: + wheezes Cardiovascular: RRR, no murmur, no edema Gastrointestinal (Abdomen): normal bowel sounds, soft, nontender, no hep atosplenomegaly Musculoskeletal: Extremities: extremities normal to inspection Skin: no rashes, warm and dry Neurologic: Nonfocal exam Lymphatic: no cervical lymphadenopathy Results & Data Results & Data ([facility]) Vital Signs (Past 12 Hours) Vital Signs Temp Pulse Pulse Resp BP BP Pulse Ox 01/15/21 07:48 36.8 C 92 H 16 120/78 96 01/15/21 07:13 94 H 20 96 01/15/21 04:28 36.6 C 84 23 103/67 97 01/15/21 00:19 96 H 01/14/21 23:39 36.5 C 99 H 23 115/71 97 Laboratory Results 01/15/21 07:14 01/15/21 07:14 Diagnostic Findings No new imaging PG Care Time/CCT Total # of Minutes Spent Total Time Spent with Patient: Total time spent is greater than 50% in coordination of care (as documented) at patient's floor/unit and/or counseling patient: Coding Level of Care Code 03555 Subseq Hosp Care Lvl 3 Diagnoses Acute hypoxemic respiratory failure J96.01 Acute respiratory distress R06.03 COPD exacerbation J44.1
[2021-01-15] MEDS: ALBUTEROL HFA 8 GM INHALER INH PRN (09:25)
[2021-01-15] MEDS: RIVAROXABAN 20 MG TAB PO SCH (20:49)
[2021-01-15] MEDS: LORazepam 1 MG TAB PO PRN (20:50)
[2021-01-15] MEDS: traZODone HCL 50 MG TAB PO SCH (20:50)
[2021-01-16] MEDS: PANTOprazole 40 MG TAB PO SCH (04:41)
[2021-01-16] MEDS: methylPREDNISolone 125 MG in SYRINGE 0 ML IV SCH ×3 (04:41→20:05)
[2021-01-16 06:34] LABS: Basophils # (auto) 0.01 K/uL (0-0.2); Basophils % (auto) 0.1 %; Hematocrit (blood only) 41.9 % (37-47); Hemoglobin 14.2 g/dL (12.0-16.0); Immature Granulocytes # (auto) 0.04 K/uL (0.00-0.02); Immature Granulocytes % (auto) 0.6 %; Lymphocytes # (auto) 0.68 K/uL (1.2-3.4); Lymphocytes % (auto) 9.9 %; Mean Corpuscular Hemoglobin 31.9 pg (25-34); Mean Corpuscular Hgb Conc 33.9 g/dL (32-36); Mean Corpuscular Volume 94.2 fL (80-100); Mean Platelet Volume 10.2 fL (7.4-10.4); Monocytes # (auto) 0.29 K/uL (0.11-0.59); Monocytes % (auto) 4.2 %; Neutrophils # (auto) 5.87 K/uL (1.4-6.5); Neutrophils % (auto) 85.2 %; Platelet Count 199 K/uL (130-400); RDW Coefficient of Variation 13.9 % (11.5-14.5); Red Blood Count 4.45 M/uL (4.2-5.4); White Blood Count 6.89 K/uL (4.8-10.8)
[2021-01-16 07:05] LABS: BUN Creatinine Ratio 36.5 (10-20); Calcium 9.2 mg/dl (8.5-10.1); Creatinine Clr Calc Pharmacy 63.5 ml/min; Est GFR (African American) 82.8 ml/min; Est GFR (Non-African American) 71.4 ml/min; Potassium 4.4 mmol/L (3.5-5.1)
[2021-01-16] MEDS: guaiFENesin 600 MG TABCR PO SCH ×2 (07:26→20:08)
[2021-01-16] MEDS: NICOTINE 14 MG/24 HR PATCH TD SCH (07:27)
[2021-01-16] MEDS: busPIRone 5 MG TAB PO SCH ×2 (07:27→20:07)
[2021-01-16] MEDS: UMECLIDINIUM BROMIDE 62.5MCG/BLISTER 7 PUFFS/INHALER INH SCH (07:29)
--- NOTE | 2021-01-16 07:34 | Hospitalist Progress Note ---
Date of Service January 16, 2021 Assessment & Plan (1) Pneumonia: Plan: 65 Yo F with past medical history of COPD, Active smoker (15/day), Pulmonary embolism (08/23), Sarcoidosis with VATS (granulomatous pneumonitis), chest wall pain, osteopetrosis, chronic sinusitis, DJD. 1) Acute hypoxemic respiratory failure and sepsis secondary to pneumonia Patient with a past medical history of COPD with frequent exacerbations clinical history of worsening shortness of breath, fevers, chills, aches and pains, coughing presents for evaluation of worsening shortness of breath. Patient uses 2L O2 at home, requiring 4 L on presentation to the ED to maintain saturations of 90%, patient has a fever on presentation, elevated respiratory rate, tachycardic, and initially hypotensive. She received 1 L of LR as a bolus and pressures improved. Patient reports her was sick recently, question etiology of infection either bacterial versus viral, given myalgias will obtain labs for influenza. Initially treated her septic presentation with broad- spectrum antibiotics and supportive care as indicated. -Blood cultures 01/12/21 pending -Broad-spectrum coverage with cefepime and vancomycin and Azithro initially, cefepime and vancomycin discontinued -Guaifenesin/dextromethorphan every 6 hours for coughing -Continue home inhalers -Pulmonology consulted: Solu-Medrol 125 mg every 8 hours, Perforomist, budesonide, and Incruse. Will not change regime until patient more stable 2) COPD Contributing to current presentation continue home meds. -See above 3) Sarcoidosis No history of, follows with pulmonology, likely contributing to current presentation -Pulmonology feels her history of sarcoidosis is not actively contributing to her current presentation 4) Pulmonary embolism History of (08/23) on Xarelto 20 mg nightly -Continue Xarelto 5) Anxiety and depression -Continue lorazepam 1 mg daily as needed -Continue trazodone 50 mg at bedtime -Continue buspirone 10 mg bid 6) Tobacco use Pulm discussed smoking cessation with patient, patient has expressed motivation to quit. -Provide a nicotine patch -Requesting case management's assistance in obtaining Chantix for this patient 7) Chronic low back and rib pain -Continue cyclobenzaprine 10 mg 3 times daily as needed FENa: Heart healthy diet Code Status: Full code DVT PPX: On Xarelto PT/OT: Not indicated at present Case Management: Consulted Dispo: Telemetry (2) Acute hypoxemic respiratory failure: (3) SOB (shortness of breath): (4) COPD exacerbation: (5) Pulmonary embolism: (6) Anxiety and depression: (7) Osteoporosis: (8) Tobacco use disorder: (9) Postinflammatory pulmonary fibrosis: (10) Sepsis: Admission and Anticipated Discharge Date Admission Date: January 12, 2021 Supervising Physician Co-Signing Physician Notes I also saw the patient with the resident physician and confirmed patel portions of the history and physical examination. Agree with the impression and plan as noted in the resident documentation. Upon exam, the patient is sleeping although awakens to voice. She is able speak in complete sentences. She feels she is a little better than yesterday. She tells me she was able to sleep through the night (despite steroids) and did not wake up short of breath or coughing. Exam 119/81, 85, 19, 36.5, 98% on 3 L/min Ple[place]. Alert and oriented. Can speak in full sentences without pause Lungs with diffuse wheezing; wheezing is more audible and lungs generally coarse which I think represents improved airflow Heart mildly tachycardic, mid 80s, regular Abdomen soft and nontender Extremities without edema Data White blood cell count 6.9, hemoglobin 14.2 Sodium 142, potassium 4.4, BUN 31, creatinine 0.5 Impression and plan Acute on chronic hypoxic respiratory failure Chronic obstructive COPD Some improvement but still with significant wheezing Continue Solu-Medrol 120 mg every 8 hours, along with her inhaler regimen If she continues to improve, could consider decreasing Solu-Medrol tomorrow. Supplemental oxygen Azithromycin to 500 mg daily History of pulmonary embolism Continue Xarelto Smoking cessation Nicotine patch Counseling She apparently is used Chantix before but is no longer insurance Subjective 65yo Female admitted to hospital for worsening SOB and PNA, PMH COPD tobacco abuse PE sarcoidosis. At home she states she is usually on 2L oxygen, gets SOB walking unassisted across room to bathroom, PCP is Nichole Antunez. Patient was seen at bedtime comfortable, slept ate well, voided normally. States currently she gets out of breath walking 2 steps from bed to portable toilet. Per nurse this morning tried weaning her to 2L O2, patient could not tolerated, placed back on 3L. Review of Systems Constitutional: no fever and no chills Ear, Nose, Mouth, Throat: no dizziness Respiratory: + cough, + dyspnea on exertion and + wheezing; no dyspnea Cardiovascular: no chest pain and no palpitations Gastrointestinal: no nausea, no vomiting, no constipation and no diarrhea/loose stools Integumentary: no rash Neurologic: no tingling, no numbness and no headache(s) Physical Exam Constitutional: + obese; no acute distress Neck: trachea midline, no thyromegaly Respiratory: able to speak in complete sentences; no respiratory distress and no labored breathing Auscultation: + wheezes (Louder today, more air flow); no rales and no rhonchi Cardiovascular: RRR, no murmur, no edema Heart Sounds: normal S1 and normal S2; no gallop, no murmur and no cardiac rub Gastrointestinal (Abdomen): normal bowel sounds, soft, nontender, no hepatosplenomegaly Inspection/Auscultation: abdomen not distended Musculoskeletal: Extremities: extremities normal to inspection Skin: no rashes, warm and dry Lymphatic: no cervical lymphadenopathy Results & Data Results & Data ([facility]) Vital Signs (Past 12 Hours) Vital Signs Temp Pulse Pulse Resp BP BP Pulse Ox 01/16/21 07:30 36.5 C 92 H 18 115/71 94 01/16/21 04:35 36.4 C L 94 H 22 116/79 94 01/16/21 00:44 96 H 01/15/21 23:36 36.8 C 94 H 20 127/80 94 Laboratory Results 01/16/21 01/16/21 Range/Units 05:53 05:53 WBC 6.89 (4.8-10.8) K/uL RBC 4.45 (4.2-5.4) M/uL Hgb 14.2 (12.0-16.0) g/dL Hct 41.9 (37-47) % MCV 94.2 (80-100) fL MCH 31.9 (25-34) pg MCHC 33.9 (32-36) g/dL RDW Std Deviation 48.0 H (36.4-46.3) fL RDW Coeff of [place] 13.9 (11.5-14.5) % Plt Count 199 (130-400) K/uL MPV 10.2 (7.4-10.4) fL Immature Gran % (Auto) 0.6 % Neut % (Auto) 85.2 % Lymph % (Auto) 9.9 % [place] % (Auto) 4.2 % Eos % (Auto) 0.0 % Baso % (Auto) 0.1 % Neut # (Auto) 5.87 (1.4-6.5) K/uL Lymph # (Auto) 0.68 L (1.2-3.4) K/uL [place] # (Auto) 0.29 (0.11-0.59) K/uL Eos # (Auto) 0.00 (0-0.5) K/uL Baso # (Auto) 0.01 (0-0.2) K/uL Immature Gran # (Auto) 0.04 H (0.00-0.02) K/uL Sodium 142 (136-145) mmol/L Potassium 4.4 (3.5-5.1) mmol/L Chloride 105 (98-107) mmol/L Carbon Dioxide 35 H (21-32) mmol/L Anion Gap 2.0 L (3-11) BUN 31 H (7-18) mg/dl Creatinine 0.85 (0.6-1.2) mg/dl Est Cr Clr Drug Dosing 63.5 ml/min Est GFR ( Amer) 82.8 ml/min Est GFR (Non-Af Amer) 71.4 ml/min BUN/Creatinine Ratio 36.5 H (10-20) Glucose 135 H (70-99) mg/dl Calcium 9.2 (8.5-10.1) mg/dl Medications Administered Current Inpatient Medications Acetaminophen (Acetaminophen 500 Mg Tab) 1,000 mg PO Q8 PRN PRN Reason: Pain or Fever Stop: 02/11/21 10:33 Last Admin: 01/13/21 05:47 Dose: 1,000 mg Documented by: Albuterol (Albuterol Hfa 8 Gm Inhaler) 2 puffs INH QID PRN PRN Reason: Shortness Of Breath Or Wheezing Stop: 02/11/21 15:21 Last Admin: 01/15/21 09:25 Dose: 2 puffs Documented by: Albuterol (Albut/Ipratrop 3mg/0.5mg Neb 3 Ml Vial) 3 ml NEB QIDR [facility] Stop: 02/12/21 08:59 Last Admin: 01/16/21 11:01 Dose: 3 ml Documented by: Azithromycin (Azithromycin 250 Mg Tab) 250 mg PO QAM [facility] Stop: 01/20/21 08:59 Last Admin: 01/15/21 08:03 Dose: 250 mg Documented by: Budesonide (Budesonide 0.5 Mg/2 Ml Vial (Pulmicort)) 0.5 mg NEB BIDR [facility] Stop: 02/12/21 18:59 Last Admin: 01/16/21 07:35 Dose: 0.5 mg Documented by: Buspirone HCl (Buspirone 5 Mg Tab) 10 mg PO BID [facility] Stop: 02/11/21 20:59 Last Admin: 01/16/21 07:27 Dose: 10 mg Documented by: Cyclobenzaprine HCl (Cyclobenzaprine Hcl 10 Mg Tab) 10 mg PO TID PRN PRN Reason: Muscle Spasm Stop: 02/11/21 15:40 Diclofenac Sodium (Diclofenac Sod 1% Gel 100 Gm Tube) 4 gm EXT DAILY PRN PRN Reason: Pain Stop: 02/11/21 15:21 Formoterol Fumarate (Formoterol 20 Mcg/2 Ml Vial) 20 mcg NEB BIDR [facility] Stop: 02/13/21 08:59 Last Admin: 01/16/21 07:35 Dose: 20 mcg Documented by: Guaifenesin (Guaifenesin 600 Mg Tabcr) 1,200 mg PO Q12 [facility] Stop: 02/13/21 08:59 Last Admin: 01/16/21 07:26 Dose: 1,200 mg Documented by: Guaifenesin/Dextromethorphan (Guaifenesin/Dextrom Syrup 200mg/20mg 10ml Udc) 10 ml PO Q6H PRN PRN Reason: cough Stop: 02/11/21 10:44 Methylprednisolone 125 mg/ (Syringe) 2 mls @ 1.5 mls/min IV Q8H [facility] Stop: 02/13/21 11:59 Last Admin: 01/16/21 04:41 Dose: 1.5 mls/min Documented by: Lorazepam (Lorazepam 1 Mg Tab) 1 mg PO DAILY PRN PRN Reason: Anxiety Stop: 02/11/21 15:40 Last Admin: 01/15/21 20:50 Dose: 1 mg Documented by: Miscellaneous (Remove Nicoderm Patch) 1 ea N/A DAILY@0859 [facility] Stop: 02/12/21 08:58 Last Admin: 01/16/21 07:33 Dose: 1 ea Documented by: Nicotine (Nicotine 14 Mg/24 Hr Patch) 14 mg TD QAM [facility] Stop: 02/12/21 08:59 Last Admin: 01/16/21 07:27 Dose: 14 mg Documented by: Ondansetron HCl (Ondansetron Inj 2 Mg/Ml 2 Ml Vial) 4 mg IV Q6H PRN PRN Reason: Nausea Stop: 02/11/21 10:33 Pantoprazole Sodium (Pantoprazole 40 Mg Tab) 40 mg PO DAILYBB [facility] Stop: 02/12/21 06:29 Last Admin: 01/16/21 04:41 Dose: 40 mg Documented by: Polyethylene Glycol (Polyethylene (Miralax) 17 Gm Pack) 17 gm PO BID [facility] Stop: 02/11/21 20:59 Last Admin: 01/15/21 20:49 Dose: Not Given Documented by: Rivaroxaban (Rivaroxaban 20 Mg Tab) 20 mg PO HS [facility] Stop: 02/11/21 20:59 Last Admin: 01/15/21 20:49 Dose: 20 mg Documented by: Trazodone HCl (Trazodone Hcl 50 Mg Tab) 50 mg PO [facility] Stop: 02/11/21 20:59 Last Admin: 01/15/21 20:50 Dose: 50 mg Documented by: Umeclidinium [place] (Umeclidinium [place] 62.5mcg/Blister 7 Puffs/Inhaler) 1 puffs INH [facility] Stop: 02/12/21 08:59 Last Admin: 01/16/21 07:29 Dose: 1 puffs Documented by: Resident Activity Tracking Resident Involvement: Resident Care Provided Care Provided: Adult Hospital Medicine (1) Osteoporosis Osteoporosis type: unspecified Presence of current pathological fracture: without current pathological fracture Qualified Code(s): M81.0 - Age-related osteoporosis without current pathological fracture (2) Pulmonary embolism Acute cor pulmonale presence: with acute cor pulmonale Chronicity: chronic Pulmonary embolism type: other Qualified Code(s): I27.82 - Chronic pulmonary embolism; I26.09 - Other pulmonary embolism with acute cor pulmonale
[2021-01-16] MEDS: BUDESONIDE 0.5 MG/2 ML VIAL (PULMICORT) NEB SCH ×2 (07:35→19:45)
[2021-01-16] MEDS: FORMOTEROL 20 MCG/2 ML VIAL NEB SCH ×2 (07:35→19:45)
[2021-01-16] MEDS: AZITHROMYCIN 250 MG TAB PO SCH (09:00)
--- NOTE | 2021-01-16 10:38 | Pulmonology Progress Note ---
Date of Service January 16, 2021 Assessment & Plan (1) Acute hypoxemic respiratory failure: Plan: Impression: 65-year-old female with advanced obstructive lung disease and ongoing tobacco abuse admitted with COPD exacerbation. She is showing slow and steady improvement. Not ready to transition from parenteral steroids just yet. Recommendations: 1. Advanced COPD: Continue Solu-Medrol 125 mg every 8. Continue Perforomist, budesonide, and Incruse. Continue azithromycin 250 mg daily. Would not change her regimen until she demonstrates a little bit more clinical stability. She is making some progress albeit slowly. 2. Hypoxemic hypercarbic respiratory failure: Continue to follow closely. Continue supplemental oxygen titrated to keep saturations at or above 88% 3. Smoking cessation: Smoking cessation again addressed with the patient. She states she is now motivated to consider smoking cessation and plans on quitting leaving the hospital. Will need to assess for nicotine replacement as well as adjuvants. Consider referral to smoking cessation course at discharge. 4. Prior history of sarcoid: This does not appear to be clinically active and is not likely compromising her current respiratory issues. They appear to be more related to her underlying COPD and emphysema. We will continue to follow with you. (2) Acute respiratory distress: (3) COPD exacerbation: Admission and Anticipated Discharge Date Admission Date: January 12, 2021 Subjective Patient seen and examined. She is sleeping comfortably supine. She feels her respiratory status is improving. She is been able to get up to the chair at bedside on a few occasions. She does feel winded but is recovering faster. She is not expectorating any phlegm. No chest pain or palpitations. Review of Systems Review of Systems: Unchanged from prior Physical Exam Constitutional: + obese; no acute distress Neck: trachea midline, no thyromegaly Respiratory: able to speak in complete sentences; no respiratory distress and no labored breathing Auscultation: + wheezes Cardiovascular: RRR, no murmur, no edema Gastrointestinal (Abdomen): normal bowel sounds, soft, nontender, no hepatosplenomegaly Musculoskeletal: Extremities: extremities normal to inspection Skin: no rashes, warm and dry Lymphatic: no cervical lymphadenopathy Results & Data Results & Data ([facility]) Vital Signs (Past 12 Hours) Vital Signs Temp Pulse Pulse Resp BP BP Pulse Ox 01/16/21 08:52 01/16/21 08:49 85 01/16/21 08:45 01/16/21 07:36 94 H 18 97 01/16/21 07:30 36.5 C 92 H 18 115/71 94 01/16/21 04:35 36.4 C L 94 H 22 116/79 94 01/16/21 00:44 96 H 01/15/21 23:36 36.8 C 94 H 20 127/80 94 Pulse Ox 01/16/21 08:52 97 01/16/21 08:49 01/16/21 08:45 97 01/16/21 07:36 01/16/21 07:30 01/16/21 04:35 01/16/21 00:44 01/15/21 23:36 Laboratory Results 01/16/21 05:53 01/16/21 05:53 Diagnostic Findings No new imaging PG Care Time/CCT Total # of Minutes Spent Total Time Spent with Patient: Total time spent is greater than 50% in coordination of care (as documented) at patient's floor/unit and/or counseling patient: Coding Level of Care Code 05321 Subseq Hosp Care Lvl 2 Diagnoses Acute hypoxemic respiratory failure J96.01 Acute respiratory distress R06.03 COPD exacerbation J44.1
[2021-01-16] MEDS: ALBUT/IPRATROP 3MG/0.5MG NEB 3 ML VIAL NEB SCH ×5 (11:01→19:48)
[2021-01-16] MEDS: POLYETHYLENE (MIRALAX) 17 GM PACK PO SCH ×2 (14:47→20:08)
[2021-01-16] MEDS: RIVAROXABAN 20 MG TAB PO SCH (20:08)
[2021-01-16] MEDS: traZODone HCL 50 MG TAB PO SCH (20:09)
[2021-01-16] MEDS: LORazepam 1 MG TAB PO PRN (20:09)
[2021-01-17] MEDS: methylPREDNISolone 125 MG in SYRINGE 0 ML IV SCH ×3 (04:11→20:12)
[2021-01-17] MEDS: PANTOprazole 40 MG TAB PO SCH (04:11)
[2021-01-17] MEDS: AZITHROMYCIN 250 MG TAB PO SCH (07:17)
[2021-01-17] MEDS: FORMOTEROL 20 MCG/2 ML VIAL NEB SCH ×2 (07:17→19:50)
[2021-01-17] MEDS: guaiFENesin 600 MG TABCR PO SCH ×2 (07:17→20:13)
[2021-01-17] MEDS: ALBUT/IPRATROP 3MG/0.5MG NEB 3 ML VIAL NEB SCH ×4 (07:18→19:51)
[2021-01-17] MEDS: BUDESONIDE 0.5 MG/2 ML VIAL (PULMICORT) NEB SCH ×2 (07:18→19:50)
[2021-01-17] MEDS: busPIRone 5 MG TAB PO SCH ×2 (07:18→20:12)
[2021-01-17] MEDS: NICOTINE 14 MG/24 HR PATCH TD SCH (07:20)
[2021-01-17] MEDS: UMECLIDINIUM BROMIDE 62.5MCG/BLISTER 7 PUFFS/INHALER INH SCH (07:21)
[2021-01-17] MEDS: POLYETHYLENE (MIRALAX) 17 GM PACK PO SCH ×2 (09:18→20:15)
[2021-01-17 09:24] LABS: BUN Creatinine Ratio 34.9 (10-20); Creatinine Clr Calc Pharmacy 57.5 ml/min; Est GFR (African American) 73.3 ml/min; Est GFR (Non-African American) 63.2 ml/min; Potassium 4.3 mmol/L (3.5-5.1)
[2021-01-17 09:25] LABS: Calcium 8.8 mg/dl (8.5-10.1)
--- NOTE | 2021-01-17 09:45 | Hospitalist Progress Note ---
Date of Service January 17, 2021 Assessment & Plan (1) Pneumonia: Plan: 65 Yo F with past medical history of COPD, Active smoker (15/day), Pulmonary embolism (08/23), Sarcoidosis with VATS (granulomatous pneumonitis), chest wall pain, osteopetrosis, chronic sinusitis, DJD. 1) Acute hypoxemic respiratory failure and sepsis secondary to pneumonia Patient with a past medical history of COPD with frequent exacerbations clinical history of worsening shortness of breath, fevers, chills, aches and pains, coughing presents for evaluation of worsening shortness of breath. Patient uses 2L O2 at home, requiring 4 L on presentation to the ED to maintain saturations of 90%, patient has a fever on presentation, elevated respiratory rate, tachycardic, and initially hypotensive. She received 1 L of LR as a bolus and pressures improved. Patient reports her was sick recently, question etiology of infection either bacterial versus viral, given myalgias will obtain labs for influenza. Initially treated her septic presentation with broad- spectrum antibiotics and supportive care as indicated. Blood cultures 01/12/21 negative -continue treatment with azithromycin -Guaifenesin/dextromethorphan every 6 hours for coughing -Continue home inhalers -Pulmonology consulted: Solu-Medrol 125 mg every 8 hours, Perforomist, budesonide, and Incruse. Will not change regime until patient more stable -trend bmp, cbc -will follow up with outpt pulm 2) COPD Contributing to current presentation continue home meds. -See above 3) Sarcoidosis No history of, follows with pulmonology, likely contributing to current presentation -Pulmonology feels her history of sarcoidosis is not actively contributing to her current presentation 4) Pulmonary embolism History of (08/23) on Xarelto 20 mg nightly -Continue Xarelto 5) Anxiety and depression -Continue lorazepam 1 mg daily as needed -Continue trazodone 50 mg at bedtime -Continue buspirone 10 mg bid 6) Tobacco use Pulm discussed smoking cessation with patient, patient has expressed motivation to quit. -Provide a nicotine patch -Requesting case management's assistance in obtaining Chantix for this patient 7) Chronic low back and rib pain -Continue cyclobenzaprine 10 mg 3 times daily as needed FENa: Heart healthy diet Code Status: Full code DVT PPX: On Xarelto PT/OT: Not indicated at present Case Management: Consulted Dispo: Telemetry Admission and Anticipated Discharge Date Admission Date: January 12, 2021 Supervising Physician Co-Signing Physician Notes I also saw the patient with the resident physician and confirmed patel portions of the history and physical examination. Agree with the impression and plan as noted in the resident documentation. Upon our visit late this morning, she actually seems a little bit more short of breath than yesterday although we caught her just after she finished physical therapy and while she was starting to eat lunch. Overall, she feels about the same although she does admit she is little bit more short of breath at this present time. She notes that with physical therapy her SPO2 dropped to the low to mid 80s. Exam 158/84, 87, 18, 36.8, 97% on 2 L via nasal cannula Pleasant. Alert and oriented. Can speak in full sentences without pause Lungs with diffuse wheezing Heart mildly tachycardic Abdomen soft and nontender Extremities without edema Data Sodium 139, potassium 4.3, BUN 33, creatinine 0.94. Impression and plan Acute on chronic hypoxic respiratory failure Chronic obstructive COPD Some improvement but still with significant wheezing, and really minimal exertional capacity Continue Solu-Medrol 120 mg every 8 hours, along with her inhaler regimen If she continues to improve, could consider decreasing Solu-Medrol tomorrow. Supplemental oxygen Azithromycin to 500 mg daily History of pulmonary embolism Continue Xarelto Smoking cessation Nicotine patch Counseling She apparently utilized Chantix before but this is no longer covered by her insurance Subjective 65yo Female admitted to hospital for worsening SOB and PNA, PMH COPD tobacco abuse PE sarcoidosis. At home she states she is usually on 2L oxygen, gets SOB walking unassisted across room to bathroom, PCP is Nichole Antunez. Patient was seen at bedtime comfortable, slept ate well, voided normally. She says her breathing feels similar to yesterday. States currently she gets out of breath walking 2 steps from bed to portable toilet. Saw PT today, they tried to wean her to 2L. She is currently on 2L O2. Review of Systems Constitutional: no fever and no chills Ear, Nose, Mouth, Throat: no dizziness Respiratory: + dyspnea on exertion and + wheezing; no cough and no dyspnea Cardiovascular: no chest pain and no palpitations Gastrointestinal: no nausea, no vomiting, no constipation and no diarrhea/loose stools Musculoskeletal: no back pain and no neck pain Integumentary: no rash Neurologic: no tingling, no numbness and no headache(s) Psychiatric: no behavioral changes Physical Exam Constitutional: + obese; no acute distress Neck: trachea midline, no thyromegaly Respiratory: able to speak in complete sentences; no respiratory distress and no labored breathing Auscultation: + wheezes; no rales and no rhonchi Cardiovascular: RRR, no murmur, no edema Heart Sounds: normal S1 and normal S2; no gallop, no murmur and no cardiac rub Gastrointestinal (Abdomen): normal bowel sounds, soft, nontender, no hepatosplenomegaly Inspection/Auscultation: abdomen not distended Musculoskeletal: Extremities: extremities normal to inspection Skin: no rashes, warm and dry Lymphatic: no cervical lymphadenopathy Results & Data Results & Data ([facility]) Vital Signs (Past 12 Hours) Vital Signs Temp Pulse Pulse Resp BP BP Pulse Ox 01/17/21 08:00 81 01/17/21 07:44 36.9 C 90 22 135/89 93 01/17/21 07:18 89 18 97 01/17/21 04:27 36.4 C L 83 14 118/78 94 01/17/21 01:43 86 Laboratory Results 01/17/21 Range/Units 08:46 Sodium 139 (136-145) mmol/L Potassium 4.3 (3.5-5.1) mmol/L Chloride 103 (98-107) mmol/L Carbon Dioxide 35 H (21-32) mmol/L Anion Gap 2.0 L (3-11) BUN 33 H (7-18) mg/dl Creatinine 0.94 (0.6-1.2) mg/dl Est Cr Clr Drug Dosing 57.5 ml/min Est GFR ( Amer) 73.3 ml/min Est GFR (Non-Af Amer) 63.2 ml/min BUN/Creatinine Ratio 34.9 H (10-20) Glucose 188 H (70-99) mg/dl Calcium 8.8 (8.5-10.1) mg/dl Medications Administered Current Inpatient Medications Acetaminophen (Acetaminophen 500 Mg Tab) 1,000 mg PO Q8 PRN PRN Reason: Pain or Fever Stop: 02/11/21 10:33 Last Admin: 01/13/21 05:47 Dose: 1,000 mg Documented by: Albuterol (Albuterol Hfa 8 Gm Inhaler) 2 puffs INH QID PRN PRN Reason: Shortness Of Breath Or Wheezing Stop: 02/11/21 15:21 Last Admin: 01/15/21 09:25 Dose: 2 puffs Documented by: Albuterol (Albut/Ipratrop 3mg/0.5mg Neb 3 Ml Vial) 3 ml NEB QIDR [facility] Stop: 02/12/21 08:59 Last Admin: 01/17/21 15:22 Dose: 3 ml Documented by: Azithromycin (Azithromycin 250 Mg Tab) 250 mg PO QAM [facility] Stop: 01/20/21 08:59 Last Admin: 01/17/21 07:17 Dose: 250 mg Documented by: Budesonide (Budesonide 0.5 Mg/2 Ml Vial (Pulmicort)) 0.5 mg NEB BIDR [facility] Stop: 02/12/21 18:59 Last Admin: 01/17/21 07:18 Dose: 0.5 mg Documented by: Buspirone HCl (Buspirone 5 Mg Tab) 10 mg PO BID [facility] Stop: 02/11/21 20:59 Last Admin: 01/17/21 07:18 Dose: 10 mg Documented by: Cyclobenzaprine HCl (Cyclobenzaprine Hcl 10 Mg Tab) 10 mg PO TID PRN PRN Reason: Muscle Spasm Stop: 02/11/21 15:40 Diclofenac Sodium (Diclofenac Sod 1% Gel 100 Gm Tube) 4 gm EXT DAILY PRN PRN Reason: Pain Stop: 02/11/21 15:21 Formoterol Fumarate (Formoterol 20 Mcg/2 Ml Vial) 20 mcg NEB BIDR [facility] Stop: 02/13/21 08:59 Last Admin: 01/17/21 07:17 Dose: 20 mcg Documented by: Guaifenesin (Guaifenesin 600 Mg Tabcr) 1,200 mg PO Q12 [facility] Stop: 02/13/21 08:59 Last Admin: 01/17/21 07:17 Dose: 1,200 mg Documented by: Methylprednisolone 125 mg/ (Syringe) 2 mls @ 1.5 mls/min IV Q8H [facility] Stop: 02/13/21 11:59 Last Admin: 01/17/21 11:59 Dose: 1.5 mls/min Documented by: Lorazepam (Lorazepam 1 Mg Tab) 1 mg PO DAILY PRN PRN Reason: Anxiety Stop: 02/11/21 15:40 Last Admin: 01/16/21 20:09 Dose: 1 mg Documented by: Miscellaneous (Remove Nicoderm Patch) 1 ea N/A DAILY@0859 [facility] Stop: 02/12/21 08:58 Last Admin: 01/17/21 07:19 Dose: 1 ea Documented by: Montelukast Sodium (Montelukast Sodium 10 Mg Tablet) 10 mg PO [facility] Stop: 02/16/21 20:59 Nicotine (Nicotine 14 Mg/24 Hr Patch) [facility] 02/12/21 08:59 Last Admin: 01/17/21 07:20 Dose: 14 mg Documented by: Ondansetron HCl (Ondansetron Inj 2 Mg/Ml 2 Ml Vial) 4 mg IV Q6H PRN PRN Reason: Nausea Stop: 02/11/21 10:33 Pantoprazole Sodium (Pantoprazole 40 Mg Tab) 40 mg PO DAILYBB [facility] Stop: 02/12/21 06:29 Last Admin: 01/17/21 04:11 Dose: 40 mg Documented by: Polyethylene Glycol (Polyethylene (Miralax) 17 Gm Pack) 17 gm PO BID [facility] Stop: 02/11/21 20:59 Last Admin: 01/17/21 09:18 Dose: Not Given Documented by: Rivaroxaban (Rivaroxaban 20 Mg Tab) 20 mg PO [facility] Stop: 02/11/21 20:59 Last Admin: 01/16/21 20:08 Dose: 20 mg Documented by: Trazodone HCl (Trazodone Hcl 50 Mg Tab) 50 mg PO [facility] Stop: 02/11/21 20:59 Last Admin: 01/16/21 20:09 Dose: 50 mg Documented by: Umeclidinium [place] (Umeclidinium [place] 62.5mcg/Blister 7 Puffs/Inhaler) 1 puffs INH QAM [facility] Stop: 02/12/21 08:59 Last Admin: 01/17/21 07:21 Dose: 1 puffs Documented by: Resident Activity Tracking Resident Involvement: Resident Care Provided Care Provided: Adult [facility] Medicine
--- NOTE | 2021-01-17 14:14 | Pulmonology Progress Note ---
Date of Service January 17, 2021 Assessment & Plan (1) Acute hypoxemic respiratory failure: Plan: Impression: 65-year-old female with advanced obstructive lung disease and ongoing tobacco abuse admitted with COPD exacerbation. She is showing slow and steady improvement. Not ready to transition from parenteral steroids just yet. Recommendations: 1. Advanced COPD: Continue Solu-Medrol 125 mg every 8. Continue Perforomist, budesonide, and Incruse. Continue azithromycin 250 mg daily. Would not change her regimen until she demonstrates a little bit more clinical stability. She is making some progress albeit slowly. Could consider theophylline however she is already slightly tachycardic so this may not be an ideal choice. We will add Singulair to see if it offers her any clinical benefit. 2. Hypoxemic hypercarbic respiratory failure: Continue to follow closely. Continue supplemental oxygen titrated to keep saturations at or above 88% 3. Smoking cessation: Smoking cessation again addressed with the patient. She states she is now motivated to consider smoking cessation and plans on quitting leaving the hospital. Will need to assess for nicotine replacement as well as adjuvants. Consider referral to smoking cessation course at discharge. 4. Prior history of sarcoid: This does not appear to be clinically active and is not likely compromising her current respiratory issues. They appear to be more related to her underlying COPD and emphysema. We will continue to follow with you. She will follow-up with GRU[facility] Albright in the pulmonary clinic at discharge (2) Acute respiratory distress: (3) COPD exacerbation: Admission and Anticipated Discharge Date Admission Date: January 12, 2021 Subjective Patient sitting up in chair. Her respiratory status is continuing to slowly improve. Her oxygen is being weaned. She continues to experience wheezing with any significant physical exertion. She is doing fine without her cigarettes and demonstrating no signs of nicotine withdrawal. She is not coughing large amounts of phlegm. The phlegm she is producing is thick and whitish. No fevers chills or night sweats. She is tolerating a diet. She is ambulating small distances although she continues to experience wheezing with physical exertion. Review of Systems Review of Systems: Unchanged from prior Physical Exam Constitutional: + obese; no acute distress Neck: trachea midline, no thyromegaly Respiratory: + uses accessory muscles and able to speak in complete sentences; no respiratory distress and no labored breathing Auscultation: + wheezes Cardiovascular: RRR, no murmur, no edema Gastrointestinal (Abdomen): normal bowel sounds, soft, nontender, no hepatosplenomegaly Musculoskeletal: Extremities: extremities normal to inspection Skin: no rashes, warm and dry Lymphatic: no cervical lymphadenopathy Results & Data Results & Data ([facility]) Vital Signs (Past 12 Hours) Vital Signs Temp Pulse Pulse Resp BP BP Pulse Ox 01/17/21 12:51 92 01/17/21 11:51 37.0 C 95 H 18 144/84 H 93 01/17/21 11:03 76 18 96 01/17/21 08:00 81 01/17/21 07:44 36.9 C 90 22 135/89 93 01/17/21 07:18 89 18 97 01/17/21 04:27 36.4 C L 83 14 118/78 94 Laboratory Results 01/16/21 05:53 01/17/21 08:46 Diagnostic Findings No new imaging PG Care Time/CCT Total # of Minutes Spent Total Time Spent with Patient: Total time spent is greater than 50% in coordination of care (as documented) at patient's floor/unit and/or counseling patient: Coding Level of Care Code 28380 Subseq Hosp Care Lvl 2 Diagnoses Acute hypoxemic respiratory failure J96.01 Acute respiratory distress R06.03 COPD exacerbation J44.1
[2021-01-17] MEDS: RIVAROXABAN 20 MG TAB PO SCH (20:15)
[2021-01-17] MEDS: traZODone HCL 50 MG TAB PO SCH (20:15)
[2021-01-17] MEDS: LORazepam 1 MG TAB PO PRN (20:16)
[2021-01-17] MEDS: MONTELUKAST SODIUM 10 MG TABLET PO SCH (21:06)
[2021-01-18] MEDS: PANTOprazole 40 MG TAB PO SCH (04:46)
[2021-01-18] MEDS: methylPREDNISolone 125 MG in SYRINGE 0 ML IV SCH ×2 (04:47→11:22)
[2021-01-18 07:02] LABS: Hematocrit (blood only) 43.3 % (37-47); Hemoglobin 14.6 g/dL (12.0-16.0); Immature Granulocytes # (auto) 0.15 K/uL (0.00-0.02); Immature Granulocytes % (auto) 2.2 %; Lymphocytes # (auto) 0.73 K/uL (1.2-3.4); Lymphocytes % (auto) 10.7 %; Mean Corpuscular Hemoglobin 31.1 pg (25-34); Mean Corpuscular Hgb Conc 33.7 g/dL (32-36); Mean Corpuscular Volume 92.3 fL (80-100); Mean Platelet Volume 10.1 fL (7.4-10.4); Monocytes # (auto) 0.31 K/uL (0.11-0.59); Monocytes % (auto) 4.5 %; Neutrophils # (auto) 5.63 K/uL (1.4-6.5); Neutrophils % (auto) 82.6 %; Platelet Count 204 K/uL (130-400); RDW Coefficient of Variation 13.5 % (11.5-14.5); RDW Standard Deviation 45.9 fL (36.4-46.3); Red Blood Count 4.69 M/uL (4.2-5.4); White Blood Count 6.82 K/uL (4.8-10.8)
[2021-01-18] MEDS: ALBUT/IPRATROP 3MG/0.5MG NEB 3 ML VIAL NEB SCH ×4 (07:24→19:32)
[2021-01-18] MEDS: BUDESONIDE 0.5 MG/2 ML VIAL (PULMICORT) NEB SCH ×2 (07:24→19:32)
[2021-01-18] MEDS: FORMOTEROL 20 MCG/2 ML VIAL NEB SCH ×2 (07:24→19:31)
[2021-01-18 07:34] LABS: BUN Creatinine Ratio 40.2 (10-20); Creatinine Clr Calc Pharmacy 68.2 ml/min; Est GFR (African American) 90.4 ml/min; Potassium 4.4 mmol/L (3.5-5.1)
[2021-01-18] MEDS: NICOTINE 14 MG/24 HR PATCH TD SCH (08:36)
[2021-01-18] MEDS: busPIRone 5 MG TAB PO SCH ×2 (08:37→20:38)
[2021-01-18] MEDS: POLYETHYLENE (MIRALAX) 17 GM PACK PO SCH ×2 (08:37→20:40)
[2021-01-18] MEDS: guaiFENesin 600 MG TABCR PO SCH ×2 (08:37→20:39)
[2021-01-18] MEDS: AZITHROMYCIN 250 MG TAB PO SCH (08:37)
[2021-01-18] MEDS: UMECLIDINIUM BROMIDE 62.5MCG/BLISTER 7 PUFFS/INHALER INH SCH (08:38)
--- NOTE | 2021-01-18 09:12 | Hospitalist Progress Note ---
Date of Service January 18, 2021 Assessment & Plan (1) Pneumonia: Plan: 65 Yo F with past medical history of COPD, Active smoker (15/day), Pulmonary embolism (08/23), Sarcoidosis with VATS (granulomatous pneumonitis), chest wall pain, osteopetrosis, chronic sinusitis, DJD. 1) Acute hypoxemic respiratory failure and sepsis secondary to pneumonia Patient with a past medical history of COPD with frequent exacerbations clinical history of worsening shortness of breath, fevers, chills, aches and pains, coughing presents for evaluation of worsening shortness of breath. Patient uses 2L O2 at home, requiring 4 L on presentation to the ED to maintain saturations of 90%, patient has a fever on presentation, elevated respiratory rate, tachycardic, and initially hypotensive. She received 1 L of LR as a bolus and pressures improved. Patient reports her was sick recently, question etiology of infection either bacterial versus viral, given myalgias will obtain labs for influenza. Initially treated her septic presentation with broad- spectrum antibiotics and supportive care as indicated. Blood cultures 01/12/21 negative -continue treatment with azithromycin, 2L O2 NC -Guaifenesin every 6 hours for coughing -Continue home inhalers -Pulmonology consulted: Solu-Medrol 125 mg discontinued transitioned to Prednisone 40mg PO, continue Perforomist, budesonide, and Incruse. Recommended pulm rehab -follow up with outpt pulm 2) COPD Contributing to current presentation continue home meds. -See above 3) Sarcoidosis No history of, follows with pulmonology, likely contributing to current presentation -Pulmonology feels her history of sarcoidosis is not actively contributing to her current presentation 4) Pulmonary embolism History of (08/23) on Xarelto 20 mg nightly -Continue Xarelto 5) Anxiety and depression -Continue lorazepam 1 mg daily as needed -Continue trazodone 50 mg at bedtime -Continue buspirone 10 mg bid 6) Tobacco use Pulm discussed smoking cessation with patient, patient has expressed motivation to quit. -Provided nicotine patch 7) Chronic low back and rib pain -Continue cyclobenzaprine 10 mg 3 times daily as needed FENa: Heart healthy diet Code Status: Full code DVT PPX: On Xarelto PT/OT: ordered Case Management: Consulted Dispo: Telemetry Admission and Anticipated Discharge Date Admission Date: January 12, 2021 Supervising Physician Co-Signing Physician Notes I personally examined the patient and verified all patel points of history and exam, discussed case, and agree with decision making with Dr Jiang Starting to feel better. Starting to breathe easier. Moving around some. Notes that she has oxygen as needed at home. Vitals noted, in general she is awake and alert pleasant no distress. HEENT normocephalic atraumatic mucous membranes moist. Lungs show reasonable air entry with bilateral expiratory harsh sounding wheezing. No accessory muscle use no tachypnea good effort. Acute on chronic hypoxic respiratory failure related to COPD exacerbationstarting to improve. Continue inhalers, slowly wean steroids, stable for medical, possibly home tomorrow depending on further improvement. Discussed with patient she might need oxygen 24/ for now, will check to step closer to discharge. Otherwise as above Subjective 65yo Female admitted to hospital for worsening SOB and PNA, PMH COPD tobacco abuse PE sarcoidosis. At home she states she is usually on 2L oxygen, gets SOB walking unassisted across room to bathroom, PCP is Nichole Antunez. Patient was seen at bedtime comfortable, slept ate well, voided normally. She is currently on 2L O2, says her breathing feels similar to yesterday. She is currently being followed by PT. Review of Systems Constitutional: no fever and no chills Ear, Nose, Mouth, Throat: no dizziness Respiratory: + dyspnea on exertion and + wheezing; no cough and no dyspnea Cardiovascular: no chest pain and no palpitations Gastrointestinal: no nausea, no vomiting, no constipation and no diarrhea/loose stools Genitourinary: no urinary incontinence Musculoskeletal: no back pain and no neck pain Integumentary: no rash Neurologic: no tingling, no numbness and no headache(s) Psychiatric: no behavioral changes Physical Exam Constitutional: + obese; no acute distress Neck: trachea midline, no thyromegaly Respiratory: able to speak in complete sentences; no respiratory distress and no labored breathing Auscultation: + wheezes; no rales and no rhonchi Cardiovascular: RRR, no murmur, no edema Heart Sounds: normal S1 and normal S2; no gallop, no murmur and no cardiac rub Gastrointestinal (Abdomen): normal bowel sounds, soft, nontender, no hepatosplenomegaly Inspection/Auscultation: abdomen not distended Musculoskeletal: Extremities: extremities normal to inspection Skin: no rashes, warm and dry Lymphatic: no cervical lymphadenopathy Results & Data Results & Data ([facility]) Vital Signs (Past 12 Hours) Vital Signs Temp Pulse Pulse Resp BP Pulse Ox 01/18/21 08:13 37.3 C 87 20 128/81 94 01/18/21 07:24 82 16 95 01/18/21 03:20 36.6 C 86 20 112/72 93 01/18/21 00:15 85 01/17/21 22:25 36.5 C 85 20 106/63 95 Laboratory Results 01/18/21 01/18/21 Range/Units 06:18 06:18 WBC 6.82 (4.8-10.8) K/uL RBC 4.69 (4.2-5.4) M/uL Hgb 14.6 (12.0-16.0) g/dL Hct 43.3 (37-47) % MCV 92.3 (80-100) fL MCH 31.1 (25-34) pg MCHC 33.7 (32-36) g/dL RDW Std Deviation 45.9 (36.4-46.3) fL RDW Coeff of Perry 13.5 (11.5-14.5) % Plt Count 204 (130-400) K/uL MPV 10.1 (7.4-10.4) fL Immature Gran % (Auto) 2.2 % Neut % (Auto) 82.6 % Lymph % (Auto) 10.7 % Cannon % (Auto) 4.5 % Eos % (Auto) 0.0 % Baso % (Auto) 0.0 % Neut # (Auto) 5.63 (1.4-6.5) K/uL Lymph # (Auto) 0.73 L (1.2-3.4) K/uL Cannon # (Auto) 0.31 (0.11-0.59) K/uL Eos # (Auto) 0.00 (0-0.5) K/uL Baso # (Auto) 0.00 (0-0.2) K/uL Immature Gran # (Auto) 0.15 H (0.00-0.02) K/uL Sodium 140 (136-145) mmol/L Potassium 4.4 (3.5-5.1) mmol/L Chloride 104 (98-107) mmol/L Carbon Dioxide 37 H (21-32) mmol/L Anion Gap -1.0 L (3-11) BUN 32 H (7-18) mg/dl Creatinine 0.79 (0.6-1.2) mg/dl Est Cr Clr Drug Dosing 68.2 ml/min Est GFR ( Amer) 90.4 ml/min Est GFR (Non-Af Amer) 78.0 ml/min BUN/Creatinine Ratio 40.2 H (10-20) Glucose 140 H (70-99) mg/dl Calcium 9.0 (8.5-10.1) mg/dl Medications Administered Current Inpatient Medications Acetaminophen (Acetaminophen 500 Mg Tab) 1,000 mg PO Q8 PRN PRN Reason: Pain or Fever Stop: 02/11/21 10:33 Last Admin: 01/13/21 05:47 Dose: 1,000 mg Documented by: Albuterol (Albuterol Hfa 8 Gm Inhaler) 2 puffs INH QID PRN PRN Reason: Shortness Of Breath Or Wheezing Stop: 02/11/21 15:21 Last Admin: 01/15/21 09:25 Dose: 2 puffs Documented by: Albuterol (Albut/Ipratrop 3mg/0.5mg Neb 3 Ml Vial) 3 ml NEB QIDR [facility] Stop: 02/12/21 08:59 Last Admin: 01/18/21 14:53 Dose: 3 ml Documented by: Azithromycin (Azithromycin 250 Mg Tab) 250 mg PO QAM [facility] Stop: 01/20/21 08:59 Last Admin: 01/18/21 08:37 Dose: 250 mg Documented by: Budesonide (Budesonide 0.5 Mg/2 Ml Vial (Pulmicort)) 0.5 mg NEB BIDR [facility] Stop: 02/12/21 18:59 Last Admin: 01/18/21 07:24 Dose: 0.5 mg Documented by: Buspirone HCl (Buspirone 5 Mg Tab) 10 mg PO BID [facility] Stop: 02/11/21 20:59 Last Admin: 01/18/21 08:37 Dose: 10 mg Documented by: Cyclobenzaprine HCl (Cyclobenzaprine Hcl 10 Mg Tab) 10 mg PO TID PRN PRN Reason: Muscle Spasm Stop: 02/11/21 15:40 Diclofenac Sodium (Diclofenac Sod 1% Gel 100 Gm Tube) 4 gm EXT DAILY PRN PRN Reason: Pain Stop: 02/11/21 15:21 Formoterol Fumarate (Formoterol 20 Mcg/2 Ml Vial) 20 mcg NEB BIDR [facility] Stop: 02/13/21 08:59 Last Admin: 01/18/21 07:24 Dose: 20 mcg Documented by: Guaifenesin (Guaifenesin 600 Mg Tabcr) 1,200 mg PO Q12 [facility] Stop: 02/13/21 08:59 Last Admin: 01/18/21 08:37 Dose: 1,200 mg Documented by: Lorazepam (Lorazepam 1 Mg Tab) 1 mg PO DAILY PRN PRN Reason: Anxiety Stop: 02/11/21 15:40 Last Admin: 01/17/21 20:16 Dose: 1 mg Documented by: Miscellaneous (Remove Nicoderm Patch) 1 ea N/A DAILY@0859 [facility] Stop: 02/12/21 08:58 Last Admin: 01/18/21 08:36 Dose: 1 ea Documented by: Montelukast Sodium (Montelukast Sodium 10 Mg Tablet) 10 mg PO HS [facility] Stop: 02/16/21 20:59 Last Admin: 01/17/21 21:06 Dose: 10 mg Documented by: Nicotine (Nicotine 14 Mg/24 Hr Patch) 14 mg TD QAM [facility] Stop: 02/12/21 08:59 Last Admin: 01/18/21 08:36 Dose: 14 mg Documented by: Ondansetron HCl (Ondansetron Inj 2 Mg/Ml 2 Ml Vial) 4 mg IV Q6H PRN PRN Reason: Nausea Stop: 02/11/21 10:33 Pantoprazole Sodium (Pantoprazole 40 Mg Tab) 40 mg PO DAILYBB [facility] Stop: 02/12/21 06:29 Last Admin: 01/18/21 04:46 Dose: 40 mg Documented by: Polyethylene Glycol (Polyethylene (Miralax) 17 Gm Pack) 17 gm PO BID [facility] Stop: 02/11/21 20:59 Last Admin: 01/18/21 08:37 Dose: Not Given Documented by: Prednisone (Prednisone 20 Mg Tab) 40 mg PO DAILY [facility] Stop: 02/18/21 08:59 Rivaroxaban (Rivaroxaban 20 Mg Tab) 20 mg PO HS [facility] Stop: 02/11/21 20:59 Last Admin: 01/17/21 20:15 Dose: 20 mg Documented by: Trazodone HCl (Trazodone Hcl 50 Mg Tab) 50 mg PO [facility] Stop: 02/11/21 20:59 Last Admin: 01/17/21 20:15 Dose: 50 mg Documented by: Umeclidinium Hobbs (Umeclidinium Hobbs 62.5mcg/Blister 7 Puffs/Inhaler) [facility] Stop: 02/12/21 08:59 Last Admin: 01/18/21 08:38 Dose: 1 puffs Documented by: Resident Activity Tracking Resident Involvement: Resident Care Provided Care Provided: Adult Hospital Medicine
--- NOTE | 2021-01-18 13:54 | Pulmonology Progress Note ---
Date of Service January 18, 2021 Assessment & Plan (1) Acute hypoxemic respiratory failure: Plan: Impression: 65-year-old female with advanced obstructive lung disease and ongoing tobacco abuse admitted with COPD exacerbation. Recommendations: 1. Advanced COPD: Transition to prednisone 40 mg daily starting tomorrow. Continue Perforomist, budesonide, and Incruse. Continue azithromycin 250 mg daily for 5 days. Hair added this admission. May benefit from pulmonary rehab as an outpatient. 2. Hypoxemic hypercarbic respiratory failure: Continue to follow closely. Continue supplemental oxygen titrated to keep saturations at or above 88% 3. Smoking cessation: Smoking cessation again addressed with the patient. She states she is now motivated to consider smoking cessation and plans on quitting leaving the hospital. Will need to assess for nicotine replacement as well as adjuvants. Consider referral to smoking cessation course at discharge. 4. Prior history of sarcoid: This does not appear to be clinically active and is not likely compromising her current respiratory issues. They appear to be more related to her underlying COPD and emphysema. We will continue to follow with you. She will follow-up with [facility] Albright in the pulmonary clinic at discharge. (2) Acute respiratory distress: (3) COPD exacerbation: Admission and Anticipated Discharge Date Admission Date: January 12, 2021 Subjective Patient seen and examined this morning. She is feeling less short of breath than she did yesterday. She does not feel completely back to her baseline. She notes that she normally wears oxygen at home when she feels that she needs it. She has a pulse oximeter at home that she uses and occasionally her oxygen saturations are in the high 90s. She denies any chest pain currently. She notes that over the last several weeks she has been more increasingly short of breath. She does smoke cigarettes approximately 1 pack/day. She has smoked for the last 30 to 40 years. She denies any fevers, chills or night sweats. No nausea or vomiting. Otherwise, negative review of systems. Physical Exam Constitutional: + obese; no acute distress Neck: trachea midline, no thyromegaly Respiratory: able to speak in complete sentences and + prolonged expiratory phase; no respiratory distress and no labored breathing Auscultation: + wheezes Cardiovascular: RRR, no murmur, no edema Gastrointestinal (Abdomen): normal bowel sounds, soft, nontender, no hepatosplenomegaly Musculoskeletal: Extremities: extremities normal to inspection Skin: no rashes, warm and dry Lymphatic: no cervical lymphadenopathy Results & Data Results & Data ([facility]) Vital Signs (Past 12 Hours) Vital Signs Temp Pulse Resp BP BP Pulse Ox 01/18/21 11:16 83 18 96 01/18/21 11:02 97.7 F 96 H 20 130/78 92 01/18/21 08:13 99.1 F 87 20 128/81 94 01/18/21 07:24 82 16 95 01/18/21 03:20 97.9 F 86 20 112/72 93 Vital signs, labs and imaging personally reviewed. PG Care Time/CCT Total # of Minutes Spent Total Time Spent with Patient: Total time spent is greater than 50% in coordination of care (as documented) at patient's floor/unit and/or counseling patient: Coding Level of Care Code 37487 Subseq Hosp Care Lvl 2 Diagnoses Acute hypoxemic respiratory failure J96.01 Acute respiratory distress R06.03 COPD exacerbation J44.1
--- NOTE | 2021-01-18 17:44 | Billing Data ---
Date of Service January 18, 2021 Coding Level of Care Code 56982 Subseq Hosp Care Lvl 2
[2021-01-18] MEDS: MONTELUKAST SODIUM 10 MG TABLET PO SCH (20:39)
[2021-01-18] MEDS: RIVAROXABAN 20 MG TAB PO SCH (20:40)
[2021-01-18] MEDS: traZODone HCL 50 MG TAB PO SCH (20:40)
[2021-01-18] MEDS: LORazepam 1 MG TAB PO PRN (20:42)
[2021-01-19] MEDS: PANTOprazole 40 MG TAB PO SCH (06:04)
[2021-01-19] MEDS: ALBUT/IPRATROP 3MG/0.5MG NEB 3 ML VIAL NEB SCH ×3 (07:19→14:35)
[2021-01-19] MEDS: BUDESONIDE 0.5 MG/2 ML VIAL (PULMICORT) NEB SCH (07:22)
[2021-01-19] MEDS: FORMOTEROL 20 MCG/2 ML VIAL NEB SCH (07:22)
[2021-01-19] MEDS: POLYETHYLENE (MIRALAX) 17 GM PACK PO SCH (07:37)
[2021-01-19] MEDS: ALBUTEROL HFA 8 GM INHALER INH PRN (07:39)
[2021-01-19] MEDS: NICOTINE 14 MG/24 HR PATCH TD SCH (07:43)
[2021-01-19] MEDS: busPIRone 5 MG TAB PO SCH (07:45)
[2021-01-19] MEDS: guaiFENesin 600 MG TABCR PO SCH (07:46)
[2021-01-19] MEDS: AZITHROMYCIN 250 MG TAB PO SCH (07:46)
[2021-01-19] MEDS ORDERED: predniSONE 20 MG TAB PO SCH (09:00)
[2021-01-19] MEDS: UMECLIDINIUM BROMIDE 62.5MCG/BLISTER 7 PUFFS/INHALER INH SCH (09:00)
--- NOTE | 2021-01-19 11:22 | Hospitalist Progress Note ---
Date of Service January 19, 2021 Assessment & Plan Admission and Anticipated Discharge Date Admission Date: January 12, 2021 Results & Data Results & Data ([facility]) Vital Signs (Past 12 Hours) Vital Signs Temp Pulse Pulse Pulse Pulse Pulse Pulse 01/19/21 11:05 91 H 01/19/21 09:16 77 105 H 78 93 H 01/19/21 07:57 36.4 C L 65 01/19/21 07:22 83 01/18/21 23:53 36.6 C 80 Resp Resp Resp Resp Resp BP Pulse Ox 01/19/21 11:05 18 91 01/19/21 09:16 24 24 20 20 01/19/21 07:57 16 127/85 97 01/19/21 07:22 18 95 01/18/21 23:53 16 117/72 96 Pulse Ox Pulse Ox Pulse Ox Pulse Ox 01/19/21 11:05 01/19/21 09:16 92 87 L 93 93 01/19/21 07:57 01/19/21 07:22 01/18/21 23:53
--- NOTE | 2021-01-19 14:27 | Pulmonology Progress Note ---
Date of Service January 19, 2021 Assessment & Plan (1) Acute hypoxemic respiratory failure: Plan: Impression: 65-year-old female with advanced obstructive lung disease and ongoing tobacco abuse admitted with COPD exacerbation. Recommendations: 1. Advanced COPD: Continue with prednisone taper over 10 days. Transition to home inhalers upon discharge. Encouraged to use nebulizer treatment 4 times a day initial period after discharge. Will need follow-up with pulmonary clinic. Continue azithromycin 250 mg daily for 5 days. Hair added this admission. May benefit from pulmonary rehab as an outpatient. 2. Hypoxemic and hypercarbic respiratory failure: Continue supplemental oxygen titrated to keep saturations at or above 88% 3. Smoking cessation: Smoking cessation again addressed with the patient. She states she is now motivated to consider smoking cessation and plans on quitting leaving the hospital. Will need to assess for nicotine replacement as well as adjuvants. Consider referral to smoking cessation course at discharge. 4. Prior history of sarcoid: This does not appear to be clinically active and is not likely compromising her current respiratory issues. (2) Acute respiratory distress: (3) COPD exacerbation: Admission and Anticipated Discharge Date Admission Date: January 12, 2021 Subjective Patient seen and examined this afternoon. She is accompanied by her . He is eager to be discharged home. She still has shortness of breath and a mild wheeze. She notes that she ambulated around the hallways and only required oxygen in the end of the ambulation. She denies any chest pain, fevers or chills. Physical Exam Constitutional: + obese; no acute distress Neck: trachea midline, no thyromegaly Respiratory: able to speak in complete sentences and + prolonged expiratory phase; no respiratory distress and no labored breathing Auscultation: + wheezes Cardiovascular: RRR, no murmur, no edema Gastrointestinal (Abdomen): normal bowel sounds, soft, nontender, no hepatosplenomegaly Musculoskeletal: Extremities: extremities normal to inspection Skin: no rashes, warm and dry Lymphatic: no cervical lymphadenopathy Results & Data Results & Data ([facility]) Vital Signs (Past 12 Hours) Vital Signs Temp Pulse Pulse Pulse Pulse Pulse Pulse 01/19/21 13:42 97.5 F L 91 H 65 01/19/21 11:05 91 H 01/19/21 09:16 77 105 H 78 93 H 01/19/21 07:57 97.5 F L 65 01/19/21 07:22 83 Resp Resp Resp Resp Resp BP BP 01/19/21 13:42 18 130/81 127/85 01/19/21 11:05 18 01/19/21 09:16 24 24 20 20 01/19/21 07:57 16 127/85 01/19/21 07:22 18 Pulse Ox Pulse Ox Pulse Ox Pulse Ox Pulse Ox 01/19/21 13:42 91 01/19/21 11:05 91 01/19/21 09:16 92 87 L 93 93 01/19/21 07:57 97 01/19/21 07:22 95 vital signs, laboratory data and imaging personally reviewed. PG Care Time/CCT Total # of Minutes Spent Total Time Spent with Patient: Total time spent is greater than 50% in coordination of care (as documented) at patient's floor/unit and/or counseling patient: Coding Level of Care Code 94232 Subseq Hosp Care Lvl 2 Diagnoses Acute hypoxemic respiratory failure J96.01 Acute respiratory distress R06.03 COPD exacerbation J44.1
--- NOTE | 2021-01-19 18:03 | Discharge Summary ---
Date of Service January 19, 2021 Admission HPI Per Admitting Provider 65 YOF with past medical history of COPD, Active smoker (15/day), Pulmonary embolism (08/23), Sarcoidosis with VATS (granulomatous pneumonitis), chest wall pain, osteopetrosis, chronic sinusitis, DJD. Was in her usual state of health prior to 3 days ago when she experienced symptoms of worsening shortness of breath. Patient has baseline COPD on home oxygen prn she was recently on 10/12 for COPD exacerbation as well. She states she has a history of frequent COPD exacerbations, requiring frequent hospitalizations. She reports her has been sick recently, his illness did not require antibiotics, he took Mucinex and treated himself with supportive care. She believes she has the same illness endorsing shortness of breath, coughing, aches and pains, fever, headache, rhinorrhea, chills, denying nausea and vomiting. She attempted to treat herself at home with supportive therapy however this morning her symptoms became unbearable stating her presentation to the emergency department. On presentation she was borderline hypotensive 104/64, tachycardic 106, tachypneic at 30, temperature elevated to 37.7, requiring 4 L per nasal cannula to maintain saturations at 95%. Routine labs were obtained demonstrating a white count of 7.7 otherwise unremarkable Chem-7 unremarkable, lactate 1.1 liver function studies within normal limits. X-ray demonstrating chronic hilar enlargement. There are chronic sarcoidosis, and new left upper lung opacities which may reflect progressive fibrosis versus developing pneumonia. She was started on cefepime and vancomycin, and given a liter of LR. Hospitalist matias yousif was consulted for admission On examination of the patient she was sitting up in bed receiving her nebulizer treatment. Patient related history as described above. She specifically denied any chest pressure, chest pain, calf pain. She states she has had some improvement status post nebulizer. Primary Care Provider: CLAY Davila Admission Exam Per Admitting Provider General: Sitting on her bed receiving a nebulizer treatment HEENT: Normocephalic atraumatic Neck: Normal visual inspection Cardiac: Tachycardic with regular rhythm I did not appreciate any significant murmurs rubs or gallops, normal S1, normal S2, negative pedal edema, negative calf tenderness Respiratory: Diffuse wheezing throughout all lung khan, did not appreciate any crackles, rales, intermittent rhonchi. Increased work of breathing, respiratory distress present Neuro: Alert and oriented x4 Psych: Calm and cooperative with the interview Principal Diagnosis COPD Exacerbation Discharge Exam Constitutional + obese; no acute distress Neck trachea midline, no thyromegaly Respiratory able to speak in complete sentences; no respiratory distress and no labored breathing Auscultation: + wheezes; no rales and no rhonchi Cardiovascular RRR, no murmur, no edema Heart Sounds: normal S1 and normal S2; no gallop, no murmur and no cardiac rub Gastrointestinal (Abdomen) normal bowel sounds, soft, nontender, no hepatosplenomegaly Inspection/Auscultation: abdomen not distended Musculoskeletal Extremities: extremities normal to inspection Skin no rashes, warm and dry Lymphatic no cervical lymphadenopathy Discharge Data Allergies Allergy/AdvReac Type Severity Reaction Status Date / Time No Known Allergies Allergy Verified 01/12/21 09:27 Consultations 01/13/21 18:28 Consult Pulmonology Routine Ordered Studies 01/13/21 20:27 CT angio chest PE protocol Stat Hospital Course (1) COPD exacerbation: 65 Yo F with past medical history of COPD, Active smoker (15/day), Pulmonary embolism (08/23), Sarcoidosis with VATS (granulomatous pneumonitis), chest wall pain, osteopetrosis, chronic sinusitis, DJD. 1) Acute hypoxemic respiratory failure and sepsis secondary to pneumonia Patient with a past medical history of COPD with frequent exacerbations clinical history of worsening shortness of breath, fevers, chills, aches and pains, coughing presented for evaluation of worsening shortness of breath. Patient used 2L O2 at home, required 4 L on presentation to the ED to maintain saturations of 90%. On presentation patient had fever, elevated respiratory rate, tachycardic, hypotensive. She received 1L LR bolus and pressures improved. Patient reported her was sick recently, question etiology of infection either bacterial versus viral. Initially treated her septic presentation with broad-spectrum antibiotics and supportive care as indicated. Blood cultures 01/12/21 negative, antibiotics switched to azythromycin. Pulmonology was consulted, placed the patient on 125 Solu-medrol and other medications. Patient was weened down to 2L O2 and Prednisone 40mg PO. Upon discharge patient is instructed to continue to ween down her steroids, [id number]. Please continue home medications and follow up with PCP and pulmonology. 2) COPD Contributed to admitting presentation. Please continue home medications and follow with PCP and pulmonology. 3) Sarcoidosis Pulmonology feels her history of sarcoidosis is not actively contributing to her current presentation. 4) Pulmonary embolism History of (08/23) on Xarelto 20 mg nightly, patient continued home medications. 5) Anxiety and depression Continued home medications. 6) Tobacco use Pulmonology discussed smoking cessation with patient, patient has expressed motivation to quit. They were provided nicotine patches in hospital. 7) Chronic low back and rib pain Continued home medications. (2) Pneumonia: (3) Pulmonary embolism: (4) Anxiety and depression: (5) Sarcoidosis: Total Time Total Time Spent Total Time Spent (In Minutes): <30 Discharge Plan Discharge Items Patient Disposition: Home - Home Health Services Reason For Visit: PNA Discharge Diagnosis: COPD Exacerbation Activity: Resume your previous activity Non-emergency contact: Primary Care Provider Call non-emergency contact if: you have any medication questions, your symptoms worsen and your temperature is above 101 Follow-up/Referrals: Nichole Antunez CRNP [Primary Care Provider] - 01/26/21 4:30 pm Diet: Regular Addtl Attending Provider Instructions: COPD exacerbation -COPD stands for chronic obstructive pulmonary disease - essentially smokers lung. when someone with COPD gets sick with just about anything as far as a respiratory illness, it can quickly turn into a situation like a "bad bronchitis" - which is what we label as a COPD exacerbation -fortunately you're starting to turn the corner nicely and it is safe to get you home; we'll finish out treatment as below: ---->steroids - you finally started to get better with fairly high doses of steroids, so we'll complete a fairly long taper of steroids with prednisone take 40mg daily x 3 days, then 30mg daily x 3 days, then 20mg daily x 3 days, then 10mg daily x 3 days then stop ---> the prescription will be a lot of 10mg tablets -- it's OK to take them all at once. I would recommend taking them fairly early in the day - typically steroids will carry side effects for being hungry and hyper - so we wouldn't want you taking them late in the day making it hard to sleep! ----> while we do a course of antibiotics to help clear the inflammation in situtaions like yours, you have actually already finished a full course so no further antibiotics will be needed. uniquely, the antibiotic that you were on stays in your system for about 5 days after the last dose, so you'll really still be on antibiotic coverage through about 01/24 -for the time being, it looks like you'll need oxygen at a setting of 2L when you're walking/doing housework, etc. as you improve, they can continue to recheck you in the office to see if you still need the oxygen or if you've improved to where you don't anymore -as we discussed, it wouldn't be surprising for it to take a solid month (or more) to really get back to normal after something like this. follow how you're doing, but really gauge your progress more [id number] than day-to-day. if you find that you're worsening or a week has gone by with no improvement, then it would be time to get seen, otherwise, just give it time because these kinds of illnesses take a long time to improve from COPD -as we discussed, it's really important to continue to take your inhalers on a regular basis, like you have been -for the next few weeks, it's not surprising if you find that you'll need your albuterol rescue inhaler a lot more often - it's OK to take it up to every four hours if you need. over time, you should hopefully start to see that you need it less often, and eventually get back to your normal use -it's absolutely critical htat you stop smoking -- with as sick as you were, and as tenuous as things appear with your lungs, they can't afford the additional damage of any further smoking. Pending Studies at Discharge: No Stand-Alone Forms: My [facility], Smoking Cessation Medications and DC Order Prescriptions: New prednisone 10 mg tablet 10 mg PO UD Qty: 30 RF: 0 Continued albuterol sulfate [Ventolin HFA] 90 mcg/actuation HFA aerosol inhaler 2 puff inhalation QID PRN (Reason: Shortness Of Breath Or Wheezing) Qty: 18 RF: 11 albuterol sulfate 2.5 mg /3 mL (0.083 %) solution for nebulization 2.5 mg INHALATION QID PRN (Reason: Shortness Of Breath Or Wheezing) Qty: 90 RF: 5 buspirone 10 mg tablet 10 mg PO BID Qty: 60 RF: 11 cyclobenzaprine 10 mg tablet 10 mg PO TID PRN (Reason: Muscle Spasm) Qty: 60 RF: 0 Anoro Ellipta 62.5-25 mcg/actuation blister with device 1 inh inhalation QAM Qty: 60 RF: 5 trazodone 50 mg tablet 50 mg PO HS Qty: 90 RF: 3 (DME) nebulizer accessories Kit See Rx Instructions .MEDSUPPLY Qty: 1 RF: 5 (DME) Oxygen Home Liters Per Minute See Rx Instructions .MEDSUPPLY Qty: 1 RF: 5 Flovent HFA 110 mcg/actuation HFA aerosol inhaler 2 puff inhalation BID Qty: 12 RF: 2 diclofenac sodium [Voltaren Arthritis Pain] 1 % gel 4 g TOPICAL DAILY PRN (Reason: Pain) RF: 0 pantoprazole 40 mg tablet,delayed release (DR/EC) 40 mg PO DAILYBB RF: 0 lorazepam [Ativan] 1 mg tablet 1 mg PO DAILY PRN (Reason: Anxiety) RF: 0 Xarelto 20 mg tablet 20 mg PO HS RF: 0 meloxicam 7.5 mg tablet 7.5 mg DAILY RF: 0 Discharge Orders: Discharge Order (Routine); Ordered 01/19/21 Ordered By: Lucas Rolle/Other Patient Handouts: Asthma and COPD Admission Data Admit Date/Time: 01/12/21 10:35 Attending Provider: Lucas Cerda Admit Provider: Kyle Kelley I. Primary Care Provider: Nichole Antunez Other Providers: Maikel Gibbs ; [place] ; [facility] ; Alan Cote ; Wes Albright ; Logan Regalado ; Luke Mooney ; Stanford Baxter ; Cyndi Guillaume Other Interventions: Discharge Summary Assessment (RN) Last Done: 01/19/21 13:42 Supervising Physician Co-Signing Physician Notes I personally examined the patient and verified all patel points of history and exam, discussed case, and agree with decision making with Dr Jiang. Feeling betterstill dyspnea on exertion, but feeling up to going home. Respiratory therapy walked patient2 L with exertion, none with rest. Discussed steroid taper, discussed that she has already been on a course of azithromycin, discussed inhaler use. Discussed expectations on improvement. Vitals noted, in general she is awake and alert pleasant no distress. HEENT normocephalic atraumatic mucous membranes moist. Lungs show better air entryshe is wheezing a little bit louder, but I suspect that is because she is moving more airno accessory muscle use good effort. Skin shows no rashes no pallor or icterus. Severe COPD/COPD exacerbationstable for home. Steroid taper, inhalers, smoke cessation, completed a course of Zithromax. Otherwise as above
--- NOTE | 2021-01-19 20:03 | Billing Data ---
Date of Service January 19, 2021 Coding Level of Care Code D/C DAY MANAGEMENT <30 MINS
--- NOTE | 2021-01-31 07:47 | Coding Query ---
SEPSIS To promote full compliance with coding requirements relating to patient care, physician participation is requested in all cases of environmental research scientist uncertainty. Please assist us with the question(s) below: In responding to this query, please exercise your independent professional judgement. The fact that a question is asked does not imply that any particular answer is desired or expected. We appreciate your clarification on this issue. Throughout the medical record, you have clearly documented a localized infection and your patient has clinical evidence of a generalized sepsis or severe sepsis. The term urosepsis is a nonspecific entity and is coded as an UTI. If the patient has sepsis, severe sepsis, from an urinary source or some other source, please clarify in your response below. The medical record reflects the following clinical findings: Progress notes document sepsis / Discharge Summary re: acute/chronic resp failure " admission treated septic picture with antibiotics" ... Seeking to clarify if Sepsis was treated during this admission. Thanks for your help! Satish Boucher [facility] ____ ( )Bacteremia (Nonspecific laboratory finding of bacteria in the blood) Specify Organism ( ) Present on Admission ( ) Not present on admission ( ) Unable to clinically determine ( ) Septicemia (Systemic disease associated with the presence of pathogenic microorganisms in the blood): Specify Organism ( ) Present on Admission ( ) Not present on admission ( ) Unable to clinically determine ( ) Sepsis Specify Organism Specify Associated Condition/Diagnosis ( ) Present on Admission ( ) Not present on admission ( ) Unable to clinically determine ( ) Severe Sepsis (Sepsis associated with acute organ dysfunction) Specify Organism Specify Associated Condition/Diagnosis ( ) Present on Admission ( ) Not present on admission ( ) Unable to clinically determine ( ) Septic Shock (Severe sepsis with acute circulatory failure, unexplained by other causes) ( ) Present on Admission ( ) Not present on admission ( ) Unable to clinically determine ( ) Other, patient has: MTDD
== END 2021-01-19 16:25 | disposition home health service (06) | DRG 871 ==
LOC: ED 07:27 → 2S 10:35 → SUATTDRO 10:35 → 2S 15:50 → 3N 01-18 17:41

== ENCOUNTER 2021-04-23 22:20 | Inpatient (IN) ==
[2021-04-23] MEDS ORDERED: ALBUTEROL 0.083% NEBU SOLN 3 ML VIAL ONE (22:31)
[2021-04-23] MEDS ORDERED: methylPREDNISolone 125 MG/2 ML VIAL ONE (22:31)
[2021-04-23] MEDS ORDERED: ALBUT/IPRATROP 3MG/0.5MG NEB 3 ML VIAL ONE (22:31)
[2021-04-23] MEDS ORDERED: ALBUT/IPRATROP 3MG/0.5MG NEB 3 ML VIAL INH STA (22:34)
[2021-04-23] MEDS ORDERED: LORazepam 2 MG/4 ML VIAL ONE (22:36)
[2021-04-23] MEDS ORDERED: methylPREDNISolone 125 MG/2 ML VIAL IV STA (22:36)
[2021-04-23] MEDS ORDERED: SODIUM CHLORIDE 0.9% 1000ML 1,000 ML IV SCH (22:37)
--- NOTE | 2021-04-23 22:39 | Emergency Department Note ---
Impression & Plan Acute exacerbation of chronic obstructive pulmonary disease Admission ED Provider Note HPI: The patient is a 64-year-old female with history of COPD with intermittent o xygen requirement at home at 2 L nasal cannula as needed, history of PE, on Xarelto, presents the emergency department with respiratory distress. Patient is noted to be tachycardic and with significant increased work of breathing on 4 L nasal cannula with oxygen saturations at 99%. Patient states her symptoms have been worsening over the past several days, denies any chest pain on arrival, she is a limited historian secondary to increased work of breathing and tachypnea. She is noted to be hypertensive on arrival and tachycardic, oxygen saturations are stable on supplemental oxygen but she does display increased work of breathing. ROS: -Pulmonary: Increased work of breathing/shortness of breath *10 point review systems was conducted and is otherwise negative unless stated above *Outpatient medications and allergy history reviewed PE: General: Alert, moderate distress secondary to increased work of breathing HEENT: Normocephalic, atraumatic, trachea midline Eyes: Extraocular eye movement is intact, no scleral erythema Pulmonary: Diminished bilaterally with expiratory wheezing, tachypnea Cardio: Tachycardic rate with regular rhythm GI: Abdomen is soft, nontender : No suprapubic tenderness MSK: No evidence of trauma or malformation of the extremities, no edema Skin: No evidence of rash Neuro: Alert, no focal deficits Psychiatric: Cooperative conveyor monitor: conveyor monitor ordered, patient is noted to be in sinus rhythm with an elevated rate EKG: Time: 0156 Rate: 105 Rhythm: Sinus tachycardia Intervals: Within normal limits ST changes: No ST elevation Medical Decision Making: Patient presented to the emergency department with a chief complaint of jaky rtness of breath, she does exhibit some respiratory distress on arrival, she is stable on increased oxygen requirement at 4 L nasal cannula. On my initial assessment she has diminished bilateral breath sounds, she is tachypneic, abdomen is soft and nontender, she is in moderate distress secondary to increased work of breathing. Shortly after arrival, patient was given DuoNeb breathing treatment and placed on BiPAP, this did improve her work of breathing, oxygen saturations remained at 100% while on BiPAP, CT angiography of the chest does not show any evidence of pulmonary embolism, there is stable appearance of left hilar mass and left upper lobe lobectomy, stable appearance of centrilobular bullous changes suggesting emphysema. No evidence of pneumonia. Troponin is negative x1, EKG does not show any acute ischemic changes. Patient's VBG does not show any evidence of significant hypercarbia, pH is slightly acidotic. Given the patient's vital signs on presentation blood cultures were drawn in the ED x2, lactic acid was also drawn and is slightly elevated at 2.4, unfortunately on reflex this did uptrend to greater than 3. She is symptomatically improved and her vital signs are improved, she was given additional IV fluid given that her lactic is trending upward, possible type B lactic acidosis given nebulizer treatments, there is no clear source of infection at this time. Although the patient seem to be improving on BiPAP she could not tolerate the mask despite anxiolytic medications, she request to be placed back on nasal cannula, on my reassessment she does display some mild increased work of breathing although it is improved from previous, she states she prefers to remain on nasal cannula at this time. She is maintaining oxygen saturations at 97%, remains mildly tachycardic. Case was discussed with the on-call hospitalist for [facility], patient will be admitted to a telemetry bed for further monitoring and breathing treatments as needed. S uspect this is secondary to COPD exacerbation given negative CT imaging. COVID- 19 testing is negative as well. Patient was in agreement to the above plan and she was admitted in improved condition. * Diagnosis: COPD exacerbation with hypoxia/increased oxygen requirement, lactic acidosis * Disposition: Admission * CRITICAL CARE TIME: 38min -Stabilization of COPD exacerbation with hypoxia requiring nebulizer treatments, increased oxygen/supplemental oxygen to maintain oxygen saturations greater than 90%, interpretation of diagnostic studies, time spent at the bedside, discussion with other healthcare providers Antoine Arguello DO Emergency Medicine Past Med/Surg History Medical History Anxiety and depression COPD (chronic obstructive pulmonary disease) History of pulmonary embolism On home O2 Osteoarthritis Osteoporosis Sarcoidosis Scoliosis Surgical History H/O hysterectomy for benign disease (10/02/12) History of hip replacement History of right shoulder replacement Hx of colonoscopy Hx of elbow surgery Family History Father Myocardial infarction Brother Anxiety COPD (chronic obstructive pulmonary disease) Daughter Anxiety Sister Breast cancer Other Diabetes Kidney disease No family history of adverse response to anesthesia Denies family history of Ovarian cancer Prostate cancer Colorectal cancer Social History Smoking Status: Current every day smoker Tobacco Type: Cigarettes Age Started Using Tobacco: 22; packs per day: 0.75; Cigarettes Per Day: 20; Second Hand Exposure: Yes; Hx Alcohol Use: No Hx Substance Use: No Preferred Language: Bangladeshi Communication Ability: Effective Visual Impairment: No Limitations Hearing Ability: Normal Patent Attorney Required: No Beliefs That Will Affect Care: None marital status: Current Living Situation: Spouse current occupational status: retired and disabled 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 How many Children do You have: 2 Other Information That Helps Us Care for You: No Feels Safe at Home: Yes Safety Concerns: Feels Safe At This Time Childhood Exposure to Second-Hand Smoke: No Dental Care, Regularly: No Physical Activity Frequency: Does not Exercise Seatbelt Use: always Sunscreen Use: No (is not out in the sun much ) Assistive Devices: Oxygen - Continuous Allergies Allergies Allergy/AdvReac Type Severity Reaction Status Date / Time No Known Allergies Allergy Verified 04/24/21 02:00 Home Meds Home Medications Medication Instructions Recorded Confirmed diclofenac sodium 1 % topical gel 4 g TOPICAL DAILY PRN 01/12/21 04/24/21 (Voltaren Arthritis Pain) meloxicam 7.5 mg tablet 7.5 mg PO QPM 01/12/21 04/24/21 buspirone 10 mg tablet 10 mg PO BID 04/24/21 04/24/21 Previous Rx's Medication Instructions Recorded trazodone 50 mg tablet 50 mg PO HS #90 tab 10/29/20 Oxygen Home #1 ea 01/07/21 nebulizer accessories #1 ea 01/07/21 lorazepam 1 mg tablet (Ativan) 1 mg PO DAILY PRN #30 tab 02/04/21 albuterol sulfate 90 mcg/actuation 2 puff INHALATION QID PRN #18 gm 03/02/21 aerosol inhaler (Ventolin HFA) fluticasone propionate 110 2 puff INHALATION BID #12 g 03/02/21 mcg/actuation HFA aerosol inhaler (Flovent HFA) rivaroxaban 20 mg tablet (Xarelto) 20 mg PO HS #30 tab 03/02/21 umeclidinium 62.5 mcg-vilanterol 1 inh INHALATION QAM #60 ea 03/03/21 25 mcg/actuation powdr for inhalation (Anoro Ellipta) albuterol sulfate 2.5 mg INHALATION QID PRN #90 ml 03/11/21 cyclobenzaprine 10 mg tablet 10 mg PO TID PRN #60 tab 04/01/21 Results & Data (ED) Vital Signs Vital Signs - 24 hr 04/24/21 01:09 04/24/21 02:01 04/24/21 02:11 Pulse Rate 114 H 102 H Pulse Rate [Apical] 103 H Respiratory Rate 36 H 32 H 31 H Respiratory Effort / Characteristics Spontaneous Labored Short of Breath Blood Pressure 103/70 104/60 Blood Pressure Mean 81 74 Pulse Oximetry 97 99 96 Oxygen Delivery Method Nasal Cannula Nasal Cannula Nasal Cannula Oxygen Flow Rate 5 5 5 04/24/21 02:30 04/24/21 03:00 Pulse Rate 107 H 115 H Pulse Rate [Apical] Respiratory Rate 28 H 32 H Respiratory Effort / Characteristics Blood Pressure 101/71 124/77 Blood Pressure Mean 81 92 Pulse Oximetry 98 95 Oxygen Delivery Method Oxygen Flow Rate Laboratory Data Result diagrams: 04/24/21 05:47 04/24/21 05:47 Lab Results 04/23/21 04/23/21 04/23/21 Range/Units 23:03 23:03 23:22 WBC 10.96 H (4.8-10.8) K/uL RBC 5.24 (4.2-5.4) M/uL Hgb 16.8 H (12.0-16.0) g/dL Hct 48.0 H (37-47) % MCV 91.6 (80-100) fL MCH 32.1 (25-34) pg MCHC 35.0 (32-36) g/dL RDW Std Deviation 45.2 (36.4-46.3) fL RDW Coeff of Perry 13.5 (11.5-14.5) % Plt Count 145 (130-400) K/uL MPV 10.4 (7.4-10.4) fL Immature Gran % (Auto) 0.3 % Neut % (Auto) 91.0 % Lymph % (Auto) 4.7 % Hartley % (Auto) 3.5 % Eos % (Auto) 0.3 % Baso % (Auto) 0.2 % Neut # (Auto) 9.98 H (1.4-6.5) K/uL Lymph # (Auto) 0.52 L (1.2-3.4) K/uL Hartley # (Auto) 0.38 (0.11-0.59) K/uL Eos # (Auto) 0.03 (0-0.5) K/uL Baso # (Auto) 0.02 (0-0.2) K/uL Immature Gran # (Auto) 0.03 H (0.00-0.02) K/uL VBG pH (7.36-7.41) VBG pCO2 (38-50) mmHg VBG pO2 mmHg VBG HCO3 mmol/L VBG O2 Saturation % VBG Base Excess mEq/L Barometric Pressure mm/Hg Sodium (136-145) mmol/L Potassium (3.5-5.1) mmol/L Chloride (98-107) mmol/L Carbon Dioxide (21-32) mmol/L Anion Gap (3-11) BUN (7-18) mg/dl Creatinine (0.6-1.2) mg/dl Est Cr Clr Drug Dosing ml/min Est GFR ( Amer) ml/min Est GFR (Non-Af Amer) ml/min BUN/Creatinine Ratio (10-20) Glucose (70-99) mg/dl Lactate (0.4-2.0) mmol/L Calcium (8.5-10.1) mg/dl Troponin I (0-0.045) ng/ml COVID-19 Eval Order Covid19 at [facility] SARS-CoV-2 (PCR) NEGATIVE (Negative) 04/23/21 04/23/21 04/23/21 Range/Units 23:22 23:22 23:23 WBC (4.8-10.8) K/uL RBC (4.2-5.4) M/uL Hgb (12.0-16.0) g/dL Hct (37-47) % MCV (80-100) fL MCH (25-34) pg MCHC (32-36) g/dL RDW Std Deviation (36.4-46.3) fL RDW Coeff of Perry (11.5-14.5) % Plt Count (130-400) K/uL MPV (7.4-10.4) fL Immature Gran % (Auto) % Neut % (Auto) % Lymph % (Auto) % Hartley % (Auto) % Eos % (Auto) % Baso % (Auto) % Neut # (Auto) (1.4-6.5) K/uL Lymph # (Auto) (1.2-3.4) K/uL Hartley # (Auto) (0.11-0.59) K/uL Eos # (Auto) (0-0.5) K/uL Baso # (Auto) (0-0.2) K/uL Immature Gran # (Auto) (0.00-0.02) K/uL VBG pH 7.34 L (7.36-7.41) VBG pCO2 43 (38-50) mmHg VBG pO2 85 mmHg VBG HCO3 22 mmol/L VBG O2 Saturation 89.0 % VBG Base Excess -3.4 mEq/L Barometric Pressure 731.5 mm/Hg Sodium 135 L (136-145) mmol/L Potassium 3.8 (3.5-5.1) mmol/L Chloride 102 (98-107) mmol/L Carbon Dioxide 25 (21-32) mmol/L Anion Gap 8.0 (3-11) BUN 15 (7-18) mg/dl Creatinine 0.90 (0.6-1.2) mg/dl Est Cr Clr Drug Dosing 58.5 ml/min Est GFR ( Amer) 77.2 ml/min Est GFR (Non-Af Amer) 66.6 ml/min BUN/Creatinine Ratio 16.1 (10-20) Glucose 154 H (70-99) mg/dl Lactate 2.4 H* (0.4-2.0) mmol/L Calcium 9.3 (8.5-10.1) mg/dl Troponin I < 0.015 (0-0.045) ng/ml COVID-19 Eval Order SARS-CoV-2 (PCR) (Negative) 04/24/21 Range/Units 01:21 WBC (4.8-10.8) K/uL RBC (4.2-5.4) M/uL Hgb (12.0-16.0) g/dL Hct (37-47) % MCV (80-100) fL MCH (25-34) pg MCHC (32-36) g/dL RDW Std Deviation (36.4-46.3) fL RDW Coeff of Perry (11.5-14.5) % Plt Count (130-400) K/uL MPV (7.4-10.4) fL Immature Gran % (Auto) % Neut % (Auto) % Lymph % (Auto) % Hartley % (Auto) % Eos % (Auto) % Baso % (Auto) % Neut # (Auto) (1.4-6.5) K/uL Lymph # (Auto) (1.2-3.4) K/uL Hartley # (Auto) (0.11-0.59) K/uL Eos # (Auto) (0-0.5) K/uL Baso # (Auto) (0-0.2) K/uL Immature Gran # (Auto) (0.00-0.02) K/uL VBG pH (7.36-7.41) VBG pCO2 (38-50) mmHg VBG pO2 mmHg VBG HCO3 mmol/L VBG O2 Saturation % VBG Base Excess mEq/L Barometric Pressure mm/Hg Sodium (136-145) mmol/L Potassium (3.5-5.1) mmol/L Chloride (98-107) mmol/L Carbon Dioxide (21-32) mmol/L Anion Gap (3-11) BUN (7-18) mg/dl Creatinine (0.6-1.2) mg/dl Est Cr Clr Drug Dosing ml/min Est GFR ( Amer) ml/min Est GFR (Non-Af Amer) ml/min BUN/Creatinine Ratio (10-20) Glucose (70-99) mg/dl Lactate 3.9 H* (0.4-2.0) mmol/L Calcium (8.5-10.1) mg/dl Troponin I (0-0.045) ng/ml COVID-19 Eval Order SARS-CoV-2 (PCR) (Negative) Administered Medications Albuterol (Albut/Ipratrop 3mg/0.5mg Neb 3 Ml Vial) 3 ml NEB QIDR HEATHER Stop: 05/24/21 06:59 Last Admin: 04/24/21 20:02 Dose: 3 ml Documented by: [id number] Admin: 04/24/21 15:18 Dose: 3 ml Documented by: [id number] Admin: 04/24/21 12:11 Dose: 3 ml Documented by: [id number] Admin: 04/24/21 07:12 Dose: 3 ml Documented by: [id number] Buspirone HCl (Buspirone 5 Mg Tab) 10 mg PO BID HEATHER Stop: 05/24/21 08:59 Last Admin: 04/24/21 22:12 Dose: 10 mg Documented by: [id number] Admin: 04/24/21 08:31 Dose: 10 mg Documented by: [id number] Cyclobenzaprine HCl (Cyclobenzaprine Hcl 10 Mg Tab) 10 mg PO TID PRN PRN Reason: Muscle Spasm Stop: 05/24/21 04:09 Last Admin: 04/24/21 22:18 Dose: 10 mg Documented by: [id number] Fluticasone Furoate (Fluticasone Furoate 200mcg 14 Puffs/Inhaler) 1 puffs INH DAILY HEATHER Stop: 05/24/21 08:59 Last Admin: 04/24/21 08:30 Dose: 1 puffs Documented by: [id number] Guaifenesin (Guaifenesin 600 Mg Tabcr) 600 mg PO Q12 HEATHER Stop: 05/24/21 08:59 Last Admin: 04/24/21 22:12 Dose: 600 mg Documented by: [id number] Admin: 04/24/21 08:31 Dose: 600 mg Documented by: [id number] Azithromycin 500 mg/ Dextrose 255 mls @ 125 mls/hr IV Q24H HEATHER Stop: 05/01/21 05:59 Last Infusion: 04/24/21 08:03 Dose: 0 mls/hr Documented by: [id number] Admin: 04/24/21 05:45 Dose: 125 mls/hr Documented by: [id number] Methylprednisolone 40 mg/ (Syringe) 0.64 mls @ 1.5 mls/min IV Q8H HEATHER Stop: 05/24/21 05:59 Last Admin: 04/24/21 22:12 Dose: 1.5 mls/min Documented by: [id number] Admin: 04/24/21 13:38 Dose: 1.5 mls/min Documented by: [id number] Admin: 04/24/21 05:45 Dose: 1.5 mls/min Documented by: [id number] Lorazepam (Lorazepam 1 Mg Tab) 1 mg PO DAILY PRN PRN Reason: Anxiety Stop: 05/24/21 04:33 Last Admin: 04/24/21 22:18 Dose: 1 mg Documented by: [id number] Nicotine (Nicotine 21 Mg/24 Hr Tdsy) 21 mg TD QAM HEATHER Stop: 05/24/21 08:59 Last Admin: 04/24/21 08:31 Dose: 21 mg Documented by: [id number] Rivaroxaban (Rivaroxaban 20 Mg Tab) 20 mg PO HS HEATHER Stop: 05/24/21 20:59 Last Admin: 04/24/21 22:12 Dose: 20 mg Documented by: [id number] Trazodone HCl (Trazodone Hcl 50 Mg Tab) 50 mg PO HEATHER Stop: 05/24/21 20:59 Last Admin: 04/24/21 22:12 Dose: 50 mg Documented by: [id number] Umeclidinium/Vilanterol (Umeclidinium/Vilanterol 62.5/25mcg 7 Puffs/Inhaler) 1 puffs INH QAM HEATHER Stop: 05/24/21 08:59 Last Admin: 04/24/21 08:30 Dose: 1 puffs Documented by: [id number] Discontinued Medications Albuterol (Albut/Ipratrop 3mg/0.5mg Neb 3 Ml Vial) 3 ml INH NOW STA Stop: 04/23/21 22:35 Last Admin: 04/23/21 23:14 Dose: Not Given Documented by: [id number] Albuterol (Albut/Ipratrop 3mg/0.5mg Neb 3 Ml Vial) 12 ml NEB ONE ONE Stop: 04/23/21 23:11 Last Admin: 04/23/21 23:14 Dose: 12 ml Documented by: [id number] Albuterol (Albut/Ipratrop 3mg/0.5mg Neb 3 Ml Vial) 3 ml NEB NOW STA Stop: 04/23/21 23:43 Last Admin: 04/23/21 23:50 Dose: Not Given Documented by: [id number] Albuterol (Albut/Ipratrop 3mg/0.5mg Neb 3 Ml Vial) 3 ml NEB NOW STA Stop: 04/24/21 02:01 Last Admin: 04/24/21 02:11 Dose: 3 ml Documented by: [id number] Diphenhydramine HCl (Diphenhydramine Capsule 25 Mg Cap) 25 mg PO NOW STA Stop: 04/24/21 15:32 Last Admin: 04/24/21 15:51 Dose: 25 mg Documented by: [id number] Sodium Chloride (Nss 1000ml) 1,000 mls @ 999 mls/hr IV .Q1H1M HEATHER Stop: 04/23/21 23:37 Last Infusion: 04/24/21 01:00 Dose: 0 mls/hr Documented by: [id number] Admin: 04/23/21 23:33 Dose: 999 mls/hr Documented by: [id number] Lorazepam (Ativan) 1 mg in 2 mls @ 2 mls/min IV NOW STA Stop: 04/23/21 22:41 Last Admin: 04/23/21 23:40 Dose: 2 mls/min Documented by: [id number] Sodium Chloride (Nss 1000ml) 1,000 mls @ 999 mls/hr IV .Q1H1M HEATHER Stop: 04/24/21 02:58 Last Infusion: 04/24/21 03:20 Dose: 0 mls/hr Documented by: [id number] Admin: 04/24/21 02:19 Dose: 999 mls/hr Documented by: [id number] Ioversol (Optiray 320 125ml) 120 ml IV ONCE ONE Stop: 04/24/21 01:07 Last Admin: 04/24/21 01:06 Dose: 120 ml Documented by: [id number] Loratadine (Loratadine 10 Mg Tab) 10 mg PO NOW ONE Stop: 04/24/21 03:35 Last Admin: 04/24/21 03:47 Dose: 10 mg Documented by: [id number] Lorazepam (Lorazepam 2 Mg/4 Ml Vial) Confirm Administered Dose 2 mg .ROUTE .STK- MED ONE Stop: 04/23/21 22:37 Last Admin: 04/23/21 23:40 Dose: Not Given Documented by: [id number] Methylprednisolone (Methylprednisolone 125 Mg/2 Ml Vial) 125 mg IV NOW STA Stop: 04/23/21 22:37 Last Admin: 04/23/21 23:18 Dose: Not Given Documented by: [id number] Morphine Sulfate (Morphine Sulfate 2 Mg/Ml Carp) 1 mg IV NOW STA Stop: 04/24/21 03:34 Last Admin: 04/24/21 03:47 Dose: 1 mg Documented by: [id number] Discharge Plan Visit Data Chief Complaint: Respiratory Distress Stated Complaint: RESP DISTRESS ED Provider: Antoine Arguello Discharge Problem: Acute exacerbation of chronic obstructive pulmonary disease Patient Disposition: Admitted As Inpatient Discharge Instructions Interventions: ED Discharge Assessment Last Done: 04/24/21 04:04
[2021-04-23] MEDS ORDERED: LORazepam 1 MG/2 ML VIAL IV STA (22:40)
[2021-04-23] MEDS ORDERED: ALBUT/IPRATROP 3MG/0.5MG NEB 3 ML VIAL NEB ONE (23:10)
[2021-04-23 23:34] LABS: Basophils # (auto) 0.02 K/uL (0-0.2); Basophils % (auto) 0.2 %; Eosinophils # (auto) 0.03 K/uL (0-0.5); Eosinophils % (auto) 0.3 %; Hemoglobin 16.8 g/dL (12.0-16.0); Immature Granulocytes # (auto) 0.03 K/uL (0.00-0.02); Immature Granulocytes % (auto) 0.3 %; Lymphocytes # (auto) 0.52 K/uL (1.2-3.4); Lymphocytes % (auto) 4.7 %; Mean Corpuscular Hemoglobin 32.1 pg (25-34); Mean Corpuscular Volume 91.6 fL (80-100); Mean Platelet Volume 10.4 fL (7.4-10.4); Monocytes # (auto) 0.38 K/uL (0.11-0.59); Monocytes % (auto) 3.5 %; Neutrophils # (auto) 9.98 K/uL (1.4-6.5); Platelet Count 145 K/uL (130-400); RDW Coefficient of Variation 13.5 % (11.5-14.5); RDW Standard Deviation 45.2 fL (36.4-46.3); Red Blood Count 5.24 M/uL (4.2-5.4); White Blood Count 10.96 K/uL (4.8-10.8)
[2021-04-23 23:41] LABS: Base Excess VBG -3.4 mEq/L; pH VBG 7.34 (7.36-7.41)
[2021-04-23] MEDS ORDERED: ALBUT/IPRATROP 3MG/0.5MG NEB 3 ML VIAL NEB STA (23:42)
[2021-04-23 23:51] LABS: BUN Creatinine Ratio 16.1 (10-20); Blood Urea Nitrogen 15 mg/dl (7-18); Calcium 9.3 mg/dl (8.5-10.1); Carbon Dioxide 25 mmol/L (21-32); Chloride 102 mmol/L (98-107); Creatinine Clr Calc Pharmacy 58.5 ml/min; Est GFR (African American) 77.2 ml/min; Est GFR (Non-African American) 66.6 ml/min; Glucose 154 mg/dl (70-99); Potassium 3.8 mmol/L (3.5-5.1); Sodium 135 mmol/L (136-145)
[2021-04-23 23:56] LABS: Troponin I < 0.015 ng/ml (0-0.045)
[2021-04-24] MEDS ORDERED: OPTIRAY 320 125ml IV ONE (01:06)
[2021-04-24] MEDS ORDERED: SODIUM CHLORIDE 0.9% 1000ML 1,000 ML IV SCH (01:58)
[2021-04-24] MEDS ORDERED: ALBUT/IPRATROP 3MG/0.5MG NEB 3 ML VIAL NEB STA (02:00)
--- NOTE | 2021-04-24 03:07 | History & Physical Report ---
Date of Service April 24, 2021 Assessment & Plan (1) COPD exacerbation: Plan: 65 yo F w/ pMHx. of COPD, Active smoker (1 pack/day), Pulmonary embolism (08/23 on Xarelto), Sarcoidosis with VATS (granulomatous pneumonitis), chest wall pain, chronic sinusitis, DJD presenting with shortness of breath. Acute hypoxemic respiratory failure Patient with a past medical history of COPD with frequent exacerbations clinical history of worsening shortness of breath, URI vs. allergy symptoms. Patient uses as needed O2 at home, requiring 4 L on presentation to the ED to maintain saturations of 90%, -Blood cultures obtained and pending -Added Azithromycin given COPD exacerbation -Solu-Medrol 40 mg Q8H -Guaifenesin/dextromethorphan & Tessalon p. for coughing -DuoNebs -Continue home inhalers -Loratadine for allergies -given a dose of Morphine -RT attempting BiPAP, CPAP, and Hi Sunny although patient was was not tolerating this well Sarcoidosis Follows with pulmonology, likely contributing to current presentation -Management as above -If respiratory status does not improve rapidly to consider pulmonology consult Pulmonary embolism History of (08/23) on Xarelto 20 mg nightly -Continue Xarelto Anxiety and depression -Continue lorazepam 1 mg daily as needed -Continue trazodone 50 mg at bedtime -Continue buspirone 10 mg bid Tobacco use Encourage patient stop smoking -Provide a nicotine patch Chronic low back and rib pain -Continue cyclobenzaprine 10 mg 3 times daily as needed Diet: regular Code Status: Full code DVT PPX: On Xarelto Dispo: Telemetry (2) Acute respiratory distress: (3) Anxiety and depression: (4) Sarcoidosis: (5) Tobacco use disorder: History of Present Illness Chief Complaint: shortness of breath Primary Care Provider: NO PCP Karine Ruiz has a past medical history of COPD, Active smoker (1 pack/day), Pulmonary embolism (08/23 on Xarelto), Sarcoidosis with VATS (granulomatous pneumonitis), chest wall pain, chronic sinusitis, DJD. She was in her usual state of health prior to 2 days ago when she experienced symptoms of worsening shortness of breath, runny nose and cough. Currently she is able to speak in 1-2 word sentences. She did not have any sick contacts. She feels that this is similar to prior COPD exacerbations. Patient has baseline COPD on home oxygen prn which she started to use last evening. She states she has a history of frequent COPD exacerbations, requiring frequent hospitalizations. She has been taking her home inhalers with the exception of her Albuterol inhaler which she said was not working for her. ER course: On presentation she was tachycardic, tachypneic, afebrile, requiring 5 L per nasal cannula and not tolerating CPAP or BiPAP. Routine labs were obtained demonstrating a white count of 10.9, lactate 3.9 -> 2.4. X-ray demonstrating chronic hilar enlargement, similar to prior. She was given: Duonebs, Ativan, and steroids. On examination of the patient she was sitting up in bed. Patient related history as described above. She states she has had some improvement status post nebulizer. Allergies Allergy/AdvReac Type Severity Reaction Status Date / Time No Known Allergies Allergy Verified 04/24/21 02:00 Home Medications Medication Instructions Recorded Confirmed Type trazodone 50 mg tablet 50 mg PO HS #90 tab 10/29/20 04/24/21 Rx Oxygen Home #1 ea 01/07/21 04/24/21 Rx nebulizer accessories #1 ea 01/07/21 04/24/21 Rx diclofenac sodium 1 % topical gel 4 g TOPICAL DAILY PRN 01/12/21 04/24/21 History (Voltaren Arthritis Pain) meloxicam 7.5 mg tablet 7.5 mg PO QPM 01/12/21 04/24/21 History lorazepam 1 mg tablet (Ativan) 1 mg PO DAILY PRN #30 tab 02/04/21 04/24/21 Rx albuterol sulfate 90 mcg/actuation 2 puff INHALATION QID PRN #18 gm 03/02/21 04/24/21 Rx aerosol inhaler (Ventolin HFA) fluticasone propionate 110 2 puff INHALATION BID #12 g 03/02/21 04/24/21 Rx mcg/actuation HFA aerosol inhaler (Flovent HFA) rivaroxaban 20 mg tablet (Xarelto) 20 mg PO HS #30 tab 03/02/21 04/24/21 Rx umeclidinium 62.5 mcg-vilanterol 1 inh INHALATION QAM #60 ea 03/03/21 04/24/21 Rx 25 mcg/actuation powdr for inhalation (Anoro Ellipta) albuterol sulfate 2.5 mg INHALATION QID PRN #90 ml 03/11/21 04/24/21 Rx cyclobenzaprine 10 mg tablet 10 mg PO TID PRN #60 tab 04/01/21 04/24/21 Rx buspirone 10 mg tablet 10 mg PO BID 04/24/21 04/24/21 History Past Med/Surg History Medical History Anxiety and depression COPD (chronic obstructive pulmonary disease) History of pulmonary embolism On home O2 Osteoarthritis Osteoporosis Sarcoidosis Scoliosis Surgical History H/O hysterectomy for benign disease (10/02/12) History of hip replacement History of right shoulder replacement Hx of colonoscopy Hx of elbow surgery Family History Father Myocardial infarction Brother Anxiety COPD (chronic obstructive pulmonary disease) Daughter Anxiety Sister Breast cancer Other Diabetes Kidney disease No family history of adverse response to anesthesia Denies family history of Ovarian cancer Prostate cancer Colorectal cancer Social History Smoking Status: Current every day smoker Tobacco Type: Cigarettes Age Started Using Tobacco: 22; packs per day: 0.75; Cigarettes Per Day: 20; Second Hand Exposure: Yes; Hx Alcohol Use: No Hx Substance Use: No Preferred Language: German Communication Ability: Effective Visual Impairment: No Limitations Hearing Ability: Normal Shower Enclosure Installer Required: No Beliefs That Will Affect Care: None marital status: Current Living Situation: Spouse current occupational status: retired and disabled 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 How many Children do You have: 2 Other Information That Helps Us Care for You: No Feels Safe at Home: Yes Safety Concerns: Feels Safe At This Time Childhood Exposure to Second-Hand Smoke: No Dental Care, Regularly: No Physical Activity Frequency: Does not Exercise Seatbelt Use: always Sunscreen Use: No (is not out in the sun much ) Assistive Devices: Oxygen - Continuous Review of Systems Review of Systems: Constitutional: denies fevers, chills, nausea, vomiting admits fatigue Head: denies trauma ENT: admits rhinorrhea, stuffiness, sore throat Cardiac: denies palpitations, leg swelling admits muscle soreness in her chest that she relates to her increased work of breathing Pulm.: denies hemoptysis admits cough, shortness of breath GI: denies diarrhea, constipation, blood in stool : denies frequency, urgency, pain with urination Physical Exam Constitutional: cooperative and + in distress Eyes: PERRL, conjunctivae normal, anicteric sclerae ENMT: external ear and nose normal, oropharynx normal Neck: normal visual inspection Respiratory: + labored breathing, + uses accessory muscles, + tachypneic and + tripod positioning Auscultation: + wheezes (inspiratory and expiratory wheeze appreciated) Cardiovascular: Rate/Rhythm: + tachycardic Extremities: no edema Gastrointestinal (Abdomen): normal bowel sounds, soft, nontender, no he patosplenomegaly Skin: no rashes, warm and dry Neurologic: no focal motor deficits Psychiatric: Orientation: alert and oriented x 3 Results & Data Results & Data ([facility]) Vital Signs (Past 12 Hours) Vital Signs Temp Pulse Pulse Resp BP Pulse Ox 04/24/21 02:11 103 H 31 H 96 04/24/21 02:01 102 H 32 H 104/60 99 04/24/21 01:09 114 H 36 H 103/70 97 04/24/21 00:30 117 H 32 H 125/72 98 04/24/21 00:00 122 H 32 H 124/70 99 04/23/21 23:30 123 H 30 H 104/78 100 04/23/21 23:19 123 H 32 H 104/77 100 04/23/21 23:16 120 H 120 H 37 H 100 04/23/21 22:53 122 H 38 H 98 04/23/21 22:52 97 04/23/21 22:29 37 C 132 H 38 H 178/88 H 97 CBC Results Results Complete Blood Count Results: RBC 4.35 M/uL (4.2-5.4) 04/25/21 WBC 13.72 K/uL (4.8-10.8) H 04/25/21 Hgb 13.8 g/dL (12.0-16.0) 04/25/21 Hct 40.5 % (37-47) 04/25/21 Plt Count 150 K/uL (130-400) 04/25/21 Chemistry (BMP) Results BMP Results: Sodium 138 mmol/L (136-145) 04/25/21 Potassium 4.5 mmol/L (3.5-5.1) 04/25/21 Chloride 108 mmol/L (98-107) H 04/25/21 BUN 22 mg/dl (7-18) H 04/25/21 Creatinine 0.85 mg/dl (0.6-1.2) 04/25/21 Glucose 154 mg/dl (70-99) H 04/25/21 Code Status & VTE Plan VTE Prophylaxis Plan VTE Prophylaxis will be ordered: Yes Supervising Physician Co-Signing Physician Notes Attending addendum: I have physically seen this patient, have supervised the medical residents activities, and agree with the H&P unless as otherwise noted. Assessment and Plan: COPD exacerbation/acute respiratory failure with hypoxia/sarcoidosis- Methylprednisolone 40 mg IV every 8 hours Duonebs every 4 hours while awake and every 2 hours when necessary. Guaifenesin extended release 12 1 mg p.o. twice daily Tessalon Perles 1 mg p.o. 3 times daily as needed Patient intolerant in the ED of BiPAP, CPAP and high flow, but will try again later on after response to IV morphine assessed Pulmonary embolism history- Continue Xarelto Anxiety and depression- Continue lorazepam as needed, trazodone at bedtime and buspirone twice daily Remaining orders and notations as noted Resident Activity Tracking Resident Involvement: Resident Care Provided Care Provided: Adult Hospital Medicine
[2021-04-24 03:20] LABS: Base Excess VBG -7.6 mEq/L; Oxygen Saturation VBG 82.7 %; pH VBG 7.22 (7.36-7.41)
[2021-04-24] MEDS ORDERED: MoRPHine SULFATE 2 MG/ML CARP IV STA (03:33)
[2021-04-24] MEDS ORDERED: LORATADINE 10 MG TAB PO ONE (03:34)
[2021-04-24] MEDS ORDERED: DICLOFENAC SOD 1% GEL 100 GM TUBE EXT PRN (04:10)
[2021-04-24] MEDS ORDERED: CYCLOBENZAPRINE HCL 10 MG TAB PO PRN (04:10)
[2021-04-24] MEDS ORDERED: ALBUTEROL 0.083% NEBU SOLN 3 ML VIAL INH PRN (04:10)
[2021-04-24] MEDS ORDERED: POLYETHYLENE (MIRALAX) 17 GM PACK PO PRN (04:10)
[2021-04-24] MEDS ORDERED: ACETAMINOPHEN 325 MG TAB PO PRN (04:10)
[2021-04-24] MEDS ORDERED: BENZONATATE 100 MG CAPSULE PO PRN (04:10)
[2021-04-24] MEDS: methylPREDNISolone 40 MG in SYRINGE 0 ML IV SCH ×3 (05:45→22:12)
[2021-04-24] MEDS: AZITHROMYCIN 500 MG in DEXTROSE 5% 250 ML IV SCH (05:45)
[2021-04-24 05:54] LABS: Eosinophils # (auto) 0.01 K/uL (0-0.5); Eosinophils % (auto) 0.1 %; Hematocrit (blood only) 42.2 % (37-47); Hemoglobin 14.4 g/dL (12.0-16.0); Immature Granulocytes # (auto) 0.01 K/uL (0.00-0.02); Immature Granulocytes % (auto) 0.1 %; Lymphocytes # (auto) 0.37 K/uL (1.2-3.4); Lymphocytes % (auto) 4.3 %; Mean Corpuscular Hemoglobin 31.4 pg (25-34); Mean Corpuscular Hgb Conc 34.1 g/dL (32-36); Mean Corpuscular Volume 91.9 fL (80-100); Mean Platelet Volume 9.8 fL (7.4-10.4); Monocytes # (auto) 0.07 K/uL (0.11-0.59); Monocytes % (auto) 0.8 %; Neutrophils % (auto) 94.7 %; Platelet Count 131 K/uL (130-400); RDW Coefficient of Variation 13.6 % (11.5-14.5); RDW Standard Deviation 45.7 fL (36.4-46.3); Red Blood Count 4.59 M/uL (4.2-5.4); White Blood Count 8.66 K/uL (4.8-10.8)
[2021-04-24 06:19] LABS: Calcium 8.9 mg/dl (8.5-10.1); Creatinine Clr Calc Pharmacy 47.6 ml/min; Est GFR (African American) 59.9 ml/min; Est GFR (Non-African American) 51.7 ml/min; Potassium 4.2 mmol/L (3.5-5.1)
--- NOTE | 2021-04-24 06:38 | CT Scan Report ---
CT ANGIOGRAPHY OF THE CHEST, PULMONARY EMBOLUS PROTOCOL CLINICAL HISTORY: Shortness of breath. Respiratory distress. COPD. Evaluate for pulmonary embolus. COMPARISON STUDY: Chest CT January 13, 2021. Chest radiograph April 23, 2021. TECHNIQUE: Following IV administration of 120 mL of Optiray, helical axial images of the chest were o btained utilizing the pulmonary embolus protocol. Maximal intensity projections and sagittal and cor onal reformats were viewed on an independent 3D workstation. IV contrast was administered without co mplication. Automated exposure control was utilized for the study. A dose lowering technique was ut ilized adhering to the principles of ALARA. CT DOSE: 582.98 mGy.cm FINDINGS: No pulmonary emboli are identified although the segmental and subsegmental pulmonary arter ies are suboptimally assessed due to respiratory motion. The size of the heart is normal. There is no thoracic aortic dissection. Numerous calcified mediastinal bilateral hilar lymph nodes are present. There is a small hernia. Lungs are suboptimally assessed due to respiratory motion. There are severe emphysema. Left suprahilar masslike density is unchanged. Irregular densities throughout the lungs ar e unchanged with architectural distortion. These are similar to chest CT of May 28, 2019 [address] or chest CT of January 13, 2021. Old bilateral rib fractures are present. Visualized portions of the upp er abdomen are unremarkable. IMPRESSION: 1. No pulmonary emboli identified although segmental and subsegmental pulmonary arteries suboptimally assessed due to respiratory motion. 2. No change in appearance of the chest. Severe emphysema and fibrotic change suggestive of underlyin g granulomatous process such as sarcoidosis. 3. No consolidation to suggest superimposed pneumonia. ACT 112: Negative or not required by law. Electronically signed by: Carlos Cunha M.D. 04/24/2021 6:37 AM
[2021-04-24] MEDS: ALBUT/IPRATROP 3MG/0.5MG NEB 3 ML VIAL NEB SCH ×4 (07:12→20:02)
--- NOTE | 2021-04-24 07:52 | Hospitalist Progress Note ---
Date of Service April 24, 2021 Assessment & Plan (1) COPD exacerbation: Plan: 65 yo F w/ pMHx. of COPD, Active smoker (1 pack/day), Pulmonary embolism (08/23 on Xarelto), Sarcoidosis with VATS (granulomatous pneumonitis), chest wall pain, chronic sinusitis, DJD presenting with shortness of breath 2/2 to COPD exacerbation. Still has increased WOB and is saturating 99 on 4L, w/ slight improvement clinically. Acute hypoxemic respiratory failure H/o COPD with frequent exacerbations with clinical history of worsening shortness of breath, URI vs. allergy symptoms. Uses as needed O2 at home. requiring 4 L on presentation to the ED to maintain saturations of 90%. W/ associated tachycardia 100s. CTA neg for PE. Lower suspicion for hypervolemia. -Blood cultures obtained and pending - Azithromycin given COPD exacerbation -Solu-Medrol 40 mg Q8H -Guaifenesin/dextromethorphan & Tessalon p. for coughing -DuoNebs -Continue home inhalers -ordered Benadryl x1 -pastoral counselor on smoking -given a dose of Morphine last night w/ some improvement in increased WOB, but will avoid if possible. Will trial bipap first; patient did not tolerate bipap, cpap, hi flow at admission because of discomfort. Uvula swelling - supports allergic type etiology to COPD exac - provided benadryl x1; no epi because would worsen in setting of COPD exac - follow clinically Sarcoidosis Follows with pulmonology, likely contributing to current presentation -Management as above -If respiratory status does not improve rapidly to consider pulmonology consult Pulmonary embolism History of (08/23) on Xarelto 20 mg nightly -Continue Xarelto Anxiety and depression -Continue lorazepam 1 mg daily as needed -Continue trazodone 50 mg at bedtime -Continue buspirone 10 mg bid Tobacco use Encourage patient stop smoking -Provide a nicotine patch Chronic low back and rib pain -Continue cyclobenzaprine 10 mg 3 times daily as needed Diet: regular Code Status: Full code DVT PPX: On Xarelto Dispo: Telemetry (2) Acute respiratory distress: (3) Anxiety and depression: (4) Sarcoidosis: (5) Tobacco use disorder: (6) Tachycardia: (7) Uvular swelling: Admission and Anticipated Discharge Date Admission Date: April 24, 2021 Supervising Physician Co-Signing Physician Notes Resident Physician Supervision Note: I independently interviewed and examined the patient and verified the patel history and physical, reviewed labs and image studies and agree with resident Dr. Almonte findings and care plan. Subjective During my exam this morning, patient feeling a little better than admission. Breathing at rest is better. 99% on 4L nc. Cough w/ slightly clear/yellowish sputum. Dyspnea started 2 days ago, worsened yesterday. Initial symptoms were runny nose and cough. Home O2 prn, doesnt need often. yesterday, used 3-4L. Denies fever at home. Had both doses Pfizer by August 2020. Has 3 inhalers at home that won't puff fully. Current smoker 1 ppd. hx sarcoidosis. She ate some scrambled eggs this am. Took new lozenge yest am. Throat felt swollen an hour later. This preceded the resp exacerbation. Today, still feels a little swollen. severity slightly better. She has had prior copd exac hospitalizations in past. Had pna last admission. States current admission symptoms are milder than last time PM update: slight improvement in sob. Still has some inc wob. Wheezing less loud. Review of Systems Review of Systems: All systems reviewed & are unremarkable except as noted in HPI & below Constitutional: Denies fever, chills, weight change Eyes: Denies blurry vision, vision changes ENT: Denies sore throat, sinus pain Cardiovascular: Denies chest pain, palpitations Respiratory: See HPI Gastrointestinal: Denies abdominal pain, nausea, vomiting, constipation, diarrhea Genitourinary: Denies urinary symptoms including dysuria Musculoskeletal: Denies weakness, muscle aches/pain, joint aches/pain Neurological: Denies headache, numbness, tingling, focal weakness Physical Exam Physical Exam: General: Grossly A&O. NAD. Cooperative. HEENT: Atraumatic, normocephalic. EOMI. Has dentures. Uvula swollen. No pain on external palpation of neck/throat. No LAD. Pulm: + accessory muscle use. + loud exp wheezes. Cardiac: RRR, -mrg. No LE edema. Abdominal: Nontender, nondistended, soft. Results & Data Results & Data ([facility]) Vital Signs (Past 12 Hours) Vital Signs 120s at admission, 100s-110s since. rr upper 20s low 30s. 95+ on 4-5L. currently 1010am. 95 hr. 98/48. 98% 4L Temp Pulse Pulse Resp BP BP Pulse Ox 04/24/21 07:12 99 H 24 98 04/24/21 04:12 36.7 C 111 H 28 H 129/80 95 04/24/21 03:30 114 H 36 H 109/79 95 04/24/21 03:00 115 H 32 H 124/77 95 04/24/21 02:30 107 H 28 H 101/71 98 04/24/21 02:11 103 H 31 H 96 04/24/21 02:01 102 H 32 H 104/60 99 04/24/21 01:09 114 H 36 H 103/70 97 04/24/21 00:30 117 H 32 H 125/72 98 04/24/21 00:00 122 H 32 H 124/70 99 04/23/21 23:30 123 H 30 H 104/78 100 04/23/21 23:19 123 H 32 H 104/77 100 04/23/21 23:16 120 H 120 H 37 H 100 04/23/21 22:53 122 H 38 H 98 04/23/21 22:52 97 04/23/21 22:29 37 C 132 H 38 H 178/88 H 97 Laboratory Results leukocytosis resolved 10.96->8.66. Hb 16.8H->14.4. Plts 131, has had similar intermittenly at similar lvls in past. 204 on 01/18/21. vbg ph 7.34->7.22. HypoNa resolved 135L->139.Cr 1.11, baseline .~.8s. bsg 174H. lactate 2.4H->3.9H. covid neg. s/p pfizer#2 10/14/20. neg trop x1 04/23/21 BC pending 04/24/21 05:47 04/24/21 05:47 Diagnostic Findings 04/23/21 cxr per my read unchanged from 01/13/21 cxr. Chest X-Ray 04/23/21 22:34 XR chest 1V portable CLINICAL HISTORY: Respiratory Distress COMPARISON STUDY: Chest radiograph and chest CT January 13, 2021. FINDINGS: Right shoulder arthroplasty is incidentally noted. Cardiac size is normal. Calcified mediastinal and bilateral hilar lymph nodes are noted as well as calcified nodules within the lungs. Left suprahilar density is unchanged from earlier exams. This is chronic. Architectural distortion is again noted. Hilar enlargement is unchanged. IMPRESSION: No acute cardiopulmonary findings. No change in appearance of the chest, as described above. ACT 112: Negative or not required by law. Electronically signed by: Carlos Cunha M.D. 04/24/2021 8:36 AM Chest CTA 04/24/21 00:25 CT ANGIOGRAPHY OF THE CHEST, PULMONARY EMBOLUS PROTOCOL CLINICAL HISTORY: Shortness of breath. Respiratory distress. COPD. Evaluate for pulmonary embolus. COMPARISON STUDY: Chest CT January 13, 2021. Chest radiograph April 23, 2021. TECHNIQUE: Following IV administration of 120 mL of Optiray, helical axial images of the chest were obtained utilizing the pulmonary embolus protocol. Maximal intensity projections and sagittal and coronal reformats were viewed on an independent 3D workstation. IV contrast was administered without complication. Automated exposure control was utilized for the study. A dose lowering technique was utilized adhering to the principles of ALARA. CT DOSE: 582.98 mGy.cm FINDINGS: No pulmonary emboli are identified although the segmental and subsegmental pulmonary arteries are suboptimally assessed due to respiratory motion. The size of the heart is normal. There is no thoracic aortic dissection. Numerous calcified mediastinal bilateral hilar lymph nodes are present. There is a small hernia. Lungs are suboptimally assessed due to respiratory motion. There are severe emphysema. Left suprahilar masslike density is unchanged. Irregular densities throughout the lungs are unchanged with architectural distortion. These are similar to chest CT of May 28, [address] of January 13, 2021. Old bilateral rib fractures are present. Visualized portions of the upper abdomen are unremarkable. IMPRESSION: 1. No pulmonary emboli identified although segmental and subsegmental pulmonary arteries suboptimally assessed due to respiratory motion. 2. No change in appearance of the chest. Severe emphysema and fibrotic change suggestive of underlying granulomatous process such as sarcoidosis. 3. No consolidation to suggest superimposed pneumonia. ACT 112: Negative or not required by law. Electronically signed by: Carlos Cunha M.D. 04/24/2021 6:37 AM ECG Additional Comments: repeat ecg: sinus tach 105 initial ecg: Resident Activity Tracking Resident Involvement: Resident Care Provided Care Provided: [facility]
[2021-04-24] MEDS: UMECLIDINIUM/VILANTEROL 62.5/25MCG 7 PUFFS/INHALER INH SCH (08:30)
[2021-04-24] MEDS: FLUTICASONE FUROATE 200MCG 14 PUFFS/INHALER INH SCH (08:30)
[2021-04-24] MEDS: NICOTINE 21 MG/24 HR TDSY TD SCH (08:31)
[2021-04-24] MEDS: guaiFENesin 600 MG TABCR PO SCH ×2 (08:31→22:12)
[2021-04-24] MEDS: busPIRone 5 MG TAB PO SCH ×2 (08:31→22:12)
--- NOTE | 2021-04-24 08:38 | XRay Report ---
XR chest 1V portable CLINICAL HISTORY: Respiratory Distress COMPARISON STUDY: Chest radiograph and chest CT January 13, 2021. FINDINGS: Right shoulder arthroplasty is incidentally noted. Cardiac size is normal. Calcified medias tinal and bilateral hilar lymph nodes are noted as well as calcified nodules within the lungs. Left s uprahilar density is unchanged from earlier exams. This is chronic. Architectural distortion is again noted. Hilar enlargement is unchanged. IMPRESSION: No acute cardiopulmonary findings. No change in appearance of the chest, as described ab ove. ACT 112: Negative or not required by law. Electronically signed by: Carlos Cunha M.D. 04/24/2021 8:36 AM
--- NOTE | 2021-04-24 14:08 | Electrocardiogram Report ---
Test Reason : Blood Pressure : / mmHG Vent. Rate : 126 BPM Atrial Rate : 126 BPM P-R Int : 126 ms QRS Dur : 070 ms QT Int : 292 ms P-R-T Axes : 065 143 070 degrees QTc Int : 422 ms Poor data quality, interpretation may be adversely affected Sinus tachycardia Right axis deviation Cannot rule out Septal infarct , age undetermined Abnormal ECG When compared with ECG of 12-JAN-2021 07:35, No significant change Confirmed by Alan Stoddard ([id number]) on 04/24/2021 2:08:16 PM Referred By: REFERRED SELF Confirmed By:Alan Stoddard
--- NOTE | 2021-04-24 14:10 | Electrocardiogram Report ---
Test Reason : Blood Pressure : / mmHG Vent. Rate : 105 BPM Atrial Rate : 105 BPM P-R Int : 140 ms QRS Dur : 072 ms QT Int : 330 ms P-R-T Axes : 070 137 076 degrees QTc Int : 436 ms Sinus tachycardia Right axis deviation Nonspecific ST abnormality Abnormal ECG When compared with ECG of 23-APR-2021 22:40, (unconfirmed) Criteria for Septal infarct are no longer Present Confirmed by Alan Stoddard ([id number]) on 04/24/2021 2:10:05 PM Referred By: REFERRED SELF Confirmed By:Alan Stoddard
[2021-04-24] MEDS ORDERED: diphenhydrAMINE Capsule 25 MG CAP PO STA (15:31)
[2021-04-24] MEDS: traZODone HCL 50 MG TAB PO SCH (22:12)
[2021-04-24] MEDS: RIVAROXABAN 20 MG TAB PO SCH (22:12)
[2021-04-24] MEDS: LORazepam 1 MG TAB PO PRN (22:18)
[2021-04-25] MEDS: AZITHROMYCIN 500 MG in DEXTROSE 5% 250 ML IV SCH (05:46)
[2021-04-25] MEDS: methylPREDNISolone 40 MG in SYRINGE 0 ML IV SCH ×3 (05:46→21:49)
[2021-04-25 06:11] LABS: Hematocrit (blood only) 40.5 % (37-47); Hemoglobin 13.8 g/dL (12.0-16.0); Immature Granulocytes # (auto) 0.02 K/uL (0.00-0.02); Immature Granulocytes % (auto) 0.1 %; Lymphocytes # (auto) 0.73 K/uL (1.2-3.4); Lymphocytes % (auto) 5.3 %; Mean Corpuscular Hemoglobin 31.7 pg (25-34); Mean Corpuscular Hgb Conc 34.1 g/dL (32-36); Mean Corpuscular Volume 93.1 fL (80-100); Mean Platelet Volume 10.2 fL (7.4-10.4); Monocytes # (auto) 0.49 K/uL (0.11-0.59); Monocytes % (auto) 3.6 %; Neutrophils # (auto) 12.48 K/uL (1.4-6.5); Platelet Count 150 K/uL (130-400); RDW Coefficient of Variation 13.5 % (11.5-14.5); RDW Standard Deviation 46.1 fL (36.4-46.3); Red Blood Count 4.35 M/uL (4.2-5.4); White Blood Count 13.72 K/uL (4.8-10.8)
[2021-04-25 06:30] LABS: BUN Creatinine Ratio 25.9 (10-20); Calcium 9.3 mg/dl (8.5-10.1); Creatinine Clr Calc Pharmacy 62.1 ml/min; Est GFR (African American) 82.8 ml/min; Est GFR (Non-African American) 71.4 ml/min; Potassium 4.5 mmol/L (3.5-5.1)
[2021-04-25 06:32] LABS: Albumin Globulin Ratio 0.9 (0.9-2); Bilirubin,Total 0.7 mg/dl (0.2-1); Globulin 3.4 gm/dl (2.5-4.0); Total Protein 6.4 gm/dl (6.4-8.2)
[2021-04-25] MEDS: ALBUT/IPRATROP 3MG/0.5MG NEB 3 ML VIAL NEB SCH ×4 (07:04→20:19)
--- NOTE | 2021-04-25 09:15 | Hospitalist Progress Note ---
Date of Service April 25, 2021 Assessment & Plan (1) COPD exacerbation: Plan: 65 yo F w/ pMHx. of COPD, Active smoker (1 pack/day), Pulmonary embolism (08/23 on Xarelto), Sarcoidosis with VATS (granulomatous pneumonitis), chest wall pain, chronic sinusitis, DJD presenting with shortness of breath 2/2 to COPD exacerbation. WOB has resolved and patient is near baseline, saturating 96 on 3L. Acute hypoxemic respiratory failure H/o COPD with frequent exacerbations with clinical history of worsening shortness of breath, URI vs. allergy symptoms. Uses as needed O2 at home. requiring 4 L on presentation to the ED to maintain saturations of 90%. W/ associated tachycardia 100s. CTA neg for PE. Lower suspicion for hypervolemia. -Blood cultures obtained and pending - Azithromycin given COPD exacerbation -Solu-Medrol 40 mg Q8H -Guaifenesin/dextromethorphan & Tessalon p. 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 Uvula swelling, subjectively improved - supports allergic type etiology to COPD exac - provided benadryl ; no epi because would worsen in setting of COPD exac - follow clinically Sarcoidosis Follows with pulmonology, likely contributing to current presentation -Management as above Pulmonary embolism History of (08/23) on Xarelto 20 mg nightly -Continue Xarelto Anxiety and depression -Continue lorazepam 1 mg daily as needed -Continue trazodone 50 mg at bedtime -Continue buspirone 10 mg bid Tobacco use Encourage patient stop smoking -Provide a nicotine patch Chronic low back and rib pain -Continue cyclobenzaprine 10 mg 3 times daily as needed Diet: regular Code Status: Full code DVT PPX: On Xarelto Dispo: PCU-> med/surg (2) Acute respiratory distress: (3) Anxiety and depression: (4) Sarcoidosis: (5) Tobacco use disorder: (6) Tachycardia: (7) Uvular swelling: Admission and Anticipated Discharge Date Admission Date: April 24, 2021 Supervising Physician Co-Signing Physician Notes Resident Physician Supervision Note: I independently interviewed and examined the patient and verified the patel history and physical, reviewed labs and image studies and agree with resident Dr. Almonte findings and care plan. Subjective Breathing is much improved, but not back at baseline. She hears wheezing when she breathes. She feels the benadryl yesterday helped as her throat doesn't feel sore any more. Denies other complaints. Ate breakfast w/o throat discomfort. Review of Systems Review of Systems: Constitutional: Denies fever, chills Eyes: Denies blurry vision, vision changes ENT: Denies sore throat, sinus pain Cardiovascular: Denies chest pain, palpitations Respiratory: See HPI. No SOB at rest. Mild productive yellow sputum. Gastrointestinal: Denies abdominal pain, nausea, vomiting, constipation, d iarrhea Genitourinary: Denies urinary symptoms including dysuria Musculoskeletal: Denies weakness, muscle aches/pain, joint aches/pain Neurological: Denies headache, numbness, tingling, focal weakness Physical Exam Physical Exam: General: Grossly A&O. NAD. Cooperative. HEENT: Atraumatic, normocephalic. EOMI. Uvula enlarged. Pulm: No accessory muscle use. + moderate expiratoy wheezes, much improved from yesterday's exam. Cardiac: RRR, -mrg. No LE edema. Abdominal: Nontender, nondistended, soft. Results & Data Results & Data ([facility]) Vital Signs (Past 12 Hours) Vital Signs Satting mid 90s on 3L (improving) NC. tachy 90s-100s. RR mostly ~10. Soft bps 98/48, 98/60 intermittently Temp Pulse Resp BP Pulse Ox 04/25/21 07:04 91 H 18 98 04/25/21 04:16 36.8 C 89 22 105/60 93 04/25/21 00:08 36.8 C 93 H 22 102/57 L 96 04/24/21 22:22 36.7 C 96 H 20 98/60 L 96 Laboratory Results wbc 10.96->8.66->13.72 (is on steroids). Hb 16.80>14.4->13.8. Plts stable 150. electrolytes stable. BUN 12->22. Cr 1.11->.85. BUN/Cr 11.0->25.9. lactate 3.9- >1.7. BC 04/23 24 hrs ng Cardiac Enzymes 04/25/21 Range/Units 05:55 AST 15 (15-37) U/L CBC 04/25/21 Range/Units 05:55 WBC 13.72 H (4.8-10.8) K/uL RBC 4.35 (4.2-5.4) M/uL Hgb 13.8 (12.0-16.0) g/dL Hct 40.5 (37-47) % Plt Count 150 (130-400) K/uL Neut # (Auto) 12.48 H (1.4-6.5) K/uL Lymph # (Auto) 0.73 L (1.2-3.4) K/uL Motley # (Auto) 0.49 (0.11-0.59) K/uL Eos # (Auto) 0.00 (0-0.5) K/uL Baso # (Auto) 0.00 (0-0.2) K/uL Comprehensive Metabolic Panel 04/25/21 Range/Units 05:55 Sodium 138 (136-145) mmol/L Potassium 4.5 (3.5-5.1) mmol/L Chloride 108 H (98-107) mmol/L Carbon Dioxide 27 (21-32) mmol/L BUN 22 H D (7-18) mg/dl Creatinine 0.85 (0.6-1.2) mg/dl Glucose 154 H (70-99) mg/dl Calcium 9.3 (8.5-10.1) mg/dl AST 15 (15-37) U/L ALT 18 (12-78) U/L Alkaline Phosphatase 86 (45-117) U/L Total Protein 6.4 (6.4-8.2) gm/dl Albumin 3.0 L (3.4-5.0) gm/dl Intake and Output 04/24/21 04/25/21 04/25/21 22:59 06:59 14:59 Intake Total 600 / 855 Balance 600 / 855 Intake: Oral 600 / 600 Other: # Unmeasured Voids 3 Resident Activity Tracking Resident Involvement: Resident Care Provided Care Provided: Adult [facility]
[2021-04-25] MEDS: FLUTICASONE FUROATE 200MCG 14 PUFFS/INHALER INH SCH (09:16)
[2021-04-25] MEDS: UMECLIDINIUM/VILANTEROL 62.5/25MCG 7 PUFFS/INHALER INH SCH (09:17)
[2021-04-25] MEDS: NICOTINE 21 MG/24 HR TDSY TD SCH (09:18)
[2021-04-25] MEDS: busPIRone 5 MG TAB PO SCH ×2 (09:18→21:03)
[2021-04-25] MEDS: guaiFENesin 600 MG TABCR PO SCH ×2 (09:18→21:02)
[2021-04-25] MEDS ORDERED: diphenhydrAMINE Capsule 25 MG CAP PO STA (11:35)
[2021-04-25] MEDS: traZODone HCL 50 MG TAB PO SCH (21:02)
[2021-04-25] MEDS: RIVAROXABAN 20 MG TAB PO SCH (21:03)
[2021-04-25] MEDS: LORazepam 1 MG TAB PO PRN (21:05)
--- NOTE | 2021-04-25 21:54 | Billing Data ---
Date of Service April 25, 2021 Coding Level of Care Code 79726 Initial Inpt Care Lvl 3
[2021-04-26] MEDS: AZITHROMYCIN 500 MG in DEXTROSE 5% 250 ML IV SCH (06:37)
[2021-04-26] MEDS: methylPREDNISolone 40 MG in SYRINGE 0 ML IV SCH ×2 (06:37→14:39)
[2021-04-26 06:39] LABS: Hematocrit (blood only) 43.5 % (37-47); Hemoglobin 14.3 g/dL (12.0-16.0); Immature Granulocytes # (auto) 0.04 K/uL (0.00-0.02); Immature Granulocytes % (auto) 0.4 %; Lymphocytes # (auto) 0.81 K/uL (1.2-3.4); Lymphocytes % (auto) 7.3 %; Mean Corpuscular Hemoglobin 31.2 pg (25-34); Mean Corpuscular Hgb Conc 32.9 g/dL (32-36); Mean Corpuscular Volume 94.8 fL (80-100); Mean Platelet Volume 10.4 fL (7.4-10.4); Monocytes # (auto) 0.36 K/uL (0.11-0.59); Monocytes % (auto) 3.2 %; Neutrophils # (auto) 9.89 K/uL (1.4-6.5); Neutrophils % (auto) 89.1 %; Platelet Count 152 K/uL (130-400); RDW Coefficient of Variation 13.8 % (11.5-14.5); RDW Standard Deviation 47.5 fL (36.4-46.3); Red Blood Count 4.59 M/uL (4.2-5.4)
[2021-04-26 07:17] LABS: Calcium 9.6 mg/dl (8.5-10.1); Creatinine Clr Calc Pharmacy 55.6 ml/min; Est GFR (African American) 72.3 ml/min; Est GFR (Non-African American) 62.4 ml/min; Potassium 4.6 mmol/L (3.5-5.1)
[2021-04-26] MEDS: ALBUT/IPRATROP 3MG/0.5MG NEB 3 ML VIAL NEB SCH ×3 (07:20→15:08)
--- NOTE | 2021-04-26 08:11 | Hospitalist Progress Note ---
Date of Service April 26, 2021 Assessment & Plan Admission and Anticipated Discharge Date Admission Date: April 24, 2021 Results & Data Results & Data ([facility]) Vital Signs (Past 12 Hours) Vital Signs Temp Pulse Pulse Resp BP Pulse Ox 04/26/21 07:20 85 16 95 04/26/21 07:17 36.7 C 85 16 94/61 L 95 04/25/21 22:24 36.8 C 94 H 18 118/78 94 04/25/21 20:19 96 H 16 93
[2021-04-26] MEDS: busPIRone 5 MG TAB PO SCH (08:45)
[2021-04-26] MEDS: FLUTICASONE FUROATE 200MCG 14 PUFFS/INHALER INH SCH (08:45)
[2021-04-26] MEDS: UMECLIDINIUM/VILANTEROL 62.5/25MCG 7 PUFFS/INHALER INH SCH (08:45)
[2021-04-26] MEDS: guaiFENesin 600 MG TABCR PO SCH (08:45)
[2021-04-26] MEDS: NICOTINE 21 MG/24 HR TDSY TD SCH (08:45)
--- NOTE | 2021-04-26 14:35 | Discharge Summary ---
Date of Service April 26, 2021 Admission HPI Per Admitting Provider Karine Ruiz has a past medical history of COPD, Active smoker (1 pack/day), Pulmonary embolism (08/23 on Xarelto), Sarcoidosis with VATS (granulomatous pneumonitis), chest wall pain, chronic sinusitis, DJD. She was in her usual state of health prior to 2 days ago when she experienced symptoms of worsening shortness of breath, runny nose and cough. Currently she is able to speak in 1-2 word sentences. She did not have any sick contacts. She feels that this is similar to prior COPD exacerbations. Patient has baseline COPD on home oxygen prn which she started to use last evening. She states she has a history of frequent COPD exacerbations, requiring frequent hospitalizations. She has been taking her home inhalers with the exception of her Albuterol inhaler which she said was not working for her. ER course: On presentation she was tachycardic, tachypneic, afebrile, requiring 5 L per nasal cannula and not tolerating CPAP or BiPAP. Routine labs were obtained demonstrating a white count of 10.9, lactate 3.9 -> 2.4. X-ray demonstrating chronic hilar enlargement, similar to prior. She was given: Duonebs, Ativan, and steroids. On examination of the patient she was sitting up in bed. Patient related history as described above. She states she has had some improvement status post nebulizer. Principal Diagnosis COPD exacerbation Discharge Exam GENERAL: A&Ox3. NAD. HEENT: PERRL, EOMI. Moist mucous membranes. NECK: No JVD. No lymphadenopathy. CHEST/LUNGS: Mild wheezes throughout HEART: RRR. No m/g/r. No carotid bruits. ABDOMEN: NT/ND, soft. BS+ x4 EXTREMITIES: No cyanosis, no clubbing, no edema SKIN: Warm and dry. No rashes or lesions. PSYCHIATRIC: Euthymic affect, no SI, no pressured speech, no hallucinations Discharge Data Allergies Allergy/AdvReac Type Severity Reaction Status Date / Time No Known Allergies Allergy Verified 04/24/21 02:00 Consultations 04/24/21 03:35 ED Decision to Admit Stat Ordered Studies 04/24/21 00:25 CT angio chest PE protocol Urgent Hospital Course (1) COPD exacerbation: 65 yo F w/ pMHx. of COPD, Active smoker (1 pack/day), Pulmonary embolism (08/23 on Xarelto), Sarcoidosis with VATS (granulomatous pneumonitis), chest wall pain, chronic sinusitis, DJD presenting with shortness of breath 2/2 to COPD exacerbation. WOB has resolved and patient is near baseline, saturating 96 on 3L. Acute hypoxemic respiratory failure H/o COPD with frequent exacerbations with clinical history of worsening shortness of breath, URI vs. allergy symptoms. Uses as needed O2 at home. requiring 4 L on presentation to the ED to maintain saturations of 90%. W/ associated tachycardia 100s. CTA neg for PE. Lower suspicion for hypervolemia. -Blood cultures obtained and pending - Azithromycin given COPD exacerbation -- additional 500mg dose day after DC -Solu-Medrol 40 mg Q8H while admitted -- transition to prednisone taper at DC -Continue home inhalers Uvula swelling, subjectively improved - supports allergic type etiology to COPD exac - provided Benadryl x1 with resolution Sarcoidosis - Follows with pulmonology, likely contributing to current presentation -Management as above Pulmonary embolism - History of (08/23) on Xarelto 20 mg nightly - Continue Xarelto Anxiety and depression -Continue lorazepam 1 mg daily as needed -Continue trazodone 50 mg at bedtime -Continue buspirone 10 mg bid Tobacco use - Encourage patient stop smoking Chronic low back and rib pain -Continue cyclobenzaprine 10 mg 3 times daily as needed Code Status: Full code Dispo: Home, self care (2) Acute respiratory distress: (3) Anxiety and depression: (4) Sarcoidosis: (5) Tobacco use disorder: (6) Tachycardia: (7) Uvular swelling: Total Time Total Time Spent Total Time Spent (In Minutes): <30 Discharge Plan Discharge Items Patient Disposition: Home - Self-Care Reason For Visit: COPD EXACERBATION Discharge Diagnosis: COPD exacerbation Activity: Per Instructions section Non-emergency contact: Primary Care Provider Call non-emergency contact if: you have any medication questions, your symptoms worsen and you have a fever Follow-up/Referrals: PCP,NO [Primary Care Provider] - Diet: Heart Healthy Addtl Attending Provider Instructions: You were admitted to [facility] due to a COPD exacerbation. You were started on azithromycin and IV steroids, which helped you improve over the course of 2 days. As you have improved significantly, you will be discharged to finish your treatment at home. We will prescribe an additional dose of azithromycin 500mg for one day. Additionally we will prescribe a prednisone taper over 8 days for you. Please continue to take your inhalers regularly as scheduled. Please follow with your PCP for discussion of your hospitalization and care going forward. Pending Studies at Discharge: No Stand-Alone Forms: My [facility], Smoking Cessation Medications and DC Order Prescriptions: New azithromycin 500 mg tablet 500 mg PO DAILY 1 Days Qty: 1 RF: 0 prednisone 10 mg tablet See Rx Instructions .ROUTE .COMPLEX Qty: 20 RF: 0 Continued trazodone 50 mg tablet 50 mg PO HS Qty: 90 RF: 3 lorazepam [Ativan] 1 mg tablet 1 mg PO DAILY PRN (Reason: Anxiety) Qty: 30 RF: 3 Anoro Ellipta 62.5-25 mcg/actuation blister with device 1 inh inhalation QAM Qty: 60 RF: 5 albuterol sulfate 2.5 mg /3 mL (0.083 %) solution for nebulization 2.5 mg INHALATION QID PRN (Reason: Shortness Of Breath Or Wheezing) Qty: 90 RF: 5 cyclobenzaprine 10 mg tablet 10 mg PO TID PRN (Reason: Muscle Spasm) Qty: 60 RF: 2 albuterol sulfate [Ventolin HFA] 90 mcg/actuation HFA aerosol inhaler 2 puff inhalation QID PRN (Reason: Shortness Of Breath Or Wheezing) Qty: 18 RF: 11 Flovent HFA 110 mcg/actuation HFA aerosol inhaler 2 puff inhalation BID Qty: 12 RF: 5 Xarelto 20 mg tablet 20 mg PO HS Qty: 30 RF: 5 (DME) nebulizer accessories Kit See Rx Instructions .MEDSUPPLY Qty: 1 RF: 5 (DME) Oxygen Home Liters Per Minute See Rx Instructions .MEDSUPPLY Qty: 1 RF: 5 buspirone 10 mg tablet 10 mg PO BID RF: 0 diclofenac sodium [Voltaren Arthritis Pain] 1 % gel 4 g TOPICAL DAILY PRN (Reason: Pain) RF: 0 meloxicam 7.5 mg tablet 7.5 mg PO QPM RF: 0 Discharge Orders: Discharge Order (Routine); Ordered 04/26/21 Ordered By: Mariusz Rosario Admission Data Admit Date/Time: 04/24/21 03:01 Attending Provider: Lucas Cerda Admit Provider: Abner Morgan Primary Care Provider: PCP,NO Other Providers: Basilio Cary Other Interventions: Discharge Summary Assessment (RN) Last Done: 04/26/21 14:56 Supervising Physician Co-Signing Physician Notes I personally examined the patient and verified all patel points of history and exam, discussed case, and agree with decision making with Dr Gore. Feeling better. Wants to go home. Discussed smoke cessationshe is more motivated to quit. Her does smoke, but he notes it would be easy for him to quit according to her. She is now taking her inhalers regularly scheduled rather than just as needed. Vitals noted, in general she is awake and alert pleasant no distress. HEENT normocephalic atraumatic mucous membranes moist. Breathing unlabored, lungs show diffuse wheezes but good air entry good effort. No accessory muscle use. COPD exacerbationimproved, stable for home. Finish out a course of azithromycin, steroid taper, continue inhalers, heavily encouraged smoke cessation. Otherwise as above. Resident Activity Tracking Resident Involvement: Resident Care Provided Care Provided: Adult Hospital Medicine
--- NOTE | 2021-04-26 15:48 | Billing Data ---
Date of Service April 26, 2021 Coding Level of Care Code D/C DAY MANAGEMENT <30 MINS
== END 2021-04-26 15:19 | disposition home or self-care (01) | DRG 190 ==
LOC: ED 22:20 → EDINP 04-24 03:01 → SUATTDRO 04-24 03:01 → 3E 04-25 04:04

== ENCOUNTER 2021-12-18 16:54 | Inpatient (IN) ==
[2021-12-18] MEDS ORDERED: ALBUT/IPRATROP 3MG/0.5MG NEB 3 ML VIAL ONE (17:05)
[2021-12-18] MEDS ORDERED: SODIUM CHLORIDE 0.9% 500 ML IV STA (17:10)
[2021-12-18] MEDS ORDERED: dexAMETHasone**PF** 10 MG/ML VIAL IV ONE (17:10)
[2021-12-18] MEDS ORDERED: ALBUT/IPRATROP 3MG/0.5MG NEB 3 ML VIAL INH STA (17:10)
[2021-12-18] MEDS ORDERED: LORazepam 2 MG/1 ML VIAL IV STA (17:10)
[2021-12-18] MEDS ORDERED: MAGNESIUM SULFATE / D5W 1 GM/100 ML BAG IV STA (17:12)
[2021-12-18] MEDS ORDERED: AZITHROMYCIN 500 MG in DEXTROSE 5% 250 ML IV STA (17:21)
[2021-12-18] MEDS ORDERED: cefTRIAXone SODIUM 2,000 MG/70 ML BAG IV STA (17:21)
--- NOTE | 2021-12-18 17:21 | Emergency Department Note ---
History of Present Illness General Chief complaint: Shortness of Breath/Dyspnea Stated complaint: Shortness of breath Time Seen by Provider: 12/18/21 16:55 History of Present Illness 66-year-old female presents to the ED with a chief complaint of shortness of breath for the past couple of days. She also reports a new productive cough for the past 2 days that is productive of a white/yellow sputum. She has a history of COPD. She continues to smoke. The patient uses 3 L of home oxygen at all times. She is requiring 6 L now. The patient is chronically on Xarelto for history of PE. She did a nebulizer treatment herself at home as well as was provided 1 with EMS. She continues feeling short of breath. Nothing is helping. Simply talking seems to make it worse. No associated nausea vomiting. No specific chest pains. No fevers. No additional complaints. Home Medications Medication Instructions Recorded Confirmed Type Oxygen Home #1 ea 01/07/21 12/18/21 Rx albuterol sulfate 90 mcg/actuation 2 puff INHALATION QID PRN #18 gm 03/02/21 12/18/21 Rx aerosol inhaler (Ventolin HFA) buspirone 10 mg tablet 10 mg PO BID 04/24/21 12/18/21 History meloxicam 7.5 mg tablet 7.5 mg PO QPM #90 tab 05/07/21 12/18/21 Rx fluticasone propionate 110 2 puff INHALATION BID #12 g 06/28/21 12/18/21 Rx mcg/actuation HFA aerosol inhaler (Flovent HFA) albuterol sulfate 2.5 mg INHALATION QID PRN #270 ml 07/28/21 12/18/21 Rx trazodone 50 mg tablet 50 mg PO HS #90 tab 08/09/21 12/18/21 Rx umeclidinium 62.5 mcg-vilanterol 1 inh INHALATION QAM #60 ea 08/19/21 12/18/21 Rx 25 mcg/actuation powdr for inhalation (Anoro Ellipta) rosuvastatin 5 mg tablet 5 mg PO DAILY #90 tab 09/23/21 12/18/21 Rx lorazepam 1 mg tablet (Ativan) 1 mg PO DAILY PRN #30 tab 10/13/21 12/18/21 Rx gabapentin 300 mg capsule 300 mg PO TID #90 cap 12/02/21 12/18/21 Rx rivaroxaban 20 mg tablet (Xarelto) 20 mg PO HS #30 tab 12/13/21 12/18/21 Rx Allergies Allergy/AdvReac Type Severity Reaction Status Date / Time No Known Allergies Allergy Verified 12/18/21 17:39 Past Med/Surg History Medical History Acute exacerbation of chronic obstructive pulmonary disease Acute respiratory distress Anxiety and depression COPD (chronic obstructive pulmonary disease) History of pulmonary embolism x 2. 1st following shoulder replacement 2018, 2nd 3-4 mo ago -- unk etiology -- on xarelto On home O2 2 LPM PRN Osteoarthritis Osteoporosis Rib pain Sarcoidosis follows with Flo Albright PA-C Scoliosis Thoracic back pain Surgical History H/O hysterectomy for benign disease (10/02/12) History of hip replacement Left PREETI: 09/11/17: SAB x 1 at L3-L4 at [facility] History of right shoulder replacement Hx of colonoscopy Hx of elbow surgery RIGHT Family History Father Myocardial infarction Brother Anxiety COPD (chronic obstructive pulmonary disease) Daughter Anxiety Sister Breast cancer Other Diabetes Kidney disease No family history of adverse response to anesthesia Denies family history of Ovarian cancer Prostate cancer Colorectal cancer Social History Smoking Status: Current every day smoker Tobacco Type: Cigarettes Age Started Using Tobacco: 22; packs per day: 0.75; Cigarettes Per Day: 20; Second Hand Exposure: Yes; Hx Alcohol Use: No Hx Substance Use: No Preferred Language: Thai Communication Ability: Effective Visual Impairment: No Limitations Hearing Ability: Normal Chief Analytics Officer Required: No Beliefs That Will Affect Care: None marital status: Current Living Situation: Spouse current occupational status: retired and disabled 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 How many Children do You have: 2 Feels Safe at Home: Yes Childhood Exposure to Second-Hand Smoke: No Dental Care, Regularly: No Physical Activity Frequency: Does not Exercise Seatbelt Use: always Sunscreen Use: No (is not out in the sun much ) Assistive Devices: Oxygen - Continuous Review of Systems A total of 10 systems reviewed and were otherwise negative Physical Exam Vital Signs Vital Signs - 24 hr 12/18/21 17:00 12/18/21 17:09 12/18/21 17:12 Temperature 37.9 C H Temperature Source Oral Pulse Rate 122 H 115 H Pulse Rate from SpO2 Sensor 123 H Pulse Rhythm Regular Pulse Strength Normal Respiratory Rate 41 H 24 40 H Respiratory Effort / Characteristics Spontaneous Labored Short of Breath Accessory Muscle Use Labored Retracting Short of Breath Tripoding Respiratory Depth Shallow Respiratory Pattern Agonal Blood Pressure 145/81 H Blood Pressure Mean 102 Pulse Oximetry 98 97 97 Oxygen Delivery Method Nasal Cannula Nasal Cannula Oxygen Flow Rate 6 6 Sepsis Recent Fever Within 48 Hours No Sepsis New/Unexplained Change in Mental Status N/A Sepsis Action Taken by Nursing Physician Notified 12/18/21 17:30 12/18/21 18:00 12/18/21 18:03 Temperature Temperature Source Pulse Rate 110 H 115 H 115 H Pulse Rate from SpO2 Sensor 111 H 117 H 120 H Pulse Rhythm Pulse Strength Respiratory Rate 37 H 36 H 37 H Respiratory Effort / Characteristics Respiratory Depth Respiratory Pattern Blood Pressure 128/91 Blood Pressure Mean 103 Pulse Oximetry 97 98 97 Oxygen Delivery Method Oxygen Flow Rate Sepsis Recent Fever Within 48 Hours Sepsis New/Unexplained Change in Mental Status Sepsis Action Taken by Nursing CONSTITUTIONAL/VITAL SIGNS: Reviewed / noted above. GENERAL: Non-toxic in appearance. INTEGUMENTARY: Warm, dry, and [place]. HEAD: Normocephalic. EYES: without scleral icterus or trauma. ENT/OROPHARYNX: clear and moist. LYMPHADENOPATHY/NECK: Is supple without lymphadenopathy or meningismus. RESPIRATORY: Inspiratory and expiratory wheezing as well as diminished breath sounds to auscultation bilaterally. Mild to moderate increased work of breathing. CARDIOVASCULAR: Regular rate and rhythm. GI/ABDOMEN: Soft and nontender. No organomegaly or pulsatile mass. EXTREMITIES: Warm and well perfused. BACK: No CVA tenderness. NEUROLOGICAL: Intact without focal deficits. PSYCHIATRIC: normal affect. MUSCULOSKELETAL: Normally developed with good muscle tone. TRIAGE NURSING DOCUMENTATION REVIEWED. Course Administered Medications Azithromycin 500 mg/ Dextrose 255 mls @ 127.5 mls/hr IV NOW STA Stop: 12/18/21 19:20 Last Admin: 12/18/21 18:40 Dose: 127.5 mls/hr Documented by: [id number] Discontinued Medications Albuterol (Albut/Ipratrop 3mg/0.5mg Neb 3 Ml Vial) Confirm Administered Dose 12 ml .ROUTE .STK-MED ONE Stop: 12/18/21 17:06 Last Admin: 12/18/21 17:24 Dose: 12 ml Documented by: [id number] Albuterol (Albut/Ipratrop 3mg/0.5mg Neb 3 Ml Vial) 12 ml INH ONE STA Stop: 12/18/21 17:11 Last Admin: 12/18/21 17:24 Dose: 12 ml Documented by: [id number] Dexamethasone Sodium Phosphate (DexamethasonePf 10 Mg/Ml Vial) 10 mg IV NOW ONE Stop: 12/18/21 17:11 Last Admin: 12/18/21 17:18 Dose: 10 mg Documented by: [id number] Sodium Chloride (Nss) 500 mls @ 999 mls/hr IV .Q31M STA Stop: 12/18/21 17:40 Last Admin: 12/18/21 17:24 Dose: 999 mls/hr Documented by: [id number] Magnesium Sulfate/Dextrose (Magnesium Sulfate / D5w) 1 gm in 100 mls @ 100 m ls/hr IV NOW STA Stop: 12/18/21 18:11 Last Admin: 12/18/21 17:19 Dose: 100 mls/hr Documented by: [id number] Ceftriaxone Sodium (Rocephin) 2,000 mg in 70 mls @ 140 mls/hr IV NOW STA Stop: 12/18/21 17:50 Last Admin: 12/18/21 17:59 Dose: 140 mls/hr Documented by: [id number] Lorazepam (Lorazepam 2 Mg/1 Ml Vial) 1 mg IV NOW STA Stop: 12/18/21 17:11 Last Admin: 12/18/21 17:18 Dose: 1 mg Documented by: [id number] Medical Decision Making Differential Diagnosis The differential was considered includes acute myocardial infarction, acute coronary syndrome, myocarditis, pericarditis, pericardial effusions /tamponad, esophageal perforation, pulmonary embolism, pneumonia, pneumothorax, cardiomyopathy, congestive heart, anemia , COPD/asthma exacerbation. Medical Records Attestation: I reviewed the patient's medical records. Home Medications Current Medication List: was personally reviewed by me Laboratory Data Attestation: I reviewed the patient's lab results. Result diagrams: 12/18/21 17:10 12/18/21 17:10 Lab Results 12/18/21 12/18/21 12/18/21 Range/Units 17:00 17:04 17:10 WBC 12.14 H (4.8-10.8) K/uL RBC 4.93 (4.2-5.4) M/uL Hgb 16.7 H (12.0-16.0) g/dL Hct 48.4 H (37-47) % MCV 98.2 (80-100) fL MCH 33.9 (25-34) pg MCHC 34.5 (32-36) g/dL RDW Std Deviation 52.4 H (36.4-46.3) fL RDW Coeff of [place] 14.5 (11.5-14.5) % Plt Count 165 (130-400) K/uL MPV 10.3 (7.4-10.4) fL Immature Gran % (Auto) 0.2 % Neut % (Auto) 77.4 % Lymph % (Auto) 13.2 % [place] % (Auto) 6.8 % Eos % (Auto) 2.1 % Baso % (Auto) 0.3 % Neut # (Auto) 9.39 H (1.4-6.5) K/uL Lymph # (Auto) 1.60 (1.2-3.4) K/uL [place] # (Auto) 0.83 H (0.11-0.59) K/uL Eos # (Auto) 0.26 (0-0.5) K/uL Baso # (Auto) 0.04 (0-0.2) K/uL Immature Gran # (Auto) 0.02 (0.00-0.02) K/uL PT (9.0-12.0) Seconds INR (0.9-1.1) APTT (21.0-31.0) Seconds PTT Ratio VBG pH (7.36-7.41) VBG pCO2 (38-50) mmHg VBG pO2 mmHg VBG HCO3 mmol/L VBG O2 Saturation % VBG Base Excess mEq/L Barometric Pressure mm/Hg Sodium (136-145) mmol/L Potassium (3.5-5.1) mmol/L Chloride (98-107) mmol/L Carbon Dioxide (21-32) mmol/L Anion Gap (3-11) BUN (6-23) mg/dl Creatinine (0.6-1.2) mg/dl Est Cr Clr Drug Dosing ml/min Est GFR ( Amer) ml/min Est GFR (Non-Af Amer) ml/min BUN/Creatinine Ratio (10-20) Glucose (70-99(Fasting)) mg/dl Lactate (0.4-2.0) mmol/L Calcium (8.5-10.1) mg/dl Magnesium (1.7-2.4) mg/dl Total Bilirubin (0.2-1.0) mg/dl AST (13-39) U/L ALT (7-52) U/L Alkaline Phosphatase (34-104) U/L Troponin I High Sens (0-14) pg/ml Total Protein (6.0-8.3) gm/dl Albumin (3.4-5.0) gm/dl Globulin (2.5-4.0) gm/dl Albumin/Globulin Ratio (0.9-2) Procalcitonin 0.06 (0-0.5) ng/ml SARS-CoV-2 (PCR) NEGATIVE (Negative) Influenza Type A (PCR) Negative (Neg) Influenza Type B (PCR) Negative (Neg) RSV (RT-PCR) Negative (Neg) 12/18/21 12/18/21 12/18/21 Range/Units 17:10 17:11 17:11 WBC (4.8-10.8) K/uL RBC (4.2-5.4) M/uL Hgb (12.0-16.0) g/dL Hct (37-47) % MCV (80-100) fL MCH (25-34) pg MCHC (32-36) g/dL RDW Std Deviation (36.4-46.3) fL RDW Coeff of [place] (11.5-14.5) % Plt Count (130-400) K/uL MPV (7.4-10.4) fL Immature Gran % (Auto) % Neut % (Auto) % Lymph % (Auto) % [place] % (Auto) % Eos % (Auto) % Baso % (Auto) % Neut # (Auto) (1.4-6.5) K/uL Lymph # (Auto) (1.2-3.4) K/uL [place] # (Auto) (0.11-0.59) K/uL Eos # (Auto) (0-0.5) K/uL Baso # (Auto) (0-0.2) K/uL Immature Gran # (Auto) (0.00-0.02) K/uL PT 10.2 (9.0-12.0) Seconds INR 1.0 (0.9-1.1) APTT 30.0 (21.0-31.0) Seconds PTT Ratio 1.1 VBG pH 7.40 (7.36-7.41) VBG pCO2 41 (38-50) mmHg VBG pO2 34 mmHg VBG HCO3 25 mmol/L VBG O2 Saturation 71.2 % VBG Base Excess -0.2 mEq/L Barometric Pressure 730.0 mm/Hg Sodium 138 (136-145) mmol/L Potassium 4.1 (3.5-5.1) mmol/L Chloride 102 (98-107) mmol/L Carbon Dioxide 29 (21-32) mmol/L Anion Gap 7 (3-11) BUN 10 (6-23) mg/dl Creatinine 0.95 (0.6-1.2) mg/dl Est Cr Clr Drug Dosing 55.1 ml/min Est GFR ( Amer) 71.8 ml/min Est GFR (Non-Af Amer) 62.0 ml/min BUN/Creatinine Ratio 10.5 (10-20) Glucose 103 H (70-99(Fasting)) mg/dl Lactate (0.4-2.0) mmol/L Calcium 9.7 (8.5-10.1) mg/dl Magnesium 2.1 (1.7-2.4) mg/dl Total Bilirubin 1.1 H (0.2-1.0) mg/dl AST 19 (13-39) U/L ALT 18 (7-52) U/L Alkaline Phosphatase 98 (34-104) U/L Troponin I High Sens 6.6 (0-14) pg/ml Total Protein 7.8 (6.0-8.3) gm/dl Albumin 4.6 (3.4-5.0) gm/dl Globulin 3.2 (2.5-4.0) gm/dl Albumin/Globulin Ratio 1.4 (0.9-2) Procalcitonin (0-0.5) ng/ml SARS-CoV-2 (PCR) (Negative) Influenza Type A (PCR) (Neg) Influenza Type B (PCR) (Neg) RSV (RT-PCR) (Neg) 12/18/21 Range/Units 17:47 WBC (4.8-10.8) K/uL RBC (4.2-5.4) M/uL Hgb (12.0-16.0) g/dL Hct (37-47) % MCV (80-100) fL MCH (25-34) pg MCHC (32-36) g/dL RDW Std Deviation (36.4-46.3) fL RDW Coeff of [place] (11.5-14.5) % Plt Count (130-400) K/uL MPV (7.4-10.4) fL Immature Gran % (Auto) % Neut % (Auto) % Lymph % (Auto) % [place] % (Auto) % Eos % (Auto) % Baso % (Auto) % Neut # (Auto) (1.4-6.5) K/uL Lymph # (Auto) (1.2-3.4) K/uL [place] # (Auto) (0.11-0.59) K/uL Eos # (Auto) (0-0.5) K/uL Baso # (Auto) (0-0.2) K/uL Immature Gran # (Auto) (0.00-0.02) K/uL PT (9.0-12.0) Seconds INR (0.9-1.1) APTT (21.0-31.0) Seconds PTT Ratio VBG pH (7.36-7.41) VBG pCO2 (38-50) mmHg VBG pO2 mmHg VBG HCO3 mmol/L VBG O2 Saturation % VBG Base Excess mEq/L Barometric Pressure mm/Hg Sodium (136-145) mmol/L Potassium (3.5-5.1) mmol/L Chloride (98-107) mmol/L Carbon Dioxide (21-32) mmol/L Anion Gap (3-11) BUN (6-23) mg/dl Creatinine (0.6-1.2) mg/dl Est Cr Clr Drug Dosing ml/min Est GFR ( Amer) ml/min Est GFR (Non-Af Amer) ml/min BUN/Creatinine Ratio (10-20) Glucose (70-99(Fasting)) mg/dl Lactate 2.2 H* (0.4-2.0) mmol/L Calcium (8.5-10.1) mg/dl Magnesium (1.7-2.4) mg/dl Total Bilirubin (0.2-1.0) mg/dl AST (13-39) U/L ALT (7-52) U/L Alkaline Phosphatase (34-104) U/L Troponin I High Sens (0-14) pg/ml Total Protein (6.0-8.3) gm/dl Albumin (3.4-5.0) gm/dl Globulin (2.5-4.0) gm/dl Albumin/Globulin Ratio (0.9-2) Procalcitonin (0-0.5) ng/ml SARS-CoV-2 (PCR) (Negative) Influenza Type A (PCR) (Neg) Influenza Type B (PCR) (Neg) RSV (RT-PCR) (Neg) Imaging Data Radiologist's Impression: Chest X-Ray 12/18/21 17:10 XR chest 1V portable CLINICAL HISTORY: Dyspnea COMPARISON STUDY: Chest radiograph April 23, 2021. Chest CT April 24, 2021. FINDINGS: Right shoulder arthroplasty is partially imaged. Old right-sided rib fractures incidentally noted. There is no pneumothorax or pleural effusion. Emphysema and upper lobe predominant fibrotic changes noted, as shown on prior CT. The appearance is unchanged. There are calcified mediastinal and bilateral hilar lymph nodes. Cardiomediastinal silhouette is stable. IMPRESSION: 1. No acute cardiopulmonary findings. 2. No change in appearance of the chest. Emphysema and upper lobe predominant fibrotic change. ACT 112: Negative or not required by law. Electronically signed by: Carlos Cunha M.D. 12/18/2021 5:41 PM ECG Data Attestation: I personally reviewed and interpreted this ECG as follows: Additional Comments: Twelve-lead EKG: Per my interpretation shows a sinus tach at a rate of 122. No ST elevation. No PVCs. Normal QTC. MDM Narrative 66-year-old female with a history of COPD and PE chronically on Xarelto presents with symptoms consistent with a COPD exacerbation with wheezing and shortness of breath. She uses 3 L of oxygen at home. She is requiring 6 L now. She does have some mild to moderate increased work of breathing. Vital signs are stable. Temperature is 37.9. Respiratory rate is elevated at 37. Heart rate is 115. Chest x-ray did not show an obvious pneumonia. COVID test and flu swabs are negative. The CBC shows mildly elevated white blood cell count. Chemistry panel was unremarkable. Lactic acid is slightly elevated. VBG shows a normal acid-base status and normal PCO2. The patient was treated with a 1 hour nebulizer treatment here. She was also given IV Decadron IV magnesium, IV fluids and some IV lorazepam for anxiety. She was empirically given IV a ntibiotics for her recent new productive cough for yellow sputum. She will be seen by the hospitalist for further evaluation and care. Impression & Plan Acute exacerbation of COPD with asthma, Acute bronchitis Discharge Plan Visit Data Chief Complaint: Shortness of Breath/Dyspnea Stated Complaint: Shortness of breath ED Provider: Kristian Stratton Discharge Problem: Acute exacerbation of COPD with asthma, Acute bronchitis Patient Disposition: Being Evaluated by Hospitalist Forms Stand Alone Forms: [facility] [employer] Prescriptions Prescriptions: No Action meloxicam 7.5 mg tablet 7.5 mg PO QPM Qty: 90 RF: 3 Flovent HFA 110 mcg/actuation HFA aerosol inhaler 2 puff inhalation BID Qty: 12 RF: 5 trazodone 50 mg tablet 50 mg PO HS Qty: 90 RF: 3 Anoro Ellipta 62.5-25 mcg/actuation blister with device 1 inh inhalation QAM Qty: 60 RF: 5 rosuvastatin 5 mg tablet 5 mg PO DAILY Qty: 90 RF: 3 lorazepam [Ativan] 1 mg tablet 1 mg PO DAILY PRN (Reason: Anxiety) Qty: 30 RF: 3 gabapentin 300 mg capsule 300 mg PO TID Qty: 90 RF: 5 Xarelto 20 mg tablet 20 mg PO HS Qty: 30 RF: 5 albuterol sulfate [Ventolin HFA] 90 mcg/actuation HFA aerosol inhaler 2 puff inhalation QID PRN (Reason: Shortness Of Breath Or Wheezing) Qty: 18 RF: 11 (DME) Oxygen Home Liters Per Minute See Rx Instructions .MEDSUPPLY Qty: 1 RF: 5 albuterol sulfate 2.5 mg /3 mL (0.083 %) solution for nebulization 2.5 mg INHALATION QID PRN (Reason: Shortness Of Breath Or Wheezing) Qty: 270 RF: 5 buspirone 10 mg tablet 10 mg PO BID RF: 0 Referrals Referrals: Nichole Farfan CRNP [Primary Care Provider] -
[2021-12-18 17:27] LABS: Base Excess VBG -0.2 mEq/L; Oxygen Saturation VBG 71.2 %; pH VBG 7.4 (7.36-7.41)
[2021-12-18 17:27] LABS: Hematocrit (blood only) 48.4 % (37-47); Hemoglobin 16.7 g/dL (12.0-16.0); Mean Corpuscular Hemoglobin 33.9 pg (25-34); Mean Corpuscular Hgb Conc 34.5 g/dL (32-36); Mean Corpuscular Volume 98.2 fL (80-100); Mean Platelet Volume 10.3 fL (7.4-10.4); Platelet Count 165 K/uL (130-400); RDW Coefficient of Variation 14.5 % (11.5-14.5); RDW Standard Deviation 52.4 fL (36.4-46.3); Red Blood Count 4.93 M/uL (4.2-5.4); White Blood Count 12.14 K/uL (4.8-10.8)
[2021-12-18 17:37] LABS: Partial Thromboplastin Ratio 1.1; Prothrombin Time 10.2 Seconds (9.0-12.0)
--- NOTE | 2021-12-18 17:43 | XRay Report ---
XR chest 1V portable CLINICAL HISTORY: Dyspnea COMPARISON STUDY: Chest radiograph April 23, 2021. Chest CT April 24, 2021. FINDINGS: Right shoulder arthroplasty is partially imaged. Old right-sided rib fractures incidentally noted. There is no pneumothorax or pleural effusion. Emphysema and upper lobe predominant fibrotic c hanges noted, as shown on prior CT. The appearance is unchanged. There are calcified mediastinal and bilateral hilar lymph nodes. Cardiomediastinal silhouette is stable. IMPRESSION: 1. No acute cardiopulmonary findings. 2. No change in appearance of the chest. Emphysema and upper lobe predominant fibrotic change. ACT 112: Negative or not required by law. Electronically signed by: Carlos Cunha M.D. 12/18/2021 5:41 PM
[2021-12-18 17:51] LABS: Albumin Globulin Ratio 1.4 (0.9-2); Albumin Level 4.6 gm/dl (3.4-5.0); BUN Creatinine Ratio 10.5 (10-20); Bilirubin,Total 1.1 mg/dl (0.2-1.0); Calcium 9.7 mg/dl (8.5-10.1); Creatinine Clr Calc Pharmacy 55.1 ml/min; Est GFR (African American) 71.8 ml/min; Globulin 3.2 gm/dl (2.5-4.0); Magnesium 2.1 mg/dl (1.7-2.4); Potassium 4.1 mmol/L (3.5-5.1); Total Protein 7.8 gm/dl (6.0-8.3)
[2021-12-18 17:54] LABS: Troponin I High Sensitivity 6.6 pg/ml (0-14)
[2021-12-18 18:29] LABS: Basophils # (auto) 0.04 K/uL (0-0.2); Basophils % (auto) 0.3 %; Eosinophils # (auto) 0.26 K/uL (0-0.5); Eosinophils % (auto) 2.1 %; Immature Granulocytes # (auto) 0.02 K/uL (0.00-0.02); Immature Granulocytes % (auto) 0.2 %; Lymphocytes % (auto) 13.2 %; Monocytes # (auto) 0.83 K/uL (0.11-0.59); Monocytes % (auto) 6.8 %; Neutrophils # (auto) 9.39 K/uL (1.4-6.5); Neutrophils % (auto) 77.4 %
[2021-12-18 18:41] LABS: Influenza A virus by PCR Negative (Neg); Influenza B virus by PCR Negative (Neg); RSV by PCR Negative (Neg); SARS CoV2 RNA(COVID-19) InHosp NEGATIVE (Negative)
[2021-12-18] MEDS ORDERED: methylPREDNISolone 125 MG/2 ML VIAL IV STA (18:42)
[2021-12-18] MEDS ORDERED: BUDESONIDE 0.5 MG/2 ML VIAL (PULMICORT) NEB ONE (19:07)
--- NOTE | 2021-12-18 19:22 | History & Physical Report ---
Date of Service December 18, 2021 Assessment & Plan (1) Acute exacerbation of COPD with asthma: Plan: Patient with tachypnea, severe wheezing, tachycardia and use of accessory muslces - she reports increase dyspnea and yellow to white secretion production- she is on home oxygen - VBG in the EMD without hypercarbia- however poor air movment and inspiratory expiratory wheezing - BiPAP 10/5 now titrate for comfort and adequate VT - hope to ease her work of breathing and support - 10mg Decadron given by EMD- 60mg of Methylprednisolone given now - 1GM Magnesium IV - Cotninue with Methylprednisolone 40mg IV q6 - Azithromycin 500mg IV now- then 250mg IV daily - Pulmicort nebulizer 0.5mg now- then BID - Scheduled Albuterol q4 hours nebulizer- can wean down if improves on BiPAP - Continue Umeclidinium/Vilanterol- or equivalent daily - If continues to not improve +/- performist - Avoid further sedating medications that effect her repiratory effort- if sedation needed while on BiPAP can consider Precedex as she will be in ICU- but currently improved on BiPAP - She is on Fluticasone and Anoro at home- evaluate for Trelegy ? 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 Patient comes to the hospital for increase dyspnea for the past 2-3 days with no relief on her home therapy of nebulizers and inhalers and home oxygen and increased sputum production. She is also complaining of rib pain bilaterally. She continues to smoke. In the EMD she had routine labs performed, VBG done and CXR. She was given 10mg of Decadron IV, Azithromycin, 1 GM of Magnesium, and 1 hour long nebulizer. Her VBG is not hypercarbic, however the patient remains with poor air movement throughout and inspiratory expiratory wheezing as well as using her abdominal muscles to breathe. She was given Ativan and this has made her somewhat somnolent, have encouraged her with deep inspiration and she is more awake at this time, but remains with poor pulmonary exam. Will give her an additional 60mg of Methylprednisolone now, Pulmicort nebulizer, and attempt BiPAP. She remains tachypneic in the 30s with tachycardia to 120s. She has not attempted BiPAP before. She reports that she has not missed any doses of her Xarelto which she is on for PE from 2020. COVID/FLU/RSV test on admission is: NEGATIVE Allergies Allergy/AdvReac Type Severity Reaction Status Date / Time No Known Allergies Allergy Verified 12/18/21 17:39 Home Medications Medication Instructions Recorded Confirmed Type Oxygen Home #1 ea 01/07/21 12/18/21 Rx albuterol sulfate 90 mcg/actuation 2 puff INHALATION QID PRN #18 gm 03/02/21 12/18/21 Rx aerosol inhaler (Ventolin HFA) buspirone 10 mg tablet 10 mg PO BID 04/24/21 12/18/21 History meloxicam 7.5 mg tablet 7.5 mg PO QPM #90 tab 05/07/21 12/18/21 Rx fluticasone propionate 110 2 puff INHALATION BID #12 g 06/28/21 12/18/21 Rx mcg/actuation HFA aerosol inhaler (Flovent HFA) albuterol sulfate 2.5 mg INHALATION QID PRN #270 ml 07/28/21 12/18/21 Rx trazodone 50 mg tablet 50 mg PO HS #90 tab 08/09/21 12/18/21 Rx umeclidinium 62.5 mcg-vilanterol 1 inh INHALATION QAM #60 ea 08/19/21 12/18/21 Rx 25 mcg/actuation powdr for inhalation (Anoro Ellipta) lorazepam 1 mg tablet (Ativan) 1 mg PO DAILY PRN #30 tab 10/13/21 12/18/21 Rx gabapentin 300 mg capsule 300 mg PO TID #90 cap 12/02/21 12/18/21 Rx rivaroxaban 20 mg tablet (Xarelto) 20 mg PO HS #30 tab 12/13/21 12/18/21 Rx Past Med/Surg History Medical History (Updated 12/18/21 @ 19:33 by CLAY Kapoor) Acute exacerbation of chronic obstructive pulmonary disease Acute respiratory distress Anxiety and depression COPD (chronic obstructive pulmonary disease) History of pulmonary embolism x 2. 1st following shoulder replacement 2018, 2nd 3-4 mo ago -- unk etiology -- on xarelto On home O2 2 LPM PRN Osteoarthritis Osteoporosis Rib pain Sarcoidosis follows with Flo Albright PA-C Scoliosis Thoracic back pain Surgical History H/O hysterectomy for benign disease (10/02/12) History of hip replacement Left PREETI: 09/11/17: SAB x 1 at L3-L4 at [facility] History of right shoulder replacement Hx of colonoscopy Hx of elbow surgery RIGHT Family History Father Myocardial infarction Brother Anxiety COPD (chronic obstructive pulmonary disease) Daughter Anxiety Sister Breast cancer Other Diabetes Kidney disease No family history of adverse response to anesthesia Denies family history of Ovarian cancer Prostate cancer Colorectal cancer Social History Smoking Status: Heavy tobacco smoker Tobacco Type: Cigarettes Age Started Using Tobacco: 22; packs per day: 0.75; Cigarettes Per Day: 30-40; Second Hand Exposure: Yes; Do You Dip or Chew Tobacco: No; Tobacco Cessation Education Requested by Patient: No Hx Alcohol Use: No Hx Substance Use: No Preferred Language: Malay Communication Ability: Effective Visual Impairment: No Limitations Hearing Ability: Normal Multiple Resaw Operator Required: No Beliefs That Will Affect Care: None marital status: Current Living Situation: Spouse current occupational status: retired and disabled 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 How many Children do You have: 2 Other Information That Helps Us Care for You: No Feels Safe at Home: Yes Safety Concerns: Feels Safe At This Time Childhood Exposure to Second-Hand Smoke: No Dental Care, Regularly: No Physical Activity Frequency: Does not Exercise Seatbelt Use: always Sunscreen Use: No (is not out in the sun much ) Assistive Devices: BiPap and Oxygen - Continuous Review of Systems Review of Systems: REVIEW OF SYSTEMS: Constitutional: No fever, sweats or chills Eyes: No diplopia, no worsening or blurred vision ENT: normal hearing, no trouble swallowing Respiratory: (+) cough, sputum, dyspnea at rest or on exertion Cardiovascular: (+) pain along her lower ribs, No chest pain, tightness or palpitations Abdomen: No pain, nausea, vomiting, diarrhea or constipation Musculoskeletal: No joint pain, calf pain, swelling Neurologic: No weakness, numbness/tingling, or balance problems Psychiatric: (+) anxiety or depression Skin: No rash or itch Physical Exam Constitutional: PHYSICAL EXAM: General: somnolent, alert, abdominal breathing Head: Normocephalic, atraumatic ENT: PERRL, EOMI, no pharyngeal exudate, mucous membranes moist Neuro: AAO x 3, speech clear and appropriate, strength intact bilaterally 5/5, sensation intact and equal all extremities and dermatomes, no pronator drift Chest: equal rise and fall of the chest, using accessory muscles to breath with prolonged forceable expiration, inspiratory and expiratory wheeze throughout poor air movement Cardiac: Regular rate and rhythm, telemetry reviewed- ST 120s, skin warm dry, cap refill <3 seconds, peripheral pulses +2 no JVD, no murmur, no edema GI: NABS x 4 quadrants, soft, nontender to palpation, no rebound, guarding or tenderness : Spontaneously voiding, no pain, no CVA tenderness, Extremities: Normal inspection, no peripheral edema or erythema, calfs nontender to palpation Psych: Normal mood and affect Skin: no rash or erythema Results & Data Results & Data ([facility]) Vital Signs (Past 12 Hours) Vital Signs Temp Pulse Resp BP Pulse Ox 12/18/21 19:00 121 H 31 H 110/74 95 12/18/21 18:03 115 H 37 H 128/91 97 12/18/21 18:00 115 H 36 H 98 12/18/21 17:30 110 H 37 H 97 12/18/21 17:12 37.9 C H 115 H 40 H 145/81 H 97 12/18/21 17:09 24 97 12/18/21 17:00 122 H 41 H 98 Laboratory Results Laboratory Results - last 24 hr 12/18/21 12/18/21 12/18/21 17:00 17:04 17:10 WBC 12.14 H RBC 4.93 Hgb 16.7 H Hct 48.4 H MCV 98.2 MCH 33.9 MCHC 34.5 RDW Std Deviation 52.4 H RDW Coeff of Perry 14.5 Plt Count 165 MPV 10.3 Immature Gran % (Auto) 0.2 Neut % (Auto) 77.4 Lymph % (Auto) 13.2 Baker % (Auto) 6.8 Eos % (Auto) 2.1 Baso % (Auto) 0.3 Neut # (Auto) 9.39 H Lymph # (Auto) 1.60 Baker # (Auto) 0.83 H Eos # (Auto) 0.26 Baso # (Auto) 0.04 Immature Gran # (Auto) 0.02 PT INR APTT PTT Ratio VBG pH VBG pCO2 VBG pO2 VBG HCO3 VBG O2 Saturation VBG Base Excess Barometric Pressure Sodium Potassium Chloride Carbon Dioxide Anion Gap BUN Creatinine Est Cr Clr Drug Dosing Est GFR ( Amer) Est GFR (Non-Af Amer) BUN/Creatinine Ratio Glucose Lactate Calcium Magnesium Total Bilirubin AST ALT Alkaline Phosphatase Troponin I High Sens Total Protein Albumin Globulin Albumin/Globulin Ratio Procalcitonin 0.06 SARS-CoV-2 (PCR) NEGATIVE Influenza Type A (PCR) Negative Influenza Type B (PCR) Negative RSV (RT-PCR) Negative 12/18/21 12/18/21 12/18/21 17:10 17:11 17:11 WBC RBC Hgb Hct MCV MCH MCHC RDW Std Deviation RDW Coeff of Perry Plt Count MPV Immature Gran % (Auto) Neut % (Auto) Lymph % (Auto) Baker % (Auto) Eos % (Auto) Baso % (Auto) Neut # (Auto) Lymph # (Auto) Baker # (Auto) Eos # (Auto) Baso # (Auto) Immature Gran # (Auto) PT 10.2 INR 1.0 APTT 30.0 PTT Ratio 1.1 VBG pH 7.40 VBG pCO2 41 VBG pO2 34 VBG HCO3 25 VBG O2 Saturation 71.2 VBG Base Excess -0.2 Barometric Pressure 730.0 Sodium 138 Potassium 4.1 Chloride 102 Carbon Dioxide 29 Anion Gap 7 BUN 10 Creatinine 0.95 Est Cr Clr Drug Dosing 55.1 Est GFR ( Amer) 71.8 Est GFR (Non-Af Amer) 62.0 BUN/Creatinine Ratio 10.5 Glucose 103 H Lactate Calcium 9.7 Magnesium 2.1 Total Bilirubin 1.1 H AST 19 ALT 18 Alkaline Phosphatase 98 Troponin I High Sens 6.6 Total Protein 7.8 Albumin 4.6 Globulin 3.2 Albumin/Globulin Ratio 1.4 Procalcitonin SARS-CoV-2 (PCR) Influenza Type A (PCR) Influenza Type B (PCR) RSV (RT-PCR) 12/18/21 17:47 WBC RBC Hgb Hct MCV MCH MCHC RDW Std Deviation RDW Coeff of Perry Plt Count MPV Immature Gran % (Auto) Neut % (Auto) Lymph % (Auto) Baker % (Auto) Eos % (Auto) Baso % (Auto) Neut # (Auto) Lymph # (Auto) Baker # (Auto) Eos # (Auto) Baso # (Auto) Immature Gran # (Auto) PT INR APTT PTT Ratio VBG pH VBG pCO2 VBG pO2 VBG HCO3 VBG O2 Saturation VBG Base Excess Barometric Pressure Sodium Potassium Chloride Carbon Dioxide Anion Gap BUN Creatinine Est Cr Clr Drug Dosing Est GFR ( Amer) Est GFR (Non-Af Amer) BUN/Creatinine Ratio Glucose Lactate 2.2 H* Calcium Magnesium Total Bilirubin AST ALT Alkaline Phosphatase Troponin I High Sens Total Protein Albumin Globulin Albumin/Globulin Ratio Procalcitonin SARS-CoV-2 (PCR) Influenza Type A (PCR) Influenza Type B (PCR) RSV (RT-PCR) Diagnostic Findings Chest X-Ray 12/18/21 17:10 XR chest 1V portable CLINICAL HISTORY: Dyspnea COMPARISON STUDY: Chest radiograph April 23, 2021. Chest CT April 24, 2021. FINDINGS: Right shoulder arthroplasty is partially imaged. Old right-sided rib fractures incidentally noted. There is no pneumothorax or pleural effusion. Emphysema and upper lobe predominant fibrotic changes noted, as shown on prior CT. The appearance is unchanged. There are calcified mediastinal and bilateral hilar lymph nodes. Cardiomediastinal silhouette is stable. IMPRESSION: 1. No acute cardiopulmonary findings. 2. No change in appearance of the chest. Emphysema and upper lobe predominant fibrotic change. ACT 112: Negative or not required by law. Electronically signed by: Carlos Cunha M.D. 12/18/2021 5:41 PM Medications Administered Discontinued Medications Albuterol (Albut/Ipratrop 3mg/0.5mg Neb 3 Ml Vial) Confirm Administered Dose 12 ml .ROUTE .STK-MED ONE Stop: 12/18/21 17:06 Last Admin: 12/18/21 17:24 Dose: 12 ml Documented by: [id number] Albuterol (Albut/Ipratrop 3mg/0.5mg Neb 3 Ml Vial) 12 ml INH ONE STA Stop: 12/18/21 17:11 Last Admin: 12/18/21 17:24 Dose: 12 ml Documented by: [id number] Dexamethasone Sodium Phosphate (DexamethasonePf 10 Mg/Ml Vial) 10 mg IV NOW ONE Stop: 12/18/21 17:11 Last Admin: 12/18/21 17:18 Dose: 10 mg Documented by: [id number] Sodium Chloride (Nss) 500 mls @ 999 mls/hr IV .Q31M STA Stop: 12/18/21 17:40 Last Infusion: 12/18/21 19:15 Dose: 0 mls/hr Documented by: [id number] Admin: 12/18/21 17:24 Dose: 999 mls/hr Documented by: [id number] Magnesium Sulfate/Dextrose (Magnesium Sulfate / D5w) 1 gm in 100 mls @ 100 mls/hr IV NOW STA Stop: 12/18/21 18:11 Last Infusion: 12/18/21 19:15 Dose: 0 mls/hr Documented by: [id number] Admin: 12/18/21 17:19 Dose: 100 mls/hr Documented by: [id number] Ceftriaxone Sodium (Rocephin) 2,000 mg in 70 mls @ 140 mls/hr IV NOW STA Stop: 12/18/21 17:50 Last Infusion: 12/18/21 19:15 Dose: 0 mls/hr Documented by: [id number] Admin: 12/18/21 17:59 Dose: 140 mls/hr Documented by: [id number] Azithromycin 500 mg/ Dextrose 255 mls @ 127.5 mls/hr IV NOW STA Stop: 12/18/21 19:20 Last Admin: 12/18/21 18:40 Dose: 127.5 mls/hr Documented by: [id number] Lorazepam (Lorazepam 2 Mg/1 Ml Vial) 1 mg IV NOW STA Stop: 12/18/21 17:11 Last Admin: 12/18/21 17:18 Dose: 1 mg Documented by: [id number] Methylprednisolone (Methylprednisolone 125 Mg/2 Ml Vial) 60 mg IV NOW STA Stop: 12/18/21 18:43 Last Admin: 12/18/21 19:25 Dose: 60 mg Documented by: [id number] Home Medications Oxygen Home #1 ea 01/07/21 [Rx Confirmed 12/18/21] albuterol sulfate 90 mcg/actuation aerosol inhaler (Ventolin HFA) 2 puff INHALATION QID PRN #18 gm 03/02/21 [Rx Confirmed 12/18/21] buspirone 10 mg tablet 10 mg PO BID 04/24/21 [History Confirmed 12/18/21] meloxicam 7.5 mg tablet 7.5 mg PO QPM #90 tab 05/07/21 [Rx Confirmed 12/18/21] fluticasone propionate 110 mcg/actuation HFA aerosol inhaler (Flovent HFA) 2 puff INHALATION BID #12 g 06/28/21 [Rx Confirmed 12/18/21] albuterol sulfate 2.5 mg INHALATION QID PRN #270 ml 07/28/21 [Rx Confirmed 12/18/21] trazodone 50 mg tablet 50 mg PO HS #90 tab 08/09/21 [Rx Confirmed 12/18/21] umeclidinium 62.5 mcg-vilanterol 25 mcg/actuation powdr for inhalation (Anoro Ellipta) 1 inh INHALATION QAM #60 ea 08/19/21 [Rx Confirmed 12/18/21] rosuvastatin 5 mg tablet 5 mg PO DAILY #90 tab 09/23/21 [Rx Confirmed 12/18/21] lorazepam 1 mg tablet (Ativan) 1 mg PO DAILY PRN #30 tab 10/13/21 [Rx Confirmed 12/18/21] gabapentin 300 mg capsule 300 mg PO TID #90 cap 12/02/21 [Rx Confirmed 12/18/21] rivaroxaban 20 mg tablet (Xarelto) 20 mg PO HS #30 tab 12/13/21 [Rx Confirmed 12/18/21] Active Medications Budesonide (Budesonide 0.5 Mg/2 Ml Vial (Pulmicort)) 0.5 mg NEB ONE ONE Stop: 12/18/21 19:08 ECG Additional Comments: Sinus tachycardia Right axis deviation Septal infarct , age undetermined Abnormal ECG When compared with ECG of 24-APR-2021 01:56, Septal infarct is now Present Code Status & VTE Plan Code Status CODE: FULL VTE: SCDS, Xarelto 20mg PO daily VTE Prophylaxis Plan VTE Prophylaxis will be ordered: Yes Critical Care Time 45 min critical care time - BiPAP application - multiple re-check for respiratory status - steroid re-dosing - CXR independently reviewed Supervising Physician Co-Signing Physician Notes Patient was seen and examined independently I discussed the case with Frederick WILLIAMSON I reviewed pertinent past medical social family history and also the plan of care and agree with the plan of care. Pt here and extremely tight, respiratory distress accessory muscle use, improved on Bipap Lungs are wheezing and prolongued resp phase Bipap support, iv steroids, azithromycin and inhaled bronchodialators icu overnight Any exceptions will be noted below PG Care Time/CCT Total # of Minutes Spent Total Time Spent with Patient: Total time spent is greater than 50% in coordination of care (as documented) at patient's floor/unit and/or counseling patient: Coding Level of Care Code 76304 Initial Inpt Care Lvl 3 Diagnoses Acute exacerbation of COPD with asthma J44.1; J45.901 Rib pain R07.81 Anxiety F41.9 Tobacco use disorder F17.200 Sarcoidosis D86.9 History of pulmonary embolism Z86.711 CHF (congestive heart failure) I50.9
--- NOTE | 2021-12-18 20:42 | Critical Care Consultation ---
Date of Consultation December 18, 2021 Assessment & Plan (1) Acute exacerbation of COPD with asthma: Impression: 66-year-old female with severe COPD presents to the ICU with COPD exacerbation requiring BiPAP. Neuro - [facility] ICU: Negative Anxiety and depressioncontinue home med regimen Cardiac - CHFhistory of diastolic dysfunction. Currently euvolemic -No indication for diuresis at this time. Monitor -Continuous monitor on telemetry. Currently sinus tach Respiratory - Acute COPD exacerbationpatient exhibiting respiratory failure with hypercapnia. Currently tachypneic and displaying tripoding. Lungs with significant wheezing in all khan. -History of sarcoidosis and tobacco abuse. Patient continues to smoke daily despite severe pulmonary disease and encouragement for abstaining. -Chest x-ray without evidence of infiltrate or pulmonary congestion. Cannot rule out possible pneumonia at this time and currently being treated with ceftriaxone/azithromycin -Underwent hour-long neb in the ED and was given dexamethasone. Continue with scheduled albuterol and Solu-Medrol. Continue Pulmicort twice daily. Continue on meclodium/vilanterol -Did recommend BiPAP overnight however patient has been noncompliant. In further discussion she refuses intubation even if needed. Highly encourage patient to wear BiPAP, currently set to 10/5 -She does report lower left-sided rib pain which is being an ongoing for the past 2 years. Continue with lidocaine patch -Consider pulmonary consult. Will monitor in ICU overnight, although if patient is unwilling to be intubated she can likely be downgraded to PCU GI - Heart healthy diet RENAL/LYTES - Creatinine stable, monitor electrolytes and replete as indicated with routine BMPs Lactic acidosisimproving. Monitor - Strict I's and O's ENDO - ICU hyperglycemia protocol HEME - H&H stable, monitor routine CBCs ID - Continue empiric ceftriaxone and azithromycin for now We will attempt to obtain sputum culture Procalcitonin negative, no leukocytosis, currently afebrile. Trend fever curve LINES/IV ACCESS - Peripheral IVs DVT PROPHYLAXIS - History of PEcontinue Xarelto CODE STATUSpatient expressed wishes with further conversation that she would not want CPR or resuscitative measures in the event of cardiac arrest. She refuses mechanical ventilation under any circumstance. Thank you for allowing us to participate in the care of this patient. Please refer to my attending physician's documentation for any further recommendations. (2) CHF (congestive heart failure): (3) History of pulmonary embolism: (4) Rib pain: (5) Hyperlipidemia: (6) Thoracic radiculopathy: (7) Anxiety: (8) Depression: (9) Tobacco use disorder: (10) Insomnia: History of Present Illness Attending Physician: Mirza Pereira MD History of Present Illness Patient is a 66-year-old female with history of COPD (continues to actively smoke), sarcoidosis with VATS, pulmonary embolism, osteoporosis, DJD, spinal radiculopathy and rib pain. She presented to the emergency department earlier this evening with increased shortness of breath ongoing for the past 2 to 3 days without relief from her nebulizers and inhalers at home. She is on home oxygen at baseline. She reports increased sputum production with yellow phlegm. She was noted to be in significant respiratory distress in the ED and displayed audible wheezing. She was given IV Decadron, 1 g magnesium, and an hour-long neb. Her VBG was not hypercarbic although patient was severely tachypneic. Initially patient had said that she would want to be intubated if needed and plan was to admit to ICU. However, under further discussion patient reports that she would not want to be intubated under any circumstance and would not want resuscitative measures in the event of cardiac arrest. She was initially on BiPAP in the emergency department but has since refused. Patient does state that she will attempt to wear BiPAP overnight after she eats. Her chest x-ray showed severe emphysema and fibrosis although no evidence of infiltrate or pulmonary congestion. On arrival to the ICU the patient is alert and oriented and continues to display tripoding, tachypnea, and labored breathing. She does have audible wheezing. She currently reports shortness of breath and rib pain on her left lower ribs. She reports a productive cough with yellow phlegm. She denies any headache, syncope, sore throat, fevers, recent illness, chest pain or palpitations, nausea vomiting or diarrhea, abdominal pain, swelling in hands or feet, numbness or tingling or weakness. Patient now admitted to ICU for further management at this time. Allergies Allergy/AdvReac Type Severity Reaction Status Date / Time No Known Allergies Allergy Verified 12/18/21 17:39 Home Medications Medication Instructions Recorded Confirmed Type Oxygen Home #1 ea 01/07/21 12/18/21 Rx albuterol sulfate 90 mcg/actuation 2 puff INHALATION QID PRN #18 gm 03/02/21 12/18/21 Rx aerosol inhaler (Ventolin HFA) buspirone 10 mg tablet 10 mg PO BID 04/24/21 12/18/21 History meloxicam 7.5 mg tablet 7.5 mg PO QPM #90 tab 05/07/21 12/18/21 Rx fluticasone propionate 110 2 puff INHALATION BID #12 g 06/28/21 12/18/21 Rx mcg/actuation HFA aerosol inhaler (Flovent HFA) albuterol sulfate 2.5 mg INHALATION QID PRN #270 ml 07/28/21 12/18/21 Rx trazodone 50 mg tablet 50 mg PO HS #90 tab 08/09/21 12/18/21 Rx umeclidinium 62.5 mcg-vilanterol 1 inh INHALATION QAM #60 ea 08/19/21 12/18/21 Rx 25 mcg/actuation powdr for inhalation (Anoro Ellipta) lorazepam 1 mg tablet (Ativan) 1 mg PO DAILY PRN #30 tab 10/13/21 12/18/21 Rx gabapentin 300 mg capsule 300 mg PO TID #90 cap 12/02/21 12/18/21 Rx rivaroxaban 20 mg tablet (Xarelto) 20 mg PO HS #30 tab 12/13/21 12/18/21 Rx Patient History Medical History (Updated 12/18/21 @ 19:33 by CLAY Kapoor) Acute exacerbation of chronic obstructive pulmonary disease Acute respiratory distress Anxiety and depression COPD (chronic obstructive pulmonary disease) History of pulmonary embolism x 2. 1st following shoulder replacement 2018, 2nd 3-4 mo ago -- unk etiology -- on xarelto On home O2 2 LPM PRN Osteoarthritis Osteoporosis Rib pain Sarcoidosis follows with Flo Albright PA-C Scoliosis Thoracic back pain Surgical History H/O hysterectomy for benign disease (10/02/12) History of hip replacement Left PREETI: 09/11/17: SAB x 1 at L3-L4 at [facility] History of right shoulder replacement Hx of colonoscopy Hx of elbow surgery RIGHT Family History Father Myocardial infarction Brother Anxiety COPD (chronic obstructive pulmonary disease) Daughter Anxiety Sister Breast cancer Other Diabetes Kidney disease No family history of adverse response to anesthesia Denies family history of Ovarian cancer Prostate cancer Colorectal cancer Social History Smoking Status: Heavy tobacco smoker Tobacco Type: Cigarettes Age Started Using Tobacco: 22; packs per day: 0.75; Cigarettes Per Day: 30-40; Second Hand Exposure: Yes; Do You Dip or Chew Tobacco: No; Tobacco Cessation Education Requested by Patient: No Hx Alcohol Use: No Hx Substance Use: No Preferred Language: Fijian Communication Ability: Effective Visual Impairment: No Limitations Hearing Ability: Normal Urology Teacher Required: No Beliefs That Will Affect Care: None marital status: Current Living Situation: Spouse current occupational status: retired and disabled 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 How many Children do You have: 2 Other Information That Helps Us Care for You: No Feels Safe at Home: Yes Safety Concerns: Feels Safe At This Time Childhood Exposure to Second-Hand Smoke: No Dental Care, Regularly: No Physical Activity Frequency: Does not Exercise Seatbelt Use: always Sunscreen Use: No (is not out in the sun much ) Assistive Devices: BiPap and Oxygen - Continuous Review of Systems Review of Systems: All systems reviewed & are unremarkable except as noted in HPI & below Physical Exam Constitutional: WD/WN, vitals as above Eyes: PERRL, conjunctivae normal, anicteric sclerae ENMT: external ear and nose normal, oropharynx normal Neck: trachea midline, no thyromegaly Respiratory: + labored breathing, + uses accessory muscles, + cough, + tachypneic, + audible wheezes, + tripod positioning and symmetric chest movement; + not able to speak in complete sentence and no stridor Auscultation: + wheezes (In all lung khan) Cardiovascular: Rate/Rhythm: regular rate and + tachycardic Heart Sounds: normal S1 and normal S2; no murmur Vessels: no JVD Extremities: normal capillary refill; no edema Gastrointestinal (Abdomen): normal bowel sounds, soft, nontender, no hepatosplenomegaly Skin: no rashes, warm and dry Neurologic: PERRL, EOMI, accommodation nl, no face palsy, no dysarthria Psychiatric: A+Ox3, euthymic affect Results & Data Results & Data ([facility]) Vital Signs (Past 12 Hours) Vital Signs Temp Pulse Pulse Resp BP Pulse Ox 12/18/21 20:00 115 H 29 H 105/63 97 12/18/21 19:31 119 H 32 H 102/59 L 95 12/18/21 19:20 122 H 122 H 35 H 97 12/18/21 19:00 121 H 31 H 110/74 95 12/18/21 18:03 115 H 37 H 128/91 97 12/18/21 18:00 115 H 36 H 98 12/18/21 17:30 110 H 37 H 97 12/18/21 17:12 37.9 C H 115 H 40 H 145/81 H 97 12/18/21 17:09 24 97 12/18/21 17:00 122 H 41 H 98 Coding Level of Care Code 25983 Inpt Consult Level 4 Diagnoses CHF (congestive heart failure) I50.9 History of pulmonary embolism Z86.711 Acute exacerbation of COPD with asthma J44.1; J45.901 Rib pain R07.81 Hyperlipidemia E78.5 Thoracic radiculopathy M54.14 Anxiety F41.9 Depression F32.9 Tobacco use disorder F17.200 Insomnia G47.00
[2021-12-18] MEDS: RIVAROXABAN 20 MG TAB PO SCH (21:47)
[2021-12-18] MEDS: busPIRone 5 MG TAB PO SCH (21:47)
[2021-12-18] MEDS: GABAPENTIN 300 MG CAP PO SCH (21:47)
[2021-12-18] MEDS: LIDOCAINE 5% 1 PATCH TD SCH (21:48)
[2021-12-18] MEDS ORDERED: LORazepam 1 MG TAB PO STA (21:55)
[2021-12-18] MEDS ORDERED: traZODone HCL 50 MG TAB PO ONE (21:56)
[2021-12-18] MEDS: BUDESONIDE 0.5 MG/2 ML VIAL (PULMICORT) NEB SCH (22:13)
[2021-12-18] MEDS: ALBUTEROL 0.5% NEB SOLN 2.5 MG/0.5 ML VIAL NEB SCH (23:04)
[2021-12-19] MEDS: methylPREDNISolone 40 MG in SYRINGE 0 ML IV SCH ×4 (02:03→20:38)
[2021-12-19] MEDS: ALBUTEROL 0.5% NEB SOLN 2.5 MG/0.5 ML VIAL NEB SCH ×6 (03:23→23:22)
[2021-12-19 06:15] LABS: Hematocrit (blood only) 44.3 % (37-47); Hemoglobin 14.7 g/dL (12.0-16.0); Immature Granulocytes # (auto) 0.01 K/uL (0.00-0.02); Immature Granulocytes % (auto) 0.2 %; Lymphocytes # (auto) 0.43 K/uL (1.2-3.4); Lymphocytes % (auto) 7.5 %; Mean Corpuscular Hemoglobin 32.4 pg (25-34); Mean Corpuscular Hgb Conc 33.2 g/dL (32-36); Mean Corpuscular Volume 97.6 fL (80-100); Mean Platelet Volume 10.1 fL (7.4-10.4); Monocytes # (auto) 0.06 K/uL (0.11-0.59); Neutrophils # (auto) 5.22 K/uL (1.4-6.5); Neutrophils % (auto) 91.3 %; Platelet Count 150 K/uL (130-400); RDW Coefficient of Variation 14.8 % (11.5-14.5); RDW Standard Deviation 52.9 fL (36.4-46.3); Red Blood Count 4.54 M/uL (4.2-5.4); White Blood Count 5.72 K/uL (4.8-10.8)
[2021-12-19 06:30] LABS: BUN Creatinine Ratio 15.1 (10-20); Calcium 8.8 mg/dl (8.5-10.1); Creatinine Clr Calc Pharmacy 49.3 ml/min; Est GFR (African American) 62.9 ml/min; Est GFR (Non-African American) 54.3 ml/min; Magnesium 2.3 mg/dl (1.7-2.4); Potassium 4.5 mmol/L (3.5-5.1)
[2021-12-19] MEDS: ACETAMINOPHEN 325 MG TAB PO PRN ×2 (06:41→12:42)
[2021-12-19] MEDS: GABAPENTIN 300 MG CAP PO SCH ×3 (07:31→20:38)
[2021-12-19] MEDS: busPIRone 5 MG TAB PO SCH ×2 (07:31→20:38)
[2021-12-19] MEDS: ROSUVASTATIN CALCIUM 5 MG TAB PO SCH (07:31)
[2021-12-19] MEDS: UMECLIDINIUM/VILANTEROL 62.5/25MCG 7 PUFFS/INHALER INH SCH (07:31)
[2021-12-19] MEDS: BUDESONIDE 0.5 MG/2 ML VIAL (PULMICORT) NEB SCH ×2 (07:50→19:42)
[2021-12-19] MEDS ORDERED: ROSUVASTATIN CALCIUM 5 MG TAB PO SCH (09:00)
[2021-12-19] MEDS ORDERED: AZITHROMYCIN 250 MG in PEDIATRIC DILUENT 0 ML IV SCH (09:00)
--- NOTE | 2021-12-19 10:17 | Electrocardiogram Report ---
Test Reason : Blood Pressure : / mmHG Vent. Rate : 122 BPM Atrial Rate : 122 BPM P-R Int : 128 ms QRS Dur : 066 ms QT Int : 272 ms P-R-T Axes : 060 154 078 degrees QTc Int : 387 ms Poor data quality, interpretation may be adversely affected Sinus tachycardia Right axis deviation Abnormal ECG When compared with ECG of 24-APR-2021 01:56, No significant change was found Confirmed by Zana Strauss ([id number]) on 12/19/2021 10:17:29 AM Referred By: REFERRED SELF Confirmed By:Zana Strauss
--- NOTE | 2021-12-19 13:36 | Critical Care Progress Note ---
Date of Service December 19, 2021 Assessment & Plan (1) Acute exacerbation of COPD with asthma: Plan: Impression: 66-year-old female with severe COPD presents to the ICU with COPD exacerbation requiring BiPAP. Neuro - [facility] ICU: Negative Anxiety and depressioncontinue home med regimen Cardiac - CHFhistory of diastolic dysfunction. Currently euvolemic -No indication for diuresis at this time. Monitor -Continuous monitor on telemetry. Currently sinus tach Respiratory - Acute COPD exacerbationpatient exhibiting respiratory failure with hypercapnia. -Continue current treatment: Steroids IV antibiotics, nebulizers -She does report lower left-sided rib pain which is being an ongoing for the past 2 years. Continue with lidocaine patch GI - Heart healthy diet RENAL/LYTES - Creatinine stable, monitor electrolytes and replete as indicated with routine BMPs Lactic acidosisimproving. Monitor - Strict I's and O's ENDO - ICU hyperglycemia protocol HEME - H&H stable, monitor routine CBCs ID - Continue empiric ceftriaxone and azithromycin for now We will attempt to obtain sputum culture LINES/IV ACCESS - Peripheral IVs DVT PROPHYLAXIS - History of PEcontinue Xarelto CODE STATUSlevel 1 (2) CHF (congestive heart failure): (3) History of pulmonary embolism: (4) Rib pain: (5) Hyperlipidemia: (6) Thoracic radiculopathy: (7) Anxiety: (8) Depression: (9) Tobacco use disorder: (10) Insomnia: Admission and Anticipated Discharge Date Admission Date: December 18, 2021 Subjective Had extensive discussion with patient at bedside. Further clarified goals of care, she would want aggressive measures in event of cardiac arrest as well as intubation in event of respiratory insufficiency. Her daughter has invited her to go to a beach vacation, she is extremely scared because she is afraid of having a COPD exacerbation while on vacation. She has persistent dyspnea and gets tired with standing at a stove and preparing meals, that she sounds congested clinically consistent with COPD Gold class D. 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 She has decided to quit smoking when she leaves the hospital. Physical Exam Physical Exam: General: Alert. nontoxic. Skin: Warm, dry, Head: Atraumatic Ears, nose, mouth and throat: airway patent Cardiovascular: Normal peripheral perfusion Respiratory: no respiratory distress, audible wheezes, speaks in full sentences. Gastrointestinal: Non distended Musculoskeletal: No deformity Results & Data Results & Data ([facility]) Vital Signs (Past 12 Hours) Vital Signs Temp Pulse Pulse Resp BP Pulse Ox 12/19/21 13:00 92 H 24 103/74 96 12/19/21 12:45 96 H 16 112/61 94 12/19/21 12:00 101 H 31 H 116/69 92 12/19/21 11:39 98 H 12/19/21 11:01 104 H 25 H 111/89 92 12/19/21 11:00 104 H 74 29 H 91 12/19/21 10:00 98 H 22 108/73 95 12/19/21 09:00 103 H 22 111/75 91 12/19/21 08:15 101 H 22 117/70 90 12/19/21 08:00 94 H 24 89 L 12/19/21 07:51 99 H 12/19/21 07:50 96 H 20 95 12/19/21 07:45 36.8 C 94 H 26 H 129/76 84 L 12/19/21 07:00 94 H 23 103/65 93 12/19/21 06:45 93 H 23 94 12/19/21 06:01 99 H 27 H 117/92 95 12/19/21 05:01 102 H 30 H 110/72 95 12/19/21 04:49 105 H 38 H 93 12/19/21 04:08 98 H 25 H 95 12/19/21 04:00 37 C 98 H 26 H 131/75 93 12/19/21 03:00 109 H 22 112/73 92 12/19/21 02:00 97 H 24 126/72 92 Critical Care Results & Data Vital Signs (Past 12 Hours) Vital Signs Temp Pulse Pulse Resp BP Pulse Ox 12/19/21 13:00 92 H 24 103/74 96 12/19/21 12:45 96 H 16 112/61 94 12/19/21 12:00 101 H 31 H 116/69 92 12/19/21 11:39 98 H 12/19/21 11:01 104 H 25 H 111/89 92 12/19/21 11:00 104 H 74 29 H 91 12/19/21 10:00 98 H 22 108/73 95 12/19/21 09:00 103 H 22 111/75 91 12/19/21 08:15 101 H 22 117/70 90 12/19/21 08:00 94 H 24 89 L 12/19/21 07:51 99 H 12/19/21 07:50 96 H 20 95 12/19/21 07:45 36.8 C 94 H 26 H 129/76 84 L 12/19/21 07:00 94 H 23 103/65 93 12/19/21 06:45 93 H 23 94 12/19/21 06:01 99 H 27 H 117/92 95 12/19/21 05:01 102 H 30 H 110/72 95 12/19/21 04:49 105 H 38 H 93 12/19/21 04:08 98 H 25 H 95 12/19/21 04:00 37 C 98 H 26 H 131/75 93 12/19/21 03:00 109 H 22 112/73 92 Lab & Micro Results (Past 24 Hours) RBC 4.54 M/uL (4.2-5.4) 12/19/21 WBC 5.72 K/uL (4.8-10.8) 12/19/21 Hgb 14.7 g/dL (12.0-16.0) 12/19/21 Hct 44.3 % (37-47) 12/19/21 MCV 97.6 fL (80-100) 12/19/21 MCH 32.4 pg (25-34) 12/19/21 MCHC 33.2 g/dL (32-36) 12/19/21 RDW Standard Deviation 52.9 fL (36.4-46.3) H 12/19/21 RDW Coefficient of Variation 14.8 % (11.5-14.5) H 12/19/21 Plt Count 150 K/uL (130-400) 12/19/21 MPV 10.1 fL (7.4-10.4) 12/19/21 Neutrophils (%) (Auto) 91.3 % 12/19/21 Lymphocytes (%) (Auto) 7.5 % 12/19/21 Monocytes # (Auto) 0.06 K/uL (0.11-0.59) L 12/19/21 Eosinophils # (Auto) 0.00 K/uL (0-0.5) 12/19/21 Immature Granulocyte % (Auto) 0.2 % 12/19/21 Neutrophils # (Auto) 5.22 K/uL (1.4-6.5) 12/19/21 Lymphocytes # (Auto) 0.43 K/uL (1.2-3.4) L 12/19/21 Monocytes # (Auto) 0.06 K/uL (0.11-0.59) L 12/19/21 Eosinophils # (Auto) 0.00 K/uL (0-0.5) 12/19/21 Basophils # (Auto) 0.00 K/uL (0-0.2) 12/19/21 Immature Granulocyte # (Auto) 0.01 K/uL (0.00-0.02) 12/19/21 Na 135 mmol/L (136-145) L 12/19/21 K 4.5 mmol/L (3.5-5.1) 12/19/21 Cl 102 mmol/L (98-107) 12/19/21 CO2 23 mmol/L (21-32) 12/19/21 Anion Gap 10 (3-11) 12/19/21 BUN 16 mg/dl (6-23) 12/19/21 Creatinine 1.06 mg/dl (0.6-1.2) 12/19/21 Estimated GFR ( Amer) 62.9 ml/min 12/19/21 Estimated GFR (Non-Af Amer) 54.3 ml/min 12/19/21 BUN/Creatinine Ratio 15.1 (10-20) 12/19/21 Glu 175 mg/dl (70-99(Fasting)) H 12/19/21 Ca 8.8 mg/dl (8.5-10.1) 12/19/21 Total Bilirubin 1.1 mg/dl (0.2-1.0) H 12/18/21 AST 19 U/L (13-39) 12/18/21 ALT 18 U/L (7-52) 12/18/21 Alkaline Phosphatase 98 U/L (34-104) 12/18/21 TP 7.8 gm/dl (6.0-8.3) 12/18/21 Albumin 4.6 gm/dl (3.4-5.0) 12/18/21 Globulin 3.2 gm/dl (2.5-4.0) 12/18/21 Albumin/Globulin Ratio 1.4 (0.9-2) 12/18/21 Mg 2.3 mg/dl (1.7-2.4) 12/19/21 05:45 12/19/21 Calcium Level 8.8 mg/dl (8.5-10.1) 12/19/21 05:45 12/19/21 Prothromb Time International Ratio 1.0 (0.9-1.1) 12/18/21 17:11 12/18/21 Venous Blood pH 7.40 (7.36-7.41) 12/18/21 17:11 12/18/21 Venous Blood Partial Pressure CO2 41 mmHg (38-50) 12/18/21 17:11 12/18/21 Venous Blood Partial Pressure O2 34 mmHg 12/18/21 17:11 12/18/21 Venous Blood HCO3 25 mmol/L 12/18/21 17:11 12/18/21 Venous Blood Base Excess -0.2 mEq/L 12/18/21 17:11 12/18/21 Venous Blood Oxygen Saturation 71.2 % 12/18/21 17:11 12/18/21 Blood Gas Barometric Pressure 730.0 mm/Hg 12/18/21 17:11 12/18/21 Blood Gas Barometric Pressure 730.0 mm/Hg 12/18/21 17:11 12/18/21 Diagnostic Findings (Past 24 Hours) Chest X-Ray 12/18/21 17:10 XR chest 1V portable CLINICAL HISTORY: Dyspnea COMPARISON STUDY: Chest radiograph April 23, 2021. Chest CT April 24, 2021. FINDINGS: Right shoulder arthroplasty is partially imaged. Old right-sided rib fractures incidentally noted. There is no pneumothorax or pleural effusion. Emphysema and upper lobe predominant fibrotic changes noted, as shown on prior CT. The appearance is unchanged. There are calcified mediastinal and bilateral hilar lymph nodes. Cardiomediastinal silhouette is stable. IMPRESSION: 1. No acute cardiopulmonary findings. 2. No change in appearance of the chest. Emphysema and upper lobe predominant fibrotic change. ACT 112: Negative or not required by law. Electronically signed by: Carlos Cunha M.D. 12/18/2021 5:41 PM I & O Totals 24 Hours 06/18/22 06/19/22 06/20/22 06:59 06:59 06:59 Intake Total 1425 / 1425 Output Total 650 / 650 Balance 775 / 775 Cumulative 12/18/21 16:34 thru 12/19/21 06:27 Intake Total 1425 Output Total 650 Balance 775 RT Ventilator Mngmt (Last Documented) Ventilator Ordered Settings Respiratory Rate 24 12/19/21 13:00 Fraction of Inspired Oxygen 40 12/19/21 04:49 Ventilator - PT Measurements Respiratory Rate 24 Coding Level of Care Code Critical Care ea addt'l 30 min Diagnoses Acute exacerbation of COPD with asthma J44.1; J45.901 CHF (congestive heart failure) I50.9 History of pulmonary embolism Z86.711 Rib pain R07.81 Hyperlipidemia E78.5 Thoracic radiculopathy M54.14 Anxiety F41.9 Depression F32.9 Tobacco use disorder F17.200 Insomnia G47.00 Time Spent (min) 85
[2021-12-19] MEDS ORDERED: ALPRAZolam 0.5 MG TABLET PO STA (15:00)
[2021-12-19] MEDS: RIVAROXABAN 20 MG TAB PO SCH (15:40)
[2021-12-19] MEDS: NICOTINE 21 MG/24 HR TDSY TD SCH (15:47)
[2021-12-19] MEDS: AZITHROMYCIN 250 MG in DEXTROSE 5% 250 ML IV SCH (20:35)
[2021-12-19] MEDS: cefTRIAXone SODIUM 2,000 MG in DEXTROSE 5% 50 ML IV SCH (20:36)
[2021-12-19] MEDS: LIDOCAINE 5% 1 PATCH TD SCH (20:39)
[2021-12-19] MEDS ORDERED: LORazepam 1 MG TAB PO PRN (21:12)
--- NOTE | 2021-12-19 21:31 | Hospitalist Progress Note ---
Date of Service December 19, 2021 Assessment & Plan (1) Acute exacerbation of COPD with asthma: Plan: Patient with tachypnea, severe wheezing, tachycardia and use of accessory muslces - she reports increase dyspnea and yellow to white secretion production- she is on home oxygen - VBG in the EMD without hypercarbia- however poor air movment and inspiratory expiratory wheezing - BiPAP 10/5 now titrate for comfort and adequate VT - hope to ease her work of breathing and support - 10mg Decadron given by EMD- 60mg of Methylprednisolone given now - 1GM Magnesium IV - Cotninue with Methylprednisolone 40mg IV q6 - Azithromycin 500mg IV now- then 250mg IV daily - Pulmicort nebulizer 0.5mg now- then BID - Scheduled Albuterol q4 hours nebulizer- can wean down if improves on BiPAP - Continue Umeclidinium/Vilanterol- or equivalent daily - If continues to not improve +/- performist - Avoid further sedating medications that effect her repiratory effort- if sedation needed while on BiPAP can consider Precedex as she will be in ICU- but currently improved on BiPAP - She is on Fluticasone and Anoro at home- evaluate for Trelegy ? PFTs completed 09/30/2020 with severe airflow obstruction with significant bronchodilation response On 12/19 Patient no longer on BIPAP. Now on nasal cannula. will transfer out of ICU. 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 Review of Systems Review of Systems: All systems reviewed & are unremarkable except as noted in HPI & below Physical Exam Physical Exam: General: somnolent, alert, abdominal breathing Head: Normocephalic, atraumatic ENT: PERRL, EOMI, no pharyngeal exudate, mucous membranes moist Neuro: AAO x 3, speech clear and appropriate, strength intact bilaterally 5/5, sensation intact and equal all extremities and dermatomes, no pronator drift Chest: equal rise and fall of the chest, using accessory muscles to breath with prolonged forceable expiration, inspiratory and expiratory wheeze throughout poor air movement Cardiac: Regular rate and rhythm, telemetry reviewed- ST 120s, skin warm dry, cap refill <3 seconds, peripheral pulses +2 no JVD, no murmur, no edema GI: NABS x 4 quadrants, soft, nontender to palpation, no rebound, guarding or tenderness : Spontaneously voiding, no pain, no CVA tenderness, Extremities: Normal inspection, no peripheral edema or erythema, calfs nontender to palpation Psych: Normal mood and affect Skin: no rash or erythema Results & Data Results & Data ([facility]) Vital Signs (Past 12 Hours) Vital Signs Pulse Pulse Resp BP Pulse Ox 12/19/21 19:42 888 H 24 97 12/19/21 17:00 94 H 20 106/65 94 12/19/21 16:30 99 H 20 92 12/19/21 16:00 95 H 29 H 125/68 91 12/19/21 15:42 92 H 12/19/21 15:40 99 H 23 125/82 95 12/19/21 15:24 96 H 20 95 12/19/21 15:01 102 H 27 H 119/86 90 12/19/21 15:00 101 H 23 87 L 12/19/21 14:01 104 H 26 H 155/111 H 96 12/19/21 14:00 103 H 21 89 L 12/19/21 13:33 102 H 30 H 124/65 91 12/19/21 13:00 92 H 24 103/74 96 12/19/21 12:45 96 H 16 112/61 94 12/19/21 12:00 101 H 31 H 116/69 92 12/19/21 11:39 98 H 12/19/21 11:01 104 H 25 H 111/89 92 12/19/21 11:00 104 H 74 29 H 91 12/19/21 10:00 98 H 22 108/73 95 PG Care Time/CCT Total # of Minutes Spent Total Time Spent with Patient: Total time spent is greater than 50% in coordination of care (as documented) at patient's floor/unit and/or counseling patient: Coding Level of Care Code 27344 Subseq Hosp Care Lvl 3 Diagnoses Acute exacerbation of COPD with asthma J44.1; J45.901 Rib pain R07.81 Anxiety F41.9 Tobacco use disorder F17.200 Sarcoidosis D86.9 History of pulmonary embolism Z86.711 CHF (congestive heart failure) I50.9 Time Spent (min) 35
[2021-12-19] MEDS: traZODone HCL 50 MG TAB PO SCH (22:32)
[2021-12-20] MEDS: methylPREDNISolone 40 MG in SYRINGE 0 ML IV SCH ×4 (02:17→20:43)
[2021-12-20] MEDS: ACETAMINOPHEN 325 MG TAB PO PRN ×4 (03:10→20:47)
[2021-12-20] MEDS: ALBUTEROL 0.5% NEB SOLN 2.5 MG/0.5 ML VIAL NEB SCH ×6 (03:55→22:19)
[2021-12-20 04:01] LABS: BUN Creatinine Ratio 24.8 (10-20); Calcium 9.1 mg/dl (8.5-10.1); Creatinine Clr Calc Pharmacy 49.8 ml/min; Est GFR (African American) 63.6 ml/min; Est GFR (Non-African American) 54.9 ml/min; Magnesium 2.6 mg/dl (1.7-2.4); Potassium 4.7 mmol/L (3.5-5.1)
[2021-12-20 04:21] LABS: Basophils # (auto) 0.01 K/uL (0-0.2); Basophils % (auto) 0.1 %; Immature Granulocytes # (auto) 0.05 K/uL (0.00-0.02); Immature Granulocytes % (auto) 0.3 %; Lymphocytes % (auto) 4.2 %; Mean Corpuscular Hemoglobin 32.3 pg (25-34); Mean Corpuscular Hgb Conc 33.3 g/dL (32-36); Mean Platelet Volume 10.3 fL (7.4-10.4); Neutrophils # (auto) 15.29 K/uL (1.4-6.5); Neutrophils % (auto) 92.4 %; Platelet Count 155 K/uL (130-400); RDW Coefficient of Variation 14.6 % (11.5-14.5); Red Blood Count 4.64 M/uL (4.2-5.4); White Blood Count 16.55 K/uL (4.8-10.8)
[2021-12-20] MEDS: BUDESONIDE 0.5 MG/2 ML VIAL (PULMICORT) NEB SCH ×2 (06:55→19:29)
[2021-12-20] MEDS: NICOTINE 21 MG/24 HR TDSY TD SCH (07:56)
[2021-12-20] MEDS: GABAPENTIN 300 MG CAP PO SCH ×3 (07:56→20:47)
[2021-12-20] MEDS: busPIRone 5 MG TAB PO SCH ×2 (07:56→20:47)
[2021-12-20] MEDS: ROSUVASTATIN CALCIUM 5 MG TAB PO SCH (07:56)
[2021-12-20] MEDS: UMECLIDINIUM/VILANTEROL 62.5/25MCG 7 PUFFS/INHALER INH SCH (07:56)
[2021-12-20] MEDS: RIVAROXABAN 20 MG TAB PO SCH (16:35)
[2021-12-20] MEDS: AZITHROMYCIN 250 MG in DEXTROSE 5% 250 ML IV SCH (18:22)
[2021-12-20] MEDS: cefTRIAXone SODIUM 2,000 MG in DEXTROSE 5% 50 ML IV SCH (20:42)
[2021-12-20] MEDS: LIDOCAINE 5% 1 PATCH TD SCH (20:48)
[2021-12-20] MEDS: traZODone HCL 50 MG TAB PO SCH (20:49)
--- NOTE | 2021-12-20 21:41 | Hospitalist Progress Note ---
Date of Service December 20, 2021 Assessment & Plan (1) Acute exacerbation of COPD with asthma: Plan: Patient with tachypnea, severe wheezing, tachycardia and use of accessory muslces - she reports increase dyspnea and yellow to white secretion production- she is on home oxygen - VBG in the EMD without hypercarbia- however poor air movment and inspiratory expiratory wheezing - BiPAP 10/5 now titrate for comfort and adequate VT - hope to ease her work of breathing and support - 10mg Decadron given by EMD- 60mg of Methylprednisolone given now - 1GM Magnesium IV - Cotninue with Methylprednisolone 40mg IV q6 - Azithromycin 500mg IV now- then 250mg IV daily - Pulmicort nebulizer 0.5mg now- then BID - Scheduled Albuterol q4 hours nebulizer- can wean down if improves on BiPAP - Continue Umeclidinium/Vilanterol- or equivalent daily - If continues to not improve +/- performist - Avoid further sedating medications that effect her repiratory effort- if sedation needed while on BiPAP can consider Precedex as she will be in ICU- but currently improved on BiPAP - She is on Fluticasone and Anoro at home- evaluate for Trelegy ? PFTs completed 09/30/2020 with severe airflow obstruction with significant bronchodilation response On 12/19 Patient no longer on BIPAP. Now on nasal cannula. will transfer out of ICU. On 12/20 she continues to be on 4 liters nasal cannula will continue ceftriaxone/azithromycin cont inhalers contnue steroids. will taper to daily in am. (2) Rib pain: Plan: Chronic- just had steroid injections with Chronic pain- over the past year worsening - Hx of VATS - Lidocaine patches added - gabapentin restarted 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 (6) History of pulmonary embolism: Plan: 2020 following surgery- continues on Xarelto 20mg PO daily - endorses not missing any doses (7) CHF (congestive heart failure): Plan: HFpEF- diastolic dysfunciton - no evidence of fluid overload on CXR - follow hemodynamics as above Admission and Anticipated Discharge Date Admission Date: December 18, 2021 Subjective Patient continues to feel sob. Patient is not at her baseline. She normally is at 2-3 liters at home. Review of Systems Review of Systems: All systems reviewed & are unremarkable except as noted in HPI & below Physical Exam Physical Exam: General: awake, alert Head: Normocephalic, atraumatic ENT: PERRL, EOMI, no pharyngeal exudate, mucous membranes moist Neuro: AAO x 3, speech clear and appropriate, strength intact bilaterally 5/5, sensation intact and equal all extremities and dermatomes, no pronator drift Chest: equal rise and fall of the chest, using accessory muscles to breath with prolonged forceable expiration, inspiratory and expiratory wheeze throughout poor air movement Cardiac: Regular rate and rhythm, telemetry reviewed- ST 120s, skin warm dry, cap refill <3 seconds, peripheral pulses +2 no JVD, no murmur, no edema GI: NABS x 4 quadrants, soft, nontender to palpation, no rebound, guarding or tenderness : Spontaneously voiding, no pain, no CVA tenderness, Extremities: Normal inspection, no peripheral edema or erythema, calfs nontender to palpation Psych: Normal mood and affect Skin: no rash or erythema Results & Data Results & Data ([facility]) Vital Signs (Past 12 Hours) Vital Signs Temp Pulse Pulse Pulse Resp BP Pulse Ox 12/20/21 19:30 87 20 94 12/20/21 18:13 85 12/20/21 18:11 36.5 C 83 18 120/78 96 12/20/21 17:30 36.5 C 98 H 26 H 132/81 93 12/20/21 15:35 100 H 12/20/21 14:38 78 18 95 12/20/21 13:25 126/86 12/20/21 12:00 100 H 12/20/21 11:42 12/20/21 11:09 72 18 98 12/20/21 10:00 100 H 27 H Pulse Ox Pulse Ox Pulse Ox 12/20/21 19:30 12/20/21 18:13 12/20/21 18:11 12/20/21 17:30 12/20/21 15:35 12/20/21 14:38 12/20/21 13:25 12/20/21 12:00 12/20/21 11:42 93 94 90 12/20/21 11:09 12/20/21 10:00 PG Care Time/CCT Total # of Minutes Spent Total Time Spent with Patient: Total time spent is greater than 50% in coordination of care (as documented) at patient's floor/unit and/or counseling patient: Coding Level of Care Code 85301 Subseq Hosp Care Lvl 3 Diagnoses Acute exacerbation of COPD with asthma J44.1; J45.901 Rib pain R07.81 Anxiety F41.9 Tobacco use disorder F17.200 Sarcoidosis D86.9 History of pulmonary embolism Z86.711 CHF (congestive heart failure) I50.9
[2021-12-21] MEDS: ALBUTEROL 0.5% NEB SOLN 2.5 MG/0.5 ML VIAL NEB SCH ×6 (02:39→22:45)
[2021-12-21 06:39] LABS: Base Excess VBG 5.8 mEq/L; HCO3 VBG 31 mmol/L; Oxygen Saturation VBG 98.5 %; PCO2 VBG 47 mmHg (38-50); PO2 VBG 86 mmHg; pH VBG 7.43 (7.36-7.41)
[2021-12-21 06:45] LABS: Basophils # (auto) 0.01 K/uL (0-0.2); Basophils % (auto) 0.1 %; Hematocrit (blood only) 43.4 % (37-47); Hemoglobin 14.2 g/dL (12.0-16.0); Immature Granulocytes # (auto) 0.05 K/uL (0.00-0.02); Immature Granulocytes % (auto) 0.3 %; Lymphocytes # (auto) 1.24 K/uL (1.2-3.4); Lymphocytes % (auto) 7.3 %; Mean Corpuscular Hemoglobin 31.7 pg (25-34); Mean Corpuscular Hgb Conc 32.7 g/dL (32-36); Mean Corpuscular Volume 96.9 fL (80-100); Mean Platelet Volume 10.3 fL (7.4-10.4); Monocytes # (auto) 0.74 K/uL (0.11-0.59); Monocytes % (auto) 4.3 %; Neutrophils # (auto) 14.98 K/uL (1.4-6.5); Platelet Count 193 K/uL (130-400); RDW Coefficient of Variation 14.8 % (11.5-14.5); RDW Standard Deviation 52.7 fL (36.4-46.3); Red Blood Count 4.48 M/uL (4.2-5.4); White Blood Count 17.02 K/uL (4.8-10.8)
[2021-12-21] MEDS: BUDESONIDE 0.5 MG/2 ML VIAL (PULMICORT) NEB SCH ×2 (07:05→18:58)
[2021-12-21 07:09] LABS: BUN Creatinine Ratio 33.8 (10-20); Calcium 9.2 mg/dl (8.5-10.1); Creatinine Clr Calc Pharmacy 65.4 ml/min; Est GFR (African American) 88.4 ml/min; Est GFR (Non-African American) 76.3 ml/min; Magnesium 2.5 mg/dl (1.7-2.4); Potassium 4.7 mmol/L (3.5-5.1)
[2021-12-21] MEDS: busPIRone 5 MG TAB PO SCH ×2 (08:49→21:06)
[2021-12-21] MEDS: methylPREDNISolone 40 MG in SYRINGE 0 ML IV SCH (08:49)
[2021-12-21] MEDS: GABAPENTIN 300 MG CAP PO SCH ×3 (08:50→21:06)
[2021-12-21] MEDS: NICOTINE 21 MG/24 HR TDSY TD SCH (08:50)
[2021-12-21] MEDS: UMECLIDINIUM/VILANTEROL 62.5/25MCG 7 PUFFS/INHALER INH SCH (08:50)
[2021-12-21] MEDS: ROSUVASTATIN CALCIUM 5 MG TAB PO SCH (08:51)
[2021-12-21] MEDS: ACETAMINOPHEN 325 MG TAB PO PRN ×2 (08:53→19:26)
[2021-12-21] MEDS ORDERED: DICLOFENAC SOD 1% GEL 100 GM TUBE EXT PRN (10:21)
[2021-12-21] MEDS: RIVAROXABAN 20 MG TAB PO SCH (16:37)
[2021-12-21] MEDS: AZITHROMYCIN 250 MG in DEXTROSE 5% 250 ML IV SCH (18:23)
[2021-12-21] MEDS: cefTRIAXone SODIUM 2,000 MG in DEXTROSE 5% 50 ML IV SCH (20:28)
--- NOTE | 2021-12-21 20:40 | Hospitalist Progress Note ---
Date of Service December 21, 2021 Assessment & Plan (1) Acute exacerbation of COPD with asthma: Plan: Patient with tachypnea, severe wheezing, tachycardia and use of accessory muslces - she reports increase dyspnea and yellow to white secretion production- she is on home oxygen - VBG in the EMD without hypercarbia- however poor air movment and inspiratory expiratory wheezing - BiPAP 10/5 now titrate for comfort and adequate VT - hope to ease her work of breathing and support - 10mg Decadron given by EMD- 60mg of Methylprednisolone given now - 1GM Magnesium IV - Cotninue with Methylprednisolone 40mg IV q6 - Azithromycin 500mg IV now- then 250mg IV daily - Pulmicort nebulizer 0.5mg now- then BID - Scheduled Albuterol q4 hours nebulizer- can wean down if improves on BiPAP - Continue Umeclidinium/Vilanterol- or equivalent daily - If continues to not improve +/- performist - Avoid further sedating medications that effect her repiratory effort- if sedation needed while on BiPAP can consider Precedex as she will be in ICU- but currently improved on BiPAP - She is on Fluticasone and Anoro at home- evaluate for Trelegy ? PFTs completed 09/30/2020 with severe airflow obstruction with significant bronchodilation response On 12/19 Patient no longer on BIPAP. Now on nasal cannula. will transfer out of ICU. On 12/20 she continues to be on 4 liters nasal cannula will continue ceftriaxone/azithromycin cont inhalers contnue steroids. will taper to daily in am. On 12/21 Tapered steroids to daily. continue ceftriaxone/azithromycin cont inhalers. continue steroids taper in AM (2) Rib pain: Plan: Chronic- just had steroid injections with Chronic pain- over the past year worsening - Hx of VATS - Lidocaine patches added - gabapentin restarted 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 (6) History of pulmonary embolism: Plan: 2020 following surgery- continues on Xarelto 20mg PO daily - endorses not missing any doses (7) CHF (congestive heart failure): Plan: HFpEF- diastolic dysfunciton - no evidence of fluid overload on CXR - follow hemodynamics as above Admission and Anticipated Discharge Date Admission Date: December 18, 2021 Subjective Patient reports still having shortness of breath, however her breathing is mildly better than the previous day. Review of Systems Review of Systems: All systems reviewed & are unremarkable except as noted in HPI & below Physical Exam Physical Exam: General: awake, alert Head: Normocephalic, atraumatic ENT: PERRL, EOMI, no pharyngeal exudate, mucous membranes moist Neuro: AAO x 3, speech clear and appropriate, strength intact bilaterally 5/5, sensation intact and equal all extremities and dermatomes, no pronator drift Chest: equal rise and fall of the chest, using accessory muscles to breath with prolonged forceable expiration, inspiratory and expiratory wheeze throughout poor air movement Cardiac: Regular rate and rhythm, telemetry reviewed- ST 120s, skin warm dry, cap refill <3 seconds, peripheral pulses +2 no JVD, no murmur, no edema GI: NABS x 4 quadrants, soft, nontender to palpation, no rebound, guarding or tenderness : Spontaneously voiding, no pain, no CVA tenderness, Extremities: Normal inspection, no peripheral edema or erythema, calfs nontender to palpation Psych: Normal mood and affect Skin: no rash or erythema Results & Data Results & Data ([facility]) Vital Signs (Past 12 Hours) Vital Signs Temp Pulse Pulse Pulse Resp BP Pulse Ox 12/21/21 19:28 36.4 C L 82 20 115/74 97 12/21/21 19:00 79 22 97 12/21/21 16:06 85 12/21/21 15:14 36.6 C 80 20 111/71 98 12/21/21 15:06 71 18 96 12/21/21 11:57 36.9 C 80 20 115/75 95 12/21/21 10:42 78 18 97 PG Care Time/CCT Total # of Minutes Spent Total Time Spent with Patient: Total time spent is greater than 50% in coordination of care (as documented) at patient's floor/unit and/or counseling patient: Coding Level of Care Code 76534 Subseq Hosp Care Lvl 2 Diagnoses Acute exacerbation of COPD with asthma J44.1; J45.901 Rib pain R07.81 Anxiety F41.9 Tobacco use disorder F17.200 Sarcoidosis D86.9 History of pulmonary embolism Z86.711 CHF (congestive heart failure) I50.9 Time Spent (min) 25
[2021-12-21] MEDS: traZODone HCL 50 MG TAB PO SCH (21:06)
[2021-12-21] MEDS: LIDOCAINE 5% 1 PATCH TD SCH (21:07)
[2021-12-22] MEDS: ALBUTEROL 0.5% NEB SOLN 2.5 MG/0.5 ML VIAL NEB SCH ×6 (02:46→22:30)
[2021-12-22 06:55] LABS: Hematocrit (blood only) 44.3 % (37-47); Mean Corpuscular Hemoglobin 33.2 pg (25-34); Mean Corpuscular Hgb Conc 33.9 g/dL (32-36); Mean Platelet Volume 10.1 fL (7.4-10.4); Platelet Count 158 K/uL (130-400); RDW Coefficient of Variation 14.7 % (11.5-14.5); RDW Standard Deviation 52.4 fL (36.4-46.3); Red Blood Count 4.52 M/uL (4.2-5.4); White Blood Count 8.14 K/uL (4.8-10.8)
[2021-12-22] MEDS: BUDESONIDE 0.5 MG/2 ML VIAL (PULMICORT) NEB SCH ×2 (06:56→18:57)
[2021-12-22 07:18] LABS: BUN Creatinine Ratio 31.2 (10-20); Creatinine Clr Calc Pharmacy 56.2 ml/min; Est GFR (African American) 73.7 ml/min; Est GFR (Non-African American) 63.6 ml/min; Potassium 4.2 mmol/L (3.5-5.1)
[2021-12-22 07:19] LABS: Calcium 8.8 mg/dl (8.5-10.1)
[2021-12-22] MEDS: GABAPENTIN 300 MG CAP PO SCH ×3 (08:11→20:45)
[2021-12-22] MEDS: NICOTINE 21 MG/24 HR TDSY TD SCH (08:11)
[2021-12-22] MEDS: methylPREDNISolone 40 MG in SYRINGE 0 ML IV SCH (08:11)
[2021-12-22] MEDS: busPIRone 5 MG TAB PO SCH ×2 (08:11→20:45)
[2021-12-22] MEDS: ROSUVASTATIN CALCIUM 5 MG TAB PO SCH (08:12)
[2021-12-22] MEDS: UMECLIDINIUM/VILANTEROL 62.5/25MCG 7 PUFFS/INHALER INH SCH (08:12)
[2021-12-22] MEDS: ACETAMINOPHEN 325 MG TAB PO PRN (13:47)
[2021-12-22] MEDS: RIVAROXABAN 20 MG TAB PO SCH (16:45)
--- NOTE | 2021-12-22 17:54 | Hospitalist Progress Note ---
Date of Service December 22, 2021 Assessment & Plan (1) Acute exacerbation of COPD with asthma: Plan: Patient with tachypnea, severe wheezing, tachycardia and use of accessory muslces - she reports increase dyspnea and yellow to white secretion production- she is on home oxygen - VBG in the EMD without hypercarbia- however poor air movment and inspiratory expiratory wheezing - BiPAP 10/5 now titrate for comfort and adequate VT - hope to ease her work of breathing and support - 10mg Decadron given by EMD- 60mg of Methylprednisolone given now - 1GM Magnesium IV - Cotninue with Methylprednisolone 40mg IV q6 - Azithromycin 500mg IV now- then 250mg IV daily - Pulmicort nebulizer 0.5mg now- then BID - Scheduled Albuterol q4 hours nebulizer- can wean down if improves on BiPAP - Continue Umeclidinium/Vilanterol- or equivalent daily - If continues to not improve +/- performist - Avoid further sedating medications that effect her repiratory effort- if sedation needed while on BiPAP can consider Precedex as she will be in ICU- but currently improved on BiPAP - She is on Fluticasone and Anoro at home- evaluate for Trelegy ? PFTs completed 09/30/2020 with severe airflow obstruction with significant bronchodilation response On 12/19 Patient no longer on BIPAP. Now on nasal cannula. will transfer out of ICU. On 12/20 she continues to be on 4 liters nasal cannula will continue ceftriaxone/azithromycin cont inhalers contnue steroids. will taper to daily in am. On 12/21 Tapered steroids to daily. continue ceftriaxone/azithromycin cont inhalers. continue steroids 12/22 Patient reports mild improvement. Still wheezing. Still above her baseline of 2 liters at home of oxygen. Ordered flutter valve. will obtain 2 view chest x ray in AM. check BNP, BMP in AM. (2) Rib pain: Plan: Chronic- just had steroid injections with Chronic pain- over the past year worsening - Hx of VATS - Lidocaine patches added - gabapentin restarted -PRN voltaren gell placed. 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 (6) History of pulmonary embolism: Plan: 2020 following surgery- continues on Xarelto 20mg PO daily - endorses not missing any doses (7) CHF (congestive heart failure): Plan: HFpEF- diastolic dysfunciton - no evidence of fluid overload on CXR - follow hemodynamics as above Admission and Anticipated Discharge Date Admission Date: December 18, 2021 Subjective Patient was very anxious this AM. Patient asked for her lorazepam which had been held earlier in her hospital stay due to her respiratory condition Patient seen in the afternoon, her symptoms had improved. Review of Systems Review of Systems: All systems reviewed & are unremarkable except as noted in HPI & below Physical Exam Physical Exam: General: awake, alert Head: Normocephalic, atraumatic ENT: PERRL, EOMI, no pharyngeal exudate, mucous membranes moist Neuro: AAO x 3, speech clear and appropriate, strength intact bilaterally 5/5, sensation intact and equal all extremities and dermatomes, no pronator drift Chest: equal rise and fall of the chest, using accessory muscles to breath with prolonged forceable expiration, inspiratory and expiratory wheeze throughout poor air movement Cardiac: Regular rate and rhythm, telemetry reviewed- ST 120s, skin warm dry, cap refill <3 seconds, peripheral pulses +2 no JVD, no murmur, no edema GI: NABS x 4 quadrants, soft, nontender to palpation, no rebound, guarding or tenderness : Spontaneously voiding, no pain, no CVA tenderness, Extremities: Normal inspection, no peripheral edema or erythema, calfs nontender to palpation Psych: Normal mood and affect Skin: no rash or erythema Results & Data Results & Data ([facility]) Vital Signs (Past 12 Hours) Vital Signs Temp Pulse Pulse Resp BP Pulse Ox 12/22/21 15:13 92 H 12/22/21 14:02 80 18 95 12/22/21 10:35 82 20 96 12/22/21 07:33 73 12/22/21 07:20 36.6 C 78 18 112/71 98 12/22/21 06:56 76 18 96 PG Care Time/CCT Total # of Minutes Spent Total Time Spent with Patient: Total time spent is greater than 50% in coordination of care (as documented) at patient's floor/unit and/or counseling patient: Coding Level of Care Code 41189 Subseq Hosp Care Lvl 2 Diagnoses Acute exacerbation of COPD with asthma J44.1; J45.901 Rib pain R07.81 Anxiety F41.9 Tobacco use disorder F17.200 Sarcoidosis D86.9 History of pulmonary embolism Z86.711 CHF (congestive heart failure) I50.9
[2021-12-22] MEDS: AZITHROMYCIN 250 MG in DEXTROSE 5% 250 ML IV SCH (18:26)
[2021-12-22] MEDS: traZODone HCL 50 MG TAB PO SCH (20:44)
[2021-12-22] MEDS: LIDOCAINE 5% 1 PATCH TD SCH (20:46)
[2021-12-22] MEDS: cefTRIAXone SODIUM 2,000 MG in DEXTROSE 5% 50 ML IV SCH (20:50)
[2021-12-23] MEDS: ALBUTEROL 0.5% NEB SOLN 2.5 MG/0.5 ML VIAL NEB SCH ×6 (02:25→22:49)
[2021-12-23] MEDS: BUDESONIDE 0.5 MG/2 ML VIAL (PULMICORT) NEB SCH ×2 (07:08→19:36)
[2021-12-23] MEDS: busPIRone 5 MG TAB PO SCH ×2 (08:01→19:59)
[2021-12-23] MEDS: GABAPENTIN 300 MG CAP PO SCH ×3 (08:02→19:59)
[2021-12-23] MEDS: methylPREDNISolone 40 MG in SYRINGE 0 ML IV SCH ×2 (08:02→09:24)
[2021-12-23] MEDS: ROSUVASTATIN CALCIUM 5 MG TAB PO SCH (08:02)
[2021-12-23] MEDS: NICOTINE 21 MG/24 HR TDSY TD SCH (08:03)
[2021-12-23] MEDS: UMECLIDINIUM/VILANTEROL 62.5/25MCG 7 PUFFS/INHALER INH SCH (08:03)
--- NOTE | 2021-12-23 08:30 | XRay Report ---
XR chest 2V PA/lateral CLINICAL HISTORY: COPD exacerbation TECHNIQUE: 2 views of the chest were obtained. Comparison: Comparison is made to chest radiograph 12/18/2021 FINDINGS: Right shoulder arthroplasty is seen. Degenerative changes are seen in the left shoulder joint. The ca rdiomediastinal silhouette is normal. Emphysematous and fibrotic changes are seen. No airspace opacit y is noted. No evidence of pleural effusion or pneumothorax. IMPRESSION: No acute abnormalities and in particular no evidence of pneumonia. Redemonstration of findings of emp hysema. ACT 112: Negative or not required by law. Electronically signed by: Prince Eaton M.D. 12/23/2021 8:29 AM
--- NOTE | 2021-12-23 11:38 | Hospitalist Progress Note ---
Date of Service December 23, 2021 Assessment & Plan (1) Acute exacerbation of COPD with asthma: Plan: Still with some SOB and wheeze on exam, currently on oxygen through nasal canula - 10mg Decadron given by EMD- 60mg of Methylprednisolone given now - 1GM Magnesium IV - Cotninue with Methylprednisolone 40mg IV q6 - Azithromycin 500mg IV now- then 250mg IV daily - Pulmicort nebulizer 0.5mg now- then BID - Scheduled Albuterol q4 hours nebulizer- can wean down if improves on BiPAP - Continue Umeclidinium/Vilanterol- or equivalent daily - If continues to not improve +/- performist - Avoid further sedating medications that effect her repiratory effort- if sedation needed while on BiPAP can consider Precedex as she will be in ICU- but currently improved on BiPAP - She is on Fluticasone and Anoro at home- evaluate for Trelegy ? PFTs completed 09/30/2020 with severe airflow obstruction with significant bronchodilation response (2) Rib pain: Plan: Chronic- just had steroid injections with Chronic pain- over the past year worsening - Hx of VATS - Lidocaine patches added - gabapentin restarted -PRN voltaren gell placed. 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 (6) History of pulmonary embolism: Plan: 2020 following surgery- continues on Xarelto 20mg PO daily - endorses not missing any doses (7) CHF (congestive heart failure): Plan: HFpEF- diastolic dysfunciton - no evidence of fluid overload on CXR - follow hemodynamics as above Plan: hopefully d/c in the next 48 hrs Admission and Anticipated Discharge Date Admission Date: December 18, 2021 Subjective patient seen and examined, still SOB and wheezing Review of Systems Review of Systems: All systems reviewed are negative, apart from the ones contained in the history. Physical Exam Physical Exam: The patient is awake, alert and oriented 3, well developed and well nourished, normocephalic and atraumatic, lying in bed and in no acute distress. HEENT--PERRL, EOMI, mucous membranes and oropharynx mildly dry Neck--supple. No JVD. No bruits. Thyroid normal, trachea midline, no adenopathy. Heart--normal S1 and S2. No murmurs, rubs or gallops. Lungs--Reduced air entry, bibasilar wheeze Abdomen--normal bowel sounds and soft. Mild epigastric and left sided abdominal pain Extremities--no cyanosis or clubbing. No edema. Dermatologic--normal skin turgor, normal color, no abnormal lymph nodes, no rash. Neurologic--cranial nerves II through XII grossly intact. Rheumatologic--normal range of motion. Psychiatric--normal affect. Results & Data Results & Data ([facility]) Vital Signs (Past 12 Hours) Vital Signs Temp Pulse Pulse Resp BP Pulse Ox 12/23/21 10:51 58 L 20 97 12/23/21 08:00 86 12/23/21 07:27 98.0 F 87 16 100/69 94 12/23/21 07:09 87 18 95 12/23/21 02:21 97.9 F 77 18 120/67 94 12/23/21 00:00 77 PG Care Time/CCT Total # of Minutes Spent Total Time Spent with Patient: Total time spent is greater than 50% in coordination of care (as documented) at patient's floor/unit and/or counseling patient: Coding Level of Care Code 85585 Subseq Hosp Care Lvl 2 Diagnoses Acute exacerbation of COPD with asthma J44.1; J45.901 Rib pain R07.81 Anxiety F41.9 Tobacco use disorder F17.200 Sarcoidosis D86.9 History of pulmonary embolism Z86.711 CHF (congestive heart failure) I50.9 Time Spent (min) 35
[2021-12-23] MEDS: ACETAMINOPHEN 325 MG TAB PO PRN ×2 (13:46→20:03)
[2021-12-23] MEDS: RIVAROXABAN 20 MG TAB PO SCH (17:21)
[2021-12-23] MEDS: AZITHROMYCIN 250 MG in DEXTROSE 5% 250 ML IV SCH (18:22)
[2021-12-23] MEDS: LIDOCAINE 5% 1 PATCH TD SCH (19:59)
[2021-12-23] MEDS: traZODone HCL 50 MG TAB PO SCH (20:03)
[2021-12-23] MEDS: cefTRIAXone SODIUM 2,000 MG in DEXTROSE 5% 50 ML IV SCH (20:03)
[2021-12-24] MEDS: ALBUTEROL 0.5% NEB SOLN 2.5 MG/0.5 ML VIAL NEB SCH ×6 (02:16→23:10)
[2021-12-24 06:25] LABS: Hematocrit (blood only) 46.5 % (37-47); Hemoglobin 15.5 g/dL (12.0-16.0); Mean Corpuscular Hemoglobin 31.9 pg (25-34); Mean Corpuscular Hgb Conc 33.3 g/dL (32-36); Mean Corpuscular Volume 95.7 fL (80-100); Mean Platelet Volume 9.8 fL (7.4-10.4); Platelet Count 174 K/uL (130-400); RDW Coefficient of Variation 14.1 % (11.5-14.5); RDW Standard Deviation 49.9 fL (36.4-46.3); Red Blood Count 4.86 M/uL (4.2-5.4); White Blood Count 6.75 K/uL (4.8-10.8)
[2021-12-24 06:57] LABS: BUN Creatinine Ratio 29.1 (10-20); Calcium 8.8 mg/dl (8.5-10.1); Creatinine Clr Calc Pharmacy 60.6 ml/min; Est GFR (Non-African American) 69.9 ml/min
[2021-12-24] MEDS: BUDESONIDE 0.5 MG/2 ML VIAL (PULMICORT) NEB SCH ×2 (07:25→19:48)
[2021-12-24] MEDS: methylPREDNISolone 40 MG in SYRINGE 0 ML IV SCH (07:53)
[2021-12-24] MEDS: ACETAMINOPHEN 325 MG TAB PO PRN ×3 (07:53→20:27)
[2021-12-24] MEDS: NICOTINE 21 MG/24 HR TDSY TD SCH (07:54)
[2021-12-24] MEDS: UMECLIDINIUM/VILANTEROL 62.5/25MCG 7 PUFFS/INHALER INH SCH (07:54)
[2021-12-24] MEDS: ROSUVASTATIN CALCIUM 5 MG TAB PO SCH (07:55)
[2021-12-24] MEDS: GABAPENTIN 300 MG CAP PO SCH ×3 (07:55→20:27)
[2021-12-24] MEDS: busPIRone 5 MG TAB PO SCH ×2 (07:55→20:28)
--- NOTE | 2021-12-24 11:55 | Hospitalist Progress Note ---
Date of Service December 24, 2021 Assessment & Plan (1) Acute exacerbation of COPD with asthma: Plan: Still with some SOB and wheeze on exam, currently on oxygen through nasal canula. Complains of persistent chest tightness. - X ray did not show any acute pathology, only evidence of emphysema. Will obtain CT chest - Continue with Methylprednisolone 40mg IV q6 - Azithromycin 500mg IV now- then 250mg IV daily - Pulmicort nebulizer 0.5mg now- then BID - Scheduled Albuterol q4 hours nebulizer- can wean down if improves on BiPAP - Continue Umeclidinium/Vilanterol- or equivalent daily - If continues to not improve +/- performist - Avoid further sedating medications that effect her repiratory effort- if sedation needed while on BiPAP can consider Precedex as she will be in ICU- but currently improved on BiPAP - She is on Fluticasone and Anoro at home- evaluate for Trelegy ? PFTs completed 09/30/2020 with severe airflow obstruction with significant bronchodilation response (2) Rib pain: Plan: Chronic- just had steroid injections with Chronic pain- over the past year worsening - Hx of VATS - Lidocaine patches added - gabapentin restarted -PRN voltaren gell placed. 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 (6) History of pulmonary embolism: Plan: 2020 following surgery- continues on Xarelto 20mg PO daily - endorses not missing any doses (7) CHF (congestive heart failure): Plan: HFpEF- diastolic dysfunciton - no evidence of fluid overload on CXR - follow hemodynamics as above Plan: hopefully d/c in the next 48 hrs Admission and Anticipated Discharge Date Admission Date: December 18, 2021 Subjective patient seen and examined, still SOB and wheezing, complains of persistent chest tightness Review of Systems Review of Systems: All systems reviewed are negative, apart from the ones contained in the history. Physical Exam Physical Exam: The patient is awake, alert and oriented 3, well developed and well nourished, normocephalic and atraumatic, lying in bed and in no acute distress. HEENT--PERRL, EOMI, mucous membranes and oropharynx mildly dry Neck--supple. No JVD. No bruits. Thyroid normal, trachea midline, no adenopathy. Heart--normal S1 and S2. No murmurs, rubs or gallops. Lungs--Reduced air entry, bibasilar wheeze Abdomen--normal bowel sounds and soft. Mild epigastric and left sided abdominal pain Extremities--no cyanosis or clubbing. No edema. Dermatologic--normal skin turgor, normal color, no abnormal lymph nodes, no rash. Neurologic--cranial nerves II through XII grossly intact. Rheumatologic--normal range of motion. Psychiatric--normal affect. Results & Data Results & Data ([facility]) Vital Signs (Past 12 Hours) Vital Signs Temp Pulse Pulse Pulse Resp BP Pulse Ox 12/24/21 07:55 98.2 F 79 18 92/59 L 96 12/24/21 07:27 71 18 98 12/24/21 06:08 79 12/24/21 03:33 97.5 F L 16 L 81 16 100/65 95 12/24/21 00:00 85 PG Care Time/CCT Total # of Minutes Spent Total Time Spent with Patient: Total time spent is greater than 50% in coordination of care (as documented) at patient's floor/unit and/or counseling patient: Coding Level of Care Code 67732 Subseq Hosp Care Lvl 2 Diagnoses Acute exacerbation of COPD with asthma J44.1; J45.901 Rib pain R07.81 Anxiety F41.9 Tobacco use disorder F17.200 Sarcoidosis D86.9 History of pulmonary embolism Z86.711 CHF (congestive heart failure) I50.9 Time Spent (min) 35
--- NOTE | 2021-12-24 13:51 | CT Scan Report ---
CT chest diagnostic wo con CLINICAL HISTORY: persistent chest tightness TECHNIQUE: Multidetector row helical CT of the chest was performed. Coronal and sagittal reformations were obtained. Automated dose lowering techniques and/or adjustment according to patient size were u tilized for this exam. CT DOSE: 476.49 mGy.cm Comparison: Comparison is made to CT chest 04/24/2021 FINDINGS: Lungs and pleura: Extensive emphysematous changes are seen along with foci of scarring. No evidence o f consolidation is seen. Heart and pericardium: Heart size is normal. No pericardial effusion. Vessels: The pulmonary trunk is enlarged measuring 32 mm. Mediastinum and arden: Numerous calcified lymph nodes are seen in the mediastinum and hilum. A partial ly calcified left suprahilar mass is unchanged from prior exam. Chest wall and lower neck: Unremarkable. Abdomen: Unremarkable. Bones: Degenerative changes in the thoracic spine. Right shoulder arthroplasty is noted. IMPRESSION: Extensive emphysematous changes are seen. No evidence of pneumonia. Interval stability of left suprah ilar mass which is partially calcified. Extensive calcified lymphadenopathy is seen compatible with h istory of granulomatous disease which is cervical kyphosis. ACT 112: Negative or not required by law. Electronically signed by: Prince Eaton M.D. 12/24/2021 1:50 PM
[2021-12-24] MEDS: RIVAROXABAN 20 MG TAB PO SCH (15:44)
[2021-12-24] MEDS: AZITHROMYCIN 250 MG in DEXTROSE 5% 250 ML IV SCH (19:41)
[2021-12-24] MEDS: LIDOCAINE 5% 1 PATCH TD SCH (20:27)
[2021-12-24] MEDS: traZODone HCL 50 MG TAB PO SCH (20:33)
[2021-12-24] MEDS: cefTRIAXone SODIUM 2,000 MG in DEXTROSE 5% 50 ML IV SCH (20:34)
[2021-12-25] MEDS: ALBUTEROL 0.5% NEB SOLN 2.5 MG/0.5 ML VIAL NEB SCH ×3 (03:45→10:49)
[2021-12-25] MEDS: BUDESONIDE 0.5 MG/2 ML VIAL (PULMICORT) NEB SCH (06:52)
[2021-12-25] MEDS: methylPREDNISolone 40 MG in SYRINGE 0 ML IV SCH (07:45)
[2021-12-25] MEDS: NICOTINE 21 MG/24 HR TDSY TD SCH (07:45)
[2021-12-25] MEDS: GABAPENTIN 300 MG CAP PO SCH (07:46)
[2021-12-25] MEDS: UMECLIDINIUM/VILANTEROL 62.5/25MCG 7 PUFFS/INHALER INH SCH (07:46)
[2021-12-25] MEDS: busPIRone 5 MG TAB PO SCH (07:46)
[2021-12-25] MEDS: ROSUVASTATIN CALCIUM 5 MG TAB PO SCH (07:46)
[2021-12-25] MEDS: ACETAMINOPHEN 325 MG TAB PO PRN (07:50)
--- NOTE | 2021-12-25 10:49 | Hospitalist Progress Note ---
Date of Service December 25, 2021 Assessment & Plan (1) Acute exacerbation of COPD with asthma: Plan: Still with some SOB and wheeze on exam, currently on oxygen through nasal canula. Complains of persistent chest tightness. - X ray did not show any acute pathology, only evidence of emphysema. Will obtain CT chest - Continue with Methylprednisolone 40mg IV q6 - Azithromycin 500mg IV now- then 250mg IV daily - Pulmicort nebulizer 0.5mg now- then BID - Scheduled Albuterol q4 hours nebulizer- can wean down if improves on BiPAP - Continue Umeclidinium/Vilanterol- or equivalent daily - If continues to not improve +/- performist - Avoid further sedating medications that effect her repiratory effort- if sedation needed while on BiPAP can consider Precedex as she will be in ICU- but currently improved on BiPAP - She is on Fluticasone and Anoro at home- evaluate for Trelegy ? PFTs completed 09/30/2020 with severe airflow obstruction with significant bronchodilation response (2) Rib pain: Plan: Chronic- just had steroid injections with Chronic pain- over the past year worsening - Hx of VATS - Lidocaine patches added - gabapentin restarted -PRN voltaren gell placed. 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 (6) History of pulmonary embolism: Plan: 2020 following surgery- continues on Xarelto 20mg PO daily - endorses not missing any doses (7) CHF (congestive heart failure): Plan: HFpEF- diastolic dysfunciton - no evidence of fluid overload on CXR - follow hemodynamics as above Plan: hopefully d/c in the next 48 hrs Admission and Anticipated Discharge Date Admission Date: December 18, 2021 Subjective Anoro Ellipta Duoneb Results & Data Results & Data ([facility]) Vital Signs (Past 12 Hours) Vital Signs Temp Pulse Pulse Resp BP Pulse Ox 12/25/21 07:31 36.8 C 79 22 109/72 100 12/25/21 07:19 73 12/25/21 06:54 77 18 12/25/21 04:53 36.5 C 72 18 96/64 L 97 12/25/21 00:16 85 12/24/21 23:14 36.6 C 83 18 96/63 L 97 12/24/21 23:11 85 20 96 PG Care Time/CCT Total # of Minutes Spent Total Time Spent with Patient: Total time spent is greater than 50% in coordination of care (as documented) at patient's floor/unit and/or counseling patient: Coding Diagnoses Acute exacerbation of COPD with asthma J44.1; J45.901 Rib pain R07.81 Anxiety F41.9 Tobacco use disorder F17.200 Sarcoidosis D86.9 History of pulmonary embolism Z86.711 CHF (congestive heart failure) I50.9
[2021-12-25] MEDS ORDERED: methylPREDNISolone 20 MG in SYRINGE 0 ML IV STA (11:01)
--- NOTE | 2021-12-25 11:24 | Discharge Summary ---
Date of Service December 25, 2021 Admission HPI Per Admitting Provider 66 YOF with medical history of 65 YOF with past medical history of COPD, Active smoker (15/day), Pulmonary embolism (08/23), Sarcoidosis with VATS (granulomatous pneumonitis), chest wall pain, osteopetrosis, chronic sinusitis, DJD. Patient comes to the hospital for increase dyspnea for the past 2-3 days with no relief on her home therapy of nebulizers and inhalers and home oxygen and increased sputum production. She is also complaining of rib pain bilaterally. She continues to smoke. In the EMD she had routine labs performed, VBG done and CXR. She was given 10mg of Decadron IV, Azithromycin, 1 GM of Magnesium, and 1 hour long nebulizer. Her VBG is not hypercarbic, however the patient remains with poor air movement throughout and inspiratory expiratory wheezing as well as using her abdominal muscles to breathe. She was given Ativan and this has made her somewhat somnolent, have encouraged her with deep inspiration and she is more awake at this time, but remains with poor pulmonary exam. Will give her an additional 60mg of Methylprednisolone now, Pulmicort nebulizer, and attempt BiPAP. She remains tachypneic in the 30s with tachycardia to 120s. She has not attempted BiPAP before. She reports that she has not missed any doses of her Xarelto which she is on for PE from 2020. COVID/FLU/RSV test on admission is: NEGATIVE Principal Diagnosis COPD exacerbation Discharge Exam Constitutional WD/WN, vitals as above Eyes + anicteric sclerae; normal pupil size ENMT external ear and nose normal, oropharynx normal Respiratory normal respiratory effort; no respiratory distress Auscultation: + wheezes (expiratory); no diminished lung sounds and no crackles Cardiovascular RRR, no murmur, no edema Gastrointestinal (Abdomen) normal bowel sounds, soft, nontender, no hepatosplenomegaly Discharge Data Allergies Allergy/AdvReac Type Severity Reaction Status Date / Time No Known Allergies Allergy Verified 12/18/21 17:39 Consultations 12/18/21 18:46 ED Decision to Admit Stat 12/18/21 19:03 Consult Soil Science Technical Officer Routine Ordered Studies 12/24/21 11:58 CT chest diagnostic wo con Routine Hospital Course (1) Acute exacerbation of COPD with asthma: Karine Ruiz is a 66 year old female admitted to [facility] from December 18 - 2021 due to shortness of breath. She was diagnosed with COPD exacerbation. This was treated with duonebs and intravenous Solu- Medrol along with her usual maintenance inhalers. She was treated for possible bacterial pneumonia with ceftriaxone and azithromycin (completed course during inpatient admission) due to the severity of illness, low grade fever and mildly elevated white blood count however no definitive pneumonia was identified (no focal consolidation on imaging and procalcitonin negative). Influenza, COVID and RSV PCR were negative. She will continue prednisone taper on discharge as prescribed below. Continue duonebs four times a day for the next 2 days then as needed for shortness of breath, chest tightness or wheezing. She should continue on her routine inhalers with Flovent and Anoro Ellipta. Continue to use oxygen as needed to aim oxygen saturations around 92% at rest and on exertion. She already takes 2LPM O2 on exertion and maintaining saturations > 88% on discharge on room air. She was advised on the importance of stopping smoking to help reducing the risk of further exacerbations. She was prescribed a nicotine patch to help with this on discharge. She expressed a wish to try this first prior to re-prescription of Chantix but has also had good success without side effects of Chantix previously and was advised to follow up with her PCP regarding a possible prescription of this if the nicotine patch is not effective. She was also advised to follow up with pulmonology (number below) on discharge for consideration of maintenance azithromycin and ongoing COPD management. (2) Rib pain: (3) Anxiety: (4) Tobacco use disorder: (5) Sarcoidosis: (6) History of pulmonary embolism: (7) CHF (congestive heart failure): Total Time Total Time Spent Total Time Spent (In Minutes): 35 Discharge Plan Discharge Items Patient Disposition: Home - Self-Care Reason For Visit: COPD, DYSPNEA Discharge Diagnosis: COPD exacerbation Activity: Per Instructions section Exercise/Sports: Gradually increase as tolerated Non-emergency contact: Primary Care Provider and Practice Billing Associate Call non-emergency contact if: you have any medication questions and your symptoms worsen Follow-up/Referrals: Nichole Farfan CRNP [Primary Care Provider] - 01/06/22 2:00 pm Luke Mooney MD [Physician] - 01/24/22 2:00 pm () Diet: Regular Addtl Attending Provider Instructions: You were admitted to [facility] from December 18 - 2021 due to shortness of breath. You were diagnosed with COPD exacerbation. This was treated with duonebs and intravenous steroids along with your usual inhalers. Antibiotics were used due to the severity of illness, low grade fever and mildly elevated white blood count however no definitive pneumonia was identified. Influenza, COVID and respiratory syncytial virus testing was negative. Please continue prednisone (steroid) taper as prescribed on discharge. Continue duonebs four times a day for the next 2 days then as needed for shortness of breath, chest tightness or wheezing. Please continue your routine inhalers with Flovent and Anoro Ellipta. Continue to use oxygen as needed to aim oxygen saturations around 92% at rest and on exertion. Stopping smoking will be critical to help reducing the risk of further exacerbations. Please use nicotine patch as prescribed and get refill through your primary care provider. Please follow up with your primary care physician on discharge for consideration of Chantix if you require further help to stop smoking. Please follow up with pulmonology (number above) on discharge for consideration of maintenance azithromycin and ongoing COPD management. Pending Studies at Discharge: No Stand-Alone Forms: My [facility], Smoking Cessation Medications and DC Order Prescriptions: New nicotine [Nicoderm CQ] 21 mg/24 hr Patch 24 Hour 21 mg transdermal QAM Qty: 28 RF: 0 prednisone 10 mg tablet See Rx Instructions .ROUTE .COMPLEX Qty: 40 RF: 0 Continued meloxicam 7.5 mg tablet 7.5 mg PO QPM Qty: 90 RF: 3 Flovent HFA 110 mcg/actuation HFA aerosol inhaler 2 puff inhalation BID Qty: 12 RF: 5 trazodone 50 mg tablet 50 mg PO HS Qty: 90 RF: 3 Anoro Ellipta 62.5-25 mcg/actuation blister with device 1 inh inhalation QAM Qty: 60 RF: 5 lorazepam [Ativan] 1 mg tablet 1 mg PO DAILY PRN (Reason: Anxiety) Qty: 30 RF: 3 gabapentin 300 mg capsule 300 mg PO TID Qty: 90 RF: 5 Xarelto 20 mg tablet 20 mg PO HS Qty: 30 RF: 5 albuterol sulfate [Ventolin HFA] 90 mcg/actuation HFA aerosol inhaler 2 puff inhalation QID PRN (Reason: Shortness Of Breath Or Wheezing) Qty: 18 RF: 11 (DME) Oxygen Home Liters Per Minute See Rx Instructions .MEDSUPPLY Qty: 1 RF: 5 albuterol sulfate 2.5 mg /3 mL (0.083 %) solution for nebulization 2.5 mg INHALATION QID PRN (Reason: Shortness Of Breath Or Wheezing) Qty: 270 RF: 5 buspirone 10 mg tablet 10 mg PO BID RF: 0 Discharge Orders: Discharge Order (Routine); Ordered 12/25/21 Ordered By: Vaibhav Rolle/Other Patient Handouts: COPD: Chronic Coughing Admission Data Admit Date/Time: 12/18/21 18:56 Attending Provider: Vaibhav Aaron Admit Provider: Mirza Pereira Primary Care Provider: Nichole Farfan Other Providers: Tosin Kelley ; Joseph Britton Other Interventions: Discharge Summary Assessment (RN) Last Done: 12/25/21 12:23 Coding Level of Care Code D/C DAY MANAGEMENT >30 MINS Diagnoses Acute exacerbation of COPD with asthma J44.1; J45.901 Rib pain R07.81 Anxiety F41.9 Tobacco use disorder F17.200 Sarcoidosis D86.9 History of pulmonary embolism Z86.711 CHF (congestive heart failure) I50.9
== END 2021-12-25 13:15 | disposition home or self-care (01) | DRG 191 ==
LOC: ED 16:54 → SUATTDRO 18:56 → 1E 18:56 → 2N 12-20 17:15

== ENCOUNTER 2022-03-03 15:12 | Observation (INO) ==
[2022-03-03] MEDS ORDERED: ALBUT/IPRATROP 3MG/0.5MG NEB 3 ML VIAL NEB ONE (15:30)
[2022-03-03] MEDS ORDERED: AZITHROMYCIN 500 MG in DEXTROSE 5% 250 ML IV ONE (15:33)
--- NOTE | 2022-03-03 15:33 | Emergency Department Note ---
Impression & Plan COPD exacerbation, Breath shortness ED Provider Note NAME: SHMUEL GAMA AGE: 66 SEX: F : 1955 ARRIVES VIA: Ambulance INFORMANT: Patient ED PROVIDER(S): Lucas Leigh DO CHIEF COMPLAINT: shortness of breath HPI: Patient is a 66-year-old female with a past medical history of COPD chronically on 2 L nasal cannula who presents the ER for shortness of breath which has been going on for the past 3 to 4 days. Started with a productive cough with brown sputum. She has been slightly titrating up her O2. She admits to chronic chest pain under bilateral ribs which has been present for the past 2 years. No belly pain, nausea, or vomiting. Does admit to some diarrhea. No dysuria, urgency, or frequency. She has been taking her NOAC. No other exacer bating or remitting factors. Just recently admitted and discharged from the ICU last month ROS: See above HPI for pertinent positives & negatives. A total of 10 systems reviewed and were otherwise negative. PAST MEDICAL HISTORY:See Below PAST SURGICAL HISTORY:See Below FAMILY HISTORY:See Below SOCIAL HISTORY:See Below HOME MEDICATIONS:See Below ALLERGIES:See Below VITALS:See Below PHYSICAL EXAMINATION: GENERAL: Sitting up in bed, alert, well appearing, well nourished, no distress, non-toxic EYE EXAM: normal conjunctiva. PERRL and EOM's grossly intact. OROPHARYNX: no exudate, no erythema, lips, buccal mucosa, and tongue normal and mucous membranes are moist NECK: supple, no nuchal rigidity, no adenopathy, non-tender LUNGS: Wheezing bilaterally. Normal chest wall mechanics HEART: no murmurs, S1 normal and S2 normal ABDOMEN: abdomen soft, non-tender, normo-active bowel sounds, no masses, no rebound or guarding. UPPER EXTREMITIES: upper extremities are grossly normal. LOWER EXTREMITIES: No pitting edema. Cervical bilateral NEURO EXAM: Normal sensorium, cranial nerves II-XII grossly intact, normal speech, no gross weakness of arms, no gross weakness of legs. MEDICAL DECISION MAKING: Patient is a six 6-year-old female who presents ER for shortness of breath. IV was established blood was obtained. Labs show no significant leukocytosis or anemia. BMP along with LFTs bilirubin and lipase was unremarkable. Troponin was negative with symptoms have been present for greater than 6 hours not indicative of ACS. Currently on a NOAC no signs of PE. COVID was negative. Chest x-ray was clean. To 1 hour neb treatments with minimal improvement. Sti ll significantly dyspneic with exertion. Remained on 2 L nasal cannula which she wears intermittently/as needed at home. With the persistent dyspnea following steroids and neb treatments discussed with hospitalist for further evaluation Dr. Basilio Cary. Triage Nursing notes reviewed. Limited review of prior medical records performed Vital Signs: reviewed and remarkable for no significant abnormalities Differential diagnosis: Differential diagnoses includes but is not limited to pneumonia, bronchitis, COPD/Asthma exacerbation, pneumothorax, pulmonary embolism, congestive heart failure, acute coronary syndrome ER treatment provided: See below Diagnostics interpreted by me: ECG: Sinus tachycardia rate of 104 Normal axis No PVCs QTC 460 Cardiac Monitoring: An order was placed for continuous cardiac monitoring. The monitor shows a rate of 101 with sinus rhythm. Laboratory studies: As stated above and show below. Imaging studies: Portable AP upright 1 view of the chest shows no focal infiltrate or pneumothorax Consultation(s): Described above Procedures: none Critical Care: None Past Med/Surg History Medical History (Updated 03/03/22 @ 21:37 by Basilio Cary MD) Acute exacerbation of chronic obstructive pulmonary disease Acute respiratory distress Anxiety and depression Anxiety with depression COPD (chronic obstructive pulmonary disease) History of pulmonary embolism x 2. 1st following shoulder replacement 2018, 2nd 3-4 mo ago -- unk etiology -- on xarelto On home O2 2 LPM PRN Osteoarthritis Osteoporosis Rib pain Sarcoidosis follows with Flo Albright PA-C Scoliosis Thoracic back pain Surgical History H/O hysterectomy for benign disease (10/02/12) History of hip replacement Left PREETI: 09/11/17: SAB x 1 at L3-L4 at [facility] History of right shoulder replacement Hx of colonoscopy Hx of elbow surgery RIGHT Family History Father Myocardial infarction Brother Anxiety COPD (chronic obstructive pulmonary disease) Daughter Anxiety Sister Breast cancer Other Diabetes Kidney disease No family history of adverse response to anesthesia Denies family history of Ovarian cancer Prostate cancer Colorectal cancer Social History (Updated 02/14/22 @ 10:04 by Marline Pressler, GRADE TEACHER) Smoking Status: Current every day smoker Tobacco Type: Cigarettes Age Started Using Tobacco: 22; packs per day: 0.75; Cigarettes Per Day: 30-40; Second Hand Exposure: Yes; Hx Alcohol Use: No Hx Substance Use: No Preferred Language: Cameroonian Communication Ability: Effective Visual Impairment: No Limitations Hearing Ability: Normal Electrical Systems Designer Required: No Beliefs That Will Affect Care: None marital status: Current Living Situation: Spouse current occupational status: retired and disabled 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 How many Children do You have: 2 Feels Safe at Home: Yes Childhood Exposure to Second-Hand Smoke: No Dental Care, Regularly: No Physical Activity Frequency: Does not Exercise Seatbelt Use: always Sunscreen Use: No (is not out in the sun much ) Assistive Devices: Cane, Oxygen - Continuous, Walker and Wheelchair Allergies Allergies Allergy/AdvReac Type Severity Reaction Status Date / Time No Known Allergies Allergy Verified 03/03/22 15:54 Home Meds Previous Rx's Medication Instructions Recorded fluticasone propionate 110 2 puff inhalation BID #12 grams 06/28/21 mcg/actuation HFA aerosol inhaler (Flovent HFA) albuterol sulfate 2.5 mg/3 mL 2.5 mg (3 mL) inhalation QID PRN 07/28/21 (0.083 %) solution for nebulization Shortness Of Breath Or Wheezing #270 mL trazodone 50 mg tablet 50 mg PO HS #90 tabs 08/09/21 rivaroxaban 20 mg tablet (Xarelto) 20 mg PO HS #30 tabs 12/13/21 escitalopram oxalate 10 mg tablet 10 mg PO DAILY #90 tabs 01/06/22 gabapentin 600 mg tablet 600 mg PO TID #90 tabs 01/06/22 albuterol sulfate 90 mcg/actuation 2 puff inhalation QID PRN 02/24/22 aerosol inhaler (Ventolin HFA) Shortness Of Breath Or Wheezing #18 grams lorazepam 1 mg tablet (Ativan) 1 mg PO DAILY PRN Anxiety #30 tabs 02/24/22 meloxicam 7.5 mg tablet 7.5 mg PO QPM #90 tabs 03/02/22 umeclidinium 62.5 mcg-vilanterol 1 inh inhalation QAM #60 ea 03/02/22 25 mcg/actuation powdr for inhalation (Anoro Ellipta) Results & Data (ED) Vital Signs Vital Signs - 24 hr 03/03/22 15:17 03/03/22 15:21 03/03/22 15:23 Temperature Temperature Source Pulse Rate 88 Pulse Rate [Right] Pulse Rhythm Regular Pulse Rhythm [Right] Pulse Strength Normal Respiratory Rate 22 Respiratory Effort / Characteristics Non-Labored Spontaneous Non-Labored Spontaneous Respiratory Depth Normal Normal Respiratory Pattern Regular Blood Pressure 132/78 Blood Pressure [Right Arm] Blood Pressure Mean 96 Blood Pressure Mean [Right Arm] Blood Pressure Position [Right Arm] Pulse Oximetry 95 96 Oxygen Delivery Method Nasal Cannula Nasal Cannula Nasal Cannula Oxygen Flow Rate 2 2 2 Fraction of Inspired Oxygen SaO2/FiO2 Ratio Sepsis Recent Fever Within 48 Hours No Sepsis New/Unexplained Change in Mental Status No Sepsis Action Taken by Nursing No Action Required 03/03/22 15:32 03/03/22 16:32 03/03/22 16:44 Temperature Temperature Source Pulse Rate 79 Pulse Rate [Right] 81 83 Pulse Rhythm Regular Pulse Rhythm [Right] Regular Pulse Strength Respiratory Rate 24 14 20 Respiratory Effort / Characteristics Spontaneous Non-Labored Respiratory Depth Normal Respiratory Pattern Blood Pressure Blood Pressure [Right Arm] 115/78 Blood Pressure Mean Blood Pressure Mean [Right Arm] 90 Blood Pressure Position [Right Arm] Pulse Oximetry 97 95 Oxygen Delivery Method Nasal Cannula Nasal Cannula Nasal Cannula Oxygen Flow Rate 3 3 Fraction of Inspired Oxygen 2 SaO2/FiO2 Ratio 4750 Sepsis Recent Fever Within 48 Hours Sepsis New/Unexplained Change in Mental Status Sepsis Action Taken by Nursing 03/03/22 15:30 03/03/22 17:00 03/03/22 18:42 Temperature 37.1 C Temperature Source Oral Pulse Rate Pulse Rate [Right] 80 91 H Pulse Rhythm Pulse Rhythm [Right] Regular Regular Pulse Strength Respiratory Rate 23 20 Respiratory Effort / Characteristics Non-Labored Non-Labored Respiratory Depth Normal Normal Respiratory Pattern Blood Pressure Blood Pressure [Right Arm] 115/70 106/74 Blood Pressure Mean Blood Pressure Mean [Right Arm] 85 84 Blood Pressure Position [Right Arm] Pulse Oximetry 94 98 Oxygen Delivery Method Nasal Cannula Nebulizer Oxygen Flow Rate 3 8 Fraction of Inspired Oxygen SaO2/FiO2 Ratio Sepsis Recent Fever Within 48 Hours Sepsis New/Unexplained Change in Mental Status Sepsis Action Taken by Nursing 03/03/22 19:54 03/03/22 19:00 03/03/22 20:18 Temperature Temperature Source Pulse Rate Pulse Rate [Right] 99 H 88 98 H Pulse Rhythm Pulse Rhythm [Right] Regular Regular Regular Pulse Strength Respiratory Rate 22 24 23 Respiratory Effort / Characteristics Non-Labored Respiratory Depth Normal Normal Respiratory Pattern Blood Pressure Blood Pressure [Right Arm] 97/64 L 101/63 Blood Pressure Mean Blood Pressure Mean [Right Arm] 75 75 Blood Pressure Position [Right Arm] Semi-fowlers Pulse Oximetry 96 94 94 Oxygen Delivery Method Nebulizer Nasal Cannula Nasal Cannula Oxygen Flow Rate 2 2 Fraction of Inspired Oxygen SaO2/FiO2 Ratio Sepsis Recent Fever Within 48 Hours Sepsis New/Unexplained Change in Mental Status Sepsis Action Taken by Nursing 03/03/22 21:29 Temperature Temperature Source Pulse Rate Pulse Rate [Right] 100 H Pulse Rhythm Pulse Rhythm [Right] Regular Pulse Strength Respiratory Rate 23 Respiratory Effort / Characteristics Respiratory Depth Normal Respiratory Pattern Blood Pressure Blood Pressure [Right Arm] 101/55 L Blood Pressure Mean Blood Pressure Mean [Right Arm] 70 Blood Pressure Position [Right Arm] Pulse Oximetry 93 Oxygen Delivery Method Nasal Cannula Oxygen Flow Rate Fraction of Inspired Oxygen SaO2/FiO2 Ratio Sepsis Recent Fever Within 48 Hours Sepsis New/Unexplained Change in Mental Status Sepsis Action Taken by Nursing Laboratory Data Result diagrams: 03/03/22 15:25 03/03/22 15:25 Lab Results 03/03/22 03/03/22 03/03/22 Range/Units 15:25 15:25 16:25 WBC 6.28 (4.8-10.8) K/ul RBC 5.07 (3.93-5.22) M/uL Hgb 16.3 H (12.0-16.0) g/dl Hct 48.0 H (34.1-44.9) % MCV 94.7 (80.0-100.0) fL MCH 32.1 (25.0-34.0) pg MCHC 34.0 (32.0-36.0) g/dL RDW Std Deviation 47.2 H (36.4-46.3) fL RDW Coeff of Perry 13.6 (11.5-14.5) % Plt Count 199 (130-400) K/uL MPV 9.9 (9.4-12.3) fL Immature Gran % (Auto) 0.3 % Neut % (Auto) 84.0 % Lymph % (Auto) 13.5 % Benton % (Auto) 1.9 % Eos % (Auto) 0.0 % Baso % (Auto) 0.3 % Neut # (Auto) 5.27 (1.4-6.5) K/uL Lymph # (Auto) 0.85 L (1.2-3.4) K/uL Benton # (Auto) 0.12 L (0.24-0.82) K/uL Eos # (Auto) 0.00 (0-0.50) K/uL Baso # (Auto) 0.02 (0-0.2) K/uL Immature Gran # (Auto) 0.02 (0.00-0.02) K/uL Sodium 137 (136-145) mmol/L Potassium 4.4 (3.5-5.1) mmol/L Chloride 101 (98-107) mmol/L Carbon Dioxide 28 (21-32) mmol/L Anion Gap 8 (3-11) BUN 18 (6-23) mg/dl Creatinine 0.95 (0.6-1.2) mg/dl Est Cr Clr Drug Dosing 59.1 ml/min Est GFR ( Amer) 71.8 ml/min Est GFR (Non-Af Amer) 62.0 ml/min BUN/Creatinine Ratio 18.9 (10-20) Glucose 126 H (70-99(Fasting)) mg/dl Calcium 10.0 (8.5-10.1) mg/dl Total Bilirubin 1.0 (0.2-1.0) mg/dl AST 12 L (13-39) U/L ALT 10 (7-52) U/L Alkaline Phosphatase 102 (34-104) U/L Troponin I High Sens 5.0 (0-14) pg/ml Total Protein 7.2 (6.0-8.3) gm/dl Albumin 4.4 (3.4-5.0) gm/dl Globulin 2.8 (2.5-4.0) gm/dl Albumin/Globulin Ratio 1.6 (0.9-2) Lipase 20 (11-82) U/L SARS-CoV-2, RNA, NAAT NEGATIVE (NEGATIVE) Administered Medications Discontinued Medications Albuterol (Albut/Ipratrop 3mg/0.5mg Neb 3 Ml Vial) 12 ml NEB ONE ONE; Protocol Stop: 03/03/22 15:31 Last Admin: 03/03/22 16:30 Dose: 12 ml Documented By: [id number] Albuterol (Albuterol 0.083% Nebu Soln 3 Ml Vial) 5 mg NEB NOW STA; Protocol Stop: 03/03/22 19:21 Last Admin: 03/03/22 19:50 Dose: 5 mg Documented By: VAP Azithromycin 500 mg/ Dextrose 255 mls @ 125 mls/hr IV ONE ONE Stop: 03/03/22 17:35 Last Admin: 03/03/22 16:18 Dose: 125 mls/hr Documented By: VAP Methylprednisolone (Methylprednisolone 40 Mg/Ml Vial) 40 mg IV NOW STA Stop: 03/03/22 15:34 Last Admin: 03/03/22 16:11 Dose: 40 mg Documented By: VAP Methylprednisolone (Methylprednisolone 125 Mg/2 Ml Vial) 80 mg IV NOW STA Stop: 03/03/22 21:12 Last Admin: 03/03/22 21:23 Dose: 80 mg Documented By: VAP Imaging Data Radiologist's Impression: Chest X-Ray 03/03/22 15:30 XR chest 1V portable CLINICAL HISTORY: Atypical chest pain. COMPARISON STUDY: Chest radiograph December 23, 2021. Chest CT December 25, 2019. FINDINGS: Right shoulder arthroplasty is incidentally noted. No pneumothorax or pleural effusion is present. Cardiac size is normal. There is no evidence for pulmonary edema. There is no consolidation to suggest pneumonia. Emphysema is better depicted on prior chest CT. Calcified mediastinal and bilateral hilar lymph nodes are noted. Suprahilar densities are unchanged with superior retraction of the arden. The appearance of the chest is unchanged. IMPRESSION: No change in appearance of the chest. Emphysema with evidence for a granulomatous process, as described above. ACT 112: Negative or not required by law. Electronically signed by: Carlos Cunha M.D. 03/03/2022 3:47 PM Discharge Plan Visit Data Chief Complaint: Shortness of Breath/Dyspnea Stated Complaint: SOB ED Provider: Lucas Leigh Discharge Problem: COPD exacerbation, Breath shortness Forms Stand Alone Forms: My [facility] Prescriptions Prescriptions: No Action Flovent HFA 110 mcg/actuation HFA aerosol inhaler 2 puff inhalation BID Qty: 12 5RF trazodone 50 mg tablet 50 mg PO HS Qty: 90 3RF Xarelto 20 mg tablet 20 mg PO HS Qty: 30 5RF lorazepam [Ativan] 1 mg tablet 1 mg PO DAILY PRN (Reason: Anxiety) Qty: 30 3RF albuterol sulfate [Ventolin HFA] 90 mcg/actuation HFA aerosol inhaler 2 puff inhalation QID PRN (Reason: Shortness Of Breath Or Wheezing) Qty: 18 11RF Rx Instructions: PER 1ST Anoro Ellipta 62.5-25 mcg/actuation blister with device 1 inh inhalation QAM Qty: 60 5RF meloxicam 7.5 mg tablet 7.5 mg PO QPM Qty: 90 3RF Rx Instructions: PER 1STY escitalopram oxalate 10 mg tablet 10 mg PO DAILY Qty: 90 3RF gabapentin 600 mg tablet 600 mg PO TID Qty: 90 5RF Label Comments: Patients next dose is 03/03 @ 1700 Rx Instructions: Patients next dose is 03/03 @ 1700 albuterol sulfate 2.5 mg /3 mL (0.083 %) solution for nebulization 2.5 mg INHALATION QID PRN (Reason: Shortness Of Breath Or Wheezing) Qty: 270 5RF Referrals Referrals: Nichole Farfan CRNP [Primary Care Provider] -
[2022-03-03 15:46] LABS: Basophils # (auto) 0.02 K/uL (0-0.2); Basophils % (auto) 0.3 %; Hemoglobin 16.3 g/dl (12.0-16.0); Immature Granulocytes # (auto) 0.02 K/uL (0.00-0.02); Immature Granulocytes % (auto) 0.3 %; Lymphocytes # (auto) 0.85 K/uL (1.2-3.4); Lymphocytes % (auto) 13.5 %; Mean Corpuscular Hemoglobin 32.1 pg (25.0-34.0); Mean Corpuscular Volume 94.7 fL (80.0-100.0); Mean Platelet Volume 9.9 fL (9.4-12.3); Monocytes # (auto) 0.12 K/uL (0.24-0.82); Monocytes % (auto) 1.9 %; Neutrophils # (auto) 5.27 K/uL (1.4-6.5); Platelet Count 199 K/uL (130-400); RDW Coefficient of Variation 13.6 % (11.5-14.5); RDW Standard Deviation 47.2 fL (36.4-46.3); Red Blood Count 5.07 M/uL (3.93-5.22); White Blood Count 6.28 K/ul (4.8-10.8)
--- NOTE | 2022-03-03 15:48 | XRay Report ---
XR chest 1V portable CLINICAL HISTORY: Atypical chest pain. COMPARISON STUDY: Chest radiograph December 23, 2021. Chest CT December 25, 2019. FINDINGS: Right shoulder arthroplasty is incidentally noted. No pneumothorax or pleural effusion is p resent. Cardiac size is normal. There is no evidence for pulmonary edema. There is no consolidation t o suggest pneumonia. Emphysema is better depicted on prior chest CT. Calcified mediastinal and bilate ral hilar lymph nodes are noted. Suprahilar densities are unchanged with superior retraction of the h lamberto. The appearance of the chest is unchanged. IMPRESSION: No change in appearance of the chest. Emphysema with evidence for a granulomatous process , as described above. ACT 112: Negative or not required by law. Electronically signed by: Carlos Cunha M.D. 03/03/2022 3:47 PM
[2022-03-03 16:14] LABS: Albumin Globulin Ratio 1.6 (0.9-2); Albumin Level 4.4 gm/dl (3.4-5.0); BUN Creatinine Ratio 18.9 (10-20); Creatinine Clr Calc Pharmacy 59.1 ml/min; Est GFR (African American) 71.8 ml/min; Globulin 2.8 gm/dl (2.5-4.0); Potassium 4.4 mmol/L (3.5-5.1); Total Protein 7.2 gm/dl (6.0-8.3)
[2022-03-03] MEDS ORDERED: ALBUTEROL 0.083% NEBU SOLN 3 ML VIAL NEB STA (19:20)
--- NOTE | 2022-03-03 20:58 | History & Physical Report ---
Date of Service March 03, 2022 Assessment & Plan (1) Acute on chronic respiratory failure with hypoxia: Plan: Acute on chronic respiratory failure with hypoxia/acute exacerbation of COPD with asthma/sarcoidosis- Given by the ED Solu-Medrol 40 mg IV, will add additional 80 mg IV now for total of 120 Methylprednisolone 40 mg IV every 6 hours Azithromycin 500 mg IV daily Cefepime 2 g IV every 12 hours Duonebs every 4 hours while awake and every 2 hours when necessary. Follow sputum gram stain and culture Guaifenesin extended release 12 mg p.o. twice daily Nasal cannula oxygen, titrate to keep pulse ox 94-95% Patient is COVID-19 negative this evening (2) Acute exacerbation of COPD with asthma: Plan: Continue routine inhalers (3) Sarcoidosis: Plan: Patient will need a longer tapering course of treatment upon discharge, as I suspect that part of her previous issue with of not returning to baseline may be related to underlying sarcoidosis and severe COPD (4) History of pulmonary embolism: Plan: Continue Xarelto (5) Hyperlipidemia: Plan: On no routine medications Check a fasting lipid panel (6) Anxiety with depression: Plan: Continue escitalopram, lorazepam and trazodone (7) Tobacco use disorder: Plan: Cessation counseling (8) Compression fracture of body of thoracic vertebra: Plan: Patient does have a back brace she wears periodically, that she reports does seem to help her breathing as well History of Present Illness Chief Complaint: The patient presents to the emergency department with a few days of worsening shortness of breath, productive cough of brown sputum, dyspnea on exertion and generalized malaise. Primary Care Provider: CLAY Michele The patient is a 66-year-old female with a past medical history including CHF, PE, COPD with asthma, compression fracture of thoracic vertebrae, thoracic back pain, hyperlipidemia, anxiety with depression, tobacco use disorder, chronic respiratory failure with hypoxia, cor pulmonale, status post right TSA and sarcoidosis. She was most recently mated to [facility] from 12/18-12/25/2021 for similar but worse symptoms. With the onset of the symptoms, she decided to present to the emergency department earlier, to receive earlier treatment. She reports that following her previous hospitalization, she did improve, but never returned all the way back to her baseline. She does continue to smoke tobacco. She does wear her oxygen as needed, and has worn it again over the past few days with her breathing exacerbation Allergies Allergy/AdvReac Type Severity Reaction Status Date / Time No Known Allergies Allergy Verified 03/03/22 15:54 Home Medications Medication Instructions Recorded Confirmed Type fluticasone propionate 110 2 puff inhalation BID #12 grams 06/28/21 03/03/22 Rx mcg/actuation HFA aerosol inhaler (Flovent HFA) albuterol sulfate 2.5 mg/3 mL 2.5 mg (3 mL) inhalation QID PRN 07/28/21 03/03/22 Rx (0.083 %) solution for nebulization Shortness Of Breath Or Wheezing #270 mL trazodone 50 mg tablet 50 mg PO HS #90 tabs 08/09/21 03/03/22 Rx rivaroxaban 20 mg tablet (Xarelto) 20 mg PO HS #30 tabs 12/13/21 03/03/22 Rx escitalopram oxalate 10 mg tablet 10 mg PO DAILY #90 tabs 01/06/22 03/03/22 Rx gabapentin 600 mg tablet 600 mg PO TID #90 tabs 01/06/22 03/03/22 Rx albuterol sulfate 90 mcg/actuation 2 puff inhalation QID PRN 02/24/22 03/03/22 Rx aerosol inhaler (Ventolin HFA) Shortness Of Breath Or Wheezing #18 grams lorazepam 1 mg tablet (Ativan) 1 mg PO DAILY PRN Anxiety #30 tabs 02/24/22 03/03/22 Rx meloxicam 7.5 mg tablet 7.5 mg PO QPM #90 tabs 03/02/22 03/03/22 Rx umeclidinium 62.5 mcg-vilanterol 1 inh inhalation QAM #60 ea 03/02/22 03/03/22 Rx 25 mcg/actuation powdr for inhalation (Anoro Ellipta) Past Med/Surg History Medical History (Updated 03/03/22 @ 21:37 by Basilio Cary MD) Acute exacerbation of chronic obstructive pulmonary disease Acute respiratory distress Anxiety and depression Anxiety with depression COPD (chronic obstructive pulmonary disease) History of pulmonary embolism x 2. 1st following shoulder replacement 2018, 2nd 3-4 mo ago -- unk etiology -- on xarelto On home O2 2 LPM PRN Osteoarthritis Osteoporosis Rib pain Sarcoidosis follows with Flo Albright PA-C Scoliosis Thoracic back pain Surgical History H/O hysterectomy for benign disease (10/02/12) History of hip replacement Left PREETI: 09/11/17: SAB x 1 at L3-L4 at [facility] History of right shoulder replacement Hx of colonoscopy Hx of elbow surgery RIGHT Family History Father Myocardial infarction Brother Anxiety COPD (chronic obstructive pulmonary disease) Daughter Anxiety Sister Breast cancer Other Diabetes Kidney disease No family history of adverse response to anesthesia Denies family history of Ovarian cancer Prostate cancer Colorectal cancer Social History (Updated 02/14/22 @ 10:04 by Marline Billings LPN) Smoking Status: Current every day smoker Tobacco Type: Cigarettes Age Started Using Tobacco: 22; packs per day: 0.75; Cigarettes Per Day: 30-40; Second Hand Exposure: Yes; Hx Alcohol Use: No Hx Substance Use: No Preferred Language: Yoruba Communication Ability: Effective Visual Impairment: No Limitations Hearing Ability: Normal Preparation Plant Repairer Required: No Beliefs That Will Affect Care: None marital status: Current Living Situation: Spouse current occupational status: retired and disabled 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 How many Children do You have: 2 Feels Safe at Home: Yes Childhood Exposure to Second-Hand Smoke: No Dental Care, Regularly: No Physical Activity Frequency: Does not Exercise Seatbelt Use: always Sunscreen Use: No (is not out in the sun much ) Assistive Devices: Cane, Oxygen - Continuous, Walker and Wheelchair Review of Systems Review of Systems: The patient denies chest pain, palpitations, lower extremity swelling, sore throat, fevers, chills, sweats, nausea, vomiting, diarrhea , constipation, abdominal pain, pelvic pain, blood in urine or stool, dysuria, urinary frequency or urgency, memory loss, loss of consciousness, rash, abnormal bruising or bleeding, imbalance, focal or generalized weakness, numbness or tingling in arms or legs, generalized arthralgias or myalgias, back or neck pain, or night sweats. The review of systems is otherwise negative other than for that already noted above, and at least 10 systems have been reviewed. Physical Exam Physical Exam: The patient is awake, alert and oriented 3, well developed and well nourished, normocephalic and atraumatic, lying in bed and in no acute distress. HEENT--PERRL, EOMI, mucous membranes and oropharynx normal. Neck--supple. No JVD. No bruits. Thyroid normal, trachea midline, no adenopathy. Heart--normal S1 and S2. No murmurs, rubs or gallops. Lungs--coarse breath sounds with scattered wheezes, right greater than left. No respiratory distress, no accessory muscle use. Abdomen--normal bowel sounds and soft. Nontender. Nondistended, no hernias or m asses, no organomegaly. Extremities--no cyanosis or clubbing. No edema. Dermatologic--normal skin turgor, normal color, no abnormal lymph nodes, no rash. Neurologic--cranial nerves II through XII grossly intact. Rheumatologic--normal range of motion. Psychiatric--normal affect. Results & Data Results & Data ([facility]) Vital Signs (Past 12 Hours) Vital Signs Temp Pulse Pulse Resp BP BP Pulse Ox 03/03/22 20:18 98 H 23 94 03/03/22 19:00 88 24 101/63 94 03/03/22 19:54 99 H 22 97/64 L 96 03/03/22 18:42 37.1 C 03/03/22 17:00 91 H 20 106/74 98 03/03/22 15:30 80 23 115/70 94 03/03/22 16:44 83 20 115/78 95 03/03/22 16:32 81 14 97 03/03/22 15:32 79 24 03/03/22 15:23 96 03/03/22 15:21 03/03/22 15:17 88 22 132/78 95 O2 Del Method O2 Flow Rate FiO2 03/03/22 20:18 Nasal Cannula 2 03/03/22 19:00 Nasal Cannula 2 03/03/22 19:54 Nebulizer 03/03/22 18:42 03/03/22 17:00 Nebulizer 8 03/03/22 15:30 Nasal Cannula 3 03/03/22 16:44 Nasal Cannula 2 03/03/22 16:32 Nasal Cannula 3 03/03/22 15:32 Nasal Cannula 3 03/03/22 15:23 Nasal Cannula 2 03/03/22 15:21 Nasal Cannula 2 03/03/22 15:17 Nasal Cannula 2 Laboratory Results Laboratory Results WBC 6.28 K/ul (4.8-10.8) 03/03/22 15:25 RBC 5.07 M/uL (3.93-5.22) 03/03/22 15:25 Hgb 16.3 g/dl (12.0-16.0) H 03/03/22 15:25 Hct 48.0 % (34.1-44.9) H 03/03/22 15:25 MCV 94.7 fL (80.0-100.0) 03/03/22 15:25 MCH 32.1 pg (25.0-34.0) 03/03/22 15:25 MCHC 34.0 g/dL (32.0-36.0) 03/03/22 15:25 RDW Std Deviation 47.2 fL (36.4-46.3) H 03/03/22 15:25 RDW Coeff of Perry 13.6 % (11.5-14.5) 03/03/22 15:25 Plt Count 199 K/uL (130-400) 03/03/22 15:25 MPV 9.9 fL (9.4-12.3) 03/03/22 15:25 Immature Gran % (Auto) 0.3 % 03/03/22 15:25 Neut % (Auto) 84.0 % 03/03/22 15:25 Lymph % (Auto) 13.5 % 03/03/22 15:25 Kane % (Auto) 1.9 % 03/03/22 15:25 Eos % (Auto) 0.0 % 03/03/22 15:25 Baso % (Auto) 0.3 % 03/03/22 15:25 Neut # (Auto) 5.27 K/uL (1.4-6.5) 03/03/22 15:25 Lymph # (Auto) 0.85 K/uL (1.2-3.4) L 03/03/22 15:25 Kane # (Auto) 0.12 K/uL (0.24-0.82) L 03/03/22 15:25 Eos # (Auto) 0.00 K/uL (0-0.50) 03/03/22 15:25 Baso # (Auto) 0.02 K/uL (0-0.2) 03/03/22 15:25 Immature Gran # (Auto) 0.02 K/uL (0.00-0.02) 03/03/22 15:25 Sodium 137 mmol/L (136-145) 03/03/22 15:25 Potassium 4.4 mmol/L (3.5-5.1) 03/03/22 15:25 Chloride 101 mmol/L (98-107) 03/03/22 15:25 Carbon Dioxide 28 mmol/L (21-32) 03/03/22 15:25 Anion Gap 8 (3-11) 03/03/22 15:25 BUN 18 mg/dl (6-23) 03/03/22 15:25 Creatinine 0.95 mg/dl (0.6-1.2) 03/03/22 15:25 Est Cr Clr Drug Dosing 59.1 ml/min 03/03/22 15:25 Est GFR ( Amer) 71.8 ml/min 03/03/22 15:25 Est GFR (Non-Af Amer) 62.0 ml/min 03/03/22 15:25 BUN/Creatinine Ratio 18.9 (10-20) 03/03/22 15:25 Glucose 126 mg/dl (70-99(Fasting)) H 03/03/22 15:25 Calcium 10.0 mg/dl (8.5-10.1) 03/03/22 15:25 Total Bilirubin 1.0 mg/dl (0.2-1.0) 03/03/22 15:25 AST 12 U/L (13-39) L 03/03/22 15:25 ALT 10 U/L (7-52) 03/03/22 15:25 Alkaline Phosphatase 102 U/L (34-104) 03/03/22 15:25 Troponin I High Sens 5.0 pg/ml (0-14) 03/03/22 15:25 Total Protein 7.2 gm/dl (6.0-8.3) 03/03/22 15:25 Albumin 4.4 gm/dl (3.4-5.0) 03/03/22 15:25 Globulin 2.8 gm/dl (2.5-4.0) 03/03/22 15:25 Albumin/Globulin Ratio 1.6 (0.9-2) 03/03/22 15:25 Lipase 20 U/L (11-82) 03/03/22 15:25 SARS-CoV-2, RNA, NAAT NEGATIVE (NEGATIVE) 03/03/22 16:25 Impressions Chest X-Ray 03/03/22 15:30 XR chest 1V portable CLINICAL HISTORY: Atypical chest pain. COMPARISON STUDY: Chest radiograph December 23, 2021. Chest CT December 25, 2019. FINDINGS: Right shoulder arthroplasty is incidentally noted. No pneumothorax or pleural effusion is present. Cardiac size is normal. There is no evidence for pulmonary edema. There is no consolidation to suggest pneumonia. Emphysema is better depicted on prior chest CT. Calcified mediastinal and bilateral hilar lymph nodes are noted. Suprahilar densities are unchanged with superior retraction of the arden. The appearance of the chest is unchanged. IMPRESSION: No change in appearance of the chest. Emphysema with evidence for a granulomatous process, as described above. ACT 112: Negative or not required by law. Electronically signed by: Carlos Cunha M.D. 03/03/2022 3:47 PM Code Status & VTE Plan Code Status Full code VTE Prophylaxis Plan VTE Prophylaxis will be ordered: Yes PG Care Time/CCT Total # of Minutes Spent Total Time Spent with Patient: Total time spent is greater than 50% in coordination of care (as documented) at patient's floor/unit and/or counseling patient: Coding Level of Care Code 01373 Initial Inpt Care Lvl 3 Diagnoses Acute on chronic respiratory failure with hypoxia J96.21 Acute exacerbation of COPD with asthma J44.1; J45.901 Sarcoidosis D86.9 History of pulmonary embolism Z86.711 Hyperlipidemia E78.5 Anxiety with depression F41.8 Tobacco use disorder F17.200 Compression fracture of body of thoracic vertebra S22.000A
[2022-03-03] MEDS ORDERED: methylPREDNISolone 125 MG/2 ML VIAL IV STA (21:11)
[2022-03-03] MEDS ORDERED: ALBUTEROL HFA 8 GM INHALER INH PRN (22:31)
[2022-03-03] MEDS ORDERED: ONDANSETRON INJ 2 MG/ML 2 ML VIAL IV PRN (22:31)
[2022-03-03] MEDS ORDERED: ACETAMINOPHEN 325 MG TAB PO PRN (22:31)
[2022-03-03] MEDS: GABAPENTIN 600 MG TAB PO SCH (23:32)
[2022-03-03] MEDS: guaiFENesin 600 MG TABCR PO SCH (23:33)
[2022-03-03] MEDS: traZODone HCL 50 MG TAB PO SCH (23:34)
[2022-03-03] MEDS: RIVAROXABAN 20 MG TAB PO SCH (23:34)
[2022-03-03] MEDS: MELOXICAM 7.5 MG TAB PO SCH (23:34)
[2022-03-03] MEDS: CEFEPIME 2,000 MG in SYRINGE 0 ML IV SCH (23:34)
[2022-03-03] MEDS: LORazepam 1 MG TAB PO PRN (23:37)
[2022-03-04] MEDS: methylPREDNISolone 40 MG in SYRINGE 0 ML IV SCH ×3 (05:39→21:15)
[2022-03-04 06:47] LABS: Basophils # (auto) 0.01 K/uL (0-0.2); Basophils % (auto) 0.1 %; Hematocrit (blood only) 44.9 % (34.1-44.9); Immature Granulocytes # (auto) 0.03 K/uL (0.00-0.02); Immature Granulocytes % (auto) 0.4 %; Lymphocytes # (auto) 0.89 K/uL (1.2-3.4); Lymphocytes % (auto) 12.5 %; Mean Corpuscular Hemoglobin 31.8 pg (25.0-34.0); Mean Corpuscular Hgb Conc 33.4 g/dL (32.0-36.0); Mean Corpuscular Volume 95.1 fL (80.0-100.0); Mean Platelet Volume 10.1 fL (9.4-12.3); Monocytes # (auto) 0.18 K/uL (0.24-0.82); Monocytes % (auto) 2.5 %; Neutrophils # (auto) 6.03 K/uL (1.4-6.5); Neutrophils % (auto) 84.5 %; Platelet Count 180 K/uL (130-400); RDW Coefficient of Variation 13.4 % (11.5-14.5); RDW Standard Deviation 47.7 fL (36.4-46.3); Red Blood Count 4.72 M/uL (3.93-5.22); White Blood Count 7.14 K/ul (4.8-10.8)
[2022-03-04 07:10] LABS: INR 1.2 (0.9-1.1); Partial Thromboplastin Ratio 1.2; Partial Thromboplastin Time 31.8 Seconds (21.0-31.0); Prothrombin Time 12.4 Seconds (9.0-12.0)
[2022-03-04] MEDS: ALBUT/IPRATROP 3MG/0.5MG NEB 3 ML VIAL NEB SCH ×4 (07:21→19:28)
[2022-03-04 07:26] LABS: Albumin Globulin Ratio 1.6 (0.9-2); Albumin Level 3.9 gm/dl (3.4-5.0); BUN Creatinine Ratio 27.6 (10-20); Bilirubin,Total 0.7 mg/dl (0.2-1.0); Calcium 9.4 mg/dl (8.5-10.1); Chol HDL Ratio 3.4 (0-5); Creatinine Clr Calc Pharmacy 52.1 ml/min; Est GFR (African American) 69.2 ml/min; Est GFR (Non-African American) 59.7 ml/min; Globulin 2.4 gm/dl (2.5-4.0); Magnesium 2.3 mg/dl (1.7-2.4); Potassium 4.7 mmol/L (3.5-5.1); Total Protein 6.3 gm/dl (6.0-8.3)
[2022-03-04] MEDS: guaiFENesin 600 MG TABCR PO SCH ×2 (08:02→21:16)
[2022-03-04] MEDS: ESCITALOPRAM OXALATE 10 MG TAB PO SCH (08:02)
[2022-03-04] MEDS: GABAPENTIN 600 MG TAB PO SCH ×3 (08:02→21:16)
[2022-03-04] MEDS: UMECLIDINIUM/VILANTEROL 62.5/25MCG 7 PUFFS/INHALER INH SCH (08:03)
[2022-03-04] MEDS: FLUTICASONE FUROATE 100MCG 14 PUFFS/INHALER INH SCH (08:03)
[2022-03-04] MEDS: AZITHROMYCIN 500 MG in DEXTROSE 5% 250 ML IV SCH (08:07)
--- NOTE | 2022-03-04 09:21 | Hospitalist Progress Note ---
Date of Service March 04, 2022 Assessment & Plan (1) Acute on chronic respiratory failure with hypoxia: Plan: Acute on chronic respiratory failure with hypoxia/acute exacerbation of COPD with asthma/sarcoidosis- Given by the ED Solu-Medrol 40 mg IV, Methylprednisolone 40 mg IV every 12 hours Azithromycin 500 mg IV daily plus Cefepime 2 g IV every 12 hours Duonebs every 4 hours while awake and every 2 hours when necessary. Follow sputum gram stain and culture Guaifenesin extended release 12 mg p.o. twice daily Nasal cannula oxygen, titrate to keep pulse ox 94-95% Patient is COVID-19 negative this evening CXR without acute changes has previous granuloma (2) Acute exacerbation of COPD with asthma: (3) Sarcoidosis: Plan: Patient will need a longer tapering course of treatment upon discharge, as I suspect that part of her previous issue with of not returning to baseline may be related to underlying sarcoidosis and severe COPD (4) History of pulmonary embolism: Plan: Continue Xarelto (5) Hyperlipidemia: Plan: fasting lipid panel (6) Anxiety with depression: Plan: Continue escitalopram, lorazepam and trazodone (7) Tobacco use disorder: Plan: Cessation counseling (8) Compression fracture of body of thoracic vertebra: Plan: Patient does have a back brace she wears periodically, that she reports does seem to help her breathing as well Admission and Anticipated Discharge Date Admission Date: March 03, 2022 Subjective Pt with symptoms of fatigue, blood pressures are significantly low, has not new complaints Review of Systems Review of Systems: Mild distress and fatigue no headache, no visual changes no speech or swallowing issues no chest pain, pressure or palpitations Systems shortness of breath at rest no particular cough no abdominal pain, nausea or vomiting, diarrhea or constipation no dysuria, hematuria or frequency no focal joint pain or swelling no back pain, CVA tenderness or radicular pain no bruising, bleeding or rashes no focal signs of weakness or numbness or altered sensation no complaints of anxiety or depression.. Physical Exam Physical Exam: The patient appeared well nourished and normally developed. Vital signs as documented. Head exam is normocephalic atraumatic Neck is without JVD, thyromegaly, or carotid bruits. Lungs are clear to auscultation, no focal loss of breath sounds Cardiac exam, Rhythm is regular.. No murmurs, rubs or gallops. Abdominal exam reveals normal bowel sounds, soft non tender, no masses Extremities are nonedematous and both pedal pulses are present Neurologic exam is alert and oriented, no focal loss of strength or sensation Skin is without bruises or rashes Psychologically is without concerns for anxiety or depression.. Results & Data Results & Data ([facility]) Vital Signs (Past 12 Hours) Vital Signs Temp Pulse Pulse Resp BP BP Pulse Ox 03/04/22 08:28 83 03/04/22 08:28 03/04/22 07:37 97.9 F 84 18 110/56 L 95 03/04/22 07:22 85 22 94 03/04/22 05:10 104 H 03/04/22 04:22 97.9 F 84 20 95/61 L 91 03/03/22 22:37 03/03/22 22:35 97.7 F 104 H 24 128/72 93 03/03/22 22:09 98 H 22 95/50 L 94 03/03/22 22:13 03/03/22 21:29 100 H 23 101/55 L 93 O2 Del Method O2 Flow Rate 03/04/22 08:28 03/04/22 08:28 Nasal Cannula 2 03/04/22 07:37 Nasal Cannula 2 03/04/22 07:22 Nasal Cannula 2 03/04/22 05:10 03/04/22 04:22 Nasal Cannula 2 03/03/22 22:37 Nasal Cannula 2 03/03/22 22:35 Nasal Cannula 2 03/03/22 22:09 Nasal Cannula 2 03/03/22 22:13 Nasal Cannula 2 03/03/22 21:29 Nasal Cannula PG Care Time/CCT Total # of Minutes Spent Total Time Spent with Patient: Total time spent is greater than 50% in coordination of care (as documented) at patient's floor/unit and/or counseling patient: Coding Level of Care Code 43572 Subseq Hosp Care Lvl 2 Diagnoses Acute on chronic respiratory failure with hypoxia J96.21 Acute exacerbation of COPD with asthma J44.1; J45.901 Sarcoidosis D86.9 History of pulmonary embolism Z86.711 Hyperlipidemia E78.5 Anxiety with depression F41.8 Tobacco use disorder F17.200 Compression fracture of body of thoracic vertebra S22.000A
[2022-03-04] MEDS: CEFEPIME 2,000 MG in SYRINGE 0 ML IV SCH ×2 (10:30→23:40)
--- NOTE | 2022-03-04 14:55 | Electrocardiogram Report ---
Test Reason : Blood Pressure : / mmHG Vent. Rate : 104 BPM Atrial Rate : 104 BPM P-R Int : 126 ms QRS Dur : 086 ms QT Int : 356 ms P-R-T Axes : 075 127 072 degrees QTc Int : 468 ms Poor data quality, interpretation may be adversely affected Sinus tachycardia Right axis deviation Abnormal ECG When compared with ECG of 18-DEC-2021 17:04, Nonspecific T wave abnormality has replaced inverted T waves in Anterior leads Confirmed by Colin Ceron ([id number]) on 03/04/2022 2:55:15 PM Referred By: REFERRED SELF Confirmed By:Mario Ceron
[2022-03-04] MEDS: RIVAROXABAN 20 MG TAB PO SCH (16:07)
[2022-03-04] MEDS ORDERED: SODIUM CHLORIDE 0.9% 1000ML 1,000 ML IV SCH (17:30)
[2022-03-04] MEDS: LORazepam 1 MG TAB PO PRN (21:15)
[2022-03-04] MEDS: MELOXICAM 7.5 MG TAB PO SCH (21:15)
[2022-03-04] MEDS: traZODone HCL 50 MG TAB PO SCH (21:16)
[2022-03-05 07:11] LABS: Basophils # (auto) 0.01 K/uL (0-0.2); Basophils % (auto) 0.1 %; Hematocrit (blood only) 42.4 % (34.1-44.9); Hemoglobin 14.4 g/dl (12.0-16.0); Immature Granulocytes # (auto) 0.07 K/uL (0.00-0.02); Immature Granulocytes % (auto) 0.6 %; Lymphocytes % (auto) 9.4 %; Mean Corpuscular Hemoglobin 32.1 pg (25.0-34.0); Mean Corpuscular Volume 94.4 fL (80.0-100.0); Mean Platelet Volume 10.2 fL (9.4-12.3); Monocytes # (auto) 0.38 K/uL (0.24-0.82); Monocytes % (auto) 3.2 %; Neutrophils # (auto) 10.14 K/uL (1.4-6.5); Neutrophils % (auto) 86.7 %; Platelet Count 178 K/uL (130-400); RDW Coefficient of Variation 13.4 % (11.5-14.5); Red Blood Count 4.49 M/uL (3.93-5.22)
[2022-03-05] MEDS: ALBUT/IPRATROP 3MG/0.5MG NEB 3 ML VIAL NEB SCH ×3 (07:15→15:34)
[2022-03-05 07:35] LABS: Albumin Globulin Ratio 1.7 (0.9-2); Albumin Level 3.6 gm/dl (3.4-5.0); BUN Creatinine Ratio 37.9 (10-20); Bilirubin,Total 0.6 mg/dl (0.2-1.0); Creatinine Clr Calc Pharmacy 58.7 ml/min; Est GFR (African American) 79.9 ml/min; Est GFR (Non-African American) 68.9 ml/min; Globulin 2.1 gm/dl (2.5-4.0); Magnesium 2.2 mg/dl (1.7-2.4); Potassium 4.6 mmol/L (3.5-5.1); Total Protein 5.7 gm/dl (6.0-8.3)
[2022-03-05 07:55] LABS: Partial Thromboplastin Ratio 0.9; Partial Thromboplastin Time 25.9 Seconds (21.0-31.0)
[2022-03-05] MEDS: methylPREDNISolone 40 MG in SYRINGE 0 ML IV SCH (08:50)
[2022-03-05] MEDS: GABAPENTIN 600 MG TAB PO SCH ×2 (08:51→13:50)
[2022-03-05] MEDS: UMECLIDINIUM/VILANTEROL 62.5/25MCG 7 PUFFS/INHALER INH SCH (08:51)
[2022-03-05] MEDS: guaiFENesin 600 MG TABCR PO SCH (08:51)
[2022-03-05] MEDS: ESCITALOPRAM OXALATE 10 MG TAB PO SCH (08:51)
[2022-03-05] MEDS: FLUTICASONE FUROATE 100MCG 14 PUFFS/INHALER INH SCH (08:51)
[2022-03-05] MEDS: AZITHROMYCIN 500 MG in DEXTROSE 5% 250 ML IV SCH (08:53)
[2022-03-05] MEDS: CEFEPIME 2,000 MG in SYRINGE 0 ML IV SCH (12:09)
[2022-03-05] MEDS ORDERED: FAMOTIDINE 20 MG in SYRINGE 3 ML IV STA (13:12)
[2022-03-05] MEDS ORDERED: ALUMINUM/MAGNESIUM SUSP 18 ML, LIDOCAINE VISCOUS 2% SOLN 6 ML, BARCODE IDENTIFIER 1 EACH PO ONE (13:30)
[2022-03-05] MEDS: RIVAROXABAN 20 MG TAB PO SCH (16:55)
--- NOTE | 2022-03-05 16:56 | Discharge Summary ---
Date of Service March 05, 2022 Admission HPI Per Admitting Provider The patient is a 66-year-old female with a past medical history including CHF, PE, COPD with asthma, compression fracture of thoracic vertebrae, thoracic back pain, hyperlipidemia, anxiety with depression, tobacco use disorder, chronic respiratory failure with hypoxia, cor pulmonale, status post right TSA and sarcoidosis. She was most recently mated to [facility] from 12/18-12/25/2021 for similar but worse symptoms. With the onset of the symptoms, she decided to present to the emergency department earlier, to receive earlier treatment. She reports that following her previous hospitalization, she did improve, but never returned all the way back to her baseline. She does continue to smoke tobacco. She does wear her oxygen as needed, and has worn it again over the past few days with her breathing exacerbation Principal Diagnosis COPD exacerbation Sarcoidosis Discharge Exam Constitutional WD/WN, vitals as above + frail appearing Respiratory normal respiratory effort Auscultation: + diminished lung sounds (posteriorly); no crackles and no wheezes Cardiovascular RRR, no murmur, no edema Gastrointestinal (Abdomen) normal bowel sounds, soft, nontender, no hepatosplenomegaly Psychiatric A+Ox3, euthymic affect Discharge Data Allergies Allergy/AdvReac Type Severity Reaction Status Date / Time No Known Allergies Allergy Verified 03/03/22 15:54 Consultations 03/03/22 19:48 ED Decision to Admit Stat Hospital Course (1) Acute on chronic respiratory failure with hypoxia: Karine Ruiz is a 66 year old female with COPD and sarcaoidosis admitted to [facility] from March 03 to 2021 due to acute on chronic respiratory failure with hypoxia. She was diagnosed with a COPD exacerbation and possible exacerbation of her sarcoidosis. This was treated with duo nebs and intravenous steroids and she is prescribed a long tapering course of steroids - you will continue on a long 20 day tapering prednisone course on discharge. She was advised to call her PCP or heel nail rasper for a longer course given her sarcoidosis if she starts to feel more short of breath as she tapers. She was also covered for a possible bacterial infection with cefepime and azithromycin (3 day course fo 500mg) - no further antibiotics required on discharge as no significant evidence of a typical pneumonia. She should continue on her routine maintenance inhalers Anoro Ellipta and Flovent as previously prescribed and follow up with pulmonology on discharge. Smoking cessation was discussed in detail. She was advised to call [phone] ([phone]) to help with payment of medications as she reports after last admission the nicotine patches were too expensive and her insurance would not pay for Chantix. Her chronic pain/tightness over the last 2 years appears to be stable. She was started on famotidine 20 mg p.o. daily to see if her symptoms were GI related. Consider referral to orthopedic spine as the pain may be coming from her back. Alternatively this may be related to her sarcoidosis and she was recommend to follow up with pulmonology regarding this. (2) Acute exacerbation of COPD with asthma: (3) Sarcoidosis: (4) History of pulmonary embolism: (5) Hyperlipidemia: (6) Anxiety with depression: (7) Tobacco use disorder: (8) Compression fracture of body of thoracic vertebra: Total Time Total Time Spent Total Time Spent (In Minutes): 40 Discharge Plan Discharge Items Patient Disposition: Home - Self-Care Reason For Visit: ACUTE ON CHRONIC RESP FAILURE WITH HYPOXIA, SARCOI Discharge Diagnosis: COPD exacerbation Sarcoidosis Activity: Resume your previous activity Non-emergency contact: Primary Care Provider and [employer] Call non-emergency contact if: you have any medication questions and your symptoms worsen Follow-up/Referrals: Nichole Farfan CRNP [Primary Care Provider] - Stanford Baxter MD [Physician] - (4-week hospital follow-up appointment /establish care) Diet: Heart Healthy Addtl Attending Provider Instructions: You were admitted to [facility] from March 03 to 2021 due to acute on chronic respiratory failure with hypoxia (low oxygen levels). You were diagnosed with a COPD exacerbation and possible exacerbation of your underlying sarcoidosis. This was treated with duo nebs and intravenous steroids - you will continue on a prednisone taper on discharge. You were also covered for a possible bacterial infection with antibiotics - no further antibiotics required on discharge. Please continue on your usual maintenance inhalers with Anoro Ellipta and Flovent as previously prescribed. Use your albuterol nebulizer regularly 4 times a day for the next 1 to 2 days and then as needed. Smoking cessation is essential. Please call [phone] ([phone]) to help with payment of medications and ongoing although's for this. This is essential to help reduce your risk of readmission. Please follow-up with pulmonology as above -please call the office to try to bring forward your appointment in May. With regards to your chronic pain/tightness. Recommend starting famotidine 20 mg p.o. daily to see if this helps your symptoms. Consider referral to orthopedic spine as this pain may be coming from your back. Alternatively this may be related to your sarcoidosis and recommend follow up with pulmonology regarding this. Pending Studies at Discharge: No Stand-Alone Forms: My [facility], Smoking Cessation Medications and DC Order Prescriptions: New prednisone 10 mg tablet See Rx Instructions .ROUTE .COMPLEX Qty: 50 0RF Rx Instructions: prednisone 10 mg: take 4 tablets (40 mg) daily for 5 days; 3 tablets (30 mg) daily for 5 days; then decrease by 1 tablet every 5 days until finished famotidine 20 mg tablet 20 mg PO DAILY Qty: 30 0RF Continued Flovent HFA 110 mcg/actuation HFA aerosol inhaler 2 puff inhalation BID Qty: 12 5RF trazodone 50 mg tablet 50 mg PO HS Qty: 90 3RF Xarelto 20 mg tablet 20 mg PO HS Qty: 30 5RF lorazepam [Ativan] 1 mg tablet 1 mg PO DAILY PRN (Reason: Anxiety) Qty: 30 3RF albuterol sulfate [Ventolin HFA] 90 mcg/actuation HFA aerosol inhaler 2 puff inhalation QID PRN (Reason: Shortness Of Breath Or Wheezing) Qty: 18 11RF Rx Instructions: PER DR GOINS Anoro Ellipta 62.5-25 mcg/actuation blister with device 1 inh inhalation QAM Qty: 60 5RF meloxicam 7.5 mg tablet 7.5 mg PO QPM Qty: 90 3RF Rx Instructions: PER DR GOINSY escitalopram oxalate 10 mg tablet 10 mg PO DAILY Qty: 90 3RF gabapentin 600 mg tablet 600 mg PO TID Qty: 90 5RF Label Comments: Patients next dose is 03/03 @ 1700 Rx Instructions: Patients next dose is 03/03 @ 1700 albuterol sulfate 2.5 mg /3 mL (0.083 %) solution for nebulization 2.5 mg INHALATION QID PRN (Reason: Shortness Of Breath Or Wheezing) Qty: 270 5RF Discharge Orders: Discharge Order (Routine); Ordered 03/05/22 Ordered By: Vaibhav Aaron Admission Data Admit Date/Time: 03/03/22 20:54 Attending Provider: Vaibhav Aaron Admit Provider: Basilio Cary Primary Care Provider: Nichole Farfan Other Providers: Basilio Cary Other Interventions: Discharge Summary Assessment (RN) Last Done: 03/05/22 16:59 Coding Level of Care Code D/C DAY MANAGEMENT >30 MINS Diagnoses Acute on chronic respiratory failure with hypoxia J96.21 Acute exacerbation of COPD with asthma J44.1; J45.901 Sarcoidosis D86.9 History of pulmonary embolism Z86.711 Hyperlipidemia E78.5 Anxiety with depression F41.8 Tobacco use disorder F17.200 Compression fracture of body of thoracic vertebra S22.000A
== END 2022-03-05 18:10 | disposition home or self-care (01) ==
LOC: ED 15:12 → SUATTDRO 20:54 → INTOOBSV 20:54 → 2S 20:54

== ENCOUNTER 2022-03-16 05:52 | Inpatient (IN) ==
[2022-03-16] MEDS ORDERED: ALBUT/IPRATROP 3MG/0.5MG NEB 3 ML VIAL NEB STA ×2 (06:18→07:29)
[2022-03-16] MEDS ORDERED: NICOTINE 14 MG/24 HR PATCH TD ONE (06:19)
--- NOTE | 2022-03-16 06:23 | Emergency Department Note ---
Impression & Plan Acute exacerbation of chronic obstructive pulmonary disease, OLGUIN (dyspnea on exertion) ED Provider Note NAME: SHMUEL GAAM AGE: 66 SEX: F : 1955 ARRIVES VIA: Ambulance INFORMANT: Patient, EMS ED PROVIDER(S): Alan Aguilar DO CHIEF COMPLAINT: Shortness of breath HPI: 66-year-old who presented to the emergency department via ALS for an evaluation of shortness of breath. The patient does have a long history of COPD. She does continue to use tobacco products. She has had similar episodes multiple times in the past. She states that approximately 3 to 4 days ago she started having difficulty breathing and shortness of breath. She also noticed some chest tightness. She states that she is been having trouble walking to the bathroom and is requiring the help of her significant other because of the severity of her shortness of breath. She has had a cough which is mostly been nonproductive. She denies having any hemoptysis. She denies having any lower extremity swelling. She has not seen her family doctor for the symptoms. She has been using her home nebulizer machine. She used it twice over night. She was treated with 2 treatments which were bronchodilator treatments prior to arrival. She was also treated with IV steroids and aspirin. The patient states her symptoms are mildly improved at this time. She still has very severe shortness of breath with any exertion or even talking. ROS: See above HPI for pertinent positives & negatives. A total of 10 systems reviewed and were otherwise negative. PAST MEDICAL HISTORY: See Below PAST SURGICAL HISTORY: See Below FAMILY HISTORY: See Below SOCIAL HISTORY: See Below HOME MEDICATIONS: See Below ALLERGIES: See Below VITALS: See Below PHYSICAL EXAMINATION: GENERAL: The patient is awake and alert. She is somewhat anxious appearing. EYES: The conjunctivae are clear. The pupils are round and reactive. EARS, NOSE, MOUTH AND THROAT: The nose is without any evidence of any deformity. NECK: The neck is nontender and supple. RESPIRATORY: Diminished breath sounds are noted throughout. Expiratory wheezing was noted in all lung khan. There is conversational dyspnea. Tachypnea was also noted. CARDIOVASCULAR: Tachycardic rate with regular rhythm was noted. There was no definite murmur. GASTROINTESTINAL: The abdomen is soft. Abdomen is nontender. MUSCULOSKELETAL/EXTREMITIES: There is no evidence of gross deformity full range of motion is noted in the hips and shoulders. SKIN: There is no obvious evidence of any rash. There are no petechiae, pallor or cyanosis noted. NEUROLOGIC: Patient is awake alert and oriented x3 MEDICAL DECISION MAKING: A 6-year-old female who presented to the emergency department by ambulance for an evaluation of shortness of breath. The patient has a history of tobacco use as well as COPD. She was treated with breathing treatments prior to arrival by EMS. She used 2 nebulizer treatments at home before calling EMS and the patient was treated with 2 nebulizer treatments here. She received IV steroids prior to arrival. She did receive IV fluids and ordered IV magnesium in the emergency department. She was reevaluated multiple times. The patient continues to have significant shortness of breath and wheezing. I discussed the patient's laboratory and radiographic studies with her. At this time I do not feel that she would be a good candidate for outpatient management. For this reason I will discuss her case with the on-call [facility] hospitalist. Triage Nursing notes reviewed. Prior medical records reviewed Vital Signs: reviewed and remarkable for relative hypoxia and tachycardia. Differential diagnosis: Reactive airway disease, pneumonia, pneumothorax, COPD, CHF, infections, cardiac ischemia, pulmonary embolism, musculoskeletal, gastrointestinal, as well as other pathologies. ER treatment provided: See below Diagnostics interpreted by me: ECG: Obtained in the emergency department. Sinus tachycardia 108 bpm. Nonspecific T wave abnormalities were noted. This was compared to a tracing from March 03, 2022. No changes were noted. Cardiac Monitoring: An order was placed for continuous cardiac monitoring. The monitor shows a rate of 102 bpm with sinus tachycardia Laboratory studies: As stated above and show below. Imaging studies: See below Consultation(s): I discussed this case with Dr. Gutierrez the [facility] hospitalist group. He will evaluate the patient in the emergency department. ED COURSE: Procedures: none Critical Care: I have personally spent greater than 40 minutes of critical care time in the direct management of this patient. This includes bedside care, interpretation of diagnostic studies, and testing, discussion with consultants, patient, and family members, and other required patient management activities. This 40 minutes is in excess of all separately billable procedures. Past Med/Surg History Medical History Acute exacerbation of chronic obstructive pulmonary disease Acute respiratory distress Anxiety and depression Anxiety with depression COPD (chronic obstructive pulmonary disease) History of pulmonary embolism x 2. 1st following shoulder replacement 2018, 2nd 3-4 mo ago -- unk etiology -- on xarelto On home O2 2 LPM PRN Osteoarthritis Osteoporosis Rib pain Sarcoidosis follows with Flo Albright PA-C Scoliosis Thoracic back pain Surgical History H/O hysterectomy for benign disease (10/02/12) History of hip replacement Left PREETI: 09/11/17: SAB x 1 at L3-L4 at [facility] History of right shoulder replacement Hx of colonoscopy Hx of elbow surgery RIGHT Family History Father Myocardial infarction Brother Anxiety COPD (chronic obstructive pulmonary disease) Daughter Anxiety Sister Breast cancer Other Diabetes Kidney disease No family history of adverse response to anesthesia Denies family history of Ovarian cancer Prostate cancer Colorectal cancer Social History Smoking Status: Current every day smoker Tobacco Type: Cigarettes Age Started Using Tobacco: 22; packs per day: 0.75; Cigarettes Per Day: 30-40; Second Hand Exposure: Yes; Hx Alcohol Use: No Hx Substance Use: No Preferred Language: Bengali Communication Ability: Effective Visual Impairment: No Limitations Hearing Ability: Normal Hand Molder Required: No Beliefs That Will Affect Care: None marital status: Current Living Situation: Spouse current occupational status: retired and disabled 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 How many Children do You have: 2 Feels Safe at Home: Yes Childhood Exposure to Second-Hand Smoke: No Dental Care, Regularly: No Physical Activity Frequency: Does not Exercise Seatbelt Use: always Sunscreen Use: No (is not out in the sun much ) Assistive Devices: Cane, Nebulizer, Oxygen - Continuous and Walker Allergies Allergies Allergy/AdvReac Type Severity Reaction Status Date / Time No Known Allergies Allergy Verified 03/03/22 15:54 Home Meds Previous Rx's Medication Instructions Recorded fluticasone propionate 110 2 puff inhalation BID #12 grams 06/28/21 mcg/actuation HFA aerosol inhaler (Flovent HFA) albuterol sulfate 2.5 mg/3 mL 2.5 mg (3 mL) inhalation QID PRN 07/28/21 (0.083 %) solution for nebulization Shortness Of Breath Or Wheezing #270 mL trazodone 50 mg tablet 50 mg PO HS #90 tabs 08/09/21 rivaroxaban 20 mg tablet (Xarelto) 20 mg PO HS #30 tabs 12/13/21 escitalopram oxalate 10 mg tablet 10 mg PO DAILY #90 tabs 01/06/22 gabapentin 600 mg tablet 600 mg PO TID #90 tabs 01/06/22 albuterol sulfate 90 mcg/actuation 2 puff inhalation QID PRN 02/24/22 aerosol inhaler (Ventolin HFA) Shortness Of Breath Or Wheezing #18 grams lorazepam 1 mg tablet (Ativan) 1 mg PO DAILY PRN Anxiety #30 tabs 02/24/22 meloxicam 7.5 mg tablet 7.5 mg PO QPM #90 tabs 03/02/22 umeclidinium 62.5 mcg-vilanterol 1 inh inhalation QAM #60 ea 03/02/22 25 mcg/actuation powdr for inhalation (Anoro Ellipta) famotidine 20 mg tablet 20 mg PO DAILY #30 tabs 03/05/22 prednisone 10 mg tablet See Rx Instructions PO .COMPLEX 03/05/22 #50 tabs Results & Data (ED) Vital Signs Vital Signs - 24 hr 03/16/22 06:02 03/16/22 06:04 03/16/22 06:15 Temperature 37.2 C Temperature Source Oral Pulse Rate 115 H Pulse Rate from SpO2 Sensor Respiratory Rate 32 H Respiratory Effort / Characteristics Short of Breath Tripoding Blood Pressure 134/87 Blood Pressure Mean 102 Pulse Oximetry 96 98 99 Oxygen Delivery Method Nasal Cannula Nasal Cannula Nasal Cannula Oxygen Flow Rate 6 6 Sepsis Recent Fever Within 48 Hours No Sepsis New/Unexplained Change in Mental Status No Sepsis Action Taken by Nursing No Action Required 03/16/22 06:30 03/16/22 07:00 03/16/22 07:00 Temperature Temperature Source Pulse Rate 98 H 101 H Pulse Rate from SpO2 Sensor 101 H Respiratory Rate 23 21 Respiratory Effort / Characteristics Blood Pressure 102/71 108/80 Blood Pressure Mean 81 89 Pulse Oximetry 100 97 Oxygen Delivery Method Nebulizer Oxygen Flow Rate 13 Sepsis Recent Fever Within 48 Hours Sepsis New/Unexplained Change in Mental Status Sepsis Action Taken by Nursing 03/16/22 07:30 03/16/22 08:00 03/16/22 08:01 Temperature Temperature Source Pulse Rate 103 H 101 H Pulse Rate from SpO2 Sensor 103 H 101 H Respiratory Rate 28 H 27 H Respiratory Effort / Characteristics Blood Pressure 105/69 Blood Pressure Mean 81 Pulse Oximetry 96 96 Oxygen Delivery Method Oxygen Flow Rate Sepsis Recent Fever Within 48 Hours Sepsis New/Unexplained Change in Mental Status Sepsis Action Taken by Nursing 03/16/22 08:01 Temperature Temperature Source Pulse Rate 102 H Pulse Rate from SpO2 Sensor 101 H Respiratory Rate 24 Respiratory Effort / Characteristics Blood Pressure Blood Pressure Mean Pulse Oximetry 96 Oxygen Delivery Method Oxygen Flow Rate Sepsis Recent Fever Within 48 Hours Sepsis New/Unexplained Change in Mental Status Sepsis Action Taken by Correction Medications Current Medication List: was personally reviewed by me Laboratory Data Attestation: I reviewed the patient's lab results. Result diagrams: 03/16/22 06:09 03/16/22 06:09 Lab Results 03/16/22 03/16/22 03/16/22 Range/Units 06:08 06:09 06:09 WBC 13.88 H (4.8-10.8) K/ul RBC 5.06 (3.93-5.22) M/uL Hgb 16.1 H (12.0-16.0) g/dl Hct 48.9 H (34.1-44.9) % MCV 96.6 (80.0-100.0) fL MCH 31.8 (25.0-34.0) pg MCHC 32.9 (32.0-36.0) g/dL RDW Std Deviation 50.6 H (36.4-46.3) fL RDW Coeff of Perry 14.3 (11.5-14.5) % Plt Count 153 (130-400) K/uL MPV 9.8 (9.4-12.3) fL Immature Gran % (Auto) 0.4 % Neut % (Auto) 81.2 % Lymph % (Auto) 12.0 % [place] % (Auto) 4.7 % Eos % (Auto) 1.3 % Baso % (Auto) 0.4 % Neut # (Auto) 11.27 H (1.4-6.5) K/uL Lymph # (Auto) 1.67 (1.2-3.4) K/uL [place] # (Auto) 0.65 (0.24-0.82) K/uL Eos # (Auto) 0.18 (0-0.50) K/uL Baso # (Auto) 0.05 (0-0.2) K/uL Immature Gran # (Auto) 0.06 H (0.00-0.02) K/uL PT 11.3 (9.0-12.0) Seconds INR 1.1 (0.9-1.1) APTT 27.6 (21.0-31.0) Seconds PTT Ratio 1.0 VBG pH (7.36-7.41) VBG pCO2 (38-50) mmHg VBG pO2 mmHg VBG HCO3 mmol/L VBG O2 Saturation % VBG Base Excess mEq/L Sodium (136-145) mmol/L Potassium (3.5-5.1) mmol/L Chloride (98-107) mmol/L Carbon Dioxide (21-32) mmol/L Anion Gap (3-11) BUN (6-23) mg/dl Creatinine (0.6-1.2) mg/dl Est Cr Clr Drug Dosing ml/min Est GFR ( Amer) ml/min Est GFR (Non-Af Amer) ml/min BUN/Creatinine Ratio (10-20) Glucose (70-99(Fasting)) mg/dl Calcium (8.5-10.1) mg/dl Total Bilirubin (0.2-1.0) mg/dl AST (13-39) U/L ALT (7-52) U/L Alkaline Phosphatase (34-104) U/L Troponin I High Sens (0-14) pg/ml B-Natriuretic Peptide (0-100) pg/ml Total Protein (6.0-8.3) gm/dl Albumin (3.4-5.0) gm/dl Globulin (2.5-4.0) gm/dl Albumin/Globulin Ratio (0.9-2) SARS-CoV-2 (PCR) NEGATIVE (Negative) Influenza Type A (PCR) Negative (Neg) Influenza Type B (PCR) Negative (Neg) RSV (RT-PCR) Negative (Neg) 03/16/22 03/16/22 03/16/22 Range/Units 06:09 06:09 06:40 WBC (4.8-10.8) K/ul RBC (3.93-5.22) M/uL Hgb (12.0-16.0) g/dl Hct (34.1-44.9) % MCV (80.0-100.0) fL MCH (25.0-34.0) pg MCHC (32.0-36.0) g/dL RDW Std Deviation (36.4-46.3) fL RDW Coeff of Perry (11.5-14.5) % Plt Count (130-400) K/uL MPV (9.4-12.3) fL Immature Gran % (Auto) % Neut % (Auto) % Lymph % (Auto) % [place] % (Auto) % Eos % (Auto) % Baso % (Auto) % Neut # (Auto) (1.4-6.5) K/uL Lymph # (Auto) (1.2-3.4) K/uL [place] # (Auto) (0.24-0.82) K/uL Eos # (Auto) (0-0.50) K/uL Baso # (Auto) (0-0.2) K/uL Immature Gran # (Auto) (0.00-0.02) K/uL PT (9.0-12.0) Seconds INR (0.9-1.1) APTT (21.0-31.0) Seconds PTT Ratio VBG pH 7.35 L (7.36-7.41) VBG pCO2 58 H (38-50) mmHg VBG pO2 55 mmHg VBG HCO3 32 mmol/L VBG O2 Saturation 88.9 % VBG Base Excess 4.7 mEq/L Sodium 139 (136-145) mmol/L Potassium 3.9 (3.5-5.1) mmol/L Chloride 102 (98-107) mmol/L Carbon Dioxide 29 (21-32) mmol/L Anion Gap 8 (3-11) BUN 18 (6-23) mg/dl Creatinine 0.84 (0.6-1.2) mg/dl Est Cr Clr Drug Dosing 62.3 ml/min Est GFR ( Amer) 83.4 ml/min Est GFR (Non-Af Amer) 71.9 ml/min BUN/Creatinine Ratio 21.4 H (10-20) Glucose 98 (70-99(Fasting)) mg/dl Calcium 9.2 (8.5-10.1) mg/dl Total Bilirubin 0.8 (0.2-1.0) mg/dl AST 13 (13-39) U/L ALT 12 (7-52) U/L Alkaline Phosphatase 79 (34-104) U/L Troponin I High Sens 8.0 (0-14) pg/ml B-Natriuretic Peptide 29 (0-100) pg/ml Total Protein 6.6 (6.0-8.3) gm/dl Albumin 4.1 (3.4-5.0) gm/dl Globulin 2.5 (2.5-4.0) gm/dl Albumin/Globulin Ratio 1.6 (0.9-2) SARS-CoV-2 (PCR) (Negative) Influenza Type A (PCR) (Neg) Influenza Type B (PCR) (Neg) RSV (RT-PCR) (Neg) Administered Medications Miscellaneous (Remove Nicoderm Patch) 1 each N/A DAILY@0859 HEATHER Stop: 04/15/22 08:58 Last Admin: 03/16/22 08:27 Dose: Not Given Documented By: ROSALVA Discontinued Medications Albuterol (Albut/Ipratrop 3mg/0.5mg Neb 3 Ml Vial) 3 ml NEB NOW STA; Protocol Stop: 03/16/22 06:19 Last Admin: 03/16/22 06:23 Dose: 3 ml Documented By: LARISSA Albuterol (Albut/Ipratrop 3mg/0.5mg Neb 3 Ml Vial) 3 ml NEB NOW STA; Protocol Stop: 03/16/22 07:30 Last Admin: 03/16/22 07:48 Dose: 3 ml Documented By: ROSALVA Sodium Chloride (Nss 1000ml) 1,000 mls @ 999 mls/hr IV .Q1H1M ONE Stop: 03/16/22 08:32 Last Admin: 03/16/22 07:48 Dose: 999 mls/hr Documented By: ROSALVA Nicotine (Nicotine 14 Mg/24 Hr Patch) 14 mg TD ONE ONE Stop: 03/16/22 06:20 Last Admin: 03/16/22 06:23 Dose: 14 mg Documented By: LARISSA Imaging Data Radiologist's Impression: Chest X-Ray 03/16/22 05:53 XR chest 1V portable HISTORY: 66 years-old Female Dyspnea acute shortness of breath COMPARISON: Chest radiograph 03/03/2022, chest CT 12/24/2021 TECHNIQUE: AP view of the chest FINDINGS: Cardiac silhouette is normal in size. Unchanged bilateral hilar prominence with calcified lymphadenopathy. No pneumothorax, pleural effusion or overt pulmonary edema. Emphysema with chronic reticular nodular densities. Degenerative changes of the spine and left shoulder. Chronic right-sided rib fractures. Right shoulder arthroplasty. IMPRESSION: 1. No acute process. 2. Emphysema with evidence of prior granulomatous disease. ACT 112: Negative or not required by law. The above report was generated using voice recognition software. It may contain grammatical, syntax or spelling errors. Electronically signed by: Vargas Rivers M.D. 03/16/2022 7:10 AM Discharge Plan Visit Data Chief Complaint: Shortness of Breath/Dyspnea ED Provider: Alan Aguilar Discharge Problem: Acute exacerbation of chronic obstructive pulmonary disease, OLGUIN (dyspnea on exertion) Patient Disposition: Being Evaluated by Hospitalist Forms Stand Alone Forms: [facility] [place] Prescriptions Prescriptions: No Action Flovent HFA 110 mcg/actuation HFA aerosol inhaler 2 puff inhalation BID Qty: 12 5RF trazodone 50 mg tablet 50 mg PO HS Qty: 90 3RF Xarelto 20 mg tablet 20 mg PO HS Qty: 30 5RF lorazepam [Ativan] 1 mg tablet 1 mg PO DAILY PRN (Reason: Anxiety) Qty: 30 3RF albuterol sulfate [Ventolin HFA] 90 mcg/actuation HFA aerosol inhaler 2 puff inhalation QID PRN (Reason: Shortness Of Breath Or Wheezing) Qty: 18 11RF Rx Instructions: PER DR GOINS Anoro Ellipta 62.5-25 mcg/actuation blister with device 1 inh inhalation QAM Qty: 60 5RF meloxicam 7.5 mg tablet 7.5 mg PO QPM Qty: 90 3RF Rx Instructions: PER DR MARI escitalopram oxalate 10 mg tablet 10 mg PO DAILY Qty: 90 3RF gabapentin 600 mg tablet 600 mg PO TID Qty: 90 5RF Label Comments: Patients next dose is 03/03 @ 1700 Rx Instructions: Patients next dose is 03/03 @ 1700 albuterol sulfate 2.5 mg /3 mL (0.083 %) solution for nebulization 2.5 mg INHALATION QID PRN (Reason: Shortness Of Breath Or Wheezing) Qty: 270 5RF prednisone 10 mg tablet See Rx Instructions .ROUTE .COMPLEX Qty: 50 0RF Rx Instructions: prednisone 10 mg: take 4 tablets (40 mg) daily for 5 days; 3 tablets (30 mg) daily for 5 days; then decrease by 1 tablet every 5 days until finished famotidine 20 mg tablet 20 mg PO DAILY Qty: 30 0RF Referrals Referrals: Nichole Farfan CRNP [Primary Care Provider] -
[2022-03-16 06:28] LABS: Basophils # (auto) 0.05 K/uL (0-0.2); Basophils % (auto) 0.4 %; Eosinophils # (auto) 0.18 K/uL (0-0.50); Eosinophils % (auto) 1.3 %; Hematocrit (blood only) 48.9 % (34.1-44.9); Hemoglobin 16.1 g/dl (12.0-16.0); Immature Granulocytes # (auto) 0.06 K/uL (0.00-0.02); Immature Granulocytes % (auto) 0.4 %; Lymphocytes # (auto) 1.67 K/uL (1.2-3.4); Mean Corpuscular Hemoglobin 31.8 pg (25.0-34.0); Mean Corpuscular Hgb Conc 32.9 g/dL (32.0-36.0); Mean Corpuscular Volume 96.6 fL (80.0-100.0); Mean Platelet Volume 9.8 fL (9.4-12.3); Monocytes # (auto) 0.65 K/uL (0.24-0.82); Monocytes % (auto) 4.7 %; Neutrophils # (auto) 11.27 K/uL (1.4-6.5); Neutrophils % (auto) 81.2 %; Platelet Count 153 K/uL (130-400); RDW Coefficient of Variation 14.3 % (11.5-14.5); RDW Standard Deviation 50.6 fL (36.4-46.3); Red Blood Count 5.06 M/uL (3.93-5.22); White Blood Count 13.88 K/ul (4.8-10.8)
[2022-03-16 06:48] LABS: INR 1.1 (0.9-1.1); Partial Thromboplastin Time 27.6 Seconds (21.0-31.0); Prothrombin Time 11.3 Seconds (9.0-12.0)
[2022-03-16 06:49] LABS: Base Excess VBG 4.7 mEq/L; HCO3 VBG 32 mmol/L; Oxygen Saturation VBG 88.9 %; PCO2 VBG 58 mmHg (38-50); PO2 VBG 55 mmHg; pH VBG 7.35 (7.36-7.41)
[2022-03-16 06:53] LABS: Albumin Globulin Ratio 1.6 (0.9-2); Albumin Level 4.1 gm/dl (3.4-5.0); BUN Creatinine Ratio 21.4 (10-20); Bilirubin,Total 0.8 mg/dl (0.2-1.0); Calcium 9.2 mg/dl (8.5-10.1); Creatinine Clr Calc Pharmacy 62.3 ml/min; Est GFR (African American) 83.4 ml/min; Est GFR (Non-African American) 71.9 ml/min; Globulin 2.5 gm/dl (2.5-4.0); Potassium 3.9 mmol/L (3.5-5.1); Total Protein 6.6 gm/dl (6.0-8.3)
--- NOTE | 2022-03-16 07:11 | XRay Report ---
XR chest 1V portable HISTORY: 66 years-old Female Dyspnea acute shortness of breath COMPARISON: Chest radiograph 03/03/2022, chest CT 12/24/2021 TECHNIQUE: AP view of the chest FINDINGS: Cardiac silhouette is normal in size. Unchanged bilateral hilar prominence with calcified lymphadenop athy. No pneumothorax, pleural effusion or overt pulmonary edema. Emphysema with chronic reticular no dular densities. Degenerative changes of the spine and left shoulder. Chronic right-sided rib fractur es. Right shoulder arthroplasty. IMPRESSION: 1. No acute process. 2. Emphysema with evidence of prior granulomatous disease. ACT 112: Negative or not required by law. The above report was generated using voice recognition software. It may contain grammatical, syntax o r spelling errors. Electronically signed by: Vargas Rivers M.D. 03/16/2022 7:10 AM
[2022-03-16 07:21] LABS: Influenza A virus by PCR Negative (Neg); Influenza B virus by PCR Negative (Neg); RSV by PCR Negative (Neg); SARS CoV2 RNA(COVID-19) InHosp NEGATIVE (Negative)
[2022-03-16] MEDS ORDERED: SODIUM CHLORIDE 0.9% 1000ML 1,000 ML IV ONE (07:32)
[2022-03-16] MEDS ORDERED: SODIUM CHLORIDE 0.9% 1000ML 500 ML IV ONE (08:31)
[2022-03-16] MEDS: MAGNESIUM SULFATE / D5W 1 GM/100 ML BAG IV SCH ×2 (08:46→10:04)
--- NOTE | 2022-03-16 09:05 | History & Physical Report ---
Date of Service March 16, 2022 Assessment & Plan (1) Acute exacerbation of chronic obstructive pulmonary disease: Plan: 66 y/o female w/ PMHx of copd, chf, 2L home O2, hx of PE on Xarelto, and sarcoidosis who presents for a few days of worsening chest tightness and dyspnea most likely secondary to COPD exacerbation. Lower suspicion for respiratory infection, PE, CHF exacerbation. Also considered sarcoidosis. - IV Rocephin 1g daily - check sputum culture - s/p 125 mg IV Methypred en-route - Methylpred 40mg q8h - scheduled duonebs and PulmCort Respules - flutter valve and incentive spirometry. - Mucinex - follow clinically - continue tobacco cessation (2) Tobacco use disorder: Plan: - current smoker. counseled - starting Wellbutrin - insurance issues w/ nicotine replacement therapy and Chantix as outpatient (3) CHF (congestive heart failure): Plan: last echo w/ EF 60-65 and grade 1 diastolic dysfunction - use IV fluids cautiously (4) Hyperlipidemia: Plan: - continue home regimen (5) Chronic respiratory failure: Plan: - reportedly on 2L home O2 prn (6) Sarcoidosis: Plan: - chronic (7) History of pulmonary embolism: Plan: - continue home Eliquis (8) Anxiety: Plan: - continue home escitalopram - continue home prn lorazepam 1mg daily Plan low Na diet. no iv fluids Xarelto PCU full code History of Present Illness Chief Complaint: dyspnea Primary Care Provider: CLAY Michele 66 y/o female w/ PMHx of copd, chf, 2L home O2, on Xarelto who presents for a few days of worsening dyspnea and chest tightness while breathing x 3 days. She denies fever/chills, otalgia, abdominal pain, N/V, headache, or urinary symptoms. She reports increased cough productive of yellow sputum. She was recently admitted to [facility] for COPD exacerbation from 03/03/22-03/05/22. She was discharged home on oral prednisone taper. During the first few days, she was feeling well and using 2-3L O2 only on a PRN basis. In the past few days, she has needing it continuously. Her has not been ill and she denies covid exposures. She took her home medications yesterday, but not today. She has received multiple duonebs en-route and in the ED. At admission exam, she reported 9/10 severity dyspnea, feeling only slightly better after ED treatments. RR in the upper 20s. On 4L O2. Afternoon rounds: Patient still reports dyspnea, but continued improvement. RR 18-19. On 2.5L O2. ED course: duonebs and 1.5L NSS. IV magnesium. Allergies Allergy/AdvReac Type Severity Reaction Status Date / Time No Known Allergies Allergy Verified 03/03/22 15:54 Home Medications Medication Instructions Recorded Confirmed Type fluticasone propionate 110 2 puff inhalation BID #12 grams 06/28/21 03/03/22 Rx mcg/actuation HFA aerosol inhaler (Flovent HFA) albuterol sulfate 2.5 mg/3 mL 2.5 mg (3 mL) inhalation QID PRN 07/28/21 03/03/22 Rx (0.083 %) solution for nebulization Shortness Of Breath Or Wheezing #270 mL trazodone 50 mg tablet 50 mg PO HS #90 tabs 08/09/21 03/03/22 Rx rivaroxaban 20 mg tablet (Xarelto) 20 mg PO HS #30 tabs 12/13/21 03/03/22 Rx escitalopram oxalate 10 mg tablet 10 mg PO DAILY #90 tabs 01/06/22 03/03/22 Rx gabapentin 600 mg tablet 600 mg PO TID #90 tabs 01/06/22 03/03/22 Rx albuterol sulfate 90 mcg/actuation 2 puff inhalation QID PRN 02/24/22 03/03/22 Rx aerosol inhaler (Ventolin HFA) Shortness Of Breath Or Wheezing #18 grams lorazepam 1 mg tablet (Ativan) 1 mg PO DAILY PRN Anxiety #30 tabs 02/24/22 03/03/22 Rx meloxicam 7.5 mg tablet 7.5 mg PO QPM #90 tabs 03/02/22 03/03/22 Rx umeclidinium 62.5 mcg-vilanterol 1 inh inhalation QAM #60 ea 03/02/22 03/03/22 Rx 25 mcg/actuation powdr for inhalation (Anoro Ellipta) famotidine 20 mg tablet 20 mg PO DAILY #30 tabs 03/05/22 Rx prednisone 10 mg tablet See Rx Instructions PO .COMPLEX 03/05/22 Rx #50 tabs Past Med/Surg History Medical History Acute exacerbation of chronic obstructive pulmonary disease Acute respiratory distress Anxiety and depression Anxiety with depression COPD (chronic obstructive pulmonary disease) History of pulmonary embolism x 2. 1st following shoulder replacement 2018, 2nd 3-4 mo ago -- unk etiology -- on xarelto On home O2 2 LPM PRN Osteoarthritis Osteoporosis Rib pain Sarcoidosis follows with Flo Albright PA-C Scoliosis Thoracic back pain Surgical History H/O hysterectomy for benign disease (10/02/12) History of hip replacement Left PREETI: 09/11/17: SAB x 1 at L3-L4 at [facility] History of right shoulder replacement Hx of colonoscopy Hx of elbow surgery RIGHT Family History Father Myocardial infarction Brother Anxiety COPD (chronic obstructive pulmonary disease) Daughter Anxiety Sister Breast cancer Other Diabetes Kidney disease No family history of adverse response to anesthesia Denies family history of Ovarian cancer Prostate cancer Colorectal cancer Social History Smoking Status: Current every day smoker Tobacco Type: Cigarettes Age Started Using Tobacco: 22; packs per day: 0.75; Cigarettes Per Day: ppd; Second Hand Exposure: Yes; Do You Dip or Chew Tobacco: No; Tobacco Cessation Education Requested by Patient: No Hx Alcohol Use: No Hx Substance Use: Yes Preferred Language: Lithuanian Communication Ability: Effective Visual Impairment: No Limitations Hearing Ability: Normal Dairy Consultant Required: No Beliefs That Will Affect Care: None marital status: Current Living Situation: Alone current occupational status: retired and disabled 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 NAD. Cooperative. HEENT: Atraumatic, normocephalic. EOMI. Oropharynx w/o erythema or exudate. Pulm: Mild accessory muscle use. Mild tachypnea. Able to converse. Mild crackles at mid and lower lobes. Diffuse fine wheezes. Slightly diminished air entry, but decent. Afternoon exam: Improved air entry; louder, lower pitched wheezes. Cardiac: RRR, -mrg. No LE edema. Abdominal: Nontender, nondistended, soft. Integ: Warm, dry intact. Neuro: No focal deficits. Results & Data Results & Data ([facility]) Vital Signs (Past 12 Hours) Vital Signs Temp Pulse Resp BP Pulse Ox O2 Del Method O2 Flow Rate 03/16/22 08:01 102 H 24 96 03/16/22 08:01 105/69 03/16/22 08:00 101 H 27 H 96 03/16/22 07:30 103 H 28 H 96 03/16/22 07:00 101 H 21 97 03/16/22 07:00 108/80 03/16/22 06:30 98 H 23 102/71 100 Nebulizer 13 03/16/22 06:15 99 Nasal Cannula 6 03/16/22 06:04 98 Nasal Cannula 03/16/22 06:02 37.2 C 115 H 32 H 134/87 96 Nasal Cannula 6 Laboratory Results Cardiac Enzymes 03/16/22 03/16/22 Range/Units 06:09 06:09 AST 13 (13-39) U/L Troponin I High Sens 8.0 (0-14) pg/ml B-Natriuretic Peptide 29 (0-100) pg/ml Coagulation 03/16/22 03/16/22 Range/Units 06:09 06:09 PT 11.3 (9.0-12.0) Seconds APTT 27.6 (21.0-31.0) Seconds B-Natriuretic Peptide 29 (0-100) pg/ml CBC 03/16/22 Range/Units 06:09 WBC 13.88 H (4.8-10.8) K/ul RBC 5.06 (3.93-5.22) M/uL Hgb 16.1 H (12.0-16.0) g/dl Hct 48.9 H (34.1-44.9) % Plt Count 153 (130-400) K/uL Neut # (Auto) 11.27 H (1.4-6.5) K/uL Lymph # (Auto) 1.67 (1.2-3.4) K/uL [place] # (Auto) 0.65 (0.24-0.82) K/uL Eos # (Auto) 0.18 (0-0.50) K/uL Baso # (Auto) 0.05 (0-0.2) K/uL Comprehensive Metabolic Panel 03/16/22 Range/Units 06:09 Sodium 139 (136-145) mmol/L Potassium 3.9 (3.5-5.1) mmol/L Chloride 102 (98-107) mmol/L Carbon Dioxide 29 (21-32) mmol/L BUN 18 (6-23) mg/dl Creatinine 0.84 (0.6-1.2) mg/dl Glucose 98 (70-99(Fasting)) mg/dl Calcium 9.2 (8.5-10.1) mg/dl AST 13 (13-39) U/L ALT 12 (7-52) U/L Alkaline Phosphatase 79 (34-104) U/L Total Protein 6.6 (6.0-8.3) gm/dl Albumin 4.1 (3.4-5.0) gm/dl Intake and Output 03/15/22 03/16/22 03/16/22 22:59 06:59 14:59 Intake Total 1000 / 1000 Balance 1000 / 1000 Intake: IV 1000 / 1000 Sodium Chloride 0.9% 1000ML 1, 1000 / 1000 000 ml @ 999 mls/hr IV .Q1H1M ONE Rx#:[id number] Other: Weight 73.3 kg Weight Measurement Method Built in [facility] Diagnostic Findings Chest X-Ray 03/16/22 05:53 XR chest 1V portable HISTORY: 66 years-old Female Dyspnea acute shortness of breath COMPARISON: Chest radiograph 03/03/2022, chest CT 12/24/2021 TECHNIQUE: AP view of the chest FINDINGS: Cardiac silhouette is normal in size. Unchanged bilateral hilar prominence with calcified lymphadenopathy. No pneumothorax, pleural effusion or overt pulmonary edema. Emphysema with chronic reticular nodular densities. Degenerative changes of the spine and left shoulder. Chronic right-sided rib fractures. Right shoulder arthroplasty. IMPRESSION: 1. No acute process. 2. Emphysema with evidence of prior granulomatous disease. ACT 112: Negative or not required by law. The above report was generated using voice recognition software. It may contain grammatical, syntax or spelling errors. Electronically signed by: Vargas Rivers M.D. 03/16/2022 7:10 AM Code Status & VTE Plan Code Status full VTE Prophylaxis Plan VTE Prophylaxis will be ordered: Yes Supervising Physician Co-Signing Physician Notes I personally examined the patient and verified all patel points of history and exam, discussed case, and agree with decision making with Dr Almonte. Very short of breath. Marginally better than this morning whenever she first came in. Vitals noted, in general she is awake and alert appears in mild respiratory distress. HEENT normocephalic atraumatic mucous membranes moist. Lungs diminished breath sounds with diffuse wheezing. Mild conversational dyspnea. COPD exacerbationdesperately in need of smoke cessation. Steroids, antibiotics, supportive care. Educated heavily on smoke cessation, she would like medication to assistnote she succeeded with Chantix before but only a month or so ago it was attempted and not covered. We will give trial of Wellbutrin. Otherwise as above. Resident Activity Tracking Resident Involvement: Resident Care Provided Care Provided: Adult Hospital Medicine
[2022-03-16 10:00] LABS: Appearance Urine Clear (Clear); Bacteria Urine Automated Negative (Negative); Bilirubin Urine Negative (Negative); Blood Urine Negative (Negative); Color Urine Yellow; Glucose Urine UA Negative (Negative); Ketones Urine Negative (Negative); Leukocyte Esterase Urine Negative (Negative); Nitrite Urine Negative (Negative); Protein Urine Trace (Negative); RBC Urine Automated 0-4 /hpf (0-4); Specific Gravity Urine 1.009 (1.000-1.030); Urobilinogen Urine Negative (Negative); WBC Urine Automated 0 /hpf (0-5); pH Urine 5.5 (4.5-7.5)
[2022-03-16] MEDS ORDERED: cefTRIAXone SODIUM 1,000 MG/50 ML BAG IV STA (10:26)
[2022-03-16] MEDS ORDERED: BUDESONIDE 0.25 MG/2 ML VIAL (PULMICORT) NEB STA (11:07)
--- NOTE | 2022-03-16 12:32 | Electrocardiogram Report ---
Test Reason : Blood Pressure : / mmHG Vent. Rate : 108 BPM Atrial Rate : 108 BPM P-R Int : 116 ms QRS Dur : 078 ms QT Int : 312 ms P-R-T Axes : 083 129 076 degrees QTc Int : 418 ms Poor data quality, interpretation may be adversely affected Sinus tachycardia Possible Left atrial enlargement Right axis deviation Abnormal ECG When compared with ECG of 03-MAR-2022 21:11, No significant change was found Confirmed by Alan Stoddard ([id number]) on 03/16/2022 12:31:53 PM Referred By: Confirmed By:Alan Stoddard
[2022-03-16] MEDS ORDERED: ONDANSETRON INJ 2 MG/ML 2 ML VIAL IV PRN (13:29)
[2022-03-16] MEDS ORDERED: ACETAMINOPHEN 325 MG TAB PO PRN (13:29)
[2022-03-16] MEDS: ALBUT/IPRATROP 3MG/0.5MG NEB 3 ML VIAL NEB SCH ×2 (14:26→19:36)
[2022-03-16] MEDS ORDERED: GABAPENTIN 600 MG TAB PO STA (17:50)
[2022-03-16] MEDS: RIVAROXABAN 20 MG TAB PO SCH (18:01)
[2022-03-16] MEDS: methylPREDNISolone 40 MG in SYRINGE 0 ML IV SCH (18:01)
[2022-03-16] MEDS: buPROPion XL 150 MG TABCR PO SCH (20:32)
[2022-03-16] MEDS: guaiFENesin 600 MG TABCR PO SCH (20:32)
[2022-03-16] MEDS: traZODone HCL 50 MG TAB PO SCH (20:33)
[2022-03-16] MEDS: LORazepam 1 MG TAB PO PRN (20:35)
[2022-03-16] MEDS ORDERED: ALBUT/IPRATROP 3MG/0.5MG NEB 3 ML VIAL NEB PRN (20:57)
[2022-03-17] MEDS: methylPREDNISolone 40 MG in SYRINGE 0 ML IV SCH ×3 (01:43→18:01)
[2022-03-17 06:53] LABS: Hematocrit (blood only) 48.8 % (34.1-44.9); Hemoglobin 16.1 g/dl (12.0-16.0); Mean Corpuscular Hemoglobin 31.7 pg (25.0-34.0); Mean Corpuscular Volume 96.1 fL (80.0-100.0); Mean Platelet Volume 9.9 fL (9.4-12.3); Platelet Count 157 K/uL (130-400); RDW Coefficient of Variation 13.7 % (11.5-14.5); RDW Standard Deviation 48.9 fL (36.4-46.3); Red Blood Count 5.08 M/uL (3.93-5.22); White Blood Count 9.29 K/ul (4.8-10.8)
--- NOTE | 2022-03-17 06:58 | Hospitalist Progress Note ---
Date of Service March 17, 2022 Assessment & Plan (1) Acute exacerbation of chronic obstructive pulmonary disease: Plan: 66 y/o female w/ PMHx of copd, chf, 2L home O2, hx of PE on Xarelto, and sarcoidosis who presents for a few days of worsening chest tightness and dyspnea most likely secondary to COPD exacerbation. Lower suspicion for respiratory infection, PE, CHF exacerbation. Also considered sarcoidosis. - IV Rocephin 1g daily - check sputum culture - s/p 125 mg IV Methypred en-route - Methylpred 40mg q8h - scheduled duonebs and PulmCort Respules - flutter valve and incentive spirometry. - Mucinex - follow clinically - continue tobacco cessation (2) Tobacco use disorder: Plan: - current smoker. counseled - starting Wellbutrin - holding off on nicotine patch for now, but will add back on if severe nicotine withdrawal symptoms - insurance issues w/ nicotine replacement therapy and Chantix as outpatient (3) Left ear pain: Plan: - acute. exam deferred at this time (no otoscope in room), will assess at later time - per description, considered eustachian tube dysfunction (4) CHF (congestive heart failure): Plan: last echo w/ EF 60-65 and grade 1 diastolic dysfunction - use IV fluids cautiously (5) Hyperlipidemia: Plan: - continue home regimen (6) Chronic respiratory failure: Plan: - reportedly on 2L home O2 prn (7) Sarcoidosis: Plan: - chronic (8) History of pulmonary embolism: Plan: - continue home Eliquis (9) Anxiety: Plan: - continue home escitalopram - continue home prn lorazepam 1mg daily Plan low Na diet. no iv fluids Xarelto PCU full code Admission and Anticipated Discharge Date Admission Date: March 16, 2022 Supervising Physician Co-Signing Physician Notes I personally examined the patient and verified all patel points of history and exam, discussed case, and agree with decision making with Dr Almonte. Short of breath very slightly better than yesterday. Vitals noted, in general she is awake and alert appears fatigued, but far less respiratory distress. HEENT normocephalic atraumatic mucous membranes moist. Lungs diminished breath sounds with diffuse wheezingwheezing louder than yesterday. Less conversational dyspnea. COPD exacerbationdesperately in need of smoke cessation. Continue steroids, antibiotics, supportive care. Continue to encourage smoke cessation, and started Wellbutrin. She notes that at home all of her cigarettes/etc. have been thrown away. Otherwise as above Subjective Patient was seen at bedside this morning; she states that there has been some improvement in her breathing. She is winded when she gets up to use the restroom, but she prefers current activity level and does not want strict bedrest. She denies other symptoms such as chest pain or abdominal pain, but she does have some left ear pain that started yesterday. She was requesting renewal of nicotine patch qam, but is ok holding off until rediscussion during rounds as currently Wellbutrin is being trialed. Denies cravings/withdrawal symptoms of nicotine at this time. Review of Systems Review of Systems: All systems reviewed & are unremarkable except as noted in HPI & below Physical Exam Physical Exam: General: Grossly A&O. NAD. Cooperative. HEENT: Atraumatic, normocephalic. EOMI. Oropharynx w/o erythema or exudate. Pulm: + wheezes diffusely. Slightly less air movement than 03/16/22 afternoon exam. Bases diminished. Patient appears winded s/p returning from restroom. Cardiac: RRR, -mrg. No LE edema. Abdominal: Nontender, nondistended, soft. Integ: Warm, dry intact. Neuro: No focal deficits. Results & Data Results & Data ([facility]) Vital Signs (Past 12 Hours) Vital Signs Temp Pulse Pulse Resp BP Pulse Ox O2 Del Method 03/16/22 23:00 96 H 03/17/22 01:54 87 18 98 03/16/22 22:49 36.6 C 96 H 20 109/68 95 Room Air 03/16/22 20:39 Nasal Cannula 03/16/22 19:36 85 18 95 Nasal Cannula 03/16/22 19:16 36.5 C 88 20 138/96 95 Nasal Cannula O2 Flow Rate 03/16/22 23:00 03/17/22 01:54 03/16/22 22:49 2 03/16/22 20:39 2 03/16/22 19:36 2 03/16/22 19:16 2 Resident Activity Tracking Resident Involvement: Resident Care Provided Care Provided: Adult Hospital Medicine
[2022-03-17] MEDS: ALBUT/IPRATROP 3MG/0.5MG NEB 3 ML VIAL NEB SCH ×4 (07:02→19:15)
[2022-03-17] MEDS: BUDESONIDE 0.25 MG/2 ML VIAL (PULMICORT) NEB SCH ×2 (07:03→19:15)
[2022-03-17 07:17] LABS: Basophils # (auto) 0.01 K/uL (0-0.2); Basophils % (auto) 0.1 %; Immature Granulocytes # (auto) 0.04 K/uL (0.00-0.02); Immature Granulocytes % (auto) 0.4 %; Lymphocytes # (auto) 0.56 K/uL (1.2-3.4); Monocytes # (auto) 0.26 K/uL (0.24-0.82); Monocytes % (auto) 2.8 %; Neutrophils # (auto) 8.42 K/uL (1.4-6.5); Neutrophils % (auto) 90.7 %
[2022-03-17 07:19] LABS: BUN Creatinine Ratio 24.7 (10-20); Calcium 9.8 mg/dl (8.5-10.1); Creatinine Clr Calc Pharmacy 65.9 ml/min; Est GFR (African American) 92.6 ml/min; Est GFR (Non-African American) 79.9 ml/min; Magnesium 2.6 mg/dl (1.7-2.4); Potassium 4.8 mmol/L (3.5-5.1)
[2022-03-17] MEDS: GABAPENTIN 600 MG TAB PO SCH ×3 (08:38→21:04)
[2022-03-17] MEDS: guaiFENesin 600 MG TABCR PO SCH ×2 (08:38→21:04)
[2022-03-17] MEDS: ESCITALOPRAM OXALATE 10 MG TAB PO SCH (08:38)
[2022-03-17] MEDS: FAMOTIDINE 20 MG TAB PO SCH (08:38)
[2022-03-17] MEDS: cefTRIAXone SODIUM 1,000 MG in DEXTROSE 5% 50 ML IV SCH (12:10)
[2022-03-17] MEDS: RIVAROXABAN 20 MG TAB PO SCH (18:02)
--- NOTE | 2022-03-17 18:07 | Billing Data ---
Date of Service March 17, 2022 Coding Level of Care Code 81020 Subseq Hosp Care Lvl 3
[2022-03-17] MEDS: LORazepam 1 MG TAB PO PRN (19:59)
[2022-03-17] MEDS: traZODone HCL 50 MG TAB PO SCH (21:03)
[2022-03-17] MEDS: buPROPion XL 150 MG TABCR PO SCH (21:04)
[2022-03-18] MEDS: methylPREDNISolone 40 MG in SYRINGE 0 ML IV SCH ×3 (01:43→18:41)
[2022-03-18] MEDS: BUDESONIDE 0.25 MG/2 ML VIAL (PULMICORT) NEB SCH ×2 (07:16→19:30)
[2022-03-18] MEDS: ALBUT/IPRATROP 3MG/0.5MG NEB 3 ML VIAL NEB SCH ×4 (07:17→19:30)
--- NOTE | 2022-03-18 07:28 | Hospitalist Progress Note ---
Date of Service March 18, 2022 Assessment & Plan (1) Acute exacerbation of chronic obstructive pulmonary disease: Plan: 66 y/o female w/ PMHx of copd, chf, 2L home O2, hx of PE on Xarelto, and sarcoidosis who presents for a few days of worsening chest tightness and dyspnea most likely secondary to COPD exacerbation. Lower suspicion for respiratory infection, PE, CHF exacerbation. Also considered sarcoidosis. Acute Exacerbation of COPD - IV Rocephin 1g daily (day 2) - check sputum culture - s/p 125 mg IV Methypred en-route - Methylpred 40mg q8h - scheduled duonebs and PulmCort Respules - flutter valve and incentive spirometry. - Mucinex - follow clinically Tobacco Use Disorder - current smoker. counseled - starting Wellbutrin - holding off on nicotine patch for now, but will add back on if severe nicotine withdrawal symptoms - insurance issues w/ nicotine replacement therapy and Chantix as outpatient Left Ear Pain - acute. exam deferred at this time (no otoscope in room), will assess at later time - per description, considered eustachian tube dysfunction- showed Gallbreath OMT technique to patient CHF last echo w/ EF 60-65 and grade 1 diastolic dysfunction - use IV fluids cautiously HLD - continue home regimen Chronic Respiratory Failure - on 2L O2 at home History of PE - on Eliquis Anxiety - continue home escitalopram - continue home prn lorazepam 1mg daily (2) Tobacco use disorder: (3) Left ear pain: (4) CHF (congestive heart failure): (5) Hyperlipidemia: (6) Chronic respiratory failure: (7) Sarcoidosis: Plan: - chronic (8) History of pulmonary embolism: Plan: - continue home Eliquis (9) Anxiety: Plan low Na diet. no iv fluids Xarelto PCU full code Admission and Anticipated Discharge Date Admission Date: March 16, 2022 Supervising Physician Co-Signing Physician Notes I personally examined the patient and verified all patel points of history and exam, discussed case, and agree with decision making with Dr Pawan zeng of breath about the same, ribs feel tight - notes this has been the case since Tspine fracture, brace helps Vitals noted, in general she is awake and alert appears fatigued, but far less respiratory distress. HEENT normocephalic atraumatic mucous membranes moist. Lungs diminished breath sounds less wheeeze. ost/msk shows b/l Tspine paraspin als high tone/tender/decreased range of motionbalanced ligamentous tension and direct myofascialimproved. COPD exacerbationdesperately in need of smoke cessation. Appears to be showing very slow improvement, certainly no worseningcontinue steroids, antibiotics, supportive care. Continue to encourage smoke cessation, and started Wellbutrin. Somatic dysfunction ribs and thoracic regionOMT as above. Hopefully this will help improve her respiratory mechanics some. Encouraged her to wear her brace at home. Otherwise as above Subjective 66 year old female with a past medical history of CHF, PE, COPD, asthma, tobacco use disorder being managed for COPD exacerbation. No events overnight. States that her dyspnea has been improving. Still has a cough productive of yellow sputum. Appetite is good. Denies chest pain. Discussed smoking cessation, she says that were periods in the past she was able to quit. Starting smoking again 3 years ago secondary to stressors. Review of Systems Review of Systems: As per HPI Results & Data Results & Data ([facility]) Vital Signs (Past 12 Hours) Vital Signs Temp Pulse Pulse Resp BP Pulse Ox O2 Del Method 03/18/22 07:18 87 15 97 Nasal Cannula 03/18/22 07:13 36.7 C 88 24 95/59 L 94 Nasal Cannula 03/18/22 07:00 84 03/18/22 04:38 94 H 03/18/22 03:38 36.7 C 76 20 109/65 95 Room Air 03/17/22 23:37 37 C 88 18 100/62 92 Nasal Cannula 03/17/22 21:09 Nasal Cannula 03/17/22 19:25 36.7 C 83 18 107/72 98 Nasal Cannula O2 Flow Rate 03/18/22 07:18 2 03/18/22 07:13 03/18/22 07:00 03/18/22 04:38 03/18/22 03:38 03/17/22 23:37 03/17/22 21:09 2 03/17/22 19:25 Resident Activity Tracking Resident Involvement: Resident Care Provided Care Provided: Adult Hospital Medicine
[2022-03-18 08:30] LABS: Hematocrit (blood only) 46.4 % (34.1-44.9); Hemoglobin 15.7 g/dl (12.0-16.0); Mean Corpuscular Hemoglobin 32.2 pg (25.0-34.0); Mean Corpuscular Hgb Conc 33.8 g/dL (32.0-36.0); Mean Corpuscular Volume 95.3 fL (80.0-100.0); Mean Platelet Volume 9.8 fL (9.4-12.3); Platelet Count 174 K/uL (130-400); RDW Coefficient of Variation 13.8 % (11.5-14.5); RDW Standard Deviation 48.7 fL (36.4-46.3); Red Blood Count 4.87 M/uL (3.93-5.22); White Blood Count 11.13 K/ul (4.8-10.8)
[2022-03-18 08:54] LABS: BUN Creatinine Ratio 31.4 (10-20); Calcium 9.3 mg/dl (8.5-10.1); Creatinine Clr Calc Pharmacy 59.7 ml/min; Est GFR (Non-African American) 69.9 ml/min; Magnesium 2.2 mg/dl (1.7-2.4); Potassium 4.4 mmol/L (3.5-5.1)
[2022-03-18] MEDS: FAMOTIDINE 20 MG TAB PO SCH (09:10)
[2022-03-18] MEDS: ESCITALOPRAM OXALATE 10 MG TAB PO SCH (09:10)
[2022-03-18] MEDS: guaiFENesin 600 MG TABCR PO SCH ×2 (09:11→20:07)
[2022-03-18] MEDS: GABAPENTIN 600 MG TAB PO SCH ×3 (09:11→20:08)
[2022-03-18] MEDS: cefTRIAXone SODIUM 1,000 MG in DEXTROSE 5% 50 ML IV SCH (11:40)
--- NOTE | 2022-03-18 16:54 | Billing Data ---
Date of Service March 18, 2022 Coding Level of Care Code 08593 Subseq Hosp Care Lvl 3
--- NOTE | 2022-03-18 16:54 | Hospitalist Progress Note ---
Date of Service March 18, 2022 Assessment & Plan Admission and Anticipated Discharge Date Admission Date: March 16, 2022 Results & Data Results & Data ([facility]) Vital Signs (Past 12 Hours) Vital Signs Temp Pulse Pulse Resp BP Pulse Ox Pulse Ox 03/18/22 15:28 91 H 20 96 03/18/22 15:21 98.3 F 76 22 112/76 89 L 03/18/22 13:00 95 03/18/22 11:12 85 14 100 03/18/22 11:04 98.1 F 83 22 104/71 95 03/18/22 10:00 03/18/22 07:18 87 15 97 03/18/22 07:13 98.1 F 88 24 95/59 L 94 03/18/22 07:00 84 O2 Del Method O2 Del Method O2 Flow Rate O2 Flow Rate 03/18/22 15:28 Nasal Cannula 2 03/18/22 15:21 Nasal Cannula 2 03/18/22 13:00 Nasal Cannula 2 03/18/22 11:12 Nasal Cannula 2 03/18/22 11:04 Nasal Cannula 03/18/22 10:00 Nasal Cannula 2 03/18/22 07:18 Nasal Cannula 2 03/18/22 07:13 Nasal Cannula 03/18/22 07:00 PG Care Time/CCT Total # of Minutes Spent Total Time Spent with Patient: Total time spent is greater than 50% in coordination of care (as documented) at patient's floor/unit and/or counseling patient: Coding Level of Care Code None CPT Codes Musculoskeletal - Musculoskeletal: 50285 Osteo Teryr Tr 1-2 Body regions ([id number])
[2022-03-18] MEDS: RIVAROXABAN 20 MG TAB PO SCH (17:45)
[2022-03-18] MEDS: buPROPion XL 150 MG TABCR PO SCH (20:07)
[2022-03-18] MEDS: traZODone HCL 50 MG TAB PO SCH (20:07)
[2022-03-18] MEDS: LORazepam 1 MG TAB PO PRN (20:10)
[2022-03-19] MEDS: methylPREDNISolone 40 MG in SYRINGE 0 ML IV SCH ×4 (02:42→17:43)
--- NOTE | 2022-03-19 07:14 | Hospitalist Progress Note ---
Date of Service March 19, 2022 Assessment & Plan (1) Acute exacerbation of chronic obstructive pulmonary disease: Plan: 66 y/o female w/ PMHx of copd, chf, 2L home O2, hx of PE on Xarelto, and sarcoidosis who presents for a few days of worsening chest tightness and dyspnea most likely secondary to COPD exacerbation. Lower suspicion for respiratory infection, PE, CHF exacerbation. Also considered sarcoidosis. Patient is slowly improving clinically. Encouraged IS. Will clarify home med list with patient and optimize prior to discharge to avoid rehospitalization. Encourage smoking cessation and close f/u following discharge. Acute Exacerbation of COPD - IV Rocephin 1g daily (day 3) - check sputum culture - s/p 125 mg IV Methypred en-route - Methylpred 40mg q8h - scheduled duonebs and PulmCort Respules - flutter valve and incentive spirometry. - Mucinex - follow clinically Tobacco Use Disorder - current smoker. counseled - starting Wellbutrin - holding off on nicotine patch for now, but will add back on if severe nicotine withdrawal symptoms - insurance issues w/ nicotine replacement therapy and Chantix as outpatient Left Ear Pain - acute. exam deferred at this time (no otoscope in room), will assess at later time - per description, considered eustachian tube dysfunction- showed Gallbreath OMT technique to patient CHF last echo w/ EF 60-65 and grade 1 diastolic dysfunction - use IV fluids cautiously HLD - continue home regimen Chronic Respiratory Failure - on 2L O2 at home History of PE - on Eliquis Anxiety - continue home escitalopram - continue home prn lorazepam 1mg daily (2) Tobacco use disorder: (3) Left ear pain: (4) CHF (congestive heart failure): (5) Hyperlipidemia: (6) Chronic respiratory failure: (7) Sarcoidosis: Plan: - chronic (8) History of pulmonary embolism: Plan: - continue home Eliquis (9) Anxiety: Plan low Na diet. no iv fluids Xarelto PCU full code Admission and Anticipated Discharge Date Admission Date: March 16, 2022 Supervising Physician Co-Signing Physician Notes I personally examined the patient and verified all patel points of history and exam, discussed case, and agree with decision making with Dr Avendano SOB slowly improving. OLGUIN sstill worse than at rest Vitals noted, in general she is awake and alert appears fatigued, but far less respiratory distress. HEENT normocephalic atraumatic mucous membranes moist. breathing unlabored no accessory muscles good effort COPD exacerbationdesperately in need of smoke cessation. Appears to be showing very slow improvement, continue current plan, allow time Otherwise as above Subjective 66 year old female with a past medical history of CHF, PE, COPD, asthma, tobacco use disorder being managed for COPD exacerbation. No events overnight. States that her dyspnea has been slowly improving, but she feels she still has a way to go. This is her third hospitalization in a short period of time. She notes that usually after about 3 days of being home she will start to feel worse again. Has not been able to see a clinical courier - is sc heduled for May. Still has a cough productive of yellow sputum. Patient is interested in smoking cessation. Review of Systems Review of Systems: See above. Physical Exam Physical Exam: General: Grossly A&O. NAD. Cooperative. HEENT: Atraumatic, normocephalic. EOMI. Pulm: + wheezes diffusely - minimal improvement with coughing. Bases diminished. Cardiac: RRR, -mrg. No LE edema. Integ: Warm, dry intact. Neuro: No focal deficits. Results & Data Results & Data ([facility]) Vital Signs (Past 12 Hours) Vital Signs Temp Pulse Resp BP Pulse Ox O2 Del Method O2 Flow Rate 03/19/22 00:43 Nasal Cannula 2 03/18/22 23:21 36.7 C 86 94 H 91/53 L 16 L 03/18/22 19:30 84 18 95 Nasal Cannula 2 Laboratory Results 03/19/22 03/19/22 Range/Units 08:16 08:16 WBC 9.07 (4.8-10.8) K/ul RBC 4.99 (3.93-5.22) M/uL Hgb 15.6 (12.0-16.0) g/dl Hct 47.7 H (34.1-44.9) % MCV 95.6 (80.0-100.0) fL MCH 31.3 (25.0-34.0) pg MCHC 32.7 (32.0-36.0) g/dL RDW Std Deviation 49.2 H (36.4-46.3) fL RDW Coeff of Perry 13.9 (11.5-14.5) % Plt Count 176 (130-400) K/uL MPV 10.1 (9.4-12.3) fL Immature Gran % (Auto) 0.2 % Neut % (Auto) 83.3 % Lymph % (Auto) 11.8 % [place] % (Auto) 4.6 % Eos % (Auto) 0.0 % Baso % (Auto) 0.1 % Neut # (Auto) 7.55 H (1.4-6.5) K/uL Lymph # (Auto) 1.07 L (1.2-3.4) K/uL [place] # (Auto) 0.42 (0.24-0.82) K/uL Eos # (Auto) 0.00 (0-0.50) K/uL Baso # (Auto) 0.01 (0-0.2) K/uL Immature Gran # (Auto) 0.02 (0.00-0.02) K/uL Sodium 138 (136-145) mmol/L Potassium 4.2 (3.5-5.1) mmol/L Chloride 99 (98-107) mmol/L Carbon Dioxide 35 H (21-32) mmol/L Anion Gap 4 (3-11) BUN 29 H (6-23) mg/dl Creatinine 0.88 (0.6-1.2) mg/dl Est Cr Clr Drug Dosing 58.1 ml/min Est GFR ( Amer) 78.8 ml/min Est GFR (Non-Af Amer) 68.0 ml/min BUN/Creatinine Ratio 33.0 H (10-20) Glucose 103 H (70-99(Fasting)) mg/dl Calcium 9.6 (8.5-10.1) mg/dl Total Bilirubin 0.8 (0.2-1.0) mg/dl AST 13 (13-39) U/L ALT 16 (7-52) U/L Alkaline Phosphatase 68 (34-104) U/L Total Protein 6.2 (6.0-8.3) gm/dl Albumin 3.8 (3.4-5.0) gm/dl Globulin 2.4 L (2.5-4.0) gm/dl Albumin/Globulin Ratio 1.6 (0.9-2) Resident Activity Tracking Resident Involvement: Resident Care Provided Care Provided: [facility] Medicine
[2022-03-19] MEDS: ALBUT/IPRATROP 3MG/0.5MG NEB 3 ML VIAL NEB SCH ×4 (07:35→19:23)
[2022-03-19] MEDS: BUDESONIDE 0.25 MG/2 ML VIAL (PULMICORT) NEB SCH ×2 (07:35→19:23)
[2022-03-19] MEDS: guaiFENesin 600 MG TABCR PO SCH ×2 (08:01→20:06)
[2022-03-19] MEDS: GABAPENTIN 600 MG TAB PO SCH ×3 (08:01→20:06)
[2022-03-19] MEDS: FAMOTIDINE 20 MG TAB PO SCH (08:01)
[2022-03-19] MEDS: ESCITALOPRAM OXALATE 10 MG TAB PO SCH (08:02)
[2022-03-19 09:15] LABS: Basophils # (auto) 0.01 K/uL (0-0.2); Basophils % (auto) 0.1 %; Hematocrit (blood only) 47.7 % (34.1-44.9); Hemoglobin 15.6 g/dl (12.0-16.0); Immature Granulocytes # (auto) 0.02 K/uL (0.00-0.02); Immature Granulocytes % (auto) 0.2 %; Lymphocytes # (auto) 1.07 K/uL (1.2-3.4); Lymphocytes % (auto) 11.8 %; Mean Corpuscular Hemoglobin 31.3 pg (25.0-34.0); Mean Corpuscular Hgb Conc 32.7 g/dL (32.0-36.0); Mean Corpuscular Volume 95.6 fL (80.0-100.0); Mean Platelet Volume 10.1 fL (9.4-12.3); Monocytes # (auto) 0.42 K/uL (0.24-0.82); Monocytes % (auto) 4.6 %; Neutrophils # (auto) 7.55 K/uL (1.4-6.5); Neutrophils % (auto) 83.3 %; Platelet Count 176 K/uL (130-400); RDW Coefficient of Variation 13.9 % (11.5-14.5); RDW Standard Deviation 49.2 fL (36.4-46.3); Red Blood Count 4.99 M/uL (3.93-5.22); White Blood Count 9.07 K/ul (4.8-10.8)
[2022-03-19 09:19] LABS: Albumin Globulin Ratio 1.6 (0.9-2); Albumin Level 3.8 gm/dl (3.4-5.0); Bilirubin,Total 0.8 mg/dl (0.2-1.0); Calcium 9.6 mg/dl (8.5-10.1); Creatinine Clr Calc Pharmacy 58.1 ml/min; Est GFR (African American) 78.8 ml/min; Globulin 2.4 gm/dl (2.5-4.0); Potassium 4.2 mmol/L (3.5-5.1); Total Protein 6.2 gm/dl (6.0-8.3)
[2022-03-19] MEDS: cefTRIAXone SODIUM 1,000 MG in DEXTROSE 5% 50 ML IV SCH (11:43)
--- NOTE | 2022-03-19 15:15 | Billing Data ---
Date of Service March 19, 2022 Coding Level of Care Code 05213 Subseq Hosp Care Lvl 3
[2022-03-19] MEDS: RIVAROXABAN 20 MG TAB PO SCH (17:17)
[2022-03-19] MEDS: LORazepam 1 MG TAB PO PRN (20:06)
[2022-03-19] MEDS: traZODone HCL 50 MG TAB PO SCH (20:06)
[2022-03-19] MEDS: buPROPion XL 150 MG TABCR PO SCH (20:06)
[2022-03-20] MEDS: methylPREDNISolone 40 MG in SYRINGE 0 ML IV SCH ×3 (02:32→18:06)
--- NOTE | 2022-03-20 06:53 | Hospitalist Progress Note ---
Date of Service March 20, 2022 Assessment & Plan (1) Acute exacerbation of chronic obstructive pulmonary disease: Plan: 66 y/o female w/ PMHx of COPD on 2 L home O2, HFpEF, PE on Xarelto, and sarcoidosis who presents for a few days of worsening chest tightness and dyspnea most likely secondary to COPD exacerbation who is slowly clinically improving. Acute Exacerbation of COPD Patient has a history of COPD on 2L NC at home. Patient is a current smoker and has had 3 exacerbations requiring hospitalization the past few months. She is on Flovent (ICS), Anoro Ellipta (LABA/LAMA), and albuterol PRN at home. Her currently symptoms are likely due to a COPD exacerbation. Her progress has been slow, but she does have severe COPD. Continue with current regimen. Goal is clinical improvement prior to discharge. [] IV ceft 1g QD (day 4) [] f/u sputum cx [] methylpred 40 mg Q8 [] scheduled duonebs and PulmCort Respules [] encourage ambulation, flutter valve, and IS [] Mucinex Hyperkalemia/Hypercapnia Patient had normal potassium (4.2) and CO2 (32) levels upon admission. Her CO2 has continued to climb and is 38 today. Her potassium also jumped from 4.2 to 5.3 today. Will repeat VBG to make sure her hypercapnia has not worsened, but rising bicarb levels are likely due to compensation of the kidneys. If VBG shows significant hypercapnia can consider intermittent BiPAP. Will also repeat BMP at 15:00. [] BMP and VBG at 15:00 Tobacco Use Disorder Patient current smoker. counseled on cessation. Started wellbutrin. Can consider nicotine patch if needed for withdrawal symptoms. Previously had insurance issues w/ nicotine replacement therapy and Chantix as outpatient [] smoking cessation on d/c HFpEF Last echo w/ EF 60-65 and grade 1 diastolic dysfunction. Can use IV fluids cautiously HLD continue home regimen Chronic Respiratory Failure on 2L O2 at home History of PE on Eliquis Anxiety continue home escitalopram QD and prn lorazepam 1mg daily (2) Tobacco use disorder: (3) Left ear pain: Plan: Left Ear Pain - acute. exam deferred at this time (no otoscope in room), will assess at later time - per description, considered eustachian tube dysfunction- showed Regla OMT technique to patient (4) CHF (congestive heart failure): (5) Hyperlipidemia: (6) Chronic respiratory failure: (7) Sarcoidosis: Plan: - chronic (8) History of pulmonary embolism: Plan: - continue home Eliquis (9) Anxiety: Plan low Na diet. no iv fluids Xarelto PCU full code Admission and Anticipated Discharge Date Admission Date: March 16, 2022 Supervising Physician Co-Signing Physician Notes I personally examined the patient and verified all patel points of history and exam, discussed case, and agree with decision making with Dr Avendano Feeling betterwhen asking how she feels now compared to a normal day or even a good day at home, she does have a hard time trying to decide how she feels compared to her baselineas she definitely seems to be improving. That said, she notes she is definitely not ready to go home yet. Still significant dyspnea on exertion. She notes even short of breath walking around the room. Asking her specifically what she does at homeshe answers "not much" and notes that probably it is only about 10 feet from her couch to the bathroom at home as well, and really tries to minimize trips so as to minimize exertion. Vitals noted, in general she is awake and alert appears fatigued, but far less respiratory distress. HEENT normocephalic atraumatic mucous membranes moist. breathing unlabored no accessory muscles good effort a little bit improved air entry scattered harsh wheezesbut slowly improving. Osteopathic/musculoskeletal shows right greater than left intercostal and thoracic muscles to be high tone, decreased range of motionbalanced ligamentous tension and direct myofascia lsome improvement. Patient tolerated well. COPD exacerbationdesperately in need of smoke cessation. Appears to be showing very slow improvement, continue steroids and antibiotics, consider change back to atypical coverage, allow time Somatic dysfunction ribs/thoracic regionOMT as above. Otherwise as above Subjective 66 year old female with a past medical history of CHF, PE, COPD, asthma, tobacco use disorder being managed for COPD exacerbation. No events overnight. She notes that she feels about the same as yesterday with continued cough and dyspnea on exertion. Review of Systems Review of Systems: See above. Physical Exam Physical Exam: General: Grossly A&O. NAD. Cooperative. HEENT: Atraumatic, normocephalic. EOMI. Pulm: + wheezes diffusely. Cardiac: RRR, -mrg. No LE edema. Integ: Warm, dry intact. Neuro: No focal deficits. Results & Data Results & Data ([facility]) Vital Signs (Past 12 Hours) Vital Signs Temp Pulse Resp BP Pulse Ox O2 Del Method O2 Flow Rate 03/19/22 20:00 Nasal Cannula 2 03/19/22 22:35 36.5 C 79 16 94/57 L 92 Nasal Cannula 03/19/22 19:23 18 95 Nasal Cannula 2 Laboratory Results 03/20/22 03/20/22 03/19/22 Range/Units 07:01 07:01 08:16 WBC 7.15 9.07 (4.8-10.8) K/ul RBC 4.91 4.99 (3.93-5.22) M/uL Hgb 15.5 15.6 (12.0-16.0) g/dl Hct 47.3 H 47.7 H (34.1-44.9) % MCV 96.3 95.6 (80.0-100.0) fL MCH 31.6 31.3 (25.0-34.0) pg MCHC 32.8 32.7 (32.0-36.0) g/dL RDW Std Deviation 49.0 H 49.2 H (36.4-46.3) fL RDW Coeff of [place] 13.7 13.9 (11.5-14.5) % Plt Count 148 176 (130-400) K/uL MPV 9.7 10.1 (9.4-12.3) fL Immature Gran % (Auto) 0.2 % Neut % (Auto) 83.3 % Lymph % (Auto) 11.8 % [place] % (Auto) 4.6 % Eos % (Auto) 0.0 % Baso % (Auto) 0.1 % Neut # (Auto) 7.55 H (1.4-6.5) K/uL Lymph # (Auto) 1.07 L (1.2-3.4) K/uL [place] # (Auto) 0.42 (0.24-0.82) K/uL Eos # (Auto) 0.00 (0-0.50) K/uL Baso # (Auto) 0.01 (0-0.2) K/uL Immature Gran # (Auto) 0.02 (0.00-0.02) K/uL Sodium 138 (136-145) mmol/L Potassium 5.3 H D (3.5-5.1) mmol/L Chloride 98 (98-107) mmol/L Carbon Dioxide 38 H (21-32) mmol/L Anion Gap 2 L (3-11) BUN 29 H (6-23) mg/dl Creatinine 0.91 (0.6-1.2) mg/dl Est Cr Clr Drug Dosing 56.2 ml/min Est GFR ( Amer) 75.7 ml/min Est GFR (Non-Af Amer) 65.3 ml/min BUN/Creatinine Ratio 31.9 H (10-20) Glucose 121 H (70-99(Fasting)) mg/dl Calcium 9.7 (8.5-10.1) mg/dl Magnesium 2.4 (1.7-2.4) mg/dl Total Bilirubin 0.8 (0.2-1.0) mg/dl AST 11 L (13-39) U/L ALT 18 (7-52) U/L Alkaline Phosphatase 67 (34-104) U/L Total Protein 6.1 (6.0-8.3) gm/dl Albumin 3.8 (3.4-5.0) gm/dl Globulin 2.3 L (2.5-4.0) gm/dl Albumin/Globulin Ratio 1.7 (0.9-2) 03/19/22 Range/Units 08:16 WBC (4.8-10.8) K/ul RBC (3.93-5.22) M/uL Hgb (12.0-16.0) g/dl Hct (34.1-44.9) % MCV (80.0-100.0) fL MCH (25.0-34.0) pg MCHC (32.0-36.0) g/dL RDW Std Deviation (36.4-46.3) fL RDW Coeff of [place] (11.5-14.5) % Plt Count (130-400) K/uL MPV (9.4-12.3) fL Immature Gran % (Auto) % Neut % (Auto) % Lymph % (Auto) % [place] % (Auto) % Eos % (Auto) % Baso % (Auto) % Neut # (Auto) (1.4-6.5) K/uL Lymph # (Auto) (1.2-3.4) K/uL [place] # (Auto) (0.24-0.82) K/uL Eos # (Auto) (0-0.50) K/uL Baso # (Auto) (0-0.2) K/uL Immature Gran # (Auto) (0.00-0.02) K/uL Sodium 138 (136-145) mmol/L Potassium 4.2 (3.5-5.1) mmol/L Chloride 99 (98-107) mmol/L Carbon Dioxide 35 H (21-32) mmol/L Anion Gap 4 (3-11) BUN 29 H (6-23) mg/dl Creatinine 0.88 (0.6-1.2) mg/dl Est Cr Clr Drug Dosing 58.1 ml/min Est GFR ( Amer) 78.8 ml/min Est GFR (Non-Af Amer) 68.0 ml/min BUN/Creatinine Ratio 33.0 H (10-20) Glucose 103 H (70-99(Fasting)) mg/dl Calcium 9.6 (8.5-10.1) mg/dl Magnesium (1.7-2.4) mg/dl Total Bilirubin 0.8 (0.2-1.0) mg/dl AST 13 (13-39) U/L ALT 16 (7-52) U/L Alkaline Phosphatase 68 (34-104) U/L Total Protein 6.2 (6.0-8.3) gm/dl Albumin 3.8 (3.4-5.0) gm/dl Globulin 2.4 L (2.5-4.0) gm/dl Albumin/Globulin Ratio 1.6 (0.9-2) Resident Activity Tracking Resident Involvement: Resident Care Provided Care Provided: Adult Hospital Medicine
[2022-03-20] MEDS: BUDESONIDE 0.25 MG/2 ML VIAL (PULMICORT) NEB SCH ×2 (07:16→19:30)
[2022-03-20 07:17] LABS: Hematocrit (blood only) 47.3 % (34.1-44.9); Hemoglobin 15.5 g/dl (12.0-16.0); Mean Corpuscular Hemoglobin 31.6 pg (25.0-34.0); Mean Corpuscular Hgb Conc 32.8 g/dL (32.0-36.0); Mean Corpuscular Volume 96.3 fL (80.0-100.0); Mean Platelet Volume 9.7 fL (9.4-12.3); Platelet Count 148 K/uL (130-400); RDW Coefficient of Variation 13.7 % (11.5-14.5); Red Blood Count 4.91 M/uL (3.93-5.22); White Blood Count 7.15 K/ul (4.8-10.8)
[2022-03-20] MEDS: ALBUT/IPRATROP 3MG/0.5MG NEB 3 ML VIAL NEB SCH ×4 (07:17→19:30)
[2022-03-20 08:15] LABS: Albumin Globulin Ratio 1.7 (0.9-2); Albumin Level 3.8 gm/dl (3.4-5.0); BUN Creatinine Ratio 31.9 (10-20); Bilirubin,Total 0.8 mg/dl (0.2-1.0); Calcium 9.7 mg/dl (8.5-10.1); Creatinine Clr Calc Pharmacy 56.2 ml/min; Est GFR (African American) 75.7 ml/min; Est GFR (Non-African American) 65.3 ml/min; Globulin 2.3 gm/dl (2.5-4.0); Magnesium 2.4 mg/dl (1.7-2.4); Potassium 5.3 mmol/L (3.5-5.1); Total Protein 6.1 gm/dl (6.0-8.3)
[2022-03-20] MEDS: guaiFENesin 600 MG TABCR PO SCH ×2 (08:54→20:49)
[2022-03-20] MEDS: ESCITALOPRAM OXALATE 10 MG TAB PO SCH (08:54)
[2022-03-20] MEDS: GABAPENTIN 600 MG TAB PO SCH ×3 (08:54→20:49)
[2022-03-20] MEDS: FAMOTIDINE 20 MG TAB PO SCH (08:56)
[2022-03-20] MEDS: cefTRIAXone SODIUM 1,000 MG in DEXTROSE 5% 50 ML IV SCH (11:39)
[2022-03-20 15:33] LABS: Base Excess VBG 9.9 mEq/L; HCO3 VBG 36 mmol/L; Oxygen Saturation VBG 84.4 %; PCO2 VBG 53 mmHg (38-50); PO2 VBG 51 mmHg; pH VBG 7.44 (7.36-7.41)
[2022-03-20 15:50] LABS: BUN Creatinine Ratio 25.4 (10-20); Calcium 9.5 mg/dl (8.5-10.1); Creatinine Clr Calc Pharmacy 44.9 ml/min; Est GFR (African American) 57.6 ml/min; Est GFR (Non-African American) 49.7 ml/min; Potassium 4.5 mmol/L (3.5-5.1)
[2022-03-20] MEDS: RIVAROXABAN 20 MG TAB PO SCH (18:06)
--- NOTE | 2022-03-20 18:45 | Billing Data ---
Date of Service March 20, 2022 Coding Level of Care Code 60511 Subseq Hosp Care Lvl 3
--- NOTE | 2022-03-20 18:45 | Hospitalist Progress Note ---
Date of Service March 20, 2022 Assessment & Plan Admission and Anticipated Discharge Date Admission Date: March 16, 2022 Results & Data Results & Data ([facility]) Vital Signs (Past 12 Hours) Vital Signs Temp Pulse Resp BP Pulse Ox O2 Del Method O2 Flow Rate 03/20/22 15:51 98.6 F 88 16 98/65 L 91 03/20/22 15:01 83 18 94 Nasal Cannula 2 03/20/22 11:02 88 18 93 Nasal Cannula 2 03/20/22 07:28 98.1 F 76 16 96/61 L 92 03/20/22 07:17 80 18 93 Nasal Cannula 2 PG Care Time/CCT Total # of Minutes Spent Total Time Spent with Patient: Total time spent is greater than 50% in coordination of care (as documented) at patient's floor/unit and/or counseling patient: Coding Level of Care Code None CPT Codes Musculoskeletal - Musculoskeletal: [address] 1-2 Body regions ([id number])
[2022-03-20] MEDS: buPROPion XL 150 MG TABCR PO SCH (20:49)
[2022-03-20] MEDS: LORazepam 1 MG TAB PO PRN (20:54)
[2022-03-20] MEDS: traZODone HCL 50 MG TAB PO SCH (20:54)
[2022-03-21] MEDS: methylPREDNISolone 40 MG in SYRINGE 0 ML IV SCH ×3 (02:29→17:19)
[2022-03-21] MEDS: BUDESONIDE 0.25 MG/2 ML VIAL (PULMICORT) NEB SCH ×2 (06:16→19:30)
[2022-03-21] MEDS: ALBUT/IPRATROP 3MG/0.5MG NEB 3 ML VIAL NEB SCH ×4 (06:16→19:31)
[2022-03-21 06:55] LABS: Hematocrit (blood only) 46.1 % (34.1-44.9); Hemoglobin 15.5 g/dl (12.0-16.0); Mean Corpuscular Hemoglobin 31.7 pg (25.0-34.0); Mean Corpuscular Hgb Conc 33.6 g/dL (32.0-36.0); Mean Corpuscular Volume 94.3 fL (80.0-100.0); Mean Platelet Volume 10.2 fL (9.4-12.3); Platelet Count 166 K/uL (130-400); RDW Coefficient of Variation 13.3 % (11.5-14.5); RDW Standard Deviation 46.8 fL (36.4-46.3); Red Blood Count 4.89 M/uL (3.93-5.22); White Blood Count 7.01 K/ul (4.8-10.8)
[2022-03-21 07:23] LABS: BUN Creatinine Ratio 31.6 (10-20); Calcium 9.2 mg/dl (8.5-10.1); Creatinine Clr Calc Pharmacy 52.2 ml/min; Est GFR (African American) 69.2 ml/min; Est GFR (Non-African American) 59.7 ml/min; Potassium 4.4 mmol/L (3.5-5.1)
--- NOTE | 2022-03-21 07:49 | Hospitalist Progress Note ---
Date of Service March 21, 2022 Assessment & Plan (1) Acute exacerbation of chronic obstructive pulmonary disease: Plan: 66 y/o female w/ PMHx of COPD on 2 L home O2, HFpEF, PE on Xarelto, and sarcoidosis who presents for a few days of worsening chest tightness and dyspnea most likely secondary to COPD exacerbation who is slowly clinically improving. Acute Exacerbation of COPD Patient has a history of COPD on 2L NC at home. Patient is a current smoker and has had 3 exacerbations requiring hospitalization the past few months. She is on Flovent (ICS), Anoro Ellipta (LABA/LAMA), and albuterol PRN at home. Her currently symptoms are likely due to a COPD exacerbation. Her progress has been slow, but she does have severe COPD. Continue with current regimen. Goal is clinical improvement prior to discharge. - IV ceftriaxone 1g QD (day 5) - sputum cx from 03/19 resulted as moderate normal alla - methylpred 40 mg Q8 - scheduled duonebs and PulmCort Respules - encourage ambulation, flutter valve, and IS - Mucinex Tobacco Use Disorder Patient current smoker. counseled on cessation. Started wellbutrin. Can consider nicotine patch if needed for withdrawal symptoms. Previously had insurance issues w/ nicotine replacement therapy and Chantix as outpatient -patient notes she smoked up to 4 packs per day in the last year -notes her cravings worsen with anxiety -encouraged further discussion of anxiety/potential benefit from therapy with PCP after discharge -continue Wellbutrin HFpEF Last echo w/ EF 60-65 and grade 1 diastolic dysfunction. Can use IV fluids cautiously HLD continue home regimen Chronic Respiratory Failure on 2L O2 at home History of PE on Xarelto Anxiety continue home escitalopram QD and prn lorazepam 1mg daily (2) Tobacco use disorder: (3) Left ear pain: Plan: Left Ear Pain - acute. exam deferred at this time (no otoscope in room), will assess at later time - per description, considered eustachian tube dysfunction- showed Regla OMT technique to patient (4) CHF (congestive heart failure): (5) Hyperlipidemia: (6) Chronic respiratory failure: (7) Sarcoidosis: Plan: - chronic (8) History of pulmonary embolism: Plan: - continue home Eliquis (9) Anxiety: Plan low Na diet. no iv fluids Xarelto PCU full code Admission and Anticipated Discharge Date Admission Date: March 16, 2022 Supervising Physician Co-Signing Physician Notes Resident Physician Supervision Note: I independently interviewed and examined the patient and verified the patel history and physical, reviewed labs and image studies and agree with resident findings and care plan. Mirela Milton is a 66 year old female with a past medical history of CHF, PE, COPD, asthma, tobacco use disorder being managed for COPD exacerbation. Patient was seen and examined at bedside. No events overnight. Today she states she is feeling a bit better than yesterday, still notes a cough (occasionally produces yellow sputum), some chest tightness and dyspnea on exertion. She notes that she is trying to increase her ambulation and has been able to walk around her bed. She is hoping to walk further today and reach the restroom, but so far has been restricted by her SOB. Denies any chest pain/pressure, N/V, dizziness, fever, chills. Review of Systems Review of Systems: As per HPi Physical Exam Constitutional: well developed and well nourished; no acute distress Neck: normal visual inspection Respiratory: + cough and + tripod positioning Auscultation: + wheezes Cardiovascular: RRR, no murmur, no edema Skin: no lower extremity edema Results & Data Results & Data ([facility]) Vital Signs (Past 12 Hours) Vital Signs Temp Pulse Resp BP Pulse Ox O2 Del Method O2 Flow Rate 03/21/22 06:17 77 18 95 Nasal Cannula 2 03/20/22 20:00 Nasal Cannula 2 03/20/22 22:14 36.7 C 88 16 85/51 L 92 Nasal Cannula 2
[2022-03-21] MEDS: guaiFENesin 600 MG TABCR PO SCH ×2 (08:30→20:26)
[2022-03-21] MEDS: ESCITALOPRAM OXALATE 10 MG TAB PO SCH (08:30)
[2022-03-21] MEDS: GABAPENTIN 600 MG TAB PO SCH ×3 (08:31→20:25)
[2022-03-21] MEDS: FAMOTIDINE 20 MG TAB PO SCH (08:35)
--- NOTE | 2022-03-21 08:47 | Medical Student Progress Note ---
Date of Service March 21, 2022 Assessment & Plan (1) Acute exacerbation of chronic obstructive pulmonary disease: Elis Milton is a 66yo female with past medical hx of HFpEF, PE (on Xarelto), asthma, tobacco use disorder, and COPD (2L NC at home prn) who was admitted 5 days ago for COPD exacerbation. 1. Acute Exacerbation of COPD Patient has a history of COPD on 2-3L NC at home as needed for sx. Patient is a current smoker and has had 3 exacerbations requiring hospitalization the past few months. She is on Flovent (ICS), Anoro Ellipta (LABA/LAMA), and albuterol PRN at home. Her current increased dyspnea is likely due to COPD exacerbation. Plan to cont abx & steroids and monitor for clinical improvement prior to discharge considering this pts potential for readmission. Current regimen: IV ceftriaxone 1g qd (day 5) Methyprednisone 40mg q8 Albuterol neb q2 prn Scheduled Duonebs Tylenol 650mg q4 prn Slowly increasing ambulation as tolerated. 2. Hyperkalemia/Hypercapnia Patient had normal potassium (4.2) and CO2 (32) levels upon admission. Her CO2 continued to climb and increased to 38 yesterday. VBG was repeated yesterday at 15:00 to make sure her hypercapnia/hyperkalemia not worsened. Potassium was 4.5 and CO2 was 33 in the repeat BMP. rising bicarb levels are likely due to compensation of the kidneys. -potassium of 4.4 today, has normalized after elevation of 5.3 yesterday (03/20 at 7:01am) -CO2 was 33 today -will follow with repeat BMP tomorrow AM 3. Tobacco Use Disorder Pt is a current smoker with 120 pack year hx. Continue counseling on cessation, wellbutrin, add nicotine patch prn if necessary. Discussed talking to PCP regarding outpatient therapy for anxiety component of addiction, pt seemed interested. 4. Hx of PE Continue Xarelto. F/u with pulmonology scheduled for May. Plan FEN: Low Na+ diet. DVT PPx: Xarelto Dispo: PCU Full code Admission and Anticipated Discharge Date Admission Date: March 16, 2022 Mirela Milton is a 66yo female with past medical hx of HFpEF, PE (on Xarelto), asthma, tobacco use disorder, and COPD (2L NC at home prn) who was admitted 5 days ago for COPD exacerbation. No acute overnight events. Pt feels she is slowly improving. Still experiencing exertional SOB but this is slightly better than yesterday. Pt is working on increasing ambulation around the room, but is unsure of her ability to make it more than a few steps away from bedside. Pt expressed significant SOB sitting in wheelchair while being moved to different room. Pt relates her desire to smoke to general life stressors and admits to likely correlation with anxiety. Pt is interested in smoking cessation and is hopeful that Wellbutrin will help her. Pt denies any new fevers/chills. She is still coughing occasionally with moderate chest tightness/discomfort - no changes with this. Physical Exam Constitutional: A&O, notable fatigue Eyes: PERRL, conjunctivae normal, anicteric sclerae Respiratory: normal respiratory effort, + cough and + tripod positioning Auscultation: + wheezes Cardiovascular: RRR, no murmur, no edema Extremities: normal capillary refill Gastrointestinal (Abdomen): normal bowel sounds, soft, nontender, no hepatosplenomegaly Skin: no rashes, warm and dry Results & Data ([facility] [place]) Vital Signs (Past 12 Hours) Vital Signs Temp Pulse Resp BP Pulse Ox O2 Del Method O2 Flow Rate 03/21/22 08:17 36.7 C 83 16 107/63 91 2 03/21/22 06:17 77 18 95 Nasal Cannula 2 03/20/22 22:14 36.7 C 88 16 85/51 L 92 Nasal Cannula 2
[2022-03-21] MEDS: cefTRIAXone SODIUM 1,000 MG in DEXTROSE 5% 50 ML IV SCH (11:44)
[2022-03-21] MEDS: RIVAROXABAN 20 MG TAB PO SCH (17:19)
[2022-03-21] MEDS: LORazepam 1 MG TAB PO PRN (20:25)
[2022-03-21] MEDS: traZODone HCL 50 MG TAB PO SCH (20:25)
[2022-03-21] MEDS: buPROPion XL 150 MG TABCR PO SCH (20:26)
[2022-03-22] MEDS: methylPREDNISolone 40 MG in SYRINGE 0 ML IV SCH ×3 (02:32→15:55)
--- NOTE | 2022-03-22 07:02 | Hospitalist Progress Note ---
Date of Service March 22, 2022 Assessment & Plan (1) Acute exacerbation of chronic obstructive pulmonary disease: Plan: 66 y/o female w/ PMHx of COPD on 2 L home O2, HFpEF, PE on Xarelto, and sarcoidosis who presents for a few days of worsening chest tightness and dyspnea most likely secondary to COPD exacerbation who is slowly clinically improving. Acute Exacerbation of COPD Patient has a history of COPD on 2L NC at home. Patient is a current smoker and has had 3 exacerbations requiring hospitalization the past few months. She is on Flovent (ICS), Anoro Ellipta (LABA/LAMA), and albuterol PRN at home. Her currently symptoms are likely due to a COPD exacerbation. Her progress has been slow, but she does have severe COPD. On exam she still has diffuse wheezing, but slight improvement from yesterday. Continue with current regimen. Goal is clinical improvement prior to discharge. - IV ceftriaxone 1g QD (day 6) - sputum cx from 03/19 resulted as moderate normal alla - methylpred 40 mg Q8 - scheduled duonebs and PulmCort Respules - encourage ambulation, flutter valve, and IS - Mucinex Tobacco Use Disorder Patient current smoker. counseled on cessation. Started wellbutrin. Can consider nicotine patch if needed for withdrawal symptoms. Previously had insurance issues w/ nicotine replacement therapy and Chantix as outpatient -patient notes she smoked up to 4 packs per day in the last year -notes her cravings worsen with anxiety -encouraged further discussion of anxiety/potential benefit from therapy with PCP after discharge -continue Wellbutrin, increased dosage from 150mg HS to 150mg BID. HFpEF Last echo w/ EF 60-65 and grade 1 diastolic dysfunction. Euvolemic HLD continue home regimen Chronic Respiratory Failure on 2L O2 at home History of PE on Xarelto Anxiety continue home escitalopram QD and prn lorazepam 1mg daily (2) Tobacco use disorder: (3) Left ear pain: (4) CHF (congestive heart failure): (5) Hyperlipidemia: (6) Chronic respiratory failure: (7) Sarcoidosis: Plan: - chronic (8) History of pulmonary embolism: Plan: - continue home Eliquis (9) Anxiety: Plan low Na diet. no iv fluids Xarelto PCU full code Admission and Anticipated Discharge Date Admission Date: March 16, 2022 Supervising Physician Co-Signing Physician Notes Resident Physician Supervision Note: I independently interviewed and examined the patient and verified the patel history and physical, reviewed labs and image studies and agree with resident findings and care plan. Mirela Milton is a 66 year old female with a past medical history of CHF, PE, COPD, asthma, tobacco use disorder being managed for COPD exacerbation. Patient was seen and examined at bedside. No events overnight. Today she states she is feeling a bit better than yesterday, has noticed a slight decrease in her cough. She notes that she is trying to increase her ambulation and has been able to walk to the bathroom several times today. Denies any chest pain, N/V, dizziness, fever, chills. Review of Systems Review of Systems: As per HPi Physical Exam Physical Exam: General: Grossly A&O. NAD. Cooperative. HEENT: Atraumatic, normocephalic. EOMI. Pulm: + wheezes diffusely Cardiac: RRR, -mrg. No LE edema. Integ: Warm, dry intact. Neuro: No focal deficits. Results & Data Results & Data ([facility]) Vital Signs (Past 12 Hours) Vital Signs Temp Pulse Resp BP Pulse Ox O2 Del Method O2 Flow Rate 03/21/22 20:00 Nasal Cannula 2 03/21/22 22:39 36.8 C 84 16 100/62 93 Nasal Cannula 2 03/21/22 19:34 91 H 18 92 Nasal Cannula 2 Resident Activity Tracking Resident Involvement: Resident Care Provided Care Provided: Adult Hospital Medicine
[2022-03-22] MEDS: guaiFENesin 600 MG TABCR PO SCH ×2 (07:29→20:39)
[2022-03-22] MEDS: ESCITALOPRAM OXALATE 10 MG TAB PO SCH (07:29)
[2022-03-22] MEDS: GABAPENTIN 600 MG TAB PO SCH ×3 (07:29→20:38)
[2022-03-22] MEDS: ALBUT/IPRATROP 3MG/0.5MG NEB 3 ML VIAL NEB SCH ×4 (07:40→20:48)
[2022-03-22] MEDS: BUDESONIDE 0.25 MG/2 ML VIAL (PULMICORT) NEB SCH ×2 (07:40→20:48)
[2022-03-22] MEDS: FAMOTIDINE 20 MG TAB PO SCH (08:08)
[2022-03-22 09:03] LABS: Hematocrit (blood only) 47.8 % (34.1-44.9); Hemoglobin 15.9 g/dl (12.0-16.0); Mean Corpuscular Hemoglobin 31.6 pg (25.0-34.0); Mean Corpuscular Hgb Conc 33.3 g/dL (32.0-36.0); Mean Platelet Volume 9.9 fL (9.4-12.3); Platelet Count 177 K/uL (130-400); RDW Coefficient of Variation 13.4 % (11.5-14.5); RDW Standard Deviation 47.2 fL (36.4-46.3); Red Blood Count 5.03 M/uL (3.93-5.22); White Blood Count 8.43 K/ul (4.8-10.8)
[2022-03-22 09:37] LABS: Calcium 9.4 mg/dl (8.5-10.1); Creatinine Clr Calc Pharmacy 59.5 ml/min; Est GFR (Non-African American) 69.9 ml/min; Potassium 4.5 mmol/L (3.5-5.1)
[2022-03-22] MEDS: cefTRIAXone SODIUM 1,000 MG in DEXTROSE 5% 50 ML IV SCH (12:19)
[2022-03-22] MEDS: RIVAROXABAN 20 MG TAB PO SCH (15:35)
--- NOTE | 2022-03-22 15:51 | Medical Student Progress Note ---
Date of Service March 22, 2022 Assessment & Plan (1) Acute exacerbation of chronic obstructive pulmonary disease: Plan: Karine is a 66yo female with past medical hx of HFpEF (60-65% on last echo), PE (on Xarelto), asthma, tobacco use disorder, and COPD who is on Day 6 of admission for acute COPD exacerbation. #1 Acute Exacerbation of COPD Patient has a history of COPD on 2-3L NC at home as needed for sx. Patient is a current smoker and has had 3 exacerbations requiring hospitalization the past few months. She is on Flovent (ICS), Anoro Ellipta (LABA/LAMA), and albuterol PRN at home. Her current increased dyspnea is likely due to COPD exacerbation. Plan to cont abx & steroids and monitor for clinical improvement prior to discharge considering this pts potential for readmission. Anticipate discharge within 1-2 days provided she continues to improve and tolerate increased ambulation without any severe dyspnea. Current regimen: IV ceftriaxone 1g qd (day 6) Methyprednisone 40mg q8 Albuterol neb q2 prn Scheduled Duonebs Tylenol 650mg q4 prn #2 Tobacco Use Disorder Pt is a current smoker with 120 pack year hx. Continue counseling on cessation, wellbutrin, add nicotine patch prn. Discussed talking to PCP regarding outpatient therapy for anxiety component of addiction, pt seemed interested. Plan FEN/GI: No IV fluids/ low Na diet. DVT PPx: Xarelto Dispo: PCU Full Code Admission and Anticipated Discharge Date Admission Date: March 16, 2022 Mirela Milton is a 66yo female with past medical hx of HFpEF (60-65% on last echo), PE (on Xarelto), asthma, tobacco use disorder, and COPD who is on Day 6 of admission for acute COPD exacerbation. Pt has been hospitalized 3x over past few months for exacerbations. At home, she controls her COPD with daily ICS (Flovent), LABA/LAMA combo (Ellipta) and albuterol prn. She also has at home O2 and uses 2-3L NC prn. At time of admission, she relates being a current daily smoker (4ppd), but has been working on smoking cessation since admission and started on Wellbutrin. No acute events overnight. She has increased her ambulation and has made several trips to/from restroom today with some increased SOB. Pt feels the cough is getting better and she is producing less sputum than before. She feels the main thing holding her back from feeling better is the persistent tightness in her chest. Pt doing well with smoking cessation but notes somewhat increase in anxiety/jitters which she relates to drug withdrawal. Pt denies fevers/chills. Physical Exam Eyes: PERRL, conjunctivae normal, anicteric sclerae Respiratory: normal respiratory effort, + cough and + tripod positioning Auscultation: + wheezes Cardiovascular: RRR, no murmur, no edema Extremities: normal capillary refill Gastrointestinal (Abdomen): normal bowel sounds, soft, nontender, no hepatosplenomegaly Skin: no rashes, warm and dry Results & Data ([facility]) Vital Signs (Past 12 Hours) Vital Signs Temp Pulse Resp BP Pulse Ox O2 Del Method O2 Flow Rate 03/22/22 15:28 36.8 C 80 16 109/63 95 Room Air 03/22/22 15:08 87 18 94 Nasal Cannula 2 03/22/22 11:29 84 18 95 Nasal Cannula 2 03/22/22 08:33 Nasal Cannula 2 03/22/22 07:53 37.2 C 79 16 103/68 94 2 03/22/22 07:42 80 16 91 Nasal Cannula 2
[2022-03-22] MEDS: buPROPion XL 150 MG TABCR PO SCH (20:39)
[2022-03-22] MEDS: traZODone HCL 50 MG TAB PO SCH (20:43)
[2022-03-22] MEDS: LORazepam 1 MG TAB PO PRN (20:43)
[2022-03-23] MEDS: methylPREDNISolone 40 MG in SYRINGE 0 ML IV SCH ×3 (01:47→17:31)
[2022-03-23] MEDS ORDERED: FAMOTIDINE 20 MG TAB PO STA (06:29)
[2022-03-23 06:44] LABS: Hematocrit (blood only) 46.7 % (34.1-44.9); Mean Corpuscular Hgb Conc 34.3 g/dL (32.0-36.0); Mean Corpuscular Volume 93.4 fL (80.0-100.0); Mean Platelet Volume 9.7 fL (9.4-12.3); Platelet Count 171 K/uL (130-400); RDW Coefficient of Variation 13.2 % (11.5-14.5); RDW Standard Deviation 45.1 fL (36.4-46.3); White Blood Count 8.19 K/ul (4.8-10.8)
--- NOTE | 2022-03-23 07:00 | Hospitalist Progress Note ---
Date of Service March 23, 2022 Assessment & Plan (1) Acute exacerbation of chronic obstructive pulmonary disease: Plan: 66 y/o female w/ PMHx of COPD on 2 L home O2, HFpEF, PE on Xarelto, and sarcoidosis who presents for a few days of worsening chest tightness and dyspnea most likely secondary to COPD exacerbation who is slowly clinically improving. Acute Exacerbation of COPD Patient has a history of COPD on 2L NC at home. Patient is a current smoker and has had 3 exacerbations requiring hospitalization the past few months. She is on Flovent (ICS), Anoro Ellipta (LABA/LAMA), and albuterol PRN at home. Her currently symptoms are likely due to a COPD exacerbation. Her progress has been slow, but she does have severe COPD. On exam she still has diffuse wheezing, but slight improvement from yesterday. Continue with current regimen. Goal is clinical improvement prior to discharge. - IV ceftriaxone 1g QD (day 7) - sputum cx from 03/19 resulted as moderate normal alla - methylpred 40 mg Q8 - scheduled duonebs and PulmCort Respules - encourage ambulation, flutter valve, and IS - Mucinex - as patient has had gradual clinical improvement and increased ability to ambulate, may be appropriate to consider discharge in the next day -will reach out to respiratory therapy to inquire about availability of pulmonary rehab on d/c which could be beneficial Epigastric pain - has had chronic epigastric pain - normal bowel movements. no sign of bleed. - concern of gastroparesis. - continue PPI - GI consulted, will have patient NPO at midnight for upper GI studies tomorrow AM Tobacco Use Disorder Patient current smoker. counseled on cessation. Started wellbutrin. Can consider nicotine patch if needed for withdrawal symptoms. Previously had insurance issues w/ nicotine replacement therapy and Chantix as outpatient -patient notes she smoked up to 4 packs per day in the last year -notes her cravings worsen with anxiety -encouraged further discussion of anxiety/potential benefit from therapy with PCP after discharge -continue Wellbutrin, now taking 150mg BID. HFpEF Last echo w/ EF 60-65 and grade 1 diastolic dysfunction. Euvolemic HLD continue home regimen Chronic Respiratory Failure on 2L O2 at home History of PE on Xarelto Anxiety continue home escitalopram QD and prn lorazepam 1mg daily (2) Tobacco use disorder: (3) Left ear pain: (4) CHF (congestive heart failure): (5) Hyperlipidemia: (6) Chronic respiratory failure: (7) Sarcoidosis: Plan: - chronic (8) History of pulmonary embolism: Plan: - continue home Eliquis (9) Anxiety: Plan low Na diet. no iv fluids Xarelto PCU full code Admission and Anticipated Discharge Date Admission Date: March 16, 2022 Supervising Physician Co-Signing Physician Notes Resident Physician Supervision Note: I independently interviewed and examined the patient and verified the patel history and physical, reviewed labs and image studies and agree with resident findings and care plan. Mirela Milton is a 66 year old female with a past medical history of CHF, PE, COPD, asthma, tobacco use disorder being managed for COPD exacerbation. Patient was seen and examined at bedside. Patient was seated in bed eating breakfast at time of encounter. Today she states she continues to feel a bit better each day, feels her cough is becoming more dry and less frequent. She notes she has been able to ambulate more around the room and to the bathroom which is an improvement. Notes some tightness in her ribs although states it is not new. Denies any chest pain, N/V, dizziness, fever, chills. Review of Systems Review of Systems: As per HPi Physical Exam Physical Exam: General: Grossly A&O. NAD. Cooperative. HEENT: Atraumatic, normocephalic. EOMI. Pulm: + wheezes diffusely Cardiac: RRR, -mrg. No LE edema. Integ: Warm, dry intact. No rashes Neuro: No focal deficits. Results & Data Results & Data ([facility]) Vital Signs (Past 12 Hours) Vital Signs Temp Pulse Resp BP Pulse Ox O2 Del Method O2 Flow Rate 03/22/22 23:59 36.9 C 81 18 105/65 93 Nasal Cannula 2 03/22/22 20:53 Nasal Cannula 2 03/22/22 20:49 18 94 Nasal Cannula 2 Resident Activity Tracking Resident Involvement: Resident Care Provided Care Provided: Adult Hospital Medicine
[2022-03-23 07:03] LABS: BUN Creatinine Ratio 35.2 (10-20); Calcium 9.5 mg/dl (8.5-10.1); Creatinine Clr Calc Pharmacy 58.1 ml/min; Est GFR (African American) 78.8 ml/min; Potassium 4.7 mmol/L (3.5-5.1)
[2022-03-23] MEDS: BUDESONIDE 0.25 MG/2 ML VIAL (PULMICORT) NEB SCH ×2 (07:26→19:32)
[2022-03-23] MEDS: ALBUT/IPRATROP 3MG/0.5MG NEB 3 ML VIAL NEB SCH ×4 (07:26→19:32)
[2022-03-23] MEDS: guaiFENesin 600 MG TABCR PO SCH ×2 (09:21→20:19)
[2022-03-23] MEDS: GABAPENTIN 600 MG TAB PO SCH ×3 (09:22→20:18)
[2022-03-23] MEDS: buPROPion XL 150 MG TABCR PO SCH ×2 (09:22→20:19)
[2022-03-23] MEDS: ESCITALOPRAM OXALATE 10 MG TAB PO SCH (10:13)
[2022-03-23] MEDS: FAMOTIDINE 20 MG TAB PO SCH (10:14)
[2022-03-23] MEDS: cefTRIAXone SODIUM 1,000 MG in DEXTROSE 5% 50 ML IV SCH (11:43)
--- NOTE | 2022-03-23 12:00 | Gastrointestinal Consultation ---
Date of Consultation March 23, 2022 Assessment & Plan (1) Epigastric abdominal pain: (2) Dysphagia: Plan Discussed case with Dr. Schroeder who advised on plan. - start protonix 40mg once daily. - we discussed EGD but patient is hesitant about proceeding with this. She is agreeable to setting up an UGI series. symptoms do seem like they have been ongoing for a long time and her pain may be more muscular in nature given that its positional and worse with twisting. pending results of UGI, can readdress EGD as an outpatient. History of Present Illness Reason for Consultation: Epigastric pain Requesting Physician: Dr. David Almonte Attending Physician: Nicolasa Koehler MD History of Present Illness Patient is a 66 year old female with past medical history of COPD, CHF, 2L home O2, history of PE on Xarelto, and sarcoidosis who was admitted after a few days of worsening chest tightness and dyspnea most likely secondary to COPD exacerbation. GI consulted to see for epigastric pain. She tells me that she has had this epigastric pain that she describes as a pressure for over 2 years. It has gradually gotten worse over time. when asked to list on scale of 1 to 10 she tells me she cannot really do this as it is more a pressure than a pain. she tells me that it does seem positional and is better when she lays down. can be worse with twisting. she does use meloxicam as outpatient. never had an EGD. she does admit to dysphagia that has also been going on for "a long time". happens with foods. foods seem to stick in sternal area. Patient denies any current issues with nausea, vomiting, heartburn, unintentional weight loss, change in bowels. colonoscopy 03/03/21 diverticulosis and internal hemorrhoids. Allergies Allergy/AdvReac Type Severity Reaction Status Date / Time No Known Allergies Allergy Verified 03/03/22 15:54 Home Medications Medication Instructions Recorded Confirmed Type fluticasone propionate 110 2 puff inhalation BID #12 grams 06/28/21 03/03/22 Rx mcg/actuation HFA aerosol inhaler (Flovent HFA) albuterol sulfate 2.5 mg/3 mL 2.5 mg (3 mL) inhalation QID PRN 07/28/21 03/03/22 Rx (0.083 %) solution for nebulization Shortness Of Breath Or Wheezing #270 mL trazodone 50 mg tablet 50 mg PO HS #90 tabs 08/09/21 03/03/22 Rx rivaroxaban 20 mg tablet (Xarelto) 20 mg PO HS #30 tabs 12/13/21 03/03/22 Rx escitalopram oxalate 10 mg tablet 10 mg PO DAILY #90 tabs 01/06/22 03/03/22 Rx gabapentin 600 mg tablet 600 mg PO TID #90 tabs 01/06/22 03/03/22 Rx albuterol sulfate 90 mcg/actuation 2 puff inhalation QID PRN 02/24/22 03/03/22 Rx aerosol inhaler (Ventolin HFA) Shortness Of Breath Or Wheezing #18 grams lorazepam 1 mg tablet (Ativan) 1 mg PO DAILY PRN Anxiety #30 tabs 02/24/22 03/03/22 Rx meloxicam 7.5 mg tablet 7.5 mg PO QPM #90 tabs 03/02/22 03/03/22 Rx umeclidinium 62.5 mcg-vilanterol 1 inh inhalation QAM #60 ea 03/02/22 03/03/22 Rx 25 mcg/actuation powdr for inhalation (Anoro Ellipta) famotidine 20 mg tablet 20 mg PO DAILY #30 tabs 03/05/22 Rx prednisone 10 mg tablet See Rx Instructions PO .COMPLEX 03/05/22 Rx #50 tabs Patient History Medical History Acute exacerbation of chronic obstructive pulmonary disease Acute respiratory distress Anxiety and depression Anxiety with depression COPD (chronic obstructive pulmonary disease) History of pulmonary embolism x 2. 1st following shoulder replacement 2018, 2nd 3-4 mo ago -- unk etiology -- on xarelto On home O2 2 LPM PRN Osteoarthritis Osteoporosis Rib pain Sarcoidosis follows with Flo Albright PA-C Scoliosis Thoracic back pain Surgical History H/O hysterectomy for benign disease (10/02/12) History of hip replacement Left PREETI: 09/11/17: SAB x 1 at L3-L4 at [facility] History of right shoulder replacement Hx of colonoscopy Hx of elbow surgery RIGHT Family History Father Myocardial infarction Brother Anxiety COPD (chronic obstructive pulmonary disease) Daughter Anxiety Sister Breast cancer Other Diabetes Kidney disease No family history of adverse response to anesthesia Denies family history of Ovarian cancer Prostate cancer Colorectal cancer Social History Smoking Status: Current every day smoker Tobacco Type: Cigarettes Age Started Using Tobacco: 22; packs per day: 0.75; Cigarettes Per Day: ppd; Second Hand Exposure: Yes; Do You Dip or Chew Tobacco: No; Tobacco Cessation Education Requested by Patient: No Hx Alcohol Use: No Hx Substance Use: Yes Preferred Language: Kenyan Communication Ability: Effective Visual Impairment: No Limitations Hearing Ability: Normal Timber Inspector Required: No Beliefs That Will Affect Care: None marital status: Current Living Situation: Alone current occupational status: retired and disabled 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 How many Children do You have: 2 Other Information That Helps Us Care for You: No Feels Safe at Home: Yes Safety Concerns: Feels Safe At This Time Childhood Exposure to Second-Hand Smoke: No Dental Care, Regularly: No Physical Activity Frequency: Does not Exercise Seatbelt Use: always Sunscreen Use: No (is not out in the sun much ) Assistive Devices: Cane, Nebulizer, Oxygen - Continuous and Walker Assistive Devices Comment: oxygen as needed home Review of Systems Review of Systems: All systems reviewed & are unremarkable except as noted in HPI & below Physical Exam Constitutional: WD/WN, vitals as above Respiratory: normal respiratory effort, lungs clear to auscultation Cardiovascular: RRR, no murmur, no edema Gastrointestinal (Abdomen): mild epigastric tenderness to palpation, soft, no guarding, normal bowel sounds. Skin: no rashes, warm and dry Psychiatric: Orientation: alert and oriented x 3 Affect: euthymic affect Results & Data ([facility]) Vital Signs (Past 12 Hours) Vital Signs Temp Pulse Resp BP Pulse Ox O2 Del Method O2 Flow Rate 03/23/22 10:31 102 H 15 94 Nasal Cannula 2 03/23/22 08:02 Nasal Cannula 2 03/23/22 07:28 87 15 92 Nasal Cannula 2 03/23/22 07:18 36.7 C 78 17 105/68 93 Nasal Cannula 2 03/22/22 23:59 36.9 C 81 18 105/65 93 Nasal Cannula 2 PG Care Time/CCT Total # of Minutes Spent Total Time Spent with Patient: Total time spent is greater than 50% in coordination of care (as documented) at patient's floor/unit and/or counseling patient: Coding Level of Care Code 44398 Initial Inpt Care Lvl 3 Diagnoses Epigastric abdominal pain R10.13 Dysphagia R13.10
[2022-03-23] MEDS: PANTOprazole 40 MG TAB PO SCH (12:35)
--- NOTE | 2022-03-23 14:09 | Medical Student Progress Note ---
Date of Service March 23, 2022 Assessment & Plan (1) Acute exacerbation of chronic obstructive pulmonary disease: Plan: Karine is a 66yo female with past medical hx of HFpEF (60-65% on last echo), PE (on Xarelto), asthma, tobacco use disorder, and COPD who is on Day 7 of admission for acute COPD exacerbation. 1. Acute Exacerbation of COPD Patient has a history of COPD on 2-3L NC at home as needed for sx. Patient is a current smoker and has had 3 exacerbations requiring hospitalization the past few months. She is on Flovent (ICS), Anoro Ellipta (LABA/LAMA), and albuterol PRN at home. Her current increased dyspnea is likely due to COPD exacerbation. Plan to cont steroids and monitor for clinical improvement prior to discharge considering this pts potential for readmission. Today will be last dose of abx. Anticipate discharge within 1-2 days provided she continues to improve and tolerate increased ambulation without any severe dyspnea. Current regimen: IV ceftriaxone 1g qd (day 7) Methyprednisone 40mg q8 Albuterol neb q4 prn Scheduled Duonebs Tylenol 650mg q4 prn 2. Tobacco Use Disorder Pt is a current smoker with 120 pack year hx. Continue counseling on cessation, wellbutrin, add nicotine patch prn. Discussed talking to PCP regarding outpatient therapy for anxiety component of addiction, pt seemed interested. 3. Epigastric pain The chronic time course/mild severity of the pain makes acute etiology such as PE/ACS/ischemic bowel less likely. Recommending GI consult to evaluate for gastroparesis and suggested outpt f/u on this issue after COPD exacerbation resolves. - GI consult placed - NPO after midnight, upper GI studies scheduled for AM Plan FEN/GI: No IV fluids/ low Na diet, switch to NPO at midnight DVT PPx: Xarelto Dispo: PCU Full Code Admission and Anticipated Discharge Date Admission Date: March 16, 2022 Mirela Milton is a 66yo female with past medical hx of HFpEF (60-65% on last echo), PE (on Xarelto), asthma, tobacco use disorder, and COPD who is on Day 7 of admission for acute COPD exacerbation. Pt has been hospitalized 3x over past few months for exacerbations. At home, she controls her COPD with daily ICS (Flovent), LABA/LAMA combo (Ellipta) and albuterol prn. She also has at home O2 and uses 2-3L NC prn. At time of admission, she relates being a current daily smoker (4ppd), but has been working on smoking cessation since admission and started on Wellbutrin. No acute events overnight. She has increased her ambulation and has made several trips to/from restroom today with some increased SOB. Pt feels the cough is getting better and she is producing less sputum than before. Pt denies feve rs/chills. Pts daughter present for history today. Pt has been experiencing chronic epigastric pain, worsened during her COPD exacerbations, but still present "even when lungs are feeling good". Daughter has gastroparesis and is concerned pt has gastroparesis as well. Pt describes pain as crampy, constant, only relieved by laying supine. She denies any n/v, constipation/diarrhea. Review of Systems Review of Systems: All systems reviewed & are unremarkable except as noted in Subjective Physical Exam Constitutional: A&O, no acute distress Eyes: PERRL, conjunctivae normal, anicteric sclerae Respiratory: normal respiratory effort, + cough and + tripod positioning Auscultation: + wheezes Cardiovascular: RRR, no murmur, no edema Extremities: normal capillary refill Gastrointestinal (Abdomen): normal bowel sounds, soft, nontender, no hepatosplenomegaly Skin: no rashes, warm and dry Results & Data ([facility]) Vital Signs (Past 12 Hours) Vital Signs Temp Pulse Resp BP Pulse Ox Pulse Ox O2 Del Method 03/23/22 13:49 90 16 95 Nasal Cannula 03/23/22 13:00 93 03/23/22 10:31 102 H 15 94 Nasal Cannula 03/23/22 08:02 Nasal Cannula 03/23/22 07:28 87 15 92 Nasal Cannula 03/23/22 07:18 36.7 C 78 17 105/68 93 Nasal Cannula O2 Del Method O2 Flow Rate O2 Flow Rate 03/23/22 13:49 2 03/23/22 13:00 Nasal Cannula 2 03/23/22 10:31 2 03/23/22 08:02 2 03/23/22 07:28 2 03/23/22 07:18 2
[2022-03-23] MEDS: RIVAROXABAN 20 MG TAB PO SCH (17:30)
[2022-03-23] MEDS: LORazepam 1 MG TAB PO PRN (20:18)
[2022-03-23] MEDS: traZODone HCL 50 MG TAB PO SCH (20:20)
[2022-03-24] MEDS: methylPREDNISolone 40 MG in SYRINGE 0 ML IV SCH ×3 (01:29→18:18)
[2022-03-24] MEDS: ALBUT/IPRATROP 3MG/0.5MG NEB 3 ML VIAL NEB SCH ×4 (06:49→19:27)
[2022-03-24] MEDS: BUDESONIDE 0.25 MG/2 ML VIAL (PULMICORT) NEB SCH ×2 (06:49→19:27)
[2022-03-24 07:45] LABS: Basophils # (auto) 0.01 K/uL (0-0.2); Basophils % (auto) 0.1 %; Hematocrit (blood only) 45.1 % (34.1-44.9); Hemoglobin 15.5 g/dl (12.0-16.0); Immature Granulocytes # (auto) 0.12 K/uL (0.00-0.02); Immature Granulocytes % (auto) 1.6 %; Lymphocytes # (auto) 0.67 K/uL (1.2-3.4); Lymphocytes % (auto) 8.8 %; Mean Corpuscular Hemoglobin 32.4 pg (25.0-34.0); Mean Corpuscular Hgb Conc 34.4 g/dL (32.0-36.0); Mean Corpuscular Volume 94.4 fL (80.0-100.0); Monocytes # (auto) 0.17 K/uL (0.24-0.82); Monocytes % (auto) 2.2 %; Neutrophils # (auto) 6.65 K/uL (1.4-6.5); Neutrophils % (auto) 87.3 %; Platelet Count 153 K/uL (130-400); RDW Coefficient of Variation 13.2 % (11.5-14.5); RDW Standard Deviation 46.4 fL (36.4-46.3); Red Blood Count 4.78 M/uL (3.93-5.22); White Blood Count 7.62 K/ul (4.8-10.8)
--- NOTE | 2022-03-24 07:53 | Hospitalist Progress Note ---
Date of Service March 24, 2022 Assessment & Plan (1) Acute exacerbation of chronic obstructive pulmonary disease: Plan: G66 y/o female w/ PMHx of COPD on 2 L home O2, HFpEF, PE on Xarelto, and sarcoidosis who presents for a few days of worsening chest tightness and dyspnea most likely secondary to COPD exacerbation who is slowly clinically improving. Acute Exacerbation of COPD Patient has a history of COPD on 2L NC at home. Patient is a current smoker and has had 3 exacerbations requiring hospitalization the past few months. She is on Flovent (ICS), Anoro Ellipta (LABA/LAMA), and albuterol PRN at home. Her currently symptoms are likely due to a COPD exacerbation. Her progress has been slow, but she does have severe COPD. On exam she still has diffuse wheezing, but slight improvement from yesterday. Continue with current regimen. Goal is clinical improvement prior to discharge. - IV ceftriaxone- finished 7 day course yesterday - sputum cx from 03/19 resulted as moderate normal alla - methylpred 40 mg Q8 - scheduled duonebs and PulmCort Respules - encourage ambulation, flutter valve, and IS - Mucinex - as patient has had gradual clinical improvement and increased ability to ambulate, planning for discharge tomorrow - approved for pulmonary rehab, will call patient to schedule after discharge Epigastric pain - has had chronic epigastric pain - normal bowel movements. no sign of bleed. - concern of gastroparesis. - continue PPI - GI consulted: UGI studies this AM showed small hiatal hernia, mild esophageal dysmotility, no GERD during exam. Recommending follow up outpatient for any further studies. Tobacco Use Disorder Patient current smoker. counseled on cessation. Started wellbutrin. Can consider nicotine patch if needed for withdrawal symptoms. Previously had insurance issues w/ nicotine replacement therapy and Chantix as outpatient -patient notes she smoked up to 4 packs per day in the last year -notes her cravings worsen with anxiety -encouraged further discussion of anxiety/potential benefit from therapy with PCP after discharge -continue Wellbutrin, taking 150mg BID. HFpEF Last echo w/ EF 60-65 and grade 1 diastolic dysfunction. Euvolemic HLD continue home regimen Chronic Respiratory Failure on 2L O2 at home History of PE on Xarelto Anxiety Continue home escitalopram and Lorazepam as needed Plan FEN/GI: No IV fluids/ low Na diet, switch to NPO at midnight DVT PPx: Clementina Dispo: PCU Full Code Admission and Anticipated Discharge Date Admission Date: March 16, 2022 Supervising Physician Co-Signing Physician Notes Resident Physician Supervision Note: I independently interviewed and examined the patient and verified the patel history and physical, reviewed labs and image studies and agree with resident findings and care plan. Mirela Milton is a 66 year old female with a past medical history of CHF, PE, COPD, asthma, tobacco use disorder being managed for COPD exacerbation. Patient was seen and examined at bedside. Today she again endorses slight improvement in her symptoms. She still struggles with SOB while walking, but has noticed some improvement since her admission. Denies any N/V/dizziness today. Patient had her barium swallow completed this morning. She notes she is nervous about returning home and is worried about going home "too soon." Review of Systems Review of Systems: As per HPi Physical Exam Constitutional: well developed and well nourished; no acute distress Neck: normal visual inspection Respiratory: + cough and + tripod positioning Auscultation: + wheezes Cardiovascular: RRR, no murmur, no edema Skin: no rashes, warm and dry Psychiatric: no focal deficits Results & Data Results & Data ([facility]) Vital Signs (Past 12 Hours) Vital Signs Temp Pulse Resp BP Pulse Ox Pulse Ox O2 Del Method 03/23/22 20:20 Nasal Cannula 03/23/22 20:20 93 03/23/22 21:26 36.5 C 81 16 96/63 L 93 03/23/22 19:32 72 18 93 Nasal Cannula O2 Del Method O2 Flow Rate O2 Flow Rate 03/23/22 20:20 2 03/23/22 20:20 Nasal Cannula 2 03/23/22 21:26 03/23/22 19:32 2 Resident Activity Tracking Resident Involvement: Resident Care Provided Care Provided: Adult Hospital Medicine
[2022-03-24 08:03] LABS: BUN Creatinine Ratio 40.2 (10-20); Calcium 9.1 mg/dl (8.5-10.1); Creatinine Clr Calc Pharmacy 55.6 ml/min; Est GFR (African American) 74.7 ml/min; Est GFR (Non-African American) 64.4 ml/min; Magnesium 2.4 mg/dl (1.7-2.4); Potassium 4.8 mmol/L (3.5-5.1)
[2022-03-24] MEDS: ESCITALOPRAM OXALATE 10 MG TAB PO SCH (08:27)
[2022-03-24] MEDS: GABAPENTIN 600 MG TAB PO SCH ×3 (08:28→20:17)
[2022-03-24] MEDS: guaiFENesin 600 MG TABCR PO SCH ×2 (08:28→20:17)
[2022-03-24] MEDS: buPROPion XL 150 MG TABCR PO SCH ×2 (08:28→20:17)
[2022-03-24] MEDS: FAMOTIDINE 20 MG TAB PO SCH (08:28)
[2022-03-24] MEDS: PANTOprazole 40 MG TAB PO SCH (08:29)
[2022-03-24 09:43] LABS: Base Excess VBG 11.2 mEq/L; HCO3 VBG 38 mmol/L; Oxygen Saturation VBG 73.4 %; PCO2 VBG 57 mmHg (38-50); PO2 VBG 43 mmHg; pH VBG 7.43 (7.36-7.41)
--- NOTE | 2022-03-24 11:34 | Communication Note ---
Date of Service: March 24, 2022 Patient still with epigastric discomfort. feels like a pressure. same as before. been ongoing for years. rest of gi ros unremarkable. she underwent UGI this morning but results are pending. If UGI without significant findings, would recommend follow up with GI as outpatient to discuss further work up of her symptoms which have been ongoing such as GES. She tells me daughter has history of gastroparesis.
--- NOTE | 2022-03-24 12:57 | Fluoroscopy Report ---
[place] GI series CLINICAL HISTORY: epigastric abdominal pain/dysphagia COMPARISON STUDY: Chest CT 12/24/2021. FLUOROSCOPY TIME: 1.7 minutes. 21 fluoroscopic spot images submitted.. FINDINGS: The patient swallowed barium without difficulty. The esophagus is normal and course and adrian iber. There is mild esophageal dysmotility. No gastric ulcerations identified. The duodenal bulb and duodenal C-sweep are normally distensible. There is a small hiatus hernia. No gastroesophageal reflux demonstrated during the examination. IMPRESSION: 1. Small hiatus hernia. 2. No gastroesophageal reflux demonstrated during the examination. 3. Mild esophageal dysmotility. ACT 112: Negative or not required by law. Electronically signed by: Zack Dixon M.D. 03/24/2022 12:56 PM
[2022-03-24] MEDS: RIVAROXABAN 20 MG TAB PO SCH (17:36)
[2022-03-24] MEDS: LORazepam 1 MG TAB PO PRN (20:17)
[2022-03-24] MEDS: traZODone HCL 50 MG TAB PO SCH (20:17)
[2022-03-25] MEDS: methylPREDNISolone 40 MG in SYRINGE 0 ML IV SCH ×3 (02:54→17:00)
[2022-03-25] MEDS: ALBUT/IPRATROP 3MG/0.5MG NEB 3 ML VIAL NEB SCH ×4 (07:08→19:34)
[2022-03-25] MEDS: BUDESONIDE 0.25 MG/2 ML VIAL (PULMICORT) NEB SCH ×2 (07:08→19:33)
[2022-03-25 07:23] LABS: Hematocrit (blood only) 43.7 % (34.1-44.9); Hemoglobin 14.7 g/dl (12.0-16.0); Mean Corpuscular Hemoglobin 31.8 pg (25.0-34.0); Mean Corpuscular Hgb Conc 33.6 g/dL (32.0-36.0); Mean Corpuscular Volume 94.6 fL (80.0-100.0); Mean Platelet Volume 9.6 fL (9.4-12.3); Platelet Count 143 K/uL (130-400); RDW Coefficient of Variation 13.2 % (11.5-14.5); RDW Standard Deviation 45.5 fL (36.4-46.3); Red Blood Count 4.62 M/uL (3.93-5.22); White Blood Count 6.76 K/ul (4.8-10.8)
[2022-03-25 07:47] LABS: BUN Creatinine Ratio 44.4 (10-20); Calcium 8.9 mg/dl (8.5-10.1); Creatinine Clr Calc Pharmacy 56.8 ml/min; Est GFR (African American) 76.7 ml/min; Est GFR (Non-African American) 66.2 ml/min; Potassium 4.7 mmol/L (3.5-5.1)
[2022-03-25] MEDS: guaiFENesin 600 MG TABCR PO SCH ×2 (08:47→20:10)
[2022-03-25] MEDS: GABAPENTIN 600 MG TAB PO SCH ×3 (08:48→20:10)
[2022-03-25] MEDS: buPROPion XL 150 MG TABCR PO SCH ×2 (08:48→20:10)
[2022-03-25] MEDS: FAMOTIDINE 20 MG TAB PO SCH (08:48)
[2022-03-25] MEDS: ESCITALOPRAM OXALATE 10 MG TAB PO SCH (08:49)
[2022-03-25] MEDS: PANTOprazole 40 MG TAB PO SCH (08:49)
--- NOTE | 2022-03-25 10:36 | Hospitalist Progress Note ---
Date of Service March 25, 2022 Assessment & Plan (1) Acute exacerbation of chronic obstructive pulmonary disease: Plan: G66 y/o female w/ PMHx of COPD on 2 L home O2, HFpEF, PE on Xarelto, and sarcoidosis who presents for a few days of worsening chest tightness and dyspnea most likely secondary to COPD exacerbation who is slowly clinically improving. Acute Exacerbation of COPD Patient has a history of COPD on 2L NC at home. Patient is a current smoker and has had 3 exacerbations requiring hospitalization the past few months. She is on Flovent (ICS), Anoro Ellipta (LABA/LAMA), and albuterol PRN at home. Her currently symptoms are likely due to a COPD exacerbation. Her progress has been slow, but she does have severe COPD. On exam she still has diffuse wheezing, but slight improvement from yesterday. Continue with current regimen. Goal is clinical improvement prior to discharge. - IV ceftriaxone- finished 7 day course on 03/23 - sputum cx from 03/19 resulted as moderate normal alla - methylpred 40 mg Q8 - scheduled duonebs and PulmCort Respules - encourage ambulation, flutter valve, and IS - Mucinex - as patient has had gradual clinical improvement and increased ability to ambulate, planning for discharge in next few days - approved for pulmonary rehab, will call patient to schedule after discharge Epigastric pain - has had chronic epigastric pain - normal bowel movements. no sign of bleed. - concern of gastroparesis. - continue PPI - GI consulted: Recommending follow up outpatient for any further studies. Tobacco Use Disorder Patient current smoker. counseled on cessation. Started wellbutrin. Can consider nicotine patch if needed for withdrawal symptoms. Previously had insurance issues w/ nicotine replacement therapy and Chantix as outpatient -patient notes she smoked up to 4 packs per day in the last year -notes her cravings worsen with anxiety -encouraged further discussion of anxiety/potential benefit from therapy with PCP after discharge -continue Wellbutrin, taking 150mg BID. HFpEF Last echo w/ EF 60-65 and grade 1 diastolic dysfunction. Euvolemic HLD continue home regimen Chronic Respiratory Failure on 2L O2 at home History of PE (May 2019) on Xarelto Anxiety Continue home escitalopram and Lorazepam as needed Plan FEN/GI: No IV fluids/ low Na diet, switch to NPO at midnight DVT PPx: Xarelto Dispo: PCU Full Code Admission and Anticipated Discharge Date Admission Date: March 16, 2022 Supervising Physician Co-Signing Physician Notes Resident Physician Supervision Note: I independently interviewed and examined the patient and verified the patel history and physical, reviewed labs and image studies and agree with resident findings and care plan. Mirela Milton is a 66 year old female with a past medical history of CHF, PE, COPD, asthma, tobacco use disorder being managed for COPD exacerbation. Patient was seen and examined at bedside. Today she notes slight improvement in her symptoms. She still notes increased SOB while walking, but has noticed some improvement since her admission. Denies any N/V/dizziness today. Has been eating and drinking without issue. She is resting in her recliner at time of encounter. Review of Systems Review of Systems: As per HPi Physical Exam Constitutional: well developed and well nourished; no acute distress Neck: normal visual inspection Respiratory: + cough and + tripod positioning Auscultation: + wheezes Cardiovascular: RRR, no murmur, no edema Skin: no rashes, warm and dry Results & Data Results & Data ([facility]) Vital Signs (Past 12 Hours) Vital Signs Temp Pulse Resp BP Pulse Ox O2 Del Method O2 Flow Rate 03/25/22 07:58 Nasal Cannula 2 03/25/22 07:57 36.8 C 84 20 109/65 93 Nasal Cannula 03/25/22 07:08 77 18 91 Nasal Cannula 2 03/24/22 23:50 36.8 C 79 18 100/63 95 Nasal Cannula 2 Resident Activity Tracking Resident Involvement: Resident Care Provided Care Provided: Adult Hospital Medicine
[2022-03-25] MEDS: RIVAROXABAN 20 MG TAB PO SCH (16:58)
[2022-03-25] MEDS: traZODone HCL 50 MG TAB PO SCH (20:10)
[2022-03-25] MEDS: LORazepam 1 MG TAB PO PRN (20:10)
[2022-03-26] MEDS: methylPREDNISolone 40 MG in SYRINGE 0 ML IV SCH ×3 (01:17→17:30)
[2022-03-26 07:26] LABS: Hematocrit (blood only) 44.2 % (34.1-44.9); Hemoglobin 15.1 g/dl (12.0-16.0); Mean Corpuscular Hemoglobin 32.3 pg (25.0-34.0); Mean Corpuscular Hgb Conc 34.2 g/dL (32.0-36.0); Mean Corpuscular Volume 94.6 fL (80.0-100.0); Mean Platelet Volume 9.8 fL (9.4-12.3); Platelet Count 152 K/uL (130-400); RDW Coefficient of Variation 13.2 % (11.5-14.5); RDW Standard Deviation 45.8 fL (36.4-46.3); Red Blood Count 4.67 M/uL (3.93-5.22)
[2022-03-26] MEDS: BUDESONIDE 0.25 MG/2 ML VIAL (PULMICORT) NEB SCH ×2 (07:28→20:31)
[2022-03-26] MEDS: ALBUT/IPRATROP 3MG/0.5MG NEB 3 ML VIAL NEB SCH ×4 (07:28→20:31)
--- NOTE | 2022-03-26 07:39 | Hospitalist Progress Note ---
Date of Service March 26, 2022 Assessment & Plan (1) Acute exacerbation of chronic obstructive pulmonary disease: Plan: G66 y/o female w/ PMHx of COPD on 2 L home O2, HFpEF, PE on Xarelto, and sarcoidosis who presents for a few days of worsening chest tightness and dyspnea most likely secondary to COPD exacerbation who is slowly clinically improving. Acute Exacerbation of COPD Patient has a history of COPD on 2L NC at home. Patient is a current smoker and has had 3 exacerbations requiring hospitalization the past few months. She is on Flovent (ICS), Anoro Ellipta (LABA/LAMA), and albuterol PRN at home. Her currently symptoms are likely due to a COPD exacerbation. Her progress has been slow, but she does have severe COPD. On exam she still has diffuse wheezing, but slight improvement from yesterday. Continue with current regimen. Goal is clinical improvement prior to discharge. - IV ceftriaxone- finished 7 day course on 03/23 - sputum cx from 03/19 resulted as moderate normal alla - methylpred 40 mg Q8 - scheduled duonebs and PulmCort Respules - encourage ambulation, flutter valve, and IS - Mucinex - planning to discharge tomorrow - approved for pulmonary rehab, will call patient to schedule after discharge Epigastric pain - has had chronic epigastric pain - normal bowel movements. no sign of bleed. - concern of gastroparesis. - continue PPI - GI consulted: Recommending follow up outpatient for any further studies. Tobacco Use Disorder Patient current smoker. counseled on cessation. Started wellbutrin. Can consider nicotine patch if needed for withdrawal symptoms. Previously had insurance issues w/ nicotine replacement therapy and Chantix as outpatient -patient notes she smoked up to 4 packs per day in the last year -notes her cravings worsen with anxiety -encouraged further discussion of anxiety/potential benefit from therapy with PCP after discharge -continue Wellbutrin, taking 150mg BID. HFpEF Last echo w/ EF 60-65 and grade 1 diastolic dysfunction. Euvolemic HLD continue home regimen Chronic Respiratory Failure on 2L O2 at home History of PE (May 2019) on Xarelto Anxiety Continue home escitalopram and Lorazepam as needed Plan FEN/GI: No IV fluids/ low Na diet, switch to NPO at midnight DVT PPx: Xarelto Dispo: PCU Full Code Admission and Anticipated Discharge Date Admission Date: March 16, 2022 Supervising Physician Co-Signing Physician Notes Resident Physician Supervision Note: I independently interviewed and examined the patient and verified the patel history and physical, reviewed labs and image studies and agree with resident findings and care plan. Mirela Milton is a 66 year old female with a past medical history of CHF, PE, COPD, asthma, tobacco use disorder being managed for COPD exacerbation. Patient was seen and examined at bedside. She was seated upright in her bed during time of encounter. Patient states she continues to feel slightly better, she did note some phlegm "caught in her throat" earlier this morning but has since improved. Patient had her nasal cannula oxygen off this morning, states they are doing a trial to see how her O2 saturation tolerates being off oxygen for periods of time. During encounter she had been off the oxygen for about 20 minutes and was still comfortable. Denies any nausea, vomiting, chest pain, or difficulty with urination/bowel movements. Review of Systems Review of Systems: As per HPi Physical Exam Constitutional: well developed and well nourished; no acute distress Neck: normal visual inspection Respiratory: + cough Auscultation: + wheezes Cardiovascular: RRR, no murmur, no edema Gastrointestinal (Abdomen): Percussion/Palpation: abdomen soft; abdomen nontender Skin: no rashes, warm and dry Results & Data Results & Data ([facility]) Vital Signs (Past 12 Hours) Vital Signs Temp Pulse Resp BP Pulse Ox O2 Del Method O2 Flow Rate 03/26/22 07:30 84 18 96 Nasal Cannula 2 03/25/22 22:40 36.7 C 71 18 91/53 L 94 Nasal Cannula 2 03/25/22 20:10 Nasal Cannula 2 Resident Activity Tracking Resident Involvement: Resident Care Provided Care Provided: Adult Hospital Medicine
[2022-03-26 08:07] LABS: BUN Creatinine Ratio 38.8 (10-20); Calcium 8.9 mg/dl (8.5-10.1); Creatinine Clr Calc Pharmacy 60.2 ml/min; Est GFR (African American) 82.2 ml/min; Est GFR (Non-African American) 70.9 ml/min; Potassium 5.1 mmol/L (3.5-5.1)
[2022-03-26] MEDS: buPROPion XL 150 MG TABCR PO SCH ×2 (09:10→20:35)
[2022-03-26] MEDS: guaiFENesin 600 MG TABCR PO SCH ×2 (09:10→20:36)
[2022-03-26] MEDS: PANTOprazole 40 MG TAB PO SCH (09:11)
[2022-03-26] MEDS: GABAPENTIN 600 MG TAB PO SCH ×3 (09:11→20:34)
[2022-03-26] MEDS: ESCITALOPRAM OXALATE 10 MG TAB PO SCH (09:11)
[2022-03-26] MEDS: FAMOTIDINE 20 MG TAB PO SCH (09:11)
[2022-03-26] MEDS: RIVAROXABAN 20 MG TAB PO SCH (17:30)
[2022-03-26] MEDS: traZODone HCL 50 MG TAB PO SCH (20:34)
[2022-03-26] MEDS: LORazepam 1 MG TAB PO PRN (20:35)
[2022-03-27] MEDS: methylPREDNISolone 40 MG in SYRINGE 0 ML IV SCH ×2 (01:16→09:34)
[2022-03-27] MEDS: ALBUT/IPRATROP 3MG/0.5MG NEB 3 ML VIAL NEB SCH ×2 (07:13→11:26)
[2022-03-27] MEDS: BUDESONIDE 0.25 MG/2 ML VIAL (PULMICORT) NEB SCH (07:14)
[2022-03-27 07:27] LABS: Hemoglobin 15.3 g/dl (12.0-16.0); Mean Corpuscular Hemoglobin 32.9 pg (25.0-34.0); Mean Corpuscular Hgb Conc 34.8 g/dL (32.0-36.0); Mean Corpuscular Volume 94.6 fL (80.0-100.0); Mean Platelet Volume 9.5 fL (9.4-12.3); Platelet Count 154 K/uL (130-400); RDW Coefficient of Variation 13.2 % (11.5-14.5); RDW Standard Deviation 45.4 fL (36.4-46.3); Red Blood Count 4.65 M/uL (3.93-5.22); White Blood Count 9.15 K/ul (4.8-10.8)
[2022-03-27 08:01] LABS: Potassium 4.9 mmol/L (3.5-5.1)
[2022-03-27 08:06] LABS: Creatinine Clr Calc Pharmacy 56.8 ml/min; Est GFR (African American) 76.7 ml/min; Est GFR (Non-African American) 66.2 ml/min
[2022-03-27] MEDS: guaiFENesin 600 MG TABCR PO SCH (08:07)
[2022-03-27] MEDS: buPROPion XL 150 MG TABCR PO SCH (08:07)
[2022-03-27] MEDS: GABAPENTIN 600 MG TAB PO SCH ×2 (08:08→14:06)
[2022-03-27] MEDS: PANTOprazole 40 MG TAB PO SCH (08:08)
[2022-03-27] MEDS: FAMOTIDINE 20 MG TAB PO SCH (08:08)
[2022-03-27] MEDS: ESCITALOPRAM OXALATE 10 MG TAB PO SCH (08:08)
--- NOTE | 2022-03-27 12:36 | Discharge Summary ---
Date of Service March 27, 2022 Admission HPI Per Admitting Provider 66 y/o female w/ PMHx of copd, chf, 2L home O2, on Xarelto who presents for a few days of worsening dyspnea and chest tightness while breathing x 3 days. She denies fever/chills, otalgia, abdominal pain, N/V, headache, or urinary symptoms. She reports increased cough productive of yellow sputum. She was recently admitted to [facility] for COPD exacerbation from 03/03/22-03/05/22. She was discharged home on oral prednisone taper. During the first few days, she was feeling well and using 2-3L O2 only on a PRN basis. In the past few days, she has needing it continuously. Her has not been ill and she denies covid exposures. She took her home medications yesterday, but not today. She has received multiple duonebs en-route and in the ED. At admission exam, she reported 9/10 severity dyspnea, feeling only slightly better after ED treatments. RR in the upper 20s. On 4L O2. Afternoon rounds: Patient still reports dyspnea, but continued improvement. RR 18-19. On 2.5L O2. ED course: duonebs and 1.5L NSS. IV magnesium. Admission Exam Per Admitting Provider General: Grossly A&O. NAD. Cooperative. HEENT: Atraumatic, normocephalic. EOMI. Oropharynx w/o erythema or exudate. Pulm: Mild accessory muscle use. Mild tachypnea. Able to converse. Mild crackles at mid and lower lobes. Diffuse fine wheezes. Slightly diminished air entry, but decent. Afternoon exam: Improved air entry; louder, lower pitched wheezes. Cardiac: RRR, -mrg. No LE edema. Abdominal: Nontender, nondistended, soft. Integ: Warm, dry intact. Neuro: No focal deficits. Principal Diagnosis COPD Exacerbation Discharge Exam General: Grossly A&O. NAD. Cooperative. HEENT: Atraumatic, normocephalic. EOMI. Pulm: + wheezes diffusely Cardiac: RRR, -mrg. No LE edema. Integ: Warm, dry intact. No rashes Neuro: No focal deficits. Discharge Data Allergies Allergy/AdvReac Type Severity Reaction Status Date / Time No Known Allergies Allergy Verified 03/03/22 15:54 Consultations 03/16/22 08:43 ED Decision to Admit Stat 03/23/22 11:02 Consult Gastroenterology Routine Ordered Studies 03/24/22 08:00 [place] GI series Routine Hospital Course (1) Acute exacerbation of chronic obstructive pulmonary disease: Karine is a 66 y/o female admitted on 03/16/22 w/ PMHx of COPD on 2 L home O2, HFpEF, PE on Xarelto, and sarcoidosis who presents for a few days of worsening chest tightness and dyspnea most likely secondary to COPD exacerbation. She was previously hospitalized in December 22 and early Mar 24 for COPD exacerbations. Upon admission she was started on IV rocephin 1g, methylpred 40mg q8h, scheduled duonebs/PulmCort Respules, and instructed on use of flutter valve and incentive spirometer. She was also started on Wellbutrin 150mg for smoking cessation. She was also started on 2L NC. After several days, Karine's symptoms slowly started to show some improvement. She was able to walk further distances before becoming short of breath, and noted improvement of her cough. She completed 7 days of ro cephin and her Wellbutrin was increased to 150mg BID. She noted that the rib/chest tightness stayed about the same during this time. Her symptoms continued to slowly improve, and after 9 days, respiratory therapy trialed periods of time without supplemental oxygen. She tolerated this well and maintained good oxygen saturation during the remainder of her stay. We discussed the importance of not returning to smoking after discharge, she seems hopeful that Wellbutrin will continue to work. We sent a referral to pulmonary rehab at [facility], discussed this several times with Karine and she was hesitant about proceeding with it. Pulm rehab should still call patient after discharge to possibly begin sessions. At time of discharge, Karine was given a prednisone taper of 60mg x 5 days, 40mg x 5 days, 20mg x 5 days, 10mg x 5 days. Prescriptions for pantoprazole and Wellbutrin were also sent to pharmacy. Patient was instructed that she could continue to use her home oxygen as needed for SOB with exertion, also discussed that she should continue her home Flovent, Anoro Ellipta, and albuterol inhaler. She was instructed to follow up with her PCP in 1 week and should contact her plasterer tender for follow up in next few weeks. Patient notes that she has an appointment with Dr. Baxter in May (her previous plasterer tender left the practice), encouraged patient to reach out to pulm practice to see if sooner appointment is available with any provider as it is very important that she has a close follow up. She was discharged on 03/27. During the stay, Karine stated she has had chronic epigastric pain and expressed concern for gastroparesis. A GI consult was completed with upper GI barium swallow study that showed small hiatal hernia and mild esophageal dysmotility. She was started on pantoprazole 40mg. It was discussed that an EGD could be considered, but patient was not interested in that at current time. We also spent time discussing the roll of anxiety in her tobacco use disorder. Karine seemed open to the idea of discussing this further with PCP after discharge. Total Time Total Time Spent Total Time Spent (In Minutes): . . Discharge Plan Discharge Items Patient Disposition: Home - Self-Care Reason For Visit: DYSPNEA Discharge Diagnosis: COPD Exacerbation Activity: Per Instructions section Non-emergency contact: Primary Care Provider and Human Resources Director Call non-emergency contact if: you have any medication questions and your symptoms worsen Follow-up/Referrals: Nichole Farfan CRNP [Primary Care Provider] - Diet: Low Sodium (2gm) Addtl Attending Provider Instructions: Medications: -You will be discharged on a taper of prednisone: the instructions are take 6 tablets each day for 5 days, then take 4 tablets each day for 5 days, then take 2 tablets each day for 5 days, then take 1 tablet each day for 5 days -Continue your home inhalers including Flovent (ICS), Anoro Ellipta (LABA/LAMA), and albuterol. -We started you on Wellbutrin 150 mg taken at morning and night time, sent the prescription to your pharmacy. -The GI doctor started you on Pantoprazole, I sent the prescription to your pharmacy. -Take your other medications as you did before We have discussed the importance of continuing to not smoke. The Wellbutrin s eems to be working well but we also talked about how anxiety seems to make your cravings to smoke worse. I recommend you speak with your primary care doctor about setting up therapy/counseling to address your anxiety. It is very important that you make follow up appointments with both your primary care doctor and your plasterer tender for the next 1-2 weeks. A referral was placed for pulmonary rehab, I strongly encourage that you complete the pulmonary rehab. They will call you to set up sessions. Pending Studies at Discharge: No Stand-Alone Forms: [facility], Smoking Cessation Medications and DC Order Prescriptions: New bupropion HCl 150 mg Tablet Extended Release 24 Hr 150 mg PO BID 30 Days Qty: 60 2RF pantoprazole 40 mg Tablet,Delayed Release (Dr/Ec) 40 mg PO QAM 30 Days Qty: 30 2RF prednisone 10 mg tablet See Rx Instructions .ROUTE .COMPLEX Qty: 65 0RF Rx Instructions: Take 6 tablets for 5 days, then take 4 tablets for 5 days, then take 2 tablets for 5 days, and then take 1 tablet for 5 days. Continued Flovent HFA 110 mcg/actuation HFA aerosol inhaler 2 puff inhalation BID Qty: 12 5RF trazodone 50 mg tablet 50 mg PO HS Qty: 90 3RF Xarelto 20 mg tablet 20 mg PO HS Qty: 30 5RF lorazepam [Ativan] 1 mg tablet 1 mg PO DAILY PRN (Reason: Anxiety) Qty: 30 3RF albuterol sulfate [Ventolin HFA] 90 mcg/actuation HFA aerosol inhaler 2 puff inhalation QID PRN (Reason: Shortness Of Breath Or Wheezing) Qty: 18 11RF Rx Instructions: PER 1ST Anoro Ellipta 62.5-25 mcg/actuation blister with device 1 inh inhalation QAM Qty: 60 5RF meloxicam 7.5 mg tablet 7.5 mg PO QPM Qty: 90 3RF escitalopram oxalate 10 mg tablet 10 mg PO DAILY Qty: 90 3RF gabapentin 600 mg tablet 600 mg PO TID Qty: 90 5RF Label Comments: Patients next dose is 03/03 @ 1700 albuterol sulfate 2.5 mg /3 mL (0.083 %) solution for nebulization 2.5 mg INHALATION QID PRN (Reason: Shortness Of Breath Or Wheezing) Qty: 270 5RF buspirone 10 mg tablet 10 mg PO BID rosuvastatin 5 mg tablet PO DAILY Discontinued famotidine 20 mg tablet 20 mg PO DAILY Qty: 30 0RF Discharge Orders: Discharge Order (Routine); Ordered 03/27/22 Ordered By: Alana Figueroa Admission Data Admit Date/Time: 03/16/22 10:01 Attending Provider: Nicolasa Koehler Admit Provider: David Almonte Primary Care Provider: Nichole Farfan Other Providers: Vaibhav Gutierrez ; Lucas Cerda ; Moo Schroeder Other Interventions: Discharge Summary Assessment (RN) Last Done: 03/27/22 15:37 Supervising Physician Co-Signing Physician Notes Resident Physician Supervision Note: I independently interviewed and examined the patient and verified the patel history and physical, reviewed labs and image studies and agree with resident findings and care plan.
== END 2022-03-27 16:37 | disposition home or self-care (01) | DRG 191 ==
LOC: ED 05:52 → EDINP 10:01 → SUATTDRO 10:01 → EDINP 13:53 → 2S 14:16 → 3W 03-18 15:06

== ENCOUNTER 2023-07-18 10:26 | Inpatient (IN) ==
--- NOTE | 2023-07-04 14:59 | PAT Medication Instructions ---
Medication Instructions Date of Service July 04, 2023 Home Medications Medication Instructions Recorded albuterol sulfate 2.5 mg/3 mL 2.5 mg (3 mL) inhalation QID PRN 07/28/21 (0.083 %) solution for nebulization Shortness Of Breath Or Wheezing #270 mL trazodone 50 mg tablet 50 mg PO HS #90 tabs 07/18/22 albuterol sulfate 90 mcg/actuation 2 puff inhalation QID PRN 01/09/23 aerosol inhaler (Ventolin HFA) Shortness Of Breath Or Wheezing #18 grams Wheelchair (Powered) (Power #1 ea 01/12/23 Wheelchair) rivaroxaban 20 mg tablet (Xarelto) 20 mg PO HS #30 tabs 01/19/23 Therapist Evaluation for Power #1 ea 01/30/23 Mobility fluticasone propionate 110 2 puff inhalation BID #3 Inhalers 02/02/23 mcg/actuation HFA aerosol inhaler (Flovent HFA) umeclidinium 62.5 mcg-vilanterol 1 inh inhalation QAM #60 ea 03/15/23 25 mcg/actuation powdr for inhalation (Anoro Ellipta) lorazepam 1 mg tablet (Ativan) 1 mg PO DAILY PRN Anxiety #30 tabs 05/31/23 varenicline 1 mg tablet 1 mg PO BID #60 tabs 06/05/23 gabapentin 800 mg tablet 800 mg PO HS #30 tabs 06/12/23 rosuvastatin 5 mg tablet 5 mg PO QAM #90 tabs 06/12/23 Flutter Valve #1 ea 06/23/23 sodium chloride 7 % for 4 ml inhalation BID 30 days #240 mL 06/23/23 nebulization oxycodone 5 mg tablet 5 mg PO Q4H PRN pain #60 tabs 06/29/23 albuterol sulfate 2.5 mg/3 mL (0.083 %) solution for nebulization 2.5 mg (3 mL) inhalation QID PRN Shortness Of Breath Or Wheezing trazodone 50 mg tablet 50 mg PO HS albuterol sulfate 90 mcg/actuation aerosol inhaler (Ventolin HFA) 2 puff inhalation QID PRN Shortness Of Breath Or Wheezing rivaroxaban 20 mg tablet (Xarelto) 20 mg PO HS fluticasone propionate 110 mcg/actuation HFA aerosol inhaler (Flovent HFA) 2 puff inhalation BID umeclidinium 62.5 mcg-vilanterol 25 mcg/actuation powdr for inhalation (Anoro Ellipta) 1 inh inhalation QAM gabapentin 600 mg tablet 600 mg PO .QAM & AFTERNOON lorazepam 1 mg tablet (Ativan) 1 mg PO DAILY PRN Anxiety varenicline 1 mg tablet 1 mg PO BID gabapentin 800 mg tablet 800 mg PO HS rosuvastatin 5 mg tablet 5 mg PO QAM sodium chloride 7 % for nebulization 4 ml inhalation BID 30 days oxycodone 5 mg tablet 5 mg PO Q4H PRN pain cholecalciferol (vitamin D3) 25 mcg (1,000 unit) tablet (Vitamin D3) 25 mcg PO QAM escitalopram oxalate 10 mg tablet 10 mg PO QAM pantoprazole 40 mg tablet,delayed release 40 mg PO QAM tizanidine 4 mg tablet 4 mg PO BID muscle spasticity Continue as directed gabapentin 600 mg tablet 600 mg PO .QAM & AFTERNOON lorazepam 1 mg tablet (Ativan) 1 mg PO DAILY PRN Anxiety (if needed) ASK your prescriber and surgeon rivaroxaban 20 mg tablet (Xarelto) 20 mg PO HS (in order to get spinal anesthesia DOS- must be off Xarelto/rivaroxaban for at least 72 hours) DO NOT take the morning of surgery varenicline 1 mg tablet 1 mg PO BID cholecalciferol (vitamin D3) 25 mcg (1,000 unit) tablet (Vitamin D3) 25 mcg PO QAM Take morning of surgery With a small sip of water, OTHERWISE NOTHING TO EAT OR DRINK AFTER MIDNIGHT: albuterol sulfate 2.5 mg/3 mL (0.083 %) solution for nebulization 2.5 mg (3 mL) inhalation QID PRN Shortness Of Breath Or Wheezing (if needed) albuterol sulfate 90 mcg/actuation aerosol inhaler (Ventolin HFA) 2 puff inhalation QID PRN Shortness Of Breath Or Wheezing (use if needed; please bring with you to hospital day of surgery if possible) fluticasone propionate 110 mcg/actuation HFA aerosol inhaler (Flovent HFA) 2 puff inhalation BID umeclidinium 62.5 mcg-vilanterol 25 mcg/actuation powdr for inhalation (Anoro Ellipta) 1 inh inhalation QAM gabapentin 600 mg tablet 600 mg PO .QAM & AFTERNOON rosuvastatin 5 mg tablet 5 mg PO QAM sodium chloride 7 % for nebulization 4 ml inhalation BID 30 days oxycodone 5 mg tablet 5 mg PO Q4H PRN pain (if needed) escitalopram oxalate 10 mg tablet 10 mg PO QAM pantoprazole 40 mg tablet,delayed release 40 mg PO QAM tizanidine 4 mg tablet 4 mg PO BID muscle spasticity (if needed) Take evening before surgery albuterol sulfate 2.5 mg/3 mL (0.083 %) solution for nebulization 2.5 mg (3 mL) inhalation QID PRN Shortness Of Breath Or Wheezing (if needed) trazodone 50 mg tablet 50 mg PO HS albuterol sulfate 90 mcg/actuation aerosol inhaler (Ventolin HFA) 2 puff inhalation QID PRN Shortness Of Breath Or Wheezing (if needed) fluticasone propionate 110 mcg/actuation HFA aerosol inhaler (Flovent HFA) 2 puff inhalation BID varenicline 1 mg tablet 1 mg PO BID gabapentin 800 mg tablet 800 mg PO HS sodium chloride 7 % for nebulization 4 ml inhalation BID 30 days oxycodone 5 mg tablet 5 mg PO Q4H PRN pain (if needed) tizanidine 4 mg tablet 4 mg PO BID muscle spasticity (if needed) Other Notes If you have any questions please call us at [phone] or [phone] or [phone] or [phone]
--- NOTE | 2023-07-10 09:52 | Anesthesiology Consultation ---
Date of Service July 10, 2023 Assessment & Plan (1) Encounter for pre-operative examination: Chart Review Chart Review: Pending: Refer to Additional Notes / Consult section (pending PCP office visit 07/17/22 and response from pulmonary regarding pulmonary status for surgery ) and Patient seen in Pre Admission Testing - Sent to ER due to hypotension in PAT- patient seen in triage in ER- BP was 115/65- patient asymptomatic. ER discharged patient- patient did have PAT testing completed. Workload note sent to PCP- requesting PCP clearance prior to surgery. Per PCP workload 07/10/23= seen for routine visit 06/12/23- as long as pulmonary clears patient- preop testing looks stable and she can proceed. She has very severe COPD. She is not on BP lowering medications but recently started on oxycodone. (Per patient has not started taking yet). If preop visit required- can be scheduled with anyone in the office. Discussed with Dr. Schaefer recommend PCP evaluation- being seen 07/17/23. - Workload note sent to pulmonary inquiring if patient stable form pulmonary standpoint for upcoming surgery- awaiting response - Patient is NOT an OPJ candidate Per PAT appt on 07/10/23, no recent illness/disease exposures, illness related symptoms, or recent illness/disease positive tests. Will leave to surgeon's discretion if preop Covid testing needed Last seen by pulmonology 06/23/23= patient for routine follow up. COPD-severe COPD. Continue inhalers. DOEpersistent likely multifactorial in the patient with severe COPD, bronchiectasis and chronic pain. Was able to walk for 2 minutes before she desaturated to 87%. Remained greater than 90% on 1 L nasal cannula. Should be using her oxygen on daily basis with at least 1 L on exertion. Tobacco abuseencourage smoking cessation. CT with right-sided pleural effusionfollow-up CT in March showed resolution of pleural effusion. Bedside ultrasound today in office without findings of effusion. Review of CT shows stable findings in the left perihilar area which dates back several years and appears stable at this time. Bronchiectasisnoted on CT. Patient with persistent ongoing cough. Occasionally productive. Did not perform sputum cultures until today. Pending at this time. Generally concerned given patient's continued unintentional weight loss and productive coughmay be experiencing a chronic pulmonary infection process which could be contributing to her symptoms. Will await her AFB and sputum cultures and discuss treatment moving forward. Unintentional weight lossconcerning 67-year-old with severe COPD and findings of bronchiectasis on CT. Could be experiencing pulmonary cachexiagiven her advanced COPD but certainly could be experiencing a chronic NTM like infection given her ongoing unintentional weight loss, ongoing cough, shortness of breath. Follow-up in 1 month. Teaching & Discussion Pre-Anesthesia Teaching/Discussion Notes: Instructed NPO after midnight before surgery,except medications with 15 cc of water. Medication instructions provided according to the PAT guidelines. History Surgery Operation Date: 07/18/23 11:05 Proposed Procedures p Right Total Hip Arthroplasty - Luis Kelley MD Height/Weight Height: 5 ft 3 in Weight: 64.41 kg Allergies Allergy/AdvReac Type Severity Reaction Status Date / Time No Known Allergies Allergy Verified 07/04/23 10:48 Medications Home Medications Medication Instructions Recorded Confirmed Last Taken albuterol sulfate 2.5 mg/3 mL 2.5 mg (3 mL) inhalation QID PRN 07/28/21 07/04/23 03/03/22 (0.083 %) solution for nebulization Shortness Of Breath Or Wheezing #270 mL trazodone 50 mg tablet 50 mg PO HS #90 tabs 07/18/22 07/04/23 Unknown albuterol sulfate 90 mcg/actuation 2 puff inhalation QID PRN 01/09/23 07/04/23 Unknown aerosol inhaler (Ventolin HFA) Shortness Of Breath Or Wheezing #18 grams Wheelchair (Powered) (Power #1 ea 01/12/23 06/09/23 Unknown Wheelchair) rivaroxaban 20 mg tablet (Xarelto) 20 mg PO HS #30 tabs 01/19/23 07/04/23 Unknown Therapist Evaluation for Power #1 ea 01/30/23 06/09/23 Unknown Mobility fluticasone propionate 110 2 puff inhalation BID #3 Inhalers 02/02/23 07/04/23 Unknown mcg/actuation HFA aerosol inhaler (Flovent HFA) umeclidinium 62.5 mcg-vilanterol 1 inh inhalation QAM #60 ea 03/15/23 07/04/23 Unknown 25 mcg/actuation powdr for inhalation (Anoro Ellipta) gabapentin 600 mg tablet 600 mg PO .QAM & AFTERNOON 10/11/23 01/02/24 Unknown lorazepam 1 mg tablet (Ativan) 1 mg PO DAILY PRN Anxiety #30 tabs 05/31/23 07/04/23 Unknown varenicline 1 mg tablet 1 mg PO BID #60 tabs 06/05/23 07/04/23 Unknown gabapentin 800 mg tablet 800 mg PO HS #30 tabs 06/12/23 07/04/23 Unknown rosuvastatin 5 mg tablet 5 mg PO QAM #90 tabs 06/12/23 07/04/23 Unknown Flutter Valve #1 ea 06/23/23 06/23/23 Unknown sodium chloride 7 % for 4 ml inhalation BID 30 days #240 mL 06/23/23 07/04/23 Unknown nebulization oxycodone 5 mg tablet 5 mg PO Q4H PRN pain #60 tabs 06/29/23 07/04/23 Unknown cholecalciferol (vitamin D3) 25 25 mcg PO QAM 07/04/23 07/04/23 Unknown mcg (1,000 unit) tablet (Vitamin D3) escitalopram oxalate 10 mg tablet 10 mg PO QAM 07/04/23 07/04/23 Unknown pantoprazole 40 mg tablet,delayed 40 mg PO QAM 07/04/23 07/04/23 Unknown release tizanidine 4 mg tablet 4 mg PO BID muscle spasticity 07/04/23 07/04/23 Unknown Past Medical History Medical History Avascular necrosis of bone of right hip Anxiety with depression Osteoporosis Scoliosis History of pulmonary embolism 2019: post-op shoulder replacement ~2020: unknown etiology Patient taking Xarelto Chronic respiratory failure 2 LPM oxygen PRN Follows with [facility] pulmonary Sarcoidosis Follows with [facility] pulmonary (pulmonary ) COPD (chronic obstructive pulmonary disease) COPD/emphysema Breathing stable per patient Exercise / Class Metabolic Activity III < 4 Walking/Shop/Light housework (no chest pain, mild SOB with flat surface ambulation (due to hip pain)- uses cane to ambulate (no issues with ambulating at home (no SOB or chest pain)) Past Family History Family History Father Myocardial infarction Brother Anxiety COPD (chronic obstructive pulmonary disease) Daughter Anxiety Sister Breast cancer Other Diabetes Kidney disease No family history of adverse response to anesthesia Denies family history of Ovarian cancer Prostate cancer Colorectal cancer Past Surgical History Surgical History History of esophagogastroduodenoscopy (EGD) History of lung biopsy History of bronchoscopy History of right shoulder replacement Hx of colonoscopy Hx of elbow surgery Right H/O hysterectomy for benign disease History of hip replacement Left PREETI (09/11/17): SAB x1 at L3-L4 at [facility] Past Anesthesia History No Hx of Anesthesia Complications and No Family Hx of Anesthesia Complications History of PONV No Hx of PONV and No Hx of Motion Sickness Social History Smoking Status: Current every day smoker tobacco type: cigarettes Smoking cigarettes per day: 1 ppd (advised on policy) Do You Dip or Chew Tobacco: No Hx Alcohol Use: No Hx Substance Use: No substance use type: does not use Review of Systems - Hx of snoring- no hx of sleep study - Mild upper abdominal pressure (ongoing x 1-2 years)- did have upper GI series in 03/2022 that showed small hiatal hernia and mild esophageal dysmotility Patient denies chest pain, shortness of breath at rest, reflux, cough, wheezing, palpitations. No hx of seizures, stroke, TN, apnea/snoring. No hx of blood transfusions Physical Exam Vital Signs VITALS BP 84/60 (left arm manually); 84/58 (right arm)- manually) (denies dizziness or lightheadedness, SOB; limited activity due to hip pain) P 80 TEMP 98.3 SP02 88-89% on RA (increased to 90% with deep inspiration) RESP 16 Constitutional no acute distress ENMT Mouth: no TMJ clicking Thyromental Distance: > or= 3.5 Finger Breadths (3.5) Mallampati Class: III Full dentures on the top Missing all bottom teeth Neck + limited neck extension Respiratory normal respiratory effort; no respiratory distress Auscultation: lungs clear to auscultation bilaterally and + diminished lung sounds (significant decreased throughout); no wheezes Cardiovascular Rate/Rhythm: regular rate and regular rhythm Heart Sounds: no murmur Vessels: no carotid bruit Musculoskeletal Spine: no pain with cervical ROM Extremities: extremities normal to inspection Psychiatric Orientation: alert Lab Results Anesthesia Preop Results Results Anesthesia Widget: WBC 5.20 K/ul (4.8-10.8) 07/10/23 Hgb 13.7 g/dl (12.0-16.0) 07/10/23 Hct 40.2 % (37.0-47.0) 07/10/23 Plt 192 K/uL (130-400) 07/10/23 Na 138 mmol/L (136-145) 07/10/23 K 3.9 mmol/L (3.5-5.1) 07/10/23 Cl 101 mmol/L (98-107) 07/10/23 CO2 31 mmol/L (21-32) 07/10/23 BUN 14 mg/dl (6-23) 07/10/23 Creat 0.76 mg/dl (0.6-1.2) 07/10/23 Glucose Level 89 mg/dl (70-99(Fasting)) 07/10/23 PT 11.9 Seconds (9.0-12.0) 07/10/23 PTT 33 Seconds (21-31) H 07/10/23 INR 1.1 (0.9-1.1) 07/10/23 Blood Type A Negative 07/10/23 Antibody Screen NEGATIVE 07/10/23 Testing Electrocardiogram Date: 07/10/23 Findings: + NSR @ (80bpm) Rightward axis Pulmonary disease pattern When compared to EKG from Apr 12, 2023- no significant change was found per cardio Chest X-Ray Date: 07/10/23 FINDINGS: PA and lateral chest radiographs are compared to study dated 04/12/2023 and correlated with chest CT dated 03/09/2023. The cardiomediastinal silhouette is top normal for projection. There are calcified mediastinal and hilar lymph nodes. Advanced emphysema and chronic interstitial thickening similar to previous. There are numerous calcified granulomas. A calcified masslike opacity in the left perihilar region is unchanged. Additional foci of parenchymal scarring are seen throughout both lungs question trace pleural effusions. There is no pneumothorax. The skeletal structures are osteopenic. The bony thorax appears intact. Degenerative change and hyperkyphosis is noted in the thoracic spine. A right shoulder arthroplasty is in place. IMPRESSION: 1. Advanced emphysema with chronic parenchymal changes/granulomatous disease as above. 2. No superimposed airspace consolidation is seen typical for pneumonia. 3. Question trace pleural effusions Echocardiogram Date: 09/30/20 EF: 60-65% LV Function: normal RWMA: + none Other Findings: + LVH (mild/concentric ) and + diastolic dysfunction (Grade I ) Valvular Disease: + no significant valvular disease RV moderately dilated Other Testing Chest CT 03/09/23= Interval stability of pulmonary fibrotic changes, emphysema, and left perihilar mass. Previously noted right pleural effusion has decreased in size.
[~2023-07-18 10:26] MED LIST changes: -ACETAMINOPHEN 500 MG TAB PO SCH; -CEFAZOLIN 1000MG 1,000 MG/7.5 ML SYR IV SCH; -CeleBREX 200 MG CAP PO SCH; -DEXAMETHASONE SOD INJ 4 MG/ML VIAL ONE; -EPINEPHrine INJ 1 MG/ML AMP ONE; -FAMOTIDINE 20 MG TAB PO SCH; -GABAPENTIN 600 MG DOSE PO SCH; -GLYCOPYRROLATE 0.2 MG/ML VIAL ONE; -LARYING-O-JET KIT (LTA) ONE; -LIDOCAINE HCL 2% 2 ML VIAL/AMP(20MG/ML) INFIL ONE; -LR 15ML/HR IV SCH; -NEOSTIGMINE METHYLSULFATE 5 MG/5 ML SYR ONE; -ONDANSETRON INJ 2 MG/ML 2 ML VIAL ONE; -PHENYLEPHRINE 100MCG/ML 5ML SYR ONE; -PROPOFOL IV EMULSION 10 MG/ML 20 ML VIAL IV ONE; -ROCURONIUM BROMIDE 10 MG/ML 5 ML VIAL ONE; -ROPIVACAINE 0.5% 5 MG/ML 30 ML VIAL ONE; -dexAMETHasone 4 MG TAB PO SCH; -ePHEDrine sulfate 50 MG/ML SYR ONE; +fentaNYL citrate PF 100 MCG/2 ML VIAL ONE
--- NOTE | 2023-07-18 11:11 | History & Physical Bridge Note ---
Date of Service July 18, 2023 History & Physical Bridge Note I have examined the patient, reviewed the History & Physical and in the interval since the performance of the History & Physical I have noted the following changes of clinical significance: no changes noted
[2023-07-18] MEDS: LR 500ML BOLUS, THEN 15ML/HR IV SCH (12:00)
[2023-07-18] MEDS: FAMOTIDINE 20 MG TAB PO SCH (12:10)
[2023-07-18] MEDS: CeleBREX 200 MG CAP PO SCH (12:10)
[2023-07-18] MEDS: ACETAMINOPHEN 500 MG TAB PO SCH ×2 (12:10→20:10)
[2023-07-18] MEDS: METOCLOPRAMIDE HCL 10 MG TABLET PO SCH (12:10)
[2023-07-18] MEDS: Scopolamine 1 MG TDSY TD SCH (12:11)
[2023-07-18] MEDS: dexAMETHasone**PF** 10 MG/ML VIAL IV SCH (12:11)
[2023-07-18] MEDS: LR 60ML/HR IV SCH (12:16)
[2023-07-18] MEDS ORDERED: PROPOFOL IV EMULSION 10 MG/ML 20 ML VIAL IV ONE (12:16)
[2023-07-18] MEDS ORDERED: ONDANSETRON INJ 2 MG/ML 2 ML VIAL IV PRN ×3 (12:22→18:59)
[2023-07-18] MEDS ORDERED: ePHEDrine sulfate 50 MG/ML AMP IV PRN ×2 (12:22→12:33)
[2023-07-18] MEDS ORDERED: ATROPINE SULFATE 0.1 MG/ML 10ML SYR IV PRN ×2 (12:22→12:33)
[2023-07-18] MEDS: ALBUT/IPRATROP 3MG/0.5MG NEB 3 ML VIAL NEB STA (12:35)
[2023-07-18] MEDS: TRANEXAMIC ACID 1,000 MG **IV Pre-op IV SCH (13:11)
[2023-07-18] MEDS ORDERED: KETAMINE HCL 10MG/ML SYR ONE (13:15)
[2023-07-18] MEDS: ceFAZolin 2000MG 2,000 MG/15 ML SYR IV SCH (13:40)
[2023-07-18] MEDS ORDERED: ePHEDrine sulfate 50 MG/5 ML SYR ONE (13:55)
[2023-07-18] MEDS ORDERED: ONDANSETRON INJ 2 MG/ML 2 ML VIAL ONE (13:55)
[2023-07-18] MEDS ORDERED: PHENYLEPHRINE HCL 10 MG/ML VIAL ONE (13:55)
[2023-07-18] MEDS ORDERED: PHENYLEPHRINE 100MCG/ML 10ML SYR IV ONE (13:55)
[2023-07-18] MEDS: BUPIVACAINE/EPINEPHRINE 0.5% MPF 1:200,000 30 ML VIAL ONE (14:35)
--- NOTE | 2023-07-18 15:28 | Operative Report ---
[facility] Post Operative Report Pre & Post Diagnosis Operation Date: 07/18/23 12:30 Pre-Op Diagnosis: Right Hip Subchondral Fracture/Likely avascular necrosis Post-Op Diagnosis: Right Hip Avascular Necrosis with subchondral fracture I identified the patient and participated in the time-out.: Yes Procedure Operation Date: 07/18/23 12:30 Actual Procedures p Right Total Hip Arthroplasty(Right) - Luis Kelley MD Surgeon Luis Kelley MD Last Model Department Supervisor Frederick Rivera PA-C Estimated Blood Loss 200 Findings Consistent with Post-Op Diagnosis Operative findings revealed large subchondral delaminated fracture of the bone likely related to avascular necrosis. She had a large hip joint effusion. Specimens Right femoral head sent for pathology. Anesthesia Type Spinal MAC Complications none Disposition Accompanied Patient To Recovery: No Indications Patient is 67-year-old female with multiple medical comorbidities who acute onset of right hip pain several months ago. She does have a history of a vast necrosis of the left hip and had it replaced several years ago. X-rays suggested a subchondral fracture. MRI showed a fairly significant subchondral fracture with some bone marrow edema and hip joint effusion. She failed conservative measures. She elected proceed with surgical treatment. Description of Procedure Operative implants consist of: 1 Biomet G7 size 52 mm acetabular shell. 2. [place] freight coordinator. 3. 6.5 cancellous acetabular screws 1 at 35 mm in length and 1 to 20 mm length. 4. Highly cross-linked polyethylene liner with a 52 mm outer diameter and 36 mm inner diameter. 5. DePuy [place] size 3 high offset cemented femoral stem. 6. +5/36 mm ceramic articular ball. The patient was taken the operating, identified, placed on the operating table in the supine position. All contact areas were properly padded. IV antibiotics tried by anesthesia team. A spinal anesthetic and been implemented holding area. Ravi catheter was placed in sterile fashion. The patient was then placed in the left lateral decubitus position. An axillary roll was placed. Distal Birkett position was used for positioning. The right hip and leg were then prepped and draped in usual sterile fashion. A posterolateral approach of the right hip was then performed to a curvilinear incision centered over the greater trochanter. Sharp dissection carried through subcutaneous tissue down to level the IT band gluteal fascia. The IT band gluteal fascia incised longitudinally in line with skin incision. The underlying greater bursa was excised. The piriformis and external rotators along with the posterior hip joint capsule were then released from the posterior aspect of the hip as a single layer. She had a large hip joint effusion. The hip was internally rotated and dislocated. Femoral neck osteotomy cut was made. She really did not have much lesser trochanter to a visual communications instructor of the cut length of problem. Estimated about a centimeter above what looks to be the remnant of the lesser trochanter. Femoral head was removed and sent for pathology. The femur was retracted anteriorly. Attention drawn the acetabulum. The acetabular labrum was excised. The pulmonary fat was excised. Sequential reaming the acetabular was then performed again with a size 45 and progressing up to 51. I reamed a little bit with a 52 reamer and placed a 52 mm G7 a cetabular shell in about 40 degrees lateral opening and 20 to 25 degrees of anteversion. It was fixed with two 6.5 cancellous acetabular screws. Trial liner was placed. Attention drawn the femur. Proximal femur was entered with a cookie cutter followed by canal finder and lateralizing reamer. I then broached beginning with size 1 and progressing up to a 3. Got good metaphyseal fit at 3. We trialed the hip and the standard stem just had too much soft tissue laxity. With a high offset stem seem to recreate soft tissue tension and leg length appropriate. Was fully stable full extension and external rotation and flexion to 90 degrees internal Tatian over [address] I elected to place these implants. All trial implants were removed. An apex hole supply controller was placed. Highly cross-linked polyethylene liner was placed. A small cement restrictor was placed distally. A double batch [place] G cement was mixed. This was injected into the canal and then a size 3 high offset cemented stem was then placed. All extraneous cement was removed. Once the cement hardened a +5/36 mm ceramic articular ball was placed in the hip was located and once again found to be stable. Leg lengths appeared equal. We elected to proceed with closing. The wound was irrigated coconuts pulsatile lavage solution. I did inject locally with 60 cc of half percent Marcaine with epinephrine. The posterior capsule and external rotators were then repaired through drill holes in the posterior trochanter as a single layer with #2 Tycron suture. The IT band gluteal fascia then closed in 1 PDS suture in running fashion for the subcutaneous tissues then closed with 2 Dexon suture in a buried interrupted fashion. Skin was closed with skin tariq. A sterile dressing was Xeroform, 4 fours, ABD pad and foam tape was applied. The patient then transferred to the recovery in stable condition. Patient tolerated the procedure well and there were no complications. Frederick Rivera, my physician educational program assistant, was present for the entire procedure. His assistance was essential and required for appropriate patient positioning, prepping and draping, surgical exposure, performing the technical details of the operation, placement the implants, closure of the wound, and placement of the sterile bandage. I attest to the content of the Intraoperative Record and any orders documented therein. Any exceptions are noted below.
--- NOTE | 2023-07-18 15:54 | XRay Report ---
AP PELVIS, CROSSTABLE LATERAL RIGHT HIP History: Right total hip arthroplasty. Right hip avascular necrosis. Postop. FINDINGS: The patient is status post a right total hip arthroplasty. The hardware is intact. No fract ure or dislocation. Skin tariq are in place. Evidence for prior left total hip arthroplasty. IMPRESSION: Right total hip arthroplasty. No evidence for hardware complication ACT 112: Negative or not required by law. Electronically signed by: Zack Dixon M.D. 07/18/2023 3:52 PM
--- NOTE | 2023-07-18 15:57 | Anesthesiology Progress Note ---
Date of Service July 18, 2023 Anesthesia Post Procedure Vital Signs Vital Signs: Temp Pulse Pulse Resp BP Pulse Ox O2 Del Method 07/18/23 15:45 80 16 103/64 97 Nasal Cannula 07/18/23 15:35 36.7 C 82 20 103/82 98 Nasal Cannula 07/18/23 15:25 36.7 C 81 20 110/70 98 Nasal Cannula 07/18/23 15:15 36.7 C 84 16 112/67 97 Nasal Cannula 07/18/23 12:35 80 18 92 Room Air 07/18/23 12:17 Room Air 07/18/23 11:30 37.1 C 94 H 24 132/81 92 Room Air O2 Flow Rate 07/18/23 15:45 2 07/18/23 15:35 2 07/18/23 15:25 2 07/18/23 15:15 2 07/18/23 12:35 07/18/23 12:17 07/18/23 11:30 Pain Intensity Right Hip: Pain Intensity: 5 Transfer of Care Handoff Completed per policy Notes Mental Status: alert / awake / arousable and participated in evaluation Patient Amnestic to Procedure: Yes Nausea / Vomiting: adequately controlled Pain: adequately controlled Airway Patency, RR, SpO2: stable & adequate BP & HR: stable & adequate Hydration State: stable & adequate Neuraxial Anesthesia: was administered and sensory block is resolving Anesthetic Complications: no major complications apparent and Pt Satisfied with anesthetic care
[2023-07-18] MEDS: fentaNYL citrate PF 100 MCG/2 ML VIAL IV PRN ×2 (16:03→17:20)
[2023-07-18] MEDS ORDERED: oxyCODONE HCL IR 5 MG TAB (IMMEDIATE RELEASE) PO PRN (18:59)
[2023-07-18] MEDS ORDERED: MAGNESIUM HYDROXIDE SUSP 30 ML UDC PO PRN (18:59)
[2023-07-18] MEDS ORDERED: ALBUTEROL 0.083% NEBU SOLN 3 ML VIAL INH PRN (18:59)
[2023-07-18] MEDS ORDERED: METOCLOPRAMIDE HCL INJ 5 MG/ML 2 ML VIAL IV PRN (18:59)
[2023-07-18] MEDS ORDERED: ALUMINUM/MAGNESIUM SUSP 30 ML UDC PO PRN (18:59)
[2023-07-18] MEDS ORDERED: bisacodyL 10 MG SUPP PR PRN (18:59)
[2023-07-18] MEDS ORDERED: NALOXONE HCL 0.4 MG/1 ML VIAL/CARP IV PRN (18:59)
[2023-07-18] MEDS: SODIUM CHLORIDE 0.9% 1,000 ML IV SCH (20:09)
[2023-07-18] MEDS: ceFAZolin 1000MG 1,000 MG/7.5 ML SYR IV SCH (20:10)
[2023-07-18] MEDS: ASCORBIC ACID 500 MG TAB PO SCH (20:10)
[2023-07-18] MEDS: tiZANidine HCL 4 MG TABLET PO SCH (20:11)
[2023-07-18] MEDS: GABAPENTIN 800 MG TAB PO SCH (20:11)
[2023-07-18] MEDS: KETOROLAC TROMETHAMINE 15 MG/ML VIAL IV SCH (20:11)
[2023-07-18] MEDS: TRANEXAMIC ACID / 0.7% NACL 1,000 MG/100 ML BAG IV SCH (20:12)
[2023-07-18] MEDS: SENNA 8.6 MG TAB PO SCH (20:12)
[2023-07-18] MEDS: DOCUSATE SODIUM 100 MG CAP PO SCH (20:12)
[2023-07-18] MEDS: traZODone HCL 50 MG TAB PO SCH (20:15)
[2023-07-18] MEDS: Scopolamine CHECK PATCH PLACEMENT SCH (20:19)
--- NOTE | 2023-07-18 20:55 | Hospitalist Consultation ---
Date of Consultation July 18, 2023 Assessment & Plan (1) Chronic obstructive pulmonary disease: 67F with PMH chronic respiratory failure on 2L O2 with exertion, COPD, sarcoidosis, hx. PE on xarelto, depression, anxiety, insomnia, HLD, here for right hip replacement, Medicine consulted for management of respiratory conditions. COPD with chronic respiratory failure chronically on 2L O2 -patient tolerated 2L O2 NC -continue home inhalers anoro flovent, prn albuterol -patient encouraged to use incentive spirometer -continue saline neb Depression/Anxiety -continue lexapro S/P right hip replacement -surgery 07/18 -continue following ortho -resume xarelto tomorrow for DVT prophylaxis -PT/OT ordered -continue bowel regime -continue pain control with toradol, tylenol, dilaudid, oxycodone GERD -continue protonix Neuropathic pain -continue gabapentin HLD -continue rosuvastatin Chronic pain -continue tizanidine Insomnia -continue trazodone, prn ativan Thank you for allowing me to participate in this patient's care. Please tigertext for any questions. (2) Chronic respiratory failure: (3) Sarcoidosis: (4) History of pulmonary embolism: (5) Osteoporosis: (6) Anxiety with depression: (7) Avascular necrosis of bone of right hip: Supervising Physician Co-Signing Physician Notes Patient seen, case discussed with Dr. Jiang and I agree with the assessment and plan as above History of Present Illness Reason for Consultation: COPD sarcoidosis chronic respiratory failure Attending Physician: Luis Kelley MD History of Present Illness 67F with PMH chronic respiratory failure on 2L O2 with exertion, COPD, sarcoidosis, hx. PE on xarelto, depression, anxiety, insomnia, HLD, here for right hip replacement, Medicine consulted for management of respiratory conditions. At this time, patient seated comfortably in bed, denies any respira tory complaints, feels she tolerated her procedure well. Patient currently on 2L O2 which is her home usage level. Patient denies any headache dizziness nausea vomitting chest pain abd pain numbness tingling of extremities. She understands her xarelto was held for her procedure but will be restarted tomorrow. Patient states she manages her own medication. Allergies Allergy/AdvReac Type Severity Reaction Status Date / Time No Known Allergies Allergy Verified 07/18/23 11:31 Home Medications Medication Instructions Recorded Confirmed Type albuterol sulfate 2.5 mg/3 mL 2.5 mg (3 mL) inhalation QID PRN 07/28/21 07/18/23 Rx (0.083 %) solution for nebulization Shortness Of Breath Or Wheezing #270 mL albuterol sulfate 90 mcg/actuation 2 puff inhalation QID PRN 01/09/23 07/18/23 Rx aerosol inhaler (Ventolin HFA) Shortness Of Breath Or Wheezing #18 grams Wheelchair (Powered) (Power #1 ea 01/12/23 07/17/23 Rx Wheelchair) Therapist Evaluation for Power #1 ea 01/30/23 07/17/23 Rx Mobility fluticasone propionate 110 2 puff inhalation BID #3 Inhalers 02/02/23 07/18/23 Rx mcg/actuation HFA aerosol inhaler (Flovent HFA) umeclidinium 62.5 mcg-vilanterol 1 inh inhalation QAM #60 ea 03/15/23 07/18/23 Rx 25 mcg/actuation powdr for inhalation (Anoro Ellipta) gabapentin 600 mg tablet 600 mg PO .QAM & AFTERNOON 04/12/23 07/18/23 History lorazepam 1 mg tablet (Ativan) 1 mg PO DAILY PRN Anxiety #30 tabs 05/31/23 07/18/23 Rx varenicline 1 mg tablet 1 mg PO BID #60 tabs 06/05/23 07/18/23 Rx gabapentin 800 mg tablet 800 mg PO HS #30 tabs 06/12/23 07/18/23 Rx rosuvastatin 5 mg tablet 5 mg PO QAM #90 tabs 06/12/23 07/18/23 Rx Flutter Valve #1 ea 06/23/23 07/17/23 Rx sodium chloride 7 % for 4 ml inhalation BID 30 days #240 mL 06/23/23 07/18/23 Rx nebulization oxycodone 5 mg tablet 5 mg PO Q4H PRN pain #60 tabs 06/29/23 07/18/23 Rx cholecalciferol (vitamin D3) 25 25 mcg PO QAM 07/04/23 07/18/23 History mcg (1,000 unit) tablet (Vitamin D3) escitalopram oxalate 10 mg tablet 10 mg PO QAM 07/04/23 07/18/23 History pantoprazole 40 mg tablet,delayed 40 mg PO QAM 07/04/23 07/18/23 History release tizanidine 4 mg tablet 4 mg PO BID muscle spasticity 07/04/23 07/18/23 History blood pressure monitor #1 ea 07/11/23 07/17/23 Rx rivaroxaban 20 mg tablet (Xarelto) 20 mg PO HS #30 tabs 07/14/23 07/18/23 Rx trazodone 50 mg tablet 50 mg PO HS #90 tabs 07/14/23 07/18/23 Rx acetaminophen 500 mg tablet 1,000 mg (2 x 500 mg) PO TID pain 07/15/23 07/18/23 Rx (Tylenol Extra Strength) 30 days #180 tabs cefadroxil 500 mg capsule 500 mg PO BID 7 days #14 caps 07/15/23 07/18/23 Rx ondansetron 4 mg disintegrating 4 mg PO Q8 PRN nausea #20 tabs 07/15/23 07/18/23 Rx tablet oxycodone 5 mg tablet 5 mg PO Q6 PRN pain #30 tabs 07/15/23 07/18/23 Rx sennosides 8.6 mg tablet (Senokot) 8.6 mg PO BID prevent constipation 07/15/23 07/18/23 Rx 14 days #28 tabs Patient History Medical History (Updated 07/19/23 @ 10:17 by La Nena Cota PA-C) Avascular necrosis of bone of right hip Anxiety with depression Osteoporosis Scoliosis History of pulmonary embolism 2019: post-op shoulder replacement ~2020: unknown etiology Patient taking Xarelto Chronic respiratory failure 2 LPM oxygen PRN Follows with [facility] pulmonary Sarcoidosis Follows with [facility] pulmonary (pulmonary ) COPD (chronic obstructive pulmonary disease) COPD/emphysema Breathing stable per patient Surgical History (Updated 07/19/23 @ 09:26 by Leela Galvez) 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 History of esophagogastroduodenoscopy (EGD) History of lung biopsy History of bronchoscopy History of right shoulder replacement Hx of colonoscopy Hx of elbow surgery Right H/O hysterectomy for benign disease History of hip replacement Left PREETI (09/11/17): SAB x1 at L3-L4 at [facility] Family History Father Myocardial infarction Brother Anxiety COPD (chronic obstructive pulmonary disease) Daughter Anxiety Sister Breast cancer Other Diabetes Kidney disease No family history of adverse response to anesthesia Denies family history of Ovarian cancer Prostate cancer Colorectal cancer Social History Smoking Status: Current every day smoker Tobacco Type: Cigarettes Age Started Using Tobacco: 22; packs per day: 0.75; Cigarettes Per Day: 1 ppd (advised on policy); Second Hand Exposure: Yes (in the past); Do You Dip or Chew Tobacco: No; Tobacco Cessation Education Requested by Patient: No Hx Alcohol Use: No Hx Substance Use: No Preferred Language: Armenian Communication Ability: Effective Visual Impairment: No Limitations Hearing Ability: Normal Can Slider Required: No Beliefs That Will Affect Care: None marital status: Current Living Situation: Spouse current occupational status: retired and disabled 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 How many Children do You have: 2 Other Information That Helps Us Care for You: No Feels Safe at Home: Yes Safety Concerns: Feels Safe At This Time Childhood Exposure to Second-Hand Smoke: No Diet: regular Dental Care, Regularly: No Physical Activity Frequency: Does not Exercise Seatbelt Use: always Sunscreen Use: No (is not out in the sun much ) Assistive Devices: Oxygen - Continuous, Walker, Wheelchair and Other Assistive Devices Comment: oxygen prn Physical Exam Constitutional: well developed and well nourished Eyes: PERRL, conjunctivae normal, anicteric sclerae ENMT: external ear and nose normal, oropharynx normal Neck: trachea midline, no thyromegaly Respiratory: normal respiratory effort Auscultation: + wheezes (throughout, expiratory) Cardiovascular: Rate/Rhythm: regular rate and regular rhythm Skin: no rashes, warm and dry Results & Data Results & Data Vital Signs (Past 12 Hours) Vital Signs Temp Pulse Pulse Resp BP Pulse Ox O2 Del Method 07/18/23 20:00 Nasal Cannula 07/18/23 19:35 36.8 C 78 16 104/66 93 Nasal Cannula 07/18/23 19:00 79 15 103/66 94 Nasal Cannula 07/18/23 18:00 78 18 94/65 L 94 Nasal Cannula 07/18/23 17:30 82 20 103/66 95 Nasal Cannula 07/18/23 17:00 86 22 97/63 L 95 Nasal Cannula 07/18/23 16:30 37.0 C 82 19 95/59 L 94 Nasal Cannula 07/18/23 16:15 37.0 C 82 18 98/54 L 94 Nasal Cannula 07/18/23 16:05 80 18 94/58 L 95 Nasal Cannula 07/18/23 15:55 82 17 98/67 L 97 Nasal Cannula 07/18/23 15:45 80 16 103/64 97 Nasal Cannula 07/18/23 15:35 36.7 C 82 20 103/82 98 Nasal Cannula 07/18/23 15:25 36.7 C 81 20 110/70 98 Nasal Cannula 07/18/23 15:15 36.7 C 84 16 112/67 97 Nasal Cannula 07/18/23 12:35 80 18 92 Room Air 07/18/23 12:17 Room Air 07/18/23 11:30 37.1 C 94 H 24 132/81 92 Room Air O2 Flow Rate 07/18/23 20:00 2 07/18/23 19:35 2 07/18/23 19:00 2 07/18/23 18:00 2 07/18/23 17:30 2 07/18/23 17:00 2 07/18/23 16:30 2 07/18/23 16:15 2 07/18/23 16:05 2 07/18/23 15:55 2 07/18/23 15:45 2 07/18/23 15:35 2 07/18/23 15:25 2 07/18/23 15:15 2 07/18/23 12:35 07/18/23 12:17 07/18/23 11:30 Resident Activity Tracking Resident Involvement: Resident Care Provided Care Provided: Adult Hospital Medicine (1) Chronic obstructive pulmonary disease COPD type: unspecified COPD Qualified Code(s): J44.9 - Chronic obstructive pulmonary disease, unspecified
[2023-07-18] MEDS ORDERED: ACETAMINOPHEN 500 MG TAB PO SCH (21:00)
[2023-07-18] MEDS ORDERED: SENNA 8.6 MG TAB PO SCH (21:00)
[2023-07-18] MEDS: SODIUM CHLOR 7% 4 ML NEB INH SCH (21:18)
[2023-07-18] MEDS: LORazepam 1 MG TAB PO PRN (21:32)
[2023-07-18] MEDS: HYDROmorphone INJ 0.5 MG/0.5 ML SYR IV PRN (21:32)
[2023-07-18] MEDS: ALBUTEROL HFA 8 GM INHALER INH PRN (22:03)
[2023-07-19] MEDS: oxyCODONE HCL IR 5 MG TAB (IMMEDIATE RELEASE) PO PRN (03:12)
[2023-07-19] MEDS: UMECLIDINIUM/VILANTEROL 62.5/25MCG 7 PUFFS/INHALER INH SCH (08:16)
[2023-07-19] MEDS: FLUTICASONE FUROATE 200MCG 14 PUFFS/INHALER INH SCH (08:16)
[2023-07-19] MEDS: ESCITALOPRAM OXALATE 10 MG TAB PO SCH (08:17)
[2023-07-19] MEDS: CHOLECALCIFEROL 25 MCG (1000 UNITS) TAB PO SCH (08:17)
[2023-07-19] MEDS: ROSUVASTATIN CALCIUM 5 MG TAB PO SCH (08:18)
[2023-07-19] MEDS: GABAPENTIN 600 MG TAB PO SCH (08:18)
[2023-07-19] MEDS: PANTOprazole 40 MG TAB PO SCH (08:19)
[2023-07-19] MEDS: MULTIVITAMIN TAB PO SCH (08:19)
[2023-07-19] MEDS: dexAMETHasone 10 MG in SYRINGE 0 ML IV SCH (08:23)
[2023-07-19 08:45] LABS: Basophils # (auto) 0.04 K/uL (0.00-0.20); Basophils % (auto) 0.5 %; Eosinophils # (auto) 0.02 K/uL (0.00-0.50); Eosinophils % (auto) 0.2 %; Hematocrit (blood only) 32.4 % (37.0-47.0); Hemoglobin 10.8 g/dl (12.0-16.0); Immature Granulocytes # (auto) 0.03 K/uL (0.01-0.20); Immature Granulocytes % (auto) 0.4 %; Lymphocytes # (auto) 1.18 K/uL (1.20-3.40); Lymphocytes % (auto) 14.5 %; Mean Corpuscular Hemoglobin 30.6 pg (25.0-34.0); Mean Corpuscular Hgb Conc 33.3 g/dL (32.0-36.0); Mean Corpuscular Volume 91.8 fL (80.0-100.0); Mean Platelet Volume 9.7 fL (9.4-12.4); Monocytes # (auto) 0.47 K/uL (0.11-0.59); Monocytes % (auto) 5.8 %; Neutrophils # (auto) 6.42 K/uL (1.40-6.50); Neutrophils % (auto) 78.6 %; Platelet Count 166 K/uL (130-400); RDW Coefficient of Variation 14.9 % (11.5-14.5); RDW Standard Deviation 50.1 fL (36.4-46.3); Red Blood Count 3.53 M/uL (4.20-5.40); White Blood Count 8.16 K/ul (4.8-10.8)
[2023-07-19 09:12] LABS: BUN Creatinine Ratio 18.6 (10-20); Calcium 8.4 mg/dl (8.6-10.3); Creatinine Clr Calc Pharmacy 63.6 ml/min; Est GFR (African American) 103.2 ml/min; Potassium 4.2 mmol/L (3.5-5.1)
--- NOTE | 2023-07-19 09:35 | Orthopedic Progress Note ---
Date of Service July 19, 2023 Assessment & Plan (1) Status post total replacement of right hip: Overall she is doing quite well today with good pain control to the right hip. Hospitalist service is currently consulted due to her ongoing hypotension. This may be an issue for her working with physical therapy today. If we can get her hypotension under control as well as her participate with physical therapy well today, she may be discharged today. Discharge might be held today with anticipation for tomorrow pending how the day goes. She was restarted on her Xarelto for DVT prophylaxis. We will continue to monitor today. Subjective . Karine was seen and evaluated at bedside today resting comfortably in no apparent distress. She states that her pain is well-controlled to the right hip. She has yet to be out of bed due to her having continued hypotension throughout the night last night into this morning. Hospitalist service was consulted. She has yet to be seen by physical therapy this morning. She denies any other concerns. Review of Systems All systems reviewed & are unremarkable except as noted in HPI & below. Physical Exam . On physical examination of the right hip, dressings clean, dry, intact. Her leg is out in full extension. She has active plantarflexion dorsiflexion to the right ankle. +2 DP and PT pulses. Less than 2-second capillary refill. Normal sensation. Neurovascular intact. Results & Data Results & Data Laboratory Results . Diagnostic Findings . Postoperative x-rays of the right hip reveal the prosthesis to be in anatomical alignment with no signs of fracture complication or loosening. PG Care Time/CCT Total # of Minutes Spent Total Time Spent with Patient: Total time spent is greater than 50% in coordination of care (as documented) at patient's floor/unit and/or counseling patient: Coding Level of Care Code 72196 Post Operative Follow-Up Diagnoses Status post total replacement of right hip Z96.641
--- NOTE | 2023-07-19 10:18 | Hospitalist Progress Note ---
Date of Service July 19, 2023 Assessment & Plan (1) Status post total replacement of right hip: Plan: -surgery 07/[address] Kelley -abx, bowel regiment and pain control per primary team -Continue Xalrelto -PT/OT -Hgb 10.8 today, 13.7 prior to surgery --> likely acute blood loss anemia, EBL 200 (2) Hypotension: Plan: BP have been mainly 90/50s - Reviewed current stay and last PCP note, chronic issue and usually asymptomatic - Symptomatic now, likely exacerbated by increased narcotics - EBL 200 from OR. - Recommend PO hydration and up to the chair, if still symptomatic consider 500 cc bolus. Patient given 500cc bolus this morning and I reevaluated this afternoon. On her third attempt, she was able to walk with therapy without getting lightheaded and dizzy. Patient reported to me her oxygen stats dropped but that was because the O2 was not connected to the wall. Will plan for maintenance fluids overnight for adequate hydration and increase BP for hopeful discharge tomorrow. (3) Chronic obstructive pulmonary disease: Plan: -patient on baseline 2L NC -continue home inhalers anoro flovent, prn albuterol -patient encouraged to use incentive spirometer -continue saline neb (4) Vitamin D deficiency: Plan: Continue 1000 units daily (5) Anxiety and depression: Plan: -Continue lexapro (6) History of pulmonary embolism: Plan: Resume Xalerlto (7) Insomnia: Plan: Continue trazadone Prn Ativan (8) Chronic pain: Plan: Continue Tixanidine Continue Gabaptentin (9) Hyperlipidemia: Plan: Continue Rosuvastatin (10) GERD (gastroesophageal reflux disease): Plan: Continue Protnoix Plan Dispo: continued inpatient stay, hopeful for discharge tomorrow Thank you for allowing us to participate in the care of this patient, please reach out with any questions or concerns Admission and Anticipated Discharge Date Admission Date: July 18, 2023 Supervising Physician Co-Signing Physician Notes Attending Attestation - Chart reviewed in detail, care plan d/w GRUPO Cota. I agree w/ the patel components of her documentation. Hypotension - agree with fluid bolus then maintenance. At least some of the low BPs likely due to acute blood loss anemia (about 3 gram drop). If hypotension persists consider w/u for adrenal insufficiency. No evidence of submassive PE, etc that could lead to low BP. Vaibhav Gutierrez MD Subjective Patient sitting up on the side of the bed, just finished working with OT. Was unable to walk due to symptomatic hypotension. Per chart review patient normally is hypotensive, but asymptomatic at home. Reports wearing O2 intermittently at home - usually when she wakes up in the middle of the night and then until noon and then prn. Reports pain is well controlled, has not had a bowel movement yet. Shortness of breath and wheezing at baseline, has been receiving nebs while here. Review of Systems Review of Systems: All systems reviewed & are unremarkable except as noted in Subjective Physical Exam Physical Exam: General: NAD, sitting in the chair, VS as above Resp: 2L NC, breathing unlabored, expiratory wheeze throughout. Has received neb treatment this morning CV: RRR, no murmur, Abd: non tender, no hepatosplenomegaly Extremities: Moves all extremities, bilateral viet hose in place. Ice over right hip. Neuro: A&O x3, Results & Data Results & Data Vital Signs (Past 12 Hours) Vital Signs Temp Pulse Pulse Resp BP BP Pulse Ox 07/19/23 07:25 07/19/23 07:23 77 14 96 07/19/23 07:00 36.9 C 76 18 91/51 L 96 07/19/23 03:12 36.8 C 69 16 92/54 L 96 07/18/23 23:15 36.5 C 67 16 93/53 L 94 O2 Del Method O2 Flow Rate 07/19/23 07:25 Nasal Cannula 2 07/19/23 07:23 Nasal Cannula 3 07/19/23 07:00 Nasal Cannula 3 07/19/23 03:12 Nasal Cannula 2 07/18/23 23:15 Nasal Cannula 2 Laboratory Results CBC and chemistry reviewed PG Care Time/CCT Total # of Minutes Spent Total Time Spent with Patient: Total time spent is greater than 50% in coordination of care (as documented) at patient's floor/unit and/or counseling patient: Coding Level of Care Code 96651 SUB INP/OBS CARE 3/50MIN Diagnoses Status post total replacement of right hip Z96.641 Hypotension I95.9 Chronic obstructive pulmonary disease J44.9 COPD type: unspecified COPD Vitamin D deficiency E55.9 Anxiety and depression F41.9; F32.9 History of pulmonary embolism Z86.711 Insomnia G47.00 Chronic pain G89.29 Hyperlipidemia E78.5 GERD (gastroesophageal reflux disease) K21.9 (3) Chronic obstructive pulmonary disease COPD type: unspecified COPD Qualified Code(s): J44.9 - Chronic obstructive pulmonary disease, unspecified
[2023-07-19] MEDS: LACTATED RINGER'S 500 ML IV ONE (12:26)
[2023-07-19] MEDS: RIVAROXABAN 10 MG TABLET PO SCH (15:20)
[2023-07-19] MEDS: LACTATED RINGER'S 1,000 ML IV SCH (16:20)
[2023-07-20 06:48] LABS: Hematocrit (blood only) 31.6 % (37.0-47.0); Hemoglobin 10.4 g/dl (12.0-16.0); Mean Corpuscular Hemoglobin 30.4 pg (25.0-34.0); Mean Corpuscular Hgb Conc 32.9 g/dL (32.0-36.0); Mean Corpuscular Volume 92.4 fL (80.0-100.0); Mean Platelet Volume 9.6 fL (9.4-12.4); Platelet Count 162 K/uL (130-400); RDW Coefficient of Variation 15.3 % (11.5-14.5); RDW Standard Deviation 52.2 fL (36.4-46.3); Red Blood Count 3.42 M/uL (4.20-5.40); White Blood Count 7.55 K/ul (4.8-10.8)
[2023-07-20 07:12] LABS: BUN Creatinine Ratio 18.7 (10-20); Calcium 8.8 mg/dl (8.6-10.3); Creatinine Clr Calc Pharmacy 59.4 ml/min; Est GFR (African American) 94.9 ml/min; Est GFR (Non-African American) 81.9 ml/min
--- NOTE | 2023-07-20 07:12 | Surgery Progress Note ---
Date of Service July 20, 2023 Assessment & Plan (1) Status post total replacement of right hip: Plan: 67-year-old female with multiple medical problem lungs most specifically significant COPD postop day 2 from a right hybrid total hip replacement. Hips doing well. She has been hypotensive and has difficulty completing therapy as result. Minimally symptomatic. Plan: 1. DVT prophylaxis including thigh-high teds SCDs and back on Xarelto. She is on a prophylactic dose currently. Will keep her on that while she is in the hospital. Likely discharge on the therapeutic dose. 2. PT OT. Weight-bear as tolerated right total hip protocol. 3. Pain control doing okay with current pain regimen. 4. Disposition the plan is to discharge home with some home health we will see how she does today in therapy. If not better she may need to go to rehab. Admission and Anticipated Discharge Date Admission Date: July 18, 2023 Subjective 67-year-old female with multiple medical comorbidities postop day 2 from a right hybrid total hip replacement. She is doing pretty well. Did not do well in therapy yesterday just due to hypotension primarily. Fairly minimally symptomatic. She is resting comfortably with this morning. Pain is controlled. Denies any significant chest pain or shortness of breath. Physical Exam Physical Exam: Physical examination was a pleasant middle-aged female. I did wake her this morning. Examination of the right hip reveals dressing clean dry and intact. Her hip is appropriately positioned. Leg lengths are equal. She is neurologically intact. Results & Data Vital Signs (Past 12 Hours) Vital Signs Temp Pulse Resp BP Pulse Ox O2 Del Method O2 Flow Rate 07/19/23 22:26 Nasal Cannula 2 07/19/23 20:42 75 18 95 Nasal Cannula 3 07/19/23 19:44 36.8 C 82 22 93/55 L 97 Nasal Cannula 3 Laboratory Results Hemoglobin is 10.4. Hematocrit 31.6. Electrolytes are pending PG Care Time/CCT Total # of Minutes Spent Total Time Spent with Patient: Total time spent is greater than 50% in coordination of care (as documented) at patient's floor/unit and/or counseling patient: Coding Level of Care Code None Diagnoses Status post total replacement of right hip Z96.641
[2023-07-20] MEDS: LACTATED RINGER'S 250 ML IV ONE (11:49)
--- NOTE | 2023-07-20 11:49 | Hospitalist Progress Note ---
Date of Service July 20, 2023 Assessment & Plan (1) Status post total replacement of right hip: Plan: -surgery 07/[address] Kelley -abx, bowel regiment and pain control per primary team -Continue Xalrelto -PT/OT - recommending rehab -Hgb 10.8 07/19, 13.7 prior to surgery --> likely acute blood loss anemia, EBL 200 -Hgb stable today (2) Hypotension: Plan: BP have been mainly 90/50s - Reviewed current stay and last PCP note, chronic issue and usually asymptomatic - Symptomatic now, likely exacerbated by increased narcotics - EBL 200 from OR. - Recieved 500 cc bolus 07/19 and maintenance fluids overnight --> improved BP -Hypotensive this morning after sitting in the chair for a few hours -Fluid bolus and fluids resumed -random cortisol level - LOW - Cosyntropin stim test tomorrow morning (3) Chronic obstructive pulmonary disease: Plan: -patient on baseline 2L NC -continue home inhalers anoro flovent, prn albuterol -patient encouraged to use incentive spirometer -continue saline neb Increasing SOB 07/20 after neb treatment CXR: advanced emphysema - stable from 07/10, no acute process (4) Vitamin D deficiency: Plan: Continue 1000 units daily (5) Anxiety and depression: Plan: -Continue lexapro (6) History of pulmonary embolism: Plan: Resume Xalerlto -If patient continues to be SOB, low threshold for CTA (7) Insomnia: Plan: Continue trazadone Prn Ativan (8) Chronic pain: Plan: Continue Tixanidine Continue Gabaptentin (9) Hyperlipidemia: Plan: Continue Rosuvastatin (10) GERD (gastroesophageal reflux disease): Plan: Continue Protnoix Plan Dispo: would recommend continued inpatient stay for further workup for adrenal insufficiency and better symptom control. Message sent to Dr. Kelley, ortho Thank you for allowing us to participate in the care of this patient, please reach out with any questions or concerns Admission and Anticipated Discharge Date Admission Date: July 18, 2023 Supervising Physician Co-Signing Physician Notes Attending Attestation - Chart reviewed in detail, care plan d/w GRUPO Cota. I agree w/ the patel components of her documentation. Despite fluids BPs remain low or low-normal. Random cortisol level very low. However, she did receive noel-operative dexamethasone which will skew the random cortisol results. Will have to perform cosyntropin stim test to r/o adrenal insufficiency. Fortunately dexamethasone does NOT interfere with the cosyntropin assay. NPO after 10pm tonight for stim test tomorrow. Vaibhav Gutierrez MD Subjective Patient seen this morning sitting in the chair. She reports feeling more short of breath after her neb treatment. Coughing alittle bit. Has not felt dizzy with transfers this morning. Was using the commode since aguero removed. Reevaluated ~1145 after notified by RN that BP is 75/43. Patient was sitting in the chair for most of the morning. Now back in bed. was symptomatic with transfer. Does feel like respiratory symptoms are improved. Feels like her work of breathing is at baseline. Will give fluid bolus and resume maintence fluids. Patient reports she sits on the couch most of the time at home and feet dangle to floor. Review of Systems Review of Systems: All systems reviewed & are unremarkable except as noted in Subjective Physical Exam Physical Exam: General: NAD, sitting in the chair, VS as above Resp: 2L NC, breathing unlabored, lung sounds diminished but no wheezing. Patient demonstrated Incentive spriometer use with poor performance CV: RRR, no murmur, Abd: non tender, no hepatosplenomegaly Extremities: Moves all extremities, bilateral viet hose in place. No edema Neuro: A&O x3, Results & Data Results & Data Vital Signs (Past 12 Hours) Vital Signs Temp Pulse Resp BP Pulse Ox O2 Del Method O2 Flow Rate 07/20/23 11:13 75/43 L 07/20/23 08:14 36.9 C 79 18 118/66 97 Nasal Cannula 2.5 07/20/23 07:52 74 18 97 Nasal Cannula 2 07/20/23 07:30 Nasal Cannula 3 Laboratory Results CBC and chemistry reviewed Diagnostic Findings CXR reviewed PG Care Time/CCT Total # of Minutes Spent Total Time Spent with Patient: Total time spent is greater than 50% in coordination of care (as documented) at patient's floor/unit and/or counseling patient: Coding Level of Care Code 20717 SUB INP/OBS CARE 3/50MIN Diagnoses Status post total replacement of right hip Z96.641 Hypotension I95.9 Chronic obstructive pulmonary disease J44.9 COPD type: unspecified COPD Vitamin D deficiency E55.9 Anxiety and depression F41.9; F32.9 History of pulmonary embolism Z86.711 Insomnia G47.00 Chronic pain G89.29 Hyperlipidemia E78.5 GERD (gastroesophageal reflux disease) K21.9 (3) Chronic obstructive pulmonary disease COPD type: unspecified COPD Qualified Code(s): J44.9 - Chronic obstructive pulmonary disease, unspecified
[2023-07-20] MEDS: LACTATED RINGER'S 1,000 ML IV SCH (12:14)
--- NOTE | 2023-07-20 12:37 | XRay Report ---
SINGLE VIEW CHEST CLINICAL HISTORY: Dyspnea. FINDINGS: An AP, portable, upright chest radiograph is compared to study dated 07/10/2023 and correlate d with chest CT dated 03/09/2023. The cardiomediastinal silhouette is top normal for projection. There are calcified mediastinal and hilar lymph nodes. Advanced emphysema and chronic interstitial thickeni ng similar to previous. There are numerous calcified granulomas. A calcified masslike opacity in the left perihilar region is unchanged. Additional foci of parenchymal scarring are seen throughout both lungs. There is no large pleural effusion or pneumothorax. The skeletal structures are osteopenic. Th ere are chronic/healed right-sided rib fractures. Degenerative change is noted in the left shoulder a nd thoracic spine. A right shoulder arthroplasty is in place. IMPRESSION: 1. Advanced emphysema with chronic parenchymal changes/granulomatous disease as above. This is simila r to 07/10/2023. 2. No superimposed airspace consolidation is identified. ACT 112: Negative or not required by law. Electronically signed by: Logan Munson M.D. 07/20/2023 12:35 PM
[2023-07-20] MEDS: dexAMETHasone 6 MG in SYRINGE 0 ML IV ONE (14:23)
[2023-07-21] MEDS: COSYNTROPIN 250 MCG in SYRINGE 4 ML IV ONE (08:32)
[2023-07-21] MEDS ORDERED: SODIUM CHLOR 7% 4 ML NEB INH PRN (10:08)
[2023-07-21] MEDS: HYDROCORTISONE SOD 25 MG in SYRINGE 0 ML IV SCH (12:46)
--- NOTE | 2023-07-21 12:52 | Orthopedic Progress Note ---
Date of Service July 21, 2023 Assessment & Plan (1) Status post total replacement of right hip: Plan: 1. DVT prophylaxis including thigh-high teds SCDs and back on Xarelto. She is on a prophylactic dose currently. Will keep her on that while she is in the hospital. Likely discharge on the therapeutic dose. 2. PT OT. Weight-bear as tolerated right total hip protocol. 3. Pain control doing okay with current pain regimen. 4. Hospitalist service on consult. Currently working up adrenal insufficiency. 5. Disposition the plan is to discharge to [facility]. Bed will be available hopefully early next week.We will continue to monitor. Subjective .Karine was seen and evaluated at bedside today resting comfortably in no apparent distress. She states that her pain is well-controlled to the right hip. She has been OOB this morning and worked with PT/OT . Hospitalist service was consulted. Currently trying to work up if she has adrenal insufficiency. Waiting for [facility] d/c. She denies any other concerns. Review of Systems All systems reviewed & are unremarkable except as noted in HPI & below. Physical Exam . On physical examination of the right hip, dressings clean, dry, intact. Her leg is out in full extension. She has active plantarflexion dorsiflexion to the right ankle. +2 DP and PT pulses. Less than 2-second capillary refill. Normal sensation. Neurovascular intact. Results & Data Results & Data Laboratory Results . Diagnostic Findings . PG Care Time/CCT Total # of Minutes Spent Total Time Spent with Patient: Total time spent is greater than 50% in coordination of care (as documented) at patient's floor/unit and/or counseling patient: Coding Level of Care Code 64854 Post Operative Follow-Up Diagnoses Status post total replacement of right hip Z96.641
--- NOTE | 2023-07-21 13:07 | Hospitalist Progress Note ---
Date of Service July 21, 2023 Assessment & Plan (1) Status post total replacement of right hip: Plan: -surgery 07/[address] Kelley -abx, bowel regiment and pain control per primary team -Continue Xalrelto -PT/OT - recommending rehab -Hgb 10.8 07/19, 13.7 prior to surgery --> likely acute blood loss anemia, EBL 200 (2) Hypotension: Plan: BP have been mainly 90/50s - Reviewed current stay and last PCP note, chronic issue and usually asymptomatic - Symptomatic now, likely exacerbated by increased narcotics - EBL 200 from OR. - Received >3L of fluid between bolus and maintenance fluids since OR. Continues to have hypotension (3) Adrenal insufficiency: Plan: -random cortisol low -cosyntropin stim test - peak at 15.5 -initiate steroid Taper (ordered) - 07/21 Hydrocortisone 25 mg TID - 07/22 25 mg BID - 07/23 20mg AM 10 mg PM (1500 hours) - 07/24 and continue at discharge 15 mg AM, 5mg PM -Will need outpatient endocrinology follow up (4) Chronic obstructive pulmonary disease: Plan: -patient on baseline 2L NC -continue home inhalers anoro flovent, prn albuterol -patient encouraged to use incentive spirometer -saline neb changed to prn 07/20 CXR: advanced emphysema - stable from 07/10, no acute process (5) Vitamin D deficiency: Plan: Continue 1000 units daily (6) Anxiety and depression: Plan: -Continue lexapro (7) History of pulmonary embolism: Plan: Resume Xalerlto -If patient continues to be SOB, low threshold for CTA (8) Insomnia: Plan: Continue trazadone Prn Ativan (9) Chronic pain: Plan: Continue Tixanidine Continue Gabaptentin (10) Hyperlipidemia: Plan: Continue Rosuvastatin (11) GERD (gastroesophageal reflux disease): Plan: Continue Protnoix Plan Dispo: continued inpatient stay, PT/OT recommending rehab Thank you for allowing us to participate in the care of this patient, please reach out with any questions or concerns Admission and Anticipated Discharge Date Admission Date: July 21, 2023 Supervising Physician Co-Signing Physician Notes Attending Attestation - Chart reviewed in detail, care plan d/w GRUPO Cota. I agree w/ the patel components of her documentation. Cosyntropin stim test suggestive of adrenal insufficiency. Peak cortisol level was only 15.5. Secondary adrenal insufficiency is likely. Will continue steroids in the form of hydrocortisone and taper over a few days. Endocrinology f/u will be needed. Vaibhav Gutierrez MD Subjective Patient seen sitting up in the chair. Feels better today. Had some dizziness with transfers last night, but improved this morning. Shortness of breath improved, feels very close to baseline. uses neb treatments as needed at home. Discussed results of her cosyntropin stim test. Review of Systems Review of Systems: All systems reviewed & are unremarkable except as noted in Subjective Physical Exam Physical Exam: General: NAD, sitting in the chair, VS as above Resp: 2L NC, breathing unlabored, lung sounds diminished but no wheezing. CV: RRR, no murmur, Abd: non tender, no hepatosplenomegaly Extremities: Moves all extremities, bilateral viet hose in place. No edema Neuro: A&O x3, Results & Data Results & Data Vital Signs (Past 12 Hours) Vital Signs Temp Pulse Pulse Resp BP Pulse Ox O2 Del Method 07/21/23 08:12 36.9 C 75 18 100/56 L 95 Room Air 07/21/23 07:14 64 16 95 Nasal Cannula O2 Flow Rate 07/21/23 08:12 07/21/23 07:14 2 Laboratory Results cosyntropin stim test reviewed PG Care Time/CCT Total # of Minutes Spent Total Time Spent with Patient: Total time spent is greater than 50% in coordination of care (as documented) at patient's floor/unit and/or counseling patient: Coding Level of Care Code 07725 SUB INP/OBS CARE 2/35MIN Diagnoses Status post total replacement of right hip Z96.641 Hypotension I95.9 Adrenal insufficiency E27.40 Chronic obstructive pulmonary disease J44.9 COPD type: unspecified COPD Vitamin D deficiency E55.9 Anxiety and depression F41.9; F32.9 History of pulmonary embolism Z86.711 Insomnia G47.00 Chronic pain G89.29 Hyperlipidemia E78.5 GERD (gastroesophageal reflux disease) K21.9 (4) Chronic obstructive pulmonary disease COPD type: unspecified COPD Qualified Code(s): J44.9 - Chronic obstructive pulmonary disease, unspecified
[2023-07-22 07:13] LABS: Hematocrit (blood only) 32.1 % (37.0-47.0); Hemoglobin 10.8 g/dl (12.0-16.0); Mean Corpuscular Hemoglobin 30.6 pg (25.0-34.0); Mean Corpuscular Hgb Conc 33.6 g/dL (32.0-36.0); Mean Corpuscular Volume 90.9 fL (80.0-100.0); Mean Platelet Volume 10.1 fL (9.4-12.4); Platelet Count 206 K/uL (130-400); RDW Coefficient of Variation 15.3 % (11.5-14.5); RDW Standard Deviation 51.3 fL (36.4-46.3); Red Blood Count 3.53 M/uL (4.20-5.40); White Blood Count 6.23 K/ul (4.8-10.8)
[2023-07-22 07:24] LABS: Calcium 8.9 mg/dl (8.6-10.3); Est GFR (Non-African American) 93.1 ml/min; Magnesium 1.9 mg/dl (1.7-2.4); Potassium 3.7 mmol/L (3.5-5.1)
--- NOTE | 2023-07-22 08:27 | Surgery Progress Note ---
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 She was hoping to go home but now thinking about rehab. [facility] They do not have a bed tell him next week. Plan: 1. DVT prophylaxis including thigh-high teds, SCDs, back on her Xarelto. 2. PT OT. Weight-bear as tolerated right total hip protocol. 3. Pain control doing well with current pain regimen. 4. Medical management as per the medicine service #5 disposition at this point we will plan [facility]. I think she may be a candidate to go home but did have PT and OT recommended rehab. Will see how therapy goes over the weekend. Admission and Anticipated Discharge Date Admission Date: July 21, 2023 Subjective 67-year-old female with multiple medical comorbidities now postop day 4 from a right hybrid total hip replacement. Clinically she is doing well. Pain is controlled. Get a little bit better daily. Easily gets short of breath. He i s, waiting for placement at this point. Physical Exam Physical Exam: Physical examination was a pleasant fairly female. She is lying in bed looks pretty comfortable this morning. Examination of the right hip reveals a dressing clean dry and intact. Thigh is soft and supple. Leg lengths are equal. She is neurologically intact. Results & Data Vital Signs (Past 12 Hours) Vital Signs Temp Pulse Resp BP Pulse Ox O2 Del Method O2 Flow Rate 07/22/23 07:14 36.7 C 64 16 94/60 L 91 Room Air 07/21/23 20:35 Nasal Cannula 2 Laboratory Results Hemoglobin is 10.8. Hematocrit 32.2. PG Care Time/CCT Total # of Minutes Spent Total Time Spent with Patient: Total time spent is greater than 50% in coordination of care (as documented) at patient's floor/unit and/or counseling patient: Coding Level of Care Code None Diagnoses Status post total replacement of right hip Z96.641
[2023-07-22] MEDS: HYDROCORTISONE SOD 25 MG in SYRINGE 0 ML IV SCH (08:33)
--- NOTE | 2023-07-22 12:14 | Hospitalist Progress Note ---
Date of Service July 22, 2023 Assessment & Plan (1) Status post total replacement of right hip: Plan: -surgery 07/[address] Kelley -abx, bowel regiment and pain control per primary team -Continue Xalrelto -PT/OT - recommending rehab - patient is already progressing, and hopes to continue progress by Monday to potentially discharge home instead of needing rehab -Hgb 10.8 07/19, 13.7 prior to surgery --> likely acute blood loss anemia, EBL 200 - hemoglobin now stable (2) Hypotension: Plan: BP have been mainly 90/50s - Reviewed current stay and last PCP note, chronic issue and usually asymptomatic - Symptomatic now, likely exacerbated by increased narcotics - EBL 200 from OR. - Received >3L of fluid between bolus and maintenance fluids since OR. Continues to have hypotension (3) Adrenal insufficiency: Plan: -random cortisol low -cosyntropin stim test - peak at 15.5 -initiate steroid Taper (ordered) - 07/21 Hydrocortisone 25 mg TID - 07/22 25 mg BID - 07/23 20mg AM 10 mg PM (1500 hours) - 07/24 and continue at discharge 15 mg AM, 5mg PM -Will need outpatient endocrinology follow up. patient hesitant about long-term steroid use due to side effects (weight gain), states it was recommended previously by pulmonology. discussed with patient would continue her on steroids while she is inpatient until she is able to have endocrinology follow- up. She is agreeable to this. (4) Chronic obstructive pulmonary disease: Plan: -patient on baseline 2L NC -continue home inhalers anoro flovent, prn albuterol -patient encouraged to use incentive spirometer -saline neb changed to prn 07/20 CXR: advanced emphysema - stable from 07/10, no acute process (5) Vitamin D deficiency: Plan: Continue 1000 units daily (6) Anxiety and depression: Plan: -Continue lexapro (7) History of pulmonary embolism: Plan: Resume Xalerlto -If patient continues to be SOB, low threshold for CTA (8) Insomnia: Plan: Continue trazadone Prn Ativan (9) Chronic pain: Plan: Continue Tixanidine Continue Gabaptentin (10) Hyperlipidemia: Plan: Continue Rosuvastatin (11) GERD (gastroesophageal reflux disease): Plan: Continue Protnoix Plan Dispo: continued inpatient stay, Medically stable, PT/OT recommending rehab Thank you for allowing us to participate in the care of this patient, please reach out with any questions or concerns Admission and Anticipated Discharge Date Admission Date: July 21, 2023 Supervising Physician Co-Signing Physician Notes Attending Attestation - Chart reviewed in detail, care plan d/w GRU[employer] Cota. I agree w/ the patel components of her documentation. BPs improved with IV fluids and hydrocortisone in the face of suspected adrenal insufficiency. Creatinine remains stable. Dispo planning. Cont PT/OT. Vaibhav Gutierrez MD Subjective patient sitting up in the chair, appears better compared to previous days. States she was able to walk in the storey with physical therapy. Feels like her breathing is at baseline, did feel short of breath when walking with physical therapy but states that would have happened prior to her surgery. No further episodes of lightheadedness or dizziness. Good appetite. Ambulating to bathroom without issue. Review of Systems Review of Systems: All systems reviewed & are unremarkable except as noted in Subjective Physical Exam Physical Exam: General: NAD, sitting in the chair, More wellappearing than previous days, VS as above Resp: 2L NC, breathing unlabored, lung sounds diminished in the bases but no wheezing. CV: RRR, no murmur, Extremities: Moves all extremities, bilateral viet hose in place. No edema. dressing removed from right hip, incision without signs of infection, tariq in place. Neuro: A&O x3, Results & Data Results & Data Vital Signs (Past 12 Hours) Vital Signs Temp Pulse Resp BP Pulse Ox O2 Del Method O2 Flow Rate 07/22/23 09:15 Nasal Cannula 2 07/22/23 07:14 36.7 C 64 16 94/60 L 91 Room Air Laboratory Results CBC and chemistry, magnesium are PG Care Time/CCT Total # of Minutes Spent Total Time Spent with Patient: Total time spent is greater than 50% in coordination of care (as documented) at patient's floor/unit and/or counseling patient: Coding Level of Care Code 46935 SUB INP/OBS CARE 2/35MIN Diagnoses Status post total replacement of right hip Z96.641 Hypotension I95.9 Adrenal insufficiency E27.40 Chronic obstructive pulmonary disease J44.9 COPD type: unspecified COPD Vitamin D deficiency E55.9 Anxiety and depression F41.9; F32.9 History of pulmonary embolism Z86.711 Insomnia G47.00 Chronic pain G89.29 Hyperlipidemia E78.5 GERD (gastroesophageal reflux disease) K21.9 (4) Chronic obstructive pulmonary disease COPD type: unspecified COPD Qualified Code(s): J44.9 - Chronic obstructive pulmonary disease, unspecified
[2023-07-23] MEDS: HYDROCORTISONE 10 MG TAB PO SCH ×2 (05:36→15:25)
--- NOTE | 2023-07-23 07:01 | Orthopedic Progress Note ---
Date of Service July 23, 2023 Assessment & Plan (1) Status post total replacement of right hip: She seems to be doing fairly well with regards to her hip. She still on 2 L of oxygen but her other vital signs seem stable. The hospitalist is treating her for adrenal insufficiency. She can be weightbearing as tolerated on her hip and she is on Xarelto for DVT prophylaxis. We are currently awaiting rehab placement at [facility]. Subjective Karine was seen and examined at bedside this morning. Overall she is doing fairly well. She is not having too much pain in the hip today. She has been able to ambulate with physical therapy. She still on 2 L of oxygen. The hospital is working with her adrenal insufficiency. She is awaiting placement at [facility] rehab facility.. Review of Systems All systems reviewed & are unremarkable except as noted in HPI & below. Physical Exam On physical examination of the hip, the dressing is clean and dry. There is no significant drainage. Her leg lengths are equal.. Results & Data Results & Data Laboratory Results . Diagnostic Findings . PG Care Time/CCT Total # of Minutes Spent Total Time Spent with Patient: Total time spent is greater than 50% in coordination of care (as documented) at patient's floor/unit and/or counseling patient: Coding Level of Care Code 28343 Post Operative Follow-Up Diagnoses Status post total replacement of right hip Z96.641
--- NOTE | 2023-07-23 11:04 | Hospitalist Progress Note ---
Date of Service July 23, 2023 Assessment & Plan (1) Status post total replacement of right hip: Plan: -surgery 07/[address] Kelley -abx, bowel regiment and pain control per primary team -Continue Xalrelto -PT/OT - recommending rehab - patient is already progressing, and hopes to continue progress by Monday to potentially discharge home instead of needing rehab -Hgb 10.8 07/19, 13.7 prior to surgery --> likely acute blood loss anemia, EBL 200 - hemoglobin now stable (2) Hypotension: Plan: BP have been improving, last charted 118/62 - Reviewed current stay and last PCP note, chronic issue and usually asymptomatic - Symptomatic now, likely exacerbated by increased narcotics - EBL 200 from OR. - Received >3L of fluid between bolus and maintenance fluids since OR (3) Adrenal insufficiency: Plan: New diagnosis for pt -random cortisol low -cosyntropin stim test - peak at 15.5 -initiate steroid Taper (ordered) - 07/21 Hydrocortisone 25 mg TID - 07/22 25 mg BID - 07/23 20mg AM 10 mg PM (1500 hours) - 07/24 and continue at discharge 15 mg AM, 5mg PM -Will need outpatient endocrinology follow up. patient hesitant about long-term steroid use due to side effects (weight gain), states it was recommended previously by pulmonology. discussed with patient would continue her on steroids while she is inpatient until she is able to have endocrinology follow- up. She is agreeable to this. Hypotension improving (4) Chronic obstructive pulmonary disease: Plan: -patient on baseline 2L NC prn -continue home inhalers anoro flovent, prn albuterol -patient encouraged to use incentive spirometer -saline neb changed to prn 07/20 CXR: advanced emphysema - stable from 07/10, no acute process (5) Vitamin D deficiency: Plan: Continue 1000 units daily (6) Anxiety and depression: Plan: -Continue lexapro (7) History of pulmonary embolism: Plan: Resume Xalerlto -If patient continues to be SOB, low threshold for CTA (8) Insomnia: Plan: Continue trazadone Prn Ativan (9) Chronic pain: Plan: Continue Tixanidine Continue Gabaptentin (10) Hyperlipidemia: Plan: Continue Rosuvastatin (11) GERD (gastroesophageal reflux disease): Plan: Continue Protnoix Plan Dispo: continued inpatient stay, Medically stable, PT/OT recommending rehab Thank you for allowing us to participate in the care of this patient, please reach out with any questions or concerns Admission and Anticipated Discharge Date Admission Date: July 21, 2023 Supervising Physician Co-Signing Physician Notes Attending Attestation - Chart reviewed in detail, care plan d/w GRUPO Cota. I agree w/ the patel components of her documentation. BPs have improved with steroids following cosyntropin stim test suggesting adrenal insuff. Will d/c on hydrocortisone 15mg qam and 5mg qafternoon with close [facility] f/u. Chronic hypoxic respiratory failure - stable on home O2 amount. Other medical problems stable. Doing well from orthopedic standpoint (s/p right total hip replacement on 07/[address] Kelley). Awaiting rehab. Vaibhav Gutierrez MD Subjective Patient sitting up in the chair, feels well today. Pain is well controlled. Moving bowels. Worked with therapy and reports went well, was able to do stairs today. Currently on 1.5L of oxygen has been using this consistently (baseline O2 was as needed). Does not feel short of breath. No further lightheadedness or dizziness. Review of Systems Review of Systems: All systems reviewed & are unremarkable except as noted in Subjective Physical Exam Physical Exam: General: NAD, sitting in the chair, VS as above Resp: 1.5L NC, breathing unlabored, lung sounds diminished in the bases but no wheezing - stable from yesterday CV: RRR, no murmur, Extremities: Moves all extremities, bilateral viet hose in place. No edema. dressing removed from right hip, incision without signs of infection, tariq in place. Neuro: A&O x3, Results & Data Results & Data Vital Signs (Past 12 Hours) Vital Signs Temp Pulse Resp BP Pulse Ox O2 Del Method O2 Flow Rate 07/23/23 09:07 Nasal Cannula 2 07/23/23 06:58 36.7 C 64 16 102/62 95 Nasal Cannula 2 PG Care Time/CCT Total # of Minutes Spent Total Time Spent with Patient: Total time spent is greater than 50% in coordination of care (as documented) at patient's floor/unit and/or counseling patient: Coding Level of Care Code 79101 SUB INP/OBS CARE 2/35MIN Diagnoses Status post total replacement of right hip Z96.641 Hypotension I95.9 Adrenal insufficiency E27.40 Chronic obstructive pulmonary disease J44.9 COPD type: unspecified COPD Vitamin D deficiency E55.9 Anxiety and depression F41.9; F32.9 History of pulmonary embolism Z86.711 Insomnia G47.00 Chronic pain G89.29 Hyperlipidemia E78.5 GERD (gastroesophageal reflux disease) K21.9 (4) Chronic obstructive pulmonary disease COPD type: unspecified COPD Qualified Code(s): J44.9 - Chronic obstructive pulmonary disease, unspecified
--- NOTE | 2023-07-24 11:29 | Hospitalist Progress Note ---
Date of Service July 24, 2023 Assessment & Plan (1) Status post total replacement of right hip: Plan: -surgery 07/[address] Kelley -abx, bowel regiment and pain control per primary team -Continue Xalrelto -PT/OT - now recommending discharge to home. -Hgb 10.8 07/19, 13.7 prior to surgery --> likely acute blood loss anemia, EBL 200 (2) Hypotension: Plan: BP have been improving, last charted 118/62 - Reviewed current stay and last PCP note, chronic issue and usually asymptomatic - Symptomatic now, likely exacerbated by increased narcotics - EBL 200 from OR. - Received >3L of fluid between bolus and maintenance fluids since OR (3) Adrenal insufficiency: Plan: New diagnosis for pt -random cortisol low -cosyntropin stim test - peak at 15.5 -initiate steroid Taper (ordered) - 07/21 Hydrocortisone 25 mg TID - 07/22 25 mg BID - 07/23 20mg AM 10 mg PM (1500 hours) - 07/24 and continue at discharge 15 mg AM, 5mg PM -Will need outpatient endocrinology follow up. patient hesitant about long-term steroid use due to side effects (weight gain), states it was recommended previously by pulmonology. discussed with patient would continue her on steroids while she is inpatient until she is able to have endocrinology follow- up. She is agreeable to this. Discussed with patient continuing steroid regiment at discharge. Against hesitant to continue half-way, but patient aware the importance and willing to continue regiment until she is seen by endocrinology. (4) Chronic obstructive pulmonary disease: Plan: -patient on baseline 2L NC prn -continue home inhalers anoro flovent, prn albuterol -patient encouraged to use incentive spirometer -saline neb changed to prn 07/20 CXR: advanced emphysema - stable from 07/10, no acute process (5) Vitamin D deficiency: Plan: Continue 1000 units daily (6) Anxiety and depression: Plan: -Continue lexapro (7) History of pulmonary embolism: Plan: Resume Xalerlto (8) Insomnia: Plan: Continue trazadone Prn Ativan (9) Chronic pain: Plan: Continue Tixanidine Continue Gabaptentin (10) Hyperlipidemia: Plan: Continue Rosuvastatin (11) GERD (gastroesophageal reflux disease): Plan: Continue Protnoix Plan Dispo: discharge to home with and home health today Thank you for allowing us to participate in the care of this patient, please reach out with any questions or concerns Admission and Anticipated Discharge Date Admission Date: July 21, 2023 Supervising Physician Co-Signing Physician Notes Attending Attestation - Chart reviewed in detail, care plan d/w GRUPO Cota. I agree w/ the patel components of her documentation. BPs improved with IV fluids and hydrocortisone in the face of suspected adrenal insufficiency. Creatinine and other labs are stable. Will d/c on hydrocortisone 15mg qam and 5mg qafternoon with close [facility] f/u. Chronic hypoxic respiratory failure - stable on home O2 amount. Other medical problems stable. Doing well from orthopedic standpoint (s/p right total hip replacement on 07/[address] Kelley). From medical standpoint she remains stable. Vaibhav Gutierrez MD Subjective Patient sitting up in the chair, dressed in street clothes. Planning to go home with home health today. Improved with physical therapy. no acute concerns Review of Systems Review of Systems: All systems reviewed & are unremarkable except as noted in Subjective Physical Exam Physical Exam: General: NAD, sitting in the chair, VS as above Resp: 1.5L NC, breathing unlabored, lung sounds diminished in the bases but no wheezing - stable from yesterday CV: RRR, no murmur, Neuro: A&O x3, Results & Data Results & Data Vital Signs (Past 12 Hours) Vital Signs Temp Pulse Resp BP Pulse Ox O2 Del Method O2 Flow Rate 07/24/23 09:01 2 07/24/23 08:00 Nasal Cannula 2 07/24/23 07:33 36.8 C 63 16 106/66 91 Nasal Cannula 2 PG Care Time/CCT Total # of Minutes Spent Total Time Spent with Patient: Total time spent is greater than 50% in coordination of care (as documented) at patient's floor/unit and/or counseling patient: Coding Level of Care Code 12105 SUB INP/OBS CARE 2/35MIN Diagnoses Status post total replacement of right hip Z96.641 Hypotension I95.9 Adrenal insufficiency E27.40 Chronic obstructive pulmonary disease J44.9 COPD type: unspecified COPD Vitamin D deficiency E55.9 Anxiety and depression F41.9; F32.9 History of pulmonary embolism Z86.711 Insomnia G47.00 Chronic pain G89.29 Hyperlipidemia E78.5 GERD (gastroesophageal reflux disease) K21.9 (4) Chronic obstructive pulmonary disease COPD type: unspecified COPD Qualified Code(s): J44.9 - Chronic obstructive pulmonary disease, unspecified
--- NOTE | 2023-07-24 13:58 | Orthopedic Progress Note ---
Date of Service July 24, 2023 Assessment & Plan (1) Status post total replacement of right hip: She seems to be doing fairly well with regards to her hip. She still on 2 L of oxygen but her other vital signs seem stable. The hospitalist is treating her for adrenal insufficiency. She can be weightbearing as tolerated on her hip and she is on Xarelto for DVT prophylaxis. At this point, she would like to proceed with discharge to home with home health. Hospitalist service states that she is medically cleared for discharge. She has been working with physical therapy and has improved with ambulation and range of motion exercises. She will work with physical therapy and Occupational Therapy today and if cleared with them, she may be discharged home with home health. She will follow-up in 10 [address] Kelley for postoperative care. Mirela Milton was seen and examined at bedside this morning. Overall she is doing fairly well. She is not having too much pain in the hip today. She has been able to ambulate with physical therapy. She still on 2 L of oxygen. The hospital is working with her adrenal insufficiency. She is awaiting placement at [facility] rehab facility. At this point, she feels that she would rather go home with home health and feels comfortable with this route. She has improved greatly with physical therapy and her orthostatic hypotension has been under control. Review of Systems All systems reviewed & are unremarkable except as noted in HPI & below. Physical Exam .On physical examination of the hip, the dressing is clean and dry. There is no significant drainage. Her leg lengths are equal. Results & Data Results & Data Laboratory Results . Diagnostic Findings . PG Care Time/CCT Total # of Minutes Spent Total Time Spent with Patient: Total time spent is greater than 50% in coordination of care (as documented) at patient's floor/unit and/or counseling patient: Coding Level of Care Code 46018 Post Operative Follow-Up Diagnoses Status post total replacement of right hip Z96.641
--- NOTE | 2023-07-24 14:08 | Discharge Summary ---
Date of Service July 24, 2023 Principal Diagnosis Same as "Discharge Diagnosis" noted below under Discharge Instructions. Discharge Exam .On physical examination of the hip, the dressing is clean and dry. There is no significant drainage. Her leg lengths are equal. Discharge Data Consultations 07/18/23 18:59 Consult Internal Medicine Routine Procedures Performed Operation Date: 07/18/23 12:30 Actual Procedures p Right Total Hip Arthroplasty(Right) - Luis Kelley MD Hospital Course (1) Status post total replacement of right hip: On July 18, 2023 Karine arrived at [facility] and underwent a rig ht total hip arthroplasty with Dr. Kelley with no complications. She had a spinal anesthetic. Postoperatively, she was transferred to the PACU for immediate postoperative care and then transferred to the general orthopedic floor in stable condition. Her hospital course was slightly complicated with orthostatic hypotension and newfound adrenal insufficiency. Postoperative day #1, she was found to have hypotensive episodes each time she tried to stand with physical therapy as well as the nurses. She was basically put on bedrest with encouragement of fluids. No other significant events occurred. She was restarted on her Xarelto for DVT prophylaxis. On postoperative day #2, she was also again having hypotensive episodes. At this point it was discussed possibly having her admitted to a rehabilitation center due to a the nature of her hypotensive episodes. She was started on fluid boluses and maintenance fluids. On postoperative day #3, her blood pressure is beginning to be around baseline for her. They did attempt physical therapy at this time in which she was able to ambulate and participate with range of motion exercises. The hospitalist service then proceeded with adrenal insufficiency testing. She was found to have adrenal insufficiency and was initiated on a steroid taper. At this point, no new changes were found on postoperative day #4 and postoperative day #5. She continued to make improvements with physical therapy. She was able to participate quite well with physical therapy on these days. At this time, she was waiting for placement into a rehabilitation center. On postoperative day #6, her vital signs were stable and her pain was well-controlled. She participated well with physical therapy doing ambulation and range of motion exercises. It was at this time, she decided that she would rather be discharged home with home health. She is orthopedically and medically stable for discharged home. Home health was set up for the patient. She was discharged home in stable condition. She will follow-up with orthopedics in 10 to 14 days for postoperative care. PG Care Time/CCT Total # of Minutes Spent Total Time Spent with Patient: Total time spent is greater than 50% in coordination of care (as documented) at patient's floor/unit and/or counseling patient: Discharge Plan Discharge Items Patient Disposition: Home - Home Health Services Reason For Visit: POST SURGICAL CARE Discharge Diagnosis: Right Hip Replacement Activity: Per Instructions section Activity Comment: Follow/Obey hip precautions at all times. Weightbearing: Full weightbearing Weightbearing Comment: Weightbear as tolerated obeying hip precautions at all times. Non-emergency contact: Surgeon Call non-emergency contact if: you have any medication questions Follow-up/Referrals: Nichole Farfan CRNP [Primary Care Provider] - 07/31/23 1:00 pm Luke Mooney MD [Physician] - (follow up in 2-4 weeks ) Diet: Regular Addtl Attending Provider Instructions: ACTIVITY RECOMMENDATIONS: Physical Therapy: * Aggressive physical therapy is not usually needed. You will learn to take care of yourself safely and walk. * Follow the "Hip Precautions Instructions." * In some cases, the certified social workers in health care at the hospital will arrange to have a therapist come to your house for the first couple of weeks to help you learn these s kills. * You need to practice on your own or with the help of a family member as needed. * When you learn these skills, most of the therapy can be done on your own. Home Exercise: * You were shown a series of exercises in the hospital. Do these exercises three to four times each day including the exercises you were shown in physical therapy. Walking: * Get up and walk several times each day. For the first four weeks, try not to stand or walk for more than one hour at a time. If you do stand or walk for more than one hour, you will not hurt anything, but your leg will likely swell. * As you feel comfortable, you may change from the walker or crutches to a cane and then to independent walking. MEDICATIONS: New Medicine: * You will likely be taking one or more of these medicines: 1. Oxycodone - Take, as directed, when you need it, every six hours to control your pain. 2. Xarelto - Thins your blood to lessen the chance of forming a blood clot. * The most common side effects of pain medicine and iron are nausea and constipation. If nausea or constipation is too much of a problem or if you have any questions about your new medicines or doses, call [facility] at . We will try to help you manage these issues. "VERY IMPORTANT TO READ AND REVIEW" Pain: * The immediate post-operative period after hip replacement surgery is often quite painful. * You are given a prescription for pain medicine. You should take it, as directed, when you need it, especially before physical therapy and before going to bed. Pain that interferes with sleep is very common and can last several months. * You will likely need pain medicine for the first two to four weeks. It will not stop all of the pain. The pain will lessen and as you feel better, you may change to milder pain medicine such as Tylenol. * The most common side effects of pain medicine are nausea and constipation, so don't take more than you need. SPECIAL CARE INSTRUCTIONS: TEDs/Elastic Stockings: * The white elastic stockings help limit swelling and prevent blood clots from forming in your legs. The more you wear them, the more they work. * Wear them for six weeks. Incision Site Care: * Remove dressing postoperative day 2 and then shower. Keep direct shower pressure off the incision site. * After showering, cover tariq with dry gauze and change daily or more frequently if the dressing is getting saturated with drainage. * May completely stop using bandage if wound is dry and no drainage * Bally are removed between 2 and 3 weeks post-op. If your follow-up appointment is made before 2 weeks, please have your appointment re- scheduled. It is too early to remove the tariq. Prevention of Infection: * Take antibiotics one hour before any dental cleaning, dental work, urological procedure, gastrointestinal procedure or any invasive surgery in order to prevent your new joint from getting infected. * You may get the antibiotics from the doctor performing the procedure or you may call our office at before and we will call in a prescription to the pharmacy of your choice. Things to Watch For: * Drainage from the incision site that occurs more than one week after your surgery. * Severely increased leg pain or swelling. * Increased redness at the incision site. * Fever above 102 degrees Fahrenheit. * Unusual chest pain or shortness of breath. * Unusual pain or burning with urination. Call [facility] at with any of the above problems or if you have any questions about your medicines or recovery. FOLLOW UP VISIT: Make an appointment to see your doctor for approximately two weeks after surgery for a progress check and staple removal by calling the office at . Addtl Rn Mental Health Provider Instructions: Hospital Medicine: -During your stay you were diagnosed with adrenal insufficiency after having low blood pressure that did not improve with fluids. The treatment for that is steroids that mimic that steroid production your body is supposed to make. You were on a steroid taper, and now will take the same dose daily. 15mg every morning - around 6:00am or right when you wake up. 5mg in the afternoon around 3:00pm. Take this dose daily until you are able to follow up with endocrinology. I would also recommend you follow up with pulmonology given the more consistent need for oxygen. Continue your inhalers and nebulizers at home. It was our pleasure taking care of you! Pending Studies at Discharge: No Stand-Alone Forms: My [facility] Groupspeak, Pain - Opioid Pain Management, Smoking Cessation Medications and DC Order Prescriptions: New hydrocortisone [Cortef] 10 mg Tablet 15 mg PO 0600 30 Days Qty: 45 1RF hydrocortisone [Cortef] 10 mg Tablet 5 mg PO 1500 30 Days Qty: 15 1RF Continued albuterol sulfate [Ventolin HFA] 90 mcg/actuation HFA aerosol inhaler 2 puff inhalation QID PRN (Reason: Shortness Of Breath Or Wheezing) Qty: 18 11RF (DME) Therapist Evaluation for Power Mobility See Rx Instructions .Route .MEDSUPPLY Qty: 1 0RF Rx Instructions: Evaluate patient for necessity of power chair fluticasone propionate [Flovent HFA] 110 mcg/actuation HFA aerosol inhaler 2 puff inhalation BID Qty: 3 3RF Anoro Ellipta 62.5-25 mcg/actuation blister with device 1 inh inhalation QAM Qty: 60 5RF lorazepam [Ativan] 1 mg tablet 1 mg PO DAILY PRN (Reason: Anxiety) Qty: 30 2RF varenicline 1 mg tablet 1 mg PO BID Qty: 60 4RF Patient Comments: per pt on 07/04/23 has not started med yet rosuvastatin 5 mg tablet 5 mg PO QAM Qty: 90 3RF gabapentin 800 mg tablet 800 mg PO HS Qty: 30 5RF (DME) blood pressure monitor Kit See Rx Instructions .Route Qty: 1 0RF Rx Instructions: DIGITAL BLOOD PRESSURE MONITOR FOR UPPER ARM; CHECK DAILY AND PRN Xarelto 20 mg tablet 20 mg PO HS Qty: 30 5RF trazodone 50 mg tablet 50 mg PO HS Qty: 90 3RF oxycodone 5 mg tablet 5 mg PO Q6 PRN (Reason: pain) Qty: 30 0RF Rx Instructions: Take as needed for pain ondansetron 4 mg tablet,disintegrating 4 mg PO Q8 PRN (Reason: nausea) Qty: 20 1RF Rx Instructions: Take as needed for nausea sennosides [Senokot] 8.6 mg tablet 8.6 mg PO BID 14 Days Qty: 28 0RF Rx Instructions: Take two times a day to prevent/treat constipation acetaminophen [Tylenol Extra Strength] 500 mg tablet 1,000 mg PO TID 30 Days Qty: 180 0RF Rx Instructions: Take 3 times per day to lessen pain. cefadroxil 500 mg capsule 500 mg PO BID 7 Days Qty: 14 0RF Rx Instructions: Take 1 cap twice a day to prevent infection (DME) Power Wheelchair Device See Rx Instructions .Route Qty: 1 0RF Rx Instructions: As directed (DME) Flutter Valve Device See Rx Instructions .ROUTE .MEDSUPPLY Qty: 1 0RF Rx Instructions: QID sodium chloride 7 % solution for nebulization 4 ml inhalation BID 30 Days Qty: 240 3RF oxycodone 5 mg tablet 5 mg PO Q4H PRN (Reason: pain) Qty: 60 0RF albuterol sulfate 2.5 mg /3 mL (0.083 %) solution for nebulization 2.5 mg INHALATION QID PRN (Reason: Shortness Of Breath Or Wheezing) Qty: 270 5RF cholecalciferol (vitamin D3) [Vitamin D3] 25 mcg (1,000 unit) Tablet 25 mcg PO QAM tizanidine 4 mg tablet 4 mg PO BID pantoprazole 40 mg tablet,delayed release (DR/EC) 40 mg PO QAM escitalopram oxalate 10 mg tablet 10 mg PO QAM gabapentin 600 mg tablet 600 mg PO .QAM & AFTERNOON Discharge Orders: Discharge Order (Routine); Ordered 07/24/23 Ordered By: Vargas Rolle/Other Patient Handouts: DVT Post Op Prevention, Secondary Adrenal Insufficiency, After Hip Replacement: Home Safety Admission Data Admit Date/Time: 07/21/23 08:49 Attending Provider: Luis Kelley Admit Provider: Luis Kelley Primary Care Provider: Nichole Farfan Other Providers: Vaibhav Gutierrez; [facility]; [facility]Re[facility]; [facility]; [facility],Home [facility] Other Interventions: Discharge Summary Assessment (RN) Last Done: 07/24/23 11:55
--- NOTE | 2023-08-08 09:36 | Coding Query ---
To promote full compliance with coding requirements relating to patient care, physician participation is requested in all cases of dress fitter uncertainty. Please assist us with the question(s) below: Coding Question(s): It was noted throughout the record that the patient has/is suspected to have osteoporosis. According to coding guidelines "a code for osteoporotic fracture, and not a traumatic fracture, should be used for any patient with known osteoporosis who suffers a fracture, even if the patient had a minor fall or trauma, if that fall or trauma would not usually break a normal, healthy bone." Please indicate below the type of fracture: Physician's Response(s): ( ) Osteoporotic fracture of (RIGHT HIP) ( ) Traumatic fracture of (RIGHT HIP) ( ) Other, please specify MTDD
== END 2023-07-24 12:05 | disposition home health service (06) | DRG 470 ==
LOC: ASU 10:26 → PACUINP 10:26 → 3N 19:27

== ENCOUNTER 2024-02-09 16:42 | Inpatient (IN) ==
--- NOTE | 2024-02-09 16:45 | Emergency Department Note ---
Impression & Plan Acute exacerbation of chronic obstructive pulmonary disease, Acute dyspnea, Acute dehydration ED Provider Note NAME: SHMUEL GAMA AGE: 68 SEX: F : 1955 ARRIVES VIA: Ambulance INFORMANT: Patient, ED PROVIDER(S): Luis Galvin MD CHIEF COMPLAINT: Shortness of breath, chest tightness MEDICAL DECISION MAKING: Patient presents due to concern for shortness of breath and chest tightness. The patient is virtually tripoding and is very uncomfortable in appearance. The patient initially was concerned that she would not be able to tolerate BiPAP but did suggest that we trial this. Patient had already received a DuoNeb and IV methylprednisolone and route. 2 additional grams of magnesium and hour-long DuoNeb treatments and BiPAP were initiated. Blood shows a normal white count hemoglobin and platelet count. The patient's kidney function is unremarkable. VBG with chronic hypercarbia but compensated with a VBG pH is 7.42. BSG 127 but nonfasting and not DKA. Troponin negative. The patient's urinalysis does show ketones. The patient did receive IV fluids. Leukocytes and whites noted but no evidence of bacteria or nitrites. Chest x- ray does not show evidence of obvious pneumonia. Patient's urinalysis shows the questionable infection but the patient does state that she feels as though she does have a UTI. Patient does have a prior urine culture results pansensitive E. coli and the patient was ordered IV Rocephin. We patient did trial off of the BiPAP for a brief period of time but seem to have increased work of breathing was placed back on along with a hour-long breathing treatment. Patient was reevaluated subsequently thereafter and did appear comfortable. I did speak with Dr. Nunez and the patient was admitted to the medicine service. Critical Care: I have personally spent 65 minutes of critical care time in direct management of this patient. This includes bedside care, interpretation of diagnostic studies, and testing, discussion with consultants, patient, and family members, and other require inpatient management activities. This 65 minutes is in excess of all separately billable procedures. Discussion w/ other healthcare providers: None Prior /Outside records reviewed: None Differential diagnosis: Reactive airway disease, pneumonia, pneumothorax, COPD, CHF, ACS, pulmonary embolism, musculoskeletal, GERD as well as other pathologies were considered. Diagnostics, as interpreted by me: ECG: Normal sinus rhythm, rate of 97, normal intervals, right axis deviation T wave version in V2 motion artifact noted in V4. No obvious ST elevations. Cardiac monitoring: An order was placed for continuous cardiac monitoring. The monitor shows a rate of 92 with sinus rhythm. Patient was placed on pulse oximetry Medical decision rules: None Imaging studies: I informally interpreted the patient's chest x-ray does not show obvious pneumonia with formal report to follow. HPI: Patient presents due to concern for worsening shortness of breath as well as lower chest tightness. Patient denies any falls or trauma. Known history of COPD has been using inhalers/nebulizers at home but without significant improvement in symptoms. Patient denies any falls. Patient does have a known history of COPD. Patient states that she has had thick productive sputum. Patient did receive methylprednisolone and DuoNeb treatments throughout. PAST MEDICAL HISTORY: See Below PAST SURGICAL HISTORY: See Below SOCIAL HISTORY: See Below HOME MEDICATIONS: See Below ALLERGIES: See Below VITALS: See Below PHYSICAL EXAMINATION: GENERAL: Ill in appearance, accessory muscle use noted. Tachypnea conversational dyspnea. Virtual tripoding. Wearing glasses. EYE EXAM: Normal conjunctiva. PERRL, no anisocoria and EOM's grossly intact w/o pain. OROPHARYNX: Moist mucus membranes, grossly normal dentition. NECK: Trachea midline, no stridor. LUNGS: Wheezing throughout normal chest wall mechanics. HEART: NSR, no MRG. ABDOMEN: Abdomen soft, non-tender, no masses, no rebound or guarding. BACK: No CVA TTP. SKIN: No rashes and no bruising. UPPER EXTREMITIES: Upper extremities are grossly normal. LOWER EXTREMITIES: Grossly normal, no edema. NEURO EXAM: A&O x3, cranial nerves II-XII grossly intact, normal speech, moves all 4 extremities. 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 Avascular necrosis of bone of right hip Unintentional weight loss Vitamin D deficiency Right hip pain Pleural effusion Cough Bronchiectasis Other cervical disc degeneration, mid-cervical region, unspecified level Other kyphosis, thoracic region Balance problem Ambulatory dysfunction Dysphagia OLGUIN (dyspnea on exertion) (Acute) Decompensated COPD with exacerbation (chronic obstructive pulmonary disease) Lesion of skin of nose Compression fracture Rib pain Thoracic back pain Hyperlipidemia Thoracic radiculopathy Colon cancer screening Pneumonia (Acute) Hypoxia Back pain Compression fracture of body of thoracic vertebra T6, T7, T8 Cor pulmonale SOB (shortness of breath) Rib pain Back pain Anxiety and depression Osteoporosis Osteoarthritis of left shoulder Chronic obstructive pulmonary disease (Acute) Insomnia Low back pain Postinflammatory pulmonary fibrosis Depression Anxiety Tobacco use disorder Chronic respiratory failure 2 LPM oxygen PRN Follows with [facility] pulmonary COPD (chronic obstructive pulmonary disease) COPD/emphysema Breathing stable per patient Sarcoidosis Follows with [facility] pulmonary (pulmonary ) History of pulmonary embolism 2019: post-op shoulder replacement ~2020: unknown etiology Patient taking Xarelto Osteoporosis Anxiety with depression Medical History Scoliosis Surgical History History of esophagogastroduodenoscopy (EGD) History of lung biopsy History of bronchoscopy Hx of colonoscopy Hx of elbow surgery Right History of hip replacement Left PREETI (09/11/17): SAB x1 at L3-L4 at [facility] Family History Father Myocardial infarction Brother Anxiety COPD (chronic obstructive pulmonary disease) Daughter Anxiety Sister Breast cancer Other Diabetes Kidney disease No family history of adverse response to anesthesia Denies family history of Ovarian cancer Prostate cancer Colorectal cancer Social History Smoking Status: Current every day smoker Tobacco Type: Cigarettes Age Started Using Tobacco: 22; packs per day: 0.75; Cigarettes Per Day: 1 ppd (advised on policy); Second Hand Exposure: Yes (in the past); Do You Dip or Chew Tobacco: No; Hx Alcohol Use: No Hx Substance Use: No Preferred Language: Mongolian Communication Ability: Effective Visual Impairment: No Limitations Hearing Ability: Normal Chocolate Coater Required: No Beliefs That Will Affect Care: None marital status: Current Living Situation: Spouse Current Living Situation Comment: house current occupational status: retired and disabled 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 How many Children do You have: 2 Feels Safe at Home: Yes Safety Concerns: Feels Safe At This Time Childhood Exposure to Second-Hand Smoke: No Diet: regular Dental Care, Regularly: No Physical Activity Frequency: Does not Exercise Seatbelt Use: always Sunscreen Use: No (is not out in the sun much ) Assistive Devices: None Allergies Allergies Allergy/AdvReac Type Severity Reaction Status Date / Time No Known Allergies Allergy Verified 01/09/24 08:51 Home Meds Home Medications Medication Instructions Recorded Confirmed cholecalciferol (vitamin D3) 25 25 mcg PO QAM 07/04/23 02/09/24 mcg (1,000 unit) tablet (Vitamin D3) pantoprazole 40 mg tablet,delayed 40 mg PO QAM 07/04/23 02/09/24 release tizanidine 4 mg tablet 4 mg PO BID muscle spasticity 07/04/23 02/09/24 Previous Rx's Medication Instructions Recorded albuterol sulfate 2.5 mg/3 mL 2.5 mg (3 mL) inhalation QID PRN 07/28/21 (0.083 %) solution for nebulization Shortness Of Breath Or Wheezing #270 mL Wheelchair (Powered) (Power #1 ea 01/12/23 Wheelchair) Therapist Evaluation for Power #1 ea 01/30/23 Mobility rosuvastatin 5 mg tablet 5 mg PO QAM #90 tabs 06/12/23 Flutter Valve #1 ea 06/23/23 sodium chloride 7 % for 4 ml inhalation BID 30 days #240 mL 06/23/23 nebulization blood pressure monitor #1 ea 07/11/23 acetaminophen 500 mg tablet 1,000 mg (2 x 500 mg) PO TID pain 07/15/23 (Tylenol Extra Strength) 30 days #180 tabs ondansetron 4 mg disintegrating 4 mg PO Q8 PRN nausea #20 tabs 07/15/23 tablet sennosides 8.6 mg tablet (Senokot) 8.6 mg PO BID prevent constipation 07/15/23 14 days #28 tabs umeclidinium 62.5 mcg-vilanterol 1 inh inhalation QAM #60 ea 08/30/23 25 mcg/actuation powdr for inhalation (Anoro Ellipta) gabapentin 600 mg tablet 600 mg PO .QAM & AFTERNOON #60 tabs 09/29/23 trazodone 100 mg tablet 100 mg PO HS #90 tabs 10/11/23 escitalopram oxalate 10 mg tablet 10 mg PO QAM #90 tabs 10/27/23 albuterol sulfate 90 mcg/actuation 2 puff inhalation QID PRN 11/15/23 aerosol inhaler (Ventolin HFA) Shortness Of Breath Or Wheezing #18 grams lorazepam 1 mg tablet (Ativan) 1 mg PO DAILY PRN Anxiety #30 tabs 12/04/23 gabapentin 800 mg tablet 800 mg PO HS #30 tabs 12/13/23 budesonide 90 mcg/actuation breath 2 inh inhalation BID #1 ea 12/18/23 activated powder inhaler (Pulmicort Flexhaler) rivaroxaban 20 mg tablet (Xarelto) 20 mg PO HS #30 tabs 02/01/24 hydrocortisone 5 mg tablet See Rx Instructions PO TID #150 02/02/24 tabs Results & Data (ED) Vital Signs Vital Signs - 24 hr 02/09/24 17:10 02/09/24 17:10 02/09/24 17:14 Temperature 37.0 C Temperature Source Oral Pulse Rate 94 H Pulse Rate [Apical] 93 H Pulse Rate from SpO2 Sensor Respiratory Rate 28 H 22 Respiratory Effort / Characteristics Labored Pursed Lip Short of Breath SOB on Exertion Labored Spontaneous Respiratory Depth Shallow Shallow Respiratory Pattern Blood Pressure 114/59 L Blood Pressure Mean 77 Pulse Oximetry 93 96 Oxygen Delivery Method Nasal Cannula BiPAP Oxygen Flow Rate 4 Fraction of Inspired Oxygen 40 Sepsis Recent Fever Within 48 Hours No Sepsis New/Unexplained Change in Mental Status No Sepsis Action Taken by Nursing No Action Required Oxygen Flow Rate - Titration Pulse Oximetry Post Tiitration 02/09/24 17:14 02/09/24 17:50 02/09/24 18:00 Temperature Temperature Source Pulse Rate 94 H 93 H Pulse Rate [Apical] Pulse Rate from SpO2 Sensor 93 H Respiratory Rate 22 21 Respiratory Effort / Characteristics Spontaneous Respiratory Depth Normal Respiratory Pattern Blood Pressure 94/66 L 106/78 Blood Pressure Mean 75 91 Pulse Oximetry 97 94 Oxygen Delivery Method CPAP Oxygen Flow Rate Fraction of Inspired Oxygen 40 Sepsis Recent Fever Within 48 Hours Sepsis New/Unexplained Change in Mental Status Sepsis Action Taken by Nursing Oxygen Flow Rate - Titration Pulse Oximetry Post Tiitration 02/09/24 18:11 02/09/24 18:30 02/09/24 18:31 Temperature Temperature Source Pulse Rate 88 Pulse Rate [Apical] Pulse Rate from SpO2 Sensor 88 Respiratory Rate 23 Respiratory Effort / Characteristics Respiratory Depth Respiratory Pattern Blood Pressure 108/63 Blood Pressure Mean 73 Pulse Oximetry 98 98 Oxygen Delivery Method CPAP Oxygen Flow Rate Fraction of Inspired Oxygen 40 Sepsis Recent Fever Within 48 Hours Sepsis New/Unexplained Change in Mental Status Sepsis Action Taken by Nursing Oxygen Flow Rate - Titration 2 Pulse Oximetry Post Tiitration 92 02/09/24 18:35 02/09/24 18:54 02/09/24 18:55 Temperature Temperature Source Pulse Rate 90 84 Pulse Rate [Apical] 87 Pulse Rate from SpO2 Sensor 90 Respiratory Rate 25 H 24 24 Respiratory Effort / Characteristics Spontaneous Spontaneous Respiratory Depth Normal Respiratory Pattern Regular Blood Pressure Blood Pressure Mean Pulse Oximetry 89 L 96 96 Oxygen Delivery Method Nasal Cannula BiPAP Oxygen Flow Rate 2 Fraction of Inspired Oxygen 40 40 Sepsis Recent Fever Within 48 Hours Sepsis New/Unexplained Change in Mental Status Sepsis Action Taken by Nursing Oxygen Flow Rate - Titration Pulse Oximetry Post Tiitration 02/09/24 19:00 02/09/24 19:15 02/09/24 19:45 Temperature Temperature Source Pulse Rate 88 90 94 H Pulse Rate [Apical] Pulse Rate from SpO2 Sensor 88 90 94 H Respiratory Rate 18 28 H 28 H Respiratory Effort / Characteristics Respiratory Depth Respiratory Pattern Blood Pressure 108/78 117/71 99/73 L Blood Pressure Mean 88 86 81 Pulse Oximetry 99 98 97 Oxygen Delivery Method Oxygen Flow Rate Fraction of Inspired Oxygen Sepsis Recent Fever Within 48 Hours Sepsis New/Unexplained Change in Mental Status Sepsis Action Taken by Nursing Oxygen Flow Rate - Titration Pulse Oximetry Post Tiitration 02/09/24 20:00 02/09/24 20:00 02/09/24 20:00 Temperature Temperature Source Pulse Rate Pulse Rate [Apical] Pulse Rate from SpO2 Sensor Respiratory Rate Respiratory Effort / Characteristics Respiratory Depth Respiratory Pattern Blood Pressure 110/68 110/68 110/68 Blood Pressure Mean 81 81 81 Pulse Oximetry Oxygen Delivery Method Oxygen Flow Rate Fraction of Inspired Oxygen Sepsis Recent Fever Within 48 Hours Sepsis New/Unexplained Change in Mental Status Sepsis Action Taken by Nursing Oxygen Flow Rate - Titration Pulse Oximetry Post Tiitration 02/09/24 20:00 Temperature Temperature Source Pulse Rate 98 H Pulse Rate [Apical] Pulse Rate from SpO2 Sensor 98 H Respiratory Rate 26 H Respiratory Effort / Characteristics Respiratory Depth Respiratory Pattern Blood Pressure 110/68 Blood Pressure Mean 82 Pulse Oximetry 94 Oxygen Delivery Method Oxygen Flow Rate Fraction of Inspired Oxygen Sepsis Recent Fever Within 48 Hours Sepsis New/Unexplained Change in Mental Status Sepsis Action Taken by Nursing Oxygen Flow Rate - Titration Pulse Oximetry Post Tiitration Home Medications Current Medication List: was personally reviewed by me Laboratory Data Attestation: I reviewed the patient's lab results. 02/10/24 05:49 02/09/24 17:00 Lab Results 02/09/24 Range/Units 17:00 WBC 7.03 (4.8-10.8) K/ul RBC 4.63 (4.20-5.40) M/uL Hgb 13.7 (12.0-16.0) g/dl Hct 42.0 (37.0-47.0) % MCV 90.7 (80.0-100.0) fL MCH 29.6 (25.0-34.0) pg MCHC 32.6 (32.0-36.0) g/dL RDW Std Deviation 51.5 H (36.4-46.3) fL RDW Coeff of Perry 15.3 H (11.5-14.5) % Plt Count 169 (130-400) K/uL MPV 10.3 (9.4-12.4) fL Immature Gran % (Auto) 0.3 % Neut % (Auto) 72.9 % Lymph % (Auto) 17.4 % Gulf % (Auto) 6.7 % Eos % (Auto) 1.4 % Baso % (Auto) 1.3 % Neut # (Auto) 5.13 (1.40-6.50) K/uL Lymph # (Auto) 1.22 (1.20-3.40) K/uL Gulf # (Auto) 0.47 (0.11-0.59) K/uL Eos # (Auto) 0.10 (0.00-0.50) K/uL Baso # (Auto) 0.09 (0.00-0.20) K/uL Immature Gran # (Auto) 0.02 (0.01-0.20) K/uL PT 11.2 (9.0-12.0) Seconds INR 1.0 (0.9-1.1) APTT 30 (21-31) Seconds PTT Ratio 1.1 VBG pH 7.42 H (7.36-7.41) VBG pCO2 62 H (38-50) mmHg VBG pO2 40 mmHg VBG HCO3 40 mmol/L VBG O2 Saturation 68.8 % VBG Base Excess 12.9 mEq/L Sodium 138 (136-145) mmol/L Potassium 3.7 (3.5-5.1) mmol/L Chloride 96 L (98-107) mmol/L Carbon Dioxide 36 H (21-32) mmol/L Anion Gap 6 (3-11) BUN 12 (6-23) mg/dl Creatinine 0.80 (0.6-1.2) mg/dl Est Cr Clr Drug Dosing 54.9 ml/min Est GFR ( Amer) 87.2 ml/min Est GFR (Non-Af Amer) 75.2 ml/min BUN/Creatinine Ratio 15.0 (10-20) Glucose 127 H (70-99(Fasting)) mg/dl Calcium 10.0 (8.6-10.3) mg/dl Magnesium 1.9 (1.7-2.4) mg/dl Total Bilirubin 0.7 (0.2-1.0) mg/dl AST 13 (13-39) U/L ALT 8 (7-52) U/L Alkaline Phosphatase 87 (34-104) U/L Troponin I High Sens 3.7 (0-14) pg/ml Total Protein 7.7 (6.0-8.3) gm/dl Albumin 4.1 (3.4-5.0) gm/dl Globulin 3.6 (2.5-4.0) gm/dl Albumin/Globulin Ratio 1.1 (0.9-2) Administered Medications Acetaminophen (Acetaminophen 325 Mg Tab) 650 mg PO Q4H PRN PRN Reason: Pain or Fever Stop: 03/10/24 22:59 Last Admin: 02/10/24 09:27 Dose: 650 mg Documented By: AM Albuterol (Albut/Ipratrop 3mg/0.5mg Neb 3 Ml Vial) 3 ml NEB QIDR [facility]; Protocol Stop: 03/11/24 06:59 Last Admin: 02/10/24 11:00 Dose: 3 ml Documented By: [id number] Admin: 02/10/24 07:25 Dose: 3 ml Documented By: [id number] Benzonatate (Benzonatate 100 Mg Capsule) 100 mg PO TID PRN PRN Reason: Cough Stop: 03/11/24 08:59 Last Admin: 02/09/24 23:53 Dose: 100 mg Documented By: NAOMI Escitalopram Oxalate (Escitalopram Oxalate 10 Mg Tab) 10 mg PO QAM [facility] Stop: 03/11/24 08:59 Last Admin: 02/10/24 09:10 Dose: 10 mg Documented By: TROY Gabapentin (Gabapentin 600 Mg Tab) 600 mg PO BID@0900,1400 [facility] Stop: 03/11/24 08:59 Last Admin: 02/10/24 09:09 Dose: 600 mg Documented By: TROY Gabapentin (Gabapentin 800 Mg Tab) 800 mg PO HS [facility] Stop: 03/10/24 22:59 Last Admin: 02/09/24 23:53 Dose: 800 mg Documented By: NAOMI Guaifenesin (Guaifenesin 600 Mg Tabcr) 1,200 mg PO Q12 [facility] Stop: 03/11/24 08:59 Last Admin: 02/10/24 09:08 Dose: 1,200 mg Documented By: TROY Methylprednisolone 40 mg/ (Syringe) 0.64 mls @ 1.5 mls/min IV Q8H [facility] Stop: 03/11/24 05:59 Last Admin: 02/10/24 06:11 Dose: 1.5 mls/min Documented By: NAOMI Pantoprazole Sodium 40 mg/ (Syringe) 10 mls @ 5 mls/min IV DAILY@1100 [facility] Stop: 03/11/24 10:59 Last Admin: 02/10/24 10:46 Dose: 5 mls/min Documented By: TROY Lorazepam (Lorazepam 1 Mg Tab) 1 mg PO DAILY PRN PRN Reason: Anxiety Stop: 03/10/24 22:59 Last Admin: 02/09/24 23:25 Dose: 1 mg Documented By: NAOMI Rivaroxaban (Rivaroxaban 20 Mg Tab) 20 mg PO QDD [facility] Stop: 03/10/24 22:59 Last Admin: 02/09/24 23:53 Dose: 20 mg Documented By: NAOMI Rosuvastatin Calcium (Rosuvastatin Calcium 5 Mg Tab) 5 mg PO QAM [facility] Stop: 03/11/24 08:59 Last Admin: 02/10/24 09:09 Dose: 5 mg Documented By: TROY Sennosides (Senna 8.6 Mg Tab) 8.6 mg PO BID [facility] Stop: 03/10/24 22:59 Last Admin: 02/10/24 09:19 Dose: Not Given Documented By: Admin: 02/09/24 23:57 Dose: Not Given Documented By: NAOMI Sodium Chloride (Sodium Chlor 7% 4 Ml Neb) 4 ml INH BIDR [facility] Stop: 03/10/24 22:59 Last Admin: 02/10/24 07:25 Dose: 4 ml Documented By: [id number] Admin: 02/09/24 23:18 Dose: 4 ml Documented By: [id number] Trazodone HCl (Trazodone Hcl 100 Mg Tab) 100 mg PO HS [facility] Stop: 03/10/24 22:59 Last Admin: 02/09/24 23:53 Dose: 100 mg Documented By: NAOMI Umeclidinium/Vilanterol (Umeclidinium/Vilanterol 62.5/25mcg 7 Puffs/Inhaler) 1 puffs INH QAM [facility] Stop: 03/11/24 08:59 Last Admin: 02/10/24 09:11 Dose: 1 puffs Documented By: TROY Vitamin D (Cholecalciferol 25 Mcg (1000 Units) Tab) 25 mcg PO QAM [facility] Stop: 03/11/24 08:59 Last Admin: 02/10/24 09:10 Dose: 25 mcg Documented By: TROY Discontinued Medications Albuterol (Albut/Ipratrop 3mg/0.5mg Neb 3 Ml Vial) 12 ml INH ONE STA Stop: 02/09/24 16:55 Last Admin: 02/09/24 17:11 Dose: 12 ml Documented By: AUDI Albuterol (Albut/Ipratrop 3mg/0.5mg Neb 3 Ml Vial) 12 ml NEB ONE ONE; Protocol Stop: 02/09/24 18:28 Last Admin: 02/09/24 18:51 Dose: 12 ml Documented By: ANN-MARIE Albuterol (Albut/Ipratrop 3mg/0.5mg Neb 3 Ml Vial) Confirm Administered Dose 3 ml .ROUTE .STK-MED ONE Stop: 02/09/24 23:04 Last Admin: 02/09/24 23:05 Dose: 3 ml Documented By: [id number] Sodium Chloride (Nss) 1,000 mls @ 999 mls/hr IV .Q1H1M [facility] Stop: 02/09/24 18:00 Last Infusion: 02/09/24 18:43 Dose: Infused Documented By: Admin: 02/09/24 17:24 Dose: 999 mls/hr Documented By: DEE Magnesium Sulfate/Dextrose (Magnesium Sulfate / D5w) 1 gm in 100 mls @ 300 mls/hr IV Q1H [facility] Stop: 02/09/24 18:19 Last Infusion: 02/09/24 19:13 Dose: Infused Documented By: Admin: 02/09/24 18:16 Dose: 100 mls/hr Documented By: Infusion: 02/09/24 18:16 Dose: Infused Documented By: Admin: 02/09/24 17:24 Dose: 100 mls/hr Documented By: DEE Sodium Chloride (Nss) 500 mls @ 999 mls/hr IV .Q31M ONE Stop: 02/09/24 18:57 Last Infusion: 02/09/24 19:13 Dose: Infused Documented By: Admin: 02/09/24 18:42 Dose: 999 mls/hr Documented By: SLIME Ceftriaxone Sodium (Rocephin) 2,000 mg in 50 mls @ 100 mls/hr IV NOW STA Stop: 02/09/24 19:37 Last Infusion: 02/09/24 19:54 Dose: Infused Documented By: Admin: 02/09/24 19:24 Dose: 100 mls/hr Documented By: VENUS Azithromycin 500 mg/ Dextrose 255 mls @ 125 mls/hr IV 2000 ONE Stop: 02/09/24 22:02 Last Infusion: 02/10/24 00:50 Dose: Infused Documented By: Admin: 02/09/24 21:17 Dose: 125 mls/hr Documented By: VENUS Potassium Chloride/Sodium Chloride (Normal Saline W/20 Meq Kcl) 20 meq in 1,000 mls @ 80 mls/hr IV .[id number] [facility]; Protocol Stop: 02/10/24 08:29 Last Infusion: 02/10/24 10:11 Dose: Infused Documented By: Admin: 02/09/24 21:18 Dose: 80 mls/hr Documented By: VENUS Lorazepam (Lorazepam 1 Mg/1 Ml Syr Ed Inj Use) 0.25 mg IV ONE STA Stop: 02/09/24 19:03 Last Admin: 02/09/24 19:10 Dose: 0.25 mg Documented By: VENUS Methylprednisolone (Methylprednisolone 125 Mg/2 Ml Vial) 125 mg IV NOW STA Stop: 02/09/24 19:52 Last Admin: 02/09/24 21:17 Dose: 125 mg Documented By: VENUS Sodium Chloride (Sodium Chlor 7% 4 Ml Neb) Confirm Administered Dose 4 ml .ROUTE .STK-MED ONE Stop: 02/09/24 23:17 Last Admin: 02/10/24 05:06 Dose: Not Given Documented By: ANN-MARIE Tizanidine HCl (Tizanidine Hcl 4 Mg Tablet) 4 mg PO BID [facility] Stop: 03/10/24 22:59 Last Admin: 02/09/24 23:57 Dose: Not Given Documented By: NAOMI Imaging Data Radiologist's Impression: Chest X-Ray 02/09/24 16:54 XR chest 1V portable CLINICAL HISTORY: Dyspnea TECHNIQUE: Single frontal radiograph of the chest was obtained. Comparison: Comparison is made to chest radiograph 07/20/2023 FINDINGS: Right shoulder arthroplasty is seen. The cardiomediastinal silhouette is normal. Emphysema and interstitial thickening is seen. Small bilateral pleural effusions are seen. IMPRESSION: Small bilateral pleural effusions. No pneumonia is seen. ACT 112: Negative or not required by law. Electronically signed by: Prince Eaton M.D. 02/09/2024 6:03 PM Discharge Plan Visit Data Chief Complaint: Shortness of Breath/Dyspnea Stated Complaint: SOB ED Provider: Luis Galvin Discharge Problem: Acute exacerbation of chronic obstructive pulmonary disease, Acute dyspnea, Acute dehydration Patient Disposition: Admitted As Inpatient Discharge Instructions Interventions: ED Discharge Assessment Last Done: 02/09/24 22:23
[2024-02-09] MEDS: ALBUT/IPRATROP 3MG/0.5MG NEB 3 ML VIAL INH STA (17:11)
[2024-02-09 17:20] LABS: Base Excess VBG 12.9 mEq/L; HCO3 VBG 40 mmol/L; Oxygen Saturation VBG 68.8 %; PCO2 VBG 62 mmHg (38-50); PO2 VBG 40 mmHg; pH VBG 7.42 (7.36-7.41)
[2024-02-09] MEDS: MAGNESIUM SULFATE / D5W 1 GM/100 ML BAG IV SCH (17:24)
[2024-02-09] MEDS: SODIUM CHLORIDE 0.9% 1,000 ML IV SCH (17:24)
[2024-02-09 17:32] LABS: Basophils # (auto) 0.09 K/uL (0.00-0.20); Basophils % (auto) 1.3 %; Eosinophils % (auto) 1.4 %; Hemoglobin 13.7 g/dl (12.0-16.0); Immature Granulocytes # (auto) 0.02 K/uL (0.01-0.20); Immature Granulocytes % (auto) 0.3 %; Lymphocytes # (auto) 1.22 K/uL (1.20-3.40); Lymphocytes % (auto) 17.4 %; Mean Corpuscular Hemoglobin 29.6 pg (25.0-34.0); Mean Corpuscular Hgb Conc 32.6 g/dL (32.0-36.0); Mean Corpuscular Volume 90.7 fL (80.0-100.0); Mean Platelet Volume 10.3 fL (9.4-12.4); Monocytes # (auto) 0.47 K/uL (0.11-0.59); Monocytes % (auto) 6.7 %; Neutrophils # (auto) 5.13 K/uL (1.40-6.50); Neutrophils % (auto) 72.9 %; Platelet Count 169 K/uL (130-400); RDW Coefficient of Variation 15.3 % (11.5-14.5); RDW Standard Deviation 51.5 fL (36.4-46.3); Red Blood Count 4.63 M/uL (4.20-5.40); White Blood Count 7.03 K/ul (4.8-10.8)
[2024-02-09 17:55] LABS: Albumin Globulin Ratio 1.1 (0.9-2); Albumin Level 4.1 gm/dl (3.4-5.0); Bilirubin,Total 0.7 mg/dl (0.2-1.0); Creatinine Clr Calc Pharmacy 54.9 ml/min; Est GFR (African American) 87.2 ml/min; Est GFR (Non-African American) 75.2 ml/min; Globulin 3.6 gm/dl (2.5-4.0); Potassium 3.7 mmol/L (3.5-5.1); Total Protein 7.7 gm/dl (6.0-8.3)
[2024-02-09 18:00] LABS: Appearance Urine Clear (Clear); Bacteria Urine Automated None Seen (None Seen); Bilirubin Urine Negative (Negative); Blood Urine Negative (Negative); Cast Urine Automated 0-2 /lpf (0-2); Color Urine Yellow; Epithelial Cell Urine Auto 0-2 /hpf (0-2); Glucose Urine UA Negative (Negative); Ketones Urine Trace (Negative); Leukocyte Esterase Urine 2+ (Negative); Nitrite Urine Negative (Negative); Protein Urine Trace (Negative); RBC Urine Automated 0-2 /hpf (0-2); Specific Gravity Urine 1.012 (1.000-1.030); Urobilinogen Urine Negative (Negative); WBC Urine Automated 21-50 /hpf (0-5)
[2024-02-09 18:01] LABS: Troponin I High Sensitivity 3.7 pg/ml (0-14)
--- NOTE | 2024-02-09 18:04 | XRay Report ---
XR chest 1V portable CLINICAL HISTORY: Dyspnea TECHNIQUE: Single frontal radiograph of the chest was obtained. Comparison: Comparison is made to chest radiograph 07/20/2023 FINDINGS: Right shoulder arthroplasty is seen. The cardiomediastinal silhouette is normal. Emphysema and inters titial thickening is seen. Small bilateral pleural effusions are seen. IMPRESSION: Small bilateral pleural effusions. No pneumonia is seen. ACT 112: Negative or not required by law. Electronically signed by: Prince Eaton M.D. 02/09/2024 6:03 PM
[2024-02-09 18:05] LABS: Partial Thromboplastin Ratio 1.1; Partial Thromboplastin Time 30 Seconds (21-31); Prothrombin Time 11.2 Seconds (9.0-12.0)
[2024-02-09 18:31] LABS: Adenovirus PCR Not Detected (NotDetected); Bordetella parapertussis PCR Not Detected (NotDetected); Bordetella pertussis PCR Not Detected (NotDetected); Chlamydia pneumoniae PCR Not Detected (NotDetected); Coronavirus 229E PCR Not Detected (NotDetected); Coronavirus CoV-2 (COVID19)PCR Not Detected (NotDetected); Coronavirus HKU1 PCR Not Detected (NotDetected); Coronavirus NL63 PCR Not Detected (NotDetected); Coronavirus OC43PCR Not Detected (NotDetected); Human Metapneumovirus PCR Not Detected (NotDetected); Influenza A PCR Not Detected (NotDetected); Influenza B PCR Not Detected (NotDetected); Mycoplasma pneumoniae PCR Not Detected (NotDetected); Parainfluenza Virus 1 PCR Not Detected (NotDetected); Parainfluenza Virus 2 PCR Not Detected (NotDetected); Parainfluenza Virus 3 PCR Not Detected (NotDetected); Parainfluenza Virus 4 PCR Not Detected (NotDetected); Respiratory Syncytial VirusPCR Not Detected (NotDetected); Rhinovirus/Enterovirus PCR Not Detected (NotDetected)
[2024-02-09] MEDS: SODIUM CHLORIDE 0.9% 500 ML IV ONE (18:42)
[2024-02-09] MEDS: ALBUT/IPRATROP 3MG/0.5MG NEB 3 ML VIAL NEB ONE (18:51)
[2024-02-09] MEDS: LORazepam 1 MG/1 ML SYR ED Inj Use IV STA (19:10)
[2024-02-09] MEDS: cefTRIAXone SODIUM 2,000 MG/50 ML BAG IV STA (19:24)
--- NOTE | 2024-02-09 20:10 | History & Physical Report ---
Date of Service February 09, 2024 Assessment & Plan (1) Acute on chronic respiratory failure with hypoxia: (2) Tobacco use disorder: (3) Adrenal insufficiency: (4) Anxiety and depression: (5) Myofascial pain: (6) Sarcoidosis: (7) History of pulmonary embolism: (8) GERD (gastroesophageal reflux disease): (9) Acute exacerbation of chronic obstructive pulmonary disease: Plan Acute on chronic respiratory failure with hypoxia/COPD exacerbation/sarcoidosis- Give Solu-Medrol 125 mg IV now, then 40 mg IV every 8 hours Duonebs every 4 hours while awake and every 2 hours when necessary. Ceftriaxone 2 g IV daily Azithromycin 500 mg IV daily Guaifenesin extended release 1200 mg p.o. every 12 hours NSS + KCl 20 mill equivalents at 80 mL/h x 1 L BioFire test negative As symptoms improve, patient will be changed from To mask/cannula as tolerated Myofascial pain/anxiety and depression- Continue escitalopram, gabapentin, lorazepam, trazodone, and tizanidine History of pulmonary embolism- Continue Xarelto GERD- Continue pantoprazole but changed to IV Hyperlipidemia- Continue rosuvastatin History of Present Illness Chief Complaint: The patient presents to the emergency department with complaints of shortness of breath and chest tightness over the past several days, with intermittent thick productive sputum Primary Care Provider: CLAY Michele The patient is a 68-year-old female with a past medical history including COPD, adrenal insufficiency, GERD, bronchiectasis, ambulatory dysfunction, hyperlipidemia, thoracic vertebral compression fracture, anxiety and depression, chronic respiratory failure, sarcoidosis, history of pulmonary embolism, and tobacco use disorder. She presents to the emergency department with complaint of worsening shortness of breath, chest tightness and cough productive of thick sputum over the past several days. Upon presentation to the emergency department, she was placed on mask, and then BiPAP, received 2 hour-long DuoNeb treatments, magnesium sulfate, and a dose of lorazepam from the ED. Allergies Allergy/AdvReac Type Severity Reaction Status Date / Time No Known Allergies Allergy Verified 01/09/24 08:51 Home Medications Medication Instructions Recorded Confirmed Type albuterol sulfate 2.5 mg/3 mL 2.5 mg (3 mL) inhalation QID PRN 07/28/21 02/09/24 Rx (0.083 %) solution for nebulization Shortness Of Breath Or Wheezing #270 mL Wheelchair (Powered) (Power #1 ea 01/12/23 02/09/24 Rx Wheelchair) Therapist Evaluation for Power #1 ea 01/30/23 02/09/24 Rx Mobility rosuvastatin 5 mg tablet 5 mg PO QAM #90 tabs 06/12/23 02/09/24 Rx Flutter Valve #1 ea 06/23/23 02/09/24 Rx sodium chloride 7 % for 4 ml inhalation BID 30 days #240 mL 06/23/23 02/09/24 Rx nebulization cholecalciferol (vitamin D3) 25 25 mcg PO QAM 07/04/23 02/09/24 History mcg (1,000 unit) tablet (Vitamin D3) pantoprazole 40 mg tablet,delayed 40 mg PO QAM 07/04/23 02/09/24 History release tizanidine 4 mg tablet 4 mg PO BID muscle spasticity 07/04/23 02/09/24 History blood pressure monitor #1 ea 07/11/23 02/09/24 Rx acetaminophen 500 mg tablet 1,000 mg (2 x 500 mg) PO TID pain 07/15/23 02/09/24 Rx (Tylenol Extra Strength) 30 days #180 tabs ondansetron 4 mg disintegrating 4 mg PO Q8 PRN nausea #20 tabs 07/15/23 02/09/24 Rx tablet sennosides 8.6 mg tablet (Senokot) 8.6 mg PO BID prevent constipation 07/15/23 02/09/24 Rx 14 days #28 tabs umeclidinium 62.5 mcg-vilanterol 1 inh inhalation QAM #60 ea 08/30/23 02/09/24 Rx 25 mcg/actuation powdr for inhalation (Anoro Ellipta) gabapentin 600 mg tablet 600 mg PO .QAM & AFTERNOON #60 tabs 09/29/23 02/09/24 Rx trazodone 100 mg tablet 100 mg PO HS #90 tabs 10/11/23 02/09/24 Rx escitalopram oxalate 10 mg tablet 10 mg PO QAM #90 tabs 10/27/23 02/09/24 Rx albuterol sulfate 90 mcg/actuation 2 puff inhalation QID PRN 11/15/23 02/09/24 Rx aerosol inhaler (Ventolin HFA) Shortness Of Breath Or Wheezing #18 grams lorazepam 1 mg tablet (Ativan) 1 mg PO DAILY PRN Anxiety #30 tabs 12/04/23 02/09/24 Rx gabapentin 800 mg tablet 800 mg PO HS #30 tabs 12/13/23 02/09/24 Rx budesonide 90 mcg/actuation breath 2 inh inhalation BID #1 ea 12/18/23 02/09/24 Rx activated powder inhaler (Pulmicort Flexhaler) rivaroxaban 20 mg tablet (Xarelto) 20 mg PO HS #30 tabs 02/01/24 02/09/24 Rx hydrocortisone 5 mg tablet See Rx Instructions PO TID #150 02/02/24 02/09/24 Rx tabs 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 Avascular necrosis of bone of right hip Unintentional weight loss Vitamin D deficiency Right hip pain Pleural effusion Cough Bronchiectasis Other cervical disc degeneration, mid-cervical region, unspecified level Other kyphosis, thoracic region Balance problem Ambulatory dysfunction Dysphagia OLGUIN (dyspnea on exertion) (Acute) Decompensated COPD with exacerbation (chronic obstructive pulmonary disease) Lesion of skin of nose Compression fracture Rib pain Thoracic back pain Hyperlipidemia Thoracic radiculopathy Colon cancer screening Pneumonia (Acute) Hypoxia Back pain Compression fracture of body of thoracic vertebra T6, T7, T8 Cor pulmonale SOB (shortness of breath) Rib pain Back pain Anxiety and depression Osteoporosis Osteoarthritis of left shoulder Chronic obstructive pulmonary disease (Acute) Insomnia Low back pain Postinflammatory pulmonary fibrosis Depression Anxiety Tobacco use disorder Chronic respiratory failure 2 LPM oxygen PRN Follows with [facility] pulmonary COPD (chronic obstructive pulmonary disease) COPD/emphysema Breathing stable per patient Sarcoidosis Follows with [facility] pulmonary (pulmonary ) History of pulmonary embolism 2019: post-op shoulder replacement ~2020: unknown etiology Patient taking Xarelto Osteoporosis Anxiety with depression Medical History Scoliosis Surgical History History of esophagogastroduodenoscopy (EGD) History of lung biopsy History of bronchoscopy Hx of colonoscopy Hx of elbow surgery Right History of hip replacement Left PREETI (09/11/17): SAB x1 at L3-L4 at [facility] Family History Father Myocardial infarction Brother Anxiety COPD (chronic obstructive pulmonary disease) Daughter Anxiety Sister Breast cancer Other Diabetes Kidney disease No family history of adverse response to anesthesia Denies family history of Ovarian cancer Prostate cancer Colorectal cancer Social History Smoking Status: Current every day smoker Tobacco Type: Cigarettes Age Started Using Tobacco: 22; packs per day: 0.75; Cigarettes Per Day: 1 ppd (advised on policy); Second Hand Exposure: Yes (in the past); Do You Dip or Chew Tobacco: No; Hx Alcohol Use: No Hx Substance Use: No Preferred Language: German Communication Ability: Effective Visual Impairment: No Limitations Hearing Ability: Normal Document Reviewer Required: No Beliefs That Will Affect Care: None marital status: Current Living Situation: Spouse Current Living Situation Comment: house current occupational status: retired and disabled 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 How many Children do You have: 2 Feels Safe at Home: Yes Safety Concerns: Feels Safe At This Time Childhood Exposure to Second-Hand Smoke: No Diet: regular Dental Care, Regularly: No Physical Activity Frequency: Does not Exercise Seatbelt Use: always Sunscreen Use: No (is not out in the sun much ) Assistive Devices: None Review of Systems Review of Systems: The patient denies chest pain, palpitations, lower extremity swelling, sore throat, fevers, chills, sweats, nausea, vomiting, diarrhea , constipation, abdominal pain, pelvic pain, blood in urine or stool, dysuria, urinary frequency or urgency, lightheadedness, dizziness, headache, memory loss, loss of consciousness, rash, abnormal bruising or bleeding, imbalance, focal weakness, numbness or tingling in arms or legs, generalized arthralgias or myalgias, back or neck pain, or night sweats. The review of systems is otherwise negative other than for that already noted above, and at least 10 systems have been reviewed. Physical Exam Physical Exam: The patient is awake, alert and oriented 3, well developed and well nourished, normocephalic and atraumatic, lying in bed and in mild acute distress. HEENT--PERRL, EOMI, mucous membranes and oropharynx dry. Neck--supple. No JVD. No bruits. Thyroid normal, trachea midline, no adenopathy. Heart--normal S1 and S2. No murmurs, rubs or gallops. Lungs--wheezes bilaterally with coarse breath sounds. Mild Respiratory distress, no accessory muscle use after receiving the above treatments from the ED Abdomen--normal bowel sounds and soft. Nontender. Nondistended, no hernias or masses, no organomegaly. Extremities-- No edema. Dermatologic--normal skin turgor, normal color, no abnormal lymph nodes, no rash. Neurologic--cranial nerves II through XII grossly intact. Rheumatologic--normal range of motion. Psychiatric--normal affect. Results & Data Results & Data Vital Signs (Past 12 Hours) Vital Signs Temp Pulse Pulse Resp BP Pulse Ox O2 Del Method 02/09/24 18:55 84 24 96 02/09/24 18:54 87 24 96 BiPAP 02/09/24 18:35 90 25 H 89 L Nasal Cannula 02/09/24 18:31 98 02/09/24 18:30 108/63 02/09/24 18:11 88 23 98 CPAP 02/09/24 18:00 106/78 02/09/24 17:50 93 H 21 94/66 L 94 CPAP 02/09/24 17:14 94 H 22 97 02/09/24 17:14 93 H 22 96 BiPAP 02/09/24 17:10 37.0 C 94 H 28 H 114/59 L 93 Nasal Cannula O2 Flow Rate FiO2 02/09/24 18:55 40 02/09/24 18:54 40 02/09/24 18:35 2 02/09/24 18:31 40 02/09/24 18:30 02/09/24 18:11 02/09/24 18:00 02/09/24 17:50 02/09/24 17:14 40 02/09/24 17:14 40 02/09/24 17:10 4 Laboratory Results Laboratory Results WBC 7.03 K/ul (4.8-10.8) 02/09/24 17:00 RBC 4.63 M/uL (4.20-5.40) 02/09/24 17:00 Hgb 13.7 g/dl (12.0-16.0) 02/09/24 17:00 Hct 42.0 % (37.0-47.0) 02/09/24 17:00 MCV 90.7 fL (80.0-100.0) 02/09/24 17:00 MCH 29.6 pg (25.0-34.0) 02/09/24 17:00 MCHC 32.6 g/dL (32.0-36.0) 02/09/24 17:00 RDW Std Deviation 51.5 fL (36.4-46.3) H 02/09/24 17:00 RDW Coeff of [place] 15.3 % (11.5-14.5) H 02/09/24 17:00 Plt Count 169 K/uL (130-400) 02/09/24 17:00 MPV 10.3 fL (9.4-12.4) 02/09/24 17:00 Immature Gran % (Auto) 0.3 % 02/09/24 17:00 Neut % (Auto) 72.9 % 02/09/24 17:00 Lymph % (Auto) 17.4 % 02/09/24 17:00 [place] % (Auto) 6.7 % 02/09/24 17:00 Eos % (Auto) 1.4 % 02/09/24 17:00 Baso % (Auto) 1.3 % 02/09/24 17:00 Neut # (Auto) 5.13 K/uL (1.40-6.50) 02/09/24 17:00 Lymph # (Auto) 1.22 K/uL (1.20-3.40) 02/09/24 17:00 [place] # (Auto) 0.47 K/uL (0.11-0.59) 02/09/24 17:00 Eos # (Auto) 0.10 K/uL (0.00-0.50) 02/09/24 17:00 Baso # (Auto) 0.09 K/uL (0.00-0.20) 02/09/24 17:00 Immature Gran # (Auto) 0.02 K/uL (0.01-0.20) 02/09/24 17:00 PT 11.2 Seconds (9.0-12.0) 02/09/24 17:00 INR 1.0 (0.9-1.1) 02/09/24 17:00 APTT 30 Seconds (21-31) 02/09/24 17:00 PTT Ratio 1.1 02/09/24 17:00 VBG pH 7.42 (7.36-7.41) H 02/09/24 17:00 VBG pCO2 62 mmHg (38-50) H 02/09/24 17:00 VBG pO2 40 mmHg 02/09/24 17:00 VBG HCO3 40 mmol/L 02/09/24 17:00 VBG O2 Saturation 68.8 % 02/09/24 17:00 VBG Base Excess 12.9 mEq/L 02/09/24 17:00 Sodium 138 mmol/L (136-145) 02/09/24 17:00 Potassium 3.7 mmol/L (3.5-5.1) 02/09/24 17:00 Chloride 96 mmol/L (98-107) L 02/09/24 17:00 Carbon Dioxide 36 mmol/L (21-32) H 02/09/24 17:00 Anion Gap 6 (3-11) 02/09/24 17:00 BUN 12 mg/dl (6-23) 02/09/24 17:00 Creatinine 0.80 mg/dl (0.6-1.2) 02/09/24 17:00 Est Cr Clr Drug Dosing 54.9 ml/min 02/09/24 17:00 Est GFR ( Amer) 87.2 ml/min 02/09/24 17:00 Est GFR (Non-Af Amer) 75.2 ml/min 02/09/24 17:00 BUN/Creatinine Ratio 15.0 (10-20) 02/09/24 17:00 Glucose 127 mg/dl (70-99(Fasting)) H 02/09/24 17:00 Calcium 10.0 mg/dl (8.6-10.3) 02/09/24 17:00 Magnesium 1.9 mg/dl (1.7-2.4) 02/09/24 17:00 Total Bilirubin 0.7 mg/dl (0.2-1.0) 02/09/24 17:00 AST 13 U/L (13-39) 02/09/24 17:00 ALT 8 U/L (7-52) 02/09/24 17:00 Alkaline Phosphatase 87 U/L (34-104) 02/09/24 17:00 Troponin I High Sens 3.7 pg/ml (0-14) 02/09/24 17:00 Total Protein 7.7 gm/dl (6.0-8.3) 02/09/24 17:00 Albumin 4.1 gm/dl (3.4-5.0) 02/09/24 17:00 Globulin 3.6 gm/dl (2.5-4.0) 02/09/24 17:00 Albumin/Globulin Ratio 1.1 (0.9-2) 02/09/24 17:00 Urine Color Yellow 02/09/24 Unknown Urine Appearance Clear (Clear) 02/09/24 Unknown Urine pH 6.0 (4.5-7.5) 02/09/24 Unknown Ur Specific [place] 1.012 (1.000-1.030) 02/09/24 Unknown Urine Protein Trace (Negative) H 02/09/24 Unknown Urine Glucose (UA) Negative (Negative) 02/09/24 Unknown Urine Ketones Trace (Negative) H 02/09/24 Unknown Urine Blood Negative (Negative) 02/09/24 Unknown Urine Nitrite Negative (Negative) 02/09/24 Unknown Urine Bilirubin Negative (Negative) 02/09/24 Unknown Urine Urobilinogen Negative (Negative) 02/09/24 Unknown Ur Leukocyte Esterase 2+ (Negative) H 02/09/24 Unknown Urine WBC (Auto) 21-50 /hpf (0-5) H 02/09/24 Unknown Urine RBC (Auto) 0-2 /hpf (0-2) 02/09/24 Unknown U Hyaline Cast (Auto) 0-2 /lpf (0-2) 02/09/24 Unknown U Epithel Cells (Auto) 0-2 /hpf (0-2) 02/09/24 Unknown Urine Bacteria (Auto) None Seen (None Seen) 02/09/24 Unknown Nasal Screen MRSA (PCR) Negative (Negative) 02/10/24 Unknown Adenovirus (PCR) Not Detected (NotDetected) 02/09/24 Unknown B. pertussis DNA (PCR) Not Detected (NotDetected) 02/09/24 Unknown B.parapertussis DNA PCR Not Detected (NotDetected) 02/09/24 Unknown C. pneumoniae DNA (PCR) Not Detected (NotDetected) 02/09/24 Unknown Coronavirus OC43 (PCR) Not Detected (NotDetected) 02/09/24 Unknown Coronavirus HKU1 (PCR) Not Detected (NotDetected) 02/09/24 Unknown Coronavirus 229E (PCR) Not Detected (NotDetected) 02/09/24 Unknown SARS-CoV-2 (PCR) Not Detected (NotDetected) 02/09/24 Unknown Coronavirus NL63 (PCR) Not Detected (NotDetected) 02/09/24 Unknown Human Metapneumovir PCR Not Detected (NotDetected) 02/09/24 Unknown Influenza Type A (PCR) Not Detected (NotDetected) 02/09/24 Unknown Influenza Type B (PCR) Not Detected (NotDetected) 02/09/24 Unknown M. pneumoniae (PCR) Not Detected (NotDetected) 02/09/24 Unknown Parainfluenza 1 (PCR) Not Detected (NotDetected) 02/09/24 Unknown Parainfluenza 2 (PCR) Not Detected (NotDetected) 02/09/24 Unknown Parainfluenza 3 (PCR) Not Detected (NotDetected) 02/09/24 Unknown Parainfluenza 4 (PCR) Not Detected (NotDetected) 02/09/24 Unknown RSV (PCR) Not Detected (NotDetected) 02/09/24 Unknown Entero/Rhino (PCR) Not Detected (NotDetected) 02/09/24 Unknown Impressions Chest X-Ray 02/09/24 16:54 XR chest 1V portable CLINICAL HISTORY: Dyspnea TECHNIQUE: Single frontal radiograph of the chest was obtained. Comparison: Comparison is made to chest radiograph 07/20/2023 FINDINGS: Right shoulder arthroplasty is seen. The cardiomediastinal silhouette is normal. Emphysema and interstitial thickening is seen. Small bilateral pleural effusions are seen. IMPRESSION: Small bilateral pleural effusions. No pneumonia is seen. ACT 112: Negative or not required by law. Electronically signed by: Prince Eaton M.D. 02/09/2024 6:03 PM Code Status & VTE Plan Code Status Full code VTE Prophylaxis Plan VTE Prophylaxis will be ordered: Yes PG Care Time/CCT Total # of Minutes Spent Total Time Spent with Patient: Total time spent is greater than 50% in coordination of care (as documented) at patient's floor/unit and/or counseling patient: Coding Level of Care Code 70935 INT INP/OBS CARE 3/75MIN Diagnoses Acute on chronic respiratory failure with hypoxia J96.21 Tobacco use disorder F17.200 Adrenal insufficiency E27.40 Anxiety and depression F41.9; F32.9 Myofascial pain M79.18 Sarcoidosis D86.9 History of pulmonary embolism Z86.711 GERD (gastroesophageal reflux disease) K21.9 Acute exacerbation of chronic obstructive pulmonary disease J44.1
[2024-02-09 20:38] LABS: Magnesium 1.9 mg/dl (1.7-2.4)
[2024-02-09] MEDS: methylPREDNISolone 125 MG/2 ML VIAL IV STA (21:17)
[2024-02-09] MEDS: AZITHROMYCIN 500 MG in DEXTROSE 5% 250 ML IV ONE (21:17)
[2024-02-09] MEDS: NSS + 20MEQ KCL 20 MEQ/1,000 ML BAG IV SCH (21:18)
[2024-02-09] MEDS: ALBUT/IPRATROP 3MG/0.5MG NEB 3 ML VIAL ONE (23:05)
[2024-02-09] MEDS: SODIUM CHLOR 7% 4 ML NEB INH SCH (23:18)
[2024-02-09] MEDS: LORazepam 1 MG TAB PO PRN (23:25)
[2024-02-09] MEDS: traZODone HCL 100 MG TAB PO SCH (23:53)
[2024-02-09] MEDS: SENNA 8.6 MG TAB PO SCH (23:53)
[2024-02-09] MEDS: BENZONATATE 100 MG CAPSULE PO PRN (23:53)
[2024-02-09] MEDS: GABAPENTIN 800 MG TAB PO SCH (23:53)
[2024-02-09] MEDS: RIVAROXABAN 20 MG TAB PO SCH (23:53)
[2024-02-09] MEDS: tiZANidine HCL 4 MG TABLET PO SCH (23:57)
[2024-02-10] MEDS: SODIUM CHLOR 7% 4 ML NEB ONE (05:06)
[2024-02-10] MEDS ORDERED: ALBUT/IPRATROP 3MG/0.5MG NEB 3 ML VIAL NEB PRN (05:14)
[2024-02-10 05:55] LABS: Base Excess VBG 9.1 mEq/L; HCO3 VBG 38 mmol/L; Oxygen Saturation VBG 71.7 %; PCO2 VBG 72 mmHg (38-50); PO2 VBG 43 mmHg; pH VBG 7.33 (7.36-7.41)
[2024-02-10] MEDS ORDERED: methylPREDNISolone 1000 MG/16 ML IV SCH (06:00)
[2024-02-10] MEDS: methylPREDNISolone 40 MG in SYRINGE 0 ML IV SCH (06:11)
[2024-02-10 06:14] LABS: Eosinophils # (auto) 0.01 K/uL (0.00-0.50); Eosinophils % (auto) 0.4 %; Hematocrit (blood only) 37.6 % (37.0-47.0); Immature Granulocytes # (auto) 0.01 K/uL (0.01-0.20); Immature Granulocytes % (auto) 0.4 %; Lymphocytes # (auto) 0.38 K/uL (1.20-3.40); Lymphocytes % (auto) 13.5 %; Mean Corpuscular Hemoglobin 29.6 pg (25.0-34.0); Mean Corpuscular Hgb Conc 31.9 g/dL (32.0-36.0); Mean Corpuscular Volume 92.6 fL (80.0-100.0); Mean Platelet Volume 10.4 fL (9.4-12.4); Monocytes # (auto) 0.04 K/uL (0.11-0.59); Monocytes % (auto) 1.4 %; Neutrophils # (auto) 2.37 K/uL (1.40-6.50); Neutrophils % (auto) 84.3 %; Platelet Count 146 K/uL (130-400); RDW Coefficient of Variation 15.3 % (11.5-14.5); RDW Standard Deviation 52.6 fL (36.4-46.3); Red Blood Count 4.06 M/uL (4.20-5.40); White Blood Count 2.81 K/ul (4.8-10.8)
[2024-02-10 06:34] LABS: INR 1.2 (0.9-1.1); Partial Thromboplastin Ratio 1.3; Partial Thromboplastin Time 35 Seconds (21-31); Prothrombin Time 12.5 Seconds (9.0-12.0)
[2024-02-10] MEDS: ALBUT/IPRATROP 3MG/0.5MG NEB 3 ML VIAL NEB SCH (07:25)
--- NOTE | 2024-02-10 09:06 | Electrocardiogram Report ---
Test Reason : Blood Pressure : */* mmHG Vent. Rate : 97 BPM Atrial Rate : 97 BPM P-R Int : 124 ms QRS Dur : 82 ms QT Int : 346 ms P-R-T Axes : 85 131 78 degrees QTcB Int : 439 ms Poor data quality, interpretation may be adversely affected Normal sinus rhythm Left posterior fascicular block Abnormal ECG When compared with ECG of 10-Jul-2023 11:12, No significant change was found Confirmed by Joe Melendez [id number]) on 02/10/2024 9:05:57 AM Referred By: REFERRED SELF Confirmed By: Joe Melendez
[2024-02-10] MEDS: guaiFENesin 600 MG TABCR PO SCH (09:08)
[2024-02-10] MEDS: ROSUVASTATIN CALCIUM 5 MG TAB PO SCH (09:09)
[2024-02-10] MEDS: GABAPENTIN 600 MG TAB PO SCH (09:09)
[2024-02-10] MEDS: CHOLECALCIFEROL 25 MCG (1000 UNITS) TAB PO SCH (09:10)
[2024-02-10] MEDS: ESCITALOPRAM OXALATE 10 MG TAB PO SCH (09:10)
[2024-02-10] MEDS: UMECLIDINIUM/VILANTEROL 62.5/25MCG 7 PUFFS/INHALER INH SCH (09:11)
[2024-02-10] MEDS: ACETAMINOPHEN 325 MG TAB PO PRN (09:27)
[2024-02-10] MEDS: PANTOprazole 40 MG in SYRINGE 0 ML IV SCH (10:46)
--- NOTE | 2024-02-10 14:52 | Hospitalist Progress Note ---
Date of Service February 10, 2024 Assessment & Plan (1) Acute on chronic respiratory failure with hypoxia: (2) Tobacco use disorder: (3) Adrenal insufficiency: (4) Anxiety and depression: (5) Myofascial pain: (6) Sarcoidosis: (7) History of pulmonary embolism: (8) GERD (gastroesophageal reflux disease): (9) Acute exacerbation of chronic obstructive pulmonary disease: Plan Acute on chronic respiratory failure with hypoxia/COPD exacerbation/sarcoidosis- On ceftriaxone 2 g IV daily and azithromycin 500 mg IV daily On Solu-Medrol 40 mg IV every 8 Patient uses 2 L of oxygen at baseline. Currently on 3 L. Still wheezing. Continue current management. Acute UTI Urine culture growing gram-negative dior Continue ceftriaxone Follow urine culture results Myofascial pain/anxiety and depression- Continue escitalopram, gabapentin, lorazepam, trazodone, and tizanidine History of pulmonary embolism- Continue Xarelto GERD- Continue pantoprazole but changed to IV Hyperlipidemia- Continue rosuvastatin Full code DVT prophylaxis: Continue Xarelto Admission and Anticipated Discharge Date Admission Date: February 09, 2024 Subjective Patient says she feels better overall compared to when she first came to the emergency room. Shortness of breath has improved. Review of Systems Review of Systems: All systems reviewed & are unremarkable except as noted in Subjective Physical Exam Physical Exam: General: Awake, conversant Heart: S1, S2/regular rate and rhythm, no murmur rubs or gallops Lungs: Bilateral wheezing noted. Normal effort Abdomen: Soft/nontender/nondistended. No hepatosplenomegaly Extremities: No clubbing/cyanosis. No edema Behavior: Appropriate, cooperative Results & Data Results & Data Vital Signs (Past 12 Hours) Vital Signs Temp Pulse Pulse Resp BP Pulse Ox O2 Del Method 02/10/24 14:19 88 02/10/24 11:20 36.8 C 96 H 18 102/68 97 Nasal Cannula 02/10/24 11:00 74 18 93 Nasal Cannula 02/10/24 09:49 84 02/10/24 07:48 Nasal Cannula 02/10/24 07:36 36.7 C 97 H 18 115/63 95 Nasal Cannula 02/10/24 07:28 83 17 93 Nasal Cannula O2 Flow Rate 02/10/24 14:19 02/10/24 11:20 5 02/10/24 11:00 4 02/10/24 09:49 08/10/24 07:48 4 02/10/24 07:36 5 02/10/24 07:28 3 Laboratory Results Abnormal lab results 02/09/24 02/09/24 02/10/24 Range/Units 17:00 Unknown 05:49 WBC 2.81 L (4.8-10.8) K/ul RBC 4.06 L (4.20-5.40) M/uL MCHC 31.9 L (32.0-36.0) g/dL RDW Std Deviation 51.5 H 52.6 H (36.4-46.3) fL RDW Coeff of Perry 15.3 H 15.3 H (11.5-14.5) % Lymph # (Auto) 0.38 L (1.20-3.40) K/uL [place] # (Auto) 0.04 L (0.11-0.59) K/uL PT 12.5 H (9.0-12.0) Seconds INR 1.2 H (0.9-1.1) APTT 35 H (21-31) Seconds VBG pH 7.42 H 7.33 L (7.36-7.41) VBG pCO2 62 H 72 H (38-50) mmHg Chloride 96 L (98-107) mmol/L Carbon Dioxide 36 H (21-32) mmol/L Glucose 127 H (70-99(Fasting)) mg/dl Urine Protein Trace H (Negative) Urine Ketones Trace H (Negative) Ur Leukocyte Esterase 2+ H (Negative) Urine WBC (Auto) 21-50 H (0-5) /hpf PG Care Time/CCT Total # of Minutes Spent Total Time Spent with Patient: Total time spent is greater than 50% in coordination of care (as documented) at patient's floor/unit and/or counseling patient: Coding Level of Care Code 35294 SUB INP/OBS CARE 2/35MIN Diagnoses Acute on chronic respiratory failure with hypoxia J96.21 Tobacco use disorder F17.200 Adrenal insufficiency E27.40 Anxiety and depression F41.9; F32.9 Myofascial pain M79.18 Sarcoidosis D86.9 History of pulmonary embolism Z86.711 GERD (gastroesophageal reflux disease) K21.9 Acute exacerbation of chronic obstructive pulmonary disease J44.1
[2024-02-10] MEDS: cefTRIAXone SODIUM 2,000 MG/50 ML BAG IV SCH (19:49)
[2024-02-10] MEDS: AZITHROMYCIN 500 MG in DEXTROSE 5% 250 ML IV SCH (20:38)
[2024-02-10] MEDS ORDERED: ALBUT/IPRATROP 3MG/0.5MG NEB 3 ML VIAL NEB SCH (23:00)
[2024-02-11 06:15] LABS: Basophils # (auto) 0.01 K/uL (0.00-0.20); Basophils % (auto) 0.1 %; Eosinophils # (auto) 0.01 K/uL (0.00-0.50); Eosinophils % (auto) 0.1 %; Hematocrit (blood only) 36.5 % (37.0-47.0); Hemoglobin 11.7 g/dl (12.0-16.0); Immature Granulocytes # (auto) 0.04 K/uL (0.01-0.20); Immature Granulocytes % (auto) 0.3 %; Lymphocytes # (auto) 0.77 K/uL (1.20-3.40); Lymphocytes % (auto) 5.8 %; Mean Corpuscular Hemoglobin 29.9 pg (25.0-34.0); Mean Corpuscular Hgb Conc 32.1 g/dL (32.0-36.0); Mean Corpuscular Volume 93.4 fL (80.0-100.0); Mean Platelet Volume 10.2 fL (9.4-12.4); Monocytes # (auto) 0.58 K/uL (0.11-0.59); Monocytes % (auto) 4.3 %; Neutrophils # (auto) 11.98 K/uL (1.40-6.50); Neutrophils % (auto) 89.4 %; Platelet Count 164 K/uL (130-400); RDW Coefficient of Variation 15.7 % (11.5-14.5); RDW Standard Deviation 53.7 fL (36.4-46.3); Red Blood Count 3.91 M/uL (4.20-5.40); White Blood Count 13.39 K/ul (4.8-10.8)
[2024-02-11 06:28] LABS: Partial Thromboplastin Time 26 Seconds (21-31); Prothrombin Time 11.1 Seconds (9.0-12.0)
--- NOTE | 2024-02-11 15:30 | Hospitalist Progress Note ---
Date of Service February 11, 2024 Assessment & Plan (1) Acute on chronic respiratory failure with hypoxia: (2) Tobacco use disorder: (3) Adrenal insufficiency: (4) Anxiety and depression: (5) Myofascial pain: (6) Sarcoidosis: (7) History of pulmonary embolism: (8) GERD (gastroesophageal reflux disease): (9) Acute exacerbation of chronic obstructive pulmonary disease: Plan Acute on chronic respiratory failure with hypoxia/COPD exacerbation/sarcoidosis- On ceftriaxone 2 g IV daily and azithromycin 500 mg IV daily On Solu-Medrol 40 mg IV every 8 Patient uses 2 L of oxygen at baseline. Currently on 3 L. Still wheezing but improving. Continue current management. Acute UTI Urine culture growing pansensitive E. coli Continue ceftriaxone Myofascial pain/anxiety and depression- Continue escitalopram, gabapentin, lorazepam, trazodone, and tizanidine History of pulmonary embolism- Continue Xarelto GERD- Continue pantoprazole but changed to IV Hyperlipidemia- Continue rosuvastatin Full code DVT prophylaxis: Continue Xarelto Admission and Anticipated Discharge Date Admission Date: February 09, 2024 Subjective Patient feels better from a breathing standpoint. Still little wheezy. Review of Systems Review of Systems: All systems reviewed & are unremarkable except as noted in Subjective Physical Exam Physical Exam: General: Awake, conversant Heart: S1, S2/regular rate and rhythm, no murmur rubs or gallops Lungs: Bilateral wheezing improved. Normal effort Abdomen: Soft/nontender/nondistended. No hepatosplenomegaly Extremities: No clubbing/cyanosis. No edema Behavior: Appropriate, cooperative Results & Data Results & Data Vital Signs (Past 12 Hours) Vital Signs Temp Pulse Pulse Resp BP Pulse Ox O2 Del Method 02/11/24 13:48 86 02/11/24 11:24 36.8 C 85 16 105/64 96 Nasal Cannula 02/11/24 10:34 78 18 94 Nasal Cannula 02/11/24 09:06 95 Nasal Cannula 02/11/24 07:34 85 02/11/24 07:07 36.8 C 89 18 109/66 96 Nasal Cannula 02/11/24 06:58 81 20 96 Nasal Cannula O2 Flow Rate 02/11/24 13:48 02/11/24 11:24 3 02/11/24 10:34 4 02/11/24 09:06 3 02/11/24 07:34 02/11/24 07:07 4 02/11/24 06:58 4 Laboratory Results Abnormal lab results 02/11/24 Range/Units 05:43 WBC 13.39 H D (4.8-10.8) K/ul RBC 3.91 L (4.20-5.40) M/uL Hgb 11.7 L (12.0-16.0) g/dl Hct 36.5 L (37.0-47.0) % RDW Std Deviation 53.7 H (36.4-46.3) fL RDW Coeff of Perry 15.7 H (11.5-14.5) % Neut # (Auto) 11.98 H (1.40-6.50) K/uL Lymph # (Auto) 0.77 L (1.20-3.40) K/uL PG Care Time/CCT Total # of Minutes Spent Total Time Spent with Patient: Total time spent is greater than 50% in coordination of care (as documented) at patient's floor/unit and/or counseling patient: Coding Level of Care Code 79636 SUB INP/OBS CARE 2/35MIN Diagnoses Acute on chronic respiratory failure with hypoxia J96.21 Tobacco use disorder F17.200 Adrenal insufficiency E27.40 Anxiety and depression F41.9; F32.9 Myofascial pain M79.18 Sarcoidosis D86.9 History of pulmonary embolism Z86.711 GERD (gastroesophageal reflux disease) K21.9 Acute exacerbation of chronic obstructive pulmonary disease J44.1
[2024-02-11] MEDS: IBUPROFEN 200 MG TAB PO STA (18:36)
[2024-02-12 06:37] LABS: Basophils # (auto) 0.01 K/uL (0.00-0.20); Basophils % (auto) 0.1 %; Eosinophils # (auto) 0.05 K/uL (0.00-0.50); Eosinophils % (auto) 0.5 %; Hematocrit (blood only) 38.7 % (37.0-47.0); Hemoglobin 12.4 g/dl (12.0-16.0); Immature Granulocytes # (auto) 0.05 K/uL (0.01-0.20); Immature Granulocytes % (auto) 0.5 %; Lymphocytes # (auto) 0.77 K/uL (1.20-3.40); Lymphocytes % (auto) 8.2 %; Mean Corpuscular Hemoglobin 29.7 pg (25.0-34.0); Mean Corpuscular Volume 92.8 fL (80.0-100.0); Mean Platelet Volume 10.5 fL (9.4-12.4); Monocytes # (auto) 0.32 K/uL (0.11-0.59); Monocytes % (auto) 3.4 %; Neutrophils % (auto) 87.3 %; Platelet Count 155 K/uL (130-400); RDW Coefficient of Variation 15.9 % (11.5-14.5); RDW Standard Deviation 53.8 fL (36.4-46.3); Red Blood Count 4.17 M/uL (4.20-5.40)
[2024-02-12 06:58] LABS: Magnesium 2.3 mg/dl (1.7-2.4); Partial Thromboplastin Ratio 0.9; Partial Thromboplastin Time 25 Seconds (21-31)
[2024-02-12] MEDS: methylPREDNISolone 40 MG in SYRINGE 0 ML IV SCH (08:31)
[2024-02-12 09:19] LABS: BUN Creatinine Ratio 35.3 (10-20); Calcium 9.4 mg/dl (8.6-10.3); Creatinine Clr Calc Pharmacy 64.6 ml/min; Est GFR (African American) 103.4 ml/min; Est GFR (Non-African American) 89.2 ml/min; Potassium 4.3 mmol/L (3.5-5.1)
--- NOTE | 2024-02-12 12:46 | Hospitalist Progress Note ---
Date of Service February 12, 2024 Assessment & Plan (1) Acute on chronic respiratory failure with hypoxia: (2) Tobacco use disorder: (3) Adrenal insufficiency: (4) Anxiety and depression: (5) Myofascial pain: (6) Sarcoidosis: (7) History of pulmonary embolism: (8) GERD (gastroesophageal reflux disease): (9) Acute exacerbation of chronic obstructive pulmonary disease: Plan Acute on chronic respiratory failure with hypoxia/COPD exacerbation/sarcoidosis- On ceftriaxone 2 g IV daily and azithromycin 500 mg IV daily On Solu-Medrol 40 mg IV every 8. Reduced to 40 mg IV twice daily today 02/11 Patient uses 2 L of oxygen at baseline. Currently on 3 L. Still wheezing but improving. Continue current management. Acute UTI Urine culture growing pansensitive E. coli Continue ceftriaxone Myofascial pain/anxiety and depression- Continue escitalopram, gabapentin, lorazepam, trazodone, and tizanidine History of pulmonary embolism- Continue Xarelto GERD- Continue pantoprazole but changed to IV Hyperlipidemia- Continue rosuvastatin Full code DVT prophylaxis: Continue Xarelto Admission and Anticipated Discharge Date Admission Date: February 09, 2024 Subjective Patient feels better. Denies chest pain. Breathing improving but not back to baseline yet. Still gets winded with movement. Review of Systems Review of Systems: All systems reviewed & are unremarkable except as noted in Subjective Physical Exam Physical Exam: General: Awake, conversant Heart: S1, S2/regular rate and rhythm, no murmur rubs or gallops Lungs: Bilateral wheezing still present. Normal effort Abdomen: Soft/nontender/nondistended. No hepatosplenomegaly Extremities: No clubbing/cyanosis. No edema Behavior: Appropriate, cooperative Results & Data Results & Data Vital Signs (Past 12 Hours) Vital Signs Temp Pulse Pulse Resp BP Pulse Ox O2 Del Method 02/12/24 11:33 36.4 C L 84 18 100/60 95 Nasal Cannula 02/12/24 10:46 78 18 94 Nasal Cannula 02/12/24 07:54 36.2 C L 81 20 120/70 92 Nasal Cannula 02/12/24 07:51 Nasal Cannula 02/12/24 07:02 78 18 96 Nasal Cannula O2 Flow Rate 02/12/24 11:33 3 02/12/24 10:46 3 02/12/24 07:54 3 08/12/24 07:51 3 02/12/24 07:02 3 Laboratory Results Abnormal lab results 02/12/24 Range/Units 05:45 RBC 4.17 L (4.20-5.40) M/uL RDW Std Deviation 53.8 H (36.4-46.3) fL RDW Coeff of Perry 15.9 H (11.5-14.5) % Neut # (Auto) 8.20 H (1.40-6.50) K/uL Lymph # (Auto) 0.77 L (1.20-3.40) K/uL Carbon Dioxide 33 H (21-32) mmol/L BUN 24 H (6-23) mg/dl BUN/Creatinine Ratio 35.3 H (10-20) Glucose 109 H (70-99(Fasting)) mg/dl PG Care Time/CCT Total # of Minutes Spent Total Time Spent with Patient: Total time spent is greater than 50% in coordination of care (as documented) at patient's floor/unit and/or counseling patient: Coding Level of Care Code 37774 SUB INP/OBS CARE 2/35MIN Diagnoses Acute on chronic respiratory failure with hypoxia J96.21 Tobacco use disorder F17.200 Adrenal insufficiency E27.40 Anxiety and depression F41.9; F32.9 Myofascial pain M79.18 Sarcoidosis D86.9 History of pulmonary embolism Z86.711 GERD (gastroesophageal reflux disease) K21.9 Acute exacerbation of chronic obstructive pulmonary disease J44.1
--- NOTE | 2024-02-13 13:33 | Hospitalist Progress Note ---
Date of Service February 13, 2024 Assessment & Plan (1) Acute on chronic respiratory failure with hypoxia: (2) Tobacco use disorder: (3) Adrenal insufficiency: (4) Anxiety and depression: (5) Myofascial pain: (6) Sarcoidosis: (7) History of pulmonary embolism: (8) GERD (gastroesophageal reflux disease): (9) Acute exacerbation of chronic obstructive pulmonary disease: Plan Acute on chronic respiratory failure with hypoxia/COPD exacerbation/sarcoidosis- On ceftriaxone 2 g IV daily and azithromycin 500 mg IV daily On Solu-Medrol 40 mg IV twice daily since 02/11 Patient uses 2 L of oxygen at baseline. Currently on 3 L. Wheezing improving. Continue current management. Acute UTI Urine culture growing pansensitive E. coli Continue ceftriaxone Myofascial pain/anxiety and depression- Continue escitalopram, gabapentin, lorazepam, trazodone, and tizanidine History of pulmonary embolism- Continue Xarelto GERD- Continue pantoprazole but changed to IV Hyperlipidemia- Continue rosuvastatin Full code DVT prophylaxis: Continue Xarelto Admission and Anticipated Discharge Date Admission Date: February 09, 2024 Subjective Patient is slowly feeling better but not at baseline yet. Still gets winded with minimal exertion. Review of Systems Review of Systems: All systems reviewed & are unremarkable except as noted in Subjective Physical Exam Physical Exam: General: Awake, conversant Heart: S1, S2/regular rate and rhythm, no murmur rubs or gallops Lungs: Bilateral wheezing still present. Normal effort Abdomen: Soft/nontender/nondistended. No hepatosplenomegaly Extremities: No clubbing/cyanosis. No edema Behavior: Appropriate, cooperative Results & Data Results & Data Vital Signs (Past 12 Hours) Vital Signs Temp Pulse Resp BP Pulse Ox O2 Del Method O2 Flow Rate 02/13/24 07:30 86 22 93 Nasal Cannula 3 02/13/24 07:25 Nasal Cannula 3 02/13/24 07:19 36.7 C 78 18 103/60 95 Nasal Cannula 3 PG Care Time/CCT Total # of Minutes Spent Total Time Spent with Patient: Total time spent is greater than 50% in coordination of care (as documented) at patient's floor/unit and/or counseling patient: Coding Level of Care Code 71052 SUB INP/OBS CARE 2/35MIN Diagnoses Acute on chronic respiratory failure with hypoxia J96.21 Tobacco use disorder F17.200 Adrenal insufficiency E27.40 Anxiety and depression F41.9; F32.9 Myofascial pain M79.18 Sarcoidosis D86.9 History of pulmonary embolism Z86.711 GERD (gastroesophageal reflux disease) K21.9 Acute exacerbation of chronic obstructive pulmonary disease J44.1
[2024-02-14] MEDS: methylPREDNISolone 40 MG in SYRINGE 0 ML IV SCH (08:03)
--- NOTE | 2024-02-14 13:08 | Hospitalist Progress Note ---
Date of Service February 14, 2024 Assessment & Plan (1) Acute on chronic respiratory failure with hypoxia: (2) Tobacco use disorder: (3) Adrenal insufficiency: (4) Anxiety and depression: (5) Myofascial pain: (6) Sarcoidosis: (7) History of pulmonary embolism: (8) GERD (gastroesophageal reflux disease): (9) Acute exacerbation of chronic obstructive pulmonary disease: Plan Acute on chronic respiratory failure with hypoxia/COPD exacerbation/sarcoidosis- On ceftriaxone 2 g IV daily and azithromycin 500 mg IV daily On Solu-Medrol 40 mg IV once daily since 02/13 Patient uses 2 L of oxygen at baseline. Currently on 3 L. Wheezing improving. Continue current management. Acute UTI Urine culture growing pansensitive E. coli Continue ceftriaxone Myofascial pain/anxiety and depression- Continue escitalopram, gabapentin, lorazepam, trazodone, and tizanidine History of pulmonary embolism- Continue Xarelto GERD- Continue pantoprazole but changed to IV Hyperlipidemia- Continue rosuvastatin Adrenal insufficiency Spoke to looseleaf binder coverer, Karin Rodriguez, who recommended home dose of hydrocortisone upon discharge along with prednisone taper She will need to follow-up with endocrinology in 2 weeks. Full code DVT prophylaxis: Continue Xarelto Admission and Anticipated Discharge Date Admission Date: February 09, 2024 Subjective Patient feels better overall. Denies chest pain or shortness of breath. Review of Systems Review of Systems: All systems reviewed & are unremarkable except as noted in Subjective Physical Exam Physical Exam: General: Awake, conversant Heart: S1, S2/regular rate and rhythm, no murmur rubs or gallops Lungs: Bilateral wheezing still present, improved. Normal effort Abdomen: Soft/nontender/nondistended. No hepatosplenomegaly Extremities: No clubbing/cyanosis. No edema Behavior: Appropriate, cooperative Results & Data Results & Data Vital Signs (Past 12 Hours) Vital Signs Temp Pulse Pulse Resp BP Pulse Ox O2 Del Method 02/14/24 12:48 36.7 C 83 16 92/60 L 96 Nasal Cannula 02/14/24 10:33 81 21 97 Nasal Cannula 02/14/24 08:06 Nasal Cannula 02/14/24 07:50 36.9 C 76 16 96/52 L 96 Nasal Cannula 02/14/24 07:02 85 19 97 Room Air O2 Flow Rate 02/14/24 12:48 2 02/14/24 10:33 2 02/14/24 08:06 2 02/14/24 07:50 2 02/14/24 07:02 3 PG Care Time/CCT Total # of Minutes Spent Total Time Spent with Patient: Total time spent is greater than 50% in coordination of care (as documented) at patient's floor/unit and/or counseling patient: Coding Level of Care Code 42327 SUB INP/OBS CARE 2/35MIN Diagnoses Acute on chronic respiratory failure with hypoxia J96.21 Tobacco use disorder F17.200 Adrenal insufficiency E27.40 Anxiety and depression F41.9; F32.9 Myofascial pain M79.18 Sarcoidosis D86.9 History of pulmonary embolism Z86.711 GERD (gastroesophageal reflux disease) K21.9 Acute exacerbation of chronic obstructive pulmonary disease J44.1
[2024-02-14] MEDS: tiZANidine HCL 4 MG TABLET PO PRN (20:17)
--- NOTE | 2024-02-15 13:08 | Hospitalist Progress Note ---
Date of Service February 15, 2024 Assessment & Plan (1) Acute on chronic respiratory failure with hypoxia: (2) Tobacco use disorder: (3) Adrenal insufficiency: (4) Anxiety and depression: (5) Myofascial pain: (6) Sarcoidosis: (7) History of pulmonary embolism: (8) GERD (gastroesophageal reflux disease): (9) Acute exacerbation of chronic obstructive pulmonary disease: Plan Acute on chronic respiratory failure with hypoxia/COPD exacerbation/sarcoidosis- On ceftriaxone 2 g IV daily and azithromycin 500 mg IV daily On Solu-Medrol 40 mg IV once daily since 02/13 Switch to p.o. prednisone starting 02/15 Patient uses 2 L of oxygen at baseline. Currently on 3 L. Wheezing improving. Continue current management. Acute UTI Urine culture growing pansensitive E. coli Continue ceftriaxone Myofascial pain/anxiety and depression- Continue escitalopram, gabapentin, lorazepam, trazodone, and tizanidine History of pulmonary embolism- Continue Xarelto GERD- Continue pantoprazole but changed to IV Hyperlipidemia- Continue rosuvastatin Adrenal insufficiency Spoke to hand packager, Karin Rodriguez, who recommended home dose of hydrocortisone upon discharge along with prednisone taper Will resume home dose of Cortef tomorrow 02/15 along with prednisone She will need to follow-up with endocrinology in 2 weeks. Full code DVT prophylaxis: Continue Xarelto Likely discharge tomorrow 02/15 Admission and Anticipated Discharge Date Admission Date: February 09, 2024 Subjective Patient complains of having a "rough day". Still on 2 L of oxygen which is her baseline. Review of Systems Review of Systems: All systems reviewed & are unremarkable except as noted in Subjective Physical Exam Physical Exam: General: Awake, conversant Heart: S1, S2/regular rate and rhythm, no murmur rubs or gallops Lungs: Bilateral wheezing improved. Normal effort Abdomen: Soft/nontender/nondistended. No hepatosplenomegaly Extremities: No clubbing/cyanosis. No edema Behavior: Appropriate, cooperative Results & Data Results & Data Vital Signs (Past 12 Hours) Vital Signs Temp Pulse Resp BP Pulse Ox O2 Del Method O2 Flow Rate 02/15/24 10:49 72 20 94 Nasal Cannula 2 02/15/24 07:56 Nasal Cannula 2 02/15/24 07:30 36.5 C 75 17 96/62 L 95 Nasal Cannula 2 08/15/24 07:06 70 19 95 Nasal Cannula 2 PG Care Time/CCT Total # of Minutes Spent Total Time Spent with Patient: Total time spent is greater than 50% in coordination of care (as documented) at patient's floor/unit and/or counseling patient: Coding Level of Care Code 45378 SUB INP/OBS CARE 2/35MIN Diagnoses Acute on chronic respiratory failure with hypoxia J96.21 Tobacco use disorder F17.200 Adrenal insufficiency E27.40 Anxiety and depression F41.9; F32.9 Myofascial pain M79.18 Sarcoidosis D86.9 History of pulmonary embolism Z86.711 GERD (gastroesophageal reflux disease) K21.9 Acute exacerbation of chronic obstructive pulmonary disease J44.1
[2024-02-15 20:23] VITALS: TEMP 97.9
[2024-02-16 07:54] VITALS: BP 98/56; PULSE 70; RESP 19; O2SAT 94
[2024-02-16] MEDS: HYDROCORTISONE 10 MG TAB PO SCH (07:59)
[2024-02-16] MEDS: predniSONE 20 MG TAB PO SCH (07:59)
--- NOTE | 2024-02-16 09:46 | Discharge Summary ---
Date of Service February 16, 2024 Admission HPI Per Admitting Provider The patient is a 68-year-old female with a past medical history including COPD, adrenal insufficiency, GERD, bronchiectasis, ambulatory dysfunction, hyperlipidemia, thoracic vertebral compression fracture, anxiety and depression, chronic respiratory failure, sarcoidosis, history of pulmonary embolism, and tobacco use disorder. She presents to the emergency department with complaint of worsening shortness of breath, chest tightness and cough productive of thick sputum over the past several days. Upon presentation to the emergency department, she was placed on mask, and then BiPAP, received 2 hour-long DuoNeb treatments, magnesium sulfate, and a dose of lorazepam from the ED. Admission Exam Per Admitting Provider The patient is awake, alert and oriented 3, well developed and well nourished, normocephalic and atraumatic, lying in bed and in mild acute distress. HEENT--PERRL, EOMI, mucous membranes and oropharynx dry. Neck--supple. No JVD. No bruits. Thyroid normal, trachea midline, no adenopathy. Heart--normal S1 and S2. No murmurs, rubs or gallops. Lungs--wheezes bilaterally with coarse breath sounds. Mild Respiratory dis tress, no accessory muscle use after receiving the above treatments from the ED Abdomen--normal bowel sounds and soft. Nontender. Nondistended, no hernias or masses, no organomegaly. Extremities-- No edema. Dermatologic--normal skin turgor, normal color, no abnormal lymph nodes, no rash. Neurologic--cranial nerves II through XII grossly intact. Rheumatologic--normal range of motion. Psychiatric--normal affect. Principal Diagnosis Acute on chronic respiratory failure with hypoxia due to acute exacerbation of COPD Active tobacco abuse Acute uncomplicated E. coli UTI. Treated. Adrenal insufficiency Discharge Exam General: Awake, conversant Heart: S1, S2/regular rate and rhythm, no murmur rubs or gallops Lungs: Bilateral wheezing improved. Normal effort Abdomen: Soft/nontender/nondistended. No hepatosplenomegaly Extremities: No clubbing/cyanosis. No edema Behavior: Appropriate, cooperative Discharge Data Allergies Allergy/AdvReac Type Severity Reaction Status Date / Time No Known Allergies Allergy Verified 01/09/24 08:51 Consultations 02/09/24 18:30 ED Decision to Admit Stat Hospital Course (1) Acute on chronic respiratory failure with hypoxia: (2) Tobacco use disorder: (3) Adrenal insufficiency: (4) Anxiety and depression: (5) Myofascial pain: (6) Sarcoidosis: (7) History of pulmonary embolism: (8) GERD (gastroesophageal reflux disease): (9) Acute exacerbation of chronic obstructive pulmonary disease: Plan Acute on chronic respiratory failure with hypoxia/COPD exacerbation/sarcoidosis- Treated with ceftriaxone 2 g IV daily and azithromycin 500 mg IV daily Treated with Solu-Medrol Switch to p.o. prednisone starting 02/15 Patient uses 2 L of oxygen at baseline. Back to baseline Wheezing improving. Clinically improved Discharged on prednisone tapering dose Acute UTI Urine culture growing pansensitive E. coli Treated with ceftriaxone Myofascial pain/anxiety and depression- Continue escitalopram, gabapentin, lorazepam, trazodone, and tizanidine History of pulmonary embolism- Continue Xarelto GERD- Continue pantoprazole Hyperlipidemia- Continue rosuvastatin Adrenal insufficiency Spoke to fitter placer, Karin Rodriguez, who recommended home dose of hydrocortisone upon discharge along with prednisone taper Resumed home dose of Cortef 02/15 along with prednisone She will need to follow-up with endocrinology in 2 weeks. Discharge to home today Total Time Total Time Spent Total Time Spent (In Minutes): 35 Discharge Plan Discharge Items Patient Disposition: Home - Self-Care Reason For Visit: ACUTE RESP FAILURE WITH HYPOXIA, COPD EXACERBATION Discharge Diagnosis: Acute on chronic respiratory failure with hypoxia due to acute exacerbation of COPD Active tobacco abuse Acute uncomplicated E. coli UTI. Treated. Adrenal insufficiency Activity: Resume your previous activity Non-emergency contact: Primary Care Provider Call non-emergency contact if: you have any medication questions Follow-up/Referrals: Nichole Farfan CRNP [Primary Care Provider] - 02/21/24 11:00 am Karin Rodriguez PA-C [Physician Wash Helper] - Diet: Heart Healthy Addtl Attending Provider Instructions: Advised to follow-up with endocrinology in 1 to 2 weeks Advised to follow-up with PCP in 1 week Pending Studies at Discharge: No Stand-Alone Forms: [employer], Smoking Cessation Medications and DC Order Prescriptions: New prednisone 10 mg tablet 10 mg PO DAILY Qty: 20 0RF Rx Instructions: 4 tabs for 2 days, then drop by 1 tab every 2 days, then stop Continued (DME) Therapist Evaluation for Power Mobility See Rx Instructions .Route .MEDSUPPLY Qty: 1 0RF Rx Instructions: Evaluate patient for necessity of power chair rosuvastatin 5 mg tablet 5 mg PO QAM Qty: 90 3RF (DME) blood pressure monitor Kit See Rx Instructions .Route Qty: 1 0RF Rx Instructions: DIGITAL BLOOD PRESSURE MONITOR FOR UPPER ARM; CHECK DAILY AND PRN ondansetron 4 mg tablet,disintegrating 4 mg PO Q8 PRN (Reason: nausea) Qty: 20 1RF Rx Instructions: Take as needed for nausea sennosides [Senokot] 8.6 mg tablet 8.6 mg PO BID 14 Days Qty: 28 0RF Rx Instructions: Take two times a day to prevent/treat constipation acetaminophen [Tylenol Extra Strength] 500 mg tablet 1,000 mg PO TID 30 Days Qty: 180 0RF Rx Instructions: Take 3 times per day to lessen pain. Anoro Ellipta 62.5-25 mcg/actuation blister with device 1 inh inhalation QAM Qty: 60 5RF gabapentin 600 mg tablet 600 mg PO .QAM & AFTERNOON Qty: 60 5RF trazodone 100 mg tablet 100 mg PO HS Qty: 90 3RF escitalopram oxalate 10 mg tablet 10 mg PO QAM Qty: 90 3RF albuterol sulfate [Ventolin HFA] 90 mcg/actuation HFA aerosol inhaler 2 puff inhalation QID PRN (Reason: Shortness Of Breath Or Wheezing) Qty: 18 11RF lorazepam [Ativan] 1 mg tablet 1 mg PO DAILY PRN (Reason: Anxiety) Qty: 30 2RF gabapentin 800 mg tablet 800 mg PO HS Qty: 30 5RF Pulmicort Flexhaler 90 mcg/actuation aerosol powdr breath activated 2 inh inhalation BID Qty: 1 2RF Xarelto 20 mg tablet 20 mg PO HS Qty: 30 5RF hydrocortisone 5 mg tablet See Rx Instructions PO TID Qty: 150 0RF Rx Instructions: Take 15mg by mouth in the AM (5-6am), then taken 5mg in the afternoon (1- 2pm). In times of illness or severe emotional stress, double or triple the dose. (DME) Power Wheelchair Device See Rx Instructions .Route Qty: 1 0RF Rx Instructions: As directed (DME) Flutter Valve Device See Rx Instructions .ROUTE .MEDSUPPLY Qty: 1 0RF Rx Instructions: QID sodium chloride 7 % solution for nebulization 4 ml inhalation BID 30 Days Qty: 240 3RF albuterol sulfate 2.5 mg /3 mL (0.083 %) solution for nebulization 2.5 mg INHALATION QID PRN (Reason: Shortness Of Breath Or Wheezing) Qty: 270 5RF cholecalciferol (vitamin D3) [Vitamin D3] 25 mcg (1,000 unit) Tablet 25 mcg PO QAM tizanidine 4 mg tablet 4 mg PO BID pantoprazole 40 mg tablet,delayed release (DR/EC) 40 mg PO QAM Discharge Orders: Discharge Order (Routine); Ordered 02/16/24 Ordered By: Juliocesar Rolle/Other Patient Handouts: Understanding Oxygen Therapy, What Is COPD, Resources for Chronic Lung Disease, COPD Quit Smoking Admission Data Admit Date/Time: 02/09/24 20:09 Attending Provider: Juliocesar Medina Admit Provider: Basilio Cary Primary Care Provider: Nichole Farfan Other Providers: Basilio Cary Other Interventions: Discharge Summary Assessment (RN) Last Done: 02/16/24 10:05
[2024-02-16] MEDS ORDERED: HYDROCORTISONE 10 MG TAB PO SCH (21:00)
== END 2024-02-16 11:50 | disposition home or self-care (01) | DRG 189 ==
LOC: ED 16:42 → SUATTDRO 20:09 → 2S 20:09 → 3E 02-11 17:49
DX: D86.9 Sarcoidosis, unspecified; M79.18 Myalgia, other site; Z99.3 Dependence on wheelchair; J96.21 Acute and chronic respiratory failure with hypoxia; E27.40 Unspecified adrenocortical insufficiency; K21.9 Gastro-esophageal reflux disease without esophagitis; E78.5 Hyperlipidemia, unspecified; Z86.711 Personal history of pulmonary embolism; N39.0 Urinary tract infection, site not specified; F17.219 Nicotine dependence, cigarettes, with unspecified nicotine-induced disorders; B96.20 Unspecified Escherichia coli [E. coli] as the cause of diseases classified elsewhere; E86.0 Dehydration; F41.9 Anxiety disorder, unspecified; Z79.01 Long term (current) use of anticoagulants; J44.1 Chronic obstructive pulmonary disease with (acute) exacerbation; F32.A Depression, unspecified

== ENCOUNTER 2024-03-02 16:13 | Inpatient (IN) ==
--- NOTE | 2024-03-02 16:33 | XRay Report ---
XR chest 1V portable CLINICAL HISTORY: Syncope. COMPARISON STUDY: Chest CT March 09, 2023. Chest radiograph February 09, 2024. FINDINGS: There is no pneumothorax. Small right pleural effusion is unchanged. There is no evidence f or pulmonary edema. Cardiac size is normal. Mediastinal contours are stable. Multiple calcified media stinal and bilateral hilar lymph nodes are again noted with irregular bilateral perihilar and upper l obe densities. These remain unchanged. There is underlying emphysema. No consolidation to suggest sup erimposed pneumonia. Right arthroplasty is partially imaged. There is an old right-sided rib fracture . IMPRESSION: 1. No significant change in appearance of the chest. No pneumothorax. No change in a small right pleu ral effusion. 2. Emphysema with chronic parenchymal changes/granulomatous disease. ACT 112: Negative or not required by law. Electronically signed by: Carlos Cunha M.D. 03/02/2024 4:31 PM
[2024-03-02 16:41] LABS: Basophils # (auto) 0.04 K/uL (0.00-0.20); Basophils % (auto) 0.6 %; Eosinophils # (auto) 0.09 K/uL (0.00-0.50); Eosinophils % (auto) 1.3 %; Hematocrit (blood only) 35.7 % (37.0-47.0); Hemoglobin 11.5 g/dl (12.0-16.0); Immature Granulocytes # (auto) 0.02 K/uL (0.01-0.20); Immature Granulocytes % (auto) 0.3 %; Lymphocytes % (auto) 14.2 %; Mean Corpuscular Hemoglobin 29.7 pg (25.0-34.0); Mean Corpuscular Hgb Conc 32.2 g/dL (32.0-36.0); Mean Corpuscular Volume 92.2 fL (80.0-100.0); Monocytes # (auto) 0.47 K/uL (0.11-0.59); Monocytes % (auto) 6.7 %; Neutrophils % (auto) 76.9 %; Platelet Count 129 K/uL (130-400); RDW Coefficient of Variation 15.9 % (11.5-14.5); RDW Standard Deviation 53.8 fL (36.4-46.3); Red Blood Count 3.87 M/uL (4.20-5.40); White Blood Count 7.02 K/ul (4.8-10.8)
--- NOTE | 2024-03-02 16:51 | CT Scan Report ---
CT OF THE HEAD WITHOUT CONTRAST CLINICAL HISTORY: Syncope. COMPARISON STUDY: PET/CT January 23, 2012. TECHNIQUE: Helical axial images of the head were obtained without IV contrast. Automated exposure con trol was utilized for the study. A dose lowering technique was utilized adhering to the principles o f ALARA. FINDINGS: No acute intracranial hemorrhage, midline shift or mass effect is present. The ventricular system is unremarkable. The basal cisterns are patent. No extra-axial collections are present. There are no findings to suggest acute dural sinus thrombosis or acute territorial infarct. No significant calvarial abnormalities are present. Visualized portions of the sinuses and mastoid air cells are kyler ar. IMPRESSION: 1. No acute intracranial findings. 2. No calvarial fractures. ACT 112: Negative or not required by law. Electronically signed by: Carlos Cunha M.D. 03/02/2024 4:49 PM
[2024-03-02 16:53] LABS: Prothrombin Time 11.3 Seconds (9.0-12.0)
--- NOTE | 2024-03-02 16:57 | CT Scan Report ---
CT OF THE CERVICAL SPINE WITHOUT CONTRAST CLINICAL HISTORY: syncope COMPARISON STUDY: Cervical spine MRI February 07, 2023. TECHNIQUE: Helical axial images of the cervical spine were obtained without IV contrast. Sagittal a nd coronal reconstructions were viewed. Automated exposure control was utilized for the study. A do se lowering technique was utilized adhering to the principles of ALARA. FINDINGS: Slight anterolisthesis of C2 on C3 is unchanged since previous MRI and is chronic. Vertebra l body heights are maintained. No acute cervical spine fracture or subluxation is present. There is n o prevertebral edema. Facet joints are intact. Moderate multilevel degenerative disc disease and fac et arthrosis is again noted. Emphysema within the lung apices. IMPRESSION: No acute cervical spine fracture or subluxation. ACT 112: Negative or not required by law. Electronically signed by: Carlos Cunha M.D. 03/02/2024 4:54 PM
--- NOTE | 2024-03-02 17:12 | Emergency Department Note ---
Impression & Plan Syncope and collapse, Fall from standing ED Provider Note HISTORY OF PRESENT ILLNESS: Patient is a 68-year-old female presenting after syncopal episode. Patient reports she was standing in her kitchen preparing dinner when she felt dizzy and attempted to walk to her kitchen table when "everything went black." She reports that he then passed out. Patient was found on the kitchen floor by her . Patient is on Xarelto for history of PEs. Denies any chest pain or shortness of breath prior to the syncope. She was hypotensive with EMS with a blood pressure 78/50 and was given fluids and route. On arrival to the ER, the patient complaining of a diffuse frontal headache. She denies any bowel or bladder incontinence after the syncopal episodes. Denies any abdominal pain, nausea or vomiting. She is unclear of the events leading up to her syncope. She denies any missed doses of her Xarelto. ROS: as above PHYSICAL EXAM: Vitals: See nursing chart. Constitutional: GCS 15. HENT: Head: No external signs of trauma. Mouth/Throat: Midface stable. No malocclusion. Eyes: EOMI. Pupils are 3 mm, round and reactive bilaterally. Nose: No nasal septal hematoma. No gross deformity. Neck: No midline C-spine tenderness. No step-offs. Cardiovascular: RRR. Pulses present in all 4 extremities. Pulmonary/Chest: BS equal bilaterally. No tenderness or ecchymosis. Abdomen: No tenderness or ecchymosis. Musculoskeletal: Pelvis: No instability. Back: No midline tenderness. No step-offs. Extremities: No gross deformities. No TTP. Skin: No laceration. No abrasion. Neuro: No focal neurological deficits. GCS as above. Psych: Normal mood and affect. MDM: - Vitals signs showed tachypnea. Patient was activated a trauma alert prehospital. ABCs intact on arrival. - History obtained via patient. History as above. - Chronic conditions affecting care: HLD; HTN; COPD; sarcoidosis; GERD - Differential diagnoses include, but are not limited to: CVA; intracranial hemorrhage; pneumonia; PE; ACS; dysrhythmia; - Order placed for continuous cardiac monitoring. At this time, monitor showed rate of 74 bpm with normal sinus rhythm, per my interpretation. - External medical records reviewed. Primary care visit note dated 02/20/2024 was reviewed. Patient was seen for an acute exacerbation of COPD and started on prednisone taper. - EKG interpreted by myself showed normal sinus rhythm. Rate 73 bpm. QT 404. No acute ischemic changes. - Laboratory workup interpreted by myself showed normal WBC; anemia (Hgb 11.5); thrombocytopenia (plt 129); normal PT/INR; slight hyponatremia (Na 134); hypocalcemia (Ca 8.1); normal troponin; normal TSH - UA negative for infection - CXR negative for pneumonia, per my interpretation - CT head wo contrast negative for acute pathology - CT cervical spine wo contrast negative for acute pathology - CTA chest negative for PE. Noted to have moderate emphysema - Patient was transition to wearing 2 L nasal cannula, she reports she does wear this at nighttime. Her story sounds very concerning for potential cardiac syncope, given that she had no presyncopal symptoms. Will admit to hospital service for further evaluation. Patient was given a DuoNeb treatment in the emergency department. - Discussion was had with case finishing machine adjuster about patient's case and need for admission - Hospitalist consulted for admission - Patient admitted to [facility]ist service for further evaluation and management. 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 Avascular necrosis of bone of right hip Unintentional weight loss Vitamin D deficiency Right hip pain Pleural effusion Cough Bronchiectasis Other cervical disc degeneration, mid-cervical region, unspecified level Other kyphosis, thoracic region Balance problem Ambulatory dysfunction Dysphagia OLGUIN (dyspnea on exertion) (Acute) Decompensated COPD with exacerbation (chronic obstructive pulmonary disease) Lesion of skin of nose Compression fracture Rib pain Thoracic back pain Hyperlipidemia Thoracic radiculopathy Colon cancer screening Pneumonia (Acute) Hypoxia Back pain Compression fracture of body of thoracic vertebra T6, T7, T8 Cor pulmonale SOB (shortness of breath) Rib pain Back pain Anxiety and depression Osteoporosis Osteoarthritis of left shoulder Chronic obstructive pulmonary disease (Acute) Insomnia Low back pain Postinflammatory pulmonary fibrosis Depression Anxiety Tobacco use disorder Chronic respiratory failure 2 LPM oxygen PRN Follows with [facility] pulmonary COPD (chronic obstructive pulmonary disease) COPD/emphysema Breathing stable per patient Sarcoidosis Follows with [facility] pulmonary (pulmonary ) History of pulmonary embolism 2019: post-op shoulder replacement ~2020: unknown etiology Patient taking Xarelto Osteoporosis Anxiety with depression Medical History Scoliosis Surgical History History of esophagogastroduodenoscopy (EGD) History of lung biopsy History of bronchoscopy Hx of colonoscopy Hx of elbow surgery Right History of hip replacement Left PREETI (09/11/17): SAB x1 at L3-L4 at [facility] Family History Father Myocardial infarction Brother Anxiety COPD (chronic obstructive pulmonary disease) Daughter Anxiety Sister Breast cancer Other Diabetes Kidney disease No family history of adverse response to anesthesia Denies family history of Ovarian cancer Prostate cancer Colorectal cancer Social History (Updated 02/21/24 @ 11:10 by Marline Billings LPN) Smoking Status: Current every day smoker Tobacco Type: Cigarettes Age Started Using Tobacco: 22; packs per day: 0.75; Cigarettes Per Day: 1 ppd (advised on policy); Second Hand Exposure: Yes (in the past); Do You Dip or Chew Tobacco: No; Hx Alcohol Use: No Hx Substance Use: No Preferred Language: Uzbek Communication Ability: Effective Visual Impairment: No Limitations Hearing Ability: Normal Research Lab Assistant Required: No Beliefs That Will Affect Care: None marital status: Current Living Situation: Spouse Current Living Situation Comment: house current occupational status: retired and disabled 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 How many Children do You have: 2 Feels Safe at Home: Yes Childhood Exposure to Second-Hand Smoke: No Diet: regular Dental Care, Regularly: No Physical Activity Frequency: Does not Exercise Seatbelt Use: always Sunscreen Use: No (is not out in the sun much ) Assistive Devices: Oxygen - Continuous Allergies Allergies Allergy/AdvReac Type Severity Reaction Status Date / Time No Known Allergies Allergy Verified 03/02/24 17:17 Home Meds Home Medications Medication Instructions Recorded Confirmed cholecalciferol (vitamin D3) 25 25 mcg PO QAM 07/04/23 03/02/24 mcg (1,000 unit) tablet (Vitamin D3) pantoprazole 40 mg tablet,delayed 40 mg PO QAM 07/04/23 03/02/24 release tizanidine 4 mg tablet 4 mg PO BID muscle spasticity 07/04/23 03/02/24 acetaminophen 500 mg tablet 1,000 mg PO TID PRN pain 03/02/24 03/02/24 (Tylenol Extra Strength) Previous Rx's Medication Instructions Recorded albuterol sulfate 2.5 mg/3 mL 2.5 mg (3 mL) inhalation QID PRN 07/28/21 (0.083 %) solution for nebulization Shortness Of Breath Or Wheezing #270 mL Wheelchair (Powered) (Power #1 ea 01/12/23 Wheelchair) Therapist Evaluation for Power #1 ea 01/30/23 Mobility rosuvastatin 5 mg tablet 5 mg PO QAM #90 tabs 06/12/23 Flutter Valve #1 ea 06/23/23 sodium chloride 7 % for 4 ml inhalation BID 30 days #240 mL 06/23/23 nebulization blood pressure monitor #1 ea 07/11/23 ondansetron 4 mg disintegrating 4 mg PO Q8 PRN nausea #20 tabs 07/15/23 tablet sennosides 8.6 mg tablet (Senokot) 8.6 mg PO BID prevent constipation 07/15/23 14 days #28 tabs umeclidinium 62.5 mcg-vilanterol 1 inh inhalation QAM #60 ea 08/30/23 25 mcg/actuation powdr for inhalation (Anoro Ellipta) gabapentin 600 mg tablet 600 mg PO .QAM & AFTERNOON #60 tabs 09/29/23 trazodone 100 mg tablet 100 mg PO HS #90 tabs 10/11/23 escitalopram oxalate 10 mg tablet 10 mg PO QAM #90 tabs 10/27/23 albuterol sulfate 90 mcg/actuation 2 puff inhalation QID PRN 11/15/23 aerosol inhaler (Ventolin HFA) Shortness Of Breath Or Wheezing #18 grams lorazepam 1 mg tablet (Ativan) 1 mg PO DAILY PRN Anxiety #30 tabs 12/04/23 gabapentin 800 mg tablet 800 mg PO HS #30 tabs 12/13/23 budesonide 90 mcg/actuation breath 2 inh inhalation BID #1 ea 12/18/23 activated powder inhaler (Pulmicort Flexhaler) rivaroxaban 20 mg tablet (Xarelto) 20 mg PO HS #30 tabs 02/01/24 hydrocortisone 5 mg tablet See Rx Instructions PO TID #150 02/02/24 tabs Results & Data (ED) Vital Signs Vital Signs - 24 hr 03/02/24 16:13 03/02/24 16:13 03/02/24 16:25 Temperature 36.8 C 36.8 C Temperature Source Oral Pulse Rate 73 73 70 Pulse Rate [Apical] Pulse Rate from SpO2 Sensor Pulse Rhythm [Apical] Pulse Strength [Bilateral Carotid] Normal Respiratory Rate 20 20 Respiratory Effort / Characteristics Non-Labored Spontaneous Respiratory Depth Normal Respiratory Pattern Regular Blood Pressure 96/57 L 96/57 L Blood Pressure [Right Arm] Blood Pressure Mean 70 Blood Pressure Mean [Right Arm] Blood Pressure Position Semi-fowlers Blood Pressure Position [Right Arm] Pulse Oximetry 93 93 Oxygen Delivery Method Nasal Cannula Nasal Cannula Oxygen Flow Rate 2 2 Sepsis Recent Fever Within 48 Hours No Sepsis New/Unexplained Change in Mental Status No Sepsis Action Taken by Nursing No Action Required 03/02/24 16:27 03/02/24 16:30 03/02/24 16:30 Temperature Temperature Source Pulse Rate 73 74 Pulse Rate [Apical] Pulse Rate from SpO2 Sensor 73 74 Pulse Rhythm [Apical] Pulse Strength [Bilateral Carotid] Respiratory Rate 18 20 Respiratory Effort / Characteristics Respiratory Depth Respiratory Pattern Blood Pressure 96/59 L Blood Pressure [Right Arm] Blood Pressure Mean 64 Blood Pressure Mean [Right Arm] Blood Pressure Position Blood Pressure Position [Right Arm] Pulse Oximetry 92 95 Oxygen Delivery Method Nasal Cannula Nasal Cannula Oxygen Flow Rate 2 3 Sepsis Recent Fever Within 48 Hours Sepsis New/Unexplained Change in Mental Status Sepsis Action Taken by Nursing 03/02/24 16:34 03/02/24 16:48 03/02/24 16:48 Temperature Temperature Source Pulse Rate 73 Pulse Rate [Apical] Pulse Rate from SpO2 Sensor 73 Pulse Rhythm [Apical] Pulse Strength [Bilateral Carotid] Respiratory Rate 26 H Respiratory Effort / Characteristics Respiratory Depth Respiratory Pattern Blood Pressure 103/63 Blood Pressure [Right Arm] Blood Pressure Mean 71 Blood Pressure Mean [Right Arm] Blood Pressure Position Blood Pressure Position [Right Arm] Pulse Oximetry 94 96 Oxygen Delivery Method Nasal Cannula Nasal Cannula Oxygen Flow Rate 2 3 Sepsis Recent Fever Within 48 Hours Sepsis New/Unexplained Change in Mental Status Sepsis Action Taken by Nursing 03/02/24 16:48 03/02/24 17:09 03/02/24 17:27 Temperature Temperature Source Pulse Rate 71 69 Pulse Rate [Apical] Pulse Rate from SpO2 Sensor 71 69 Pulse Rhythm [Apical] Pulse Strength [Bilateral Carotid] Respiratory Rate 20 21 Respiratory Effort / Characteristics Respiratory Depth Respiratory Pattern Blood Pressure 103/63 Blood Pressure [Right Arm] Blood Pressure Mean 71 Blood Pressure Mean [Right Arm] Blood Pressure Position Blood Pressure Position [Right Arm] Pulse Oximetry 98 99 Oxygen Delivery Method Nasal Cannula Nasal Cannula Oxygen Flow Rate 3 3 Sepsis Recent Fever Within 48 Hours Sepsis New/Unexplained Change in Mental Status Sepsis Action Taken by Nursing 03/02/24 17:30 03/02/24 17:33 03/02/24 17:57 Temperature Temperature Source Pulse Rate 67 75 Pulse Rate [Apical] Pulse Rate from SpO2 Sensor 67 75 Pulse Rhythm [Apical] Pulse Strength [Bilateral Carotid] Respiratory Rate 35 H 24 Respiratory Effort / Characteristics Respiratory Depth Respiratory Pattern Blood Pressure 92/61 L Blood Pressure [Right Arm] Blood Pressure Mean 66 Blood Pressure Mean [Right Arm] Blood Pressure Position Blood Pressure Position [Right Arm] Pulse Oximetry 99 96 Oxygen Delivery Method Nasal Cannula Nasal Cannula Oxygen Flow Rate 3 3 Sepsis Recent Fever Within 48 Hours Sepsis New/Unexplained Change in Mental Status Sepsis Action Taken by Nursing 03/02/24 18:01 03/02/24 18:24 03/02/24 18:30 Temperature Temperature Source Pulse Rate 86 79 Pulse Rate [Apical] Pulse Rate from SpO2 Sensor 86 80 Pulse Rhythm [Apical] Pulse Strength [Bilateral Carotid] Respiratory Rate 23 16 Respiratory Effort / Characteristics Respiratory Depth Respiratory Pattern Blood Pressure 103/59 L Blood Pressure [Right Arm] Blood Pressure Mean 65 Blood Pressure Mean [Right Arm] Blood Pressure Position Blood Pressure Position [Right Arm] Pulse Oximetry 95 98 Oxygen Delivery Method Nasal Cannula Nasal Cannula Oxygen Flow Rate 3 3 Sepsis Recent Fever Within 48 Hours Sepsis New/Unexplained Change in Mental Status Sepsis Action Taken by Nursing 03/02/24 19:00 03/02/24 19:30 03/02/24 19:39 Temperature Temperature Source Pulse Rate 73 70 67 Pulse Rate [Apical] Pulse Rate from SpO2 Sensor 73 70 68 Pulse Rhythm [Apical] Pulse Strength [Bilateral Carotid] Respiratory Rate 22 24 20 Respiratory Effort / Characteristics Respiratory Depth Respiratory Pattern Blood Pressure 90/54 L 94/53 L 94/53 L Blood Pressure [Right Arm] Blood Pressure Mean 66 66 66 Blood Pressure Mean [Right Arm] Blood Pressure Position Blood Pressure Position [Right Arm] Pulse Oximetry 97 96 97 Oxygen Delivery Method Oxygen Flow Rate Sepsis Recent Fever Within 48 Hours Sepsis New/Unexplained Change in Mental Status Sepsis Action Taken by Nursing 03/02/24 20:01 03/02/24 20:09 03/02/24 20:25 Temperature Temperature Source Pulse Rate 66 66 Pulse Rate [Apical] 67 Pulse Rate from SpO2 Sensor 66 Pulse Rhythm [Apical] Regular Pulse Strength [Bilateral Carotid] Respiratory Rate 30 H 21 Respiratory Effort / Characteristics Spontaneous Short of Breath Respiratory Depth Respiratory Pattern Regular Tachypnea Blood Pressure 113/69 Blood Pressure [Right Arm] 113/69 Blood Pressure Mean 83 Blood Pressure Mean [Right Arm] 83 Blood Pressure Position Blood Pressure Position [Right Arm] Semi-fowlers Pulse Oximetry 96 97 Oxygen Delivery Method Nasal Cannula Oxygen Flow Rate 2 Sepsis Recent Fever Within 48 Hours Sepsis New/Unexplained Change in Mental Status Sepsis Action Taken by Nursing 03/02/24 20:36 03/02/24 21:00 Temperature Temperature Source Pulse Rate 67 73 Pulse Rate [Apical] Pulse Rate from SpO2 Sensor 67 74 Pulse Rhythm [Apical] Pulse Strength [Bilateral Carotid] Respiratory Rate 24 24 Respiratory Effort / Characteristics Respiratory Depth Respiratory Pattern Blood Pressure 96/57 L Blood Pressure [Right Arm] Blood Pressure Mean 70 Blood Pressure Mean [Right Arm] Blood Pressure Position Blood Pressure Position [Right Arm] Pulse Oximetry 94 95 Oxygen Delivery Method Oxygen Flow Rate Sepsis Recent Fever Within 48 Hours Sepsis New/Unexplained Change in Mental Status Sepsis Action Taken by Nursing Laboratory Data 03/02/24 16:24 03/02/24 16:24 Lab Results 03/02/24 03/02/24 Range/Units 16:24 19:10 WBC 7.02 (4.8-10.8) K/ul RBC 3.87 L (4.20-5.40) M/uL Hgb 11.5 L (12.0-16.0) g/dl Hct 35.7 L (37.0-47.0) % MCV 92.2 (80.0-100.0) fL MCH 29.7 (25.0-34.0) pg MCHC 32.2 (32.0-36.0) g/dL RDW Std Deviation 53.8 H (36.4-46.3) fL RDW Coeff of [place] 15.9 H (11.5-14.5) % Plt Count 129 L (130-400) K/uL MPV 10.0 (9.4-12.4) fL Immature Gran % (Auto) 0.3 % Neut % (Auto) 76.9 % Lymph % (Auto) 14.2 % [place] % (Auto) 6.7 % Eos % (Auto) 1.3 % Baso % (Auto) 0.6 % Neut # (Auto) 5.40 (1.40-6.50) K/uL Lymph # (Auto) 1.00 L (1.20-3.40) K/uL [place] # (Auto) 0.47 (0.11-0.59) K/uL Eos # (Auto) 0.09 (0.00-0.50) K/uL Baso # (Auto) 0.04 (0.00-0.20) K/uL Immature Gran # (Auto) 0.02 (0.01-0.20) K/uL PT 11.3 (9.0-12.0) Seconds INR 1.0 (0.9-1.1) Sodium 141 (136-145) mmol/L Potassium 3.4 L (3.5-5.1) mmol/L Chloride 105 (98-107) mmol/L Carbon Dioxide 30 (21-32) mmol/L Anion Gap 6 (3-11) BUN 13 (6-23) mg/dl Creatinine 0.76 (0.6-1.2) mg/dl Est Cr Clr Drug Dosing 65.1 ml/min Est GFR ( Amer) 92.8 ml/min Est GFR (Non-Af Amer) 80.0 ml/min BUN/Creatinine Ratio 17.1 (10-20) Glucose 100 H (70-99(Fasting)) mg/dl Calcium 8.1 L (8.6-10.3) mg/dl Magnesium 1.8 (1.7-2.4) mg/dl Total Bilirubin 0.9 (0.2-1.0) mg/dl AST 10 L (13-39) U/L ALT 8 (7-52) U/L Alkaline Phosphatase 57 (34-104) U/L Troponin I High Sens 3.9 (0-14) pg/ml Total Protein 5.6 L (6.0-8.3) gm/dl Albumin 3.3 L (3.4-5.0) gm/dl Globulin 2.3 L (2.5-4.0) gm/dl Albumin/Globulin Ratio 1.4 (0.9-2) TSH 1.431 (0.300-4.500) uIu/ml Urine Color Yellow Urine Appearance Clear (Clear) Urine pH 6.0 (4.5-7.5) Ur Specific [place] 1.017 (1.000-1.030) Urine Protein Negative (Negative) Urine Glucose (UA) Negative (Negative) Urine Ketones Negative (Negative) Urine Blood Negative (Negative) Urine Nitrite Negative (Negative) Urine Bilirubin Negative (Negative) Urine Urobilinogen Negative (Negative) Ur Leukocyte Esterase Negative (Negative) Administered Medications Discontinued Medications Albuterol (Albut/Ipratrop 3mg/0.5mg Neb 3 Ml Vial) 3 ml NEB NOW STA; Protocol Stop: 03/02/24 20:09 Last Admin: 03/02/24 20:27 Dose: 3 ml Documented By: DEE Ioversol (Optiray 320 125ml) 118 ml IV ONCE ONE Stop: 03/02/24 19:50 Last Admin: 03/02/24 19:50 Dose: 118 ml Documented By: EDK Imaging Data Radiologist's Impression: Cervical Spine CT 03/02/24 16:19 CT OF THE CERVICAL SPINE WITHOUT CONTRAST CLINICAL HISTORY: syncope COMPARISON STUDY: Cervical spine MRI February 07, 2023. TECHNIQUE: Helical axial images of the cervical spine were obtained without IV contrast. Sagittal and coronal reconstructions were viewed. Automated exposure control was utilized for the study. A dose lowering technique was utilized adhering to the principles of ALARA. FINDINGS: Slight anterolisthesis of C2 on C3 is unchanged since previous MRI and is chronic. Vertebral body heights are maintained. No acute cervical spine fracture or subluxation is present. There is no prevertebral edema. Facet joints are intact. Moderate multilevel degenerative disc disease and facet arthrosis is again noted. Emphysema within the lung apices. IMPRESSION: No acute cervical spine fracture or subluxation. ACT 112: Negative or not required by law. Electronically signed by: Carlos Cunha M.D. 03/02/2024 4:54 PM Chest X-Ray 03/02/24 16:19 XR chest 1V portable CLINICAL HISTORY: Syncope. COMPARISON STUDY: Chest CT March 09, 2023. Chest radiograph February 09, 2024. FINDINGS: There is no pneumothorax. Small right pleural effusion is unchanged. There is no evidence for pulmonary edema. Cardiac size is normal. Mediastinal contours are stable. Multiple calcified mediastinal and bilateral hilar lymph nodes are again noted with irregular bilateral perihilar and upper lobe densities. These remain unchanged. There is underlying emphysema. No consolidation to suggest superimposed pneumonia. Right arthroplasty is partially imaged. There is an old right-sided rib fracture. IMPRESSION: 1. No significant change in appearance of the chest. No pneumothorax. No change in a small right pleural effusion. 2. Emphysema with chronic parenchymal changes/granulomatous disease. ACT 112: Negative or not required by law. Electronically signed by: Carlos Cunha M.D. 03/02/2024 4:[address] 03/02/24 16:19 CT OF THE HEAD WITHOUT CONTRAST CLINICAL HISTORY: Syncope. COMPARISON STUDY: PET/CT January 23, 2012. TECHNIQUE: Helical axial images of the head were obtained without IV contrast. Automated exposure control was utilized for the study. A dose lowering technique was utilized adhering to the principles of ALARA. FINDINGS: No acute intracranial hemorrhage, midline shift or mass effect is present. The ventricular system is unremarkable. The basal cisterns are patent. No extra-axial collections are present. There are no findings to suggest acute dural sinus thrombosis or acute territorial infarct. No significant calvarial abnormalities are present. Visualized portions of the sinuses and mastoid air cells are clear. IMPRESSION: 1. No acute intracranial findings. 2. No calvarial fractures. ACT 112: Negative or not required by law. Electronically signed by: Carlos Cunha M.D. 03/02/2024 4:49 PM Chest CTA 03/02/24 19:33 Exam(s): CTA CHEST IV Amt: OPTIRAY [id number] EXAM: CT Angiography Chest With Intravenous Contrast CLINICAL HISTORY: Reason for exam: PE; syncope. TECHNIQUE: Axial computed tomographic angiography images of the chest with intravenous contrast. CTDI is 21.42 mGy and DLP is 716.4 mGy-cm. Automated exposure control was utilized for the study. A dose lowering technique was utilized adhering to the principles of ALARA. MIP reconstructed images were created and reviewed. COMPARISON: March 09, 2023 FINDINGS: Pulmonary arteries: The pulmonary arterial tree is well opacified with contrast. No pulmonary embolism is identified. Aorta: The thoracic aorta is slightly ectatic with the aortic root measuring 4 cm. The remainder of the aorta is nondilated. There is no dissection. Lungs: See below. Pleural space: Small right pleural effusion layering posteriorly measuring 1.7 cm. No pneumothorax. Heart: Mild dilation of the right heart. No pericardial effusion is seen. No cardiomegaly. Bones/joints: Previous right shoulder arthroplasty. Moderate multilevel degenerative changes throughout the spine. No acute fracture or subluxation is seen. Soft tissues: Unremarkable. Lymph nodes: Moderate emphysema throughout both lungs, greatest in the upper lobes. There are numerous calcified lymph nodes and granulomas in the mediastinum and hilar region bilaterally including an approximately 3 cm left perihilar consolidation which is stable to slightly decreased in size compared to previous, most consistent with scarring. Vascular and interstitial markings are greater than previous suggesting mild pulmonary edema superimposed upon emphysema. IMPRESSION: 1. The thoracic aorta is slightly ectatic with the aortic root measuring 4 cm. The remainder of the aorta is nondilated. There is no dissection. 2. Moderate emphysema throughout both lungs, greatest in the upper lobes. There are numerous calcified lymph nodes and granulomas in the mediastinum and hilar region bilaterally including an approximately 3 cm left perihilar consolidation which is stable to slightly decreased in size compared to previous, most consistent with scarring. Vascular and interstitial markings are greater than previous suggesting mild pulmonary edema superimposed upon emphysema. 3. The pulmonary arterial tree is well opacified with contrast. No pulmonary embolism is identified. 4. Mild dilation of the right heart. No pericardial effusion is seen. Electronically signed by: Dylan Kelley MD 03/02/24 20:37 PM Discharge Plan Visit Data Chief Complaint: Trauma Stated Complaint: SYNCOPE ED Provider: Carleen Sylvester Discharge Problem: Syncope and collapse, Fall from standing Forms Stand Alone Forms: My [employer] Prescriptions Prescriptions: No Action (DME) Therapist Evaluation for Power Mobility See Rx Instructions .Route .MEDSUPPLY Qty: 1 0RF Rx Instructions: Evaluate patient for necessity of power chair rosuvastatin 5 mg tablet 5 mg PO QAM Qty: 90 3RF (DME) blood pressure monitor Kit See Rx Instructions .Route Qty: 1 0RF Rx Instructions: DIGITAL BLOOD PRESSURE MONITOR FOR UPPER ARM; CHECK DAILY AND PRN ondansetron 4 mg tablet,disintegrating 4 mg PO Q8 PRN (Reason: nausea) Qty: 20 1RF Rx Instructions: Take as needed for nausea sennosides [Senokot] 8.6 mg tablet 8.6 mg PO BID 14 Days Qty: 28 0RF Rx Instructions: Take two times a day to prevent/treat constipation Anoro Ellipta 62.5-25 mcg/actuation blister with device 1 inh inhalation QAM Qty: 60 5RF gabapentin 600 mg tablet 600 mg PO .QAM & AFTERNOON Qty: 60 5RF trazodone 100 mg tablet 100 mg PO HS Qty: 90 3RF escitalopram oxalate 10 mg tablet 10 mg PO QAM Qty: 90 3RF albuterol sulfate [Ventolin HFA] 90 mcg/actuation HFA aerosol inhaler 2 puff inhalation QID PRN (Reason: Shortness Of Breath Or Wheezing) Qty: 18 11RF lorazepam [Ativan] 1 mg tablet 1 mg PO DAILY PRN (Reason: Anxiety) Qty: 30 2RF gabapentin 800 mg tablet 800 mg PO HS Qty: 30 5RF Pulmicort Flexhaler 90 mcg/actuation aerosol powdr breath activated 2 inh inhalation BID Qty: 1 2RF Xarelto 20 mg tablet 20 mg PO HS Qty: 30 5RF hydrocortisone 5 mg tablet See Rx Instructions PO TID Qty: 150 0RF Rx Instructions: Take 15mg by mouth in the AM (5-6am), then taken 5mg in the afternoon (1- 2pm). In times of illness or severe emotional stress, double or triple the dose. (DME) Power Wheelchair Device See Rx Instructions .Route Qty: 1 0RF Rx Instructions: As directed (DME) Flutter Valve Device See Rx Instructions .ROUTE .MEDSUPPLY Qty: 1 0RF Rx Instructions: QID sodium chloride 7 % solution for nebulization 4 ml inhalation BID 30 Days Qty: 240 3RF albuterol sulfate 2.5 mg /3 mL (0.083 %) solution for nebulization 2.5 mg INHALATION QID PRN (Reason: Shortness Of Breath Or Wheezing) Qty: 270 5RF cholecalciferol (vitamin D3) [Vitamin D3] 25 mcg (1,000 unit) Tablet 25 mcg PO QAM tizanidine 4 mg tablet 4 mg PO BID pantoprazole 40 mg tablet,delayed release (DR/EC) 40 mg PO QAM acetaminophen [Tylenol Extra Strength] 500 mg tablet 1,000 mg PO TID PRN (Reason: pain) Referrals Referrals: Nichole Farfan CRNP [Primary Care Provider] -
[2024-03-02 17:14] LABS: Troponin I High Sensitivity 3.9 pg/ml (0-14)
[2024-03-02 17:23] LABS: Thyroid Stimulating Hormone 1.431 uIu/ml (0.300-4.500)
[2024-03-02 17:48] LABS: Albumin Level 3.3 gm/dl (3.4-5.0); Bilirubin,Total 0.9 mg/dl (0.2-1.0); Calcium 8.1 mg/dl (8.6-10.3); Magnesium 1.8 mg/dl (1.7-2.4); Potassium 3.4 mmol/L (3.5-5.1)
[2024-03-02 17:54] LABS: Albumin Globulin Ratio 1.4 (0.9-2); BUN Creatinine Ratio 17.1 (10-20); Creatinine Clr Calc Pharmacy 65.1 ml/min; Est GFR (African American) 92.8 ml/min; Globulin 2.3 gm/dl (2.5-4.0); Total Protein 5.6 gm/dl (6.0-8.3)
[2024-03-02] MEDS: OPTIRAY 320 125ml IV ONE (19:50)
[2024-03-02] MEDS: ALBUT/IPRATROP 3MG/0.5MG NEB 3 ML VIAL NEB STA (20:27)
--- NOTE | 2024-03-02 20:38 | CT Scan Report ---
Exam(s): CTA CHEST IV Amt: OPTIRAY 320 118ML EXAM: CT Angiography Chest With Intravenous Contrast CLINICAL HISTORY: Reason for exam: PE; syncope. TECHNIQUE: Axial computed tomographic angiography images of the chest with intravenous contrast. CTDI is 21.42 mGy and DLP is 716.4 mGy-cm. Automated exposure control was utilized for the study. A dose lowering technique was utilized adhering to the principles of ALARA. MIP reconstructed images were created and reviewed. COMPARISON: March 09, 2023 FINDINGS: Pulmonary arteries: The pulmonary arterial tree is well opacified with contrast. No pulmonary embolism is identified. Aorta: The thoracic aorta is slightly ectatic with the aortic root measuring 4 cm. The remainder of the aorta is nondilated. There is no dissection. Lungs: See below. Pleural space: Small right pleural effusion layering posteriorly measuring 1.7 cm. No pneumothorax. Heart: Mild dilation of the right heart. No pericardial effusion is seen. No cardiomegaly. Bones/joints: Previous right shoulder arthroplasty. Moderate multilevel degenerative changes throughout the spine. No acute fracture or subluxation is seen. Soft tissues: Unremarkable. Lymph nodes: Moderate emphysema throughout both lungs, greatest in the upper lobes. There are numerous calcified lymph nodes and granulomas in the mediastinum and hilar region bilaterally including an approximately 3 cm left perihilar consolidation which is stable to slightly decreased in size compared to previous, most consistent with scarring. Vascular and interstitial markings are greater than previous suggesting mild pulmonary edema superimposed upon emphysema. IMPRESSION: 1. The thoracic aorta is slightly ectatic with the aortic root measuring 4 cm. The remainder of the aorta is nondilated. There is no dissection. 2. Moderate emphysema throughout both lungs, greatest in the upper lobes. There are numerous calcified lymph nodes and granulomas in the mediastinum and hilar region bilaterally including an approximately 3 cm left perihilar consolidation which is stable to slightly decreased in size compared to previous, most consistent with scarring. Vascular and interstitial markings are greater than previous suggesting mild pulmonary edema superimposed upon emphysema. 3. The pulmonary arterial tree is well opacified with contrast. No pulmonary embolism is identified. 4. Mild dilation of the right heart. No pericardial effusion is seen. Electronically signed by: Dylan Kelley MD 03/02/24 20:37 PM
[2024-03-02 20:49] LABS: Appearance Urine Clear (Clear); Bilirubin Urine Negative (Negative); Blood Urine Negative (Negative); Color Urine Yellow; Glucose Urine UA Negative (Negative); Ketones Urine Negative (Negative); Leukocyte Esterase Urine Negative (Negative); Nitrite Urine Negative (Negative); Protein Urine Negative (Negative); Specific Gravity Urine 1.017 (1.000-1.030); Urobilinogen Urine Negative (Negative)
--- NOTE | 2024-03-02 20:59 | History & Physical Report ---
Date of Service March 02, 2024 Assessment & Plan (1) Episode of syncope: Plan: Unwitnessed syncopal episode on 03/02 around 1400 Patient was in the kitchen cooking at the time and reports that she "blacked out"; no dizziness/lightheadedness prior to syncope She is unsure if she lost full consciousness, and reports she was only down for a few seconds No head strike Head/cervical spine imaging without acute abnormalities H/o syncopal episode back in July 2023, but did not seek medical attention at this time Echocardiogram ordered, pending Orthostatic vitals ordered, pending Multifactorial: May be secondary to adrenal insufficiency, dehydration, and mixing of her home medications Suspect there is also a component of orthostasis Hold gabapentin, escitalopram, lorazepam, and trazodone Continuous telemetry monitoring A.m. CBC, BMP, Mag (2) Adrenal insufficiency: Plan: Patient takes hydrocortisone at home She recently completed a prednisone taper Random cortisol level ordered, pending Hydrocortisone 100 mg IV x 1 given in the ED Continue hydrocortisone 50 mg IV q6h for now (3) Hypotension: Plan: Not currently on antihypertensive medications ? Secondary to #2 (4) Chronic respiratory failure: Plan: Supplemental oxygen at baseline (2L NC as needed) Titrate supplemental oxygen Continuous pulse oximetry (5) COPD (chronic obstructive pulmonary disease): Plan: Emphysema noted on chest CTA; no PE or aortic dissection Continue home inhalers (6) Acute dehydration: Plan: Gentle IVF with LR at 80mL/hr x 1 L (7) Anxiety and depression: Plan Disposition: Admit to [facility] telemetry Full code Regular diet VTE PPx: On Xarelto History of Present Illness Chief Complaint: Syncopal episode Primary Care Provider: CLAY Michele Karine is a 68-year-old female with PMH of anxiety, depression, DVT/PE (on Xarelto), osteoporosis, sarcoidosis, decompensated COPD, chronic respiratory failure, tobacco use, cor pulmonale, GERD, and adrenal insufficiency. She presented via EMS on 03/02 for a syncopal episode. She was standing in the kitchen cooking around 1400 when she reports that she suddenly "blacked out". She reports that she felt fine prior to this. Just before blacking out, she reached for the door handle and then ended up on her rear end. She is not sure if she lost full consciousness, and was only down for a few seconds. No head strike, per patient. This was an unwitnessed event, as her was in the other room. Immediately after the event, she said she felt hot, and was feeling sick. On EMS arrival, BP was noted to be 78/50. She does have a prior instance of syncope in July; in the setting of her hip replacement. No history of seizures or stroke; she reports her did not witness any seizure-like activity when he came in the room. No history of NE or CHF to her knowledge. No sick contacts. She does use supplemental oxygen as needed (2L NC). No CPAP at night. No recent injuries to the head or neck. She took her regular morning medicines today. Of note, she believes she might of switched up her gabapentin dosage. Normally she takes gabapentin 600 mg in the morning and afternoon, and 800 mg at night. She thinks she might have taken gabapentin 1200 mg this morning, and then an additional 800 this afternoon around 2 PM when she passed out. History of DVT/PE (on Xarelto). Patient is a current tobacco cigarette smoker; 1 PPD (she declines nicotine patch on admission). No recent alcohol use. Patient wears supplemental oxygen as needed (2L NC). Patient is tachypneic at 30 RPM at time of admission; SpO2 96% on 2 LNC. ED course: DuoNeb 3 mL ROS: Patient endorses urinary incontinence x 2 episodes (with last being last night), headache, blurry vision, SOB both at rest and with exertion, orthopnea, chest tightness, cough, and neuropathy in the hands and feet. Patient denies fever, chills, night sweats, dizziness/lightheadedness prior to passing out, loss of vision, neck pain or stiffness, chest pain, pleuritic CP, N/V/D, burning with urination, blood in the urine or stool, or saddle anesthesia. Allergies Allergy/AdvReac Type Severity Reaction Status Date / Time No Known Allergies Allergy Verified 03/02/24 17:17 Home Medications Medication Instructions Recorded Confirmed Type albuterol sulfate 2.5 mg/3 mL 2.5 mg (3 mL) inhalation QID PRN 07/28/21 03/02/24 Rx (0.083 %) solution for nebulization Shortness Of Breath Or Wheezing #270 mL Wheelchair (Powered) (Power #1 ea 01/12/23 02/21/24 Rx Wheelchair) Therapist Evaluation for Power #1 ea 01/30/23 02/21/24 Rx Mobility rosuvastatin 5 mg tablet 5 mg PO QAM #90 tabs 06/12/23 03/02/24 Rx Flutter Valve #1 ea 06/23/23 02/21/24 Rx sodium chloride 7 % for 4 ml inhalation BID 30 days #240 mL 06/23/23 03/02/24 Rx nebulization cholecalciferol (vitamin D3) 25 25 mcg PO QAM 07/04/23 03/02/24 History mcg (1,000 unit) tablet (Vitamin D3) pantoprazole 40 mg tablet,delayed 40 mg PO QAM 07/04/23 03/02/24 History release tizanidine 4 mg tablet 4 mg PO BID muscle spasticity 07/04/23 03/02/24 History blood pressure monitor #1 ea 07/11/23 02/21/24 Rx ondansetron 4 mg disintegrating 4 mg PO Q8 PRN nausea #20 tabs 07/15/23 03/02/24 Rx tablet sennosides 8.6 mg tablet (Senokot) 8.6 mg PO BID prevent constipation 07/15/23 03/02/24 Rx 14 days #28 tabs umeclidinium 62.5 mcg-vilanterol 1 inh inhalation QAM #60 ea 08/30/23 03/02/24 Rx 25 mcg/actuation powdr for inhalation (Anoro Ellipta) gabapentin 600 mg tablet 600 mg PO .QAM & AFTERNOON #60 tabs 09/29/23 03/02/24 Rx trazodone 100 mg tablet 100 mg PO HS #90 tabs 10/11/23 03/02/24 Rx escitalopram oxalate 10 mg tablet 10 mg PO QAM #90 tabs 10/27/23 03/02/24 Rx albuterol sulfate 90 mcg/actuation 2 puff inhalation QID PRN 11/15/23 03/02/24 Rx aerosol inhaler (Ventolin HFA) Shortness Of Breath Or Wheezing #18 grams lorazepam 1 mg tablet (Ativan) 1 mg PO DAILY PRN Anxiety #30 tabs 12/04/23 03/02/24 Rx gabapentin 800 mg tablet 800 mg PO HS #30 tabs 12/13/23 03/02/24 Rx budesonide 90 mcg/actuation breath 2 inh inhalation BID #1 ea 12/18/23 03/02/24 Rx activated powder inhaler (Pulmicort Flexhaler) rivaroxaban 20 mg tablet (Xarelto) 20 mg PO HS #30 tabs 02/01/24 03/02/24 Rx hydrocortisone 5 mg tablet See Rx Instructions PO TID #150 02/02/24 03/02/24 Rx tabs acetaminophen 500 mg tablet 1,000 mg PO TID PRN pain 03/02/24 03/02/24 History (Tylenol Extra Strength) Past Med/Surg History Problem List (Updated 03/02/24 @ 21:34 by Zack Salinas PA-C) Episode of syncope Acute dehydration (Acute) Acute dyspnea (Acute) Acute exacerbation of chronic obstructive pulmonary disease (Acute) Myofascial pain Adrenal insufficiency GERD (gastroesophageal reflux disease) Hypotension Chronic pain 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 Avascular necrosis of bone of right hip Unintentional weight loss Vitamin D deficiency Right hip pain Pleural effusion Cough Bronchiectasis Other cervical disc degeneration, mid-cervical region, unspecified level Other kyphosis, thoracic region Balance problem Ambulatory dysfunction Dysphagia OLGUIN (dyspnea on exertion) (Acute) Decompensated COPD with exacerbation (chronic obstructive pulmonary disease) Lesion of skin of nose Compression fracture Rib pain Thoracic back pain Hyperlipidemia Thoracic radiculopathy Colon cancer screening Pneumonia (Acute) Hypoxia Back pain Compression fracture of body of thoracic vertebra T6, T7, T8 Cor pulmonale SOB (shortness of breath) Rib pain Back pain Anxiety and depression Osteoporosis Osteoarthritis of left shoulder Chronic obstructive pulmonary disease (Acute) Insomnia Low back pain Postinflammatory pulmonary fibrosis Depression Anxiety Tobacco use disorder Chronic respiratory failure 2 LPM oxygen PRN Follows with [facility] pulmonary COPD (chronic obstructive pulmonary disease) COPD/emphysema Breathing stable per patient Sarcoidosis Follows with [facility] pulmonary (pulmonary ) History of pulmonary embolism 2019: post-op shoulder replacement ~2020: unknown etiology Patient taking Xarelto Osteoporosis Anxiety with depression Medical History Scoliosis Surgical History History of esophagogastroduodenoscopy (EGD) History of lung biopsy History of bronchoscopy Hx of colonoscopy Hx of elbow surgery Right History of hip replacement Left PREETI (09/11/17): SAB x1 at L3-L4 at [facility] Family History Father Myocardial infarction Brother Anxiety COPD (chronic obstructive pulmonary disease) Daughter Anxiety Sister Breast cancer Other Diabetes Kidney disease No family history of adverse response to anesthesia Denies family history of Ovarian cancer Prostate cancer Colorectal cancer Social History (Updated 02/21/24 @ 11:10 by Marline Billings LPN) Smoking Status: Current every day smoker Tobacco Type: Cigarettes Age Started Using Tobacco: 22; packs per day: 0.75; Cigarettes Per Day: 1 ppd (advised on policy); Second Hand Exposure: Yes (in the past); Do You Dip or Chew Tobacco: No; Hx Alcohol Use: No Hx Substance Use: No Preferred Language: French Communication Ability: Effective Visual Impairment: No Limitations Hearing Ability: Normal Quill Collector Required: No Beliefs That Will Affect Care: None marital status: Current Living Situation: Spouse Current Living Situation Comment: house current occupational status: retired and disabled 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 How many Children do You have: 2 Other Information That Helps Us Care for You: No Feels Safe at Home: Yes Safety Concerns: Feels Safe At This Time Childhood Exposure to Second-Hand Smoke: No Diet: regular Dental Care, Regularly: No Physical Activity Frequency: Does not Exercise Seatbelt Use: always Sunscreen Use: No (is not out in the sun much ) Assistive Devices: Oxygen - Continuous Review of Systems Review of Systems: See HPI above Physical Exam Physical Exam: General: no acute distress; dazed; lethargic; pleasant affect; frail appearing; cooperative; SpO2 95% on 2L NC HEENT: normocephalic, atraumatic; no scleral icterus; PERRLA; vision and hearing grossly intact Neck: supple; no lymphadenopathy; trachea midline; patient demonstrates ability to shrug shoulders against resistance and rotate neck left and right without deficits Skin: warm, dry without signs of tenting; no cyanosis; no rashes, bruising, lesions, or erythema noted CV: chest wall NTP; RRR; S1/S2 normal; no murmurs/rubs/gallops; pulses intact and symmetric at radial, DP, and PT Lungs: no acute respiratory distress; symmetrical chest wall expansion; clear breath sounds across all lung khan w/o adventitious sounds; no wheezing ABD: Soft, NTP; BS present; no rebound/guarding; no distention MSK: no tics or fasciculations; no edema noted in the LEs b/l, nonerythematous Neuro: A&Ox3; normal mood and affect; fluent speech; no focal deficits; sensation grossly intact in the LEs b/l Results & Data Results & Data Vital Signs (Past 12 Hours) Vital Signs Temp Pulse Pulse Resp BP BP Pulse Ox 03/02/24 20:25 66 03/02/24 20:01 67 30 H 113/69 96 03/02/24 19:30 70 24 94/53 L 96 03/02/24 19:00 73 22 90/54 L 97 03/02/24 18:30 79 16 98 03/02/24 18:24 86 23 95 03/02/24 18:01 103/59 L 03/02/24 17:57 75 24 96 03/02/24 17:33 67 35 H 99 03/02/24 17:30 92/61 L 03/02/24 17:27 69 21 99 03/02/24 17:09 71 20 98 03/02/24 16:48 103/63 03/02/24 16:48 103/63 03/02/24 16:48 73 26 H 96 03/02/24 16:34 94 03/02/24 16:30 74 20 95 03/02/24 16:30 96/59 L 03/02/24 16:27 73 18 92 03/02/24 16:25 70 03/02/24 16:13 36.8 C 73 20 96/57 L 93 03/02/24 16:13 36.8 C 73 20 96/57 L 93 O2 Del Method O2 Flow Rate 03/02/24 20:25 03/02/24 20:01 Nasal Cannula 2 03/02/24 19:30 03/02/24 19:00 03/02/24 18:30 Nasal Cannula 3 03/02/24 18:24 Nasal Cannula 3 03/02/24 18:01 03/02/24 17:57 Nasal Cannula 3 03/02/24 17:33 Nasal Cannula 3 03/02/24 17:30 03/02/24 17:27 Nasal Cannula 3 03/02/24 17:09 Nasal Cannula 3 03/02/24 16:48 03/02/24 16:48 03/02/24 16:48 Nasal Cannula 3 03/02/24 16:34 Nasal Cannula 2 03/02/24 16:30 Nasal Cannula 3 03/02/24 16:30 03/02/24 16:27 Nasal Cannula 2 03/02/24 16:25 03/02/24 16:13 Nasal Cannula 2 03/02/24 16:13 Nasal Cannula 2 Laboratory Results Abnormal lab results 03/02/24 Range/Units 16:24 RBC 3.87 L (4.20-5.40) M/uL Hgb 11.5 L (12.0-16.0) g/dl Hct 35.7 L (37.0-47.0) % RDW Std Deviation 53.8 H (36.4-46.3) fL RDW Coeff of Perry 15.9 H (11.5-14.5) % Plt Count 129 L (130-400) K/uL Lymph # (Auto) 1.00 L (1.20-3.40) K/uL Potassium 3.4 L (3.5-5.1) mmol/L Glucose 100 H (70-99(Fasting)) mg/dl Calcium 8.1 L (8.6-10.3) mg/dl AST 10 L (13-39) U/L Total Protein 5.6 L (6.0-8.3) gm/dl Albumin 3.3 L (3.4-5.0) gm/dl Globulin 2.3 L (2.5-4.0) gm/dl Diagnostic Findings Cervical Spine CT 03/02/24 16:19 CT OF THE CERVICAL SPINE WITHOUT CONTRAST CLINICAL HISTORY: syncope COMPARISON STUDY: Cervical spine MRI February 07, 2023. TECHNIQUE: Helical axial images of the cervical spine were obtained without IV contrast. Sagittal and coronal reconstructions were viewed. Automated exposure control was utilized for the study. A dose lowering technique was utilized adhering to the principles of ALARA. FINDINGS: Slight anterolisthesis of C2 on C3 is unchanged since previous MRI and is chronic. Vertebral body heights are maintained. No acute cervical spine fr acture or subluxation is present. There is no prevertebral edema. Facet joints are intact. Moderate multilevel degenerative disc disease and facet arthrosis is again noted. Emphysema within the lung apices. IMPRESSION: No acute cervical spine fracture or subluxation. ACT 112: Negative or not required by law. Electronically signed by: Carlos Cunha M.D. 03/02/2024 4:54 PM Chest X-Ray 03/02/24 16:19 XR chest 1V portable CLINICAL HISTORY: Syncope. COMPARISON STUDY: Chest CT March 09, 2023. Chest radiograph February 09, 2024. FINDINGS: There is no pneumothorax. Small right pleural effusion is unchanged. There is no evidence for pulmonary edema. Cardiac size is normal. Mediastinal contours are stable. Multiple calcified mediastinal and bilateral hilar lymph nodes are again noted with irregular bilateral perihilar and upper lobe densities. These remain unchanged. There is underlying emphysema. No consolidation to suggest superimposed pneumonia. Right arthroplasty is partially imaged. There is an old right-sided rib fracture. IMPRESSION: 1. No significant change in appearance of the chest. No pneumothorax. No change in a small right pleural effusion. 2. Emphysema with chronic parenchymal changes/granulomatous disease. ACT 112: Negative or not required by law. Electronically signed by: Carlos Cunha M.D. 03/02/2024 4:[address] 03/02/24 16:19 CT OF THE HEAD WITHOUT CONTRAST CLINICAL HISTORY: Syncope. COMPARISON STUDY: PET/CT January 23, 2012. TECHNIQUE: Helical axial images of the head were obtained without IV contrast. Automated exposure control was utilized for the study. A dose lowering technique was utilized adhering to the principles of ALARA. FINDINGS: No acute intracranial hemorrhage, midline shift or mass effect is present. The ventricular system is unremarkable. The basal cisterns are patent. No extra-axial collections are present. There are no findings to suggest acute dural sinus thrombosis or acute territorial infarct. No significant calvarial abnormalities are present. Visualized portions of the sinuses and mastoid air cells are clear. IMPRESSION: 1. No acute intracranial findings. 2. No calvarial fractures. ACT 112: Negative or not required by law. Electronically signed by: Carlos Cunha M.D. 03/02/2024 4:49 PM Chest CTA 03/02/24 19:33 Exam(s): CTA CHEST IV Amt: OPTIRAY [id number] EXAM: CT Angiography Chest With Intravenous Contrast CLINICAL HISTORY: Reason for exam: PE; syncope. TECHNIQUE: Axial computed tomographic angiography images of the chest with intravenous contrast. CTDI is 21.42 mGy and DLP is 716.4 mGy-cm. Automated exposure control was utilized for the study. A dose lowering technique was utilized adhering to the principles of ALARA. MIP reconstructed images were created and reviewed. COMPARISON: March 09, 2023 FINDINGS: Pulmonary arteries: The pulmonary arterial tree is well opacified with contrast. No pulmonary embolism is identified. Aorta: The thoracic aorta is slightly ectatic with the aortic root measuring 4 cm. The remainder of the aorta is nondilated. There is no dissection. Lungs: See below. Pleural space: Small right pleural effusion layering posteriorly measuring 1.7 cm. No pneumothorax. Heart: Mild dilation of the right heart. No pericardial effusion is seen. No cardiomegaly. Bones/joints: Previous right shoulder arthroplasty. Moderate multilevel degenerative changes throughout the spine. No acute fracture or subluxation is seen. Soft tissues: Unremarkable. Lymph nodes: Moderate emphysema throughout both lungs, greatest in the upper lobes. There are numerous calcified lymph nodes and granulomas in the mediastinum and hilar region bilaterally including an approximately 3 cm left perihilar consolidation which is stable to slightly decreased in size compared to previous, most consistent with scarring. Vascular and interstitial markings are greater than previous suggesting mild pulmonary edema superimposed upon emphysema. IMPRESSION: 1. The thoracic aorta is slightly ectatic with the aortic root measuring 4 cm. The remainder of the aorta is nondilated. There is no dissection. 2. Moderate emphysema throughout both lungs, greatest in the upper lobes. There are numerous calcified lymph nodes and granulomas in the mediastinum and hilar region bilaterally including an approximately 3 cm left perihilar consolidation which is stable to slightly decreased in size compared to previous, most consistent with scarring. Vascular and interstitial markings are greater than previous suggesting mild pulmonary edema superimposed upon emphysema. 3. The pulmonary arterial tree is well opacified with contrast. No pulmonary embolism is identified. 4. Mild dilation of the right heart. No pericardial effusion is seen. Electronically signed by: Dylan Kelley MD 03/02/24 20:37 PM ECG Additional Comments: ECG revealed NSR at 73 bpm; QTc 445 Code Status & VTE Plan Code Status Full code VTE Prophylaxis Plan VTE Prophylaxis will be ordered: Yes Supervising Physician Co-Signing Physician Notes Attending addendum: I have physically seen this patient, have supervised the ALVARADO's activities, and agree with the H&P unless as otherwise noted. Assessment and Plan: Syncopal episode- Patient reports that she was having her usual day, then had an unwitnessed syncopal episode while she was in the kitchen preparing dinner, and she blacked out completely. The episode lasted a few seconds She did not hit her head CT scan head without contrast was negative CT scan cervical spine was negative CTA chest showed aortic root 4 cm with a chronic 3 cm left perihilar consolidation and questionable mild pulmonary edema The patient will be admitted to telemetry for serial cardiac enzymes, serial EKG's, cardiac rhythm monitoring and a 2-D echocardiogram with Dopplers. Symptoms most suggestive of adrenal insufficiency Will hold medications including gabapentin, escitalopram, lorazepam and trazodone, which could contribute to orthostatic hypotension Adrenal insufficiency- Patient had just completed a course of prednisone following admission to the hospital from 02/08-02/16/2024 Placed on hydrocortisone 100 mg IV now, then 50 mg IV every 6 hours Chronic respiratory failure/severe COPD/postinflammatory pulmonary fibrosis/sarcoidosis- Continue usual inhalers, including Arnuity Ellipta and Anoro Ellipta Albuterol nebulizers 4 times daily as needed will be available History of pulmonary embolism- Continue Xarelto PG Care Time/CCT Total # of Minutes Spent Total Time Spent with Patient: Total time spent is greater than 50% in coordination of care (as documented) at patient's floor/unit and/or counseling patient: Coding [place] [address] INT INP/OBS CARE 3/75MIN Patient Type Established Medical Decision Making High Complexity Diagnoses Episode of syncope R55 Adrenal insufficiency E27.40 Hypotension I95.9 Chronic respiratory failure J96.10 Pulmonary emphysema, unspecified emphysema type J43.9 COPD type: emphysema Emphysema type: unspecified Acute dehydration E86.0 Anxiety and depression F41.9; F32.9 (5) COPD (chronic obstructive pulmonary disease) COPD type: emphysema Emphysema type: unspecified Qualified Code(s): J43.9 - Emphysema, unspecified
[2024-03-02] MEDS: HYDROCORTISONE SOD SUCCINATE 100 MG/2 ML VIAL IV STA (22:42)
[2024-03-02] MEDS: LACTATED RINGER'S 1,000 ML IV STA (22:42)
[2024-03-02] MEDS ORDERED: ALBUTEROL HFA 8 GM INHALER INH PRN (23:58)
[2024-03-02] MEDS ORDERED: ACETAMINOPHEN 325 MG TAB PO PRN (23:58)
[2024-03-02] MEDS ORDERED: ALBUTEROL 0.083% NEBU SOLN 3 ML VIAL INH PRN (23:58)
[2024-03-03] MEDS: RIVAROXABAN 20 MG TAB PO ONE (01:10)
[2024-03-03] MEDS: traZODone HCL 100 MG TAB PO STA (01:22)
[2024-03-03] MEDS: MELATONIN 3 MG TAB PO PRN (01:22)
[2024-03-03] MEDS ORDERED: HYDROCORTISONE SOD SUCCINATE 100 MG/2 ML VIAL IV SCH (05:00)
[2024-03-03] MEDS: HYDROCORTISONE SOD 50 MG in SYRINGE 0 ML IV SCH (06:12)
[2024-03-03 06:58] LABS: Basophils # (auto) 0.02 K/uL (0.00-0.20); Basophils % (auto) 0.4 %; Eosinophils # (auto) 0.01 K/uL (0.00-0.50); Eosinophils % (auto) 0.2 %; Hematocrit (blood only) 36.7 % (37.0-47.0); Hemoglobin 11.8 g/dl (12.0-16.0); Immature Granulocytes # (auto) 0.01 K/uL (0.01-0.20); Immature Granulocytes % (auto) 0.2 %; Lymphocytes # (auto) 0.88 K/uL (1.20-3.40); Lymphocytes % (auto) 17.2 %; Mean Corpuscular Hemoglobin 29.5 pg (25.0-34.0); Mean Corpuscular Hgb Conc 32.2 g/dL (32.0-36.0); Mean Corpuscular Volume 91.8 fL (80.0-100.0); Mean Platelet Volume 10.5 fL (9.4-12.4); Monocytes # (auto) 0.13 K/uL (0.11-0.59); Monocytes % (auto) 2.5 %; Neutrophils # (auto) 4.06 K/uL (1.40-6.50); Neutrophils % (auto) 79.5 %; Platelet Count 149 K/uL (130-400); RDW Coefficient of Variation 15.8 % (11.5-14.5); RDW Standard Deviation 52.8 fL (36.4-46.3); White Blood Count 5.11 K/ul (4.8-10.8)
--- NOTE | 2024-03-03 07:22 | Electrocardiogram Report ---
Test Reason : Blood Pressure : */* mmHG Vent. Rate : 73 BPM Atrial Rate : 73 BPM P-R Int : 132 ms QRS Dur : 90 ms QT Int : 404 ms P-R-T Axes : 78 92 68 degrees QTcB Int : 445 ms Normal sinus rhythm Rightward axis Borderline ECG When compared with ECG of 09-Feb-2024 16:58, Left posterior fascicular block is no longer Present Confirmed by Colin Ceron [id number]) on 03/03/2024 7:22:18 AM Referred By: REFERRED SELF Confirmed By: Colin Ceron
[2024-03-03 07:29] LABS: BUN Creatinine Ratio 15.3 (10-20); Calcium 8.5 mg/dl (8.6-10.3); Est GFR (Non-African American) 85.4 ml/min; Magnesium 1.9 mg/dl (1.7-2.4); Potassium 4.3 mmol/L (3.5-5.1)
[2024-03-03] MEDS: SODIUM CHLOR 7% 4 ML NEB INH SCH (07:31)
[2024-03-03] MEDS: SENNA 8.6 MG TAB PO SCH (07:52)
[2024-03-03] MEDS: ROSUVASTATIN CALCIUM 5 MG TAB PO SCH (07:52)
[2024-03-03] MEDS: UMECLIDINIUM/VILANTEROL 62.5/25MCG 7 PUFFS/INHALER INH SCH (07:52)
[2024-03-03] MEDS: PANTOprazole 40 MG TAB PO SCH (07:52)
[2024-03-03] MEDS: FLUTICASONE FUROATE 200MCG 14 PUFFS/INHALER INH SCH (07:53)
--- NOTE | 2024-03-03 11:59 | Hospitalist Progress Note ---
Date of Service March 03, 2024 Assessment & Plan (1) Episode of syncope: (2) Acute dehydration: (3) Adrenal insufficiency: (4) GERD (gastroesophageal reflux disease): (5) Hypotension: (6) Chronic pain: (7) Tobacco use disorder: (8) Chronic obstructive pulmonary disease: Plan Patient is a 68-year-old female with PMH of anxiety, depression, DVT/PE (on Xarelto), osteoporosis, sarcoidosis, decompensated COPD, chronic respiratory failure, tobacco use, cor pulmonale, GERD, and adrenal insufficiency who was admitted due to syncope. Syncope Hypotension // Adrenal Insufficiency - Patient with syncopal episode at home that was preceded by darkening vision but no other symptoms - BP at the time of EMS arrival was 78/50 - CT brain and of c-spine unremarkable; CTA w/o PE, noting emphysematous changes - TTE pending - Uses Gabapentin at home due to chronic pain States she believes she took 1200 mg yesterday morning and 800 mg the night prior - Orthostatics negative - Imaging clear and make CVA unlikely - States that her BP was also low before starting her home hydrocortisone a few months ago; follows [facility] Has been taking hydrocortisone as prescribed s/p Hydrocortisone 100 mg IV x1 - BP and sxs improved after fluids and Hydrocortisone IV administration - Etiology unclear, but given BP at time of EMS arrival make hypotension plus Gabapentin as a possible cause Hypotension may be consequence of adrenal insufficiency versus hypovolemia - Will stop IV Hydrocortisone and resume home regimen, and will stop fluids given improvement. If BP decreases with this, likely initial presentation came from adrenal insufficiency and not hypovolemia COPD w/ current tobacco use - Continue home inhalers - Discussed smoking cessation given COPD diagnosis - States she does not need nicotine patches Hx of DVT/PE - Continue Xarelto Dispo: Discharge back home once stable and cause for syncope identified/managed Diet: Regular VTE ppx: Xarelto Code status: FULL Admission and Anticipated Discharge Date Admission Date: March 02, 2024 Supervising Physician Co-Signing Physician Notes I personally examined the patient and verified all patel points of history and exam, discussed case, and agree with decision making with Dr Mccall feeling okay. Has not gotten around that much yetis little dizzy. Vitals noted, in general she is awake and alert pleasant no distress. HEENT normocephalic atraumatic mucous membranes moist. Breathing unlabored no accessory muscle use good effort. Skin without rashes pallor or icterus. Neuro without focal deficits. Syncopefavor dehydration over adrenal insufficiencyhard to rule out 1 versus the other at this point. Reduce her steroids back to her home dosing and ambulateif she has recurrence of lightheaded or weakness with this, then she may require higher dosing of steroids, if she does not, it is most likely that she was simply dehydratedit does sound like she does not drink a lot of fluids at home, and she may need to log her water intake to reach goal. Otherwise as above. Subjective Patient found to be sitting on bedside chair and eating breakfast. States she feels better today. No fevers or other systemic sxs. Physical Exam Physical Exam: General: AAOx3, afebrile, calm, NAD CV: RRR, NO r/m/g PULM: normal respiratory effort, no respiratory distress, NC in place Extre: no swelling or obvious deformities in b/l LE Results & Data Results & Data Vital Signs (Past 12 Hours) Vital Signs Temp Pulse Pulse Resp BP Pulse Ox O2 Del Method 03/03/24 11:38 36.8 C 69 20 111/73 94 Nasal Cannula 03/03/24 07:50 Nasal Cannula 03/03/24 07:50 36.6 C 72 20 113/70 93 Nasal Cannula 03/03/24 07:34 72 18 94 Nasal Cannula 03/03/24 07:20 68 03/03/24 04:21 36.8 C 71 16 95/56 L 95 Nasal Cannula 03/03/24 00:00 Nasal Cannula O2 Flow Rate 03/03/24 11:38 1.5 03/03/24 07:50 2 03/03/24 07:50 1.5 03/03/24 07:34 1.5 03/03/24 07:20 03/03/24 04:21 2 03/03/24 00:00 2 Resident Activity Tracking Resident Involvement: Resident Care Provided Care Provided: Adult Hospital Medicine (8) Chronic obstructive pulmonary disease COPD type: unspecified COPD Qualified Code(s): J44.9 - Chronic obstructive pulmonary disease, unspecified
--- NOTE | 2024-03-03 14:25 | XCELERA ---
[id number] \\[id number]
[2024-03-03] MEDS: ACETAMINOPHEN 500 MG TAB PO SCH (15:43)
--- NOTE | 2024-03-03 17:16 | Billing Data ---
Date of Service March 03, 2024 Coding Level of Care Code 54669 SUB INP/OBS CARE
[2024-03-03] MEDS: GABAPENTIN 300 MG CAP PO PRN (18:18)
[2024-03-03] MEDS: RIVAROXABAN 20 MG TAB PO SCH (21:24)
[2024-03-03] MEDS: traZODone HCL 100 MG TAB PO SCH (21:25)
[2024-03-03 23:07] VITALS: RESP 18
[2024-03-04] MEDS: HYDROCORTISONE 10 MG TAB PO SCH ×2 (05:03→14:48)
[2024-03-04 06:45] LABS: Basophils # (auto) 0.04 K/uL (0.00-0.20); Basophils % (auto) 0.8 %; Eosinophils # (auto) 0.29 K/uL (0.00-0.50); Eosinophils % (auto) 5.9 %; Hematocrit (blood only) 33.8 % (37.0-47.0); Hemoglobin 11.3 g/dl (12.0-16.0); Immature Granulocytes # (auto) 0.01 K/uL (0.01-0.20); Immature Granulocytes % (auto) 0.2 %; Lymphocytes # (auto) 1.86 K/uL (1.20-3.40); Lymphocytes % (auto) 38.1 %; Mean Corpuscular Hemoglobin 29.9 pg (25.0-34.0); Mean Corpuscular Hgb Conc 33.4 g/dL (32.0-36.0); Mean Corpuscular Volume 89.4 fL (80.0-100.0); Mean Platelet Volume 9.9 fL (9.4-12.4); Monocytes # (auto) 0.44 K/uL (0.11-0.59); Neutrophils # (auto) 2.24 K/uL (1.40-6.50); Platelet Count 138 K/uL (130-400); RDW Coefficient of Variation 15.4 % (11.5-14.5); RDW Standard Deviation 51.2 fL (36.4-46.3); Red Blood Count 3.78 M/uL (4.20-5.40); White Blood Count 4.88 K/ul (4.8-10.8)
[2024-03-04 06:51] LABS: BUN Creatinine Ratio 24.3 (10-20); Calcium 8.5 mg/dl (8.6-10.3); Creatinine Clr Calc Pharmacy 59.4 ml/min; Est GFR (African American) 95.8 ml/min; Est GFR (Non-African American) 82.7 ml/min; Potassium 3.6 mmol/L (3.5-5.1)
--- NOTE | 2024-03-04 06:51 | Hospitalist Progress Note ---
Date of Service March 04, 2024 Assessment & Plan (1) Episode of syncope: (2) Acute dehydration: (3) Adrenal insufficiency: (4) GERD (gastroesophageal reflux disease): (5) Hypotension: (6) Chronic pain: (7) Tobacco use disorder: (8) Chronic obstructive pulmonary disease: Plan Patient is a 68-year-old female with PMH of anxiety, depression, DVT/PE (on Xarelto), osteoporosis, sarcoidosis, decompensated COPD, chronic respiratory failure, tobacco use, cor pulmonale, GERD, and adrenal insufficiency who was admitted due to syncope. Syncope Hypotension // Adrenal Insufficiency - Patient with syncopal episode at home that was preceded by darkening vision but no other symptoms - BP at the time of EMS arrival was 78/50 - CT brain and of c-spine unremarkable; CTA w/o PE, noting emphysematous changes - TTE pending - Uses Gabapentin at home due to chronic pain States she believes she took 1200 mg yesterday morning and 800 mg the night prior - Orthostatics negative - Imaging clear and make CVA unlikely - States that her BP was also low before starting her home hydrocortisone a few months ago; follows [facility] Endocrinology Has been taking hydrocortisone as prescribed s/p Hydrocortisone 100 mg IV x1 - BP and sxs improved after fluids and Hydrocortisone IV administration - Etiology unclear, but given BP at time of EMS arrival make hypotension plus Gabapentin as a possible cause Hypotension may be consequence of adrenal insufficiency versus hypovolemia - Will stop IV Hydrocortisone and resume home regimen, and will stop fluids given improvement. If BP decreases with this, likely initial presentation came from adrenal insufficiency and not hypovolemia COPD w/ current tobacco use - Continue home inhalers - Discussed smoking cessation given COPD diagnosis - States she does not need nicotine patches Hx of DVT/PE - Continue Xarelto Dispo: Discharge back home once stable and cause for syncope identified/managed Diet: Regular VTE ppx: Xarelto Code status: FULL Admission and Anticipated Discharge Date Admission Date: March 02, 2024 Subjective Pt is a [] yo [] with a past medical history of [] who presents to the hospital on [] for []. Review of Systems Review of Systems: Per HPI. Physical Exam Physical Exam: General:Alert and oriented, no acute distress, [] HEENT: Normocephalic, moist oral mucosa, Cardio: Regular rate and rhythm, no murmur, Resp:Lungs clear to auscultation b/l, no wheezes or rhonchi, GI: Soft and nontender, nondistended, bowel sounds active Skin: Warm, pink, dry, Psych: Mood-affect congruence. Results & Data Results & Data Vital Signs (Past 12 Hours) Vital Signs Temp Pulse Pulse Resp BP Pulse Ox O2 Del Method 03/04/24 02:37 36.8 C 65 18 104/70 96 Nasal Cannula 03/03/24 23:06 37 C 69 18 108/61 95 Nasal Cannula 03/03/24 22:09 68 03/03/24 21:20 Nasal Cannula 03/03/24 20:07 36.9 C 73 20 113/71 92 Nasal Cannula O2 Flow Rate 03/04/24 02:37 03/03/24 23:06 03/03/24 22:09 03/03/24 21:20 2 03/03/24 20:07 2 (8) Chronic obstructive pulmonary disease COPD type: unspecified COPD Qualified Code(s): J44.9 - Chronic obstructive pulmonary disease, unspecified
[2024-03-04 11:34] VITALS: TEMP 98.8; O2SAT 97
--- NOTE | 2024-03-04 13:57 | Discharge Summary ---
Date of Service March 04, 2024 Admission HPI Per Admitting Provider Karine is a 68-year-old female with PMH of anxiety, depression, DVT/PE (on Xarelto), osteoporosis, sarcoidosis, decompensated COPD, chronic respiratory failure, tobacco use, cor pulmonale, GERD, and adrenal insufficiency. She presented via EMS on 03/02 for a syncopal episode. She was standing in the kitchen cooking around 1400 when she reports that she suddenly "blacked out". She reports that she felt fine prior to this. Just before blacking out, she reached for the door handle and then ended up on her rear end. She is not sure if she lost full consciousness, and was only down for a few seconds. No head strike, per patient. This was an unwitnessed event, as her was in the other room. Immediately after the event, she said she felt hot, and was feeling sick. On EMS arrival, BP was noted to be 78/50. She does have a prior instance of syncope in July; in the setting of her hip replacement. No history of seizures or stroke; she reports her did not witness any seizure-like activity when he came in the room. No history of IA or CHF to her knowledge. No sick contacts. She does use supplemental oxygen as needed (2L NC). No CPAP at night. No recent injuries to the head or neck. She took her regular morning medicines today. Of note, she believes she might of switched up her gabapentin dosage. Normally she takes gabapentin 600 mg in the morning and afternoon, and 800 mg at night. She thinks she might have taken gabapentin 1200 mg this morning, and then an additional 800 this afternoon around 2 PM when she passed out. History of DVT/PE (on Xarelto). Patient is a current tobacco cigarette smoker; 1 PPD (she declines nicotine patch on admission). No recent alcohol use. Patient wears supplemental oxygen as needed (2L NC). Patient is tachypneic at 30 RPM at time of admission; SpO2 96% on 2 LNC. ED course: DuoNeb 3 mL ROS: Patient endorses urinary incontinence x 2 episodes (with last being last night), headache, blurry vision, SOB both at rest and with exertion, orthopnea, chest tightness, cough, and neuropathy in the hands and feet. Patient denies fever, chills, night sweats, dizziness/lightheadedness prior to passing out, loss of vision, neck pain or stiffness, chest pain, pleuritic CP, N/V/D, burning with urination, blood in the urine or stool, or saddle anesthesia. Admission Exam Per Admitting Provider General: no acute distress; dazed; lethargic; pleasant affect; frail appearing; cooperative; SpO2 95% on 2L NC HEENT: normocephalic, atraumatic; no scleral icterus; PERRLA; vision and hearing grossly intact Neck: supple; no lymphadenopathy; trachea midline; patient demonstrates ability to shrug shoulders against resistance and rotate neck left and right without deficits Skin: warm, dry without signs of tenting; no cyanosis; no rashes, bruising, lesions, or erythema noted CV: chest wall NTP; RRR; S1/S2 normal; no murmurs/rubs/gallops; pulses intact and symmetric at radial, DP, and PT Lungs: no acute respiratory distress; symmetrical chest wall expansion; clear breath sounds across all lung khan w/o adventitious sounds; no wheezing ABD: Soft, NTP; BS present; no rebound/guarding; no distention MSK: no tics or fasciculations; no edema noted in the LEs b/l, nonerythematous Neuro: A&Ox3; normal mood and affect; fluent speech; no focal deficits; sensatio n grossly intact in the LEs b/l Principal Diagnosis Syncope Discharge Exam General:Alert and oriented, no acute distress, HEENT: Normocephalic, Cardio: Regular rate and rhythm, no murmur, Resp:Lungs clear to auscultation b/l, no wheezes or rhonchi, GI: Soft and nontender Skin: Warm, pink, dry, Discharge Data Allergies Allergy/AdvReac Type Severity Reaction Status Date / Time No Known Allergies Allergy Verified 03/02/24 17:17 Consultations 03/02/24 20:33 ED Decision to Admit Stat 03/02/24 20:45 ED Decision to Admit Stat Ordered Studies 03/02/24 16:19 CT cervical spine wo con Stat CT head/brain wo con Stat 03/02/24 19:33 CT for pulmonary embolism PE [CT angio chest PE protocol] Stat Hospital Course (1) Episode of syncope: (2) Acute dehydration: (3) Adrenal insufficiency: (4) GERD (gastroesophageal reflux disease): (5) Hypotension: (6) Chronic pain: (7) Tobacco use disorder: (8) Chronic obstructive pulmonary disease: Plan Patient is a 68-year-old female with PMH of anxiety, depression, DVT/PE (on Xarelto), osteoporosis, sarcoidosis, decompensated COPD, chronic respiratory failure, tobacco use, cor pulmonale, GERD, and adrenal insufficiency who was admitted due to syncope. Syncope Hypotension due to hypovolemia vs Adrenal Insufficiency - Patient with syncopal episode at home that was preceded by darkening vision but no other symptoms - BP at the time of EMS arrival was 78/50 - CT brain and of c-spine unremarkable; CTA w/o PE, noting emphysematous changes - TTE 55-60% with normal ventricular function, orthostatics negative - States that her BP was also low before starting her home hydrocortisone a few months ago; [place] [facility], has been taking her hydrocortisone as prescribed - BP and sxs improved after fluids and Hydrocortisone IV administration - pt does also note she uses Gabapentin at home due to chronic pain States she believes she took 1200 mg yesterday morning and 800 mg the night prior, thinks she took the doses too close to one another as she did feel a bit drowsy prior - Etiology not entirely clear, but given BP at time of EMS arrival make hypotension plus Gabapentin as a possible cause Hypotension likely a consequence of adrenal insufficiency <<< hypovolemia - advised pt to hydrate well to help with her hypotension Chronic pain - decreased home gabapentin regime to 300 mg BID, to continue on discharge Total Time Total Time Spent Total Time Spent (In Minutes): 25 minutes Discharge Plan Discharge Items Patient Disposition: Home - Self-Care Reason For Visit: SYNCOPE Discharge Diagnosis: Syncope Activity: As commented below Activity Comment: As tolerated. Non-emergency contact: Primary Care Provider and Specialist Call non-emergency contact if: you have any medication questions and your symptoms worsen Follow-up/Referrals: Nichole Farfan CRNP [Primary Care Provider] - 03/13/24 2:00 pm Diet: Regular Addtl Attending Provider Instructions: You were admitted to the hospital for an episode of passing out (also called syncope). We did scans of your brain and an ultrasound of your heart, which turned out okay. We believe that your episode of syncope was most likely due to hypotension (low blood pressure) which was most likely due to dehydration. While your adrenal insufficiency can also cause low blood pressure, you have been stable with your medications for awhile and had no real symptoms prior to passing out, and it sounds like you have not been sick lately or had anything else in your life change. Ideally, people should aim to drink about 60-80 ounces of noncaffeinated drinks a day (caffeinated drinks do not count since they make you have to pee, and thus sort of equal out in the end as not adding volume). If you have a history of low blood pressures, you may find that drinks with salt and electrolytes, like Gatorade, may help you more since salt can help our body retain this fluid in our blood circulation a bit better. As we also discussed, your home medication Gabapentin, while does not make people pass out, can make people drowsy and more likely to fall. Because of this, we will continue you on the dosing of gabapentin we have had you on during your stay here, which is 300 mg twice daily. A new script for this has been sent to your pharmacy, please take only this script and not the scripts that you have for higher doses. You will continue to take your steroid hydrocortisone as you did prior to coming into the hospital, and talk to your business case analyst if you feel that regime needs to be changed so that they can help you make any changes. Please plan to follow-up with your primary care provider in the next few days. You will have to call to make this appointment. Pending Studies at Discharge: No Stand-Alone Forms: [facility], Smoking Cessation Medications and DC Order Prescriptions: New gabapentin 300 mg Capsule 300 mg PO BID Qty: 60 1RF Continued (DME) Therapist Evaluation for Power Mobility See Rx Instructions .Route .MEDSUPPLY Qty: 1 0RF Rx Instructions: Evaluate patient for necessity of power chair rosuvastatin 5 mg tablet 5 mg PO QAM Qty: 90 3RF (DME) blood pressure monitor Kit See Rx Instructions .Route Qty: 1 0RF Rx Instructions: DIGITAL BLOOD PRESSURE MONITOR FOR UPPER ARM; CHECK DAILY AND PRN ondansetron 4 mg tablet,disintegrating 4 mg PO Q8 PRN (Reason: nausea) Qty: 20 1RF Rx Instructions: Take as needed for nausea sennosides [Senokot] 8.6 mg tablet 8.6 mg PO BID 14 Days Qty: 28 0RF Rx Instructions: Take two times a day to prevent/treat constipation Anoro Ellipta 62.5-25 mcg/actuation blister with device 1 inh inhalation QAM Qty: 60 5RF trazodone 100 mg tablet 100 mg PO HS Qty: 90 3RF escitalopram oxalate 10 mg tablet 10 mg PO QAM Qty: 90 3RF albuterol sulfate [Ventolin HFA] 90 mcg/actuation HFA aerosol inhaler 2 puff inhalation QID PRN (Reason: Shortness Of Breath Or Wheezing) Qty: 18 11RF lorazepam [Ativan] 1 mg tablet 1 mg PO DAILY PRN (Reason: Anxiety) Qty: 30 2RF Pulmicort Flexhaler 90 mcg/actuation aerosol powdr breath activated 2 inh inhalation BID Qty: 1 2RF Xarelto 20 mg tablet 20 mg PO HS Qty: 30 5RF hydrocortisone 5 mg tablet See Rx Instructions PO TID Qty: 150 0RF Rx Instructions: Take 15mg by mouth in the AM (5-6am), then taken 5mg in the afternoon (1- 2pm). In times of illness or severe emotional stress, double or triple the dose. (DME) Power Wheelchair Device See Rx Instructions .Route Qty: 1 0RF Rx Instructions: As directed (DME) Flutter Valve Device See Rx Instructions .ROUTE .MEDSUPPLY Qty: 1 0RF Rx Instructions: QID sodium chloride 7 % solution for nebulization 4 ml inhalation BID 30 Days Qty: 240 3RF albuterol sulfate 2.5 mg /3 mL (0.083 %) solution for nebulization 2.5 mg INHALATION QID PRN (Reason: Shortness Of Breath Or Wheezing) Qty: 270 5RF cholecalciferol (vitamin D3) [Vitamin D3] 25 mcg (1,000 unit) Tablet 25 mcg PO QAM tizanidine 4 mg tablet 4 mg PO BID pantoprazole 40 mg tablet,delayed release (DR/EC) 40 mg PO QAM acetaminophen [Tylenol Extra Strength] 500 mg tablet 1,000 mg PO TID PRN (Reason: pain) Discontinued gabapentin 600 mg tablet 600 mg PO .QAM & AFTERNOON Qty: 60 5RF gabapentin 800 mg tablet 800 mg PO HS Qty: 30 5RF Discharge Orders: Discharge Order (Routine); Ordered 03/04/24 Ordered By: Laura Rolle/Other Patient Handouts: Causes of Syncope, Dehydration Admission Data Admit Date/Time: 03/02/24 21:42 Attending Provider: Lm Umanzor Admit Provider: Basilio Cary Primary Care Provider: Nichole Farfan Other Providers: Basilio Cary Other Interventions: Discharge Summary Assessment (RN) Last Done: 03/04/24 14:53 Supervising Physician Co-Signing Physician Notes I also saw the patient and confirmed patel portions of the history and exam. I agree with the impression and plan as noted in the resident documentation above. Upon our late morning exam, patient without complaint. She was able to ambulate and reported no weakness or dizziness. She lives with her , so feels she would have help, if needed, upon discharge. Discussed hydration. Sounds as if she has a degree of orthostatic symptoms at [facility], and she is aware of this and takes precaution. No change to her hydrocortisone. We did review home "stress dose" which she recalled being told before, but wasn't quite sure of situations in which she would utilize this; we reviewed. Agree with tapering gabapentin, something she had hope to do previously. Gabapentin could contribute to her symptoms. Discussed the need to slowly taper at the direcetion of her PCP. Resident Activity Tracking Resident Involvement: Resident Care Provided Care Provided: Adult Hospital Medicine
[2024-03-04 14:56] VITALS: BP 113/69; PULSE 67
== END 2024-03-04 15:46 | disposition home or self-care (01) | DRG 644 ==
LOC: ED 16:13 → SUATTDRO 21:42 → 2N 21:42

== ENCOUNTER 2024-06-10 14:22 | Inpatient (IN) ==
--- NOTE | 2024-06-10 14:38 | Emergency Department Note ---
Impression & Plan Acute exacerbation of chronic obstructive pulmonary disease (COPD), Elevated troponin ED Provider Note Provider: Dylan Lancaster MD CHIEF COMPLAINT: Shortness of breath HISTORY OF PRESENT ILLNESS: Patient is a 68-year-old female past medical history significant for VTE on Xarelto, sarcoidosis, COPD, chronic oxygen use is, GERD, adrenal insufficiency, and anxiety presented here via ambulance with worsening breathing. States her breathing is never been well in recent times. Reports over the past 4 days worsening breathing. Has not syncopized or fallen however. Normally uses about 2 and half liters of oxygen at home and was noted by EMS to be 88% on this when they arise. Has been using her breathing treatments at home and given 2 additional DuoNeb's as well as IV Solu-Medrol prior to arrival. Is starting to have some improvement of her coughing is still working to breathe some. No significant GI upset or leg swelling reported. No fevers reported or significant sinus congestion or sore throat. PAST MEDICAL HISTORY: As noted above MEDICATIONS: Reviewed home medications, on oxygen SOCIAL HISTORY: Smoker PHYSICAL EXAM: GENERAL: alert and oriented in no acute distress on stretcher nebulizer on and in place Head: normocephalic and atraumatic EYES: No injection, discharge or icterus. NECK: Trachea midline. ENT: Mucous membranes pink and moist. LUNGS: Airway patent. Mild work of breathing. Faint expiratory wheeze appreciable. HEART: Regular rate and rhythm. No chest wall tenderness ABDOMEN: Soft and non-tender, without guarding or rebound. SKIN: Acyanotic, warm, dry, without rashes EXTREMITIES: Without swelling, tenderness or deformity NEUROLOGICAL: No focal deficits. No aphasia. No facial droop or slurred speech. Normal strength and tone in the extremities. Sensation to gross touch normal. EK bpm normal sinus rhythm. No PVC or PAC. No acute ST segment elevation or depression with right axis and QTc of 474. CONTINUOUS CARDIAC MONITORING: was ordered and showed a heart rate of 80s to 90s bpm in normal sinus rhythm Patient's laboratory studies and imaging reviewed. Differential includes Reactive airway disease, pneumonia, pneumothorax, COPD, CHF, infections, cardiac ischemia, pulmonary embolism, musculoskeletal, gastrointestinal, as well as other pathologies. IMPRESSION/MEDICAL DECISION MAKING: No fevers or congestion or sore throat reported but breathing issues. Long history of COPD and continues to smoke. Anticoagulated lower suspicion for VTE. Optically tachycardic. On 3 L of oxygen she is to be satting low to mid 90s which is reasonable given her 2.5 L baseline. Received IV steroids and route. Given additional DuoNeb. She still has a bit of work of breathing and wheeziness. Chest X obtained as well as basic blood work. Respiratory viral panel sent. EKG without significant abnormality notable. No significant leukocytosis or anemia on blood work. No severe electrolyte abnormalities or evidence of hepatitis based on blood work. Chest x-ray here some focal scarring similar to prior according to radiology in the left perihilar region without findings concerning for pneumonia or fluid overload or pneumothorax. Testing seems consistent with likely COPD exacerbation. Given IV steroids already prior to arrival. Blood without leukocytosis or anemia. No significant electrolyte abnormality signs of renal dysfunction. Troponin does return elevated 113. Believe this is likely demand related to her respiratory issues. Again does confirm compliance with Xarelto and low suspicion for VTE with this. With DuoNeb improving wheezing but still work of breathing. Discussed with her trial of some BiPAP to assist with this. Respiratory viral panel is negative. Respiratory attempted to place BiPAP with the patient became quite anxious. I am a bit leery about giving her much in the way of sedatives with her respiratory status. Discussed with the hospitalist to evaluate and a VBG was ordered. VBG without severe acidosis. DIAGNOSIS: Acute COPD exacerbation, elevated troponin DISPOSITION: Hospitalist will evaluate Patient was agreeable with this plan. Critical Care I have personally spent 32 minutes of critical care time in the direct management of this patient. This includes bedside care, interpretation of diagnostic studies, and testing, discussion with consultants, patient, and other required patient management activities. These 32 minutes is in excess of all separately billable procedures. 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 Avascular necrosis of bone of right hip Unintentional weight loss Vitamin D deficiency Right hip pain Pleural effusion Cough Bronchiectasis Other cervical disc degeneration, mid-cervical region, unspecified level Other kyphosis, thoracic region Balance problem Ambulatory dysfunction Dysphagia OLGUIN (dyspnea on exertion) (Acute) Decompensated COPD with exacerbation (chronic obstructive pulmonary disease) Lesion of skin of nose Compression fracture Rib pain Thoracic back pain Hyperlipidemia Thoracic radiculopathy Colon cancer screening Pneumonia (Acute) Hypoxia Back pain Compression fracture of body of thoracic vertebra T6, T7, T8 Cor pulmonale SOB (shortness of breath) Rib pain Back pain Anxiety and depression Osteoporosis Osteoarthritis of left shoulder Chronic obstructive pulmonary disease (Acute) Insomnia Low back pain Postinflammatory pulmonary fibrosis Depression Anxiety Tobacco use disorder Chronic respiratory failure 2 LPM oxygen PRN Follows with [facility] pulmonary COPD (chronic obstructive pulmonary disease) COPD/emphysema Breathing stable per patient Sarcoidosis Follows with [facility] pulmonary (pulmonary ) History of pulmonary embolism 2019: post-op shoulder replacement ~2020: unknown etiology Patient taking Xarelto Osteoporosis Anxiety with depression Medical History Scoliosis Surgical History History of esophagogastroduodenoscopy (EGD) History of lung biopsy History of bronchoscopy Hx of colonoscopy Hx of elbow surgery Right History of hip replacement Left PREETI (09/11/17): SAB x1 at L3-L4 at [facility] Family History Father Myocardial infarction Brother Anxiety COPD (chronic obstructive pulmonary disease) Daughter Anxiety Sister Breast cancer Other Diabetes Kidney disease No family history of adverse response to anesthesia Denies family history of Ovarian cancer Prostate cancer Colorectal cancer Social History (Updated 04/23/24 @ 13:00 by CAROLE Nathan) Smoking Status: Current every day smoker Tobacco Type: Cigarettes Age Started Using Tobacco: 22; packs per day: 0.75; Cigarettes Per Day: 1 ppd (advised on policy); Second Hand Exposure: Yes (in the past); Do You Dip or Chew Tobacco: No; Hx Alcohol Use: No Hx Substance Use: No Preferred Language: Citizen Of [place] Communication Ability: Effective Visual Impairment: No Limitations Hearing Ability: Normal Lead Teller Required: No Beliefs That Will Affect Care: None marital status: Current Living Situation: Spouse Current Living Situation Comment: house current occupational status: retired and disabled 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 [employer] How many Children do You have: 2 Other Information That Helps Us Care for You: No Feels Safe at Home: Yes Childhood Exposure to Second-Hand Smoke: No Diet: regular Dental Care, Regularly: No Physical Activity Frequency: Does not Exercise Seatbelt Use: always Sunscreen Use: No (is not out in the sun much ) Assistive Devices: Glasses and Oxygen - Continuous Allergies Allergies Allergy/AdvReac Type Severity Reaction Status Date / Time No Known Allergies Allergy Verified 04/23/24 12:55 Home Meds Home Medications Medication Instructions Recorded Confirmed pantoprazole 40 mg tablet,delayed 40 mg PO QAM 07/04/23 06/10/24 release tizanidine 4 mg tablet (Zanaflex) 4 mg PO BID muscle spasticity 07/04/23 06/10/24 acetaminophen 500 mg tablet 1,000 mg PO TID PRN pain 03/02/24 06/10/24 (Tylenol Extra Strength) Previous Rx's Medication Instructions Recorded Wheelchair (Powered) (Power #1 ea 01/12/23 Wheelchair) Therapist Evaluation for Power #1 ea 01/30/23 Mobility Flutter Valve #1 ea 06/23/23 blood pressure monitor #1 ea 07/11/23 ondansetron 4 mg disintegrating 4 mg PO Q8 PRN nausea #20 tabs 07/15/23 tablet trazodone 100 mg tablet 100 mg PO HS #90 tabs 10/11/23 escitalopram oxalate 10 mg tablet 10 mg PO QAM #90 tabs 10/27/23 albuterol sulfate 90 mcg/actuation 2 puff inhalation QID PRN 11/15/23 aerosol inhaler (Ventolin HFA) Shortness Of Breath Or Wheezing #18 grams rivaroxaban 20 mg tablet (Xarelto) 20 mg PO HS #30 tabs 02/01/24 hydrocortisone sod succ (PF) 100 75 mg (1.5 mL) IM ONCE PRN severe 03/12/24 mg/2 mL solution for injection adrenal insufficiency #1 ea (Solu-Cortef Act-O-Vial (PF)) folic acid 1 mg tablet 1 mg PO DAILY #30 tabs 03/27/24 gabapentin 300 mg capsule 300 mg PO BID #180 caps 04/29/24 hydrocortisone 5 mg tablet See Rx Instructions PO TID #180 05/08/24 tabs albuterol sulfate 2.5 mg/3 mL 2.5 mg (3 mL) inhalation QID PRN 05/15/24 (0.083 %) solution for nebulization Shortness Of Breath Or Wheezing #270 mL benzonatate 100 mg capsule 100 mg PO TID PRN cough #30 caps 05/15/24 lorazepam 1 mg tablet (Ativan) 1 mg PO DAILY PRN Anxiety #30 tabs 06/06/24 rosuvastatin 5 mg tablet 5 mg PO QAM #90 tabs 06/06/24 umeclidinium 62.5 mcg-vilanterol 1 inh inhalation QAM #60 ea 06/06/24 25 mcg/actuation powdr for inhalation (Anoro Ellipta) Results & Data (ED) Vital Signs Vital Signs - 24 hr 06/10/24 14:29 06/10/24 14:30 06/10/24 14:30 Temperature 36.6 C Temperature Source Oral Pulse Rate 88 88 Pulse Rate [Apical] Respiratory Rate 22 Blood Pressure 95/68 L Blood Pressure [Right Arm] Blood Pressure Mean 77 Blood Pressure Mean [Right Arm] Pulse Oximetry 97 Oxygen Delivery Method Oxymask Oxymask Oxygen Flow Rate 6 6 Sepsis Recent Fever Within 48 Hours No Sepsis New/Unexplained Change in Mental Status N/A Sepsis Action Taken by Nursing Physician Notified 06/10/24 14:30 06/10/24 14:30 06/10/24 14:30 Temperature 36.6 C Temperature Source Oral Pulse Rate 88 Pulse Rate [Apical] 88 Respiratory Rate 22 22 Blood Pressure Blood Pressure [Right Arm] 95/68 L Blood Pressure Mean Blood Pressure Mean [Right Arm] 77 Pulse Oximetry 97 97 97 Oxygen Delivery Method Oxymask Oxymask Oxymask Oxygen Flow Rate 6 6 6 Sepsis Recent Fever Within 48 Hours Sepsis New/Unexplained Change in Mental Status Sepsis Action Taken by Nursing 06/10/24 16:13 Temperature Temperature Source Pulse Rate Pulse Rate [Apical] 103 H Respiratory Rate 22 Blood Pressure Blood Pressure [Right Arm] 89/63 L Blood Pressure Mean Blood Pressure Mean [Right Arm] 71 Pulse Oximetry 92 Oxygen Delivery Method Nasal Cannula Oxygen Flow Rate 5 Sepsis Recent Fever Within 48 Hours Sepsis New/Unexplained Change in Mental Status Sepsis Action Taken by Nursing Laboratory Data 06/10/24 14:33 06/10/24 14:33 Lab Results 06/10/24 06/10/24 06/10/24 Range/Units 14:33 15:01 16:14 WBC 6.39 (4.8-10.8) K/ul RBC 4.91 (4.20-5.40) M/uL Hgb 14.8 (12.0-16.0) g/dl Hct 45.0 (37.0-47.0) % MCV 91.6 (80.0-100.0) fL MCH 30.1 (25.0-34.0) pg MCHC 32.9 (32.0-36.0) g/dL RDW Std Deviation 51.0 H (36.4-46.3) fL RDW Coeff of Perry 15.2 H (11.5-14.5) % Plt Count 151 (130-400) K/uL MPV 10.0 (9.4-12.4) fL Immature Gran % (Auto) 0.3 % Neut % (Auto) 63.1 % Lymph % (Auto) 25.8 % Colbert % (Auto) 8.0 % Eos % (Auto) 1.9 % Baso % (Auto) 0.9 % Neut # (Auto) 4.03 (1.40-6.50) K/uL Lymph # (Auto) 1.65 (1.20-3.40) K/uL Colbert # (Auto) 0.51 (0.11-0.59) K/uL Eos # (Auto) 0.12 (0.00-0.50) K/uL Baso # (Auto) 0.06 (0.00-0.20) K/uL Immature Gran # (Auto) 0.02 (0.01-0.20) K/uL PT 10.9 (9.0-12.0) Seconds INR 1.0 (0.9-1.1) VBG pH (7.36-7.41) VBG pCO2 (38-50) mmHg VBG pO2 mmHg VBG HCO3 mmol/L VBG O2 Saturation % VBG Base Excess mEq/L Sodium 140 (136-145) mmol/L Potassium 3.6 (3.5-5.1) mmol/L Chloride 100 (98-107) mmol/L Carbon Dioxide 36 H (21-32) mmol/L Anion Gap 4 (3-11) BUN 11 (6-23) mg/dl Creatinine 0.64 (0.6-1.2) mg/dl Est Cr Clr Drug Dosing 68.6 ml/min eGFR 95.60 BUN/Creatinine Ratio 17.2 (10-20) Glucose 119 H (70-99(Fasting)) mg/dl Calcium 9.7 (8.6-10.3) mg/dl Magnesium 1.8 (1.7-2.4) mg/dl Total Bilirubin 0.7 (0.2-1.0) mg/dl AST 14 (13-39) U/L ALT 9 (7-52) U/L Alkaline Phosphatase 64 (34-104) U/L Lactate Dehydrogenase 169 (86-244) U/L Troponin I High Sens 113.1 H* (0-14) pg/ml Total Protein 6.7 (6.0-8.3) gm/dl Albumin 4.0 (3.4-5.0) gm/dl Globulin 2.7 (2.5-4.0) gm/dl Albumin/Globulin Ratio 1.5 (0.9-2) Procalcitonin < 0.02 (0-0.5) ng/ml Urine Color Yellow Urine Appearance Clear (Clear) Urine pH 6.0 (4.5-7.5) Ur Specific [place] 1.010 (1.000-1.030) Urine Protein Negative (Negative) Urine Glucose (UA) Negative (Negative) Urine Ketones Negative (Negative) Urine Blood Trace-intact H (Negative) Urine Nitrite Negative (Negative) Urine Bilirubin Negative (Negative) Urine Urobilinogen Negative (Negative) Ur Leukocyte Esterase Negative (Negative) Urine RBC 0-2 (0-2) /hpf Urine WBC 0-5 (0-5) /hpf Ur Epithelial Cells 0-2 (0-2) /hpf Urine Bacteria None Seen (None Seen) Adenovirus (PCR) Not Detected (NotDetected) B. pertussis DNA (PCR) Not Detected (NotDetected) B.parapertussis DNA PCR Not Detected (NotDetected) C. pneumoniae DNA (PCR) Not Detected (NotDetected) Coronavirus OC43 (PCR) Not Detected (NotDetected) Coronavirus HKU1 (PCR) Not Detected (NotDetected) Coronavirus 229E (PCR) Not Detected (NotDetected) SARS-CoV-2 (PCR) Not Detected (NotDetected) Coronavirus NL63 (PCR) Not Detected (NotDetected) Human Metapneumovir PCR Not Detected (NotDetected) Influenza Type A (PCR) Not Detected (NotDetected) Influenza Type B (PCR) Not Detected (NotDetected) M. pneumoniae (PCR) Not Detected (NotDetected) Parainfluenza 1 (PCR) Not Detected (NotDetected) Parainfluenza 2 (PCR) Not Detected (NotDetected) Parainfluenza 3 (PCR) Not Detected (NotDetected) Parainfluenza 4 (PCR) Not Detected (NotDetected) RSV (PCR) Not Detected (NotDetected) Entero/Rhino (PCR) Not Detected (NotDetected) 06/10/24 Range/Units 16:26 WBC (4.8-10.8) K/ul RBC (4.20-5.40) M/uL Hgb (12.0-16.0) g/dl Hct (37.0-47.0) % MCV (80.0-100.0) fL MCH (25.0-34.0) pg MCHC (32.0-36.0) g/dL RDW Std Deviation (36.4-46.3) fL RDW Coeff of Perry (11.5-14.5) % Plt Count (130-400) K/uL MPV (9.4-12.4) fL Immature Gran % (Auto) % Neut % (Auto) % Lymph % (Auto) % Colbert % (Auto) % Eos % (Auto) % Baso % (Auto) % Neut # (Auto) (1.40-6.50) K/uL Lymph # (Auto) (1.20-3.40) K/uL Colbert # (Auto) (0.11-0.59) K/uL Eos # (Auto) (0.00-0.50) K/uL Baso # (Auto) (0.00-0.20) K/uL Immature Gran # (Auto) (0.01-0.20) K/uL PT (9.0-12.0) Seconds INR (0.9-1.1) VBG pH 7.40 (7.36-7.41) VBG pCO2 55 H (38-50) mmHg VBG pO2 39 mmHg VBG HCO3 34 mmol/L VBG O2 Saturation 72.9 % VBG Base Excess 7.5 mEq/L Sodium (136-145) mmol/L Potassium (3.5-5.1) mmol/L Chloride (98-107) mmol/L Carbon Dioxide (21-32) mmol/L Anion Gap (3-11) BUN (6-23) mg/dl Creatinine (0.6-1.2) mg/dl Est Cr Clr Drug Dosing ml/min eGFR BUN/Creatinine Ratio (10-20) Glucose (70-99(Fasting)) mg/dl Calcium (8.6-10.3) mg/dl Magnesium (1.7-2.4) mg/dl Total Bilirubin (0.2-1.0) mg/dl AST (13-39) U/L ALT (7-52) U/L Alkaline Phosphatase (34-104) U/L Lactate Dehydrogenase (86-244) U/L Troponin I High Sens 94.8 H* D (0-14) pg/ml Total Protein (6.0-8.3) gm/dl Albumin (3.4-5.0) gm/dl Globulin (2.5-4.0) gm/dl Albumin/Globulin Ratio (0.9-2) Procalcitonin (0-0.5) ng/ml Urine Color Urine Appearance (Clear) Urine pH (4.5-7.5) Ur Specific [place] (1.000-1.030) Urine Protein (Negative) Urine Glucose (UA) (Negative) Urine Ketones (Negative) Urine Blood (Negative) Urine Nitrite (Negative) Urine Bilirubin (Negative) Urine Urobilinogen (Negative) Ur Leukocyte Esterase (Negative) Urine RBC (0-2) /hpf Urine WBC (0-5) /hpf Ur Epithelial Cells (0-2) /hpf Urine Bacteria (None Seen) Adenovirus (PCR) (NotDetected) B. pertussis DNA (PCR) (NotDetected) B.parapertussis DNA PCR (NotDetected) C. pneumoniae DNA (PCR) (NotDetected) Coronavirus OC43 (PCR) (NotDetected) Coronavirus HKU1 (PCR) (NotDetected) Coronavirus 229E (PCR) (NotDetected) SARS-CoV-2 (PCR) (NotDetected) Coronavirus NL63 (PCR) (NotDetected) Human Metapneumovir PCR (NotDetected) Influenza Type A (PCR) (NotDetected) Influenza Type B (PCR) (NotDetected) M. pneumoniae (PCR) (NotDetected) Parainfluenza 1 (PCR) (NotDetected) Parainfluenza 2 (PCR) (NotDetected) Parainfluenza 3 (PCR) (NotDetected) Parainfluenza 4 (PCR) (NotDetected) RSV (PCR) (NotDetected) Entero/Rhino (PCR) (NotDetected) Administered Medications Gabapentin (Gabapentin 300 Mg Cap) 300 mg PO BID [facility] Stop: 07/10/24 20:59 Last Admin: 06/10/24 21:30 Dose: 300 mg Documented By: VIRY Guaifenesin (Guaifenesin 600 Mg Tabcr) 1,200 mg PO BID HEATHER Stop: 07/10/24 20:59 Last Admin: 06/10/24 21:30 Dose: 1,200 mg Documented By: VIRY Rivaroxaban (Rivaroxaban 20 Mg Tab) 20 mg PO QDD HEATHER Stop: 07/10/24 20:59 Last Admin: 06/10/24 21:36 Dose: Not Given Documented By: VIRY Discontinued Medications Albuterol (Albut/Ipratrop 3mg/0.5mg Neb 3 Ml Vial) 12 ml NEB ONE ONE; Protocol Stop: 06/10/24 14:41 Last Admin: 06/10/24 15:01 Dose: 12 ml Documented By: JEREMIE Albuterol (Albut/Ipratrop 3mg/0.5mg Neb 3 Ml Vial) 3 ml NEB ONCE ONE; Protocol Stop: 06/10/24 18:26 Last Admin: 06/10/24 19:29 Dose: Not Given Documented By: JACK Albuterol (Albuterol 0.5% Neb Soln 2.5 Mg/0.5 Ml Vial) 2.5 mg NEB NOW STA; Protocol Stop: 06/10/24 19:26 Last Admin: 06/10/24 19:32 Dose: Not Given Documented By: JACK Azithromycin (Azithromycin 250 Mg Tab) 500 mg PO NOW ONE Stop: 06/10/24 17:19 Last Admin: 06/10/24 18:08 Dose: 500 mg Documented By: AKBAR Hydrocortisone Sodium Succinate (Hydrocortisone Sod Succinate 100 Mg/2 Ml Vial) 50 mg IV NOW STA Stop: 06/10/24 17:18 Last Admin: 06/10/24 18:09 Dose: 50 mg Documented By: TORY Parenteral Electrolytes (Plasma-Lyte A Ph 7.4) 1,000 mls @ 999 mls/hr IV .Q1H1M ONE Stop: 06/10/24 18:16 Last Infusion: 06/10/24 19:14 Dose: Infused Documented By: Admin: 06/10/24 18:22 Dose: 999 mls/hr Documented By: AKBAR Cefepime HCl (Maxipime 2000mg) 2,000 mg in 20 mls @ 5 mls/min IV NOW ONE Stop: 06/10/24 17:33 Last Admin: 06/10/24 18:09 Dose: 5 mls/min Documented By: AKBAR Sodium Chloride (Nss) 500 mls @ 999 mls/hr IV .Q31M ONE Stop: 06/10/24 19:24 Last Infusion: 06/10/24 19:47 Dose: Infused Documented By: Admin: 06/10/24 19:16 Dose: 999 mls/hr Documented By: EMB Parenteral Electrolytes (Plasma-Lyte A Ph 7.4) 500 mls @ 999 mls/hr IV .Q31M ONE Stop: 06/10/24 20:58 Last Admin: 06/10/24 21:29 Dose: 999 mls/hr Documented By: [facility] Imaging Data Radiologist's Impression: Chest X-Ray 06/10/24 14:29 XR chest 1V portable CLINICAL HISTORY: Dyspnea TECHNIQUE: Single frontal radiograph of the chest was obtained. Comparison: Comparison is made to chest radiograph 03/02/2024 and CTA chest 03/02/2024 FINDINGS: Right shoulder acromioplasty is seen. The cardiomediastinal silhouette is normal. Bilateral perihilar densities are seen. No evidence of pleural effusion or pneumothorax. IMPRESSION: No acute abnormalities are seen in particular no evidence of pneumonia. Focal scarring and calcifications in the pulmonary parenchyma are similar in appearance to prior exam. ACT 112: Negative or not required by law. Electronically signed by: Prince Eaton M.D. 06/10/2024 2:49 PM Discharge Plan Visit Data Chief Complaint: Shortness of Breath/Dyspnea ED Provider: Dylan Lancaster Discharge Problem: Acute exacerbation of chronic obstructive pulmonary disease (COPD), Elevated troponin Patient Disposition: Admitted As Inpatient Discharge Instructions Interventions: ED Discharge Assessment Last Done: 06/10/24 20:12
[2024-06-10 14:47] LABS: Basophils # (auto) 0.06 K/uL (0.00-0.20); Basophils % (auto) 0.9 %; Eosinophils # (auto) 0.12 K/uL (0.00-0.50); Eosinophils % (auto) 1.9 %; Hemoglobin 14.8 g/dl (12.0-16.0); Immature Granulocytes # (auto) 0.02 K/uL (0.01-0.20); Immature Granulocytes % (auto) 0.3 %; Lymphocytes # (auto) 1.65 K/uL (1.20-3.40); Lymphocytes % (auto) 25.8 %; Mean Corpuscular Hemoglobin 30.1 pg (25.0-34.0); Mean Corpuscular Hgb Conc 32.9 g/dL (32.0-36.0); Mean Corpuscular Volume 91.6 fL (80.0-100.0); Monocytes # (auto) 0.51 K/uL (0.11-0.59); Neutrophils # (auto) 4.03 K/uL (1.40-6.50); Neutrophils % (auto) 63.1 %; Platelet Count 151 K/uL (130-400); RDW Coefficient of Variation 15.2 % (11.5-14.5); Red Blood Count 4.91 M/uL (4.20-5.40); White Blood Count 6.39 K/ul (4.8-10.8)
--- NOTE | 2024-06-10 14:51 | XRay Report ---
XR chest 1V portable CLINICAL HISTORY: Dyspnea TECHNIQUE: Single frontal radiograph of the chest was obtained. Comparison: Comparison is made to chest radiograph 03/02/2024 and CTA chest 03/02/2024 FINDINGS: Right shoulder acromioplasty is seen. The cardiomediastinal silhouette is normal. Bilateral perihilar densities are seen. No evidence of pleural effusion or pneumothorax. IMPRESSION: No acute abnormalities are seen in particular no evidence of pneumonia. Focal scarring and calcificat ions in the pulmonary parenchyma are similar in appearance to prior exam. ACT 112: Negative or not required by law. Electronically signed by: Prince Eaton M.D. 06/10/2024 2:49 PM
[2024-06-10] MEDS: ALBUT/IPRATROP 3MG/0.5MG NEB 3 ML VIAL NEB ONE ×2 (15:01→19:29)
[2024-06-10 15:04] LABS: Albumin Globulin Ratio 1.5 (0.9-2); BUN Creatinine Ratio 17.2 (10-20); Bilirubin,Total 0.7 mg/dl (0.2-1.0); Calcium 9.7 mg/dl (8.6-10.3); Creatinine Clr Calc Pharmacy 68.6 ml/min; Globulin 2.7 gm/dl (2.5-4.0); Magnesium 1.8 mg/dl (1.7-2.4); Potassium 3.6 mmol/L (3.5-5.1); Total Protein 6.7 gm/dl (6.0-8.3)
[2024-06-10 15:13] LABS: Prothrombin Time 10.9 Seconds (9.0-12.0)
[2024-06-10 15:28] LABS: Troponin I High Sensitivity 113.1 pg/ml (0-14)
--- NOTE | 2024-06-10 15:51 | Electrocardiogram Report ---
Test Reason : Blood Pressure : */* mmHG Vent. Rate : 89 BPM Atrial Rate : 89 BPM P-R Int : 128 ms QRS Dur : 90 ms QT Int : 390 ms P-R-T Axes : 84 125 74 degrees QTcB Int : 474 ms Normal sinus rhythm Left atrial enlargement Incomplete right bundle branch block Right axis deviation Abnormal ECG When compared with ECG of 02-Mar-2024 16:30, No significant change Confirmed by Joe Melendez ([id number]) on 06/10/2024 3:50:10 PM Referred By: Confirmed By: Joe Melendez
[2024-06-10 16:15] LABS: Adenovirus PCR Not Detected (NotDetected); Bordetella parapertussis PCR Not Detected (NotDetected); Bordetella pertussis PCR Not Detected (NotDetected); Chlamydia pneumoniae PCR Not Detected (NotDetected); Coronavirus 229E PCR Not Detected (NotDetected); Coronavirus CoV-2 (COVID19)PCR Not Detected (NotDetected); Coronavirus HKU1 PCR Not Detected (NotDetected); Coronavirus NL63 PCR Not Detected (NotDetected); Coronavirus OC43PCR Not Detected (NotDetected); Human Metapneumovirus PCR Not Detected (NotDetected); Influenza A PCR Not Detected (NotDetected); Influenza B PCR Not Detected (NotDetected); Mycoplasma pneumoniae PCR Not Detected (NotDetected); Parainfluenza Virus 1 PCR Not Detected (NotDetected); Parainfluenza Virus 2 PCR Not Detected (NotDetected); Parainfluenza Virus 3 PCR Not Detected (NotDetected); Parainfluenza Virus 4 PCR Not Detected (NotDetected); Respiratory Syncytial VirusPCR Not Detected (NotDetected); Rhinovirus/Enterovirus PCR Not Detected (NotDetected)
[2024-06-10 16:26] LABS: Appearance Urine Clear (Clear); Bilirubin Urine Negative (Negative); Blood Urine Trace-intact (Negative); Color Urine Yellow; Glucose Urine UA Negative (Negative); Ketones Urine Negative (Negative); Leukocyte Esterase Urine Negative (Negative); Nitrite Urine Negative (Negative); Protein Urine Negative (Negative); Urobilinogen Urine Negative (Negative)
--- NOTE | 2024-06-10 16:48 | History & Physical Report ---
Date of Service June 10, 2024 Assessment & Plan (1) Acute exacerbation of chronic obstructive pulmonary disease (COPD): (2) GERD (gastroesophageal reflux disease): (3) Hypotension: (4) Chronic pain: (5) Adrenal insufficiency: (6) Anxiety and depression: Plan Pt is a 68 yo female with a past medical history of COPD on 2.5L baseline O2, adrenal insufficiency on hydrocortisone 15 mg am and 5 mg pm, chronic back pain, GERD, and hx unprovoked PE on xarelto who presents to the hospital on 06/10 for acutely worsening SOB. #COPD Exac - SOB most likley COPD exac based on hx and presenting symptoms - 2.5 L O2 baseline - CXR without signs of pneumonia, biofire negative - will increase inhaler use to les q4h duonebs - will add azithromycin and cefepime (cefepime due to chronic steroid use) - incentive spirometry/flutter valve - MRSA nares pending - VBG ordered; CO2 level 55, pt not wishing to try CPAP/bipap at this time #Adrenal insufficiency - home hydrocortisone; 15 mg qam, 5 mg qpm - given COPD exac, will increase dosing to 50 mg IV q6h hydrocortisone #Hypotension with tachycardia - BP appears to be about baseline, HR 90-100s - pt notes poor po intake over the last few days especially, so suspect this is due to dehydration - defer CTA chest for PE as she is compliant with her xarelto, no missed doses per pt - will bolus 1L, last echo 03/2024 EF 55-60% #GERD - continue home pantoprazole #Chronic back pain - continue home gabapentin #Depression with anxiety - continue home lexapro Holding other home medications for pain/insomnia as these can be sedating and decrease resp drive and she is presenting with increased resp effort. VTE ppx: continue home Xarelto History of Present Illness Chief Complaint: SOB Primary Care Provider: CLAY Michele Pt is a 68 yo female with a past medical history of COPD on 2.5L baseline O2, adrenal insufficiency on hydrocortisone 15 mg am and 5 mg pm, chronic back pain, GERD, and hx unprovoked PE on xarelto who presents to the hospital on 06/10 for acutely worsening SOB. Pt states that about 4 days ago she noticed worsening SOB on her baseline amount of oxygen. No URI symptoms other than dry cough. She states that yesterday she felt the worst and is a bit better today compared to yesterday but still feels like it is very hard for her to get good breaths in. She states she has adrenal insufficiency and usually takes 15 mg qam and 5 mg qpm, yesterday doubled these doses. She states that this feels a lot like her previous COPD exacerbations that she has had in the past. Started smoking at age 22, quit for 13 years but restarted smoking about 5 years ago. She states at some point she was smoking 3 ppd but now is at 1 ppd. She also notes weight loss over the last year of about 30-40 lbs. She states she generally has no appetite. No nausea or vomiting, no abdominal pain, just no appetite. She notes some chest pain today as well that is across the chest that is very tender to palpation. Allergies Allergy/AdvReac Type Severity Reaction Status Date / Time No Known Allergies Allergy Verified 04/23/24 12:55 Home Medications Medication Instructions Recorded Confirmed Type Wheelchair (Powered) (Power #1 ea 01/12/23 06/10/24 Rx Wheelchair) Therapist Evaluation for Power #1 ea 01/30/23 06/10/24 Rx Mobility Flutter Valve #1 ea 06/23/23 06/10/24 Rx pantoprazole 40 mg tablet,delayed 40 mg PO QAM 07/04/23 06/10/24 History release tizanidine 4 mg tablet (Zanaflex) 4 mg PO BID muscle spasticity 07/04/23 06/10/24 History blood pressure monitor #1 ea 07/11/23 06/10/24 Rx ondansetron 4 mg disintegrating 4 mg PO Q8 PRN nausea #20 tabs 07/15/23 06/10/24 Rx tablet trazodone 100 mg tablet 100 mg PO HS #90 tabs 10/11/23 06/10/24 Rx escitalopram oxalate 10 mg tablet 10 mg PO QAM #90 tabs 10/27/23 06/10/24 Rx albuterol sulfate 90 mcg/actuation 2 puff inhalation QID PRN 11/15/23 06/10/24 Rx aerosol inhaler (Ventolin HFA) Shortness Of Breath Or Wheezing #18 grams rivaroxaban 20 mg tablet (Xarelto) 20 mg PO HS #30 tabs 02/01/24 06/10/24 Rx acetaminophen 500 mg tablet 1,000 mg PO TID PRN pain 03/02/24 06/10/24 History (Tylenol Extra Strength) hydrocortisone sod succ (PF) 100 75 mg (1.5 mL) IM ONCE PRN severe 03/12/24 06/10/24 Rx mg/2 mL solution for injection adrenal insufficiency #1 ea (Solu-Cortef Act-O-Vial (PF)) folic acid 1 mg tablet 1 mg PO DAILY #30 tabs 03/27/24 06/10/24 Rx gabapentin 300 mg capsule 300 mg PO BID #180 caps 04/29/24 06/10/24 Rx hydrocortisone 5 mg tablet See Rx Instructions PO TID #180 05/08/24 06/10/24 Rx tabs albuterol sulfate 2.5 mg/3 mL 2.5 mg (3 mL) inhalation QID PRN 05/15/24 06/10/24 Rx (0.083 %) solution for nebulization Shortness Of Breath Or Wheezing #270 mL benzonatate 100 mg capsule 100 mg PO TID PRN cough #30 caps 05/15/24 06/10/24 Rx lorazepam 1 mg tablet (Ativan) 1 mg PO DAILY PRN Anxiety #30 tabs 06/06/24 06/10/24 Rx rosuvastatin 5 mg tablet 5 mg PO QAM #90 tabs 06/06/24 06/10/24 Rx umeclidinium 62.5 mcg-vilanterol 1 inh inhalation QAM #60 ea 06/06/24 06/10/24 Rx 25 mcg/actuation powdr for inhalation (Anoro Ellipta) 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 Avascular necrosis of bone of right hip Unintentional weight loss Vitamin D deficiency Right hip pain Pleural effusion Cough Bronchiectasis Other cervical disc degeneration, mid-cervical region, unspecified level Other kyphosis, thoracic region Balance problem Ambulatory dysfunction Dysphagia OLGUIN (dyspnea on exertion) (Acute) Decompensated COPD with exacerbation (chronic obstructive pulmonary disease) Lesion of skin of nose Compression fracture Rib pain Thoracic back pain Hyperlipidemia Thoracic radiculopathy Colon cancer screening Pneumonia (Acute) Hypoxia Back pain Compression fracture of body of thoracic vertebra T6, T7, T8 Cor pulmonale SOB (shortness of breath) Rib pain Back pain Anxiety and depression Osteoporosis Osteoarthritis of left shoulder Chronic obstructive pulmonary disease (Acute) Insomnia Low back pain Postinflammatory pulmonary fibrosis Depression Anxiety Tobacco use disorder Chronic respiratory failure 2 LPM oxygen PRN Follows with [facility] pulmonary COPD (chronic obstructive pulmonary disease) COPD/emphysema Breathing stable per patient Sarcoidosis Follows with [facility] pulmonary (pulmonary ) History of pulmonary embolism 2019: post-op shoulder replacement ~2020: unknown etiology Patient taking Xarelto Osteoporosis Anxiety with depression Medical History Scoliosis Surgical History History of esophagogastroduodenoscopy (EGD) History of lung biopsy History of bronchoscopy Hx of colonoscopy Hx of elbow surgery Right History of hip replacement Left PREETI (09/11/17): SAB x1 at L3-L4 at [facility] Family History Father Myocardial infarction Brother Anxiety COPD (chronic obstructive pulmonary disease) Daughter Anxiety Sister Breast cancer Other Diabetes Kidney disease No family history of adverse response to anesthesia Denies family history of Ovarian cancer Prostate cancer Colorectal cancer Social History (Updated 04/23/24 @ 13:00 by CAROLE Nathan) Smoking Status: Current every day smoker Tobacco Type: Cigarettes Age Started Using Tobacco: 22; packs per day: 0.75; Cigarettes Per Day: 1 ppd (advised on policy); Second Hand Exposure: Yes (in the past); Do You Dip or Chew Tobacco: No; Hx Alcohol Use: No Hx Substance Use: No Preferred Language: [place] Communication Ability: Effective Visual Impairment: No Limitations Hearing Ability: Normal Assistant Infant Toddler Teacher Required: No Beliefs That Will Affect Care: None marital status: Current Living Situation: Spouse Current Living Situation Comment: house current occupational status: retired and disabled 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 Physical Exam Physical Exam: General: Alert and oriented, uncomfortable and anxious appearing with mildly increased resp effort HEENT: Normocephalic, moist oral mucosa, Cardio: Regular rate and rhythm, Resp: Very poor air movement with diffuse wheezing GI: Soft and nontender, nondistended, bowel sounds active Skin: Warm, pink, dry, Results & Data Results & Data Vital Signs (Past 12 Hours) Vital Signs Temp Pulse Pulse Resp BP BP Pulse Ox 06/10/24 16:13 103 H 22 89/63 L 92 06/10/24 14:30 88 22 97 06/10/24 14:30 36.6 C 88 22 95/68 L 97 06/10/24 14:30 97 06/10/24 14:30 36.6 C 88 22 95/68 L 97 06/10/24 14:30 06/10/24 14:29 88 O2 Del Method O2 Flow Rate 06/10/24 16:13 Nasal Cannula 5 06/10/24 14:30 Oxymask 6 06/10/24 14:30 Oxymask 6 06/10/24 14:30 Oxymask 6 06/10/24 14:30 Oxymask 6 06/10/24 14:30 Oxymask 6 06/10/24 14:29 Supervising Physician Co-Signing Physician Notes Patient seen and examined, chart reviewed, case discussed with Dr. Kelsey and I agree with the assessment and plan as above except as otherwise noted Labs and images reviewed 68yo F witha PMHx of COPD on 2.5L baseline O2, PE on Xarelto, 4 days of progressive dyspnea, shaking, fatigue. +Dry cough, last 2 days worsening maybe a little better today. +chest pain in a band across the front of her chest greatly worsened with palpation and coughing. +extensive tobacco use up to 1-3ppd for many years. Precontemplative. On exam diffusely wheezing post nebulizer. Refuses bipap/cpap due to anxiety. VBG 7.4/55/39/34, mikld compensated respiratory acidosis. Severe AoC COPD Exacerbation - Cefepime/Azithromycin continued due to severe exacberation - Duoneb q every 4 hours, Xopenex every 2 hours as needed - Hydrocortisone 50mg q6h for both risk of AI and COPD exacerbation -Patient pressures do tend to run soft at baseline, is 80s90s and slightly tachycardic in the room. She is not overtly overloaded. She has had poor p.o. intake, 1 L NSS ordered, lactate ordered. No history of CHF, LV SF normal on echo 2023. Rebolus as clinically indicated. Pulmonary toilet Titrate oxygen to goal SpO2 90% Incentive spirometry Blood cultures pending. Agree with above Initial LDH ordered instead of lactate. Lactate was reordered. Subsequently 3.3. After this draw patient's blood pressure has improved and is now normotensive following 1 L. 30 cc/kg IBW 1568 cc, additional 500 cc ordered for bolus. Lactate trended. Remains normotensive on recheck with thumb cap refill less than 2 seconds. On reassessment patient still has basilar wheezing, is very tremulous following her nebulizer treatment and slightly tachycardic. Blood pressures mayda improved. Nebs switched to Xopenex to minimize tachycardic response. Denies chest pain at time of reevaluation. Resident Activity Tracking Resident Involvement: Resident Care Provided Care Provided: Adult Hospital Medicine
[2024-06-10 16:51] LABS: Base Excess VBG 7.5 mEq/L; HCO3 VBG 34 mmol/L; Oxygen Saturation VBG 72.9 %; PCO2 VBG 55 mmHg (38-50); PO2 VBG 39 mmHg
[2024-06-10 16:58] LABS: Bacteria Urine None Seen (None Seen); Epithelial Cell Urine 0-2 /hpf (0-2); RBC Urine 0-2 /hpf (0-2); WBC Urine 0-5 /hpf (0-5)
[2024-06-10] MEDS ORDERED: POLYETHYLENE (MIRALAX) 17 GM PACK PO PRN (17:27)
[2024-06-10] MEDS ORDERED: ONDANSETRON INJ 2 MG/ML 2 ML VIAL IV PRN (17:27)
[2024-06-10] MEDS ORDERED: ACETAMINOPHEN 325 MG TAB PO PRN (17:27)
[2024-06-10] MEDS: AZITHROMYCIN 250 MG TAB PO ONE (18:08)
[2024-06-10] MEDS: CEFEPIME 2000MG 2,000 MG/20 ML SYR IV ONE (18:09)
[2024-06-10] MEDS: HYDROCORTISONE SOD SUCCINATE 100 MG/2 ML VIAL IV STA (18:09)
[2024-06-10] MEDS: PLASMA-LYTE A 1,000 ML IV ONE (18:22)
[2024-06-10] MEDS: SODIUM CHLORIDE 0.9% 500 ML IV ONE (19:16)
[2024-06-10] MEDS: ALBUTEROL 0.5% NEB SOLN 2.5 MG/0.5 ML VIAL NEB STA (19:29)
--- NOTE | 2024-06-10 20:29 | Billing Data ---
Date of Service June 10, 2024 Coding Level of Care Code 70798 INT INP/OBS CARE
[2024-06-10] MEDS ORDERED: BENZONATATE 100 MG CAPSULE PO PRN (20:34)
[2024-06-10] MEDS: PLASMA-LYTE A 500 ML IV ONE (21:29)
[2024-06-10] MEDS: RIVAROXABAN 20 MG TAB PO SCH (21:30)
[2024-06-10] MEDS: guaiFENesin 600 MG TABCR PO SCH (21:30)
[2024-06-10] MEDS: GABAPENTIN 300 MG CAP PO SCH (21:30)
[2024-06-10] MEDS: LEVALBUTEROL 1.25 MG/3 ML NEB NEB PRN (23:44)
[2024-06-10] MEDS: HYDROCORTISONE SOD 50 MG in SYRINGE 0 ML IV SCH (23:45)
[2024-06-11] MEDS ORDERED: HYDROCORTISONE SOD SUCCINATE 100 MG/2 ML VIAL IV SCH (00:05)
[2024-06-11] MEDS: CEFEPIME 2000MG 2,000 MG/20 ML SYR IV SCH (02:08)
[2024-06-11 06:37] LABS: Basophils # (auto) 0.01 K/uL (0.00-0.20); Basophils % (auto) 0.2 %; Eosinophils # (auto) 0.01 K/uL (0.00-0.50); Eosinophils % (auto) 0.2 %; Hematocrit (blood only) 38.4 % (37.0-47.0); Hemoglobin 12.8 g/dl (12.0-16.0); Immature Granulocytes # (auto) 0.01 K/uL (0.01-0.20); Immature Granulocytes % (auto) 0.2 %; Lymphocytes # (auto) 0.82 K/uL (1.20-3.40); Lymphocytes % (auto) 17.5 %; Mean Corpuscular Hemoglobin 30.3 pg (25.0-34.0); Mean Corpuscular Hgb Conc 33.3 g/dL (32.0-36.0); Mean Platelet Volume 10.4 fL (9.4-12.4); Monocytes # (auto) 0.37 K/uL (0.11-0.59); Monocytes % (auto) 7.9 %; Neutrophils # (auto) 3.46 K/uL (1.40-6.50); Platelet Count 157 K/uL (130-400); RDW Coefficient of Variation 14.9 % (11.5-14.5); RDW Standard Deviation 50.4 fL (36.4-46.3); Red Blood Count 4.22 M/uL (4.20-5.40); White Blood Count 4.68 K/ul (4.8-10.8)
[2024-06-11 06:52] LABS: BUN Creatinine Ratio 21.8 (10-20); Calcium 9.1 mg/dl (8.6-10.3); Creatinine Clr Calc Pharmacy 79.9 ml/min; Magnesium 1.9 mg/dl (1.7-2.4)
[2024-06-11] MEDS: ALBUT/IPRATROP 3MG/0.5MG NEB 3 ML VIAL NEB PRN (07:10)
--- NOTE | 2024-06-11 07:49 | Medical Student Progress Note ---
Date of Service June 11, 2024 Assessment & Plan (1) Acute exacerbation of chronic obstructive pulmonary disease (COPD): Plan: Patient is a 68 year old female with a PMH of COPD on 2.5L baseline O2, adrenal insufficiency, GERD, anxiety, and an unprovoked PE on Xarelto, who presented to the hospital for worsening SOB. Physical examination demonstrated SOB accompanied by expiratory wheeze and accessory muscle use. -CXR: No acute abnormalities. Focal scarring and calcifications similar to previous CXR. -Abnormal EKG, unchanged from previous EKG Labs: -Leukocytes slightly low -VBG pCO2 elevated -Procalcitonin negative -blood cultures pending Plan: -Albuterol 3mg Q6R PRN -Umeclidinium/vilanterol 1 puff daily -Restart Lorazepam 0.5mg -encourage incentive spirometry -discontinue cefepime, continue azithromycin (2) Adrenal insufficiency: Plan: -Hydrocortisone sodium succinate 50mg IV Q6H Admission and Anticipated Discharge Date Admission Date: June 10, 2024 Supervising Attestation Attending Physician Supervision Note: I saw the patient with Jose Albert and independently interviewed and examined the patient and verified the patel history and physical, reviewed labs and image studies and agree with findings and care plan noted above. Visited twice this morning. Breathing with some improvement since admission No chest pain. Reviewed pulmonary consultation from 2020 AAOx3, sitting upright in bed, bilateral decreased breath sounds, RRR Acute on chronic hypoxic respiratory failure - due to COPD exacerbation. also with baseline hypercapnia. Also with prior history of sarcoidosis. Not a contributor at this time. Known bronchiectasis history -Per previous CT scans. -Continue high flow oxygen to keep SaO2 88-90. Acute COPD exacerbation- Pro-Shekhar negative. Respiratory panel negative -Continue IV steroids (started on hydrocortisone for adrenal insufficiency - will continue), albuterol nebulizer, umeclidinium/vilanterol inhaler -Continue azithromycin -DC cefepime -With worsening or lack of improvement - consider pulmonology consult for further input Adrenal insufficiency-hydrocortisone burst as listed above Mild troponin elevation-likely from demand ischemia Lactate elevation -no concern of acute bacterial infection. Possibly due to poor perfusion secondary to pulmonary pathology. Chronic cor pulmonale -continue oxygen supplementation History of multiple PE -continue rivaroxaban Rivaroxaban Subjective Patient is a 68 year old female with a PMH of COPD on 2.5L baseline O2, adrenal insufficiency, GERD, anxiety, and an unprovoked PE on Xarelto, who presented to the hospital for worsening SOB. She states her breathing overall has been declining over the last several months. She used to use oxygen at home as needed; however, she has needed oxygen 24/7 at 2.5L over the last three months. She has a history of COPD exacerbations and states this event feels very similar to those other events. She has a 30-35 pack year history and needs several albuterol doses daily at baseline. She also notes rib pain/fatigue from use of accessory muscles during breathing as well as epigastric pain. She has a history of anxiety and feels very anxious about being SOB and in the hospital. Review of Systems Review of Systems: Constitutional Denies fever, chills, HEENT States she is having slight blurry vision and a dry throat making it hard to swallow food. Denies head pain, headaches. Denies eye pain, vision loss/changes, double vision. Denies ear pain, and hearing loss. Respiratory Is experiencing SOB and a dry cough, Denies sputum production, pleuritic chest pain, wheezing CV Denies chest pain, heart palpitations, tachycardia, bradycardia, edema GI Has some pain in the epigastric region. Otherwise Denies abdominal pain, constipation, diarrhea, nausea, vomiting, hematochezia Denies dysuria, increased urinary frequency, hematuria MSK Experiencing rib pain from breathing, otherwise Denies joint pain, muscle pain, decreased ROM, Neuro Denies altered mental status, slurred speech, numbness or tingling Psych She feels very anxious from the whole situation. Physical Exam Physical Exam: General: Alert and oriented X3, well appearing and in no acute distress HEENT: Normocephalic, atraumatic, PERRLA, moist mucous membranes, neck is supple, trachea midline, no lymphadenopathy or thyromegaly appreciated Respiratory: Expiratory wheezes auscultated in all lobes. Accessory muscle use recruited for breathing. Cardiovascular: Heart RRR without murmurs, rubs, or gallops. No JVD, or lower extremity edema. + distal pulse palpated in all four extremities Abdomen: Abdomen is soft, nontender, nondistended. No hepatosplenomegaly appreciated. Normoactive bowel sounds. Neurologic: Cranial nerves grossly intact No focal neurologic deficits. Psychiatric: Appears anxious about being in the hosptial. Results & Data Vital Signs (Past 12 Hours) Vital Signs Temp Pulse Pulse Resp BP BP Pulse Ox 06/11/24 07:11 89 26 H 94 06/11/24 07:10 97 H 28 H 95 06/11/24 04:11 36.5 C 95 H 18 111/67 94 06/11/24 01:18 80 18 97 06/11/24 00:23 36.6 C 90 18 94/58 L 97 06/10/24 23:14 06/10/24 21:46 90 06/10/24 20:48 94 H 06/10/24 20:47 36.5 C 97 H 22 133/77 94 06/10/24 20:12 96 H 22 98/67 L 94 O2 Del Method O2 Flow Rate FiO2 06/11/24 07:11 High Flow Nasal Cannula 20 40 06/11/24 07:10 Nasal Cannula 5 06/11/24 04:11 Nasal Cannula 4.5 06/11/24 01:18 Nasal Cannula 5 06/11/24 00:23 Nasal Cannula 06/10/24 23:14 Nasal Cannula 5 06/10/24 21:46 06/10/24 20:48 06/10/24 20:47 Nasal Cannula 2 06/10/24 20:12 Nasal Cannula 5 Resident Activity Tracking Resident Involvement: Resident Care Provided Care Provided: Adult Hospital Medicine
[2024-06-11] MEDS: LORazepam 0.5 MG TAB PO STA (08:31)
[2024-06-11] MEDS: ROSUVASTATIN CALCIUM 5 MG TAB PO SCH (08:32)
[2024-06-11] MEDS: PANTOprazole 40 MG TAB PO SCH (08:32)
[2024-06-11] MEDS: AZITHROMYCIN 250 MG TAB PO SCH (08:32)
[2024-06-11] MEDS: ESCITALOPRAM OXALATE 10 MG TAB PO SCH (08:32)
[2024-06-11] MEDS: UMECLIDINIUM/VILANTEROL 62.5/25MCG 7 PUFFS/INHALER INH SCH (09:42)
[2024-06-11] MEDS: LORazepam 0.5 MG TAB PO PRN (21:34)
[2024-06-12 06:59] LABS: Basophils # (auto) 0.02 K/uL (0.00-0.20); Basophils % (auto) 0.3 %; Hematocrit (blood only) 39.6 % (37.0-47.0); Hemoglobin 13.3 g/dl (12.0-16.0); Immature Granulocytes # (auto) 0.02 K/uL (0.01-0.20); Immature Granulocytes % (auto) 0.3 %; Lymphocytes # (auto) 1.27 K/uL (1.20-3.40); Lymphocytes % (auto) 17.3 %; Mean Corpuscular Hemoglobin 30.2 pg (25.0-34.0); Mean Corpuscular Hgb Conc 33.6 g/dL (32.0-36.0); Mean Corpuscular Volume 89.8 fL (80.0-100.0); Mean Platelet Volume 10.2 fL (9.4-12.4); Monocytes # (auto) 0.46 K/uL (0.11-0.59); Monocytes % (auto) 6.3 %; Neutrophils # (auto) 5.57 K/uL (1.40-6.50); Neutrophils % (auto) 75.8 %; Platelet Count 179 K/uL (130-400); RDW Standard Deviation 49.9 fL (36.4-46.3); Red Blood Count 4.41 M/uL (4.20-5.40); White Blood Count 7.34 K/ul (4.8-10.8)
[2024-06-12 07:23] LABS: BUN Creatinine Ratio 36.8 (10-20); Calcium 9.3 mg/dl (8.6-10.3); Creatinine Clr Calc Pharmacy 77.1 ml/min; Potassium 3.9 mmol/L (3.5-5.1)
[2024-06-12] MEDS: ALBUT/IPRATROP 3MG/0.5MG NEB 3 ML VIAL NEB SCH (11:13)
--- NOTE | 2024-06-12 13:02 | Medical Student Progress Note ---
Date of Service June 12, 2024 Assessment & Plan (1) Acute exacerbation of chronic obstructive pulmonary disease (COPD): Plan: Patient is a 68 year old female with a PMH of COPD on 2.5L baseline O2, adrenal insufficiency, GERD, anxiety, and an unprovoked PE on Xarelto, who presented to the hospital for worsening SOB. Physical examination demonstrated SOB accompanied by expiratory wheeze and accessory muscle use. Overall, she has improved from yesterday. Her oxygen flow rate has been decreased from 20 to 6. -CXR: No acute abnormalities. Focal scarring and calcifications similar to previous CXR. -Abnormal EKG, unchanged from previous EKG Labs: -Leukocytes improved from yesterday -VBG pCO2 elevated -Procalcitonin negative -blood cultures no prelim growth after 24 hrs. -BUN: 21 -Creatinine:0.57 -BUN/Creatinine ratio: 36.8 Plan: -Albuterol 3mg Q6R PRN -Umeclidinium/vilanterol 1 puff daily -Restart Lorazepam 0.5mg -encourage incentive spirometry -discontinue cefepime, continue azithromycin (2) Adrenal insufficiency: Plan: -Hydrocortisone sodium succinate 50mg IV Q6H Admission and Anticipated Discharge Date Admission Date: June 10, 2024 Supervising Attestation Attending Physician Supervision Note: I saw the patient with Jose Albert and independently interviewed and examined the patient and verified the patel history and physical, reviewed labs and image studies and agree with findings and care plan noted above. Breathing with some improvement since admission No chest pain. AAOx3, sitting upright in chair, bilateral diffuse wheezing, air entry better, RRR Ravi in place (d/t significant dyspnea with getting out of bed) Acute on chronic hypoxic respiratory failure - due to COPD exacerbation. On 2L O2 at home. also with baseline hypercapnia. Also with prior history of sarcoidosis. Not a contributor at this time. Known bronchiectasis history -Per previous CT scans. -Continue oxygen supplementation to keep SaO2 88-92. Acute COPD exacerbation- Pro-Shekhar negative. Respiratory panel negative -Continue IV steroids (started on hydrocortisone for adrenal insufficiency - will continue), -Continue albuterol nebulizer, umeclidinium/vilanterol inhaler (also on pulmicort inhaler at home) -Continue azithromycin Adrenal insufficiency-hydrocortisone burst as listed above Mild troponin elevation-likely from demand ischemia Lactate elevation -no concern of acute bacterial infection. Possibly due to poor perfusion secondary to pulmonary pathology. Chronic cor pulmonale -continue oxygen supplementation History of multiple PE -continue rivaroxaban Rivaroxaban Subjective Patient is a 68 year old female with a PMH of COPD on 2.5L baseline O2, adrenal insufficiency, GERD, anxiety, and an unprovoked PE on Xarelto, who presented to the hospital for worsening SOB. She states her breathing overall has been declining over the last several months. She used to use oxygen at home as needed; however, she has needed oxygen 24/7 at 2.5L over the last three months. She has a history of COPD exacerbations and states this event feels very similar to those other events. She has a 30-35 pack year history and needs several albuterol doses daily at baseline. Her rib pain/fatigue from use of accessory muscles during breathing has improved. She does not feel as SOB. She is still a little anxious regarding her hospital stay but has overall improved as well. Review of Systems Review of Systems: Constitutional Denies fever, chills, malaise HEENT Denies head pain, headaches. Denies eye pain, vision loss/changes, blurry vision, double vision. Denies ear pain and hearing loss. Denies sore throat or sore neck or sinus pain. Respiratory SOB improving and still has a dry cough, Denies sputum production, pleuritic chest pain, wheezing CV Denies chest pain, heart palpitations, tachycardia, bradycardia, edema GI Denies abdominal pain, constipation, diarrhea, nausea, vomiting, hematochezia Denies dysuria, increased urinary frequency, hematuria MSK Denies joint pain, muscle pain, decreased ROM, Neuro Denies altered mental status, slurred speech, numbness or tingling Psych Still experiencing anxiety in regards to her stay. Physical Exam Physical Exam: General: Alert and oriented X3, well appearing and in no acute distress HEENT: Normocephalic, atraumatic, PERRLA, moist mucous membranes, neck is supple, trachea midline, no lymphadenopathy or thyromegaly appreciated Respiratory: Expiratory wheeze in all lobes. Cardiovascular: Heart has RRR without murmurs, rubs, or gallops. No lower extremity edema. Abdomen: Abdomen is soft, nontender, nondistended. No hepatosplenomegaly appreciated. Normoactive bowel sounds. Neurologic: CN II-XII grossly intact. No focal abnormalities. Psychiatric: Less anxious than she was upon admission. Still anxious about the temp of room. Results & Data Vital Signs (Past 12 Hours) Vital Signs Temp Pulse Resp BP Pulse Ox O2 Del Method O2 Flow Rate 06/12/24 07:34 36.7 C 77 19 122/67 93 High Flow Nasal Cannula 20 06/12/24 07:30 67 17 95 High Flow Nasal Cannula 20 06/12/24 04:39 63 16 96 High Flow Nasal Cannula 20 06/12/24 02:51 36.6 C 85 20 131/76 94 High Flow Nasal Cannula 06/11/24 23:15 62 17 96 High Flow Nasal Cannula 20 06/11/24 22:43 36.7 C 83 18 111/64 97 High Flow Nasal Cannula 06/11/24 22:16 High Flow Nasal Cannula 06/11/24 20:02 17 93 High Flow Nasal Cannula 20 06/11/24 20:00 60 17 93 High Flow Nasal Cannula 20 FiO2 06/12/24 07:34 40 06/12/24 07:30 40 06/12/24 04:39 40 06/12/24 02:51 06/11/24 23:15 40 06/11/24 22:43 06/11/24 22:16 06/11/24 20:02 40 06/11/24 20:00 40 Resident Activity Tracking Resident Involvement: Resident Care Provided Care Provided: Adult Hospital Medicine
[2024-06-13 06:22] LABS: Basophils # (auto) 0.02 K/uL (0.00-0.20); Basophils % (auto) 0.3 %; Hematocrit (blood only) 39.8 % (37.0-47.0); Hemoglobin 13.6 g/dl (12.0-16.0); Immature Granulocytes # (auto) 0.02 K/uL (0.01-0.20); Immature Granulocytes % (auto) 0.3 %; Lymphocytes # (auto) 1.41 K/uL (1.20-3.40); Lymphocytes % (auto) 20.9 %; Mean Corpuscular Hemoglobin 30.6 pg (25.0-34.0); Mean Corpuscular Hgb Conc 34.2 g/dL (32.0-36.0); Mean Corpuscular Volume 89.4 fL (80.0-100.0); Monocytes # (auto) 0.46 K/uL (0.11-0.59); Monocytes % (auto) 6.8 %; Neutrophils # (auto) 4.83 K/uL (1.40-6.50); Neutrophils % (auto) 71.7 %; Platelet Count 189 K/uL (130-400); RDW Coefficient of Variation 14.6 % (11.5-14.5); RDW Standard Deviation 47.5 fL (36.4-46.3); Red Blood Count 4.45 M/uL (4.20-5.40); White Blood Count 6.74 K/ul (4.8-10.8)
[2024-06-13 06:41] LABS: BUN Creatinine Ratio 38.3 (10-20); Calcium 9.1 mg/dl (8.6-10.3); Creatinine Clr Calc Pharmacy 73.2 ml/min; Potassium 3.8 mmol/L (3.5-5.1)
--- NOTE | 2024-06-13 09:11 | Medical Student Progress Note ---
Date of Service June 13, 2024 Assessment & Plan (1) Acute exacerbation of chronic obstructive pulmonary disease (COPD): Plan: Patient is a 68 year old female with a PMH of COPD on 2.5L baseline O2, adrenal insufficiency, GERD, anxiety, and an unprovoked PE on Xarelto, who presented to the hospital for worsening SOB. Physical examination demonstrated SOB accompanied by expiratory wheeze and accessory muscle use. Overall, she has been improving. Her oxygen flow rate has been decreased down to 4L/min. -CXR: No acute abnormalities. Focal scarring and calcifications similar to previous CXR. -Abnormal EKG, unchanged from previous EKG Plan: -Albuterol 3mg Q6R PRN -Umeclidinium/vilanterol 1 puff daily -Continue Lorazepam 0.5mg for anxiety -encourage incentive spirometry -Continue azithromycin -We to encourage ambulation. At this point, her SOB has decreased enough for her to utilize the toilet in her room. Catheter can be discontinued this evening. -Discontinue catheter (2) Adrenal insufficiency: Plan: SOB has significantly decreased. Begin decreasing steroid dosage. -Hydrocortisone sodium succinate 50mg IV BID (3) Tremor: Plan: Patient is experiencing an undifferentiated tremor of the lower extremities bilaterally. She states it is occurring most of the time but does occasionally disappear. She also has abnormal movement of the right hand that resembles a pill-roll tremor. The plan is to begin decreasing her steroid dosage to her at home dosage. Differential: -Steroid side effect -Anxiety induced -Essential tremor. Admission and Anticipated Discharge Date Admission Date: June 10, 2024 Supervising Attestation Attending Physician Supervision Note: I saw the patient with Jose Albert and independently interviewed and examined the patient and verified the patel history and physical, reviewed labs and image studies and agree with findings and care plan noted above. Continued improvement in breathing since admission AAOx3, sitting upright in chair, wheezing improving, air entry better, RRR Leg jerking + Ravi in place (d/t significant dyspnea with getting out of bed) Acute on chronic hypoxic respiratory failure - due to COPD exacerbation. On 2L O2 at home. also with baseline hypercapnia. Also with prior history of sarcoidosis. Not a contributor at this time. Known bronchiectasis history -Per previous CT scans. Improving- -Continue oxygen supplementation to keep SaO2 88-92. Acute COPD exacerbation- Pro-Shekhar negative. Respiratory panel negative -Continue IV steroids (started on hydrocortisone for adrenal insufficiency - will continue), wean to bid dose - should help with leg jerking. -Continue albuterol nebulizer, umeclidinium/vilanterol inhaler (also on pulmicort inhaler at home) -Continue azithromycin Adrenal insufficiency-hydrocortisone burst as listed above Mild troponin elevation-likely from demand ischemia Lactate elevation -no concern of acute bacterial infection. Possibly due to poor perfusion secondary to pulmonary pathology. Chronic cor pulmonale -continue oxygen supplementation History of multiple PE -continue rivaroxaban Rivaroxaban Assess for discharge in am. Subjective Patient is a 68 year old female with a PMH of COPD on 2.5L baseline O2, adrenal insufficiency, GERD, anxiety, and an unprovoked PE on Xarelto, who presented to the hospital for worsening SOB. She states her breathing overall has been declining over the last several months. She used to use oxygen at home as needed; however, she has needed oxygen 24/7 at 2.5L over the last three months. She has a history of COPD exacerbations and states this event feels very similar to those other events. She has a 30-35 pack year history and needs several albuterol doses daily at baseline. Her rib pain/fatigue from use of accessory muscles during breathing has improved. She does not feel as SOB. She is still a little anxious regarding her hospital stay but has overall improved as well. Her only new concern is movement/twitching of her legs. This has been going on all morning and maybe some last night. If she focuses on stopping the movement, she can stop the twitch. She has never noticed this occurrence before her hospital stay. She also has some abnormal movement of her right hand/fingers. She states this has been going on for months. She has also developed some diarrhea since yesterday. Review of Systems Review of Systems: Constitutional Denies fever, malaise HEENT Denies head pain, headaches. Denies eye pain, vision loss/changes, blurry vision, double vision. Denies ear pain and hearing loss. Denies sore throat or sore neck or sinus pain. Respiratory SOB improving and still has a dry cough, Denies sputum production, pleuritic chest pain, wheezing CV Denies chest pain, heart palpitations, tachycardia, bradycardia, edema GI She has developed some diarrhea since yesterday. Denies abdominal pain, constipation, nausea, vomiting, hematochezia Denies dysuria, increased urinary frequency, hematuria MSK Denies joint pain, muscle pain, decreased ROM, Neuro She is experiencing shaking/tremor of her legs. Denies altered mental status, slurred speech, numbness or tingling Psych Still experiencing anxiety in regards to her stay. Physical Exam Physical Exam: General: Alert and oriented X3, well appearing and in no acute distress HEENT: Normocephalic, atraumatic, PERRLA, moist mucous membranes, neck is supple, trachea midline, no lymphadenopathy or thyromegaly appreciated Respiratory: Expiratory wheeze in all lobes, but this has improved since the day of her admission. Cardiovascular: Heart has RRR without murmurs, rubs, or gallops. No lower extremity edema. Abdomen: Abdomen is soft, nontender, nondistended. No hepatosplenomegaly appreciated. Normoactive bowel sounds. Neurologic: CN II-XII grossly intact. She is having abnormal bilateral LE jerking movements. No other focal abnormalities. Psychiatric: Less anxious than she was upon admission. Anxiety could be contributing to her leg movements. Results & Data Vital Signs (Past 12 Hours) Vital Signs Temp Pulse Pulse Resp BP Pulse Ox O2 Del Method 06/13/24 07:45 37.0 C 77 19 126/71 94 Nasal Cannula 06/13/24 06:28 76 22 96 Nasal Cannula 06/13/24 02:46 36.6 C 88 18 110/67 94 Nasal Cannula 06/12/24 22:39 36.9 C 83 18 100/60 94 Nasal Cannula 06/12/24 21:45 81 O2 Flow Rate 06/13/24 07:45 4 06/13/24 06:28 5 06/13/24 02:46 4 06/12/24 22:39 5 06/12/24 21:45
[2024-06-13] MEDS: HYDROCORTISONE SOD 50 MG in SYRINGE 0 ML IV SCH (20:44)
--- NOTE | 2024-06-14 08:42 | Medical Student Progress Note ---
Date of Service June 14, 2024 Assessment & Plan (1) Acute exacerbation of chronic obstructive pulmonary disease (COPD): Plan: Patient is a 68 year old female with a PMH of COPD on 2.5L baseline O2, adrenal insufficiency, GERD, anxiety, and an unprovoked PE on Xarelto, who presented to the hospital for worsening SOB. Physical examination demonstrated SOB accompanied by expiratory wheeze and accessory muscle use. Overall, she has been improving. Her oxygen flow rate has been decreased down to 3L/min. -CXR: No acute abnormalities. Focal scarring and calcifications similar to previous CXR. -Abnormal EKG, unchanged from previous EKG Plan: -Albuterol 3mg Q6R PRN -Umeclidinium/vilanterol 1 puff daily -Continue Lorazepam 0.5mg for anxiety -encourage incentive spirometry -Continue azithromycin (2) Adrenal insufficiency: Plan: SOB has significantly decreased. Begin decreasing steroid dosage. -Hydrocortisone sodium succinate 50mg IV BID (3) Tremor: Plan: Patient is experiencing an undifferentiated tremor of the lower extremities bilaterally. She states it is occurring most of the time but does occasionally disappear. Her leg jerking decreases during parts of the physical exam such as during lung auscultation and increases while examining the lower extremities. Leg movement decreases while observing her from outside of the room. Yesterday, she also had abnormal movement of the right hand that resembled a pill-roll tremor. However, there was no abnormal movements of either upper extremity today. Of note, she is quite anxious/concerned about being discharged too early and ending up back in the hospital. The abnormal movement is likely due to a combination of her adrenergic meds along with her active anxiety. Continue to monitor. The plan is to begin decreasing her steroid dosage to her at home dosage. Differential: -Anxiety induced -Steroid side effect -Essential tremor. Admission and Anticipated Discharge Date Admission Date: June 10, 2024 Supervising Attestation Attending Physician Supervision Note: I saw the patient with Jose Albert and independently interviewed and examined the patient and verified the patel history and physical, reviewed labs and image studies and agree with findings and care plan noted above. Breathing has improved. Doesn't feel that she is ready to be discharged yet. AAOx3, sitting upright in chair, wheezing improving, air entry better, RRR Leg jerking + Acute on chronic hypoxic respiratory failure - due to COPD exacerbation. On 2L O2 at home. also with baseline hypercapnia. Also with prior history of sarcoidosis. Not a contributor at this time. Known bronchiectasis history -Per previous CT scans. Improving- -Continue oxygen supplementation to keep SaO2 88-92. Acute COPD exacerbation- Pro-Shekhar negative. Respiratory panel negative -Continue IV steroids (started on hydrocortisone for adrenal insufficiency - will continue), weaning dose. -Continue albuterol nebulizer, umeclidinium/vilanterol inhaler (also on pulmicort inhaler at home) -Continue azithromycin Adrenal insufficiency-hydrocortisone burst - now weaning. Leg jerking - sec to steroids(now weaning)/nebs/anxiety. Follow. Mild troponin elevation-likely from demand ischemia Lactate elevation -no concern of acute bacterial infection. Possibly due to poor perfusion secondary to pulmonary pathology. Chronic cor pulmonale -continue oxygen supplementation History of multiple PE -continue rivaroxaban Rivaroxaban Assess for discharge in am. Subjective Patient is a 68 year old female with a PMH of COPD on 2.5L baseline O2, adrenal insufficiency, GERD, anxiety, and an unprovoked PE on Xarelto, who presented to the hospital for worsening SOB. She states her breathing overall has been declining over the last several months. She used to use oxygen at home as needed; however, she has needed oxygen 24/7 at 2.5L over the last three months. She has a history of COPD exacerbations and states this event feels very similar to those other events. She has a 30-35 pack year history and needs several albuterol doses daily at baseline. Her rib pain/fatigue from use of accessory muscles during breathing has improved. She does not feel as SOB. She is still a little anxious regarding her hospital stay but has overall improved as well. Her only new concern is movement/twitching of her legs. This has been going on since morning. If she focuses on stopping the movement, she can stop the twitch. She has never noticed this occurrence before her hospital stay. She also has some abnormal movement of her right hand/fingers. She states this has been going on for months. Review of Systems Review of Systems: Constitutional Denies fever, malaise HEENT Denies head pain, headaches. Denies eye pain, vision loss/changes, blurry vision, double vision. Denies ear pain and hearing loss. Denies sore throat or sore neck or sinus pain. Respiratory SOB improving and still has a dry cough, Denies sputum production, pleuritic chest pain, wheezing CV Denies chest pain, heart palpitations, tachycardia, bradycardia, edema GI She has developed some diarrhea. Denies abdominal pain, constipation, nausea, vomiting, hematochezia Denies dysuria, increased urinary frequency, hematuria MSK Denies joint pain, muscle pain, decreased ROM, Neuro She is experiencing shaking/tremor of her legs. Denies altered mental status, slurred speech, numbness or tingling Psych Still experiencing anxiety in regards to her stay. Physical Exam Physical Exam: General: Alert and oriented X3, well appearing and in no acute distress HEENT: Normocephalic, atraumatic, PERRLA, moist mucous membranes, neck is supple, trachea midline, no lymphadenopathy or thyromegaly appreciated Respiratory: Expiratory wheeze in all lobes, but this has improved since the day of her admission. Cardiovascular: Heart has RRR without murmurs, rubs, or gallops. No lower extremity edema. Abdomen: Abdomen is soft, nontender, nondistended. No hepatosplenomegaly appreciated. Normoactive bowel sounds. Neurologic: CN II-XII grossly intact. She is having abnormal bilateral LE jerking movements. These movements decrease during other aspects of the physical exam such as lung auscultation. No other focal abnormalities. Psychiatric: Less anxious than she was upon admission. Anxiety could be contributing to her leg movements. Results & Data Vital Signs (Past 12 Hours) Vital Signs Temp Pulse Pulse Resp BP Pulse Ox O2 Del Method 06/14/24 07:01 71 18 96 Nasal Cannula 06/14/24 02:52 36.7 C 79 18 120/63 96 Nasal Cannula 06/13/24 23:09 36.7 C 84 16 99/63 L 95 Nasal Cannula 06/13/24 22:00 76 06/13/24 20:01 36.6 C 75 19 115/70 98 Nasal Cannula 06/13/24 20:00 Nasal Cannula 06/13/24 19:33 77 19 97 Nasal Cannula O2 Flow Rate 06/14/24 07:01 3 06/14/24 02:52 3.0 06/13/24 23:09 4.0 06/13/24 22:00 06/13/24 20:01 4.0 06/13/24 20:00 4 06/13/24 19:33 3
[2024-06-14] MEDS: ACETAMINOPHEN 500 MG TAB PO PRN (08:49)
[2024-06-15] MEDS: HYDROCORTISONE SOD 25 MG in SYRINGE 0 ML IV SCH (09:08)
--- NOTE | 2024-06-15 10:03 | Hospitalist Progress Note ---
Date of Service June 15, 2024 Assessment & Plan (1) Acute exacerbation of chronic obstructive pulmonary disease (COPD): Plan: Patient is a 68 year old female with a PMH of COPD on 2.5-3L baseline O2, adrenal insufficiency, GERD, anxiety, and an unprovoked PE on Xarelto, who presented to the hospital for worsening SOB. Overall, she has been improving. Her oxygen flow rate has been decreased down to 3L/min, her baseline. -CXR: No acute abnormalities. Focal scarring and calcifications similar to previous CXR. -Abnormal EKG, unchanged from previous EKG -Albuterol 3mg Q6R PRN -Umeclidinium/vilanterol 1 puff daily -Continue Lorazepam 0.5mg PRN for anxiety -encourage incentive spirometry -Continue azithromycin day / (2) Adrenal insufficiency: Plan: SOB has significantly decreased. Continue decreasing steroid dosage. -Hydrocortisone 25mg BID -Home dose 15mg qAM, 5mg HS (3) Tremor: Plan: This is likely 2/2 anxiety When patient is distracted during exam tremor ceases Admission and Anticipated Discharge Date Admission Date: June 10, 2024 Supervising Physician Co-Signing Physician Notes Attending Physician Supervision Note: I saw the patient with Jose Albert and independently interviewed and examined the patient and verified the patel history and physical, reviewed labs and image studies and agree with findings and care plan noted above. Breathing has improved. Doesn't feel that she is ready to be discharged yet. Worried about going home early and then having to return home. AAOx3, sitting upright in chair, air entry better, no rhonchi, RRR Leg jerking + Acute on chronic hypoxic respiratory failure - due to COPD exacerbation. On 2L O2 at home. also with baseline hypercapnia. Also with prior history of sarcoidosis. Not a contributor for current presentation. Known bronchiectasis history -Per previous CT scans. Improving- -Continue oxygen supplementation to keep SaO2 88-92. Acute COPD exacerbation- Pro-Shekhar negative. Respiratory panel negative -Continue IV steroids - weaning dose. Transition to home dose hydrocortisone tomorrow. -Continue albuterol nebulizer, umeclidinium/vilanterol inhaler (also on pulmicort inhaler at home) -finished course of azithromycin Adrenal insufficiency-hydrocortisone burst - now weaning. Leg jerking - sec to steroids(now weaning)/nebs/anxiety. Follow. Mild troponin elevation-likely from demand ischemia Lactate elevation -no concern of acute bacterial infection. Likely from poor perfusion secondary to pulmonary pathology. Chronic cor pulmonale -continue oxygen supplementation History of multiple PE -continue rivaroxaban Rivaroxaban Assess for discharge in am. Subjective Patient seen and evaluated at bedside this morning. No acute events overnight. Patient remains anxious to return home despite respiratory status at baseline. Review of Systems Review of Systems: reviewed, per HPI Physical Exam Physical Exam: Constitutional: age appropriate, no acute distress HEENT: NCAT, no conjunctival injection CV: regular rhythm, extremities well-perfused, no LE edema Resp: breath sounds diminished throughout, no wheeze appreciated GI: nondistended MSK: no gross deformities appreciated Skin: warm, dry, no rash appreciated Neuro: alert, oriented, no focal neurologic deficit appreciated Results & Data Results & Data Vital Signs (Past 12 Hours) Vital Signs Temp Pulse Pulse Resp BP Pulse Ox O2 Del Method 06/15/24 08:06 37.0 C 83 19 107/58 L 96 Nasal Cannula 06/15/24 06:58 74 18 97 Nasal Cannula 06/15/24 03:20 36.8 C 72 18 107/62 97 Nasal Cannula 06/14/24 23:42 36.7 C 75 18 99/51 L 95 Nasal Cannula 06/14/24 23:07 74 O2 Flow Rate 06/15/24 08:06 3 06/15/24 06:58 3 06/15/24 03:20 3.0 06/14/24 23:42 3.0 06/14/24 23:07 Resident Activity Tracking Resident Involvement: Resident Care Provided Care Provided: Adult Hospital Medicine
[2024-06-15] MEDS ORDERED: POLYETHYLENE (MIRALAX) 17 GM PACK PO PRN (10:39)
[2024-06-15] MEDS: POLYETHYLENE (MIRALAX) 17 GM PACK PO ONE (12:08)
[2024-06-16 07:29] VITALS: RESP 19; TEMP 98.2
[2024-06-16] MEDS: HYDROCORTISONE SOD 25 MG in SYRINGE 0 ML IV SCH (08:47)
--- NOTE | 2024-06-16 10:12 | Discharge Summary ---
Date of Service June 16, 2024 Admission HPI Per Admitting Provider Pt is a 68 yo female with a past medical history of COPD on 2.5L baseline O2, adrenal insufficiency on hydrocortisone 15 mg am and 5 mg pm, chronic back pain, GERD, and hx unprovoked PE on xarelto who presents to the hospital on 06/10 for acutely worsening SOB. Pt states that about 4 days ago she noticed worsening SOB on her baseline amount of oxygen. No URI symptoms other than dry cough. She states that yesterday she felt the worst and is a bit better today compared to yesterday but still feels like it is very hard for her to get good breaths in. She states she has adrenal insufficiency and usually takes 15 mg qam and 5 mg qpm, yesterday doubled these doses. She states that this feels a lot like her previous COPD exacerbations that she has had in the past. Started smoking at age 22, quit for 13 years but restarted smoking about 5 years ago. She states at some point she was smoking 3 ppd but now is at 1 ppd. She also notes weight loss over the last year of about 30-40 lbs. She states she generally has no appetite. No nausea or vomiting, no abdominal pain, just no appetite. She notes some chest pain today as well that is across the chest that is very tender to palpation. Admission Exam Per Admitting Provider General: Alert and oriented, uncomfortable and anxious appearing with mildly increased resp effort HEENT: Normocephalic, moist oral mucosa, Cardio: Regular rate and rhythm, Resp: Very poor air movement with diffuse wheezing GI: Soft and nontender, nondistended, bowel sounds active Skin: Warm, pink, dry, Principal Diagnosis COPD exacerbation Discharge Exam Constitutional: age appropriate, no acute distress HEENT: NCAT, no conjunctival injection CV: regular rhythm, extremities well-perfused, no LE edema Resp: breath sounds diminished throughout, no wheeze appreciated GI: nondistended MSK: no gross deformities appreciated Skin: warm, dry, no rash appreciated Neuro: alert, oriented, no focal neurologic deficit appreciated Discharge Data Allergies Allergy/AdvReac Type Severity Reaction Status Date / Time No Known Allergies Allergy Verified 04/23/24 12:55 Consultations 06/10/24 16:16 ED Decision to Admit Stat Hospital Course (1) Acute exacerbation of chronic obstructive pulmonary disease (COPD): -CXR: No acute abnormalities. Focal scarring and calcifications similar to previous CXR. -Abnormal EKG, unchanged from previous EKG -Albuterol 3mg Q6R PRN -Umeclidinium/vilanterol 1 puff daily -Continue Lorazepam 0.5mg PRN for anxiety -Incentive spirometry - encourage continuation on discharge -Resume home medications at discharge (2) Adrenal insufficiency: Had stress dose steroids during hospitalization Weaned off Resume home dose on discharge (3) Tremor: This is likely 2/2 anxiety When patient is distracted during exam tremor ceases Total Time Total Time Spent Total Time Spent (In Minutes): see attending documentation Discharge Plan Discharge Items Patient Disposition: Home - Self-Care Reason For Visit: COPD EXAC,ADRENAL INSUFF Discharge Diagnosis: COPD exacerbation Activity: Resume your previous activity Activity Comment: as tolerated Non-emergency contact: Primary Care Provider and [employer] Business [employer] Developer Call non-emergency contact if: you have any medication questions and your symptoms worsen Follow-up/Referrals: Nichole Farfan CRNP [Primary Care Provider] - Stanford Baxter MD [Physician] - Diet: Heart Healthy Addtl Attending Provider Instructions: You were admitted to the hospital for COPD exacerbation. You were treated with steroids, breathing treatments and oxygen. You have returned to your baseline oxygen use. Your steroids were weaned and you can resume your usual home dose of hydrocortisone that you use for adrenal insufficiency. A discharge summary will be sent to your primary care physician to ensure continuity of care. Please bring this discharge summary with you to your next office appointment so that your provider can review it at that time. Follow-up appointments: Make a follow-up appointment with your PCP within the next week. It is very important that you follow up with them shortly after discharge from the hospital. Keep all your follow-up appointments as already scheduled. If you cannot make an appointment, notify your provider. Medications: Your medication list has been reviewed and reconciled upon discharge to ensure accuracy and continuity of care. An updated list of all your medications is included with your hospital discharge paperwork. Please review this list closely, and make note of any changes. Take your medications as instructed; do not skip a dose of your medicines. Make sure all of your doctors know every medicine you are taking (including [id number]-[id number] medicines, vitamins, and supplements). Call your primary care provider before taking any new medicines (including [id number] medicines, vitamins, and supplements), because some of these may interact with your current medications, or may make your symptoms worse. Tell your primary care provider if you cannot afford your medications. CONTACT YOUR PRIMARY CARE PROVIDER if you experience any of the following: Increased shortness of breath Difficulty following your treatment plan, or difficulty taking medications CALL 911 OR GO TO THE EMERGENCY DEPARTMENT if you experience any of the following: Sudden, severe abdominal pain or nausea/vomiting Severe chest pain, or chest pain that radiates (moves) to your jaw or arm Sudden, severe shortness of breath or difficulty breathing Thank you for allowing us to participate in your care. Pending Studies at Discharge: No Stand-Alone Forms: [facility] [employer], Smoking Cessation Medications and DC Order Prescriptions: Continued (DME) Therapist Evaluation for Power Mobility See Rx Instructions .Route .MEDSUPPLY Qty: 1 0RF Rx Instructions: Evaluate patient for necessity of power chair (DME) blood pressure monitor Kit See Rx Instructions .Route Qty: 1 0RF Rx Instructions: DIGITAL BLOOD PRESSURE MONITOR FOR UPPER ARM; CHECK DAILY AND PRN ondansetron 4 mg tablet,disintegrating 4 mg PO Q8 PRN (Reason: nausea) Qty: 20 1RF Rx Instructions: Take as needed for nausea trazodone 100 mg tablet 100 mg PO HS Qty: 90 3RF escitalopram oxalate 10 mg tablet 10 mg PO QAM Qty: 90 3RF albuterol sulfate [Ventolin HFA] 90 mcg/actuation HFA aerosol inhaler 2 puff inhalation QID PRN (Reason: Shortness Of Breath Or Wheezing) Qty: 18 11RF Xarelto 20 mg tablet 20 mg PO HS Qty: 30 5RF folic acid 1 mg tablet 1 mg PO DAILY Qty: 30 2RF gabapentin 300 mg capsule 300 mg PO BID Qty: 180 1RF hydrocortisone 5 mg tablet See Rx Instructions PO TID Qty: 180 5RF Rx Instructions: Take 15mg by mouth in the AM (5-6am), then taken 5mg in the afternoon (1-2pm ). In times of illness or severe emotional stress, double or triple the dose. benzonatate 100 mg capsule 100 mg PO TID PRN (Reason: cough) Qty: 30 1RF albuterol sulfate 2.5 mg /3 mL (0.083 %) solution for nebulization 2.5 mg INHALATION QID PRN (Reason: Shortness Of Breath Or Wheezing) Qty: 270 5RF rosuvastatin 5 mg tablet 5 mg PO QAM Qty: 90 3RF lorazepam [Ativan] 1 mg tablet 1 mg PO DAILY PRN (Reason: Anxiety) Qty: 30 2RF Anoro Ellipta 62.5-25 mcg/actuation blister with device 1 inh inhalation QAM Qty: 60 5RF (DME) Power Wheelchair Device See Rx Instructions .Route Qty: 1 0RF Rx Instructions: As directed (DME) Flutter Valve Device See Rx Instructions .ROUTE .MEDSUPPLY Qty: 1 0RF Rx Instructions: QID Solu-Cortef Act-O-Vial (PF) 100 mg/2 mL recon soln 75 mg IM ONCE PRN (Reason: severe adrenal insufficiency) Qty: 1 1RF tizanidine [Zanaflex] 4 mg tablet 4 mg PO BID pantoprazole 40 mg tablet,delayed release (DR/EC) 40 mg PO QAM acetaminophen [Tylenol Extra Strength] 500 mg tablet 1,000 mg PO TID PRN (Reason: pain) Pulmicort Flexhaler 90 mcg/actuation aerosol powdr breath activated INHALATION Discharge Orders: Discharge Order (Routine); Ordered 06/16/24 Ordered By: Earnest Philippe Admission Data Admit Date/Time: 06/10/24 17:27 Attending Provider: Nicolasa Koehler Admit Provider: Laura Kelsey Primary Care Provider: Nichole Farfan Other Providers: Aden Márquez Other Interventions: Discharge Summary Assessment (RN) Last Done: 06/16/24 11:56 Supervising Physician Co-Signing Physician Notes Attending Physician Supervision Note: I independently interviewed and examined the patient and verified the patel history and physical, reviewed labs and image studies and agree with findings and care plan noted above. Breathing improved to baseline. AAOx3, sitting upright in chair, air entry better, no rhonchi, RRR Leg jerking + Acute on chronic hypoxic respiratory failure - due to COPD exacerbation. On 2L O2 at home. also with baseline hypercapnia. Also with prior history of sarcoidosis. Not a contributor for current prese ntation. Known bronchiectasis history -Per previous CT scans. Back to baseline on discharge. Acute COPD exacerbation- Pro-Shekhar negative. Respiratory panel negative -Kept on IV steroid - weaned to home dose. -Continue albuterol nebulizer, umeclidinium/vilanterol inhaler (also on pulmicort inhaler at home) -finished course of azithromycin Adrenal insufficiency-hydrocortisone burst - weaning to home dose. Leg jerking - sec to anxiety. ambulating well. outpatient follow up. Mild troponin elevation-likely from demand ischemia Lactate elevation -no concern of acute bacterial infection. Likely from poor perfusion secondary to pulmonary pathology. Chronic cor pulmonale -continue oxygen supplementation History of multiple PE -continue rivaroxaban Rivaroxaban. Resident Activity Tracking Resident Involvement: Resident Care Provided Care Provided: Adult Hospital Medicine
[2024-06-16 10:44] VITALS: PULSE 77; O2SAT 95
[2024-06-16 11:57] VITALS: BP 104/60
== END 2024-06-16 12:57 | disposition home or self-care (01) | DRG 189 ==
LOC: SUATTDRO → ED 14:22 → SUATTDRO 17:27 → 2E 17:27

== ENCOUNTER 2024-07-31 21:47 | Inpatient (IN) ==
[2024-07-31] MEDS: SODIUM CHLORIDE 0.9% 500 ML IV ONE ×2 (22:09→22:25)
[2024-07-31] MEDS: KETAMINE HCL 10MG/ML SYR IV STA (22:09)
[2024-07-31] MEDS: ROCURONIUM BROMIDE 10 MG/ML 5 ML VIAL IV PRN (22:10)
[2024-07-31 22:12] LABS: Base Excess VBG 5.2 mEq/L; HCO3 VBG 35 mmol/L; Oxygen Saturation VBG < 60.0 %; PCO2 VBG 78 mmHg (38-50); PO2 VBG 31 mmHg; pH VBG 7.26 (7.36-7.41)
[2024-07-31] MEDS ORDERED: PROPOFOL BOLUS FROM BAG IV PRN (22:15)
[2024-07-31 22:27] LABS: Basophils # (auto) 0.06 K/uL (0.00-0.20); Basophils % (auto) 0.7 %; Eosinophils # (auto) 0.15 K/uL (0.00-0.50); Eosinophils % (auto) 1.9 %; Hemoglobin 14.3 g/dl (12.0-16.0); Immature Granulocytes # (auto) 0.03 K/uL (0.01-0.20); Immature Granulocytes % (auto) 0.4 %; Lymphocytes # (auto) 0.72 K/uL (1.20-3.40); Lymphocytes % (auto) 8.9 %; Mean Corpuscular Hgb Conc 33.3 g/dL (32.0-36.0); Mean Corpuscular Volume 96.2 fL (80.0-100.0); Mean Platelet Volume 9.7 fL (9.4-12.4); Monocytes # (auto) 0.56 K/uL (0.11-0.59); Neutrophils # (auto) 6.53 K/uL (1.40-6.50); Neutrophils % (auto) 81.1 %; Platelet Count 161 K/uL (130-400); RDW Coefficient of Variation 13.5 % (11.5-14.5); RDW Standard Deviation 48.4 fL (36.4-46.3); Red Blood Count 4.47 M/uL (4.20-5.40); White Blood Count 8.05 K/ul (4.8-10.8)
[2024-07-31] MEDS ORDERED: STAT IV Infusion **Titration per Protocol STA (22:28)
--- NOTE | 2024-07-31 22:28 | Emergency Department Note ---
Impression & Plan Respiratory failure, Acute exacerbation of chronic obstructive pulmonary disease, Influenza A, Hypoxia, Acute respiratory acidosis, Pneumonia ED Provider Note NAME: SHMUEL GAMA AGE: 68 SEX: F : 1955 ARRIVES VIA: Ambulance INFORMANT: Patient, EMS ED PROVIDER(S): Alan Aguilar DO CHIEF COMPLAINT: Shortness of breath HPI: The patient is a 68-year-old female who presented to the emergency department for an evaluation of difficulty breathing. The patient's had problems difficulty breathing and cough through the course of the day. Her called 911 because the patient became significantly worse. According to the prehospital personnel she was very lethargic. Oxygen saturation reportedly was in the 70s. The patient was treated with steroids as well as DuoNeb prior to arrival. The patient's condition has slowly improved. ROS: See above HPI for pertinent positives & negatives. A total of 10 systems reviewed and were otherwise negative. PAST MEDICAL HISTORY: See Below PAST SURGICAL HISTORY: See Below FAMILY HISTORY: See Below SOCIAL HISTORY: See Below HOME MEDICATIONS: See Below ALLERGIES: See Below VITALS: See Below PHYSICAL EXAMINATION: In GENERAL: The is listless and slow to respond to questioning. EYES: The conjunctivae are clear. The pupils are round and reactive. EARS, NOSE, MOUTH AND THROAT: The nose is without any evidence of any deformity. NECK: The neck is nontender and supple. RESPIRATORY: Diminished breath sounds are noted throughout with expiratory wheezing. There was significant tachypnea as well as retractions noted. CARDIOVASCULAR: Tachycardic and regular heart sounds were noted to auscultation. There is no definite murmur. GASTROINTESTINAL: The abdomen is soft. Abdomen is nontender. MUSCULOSKELETAL/EXTREMITIES: There is no evidence of gross deformity full range of motion is noted in the hips and shoulders. SKIN: Skin was cool and dry. NEUROLOGIC: Patient is awake loud verbal commands. Strength was symmetric. MEDICAL DECISION MAKING: The patient is a 68-year-old female who presented to the emergency department for shortness of breath. The patient was placed on BiPAP initially. She did not tolerate this well and had an episode of emesis. There was no obvious signs of aspiration but the patient does appear to have worsening findings on chest x- ray. She was treated with steroids prior to arrival. She was treated with bronchodilators prior to arrival but also treated with bronchodilator therapy by myself. The patient was treated with IV fluids and IV antibiotics. She was reevaluated multiple times. After the episode of emesis she was intubated in the usual fashion for airway protection. An OG tube was placed. I discussed the patient's condition with the ICU. I also discussed the patient's condition with the on-call [facility]. The patient continued to have hypotension. She was treated with sedation and this could be part of the reason but she was placed on pressors in the emergency department. A central line was placed. Triage Nursing notes reviewed. Prior medical records reviewed Vital Signs: reviewed and remarkable for hypotension. Differential diagnosis: Reactive airway disease, pneumonia, pneumothorax, COPD, CHF, infections, cardiac ischemia, pulmonary embolism, musculoskeletal, gastrointestinal, as well as other pathologies. ER treatment provided: See below Diagnostics interpreted by me: ECG: EKG was obtained in the emergency department. My interpretation is sinus tachycardia at 132 bpm. No PVCs were noted. Nonspecific ST segment abnormalities were noted. This was compared to a tracing from June 10, 2024. The ST segment abnormalities are increased otherwise no specific changes were noted. Cardiac Monitoring: An order was placed for continuous cardiac monitoring. The monitor shows a rate of 91 bpm with sinus rhythm. Laboratory studies: As stated above and show below. Imaging studies: See below. Radiographic imaging was reviewed by myself Consultation(s): I discussed this case with Mary who is on for the ICU. I discussed this case with Dr. Nunez who is on-call for the [facility] group. ED COURSE: Procedures: Endotracheal Intubation Indication resp failure. The patient was on 100% oxygen via NRB prior to the procedure. Suction, airway equipment, RSI drugs, respiratory equipment, and appropriate personnel were prepared prior to the initiation of the procedure. A time out was taken. Induction was performed with ketamine and rocuronium. After observing the clinical benefit of the medications, the airway was easily visualized utilizing a glide scope. A 7.5 size ETT tube was placed atraumatically to 23 cm using standard technique. The cuff inflated without signs of malfunction. There were bilateral breath sounds, positive colormetric change, no gastric sounds, a good capnography waveform, and post procedure pulse oximetry was 99%. Post intubation sedation and paralysis was administered using propofol. There were no complications. Femoral Central Venous Catheter Indication: Hypotension Catheter Type: Triple-lumen Location: Right femoral vein Verbal consent was obtained after the risks and benefits were explained, including but not limited to intra-abdominal injury, vessel injury, bleeding, scarring, infection, pain, and bone/joint/nerve damage. At this time, the risks of the procedure are less than the risks of NOT performing the procedure. A time out was taken and the correct patient and site identified. The patient was placed in the supine position and the skin was prepped in the standard fashion with chlorhexidine and full sterile drapes applied. The proper landmarks were identified with ultrasound, anesthetized with 1% lidocaine without epinephrine, and the needle was inserted through the skin in the standard fashion. The needle was carefully advanced into blood vessel lumen with ultrasound guidance. The guidewire was placed uneventfully. The vessel is dilated and the catheter was placed. It was sutured into position. There was good blood return from all ports. The patient tolerated the procedure well and there were no complications. Critical Care: I have personally spent greater than 45 minutes of critical care time in the direct management of this patient. This includes bedside care, interpretation of diagnostic studies, and testing, discussion with consultants, patient, and family members, and other required patient management activities. This 45 minutes is in excess of all separately billable procedures. 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 Avascular necrosis of bone of right hip Unintentional weight loss Vitamin D deficiency Right hip pain Pleural effusion Cough Bronchiectasis Other cervical disc degeneration, mid-cervical region, unspecified level Other kyphosis, thoracic region Balance problem Ambulatory dysfunction Dysphagia OLGUIN (dyspnea on exertion) (Acute) Decompensated COPD with exacerbation (chronic obstructive pulmonary disease) Lesion of skin of nose Compression fracture Rib pain Thoracic back pain Hyperlipidemia Thoracic radiculopathy Colon cancer screening Pneumonia (Acute) Hypoxia Back pain Compression fracture of body of thoracic vertebra T6, T7, T8 Cor pulmonale SOB (shortness of breath) Rib pain Back pain Anxiety and depression Osteoporosis Osteoarthritis of left shoulder Chronic obstructive pulmonary disease (Acute) Insomnia Low back pain Postinflammatory pulmonary fibrosis Depression Anxiety Tobacco use disorder Chronic respiratory failure 2 LPM oxygen PRN Follows with [facility] pulmonary COPD (chronic obstructive pulmonary disease) COPD/emphysema Breathing stable per patient Sarcoidosis Follows with [facility] pulmonary (pulmonary ) History of pulmonary embolism 2019: post-op shoulder replacement ~2020: unknown etiology Patient taking Xarelto Osteoporosis Anxiety with depression Medical History Elevated troponin Acute exacerbation of chronic obstructive pulmonary disease (COPD) Hypotension Scoliosis Surgical History History of esophagogastroduodenoscopy (EGD) History of lung biopsy History of bronchoscopy Hx of colonoscopy Hx of elbow surgery Right History of hip replacement Left PREETI (09/11/17): SAB x1 at L3-L4 at [facility] Family History Father Myocardial infarction Brother Anxiety COPD (chronic obstructive pulmonary disease) Daughter Anxiety Sister Breast cancer Other Diabetes Kidney disease No family history of adverse response to anesthesia Denies family history of Ovarian cancer Prostate cancer Colorectal cancer Social History Smoking Status: Unknown if ever smoked Tobacco Type: Cigarettes Age Started Using Tobacco: 22; packs per day: 0.75; Cigarettes Per Day: 1 ppd (advised on policy); Second Hand Exposure: Yes (in the past); Do You Dip or Chew Tobacco: No; Hx Alcohol Use: No Hx Substance Use: No Preferred Language: Yemeni Communication Ability: Effective Visual Impairment: No Limitations Hearing Ability: Normal Warp Splitter Required: No Beliefs That Will Affect Care: None marital status: Current Living Situation: Spouse Current Living Situation Comment: house current occupational status: retired and disabled 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 How many Children do You have: 2 Feels Safe at Home: Yes Childhood Exposure to Second-Hand Smoke: No Diet: regular Dental Care, Regularly: No Physical Activity Frequency: Does not Exercise Seatbelt Use: always Sunscreen Use: No (is not out in the sun much ) Assistive Devices: Cane, Oxygen - Continuous, Walker and Wheelchair Allergies Allergies Allergy/AdvReac Type Severity Reaction Status Date / Time No Known Allergies Allergy Verified 04/23/24 12:55 Home Meds Home Medications Medication Instructions Recorded Confirmed pantoprazole 40 mg tablet,delayed 40 mg PO QAM 07/04/23 06/10/24 release tizanidine 4 mg tablet (Zanaflex) 4 mg PO BID muscle spasticity 07/04/23 06/10/24 acetaminophen 500 mg tablet 1,000 mg PO TID PRN pain 03/02/24 06/10/24 (Tylenol Extra Strength) budesonide 90 mcg/actuation breath inhalation 06/12/24 activated powder inhaler (Pulmicort Flexhaler) Previous Rx's Medication Instructions Recorded Wheelchair (Powered) (Power #1 ea 01/12/23 Wheelchair) Therapist Evaluation for Power #1 ea 01/30/23 Mobility Flutter Valve #1 ea 06/23/23 blood pressure monitor #1 ea 07/11/23 ondansetron 4 mg disintegrating 4 mg PO Q8 PRN nausea #20 tabs 07/15/23 tablet trazodone 100 mg tablet 100 mg PO HS #90 tabs 10/11/23 escitalopram oxalate 10 mg tablet 10 mg PO QAM #90 tabs 10/27/23 albuterol sulfate 90 mcg/actuation 2 puff inhalation QID PRN 11/15/23 aerosol inhaler (Ventolin HFA) Shortness Of Breath Or Wheezing #18 grams rivaroxaban 20 mg tablet (Xarelto) 20 mg PO HS #30 tabs 02/01/24 hydrocortisone sod succ (PF) 100 75 mg (1.5 mL) IM ONCE PRN severe 03/12/24 mg/2 mL solution for injection adrenal insufficiency #1 ea (Solu-Cortef Act-O-Vial (PF)) folic acid 1 mg tablet 1 mg PO DAILY #30 tabs 03/27/24 gabapentin 300 mg capsule 300 mg PO BID #180 caps 04/29/24 hydrocortisone 5 mg tablet See Rx Instructions PO TID #180 05/08/24 tabs albuterol sulfate 2.5 mg/3 mL 2.5 mg (3 mL) inhalation QID PRN 05/15/24 (0.083 %) solution for nebulization Shortness Of Breath Or Wheezing #270 mL benzonatate 100 mg capsule 100 mg PO TID PRN cough #30 caps 05/15/24 lorazepam 1 mg tablet (Ativan) 1 mg PO DAILY PRN Anxiety #30 tabs 06/06/24 rosuvastatin 5 mg tablet 5 mg PO QAM #90 tabs 06/06/24 umeclidinium 62.5 mcg-vilanterol 1 inh inhalation QAM #60 ea 06/06/24 25 mcg/actuation powdr for inhalation (Anoro Ellipta) Results & Data (ED) Vital Signs Vital Signs - 24 hr 07/31/24 21:53 07/31/24 21:57 07/31/24 21:57 Pulse Rate 132 H 132 H Pulse Rate [Apical] Pulse Rhythm [Apical] Pulse Strength [Apical] Respiratory Rate 28 H Respiratory Effort / Characteristics Labored Pursed Lip Short of Breath Short of Breath Tripoding Respiratory Depth Respiratory Pattern Regular Regular Blood Pressure 133/88 Blood Pressure [Left Arm] Blood Pressure Mean 103 Blood Pressure Mean [Left Arm] Pulse Oximetry 95 Oxygen Delivery Method Non-rebreather Non-rebreather Oxygen Flow Rate 15 15 Fraction of Inspired Oxygen Sepsis Recent Fever Within 48 Hours No Sepsis New/Unexplained Change in Mental Status No Sepsis Action Taken by Nursing Physician Notified End-Tidal CO2 07/31/24 21:57 07/31/24 22:16 07/31/24 22:29 Pulse Rate 118 H Pulse Rate [Apical] 118 H Pulse Rhythm [Apical] Regular Pulse Strength [Apical] Normal Respiratory Rate 22 22 Respiratory Effort / Characteristics Mechanically Ventilated Respiratory Depth Normal Respiratory Pattern Blood Pressure Blood Pressure [Left Arm] 122/80 Blood Pressure Mean Blood Pressure Mean [Left Arm] 94 Pulse Oximetry 99 99 Oxygen Delivery Method Non-rebreather Mechanical Vent Oxygen Flow Rate Fraction of Inspired Oxygen 40 Sepsis Recent Fever Within 48 Hours Sepsis New/Unexplained Change in Mental Status Sepsis Action Taken by Nursing End-Tidal CO2 41 07/31/24 22:30 07/31/24 22:51 07/31/24 22:59 Pulse Rate 111 H Pulse Rate [Apical] 119 H 111 H Pulse Rhythm [Apical] Pulse Strength [Apical] Respiratory Rate 22 22 36 H Respiratory Effort / Characteristics Mechanically Ventilated Mechanically Ventilated Respiratory Depth Respiratory Pattern Blood Pressure Blood Pressure [Left Arm] 137/82 Blood Pressure Mean Blood Pressure Mean [Left Arm] 100 Pulse Oximetry 99 99 99 Oxygen Delivery Method Mechanical Vent Mechanical Vent Mechanical Vent Oxygen Flow Rate Fraction of Inspired Oxygen 40 Sepsis Recent Fever Within 48 Hours Sepsis New/Unexplained Change in Mental Status Sepsis Action Taken by Nursing End-Tidal CO2 07/31/24 23:36 07/31/24 23:55 08/01/24 00:16 Pulse Rate Pulse Rate [Apical] 99 H 96 H Pulse Rhythm [Apical] Pulse Strength [Apical] Respiratory Rate 18 40 H Respiratory Effort / Characteristics Respiratory Depth Respiratory Pattern Blood Pressure Blood Pressure [Left Arm] 90/62 L 85/56 L Blood Pressure Mean Blood Pressure Mean [Left Arm] 71 65 Pulse Oximetry 96 Oxygen Delivery Method Mechanical Vent Oxygen Flow Rate Fraction of Inspired Oxygen 40 Sepsis Recent Fever Within 48 Hours Sepsis New/Unexplained Change in Mental Status Sepsis Action Taken by Nursing End-Tidal CO2 08/01/24 00:26 Pulse Rate Pulse Rate [Apical] 91 H Pulse Rhythm [Apical] Pulse Strength [Apical] Respiratory Rate 43 H Respiratory Effort / Characteristics Respiratory Depth Respiratory Pattern Blood Pressure Blood Pressure [Left Arm] 66/50 L Blood Pressure Mean Blood Pressure Mean [Left Arm] 55 Pulse Oximetry Oxygen Delivery Method Oxygen Flow Rate Fraction of Inspired Oxygen Sepsis Recent Fever Within 48 Hours Sepsis New/Unexplained Change in Mental Status Sepsis Action Taken by Nursing End-Tidal CO2 Home Medications Current Medication List: was personally reviewed by me Laboratory Data Attestation: I reviewed the patient's lab results. 07/31/24 22:00 07/31/24 22:00 Lab Results 07/31/24 07/31/24 08/01/24 Range/Units 22:00 22:40 00:02 WBC 8.05 (4.8-10.8) K/ul RBC 4.47 (4.20-5.40) M/uL Hgb 14.3 (12.0-16.0) g/dl POC Hgb 11.9 L (12.0-16.0) g/dl Hct 43.0 (37.0-47.0) % POC Hct 35 L (37-47) % MCV 96.2 (80.0-100.0) fL MCH 32.0 (25.0-34.0) pg MCHC 33.3 (32.0-36.0) g/dL RDW Std Deviation 48.4 H (36.4-46.3) fL RDW Coeff of [place] 13.5 (11.5-14.5) % Plt Count 161 (130-400) K/uL MPV 9.7 (9.4-12.4) fL Immature Gran % (Auto) 0.4 % Neut % (Auto) 81.1 % Lymph % (Auto) 8.9 % [place] % (Auto) 7.0 % Eos % (Auto) 1.9 % Baso % (Auto) 0.7 % Neut # (Auto) 6.53 H (1.40-6.50) K/uL Lymph # (Auto) 0.72 L (1.20-3.40) K/uL [place] # (Auto) 0.56 (0.11-0.59) K/uL Eos # (Auto) 0.15 (0.00-0.50) K/uL Baso # (Auto) 0.06 (0.00-0.20) K/uL Immature Gran # (Auto) 0.03 (0.01-0.20) K/uL PT 13.4 H (9.0-12.0) Seconds INR 1.3 H (0.9-1.1) APTT 36 H (21-31) Seconds PTT Ratio 1.3 POC pH 7.38 (7.35-7.45) POC pCO2 43 (35-46) mmHg POC pO2 79 L (80-95) mmHg POC HCO3 25 H (19-24) nancy/L POC Total CO2 27 (24-31) mmol/L POC Base Excess 0.0 (-9-1.8) nancy/L POC ABG O2 Sat 95.0 (90-95) % VBG pH 7.26 L (7.36-7.41) VBG pCO2 78 H (38-50) mmHg VBG pO2 31 mmHg VBG HCO3 35 mmol/L VBG O2 Saturation < 60.0 % VBG Base Excess 5.2 mEq/L POC Sodium 138 (135-144) mmol/L Sodium 139 (136-145) mmol/L POC Potassium 3.2 L (3.3-5.0) mmol/L Potassium 3.7 (3.5-5.1) mmol/L Chloride 100 (98-107) mmol/L Carbon Dioxide 34 H (21-32) mmol/L Anion Gap 5 (3-11) BUN 9 (6-23) mg/dl Creatinine 0.70 (0.6-1.2) mg/dl Est Cr Clr Drug Dosing 62.1 ml/min eGFR 93.56 BUN/Creatinine Ratio 12.9 (10-20) Glucose 138 H (70-99(Fasting)) mg/dl Lactate 1.3 (0.4-2.0) mmol/L Calcium 9.0 (8.6-10.3) mg/dl Magnesium 1.7 (1.7-2.4) mg/dl Total Bilirubin 0.7 (0.2-1.0) mg/dl Direct Bilirubin 0.1 (0-0.2) mg/dl AST 12 L (13-39) U/L ALT 7 (7-52) U/L Alkaline Phosphatase 70 (34-104) U/L Troponin I High Sens 31.0 H (0-14) pg/ml Total Protein 7.2 (6.0-8.3) gm/dl Albumin 4.1 (3.4-5.0) gm/dl Procalcitonin 0.06 (0-0.5) ng/ml Urine Color Yellow Urine Appearance Clear (Clear) Urine pH 6.0 (4.5-7.5) Ur Specific [place] 1.017 (1.000-1.030) Urine Protein 2+ H (Negative) Urine Glucose (UA) Negative (Negative) Urine Ketones Negative (Negative) Urine Blood 1+ H (Negative) Urine Nitrite Negative (Negative) Urine Bilirubin Negative (Negative) Urine Urobilinogen Negative (Negative) Ur Leukocyte Esterase Negative (Negative) Urine WBC (Auto) 0-5 (0-5) /hpf Urine RBC (Auto) 6-10 H (0-2) /hpf U Hyaline Cast (Auto) 0-2 (0-2) /lpf U Epithel Cells (Auto) 0-2 (0-2) /hpf Urine Bacteria (Auto) None Seen (None Seen) Adenovirus (PCR) Not Detected (NotDetected) B. pertussis DNA (PCR) Not Detected (NotDetected) B.parapertussis DNA PCR Not Detected (NotDetected) C. pneumoniae DNA (PCR) Not Detected (NotDetected) Coronavirus OC43 (PCR) Not Detected (NotDetected) Coronavirus HKU1 (PCR) Not Detected (NotDetected) Coronavirus 229E (PCR) Not Detected (NotDetected) SARS-CoV-2 (PCR) Not Detected (NotDetected) Coronavirus NL63 (PCR) Not Detected (NotDetected) Human Metapneumovir PCR Not Detected (NotDetected) Influenza A (H3) PCR DETECTED A (NotDetected) Influenza Type B (PCR) Not Detected (NotDetected) M. pneumoniae (PCR) Not Detected (NotDetected) Parainfluenza 1 (PCR) Not Detected (NotDetected) Parainfluenza 2 (PCR) Not Detected (NotDetected) Parainfluenza 3 (PCR) Not Detected (NotDetected) Parainfluenza 4 (PCR) Not Detected (NotDetected) RSV (PCR) Not Detected (NotDetected) Entero/Rhino (PCR) Not Detected (NotDetected) Administered Medications Propofol (Diprivan) 1,000 mg in 100 mls @ 6.96 mls/hr IV .[id number] [facility]; Protocol Stop: 08/03/24 22:14 Last Admin: 07/31/24 23:21 Dose: Not Given Documented By: LARISSA Fentanyl Citrate (Fentanyl Citrate) 2,500 mcg in 250 mls @ 2.5 mls/hr IV .Q96H [facility]; Protocol Stop: 08/14/24 22:29 Last Admin: 07/31/24 23:26 Dose: 25 mcg/hr, 2.5 mls/hr Documented By: LARISSA Co-signed By: AUDI Propofol (Diprivan) 1,000 mg in 100 mls @ 6.96 mls/hr IV .[id number] [facility]; Protocol Stop: 08/03/24 22:29 Last Titration: 08/01/24 00:21 Dose: 30 mcg/kg/min, 10.4 mls/hr Documented By: Titration: 07/31/24 23:51 Dose: 20 mcg/kg/min, 7 mls/hr Documented By: Titration: 07/31/24 23:36 Dose: 30 mcg/kg/min, 10.4 mls/hr Documented By: Admin: 07/31/24 22:33 Dose: 20 mcg/kg/min, 7 mls/hr Documented By: Co-signed By: RADHA Azithromycin 500 mg/ Sodium (Chloride) 255 mls @ 127.5 mls/hr IV Q24H [facility] Stop: 08/05/24 23:29 Last Admin: 07/31/24 23:28 Dose: 127.5 mls/hr Documented By: LARISSA Sodium Chloride (Nss) 1,000 mls @ 999 mls/hr IV .Q1H1M STA Stop: 08/01/24 00:32 Last Admin: 07/31/24 23:52 Dose: 999 mls/hr Documented By: LARISSA Sodium Chloride (Nss) 1,000 mls @ 999 mls/hr IV .Q1H1M [facility] Stop: 08/01/24 00:45 Last Admin: 07/31/24 23:52 Dose: Not Given Documented By: LARISSA Sodium Chloride (Nss) 1,000 mls @ 999 mls/hr IV .Q1H1M ONE Stop: 08/01/24 01:11 Last Admin: 08/01/24 00:28 Dose: 999 mls/hr Documented By: LARISSA Norepinephrine Bitartrate (Levophed/D5w) 4 mg in 250 mls @ 10.875 mls/hr IV .Q23H [facility]; Protocol Stop: 08/31/24 00:14 Last Titration: 08/01/24 00:25 Dose: 0.07 mcg/kg/min, 15.2 mls/hr Documented By: LARISSA Co-signed By: AUDI Admin: 08/01/24 00:17 Dose: 0.05 mcg/kg/min, 10.9 mls/hr Documented By: LARISSA Co-signed By: AUDI Rocuronium [place] (Rocuronium [place] 10 Mg/Ml 5 Ml Vial) 100 mg IV Q1H PRN PRN Reason: see label Stop: 08/30/24 22:27 Last Admin: 07/31/24 22:10 Dose: 100 mg Documented By: MILTON Co-signed By: CIARA Discontinued Medications Albuterol (Albut/Ipratrop 3mg/0.5mg Neb 3 Ml Vial) 12 ml NEB ONE ONE; Protocol Stop: 07/31/24 22:02 Last Admin: 07/31/24 22:47 Dose: 12 ml Documented By: MILTON Sodium Chloride (Nss) 500 mls @ 999 mls/hr IV .Q31M ONE Stop: 07/31/24 22:31 Last Infusion: 07/31/24 22:25 Dose: Infused Documented By: Admin: 07/31/24 22:09 Dose: 999 mls/hr Documented By: MILTON Ceftriaxone Sodium (Rocephin) 2,000 mg in 50 mls @ 100 mls/hr IV NOW STA Stop: 07/31/24 22:36 Last Infusion: 07/31/24 23:10 Dose: Infused Documented By: Admin: 07/31/24 22:34 Dose: 100 mls/hr Documented By: MILTON Sodium Chloride (Nss) 500 mls @ 999 mls/hr IV .Q31M ONE Stop: 07/31/24 22:45 Last Infusion: 07/31/24 23:01 Dose: Infused Documented By: Admin: 07/31/24 22:25 Dose: 999 mls/hr Documented By: MILTON Ketamine HCl (Ketamine Hcl 10mg/Ml Syr) 100 mg IV NOW STA Stop: 07/31/24 22:34 Last Admin: 07/31/24 22:09 Dose: 100 mg Documented By: MILTON Ketamine HCl (Ketamine Hcl 10mg/Ml Syr) 50 mg IV NOW STA Stop: 08/01/24 00:00 Last Admin: 08/01/24 00:01 Dose: 50 mg Documented By: LARISSA Ketorolac Tromethamine (Ketorolac 30 Mg/Ml Vial) 100 mg IV NOW ONE Stop: 07/31/24 22:29 Last Admin: 07/31/24 22:39 Dose: Not Given Documented By: MILTON Wilkinsaneous (Stat Iv Infusion Titration Per Protocol) 1 each N/A NOW STA Stop: 07/31/24 22:16 Last Admin: 07/31/24 23:09 Dose: Not Given Documented By: LARISSA Miscellaneous (Stat Iv Infusion Titration Per Protocol) 1 each N/A NOW STA Stop: 07/31/24 22:29 Last Admin: 07/31/24 23:10 Dose: Not Given Documented By: LARISSA Norepinephrine Bitartrate (Norepinephrine/D5w 4 Mg/250 Ml) Confirm Administered Dose 4 mg IV .STK-MED ONE Stop: 08/01/24 00:10 Last Admin: 08/01/24 00:28 Dose: Not Given Documented By: LARISSA Propofol (Propofol Iv Emulsion 10 Mg/Ml 100 Ml Vial) Confirm Administered Dose 1,000 mg IV .STK-MED ONE Stop: 07/31/24 22:18 Last Admin: 07/31/24 23:09 Dose: Not Given Documented By: LARISSA Imaging Data Attestation: I personally reviewed and interpreted this imaging study as follows: My Impression: 1 view chest x-ray was obtained in the emergency department. There was bilateral scarring. This appears to be worsened on the left. Endotracheal tube appears in good position. OG tube appears in good position but was advanced 5 cm. Final report below. Radiologist's Impression: Chest X-Ray 07/31/24 22:01 Exam(s): XR CXR 1 VIEW EXAM: XR Chest, 1 View CLINICAL HISTORY: Reason for exam: Sepsis. TECHNIQUE: Frontal views of the chest. COMPARISON: 06/10/2024. FINDINGS: An endotracheal tube is noted with its tip 3.5 cm above the level of the isabela. A nasogastric tube is noted to cross the diaphragm. Its tip is not visualized on this exam. Lungs: There are areas of increased opacity bilaterally. Pleural space: No pleural effusion is seen. No pneumothorax. Heart: The heart is normal in size.. Mediastinum: Unremarkable. Bones/joints: There is a scoliosis of the spine with degenerative changes. There are postoperative changes in the right shoulder. IMPRESSION: There are bilateral areas of lung scarring. There appears to be a patchy superimposed infiltrate in the right lung. Electronically signed by: Daryl Hilario MD 07/31/24 23:59 PM Discharge Plan Visit Data Chief Complaint: Shortness of Breath/Dyspnea Stated Complaint: SOB ED Provider: Alan Aguilar Discharge Problem: Respiratory failure, Acute exacerbation of chronic obstructive pulmonary disease, Influenza A, Hypoxia, Acute respiratory acidosis, Pneumonia Patient Disposition: Being Evaluated by Hospitalist Forms Stand Alone Forms: My [facility] Prescriptions Prescriptions: No Action (DME) Therapist Evaluation for Power Mobility See Rx Instructions .Route .MEDSUPPLY Qty: 1 0RF Rx Instructions: Evaluate patient for necessity of power chair (DME) blood pressure monitor Kit See Rx Instructions .Route Qty: 1 0RF Rx Instructions: DIGITAL BLOOD PRESSURE MONITOR FOR UPPER ARM; CHECK DAILY AND PRN ondansetron 4 mg tablet,disintegrating 4 mg PO Q8 PRN (Reason: nausea) Qty: 20 1RF Rx Instructions: Take as needed for nausea trazodone 100 mg tablet 100 mg PO HS Qty: 90 3RF escitalopram oxalate 10 mg tablet 10 mg PO QAM Qty: 90 3RF albuterol sulfate [Ventolin HFA] 90 mcg/actuation HFA aerosol inhaler 2 puff inhalation QID PRN (Reason: Shortness Of Breath Or Wheezing) Qty: 18 11RF Xarelto 20 mg tablet 20 mg PO HS Qty: 30 5RF folic acid 1 mg tablet 1 mg PO DAILY Qty: 30 2RF gabapentin 300 mg capsule 300 mg PO BID Qty: 180 1RF hydrocortisone 5 mg tablet See Rx Instructions PO TID Qty: 180 5RF Rx Instructions: Take 15mg by mouth in the AM (5-6am), then taken 5mg in the afternoon (1- 2pm). In times of illness or severe emotional stress, double or triple the dose. benzonatate 100 mg capsule 100 mg PO TID PRN (Reason: cough) Qty: 30 1RF albuterol sulfate 2.5 mg /3 mL (0.083 %) solution for nebulization 2.5 mg INHALATION QID PRN (Reason: Shortness Of Breath Or Wheezing) Qty: 270 5RF rosuvastatin 5 mg tablet 5 mg PO QAM Qty: 90 3RF lorazepam [Ativan] 1 mg tablet 1 mg PO DAILY PRN (Reason: Anxiety) Qty: 30 2RF Anoro Ellipta 62.5-25 mcg/actuation blister with device 1 inh inhalation QAM Qty: 60 5RF (DME) Power Wheelchair Device See Rx Instructions .Route Qty: 1 0RF Rx Instructions: As directed (DME) Flutter Valve Device See Rx Instructions .ROUTE .MEDSUPPLY Qty: 1 0RF Rx Instructions: QID Solu-Cortef Act-O-Vial (PF) 100 mg/2 mL recon soln 75 mg IM ONCE PRN (Reason: severe adrenal insufficiency) Qty: 1 1RF tizanidine [Zanaflex] 4 mg tablet 4 mg PO BID pantoprazole 40 mg tablet,delayed release (DR/EC) 40 mg PO QAM acetaminophen [Tylenol Extra Strength] 500 mg tablet 1,000 mg PO TID PRN (Reason: pain) Pulmicort Flexhaler 90 mcg/actuation aerosol powdr breath activated INHALATION Referrals Referrals: Adolph,Nichole L., RATE ENGINEER [Primary Care Provider] - Discharge Problem: Respiratory failure Qualifiers: Chronicity: acute Respiratory failure complication: hypoxia and hypercapnia Q ualified Code(s): J96.01 - Acute respiratory failure with hypoxia; J96.02 - Acute respiratory failure with hypercapnia Pneumonia Qualifiers: Pneumonia type: due to unspecified organism Laterality: unspecified laterality Lung location: unspecified part of lung Qualified Code(s): J18.9 - Pneumonia, unspecified organism
[2024-07-31] MEDS ORDERED: GLUCOSE 10 TAB/TUBE PO PRN (22:29)
[2024-07-31] MEDS ORDERED: DEXTROSE 50% 50 ML SYRINGE IV PRN (22:29)
[2024-07-31] MEDS ORDERED: CARBOHYDRATES FOR HYPOGLYCEMIA PO PRN (22:29)
[2024-07-31] MEDS ORDERED: GLUCAGON FOR INJ 1 MG VIAL SQ PRN (22:29)
[2024-07-31] MEDS ORDERED: GLUCOSE 40% GEL 15 GM TUBE PO PRN (22:29)
[2024-07-31] MEDS ORDERED: AZITHROMYCIN 500 MG VIAL IV SCH (22:30)
[2024-07-31] MEDS: propofoL 1,000 MG/100 ML VIAL IV SCH ×2 (22:33→23:21)
[2024-07-31 22:34] LABS: Albumin Level 4.1 gm/dl (3.4-5.0); BUN Creatinine Ratio 12.9 (10-20); Bilirubin Direct 0.1 mg/dl (0-0.2); Bilirubin,Total 0.7 mg/dl (0.2-1.0); Creatinine Clr Calc Pharmacy 62.1 ml/min; Magnesium 1.7 mg/dl (1.7-2.4); Potassium 3.7 mmol/L (3.5-5.1); Total Protein 7.2 gm/dl (6.0-8.3)
[2024-07-31] MEDS: cefTRIAXone SODIUM 2,000 MG/50 ML BAG IV STA (22:34)
[2024-07-31] MEDS: KETOROLAC 30 MG/ML VIAL IV ONE (22:39)
[2024-07-31 22:42] LABS: INR 1.3 (0.9-1.1); Partial Thromboplastin Ratio 1.3; Partial Thromboplastin Time 36 Seconds (21-31); Prothrombin Time 13.4 Seconds (9.0-12.0)
[2024-07-31] MEDS: ALBUT/IPRATROP 3MG/0.5MG NEB 3 ML VIAL NEB ONE (22:47)
[2024-07-31] MEDS: STAT IV Infusion **Titration per Protocol STA ×2 (23:09→23:10)
[2024-07-31] MEDS: PROPOFOL IV EMULSION 10 MG/ML 100 ML VIAL IV ONE (23:09)
--- NOTE | 2024-07-31 23:12 | Critical Care Consultation ---
Date of Consultation July 31, 2024 Assessment & Plan (1) Acute on chronic respiratory failure with hypoxia and hypercapnia: (2) Influenza A: (3) Adrenal insufficiency: (4) Chronic pain: (5) Acute exacerbation of chronic obstructive pulmonary disease: (6) Suicidal risk: (7) Demand ischemia: Plan Reason Critically Ill: #Suicidal ideation #Acute on chronic hypoxemic and hypercapneic respiratory failure #Influenza A #Acute exacerbation of COPD #Medical non-compliance #Possible medication overdose Neuro - RASS GOAL -1 to -2 overnight Continue propofol and fentanyl infusions SAT in AM APAP PRN pain/fever Nicotine patch Treatment for overdose of the medications Reynaldo was describing is largely supportive. Thankfully her gabapentin was nearly full. We will contact poison control. Nicotine patch Psych consult once clinically feasible. Patient will benefit from Palliative discussion as well Cardiac - MAP goal > 65mmHg Received 2L IVF in ED Assess volume status on arrival to ICU via POCUS Troponin elevated in setting of myocardial demand, trend Reduced RV function on prior echo, pulmonary hypertension not yet classified Respiratory - SAT/SBT daily HOB 30, VAP protocol SpO2 88-90%, patient will not benefit from hyperoxia Solumedrol 40mg Q8H Repeat ABG post-intubation pending Albuterol PRN, DuoNeb scheduled while intubated. Reassess regimen upon extubation Antibiotic as below GI - Diet: NPO except Rx via OGT SUP: Home PPI Bowel regimen: Miralax Zofran PRN RENAL/LYTES - Replete electrolytes as indicated Ravi for accurate I/Os, may remove in AM Maintain net even to net negative ENDO - BG 140-180 per SCCM guidelines ISS if needed while inpatient Chronic steroids as OP. Continue Solumedrol 40mg Q8H, defer adjustments to Dr. Guillaume HEME - Home Xarelto TEDS/SCDs ID - Tamiflu, Ceftriaxone Add azithromycin and continue x5 days Imaging pattern points to possible aspiration event BC x2 pending (these were drawn after antibiotic initiation), MRSA pending, procalcitonin negative, BioFire + Flu A LINES/TUBES/DRAINS - Ravi (Day #1) PIV x2 ETT (Day #1) OGT (Day #1) DVT PROPHYLAXIS - CAROL ANN Claudios I have personally spent 38 minutes of critical care time in the direct management of this patient. This is a life/limb threatening event. This includes time spent evaluating patient, direct bedside care, chart review, placing orders, interpretation of diagnostic studies, discussion with consultants, patient, and family members, as well as other required patient management activities. This time is exclusive of all separately billable procedures, and teaching time and separate from and in addition to any other critical care service time. Thank you for allowing us to participate in the care of this patient. Please refer to my attending physician's documentation for any further recommendations. History of Present Illness Reason for Consultation: Acute on chronic hypoxemic and hypercapneic respiratory failure Requesting Physician: Jeff Attending Physician: Luis Daniel History of Present Illness Ms. Katherine Ruiz is a 68YOF with a history of chronic pain, active tobacco use disorder (1PPD), sacoidosis, COPD on 2-3L O2 at baseline, medical non- compliance, adrenal insufficiency on daily hydrocortisone, PE on Xarelto, depression/anxiety, and GERD who presented to [facility] ED from home due to severe shortness of breath. Per report, patient was very lethargic for EMS with SpO2 70%. She received steroids and duoneb en route. Tachypneic and tachycardic on arrival to ED. She was placed on BIPAP but was unable to tolerate due to emesis. Thus patient was intubated. Further work up revealed mild respiratory acidosis on VBG and slight elevation of troponin. She is Influenza A +. CXR shows scarring and possible R lung infiltrate. She received ceftriaxone. Admitted to ICU for continuation of care. Patient seen in ED B01. She is intubated and sedated. Tachycardic. Saturating 98% on FiO2 0.4. Peak pressures 43 and she is currently passive on ventilator s/p paralytic. Will decrease RR from 18 to 22 to allow proper expiration. ROS unable to be obtained as patient intubated. I did speak to patient's , Reynaldo, via telephone. He notes that for the past 3 or so days Karine has been irritable, weak, and short of breath. Her appetite has been less as well. She has used her nebulizer more frequently the past 2 days. Karine was reportedly not taking her medications as prescribed - sh nica would take some at random times and her does not know what she was taking. She told Reynaldo that her back was hurting so badly that she "wants to end it all". He tells me it is possible she could have taken extra pain medication (Gabapentin or Xanaflex). He gathered her medications, some of which he filled 3 to 4 days ago. He does not recall which ones were recently filled so it is unknown how many pills should be in the bottle. Karine does continue to smoke. Her tells me she rolls her own cigarettes, smoking at minimum 10 hand-rolled cigarettes per day. She does have recent exposure to Influenza A. Addendum 0000: POCUS performed showing thickened LV wall, grossly intact LV systolic function. RV is dilated without septal bowing. Trace pericardial effusion possible. IVC is large, dilated, non-collapsible consistent with pulmonary hypertension. Formal TTE ordered. IVF should be judicious and patient may require diuresis at some point this admission. Allergies Allergy/AdvReac Type Severity Reaction Status Date / Time No Known Allergies Allergy Verified 04/23/24 12:55 Home Medications Medication Instructions Recorded Confirmed Type Wheelchair (Powered) (Power #1 ea 01/12/23 06/10/24 Rx Wheelchair) Therapist Evaluation for Power #1 ea 01/30/23 06/10/24 Rx Mobility Flutter Valve #1 ea 06/23/23 06/10/24 Rx pantoprazole 40 mg tablet,delayed 40 mg PO QAM 07/04/23 06/10/24 History release tizanidine 4 mg tablet (Zanaflex) 4 mg PO BID muscle spasticity 07/04/23 06/10/24 History blood pressure monitor #1 ea 07/11/23 06/10/24 Rx ondansetron 4 mg disintegrating 4 mg PO Q8 PRN nausea #20 tabs 07/15/23 06/10/24 Rx tablet trazodone 100 mg tablet 100 mg PO HS #90 tabs 10/11/23 06/10/24 Rx escitalopram oxalate 10 mg tablet 10 mg PO QAM #90 tabs 10/27/23 06/10/24 Rx albuterol sulfate 90 mcg/actuation 2 puff inhalation QID PRN 11/15/23 06/10/24 Rx aerosol inhaler (Ventolin HFA) Shortness Of Breath Or Wheezing #18 grams rivaroxaban 20 mg tablet (Xarelto) 20 mg PO HS #30 tabs 02/01/24 06/10/24 Rx acetaminophen 500 mg tablet 1,000 mg PO TID PRN pain 03/02/24 06/10/24 History (Tylenol Extra Strength) hydrocortisone sod succ (PF) 100 75 mg (1.5 mL) IM ONCE PRN severe 03/12/24 06/10/24 Rx mg/2 mL solution for injection adrenal insufficiency #1 ea (Solu-Cortef Act-O-Vial (PF)) folic acid 1 mg tablet 1 mg PO DAILY #30 tabs 03/27/24 06/10/24 Rx gabapentin 300 mg capsule 300 mg PO BID #180 caps 04/29/24 06/10/24 Rx hydrocortisone 5 mg tablet See Rx Instructions PO TID #180 05/08/24 06/10/24 Rx tabs albuterol sulfate 2.5 mg/3 mL 2.5 mg (3 mL) inhalation QID PRN 05/15/24 06/10/24 Rx (0.083 %) solution for nebulization Shortness Of Breath Or Wheezing #270 mL benzonatate 100 mg capsule 100 mg PO TID PRN cough #30 caps 05/15/24 06/10/24 Rx lorazepam 1 mg tablet (Ativan) 1 mg PO DAILY PRN Anxiety #30 tabs 06/06/24 06/10/24 Rx rosuvastatin 5 mg tablet 5 mg PO QAM #90 tabs 06/06/24 06/10/24 Rx umeclidinium 62.5 mcg-vilanterol 1 inh inhalation QAM #60 ea 06/06/24 06/10/24 Rx 25 mcg/actuation powdr for inhalation (Anoro Ellipta) budesonide 90 mcg/actuation breath inhalation 06/12/24 History activated powder inhaler (Pulmicort Flexhaler) Patient History Medical History Elevated troponin Acute exacerbation of chronic obstructive pulmonary disease (COPD) Hypotension Scoliosis Surgical History History of esophagogastroduodenoscopy (EGD) History of lung biopsy History of bronchoscopy Hx of colonoscopy Hx of elbow surgery Right History of hip replacement Left PREETI (09/11/17): SAB x1 at L3-L4 at [facility] Family History Father Myocardial infarction Brother Anxiety COPD (chronic obstructive pulmonary disease) Daughter Anxiety Sister Breast cancer Other Diabetes Kidney disease No family history of adverse response to anesthesia Denies family history of Ovarian cancer Prostate cancer Colorectal cancer Social History Smoking Status: Current every day smoker Tobacco Type: Cigarettes Age Started Using Tobacco: 22; packs per day: 0.75; Cigarettes Per Day: 1 ppd (advised on policy); Second Hand Exposure: Yes (in the past); Do You Dip or Chew Tobacco: No; Hx Alcohol Use: No Hx Substance Use: No Preferred Language: Italian Communication Ability: Effective Visual Impairment: No Limitations Hearing Ability: Normal Poker Room Manager Required: No Beliefs That Will Affect Care: None marital status: Current Living Situation: Spouse Current Living Situation Comment: house current occupational status: retired and disabled 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 How many Children do You have: 2 Feels Safe at Home: Yes Safety Concerns: Feels Safe At This Time Childhood Exposure to Second-Hand Smoke: No Diet: regular Dental Care, Regularly: No Physical Activity Frequency: Does not Exercise Seatbelt Use: always Sunscreen Use: No (is not out in the sun much ) Assistive Devices: Denture - Upper, Glasses and Oxygen - Continuous Review of Systems Review of Systems: Unobtainable due to endotracheal tube Physical Exam Constitutional: + frail appearing and + mechanically melia tilated Eyes: PERRL, conjunctivae normal, anicteric sclerae ENMT: ETT in place Neck: trachea midline Respiratory: Auscultation: + crackles and + wheezes Equal bilaterally Cardiovascular: Rate/Rhythm: + tachycardic Heart Sounds: no murmur Vessels: normal peripheral pulses; no JVD Extremities: normal capillary refill; no edema Gastrointestinal (Abdomen): Inspection/Auscultation: abdomen normal to inspection and normal bowel sounds Skin: + turgor decreased No obvious lesions or rashes Neurologic: Intubated and paralyzed. Exam is limited Genitourinary: Ravi in place draining yellow urine Results & Data Results & Data Vital Signs (Past 12 Hours) Vital Signs Pulse Pulse Resp BP BP Pulse Ox O2 Del Method 07/31/24 22:59 111 H 36 H 99 Mechanical Vent 07/31/24 22:51 111 H 22 99 Mechanical Vent 07/31/24 22:30 119 H 22 137/82 99 Mechanical Vent 07/31/24 22:29 118 H 22 99 07/31/24 22:16 118 H 22 122/80 99 Mechanical Vent 07/31/24 21:57 Non-rebreather 07/31/24 21:57 132 H 28 H 133/88 95 Non-rebreather 07/31/24 21:57 Non-rebreather 07/31/24 21:53 132 H O2 Flow Rate FiO2 07/31/24 22:59 07/31/24 22:51 40 07/31/24 22:30 07/31/24 22:29 40 07/31/24 22:16 07/31/24 21:57 07/31/24 21:57 15 07/31/24 21:57 15 07/31/24 21:53 Laboratory Results Reviewed Diagnostic Findings Reviewed Medications Administered See SHASHI KELLOGG Procedure Codes (Charges) Ventilator Management Ventilator Managment: 43918 Ventilation assist and management; Hospital inpt/obs, intl day Coding Level of Care Code 26966 CRITICAL CARE 1ST 30-74M Diagnoses Acute on chronic respiratory failure with hypoxia and hypercapnia J96.21; J96.22 Influenza A J10.1 Adrenal insufficiency E27.40 Chronic pain G89.29 Acute exacerbation of chronic obstructive pulmonary disease J44.1 Suicidal risk R45.89 Demand ischemia I24.89 CPT Codes Ventilator Management - Ventilator Managment: [id number] Ventilation assist and management; Hospital inpt/obs, intl day ([id number]) Time Spent (min) 38
[2024-07-31 23:15] LABS: Adenovirus PCR Not Detected (NotDetected); Bordetella parapertussis PCR Not Detected (NotDetected); Bordetella pertussis PCR Not Detected (NotDetected); Chlamydia pneumoniae PCR Not Detected (NotDetected); Coronavirus 229E PCR Not Detected (NotDetected); Coronavirus CoV-2 (COVID19)PCR Not Detected (NotDetected); Coronavirus HKU1 PCR Not Detected (NotDetected); Coronavirus NL63 PCR Not Detected (NotDetected); Coronavirus OC43PCR Not Detected (NotDetected); Human Metapneumovirus PCR Not Detected (NotDetected); Influenza A (H3) PCR DETECTED (NotDetected); Influenza B PCR Not Detected (NotDetected); Mycoplasma pneumoniae PCR Not Detected (NotDetected); Parainfluenza Virus 1 PCR Not Detected (NotDetected); Parainfluenza Virus 2 PCR Not Detected (NotDetected); Parainfluenza Virus 3 PCR Not Detected (NotDetected); Parainfluenza Virus 4 PCR Not Detected (NotDetected); Respiratory Syncytial VirusPCR Not Detected (NotDetected); Rhinovirus/Enterovirus PCR Not Detected (NotDetected)
[2024-07-31] MEDS: fentaNYL citrate 2,500 MCG/250 ML BAG IV SCH (23:26)
[2024-07-31] MEDS: AZITHROMYCIN 500 MG in SODIUM CHLORIDE 0.9% 250 ML IV SCH (23:28)
[2024-07-31] MEDS: SODIUM CHLORIDE 0.9% 1,000 ML IV STA (23:52)
[2024-07-31] MEDS: SODIUM CHLORIDE 0.9% 1,000 ML IV SCH (23:52)
--- NOTE | 2024-08-01 | XRay Report ---
Exam(s): XR CXR 1 VIEW EXAM: XR Chest, 1 View CLINICAL HISTORY: Reason for exam: Sepsis. TECHNIQUE: Frontal views of the chest. COMPARISON: 06/10/2024. FINDINGS: An endotracheal tube is noted with its tip 3.5 cm above the level of the isabela. A nasogastric tube is noted to cross the diaphragm. Its tip is not visualized on this exam. Lungs: There are areas of increased opacity bilaterally. Pleural space: No pleural effusion is seen. No pneumothorax. Heart: The heart is normal in size.. Mediastinum: Unremarkable. Bones/joints: There is a scoliosis of the spine with degenerative changes. There are postoperative changes in the right shoulder. IMPRESSION: There are bilateral areas of lung scarring. There appears to be a patchy superimposed infiltrate in the right lung. Electronically signed by: Daryl Hilario MD 07/31/24 23:59 PM
[2024-08-01] MEDS: KETAMINE HCL 10MG/ML SYR IV STA (00:01)
[2024-08-01 00:07] LABS: Appearance Urine Clear (Clear); Bacteria Urine Automated None Seen (None Seen); Bilirubin Urine Negative (Negative); Blood Urine 1+ (Negative); Cast Urine Automated 0-2 /lpf (0-2); Color Urine Yellow; Epithelial Cell Urine Auto 0-2 /hpf (0-2); Glucose Urine UA Negative (Negative); Ketones Urine Negative (Negative); Leukocyte Esterase Urine Negative (Negative); Nitrite Urine Negative (Negative); Protein Urine 2+ (Negative); Specific Gravity Urine 1.017 (1.000-1.030); Urobilinogen Urine Negative (Negative); WBC Urine Automated 0-5 /hpf (0-5)
[2024-08-01] MEDS ORDERED: STAT IV Infusion **Titration per Protocol STA (00:11)
[2024-08-01 00:17] LABS: iSTAT Arterial Blood Gas HCO3 25 meg/L (19-24); iSTAT Arterial Blood Gas pCO2 43 mmHg (35-46); iSTAT Arterial Blood Gas pH 7.38 (7.35-7.45); iSTAT Arterial Blood Gas pO2 79 mmHg (80-95); iSTAT Carbon Dioxide 27 mmol/L (24-31); iSTAT Hematocrit 35 % (37-47); iSTAT Hemoglobin 11.9 g/dl (12.0-16.0); iSTAT Potassium 3.2 mmol/L (3.3-5.0); iSTAT Sodium 138 mmol/L (135-144)
[2024-08-01] MEDS: NOREPINEPHRINE/D5W 4 MG/250 ML PLCT IV SCH (00:17)
[2024-08-01] MEDS: SODIUM CHLORIDE 0.9% 1,000 ML IV ONE (00:28)
[2024-08-01] MEDS: NOREPINEPHRINE/D5W 4 MG/250 ML IV ONE (00:28)
--- NOTE | 2024-08-01 00:29 | History & Physical Report ---
Date of Service August 01, 2024 Assessment & Plan (1) Septic shock: (2) Influenza A: (3) Adrenal insufficiency: (4) Demand ischemia: (5) Admitted to intensive care unit: Plan The patient is a 68-year-old female with a past medical history including COPD, myofascial pain syndrome, adrenal insufficiency, GERD, vitamin D deficiency, bronchiectasis, ambulatory dysfunction, hyperlipidemia, anxiety depression, postinflammatory pulmonary fibrosis, tobacco use disorder, sarcoidosis, and history of PE on Xarelto. The patient presented to the emergency department for evaluation of worsening difficulty breathing that began earlier in the day, having worsened enough throughout the day, that her called 911. EMS reports when they arrived, the patient was very lethargic, and oxygen saturation was in the 70s. She was given Solu-Medrol, and a DuoNeb en route. While in the emergency department, the patient did appear to have a possible aspiration event, acutely decompensated, and was intubated by ED staff for airway protection. At the time of my assessment, the patient already been intubated and sedated. She also became quite hypotensive, with blood pressure decreased to 65/43, and patient had the institution of Levophed for pressure support at that time. Of note, patient had already been seen by the ICU staff, and were well involved in her care. Patient has been admitted to the intensive care unit. Septic shock- Patient's blood pressure dropped to a low of 67/34 And was begun on Levophed infusion, after several liters of IV fluid resuscitation Patient with acute on chronic respiratory failure with hypoxia and hypercapnia, with a possible element of aspiration. Primary pulmonary issue is more likely influenza A H3 viral infection Consult to the funeral director team Tamiflu 75 mg liquid per NG tube now, and 75 mg p.o. twice daily Solu-Medrol 40 mg IV every 8 hours Azithromycin 500 mg IV daily Maintenance IV fluids: NSS + KCl 20 mill equivalents at 100 mL/h MRSA swab Respiratory failure- Ventilator management per funeral director team Sedation via propofol and fentanyl, to be adjusted by funeral director team Demand ischemia- Initial troponin 31.0, with follow-up 53.9 The patient will be admitted to the ICU for serial cardiac enzymes, serial EKG's, cardiac rhythm monitoring and a 2-D echocardiogram with Dopplers History of pulmonary embolism- Change Xarelto to Lovenox 1 mg kilogram SQ every 12 hours Adrenal insufficiency- Solu-Medrol used as treatment for pulmonary status, will act as stress dosing History of Present Illness Chief Complaint: The patient presented to the emergency department for evaluation of worsening difficulty breathing that began earlier in the day, having worsened enough throughout the day, that her called 911. EMS reports when they arrived, the patient was very lethargic, and oxygen saturation was in the 70s. She was given Solu-Medrol, and a DuoNeb en route. Primary Care Provider: CLAY Michele The patient is a 68-year-old female with a past medical history including COPD, myofascial pain syndrome, adrenal insufficiency, GERD, vitamin D deficiency, bronchiectasis, ambulatory dysfunction, hyperlipidemia, anxiety depression, postinflammatory pulmonary fibrosis, tobacco use disorder, sarcoidosis, and history of PE on Xarelto. The patient presented to the emergency department for evaluation of worsening difficulty breathing that began earlier in the day, having worsened enough throughout the day, that her called 911. EMS reports when they arrived, the patient was very lethargic, and oxygen saturation was in the 70s. She was given Solu-Medrol, and a DuoNeb en route. While in the emergency department, the patient did appear to have a possible aspiration event, acutely decompensated, and was intubated by ED staff for airway protection. Allergies Allergy/AdvReac Type Severity Reaction Status Date / Time No Known Allergies Allergy Verified 04/23/24 12:55 Home Medications Medication Instructions Recorded Confirmed Type Wheelchair (Powered) (Power #1 ea 01/12/23 06/10/24 Rx Wheelchair) Therapist Evaluation for Power #1 ea 01/30/23 06/10/24 Rx Mobility Flutter Valve #1 ea 06/23/23 06/10/24 Rx pantoprazole 40 mg tablet,delayed 40 mg PO QAM 07/04/23 06/10/24 History release tizanidine 4 mg tablet (Zanaflex) 4 mg PO BID muscle spasticity 07/04/23 06/10/24 History blood pressure monitor #1 ea 07/11/23 06/10/24 Rx ondansetron 4 mg disintegrating 4 mg PO Q8 PRN nausea #20 tabs 07/15/23 06/10/24 Rx tablet trazodone 100 mg tablet 100 mg PO HS #90 tabs 10/11/23 06/10/24 Rx escitalopram oxalate 10 mg tablet 10 mg PO QAM #90 tabs 10/27/23 06/10/24 Rx albuterol sulfate 90 mcg/actuation 2 puff inhalation QID PRN 11/15/23 06/10/24 Rx aerosol inhaler (Ventolin HFA) Shortness Of Breath Or Wheezing #18 grams rivaroxaban 20 mg tablet (Xarelto) 20 mg PO HS #30 tabs 02/01/24 06/10/24 Rx acetaminophen 500 mg tablet 1,000 mg PO TID PRN pain 03/02/24 06/10/24 History (Tylenol Extra Strength) hydrocortisone sod succ (PF) 100 75 mg (1.5 mL) IM ONCE PRN severe 03/12/24 06/10/24 Rx mg/2 mL solution for injection adrenal insufficiency #1 ea (Solu-Cortef Act-O-Vial (PF)) folic acid 1 mg tablet 1 mg PO DAILY #30 tabs 03/27/24 06/10/24 Rx gabapentin 300 mg capsule 300 mg PO BID #180 caps 04/29/24 06/10/24 Rx hydrocortisone 5 mg tablet See Rx Instructions PO TID #180 05/08/24 06/10/24 Rx tabs albuterol sulfate 2.5 mg/3 mL 2.5 mg (3 mL) inhalation QID PRN 05/15/24 06/10/24 Rx (0.083 %) solution for nebulization Shortness Of Breath Or Wheezing #270 mL benzonatate 100 mg capsule 100 mg PO TID PRN cough #30 caps 05/15/24 06/10/24 Rx lorazepam 1 mg tablet (Ativan) 1 mg PO DAILY PRN Anxiety #30 tabs 06/06/24 06/10/24 Rx rosuvastatin 5 mg tablet 5 mg PO QAM #90 tabs 06/06/24 06/10/24 Rx umeclidinium 62.5 mcg-vilanterol 1 inh inhalation QAM #60 ea 06/06/24 06/10/24 Rx 25 mcg/actuation powdr for inhalation (Anoro Ellipta) budesonide 90 mcg/actuation breath inhalation 06/12/24 History activated powder inhaler (Pulmicort Flexhaler) Past Med/Surg History Problem List (Updated 08/01/24 @ 05:07 by Basilio Cary MD) Admitted to intensive care unit Pneumonia and influenza Septic shock Demand ischemia Suicidal risk Influenza A Acute on chronic respiratory failure with hypoxia and hypercapnia Tremor (Acute) Chronic back pain (Acute) Episode of syncope Acute dehydration (Acute) Acute dyspnea (Acute) Acute exacerbation of chronic obstructive pulmonary disease (Acute) Myofascial pain Adrenal insufficiency GERD (gastroesophageal reflux disease) Chronic pain 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 Avascular necrosis of bone of right hip Unintentional weight loss Vitamin D deficiency Right hip pain Pleural effusion Cough Bronchiectasis Other cervical disc degeneration, mid-cervical region, unspecified level Other kyphosis, thoracic region Balance problem Ambulatory dysfunction Dysphagia OLGUIN (dyspnea on exertion) (Acute) Decompensated COPD with exacerbation (chronic obstructive pulmonary disease) Lesion of skin of nose Compression fracture Rib pain Thoracic back pain Hyperlipidemia Thoracic radiculopathy Colon cancer screening Pneumonia (Acute) Hypoxia Back pain Compression fracture of body of thoracic vertebra T6, T7, T8 Cor pulmonale SOB (shortness of breath) Rib pain Back pain Anxiety and depression Osteoporosis Osteoarthritis of left shoulder Chronic obstructive pulmonary disease (Acute) Insomnia Low back pain Postinflammatory pulmonary fibrosis Depression Anxiety Tobacco use disorder Chronic respiratory failure 2 LPM oxygen PRN Follows with [facility] pulmonary COPD (chronic obstructive pulmonary disease) COPD/emphysema Breathing stable per patient Sarcoidosis Follows with [facility] pulmonary (pulmonary ) History of pulmonary embolism 2019: post-op shoulder replacement ~2020: unknown etiology Patient taking Xarelto Osteoporosis Anxiety with depression Medical History Elevated troponin Acute exacerbation of chronic obstructive pulmonary disease (COPD) Hypotension Scoliosis Surgical History History of esophagogastroduodenoscopy (EGD) History of lung biopsy History of bronchoscopy Hx of colonoscopy Hx of elbow surgery Right History of hip replacement Left PREETI (09/11/17): SAB x1 at L3-L4 at [facility] Family History Father Myocardial infarction Brother Anxiety COPD (chronic obstructive pulmonary disease) Daughter Anxiety Sister Breast cancer Other Diabetes Kidney disease No family history of adverse response to anesthesia Denies family history of Ovarian cancer Prostate cancer Colorectal cancer Social History Smoking Status: Current every day smoker Tobacco Type: Cigarettes Age Started Using Tobacco: 22; packs per day: 0.75; Cigarettes Per Day: 1 ppd (advised on policy); Second Hand Exposure: Yes (in the past); Do You Dip or Chew Tobacco: No; Hx Alcohol Use: No Hx Substance Use: No Preferred Language: [place] Communication Ability: Effective Visual Impairment: No Limitations Hearing Ability: Normal [employer] Director Required: No Beliefs That Will Affect Care: None marital status: Current Living Situation: Spouse Current Living Situation Comment: house current occupational status: retired and disabled 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 Information was gathered via EMS reports, family reports, and the emergency department information. Physical Exam Physical Exam: The patient is sedated, intubated, nonresponsive, on the ventilator, having undergone emergency intubation in the ED HEENT--PERRL, EOMI, mucous membranes and oropharynx dry. Neck--supple. No JVD. No bruits. Thyroid normal, trachea midline, no adenopathy. Heart--normal S1 and S2. No murmurs, rubs or gallops. Lungs--few coarse breath sounds bilaterally. Abdomen--normal bowel sounds and soft. Nontender. Nondistended Extremities--no cyanosis or clubbing. No edema. Dermatologic--normal skin turgor, normal color, no abnormal lymph nodes, no rash. Neurologic--cranial nerves II through XII grossly intact. Rheumatologic--limited exam Psychiatric--intubated and sedated Results & Data Results & Data Vital Signs (Past 12 Hours) Vital Signs Pulse Pulse Resp BP BP Pulse Ox O2 Del Method 08/01/24 00:26 91 H 43 H 66/50 L 01/30/25 00:16 96 H 85/56 L 07/31/24 23:55 99 H 40 H 90/62 L 96 Mechanical Vent 07/31/24 23:36 18 07/31/24 22:59 111 H 36 H 99 Mechanical Vent 07/31/24 22:51 111 H 22 99 Mechanical Vent 07/31/24 22:30 119 H 22 137/82 99 Mechanical Vent 07/31/24 22:29 118 H 22 99 07/31/24 22:16 118 H 22 122/80 99 Mechanical Vent 07/31/24 21:57 Non-rebreather 07/31/24 21:57 132 H 28 H 133/88 95 Non-rebreather 07/31/24 21:57 Non-rebreather 07/31/24 21:53 132 H O2 Flow Rate FiO2 08/01/24 00:26 08/01/24 00:16 07/31/24 23:55 07/31/24 23:36 40 07/31/24 22:59 07/31/24 22:51 40 07/31/24 22:30 07/31/24 22:29 40 07/31/24 22:16 07/31/24 21:57 07/31/24 21:57 15 07/31/24 21:57 15 07/31/24 21:53 Laboratory Results Laboratory Results WBC 12.09 K/ul (4.8-10.8) H 08/01/24 03:18 RBC 3.97 M/uL (4.20-5.40) L 08/01/24 03:18 Hgb 12.6 g/dl (12.0-16.0) 08/01/24 03:18 POC Hgb 11.9 g/dl (12.0-16.0) L 08/01/24 00:02 Hct 38.0 % (37.0-47.0) 08/01/24 03:18 POC Hct 35 % (37-47) L 08/01/24 00:02 MCV 95.7 fL (80.0-100.0) 08/01/24 03:18 MCH 31.7 pg (25.0-34.0) 08/01/24 03:18 MCHC 33.2 g/dL (32.0-36.0) 08/01/24 03:18 RDW Std Deviation 48.8 fL (36.4-46.3) H 08/01/24 03:18 RDW Coeff of [place] 13.6 % (11.5-14.5) 08/01/24 03:18 Plt Count 196 K/uL (130-400) 08/01/24 03:18 MPV 10.1 fL (9.4-12.4) 08/01/24 03:18 Immature Gran % (Auto) 0.4 % 08/01/24 03:18 Neut % (Auto) 94.7 % 08/01/24 03:18 Lymph % (Auto) 2.6 % 08/01/24 03:18 [place] % (Auto) 1.9 % 08/01/24 03:18 Eos % (Auto) 0.0 % 08/01/24 03:18 Baso % (Auto) 0.4 % 08/01/24 03:18 Neut # (Auto) 11.44 K/uL (1.40-6.50) H 08/01/24 03:18 Lymph # (Auto) 0.32 K/uL (1.20-3.40) L 08/01/24 03:18 [place] # (Auto) 0.23 K/uL (0.11-0.59) 08/01/24 03:18 Eos # (Auto) 0.00 K/uL (0.00-0.50) 08/01/24 03:18 Baso # (Auto) 0.05 K/uL (0.00-0.20) 08/01/24 03:18 Immature Gran # (Auto) 0.05 K/uL (0.01-0.20) 08/01/24 03:18 PT 13.4 Seconds (9.0-12.0) H 07/31/24 22:00 INR 1.3 (0.9-1.1) H 07/31/24 22:00 APTT 36 Seconds (21-31) H 07/31/24 22:00 PTT Ratio 1.3 07/31/24 22:00 POC pH 7.38 (7.35-7.45) 08/01/24 00:02 POC pCO2 43 mmHg (35-46) 08/01/24 00:02 POC pO2 79 mmHg (80-95) L 08/01/24 00:02 POC HCO3 25 nancy/L (19-24) H 08/01/24 00:02 POC Total CO2 27 mmol/L (24-31) 08/01/24 00:02 POC Base Excess 0.0 nancy/L (-9-1.8) 08/01/24 00:02 POC ABG O2 Sat 95.0 % (90-95) 08/01/24 00:02 VBG pH 7.26 (7.36-7.41) L 07/31/24 22:00 VBG pCO2 78 mmHg (38-50) H 07/31/24 22:00 VBG pO2 31 mmHg 07/31/24 22:00 VBG HCO3 35 mmol/L 07/31/24 22:00 VBG O2 Saturation < 60.0 % 07/31/24 22:00 VBG Base Excess 5.2 mEq/L 07/31/24 22:00 POC Sodium 138 mmol/L (135-144) 08/01/24 00:02 Sodium 136 mmol/L (136-145) 08/01/24 03:18 POC Potassium 3.2 mmol/L (3.3-5.0) L 08/01/24 00:02 Potassium 3.8 mmol/L (3.5-5.1) 08/01/24 03:18 Chloride 102 mmol/L (98-107) 08/01/24 03:18 Carbon Dioxide 28 mmol/L (21-32) 08/01/24 03:18 Anion Gap 6 (3-11) 08/01/24 03:18 BUN 10 mg/dl (6-23) 08/01/24 03:18 Creatinine 0.71 mg/dl (0.6-1.2) 08/01/24 03:18 Est Cr Clr Drug Dosing 61.2 ml/min 08/01/24 03:18 eGFR 91.98 08/01/24 03:18 BUN/Creatinine Ratio 14.1 (10-20) 08/01/24 03:18 Glucose 229 mg/dl (70-99(Fasting)) H 08/01/24 03:18 Lactate 1.3 mmol/L (0.4-2.0) 07/31/24 22:00 Calcium 8.4 mg/dl (8.6-10.3) L 08/01/24 03:18 Phosphorus 2.5 mg/dl (2.5-4.9) 08/01/24 03:18 Magnesium 1.5 mg/dl (1.7-2.4) L 08/01/24 03:18 Total Bilirubin 0.7 mg/dl (0.2-1.0) 07/31/24 22:00 Direct Bilirubin 0.1 mg/dl (0-0.2) 07/31/24 22:00 AST 12 U/L (13-39) L 07/31/24 22:00 ALT 7 U/L (7-52) 07/31/24 22:00 Alkaline Phosphatase 70 U/L (34-104) 07/31/24 22:00 Troponin I High Sens 53.9 pg/ml (0-14) H* D 08/01/24 00:00 Total Protein 7.2 gm/dl (6.0-8.3) 07/31/24 22:00 Albumin 4.1 gm/dl (3.4-5.0) 07/31/24 22:00 Procalcitonin 0.06 ng/ml (0-0.5) 07/31/24 22:00 Urine Color Yellow 07/31/24 22:40 Urine Appearance Clear (Clear) 07/31/24 22:40 Urine pH 6.0 (4.5-7.5) 07/31/24 22:40 Ur Specific [place] 1.017 (1.000-1.030) 07/31/24 22:40 Urine Protein 2+ (Negative) H 07/31/24 22:40 Urine Glucose (UA) Negative (Negative) 07/31/24 22:40 Urine Ketones Negative (Negative) 07/31/24 22:40 Urine Blood 1+ (Negative) H 07/31/24 22:40 Urine Nitrite Negative (Negative) 07/31/24 22:40 Urine Bilirubin Negative (Negative) 07/31/24 22:40 Urine Urobilinogen Negative (Negative) 07/31/24 22:40 Ur Leukocyte Esterase Negative (Negative) 07/31/24 22:40 Urine WBC (Auto) 0-5 /hpf (0-5) 07/31/24 22:40 Urine RBC (Auto) 6-10 /hpf (0-2) H 07/31/24 22:40 U Hyaline Cast (Auto) 0-2 /lpf (0-2) 07/31/24 22:40 U Epithel Cells (Auto) 0-2 /hpf (0-2) 07/31/24 22:40 Urine Bacteria (Auto) None Seen (None Seen) 07/31/24 22:40 Nasal Screen MRSA (PCR) Negative (Negative) 08/01/24 01: Salicylates < 3.0 mg/dl (3.0-30) L 08/01/24 03:18 Acetaminophen 4 ug/ml (10-30) L 08/01/24 03:18 Adenovirus (PCR) Not Detected (NotDetected) 07/31/24 22:00 B. pertussis DNA (PCR) Not Detected (NotDetected) 07/31/24 22:00 B.parapertussis DNA PCR Not Detected (NotDetected) 07/31/24 22:00 C. pneumoniae DNA (PCR) Not Detected (NotDetected) 07/31/24 22:00 Coronavirus OC43 (PCR) Not Detected (NotDetected) 07/31/24 22:00 Coronavirus HKU1 (PCR) Not Detected (NotDetected) 07/31/24 22:00 Coronavirus 229E (PCR) Not Detected (NotDetected) 07/31/24 22:00 SARS-CoV-2 (PCR) Not Detected (NotDetected) 07/31/24 22:00 Coronavirus NL63 (PCR) Not Detected (NotDetected) 07/31/24 22:00 Human Metapneumovir PCR Not Detected (NotDetected) 07/31/24 22:00 Influenza A (H3) PCR DETECTED (NotDetected) A 07/31/24 22:00 Influenza Type B (PCR) Not Detected (NotDetected) 07/31/24 22:00 M. pneumoniae (PCR) Not Detected (NotDetected) 07/31/24 22:00 Parainfluenza 1 (PCR) Not Detected (NotDetected) 07/31/24 22:00 Parainfluenza 2 (PCR) Not Detected (NotDetected) 07/31/24 22:00 Parainfluenza 3 (PCR) Not Detected (NotDetected) 07/31/24 22:00 Parainfluenza 4 (PCR) Not Detected (NotDetected) 07/31/24 22:00 RSV (PCR) Not Detected (NotDetected) 07/31/24 22:00 Entero/Rhino (PCR) Not Detected (NotDetected) 07/31/24 22:00 Impressions Chest X-Ray 07/31/24 22:01 Exam(s): XR CXR 1 VIEW EXAM: XR Chest, 1 View CLINICAL HISTORY: Reason for exam: Sepsis. TECHNIQUE: Frontal views of the chest. COMPARISON: 06/10/2024. FINDINGS: An endotracheal tube is noted with its tip 3.5 cm above the level of the isabela. A nasogastric tube is noted to cross the diaphragm. Its tip is not visualized on this exam. Lungs: There are areas of increased opacity bilaterally. Pleural space: No pleural effusion is seen. No pneumothorax. Heart: The heart is normal in size.. Mediastinum: Unremarkable. Bones/joints: There is a scoliosis of the spine with degenerative changes. There are postoperative changes in the right shoulder. IMPRESSION: There are bilateral areas of lung scarring. There appears to be a patchy superimposed infiltrate in the right lung. Electronically signed by: Daryl Hilario MD 07/31/24 23:59 PM Code Status & VTE Plan Code Status Conditional code as noted VTE Prophylaxis Plan VTE Prophylaxis will be ordered: Yes Critical Care Time 55 minutes PG Care Time/CCT Total # of Minutes Spent Total Time Spent with Patient: Total time spent is greater than 50% in coordination of care (as documented) at patient's floor/unit and/or counseling patient: Coding Level of Care Code 17870 INT INP/OBS CARE 3/75MIN Diagnoses Septic shock A41.9; R65.21 Influenza A J10.1 Adrenal insufficiency E27.40 Demand ischemia I24.89 Admitted to intensive care unit Z78.9
[2024-08-01] MEDS: ALBUT/IPRATROP 3MG/0.5MG NEB 3 ML VIAL INH SCH ×2 (01:35→14:56)
[2024-08-01] MEDS ORDERED: ENOXAPARIN 1 MG/KG SC SCH (01:35)
[2024-08-01] MEDS: OSELTAMIVIR PHOSPHATE SUSP 75 MG/12.5 ML UDP PO STA (01:40)
[2024-08-01] MEDS: ACETAMINOPHEN 325 MG TAB PO PRN (01:43)
[2024-08-01] MEDS ORDERED: Nursing to Pharmacy Communication SCH ×2 (02:00→03:00)
[2024-08-01 03:42] LABS: Hemoglobin 12.6 g/dl (12.0-16.0); Mean Corpuscular Hemoglobin 31.7 pg (25.0-34.0); Mean Corpuscular Hgb Conc 33.2 g/dL (32.0-36.0); Mean Corpuscular Volume 95.7 fL (80.0-100.0); Mean Platelet Volume 10.1 fL (9.4-12.4); Platelet Count 196 K/uL (130-400); RDW Coefficient of Variation 13.6 % (11.5-14.5); RDW Standard Deviation 48.8 fL (36.4-46.3); Red Blood Count 3.97 M/uL (4.20-5.40); White Blood Count 12.09 K/ul (4.8-10.8)
[2024-08-01 03:55] LABS: BUN Creatinine Ratio 14.1 (10-20); Calcium 8.4 mg/dl (8.6-10.3); Creatinine Clr Calc Pharmacy 61.2 ml/min; Magnesium 1.5 mg/dl (1.7-2.4); Phosphorus 2.5 mg/dl (2.5-4.9); Potassium 3.8 mmol/L (3.5-5.1)
[2024-08-01 04:00] LABS: Acetaminophen 4 ug/ml (10-30); Salicylate < 3.0 mg/dl (3.0-30)
[2024-08-01] MEDS: methylPREDNISolone 40 MG in SYRINGE 0 ML IV SCH (04:19)
[2024-08-01 04:44] LABS: Basophils # (auto) 0.05 K/uL (0.00-0.20); Basophils % (auto) 0.4 %; Immature Granulocytes # (auto) 0.05 K/uL (0.01-0.20); Immature Granulocytes % (auto) 0.4 %; Lymphocytes # (auto) 0.32 K/uL (1.20-3.40); Lymphocytes % (auto) 2.6 %; Monocytes # (auto) 0.23 K/uL (0.11-0.59); Monocytes % (auto) 1.9 %; Neutrophils # (auto) 11.44 K/uL (1.40-6.50); Neutrophils % (auto) 94.7 %
[2024-08-01] MEDS: ICU ELECTROLYTE REPLACEMENT PROTOCOL SCH (04:58)
[2024-08-01] MEDS ORDERED: methylPREDNISolone 125 MG/2 ML VIAL IV SCH ×2 (05:00→09:00)
--- NOTE | 2024-08-01 05:14 | Billing Data ---
Date of Service August 01, 2024 Coding Level of Care Code 47892 CRITICAL CARE
[2024-08-01] MEDS: MAGNESIUM SULFATE / D5W 1 GM/100 ML BAG IV SCH (05:39)
[2024-08-01] MEDS: POTASSIUM CHLORIDE / WTR 20 MEQ/100 ML PLCT IV SCH (05:39)
[2024-08-01] MEDS: POT PHOSPHATE MONOBASIC W/ SOD TAB NG SCH (05:39)
[2024-08-01] MEDS ORDERED: ICU ELECTROLYTE REPLACEMENT PROTOCOL SCH (06:00)
[2024-08-01] MEDS ORDERED: GLUCOSE 40% GEL 15 GM TUBE PO PRN (06:08)
[2024-08-01] MEDS ORDERED: GLUCOSE 10 TAB/TUBE PO PRN (06:08)
[2024-08-01] MEDS ORDERED: DEXTROSE 50% 50 ML SYRINGE IV PRN (06:08)
[2024-08-01] MEDS ORDERED: GLUCAGON FOR INJ 1 MG VIAL SQ PRN (06:08)
[2024-08-01] MEDS ORDERED: CARBOHYDRATES FOR HYPOGLYCEMIA PO PRN (06:08)
[2024-08-01] MEDS: ENOXAPARIN INJ 60 MG/0.6 ML SYR SQ SCH (06:12)
[2024-08-01] MEDS: ICU Protocol for HYPERglycemia SCH (06:13)
[2024-08-01 06:36] LABS: iSTAT Allen Test Pass; iSTAT Art Bld Gas pCO2 Correct 51 mmHg (35-46); iSTAT Art Bld Gas pH Corrected 7.317 (7.35-7.45); iSTAT Arterial Blood Gas HCO3 26 meg/L (19-24); iSTAT Arterial Blood Gas pCO2 51 mmHg (35-46); iSTAT Arterial Blood Gas pH 7.32 (7.35-7.45); iSTAT Arterial Blood Gas pO2 104 mmHg (80-95); iSTAT Arterial Blood Gas pO2 C 106; iSTAT Carbon Dioxide 28 mmol/L (24-31); iSTAT FiO2 40 %; iSTAT Hematocrit 38 % (37-47); iSTAT Hemoglobin 12.9 g/dl (12.0-16.0); iSTAT Sample Type Arterial; iSTAT Site L Radial; iSTAT Sodium 138 mmol/L (135-144); iSTAT SpO2 94
[2024-08-01] MEDS: INSULIN ASPART PER UNIT CHARGE SC STA (06:41)
[2024-08-01] MEDS ORDERED: ICU Protocol for HYPERglycemia SCH ×2 (07:30)
--- NOTE | 2024-08-01 07:35 | Critical Care Progress Note ---
Date of Service August 01, 2024 Assessment & Plan (1) Acute on chronic respiratory failure with hypoxia and hypercapnia: (2) Influenza A: (3) Adrenal insufficiency: (4) Chronic pain: (5) Acute exacerbation of chronic obstructive pulmonary disease: (6) Suicidal risk: (7) Demand ischemia: Plan Reason Critically Ill: 68-year-old female past medical history of COPD, bronchiectasis, active smoker, pulmonary sarcoidosis presented to the hospital for shortness of breath. Intubated in the ER. In the ICU for further management #Suicidal ideation #Acute on chronic hypoxemic and hypercapneic respiratory failure #Influenza A #Acute exacerbation of COPD #Medical non-compliance #Possible medication overdose PFT 09/30/2020: Severe obstructive lung dysfunction with significant bronchodilator response, moderate decrease in DLCO, air trapping FVC 1.94 L 70%, FEV1 0.82 L 37%, FEV1/FVC 42%, DLCO 41% Neuro - [facility] ICU: Unable to assess Propofol and fentanyl for sedation anesthesia Nicotine patch Treatment for overdose of the medications Reynaldo was describing is largely supportive. Thankfully her gabapentin was nearly full. Poison control was notified by the admitting team Psych consult once clinically feasible. Patient will benefit from Palliative discussion as well Cardiac - -- Shock Likely combination of adrenal insufficiency, active stress as well as sedation Vasopressor support to keep MAP goal > 65mmHg Received 2L IVF in ED -- Elevated troponins Type II CO Continue to trend Reduced RV function on prior echo, pulmonary hypertension not yet classified Respiratory - -- VDRF Likely secondary to COPD exacerbation from influenza A Continue with ventilatory support Keep RASS -1 Daily sedation holidays and SBT's --Severe COPD with emphysema and bronchiectasis Noncompliant with medication as well as follow-up with electrician manager --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 --History of PE On Xarelto at home GI - Bowel regimen: Miralax Zofran PRN RENAL/LYTES - -- Monitor BUNs/creatinine Avoid nephrotoxic medications ENDO - BG 140-180 per SCCM guidelines ISS if needed while inpatient -- Adrenal insufficiency On hydrocortisone 10 mg in the morning and 5 mg at night Currently getting stress dose steroids HEME - -- Normocytic anemia Monitor H&H ID - --Influenza A positive Continue with Tamiflu Doxycycline for COPD exacerbation Respiratory BioFire positive only for flu, negative for everything else Procalcitonin 0.06 Nasal MRSA negative Follow-up blood culture and sputum culture --Prophylaxis VTE: Lovenox GI: Pantoprazole Lines: Peripheral Diet: N.p.o. Plan: In/out: +2850, urine output 600 mL ABG 7.32/51/104 on 40% FiO2 Continue with Tamiflu Doxycycline for COPD exacerbation Potassium and magnesium being replaced Add nebulized Perforomist to the regimen para continue with Solu-Medrol 40 mg every 8 hours Patient's as well as daughter who were at bedside were explained regarding the patient's current condition and prognosis Plan is to see how she does in the next couple of days and if there is no improvement and decision regarding extubating and keeping her comfortable will be made. As per the daughter patient did not want trach in future I have personally spent 40 minutes of critical care time in the direct management of this patient. This is a life/limb threatening event. This includes time spent evaluating patient, direct bedside care, chart review, placing orders, interpretation of diagnostic studies, discussion with consultants, patient, and family members, as well as other required patient management activities. This time is exclusive of all separately billable procedures, and teaching time and separate from and in addition to any other critical care service time. Admission and Anticipated Discharge Date Admission Date: August 01, 2024 Subjective Patient seen and examined at bedside. No acute distress, no adverse events overnight She was on 0.15 of Levophed, MAP was in the low 70s and the repeat blood pressure did even go to low 80s. On 40 of propofol and 75 of fentanyl She was RASS -1, breathing with the vent. Easily arousable. Was following simple commands. Tmax 38.5 Review of Systems 2 Review of Systems: All systems reviewed & are unremarkable except as noted in Subjective Physical Exam 2 Physical Exam: Constitutional: No acute distress HEENT: EOMI, PERRLA Respiratory system: Decreased air entry bilaterally, no rhonchi, positive expiratory wheeze bilaterally, positive crackles bilateral lower lobes CVS: S1-S2 positive, no murmurs or gallops Abdomen: Soft, nontender, nondistended, positive bowel sounds x4 Extremities: +2 pulses bilaterally radialis/ dorsalis pedis, no cyanosis, no edema Neuro: RASS -1, following simple commands Psych: Unable to assess G/U: Positive Ravi Skin: no rashes, warm and dry Lymphatic: no cervical or axillary lymphadenopathy Results & Data Results & Data Vital Signs (Past 12 Hours) Vital Signs Temp Pulse Pulse Resp BP BP Pulse Ox 08/01/24 06:29 16 08/01/24 06:00 37.5 C 79 18 94 08/01/24 05:45 95/63 L 08/01/24 05:30 96/65 L 08/01/24 05:30 96/65 L 08/01/24 05:21 37.7 C H 81 18 94 08/01/24 05:15 90/63 L 08/01/24 05:15 90/63 L 08/01/24 05:12 37.7 C H 82 18 94 08/01/24 05:00 95/61 L 08/01/24 04:54 37.9 C H 82 18 93 08/01/24 04:45 91/63 L 08/01/24 04:45 91/63 L 08/01/24 04:45 91/63 L 08/01/24 04:45 37.9 C H 81 18 93 08/01/24 04:30 38.0 C H 81 18 93 08/01/24 04:15 91/60 L 08/01/24 04:15 91/60 L 08/01/24 04:15 91/60 L 08/01/24 04:15 38.0 C H 82 18 93 08/01/24 04:10 85 18 95 08/01/24 04:00 91/62 L 08/01/24 04:00 91/62 L 08/01/24 04:00 91/62 L 08/01/24 04:00 38.1 C H 84 18 92 08/01/24 03:51 08/01/24 03:45 88/59 L 08/01/24 03:42 38.2 C H 83 18 92 08/01/24 03:30 93/61 L 08/01/24 03:16 08/01/24 03:15 83/58 L 08/01/24 03:15 38.2 C H 85 18 94 08/01/24 03:03 38.3 C H 85 18 94 08/01/24 03:00 89/60 L 08/01/24 03:00 89/60 L 08/01/24 03:00 89/60 L 08/01/24 02:45 87/61 L 08/01/24 02:45 87/61 L 08/01/24 02:33 38.4 C H 86 18 94 08/01/24 02:30 94/61 L 08/01/24 01:47 38.5 C H 87 18 94 08/01/24 01:46 90 18 96 08/01/24 01:45 88/60 L 08/01/24 01:45 88/60 L 08/01/24 01:44 38.5 C H 87 18 94 08/01/24 01:35 85 08/01/24 01:30 89/59 L 08/01/24 01:30 89/59 L 08/01/24 01:10 38.5 C H 88 18 92/61 L 94 08/01/24 01:00 88 76/55 L 98 08/01/24 00:55 86 64/43 L 08/01/24 00:55 85 64/43 L 08/01/24 00:40 91 H 18 88/58 L 100 08/01/24 00:33 92 H 18 69/45 L 100 08/01/24 00:27 91 H 18 66/50 L 98 08/01/24 00:26 91 H 43 H 66/50 L 08/01/24 00:18 93 H 18 85/56 L 98 08/01/24 00:16 96 H 85/56 L 07/31/24 23:55 99 H 40 H 90/62 L 96 07/31/24 23:36 18 07/31/24 22:59 111 H 36 H 99 07/31/24 22:51 111 H 22 99 07/31/24 22:30 119 H 22 137/82 99 07/31/24 22:29 118 H 22 99 07/31/24 22:16 118 H 22 122/80 99 07/31/24 21:57 07/31/24 21:57 132 H 28 H 133/88 95 07/31/24 21:57 07/31/24 21:53 132 H O2 Del Method O2 Flow Rate FiO2 08/01/24 06:29 08/01/24 06:00 08/01/24 05:45 08/01/24 05:30 08/01/24 05:30 08/01/24 05:21 08/01/24 05:15 08/01/24 05:15 08/01/24 05:12 08/01/24 05:00 08/01/24 04:54 08/01/24 04:45 08/01/24 04:45 08/01/24 04:45 08/01/24 04:45 08/01/24 04:30 08/01/24 04:15 08/01/24 04:15 08/01/24 04:15 08/01/24 04:15 08/01/24 04:10 40 08/01/24 04:00 08/01/24 04:00 08/01/24 04:00 08/01/24 04:00 08/01/24 03:51 40 08/01/24 03:45 08/01/24 03:42 08/01/24 03:30 08/01/24 03:16 Mechanical Vent 08/01/24 03:15 08/01/24 03:15 08/01/24 03:03 08/01/24 03:00 08/01/24 03:00 08/01/24 03:00 08/01/24 02:45 08/01/24 02:45 08/01/24 02:33 08/01/24 02:30 Mechanical Vent 40 08/01/24 01:47 08/01/24 01:46 40 08/01/24 01:45 08/01/24 01:45 08/01/24 01:44 08/01/24 01:35 08/01/24 01:30 08/01/24 01:30 08/01/24 01:10 Mechanical Vent 08/01/24 01:00 Mechanical Vent 08/01/24 00:55 08/01/24 00:55 08/01/24 00:40 Mechanical Vent 08/01/24 00:33 Mechanical Vent 08/01/24 00:27 Mechanical Vent 08/01/24 00:26 08/01/24 00:18 Mechanical Vent 08/01/24 00:16 07/31/24 23:55 Mechanical Vent 07/31/24 23:36 40 07/31/24 22:59 Mechanical Vent 07/31/24 22:51 Mechanical Vent 40 07/31/24 22:30 Mechanical Vent 07/31/24 22:29 40 07/31/24 22:16 Mechanical Vent 07/31/24 21:57 Non-rebreather 07/31/24 21:57 Non-rebreather 15 07/31/24 21:57 Non-rebreather 15 07/31/24 21:53 Laboratory Results 08/01/24 03:18 08/01/24 03:18 Coding Level of Care Code 78548 CRITICAL CARE 1ST 30-74M Diagnoses Acute on chronic respiratory failure with hypoxia and hypercapnia J96.21; J96.22 Influenza A J10.1 Adrenal insufficiency E27.40 Chronic pain G89.29 Acute exacerbation of chronic obstructive pulmonary disease J44.1 Suicidal risk R45.89 Demand ischemia I24.89
[2024-08-01] MEDS ORDERED: FOLIC ACID 1 MG TAB PO SCH (09:00)
[2024-08-01] MEDS ORDERED: ROSUVASTATIN CALCIUM 5 MG TAB PO SCH (09:00)
[2024-08-01] MEDS ORDERED: PANTOprazole 40 MG TAB PO SCH (09:00)
[2024-08-01] MEDS: NICOTINE 7 MG/24 HR TDSY TD SCH (09:14)
[2024-08-01] MEDS: PANTOprazole 40 MG/10 ML SYR IV SCH (09:14)
[2024-08-01] MEDS: OSELTAMIVIR PHOSPHATE SUSP 75 MG/12.5 ML UDP PO SCH (09:17)
--- NOTE | 2024-08-01 09:38 | XCELERA ---
[id number]
--- NOTE | 2024-08-01 09:53 | Electrocardiogram Report ---
Test Reason : Blood Pressure : */* mmHG Vent. Rate : 132 BPM Atrial Rate : 132 BPM P-R Int : 132 ms QRS Dur : 90 ms QT Int : 406 ms P-R-T Axes : 83 240 67 degrees QTcB Int : 601 ms Poor data quality, interpretation may be adversely affected Sinus tachycardia Right superior axis deviation Inferior infarct , age undetermined Nonspecific ST and T wave abnormality Abnormal ECG When compared with ECG of 10-Jun-2024 14:47, Questionable change in QRS axis ST now depressed in Anterior leads T wave inversion more evident in Anterior leads Confirmed by Alan Stoddard ([id number]) on 08/01/2024 9:52:45 AM Referred By: REFERRED SELF Confirmed By: Alan Stoddard
--- NOTE | 2024-08-01 09:59 | Electrocardiogram Report ---
Test Reason : Blood Pressure : */* mmHG Vent. Rate : 85 BPM Atrial Rate : 85 BPM P-R Int : 124 ms QRS Dur : 92 ms QT Int : 388 ms P-R-T Axes : 82 237 78 degrees QTcB Int : 461 ms Poor data quality, interpretation may be adversely affected Normal sinus rhythm Low voltage QRS Poor R-wave progression ; consider anterior infarct, lead placement, or normal variant Abnormal ECG When compared with ECG of 10-Jun-2024 14:47, Questionable change in QRS axis Non-specific change in ST segment in Anterior leads Confirmed by Alan Stoddard ([id number]) on 08/01/2024 9:58:46 AM Referred By: REFERRED SELF Confirmed By: Alan Stoddard
--- NOTE | 2024-08-01 10:16 | Electrocardiogram Report ---
Test Reason : Blood Pressure : */* mmHG Vent. Rate : 76 BPM Atrial Rate : 76 BPM P-R Int : 134 ms QRS Dur : 86 ms QT Int : 422 ms P-R-T Axes : 85 88 87 degrees QTcB Int : 474 ms Normal sinus rhythm Nonspecific ST and T wave abnormality Abnormal ECG When compared with ECG of 01-Aug-2024 03:07, (unconfirmed) Questionable change in QRS axis Minimal criteria for Inferior infarct are no longer Present Confirmed by Alan Stoddard ([id number]) on 08/01/2024 10:16:28 AM Referred By: REFERRED SELF Confirmed By: Alan Stoddard
[2024-08-01] MEDS: DOXYCYCLINE HYCLATE 100 MG in D5W MINI-B 100 ML (Q12H) IV SCH (10:52)
[2024-08-01] MEDS: TUBE FEEDING WATER FLUSH GT SCH (10:54)
[2024-08-01] MEDS: PEPTAMEN INTENSE VHP 1.0 CAL 1,000 ML BAG OG SCH (11:01)
[2024-08-01] MEDS: VASOPRESSION #-# Do NOT Titrate #-# Option IV SCH (11:10)
[2024-08-01] MEDS: ESCITALOPRAM OXALATE ORAL SOLN 10 MG/10 ML UDP NG SCH (11:33)
[2024-08-01] MEDS: INSULIN ASPART PER UNIT CHARGE SC SCH (11:40)
--- NOTE | 2024-08-01 12:16 | History & Physical Bridge Note ---
Date of Service August 01, 2024 History & Physical Bridge Note I have examined the patient, reviewed the History & Physical and in the interval since the performance of the History & Physical I have noted the following changes of clinical significance: Pt remains sedated and intubated, now on levophed and Vasopressin as well as stress dose steroids for BP support. PULM added doxy and dcd azithro due to prlonged QT on ECG. Discussed care with sister at bedside. Prognosis guarded Vital sreviewed RRR no mgr diffuse wheezing exp, mech ventilated Abd +BS soft NT ND Ext no edema CBC, BMP, Mag, phos, CXR reviewed Replacing lytes, continue steroids, Tamiflu, doxy venot management as per ICU
[2024-08-01] MEDS: LORazepam 2 MG/1 ML VIAL IV PRN (15:35)
[2024-08-01] MEDS: LORazepam 2 MG/1 ML VIAL ONE (15:36)
[2024-08-01] MEDS ORDERED: RIVAROXABAN 20 MG TAB PO SCH (16:30)
[2024-08-01] MEDS: FORMOTEROL 20 MCG/2 ML VIAL NEB SCH (19:23)
[2024-08-01 19:26] LABS: BUN Creatinine Ratio 20.3 (10-20); Calcium 8.2 mg/dl (8.6-10.3); Creatinine Clr Calc Pharmacy 73.7 ml/min; Phosphorus 2.7 mg/dl (2.5-4.9); Potassium 4.7 mmol/L (3.5-5.1)
[2024-08-01 20:19] LABS: Magnesium 2.6 mg/dl (1.7-2.4)
[2024-08-01] MEDS: fentaNYL BOLUS from BAG IV PRN (23:47)
[2024-08-01] MEDS: PROPOFOL BOLUS FROM BAG IV PRN (23:47)
[2024-08-02 05:12] LABS: Basophils # (auto) 0.01 K/uL (0.00-0.20); Basophils % (auto) 0.1 %; Hematocrit (blood only) 37.6 % (37.0-47.0); Hemoglobin 12.2 g/dl (12.0-16.0); Immature Granulocytes # (auto) 0.03 K/uL (0.01-0.20); Immature Granulocytes % (auto) 0.3 %; Lymphocytes # (auto) 0.68 K/uL (1.20-3.40); Lymphocytes % (auto) 7.6 %; Mean Corpuscular Hemoglobin 31.6 pg (25.0-34.0); Mean Corpuscular Hgb Conc 32.4 g/dL (32.0-36.0); Mean Corpuscular Volume 97.4 fL (80.0-100.0); Mean Platelet Volume 10.2 fL (9.4-12.4); Monocytes # (auto) 0.52 K/uL (0.11-0.59); Monocytes % (auto) 5.8 %; Neutrophils # (auto) 7.72 K/uL (1.40-6.50); Neutrophils % (auto) 86.2 %; Platelet Count 171 K/uL (130-400); RDW Coefficient of Variation 13.7 % (11.5-14.5); RDW Standard Deviation 48.8 fL (36.4-46.3); Red Blood Count 3.86 M/uL (4.20-5.40); White Blood Count 8.96 K/ul (4.8-10.8)
[2024-08-02 05:38] LABS: BUN Creatinine Ratio 25.7 (10-20); Calcium 8.1 mg/dl (8.6-10.3); Creatinine Clr Calc Pharmacy 62.1 ml/min; Magnesium 2.5 mg/dl (1.7-2.4); Phosphorus 3.3 mg/dl (2.5-4.9); Potassium 4.6 mmol/L (3.5-5.1)
--- NOTE | 2024-08-02 07:28 | Critical Care Progress Note ---
Date of Service August 02, 2024 Assessment & Plan (1) Acute on chronic respiratory failure with hypoxia and hypercapnia: (2) Influenza A: (3) Adrenal insufficiency: (4) Chronic pain: (5) Acute exacerbation of chronic obstructive pulmonary disease: (6) Suicidal risk: (7) Demand ischemia: Plan Reason Critically Ill: 68-year-old female past medical history of COPD, bronchiectasis, active smoker, pulmonary sarcoidosis presented to the hospital for shortness of breath. Intubated in the ER. In the ICU for further management #Suicidal ideation #Acute on chronic hypoxemic and hypercapneic respiratory failure #Influenza A #Acute exacerbation of COPD #Medical non-compliance #Possible medication overdose PFT 09/30/2020: Severe obstructive lung dysfunction with significant bronchodilator response, moderate decrease in DLCO, air trapping FVC 1.94 L 70%, FEV1 0.82 L 37%, FEV1/FVC 42%, DLCO 41% Neuro - [facility] ICU: Unable to assess Propofol and fentanyl for sedation anesthesia Nicotine patch Treatment for overdose of the medications Reynaldo was describing is largely supportive. Thankfully her gabapentin was nearly full. Poison control was notified by the admitting team Psych consult once clinically feasible. Patient will benefit from Palliative discussion as well Cardiac - -- Shock Likely combination of adrenal insufficiency, active stress as well as sedation Vasopressor support to keep MAP goal > 65mmHg Received 2L IVF in ED -- Elevated troponins Type II VA Continue to trend Reduced RV function on prior echo, pulmonary hypertension not yet classified Respiratory - -- VDRF Likely secondary to COPD exacerbation from influenza A Continue with ventilatory support Keep RASS -1 Daily sedation holidays and SBT's --Severe COPD with emphysema and bronchiectasis Supposed to be on Anoro as well as Pulmicort flex inhaler at home Noncompliant with medication as well as 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 with diesel 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 --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 --History of PE On Xarelto at home GI - Bowel regimen: Miralax Zofran PRN RENAL/LYTES - -- Monitor BUNs/creatinine Avoid nephrotoxic medications ENDO - BG 140-180 per SCCM guidelines ISS if needed while inpatient -- Adrenal insufficiency On hydrocortisone 10 mg in the morning and 5 mg at night Currently getting stress dose steroids HEME - -- Normocytic anemia Monitor H&H ID - --Influenza A positive Continue with Tamiflu Doxycycline for COPD exacerbation Respiratory BioFire positive only for flu, negative for everything else Procalcitonin 0.06 Nasal MRSA negative Follow-up blood culture and sputum culture --Prophylaxis VTE: Lovenox GI: Pantoprazole Lines: Peripheral Diet: Tube feeds on hold as patient was getting similar stuff on the hi-low Plan: In/out: Negative 490, urine output 2024 ABG 7.34/51/67 on 40%, PEEP of 5 Chest x-ray from today shows ET tube approximately 1.3-1.5 cm from the isabela, retract it by 1 cm Initial EKG from 5 AM today showed concave mild elevation of ST in lead II and III likely representing early presentation. I repeated EKG at 9 AM which does not show any ST elevation Troponin has been ordered. Continue with Tamiflu Continue with doxycycline for COPD exacerbation Continue with Perforomist to the regimen Will decrease Solu-Medrol to 40 mg twice daily as of tomorrow Patient is requiring a lot of sedation, she is getting Ativan as needed. Got 2 mg overnight. Continue with Lexapro Will give a trial of extubation probably tomorrow if feasible, but I do think she is going to need Precedex on board prior to SBT Patient's as well as daughter who were at bedside were explained regarding the patient's current condition and prognosis Plan is to see how she does in the next couple of days and if there is no improvement and decision regarding extubating and keeping her comfortable will be made. As per the daughter patient did not want trach in future I have personally spent 38 minutes of critical care time in the direct management of this patient. This is a life/limb threatening event. This includes time spent evaluating patient, direct bedside care, chart review, placing orders, interpretation of diagnostic studies, discussion with consultants, patient, and family members, as well as other required patient management activities. This time is exclusive of all separately billable procedures, and teaching time and separate from and in addition to any other critical care service time. Admission and Anticipated Discharge Date Admission Date: August 01, 2024 Subjective Patient seen and examined at bedside. No acute distress, no adverse events overnight At the time of examination patient was on 38 propofol, 150 of fentanyl 0.04 of Levophed with MAP in the low 80s. I went down to 0.02 She was breathing with the vent. But she was easily arousable. Fortunately was not following any commands today. But she was tracking and moving all extremities spontaneously Review of Systems 2 Review of Systems: All systems reviewed & are unremarkable except as noted in Subjective Physical Exam 2 Physical Exam: Constitutional: No acute distress HEENT: EOMI, PERRLA Respiratory system: Decreased air entry bilaterally, no rhonchi, positive expiratory wheeze bilaterally, improved from before, positive crackles bilateral lower lobes CVS: S1-S2 positive, no murmurs or gallops Abdomen: Soft, nontender, nondistended, positive bowel sounds x4 Extremities: +2 pulses bilaterally radialis/ dorsalis pedis, no cyanosis, no edema Neuro: RASS -1, moving all extremities spontaneously, breathing with the vent Psych: Unable to assess G/U: Positive Ravi Skin: no rashes, warm and dry Lymphatic: no cervical or axillary lymphadenopathy Results & Data Results & Data Vital Signs (Past 12 Hours) Vital Signs Temp Pulse Pulse Resp BP BP Pulse Ox 08/02/24 07:08 60 08/02/24 06:00 37.0 C 58 L 18 129/74 93 08/02/24 05:45 61 18 129/72 93 08/02/24 05:30 37.0 C 59 L 18 113/71 94 08/02/24 05:00 37.0 C 61 18 115/69 96 08/02/24 04:30 37.0 C 75 18 128/75 95 08/02/24 04:00 37.0 C 59 L 18 115/67 95 08/02/24 04:00 08/02/24 03:51 57 L 18 95 08/02/24 03:45 37.0 C 59 L 18 114/66 94 08/02/24 03:30 37.0 C 60 18 114/65 94 08/02/24 03:15 37.0 C 60 18 113/68 95 08/02/24 03:00 37.0 C 60 18 111/66 94 08/02/24 02:30 60 18 111/67 94 08/02/24 01:33 37.1 C 63 18 91 08/02/24 01:30 107/64 08/02/24 01:30 37.1 C 63 18 107/64 95 08/02/24 01:00 37.1 C 70 18 104/63 95 08/02/24 00:45 37.1 C 64 18 104/61 95 08/02/24 00:15 37 C 64 18 111/69 93 08/02/24 00:00 37.1 C 82 18 97/65 L 96 08/02/24 00:00 08/02/24 00:00 71 08/01/24 23:45 37.0 C 83 18 94/63 L 92 08/01/24 23:30 36.9 C 73 18 121/72 94 08/01/24 23:18 58 L 18 95 08/01/24 23:00 37.0 C 74 18 118/68 95 08/01/24 22:45 37.0 C 72 18 111/65 95 08/01/24 22:30 36.9 C 63 18 117/72 99 08/01/24 22:29 36.9 C 59 L 18 117/72 92 08/01/24 22:00 36.9 C 61 18 110/73 100 08/01/24 21:30 37.0 C 61 18 115/71 99 08/01/24 21:00 37.0 C 68 18 112/68 98 08/01/24 20:00 37.0 C 60 18 104/68 97 08/01/24 20:00 08/01/24 19:45 37.1 C 60 18 101/66 95 08/01/24 19:30 37.2 C 60 18 108/66 95 08/01/24 19:30 O2 Del Method FiO2 08/02/24 07:08 08/02/24 06:00 Mechanical Vent 40 08/02/24 05:45 Mechanical Vent 40 08/02/24 05:30 Mechanical Vent 40 08/02/24 05:00 Mechanical Vent 40 08/02/24 04:30 Mechanical Vent 40 08/02/24 04:00 Mechanical Vent 40 08/02/24 04:00 40 08/02/24 03:51 40 08/02/24 03:45 Mechanical Vent 40 08/02/24 03:30 Mechanical Vent 40 08/02/24 03:15 Mechanical Vent 40 08/02/24 03:00 Mechanical Vent 40 08/02/24 02:30 Mechanical Vent 40 08/02/24 01:33 08/02/24 01:30 08/02/24 01:30 Mechanical Vent 40 08/02/24 01:00 Mechanical Vent 40 08/02/24 00:45 Mechanical Vent 40 08/02/24 00:15 Mechanical Vent 40 08/02/24 00:00 Mechanical Vent 40 08/02/24 00:00 40 08/02/24 00:00 08/01/24 23:45 Mechanical Vent 40 08/01/24 23:30 Mechanical Vent 40 08/01/24 23:18 30 08/01/24 23:00 Mechanical Vent 40 08/01/24 22:45 Mechanical Vent 40 08/01/24 22:30 Mechanical Vent 40 08/01/24 22:29 Mechanical Vent 40 08/01/24 22:00 Mechanical Vent 40 08/01/24 21:30 Mechanical Vent 40 08/01/24 21:00 Mechanical Vent 40 08/01/24 20:00 Mechanical Vent 40 08/01/24 20:00 40 08/01/24 19:45 Mechanical Vent 40 08/01/24 19:30 Mechanical Vent 40 08/01/24 19:30 Mechanical Vent Laboratory Results 08/02/24 04:11 08/02/24 04:11 Coding Level of Care Code 41978 CRITICAL CARE 1ST 30-74M Diagnoses Acute on chronic respiratory failure with hypoxia and hypercapnia J96.21; J96.22 Influenza A J10.1 Adrenal insufficiency E27.40 Chronic pain G89.29 Acute exacerbation of chronic obstructive pulmonary disease J44.1 Suicidal risk R45.89 Demand ischemia I24.89
[2024-08-02 07:42] LABS: iSTAT Allen Test Pass; iSTAT Art Bld Gas pCO2 Correct 52 mmHg (35-46); iSTAT Arterial Blood Gas HCO3 28 meg/L (19-24); iSTAT Arterial Blood Gas pCO2 51 mmHg (35-46); iSTAT Arterial Blood Gas pH 7.34 (7.35-7.45); iSTAT Arterial Blood Gas pO2 67 mmHg (80-95); iSTAT Arterial Blood Gas pO2 C 68; iSTAT Carbon Dioxide 29 mmol/L (24-31); iSTAT FiO2 40 %; iSTAT Hematocrit 36 % (37-47); iSTAT Hemoglobin 12.2 g/dl (12.0-16.0); iSTAT Potassium 4.7 mmol/L (3.3-5.0); iSTAT Sample Type Arterial; iSTAT Site R Radial; iSTAT Sodium 135 mmol/L (135-144); iSTAT SpO2 92
--- NOTE | 2024-08-02 07:52 | XRay Report ---
EXAM: XR chest 1V portable CLINICAL HISTORY: eval lines/tubes/lung khan. TECHNIQUE: X-ray images of the chest were obtained in 1 frontal projections. COMPARISON: 07/31/2024. FINDINGS: ETT is about 1.3 cm from the isabela. Right CVL terminates in the SVC. Pulmonary Parenchyma: Multiple bilateral irregular patchy and fibrotic opacities (stable). Bilateral enlarged hilar shadows with para hilar irregular opacities with traction on both arden (stable). Tenting of the right hemidiaphragm with right basal atelectasis (stable). Bluting of the right costophrenic angle, possible effusion or thickening (stable). Heart and Mediastinum: Heart size and shape are normal. No mediastinal widening or masses. No hilar or mediastinal lymphadenopathy. Bony Thorax: The bony thorax appears intact without fractures or deformities. Right shoulder prosthesis. Soft Tissues: Soft tissues overlying the chest wall are unremarkable. IMPRESSION: 1. ETT is about 1.3 cm from the isabela. Needs adjustment. 2. Right CVL terminates in the SVC. 3. Stable chest findings as described, likely related to chronic pulmonary parenchymal changes (old granulomatous infection and fibrosis) with possible superimposed infiltrates. Electronically signed by Marcos Olivares 08-02-2024 07:51 AM
[2024-08-02 09:31] LABS: Troponin I High Sensitivity 24.1 pg/ml (0-14)
[2024-08-02] MEDS: ALBUTEROL 0.083% NEBU SOLN 3 ML VIAL NEB PRN (11:03)
[2024-08-02] MEDS: METOCLOPRAMIDE HCL INJ 5 MG/ML 2 ML VIAL IV PRN (11:06)
--- NOTE | 2024-08-02 14:36 | Electrocardiogram Report ---
Test Reason : Blood Pressure : */* mmHG Vent. Rate : 58 BPM Atrial Rate : 58 BPM P-R Int : 140 ms QRS Dur : 88 ms QT Int : 448 ms P-R-T Axes : 74 77 69 degrees QTcB Int : [address] elevation, consider early repolarization, pericarditis, or injury Abnormal ECG When compared with ECG of 01-Aug-2024 09:09, No significant change was found Confirmed by Alan Stoddard ([id number]) on 08/02/2024 2:36:06 PM Referred By: REFERRED SELF Confirmed By: Alan Stoddard
--- NOTE | 2024-08-02 14:40 | Electrocardiogram Report ---
Test Reason : Blood Pressure : */* mmHG Vent. Rate : 76 BPM Atrial Rate : 76 BPM P-R Int : 136 ms QRS Dur : 88 ms QT Int : 400 ms P-R-T Axes : 87 76 57 degrees QTcB Int : 450 ms Normal sinus rhythm Low voltage QRS Borderline ECG When compared with ECG of 02-Aug-2024 05:11, (unconfirmed) No significant change was found Confirmed by Alan Stoddard ([id number]) on 08/02/2024 2:39:50 PM Referred By: REFERRED SELF Confirmed By: Alan Stoddard
--- NOTE | 2024-08-02 18:14 | Hospitalist Progress Note ---
Date of Service August 02, 2024 Assessment & Plan (1) Septic shock: (2) Influenza A: (3) Adrenal insufficiency: (4) Demand ischemia: Plan This patient is a 68-year-old female with a h/o severe COPD on home O2, myofascial pain syndrome, adrenal insufficiency, GERD, vitamin D deficiency, bronchiectasis, ambulatory dysfunction, HLD, anxiety/depression, postinflammatory pulmonary fibrosis, tobacco use disorder, sarcoidosis, and history of PE on Xarelto who p/w worsening SOB and cough, severe lethargy, hypoxia with POx in the 70s. Tested positive for Influenza A and had an aspiration event in ED, acutely decompensated, and was intubated by ED staff for airway protection. She then became hypotensive, with BP 65/43, and started on Levophed. She tested positive for Influenza A. #Septic shock/Adrenal insufficiency/Suspected Aspiration pneumonia/Influenza A/Acute on chronic respiratory failure with hypoxemia/COPD exacerbation With CXR with possible right sided PNA and chronic fibrosis changes. Could be aspiration but PULM thinks doxycycline coverage is sufficient. Remains sedated and on ventilator. Now weaned off vasopressin and remains on low dose of levophed. Is on stress dose steroids -continue Tamiflu 75 mg per OGT twice daily x 5 day course -continue Solu-Medrol 40 mg IV every 8 hours -continue doxycycline x 7 day course -Ventilator management and sedation per rag washer team-plan to attempt extubation on 08/03 -continue bronchodilators, pulm toilet -continue to follow Sputum cx and Blood cx-NGTD #Demand ischemia-Initial troponin 31.0, with follow-up 53.9 on day of admission. ECHO showed EF 55-60%,elevated RVSP,mild LVH, mild MR. ECG on AM of 08/[address] elevation in inferior leads, however serial trop went down to 19 and repeat ECG improved. -monitor on tele #History of pulmonary embolism- Changed Xarelto to Lovenox 1 mg/kg SQ every 12 hours while on vent in case of need for procedure #Adrenal insufficiency-typically on po hydrocortisone at home. Solu-Medrol used as treatment for pulmonary status, will act as stress dosing #GERD-continue PPI #Anxiety-continue prn lorazepam, escitalopram #HLD-continue statin DVT proph-Lovenox Dispo-continued stay in ICU, guarded prognosis Admission and Anticipated Discharge Date Admission Date: August 01, 2024 Subjective Patient remains intubated and sedated, however is weaned off of vasopressin and is on minimal doses of Levophed. Had an ECG earlier this morning to check QT which did show some ST elevation in inferior leads but troponins were only minimally elevated on serial trend and repeat ECG improved, likely early repolarization. Physical Exam Constitutional: + lethargic (Sedated) and + mechanically ventilated; no acute distress ENMT: ET tube in place Respiratory: normal respiratory effort; no cough Auscultation: + wheezes (Diffuse expiratory but proved from previous); no crackles and no rhonchi Cardiovascular: Rate/Rhythm: regular rate and regular rhythm Heart Sounds: no murmur Extremities: no edema Gastrointestinal (Abdomen): normal bowel sounds, soft, nontender, no hepatosplenomegaly Genitourinary: Ravi catheter in place Results & Data Results & Data Vital Signs (Past 12 Hours) Vital Signs Temp Pulse Resp BP Pulse Ox O2 Del Method FiO2 08/02/24 17:45 103/81 08/02/24 17:45 37.4 C 97 H 18 94 08/02/24 17:36 37.4 C 96 H 18 93 08/02/24 17:30 98/62 L 08/02/24 17:27 37.4 C 92 H 18 93 08/02/24 17:21 37.4 C 93 H 18 95 08/02/24 17:06 37.4 C 95 H 18 93 08/02/24 16:57 37.4 C 94 H 18 96 08/02/24 16:30 93/58 L 08/02/24 16:30 37.3 C 97 H 18 93 08/02/24 16:24 37.3 C 96 H 18 92 08/02/24 16:15 97/60 L 08/02/24 16:09 37.2 C 93 H 18 94 08/02/24 16:06 37.2 C 92 H 18 93 08/02/24 16:00 100/60 08/02/24 16:00 40 08/02/24 15:57 37.2 C 92 H 18 94 08/02/24 15:54 37.2 C 89 18 95 Mechanical Vent 40 08/02/24 15:45 96/59 L 08/02/24 15:42 37.2 C 85 18 94 01/31/25 15:36 37.2 C 79 8 L 96 08/02/24 15:30 94/60 L 08/02/24 15:30 75 18 97 40 08/02/24 15:27 37.2 C 77 18 97 08/02/24 15:18 37.2 C 75 18 97 08/02/24 15:15 98/61 L 08/02/24 15:06 37.2 C 76 18 97 08/02/24 15:00 94/56 L 08/02/24 14:59 78 08/02/24 14:54 37.2 C 79 18 96 08/02/24 14:33 37.1 C 77 18 97 08/02/24 14:30 96/55 L 08/02/24 14:24 37.1 C 76 18 97 Mechanical Vent 40 08/02/24 14:15 95/55 L 08/02/24 14:12 37.1 C 77 18 96 08/02/24 14:03 37.1 C 78 18 96 08/02/24 14:00 87/59 L 08/02/24 13:45 96/56 L 08/02/24 13:36 37.1 C 81 18 96 08/02/24 13:30 92/53 L 08/02/24 13:30 37.1 C 83 18 96 08/02/24 13:15 90/53 L 08/02/24 13:09 37.2 C 88 18 97 08/02/24 13:06 37.2 C 88 18 97 08/02/24 13:00 93/55 L 08/02/24 12:48 37.1 C 103 H 19 89 L 08/02/24 12:45 120/60 08/02/24 12:39 37.2 C 95 H 18 91 08/02/24 12:30 37.2 C 87 18 95 Mechanical Vent 40 08/02/24 12:30 98/58 L 08/02/24 12:15 91/53 L 08/02/24 12:00 98/56 L 08/02/24 11:57 40 08/02/24 11:51 37.2 C 89 18 88 L 08/02/24 11:45 122/72 08/02/24 11:45 37.2 C 77 18 95 Mechanical Vent 40 08/02/24 11:30 113/66 08/02/24 11:21 37.3 C 78 18 89 L 08/02/24 11:15 104/63 08/02/24 11:09 37.3 C 74 18 98 08/02/24 11:07 67 18 94 40 08/02/24 11:00 104/65 08/02/24 10:51 37.4 C 70 18 92 08/02/24 10:45 105/64 08/02/24 10:42 37.3 C 74 18 92 08/02/24 10:30 111/68 08/02/24 10:30 37.3 C 82 18 95 08/02/24 10:15 112/65 08/02/24 10:12 37.3 C 70 18 89 L 08/02/24 10:00 102/61 08/02/24 09:57 37.4 C 65 18 95 08/02/24 09:45 97/54 L 08/02/24 09:39 37.4 C 75 18 90 08/02/24 09:30 102/62 08/02/24 09:24 37.4 C 75 19 92 08/02/24 09:15 100/61 08/02/24 09:12 37.4 C 83 19 90 08/02/24 09:00 102/63 08/02/24 09:00 37.4 C 84 19 95 08/02/24 09:00 Mechanical Vent 08/02/24 08:45 94/60 L 08/02/24 08:36 37.4 C 83 18 91 08/02/24 08:33 37.4 C 83 18 90 08/02/24 08:31 91/54 L 08/02/24 08:30 37.3 C 81 18 90 Mechanical Vent 40 08/02/24 08:21 37.3 C 87 18 90 08/02/24 08:06 60 18 92 40 08/02/24 08:00 106/56 L 08/02/24 08:00 37.3 C 84 19 88 L 08/02/24 08:00 40 08/02/24 07:53 113/79 08/02/24 07:51 37.3 C 61 13 93 08/02/24 07:46 110/59 L 08/02/24 07:42 37.3 C 62 18 93 08/02/24 07:33 37.2 C 59 L 18 93 08/02/24 07:30 141/74 H 08/02/24 07:18 37.2 C 60 18 92 Mechanical Vent 40 08/02/24 07:15 117/82 08/02/24 07:12 37.1 C 59 L 18 92 08/02/24 07:08 60 08/02/24 07:06 37.1 C 56 L 18 92 08/02/24 07:00 144/77 H 08/02/24 06:48 37.1 C 60 18 89 L 08/02/24 06:45 131/80 08/02/24 06:45 37.1 C 60 18 90 08/02/24 06:18 37.0 C 57 L 18 91 Laboratory Results CBC, BMP, ABG, magnesium, phosphorus, sputum culture, blood culture reviewed Diagnostic Findings Chest x-ray reviewed PG Care Time/CCT Total # of Minutes Spent Total Time Spent with Patient: Total time spent is greater than 50% in coordination of care (as documented) at patient's floor/unit and/or counseling patient: Coding Level of Care Code 61571 SUB INP/OBS CARE 3/50MIN Diagnoses Septic shock A41.9; R65.21 Influenza A J10.1 Adrenal insufficiency E27.40 Demand ischemia I24.89
[2024-08-02] MEDS: LORazepam 2 MG/1 ML VIAL IV PRN (20:33)
[2024-08-02] MEDS: METOCLOPRAMIDE HCL INJ 5 MG/ML 2 ML VIAL IV ONE (20:35)
[2024-08-02] MEDS ORDERED: STAT IV Infusion **Titration per Protocol STA (21:28)
[2024-08-02] MEDS ORDERED: Nursing to Pharmacy Communication SCH (21:30)
[2024-08-03] MEDS: dexMEDEtomidine 200 MCG/50 ML BAG IV SCH (05:09)
[2024-08-03 05:12] LABS: Basophils # (auto) 0.01 K/uL (0.00-0.20); Basophils % (auto) 0.1 %; Hematocrit (blood only) 33.1 % (37.0-47.0); Hemoglobin 10.8 g/dl (12.0-16.0); Immature Granulocytes # (auto) 0.05 K/uL (0.01-0.20); Immature Granulocytes % (auto) 0.5 %; Lymphocytes # (auto) 0.59 K/uL (1.20-3.40); Lymphocytes % (auto) 5.6 %; Mean Corpuscular Hgb Conc 32.6 g/dL (32.0-36.0); Mean Corpuscular Volume 95.1 fL (80.0-100.0); Mean Platelet Volume 10.1 fL (9.4-12.4); Monocytes # (auto) 0.48 K/uL (0.11-0.59); Monocytes % (auto) 4.6 %; Neutrophils # (auto) 9.37 K/uL (1.40-6.50); Neutrophils % (auto) 89.2 %; Platelet Count 148 K/uL (130-400); RDW Standard Deviation 48.8 fL (36.4-46.3); Red Blood Count 3.48 M/uL (4.20-5.40)
[2024-08-03 05:38] LABS: BUN Creatinine Ratio 41.2 (10-20); Calcium 8.7 mg/dl (8.6-10.3); Creatinine Clr Calc Pharmacy 89.3 ml/min; Magnesium 2.3 mg/dl (1.7-2.4); Phosphorus 2.4 mg/dl (2.5-4.9); Potassium 4.5 mmol/L (3.5-5.1)
--- NOTE | 2024-08-03 07:17 | Electrocardiogram Report ---
Test Reason : Blood Pressure : */* mmHG Vent. Rate : 60 BPM Atrial Rate : 60 BPM P-R Int : 136 ms QRS Dur : 88 ms QT Int : 456 ms P-R-T Axes : 78 81 70 degrees QTcB Int : 456 ms Normal sinus rhythm Low voltage QRS Borderline ECG When compared with ECG of 01-Aug-2024 09:09, No significant change was found Confirmed by Joe Melendez ([id number]) on 08/03/2024 7:17:16 AM Referred By: REFERRED SELF Confirmed By: Joe Melendez
--- NOTE | 2024-08-03 08:13 | Critical Care Progress Note ---
Date of Service August 03, 2024 Assessment & Plan (1) Acute on chronic respiratory failure with hypoxia and hypercapnia: (2) Influenza A: (3) Adrenal insufficiency: (4) Chronic pain: (5) Acute exacerbation of chronic obstructive pulmonary disease: (6) Suicidal risk: (7) Demand ischemia: Plan Reason Critically Ill: 68-year-old female past medical history of COPD, bronchiectasis, active smoker, pulmonary sarcoidosis presented to the hospital for shortness of breath. Intubated in the ER. In the ICU for further management #Suicidal ideation #Acute on chronic hypoxemic and hypercapneic respiratory failure #Influenza A #Acute exacerbation of COPD #Medical non-compliance #Possible medication overdose PFT 09/30/2020: Severe obstructive lung dysfunction with significant bronchodilator response, moderate decrease in DLCO, air trapping FVC 1.94 L 70%, FEV1 0.82 L 37%, FEV1/FVC 42%, DLCO 41% Neuro - [facility] ICU: Unable to assess Propofol and fentanyl for sedation anesthesia Nicotine patch Treatment for overdose of the medications Reynaldo was describing is largely supportive. Thankfully her gabapentin was nearly full. Poison control was notified by the admitting team Psych consult once clinically feasible. Patient will benefit from Palliative discussion as well Cardiac - -- Shock Likely combination of adrenal insufficiency, active stress as well as sedation Vasopressor support to keep MAP goal > 65mmHg -- Elevated troponins Type II [place] Continue to trend Reduced RV function on prior echo, pulmonary hypertension not yet classified Respiratory - -- VDRF Likely secondary to COPD exacerbation from influenza A Continue with ventilatory support Keep RASS -1 Daily sedation holidays and SBT's --Severe COPD with emphysema and bronchiectasis Supposed to be on Anoro as well as Pulmicort flex inhaler at home Noncompliant with medication as well as follow-up with assistant manager --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 --History of PE On Xarelto at home GI - Bowel regimen: Miralax Zofran PRN RENAL/LYTES - -- Monitor BUNs/creatinine Avoid nephrotoxic medications ENDO - BG 140-180 per [facility] guidelines ISS if needed while inpatient -- Adrenal insufficiency On hydrocortisone 10 mg in the morning and 5 mg at night Currently getting stress dose steroids HEME - -- Normocytic anemia Monitor H&H ID - --Influenza A positive Continue with Tamiflu Doxycycline for COPD exacerbation Respiratory BioFire positive only for flu, negative for everything else Procalcitonin 0.06 Nasal MRSA negative Follow-up blood culture and sputum culture --Prophylaxis VTE: Lovenox GI: Pantoprazole Lines: Peripheral Diet: Tube feeds Plan: In/out: -1 L, urine output 1959, +1.6 L since coming to the hospital Chest x-ray from today shows ET tube approximately 1.3-1.5 cm from the isabela, retract it by 1 cm Continue with Tamiflu Complete 5 days of doxycycline for COPD exacerbation Continue with Perforomist to the regimen Continue with Solu-Medrol to 40 mg twice daily as of tomorrow Trial of extubation today. Patient will be put on one-to-one if she is successfully extubated. Will get psych also involved as there is questionable history of suicidal ideation Palliative care will also be involved probably over the coming days. As per the patient's , okay to reintubate the patient if she does not do well. No tracheostomy I have personally spent 39 minutes of critical care time in the direct management of this patient. This is a life/limb threatening event. This includes time spent evaluating patient, direct bedside care, chart review, placing orders, interpretation of diagnostic studies, discussion with consultants, patient, and family members, as well as other required patient management activities. This time is exclusive of all separately billable procedures, and teaching time and separate from and in addition to any other critical care service time. Admission and Anticipated Discharge Date Admission Date: August 01, 2024 Subjective Patient seen and examined at bedside. No acute distress, no adverse events overnight Patient's images as well as extended family were in the room at the time of examination She was on propofol 20, fentanyl 150 and Precedex 0.4 at the time of examination She was breathing with the vent. She was easily arousable. Following simple commands Spiking low-grade fever 0.02 Levophed Review of Systems 2 Review of Systems: Unobtainable due to endotracheal tube Physical Exam 2 Physical Exam: Constitutional: No acute distress HEENT: EOMI, PERRLA Respiratory system: Decreased air entry bilaterally, no rhonchi, positive expiratory wheeze bilaterally, improved from before, positive crackles bilateral lower lobes CVS: S1-S2 positive, no murmurs or gallops Abdomen: Soft, nontender, nondistended, positive bowel sounds x4 Extremities: +2 pulses bilaterally radialis/ dorsalis pedis, no cyanosis, no edema Neuro: RASS -1, moving all extremities spontaneously, breathing with the vent Psych: Unable to assess G/U: Positive Ravi Skin: no rashes, warm and dry Lymphatic: no cervical or axillary lymphadenopathy Results & Data Results & Data Vital Signs (Past 12 Hours) Vital Signs Temp Pulse Pulse Resp BP BP Pulse Ox 08/03/24 07:27 87 18 98 08/03/24 06:30 37.5 C 66 18 129/75 99 08/03/24 06:15 37.5 C 68 18 127/74 98 08/03/24 06:00 37.5 C 68 18 116/70 98 08/03/24 05:30 37.5 C 71 18 108/66 97 08/03/24 05:00 37.5 C 77 18 117/69 96 08/03/24 04:45 37.5 C 78 18 115/70 97 08/03/24 04:00 08/03/24 03:45 71 18 101/63 98 08/03/24 03:44 18 08/03/24 03:00 37.4 C 73 18 96/60 L 98 08/03/24 02:15 37.4 C 77 18 101/60 98 08/03/24 01:45 37.4 C 78 18 99/60 L 98 08/03/24 01:00 97 H 18 96/58 L 93 08/03/24 00:15 37.3 C 90 18 96/55 L 95 08/03/24 00:00 08/03/24 00:00 92 H 08/02/24 23:45 37.3 C 87 18 104/63 96 08/02/24 23:15 37.3 C 87 18 104/62 96 08/02/24 23:00 37.4 C 83 18 105/61 98 08/02/24 22:45 37.4 C 71 18 103/64 98 08/02/24 22:40 19 08/02/24 22:30 37.4 C 70 18 104/64 96 08/02/24 22:00 37.4 C 73 18 101/63 98 08/02/24 21:45 37.4 C 73 17 94/59 L 98 08/02/24 21:15 37.3 C 76 18 95/59 L 98 08/02/24 20:45 37.5 C 84 18 96/61 L 96 08/02/24 20:30 89 20 103/63 93 08/02/24 20:15 37.5 C 86 18 100/59 L 97 O2 Del Method FiO2 08/03/24 07:27 Mechanical Vent 40 08/03/24 06:30 Mechanical Vent 40 08/03/24 06:15 Mechanical Vent 40 08/03/24 06:00 Mechanical Vent 40 08/03/24 05:30 Mechanical Vent 40 08/03/24 05:00 Mechanical Vent 40 08/03/24 04:45 Mechanical Vent 40 08/03/24 04:00 40 08/03/24 03:45 Mechanical Vent 40 08/03/24 03:44 40 08/03/24 03:00 Mechanical Vent 40 08/03/24 02:15 Mechanical Vent 40 08/03/24 01:45 Mechanical Vent 40 08/03/24 01:00 Mechanical Vent 40 08/03/24 00:15 Mechanical Vent 40 08/03/24 00:00 40 08/03/24 00:00 08/02/24 23:45 Mechanical Vent 40 08/02/24 23:15 Mechanical Vent 40 08/02/24 23:00 Mechanical Vent 40 08/02/24 22:45 Mechanical Vent 40 08/02/24 22:40 40 08/02/24 22:30 Mechanical Vent 40 08/02/24 22:00 Mechanical Vent 40 08/02/24 21:45 Mechanical Vent 40 08/02/24 21:15 Mechanical Vent 40 08/02/24 20:45 Mechanical Vent 40 08/02/24 20:30 Mechanical Vent 08/02/24 20:15 Mechanical Vent 40 Laboratory Results 08/03/24 04:26 08/03/24 04:26 Coding Level of Care Code 41684 CRITICAL CARE 1ST 30-74M Diagnoses Acute on chronic respiratory failure with hypoxia and hypercapnia J96.21; J96.22 Influenza A J10.1 Adrenal insufficiency E27.40 Chronic pain G89.29 Acute exacerbation of chronic obstructive pulmonary disease J44.1 Suicidal risk R45.89 Demand ischemia I24.89
--- NOTE | 2024-08-03 08:17 | XRay Report ---
EXAM: XR chest 1V portable CLINICAL HISTORY: eval lines/tubes/lung khan TECHNIQUE: An X-ray image of the chest is obtained in AP projection. COMPARISON: Prio study dated 08/02/2024. FINDINGS: ETT is about 2.1 cm from the isabela. NG tube seen projecting left infra diaphragmatic. Pulmonary Parenchyma: Multiple bilateral irregular patchy and fibrotic opacities (stable). Bilateral enlarged hilar shadows with para hilar irregular opacities with traction on both arden (stable). Tenting of the right hemidiaphragm with right basal atelectasis (stable). Bluting of the right costophrenic angle, possible effusion or thickening (stable). Heart and Mediastinum: Heart size and shape are normal. No mediastinal widening or masses. No hilar or mediastinal lymphadenopathy. Bony Thorax: The bony thorax appears intact without fractures or deformities. Right shoulder prosthesis. Soft Tissues: Soft tissues overlying the chest wall are unremarkable. IMPRESSION: 1. ETT is about 2.1 cm from the isabela. 2. NG tube seen projecting left infra diaphragmatic. 3. Multiple bilateral irregular patchy and fibrotic opacities (stable). 4. Bilateral enlarged hilar shadows with para hilar irregular opacities with traction on both arden (stable). 5. Tenting of the right hemidiaphragm with right basal atelectasis (stable). 6. Bluting of the right costophrenic angle, possible effusion or thickening (stable). Electronically signed by Marcos Olivares 08-03-2024 08:17 AM
[2024-08-03] MEDS: methylPREDNISolone 40 MG in SYRINGE 0 ML IV SCH (08:28)
--- NOTE | 2024-08-03 08:53 | Hospitalist Progress Note ---
Date of Service August 03, 2024 Assessment & Plan (1) Septic shock: (2) Influenza A: (3) Adrenal insufficiency: (4) Demand ischemia: Plan This patient is a 68-year-old female with a h/o severe COPD on home O2, myofascial pain syndrome, adrenal insufficiency, GERD, vitamin D deficiency, bronchiectasis, ambulatory dysfunction, HLD, anxiety/depression, postinflammatory pulmonary fibrosis, tobacco use disorder, sarcoidosis, and history of PE on Xarelto who p/w worsening SOB and cough, severe lethargy, hypoxia with POx in the 70s. Tested positive for Influenza A and had an aspiration event in ED, acutely decompensated, and was intubated by ED staff for airway protection. She then became hypotensive, with BP 65/43, and started on Levophed. #Septic shock/Adrenal insufficiency/Suspected Aspiration pneumonia/Influenza A/Acute on chronic respiratory failure with hypoxemia/COPD exacerbation With CXR with possible right sided PNA and chronic fibrosis changes. Possible aspiration or gram negative pneumonia, doxycycline coverage is sufficient. weaned off vasopressin and remains on low dose of levophed. Is on stress dose steroids -continue Tamiflu 75 mg per OGT twice daily x 5 day course -continue Solu-Medrol 40 mg IV every 8 hours -continue doxycycline x 7 day course - medical photographer team-plan to attempt extubation on 08/03 -continue bronchodilators, pulm toilet -continue to follow Sputum cx and Blood cx-NGTD #Demand ischemia-Initial troponin 31.0, with follow-up 53.9 on day of admission. ECHO showed EF 55-60%,elevated RVSP,mild LVH, mild MR. ECG on AM of 08/[address] elevation in inferior leads, however serial trop went down to 19 and repeat ECG improved. -monitor on tele #History of pulmonary embolism- Changed Xarelto to Lovenox 1 mg/kg SQ every 12 hours while on vent in case of need for procedure #Adrenal insufficiency-typically on po hydrocortisone at home. Solu-Medrol used as treatment for pulmonary status, will act as stress dosing #GERD-continue PPI #Anxiety-continue prn lorazepam, escitalopram #HLD-continue statin DVT proph-Lovenox Dispo-continued stay in ICU, guarded prognosis Admission and Anticipated Discharge Date Admission Date: August 01, 2024 Subjective visited pt when she was on weaning trial with expectation of extubation later in the morning family at bedside and updated sedation was weaned and pt able to follow commands Physical Exam Physical Exam: bilateral breath sounds are present cardiac exam is regular Results & Data Results & Data Vital Signs (Past 12 Hours) Vital Signs Temp Pulse Pulse Resp BP Pulse Ox O2 Del Method 08/03/24 07:29 65 19 98 08/03/24 07:27 87 18 98 Mechanical Vent 08/03/24 06:30 99.5 F 66 18 129/75 99 Mechanical Vent 08/03/24 06:15 99.5 F 68 18 127/74 98 Mechanical Vent 08/03/24 06:00 99.5 F 68 18 116/70 98 Mechanical Vent 08/03/24 05:30 99.5 F 71 18 108/66 97 Mechanical Vent 08/03/24 05:00 99.5 F 77 18 117/69 96 Mechanical Vent 08/03/24 04:45 99.5 F 78 18 115/70 97 Mechanical Vent 08/03/24 04:00 08/03/24 03:45 71 18 101/63 98 Mechanical Vent 08/03/24 03:44 18 08/03/24 03:00 99.3 F 73 18 96/60 L 98 Mechanical Vent 08/03/24 02:15 99.3 F 77 18 101/60 98 Mechanical Vent 08/03/24 01:45 99.3 F 78 18 99/60 L 98 Mechanical Vent 08/03/24 01:00 97 H 18 96/58 L 93 Mechanical Vent 08/03/24 00:15 99.1 F 90 18 96/55 L 95 Mechanical Vent 08/03/24 00:00 08/03/24 00:00 92 H 08/02/24 23:45 99.1 F 87 18 104/63 96 Mechanical Vent 08/02/24 23:15 99.1 F 87 18 104/62 96 Mechanical Vent 08/02/24 23:00 99.3 F 83 18 105/61 98 Mechanical Vent 08/02/24 22:45 99.3 F 71 18 103/64 98 Mechanical Vent 08/02/24 22:40 19 08/02/24 22:30 99.3 F 70 18 104/64 96 Mechanical Vent 08/02/24 22:00 99.3 F 73 18 101/63 98 Mechanical Vent 08/02/24 21:45 99.3 F 73 17 94/59 L 98 Mechanical Vent 08/02/24 21:15 99.1 F 76 18 95/59 L 98 Mechanical Vent FiO2 08/03/24 07:29 40 08/03/24 07:27 40 08/03/24 06:30 40 08/03/24 06:15 40 08/03/24 06:00 40 08/03/24 05:30 40 08/03/24 05:00 40 08/03/24 04:45 40 08/03/24 04:00 40 08/03/24 03:45 40 08/03/24 03:44 40 08/03/24 03:00 40 08/03/24 02:15 40 08/03/24 01:45 40 08/03/24 01:00 40 08/03/24 00:15 40 08/03/24 00:00 40 08/03/24 00:00 08/02/24 23:45 40 08/02/24 23:15 40 08/02/24 23:00 40 08/02/24 22:45 40 08/02/24 22:40 40 08/02/24 22:30 40 08/02/24 22:00 40 08/02/24 21:45 40 08/02/24 21:15 40 Laboratory Results review cbc review chemistry PG Care Time/CCT Total # of Minutes Spent Total Time Spent with Patient: Total time spent is greater than 50% in coordination of care (as documented) at patient's floor/unit and/or counseling patient: Coding Level of Care Code 93814 SUB INP/OBS CARE 3/50MIN Diagnoses Septic shock A41.9; R65.21 Influenza A J10.1 Adrenal insufficiency E27.40 Demand ischemia I24.89
--- NOTE | 2024-08-03 14:12 | Psychiatric Consultation ---
Date of Consultation August 03, 2024 Impression / Recommendations Impression Diagnostically consistent with likely adjustment disorder with depressed mood vs depression 2/2 medical issues in the context of ongoing chronic medical conditions including pain and worsening SOB prior to admission. It's difficult to determine what if any depression symptoms persist given she remains on BiPaP but she was able to engage with risk assessment and noted her ability to alert nurses should her mood worsen or should she develop SI or feel unsafe. Acute risk of self-harm is low given denial of SI and stated strong deterrents to suicide and no history of prior attempts. Chronic risk is moderate given some non-modifiable risk factors including chronic medical conditions but also with protective factors including strong family support. She is not interested in nor does she meet criteria for inpatient psychiatric hospitalization at this time. Agree with ongoing use of escitalopram for history of depression. Overall, I spent a total of 45 minutes with this case including review of chart records, review of labwork, direct evaluation of the patient at bedside, counseling the patient, discussion of the patient with the Nurse and with the hospitalist provider, discussion with the psychiatric liason during clinical rounds and documentation in the electronic health record. (1) Pneumonia and influenza: (2) Adjustment disorder with depressed mood: Plan -Continue escitalopram as ordered -Doesn't require 1-on-1 nor suicide precautions -If SI or depression symptoms were to re-occur please re-consult; psychiatry to sign off at this time Psych History Identifying Data 68 yo woman with a history of h/o severe COPD on home O2, myofascial pain syndrome, adrenal insufficiency, GERD, vitamin D deficiency, bronchiectasis, ambulatory dysfunction, HLD, anxiety/depression, postinflammatory pulmonary fibrosis, tobacco use disorder, sarcoidosis, and history of PE on Xarelto admitted for worsening SOB and cough, severe lethargy, hypoxia and found to be positive for Influenza A. Psychiatry consulted due to concern for recent SI statements. Chief Complaint "No". History of Present Illness Karine has severe COPD and was admitted for worsening respiratory function. She required intubation and was extubated today and now on BiPaP. Her shared with admitting provider that she was having a lot of back pain in the days prior to admission and made a statement of wanting to "end it all". had wondered if she had taken any extra pain medications, possible she took some extra doses but reportedly pill bottles were still quite full. On admission found to be influenza A positive which seems to suggest many of her symptoms in days prior to admission. Met with Karine today who denies any recent nor current SI. Denies any prior attempts. Denies taking excess medication as suicide attempt or with any ambivalence about possible consequences. Denies any hx of inpt psych tx. Endorses hx of depression and takes escitalopram. States strong reasons for living including her children and . Allergies Allergy/AdvReac Type Severity Reaction Status Date / Time No Known Allergies Allergy Verified 08/01/24 09:52 Home Medications Medication Instructions Recorded Confirmed Type Wheelchair (Powered) (Power #1 ea 01/12/23 06/10/24 Rx Wheelchair) Therapist Evaluation for Power #1 ea 01/30/23 06/10/24 Rx Mobility Flutter Valve #1 ea 06/23/23 06/10/24 Rx pantoprazole 40 mg tablet,delayed 40 mg PO QAM 07/04/23 06/10/24 History release tizanidine 4 mg tablet (Zanaflex) 4 mg PO BID muscle spasticity 07/04/23 06/10/24 History blood pressure monitor #1 ea 07/11/23 06/10/24 Rx ondansetron 4 mg disintegrating 4 mg PO Q8 PRN nausea #20 tabs 07/15/23 06/10/24 Rx tablet trazodone 100 mg tablet 100 mg PO HS #90 tabs 10/11/23 06/10/24 Rx escitalopram oxalate 10 mg tablet 10 mg PO QAM #90 tabs 10/27/23 06/10/24 Rx albuterol sulfate 90 mcg/actuation 2 puff inhalation QID PRN 11/15/23 06/10/24 Rx aerosol inhaler (Ventolin HFA) Shortness Of Breath Or Wheezing #18 grams rivaroxaban 20 mg tablet (Xarelto) 20 mg PO HS #30 tabs 02/01/24 06/10/24 Rx acetaminophen 500 mg tablet 1,000 mg PO TID PRN pain 03/02/24 06/10/24 History (Tylenol Extra Strength) hydrocortisone sod succ (PF) 100 75 mg (1.5 mL) IM ONCE PRN severe 03/12/24 06/10/24 Rx mg/2 mL solution for injection adrenal insufficiency #1 ea (Solu-Cortef Act-O-Vial (PF)) folic acid 1 mg tablet 1 mg PO DAILY #30 tabs 03/27/24 06/10/24 Rx gabapentin 300 mg capsule 300 mg PO BID #180 caps 04/29/24 06/10/24 Rx hydrocortisone 5 mg tablet See Rx Instructions PO TID #180 05/08/24 06/10/24 Rx tabs albuterol sulfate 2.5 mg/3 mL 2.5 mg (3 mL) inhalation QID PRN 05/15/24 06/10/24 Rx (0.083 %) solution for nebulization Shortness Of Breath Or Wheezing #270 mL benzonatate 100 mg capsule 100 mg PO TID PRN cough #30 caps 05/15/24 06/10/24 Rx lorazepam 1 mg tablet (Ativan) 1 mg PO DAILY PRN Anxiety #30 tabs 06/06/24 06/10/24 Rx rosuvastatin 5 mg tablet 5 mg PO QAM #90 tabs 06/06/24 06/10/24 Rx umeclidinium 62.5 mcg-vilanterol 1 inh inhalation QAM #60 ea 06/06/24 06/10/24 Rx 25 mcg/actuation powdr for inhalation (Anoro Ellipta) budesonide 90 mcg/actuation breath inhalation 06/12/24 History activated powder inhaler (Pulmicort Flexhaler) Patient History Medical History Elevated troponin Acute exacerbation of chronic obstructive pulmonary disease (COPD) Hypotension Scoliosis Surgical History History of esophagogastroduodenoscopy (EGD) History of lung biopsy History of bronchoscopy Hx of colonoscopy Hx of elbow surgery Right History of hip replacement Left PREETI (09/11/17): SAB x1 at L3-L4 at [facility] Family History Father Myocardial infarction Brother Anxiety COPD (chronic obstructive pulmonary disease) Daughter Anxiety Sister Breast cancer Other Diabetes Kidney disease No family history of adverse response to anesthesia Denies family history of Ovarian cancer Prostate cancer Colorectal cancer Social History (System 08/01/24 @ 09:52 by Kat Carias) Smoking Status: Current every day smoker Tobacco Type: Cigarettes Age Started Using Tobacco: 22; packs per day: 0.75; Cigarettes Per Day: 1 ppd (advised on policy); Second Hand Exposure: Yes (in the past); Do You Dip or Chew Tobacco: No; Hx Alcohol Use: No Hx Substance Use: No Preferred Language: Ethiopian Communication Ability: Impaired Visual Impairment: No Limitations Hearing Ability: Normal Research Neuropsychologist Required: No Beliefs That Will Affect Care: Cultural marital status: Current Living Situation: Spouse Current Living Situation Comment: house current occupational status: retired and disabled 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 How many Children do You have: 2 Feels Safe at Home: Yes Childhood Exposure to Second-Hand Smoke: No Diet: regular Dental Care, Regularly: No Physical Activity Frequency: Does not Exercise Seatbelt Use: always Sunscreen Use: No (is not out in the sun much ) Assistive Devices: Cane, Walker and Wheelchair Physical Exam Vital Signs (Past 24 Hours): Last Vital Signs Temp 37.7 C H 08/03/24 09:00 Pulse 86 08/03/24 13:47 Resp 22 08/03/24 13:47 BP 101/60 08/03/24 09:15 Pulse Ox 91 08/03/24 13:47 O2 Del Method BiPAP 08/03/24 13:47 O2 Flow Rate 15 07/31/24 21:57 FiO2 35 08/03/24 13:47 Results & Data (PSY) Medications Administered Acetaminophen (Acetaminophen 325 Mg Tab) 650 mg PO Q4H PRN PRN Reason: Fever/Mild Pain (Pain 1,2,3) Stop: 08/30/24 22:27 Last Admin: 08/01/24 01:43 Dose: 650 mg Documented By: LLP Albuterol (Albuterol 0.083% Nebu Soln 3 Ml Vial) 2.5 mg NEB Q6H PRN; Protocol PRN Reason: Shortness Of Breath Or Wheezing Stop: 08/30/24 22:37 Last Admin: 08/03/24 13:46 Dose: 2.5 mg Documented By: [id number] Admin: 08/03/24 11:19 Dose: 2.5 mg Documented By: [id number] Admin: 08/02/24 11:03 Dose: 2.5 mg Documented By: EM Albuterol (Albut/Ipratrop 3mg/0.5mg Neb 3 Ml Vial) 3 ml INH Q8R HEATHER Stop: 08/31/24 14:59 Last Admin: 08/03/24 07:23 Dose: Not Given Documented By: [id number] Admin: 08/02/24 22:38 Dose: 3 ml Documented By: Admin: 08/02/24 15:33 Dose: 3 ml Documented By: Admin: 08/02/24 07:33 Dose: Not Given Documented By: Admin: 08/01/24 22:46 Dose: 3 ml Documented By: Admin: 08/01/24 14:56 Dose: 3 ml Documented By: LG Enoxaparin Sodium (Enoxaparin Inj 60 Mg/0.6 Ml Syr) 60 mg SQ Q12H [facility] Stop: 08/31/24 05:59 Last Admin: 08/03/24 06:36 Dose: 60 mg Documented By: Admin: 08/02/24 17:49 Dose: 60 mg Documented By: Admin: 08/02/24 06:06 Dose: 60 mg Documented By: Admin: 08/01/24 17:41 Dose: 60 mg Documented By: Admin: 08/01/24 06:12 Dose: 60 mg Documented By: LLP Escitalopram Oxalate (Escitalopram Oxalate Oral Soln 10 Mg/10 Ml Udp) 10 mg NG QAM [facility] Stop: 08/31/24 10:59 Last Admin: 08/03/24 08:26 Dose: 10 mg Documented By: Admin: 08/02/24 08:09 Dose: 10 mg Documented By: Admin: 08/01/24 11:33 Dose: 10 mg Documented By: NMK Formoterol Fumarate (Formoterol 20 Mcg/2 Ml Vial) 20 mcg NEB BIDR [facility]ATHER Stop: 08/31/24 18:59 Last Admin: 08/03/24 07:23 Dose: 20 mcg Documented By: [id number] Admin: 08/02/24 19:29 Dose: 20 mcg Documented By: Admin: 08/02/24 07:33 Dose: 20 mcg Documented By: Admin: 08/01/24 19:23 Dose: 20 mcg Documented By: TMP Norepinephrine Bitartrate (Levophed/D5w) 4 mg in 250 mls @ 4.35 mls/hr IV .Q24H [facility]; Protocol Stop: 08/31/24 00:14 Last Admin: 08/03/24 08:55 Dose: Not Given Documented By: Titration: 08/03/24 08:35 Dose: Infused Documented By: NMK Co-signed By: AMS Titration: 08/03/24 07:26 Dose: Infused Documented By: TLM Co-signed By: NMK Titration: 08/02/24 19:11 Dose: 0.02 mcg/kg/min, 4.4 mls/hr Documented By: CB Co-signed By: TLM Admin: 08/02/24 17:48 Dose: Not Given Documented By: Admin: 08/02/24 10:06 Dose: Not Given Documented By: Titration: 08/02/24 08:04 Dose: 0.02 mcg/kg/min, 4.4 mls/hr Documented By: CB Co-signed By: MTP Admin: 08/01/24 20:39 Dose: 0.06 mcg/kg/min, 13.1 mls/hr Documented By: TLM Co-signed By: MNM Titration: 08/01/24 19:06 Dose: Infused Documented By: TLM Co-signed By: MNM Titration: 08/01/24 18:59 Dose: 0.06 mcg/kg/min, 13.1 mls/hr Documented By: TLM Co-signed By: NMK Titration: 08/01/24 17:38 Dose: 0.06 mcg/kg/min, 13.1 mls/hr Documented By: NMK Co-signed By: KJL Admin: 08/01/24 15:05 Dose: Not Given Documented By: Titration: 08/01/24 13:00 Dose: 0.08 mcg/kg/min, 17.4 mls/hr Documented By: NMK Co-signed By: AMS Titration: 08/01/24 12:15 Dose: 0.09 mcg/kg/min, 19.6 mls/hr Documented By: NMK Co-signed By: AMS Titration: 08/01/24 11:50 Dose: 0.11 mcg/kg/min, 23.9 mls/hr Documented By: NMK Co-signed By: AMS Titration: 08/01/24 11:20 Dose: 0.13 mcg/kg/min, 28.3 mls/hr Documented By: NMK Co-signed By: [facility] Admin: 08/01/24 07:55 Dose: 0.15 mcg/kg/min, 32.6 mls/hr Documented By: BERNADINE Co-signed By: ZOE Titration: 08/01/24 07:55 Dose: Infused Documented By: BERNADINE Co-signed By: ZOE Titration: 08/01/24 07:13 Dose: 0.15 mcg/kg/min, 32.6 mls/hr Documented By: BERNADINE Co-signed By: GENOVEVA Titration: 08/01/24 00:55 Dose: 0.15 mcg/kg/min, 32.6 mls/hr Documented By: LARISSA Co-signed By: WINNIE Titration: 08/01/24 00:50 Dose: 0.09 mcg/kg/min, 19.6 mls/hr Documented By: LARISSA Co-signed By: WINNIE Titration: 08/01/24 00:25 Dose: 0.07 mcg/kg/min, 15.2 mls/hr Documented By: LARISSA Co-signed By: AUDI Admin: 08/01/24 00:17 Dose: 0.05 mcg/kg/min, 10.9 mls/hr Documented By: LARISSA Co-signed By: AUDI Pantoprazole Sodium (Protonix) 40 mg in 10 mls @ 5 mls/min IV DAILY [facility] Stop: 08/31/24 08:59 Last Admin: 08/03/24 08:28 Dose: 5 mls/min Documented By: Admin: 08/02/24 08:08 Dose: 5 mls/min Documented By: Admin: 08/01/24 09:14 Dose: 5 mls/min Documented By: BERNADINE Doxycycline Hyclate 100 mg/ (Dextrose) 100 mls @ 50 mls/hr IV Q12 [facility] Stop: 08/06/24 09:59 Last Infusion: 08/03/24 10:28 Dose: Infused Documented By: Admin: 08/03/24 08:28 Dose: 50 mls/hr Documented By: Infusion: 08/02/24 22:40 Dose: Infused Documented By: Admin: 08/02/24 20:35 Dose: 50 mls/hr Documented By: Infusion: 08/02/24 10:09 Dose: Infused Documented By: Admin: 08/02/24 08:08 Dose: 50 mls/hr Documented By: Infusion: 08/01/24 22:45 Dose: Infused Documented By: Admin: 08/01/24 20:39 Dose: 50 mls/hr Documented By: Infusion: 08/01/24 12:52 Dose: Infused Documented By: Admin: 08/01/24 10:52 Dose: 50 mls/hr Documented By: BERNADINE Methylprednisolone 40 mg/ (Syringe) 0.64 mls @ 1.5 mls/min IV Q12H [facility] Stop: 09/02/24 08:59 Last Admin: 08/03/24 08:28 Dose: 1.5 mls/min Documented By: BERNADINE Insulin Aspart (Insulin Aspart Per Unit Charge) 0 units SC Q6 [facility] Stop: 08/31/24 11:59 Last Admin: 08/03/24 11:19 Dose: Not Given Documented By: Admin: 08/03/24 06:36 Dose: Not Given Documented By: Admin: 08/03/24 00:22 Dose: Not Given Documented By: Admin: 08/02/24 17:49 Dose: Not Given Documented By: Admin: 08/02/24 12:32 Dose: Not Given Documented By: Admin: 08/02/24 06:29 Dose: 1 units Documented By: MONAE Co-signed By: MONIQUE Admin: 08/01/24 23:57 Dose: 1 units Documented By: MONAE Co-signed By: MONIQUE Admin: 08/01/24 17:48 Dose: 1 units Documented By: BERNADINE Co-signed By: NAOMI Admin: 08/01/24 11:40 Dose: 2 units Documented By: BERNADINE Co-signed By: BROOK Lorazepam (Lorazepam 2 Mg/1 Ml Vial) 1 mg IV Q3H PRN PRN Reason: Anxiety/Agitation Stop: 09/01/24 14:03 Last Admin: 08/02/24 20:33 Dose: 1 mg Documented By: MONAE Metoclopramide HCl (Metoclopramide Hcl Inj 5 Mg/Ml 2 Ml Vial) 10 mg IV BID PRN PRN Reason: Nausea And Vomiting Stop: 09/01/24 10:02 Last Admin: 08/02/24 11:06 Dose: 10 mg Documented By: SHAHIDA Miscellaneous (Icu Electrolyte Replacement Protocol) 1 each N/A BID@06,18 [facility]; Protocol Stop: 08/08/24 05:59 Last Admin: 08/03/24 06:35 Dose: Not Given Documented By: Admin: 08/02/24 17:49 Dose: Not Given Documented By: Admin: 08/02/24 06:06 Dose: Not Given Documented By: Admin: 08/01/24 20:41 Dose: Not Given Documented By: Admin: 08/01/24 04:58 Dose: 1 each Documented By: CHYNA Wilkinsaneous (Remove Nicoderm Patch) 1 each N/A DAILY@0859 [facility] Stop: 08/31/24 08:58 Last Admin: 08/03/24 08:26 Dose: 1 each Documented By: Admin: 08/02/24 08:04 Dose: 1 each Documented By: Admin: 08/01/24 09:14 Dose: 1 each Documented By: BERNADINE Nicotine (Nicotine 7 Mg/24 Hr Tdsy) 1 patch TD QAM [facility] Stop: 08/31/24 08:59 Last Admin: 08/03/24 08:26 Dose: 1 patch Documented By: Admin: 08/02/24 08:06 Dose: 1 patch Documented By: Admin: 08/01/24 09:14 Dose: 1 patch Documented By: BERNADINE Oseltamivir Phosphate (Oseltamivir Phosphate Susp 75 Mg/12.5 Ml Udp) 75 mg PO BID [facility]; Protocol Stop: 08/06/24 08:59 Last Admin: 08/03/24 08:27 Dose: 75 mg Documented By: Admin: 08/02/24 21:02 Dose: 75 mg Documented By: Admin: 08/02/24 08:09 Dose: 75 mg Documented By: Admin: 08/01/24 20:40 Dose: 75 mg Documented By: Admin: 08/01/24 09:17 Dose: 75 mg Documented By: BERNADINE Coding Level of Care Code 06245 IN/OBS CONSULT LVL 3,45M Diagnoses Pneumonia and influenza J11.00 Adjustment disorder with depressed mood F43.21
[2024-08-03] MEDS ORDERED: SODIUM PHOSPHATE 3 MMOL/1 ML INFUSION IV STA (17:07)
[2024-08-03] MEDS: SODIUM PHOSPHATE 15 MMOL in SODIUM CHLORIDE 0.9% 250 ML IV ONE (17:42)
[2024-08-03] MEDS: SODIUM CHLOR 7% 4 ML NEB NEB SCH (19:55)
[2024-08-04 05:00] LABS: Hematocrit (blood only) 35.6 % (37.0-47.0); Hemoglobin 11.5 g/dl (12.0-16.0); Immature Granulocytes # (auto) 0.02 K/uL (0.01-0.20); Immature Granulocytes % (auto) 0.4 %; Lymphocytes % (auto) 8.8 %; Mean Corpuscular Hemoglobin 30.9 pg (25.0-34.0); Mean Corpuscular Hgb Conc 32.3 g/dL (32.0-36.0); Mean Corpuscular Volume 95.7 fL (80.0-100.0); Mean Platelet Volume 9.8 fL (9.4-12.4); Monocytes # (auto) 0.27 K/uL (0.11-0.59); Monocytes % (auto) 4.8 %; Neutrophils # (auto) 4.86 K/uL (1.40-6.50); Platelet Count 134 K/uL (130-400); RDW Coefficient of Variation 13.9 % (11.5-14.5); RDW Standard Deviation 49.3 fL (36.4-46.3); Red Blood Count 3.72 M/uL (4.20-5.40); White Blood Count 5.65 K/ul (4.8-10.8)
[2024-08-04 05:14] LABS: BUN Creatinine Ratio 38.3 (10-20); Calcium 8.6 mg/dl (8.6-10.3); Creatinine Clr Calc Pharmacy 96.4 ml/min; Magnesium 2.2 mg/dl (1.7-2.4); Phosphorus 3.7 mg/dl (2.5-4.9); Potassium 4.3 mmol/L (3.5-5.1)
--- NOTE | 2024-08-04 07:33 | Hospitalist Progress Note ---
Date of Service August 04, 2024 Assessment & Plan (1) Septic shock: (2) Influenza A: (3) Adrenal insufficiency: (4) Demand ischemia: Plan This patient is a 68-year-old female with a h/o severe COPD on home O2, myofascial pain syndrome, adrenal insufficiency, GERD, vitamin D deficiency, bronchiectasis, ambulatory dysfunction, HLD, anxiety/depression, postinflammatory pulmonary fibrosis, tobacco use disorder, sarcoidosis, and history of PE on Xarelto who p/w worsening SOB and cough, severe lethargy, hypoxia with POx in the 70s. Tested positive for Influenza A and had an aspiration event in ED, acutely decompensated, and was intubated by ED staff for airway protection. She then became hypotensive, with BP 65/43, and started on Levophed. #Septic shock/Adrenal insufficiency/Suspected Aspiration pneumonia/Influenza A/Acute on chronic respiratory failure with hypoxemia/COPD exacerbation right sided PNA and chronic fibrosis changes on imaging. Possible aspiration or gram negative pneumonia, doxycycline coverage low grade temps. - stress dose steroids -continue Tamiflu 75 mg per OGT twice daily x 5 day course -continue Solu-Medrol 40 mg IV every 8 hours -continue doxycycline x 7 day course - extubation on 08/03, bipap support at night -continue bronchodilators, pulm toilet -continue to follow Sputum cx and Blood cx-NGTD #Demand ischemia-Initial troponin 31.0-> 53.9->24->19. ECHO showed EF 55- 60%,elevated RVSP,mild LVH, mild MR. ECG on AM of 08/[address] elevation in inferior leads, however serial trop went down to 19 and repeat ECG improved. #History of pulmonary embolism- Changed Xarelto to Lovenox 1 mg/kg SQ every 12 hours #Adrenal insufficiency-typically on po hydrocortisone at home. Solu-Medrol used as treatment for pulmonary status, will act as stress dosing #GERD-continue PPI #Anxiety-continue prn lorazepam, escitalopram #HLD-continue statin DVT proph-Lovenox Dispo-tolerated extubation, likely downgrade 08/05/24 Admission and Anticipated Discharge Date Admission Date: August 01, 2024 Subjective Pt is very tenuous, requiring Bipap for breathing support and despite is still tachypneic Physical Exam Physical Exam: moderate respiratory distress cardiac is regular abd is soft Results & Data Results & Data Vital Signs (Past 12 Hours) Vital Signs Temp Pulse Pulse Resp BP BP Pulse Ox 08/04/24 03:03 85 21 94 08/04/24 03:03 84 21 94 08/04/24 02:15 99.7 F H 86 20 117/74 94 08/04/24 02:00 99.3 F 86 20 124/60 93 08/04/24 01:45 99.3 F 86 18 122/70 93 08/04/24 01:15 99.7 F H 87 20 120/72 93 08/04/24 00:45 99.7 F H 86 23 112/69 93 08/04/24 00:30 99.9 F H 86 21 117/69 93 08/04/24 00:15 99.7 F H 85 21 107/67 91 08/04/24 00:00 85 08/03/24 23:45 99.7 F H 85 19 114/72 93 08/03/24 23:30 99.9 F H 83 20 118/69 92 08/03/24 23:15 99.9 F H 80 21 120/71 95 08/03/24 23:13 79 21 94 08/03/24 23:13 79 20 93 08/03/24 23:00 99.7 F H 80 20 113/65 93 08/03/24 22:45 99.7 F H 80 22 121/68 91 08/03/24 20:00 08/03/24 20:00 99.5 F 89 26 H 124/71 95 08/03/24 19:59 80 22 95 08/03/24 19:59 79 22 94 O2 Del Method FiO2 08/04/24 03:03 35 08/04/24 03:03 BiPAP 35 08/04/24 02:15 BiPAP 35 08/04/24 02:00 BiPAP 35 08/04/24 01:45 BiPAP 35 08/04/24 01:15 BiPAP 35 08/04/24 00:45 BiPAP 35 08/04/24 00:30 BiPAP 35 08/04/24 00:15 BiPAP 35 08/04/24 00:00 08/03/24 23:45 BiPAP 35 08/03/24 23:30 BiPAP 35 08/03/24 23:15 BiPAP 35 08/03/24 23:13 35 02/01/25 23:13 BiPAP 35 08/03/24 23:00 BiPAP 35 08/03/24 22:45 BiPAP 35 08/03/24 20:00 BiPAP 35 08/03/24 20:00 CPAP 35 08/03/24 19:59 35 08/03/24 19:59 BiPAP 35 Laboratory Results review cbc review chemistry discussed case with Dr Bran critical care PG Care Time/CCT Total # of Minutes Spent Total Time Spent with Patient: Total time spent is greater than 50% in coordination of care (as documented) at patient's floor/unit and/or counseling patient: Coding Level of Care Code 44504 SUB INP/OBS CARE 3/50MIN Diagnoses Septic shock A41.9; R65.21 Influenza A J10.1 Adrenal insufficiency E27.40 Demand ischemia I24.89
--- NOTE | 2024-08-04 08:38 | Critical Care Progress Note ---
Date of Service August 04, 2024 Assessment & Plan (1) Acute on chronic respiratory failure with hypoxia and hypercapnia: (2) Influenza A: (3) Adrenal insufficiency: (4) Chronic pain: (5) Acute exacerbation of chronic obstructive pulmonary disease: (6) Suicidal risk: (7) Demand ischemia: Plan Reason Critically Ill: 68-year-old female past medical history of COPD, bronchiectasis, active smoker, pulmonary sarcoidosis presented to the hospital for shortness of breath. Intubated in the ER. In the ICU for further management #Acute on chronic hypoxemic and hypercapneic respiratory failure #Influenza A #Acute exacerbation of COPD #Medical non-compliance PFT 09/30/2020: Severe obstructive lung dysfunction with significant bronchodilator response, moderate decrease in DLCO, air trapping FVC 1.94 L 70%, FEV1 0.82 L 37%, FEV1/FVC 42%, DLCO 41% Neuro - [facility] ICU: Negative Nicotine patch Patient has been cleared by psych. 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 --History of PE On Xarelto at home GI - Bowel regimen: Miralax Zofran PRN RENAL/LYTES - -- Monitor BUNs/creatinine Avoid nephrotoxic medications ENDO - BG 140-180 per SCCM guidelines ISS if needed while inpatient -- Adrenal insufficiency On hydrocortisone 10 mg in the morning and 5 mg at night Currently getting stress dose steroids HEME - -- Normocytic anemia Monitor H&H ID - --Influenza A positive Continue with Tamiflu Doxycycline for COPD exacerbation Respiratory BioFire positive only for flu, negative for everything else Procalcitonin 0.06 Nasal MRSA negative Follow-up blood culture and sputum culture --Prophylaxis VTE: Lovenox GI: Pantoprazole Lines: Peripheral Diet: Clear liquids, advance as tolerated Plan: In/out: -3.3 L, urine output 3875, -852 mL since coming to the hospital Continue with Tamiflu Complete 5 days of doxycycline for COPD exacerbation Continue with Perforomist to the regimen Continue with Solu-Medrol to 40 mg twice daily, start transitioning to a home dose of hydrocortisone on Monday Resume patient's gabapentin as well as trazodone. Will put the patient on 0.5 mg IV Ativan every 8 hours as needed. Prefer the patient to be on BiPAP if she gets Ativan. Palliative care consult tomorrow. Case was discussed with primary team. Given the tenacious respiratory status. Will continue to monitor in the ICU for another 24 hours. As per the patient's , okay to reintubate the patient if she does not do well. No tracheostomy Please note the above document was generated using voice recognition software. It may contain grammatical, syntax or spelling errors.Any formal questions or concerns about the content, text or information contained within the body of this dictation should be directly addressed to the provider for clarification. Admission and Anticipated Discharge Date Admission Date: August 01, 2024 Subjective Patient seen and examined at bedside. No acute distress, notable symptoms overnight She was on BiPAP at the time of examination Denied any headache, no nausea, no vomiting She was given trial of high flow but she got a little bit tachypneic on it. She is complaining of some anxiety and asking for some medications for it. Spiking low-grade fever. Respiratory: In the low 20s, systolic blood pressure in the 130s Review of Systems 2 Review of Systems: All systems reviewed & are unremarkable except as noted in Subjective Physical Exam 2 Physical Exam: Constitutional: No acute distress HEENT: EOMI, PERRLA Respiratory system: Decreased air entry bilaterally, no rhonchi, minimal expiratory wheeze bilaterally, positive crackles bilateral lower lobes CVS: S1-S2 positive, no murmurs or gallops Abdomen: Soft, nontender, nondistended, positive bowel sounds x4 Extremities: +2 pulses bilaterally radialis/ dorsalis pedis, no cyanosis, no edema Neuro: Awake alert oriented to self and place Psych: Normal mood and affect G/U: Positive Ravi Skin: no rashes, warm and dry Lymphatic: no cervical or axillary lymphadenopathy Results & Data Results & Data Vital Signs (Past 12 Hours) Vital Signs Temp Pulse Pulse Resp BP Pulse Ox O2 Del Method 08/04/24 07:59 85 22 91 08/04/24 07:59 87 25 H 92 High Flow Nasal Cannula 08/04/24 03:03 85 21 94 08/04/24 03:03 84 21 94 BiPAP 08/04/24 02:15 37.6 C H 86 20 117/74 94 BiPAP 08/04/24 02:00 37.4 C 86 20 124/60 93 BiPAP 08/04/24 01:45 37.4 C 86 18 122/70 93 BiPAP 08/04/24 01:15 37.6 C H 87 20 120/72 93 BiPAP 08/04/24 00:45 37.6 C H 86 23 112/69 93 BiPAP 08/04/24 00:30 37.7 C H 86 21 117/69 93 BiPAP 08/04/24 00:15 37.6 C H 85 21 107/67 91 BiPAP 08/04/24 00:00 85 08/03/24 23:45 37.6 C H 85 19 114/72 93 BiPAP 08/03/24 23:30 37.7 C H 83 20 118/69 92 BiPAP 08/03/24 23:15 37.7 C H 80 21 120/71 95 BiPAP 08/03/24 23:13 79 21 94 08/03/24 23:13 79 20 93 BiPAP 08/03/24 23:00 37.6 C H 80 20 113/65 93 BiPAP 08/03/24 22:45 37.6 C H 80 22 121/68 91 BiPAP O2 Flow Rate FiO2 08/04/24 07:59 30 35 08/04/24 07:59 35 35 08/04/24 03:03 35 08/04/24 03:03 35 08/04/24 02:15 35 08/04/24 02:00 35 08/04/24 01:45 35 08/04/24 01:15 35 08/04/24 00:45 35 08/04/24 00:30 35 08/04/24 00:15 35 08/04/24 00:00 08/03/24 23:45 35 08/03/24 23:30 35 08/03/24 23:15 35 08/03/24 23:13 35 08/03/24 23:13 35 08/03/24 23:00 35 08/03/24 22:45 35 Laboratory Results 08/04/24 04:22 08/04/24 04:22 Coding Level of Care Code 49949 SUB INP/OBS CARE 3/50MIN Diagnoses Acute on chronic respiratory failure with hypoxia and hypercapnia J96.21; J96.22 Influenza A J10.1 Adrenal insufficiency E27.40 Chronic pain G89.29 Acute exacerbation of chronic obstructive pulmonary disease J44.1 Suicidal risk R45.89 Demand ischemia I24.89
--- NOTE | 2024-08-04 08:44 | Electrocardiogram Report ---
Test Reason : Blood Pressure : */* mmHG Vent. Rate : 73 BPM Atrial Rate : 73 BPM P-R Int : 138 ms QRS Dur : 90 ms QT Int : 406 ms P-R-T Axes : 81 86 72 degrees QTcB Int : 447 ms Normal sinus rhythm Normal ECG When compared with ECG of 02-Aug-2024 08:56, No significant change was found Confirmed by Joe Melendez ([id number]) on 08/04/2024 8:43:43 AM Referred By: REFERRED SELF Confirmed By: Joe Melendez
[2024-08-04] MEDS: LORazepam 2 MG/1 ML VIAL IV PRN (09:47)
[2024-08-04] MEDS: GABAPENTIN 300 MG CAP PO SCH (11:08)
[2024-08-04] MEDS ORDERED: STAT IV Infusion **Titration per Protocol STA ×3 (16:40→23:49)
[2024-08-04] MEDS ORDERED: fentaNYL BOLUS from BAG IV PRN (16:40)
--- NOTE | 2024-08-04 16:40 | Procedure Note ---
Procedure Note Date of Service August 04, 2024 INTUBATION PROCEDURE NOTE: Attending: Dr Cyndi Guillaume MD Patient was evaluated and plan to intubate was made for ventilatory failure. Sedative agent used: 10 mg of etomidate, 100 mg of lidocaine Paralysis agent used: 35 mg of rocuronium Lower lobe consent was implied given patients rapidly declining clinical status and need for airway protection. The patient was prepared in the appropriate fashion. The patient was easily pre-oxygenated by using [id number] ventilation. With help of CMAC grade 1 vocal cords were visualized, the vallecula was erythematous and edematous and 7.5 Spanish ETT was introduced on first attempt to 22 cm at the lip. The stylette was removed and balloon was inflated with 10mL of air. Appropriate Colorimetric change was appreciated for at least 10 breaths. Bilateral chest rise and breath sounds were appreciated without air sounds in the epigastrium. Patient tolerated the procedure well and there were no immediate complications. Chest Xray to follow for confirming placement. [facility] Procedure Codes (Charges) Resuscitation Resuscitation: 54409 Endotracheal Intubation, emergency Coding CPT Codes Resuscitation - Resuscitation: 97388 Endotracheal Intubation, emergency ([id number]) Additional Codes Date of Service (PG.SURGERY)
--- NOTE | 2024-08-04 16:43 | Communication Note ---
Date of Service: August 04, 2024 Critical care addendum: Unfortunately during the day patient was getting more restless, she was complaining multiple times that she is not able to breathe and her respiratory rate was creeping up. I did try to give her Ativan as she takes Ativan at home to see if this is anxiety related but that also did not help. She was dependent more on BiPAP. I discussed with the patient that given the way she looks I think we are heading towards intubation and whether she would like to be intubated. She was agreeable to it. Plan was made to intubate. Patient's was called by phone and updated regarding the the same. She will be sedated with propofol and fentanyl Last time she needed Levophed while she was sedated. When setting will be 420/22/5/100% Will repeat ABG in 30 minutes I have personally spent 38 minutes of critical care time in the direct management of this patient. This is a life/limb threatening event. This includes time spent evaluating patient, direct bedside care, chart review, placing orders, interpretation of diagnostic studies, discussion with consultants, patient, and family members, as well as other required patient management activities. This time is exclusive of all separately billable procedures, and teaching time and separate from and in addition to any other critical care service time. Please note the above document was generated using voice recognition software. It may contain grammatical, syntax or spelling errors. Coding Level of Care Code 44792 CRITICAL CARE 1ST 30-74M
[2024-08-04] MEDS: RAPID SEQUENCE INDUCTION BAG ONE (16:51)
[2024-08-04] MEDS: PROPOFOL IV EMULSION 10 MG/ML 100 ML VIAL IV ONE (16:51)
[2024-08-04] MEDS: fentaNYL citrate 2,500 MCG/250 ML BAG IV ONE (16:51)
[2024-08-04] MEDS: fentaNYL citrate 2,500 MCG/250 ML BAG IV SCH (16:52)
[2024-08-04] MEDS: propofoL 1,000 MG/100 ML VIAL IV SCH (16:53)
--- NOTE | 2024-08-04 17:17 | XRay Report ---
HISTORY: Intubation. TECHNIQUE: Portable AP radiograph of the chest COMPARISON: Chest radiograph dated 08/03/2024. FINDINGS: Endotracheal tube tip is3 cm above the isabela. Stable bilateral lung volume loss with perihilar fibrosis and opacity. Stable fibrosis or scarring at the right lung base with tenting of the right hemidiaphragm.No pneumothorax. Stable blunting of the right costophrenic angle. Normal heart size. Left-sided aortic arch. Midline trachea. Degenerative changes of the shoulders and spine. IMPRESSION: 1. Endotracheal tube tip is 3 cm above the isabela. 2. Stable lung volume loss with perihilar opacities favoring fibrosis or scarring. 3. Stable blunting of the right costophrenic angle could be related to small effusion versus atelectasis or pleural thickening. Electronically signed by Milton Delgado 08-04-2024 5:17 PM
[2024-08-04] MEDS: PROPOFOL BOLUS FROM BAG IV PRN (17:35)
[2024-08-04] MEDS ORDERED: LORazepam 1 MG TAB PO PRN (17:36)
[2024-08-04 18:08] LABS: iSTAT Allen Test Pass; iSTAT Art Bld Gas pCO2 Correct 53 mmHg (35-46); iSTAT Art Bld Gas pH Corrected 7.409 (7.35-7.45); iSTAT Arterial Blood Gas HCO3 33 meg/L (19-24); iSTAT Arterial Blood Gas pCO2 51 mmHg (35-46); iSTAT Arterial Blood Gas pH 7.42 (7.35-7.45); iSTAT Arterial Blood Gas pO2 52 mmHg (80-95); iSTAT Arterial Blood Gas pO2 C 54; iSTAT Carbon Dioxide 35 mmol/L (24-31); iSTAT FiO2 100 %; iSTAT Hematocrit 38 % (37-47); iSTAT Hemoglobin 12.9 g/dl (12.0-16.0); iSTAT Sample Type Arterial; iSTAT Site R Radial; iSTAT Sodium 138 mmol/L (135-144); iSTAT SpO2 96
[2024-08-04 19:04] LABS: BUN Creatinine Ratio 44.7 (10-20); Calcium 8.9 mg/dl (8.6-10.3); Creatinine Clr Calc Pharmacy 96.2 ml/min; Potassium 4.1 mmol/L (3.5-5.1)
[2024-08-04 19:18] LABS: Troponin I High Sensitivity 407.5 pg/ml (0-14)
[2024-08-04] MEDS ORDERED: Nursing to Pharmacy Communication SCH (20:30)
[2024-08-04] MEDS: NOREPINEPHRINE/D5W 4 MG/250 ML PLCT IV SCH ×2 (21:15→23:06)
--- NOTE | 2024-08-04 21:30 | XRay Report ---
EXAM: XR KUB/Abdomen 1 view CLINICAL HISTORY: OG tube placement TECHNIQUE: X-ray images of the abdomen were obtained in AP view. COMPARISON: No prior studies are available for comparison. FINDINGS: Suboptimal image with non-exposure of the lower abdomen. The nasogastric (orogastric) tube tip appears to be projecting over the left lower abdominopelvic cavity with its tip likely at the right paramedian location in the mid abdomen, which could be due to a redundant/ptotic stomach or others. Gas Pattern: The demonstrated/exposed bowel gas pattern appears unremarkable. Radiopaque densities are identified in the right upper abdominal quadrant artefactual / stones. Degenerative changes were identified in the visualized spine. IMPRESSION: The nasogastric (orogastric) tube tip appears to be projecting over the left lower abdominopelvic cavity, with its tip likely at the right paramedian location in the mid abdomen which could be due to a redundant/ptotic stomach or others. No demonstrated signs of bowel obstruction in the exposed field. Electronically signed by Marcos Olivares 08-04-2024 8:58 PM
[2024-08-04] MEDS: traZODone HCL 100 MG TAB PO SCH (22:00)
[2024-08-04] MEDS: PHENYLEPHRINE/NSS 25 MG/250 ML BAG IV SCH (23:59)
[2024-08-05 00:35] LABS: iSTAT Allen Test Pass; iSTAT Art Bld Gas pCO2 Correct 47 mmHg (35-46); iSTAT Art Bld Gas pH Corrected 7.469 (7.35-7.45); iSTAT Arterial Blood Gas HCO3 34 meg/L (19-24); iSTAT Arterial Blood Gas pCO2 45 mmHg (35-46); iSTAT Arterial Blood Gas pH 7.49 (7.35-7.45); iSTAT Arterial Blood Gas pO2 185 mmHg (80-95); iSTAT Arterial Blood Gas pO2 C 191; iSTAT Carbon Dioxide 35 mmol/L (24-31); iSTAT FiO2 60 %; iSTAT Hematocrit 37 % (37-47); iSTAT Hemoglobin 12.6 g/dl (12.0-16.0); iSTAT Potassium 3.6 mmol/L (3.3-5.0); iSTAT Sample Type Arterial; iSTAT Site L Radial; iSTAT Sodium 137 mmol/L (135-144); iSTAT SpO2 96
[2024-08-05 03:29] LABS: Basophils # (auto) 0.01 K/uL (0.00-0.20); Basophils % (auto) 0.1 %; Eosinophils # (auto) 0.02 K/uL (0.00-0.50); Eosinophils % (auto) 0.2 %; Hematocrit (blood only) 36.5 % (37.0-47.0); Hemoglobin 12.2 g/dl (12.0-16.0); Immature Granulocytes # (auto) 0.03 K/uL (0.01-0.20); Immature Granulocytes % (auto) 0.4 %; Lymphocytes % (auto) 23.5 %; Mean Corpuscular Hemoglobin 31.3 pg (25.0-34.0); Mean Corpuscular Hgb Conc 33.4 g/dL (32.0-36.0); Mean Corpuscular Volume 93.6 fL (80.0-100.0); Monocytes # (auto) 0.79 K/uL (0.11-0.59); Monocytes % (auto) 9.8 %; Neutrophils # (auto) 5.32 K/uL (1.40-6.50); Platelet Count 175 K/uL (130-400); RDW Coefficient of Variation 13.7 % (11.5-14.5); White Blood Count 8.07 K/ul (4.8-10.8)
[2024-08-05 04:01] LABS: BUN Creatinine Ratio 47.9 (10-20); Calcium 8.4 mg/dl (8.6-10.3); Creatinine Clr Calc Pharmacy 94.2 ml/min; Magnesium 1.9 mg/dl (1.7-2.4); Potassium 3.3 mmol/L (3.5-5.1)
[2024-08-05] MEDS ORDERED: SODIUM PHOSPHATE 3 MMOL/1 ML INFUSION IV STA (04:36)
[2024-08-05] MEDS: MAGNESIUM SULFATE / D5W 1 GM/100 ML BAG IV SCH (05:08)
[2024-08-05] MEDS: SODIUM PHOSPHATE 15 MMOL in SODIUM CHLORIDE 0.9% 250 ML IV ONE (05:08)
[2024-08-05] MEDS: POTASSIUM CHLORIDE 20 MEQ/15 ML UDC NG SCH (05:08)
[2024-08-05] MEDS: HEPARIN 25000 UNIT/500 ML 25,000 UNITS/500 ML BAG IV SCH (05:25)
[2024-08-05] MEDS: Heparin IV Adult Wt-Based Low-Dose *NO* INITIAL Bolus Protocol IV STA (05:31)
[2024-08-05 05:38] LABS: Partial Thromboplastin Time 26 Seconds (21-31); Prothrombin Time 10.6 Seconds (9.0-12.0)
[2024-08-05 05:53] LABS: iSTAT Allen Test Pass; iSTAT Art Bld Gas pCO2 Correct 38 mmHg (35-46); iSTAT Art Bld Gas pH Corrected 7.516 (7.35-7.45); iSTAT Arterial Blood Gas HCO3 30 meg/L (19-24); iSTAT Arterial Blood Gas pCO2 36 mmHg (35-46); iSTAT Arterial Blood Gas pH 7.53 (7.35-7.45); iSTAT Arterial Blood Gas pO2 62 mmHg (80-95); iSTAT Arterial Blood Gas pO2 C 66; iSTAT Carbon Dioxide 32 mmol/L (24-31); iSTAT FiO2 30 %; iSTAT Hematocrit 35 % (37-47); iSTAT Hemoglobin 11.9 g/dl (12.0-16.0); iSTAT Potassium 3.2 mmol/L (3.3-5.0); iSTAT Sample Type Arterial; iSTAT Site R Radial; iSTAT Sodium 137 mmol/L (135-144); iSTAT SpO2 91
[2024-08-05 06:37] LABS: Base Excess VBG 7.2 mEq/L; HCO3 VBG 33 mmol/L; Oxygen Saturation VBG 89.5 %; PCO2 VBG 51 mmHg (38-50); PO2 VBG 57 mmHg; pH VBG 7.42 (7.36-7.41)
--- NOTE | 2024-08-05 07:45 | XRay Report ---
EXAM: XR chest 1V portable CLINICAL HISTORY: eval tubes, lines and lung khan TECHNIQUE: An X-ray image of the chest is obtained in 1 AP projection. COMPARISON: comparison with the previous exam dated 08/04/2024. FINDINGS: Pulmonary Parenchyma: ETT is seen with its tip of about 1.1 cm from the isabela (need to be backward withdrawal). NG tube is seen with its tip below the left tegan diaphragm. Multiple bilateral irregular patchy and fibrotic opacities (stable). Bilateral hilar enlargement with perihilar opacity. Left apical hazziness. Tenting of the right hemidiaphragm with right basal atelectasis. Blunting of the right costophrenic angle suggesting right-sided minimal effusion/thickening Heart and Mediastinum: Heart size and shape are normal. No mediastinal widening or masses. No hilar or mediastinal lymphadenopathy. Bony Thorax: Bony thorax appears intact without fractures or deformities. Soft Tissues: Soft tissues overlying the chest wall are unremarkable. IMPRESSION: 1. ETT is about 1.1 cm from the isabela (needs to be backward withdrawal). 2. NG tube seen projecting left infra diaphragmatic. 3. Multiple bilateral irregular patchy and fibrotic opacities (stable). 4. Left apical haziness(stable). 5. Bilateral enlarged hilar shadows with para hilar irregular opacities with traction on both arden (stable). 6. Tenting of the right hemidiaphragm with right basal atelectasis (stable). 7. Bluting of the right costophrenic angle, possible effusion or thickening (stable). Electronically signed by Marcos Olivares 08-05-2024 07:44 AM
[2024-08-05 07:51] VITALS: RESP 19
--- NOTE | 2024-08-05 08:20 | Electrocardiogram Report ---
Test Reason : Blood Pressure : */* mmHG Vent. Rate : 100 BPM Atrial Rate : 100 BPM P-R Int : 126 ms QRS Dur : 86 ms QT Int : 346 ms P-R-T Axes : 85 114 76 degrees QTcB Int : 446 ms Normal sinus rhythm Right axis deviation Pulmonary disease pattern Inferior infarct , possibly acute Abnormal ECG When compared with ECG of 03-Aug-2024 05:37, ST elevation in Inferior leads now present Confirmed by Joe Melendez ([id number]) on 08/05/2024 8:19:44 AM Referred By: REFERRED SELF Confirmed By: Joe Melendez
--- NOTE | 2024-08-05 09:04 | XCELERA ---
[id number]
[2024-08-05] MEDS ORDERED: STAT IV Infusion **Titration per Protocol STA (09:09)
[2024-08-05] MEDS ORDERED: MoRPHine SULFATE 10 MG/0.5 ML UDP PO PRN (09:09)
[2024-08-05] MEDS: MoRPHine SULF 100 MG/100 ML BAG IV SCH (09:27)
[2024-08-05] MEDS: MoRPHine BOLUS from BAG IV PRN (09:45)
[2024-08-05] MEDS: LORazepam 2 MG/1 ML VIAL IV PRN (10:09)
[2024-08-05 10:21] VITALS: BP 76/47; PULSE 79; TEMP 100.8; O2SAT 91
--- NOTE | 2024-08-05 11:34 | Communication Note ---
Date of Service: August 05, 2024 I had a discussion with the patient's 2 daughters and outside of the patient room. We discussed the patient's goals of care and wishes. Family was very clear that the patient would not want to be continued on mechanical ventilation and would like to focus on comfort measures if she was critically ill as she is currently. The orders in the chart and goals of care have been changed to reflect the family and patient's wishes wishes to proceed with comfort measures only at this time.
--- NOTE | 2024-08-05 13:29 | Critical Care Progress Note ---
Date of Service August 05, 2024 Assessment & Plan (1) Acute on chronic respiratory failure with hypoxia and hypercapnia: (2) Influenza A: (3) Chronic pain: (4) Acute exacerbation of chronic obstructive pulmonary disease: (5) Demand ischemia: (6) End of life care: (7) Septic shock: Plan As mentioned previously, I had an extensive discussion with the patient's family outside the room regarding goals of care and her chronic medical issues and acute issues. Family indicated very clearly that the patient's wishes were to avoid intubation and mechanical ventilation and that she would want to be made comfort measures and compassionately extubated if she were in such a situation as she currently is. She has signs of septic shock, cardiogenic shock and severe ventilatory respiratory failure. We discussed options including continuing current management versus transitioning to comfort measures. Family has elected to pursue comfort measures and the patient was ultimately extubated on comfort measures only. Patient was discussed in multidisciplinary rounds. Patient also discussed with hospitalist service. Patient to be transferred out of ICU. CRITICAL CARE TIME I have personally spent 34 minutes of critical care time in the direct management of this patient. This is a life/limb threatening event. This includes time spent evaluating patient, direct bedside care, chart review, placing orders, interpretation of diagnostic studies, discussion with consultants, patient, and family members, as well as other required patient management activities. This time is exclusive of all separately billable procedures, and teaching time and separate from and in addition to any other critical care service time. Admission and Anticipated Discharge Date Admission Date: August 01, 2024 Subjective Patient with worsening hypotension this morning. Requiring high amounts of sedation for ventilator synchrony and patient comfort. Discussed extensively with patient's family outside of the room including patient's and 2 daughters regarding goals of care. Family indicated that the patient's wishes were to be comfort measures only at this time given worsening medical illness. Patient extubated to comfort measures only and currently on morphine infusion. Review of Systems Review of Systems: Unobtainable due to endotracheal tube and Unobtainable due to reduced consciousness Physical Exam Physical Exam: Constitutional: Patient intubated and in moderate distress. Eyes: Pupils are equal round and reactive to light. Conjunctivae are normal. Anicteric sclera. Ears nose, mouth and throat: Intubated. Neck: Trachea is midline. Visual inspection is normal. Respiratory: Diffuse expiratory wheezes. Cardiovascular: Regular rate and rhythm. No murmurs. Mild edema in the lower extremities. Gastrointestinal: Normal bowel sounds, soft, nontender and nondistended. No hepatosplenomegaly noted. Musculoskeletal: No cyanosis. Patient is able to move all extremities. Strength is 5 out of 5 in the upper and lower extremities. Skin: No rashes, warm dry and intact. Neurologic: No focal signs. Psychiatric: Intubated and sedated. Results & Data Results & Data Vital Signs (Past 12 Hours) Vital Signs Temp Pulse Resp BP Pulse Ox O2 Del Method FiO2 08/05/24 08:33 38.2 C H 79 19 91 08/05/24 08:30 76/47 L 08/05/24 08:21 38.2 C H 80 18 91 08/05/24 08:18 38.2 C H 80 19 91 08/05/24 08:00 80/51 L 08/05/24 08:00 40 08/05/24 07:57 38.2 C H 82 18 91 08/05/24 07:42 38.2 C H 89 18 91 08/05/24 07:30 104/62 08/05/24 07:27 38.1 C H 91 H 18 92 08/05/24 07:15 74 19 93 40 08/05/24 07:06 38.0 C H 74 18 92 08/05/24 07:00 84/53 L 08/05/24 06:57 37.9 C H 76 18 92 08/05/24 06:45 37.9 C H 79 18 92 08/05/24 06:43 37.9 C H 79 18 87/57 L 92 Mechanical Vent 40 08/05/24 06:38 18 80/48 L 92 Mechanical Vent 40 08/05/24 06:30 18 85/54 L 92 Mechanical Vent 40 08/05/24 06:00 38.0 C H 82 18 88/55 L 92 Mechanical Vent 40 08/05/24 05:37 18 40 08/05/24 04:05 88/57 L 08/05/24 03:31 38 C H 85 22 89/61 L 91 Mechanical Vent 30 08/05/24 03:30 30 08/05/24 03:02 38 C H 83 24 93/59 L 93 Mechanical Vent 40 08/05/24 02:50 73 22 93 30 08/05/24 02:30 38 C H 73 22 85/60 L 97 Mechanical Vent 40 08/05/24 01:30 38.1 C H 80 22 88/62 L 95 Mechanical Vent 40 Coding Level of Care Code 00835 CRITICAL CARE 1ST 30-74M Diagnoses Acute on chronic respiratory failure with hypoxia and hypercapnia J96.21; J96.22 Influenza A J10.1 Chronic pain G89.29 Acute exacerbation of chronic obstructive pulmonary disease J44.1 Demand ischemia I24.89 End of life care Z51.5 Septic shock A41.9; R65.21
--- NOTE | 2024-08-05 14:50 | Hospitalist Progress Note ---
Date of Service August 05, 2024 Assessment & Plan (1) Septic shock: (2) Influenza A: (3) Adrenal insufficiency: (4) Demand ischemia: Plan This patient is a 68-year-old female with a h/o severe COPD on home O2, myofascial pain syndrome, adrenal insufficiency, GERD, vitamin D deficiency, bronchiectasis, ambulatory dysfunction, HLD, anxiety/depression, postinflammatory pulmonary fibrosis, tobacco use disorder, sarcoidosis, and history of PE on Xarelto who p/w worsening SOB and cough, severe lethargy, hypoxia with POx in the 70s. Tested positive for Influenza A and had an aspiration event in ED, acutely decompensated, and was intubated by ED staff for airway protection. She then became hypotensive, with BP 65/43, and started on Levophed. She also suffered a stress-induced cardiomyopathy. #Septic shock/Adrenal insufficiency/Suspected Aspiration pneumonia/Influenza A/Acute on chronic respiratory failure with hypoxemia/COPD exacerbation With right sided PNA and chronic fibrosis changes on imaging. Possible aspiration or gram negative pneumonia in the setting of severe COPD with exacerbation and wheezing. She was intubated on admission and extubated on 08/04. She had to be reintubated on 08/04 for recurrent respiratory failure. She was treated with IV steroids, Tamiflu, and doxycycline as well as bronchodilators and pulmonary toilet. She remained on Levophed for blood pressure support. Her family decided to place her on comfort measures only and extubate on 08/05 on a morphine drip. She will be of provided a titratable morphine drip for shortness of breath or pain, and IV Ativan as needed for anxiety or agitation Will add atropine drops as needed for secretions Discontinue steroids and Levophed Continue supplemental O2 as needed for comfort Discontinue nebulizers excepted as needed DuoNeb Discontinue all lab draws and blood sugar checks #Demand ischemia-Initial troponin 31.0-> 53.9->24->19. ECHO showed EF 55- 60%,elevated RVSP,mild LVH, mild MR. ECG on AM of 08/[address] elevation in inferior leads, however serial trop went down to 19 and repeat ECG improved. ECG again showed worsening ST elevation in the inferior leads on 08/04. Repeat troponin trended upward to 1700 and bedside echocardiogram showed signs consistent with Takotsubo cardiomyopathy. Heparin drip was started but family decided to extubate to comfort measures-no further workup or treatment needed Can use morphine as needed for any chest pain #History of pulmonary embolism- Discontinue anticoagulation on comfort measures #Adrenal insufficiency-typically on po hydrocortisone at home. Solu-Medrol used as treatment for pulmonary status, will now discontinue all steroids #GERD-can discontinue PPI once comfort measures #Anxiety-continue prn lorazepam, but discontinue home escitalopram on comfort measures #HLD-discontinue statin on comfort measures DVT proph-discontinue all anticoagulation Dispo-placed on comfort measures only on 2, downgrade to medical/surgical unit, expect patient will pass away in the hospital within the next 2 to 3 days. Comfort given to family at the bedside. Admission and Anticipated Discharge Date Admission Date: August 01, 2024 Subjective Patient was reintubated yesterday and then patient was extubated today and placed on comfort measures by visual communications instructor. I discussed her care with the visual communications instructor as well as nursing staff and multiple family members at the bedside. She was started on a morphine drip and is comfortable when I saw her. She is drowsy but briefly wakes up and denies pain or shortness of breath. Physical Exam Constitutional: + lethargic (Sedated); no acute distress Respiratory: normal respiratory effort; no cough Auscultation: + wheezes (Diffuse expiratory but proved from previous); no crackles and no rhonchi Cardiovascular: Rate/Rhythm: regular rate and regular rhythm Heart Sounds: no murmur Extremities: no edema Results & Data Results & Data Vital Signs (Past 12 Hours) Vital Signs Temp Pulse Resp BP Pulse Ox O2 Del Method FiO2 08/05/24 08:33 38.2 C H 79 19 91 08/05/24 08:30 76/47 L 08/05/24 08:21 38.2 C H 80 18 91 08/05/24 08:18 38.2 C H 80 19 91 08/05/24 08:00 80/51 L 08/05/24 08:00 40 08/05/24 07:57 38.2 C H 82 18 91 08/05/24 07:42 38.2 C H 89 18 91 08/05/24 07:30 104/62 08/05/24 07:27 38.1 C H 91 H 18 92 08/05/24 07:15 74 19 93 40 08/05/24 07:06 38.0 C H 74 18 92 08/05/24 07:00 84/53 L 08/05/24 06:57 37.9 C H 76 18 92 08/05/24 06:45 37.9 C H 79 18 92 08/05/24 06:43 37.9 C H 79 18 87/57 L 92 Mechanical Vent 40 08/05/24 06:38 18 80/48 L 92 Mechanical Vent 40 08/05/24 06:30 18 85/54 L 92 Mechanical Vent 40 08/05/24 06:00 38.0 C H 82 18 88/55 L 92 Mechanical Vent 40 08/05/24 05:37 18 40 08/05/24 04:05 88/57 L 08/05/24 03:31 38 C H 85 22 89/61 L 91 Mechanical Vent 30 08/05/24 03:30 30 08/05/24 03:02 38 C H 83 24 93/59 L 93 Mechanical Vent 40 Laboratory Results CBC, BMP, magnesium, phosphorus, troponin, blood cultures, sputum culture reviewed PG Care Time/CCT Total # of Minutes Spent Total Time Spent with Patient: Total time spent is greater than 50% in coordination of care (as documented) at patient's floor/unit and/or counseling patient: Coding Level of Care Code 28287 SUB INP/OBS CARE 3/50MIN Diagnoses Septic shock A41.9; R65.21 Influenza A J10.1 Adrenal insufficiency E27.40 Demand ischemia I24.89
[2024-08-06] MEDS ORDERED: HYDROCORTISONE 10 MG TAB PO SCH ×2 (09:00→14:00)
--- NOTE | 2024-08-06 13:31 | Hospitalist Progress Note ---
Date of Service August 06, 2024 Assessment & Plan (1) Septic shock: Plan: Present on admission. Appeared to be associated with influenza A (2) Influenza A: Plan: Present on admission. Comfort measures only at this time. (3) Adrenal insufficiency: Plan: Steroid-dependent. Comfort measures only at this time (4) Demand ischemia: Plan: No evidence of acute ID on admission. No acute EKG changes. Plan Comfort measures only at this time. Continue morphine continuous infusion. Family is at the bedside. Admission and Anticipated Discharge Date Admission Date: August 01, 2024 Subjective Awake but lethargic and nonverbal with me. Family is at the bedside. She lives alone and is not a candidate for home hospice as the family is unable to stay with her 23/01. 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 Review of Systems 2 Review of Systems: The patient is unable to answer any questions regarding review of systems at this time Physical Exam 2 Physical Exam: General-awake but lethargic. Nonverbal HEENT-head atraumatic and normocephalic, pupils equal and reactive to light Neck-no lymphadenopathy or thyromegaly, trachea midline Chest-diminished breath sounds bilaterally. Poor inspiratory effort. No obvious rales or wheezing Cardiac-regular rate and rhythm, normal S1 and S2 Abdomen-hypoactive bowel sounds but present. No ascites. Extremities-no cyanosis, clubbing, or edema Neuro-no apparent focal motor deficits. Patient unable to participate in full neurologic exam Psych-cannot assess Results & Data Results & Data Vital Signs (Past 12 Hours) Vital Signs O2 Del Method O2 Flow Rate 08/06/24 07:37 Nasal Cannula 4 Laboratory Results 08/05/24 03:09 08/05/24 03:09 PG Care Time/CCT Total # of Minutes Spent Total Time Spent with Patient: Total time spent is greater than 50% in coordination of care (as documented) at patient's floor/unit and/or counseling patient: Coding Level of Care Code 49510 SUB INP/OBS CARE 2/35MIN Diagnoses Septic shock A41.9; R65.21 Influenza A J10.1 Adrenal insufficiency E27.40 Demand ischemia I24.89
[2024-08-07] MEDS: ATROPINE SULFATE 1% OP SOLN 5 ML BTL PO PRN (02:02)
[2024-08-07] MEDS: ONDANSETRON INJ 2 MG/ML 2 ML VIAL IV PRN (15:13)
--- NOTE | 2024-08-07 16:48 | Hospitalist Progress Note ---
Date of Service August 07, 2024 Assessment & Plan (1) Septic shock: Plan: Present on admission. Appeared to be associated with influenza A (2) Influenza A: Plan: Present on admission. Comfort measures only at this time. (3) Adrenal insufficiency: Plan: Steroid-dependent. Glucocorticoids have been discontinued. Comfort measures only at this time (4) Demand ischemia: Plan: No evidence of acute NC on admission. No acute EKG changes. Plan Comfort measures only at this time. Continue morphine continuous infusion. Family is at the bedside. Admission and Anticipated Discharge Date Admission Date: August 01, 2024 Subjective The patient remains unresponsive on a morphine drip. Family is in attendance. Comfort measures only at this time Review of Systems 2 Review of Systems: The patient is unable to answer any questions regarding review of systems at this time Physical Exam 2 Physical Exam: General-unresponsive. HEENT-head atraumatic and normocephalic, pupils equal Neck-no lymphadenopathy or thyromegaly, trachea midline Chest-diminished breath sounds bilaterally. Poor inspiratory effort. No obvious rales or wheezing Cardiac-regular rate and rhythm, normal S1 and S2 Abdomen-hypoactive bowel sounds but present. No ascites. Extremities-no cyanosis, clubbing, or edema Neuro-cannot assess Psych-cannot assess Results & Data Results & Data Vital Signs (Past 12 Hours) Vital Signs O2 Del Method 08/07/24 11:17 Nasal Cannula Laboratory Results 08/05/24 03:09 08/05/24 03:09 PG Care Time/CCT Total # of Minutes Spent Total Time Spent with Patient: Total time spent is greater than 50% in coordination of care (as documented) at patient's floor/unit and/or counseling patient: Coding Level of Care Code 00005 SUB INP/OBS CARE 2/35MIN Diagnoses Septic shock A41.9; R65.21 Influenza A J10.1 Adrenal insufficiency E27.40 Demand ischemia I24.89
[2024-08-08] MEDS: MoRPHine BOLUS from BAG IV PRN (09:26)
--- NOTE | 2024-08-08 15:34 | Hospitalist Progress Note ---
Date of Service August 08, 2024 Assessment & Plan (1) Septic shock: Plan: Present on admission. Appeared to be associated with influenza A (2) Influenza A: Plan: Present on admission. Comfort measures only at this time. (3) Adrenal insufficiency: Plan: Steroid-dependent. Glucocorticoids have been discontinued. Comfort measures only at this time (4) Demand ischemia: Plan: No evidence of acute GA on admission. No acute EKG changes. Plan Comfort measures only at this time. Continue morphine continuous infusion. Family is at the bedside. Admission and Anticipated Discharge Date Admission Date: August 01, 2024 Subjective Nursing staff states the patient is agitated at times. Morphine drip has been uptitrated. Family remains at the bedside. Review of Systems 2 Review of Systems: The patient is unable to answer any questions regarding review of systems at this time Physical Exam 2 Physical Exam: General-unresponsive. HEENT-head atraumatic and normocephalic, pupils equal Neck-no lymphadenopathy or thyromegaly, trachea midline Chest-diminished breath sounds bilaterally. Poor inspiratory effort. No obvious rales or wheezing Cardiac-regular rate and rhythm, normal S1 and S2 Abdomen-hypoactive bowel sounds but present. No ascites. Extremities-no cyanosis, clubbing, or edema Neuro-cannot assess Psych-cannot assess Results & Data Results & Data Vital Signs (Past 12 Hours) Vital Signs O2 Del Method O2 Flow Rate 08/08/24 10:33 Nasal Cannula 4 Laboratory Results 08/05/24 03:09 08/05/24 03:09 PG Care Time/CCT Total # of Minutes Spent Total Time Spent with Patient: Total time spent is greater than 50% in coordination of care (as documented) at patient's floor/unit and/or counseling patient: Coding Level of Care Code 32033 SUB INP/OBS CARE 2/35MIN Diagnoses Septic shock A41.9; R65.21 Influenza A J10.1 Adrenal insufficiency E27.40 Demand ischemia I24.89
[2024-08-09] MEDS: LORazepam 2 MG/1 ML VIAL IV PRN (05:32)
--- NOTE | 2024-08-09 15:35 | Hospitalist Progress Note ---
Date of Service August 09, 2024 Assessment & Plan (1) Septic shock: Plan: Present on admission. Appeared to be associated with influenza A (2) Influenza A: Plan: Present on admission. Comfort measures only at this time. (3) Adrenal insufficiency: Plan: Steroid-dependent. Glucocorticoids have been discontinued. Comfort measures only at this time (4) Demand ischemia: Plan: No evidence of acute [place] on admission. No acute EKG changes. Plan Comfort measures only at this time. Continue morphine continuous infusion. Family is at the bedside. Admission and Anticipated Discharge Date Admission Date: August 01, 2024 Subjective Unresponsive. Comfort measures only. Multiple family members are at the bedside. She remains on a morphine drip. Review of Systems Review of Systems: The patient is unable to answer any questions regarding review of systems at this time Physical Exam Physical Exam: General-unresponsive. HEENT-head atraumatic and normocephalic, pupils equal Neck-no lymphadenopathy or thyromegaly, trachea midline Chest-diminished breath sounds bilaterally. Poor inspiratory effort. No obvious rales or wheezing Cardiac-tachycardic regular rate and rhythm, normal S1 and S2 Abdomen-hypoactive bowel sounds but present. No ascites. Extremities-no cyanosis, clubbing, or edema Neuro-cannot assess Psych-cannot assess PG Care Time/CCT Total # of Minutes Spent Total Time Spent with Patient: Total time spent is greater than 50% in coordination of care (as documented) at patient's floor/unit and/or counseling patient: Coding Level of Care Code 53562 SUB INP/OBS CARE 2/35MIN Diagnoses Septic shock A41.9; R65.21 Influenza A J10.1 Adrenal insufficiency E27.40 Demand ischemia I24.89
--- NOTE | 2024-08-09 16:24 | Death Pronouncement Note ---
Date of Service August 09, 2024 Pronouncement Note Admission Date August 01, 2024 Date and Time of Date of : 08/09/24 Time of : 15:50 Preliminary Cause of (1) Acute on chronic respiratory failure with hypoxia and hypercapnia: (2) Septic shock: (3) Influenza A: (4) Decompensated COPD with exacerbation (chronic obstructive pulmonary disease): Summary The patient was treated this admission for acute on chronic respiratory failure with exacerbation of her underlying COPD along with septic shock from influenza A. She was on a ventilator transiently and after extubation stated that she did not want to be reintubated and she was subsequently made comfort measures only. Family was in attendance throughout her last days. She was treated with a morphine continuous infusion to prevent any sensation of shortness of breath or pain. The patient peacefully with family in attendance at the bedside Additional Data Attending physician: Johnnie Verde MD Coding Level of Care Code 25000 IN/OBS DISCH 30 MIN/LESS Diagnoses Acute on chronic respiratory failure with hypoxia and hypercapnia J96.21; J96.22 Septic shock A41.9; R65.21 Influenza A J10.1 Decompensated COPD with exacerbation (chronic obstructive pulmonary disease) J44.1
--- NOTE | 2024-08-09 16:27 | Discharge Summary ---
Discharge Summary Date of Service August 09, 2024 Principal Dx & Hospital Course #1 = Principal Diagnosis (1) Acute on chronic respiratory failure with hypoxia and hypercapnia: The patient was intubated earlier this admission and after extubation stated she did not want to be reintubated again. Her acute on chronic respiratory rate was caused by exacerbation of her COPD by the influenza A and septic shock. (2) Septic shock: Present on admission. Appeared to be associated with influenza A (3) Influenza A: Present on admission. Comfort measures only at this time. (4) Decompensated COPD with exacerbation (chronic obstructive pulmonary disease): Previously intubated this admission. The patient has stated that she did not want to be reintubated if her condition worsens. She was subsequently made comfort measures only Plan Comfort measures only at this time. Continue morphine continuous infusion. Family is at the bedside. Admission HPI Per Admitting Provider The patient is a 68-year-old female with a past medical history including COPD, myofascial pain syndrome, adrenal insufficiency, GERD, vitamin D deficiency, bronchiectasis, ambulatory dysfunction, hyperlipidemia, anxiety depression, postinflammatory pulmonary fibrosis, tobacco use disorder, sarcoidosis, and history of PE on Xarelto. The patient presented to the emergency department for evaluation of worsening difficulty breathing that began earlier in the day, having worsened enough throughout the day, that her called 911. EMS reports when they arrived, the patient was very lethargic, and oxygen saturation was in the 70s. She was given Solu-Medrol, and a DuoNeb en route. While in the emergency department, the patient did appear to have a possible aspiration event, acutely decompensated, and was intubated by ED staff for airway protection. Discharge Exam Not applicable. The patient Discharge Plan Discharge Items Patient Disposition: Reason For Visit: SEPTIC SHOCK, INFLUENZA A Discharge Diagnosis: Acute on chronic respiratory failure with hypoxia and hypercapnia, acute exacerbation COPD, septic shock, influenza A Follow-up/Referrals: Nichole Farfan CRNP [Primary Care Provider] - Medications and DC Order Prescriptions: No Action (DME) Therapist Evaluation for Power Mobility See Rx Instructions .Route .MEDSUPPLY Qty: 1 0RF Rx Instructions: Evaluate patient for necessity of power chair (DME) blood pressure monitor Kit See Rx Instructions .Route Qty: 1 0RF Rx Instructions: DIGITAL BLOOD PRESSURE MONITOR FOR UPPER ARM; CHECK DAILY AND PRN ondansetron 4 mg tablet,disintegrating 4 mg PO Q8 PRN (Reason: nausea) Qty: 20 1RF Rx Instructions: Take as needed for nausea trazodone 100 mg tablet 100 mg PO HS Qty: 90 3RF escitalopram oxalate 10 mg tablet 10 mg PO QAM Qty: 90 3RF albuterol sulfate [Ventolin HFA] 90 mcg/actuation HFA aerosol inhaler 2 puff inhalation QID PRN (Reason: Shortness Of Breath Or Wheezing) Qty: 18 11RF Xarelto 20 mg tablet 20 mg PO HS Qty: 30 5RF folic acid 1 mg tablet 1 mg PO DAILY Qty: 30 2RF gabapentin 300 mg capsule 300 mg PO BID Qty: 180 1RF hydrocortisone 5 mg tablet See Rx Instructions PO TID Qty: 180 5RF Rx Instructions: Take 15mg by mouth in the AM (5-6am), then taken 5mg in the afternoon (1- 2pm). In times of illness or severe emotional stress, double or triple the dose. benzonatate 100 mg capsule 100 mg PO TID PRN (Reason: cough) Qty: 30 1RF albuterol sulfate 2.5 mg /3 mL (0.083 %) solution for nebulization 2.5 mg INHALATION QID PRN (Reason: Shortness Of Breath Or Wheezing) Qty: 270 5RF rosuvastatin 5 mg tablet 5 mg PO QAM Qty: 90 3RF lorazepam [Ativan] 1 mg tablet 1 mg PO DAILY PRN (Reason: Anxiety) Qty: 30 2RF Anoro Ellipta 62.5-25 mcg/actuation blister with device 1 inh inhalation QAM Qty: 60 5RF pantoprazole 40 mg tablet,delayed release (DR/EC) 40 mg PO QAM Qty: 90 3RF (DME) Power Wheelchair Device See Rx Instructions .Route Qty: 1 0RF Rx Instructions: As directed (DME) Flutter Valve Device See Rx Instructions .ROUTE .MEDSUPPLY Qty: 1 0RF Rx Instructions: QID Solu-Cortef Act-O-Vial (PF) 100 mg/2 mL recon soln 75 mg IM ONCE PRN (Reason: severe adrenal insufficiency) Qty: 1 1RF tizanidine [Zanaflex] 4 mg tablet 4 mg PO BID acetaminophen [Tylenol Extra Strength] 500 mg tablet 1,000 mg PO TID PRN (Reason: pain) Pulmicort Flexhaler 90 mcg/actuation aerosol powdr breath activated INHALATION Admission Data Admit Date/Time: 08/01/24 00:22 Attending Provider: Johnnie Verde Admit Provider: Basilio Cary Primary Care Provider: Nichole Farfan Other Providers: Cyndi Guillaume; Basilio Cary Hospital Stay Data Consultations 07/31/24 22:25 Consult Telecommunicator Supervisor Stat 07/31/24 23:01 ED Decision to Admit Stat 08/01/24 01:35 Consult Telecommunicator Supervisor Routine Total Time Total Time Spent Total Time Spent (In Minutes): 45 minutes Coding Level of Care Code 52505 IN/OBS DISCH 30 MIN/LESS Diagnoses Acute on chronic respiratory failure with hypoxia and hypercapnia J96.21; J96.22 Septic shock A41.9; R65.21 Influenza A J10.1 Decompensated COPD with exacerbation (chronic obstructive pulmonary disease) J44.1
== END 2024-08-09 17:51 | disposition expired | DRG 871 ==
LOC: ED 21:47 → SUATTDRO 08-01 00:22 → 1E 08-01 00:22 → 3E 08-05 16:59